=== PATIENT | male | born 1960 | race Caucasian/White ===

== ENCOUNTER 2023-03-14 09:20 | Outpatient (OUT) | payer OTHER, SELFPAY ==
--- NOTE | 2023-03-14 09:40 | PM.CN ---
Consult Note: HPI Data of Consult Patient: known to practice within the last 3 years Consult date: 03/14/23 Requesting Physician: OSCAR YU NP Primary Care Provider: Romario Bronson MD Consult Narrative Narrative: He is here for f/u of back pain . He saw neurosurgeon since last visit, approximately 1 month ago. Consult notes not available for my review. He also saw ortho who is doing hip injection 04/18/23. Loss of bladder control x3 on 03/09/23, but no episodes since. He states he was doing a lot of bending over before the incontinence occurred. Medication regimen is assisting patient with ability to complete ADLs. We discussed getting LS MRI d/t bout of incontinence and he is agreeable. he denies saddle anesthesia. Main pain is lumbar vertebral area. He does have numbness and cold feeling bilat legs that he states is not new. No saddle anesthesia. cc:: CC: OSCAR YU NP Review of Systems ROS Status of ROS 10 or more systems reviewed and unremarkable except as noted in history and below Musculoskeletal Reports: back pain Exam Constitutional Documenting provider has reviewed patient's vital signs: yes Common normals: no apparent distress, average body habitus, oriented x3, healthy appearing, alert and well nourished General appearance: cooperative and well developed Orientation/consciousness: Yes awake, Yes oriented to person, Yes oriented to place, Yes oriented to time and Yes confused HENVA Common normals: normocephalic, nasal mucous membranes and turbinates normal and moist oral mucous membranes Respiratory Common normals: normal respiratory effort, no retractions and no use of accessory muscles Effort & inspection: able to speak in complete sentences and symmetric chest movement Back & Pelvis Lumbar spine/lower back: normal to inspection, lumbar ROM normal, pain with ROM, lumbar spinal tenderness, straight leg raise positive right and straight leg raise positive left Extremity Common normals: normal to inspection, normal capillary refill and no pedal edema Other: muscle strength bilat LE 5/5 with intact sensation. Assessment and Plan Assessment and Plan (1) Lumbar radiculopathy: (2) Lumbar stenosis: (3) Incontinence of urine: Plan Lumbar MRI to r/o cauda equina, refill percocet, try tumeric OTC, narcan rx
== END 2023-03-14 09:21 | disposition home or self-care (01) ==
PROVIDERS: PCP Family Medicine; Visit Provider Nurse Practitioner
DX: M54.16 Radiculopathy, lumbar region (principal); M48.061 Spinal stenosis, lumbar region without neurogenic claudication; R32 Unspecified urinary incontinence
CPT/HCPCS: G0463

== ENCOUNTER 2023-03-28 13:32 | Outpatient (OUT) | payer OTHER, SELFPAY ==
--- NOTE | 2023-03-28 13:39 | MR_ITS ---
[address] [address] Patient Name: AJ MORA MRN: [id number] date: 1960 Sex: M Assigned Patient Location: MRI Current Patient Location: MRI Accession/Order Number: [id number] Exam Date: 03/28/2023 13:45 Report Date: 03/30/2023 08:05 At the request of: OSCAR YU Procedure: MR lumbar spine wo con EXAMINATION: MR lumbar spine wo con HISTORY: Lumbar stenosis, urinary incontinence COMPARISON: No relevant comparison available. TECHNIQUE: A variety of imaging planes and parameters were utilized for visualization of suspected pathology. FINDINGS: For the purposes of numbering, sagittal T2 image # 8 extends from the T11 vertebral body superiorly to the S2-S3 level inferiorly. PARASPINAL AREA: Normal with no visible mass. BONES: Normal alignment with no acute fracture or spondylolisthesis. Very heterogeneous appearance of the vertebral bodies likely related to aging and/or degenerative changes. Moderate diffuse spondylosis and facet osteoarthropathy. Posterior decompression L2-L5 CORD/CAUDA EQUINA: Normal caliber, contour, and signal intensity. DISC LEVELS: 12-L1: Moderate degenerative disc disease is present without visible neural impingement. L1-L2: Moderate disc space narrowing and disc desiccation. Moderate posterior disc/osteophyte complex with broad-based disc herniation the protrusion type extending up to 4.6 mm. No central canal or left foraminal stenosis. Mild to moderate narrowing of the right neural foramen best seen on sagittal image 12 L2-L3: Moderate to severe disc space narrowing and disc desiccation. Moderate posterior disc/osteophyte complex. No central or foraminal stenosis L3-L4: Disc collapse with endplate sclerosis. Moderate diffuse disc/osteophyte complex. Posterior disc herniation of the protrusion type extending up to 5.6 mm sagittal image #8. No central canal stenosis. Moderate to severe right and moderate left foraminal stenosis L4-L5: Moderate disc space narrowing and disc desiccation. Posterior broad-based disc herniation the protrusion type extending posteriorly up to 4.1 mm, sagittal image #7. No central canal stenosis. Moderate to severe right and mild left foraminal stenosis L5-S1: Moderate degenerative disc disease is present without visible neural impingement. IMPRESSION: Extensive degenerative changes resulting in foraminal stenosis at multiple levels as detailed above Electronically authenticated by: LUIS CARLOS ENCARNACION Date: 03/30/2023 08:05
== END 2023-03-28 13:33 | disposition home or self-care (01) ==
LOC: MRI 13:33
PROVIDERS: PCP Family Medicine; Visit Provider Nurse Practitioner
DX: M48.061 Spinal stenosis, lumbar region without neurogenic claudication (principal); R32 Unspecified urinary incontinence
CPT/HCPCS: 72148

== ENCOUNTER 2023-05-21 11:14 | Outpatient (OUT) | payer OTHER, SELFPAY ==
--- NOTE | 2023-05-21 12:52 | P.CN_ITS ---
Consult Note: HPI Data of Consult Patient: known to practice within the last 3 years Requesting Physician: Isabelle Maria NP Primary Care Provider: Romario Bronson MD Consult Narrative Reason for consult: f/u chronic low back pain with bilateral leg weakness/numbness Narrative: Noel Alva is a pleasant 62 year old male that presents to our office for evaluation and management of chronic low back pain with bilateral leg weakness/numbness. Patient historically has had facet blocks in the cervical and lumbar spine, as well as numerous FARHAN in lumbar region. Last FARHAN to lumbar was 09/26. Patient continues to follow with Dr Chappell neurosurgeon for chronic low back pain with bilateral leg weakness/numbness. Patient would like to discuss i njections at todays visit. cc:: CC: Isabelle Maria NP Review of Systems ROS Status of ROS 10 or more systems reviewed and unremarkable except as noted in history and below Musculoskeletal Reports: back pain and muscle weakness Hematologic/Lymphatic Reports: easy bruising (hx anemia, encouraged follow up with PCP) [facility] Medical History (Updated 05/21/23 @ 13:02 by Isabelle Maria NP) Surgical History Meds Home Medications and Allergies Home Medications Medication Instructions Recorded Confirmed Type albuterol sulfate 90 mcg/actuation 1 inh inhalation Q6H 03/14/23 03/14/23 History aerosol inhaler (ProAir HFA) aspirin 81 mg tablet,delayed 81 mg PO DAILY 03/14/23 03/14/23 History release atorvastatin 40 mg tablet 40 mg PO DAILY 03/14/23 03/14/23 History cholecalciferol (vitamin D3) 50 50 mcg PO DAILY 03/14/23 03/14/23 History mcg (2,000 unit) capsule ferrous sulfate 325 mg (65 mg 325 mg PO BID 03/14/23 03/14/23 History iron) tablet (Niels-Time) isosorbide mononitrate 30 mg 30 mg PO DAILY 03/14/23 03/14/23 History tablet,extended release 24 hr lisinopril 40 mg tablet 40 mg PO DAILY 03/14/23 03/14/23 History meloxicam 15 mg tablet 15 mg PO DAILY 03/14/23 03/14/23 History metoprolol tartrate 25 mg tablet 25 mg PO BID 03/14/23 03/14/23 History nitroglycerin 0.4 mg sublingual 0.4 mg sublingual Q5M PRN chest 03/14/23 03/14/23 History tablet (Nitrostat) pain oxycodone-acetaminophen 5 mg-325 1 tab PO TID 03/14/23 03/14/23 History mg tablet (Endocet) pantoprazole 40 mg tablet,delayed 40 mg PO DAILY 03/14/23 03/14/23 History release (Protonix) pregabalin 100 mg capsule (Lyrica) 100 mg PO BID 03/14/23 03/14/23 History sucralfate 1 gram tablet (Carafate) 1 g PO Q6H 03/14/23 03/14/23 History tizanidine 4 mg capsule 4 mg PO .HS PRN muscle spasticity 03/14/23 03/14/23 History oxycodone-acetaminophen 5 mg-325 1 tab PO TID PRN pain #90 tabs 05/12/23 Rx mg tablet (Percocet) pregabalin 50 mg capsule (Lyrica) 50 mg PO BID #60 caps 05/21/23 Rx Allergies Allergy/AdvReac Type Severity Reaction Status Date / Time No Known Drug Allergies Allergy Verified 03/14/23 13:38 Exam Constitutional Common normals: no apparent distress, average body habitus, oriented x3, healthy appearing, alert and well nourished General appearance: cooperative [facility] Common normals: normocephalic Head and scalp: normocephalic Mouth: oral and palatal mucosa normal Eye Common normals: PERRL Pupil: PERRL Neck & C-Spine Common normals: full ROM General: normal visual inspection Cervical spine: pain with cervical ROM Chest Common normals: inspection of chest normal Respiratory Common normals: normal respiratory effort, no retractions and no use of accessory muscles Back & Pelvis Common normals: thoracic and lumbar spine normal to inspection and no thoracic nor lumbar tenderness Lumbar spine/lower back: ROM limited, pain with ROM (positive facet loading bilaterally L>R), straight leg raise positive right and straight leg raise positive left Sacroiliac joints: SI joints normal Extremity Common normals: normal to inspection and full ROM Right lower extremity: lower leg Left lower extremity: lower leg Other: patient has 3/5 strength in RLE 4/5 strength in LLE. Patient reports current weakness bilaterally and numbness. Equal sensation bilaterally, reflexes intact. No change in skin color or temp in BLE Neuro Common normals: oriented x3, CN's II-XII intact bilaterally, moves all extremities, no focal motor deficits, no sensory deficits noted and deep tendon reflexes 2+ bilaterally Sensorium/orientation: alert Speech: speech normal Gait (neuro): antalgic Motor exam: no movement abnormalities noted and strength abnormal Psych Common normals: mental status grossly normal, thought process normal, co operative, affect normal, speech normal and activity/motor behavior normal Speech: normal speech Thought process: normal thought process Assessment and Plan Assessment and Plan (1) Lumbar stenosis: (2) Lumbar radiculopathy: (3) Chronic pain syndrome: Assessment and Plan: refill and continue lyrica 50mg BID The patient was advised that U.S. Food and Drug Administration (FDA) is warning that respiratory depression may occur in patients using gabapentin (Neurontin, Gralise, Horizant) or pregabalin (Lyrica, Lyrica CR) who have respiratory risk factors. These include the use of opioid pain medicines and other drugs that depress the central nervous system, and conditions such as chronic obstructive pulmonary disease (COPD) that reduce lung function. The elderly are also at higher risk.? (4) intermediate (current) use of opiate analgesic: Assessment and Plan: I have checked an [place]AR[place] report on this patient today and there are no aberrancies noted in the prescribing history.?? A drug screen was completed and reviewed within the last year, and if there has not been a drug screen completed we ordered one today to monitor higher risk, state monitored pain medication use. Plan Patient to continue to f/u with Dr Chappell, from conversation with pt he was not a surgical candidate previously this year Proceed with bilateral L4-5 FARHAN based on todays examination, patient cannot describe a consistent radicular pattern and I have reviewed most recent MRI findings which did not include any red flag findings f/u after FARHAN will consider repeating lumbar facet RFAs in the future if patient continues to have axial back pain
== END 2023-05-21 11:15 | disposition home or self-care (01) ==
PROVIDERS: PCP Family Medicine; Visit Provider Nurse Practitioner
DX: M54.16 Radiculopathy, lumbar region (principal); M48.061 Spinal stenosis, lumbar region without neurogenic claudication; G89.4 Chronic pain syndrome
CPT/HCPCS: G0463

== ENCOUNTER 2023-06-16 08:11 | Day surgery (SDC) | payer OTHER, SELFPAY ==
[2023-06-16 08:39] VITALS: BP 145/83; PULSE 67; RESP 16; TEMP 36.8; O2SAT 97
[2023-06-16] MEDS: BUPIVACAINE HCL 0.25% PF 25 MG/10 ML VIAL INJ (09:39)
[2023-06-16] MEDS: IOHEXOL 240 MG/ML - 10 ML VIAL INJ (09:40)
[2023-06-16] MEDS: LIDOCAINE HCL 2% PF 100 MG/5 ML VIAL INJ (09:40)
[2023-06-16] MEDS: TRIAMCINOLONE ACETONIDE 40 MG/ML VIAL INJ (09:40)
--- NOTE | 2023-06-16 09:42 | W.PM.PROCNOT ---
Date of procedure: 06/16/23 Pre-op diagnosis: Lumbar stenosis with neurogenic claudication Post-op diagnosis: same as pre-op Procedure: Procedure: Bilateral L4-5 transforaminal epidural steroid injection Medications: Bupivacaine 0.25% 2cc, kenalog 80mg The patient was seen and examined in the preoperative holding area.? Informed consent was obtained and placed on the chart.? Patient was brought to the medical procedure unit and placed in the prone position where a timeout was completed verifying the correct patient, procedure site, position, and planned special equipment using sterile aseptic technique.? Under direct fluoroscopic visualization a 25-gauge Quincke tipped spinal needle was advanced at level left L4-5 to the designated neural foramen where contrast dye was injected to show adequate spread.? There was no evidence of vascular or adverse uptake.? Epidural spread was appreciated.? The above-mentioned injectate was then placed in a 1.5 mL aliquot preceded by negative aspiration.? The needle was removed. The same procedure, at the same level, was completed on the opposite side. ? Patient was taken to the postprocedural recovery area and monitored for an appropriate length of time before found suitable for discharge in the accompaniment of a responsible adult. Anesthesia: Local Surgeon: Mo Gongora Pathology: none sent Condition: stable Disposition: no change
[2023-06-17 10:48] VITALS: BP 166/95; BP 169/102; PULSE 59; PULSE 72; RESP 18; O2SAT 96; O2SAT 97
== END 2023-06-16 09:45 | disposition home or self-care (01) ==
PROVIDERS: PCP Family Medicine; Visit Provider Anesthesiology
DX: M48.062 Spinal stenosis, lumbar region with neurogenic claudication (principal)
CPT/HCPCS: 64483; Q9966

== ENCOUNTER 2023-06-26 12:46 | Outpatient (OUT) | payer OTHER, SELFPAY ==
--- NOTE | 2023-06-26 13:01 | P.CN_ITS ---
Consult Note: HPI Data of Consult Patient: known to practice within the last 3 years Requesting Physician: Isabelle Maria NP Primary Care Provider: Romario Bronson MD Consult Narrative Reason for consult: f/u Narrative: Noel Alva a pleasant 62 year old male presents for evaluation of chronic low back pain with radiculopathy and bilateral neuropathy. Patient reporting improvement in low back pain since L4-5 TFESI, but continues to have persistent intense neuropathic pain in BLE. Today rating pain 7-8 in bilateral legs and feet pins and needles . Patient continues to follow up with NS, seeing a new doctor August 14 Dr Wallace. cc:: CC: Isabelle Maria NP Review of Systems ROS Status of ROS 10 or more systems reviewed and unremarkable except as noted in history and below Musculoskeletal Reports: back pain and extremity pain [facility] Medical History (Updated 06/26/23 @ 13:15 by Isabelle Maria NP) Surgical History Meds Home Medications and Allergies Home Medications Medication Instructions Recorded Confirmed Type albuterol sulfate 90 mcg/actuation 1 inh inhalation Q6H 03/14/23 06/16/23 History aerosol inhaler (ProAir HFA) aspirin 81 mg tablet,delayed 81 mg PO DAILY 03/14/23 06/16/23 History release atorvastatin 40 mg tablet 40 mg PO DAILY 03/14/23 06/16/23 History cholecalciferol (vitamin D3) 50 50 mcg PO DAILY 03/14/23 06/16/23 History mcg (2,000 unit) capsule ferrous sulfate 325 mg (65 mg 325 mg PO BID 03/14/23 06/16/23 History iron) tablet (Niels-Time) isosorbide mononitrate 30 mg 30 mg PO DAILY 03/14/23 06/16/23 History tablet,extended release 24 hr lisinopril 40 mg tablet 40 mg PO DAILY 03/14/23 06/16/23 History meloxicam 15 mg tablet 15 mg PO DAILY 03/14/23 06/16/23 History metoprolol tartrate 25 mg tablet 25 mg PO BID 03/14/23 06/16/23 History nitroglycerin 0.4 mg sublingual 0.4 mg sublingual Q5M PRN chest 03/14/23 06/16/23 History tablet (Nitrostat) pain oxycodone-acetaminophen 5 mg-325 1 tab PO TID 03/14/23 06/16/23 History mg tablet (Endocet) pantoprazole 40 mg tablet,delayed 40 mg PO DAILY 03/14/23 06/16/23 History release (Protonix) pregabalin 100 mg capsule (Lyrica) 100 mg PO BID 03/14/23 06/16/23 History sucralfate 1 gram tablet (Carafate) 1 g PO Q6H 03/14/23 06/16/23 History tizanidine 4 mg capsule 4 mg PO .HS PRN muscle spasticity 03/14/23 06/16/23 History oxycodone-acetaminophen 5 mg-325 1 tab PO TID PRN pain #90 tabs 05/12/23 06/16/23 Rx mg tablet (Percocet) pregabalin 50 mg capsule (Lyrica) 50 mg PO BID #60 caps 05/21/23 06/16/23 Rx oxycodone-acetaminophen 5 mg-325 1 tab PO TID PRN pain #90 tabs 06/11/23 06/16/23 Rx mg tablet (Percocet) Allergies Allergy/AdvReac Type Severity Reaction Status Date / Time No Known Drug Allergies Allergy Verified 06/16/23 08:36 Exam Constitutional Documenting provider has reviewed patient's vital signs: yes Common normals: no apparent distress, oriented x3, healthy appearing, alert and well nourished General appearance: cooperative HENSD Common normals: normocephalic, hearing grossly normal bilaterally and moist oral mucous membranes Head and scalp: normocephalic Eye Common normals: PERRL Pupil: PERRL Neck & C-Spine Common normals: full ROM General: normal visual inspection Chest Common normals: inspection of chest normal Respiratory Common normals: normal respiratory effort, no retractions and no use of accessory muscles Back & Pelvis Lumbar spine/lower back: ROM limited, pain with ROM and straight leg raise negative bilaterally Other: positive facet loading bilaterally Extremity Common normals: normal to inspection and full ROM Other: bilateral sharp tingling pins and needles sensation per pt negative physical exam Neuro Common normals: oriented x3, CN's II-XII intact bilaterally, moves all extremities, no focal motor deficits, no sensory deficits noted and deep tendon reflexes 2+ bilaterally Sensorium/orientation: alert Motor exam: strength 5/5 throughout and no movement abnormalities noted Psych Common normals: mental status grossly normal, thought process normal, cooperative, affect normal, speech normal and activity/motor behavior normal Speech: normal speech Thought process: normal thought process Results Additional Findings Additional findings: I have checked an OAR[place] report on this patient today and there are no aberrancies noted in the prescribing history.?? A drug screen was completed and reviewed within the last year, and if there has not been a drug screen completed we ordered one today to monitor higher risk, state monitored pain medication use. As part of providing excellent, safe, comprehensive care, the following was completed at our patient's visit: 1. A medication reconciliation and review to ensure accurate knowledge of current/active medications, including asking our patients to inform us about any [id number] medications or herbal remedies/nutritional supplements/alternative remedies. 2. A review to specifically ensure our patients have had annual screening for: elevated body mass index (BMI), tobacco use, screening for depression, and screening for unhealthy alcohol use. When screening is concerning, patients are provided with education and the specific recommendation to discuss the concerning health issue and treatment options with their primary care provider. Assessment and Plan Assessment and Plan (1) Polyneuropathy: (2) long-term (current) use of opiate analgesic: (3) Chronic pain syndrome: (4) Lumbar stenosis: (5) Lumbar radiculopathy: (6) Lumbar spondylosis: Plan continue to f/u with NS continue percocet, meloxicam, and tizanidine, tolerating well without side effects increase lyrica 100mg BID, patient will call at next fill to discuss effectiveness consider increasing to 100mg TID if needed f/u 2 months, after NS appointment 08/14/23
== END 2023-06-26 12:47 | disposition home or self-care (01) ==
LOC: PM 12:46
PROVIDERS: PCP Family Medicine; Visit Provider Nurse Practitioner
DX: M47.26 Other spondylosis with radiculopathy, lumbar region (principal); M48.061 Spinal stenosis, lumbar region without neurogenic claudication; Z79.891 Long term (current) use of opiate analgesic; G62.9 Polyneuropathy, unspecified; G89.4 Chronic pain syndrome
CPT/HCPCS: G0463

== ENCOUNTER 2023-08-21 12:45 | Outpatient (OUT) | payer OTHER, SELFPAY ==
--- NOTE | 2023-08-21 13:31 | PM.CN ---
Consult Note: HPI Data of Consult Patient: known to practice within the last 3 years Requesting Physician: Isabelle Maria NP Primary Care Provider: Romario Bronson MD Consult Narrative Reason for consult: f/u Narrative: Noel Alva a pleasant 62 year old male presents for evaluation of chronic low back pain with radiculopathy and bilateral neuropathy. Patient following with Dr Melo (NS) for right SIJ fusion, Dr Sutton (sports medicine), and Dr Wallace (Neurology). Today patient rating pain 7/10 in right low back hip buttock and bilateral legs. cc:: CC: Isabelle Maria NP Review of Systems ROS Status of ROS 10 or more systems reviewed and unremarkable except as noted in history and below Musculoskeletal Reports: back pain PFSH PFSH Medical History (Updated 06/26/23 @ 13:15 by Isabelle Maria NP) Anemia ?D64.9 - Anemia, unspecified (ICD-10) Aortic atherosclerosis ?I70.0 - Atherosclerosis of aorta (ICD-10) Asthma ?J45.909 - Unspecified asthma, uncomplicated (ICD-10) Back pain ?M54.9 - Dorsalgia, unspecified (ICD-10) Hypertension ?I10 - Essential (primary) hypertension (ICD-10) Neck pain ?M54.2 - Cervicalgia (ICD-10) Numbness and tingling ?R20.0 - Anesthesia of skin (ICD-10) ?R20.2 - Paresthesia of skin (ICD-10) Surgical History H/O heart artery stent ?Z95.5 - Presence of coronary angioplasty implant and graft (ICD-10) H/O laminectomy ?Z98.890 - Other specified postprocedural states (ICD-10) Meds Home Medications and Allergies Home Medications Medication Instructions Recorded Confirmed Type albuterol sulfate 90 mcg/actuation 1 inh inhalation Q6H 03/14/23 06/16/23 History aerosol inhaler (ProAir HFA) aspirin 81 mg tablet,delayed 81 mg PO DAILY 03/14/23 06/16/23 History release atorvastatin 40 mg tablet 40 mg PO DAILY 03/14/23 06/16/23 History cholecalciferol (vitamin D3) 50 50 mcg PO DAILY 03/14/23 06/16/23 History mcg (2,000 unit) capsule ferrous sulfate 325 mg (65 mg 325 mg PO BID 03/14/23 06/16/23 History iron) tablet (Niels-Time) isosorbide mononitrate 30 mg 30 mg PO DAILY 03/14/23 06/16/23 History tablet,extended release 24 hr lisinopril 40 mg tablet 40 mg PO DAILY 03/14/23 06/16/23 History meloxicam 15 mg tablet 15 mg PO DAILY 03/14/23 06/16/23 History metoprolol tartrate 25 mg tablet 25 mg PO BID 03/14/23 06/16/23 History nitroglycerin 0.4 mg sublingual 0.4 mg sublingual Q5M PRN chest 03/14/23 06/16/23 History tablet (Nitrostat) pain oxycodone-acetaminophen 5 mg-325 1 tab PO TID 03/14/23 06/16/23 History mg tablet (Endocet) pantoprazole 40 mg tablet,delayed 40 mg PO DAILY 03/14/23 06/16/23 History release (Protonix) pregabalin 100 mg capsule (Lyrica) 100 mg PO BID 03/14/23 06/16/23 History sucralfate 1 gram tablet (Carafate) 1 g PO Q6H 03/14/23 06/16/23 History tizanidine 4 mg capsule 4 mg PO .HS PRN muscle spasticity 03/14/23 06/16/23 History oxycodone-acetaminophen 5 mg-325 1 tab PO TID PRN pain #90 tabs 05/12/23 06/16/23 Rx mg tablet (Percocet) pregabalin 50 mg capsule (Lyrica) 50 mg PO BID #60 caps 05/21/23 06/16/23 Rx oxycodone-acetaminophen 5 mg-325 1 tab PO TID PRN pain #90 tabs 06/11/23 06/16/23 Rx mg tablet (Percocet) oxycodone-acetaminophen 5 mg-325 1 tab PO TID PRN pain #90 tabs 07/07/23 Rx mg tablet (Percocet) oxycodone-acetaminophen 5 mg-325 1 tab PO TID PRN pain #90 tabs 08/11/23 Rx mg tablet (Percocet) oxycodone-acetaminophen 5 mg-325 1 tab PO TID PRN pain #90 tabs 08/12/23 Rx mg tablet (Percocet) Allergies Allergy/AdvReac Type Severity Reaction Status Date / Time No Known Drug Allergies Allergy Verified 06/16/23 08:36 Exam Constitutional Documenting provider has reviewed patient's vital signs: yes Common normals: no apparent distress, oriented x3, healthy appearing, alert and well nourished General appearance: cooperative HENMT Common normals: normocephalic, hearing grossly normal bilaterally and moist oral mucous membranes Head and scalp: normocephalic Eye Common normals: PERRL Pupil: PERRL Neck & C-Spine Common normals: full ROM General: normal visual inspection Chest Common normals: inspection of chest normal Respiratory Common normals: normal respiratory effort, no retractions and no use of accessory muscles Back & Pelvis Lumbar spine/lower back: ROM limited, pain with ROM and straight leg raise negative bilaterally Other: positive facet loading bilaterally Extremity Common normals: normal to inspection and full ROM Other: bilateral sharp tingling pins and needles sensation per pt negative physical exam Neuro Common normals: oriented x3, CN's II-XII intact bilaterally, moves all extremities, no focal motor deficits, no sensory deficits noted and deep tendon reflexes 2+ bilaterally Sensorium/orientation: alert Motor exam: strength 5/5 throughout and no movement abnormalities noted Psych Common normals: mental status grossly normal, thought process normal, cooperative, affect normal, speech normal and activity/motor behavior normal Speech: normal speech Thought process: normal thought process Assessment and Plan Assessment and Plan (1) Polyneuropathy: (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 I feel these medications are improving the patient's quality of life and allow them to tolerate activities of daily living as well as participate in recreational activity.? The patient does not report intolerable side effects. The patient is NOT opioid naive and non-pharmacologic and non-opioid treatment has failed to significantly relieve the patient's pain and improve functionality. The patient has a diagnosis that is related to a somatic or visceral pain etiology. ? ?? I reviewed with the patient the potential risks and side effects with the use of? opioid medications including but not limited to respiratory depression,? sedation, and even . I verified the patient has access to naloxone should? these effects occur. I advised the patient to avoid the use of any other? sedation substances including alcohol, THC, and benzodiazepines while? taking opioid medications due to the risk of compounding side effects and? detrimental outcomes. I reviewed the FINANCE ATTORNEY, pain treatment agreement, urine? drug screen, and opioid start talking forms. The patient was advised to let? their family know they had Naloxone in case they would need to administer? the medication.? ?? A drug screen was completed within the last year, and no aberrancies were noted regarding their use of controlled substances. The patient understands they are subject to the terms and conditions of the pain contract that they have signed. ? ?? I have checked an [place] report on this patient today and there are no aberrancies noted in the prescribing history.? 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 If he is having surgery and needs post op pain medications he is to call us to discuss this. f/u 3 months for medication management
== END 2023-08-21 12:46 | disposition home or self-care (01) ==
LOC: PM 12:46
PROVIDERS: PCP Family Medicine; Visit Provider Nurse Practitioner
DX: G62.9 Polyneuropathy, unspecified (principal); Z79.891 Long term (current) use of opiate analgesic; G89.4 Chronic pain syndrome; M47.816 Spondylosis without myelopathy or radiculopathy, lumbar region; M48.061 Spinal stenosis, lumbar region without neurogenic claudication; M54.16 Radiculopathy, lumbar region
CPT/HCPCS: G0463

== ENCOUNTER 2023-09-01 12:52 | Outpatient (OUT) | payer OTHER, SELFPAY ==
--- NOTE | 2023-09-01 13:48 | CA_ITS ---
Patient Name: AJ MORA MR#: [id number] : 1960 Exam Date: 09/01/2023 Ordering Doctor: DAVIDSON SHARP CNP ECHOCARDIOGRAM REPORT PROCEDURE: CA ECHO DOPPLER COMPLETE INDICATIONS: Pre op evaluation COMPARISON: None. DESCRIPTION: COMPLETE ECHOCARDIOGRAM Real-time transthoracic echocardiography with 2D, M-mode, spectral and color flow Doppler performed. QUALITY: Technical quality was good. LEFT VENTRICLE: Normal chamber size. Normal left ventricular wall thickness. LV EF: Global left ventricular systolic function is normal. Calculated left ventricular ejection fraction is 66%. DIASTOLIC: Normal diastolic function. ATRIAL SEPTUM: Not well-visualized. LEFT ATRIUM: Normal chamber size. RIGHT ATRIUM: Normal chamber size. RIGHT VENTRICLE: Normal chamber size. Normal right ventricular systolic function. TRICUSPID VALVE: Normal mobility and thickness. Trivial regurgitation. No evidence of pulmonary hypertension. RVSP 28mmHg MITRAL VALVE: Normal mobility and thickness. No evidence of mitral valve stenosis. There is no mitral annular calcification. Trivial mitral regurgitation. AORTIC VALVE: Normal trileaflet appearance. No visible sclerosis. Normal leaflet mobility. No evidence of aortic valve stenosis. Trivial aortic regurgitation. AORTIC ROOT: Normal diameter and appearance. PULMONIC VALVE: Normal thickness and mobility. No stenosis. Trivial regurgitation. PERICARDIUM: No evidence of pericardial effusion. IVC: Collapses with inspirations. Normal size. CONCLUSION: 1. Global left ventricular systolic function is normal; visually estimated ejection fraction is 55 to 60% 2. 3. There is normal in size and systolic function 4. Normal diastolic function 5. No significant valvular abnormalities Adult Echocardiography Procedure Report Left Ventricle LVEDD (3.7 - 5.6 cm): 4.24 cm LVESD (2.2 - 4.0 cm): 2.75 cm LVIVS thickness (0.6 - 1.2 cm): 1.11 cm LVPW thickness (0.5 - 1.0 cm): 1.06 cm e': 0.10 m/s E - e': 4.09 LVOT Max Gradient: 4.69 mm[Hg] LVOT Area (cm2): 1.08 m/s Peak Velocity (LVOT): 1.08 m/s Mean Velocity (LVOT): 0.67 m/s LVOT Diameter 1.94 cm Left Ventricular Ejection Fraction: 65.93 % Left Atrium LA Volume Index (2D A2C): 27.30 ml/m2 Left Atrium Systolic Dimension: 3.12 cm Mitral Valve MV E to A Ratio: 0.75 Mitral Valve A-Wave Peak Velocity: 0.54 m/s Mitral Valve E-Wave Peak Velocity: 0.40 m/s Right Ventricle RV Internal Diastolic Dimension: 3.90 cm Aorta AO Root Diam: 3.26 cm Ascending Ao Diam: 3.00 cm Aortic Valve AoV Area (Peak Reji): 2.17 cm2, 2.17 cm2 AoV Area (VTI): 2.57 cm2, 2.57 cm2 Peak Velocity(Antegrade Flow): 1.47 m/s Peak Gradient(Antegrade Flow): 8.69 mm[Hg] Mean Velocity(Antegrade Flow): 1.01 m/s Mean Gradient(Antegrade Flow): 4.68 mm[Hg] Velocity Time Integral: 27.96 cm Tricuspid Valve Peak Velocity (Regurgitant Flow): 2.18 m/s, 2.50 m/s, 2.42 m/s Pulmonic Valve Mean Gradient: 3.23 mm[Hg] Mean Velocity: 0.85 m/s Peak Velocity: 1.19 m/s, 1.23 m/s Peak Gradient: 5.69 mm[Hg], 6.00 mm[Hg] Right Atrium Right Atrium Systolic Pressure: 44.98 ml, 44.98 ml Dictated by: Jonn Connell M.D. on 09/02/2023 at 16:17 Approved by: Jonn Connell M.D. on 09/02/2023 at 16:20
== END 2023-09-01 12:53 | disposition home or self-care (01) ==
LOC: CARD 12:52
PROVIDERS: PCP Family Medicine; Visit Provider Nurse Practitioner Family
DX: Z01.810 Encounter for preprocedural cardiovascular examination (principal)
CPT/HCPCS: 93306

== ENCOUNTER 2023-09-12 08:10 | Outpatient (OUT) | payer OTHER, SELFPAY ==
--- NOTE | 2023-09-12 | PCN_ITS ---
CARDIAC STRESS TEST Requesting Physician: Procedure Date: 09/12/2023 This was a Lexiscan stress test with myocardial perfusion imaging performed at the [facility] on 09/12/2023. Informed consent was obtained. The patient was attached to electrocardiographic monitoring. Intravenous line was secured. Lexiscan 0.4 mg was administered intravenously and this was followed by administration of Cardiolite. The patient went on to obtain cardiac perfusion imaging. Resting heart rate was 63 BPM and maximum heart rate was 104 BPM. Resting blood pressure was 136/88 and maximum blood pressure was 158/88. Resting ECG showed evidence of sinus rhythm with no arrhythmia and no ST changes. Following infusion of Lexiscan, there was evidence of occasional PVCs and PACs but no ST changes were seen. Final ECG was compatible to baseline. SUMMARY OF THE FINDINGS: 1. Negative Lexiscan stress test for ischemic ECG changes. 2. Myocardial perfusion imaging will be reported separately. MTDD
--- NOTE | 2023-09-12 08:00 | NM_ITS ---
Patient Name: AJ MORA MR#: [id number] : 1960 Exam Date: 09/12/2023 Ordering Doctor: DAVIDSON SHARP CNP RADIOLOGY REPORT PROCEDURE: NM CLAUDIA PERF SPECT REST STR COMPARISON: None. INDICATIONS: Encounter for preprocedural cardiovascular examination TECHNIQUE: Exam Description: Stress/Rest one day protocol gated SPECT Rest Imagin.7 mCi Tc-99m Cardiolite IV on 09/12/2023 Stress Imaging 32.0 mCi Tc-99m Cardiolite IV on 09/12/2023 Exercise Protocol: 0.4 mg Lexiscan given IV Heart Rate (bpm): Rest: 65 Max: 104 PMHR: 65 Blood Pressure: Rest: 136/88 Max: 158/88 Symptoms: Rest and peak stress ECG findings were normal and the exercise portion of the study was normal per attending physician Dr. Marin . For more details please see separate cardiac stress test report. FINDINGS: QUALITY OF STUDY: Good. PERFUSION DEFECT: None. LOCATION: N/A SIZE: N/A. SEVERITY: N/A. TYPE: N/A. WALL MOTION: Normal. LV SIZE: Normal. 84 mL. TID / TCD: None; 0.8 LVEF: Normal. Calculated EF 78%. SUMMARY: Myocardial perfusion imaging study is NORMAL. CONCLUSION: 1. No reversible ischemia, normal myocardial perfusion scan 2. Normal exercise test Dictated by: Juan Darling MD on 09/12/2023 at 13:28 Approved by: Juan Darling MD on 09/12/2023 at 13:30
[2023-09-12] MEDS: REGADENOSON 0.4 MG/5 ML SYRINGE IV (10:27)
== END 2023-09-12 08:11 | disposition home or self-care (01) ==
LOC: NM 08:10
PROVIDERS: PCP Family Medicine; Visit Provider Nurse Practitioner Family
DX: Z01.810 Encounter for preprocedural cardiovascular examination (principal)
CPT/HCPCS: 78452; 93017; A9500; J2785

== ENCOUNTER 2023-10-03 11:25 | Outpatient (OUT) | payer OTHER, SELFPAY ==
--- NOTE | 2023-10-03 11:37 | XR_ITS ---
The [address] [address] Patient Name: AJ MORA MRN: [id number] date: 1960 Sex: M Assigned Patient Location: [facility] Current Patient Location: Accession/Order Number: [id number] Exam Date: 10/03/2023 11:41 Report Date: 10/06/2023 16:43 At the request of: NON-STAFF PHYSICIAN Procedure: XR lumbar spine 2-3V EXAM: XR lumbar spine 2-3V HISTORY: Sacroillitis M46.1 COMPARISON: None. TECHNIQUE: AP and lateral views FINDINGS: There are findings associated with the history of right sacroiliac joint fusion with placement of 3 fixation devices across the joint. Lumbar vertebral bodies are normal in height. There is disc space narrowing at each lumbar level with anterior osteophytosis at L1-2, L2-3, L3-4, and L4-5. There is facet arthropathy at L2-3, L3-4, L4-5, and L5-S1. Aortoiliac calcification is noted. XR/XR lumbar spine 2-3V IMPRESSION: Multilevel lumbar spondylosis. Findings associated with right sacroiliac fusion. Electronically authenticated by: Sherry DALEY Date: 10/06/2023 16:43
== END 2023-10-03 11:26 | disposition home or self-care (01) ==
PROVIDERS: PCP Family Medicine
DX: M46.1 Sacroiliitis, not elsewhere classified (principal); M47.816 Spondylosis without myelopathy or radiculopathy, lumbar region
CPT/HCPCS: 72100

== ENCOUNTER 2023-11-19 12:35 | Outpatient (OUT) | payer OTHER, SELFPAY ==
--- OUTSIDE RECORDS SUMMARY | 2023-11-19 12:40 | XMS_ITS | CCD ---
Author Name Unknown Address [address] [place] [address] Organization [facility] Care Team Providers Care Sail Maker Name Role Phone PHYSICIAN, DEFAULT Unavailable Unavailable PHYSICIAN, DEFAULT Unavailable Unavailable PHYSICIAN, DEFAULT Unavailable Unavailable PHYSICIAN, DEFAULT Unavailable Unavailable AHMAD, SHOWKAT Unavailable Unavailable AHMAD, SHOWKAT Unavailable Unavailable MELVI BATRES Unavailable Unavailable CANTU, MARY Unavailable Unavailable KAKIRILL, AMEER Unavailable Unavailable AiramereRomario davis Primary Care Provider Romario Man Primary Care Provider [phone] Romario Man MD Primary Care Provider ROMARIO MAN Primary Care Physician [phone] MAGDA PROVIDER, ROMARIO Referring Unavailab hemant NILJulian Vaca Attending Unavailable NILL, Julian Davis Attending Unavailable NILLJulian Attending Unavailable NILLJulian Attending Unavailable NADERER PROVIDER, ROMARIO Referring Unavailab Romario Morse MD Primary Care Provider MASSEY ., JULIANE Consulting Unavailable MASSEY ., JULIANE Admitting Unavailable MASSEY ., JULIANE Attending Unavailable NADAGUS, DR ROMARIO Waddell Primary Care Unavailable NADERER, DR ROMARIO Waddell Primary Care Unavailable SIEGAL, SHAHEEN Admitting Unavailable SIEGAL, SHAHEEN Attending Unavailable MASSEY ., JULAINE Admitting Unavailable MASSEY ., JULIANE Attending Unavailable ZIEBER, DR PEDRO PABLO Davis Consulting Unavailable NADERER, DR ROMARIO Waddell Primary Care Unavailable MASSEY ., JULIANE Consulting Unavailable AIRAMERESusan, DR ROMARIO Waddell Admitting Unavailable NADERER, DR ROMARIO Waddell Attending Unavailable NADERER, DR ROMARIO Waddell Consulting Unavailable NADERER, DR ROMARIO Waddell Primary Care Unavailable NILL ., DR JORDAN Attending Unavailable NILL ., DR JORDAN Consulting Unavailable NILL ., DR JORDAN Admitting Unavailable NADERER, DR ROMARIO Waddell Primary Care Unavailable NILL ., DR JORDAN Attending Unavailable NILL ., DR JORDAN Consulting Unavailable NILL ., DR JORDAN Admitting Unavailable NADERER, DR ROMARIO Waddell Primary Care Unavailable JULIANTREVON Consulting Unavailable MORGOS, DELFINO Consulting Unavailable GEMBUS, MARY Consulting Unavailable NADERER, DR ROMARIO Waddell Primary Care Unavailable SIEGAL, SHAHEEN Admitting Unavailable SIEGAL, SHAHEEN Attending Unavailable WEST, DR LUIS CARLOS Feldman Consulting Unavailable SIEGAL, SHAHEEN Consulting Unavailable MASSEY ., JULIANE Consulting Unavailable IBRAHIM ., DR NELSON Gordon Admitting Unavailable IBRAHIM ., DR NELSON Gordon Attending Unavailable NADERER, DR ROMARIO Waddell Primary Care Unavailable IBRAHIM ., DR NELSON Gordon Admitting Unavailable IBRAHIM ., DR NELSON Gordon Attending Unavailable NADERER, DR ROMARIO Waddell Primary Care Unavailable IBRAHIM ., DR NELSON Gordon Consulting Unavailable MASSEY ., JULIANE Consulting Unavailable IBRAHIM ., DR NELSON Gordon Admitting Unavailable IBRAHIM ., DR NELSON Gordon Attending Unavailable NADERER, DR ROMARIO Waddell Primary Care Unavailable IBRAHIM ., DR NELSON Gordon Consulting Unavailable DRIVER, KAREEM Consulting Unavailable IBRAHIM ., DR NELSON Gordon Attending Unavailable NADERER, DR ROMARIO Waddell Primary Care Unavailable IBRAHIM ., DR NELSON Gordon Consulting Unavailable IBRAHIM ., DR NELSON Gordon Admitting Unavailable AGUBOSIM, DELFINO Consulting Unavailable IBRAHIM ., DR NELSON Gordon Admitting Unavailable IBRAHIM ., DR NELSON Gordon Attending Unavailable NADERESusan, DR ROMARIO Waddell Primary Care Unavailable MASSEY ., JULIANE Consulting Unavailable NADERER, DR ROMARIO Waddell Primary Care Unavailable MASSEY ., JULIANE Consulting Unavailable IBRAHIM ., DR NELSON Gordon Attending Unavailable IBRAHIM ., DR NELSON Gordon Admitting Unavailable NADERER, DR ROMARIO Waddell Primary Care Unavailable IBRAHIM, MIGUEL ÁNGEL Admitting Unavailable IBRAHIM, MIGUEL ÁNGEL Attending Unavailable IBRAHIM ., DR NELSON Gordon Consulting Unavailable IBRAHIM ., DR NELSON Gordon Attending Unavailable NADERESusan, DR ROMARIO Waddell Primary Care Unavailable MASSEY ., JULIANE Consulting Unavailable IBRAHIM ., DR NELSON Gordon Admitting Unavailable MASSEY ., JULIANE Consulting Unavailable IBRAHIM ., DR NELSON Gordon Attending Unavailable NADERESusan, DR ROMARIO Waddell Primary Care Unavailable IBRAHIM ., DR NELSON Gordon Admitting Unavailable IBRAHIM ., DR NELSON Gordon Attending Unavailable NADERER, DR ROMARIO Waddell Primary Care Unavailable IBRAHIM ., DR NELSON Gordon Admitting Unavailable IBRAHIM ., DR NELSON Gordon Consulting Unavailable ZIEBER, DR PEDRO PABLO Davis Consulting Unavailable SIEGAL, SHAHEEN Admitting Unavailable SIEGAL, SHAHEEN Attending Unavailable NADERER, DR ROMARIO Waddell Primary Care Unavailable SIEGAL, SHAHEEN Consulting Unavailable NADERER, DR ROMARIO Waddell Primary Care Unavailable IBRAHIM ., DR NELSON Gordon Consulting Unavailable IBRAHIM ., DR NELSON Gordon Admitting Unavailable IBRAHIM ., DR NELSON Gordon Attending Unavailable NADERER, DR ROMARIO Waddell Primary Care Unavailable LILA, DAVIDSON Consulting Unavailable LILA, DAVIDSON Admitting Unavailable LILA, DAVIDSON Attending Unavailable Unavailable Primary Care Provider Unavailnir e HERNANDEZ, JENNIE S Referring Unavailable JW CEE Attending Unavailab hemant Man MD, Romario Primary Care Provider HERNANDEZ, JENNIE S Referring Unavailable HERNANDEZ, JENNIE S Attending Unavailable NADERER, ROMARIO Primary Care Unavailable HERNANDEZ, JENNIE S Attending Unavailable NADERER, ROMARIO Primary Care Unavailable HERNANDEZ, JENNIE S Referring Unavailable HERNANDEZ, JENNIE S Attending Unavailable NADERER, [facility] Primary Care Unavailable HERNANDEZ, JENNIE S Referring Unavailable LILA, DAVIDSON Attending Unavailable HERNANDEZ, JENNIE S Attending Unavailable HERNANDEZ, JENNIE S Referring Unavailable NADERER, ROMARIO Primary Care Unavailable SIEGAL, SHAHEEN Attending Unavailable SIEGAL, SHAHEEN Referring Unavailable NADERER, ROMARIO Primary Care Unavailable SIEGAL, SHAHEEN Attending Unavailable SIEGAL, SHAHEEN Referring Unavailable NADERER, ROMARIO Primary Care Unavailable NADERER, ROMARIO Primary Care Unavailable SIEGAL, SHAHEEN Attending Unavailable SIEGAL, SHAHEEN Referring Unavailable HERNANDEZ, JENNIE S Referring Unavailable HERNANDEZ, JENNIE S Attending [facility] Primary Care Unavailable SELF, SELF Referring Unavailable HERNANDEZ, JENNIE S Attending Unavailable NADERER, ROMARIO Primary Care Unavailable SELF, SELF Referring Unavailable HERNANDEZ, JENNIE S Attending Unavailable NADERER, ROMARIO Primary Care Unavailable HERNANDEZ, JENNIE S Referring Unavailable HERNANDEZ, JENNIE S Attending Unavailable NADERER, ROMARIO Primary Care Unavailable NADERER, ROMARIO Primary Care Unavailable SIEGAL, SHAHEEN Referring Unavailable SIEGAL, SHAHEEN Admitting Unavailable SIEGAL, SHAHEEN Attending Unavailable HERNANDEZ, JENNIE S Attending Unavailable HERNANDEZ, JENNIE S Referring Unavailable NADERER, ROMARIO Primary Care Unavailable Romario Man MD [facility] LEVI Primary Care UnavailFANY Toney Consulting Unavailable IACOB, KENDELL Admitting Unavailable KENDELL CAMACHO Attending Unavailable NADIA FITZPATRICK Attending Unavailable ROMARIO MAN Primary Care Unavailabl e Allergies Allergy Classification Reported Allergen(s) Allergy Type Date of Onset Reaction(s) Facility (1 source) No Known Medication Allergies; Translations: [No Known Medication Allergies] Propensity to adverse reactions (disorder) [facility] Repository Medications Current Medications Medication Drug Class(es) Dates Sig (Normalized) Sig (Original) Acetaminophen (10 sources) Start: 12-30-2022 acetaminophen (TYLENOL) tablet 650 mg Start: 09-12-2019 take 2 tablets by mo [facility] every eight hours as needed for pain acetaminophen (TYLENOL) 325 MG tablet Take 2 tablets by mouth every 8 hours as needed for Pain 30 tablet 0 09/12/2019 Active acetaminophen 325 mg / HYDROcodone bitartrate 5 mg oral tablet (5 sources) Opioid Agonist Start: 09-18-2023 End: 09-23-2023 take 1 tablet by mouth four times daily as needed for pain hydroCODone-acetaminophen 5-325 MG tablet Indications: Sacroiliitis Take 1 tablet by mouth 4 times daily as needed for Moderate Pain for up to 5 days. 20 tablet 0 09/18/2023 09/23/2023 Active Start: 09-18-2023 End: 09-18-2023 take 1-2 tablets by mouth every four hours as needed hydroCODone-acetaminophen (NORCO) 5-325 MG per tablet 1-2 tablet Start: 05-23-2022 take 1 tablet by [facility] twice daily [place] 5/325 Tab 1 tab(s), Oral, BID, Refill(s) 0 Start Date: 05/23/22 Status: Ordered Start: 09-12-2019 End: 09-12-2019 HYDROcodone-acetaminophen (N ORCO) 5-325 MG per tablet 2 tablet Albuterol (12 sources) beta2-Adrenergic Agonist Start: 2023 albut rich (PROVENTIL) (2.5 MG/3ML) 0.083% nebulizer solution 15 mg Start: 05-23-2022 take 2 puff(s) by inhalation every four hours as needed for wheezing albuterol sulfate HFA (PROVENTIL;VENTOLIN;PROAIR) 108 (90 Base) MCG/ACT inhaler Inhale 2 puffs into the lungs every 4 hours as needed for Wheezing or Shortness of Breath 0 05/23/2022 Active Start: 05-23-2022 Albuterol 108 (90 Base) MCG/ACT Aero Soln inhaler Inhale 2 puffs. 0 05/23/2022 Active albuterol HFA 90 mcg/inh MDI (2 sources) Start: 05-23-2022 take 2 puff(s) by inhalation every four hours albuterol HFA 90 mcg/inh MDI 2 puff(s), Inhalation, q4hr Shortness of breath or wheezing, Refill(s) 0 Start Date: 05/23/22 Status: Ordered amLODIPine 10 mg oral tablet (20 sources) Dihydropyridine Calcium Channel Sarah Start: 11-06-2022 End: 02-17-2024 take 1 tablet by mouth once daily amLODIPine (NORVASC) 10 MG tablet Take 1 tablet by mouth daily 0 11/06/2022 Active atorvastatin 20 mg oral tablet (20 sources) HMG-CoA Reductase Inhibitor Start: 12-09-2022 take 1 tablet by mouth once daily atorvastatin (LIPITOR) 20 MG tablet Take 1 tablet by mouth nightly 30 tablet 2 12/31/2022 Active Start: 01-13-2018 End: 12-31-2022 take 1 tablet by mouth at bedtime atorvastatin 40 mg Tab 40 mg = 1 tab(s), Oral, Bedtime, Refills(s) 0 Start Date: 05/23/22 Status: Ordered cholecalciferol 0.05 mg oral tablet (12 sources) Vitamin D Start: 12-15-2022 take 1 tablet by mouth once daily Cholecalciferol (Vitamin D3) 50 MCG (2000 UT) tablet Take 1 tablet by mouth daily. 0 01/21/2023 Active dicyclomine hydrochloride 10 mg oral capsule (5 sources) Anticholinergic Start: 07-18-2020 End: 03-09-2021 take 1 capsule by mouth three times daily as needed for pain dicyclomine (BENTYL) 10 MG capsule Take 1 capsule by mouth 3 times daily as needed (abdominal pain) 40 capsule 3 07/18/2020 03/09/2021 Discontinued ferrous sulfate 325 mg oral tablet (15 sources) Start: 11-27-2022 take 1 tablet by mouth twice daily SV Iron 325 MG tablet Take 1 tablet by mouth 2 times daily. 0 01/30/2023 Active Start: 05-23-2022 take 1 tablet by alissa th twice daily ferrous sulfate 325 mg oral enteric coated tablet 325 mg = 1 tab(s), Oral, BID, Refills(s) 0 Start Date: 05/23/22 Status: Ordered ipratropium 0.5 mg-albuterol 2.5 mg (DUONEB) nebulizer solution 1 Dose (1 source) Start: 2023 ipratropium 0. 5 mg-albuterol 2.5 mg (DUONEB) nebulizer solution 1 Dose 24 hr isosorbide mononitrate 60 mg extended release oral tablet (20 sources) Nitrate Vasodilator Start: 10-12-2022 take 1 tablet by mouth once daily Isosorbide mononitrate 60 MG Tab SR 24 HR tablet XL Take 1 tablet by mouth daily. 0 01/20/2023 Active Start: 01-13-2018 End: 12-30-2022 take 1 tablet by mouth once daily in the morning isosorbide mononitrate 30 mg ER Tab 30 mg = 1 tab(s), Oral, qAM, Refills(s) 0 Start Date: 05/23/22 Status: Ordered levoFLOXacin 750 mg oral tablet (9 sources) Quinolone Antimicrobial Start: 01-01-2023 take 1 tablet by mouth once daily levoFLOXacin 750 MG tablet TAKE 1 TABLET BY MOUTH ONCE DAILY FOR 7 DAYS 0 01/01/2023 Active lisinopril 20 mg oral tablet (15 sources) Angiotensin Converting Enzyme Inhibitor Start: 12-30-2022 lisinopril (PRINIVIL;ZESTRIL) tablet 40 mg Start: 12-04-2022 take 1 tablet by alissa th once daily lisinopril (PRINIVIL;ZESTRIL) 40 MG tablet Take 40 mg by mouth daily 0 12/04/2022 Active Start: 05-23-2022 take 1 tablet by alissa th once daily lisinopril 40 mg Tab 40 mg = 1 tab(s), Oral, Daily, Refills(s) 0 Start Date: 05/23/22 Status: Ordered 24 hr metoprolol succinate 100 mg extended release oral tablet (20 sources) beta-Adrenergic Sarah Start: 10-19-2022 take 1 tablet by mouth once daily Metoprolol succinate 100 MG tablet XL TAKE 1 TABLET BY MOUTH ONCE DAILY DIRECTED 0 01/20/2023 Active Start: 01-13-2018 End: 12-30-2022 take 1 tablet by mouth twice daily Metoprolol tartrate 25 mg Tab 25 mg = 1 tab(s), Oral, BID, Refills(s) 0 Start Date: 05/23/22 Status: Ordered ondansetron (ZOFRAN-ODT) disintegrating tablet 4 mg (1 source) Start: 12-30-2022 ondansetron (ZOFRAN-ODT) disintegrating tablet 4 mg pantoprazole 40 mg delayed release oral tablet (20 sources) Proton Pump Inhibitor Start: 10-23-2022 take 1 tablet by mouth twice daily Pantoprazole [address] tablet DR Take 1 tablet by mouth 2 times daily. 0 01/13/2023 Active Start: 05-31-2022 take 1 tablet by alissa twice daily Protonix 40 mg Tab-DR 40 mg = 1 tab(s), Oral, BID, # 90 tab(s), Refills(s) 3, Pharmacy: [id number], 167.6, cm, 05/31/22 14:31:00 EDT, Height/Length Dosing, 72.8, kg, 05/31/22 14:31:00 EDT, Weight Dosing Start Date: 05/31/22 Status: Ordered Start: 07-18-2020 End: 03-09-2021 take 2 tablets by mouth once daily pantoprazole (PROTONIX) 20 MG tablet Take 2 tablets by mouth daily 30 tablet 0 07/18/2020 03/09/2021 Discontinued pregabalin 50 mg oral capsule (14 sources) Start: 01-20-2023 take 2 capsules by mouth twice daily Pregabalin 50 MG capsule Take 2 capsules by mouth 2 times daily. 0 01/20/2023 Active Start: 01-20-2023 take 1 capsule by mo [facility] twice daily Pregabalin 50 MG capsule Take 1 capsule by mouth 2 times daily. 0 01/20/2023 Active Start: 12-30-2022 pregabalin (LY MARIA LUZ) capsule 50 mg End: 12-30-2022 take 1 capsule by mouth twice daily pregabalin (LYRICA) 75 MG capsule Take 75 mg by mouth 2 times daily. 0 12/30/2022 Discontinued (LIST CLEANUP) sucralfate 1000 mg oral tablet (2 sources) Aluminum Complex Start: 05-23-2022 Carafate 1 gr am Tab 1 gm = 1 tab(s), Oral, QIDACHS, Refills(s) 0 Start Date: 05/23/22 Status: Ordered traMADol hydrochloride 50 mg oral tablet (2 sources) Opioid Agonist Start: 03-09-2021 End: 03-14-2021 take 1 tablet by mouth every four hours as needed for pain traMADol (ULTRAM) 50 MG tablet Indications: Acute gout of right wrist, unspecified cause Take 1 tablet by mouth every 4 hours as needed for Pain for up to 5 days. 30 tablet 0 03/09/2021 03/14/2021 Active Start: 03-09-2021 End: 03-09-2021 traMADol (ULTRAM) tablet 100 mg Vitamin D3 2000 intl units oral Tab (2 sources) Start: 05-23-2022 take 1 tablet by mouth once daily Vitamin D3 2000 intl units oral Tab = 1 tab(s), Oral, Daily, tab(s), Refills(s) 0 Start Date: 05/23/22 Status: Ordered Completed/Discontinued Medications Medication Drug Class(es) Dates Sig (Normalized) Sig (Original) acetaminophen 325 mg / oxyCODONE hydrochloride 5 mg oral tablet (13 sources) Opioid Agonist Start: 02-13-2023 End: 09-18-2023 take 1 tablet by mouth three times daily as needed oxyCODONE-acetamino phen 5-325 MG per tablet TAKE 1 TABLET BY MOUTH THREE TIMES DAILY NEEDED FOR LUMBAR RADICULOPATHY. 0 02/13/2023 09/18/2023 Discontinued (Stop Taking at Discharge) Start: 12-30-2022 take 1 tablet by alissa th every eight hours as needed 1 tablet, Oral, EVERY 8 HOURS PRN, Starting on 12/30/22 at 1245, Until Discontinued, Pain Severe (7-10) Maximum dose of acetaminophen is 4000 mg from all sources in 24 hours. aluminum & magnesium hydroxide-simethicone (MAALOX) 30 mL, lidocaine viscous hcl (XYLOCAINE) 5 mL (GI COCKTAIL) (1 source) Start: 07-18-2020 End: 07-18-2020 aluminum & magnesium hydroxide-simethicone (MAALOX) 30 mL, lidocaine viscous hcl (XYLOCAINE) 5 mL (GI COCKTAIL) aspirin 81 mg chewable tablet (16 sources) Platelet Aggregation Inhibitor, Nonsteroidal Anti-inflammatory Drug Start: 12-30-2022 aspirin chewable tablet 324 mg Start: 06-14-2019 aspirin tablet 325 mg Start: 01-14-2018 take 1 tablet by alissa th once daily aspirin 81 MG chewable tablet Take 1 tablet by mouth daily 30 tablet 3 01/14/2018 Active take 1 tablet by alissa th once daily, then take 1 tablet by mouth once daily aspirin, [id number], tablet Take 1 tablet by mouth daily. Take 1 tablet (total dose= 81mg) by mouth daily. Return bottle(s) & unused medication at your next visit. 0 Active bupivacaine hydrochloride 5 mg/ml injectable solution (6 sources) Amide Local Anesthetic Start: 07-16-2023 End: 07-16-2023 BUPivacaine (MARCAINE) 0.5 % injection 1 mL Start: 06-10-2023 End: 06-10-2023 bupivacaine (MARCAINE) 0.5 % injection 1 mL Start: 04-18-2023 End: 04-18-2023 bupivacaine (MARCAINE) 0.5 % injection 1 mL 1 ml dexamethasone phosphate 4 mg/ml injection (4 sources) Corticosteroid Start: 07-16-2023 End: 07-16-2023 dexAMETHasone (DECADRON) injection 4 mg Start: 06-10-2023 End: 06-10-2023 dexAMETHasone (DECADRON) inj ection 4 mg 0.4 ml enoxaparin sodium 100 mg/ml prefilled syringe (1 source) Low Molecular Weight Heparin Start: 12-30-2022 inject 40 mg by subcutaneous injection once daily 40 mg, SubCUTAneous, DAILY, First dose on Fri12/30/22 at 1400, Until Discontinued Indication of Use: Prophylaxis-DVT/PE guaiFENesin 20 mg/ml oral solution (1 source) Start: 2023 End: 2023 guaiFENesin (ROBITUSSIN) 100 MG/5ML liquid 200 mg Start: 2023 End: 2023 guaiFENesin (ROBITUSSIN) 100 MG/5ML liquid 200 mg HYDROmorphone (DILAUDID) injection 0.2 mg (1 source) Start: 09-18-2023 End: 09-18-2023 HYDROmorphone (DILAUDID) injection 0.2 mg ibuprofen 800 mg oral tablet (13 sources) Nonsteroidal Anti-inflammatory Drug Start: 09-12-2019 End: 03-09-2021 take 800 mg by mouth every eight hours as needed 800 mg, Oral, EVERY 8 HOURS PRN, Starting on Fri12/30/22 at 1245, Until Discontinued, Fever, Pain Moderate (4-6) Do not crush or chew. iopamidol (ISOVUE-370) 76 % injection 75 mL (1 source) Start: 12-30-2022 End: 12-30-2022 iopamidol (ISOVUE-370) 76 % injection 75 mL 1 ml ketorolac tromethamine 30 mg/ml cartridge (1 source) Nonsteroidal Anti-inflammatory Drug, Cyclooxygenase Inhibitor Start: 2023 End: 2023 ketorolac (TORADOL) injection 30 mg 10 ml lidocaine hydrochloride 10 mg/ml injection (6 sources) Antiarrhythmic, Amide Local Anesthetic Start: 07-16-2023 End: 07-16-2023 Lidocaine (XYLOCAINE) 10 mg/mL injection 4 mL Start: 06-10-2023 End: 06-10-2023 Lidocaine (XYLOCAINE) 10 mg/ mL injection 4 mL Start: 04-18-2023 End: 04-18-2023 Lidocaine (XYLOCAINE) 10 mg/ mL injection 4 mL meloxicam 15 mg oral tablet (15 sources) Nonsteroidal Anti-inflammatory Drug Start: 12-07-2022 End: 09-18-2023 take 1 tablet by mouth once daily Meloxicam 15 MG tablet Take 1 tablet by mouth daily. 0 02/17/2023 09/18/2023 Discontinued (Stop Taking at Discharge) Start: 05-23-2022 take 1 tablet by alissa once daily meloxicam 15 mg oral tablet 15 mg = 1 tab(s), Oral, Daily, Refills(s) 0 Start Date: 05/23/22 Status: Ordered methocarbamol 500 mg oral tablet (1 source) Muscle Relaxant Start: 09-18-2023 End: 09-18-2023 take 750-1500 mg by mouth every eight hours as needed Methocarbamol (ROBAXIN) tablet 750-1,500 mg nitroglycerin 0.4 mg sublingual tablet (20 sources) Nitrate Vasodilator Start: 12-30-2022 End: 12-30-2022 0.4 mg, SubLINGual, EVERY 5 MIN PRN, Starting on Fri12/30/22 at 1245, Until Discontinued, Chest pain Place 1 tablet under tongue upon chest pain, wait 5 minutes and may repeat up to 3 doses in 15 minutes. Do not crush or break. Start: 11-26-2022 nitroGLYCERIN 0.4 MG tablet SL DISSOLVE ONE TABLET UNDER THE TONGUE EVERY 5 MINUTES NEEDED FOR CHEST PAIN. DO NOT EXCEED A TOTAL OF 3 DOSES IN 15 MINUTES 0 11/26/2022 Active Start: 01-13-2018 nitroGLYCERIN (NITROSTAT) 0.4 MG SL tablet up to max of 3 total doses. If no relief after 1 dose, call 911. 25 tablet 3 01/13/2018 Active 2 ml ondansetron 2 mg/ml injection (1 source) Serotonin-3 Receptor Antagonist Start: 09-18-2023 End: 09-18-2023 Ondansetron 4mg/2ml (ZOFRAN) injection 4 mg 2 ml orphenadrine citrate 30 mg/ml injection (1 source) Muscle Relaxant Start: 09-12-2019 End: 09-12-2019 orphenadrine (NORFLEX) injection 60 mg Start: 09-12-2019 End: 09-12-2019 orphenadrine (NORFLEX) injec tion 60 mg polyethylene glycol [id number] mg powder for oral solution (1 source) Osmotic Laxative Start: 12-30-2022 17 g, Oral, D AILY PRN, Starting on Fri12/30/22 at 1245, Until Discontinued, Constipation First line therapy for constipation regadenoson (LEXISCAN) injection 0.4 mg (1 source) Start: 08-16-2020 End: 08-16-2020 regadenoson (LEXISCAN) injection 0.4 mg 1000 ml sodium chloride 9 mg/ml injection (10 sources) Start: 09-18-2023 End: 09-18-2023 Sodium chloride 0.9% IV solution Start: 07-16-2023 End: 07-16-2023 Sodium chloride (PF) 0.9 % injection 5 mL Start: 06-10-2023 End: 06-10-2023 Sodium chloride (PF) 0.9 % injection 5 mL Start: 04-18-2023 End: 04-18-2023 Sodium chloride (PF) 0.9 % injection 5 mL Start: 12-30-2022 take 1 dose intraven ously twice daily 5-40 mL, IntraVENous, EVERY 12 HOURS SCHEDULED (2 times per day), First dose on Fri12/30/22 at 2100, Until Discontinued For Line Patency: Peripheral IV = 5 mL; Midline or Central Line = 10 mL/lumen. If following IV push medication, administer flush at same rate as the IV push. Flush volume is determined by type of infusion therapy being given. For non-viscous solutions use: Peripheral IV = 5 mL Midline or Central Line = 10 mL/lumen For viscous solutions (i.e. blood components, parenteral nutrition, contrast media, or after obtaining blood sample) use: Peripheral IV = 10 mL Midline or Central Line = 20 mL/lumen Start: 12-30-2022 take 25 mL intraveno usly every hour as needed 25 mL, IntraVENous, at 100 mL/hr, PRN, If patient receiving piggyback infusions without ordered maintenance IV fluids or with frequent/long duration piggyback infusions, Starting on Fri12/30/22 at 1245 Administer at the same rate as the piggyback being infused. Start: 12-30-2022 take 5-40 mL intrave nously once as needed 5-40 mL, IntraVENous, PRN, Starting on Fri12/30/22 at 1245, Until Discontinued, Line Care, After every IV line use For Line Patency: Peripheral IV = 5 mL; Midline or Central Line = 10 mL/lumen. If following IV push medication, administer flush at same rate as the IV push. Flush volume is determined by type of infusion therapy being given. For non-viscous solutions use: Peripheral IV = 5 mL Midline or Central Line = 10 mL/lumen For viscous solutions (i.e. blood components, parenteral nutrition, contrast media, or after obtaining blood sample) use: Peripheral IV = 10 mL Midline or Central Line = 20 mL/lumen technetium sestamibi (CARDIOLITE) injection 10 millicurie (1 source) Start: 12-31-2022 End: 12-31-2022 technetium sestamibi (CARDIOLITE) injection 10 millicurie technetium sestamibi (CARDIOLITE) injection 30 millicurie (3 sources) Start: 12-31-2022 End: 12-31-2022 technetium sestamibi (CARDIOLITE) injection 30 millicurie Start: 08-17-2020 End: 08-17-2020 technetium sestamibi (CARDIO LITE) injection 30 millicurie Start: 08-16-2020 End: 08-16-2020 technetium sestamibi (CARDIO LITE) injection 30 millicurie tiZANidine 4 mg oral tablet (13 sources) Central alpha-2 Adrenergic Agonist Start: 05-23-2022 Zanaflex Refills(s) 0 Start Date: 05/23/22 Status: Ordered Start: 09-12-2019 take 1 tablet by alissa th every eight hours as needed for pain tiZANidine (ZANAFLEX) 4 MG tablet Take 1 tablet by mouth every 8 hours as needed (Neck pain) 30 tablet 0 09/12/2019 Active tiZANidine HCl ( ZANAFLEX PO) Take by mouth as needed. 0 Active 1 ml triamcinolone acetonide 40 mg/ml injection (6 sources) Corticosteroid Start: 07-16-2023 End: 07-16-2023 triamcinolone (KENALOG-40) injection 2 mL Start: 06-10-2023 End: 06-10-2023 triamcinolone (KENALOG-40) i njection 2 mL Start: 04-18-2023 End: 04-18-2023 triamcinolone (KENALOG-40) i njection 2 mL Problems Active Problems Problem Classification Problem Date Documented Date Episodic/Chronic Asthma (13 sources) Mild intermittent asthma; Translations: [Mild intermittent asthma, uncomplicated] Onset: 01-10-2018 01-10-2018 Chronic Coronary atherosclerosis and other heart disease (20 sources) Unstable angina; Translations: [Preinfarction syndrome] Onset: 01-10-2018 01-13-2018 Chronic Deficiency and other anemia (3 sources) Iron deficiency anemia; Translations: [Iron deficiency anemia, unspecified] Onset: 05-31-2022 Episodic Disorders of lipid metabolism (2 sources) Hyperlipidemia, unspecified; Translations: [Dyslipidemia] Onset: 07-01-2022 01-02-2023 Chronic Diverticulosis and diverticulitis (1 source) Diverticulosis of large intestine without perforation or abscess without bleeding; Translations: [DVRTCLOS LG INT NO PERF/ABSC W/O BL] Onset: 07-01-2022 Chronic Essential hypertension (1 source) Essential hypertension; Translations: [Essential (primary) hypertension] Onset: 01-02-2023 01-02-2023 Chronic Gout and other crystal arthropathies (7 sources) 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; Translations: [Gout, unspecified] Onset: 03-09-2021 Chronic Malaise and fatigue (1 source) Fatigue; Translations: [Chronic fatigue, unspecified] Chronic Mood disorders (2 sources) Depressive disorder 05-23-2022 Chronic Nutritional deficiencies (2 sources) Vitamin D deficiency 05-23-2022 Chronic Osteoarthritis (1 source) Unilateral primary osteoarthritis of first carpometacarpal joint, right hand; Translations: [UNI PRIM OA 1ST CMC JOINT RT HAND] Onset: 08-26-2022 Chronic Other aftercare (2 sources) Encounter for follow-up examination after completed treatment for conditions other than malignant neoplasm; Translations: [Encounter for follow-up examination after completed treatment for conditions other than malignant neoplasm] Onset: 08-27-2023 Episodic Other and unspecified benign neoplasm (1 source) Polyp of colon; Translations: [Polyp of colon] Onset: 07-10-2022 Episodic Other and unspecified benign neoplasm (1 source) Polyp of sigmoid colon 07-10-2022 Episodic Other circulatory disease (1 source) History of angioplasty; Translations: [Peripheral vascular angioplasty status with implants and grafts] Onset: 01-02-2023 01-02-2023 Chronic Other connective tissue disease (1 source) Muscle spasm of cervical muscle of neck; Translations: [Trapezius muscle spasm] Episodic Other nervous system disorders (1 source) Other chronic pain; Translations: [OTHER CHRONIC PAIN] Onset: 05-06-2022 Chronic Other nervous system disorders (2 sources) Polyneuropathy; Translations: [Polyneuropathy, unspecified] 06-10-2023 Chronic Other nervous system disorders (1 source) Disorder of the peripheral nervous system; Translations: [Hereditary and idiopathic neuropathy, unspecified] 08-14-2023 Chronic Other nervous system disorders (2 sources) Numbness of lower limb ; Translations: [Anesthesia of skin] 02-25-2023 Episodic Other nervous system disorders (2 sources) Anesthesia of skin; Translations: [Anesthesia of skin] Onset: 04-15-2023 Episodic Other nervous system disorders (1 source) Hyperreflexia; Translations: [Abnormal reflex] 08-14-2023 Episodic Other non-traumatic joint disorders (1 source) Shoulder pain; Translations: [Chronic pain of both shoulders] Episodic Other nutritional; endocrine; and metabolic disorders (2 sources) Overweight in adulthood with body mass index of 25 or more but less than 30 05-31-2022 Episodic Peripheral and visceral atherosclerosis (1 source) Peripheral vascular disease; Translations: [Other specified peripheral vascular diseases (HCC)] Chronic Spondylosis; intervertebral disc disorders; other back problems (20 sources) Degeneration of lumbar intervertebral disc; Translations: [Sacroiliitis, not elsewhere classified] Onset: 04-10-2022 05-23-2022 Chronic Spondylosis; intervertebral disc disorders; other back problems (20 sources) Chronic neck pain; Translations: [Spinal stenosis, lumbar region with neurogenic claudication] Onset: 02-21-2022 Episodic Unclassified (6 sources) History of cardiac catheterization; Translations: [S/P cardiac cath] Onset: 01-12-2018 01-13-2018 Unclassified (3 sources) VERTEBROGENIC LOW BACK PAIN; Translations: [VERTEBROGENIC LOW BACK PAIN] Onset: 12-26-2022 Unclassified (3 sources) LOW BACK PAIN, UNSPECIFIED; Translations: [LOW BACK PAIN, UNSPECIFIED] Onset: 08-26-2022 Unclassified (1 source) CONTACT W/AND (SUSP) EXPOS COVID-19; Translations: [CONTACT W/AND (SUSP) EXPOS COVID-19] Onset: 06-24-2022 Unclassified (2 sources) New Patient; Translations: [New Patient] Onset: 02-25-2023 Viral infection (5 sources) Viral disease; Translations: [Viral infection, unspecified] Onset: 12-30-2022 Episodic Past or Other Problems Problem Classification Problem Date Documented Da te Episodic/Chronic Abdominal hernia (3 sources) Diaphragmatic hernia; Translations: [Diaphragmatic hernia without obstruction or gangrene] Onset: 07-01-2022 Episodic Abdominal pain (8 sources) Epigastric pain; Translations: [Epigastric pain] Onset: 05-31-2022 Episodic Deficiency and other anemia (1 source) Iron deficiency anemia, unspecified; Translations: [IRON DEFICIENCY ANEMIA UNSPECIFIED] Onset: 07-01-2022 Episodic Gastritis and duodenitis (1 source) Gastritis, unspecified, without bleeding; Translations: [GASTRITIS UNS WITHOUT BLEEDING] Onset: 07-01-2022 Episodic Gastrointestinal hemorrhage (4 sources) Hematemesis; Translations: [Hematemesis] Onset: 05-31-2022 Episodic Malaise and fatigue (5 sources) Weakness; Translations: [Other fatigue] Onset: 04-03-2022 Episodic Nonspecific chest pain (8 sources) Chest pain; Translations: [Chest pain, unspecified] Onset: 12-30-2022 Episodic Other aftercare (1 source) 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; Translations: [RESIDENTIAL CURRENT USE OF ASPIRIN] Onset: 07-01-2022 Episodic Other aftercare (1 source) Other [place] (current) drug therapy; Translations: [OTH RESIDENTIAL CURRENT DRUG THERAPY] Onset: 07-01-2022 Episodic Other circulatory disease (1 source) Hemorrhage, not elsewhere classified; Translations: [HEMORRHAGE NOT ELSEWHERE CLASSIFIED] Onset: 04-10-2022 Episodic Other connective tissue disease (4 sources) Other muscle spasm; Translations: [OTHER MUSCLE SPASM] Onset: 05-30-2022 Episodic Other injuries and conditions due to external causes (1 source) Other injury of unspecified body region, initial encounter; Translations: [OTHER INJURY UNS BODY REGION INIT] Onset: 04-10-2022 Episodic Other screening for suspected conditions (not mental disorders or infectious disease) (1 source) Encounter for screening for malignant neoplasm of prostate; Translations: [ENC SCREEN MALIG NEOPLASM PROSTATE] Onset: 09-14-2022 Episodic Residual codes; unclassified (4 sources) History of cardiac catheterization; Translations: [Other specified postprocedural states] Onset: 01-12-2018 01-13-2018 Episodic Residual codes; unclassified (2 sources) Pain; Translations: [Pain] Onset: 02-25-2023 Episodic Unclassified (1 source) VERTEBROGENIC LOW BACK PAIN; Translations: [VERTEBROGENIC LOW BACK PAIN] Onset: 12-18-2022 Unclassified (1 source) LOW BACK PAIN, UNSPECIFIED; Translations: [LOW BACK PAIN, UNSPECIFIED] Onset: 08-22-2022 Results Test Name Value Interpretation Reference Range Facility COVID-19, Rapidon 2023 SARS-CoV-2 (COVID-19) RdRp gene DAHLIA+probe Ql (Resp) Not detected Not Detected [facility] Comment on above: Rapid NAAT: The specimen is NEGATIVE for SARS-CoV-2, the novel coronavirus associated with COVID-19. The ID NOW COVID-19 assay is designed to detect the virus that causes COVID-19 in patients with signs and symptoms of infection who are suspected of COVID-19. An individual without symptoms of COVID-19 and who is not shedding SARS-CoV-2 virus would expect to have a negative (not detected) result in this assay. Negative results should be treated as presumptive and, if inconsistent with clinical signs and symptoms or necessary for patient management, should be tested with an alternative molecular assay. Negative results do not preclude SARS-CoV-2 infection and should not be used as the sole basis for patient management decisions. Fact sheet for Healthcare Providers: https://www.fda.gov/media/667350/download Fact sheet for Patients: https://www.fda.gov/media/457651/download Methodology: Isothermal Nucleic Acid Amplification Specimen Description .NASOPHARYNGEAL SWAB [facility] Flu A/B Ag Detectionon 10-10 Flu A Ag Detection Negative Normal NEG [facility] Comment on above: Result Comment: for Influenza A Antigen Performed By: #### F LUABA #### [facility] [address] [place] [address] [place] [address] Senior Net Software Engineer: Luis Carlos Del Castillo MD Flu B Ag Detection Negative Normal NEG [facility] Comment on above: Result Comment: for Influenza B Antigen. Performed By: #### F LUABA #### [facility] [address] [place] [address] Senior Net Software Engineer: Luis Carlos Del Castillo MD Rapid influenza A/B antigens on 2023 FLUAV Ag Ql (Unsp spec) Negative NEGATIVE [facility] Comment on above: for Influenza A Anti gen FLUBV Ag Ql (Unsp spec) Negative NEGATIVE [facility] Comment on above: for Influenza B Anti gen. [facility] [id number] 2023 SARS-CoV-2 (COVID-19) RNA DAHLIA+probe Ql (Unsp spec) Not detected Normal [facility] Comment on above: Result Comment: Rapid NAAT: The specimen is NEGATIVE for SARS-CoV-2, the novel coronavirus associated with COVID-19. The ID NOW COVID-19 assay is designed to detect the virus that causes COVID-19 in patients with signs and symptoms of infection who are suspected of COVID-19. An individual without symptoms of COVID-19 and who is not shedding SARS-CoV-2 virus would expect to have a negative (not detected) result in this assay. Negative results should be treated as presumptive and, if inconsistent with clinical signs and symptoms or necessary for patient management, should be tested with an alternative molecular assay. Negative results do not preclude SARS-CoV-2 infection and should not be used as the sole basis for patient management decisions. Fact sheet for Healthcare Providers: https://www.fda.gov/media/284373/download Fact sheet for Patients: https://www.fda.gov/media/182364/download Methodology: Isothermal Nucleic Acid Amplification Performed By: #### C OVRB #### [address] [place] [address] Senior Net Software Engineer: Luis Carlos Del Castillo MD XR CHEST PORTABLEon 10-10-19 24 XR CHEST PORTABLE EXAMINATION: ONE XRAY VIEW OF THE CHEST 2023 5:59 am COMPARISON: 12/30/2022 HISTORY: ORDERING SYSTEM PROVIDED HISTORY: SOB with flu like symptoms, diminished breath sounds throughout TECHNOLOGIST PROVIDED HISTORY: SOB with flu like symptoms, diminished breath sounds throughout FINDINGS: The lungs are without acute focal process. Persistent solid nodule of the left upper lobe. There is no effusion or pneumothorax. The cardiomediastinal silhouette is without acute process. The osseous structures are without acute process. IMPRESSION: 1. No acute process. 2. Persistent solid nodule of the left upper lobe suspicious for neoplasm. Recommend nonemergent noncontrast chest CT. Interpreted by: Nav Hudson MD Signed by: Nav Hudson MD 10/10/23 Final result Normal [facility] Documentationon 09-18-2023 Documentation [id number] Dorothea Alva 1960 M Date Provider Department [facility] Family History Problem Relation Age of Onset Coronary artery disease Mother Coronary artery disease Father Family Status - Relation Status Age at Mother Father Normal [facility] CBCon 09-09-2023 ABSOLUTE BAS 0.1 10*3/uL Normal 0.0-0.2 [facility] ABSOLUTE EOS 0.1 10*3/uL Normal 0.0-0.7 [facility] ABSOLUTE NEUTROPHIL COUNT 7.0 10*3/uL High 1.4-6.5 [facility] Basophils/100 WBC (Bld) 0.9 % Normal 0.0-2.0 [facility] DTYPE AUTO DIFF Normal [facility] Eosinophils/100 WBC (Bld) 1.3 % Normal 0.0-11.0 [facility] Lymphocytes (Bld) [#/Vol] 1.5 10*3/uL Normal 1.2-3.4 [facility] Lymphocytes/100 WBC (Bld) 15.7 % Low 20.0-55.0 [facility] Monocytes (Bld) [#/Vol] 0.6 10*3/uL Normal 0.0-0.7 [facility] Monocytes/100 WBC (Bld) 7.0 % Normal 0.0-10.0 [facility] Neutrophils/100 WBC (Bld) 75.1 % High 37.0-75.0 [facility] Erythrocyte distribution width (RBC) [Ratio] 14.6 % High 11.5-14.5 [facility] Hematocrit (Bld) [Volume fraction] 41.6 % Low 42.0-52.0 [facility] Hemoglobin (Bld) [Mass/Vol] 13.9 g/dL Low 14.0-18.0 [facility] MCH (RBC) [Entitic mass] 33.0 pg Normal 26.0-35.0 [facility] MCHC (RBC) [Mass/Vol] 33.4 g/dL Normal 27.0-37.0 [facility] MCV (RBC) [Entitic vol] 98.7 fL Normal 80.0-100.0 [facility] Platelet mean volume (Bld) [Entitic vol] 7.8 fL Normal 7.4-11.0 [facility] Platelets (Bld) [#/Vol] 195 10*3/uL Normal 130-400 [facility] RBC (Bld) [#/Vol] 4.21 10*6/uL Normal 4.0-6.1 [facility] WBC (Bld) [#/Vol] 9.3 10*3/uL Normal 3.6-11.0 [facility] CMP FASTINGon 09-09-2023 A:G RATIO 1.5 RATIO Normal 1.3-2.2 [facility] ALBUMIN 4.3 G/dl Normal 3.5-5.0 [facility] ALP [Catalytic activity/Vol] 99 U/L Normal 38-126 [facility] ALT [Catalytic activity/Vol] 46 U/L Normal <50 [facility] AST [Catalytic activity/Vol] 57 U/L Normal 17-59 [facility] Bilirubin [Mass/Vol] 0.7 mg/dL Normal 0.2-1.3 [facility] Calcium [Mass/Vol] 9.5 mg/dL Normal 8.4-10.2 [facility] Chloride [Moles/Vol] 105 mmol/L Normal 98-107 [facility] Comment on above: Result Comment: Gilma medellin note: Triglyceride levels of 600mg/dL or higher may positively bias chloride results by approximately 2.1 mmol CO2 [Moles/Vol] 27 mmol/L Normal 22-30 [facility] Creatinine [Mass/Vol] 0.60 mg/dL Low 0.7-1.2 [facility] EST. GFR, 176 ml/min/1.73sq.m Normal [facility] EST. GFR,Non 145 ml/min/1.73sq.m Normal [facility] GFR Information Average GFR for 60-6 9 years old = 85. Normal [facility] Comment on above: Result Comment: Bootmaker Hand isaiah Kidney disease, GFR = <60. Kidney failure, GFR = <15. The GFR estimate is not adjusted for extreme body surface area or acute process, nor has it been validated for women or ethnic groups other than and . Glucose [Mass/Vol] 86 mg/dL Normal 70-100 [facility] Comment on above: Result Comment: NORMAL <100 mg/dL PREDIABETES 101-126 mg/dL DIABETES 126 mg/dL or higher Potassium [Moles/Vol] 4.0 mmol/L Normal 3.5-5.1 [facility] Protein [Mass/Vol] 7.1 g/dL Normal 6.3-8.2 [facility] Sodium [Moles/Vol] 141 mmol/L Normal 137-145 [facility] Urea nitrogen [Mass/Vol] 16 mg/dL Normal 7-20 [facility] LARGE JOINT/BURSA INJECTION AND/OR ASPIRATIONon 08-13-2023 Radiology Study observation (narrative) [facility] Office Visiton 08-13-2023 Follow-up visit [id number] Dorothea Alva jm L 1960 M Provider Department Center 08/13/2023 DAVIDSON HOWELL VALENCIA [facility] Family History Problem Relation Age of Onset Coronary artery disease Mother Coronary artery disease Father Family Status - Relation Status Age at Mother Father Level of Service:69378 [place] OFFICE/OUTPATIENT ESTABLISHED MOD MDM 30-39 MIN Reason for Visit and Comments: Coronary Artery Disease [187] Chest Pain [064101] Pre-op Exam [202311] Hyperlipidemia [182] Hypertension [618344] Normal [facility] Orders Onlyon 08-13-2023 Orders Only [id number] Dorothea Alva jm L 1960 M Provider Department Center 08/13/2023 ADA BALTAZAR VALENCIA Becker Family History Problem Relation Age of Onset Coronary artery disease Mother Coronary artery disease Father Family Status - Relation Status Age at Mother Father [facility] 36on 08-03-2023 36 Patient will need an appointment for further refills - thanks ! [facility] LARGE JOINT/BURSA INJECTION AND/OR ASPIRATIONon 07-16-2023 Eric Luu 023 6:37 PM LARGE JOINT/BURSA INJECTION AND/OR ASPIRATION Date/Time: 07/16/2023 1:40 PM Performed by: Jennie Hernandez MD Authorized by: Jennie Hernandez MD Supporting Documentation Indications: pain and osteoarthritis Procedure Details: Location: sacroiliac - R sacroiliac joint Local Anesthetic: bupivacaine 0.5% and lidocaine 1% Total Local Anesthetic: 4 mLs Guidance: ultrasound Ultrasound probe size: 4 mHz curvilinear Images were saved electronically. Needle size: 22 G Needle Length: 4.0 inch Approach: posterior Medication Verification: I have personally verified and performed the final check of the medication(s) used in this procedure prior to administration. The following items were included during the verification process for medication(s) administered: drug name, strength, volume, expiration, physical integrity and appearance of the medication(s). Medications administered: 1 mL bupivacaine 0.5 %; 2 mL triamcinolone 40 MG/ML; 4 mL lidocaine 10 mg/mL; 5 mL sodium chloride (PF) 0.9 %; 4 mg dexAMETHasone 4 MG/ML Patient tolerance: patient tolerated the procedure well with no immediate complications Comments Medical Decision Making At today's visit I reviewed the history, physical examination, and previous pertinent imaging. We weighed the options of whether or not to proceed with an injection today based off of these findings and discussed alternatives. After this discussion, I felt that the injection was indicated and we elected to proceed. This evaluation and management service was a separate and identifiable service apart from the injection. Pre-Procedure Details The attending physician was present for the entire procedure. Consent: Consent was obtained prior to the procedure after discussion of the risks, benefits and alternatives, and expected outcomes were discussed with the patient. The possibilities of reaction to medication, bleeding, infection, the need for additional procedures, failure to diagnosis a condition, and creating a complication requiring operation were discussed with the patient. The patient concurred with the proposed plan, giving consent. Preparation: Patient was prepped in the usual sterile fashion. The patient was prepped with Chloraprep. [facility] US Unspecified body regionon 07-16-2023 Image Storage This order is to facilitate the storage of the image. [facility] LARGE JOINT/BURSA INJECTION AND/OR ASPIRATIONon 06-17-2023 Radiology Study observation (narrative) [facility] LARGE JOINT/BURSA INJECTION AND/OR ASPIRATIONon 06-10-2023 Jose Henriquez ATC 09/2023 11:49 AM LARGE JOINT/BURSA INJECTION AND/OR ASPIRATION Date/Time: 06/10/2023 10:00 AM Performed by: Jose Henriquez ATC Authorized by: Jennie Hernandez MD Supporting Documentation Indications: pain and osteoarthritis Procedure Details: Location: sacroiliac - R sacroiliac joint Local Anesthetic: bupivacaine 0.5% and lidocaine 1% Total Local Anesthetic: 4 mLs Guidance: ultrasound Ultrasound probe size: 4 mHz curvilinear Images were saved electronically. Needle size: 22 G Needle Length: 4.0 inch Approach: posterior Medication Verification: I have personally verified and performed the final check of the medication(s) used in this procedure prior to administration. The following items were included during the verification process for medication(s) administered: drug name, strength, volume, expiration, physical integrity and appearance of the medication(s). Medications administered: 1 mL bupivacaine 0.5 %; 2 mL triamcinolone 40 MG/ML; 4 mL lidocaine 10 mg/mL; 5 mL sodium chloride (PF) 0.9 %; 4 mg dexAMETHasone 4 MG/ML Patient tolerance: patient tolerated the procedure well with no immediate complications Comments Medical Decision Making At today's visit I reviewed the history, physical examination, and previous pertinent imaging. We weighed the options of whether or not to proceed with an injection today based off of these findings and discussed alternatives. After this discussion, I felt that the injection was indicated and we elected to proceed. This evaluation and management service was a separate and identifiable service apart from the injection. Pre-Procedure Details The attending physician was present for the entire procedure. Consent: Consent was obtained prior to the procedure after discussion of the risks, benefits and alternatives, and expected outcomes were discussed with the patient. The possibilities of reaction to medication, bleeding, infection, the need for additional procedures, failure to diagnosis a condition, and creating a complication requiring operation were discussed with the patient. The patient concurred with the proposed plan, giving consent. Preparation: Patient was prepped in the usual sterile fashion. The patient was prepped with Chloraprep. [facility] US Unspecified body regionon 06-10-2023 Image Storage This order is to facilitate the storage of the image. [facility] LARGE JOINT/BURSA INJECTION AND/OR ASPIRATIONon 05-15-2023 Radiology Study observation (narrative) [facility] LARGE JOINT/BURSA INJECTION AND/OR ASPIRATIONon 04-18-2023 Eric Del Realtito 023 8:48 PM LARGE JOINT/BURSA INJECTION AND/OR ASPIRATION Date/Time: 04/18/2023 12:40 PM Performed by: Jennie Hernandez MD Authorized by: Jennie Hernandez MD Supporting Documentation Indications: pain and osteoarthritis Procedure Details: Location: sacroiliac - L sacroiliac joint Local Anesthetic: bupivacaine 0.5% and lidocaine 1% Total Local Anesthetic: 4 mLs Guidance: ultrasound Ultrasound probe size: 4 mHz curvilinear Images were saved electronically. Needle size: 22 G Needle Length: 4.0 inch Approach: posterior Medication Verification: I have personally verified and performed the final check of the medication(s) used in this procedure prior to administration. The following items were included during the verification process for medication(s) administered: drug name, strength, volume, expiration, physical integrity and appearance of the medication(s). Medications administered: 1 mL bupivacaine 0.5 %; 2 mL triamcinolone 40 MG/ML; 4 mL lidocaine 10 mg/mL; 5 mL sodium chloride (PF) 0.9 % Patient tolerance: patient tolerated the procedure well with no immediate complications Comments Medical Decision Making At today's visit I reviewed the history, physical examination, and previous pertinent imaging. We weighed the options of whether or not to proceed with an injection today based off of these findings and discussed alternatives. After this discussion, I felt that the injection was indicated and we elected to proceed. This evaluation and management service was a separate and identifiable service apart from the injection. Pre-Procedure Details The attending physician was present for the entire procedure. Consent: Consent was obtained prior to the procedure after discussion of the risks, benefits and alternatives, and expected outcomes were discussed with the patient. The possibilities of reaction to medication, bleeding, infection, the need for additional procedures, failure to diagnosis a condition, and creating a complication requiring operation were discussed with the patient. The patient concurred with the proposed plan, giving consent. Preparation: Patient was prepped in the usual sterile fashion. The patient was prepped with Chloraprep. [facility] US Unspecified body regionon 04-18-2023 Image Storage This order is to facilitate the storage of the image. [facility] XR HIPS KOURTNEY 5V W PELVISon XR HIPS KOURTNEY 5V W PELVIS EXAMINATION: XR HIPS KOURTNEY 5V W PELVIS HISTORY: Bilateral hip joint pain COMPARISON: No relevant comparison available. FINDINGS: RIGHT FINDINGS: BONES: No acute fracture or dislocation. Mild right hip osteoarthropathy with marginal osteophyte formation SOFT TISSUES: Negative. No visible soft tissue swelling. OTHER: Moderate degenerative changes of the spine LEFT FINDINGS: BONES: No acute fracture or dislocation. Mild right hip osteoarthropathy with marginal osteophyte formation SOFT TISSUES: Negative. No visible soft tissue swelling. OTHER: Negative. IMPRESSION: RIGHT CONCLUSION: Mild degenerative changes LEFT CONCLUSION: Mild degenerative changes Electronically authenticated by: LUIS CARLOS ENCARNACION Date: 2023-01-08 13:57 Normal [facility] XR LSPINE W_OBLS AND FLEX_EX Ton 01-08-2023 XR LSPINE W_OBLS AND FLEX_EXT EXAMINATION: XR LSPINE W_OBLS AND FLEX_EXT HISTORY: Spinal stenosis of lumbar region COMPARISON: 12/18/2022 FINDINGS: BONES: Levocurvature centered at L3. Normal alignment with moderate degenerative spondylosis and moderate to severe facet osteoarthropathy. Posterior decompression L2-L5 DISC SPACES: Moderate to severe multilevel disc space narrowing with endplate sclerosis and vacuum disks PARASPINOUS: Negative. No paraspinous abnormality is seen. OTHER: Atherosclerosis IMPRESSION: Moderate to severe diffuse degenerative changes Electronically authenticated by: LUIS CARLOS ENCARNACION Date: 2023-01-08 14:00 Normal [facility] Hemoglobin A1Con 01-01-2023 Glucose [Mass/Vol] 114 mg/dL Normal [facility] Comment on above: Result Comment: The ADA and AACC recommend providing the estimated average glucose result to permit better patient understanding of their HBA1c result. Performed By: #### L IPR #### [facility] [employer] [facility] [place] [address] Senior Net Software Engineer: Marshall Paulino MD HbA1c (Bld) [Mass fraction] 5.6 % Normal 4.0-6.0 [facility] Comment on above: Performed By: #### L IPR #### [address] [address] Senior Net Software Engineer: Marshall Paulino MD Basic Metab w/rfx MGon 12-31 Anion gap [Moles/Vol] 9 mmol/L Normal 9-17 [facility] Comment on above: Performed By: #### T CHERI, CDP, BMPX #### [facility] [address] [place], [place] [phone] Senior Net Software Engineer: Luis Carlos Del Castillo MD #### GLYHGB #### [address] [address] Senior Net Software Engineer: Marshall Paulino MD BUN/CRE Ratio 39 High 9-20 [facility] Comment on above: Performed By: #### T CHERI, CDP, BMPX #### [facility] [address] [place], [place] [phone] Senior Net Software Engineer: Luis Carlos Del Castillo MD #### GLYHGB #### [address] [address] Senior Net Software Engineer: Marshall Paulino MD Calcium [Mass/Vol] 9.5 mg/dL Normal 8.6-10.4 [facility] Comment on above: Performed By: #### T DARYNI, CDP, BMPX #### [facility] [address] [place], [place] [phone] Senior Net Software Engineer: Luis Carlos Del Castillo MD #### GLYHGB #### [address] [address] Senior Net Software Engineer: Marshall Paulino MD Chloride [Moles/Vol] 106 mmol/L Normal 98-107 [facility] Comment on above: Performed By: #### T ROPI, CDP, BMPX #### [facility] [address] [place] [address] Senior Net Software Engineer: Luis Carlos Del Castillo MD #### GLYHGB #### [facility] [address] [place], [place] [phone] Senior Net Software Engineer: Marshall Paulino MD CO2 [Moles/Vol] 25 mmol/L Normal 20-31 [facility] Comment on above: Performed By: #### T CHERI CDP, BMPX #### [facility] [address] [place] [address] Senior Net Software Engineer: Luis Carlos Del Castillo MD #### GLYHGB #### [facility] [address] [place], [place] [phone] Senior Net Software Engineer: Marshall Paulino MD Creatinine [Mass/Vol] 0.70 mg/dL Normal 0.70-1.20 [facility] Comment on above: Performed By: #### T GEE ALONZO, BMPX #### [address] [place] [address] Senior Net Software Engineer: Luis Carlos Del Castillo MD #### GLYHGB #### [place] [id number] [place], [place] [phone] Senior Net Software Engineer: Marshall Paulino MD GFR/1.73 sq M.predicted among non-blacks MDRD (S/P/Bld) [Vol rate/Area] mL/min/{1.73_m2} Normal >60 [facility] Comment on above: Result Comment: These results are not intended for use in patients <18 years of age. eGFR results are calculated without a race factor using the 2020 CKD-EPI equation. Careful clinical correlation is recommended, particularly when comparing to results calculated using previous equations. The CKD-EPI equation is less accurate in patients with extremes of muscle mass, extra-renal metabolism of creatine, excessive creatine ingestion, or following therapy that affects renal tubular secretion. Performed By: #### T GEE ALONZO, BMPX #### [facility] [address] [place], [place] [phone] Senior Net Software Engineer: Luis Carlos Del Castillo MD #### GLYHGB #### [address] [place], [place] [phone] Senior Net Software Engineer: Mrashall Paulino MD Glucose [Mass/Vol] 103 mg/dL High 70-99 [facility] Comment on above: Performed By: #### T CHERI CDP, BMPX #### [facility] [address] [place], [place] [phone] Senior Net Software Engineer: Luis Carlos Del Castillo MD #### GLYHGB #### [address] [place], [place] [phone] Senior Net Software Engineer: Marshall Paulino MD Potassium [Moles/Vol] 4.3 mmol/L Normal 3.7-5.3 [facility] Comment on above: Performed By: #### GEE ESPAÑA, BMPX #### [facility] [address] [place] [address] Dr. [place], [place] [phone] Senior Net Software Engineer: Luis Carlos Del Castillo MD #### GLYHGB #### [address] [phone] Senior Net Software Engineer: Marshall Paulino MD Sodium [Moles/Vol] 140 mmol/L Normal 135-144 [facility] Comment on above: Performed By: #### T GEE ALONZO, BMPX #### [facility] [address] [place] [address] Dr. [place], [place] [phone] Senior Net Software Engineer: Luis Carlos Del Castillo MD #### GLYHGB #### [address] [place], [place] [phone] Senior Net Software Engineer: Marshall Paulino MD Urea nitrogen [Mass/Vol] 27 mg/dL High 8-23 [facility] Comment on above: Performed By: #### T GEE ALONZO, BMPX #### [facility] [address] [place] [address] [place] [address] Senior Net Software Engineer: Luis Carlos Del Castillo MD #### GLYHGB #### [facility] [employer] [address] [place] [address] Senior Net Software Engineer: Marshall Paulino MD Basic Metabolic Panel w/ Ref maria antonia to MGon 12-31-2022 Anion gap [Moles/Vol] 9 mmol/L 9 - 17 mmol/L [facility] Calcium [Mass/Vol] 9.5 mg/dL 8.6 - 10. 4 mg/dL [facility] Chloride [Moles/Vol] 106 mmol/L 98 - 10 7 mmol/L [facility] CO2 [Moles/Vol] 25 mmol/L 20 - 31 mmol/L [facility] Creatinine [Mass/Vol] 0.7 mg/dL 0.70 - 1.20 mg/dL [facility] [employer] GFR/1.73 sq M.predicted MDRD (S/P/Bld) [Vol rate/Area] - PINF [facility] Comment on above: These results are not intended for use in patients <18 years of age. eGFR results are calculated without a race factor using the 2020 CKD-EPI equation. Careful clinical correlation is recommended, particularly when comparing to results calculated using previous equations. The CKD-EPI equation is less accurate in patients with extremes of muscle mass, extra-renal metabolism of creatine, excessive creatine ingestion, or following therapy that affects renal tubular secretion. Glucose [Mass/Vol] 103 mg/dL High 70 - 99 mg/dL [facility] Interpretation and review of laboratory results Abnormal [facility] Potassium [Moles/Vol] 4.3 mmol/L 3.7 - 5.3 mmol/L [facility] Sodium [Moles/Vol] 140 mmol/L 135 - 144 mmol/L [facility] Urea nitrogen [Mass/Vol] 27 mg/dL High 8 - 23 mg/dL [facility] Urea nitrogen/Creatinine (Bld) [Mass ratio] 39 High 9 - 20 [facility] CARDIAC STRESS TESTon 2022 CARDIAC STRESS TEST [address] [id number] CARDIAC STRESS TEST PATIENT NAME: NOEL ALVA : 1960 MED REC NO: [id number] ROOM: 0327 ACCOUNT NO: [id number] ADMIT DATE: 12/30/2022 PROVIDER: Fany Mohr MD CARDIOVASCULAR DIAGNOSTIC DEPARTMENT DATE OF STUDY: 12/31/2022 ORDERING PROVIDER: Fany Mohr MD PRIMARY CARE PROVIDER: Romario Man MD INTERPRETING PHYSICIAN: Fany Mohr MD EXERCISE MYOCARDIAL PERFUSION STRESS TEST REPORT Rest/Stress single-isotope SPECT imaging with exercise stress and gated SPECT imaging INDICATION: Assessment of recent chest pain and/or discomfort. CLINICAL HISTORY: The patient is a 62-year-old man with known coronary artery disease. Previous cardiac history includes: Coronary artery disease, stress test, cardiac catheterization, percutaneous transluminal coronary angioplasty. Other previous history includes: Chest pain, caffeine. Symptoms just prior to testing included: None. Relevant medications: Metoprolol (Toprol). Amlodipine (Norvasc). PROCEDURE: The patient performed treadmill exercise using a Matteo protocol, completing 9:09 minutes and completing an estimated workload of 10.10 metabolic equivalents (METS). The test was terminated due to fatigue and shortness of breath. The heart rate was 74 beats per minute at baseline and increased to 144 beats per minute at peak exercise, which was 91% of the maximum predicted heart rate. The rest blood pressure was 110/80 mmHg and increased to 120/86 mmHg, which is a normal response. During the procedure, the patient developed fatigue, shortness of breath and leg fatigue, but denied any chest discomfort. Myocardial perfusion imaging: Imaging was performed at rest 30-45 minutes following the injection of 10 mCi of sestamibi. At peak exercise, the patient was injected with 30 mCi of sestamibi and exercise was continued for 1 minute. Gating post-stress tomographic imaging was performed 30-45 minutes after stress. STRESS ECG RESULTS: The resting electrocardiogram demonstrated normal sinus rhythm without definitive ST-segment abnormalities suggestive of myocardial ischemia. At peak exercise and during recovery, the patient developed: No significant ST segment changes suggestive of myocardial ischemia with occasional premature atrial contractions (PACs) and no premature ventricular contractions (PVCs). NUCLEAR IMAGING RESULTS: The overall quality of the study is fair. No significant attenuation artifact was seen. There is no evidence of abnormal lung uptake. Additionally, the right ventricle appears normal. The left ventricular cavity is noted to be normal in size on the stress images. There is no evidence of transient ischemic dilatation (TID) of the left ventricle. Gated SPECT imaging reveals normal myocardial thickening and wall motion with a calculated left ventricular ejection fraction of 77%. The rest images demonstrated a small to moderate perfusion abnormality of mild intensity in the inferior region which is most likely due to artifact. SPECT images demonstrate homogeneous tracer distribution throughout the myocardium. IMPRESSION: 1. Largely normal myocardial perfusion imaging with soft tissue artifact, but without significant evidence of myocardial ischemia or infarction. 2. Global left ventricular systolic function was normal with an ejection fraction of 77%, without regional wall motion abnormalities. 3. No significant electrocardiographic evidence of myocardial ischemia during EKG monitoring without significant associated arrhythmias. The patient's Cruz Treadmill score is 7, which correlates with a low risk for significant coronary artery disease. Overall, these results are most consistent with a low risk scan. Although the patient's results were not completely normal, unless clinical suspicion for significant ongoing coronary artery ischemia is high, I would not suggest pursuing additional testing by coronary angiography. The sensitivity for detecting ischemia on this test may have been reduced due to the patient being on a beta sarah and a calcium channel sarah. FANY MOHR MD MIRIAN/BILLY_LUCIAN Doc#: Unknown CC: Romario Man Normal [facility] CBC with Auto Differentialon 12-31-2022 Absolute Eos # 0.18 [facility] Absolute Immature Granulocyte [facility] Absolute Lymph # 1.58 [facility] Absolute [place] # 0.72 [facility] Basophils (Bld) [#/Vol] 0.05 10*3/uL [facility] Interpretation and review of laboratory results Abnormal [facility] NRBC Automated 0.0 0.0 per 100 WBC [facility] Platelet distribution width (Bld) [Ratio] 13.9 % 11.8 - 14.4 % [facility] Segmented neutrophils/100 WBC (Bld) 62 % 36 - 65 % [facility] Segs Absolute 4.27 [facility] CBC with Diffon 12-31-2022 Abs. Basophil 0.05 k/uL Normal 0.00-0.20 [facility] Comment on above: Performed By: #### T GEE ALONZO, BMPX #### [facility] [address] [place] [address] Senior Net Software Engineer: Luis Carlos Del Castillo MD #### GLYHGB #### [address] [phone] Senior Net Software Engineer: Marshall Paulino MD Abs.Imm.Granulocyte <0.03 Normal 0.00-0.30 [facility] Comment on above: Performed By: #### T GEE ALONZO, BMPX #### [facility] [address] [place] [address] Senior Net Software Engineer: Luis Carlos Del Castillo MD #### GLYHGB #### [place] [phone] Senior Net Software Engineer: Marshall Paulino MD Abs.Neutrophil (Seg) 4.27 k/uL Normal 1.50-8.10 [facility] Comment on above: Performed By: #### T GEE ALONZO, BMPX #### [facility] [address] [place] [address] Dr. [place] [phone] Senior Net Software Engineer: Luis Carlos Del Castillo MD #### GLYHGB #### [address] [phone] Senior Net Software Engineer: Marshall Paulino MD Eosinophils (Bld) [#/Vol] 0.18 10*3/uL Normal 0.00-0.44 [facility] Comment on above: Performed By: #### T GEE ALONZO, BMPX #### [facility] [address] [place] [address] Senior Net Software Engineer: Luis Carlos Del Castillo MD #### GLYHGB #### [address] [address] Senior Net Software Engineer: Marshall Paulino MD Erythrocyte distribution width (RBC) [Ratio] 13.9 % Normal 11.8-14.4 [facility] Comment on above: Performed By: #### T CHERI, CDP, BMPX #### [facility] [address] [place] [address] Dr. [place] [phone] Senior Net Software Engineer: Luis Carlos Del Castillo MD #### GLYHGB #### [address] [address] Senior Net Software Engineer: Marshall Paulino MD Lymphocytes (Bld) [#/Vol] 1.58 10*3/uL Normal 1.10-3.70 [facility] Comment on above: Performed By: #### T CHERI CDP, BMPX #### [address] [place] [phone] Senior Net Software Engineer: Luis Carlos Del Castillo MD #### GLYHGB #### [address] [address] Senior Net Software Engineer: Marshall Paulino MD Monocytes (Bld) [#/Vol] 0.72 10*3/uL Normal 0.10-1.20 [facility] Comment on above: Performed By: #### T CHERI CDP, BMPX #### [facility] [address] [place] [address] Dr. [place] [phone] Senior Net Software Engineer: Luis Carlos Del Castillo MD #### GLYHGB #### [address] [address] Senior Net Software Engineer: Marshall Paulino MD Neutrophil (Seg) 62 % Normal 36-65 [facility] Comment on above: Performed By: #### T CHERI, CDP, BMPX #### [facility] [address] [place] [address] Dr. [place] [phone] Senior Net Software Engineer: Luis Carlos Del Castillo MD #### GLYHGB #### [address] [phone] Senior Net Software Engineer: Marshall Paulino MD NRBC Automated 0.0 per 100 WBC Normal 0.0 [facility] Comment on above: Performed By: #### GEE ESPAÑA, BMPX #### [address] [place], [place] [phone] Senior Net Software Engineer: Luis Carlos Del Castillo MD #### GLYHGB #### [address] [address] Senior Net Software Engineer: Marshall Paulino MD Basophils/100 WBC (Bld) 1 % Normal 0-2 [facility] Comment on above: Performed By: #### T GEE ALONZO, BMPX #### [address] [place] [phone] Senior Net Software Engineer: Luis Carlos Del Castillo MD #### GLYHGB #### [address] [address] Senior Net Software Engineer: Marshall Paulino MD Eosinophils/100 WBC (Bld) 3 % Normal 1-4 [facility] Comment on above: Performed By: #### T GEE ALONZO, BMPX #### [address] [place] [phone] Senior Net Software Engineer: Luis Carlos Del Castillo MD #### GLYHGB #### [address] [address] Senior Net Software Engineer: Marshall Paulino MD Hematocrit (Bld) [Volume fraction] 40.4 % Low 40.7-50.3 [facility] Comment on above: Performed By: #### T GEE ALONZO, BMPX #### [address] [place] [address] Senior Net Software Engineer: Luis Carlos Del Castillo MD #### GLYHGB #### [address] [address] Senior Net Software Engineer: Marshall Paulino MD Hemoglobin (Bld) [Mass/Vol] 13.5 g/dL Normal 13.0-17.0 [facility] Comment on above: Performed By: #### T GEE ALONZO, BMPX #### [address] [place], [place] [phone] Senior Net Software Engineer: Luis Carlos Del Castillo MD #### GLYHGB #### [address] [phone] Senior Net Software Engineer: Marshall Paulino MD Immature granulocytes/100 WBC (Bld) 0 % Normal 0 [facility] Comment on above: Performed By: #### T GEE ALONZO, BMPX #### [address] [place] [phone] Senior Net Software Engineer: Luis Carlos Del Castillo MD #### GLYHGB #### [address] [address] Senior Net Software Engineer: Marshall Paulino MD Lymphocytes/100 WBC (Bld) 23 % Low 24-43 [facility] Comment on above: Performed By: #### T GEE ALONZO, BMPX #### [address] [place] [phone] Senior Net Software Engineer: Luis Carlos Del Castillo MD #### GLYHGB #### [address] [address] Senior Net Software Engineer: Marshall Paulino MD MCH (RBC) [Entitic mass] 31.2 pg Normal 25.2-33.5 [facility] Comment on above: Performed By: #### T GEE ALONZO, BMPX #### [address] [place] [address] Senior Net Software Engineer: Luis Carlos Del Castillo MD #### GLYHGB #### [address] [phone] Senior Net Software Engineer: Marshall Paulino MD MCHC (RBC) [Mass/Vol] 33.4 g/dL Normal 28.4-34.8 [facility] Comment on above: Performed By: #### T GEE ALONZO, BMPX #### [address] [place] [phone] Senior Net Software Engineer: Luis Carlos Del Castillo MD #### GLYHGB #### [address] [phone] Senior Net Software Engineer: Marshall Paulino MD MCV (RBC) [Entitic vol] 93.3 fL Normal 82.6-102.9 [facility] Comment on above: Performed By: #### GEE ESPAÑA, BMPX #### [address] [place] [phone] Senior Net Software Engineer: Luis Carlos Del Castillo MD #### GLYHGB #### [place] [phone] Senior Net Software Engineer: Marshall Paulino MD Monocytes/100 WBC (Bld) 11 % Normal 3-12 [facility] Comment on above: Performed By: #### T GEE ALONZO, BMPX #### [address] [place] [phone] Senior Net Software Engineer: Luis Carlos Del Castillo MD #### GLYHGB #### [place] [address] Senior Net Software Engineer: Marshall Paulino MD Platelet mean volume (Bld) [Entitic vol] 10.1 fL Normal 8.1-13.5 [facility] Comment on above: Performed By: #### GEE ESPAÑA, BMPX #### [address] [place] [phone] Senior Net Software Engineer: Luis Carlos Del Castillo MD #### GLYHGB #### [address] [place] [address] Senior Net Software Engineer: Marshall Paulino MD Platelets (Bld) [#/Vol] 190 10*3/uL Normal 138-453 [facility] Comment on above: Performed By: #### T CHERI, CDP, BMPX #### [address] [place] [address] Senior Net Software Engineer: Luis Carlos Del Castillo MD #### GLYHGB #### [address] [phone] Senior Net Software Engineer: Marshall Paulino MD RBC (Bld) [#/Vol] 4.33 10*6/uL Normal 4.21-5.77 [facility] Comment on above: Performed By: #### T CHERI CDP, BMPX #### [address] [place] [address] Senior Net Software Engineer: Luis Carlos Del Castillo MD #### GLYHGB #### [address] [address] Senior Net Software Engineer: Marshall Paulino MD WBC (Bld) [#/Vol] 6.8 10*3/uL Normal 3.5-11.3 [facility] Comment on above: Performed By: #### T GEE ALONZO, BMPX #### [address] [place] [address] Senior Net Software Engineer: Luis Carlos Del Castillo MD #### GLYHGB #### [address] [phone] Senior Net Software Engineer: Marshall Paulino MD EKG 12 leadon 12-31-2022 Atrial Rate 51 BPM [facility] Work Phone: P [place] 51 degrees [facility] Work Phone: P-R Interval 144 ms [facility] Work Phone: Q-T Interval 490 ms [employer] Work Phone: QRS Duration 72 ms [employer] [place] [employer] Work Phone: QTc Calculation (Bazett) 451 ms [employer] Work Phone: R [place] 47 degrees [employer] [place] [employer] Work Phone: T [place] 91 degrees [employer] Work Phone: Ventricular Rate 51 BPM [employer] LEE [employer] Work Phone: Sinus bradycardia T wave abnormality, consider lateral ischemia Abnormal ECG When compared with ECG of 30-DEC-2022 06:16, Inverted T waves have replaced nonspecific T wave abnormality in Anterior leads QT has lengthened Confirmed by Fany Mohr MD ([id number]) on 12/31/2022 1:07:24 PM [facility] RADI[facility] Fany Mohr MD - 12/31/2022 Sinus bradycardia T wave abnormality, consider lateral ischemia Abnormal ECG When compared with ECG of 30-DEC-2022 06:16, Inverted T waves have replaced nonspecific T wave abnormality in Anterior leads QT has lengthened Confirmed by Fany Mohr MD ([id number]) on 12/31/2022 1:07:24 PM [facility] [employer] Work Phone: [employer] Work Phone: EKG Rhythm Stripon 3 [facility] Lipid Panelon 12-31-2022 Cholesterol [Mass/Vol] 103 mg/dL NINF - 200 mg/dL [facility] [employer] Comment on above: Cholesterol Guidelines: <200 Desirable 200-240 Borderline >240 Undesirable Cholesterol in HDL [Mass/Vol] 44 mg/dL 40 - PINF mg/dL [facility] [employer] Comment on above: HDL Guidelines: <40 Undesirable 40-59 Borderline >59 Desirable Cholesterol in LDL [Mass/Vol] 46 mg/dL 0 - 130 mg/dL [facility] Comment on above: LDL Guidelines: <100 Desirable 100-129 Near to/above Desirable 130-159 Borderline >159 Undesirable Direct (measured) LDL and calculated LDL are not interchangeable tests. Cholesterol.total/Ch olesterol in HDL [Mass ratio] 2.3 {ratio} NINF - 5 [facility] Triglyceride [Mass/Vol] 67 mg/dL NINF - 150 mg/dL [facility] Comment on above: Triglyceride Guidelines: <150 Desirable 150-199 Borderline 200-499 High >499 Very high Based on AHA Guidelines for fasting triglyceride, July 2012. [facility] Lipid Profileon 12-31-2022 Cholesterol [Mass/Vol] 103 mg/dL Normal <200 [facility] Comment on above: Result Comment: Cholesterol Guidelines: <200 Desirable 200-240 Borderline >240 Undesirable Performed By: #### L IPR #### [employer] [address] [place] [address] [phone] Senior Net Software Engineer: Marshall Paulino MD Cholesterol in HDL [Mass/Vol] 44 mg/dL Normal >40 [facility] Comment on above: Result Comment: HDL Guidelines: <40 Undesirable 40-59 Borderline >59 Desirable Performed By: #### L IPR #### [employer] [address] [place] [address] [phone] Senior Net Software Engineer: Marshall Paulino MD Cholesterol in LDL [Mass/Vol] 46 mg/dL Normal 0-130 [facility] Comment on above: Result Comment: LDL Guidelines: <100 Desirable 100-129 Near to/above Desirable 130-159 Borderline >159 Undesirable Direct (measured) LDL and calculated LDL are not interchangeable tests. Performed By: #### L IPR #### [employer] [address] [place] [address] [phone] Senior Net Software Engineer: Marshall Paulino MD Cholesterol.total/Ch olesterol in HDL [Mass ratio] 2.3 {ratio} Normal <5 [facility] Comment on above: Performed By: #### L IPR #### [employer] [address] [place] [address] [phone] Senior Net Software Engineer: Marshall Paulino MD Triglyceride [Mass/Vol] 67 mg/dL Normal <150 [facility] Comment on above: Result Comment: Triglyceride Guidelines: <150 Desirable 150-199 Borderline 200-499 High >499 Very high Based on AHA Guidelines for fasting triglyceride, July 2012. Performed By: #### L IPR #### [facility] [address] [place] [address] [phone] Senior Net Software Engineer: Marshall Paulino MD Resp Viral Panelon 3 Adenovirus Not detected Normal [facility] Comment on above: Performed By: #### L IPR #### [facility] [employer] [address] [place] [address] [phone] Senior Net Software Engineer: MD Kat Martint.parapertussis Not detected Normal [facility] Comment on above: Performed By: #### L IPR #### [facility] [address] [place] [phone] Senior Net Software Engineer: Marshall Paulino MD Bordetella pertussis Not detected Normal [facility] Comment on above: Performed By: #### L IPR #### [facility] [employer] [address] [place] [address] [phone] Senior Net Software Engineer: Marshall Paulino MD Chlamyd.pneumoniae Not detected Normal [facility] Comment on above: Performed By: #### L IPR #### [facility] [address] [place] [address] [phone] Senior Net Software Engineer: Marshall Paulino MD Coronavirus 229E Not detected Normal [facility] Comment on above: Performed By: #### L IPR #### [facility] [address] [place] [address] [phone] Senior Net Software Engineer: Marshall Paulino MD Coronavirus HKU1 Not detected Normal [facility] Comment on above: Performed By: #### L IPR #### [facility] [address] [place] [address] [phone] Senior Net Software Engineer: Marshall Paulino MD Coronavirus NL63 Not detected Normal [facility] Comment on above: Performed By: #### L IPR #### [address] [address] Senior Net Software Engineer: Marshall Paulino MD Coronavirus OC43 Not detected Normal [facility] Comment on above: Performed By: #### L IPR #### [address] [address] Senior Net Software Engineer: Marshall Paulino MD Human Metapneumo Not detected [facility] Comment on above: Performed By: #### L IPR #### [address] [address] Senior Net Software Engineer: Marshall Paulino MD Influenza A Not detected [facility] Comment on above: Performed By: #### L IPR #### [address] [address] Senior Net Software Engineer: Marshall Paulino MD Influenza B Not detected [facility] Comment on above: Performed By: #### L IPR #### [address] [address] Senior Net Software Engineer: Marshall Paulino MD Mycoplas.pneumoniae Not detected Normal [facility] Comment on above: Result Comment: Perf ormed by multiplexed nucleic acid assay. Performed By: #### L IPR #### [address] [address] Senior Net Software Engineer: Marshall Paulino MD Parainfluenza 1 Not detected Normal [facility] Comment on above: Performed By: #### L IPR #### [address] [address] Senior Net Software Engineer: Marshall Paulino MD Parainfluenza 2 Not detected Normal [facility] Comment on above: Performed By: #### L IPR #### [employer] [address] [place] [address] [phone] Senior Net Software Engineer: Marshall Paulino MD Parainfluenza 3 Not detected Normal [facility] Comment on above: Performed By: #### L IPR #### [facility] [address] [place] [address] [phone] Senior Net Software Engineer: Marshall Paulino MD Parainfluenza 4 Not detected Normal [facility] Comment on above: Performed By: #### L IPR #### [facility] [employer] [address] [place] [address] 49531 Senior Net Software Engineer: Marshall Paulino MD Resp Syncytial Virus Not detected Normal [facility] Comment on above: Performed By: #### L IPR #### [address] [address] Senior Net Software Engineer: Marshall Paulino MD Rhino/Enterovirus Not detected Normal [facility] Comment on above: Performed By: #### L IPR #### [address] [address] Senior Net Software Engineer: Marshall Paulino MD SARS-CoV-2 (COVID-19) RNA DAHLIA+probe Ql (Unsp spec) Not detected Normal [facility] Comment on above: Performed By: #### L IPR #### [facility] [employer] [address] [place] [address] [phone] Senior Net Software Engineer: Marshall Paulino MD Respiratory Panel, Molecular , with COVID-19 (Restricted: peds pts or suitable admitted adults)on 12-31-2022 Adenovirus PCR Not detected Not Detected [facility] B. parapertussis [id number] DNA DAHLIA+non-probe Ql (Nph) Not detected Not Detected [facility] B. pertussis DNA DAHLIA+probe Ql (Unsp spec) Not detected Not Detected [facility] Chlamydia pneumoniae By PCR Not detected Not Detected [facility] Coronavirus 229E PCR Not detected Not Detected [facility] Coronavirus HKU1 PCR Not detected Not Detected [facility] Coronavirus NL63 PCR Not detected Not Detected [facility] Coronavirus OC43 PCR Not detected Not Detected [facility] FLUAV RNA DAHLIA+non-probe Ql (Nph) Not detected Not Detected [facility] FLUBV RNA DAHLIA+non-probe Ql (Nph) Not detected Not Detected [facility] Human Metapneumovirus PCR Not detected Not Detected [facility] Mycoplasma pneumo by PCR Not detected Not Detected [facility] Comment on above: Performed by [employer] nucleic acid assay. Parainfluenza 1 PCR Not detected Not Detected [facility] Parainfluenza 2 PCR Not detected Not Detected [facility] Parainfluenza 3 PCR Not detected Not Detected [facility] Parainfluenza 4 PCR Not detected Not Detected [facility] Resp Syncytial Virus PCR Not detected Not Detected [facility] Rhino/Enterovirus PCR Not detected Not Detected [facility] SARS-CoV-2 (COVID-19) RNA DAHLIA+non-probe Ql (Nph) Not detected Not Detected [facility] Specimen Description .NASOPHARYNGEAL SWAB [facility] Troponinon 12-31-2022 Troponin, High Sens 18 ng/L Normal 0-22 [facility] Comment on above: Result Comment: High Sensitivity Troponin values cannot be compared with other Troponin methodologies. Performed By: #### T GEE ALONZO, BMPX #### [facility] [address] [place] [address] Senior Net Software Engineer: Luis Carlos Del Castillo MD #### GLYHGB #### [facility] [address] [place] [address] Senior Net Software Engineer: Marshall Paulino MD Troponin I.cardiac DL <= 0.01 ng/mL [Mass/Vol] 18 ng/L 0 - 22 ng/L [facility] Comment on above: High Sensitivity Tro ponin values cannot be compared with other Troponin methodologies. [facility] Brain Natri. Peptideon 03-27 -2023 Natriuretic peptide B (Bld) [Mass/Vol] 308 pg/mL High <300 [facility] Comment on above: Result Comment: An age-independent cutoff point of 300 pg/ml has a 98% negative predictive value excluding acute heart failure. Performed By: #### B SCHOOL STANDARDS COACH #### [facility] [address] [place] [address] Senior Net Software Engineer: Luis Carlos Del Castillo MD Brain Natriuretic Peptideon 12-30-2022 Interpretation and review of laboratory results Abnormal [facility] Natriuretic peptide B (Bld) [Mass/Vol] 308 pg/mL High NINF - 300 pg/mL [facility] Comment on above: An age-independent cutoff point of 300 pg/ml has a 98% negative predictive value excluding acute heart failure. [facility] CBC with Auto Differentialon 12-30-2022 Absolute Eos # 0.07 [facility] Absolute Immature Granulocyte 0.04 [facility] Absolute Lymph # 1.83 [facility] Absolute [place] # 0.91 [facility] Basophils (Bld) [#/Vol] 0.06 10*3/uL [facility] Basophils/100 WBC (Bld) 1 % 0 - 2 % [facility] Eosinophils/100 WBC (Bld) 1 % 1 - 4 % [facility] Hematocrit (Bld) [Volume fraction] 39.6 % Low 40.7 - 50.3 % [facility] Hemoglobin (Bld) [Mass/Vol] 13.8 g/dL 13.0 - 17.0 g/dL [facility] Immature granulocytes/100 WBC (Bld) 0 % 0 [facility] Interpretation and review of laboratory results Abnormal [facility] Lymphocytes/100 WBC (Bld) 18 % Low 24 - 43 % [facility] MCH (RBC) [Entitic mass] 31.8 pg 25.2 - 33.5 pg [facility] MCHC (RBC) [Mass/Vol] 34.8 g/dL 28.4 - 34.8 g/dL [facility] MCV (RBC) [Entitic vol] 91.2 fL 82.6 - 102.9 fL [facility] Monocytes/100 WBC (Bld) 9 % 3 - 12 % [facility] NRBC Automated 0.0 0.0 per 100 WBC [facility] Platelet distribution width (Bld) [Ratio] 13.5 % 11.8 - 14.4 % [facility] Platelet mean volume (Bld) [Entitic vol] 9.9 fL 8.1 - 13.5 fL [facility] Platelets (Bld) [#/Vol] 189 10*3/uL [facility] RBC (Bld) [#/Vol] 4.34 10*6/uL 4.21 - 5.77 m/uL [facility] Segmented neutrophils/100 WBC (Bld) 71 % High 36 - 65 % [facility] Segs Absolute 7.15 [facility] WBC (Bld) [#/Vol] 10.1 10*3/uL [facility] CBC with Diffon 12-30-2022 Abs. Basophil 0.06 k/uL Normal 0.00-0.20 [facility] Comment on above: Performed By: #### Ileana ALONZO CP, CDP #### [facility] [address] [place] [address] [place] [phone] Senior Net Software Engineer: Luis Carlos Del Castillo MD Abs.Imm.Granulocyte 0.04 k/uL Normal 0.00-0.30 [facility] Comment on above: Performed By: #### Ileana ALONZO CP, CDP #### [facility] [address] [place] [phone] Senior Net Software Engineer: Luis Carlos Del Castillo MD Abs.Neutrophil (Seg) 7.15 k/uL Normal 1.50-8.10 [facility] Comment on above: Performed By: #### Ileana ALONZO CP, CDP #### [facility] [address] [place] [address] Senior Net Software Engineer: Luis Carlos Del Castillo MD Basophils/100 WBC (Bld) 1 % Normal 0-2 [facility] Comment on above: Performed By: #### T NATHAN ALONZO, CDP #### [facility] [address] [place], [place] [phone] Senior Net Software Engineer: Luis Carlos Del Castillo MD Eosinophils (Bld) [#/Vol] 0.07 10*3/uL Normal 0.00-0.44 [facility] Comment on above: Performed By: #### Ileana ALONZO CP, CDP #### [facility] [address] [place] [address] Senior Net Software Engineer: Luis Carlos Del Castillo MD Eosinophils/100 WBC (Bld) 1 % Normal 1-4 [facility] Comment on above: Performed By: #### Ileana ALONZO CP, CDP #### [address] [place], [place] [phone] Senior Net Software Engineer: Luis Carlos Del Castillo MD Erythrocyte distribution width (RBC) [Ratio] 13.5 % Normal 11.8-14.4 [facility] Comment on above: Performed By: #### Ileana ALONZO CP, CDP #### [address] [place], [place] [phone] Senior Net Software Engineer: Luis Carlos Del Castillo MD Hematocrit (Bld) [Volume fraction] 39.6 % Low 40.7-50.3 [facility] Comment on above: Performed By: #### Ileana ALONZO CP, CDP #### [address] [place], [place] [phone] Senior Net Software Engineer: Luis Carlos Del Castillo MD Hemoglobin (Bld) [Mass/Vol] 13.8 g/dL Normal 13.0-17.0 [facility] Comment on above: Performed By: #### Ileana ALONZO CP, CDP #### [facility] [address] [place], [place] [phone] Senior Net Software Engineer: Luis Carlos Del Castillo MD Immature granulocytes/100 WBC (Bld) 0 % Normal 0 [facility] Comment on above: Performed By: #### Ileana ALONZO CP, CDP #### [facility] [address] [place], [place] [phone] Senior Net Software Engineer: Luis Carlos Del Castillo MD Lymphocytes (Bld) [#/Vol] 1.83 10*3/uL Normal 1.10-3.70 [facility] Comment on above: Performed By: #### Ileana ALONZO CP, CDP #### [facility] [address] [place], [place] [phone] Senior Net Software Engineer: Luis Carlos Del Castillo MD Lymphocytes/100 WBC (Bld) 18 % Low 24-43 [facility] Comment on above: Performed By: #### Ileana ALONZO CP, CDP #### [address] [place], [place] [phone] Senior Net Software Engineer: Luis Carlos Del Castillo MD MCH (RBC) [Entitic mass] 31.8 pg Normal 25.2-33.5 [facility] Comment on above: Performed By: #### Ileana ALONZO CP, CDP #### [address] [place], [place] [phone] Senior Net Software Engineer: Luis Carlos Del Castillo MD MCHC (RBC) [Mass/Vol] 34.8 g/dL Normal 28.4-34.8 [facility] Comment on above: Performed By: #### Ileana ALONZO CP, CDP #### [address] [place], [facility] Senior Net Software Engineer: Luis Carlos Del Castillo MD MCV (RBC) [Entitic vol] 91.2 fL Normal 82.6-102.9 [facility] Comment on above: Performed By: #### Ileana ALONZO CP, CDP #### [address] [place], [place] [phone] Senior Net Software Engineer: Luis Carlos Del Castillo MD Monocytes (Bld) [#/Vol] 0.91 10*3/uL Normal 0.10-1.20 [facility] Comment on above: Performed By: #### Ileana ALONZO CP, CDP #### [facility] [address] [place], [place] [phone] Senior Net Software Engineer: Luis Carlos Del Castillo MD Monocytes/100 WBC (Bld) 9 % Normal 3-12 [facility] Comment on above: Performed By: #### Ileana ALONZO CP, CDP #### [facility] [address] [place], [place] [phone] Senior Net Software Engineer: Luis Carlos Del Castillo MD Neutrophil (Seg) 71 % High 36-65 [facility] Comment on above: Performed By: #### Ileana ALONZO CP, CDP #### [address] [place], [place] [phone] Senior Net Software Engineer: Luis Carlos Del Castillo MD NRBC Automated 0.0 per 100 WBC Normal 0.0 [facility] Comment on above: Performed By: #### Ileana ALONZO CP, CDP #### [address] [place], [place] [phone] Senior Net Software Engineer: uLis Carlos Del Castillo MD Platelet mean volume (Bld) [Entitic vol] 9.9 fL Normal 8.1-13.5 [facility] Comment on above: Performed By: #### Ileana ALONZO CP, CDP #### [address] [place], [place] [phone] Senior Net Software Engineer: Luis Carlos Del Castillo MD Platelets (Bld) [#/Vol] 189 10*3/uL Normal 138-453 [facility] Comment on above: Performed By: #### Ileana ALONZO CP, CDP #### [address] [place], [place] [phone] Senior Net Software Engineer: Luis Carlos Del Castillo MD RBC (Bld) [#/Vol] 4.34 10*6/uL Normal 4.21-5.77 [facility] Comment on above: Performed By: #### Ileana ALONZO CP, CDP #### [address] [place], [place] [phone] Senior Net Software Engineer: Luis Carlos Del Castillo MD WBC (Bld) [#/Vol] 10.1 10*3/uL Normal 3.5-11.3 [facility] Comment on above: Performed By: #### T NAHTAN ALONZO, CDP #### [facility] [address] [place], [place] [phone] Senior Net Software Engineer: Luis Carlos Del Castillo MD COVID-19, Rapidon 12-30-2022 SARS-CoV-2 (COVID-19) RdRp gene DAHLIA+probe Ql (Resp) Not detected Not Detected [facility] Comment on above: Rapid NAAT: The specimen is NEGATIVE for SARS-CoV-2, the novel coronavirus associated with COVID-19. The ID NOW COVID-19 assay is designed to detect the virus that causes COVID-19 in patients with signs and symptoms of infection who are suspected of COVID-19. An individual without symptoms of COVID-19 and who is not shedding SARS-CoV-2 virus would expect to have a negative (not detected) result in this assay. Negative results should be treated as presumptive and, if inconsistent with clinical signs and symptoms or necessary for patient management, should be tested with an alternative molecular assay. Negative results do not preclude SARS-CoV-2 infection and should not be used as the sole basis for patient management decisions. Fact sheet for Healthcare Providers: https://www.fda.gov/media/032043/download Fact sheet for Patients: https://www.fda.gov/media/601571/download Methodology: Isothermal Nucleic Acid Amplification Specimen Description .NASOPHARYNGEAL SWAB [facility] CT CHEST PULMONARY EMBOLISM W CONTRASTon 12-30-2022 CT CHEST PULMONARY EMBOLISM W CONTRAST EXAMINATION: CTA OF THE CHEST 12/30/2022 8:47 am TECHNIQUE: CTA of the chest was performed after the administration of intravenous contrast. Multiplanar reformatted images are provided for review. MIP images are provided for review. Automated exposure control, iterative reconstruction, and/or weight based adjustment of the mA/kV was utilized to reduce the radiation dose to as low as reasonably achievable. COMPARISON: None. HISTORY: ORDERING SYSTEM PROVIDED HISTORY: chest pain TECHNOLOGIST PROVIDED HISTORY: chest pain Decision Support Exception - unselect if not a suspected or confirmed emergency medical condition->Emergency Medical Condition (MA) FINDINGS: Pulmonary Arteries: Pulmonary arteries are adequately opacified for evaluation. No evidence of intraluminal filling defect to suggest pulmonary embolism. Main pulmonary artery is normal in caliber. Mediastinum: There is a right-sided aortic arch. There is wall thickening in the esophagus with large hiatal hernia the Lungs/pleura: There are bilateral patchy pulmonary infiltrates which are predominantly peripheral. There is a calcified granuloma in the anterior aspect of the right lung. No pleural effusion or pneumothorax is seen. Upper Abdomen: Limited images of the upper abdomen are unremarkable. Soft Tissues/Bones: No acute bone or soft tissue abnormality. IMPRESSION: Negative for acute pulmonary embolus Right-sided aortic arch Bilateral patchy pulmonary infiltrates which are predominantly peripheral which may be related atypical infectious etiology. Large hiatal hernia and wall thickening in the distal esophagus. An esophagram or endoscopy may be helpful for further evaluation if clinically indicated. Interpreted by: Dov Love MD Signed by: Dov Love MD 12/30/22 Final result Normal [facility] Negative for acute pulmonary embolus Right-sided aortic arch Bilateral patchy pulmonary infiltrates which are predominantly peripheral which may be related atypical infectious etiology. Large hiatal hernia and wall thickening in the distal esophagus. An esophagram or endoscopy may be helpful for further evaluation if clinically indicated. [facility] RIS CONSOLIDATED EXAMINATION: CTA OF THE CHEST 12/30/2022 8:47 am TECHNIQUE: CTA of the chest was performed after the administration of intravenous contrast. Multiplanar reformatted images are provided for review. MIP images are provided for review. Automated exposure control, iterative reconstruction, and/or weight based adjustment of the mA/kV was utilized to reduce the radiation dose to as low as reasonably achievable. COMPARISON: None. HISTORY: ORDERING SYSTEM PROVIDED HISTORY: chest pain TECHNOLOGIST PROVIDED HISTORY: chest pain Decision Support Exception - unselect if not a suspected or confirmed emergency medical condition->Emergency Medical Condition (MA) FINDINGS: Pulmonary Arteries: Pulmonary arteries are adequately opacified for evaluation. No evidence of intraluminal filling defect to suggest pulmonary embolism. Main pulmonary artery is normal in caliber. Mediastinum: There is a right-sided aortic arch. There is wall thickening in the esophagus with large hiatal hernia the Lungs/pleura: There are bilateral patchy pulmonary infiltrates which are predominantly peripheral. There is a calcified granuloma in the anterior aspect of the right lung. No pleural effusion or pneumothorax is seen. Upper Abdomen: Limited images of the upper abdomen are unremarkable. Soft Tissues/Bones: No acute bone or soft tissue abnormality. [facility] RIS CONSOLIDATED Dov Love MD - 12/30/2022 EXAMINATION: CTA OF THE CHEST 12/30/2022 8:47 am TECHNIQUE: CTA of the chest was performed after the administration of intravenous contrast. Multiplanar reformatted images are provided for review. MIP images are provided for review. Automated exposure control, iterative reconstruction, and/or weight based adjustment of the mA/kV was utilized to reduce the radiation dose to as low as reasonably achievable. COMPARISON: None. HISTORY: ORDERING SYSTEM PROVIDED HISTORY: chest pain TECHNOLOGIST PROVIDED HISTORY: chest pain Decision Support Exception - unselect if not a suspected or confirmed emergency medical condition->Emergency Medical Condition (MA) FINDINGS: Pulmonary Arteries: Pulmonary arteries are adequately opacified for evaluation. No evidence of intraluminal filling defect to suggest pulmonary embolism. Main pulmonary artery is normal in caliber. Mediastinum: There is a right-sided aortic arch. There is wall thickening in the esophagus with large hiatal hernia the Lungs/pleura: There are bilateral patchy pulmonary infiltrates which are predominantly peripheral. There is a calcified granuloma in the anterior aspect of the right lung. No pleural effusion or pneumothorax is seen. Upper Abdomen: Limited images of the upper abdomen are unremarkable. Soft Tissues/Bones: No acute bone or soft tissue abnormality. IMPRESSION: Negative for acute pulmonary embolus Right-sided aortic arch Bilateral patchy pulmonary infiltrates which are predominantly peripheral which may be related atypical infectious etiology. Large hiatal hernia and wall thickening in the distal esophagus. An esophagram or endoscopy may be helpful for further evaluation if clinically indicated. [employer] Phone: Radiology Study observation (narrative) [employer] Phone: CT CHEST PULMONARY EMBOLISM W CONTRASTOrdered By: Dov Love on 12-30-2022 [facility] [facility] [employer] Phone: Comp Metabolic Profon 2022 Albumin [Mass/Vol] 3.9 g/dL Normal 3.5-5.2 [facility] Comment on above: Performed By: #### T NATHAN ALONZO, CDP #### [facility] [address] [place], [place] [id number] Senior Net Software Engineer: Luis Carlos Del Castillo MD Albumin/Glob Ratio 1.3 Normal 1.0-2.5 [facility] Comment on above: Performed By: #### T NATHAN ALONZO, CDP #### [facility] [address] [place], [place] [id number] Senior Net Software Engineer: Luis Carlos Del Castillo MD Alkaline Phos 102 U/L Normal 40-129 [facility] Comment on above: Performed By: #### T NATHAN ALONZO, CDP #### [facility] [address] [place], [place] [id number] Senior Net Software Engineer: Luis Carlos Del Castillo MD ALT [Catalytic activity/Vol] 19 U/L Normal 5-41 [facility] Comment on above: Performed By: #### T NATHAN ALONZO, CDP #### [facility] [address] [place], [place] [id number] Senior Net Software Engineer: Luis Carlos Del Castillo MD Anion gap [Moles/Vol] 10 mmol/L Normal 9-17 [facility] Comment on above: Performed By: #### T NATHAN ALONZO, CDP #### [address] [place] [address] Senior Net Software Engineer: Luis Carlos Del Castillo MD AST [Catalytic activity/Vol] 16 U/L Normal <40 [facility] Comment on above: Performed By: #### T NATHAN ALONZO, CDP #### [facility] [address] [place], [place] [id number] Senior Net Software Engineer: Luis Carlos Del Castillo MD Bilirubin [Mass/Vol] 0.8 mg/dL Normal 0.3-1.2 [facility] Comment on above: Performed By: #### T NATHAN ALONZO, CDP #### [facility] [address] [place], [place] [address] Senior Net Software Engineer: Luis Carlos Del Castillo MD BUN/CRE Ratio 25 High 9-20 [facility] Comment on above: Performed By: #### Ileana ALONZO CP, CDP #### [facility] [address] [place] [address] Senior Net Software Engineer: Luis Carlos Del Castillo MD Calcium [Mass/Vol] 9.5 mg/dL Normal 8.6-10.4 [facility] Comment on above: Performed By: #### Ileana ALONZO CP, CDP #### [facility] [address] [place] [address] Senior Net Software Engineer: Luis Carlos Del Castillo MD Chloride [Moles/Vol] 105 mmol/L Normal 98-107 [facility] Comment on above: Performed By: #### Ileana ALONZO CP, CDP #### [facility] [address] [place] [address] Senior Net Software Engineer: Luis Carlos Del Castillo MD CO2 [Moles/Vol] 24 mmol/L Normal 20-31 [facility] Comment on above: Performed By: #### Ileana ALONZO CP, CDP #### [facility] [address] [place] [address] [place] [address] Senior Net Software Engineer: Luis Carlos Del Castillo MD Creatinine [Mass/Vol] 0.63 mg/dL Low 0.70-1.20 [facility] Comment on above: Performed By: #### Ileana ALONZO CP, CDP #### [facility] [address] [place] [address] Senior Net Software Engineer: Luis Carlos Del Castillo MD GFR/1.73 sq M.predicted among non-blacks MDRD (S/P/Bld) [Vol rate/Area] mL/min/{1.73_m2} Normal >60 [facility] Comment on above: Result Comment: These results are not intended for use in patients <18 years of age. eGFR results are calculated without a race factor using the 2020 CKD-EPI equation. Careful clinical correlation is recommended, particularly when comparing to results calculated using previous equations. The CKD-EPI equation is less accurate in patients with extremes of muscle mass, extra-renal metabolism of creatine, excessive creatine ingestion, or following therapy that affects renal tubular secretion. Performed By: #### Ileana ALONZO CP, CDP #### [facility] [address] [place], [place] [id number] Senior Net Software Engineer: Luis Carlos Del Castillo MD Glucose [Mass/Vol] 113 mg/dL High 70-99 [facility] Comment on above: Performed By: #### Ileana ALONZO CP, CDP #### [facility] [address] [place] [address] [place] [address] Senior Net Software Engineer: Luis Carlos Del Castillo MD Potassium [Moles/Vol] 3.9 mmol/L Normal 3.7-5.3 [facility] Comment on above: Performed By: #### Ileana ALONZO CP, CDP #### [facility] [address] [place] [address] [place] [address] Senior Net Software Engineer: Luis Carlos Del Castillo MD Protein [Mass/Vol] 7.0 g/dL Normal 6.4-8.3 [facility] Comment on above: Performed By: #### Ileana ALONZO CP, CDP #### [address] [place], [place] [id number] Senior Net Software Engineer: Luis Carlos Del Castillo MD Sodium [Moles/Vol] 139 mmol/L Normal 135-144 [facility] Comment on above: Performed By: #### Ileana ALONZO CP, CDP #### [facility] [address] [place] [address] [place] [address] Senior Net Software Engineer: Luis Carlos Del Castillo MD Urea nitrogen [Mass/Vol] 16 mg/dL Normal 8-23 [facility] Comment on above: Performed By: #### Ileana ALONZO CP, CDP #### [facility] [address] [place] [address] [address], [place] [id number] Senior Net Software Engineer: Luis Carlos Del Castillo MD [facility] Metabolic Pane [facility] 12-30-2022 Albumin [Mass/Vol] 3.9 g/dL 3.5 - 5.2 g/dL [facility] Albumin/Globulin [Mass ratio] 1.3 {ratio} 1.0 - 2.5 [facility] ALP [Catalytic activity/Vol] 102 U/L 40 - 129 U/L [facility] ALT [Catalytic activity/Vol] 19 U/L 5 - 41 U/L [facility] Anion gap [Moles/Vol] 10 mmol/L 9 - 17 mmol/L [facility] AST [Catalytic activity/Vol] 16 U/L NINF - 40 U/L [facility] Bilirubin [Mass/Vol] 0.8 mg/dL 0.3 - 1 .2 mg/dL [facility] Calcium [Mass/Vol] 9.5 mg/dL 8.6 - 10. 4 mg/dL [facility] Chloride [Moles/Vol] 105 mmol/L 98 - 10 7 mmol/L [facility] CO2 [Moles/Vol] 24 mmol/L 20 - 31 mmol/L [facility] Creatinine [Mass/Vol] 0.63 mg/dL Low 0.70 - 1.20 mg/dL [facility] GFR/1.73 sq M.predicted MDRD (S/P/Bld) [Vol rate/Area] - [facility] Comment on above: These results are not intended for use in patients <18 years of age. eGFR results are calculated without a race factor using the 2020 CKD-EPI equation. Careful clinical correlation is recommended, particularly when comparing to results calculated using previous equations. The CKD-EPI equation is less accurate in patients with extremes of muscle mass, extra-renal metabolism of creatine, excessive creatine ingestion, or following therapy that affects renal tubular secretion. Glucose [Mass/Vol] 113 mg/dL High 70 - 99 mg/dL [facility] Interpretation and review of laboratory results Abnormal [facility] Potassium [Moles/Vol] 3.9 mmol/L 3.7 - 5.3 mmol/L [facility] Protein [Mass/Vol] 7.0 g/dL 6.4 - 8.3 g/dL [facility] Sodium [Moles/Vol] 139 mmol/L 135 - 144 mmol/L [facility] Urea nitrogen [Mass/Vol] 16 mg/dL 8 - 23 mg/dL [facility] [employer] Urea nitrogen/Creatinine (Bld) [Mass ratio] 25 High 9 - 20 [facility] [employer] [facility] [employer] EKG 12 Leadon 12-30-2022 Atrial Rate 51 BPM [facility] [employer] Work Phone: P [place] 39 degrees [facility] [employer] Work Phone: P-R Interval 146 ms [facility] [employer] Work Phone: Q-T Interval 424 ms [facility] [employer] Work Phone: QRS Duration 72 ms [facility] [employer] Work Phone: QTc Calculation (Bazett) 390 ms [facility] [employer] Work Phone: R [place] 56 degrees [facility] [employer] Work Phone: T [place] 73 degrees [facility] Work Phone: Ventricular Rate 51 BPM [facility] [employer] Work Phone: Poor data qualit y, interpretation may be adversely affected Sinus bradycardia Nonspecific ST and T wave abnormality Abnormal ECG Confirmed by Fany Mohr MD ([id number]) on 12/30/2022 8:21:48 AM [facility] RADIOLOGY Fany Mohr MD - 12/30/2022 Poor data quality, interpretation may be adversely affected Sinus bradycardia Nonspecific ST and T wave abnormality Abnormal ECG Confirmed by Fany Mohr MD ([id number]) on 12/30/2022 8:21:48 AM [facility] Work Phone: [facility] Work Phone: EKG Rhythm Stripon 3 [facility] [employer] Echocardiogram complete 2D w ith doppler with coloron 12-30-2022 Left ventricular Ejection fraction 55 [facility] [employer] Work Phone: LVEF MODALITY ECHO [facility] [employer] Phone: [facility] Transthoracic Echocardiography Report (TTE) Patient Name ABBY Date of Study 12/30/2022 NOEL Vaca Date of 1960 Gender Male Age 62 year(s) Race Room Number 0327 Height: 66 inch, 167.64 cm Corporate ID [id number] Weight: 160 pounds, 72.6 kg # Patient Acct [id number] BSA: 1.82 m^2 BMI: 25.82 kg/m^2 # MR # [id number] [employer] Keke Tineo Interpreting Physician Fany Mohr Fellow Referring Nurse Cece Villalobos, Practitioner SREEDHAR Interpreting Referring Physician Fellow Type of Study TTE procedure:2D Echocardiogram, M-Mode, Doppler, Color Doppler. Procedure Date Date: 12/30/2022 Start: 02:20 PM Study Location: [facility] Indications:Chest pain. History / Tech. Comments: Dx: CP Patient Status: Inpatient Height: 66 inches Weight: 160 pounds BSA: 1.82 m^2 BMI: 25.82 kg/m^2 Allergies - *No Known Allergies. CONCLUSIONS Summary Global left ventricular systolic function appears preserved with an estimated ejection fraction of 55%. The left ventricular cavity size is within normal limits and the left ventricular wall thickness is mildly increased. No definite specific wall motion abnormalities were identified. Bi-atrial enlargement. Diastolic LV function is normal. Signature FINDINGS Left Atrium The left atrium is moderately dilated (34-39) with a left atrial volume index of 36 ml/m2. Left Ventricle Global left ventricular systolic function appears preserved with an estimated ejection fraction of 55%. The left ventricular cavity size is within normal limits and the left ventricular wall thickness is mildly increased. No definite specific wall motion abnormalities were identified. Right Atrium The right atrium appears mildly dilated. Right Ventricle Normal right ventricular size and function. Mitral Valve Normal mitral valve structure with trivial mitral regurgitation. Aortic Valve Normal aortic valve structure and function without stenosis or regurgitation. Tricuspid Valve Normal tricuspid valve structure and function. Pulmonic Valve The pulmonic valve is normal in structure. Pericardial Effusion No significant pericardial effusion is seen. Miscellaneous Diastolic LV function is normal. M-mode / 2D Measurements & Calculations: LVIDd:5.08 cm(3.7 - 5.6 cm) Diastolic Volume:131.17 ml LVIDs:3.52 cm(2.2 - 4.0 cm) Systolic Volume:43.44 ml IVSd:1.06 cm(0.6 - 1.1 cm) Aortic Root:3.29 cm(2.0 - 3.7 cm) LVPWd:1.25 cm(0.6 - 1.1 cm) LA Dimension: 4.09 cm(1.9 - 4.0 cm) Fractional Shortenin.71 % LA volume/Index: 66 ml /36m^2 Calculated LVEF (%): 66.88 % LVOT:2.06 cm RVDd:3.17 cm Mitral: Aortic Valve Area (P1/2-Time): 3.33 cm^2 Peak Velocity: 1.50 m/s Peak E-Wave: 0.72 m/s Mean Velocity: 1.08 m/s Peak A-Wave: 0.60 m/s Peak Gradient: 9.04 mmHg E/A Ratio: 1.21 Mean Gradient: 5 mmHg Peak Gradient: 2.09 mmHg Acceleration Time: 62.16 msec P1/2t: 66.14 msec Area (continuity): 2.93 cm^2 AV VTI: 34.41 cm Diastology / Tissue Doppler Lateral Wall E' velocity:0.12 m/s Lateral Wall E/E':6.28 MH LVEF Fany Mohr MD / Result, Unknown Provider - 12/30/2022 [facility] Transthoracic Echocardiography Report (TTE) Patient Name ALVA Date of Study 12/30/2022 NOEL Vaca Date of 1960 Gender Male Age 62 year(s) Race Room Number 0327 Height: 66 inch, 167.64 cm Corporate ID [id number] Weight: 160 pounds, 72.6 kg # Patient Acct [id number] BSA: 1.82 m^2 BMI: 25.82 kg/m^2 # MR # [id number] [employer] Keke Tineo Interpreting Physician Fany Mohr Fellow Referring Nurse Cece Villalobos, Practitioner [employer] Interpreting Referring Physician Fellow Type of Study TTE procedure:2D Echocardiogram, M-Mode, Doppler, Color Doppler. Procedure Date Date: 12/30/2022 Start: 02:20 PM Study Location: [facility] Indications:Chest pain. History / Tech. Comments: Dx: CP Patient Status: Inpatient Height: 66 inches Weight: 160 pounds BSA: 1.82 m^2 BMI: 25.82 kg/m^2 Allergies - *No Known Allergies. CONCLUSIONS Summary Global left ventricular systolic function appears preserved with an estimated ejection fraction of 55%. The left ventricular cavity size is within normal limits and the left ventricular wall thickness is mildly increased. No definite specific wall motion abnormalities were identified. Bi-atrial enlargement. Diastolic LV function is normal. Signature - - - - FINDINGS Left Atrium The left atrium is moderately dilated (34-39) with a left atrial volume index of 36 ml/m2. Left Ventricle Global left ventricular systolic function appears preserved with an estimated ejection fraction of 55%. The left ventricular cavity size is within normal limits and the left ventricular wall thickness is mildly increased. No definite specific wall motion abnormalities were identified. Right Atrium The right atrium appears mildly dilated. Right Ventricle Normal right ventricular size and function. Mitral Valve Normal mitral valve structure with trivial mitral regurgitation. Aortic Valve Normal aortic valve structure and function without stenosis or regurgitation. Tricuspid Valve Normal tricuspid valve structure and function. Pulmonic Valve The pulmonic valve is normal in structure. Pericardial Effusion No significant pericardial effusion is seen. Miscellaneous Diastolic LV function is normal. M-mode / 2D Measurements & Calculations: LVIDd:5.08 cm(3.7 - 5.6 cm) Diastolic Volume:131.17 ml LVIDs:3.52 cm(2.2 - 4.0 cm) Systolic Volume:43.44 ml IVSd:1.06 cm(0.6 - 1.1 cm) Aortic Root:3.29 cm(2.0 - 3.7 cm) LVPWd:1.25 cm(0.6 - 1.1 cm) LA Dimension: 4.09 cm(1.9 - 4.0 cm) Fractional Shortenin.71 % LA volume/Index: 66 ml /36m^2 Calculated LVEF (%): 66.88 % LVOT:2.06 cm RVDd:3.17 cm Mitral: Aortic Valve Area (P1/2-Time): 3.33 cm^2 Peak Velocity: 1.50 m/s Peak E-Wave: 0.72 m/s Mean Velocity: 1.08 m/s Peak A-Wave: 0.60 m/s Peak Gradient: 9.04 mmHg E/A Ratio: 1.21 Mean Gradient: 5 mmHg Peak Gradient: 2.09 mmHg Acceleration Time: 62.16 msec P1/2t: 66.14 msec Area (continuity): 2.93 cm^2 AV VTI: 34.41 cm Diastology / Tissue Doppler Lateral Wall E' velocity:0.12 m/s Lateral Wall E/E':6.28 [facility] [employer] Work Phone: [facility] [employer] Phone: Resp Viral Panelon 3 Source: .NASOPHARYNGEAL SWAB Normal [facility] Comment on above: Performed By: #### L IPR #### [facility] [employer] [address] [place] [address] Senior Net Software Engineer: Marshall Paulino MD [id number] 12-30-2022 SARS-CoV-2 (COVID-19) RNA DAHLIA+probe Ql (Unsp spec) Not detected Normal [facility] Comment on above: Result Comment: Rapid NAAT: The specimen is NEGATIVE for SARS-CoV-2, the novel coronavirus associated with COVID-19. The ID NOW COVID-19 assay is designed to detect the virus that causes COVID-19 in patients with signs and symptoms of infection who are suspected of COVID-19. An individual without symptoms of COVID-19 and who is not shedding SARS-CoV-2 virus would expect to have a negative (not detected) result in this assay. Negative results should be treated as presumptive and, if inconsistent with clinical signs and symptoms or necessary for patient management, should be tested with an alternative molecular assay. Negative results do not preclude SARS-CoV-2 infection and should not be used as the sole basis for patient management decisions. Fact sheet for Healthcare Providers: https://www.fda.gov/media/673416/download Fact sheet for Patients: https://www.fda.gov/media/192002/download Methodology: Isothermal Nucleic Acid Amplification Performed By: #### L IPR #### [address] [id number] Senior Net Software Engineer: Marshall Paulino MD Troponinon 12-30-2022 Troponin, High Sens 17 ng/L Normal 0-22 [facility] Comment on above: Result Comment: High Sensitivity Troponin values cannot be compared with other Troponin methodologies. Performed By: #### L IPR #### [id number] [place] [address] Senior Net Software Engineer: Marshall Paulino MD Troponin, High Sens 19 ng/L Normal 0-22 [facility] Comment on above: Result Comment: High Sensitivity Troponin values cannot be compared with other Troponin methodologies. Performed By: #### T NATHAN ALONZO, CDP #### [facility] [address] [place] [address] Senior Net Software Engineer: Luis Carlos Del Castillo MD Troponin I.cardiac DL <= 0.01 ng/mL [Mass/Vol] 17 ng/L 0 - 22 ng/L [facility] Comment on above: High Sensitivity Tro ponin values cannot be compared with other Troponin methodologies. [facility] Troponin I.cardiac DL <= 0.01 ng/mL [Mass/Vol] 19 ng/L 0 - 22 ng/L [facility] Comment on above: High Sensitivity Tro ponin values cannot be compared with other Troponin methodologies. [facility] XR CHEST PORTABLEon 12-31-19 XR CHEST PORTABLE EXAMINATION: ONE XRAY VIEW OF THE CHEST 12/30/2022 6:43 am COMPARISON: 03/25/2022 chest radiograph HISTORY: ORDERING SYSTEM PROVIDED HISTORY: chest pain TECHNOLOGIST PROVIDED HISTORY: chest pain FINDINGS: The cardiomediastinal silhouette is within normal limits of size. There is a new left midlung opacities suggestive of pneumonia. Mildly prominent bilateral interstitial markings. No pleural effusion at or pneumothorax. No acute osseous abnormality. IMPRESSION: There is a new left midlung opacity and adjacent mildly prominent interstitial markings, suggestive of pneumonia. Recommend imaging follow-up to resolution to exclude an underlying lesion. Interpreted by: Sherrill Parmar MD Signed by: Sherrill Parmar MD 12/30/22 Final result Normal [facility] There is a new left midlung opacity and adjacent mildly prominent interstitial markings, suggestive of pneumonia. Recommend imaging follow-up to resolution to exclude an underlying lesion. [facility] RIS CONSOLIDATED EXAMINATION: ONE XRAY VIEW OF THE CHEST 12/30/2022 6:43 am COMPARISON: 03/25/2022 chest radiograph HISTORY: ORDERING SYSTEM PROVIDED HISTORY: chest pain TECHNOLOGIST PROVIDED HISTORY: chest pain FINDINGS: The cardiomediastinal silhouette is within normal limits of size. There is a new left midlung opacities suggestive of pneumonia. Mildly prominent bilateral interstitial markings. No pleural effusion at or pneumothorax. No acute osseous abnormality. [facility] RIS CONSOLIDATED Sherrill Parmar MD - 12/30/2022 EXAMINATION: ONE XRAY VIEW OF THE CHEST 12/30/2022 6:43 am COMPARISON: 03/25/2022 chest radiograph HISTORY: ORDERING SYSTEM PROVIDED HISTORY: chest pain TECHNOLOGIST PROVIDED HISTORY: chest pain FINDINGS: The cardiomediastinal silhouette is within normal limits of size. There is a new left midlung opacities suggestive of pneumonia. Mildly prominent bilateral interstitial markings. No pleural effusion at or pneumothorax. No acute osseous abnormality. IMPRESSION: There is a new left midlung opacity and adjacent mildly prominent interstitial markings, suggestive of pneumonia. Recommend imaging follow-up to resolution to exclude an underlying lesion. [employer] Phone: Radiology Study observation (narrative) [employer] Phone: XR CHEST PORTABLEOrdered By: Sherrill Parmar on 12-30-2022 [employer] Phone: XR LSPINE MIN 4 VIEWSon 12-04 XR LSPINE MIN 4 VIEWS EXAMINATION: XR LSPINE MIN 4 VIEWS HISTORY: Low back pain and right leg numbness COMPARISON: XR L-spine 04/12/2020 FINDINGS: BONES: Mild grade 1 retrolisthesis of L3 on 4. No fracture or bone lesion. Marked degenerative facet arthropathy L3-4 through L5-S1. DISC SPACES: Moderate or slightly greater narrowing at all lumbar levels. PARASPINOUS: Negative. No paraspinous abnormality is seen. OTHER: Negative. IMPRESSION: 1. Moderate to marked degenerative disc disease and degenerative facet arthropathy at most lumbar levels; not appreciably changed.. Electronically authenticated by: PEDRO PABLO CHAMBERS Date: 2022-12-18 13:59 Normal [facility] MRI LSPINE WO CONon 11-06-19 23 MRI LSPINE WO CON EXAMINATION: MRI LSP INE WO CON HISTORY: Lumbar radiculopathy ; chronic lumbar pain radiating into legs, weakness COMPARISON: No relevant comparison available. TECHNIQUE: A variety of imaging planes and parameters were utilized for visualization of suspected pathology. FINDINGS: For the purposes of numbering, sagittal T2 image # 8 extends from the T11 vertebral body superiorly to the S2 level inferiorly. PARASPINAL AREA: Normal with no visible mass. BONES: Prominent fatty degenerative endplate changes (Modic type II) at multiple lumbar and lower thoracic levels. Grade 1 retrolisthesis of L3 on 4. CORD/CAUDA EQUINA: Normal caliber, contour, and signal intensity. DISC LEVELS: 12-L1: Moderate degenerative disc disease is present without visible neural impingement. L1-L2: Mild central canal and moderate bilateral foramen narrowing. Mild diffuse disc bulging and mild disc height reduction. No significant facet arthropathy. L2-L3: Mild central canal and mild bilateral foramen narrowing. Mild diffuse disc bulging with moderate disc height reduction. No significant facet arthropathy. L3-L4: Mild central canal and marked bilateral foramen narrowing. 4 mm retrolisthesis of L3 on 4 with moderate posterior disc bulging and marked disc height reduction posteriorly. Mild degenerative facet arthropathy. L4-L5: Mild central canal and moderate-marked foramen narrowing bilaterally. Moderate diffuse disc bulging with marked disc height reduction posteriorly. Moderate degenerative facet arthropathy. L5-S1: No significant central canal or foramen narrowing. Moderate disc height reduction without appreciable disc bulging or herniation. Moderate degenerative facet arthropathy. IMPRESSION: 1. Moderate foramen narrowing L1-2. 2. Moderate to marked foramen narrowing at L3-4 and L4-5 secondary to grade 1 retrolisthesis of L3 and moderate disc bulging and facet arthropathy at both levels. Electronically authenticated by: PEDRO PABLO CHAMBERS Date: 2022-11-06 15:08 Normal [facility] TESTOSTERONE, TOTALon 2021 Testosterone [Mass/Vol] 279 ng/dL Normal [id number] [facility] Comment on above: Result Comment: Adul t male reference interval is based on a population of healthy nonobese males (BMI <30) between 19 and 39 years old. Vinnie et.al. JCEM 2017,102;[id number]. PMID: [id number]. Performed By: #### H GBHCT #### [facility] [address] [place] [address] Dr. Raimundo Estrada CBC AUTO DIFFon 09-11-2022 BASO # 0.1 103/ul Normal 0.0-0.1 [facility] Comment on above: Performed By: #### H GBHCT #### [facility] [address] [place] [address] Dr. Raimundo Estrada Basophils/100 WBC (Bld) 0.6 % Normal 0.2-2.0 [facility] Comment on above: Performed By: #### H GBHCT #### [facility] [address] [place] [address] Dr. Raimundo Estrada EO # 0.2 103/ul Normal 0.0-0.7 [facility] Comment on above: Performed By: #### H GBHCT #### [facility] [address] [place] [address] Dr. Raimundo Estrada Eosinophils/100 WBC (Bld) 2.4 % Normal 0.9-7.0 [facility] Comment on above: Performed By: #### H GBHCT #### [facility] [address] [place] [address] Dr. Raimundo Estrada Erythrocyte distribution width (RBC) [Ratio] 14.1 % Normal 11.0-15.0 [facility] Comment on above: Performed By: #### H GBHCT #### [facility] [address] [place] [address] Dr. Raimundo Estrada Hematocrit (Bld) [Volume fraction] 40.2 % Critically low 42.0-54.0 [facility] Comment on above: Performed By: #### H GBHCT #### [facility] [address] [place] [address] Dr. Raimundo Estrada Hemoglobin (Bld) [Mass/Vol] 13.4 g/dL Critically low 14.0-18.0 [facility] Comment on above: Performed By: #### H GBHCT #### [facility] [address] [place] [address] Dr. Raimundo Estrada IG # 0.03 10e3/ul Normal 0.00-0.03 [facility] Comment on above: Performed By: #### H GBHCT #### [facility] [address] [place] [address] Dr. Raimundo Estrada IG % 0.4 % Normal 0.0-0.5 [facility] Comment on above: Performed By: #### H GBHCT #### [facility] [address] [place] [address] Dr. Raimundo Estrada LYMPH # 1.7 103/ul Normal 1.2-3.8 [facility] Comment on above: Performed By: #### H GBHCT #### [facility] [address] [place] [address] Dr. Raimundo Estrada Lymphocytes/100 WBC (Bld) 20.8 % Normal 20.5-60.0 [facility] Comment on above: Performed By: #### H GBHCT #### [facility] [address] [place] [address] Dr. Riamundo Estrada MANUAL DIFF REQ NO Normal [facility] Comment on above: Performed By: #### H GBHCT #### [facility] [address] [place] [address] Dr. Raimundo Estrada MCH (RBC) [Entitic mass] 31.8 pg Normal 25.9-34.0 [facility] Comment on above: Performed By: #### H GBHCT #### [facility] [address] [place] [address] Dr. Raimundo Estrada MCHC (RBC) [Mass/Vol] 33.3 g/dL Normal 29.9-35.2 [facility] Comment on above: Performed By: #### H GBHCT #### [facility] [address] [place] [address] Dr. Raimundo Estrada MCV (RBC) [Entitic vol] 95.3 fL Critically high 80.0-94.0 [facility] Comment on above: Performed By: #### H GBHCT #### [facility] [address] [place] [address] Dr. Raimundo Estrada MONO # 0.8 103/ul Normal 0.3-0.8 [facility] Comment on above: Performed By: #### H GBHCT #### [facility] [address] [place] [address] Dr. Raimundo Estrada Monocytes/100 WBC (Bld) 9.7 % Normal 1.7-12.0 [facility] Comment on above: Performed By: #### H GBHCT #### [facility] [address] [place] [address] Dr. Raimundo Estrada NEUT # 5.2 103/ul Normal 1.4-6.5 [facility] Comment on above: Performed By: #### H GBHCT #### [facility] [address] [place] [address] Dr. Raimundo Estrada Neutrophils/100 WBC (Bld) 66.1 % Normal 43.0-75.0 [facility] Comment on above: Performed By: #### H GBHCT #### [facility] [address] [address] [address] Raimundo Estrada Platelet mean volume (Bld) [Entitic vol] 10.1 fL Normal 9.5-13.5 [facility] Comment on above: Performed By: #### H GBHCT #### [facility] [address] [address] [address] Raimundo Estrada PLT 189 103/ul Normal 150-450 [facility] Comment on above: Performed By: #### H GBHCT #### [facility] [address] [address] [address] Raimundo Estrada RBC 4.22 106/ul Critically low 4.70-6.10 [facility] Comment on above: Performed By: #### H GBHCT #### [facility] [address] [address] [address] Raimundo Estrada WBC 7.9 103/ul Normal 4.0-11.0 [facility] Comment on above: Performed By: #### H GBHCT #### [facility] [address] [address] [address] Raimundo Estrada FREE T3on 09-11-2022 FREE T3 2.85 pg/mlL Normal 2.18-3.98 [facility] Comment on above: Performed By: #### T SH, FT3, LIVER, BMP, LIPID #### [facility] [address] [address] [address] Raimundo Estrada FREE T4on 09-11-2022 Free T4 [Mass/Vol] 0.85 ng/dL Normal 0.76-1.46 The [facility] Comment on above: Performed By: #### H GBHCT #### [facility] [address] [address] [address] Raimundo Estrada GLYCOHEMOGLOBIN A1Con 2021 ADA RECOMMENDATION SEE BELOW Normal The [facility] Comment on above: Result Comment: ADA RECOMMENDED LIMIT 4.0 - 6.0 ADA THERAPEUTIC TARGET < 7.0 ACTION SUGGESTED > 7.0 Performed By: #### H GBHCT #### [facility] [address] [address] [address] Raimundo Estrada Glucose [Mass/Vol] 111 mg/dL Normal [facility] Comment on above: Performed By: #### H GBHCT #### [facility] [address] [address] [address] Raimundo Estrada HbA1c (Bld) [Mass fraction] 5.5 % Normal 4.5-6.2 [facility] Comment on above: Performed By: #### H GBHCT #### [facility] [address] [address] [address] Raimundo Estrada LIPID PROFILEon 09-11-2022 CHOL-HDL RATIO NORM SEE BELOW Normal [facility] Comment on above: Result Comment: 3.3 - 4.4 LOW RISK 4.4 - 7.1 AVERAGE RISK 7.1 - 11.0 MODERATE RISK >11.0 HIGH RISK Performed By: #### T SH, FT3, LIVER, BMP, LIPID #### [facility] [address] [address] [address] Raimundo Estrada Cholesterol [Mass/Vol] 129 mg/dL Normal <=200 [facility] Comment on above: Performed By: #### T SH, FT3, LIVER, BMP, LIPID #### [facility] [address] [address] [address] Raimundo Estrada Cholesterol in HDL [Mass/Vol] 62 mg/dL Critically high 40-60 [facility] Comment on above: Performed By: #### T SH, FT3, LIVER, BMP, LIPID #### [facility] [address] [address] [address] Raimundo Estrada Cholesterol in LDL [Mass/Vol] 53.4 mg/dL Normal [facility] Comment on above: Performed By: #### T SH, FT3, LIVER, BMP, LIPID #### [facility] [address] [address] [address] Raimundo Estrada Cholesterol.total/Ch olesterol in HDL [Mass ratio] 2.1 {ratio} Normal [facility] Comment on above: Performed By: #### T SH, FT3, LIVER, BMP, LIPID #### [facility] [address] [address] [address] Raimundo Estrada HDL NORMAL > or = 60 mg/dl - LO W CARDIOVASCULAR RISK <40 mg/dl - HIGH CARDIOVASCULAR RISK Normal [facility] Comment on above: Performed By: #### T SH, FT3, LIVER, BMP, LIPID #### [facility] [address] [address] [address] Raimundo Estrada LDL CALC NORMAL SEE BELOW Normal [facility] Comment on above: Result Comment: <100 mg/dl OPTIMAL 100 - 129 mg/dl NEAR OR ABOVE OPTIMAL 130 - 159 mg/dl BORDERLINE HIGH 160 - 189 mg/dl HIGH >190 mg/dl VERY HIGH Performed By: #### T SH, FT3, LIVER, BMP, LIPID #### [facility] [address] [address] [address] Raimundo Estrada Triglyceride [Mass/Vol] 68 mg/dL Normal <=150 [facility] Comment on above: Performed By: #### T SH, FT3, LIVER, BMP, LIPID #### [facility] [address] [address] [address] Raimundo Estrada VLDL CALC 13.6 mg/dL Normal [facility] Comment on above: Performed By: #### T SH, FT3, LIVER, BMP, LIPID #### [facility] [address] [address] [address] Raimundo Estrada LIVER PROFILEon 09-11-2022 Albumin [Mass/Vol] 3.8 g/dL Normal 3.4-5.0 [facility] Comment on above: Performed By: #### T SH, FT3, LIVER, BMP, LIPID #### [facility] [address] [address] [address] Raimundo Estrada Albumin/Globulin [Mass ratio] 1.0 {ratio} Normal [facility] Comment on above: Performed By: #### T SH, FT3, LIVER, BMP, LIPID #### [facility] [address] [address] [address] Raimundo Estrada ALP [Catalytic activity/Vol] 103 U/L Normal 46-116 [facility] Comment on above: Performed By: #### T SH, FT3, LIVER, BMP, LIPID #### [facility] [address] [place] [address] Dr. Raimundo Estrada ALT [Catalytic activity/Vol] 46 U/L Normal 16-63 [facility] Comment on above: Performed By: #### T SH, FT3, LIVER, BMP, LIPID #### [facility] [address] [place] [address] Dr. Raimundo Estrada AST [Catalytic activity/Vol] 35 U/L Normal 15-37 [facility] Comment on above: Performed By: #### T SH, FT3, LIVER, BMP, LIPID #### [facility] [address] [place] [address] Dr. Raimundo Estrada BILI, CONJUGATED 0.2 mg/dL Normal 0.0-0.2 [facility] Comment on above: Performed By: #### T SH, FT3, LIVER, BMP, LIPID #### [facility] [address] [place] [address] Dr. Raimundo Estrada Bilirubin [Mass/Vol] 0.7 mg/dL Normal 0.2-1.0 [facility] Comment on above: Performed By: #### T SH, FT3, LIVER, BMP, LIPID #### [facility] [address] [place] [address] Dr. Raimundo Estrada Globulin (S) [Mass/Vol] 3.8 g/dL Normal [facility] Comment on above: Performed By: #### T SH, FT3, LIVER, BMP, LIPID #### [facility] [address] [place] [address] Dr. Raimundo Estrada Protein [Mass/Vol] 7.6 g/dL Normal 6.4-8.2 [facility] Comment on above: Performed By: #### T SH, FT3, LIVER, BMP, LIPID #### [facility] [address] [place] [address] Dr. Raimundo Estrada PROF CHEM 8 (BAS METB)on Anion gap [Moles/Vol] 13.9 mmol/L Normal [facility] Comment on above: Performed By: #### T SH, FT3, LIVER, BMP, LIPID #### [facility] [address] [address] [address] Raimundo Estrada Calcium [Mass/Vol] 9.3 mg/dL Normal 8.5-10.1 [facility] Comment on above: Performed By: #### T SH, FT3, LIVER, BMP, LIPID #### [facility] [address] [place] [address] Dr. Raimundo Estrada Chloride [Moles/Vol] 104 mmol/L Normal 98-107 [facility] Comment on above: Performed By: #### T SH, FT3, LIVER, BMP, LIPID #### [facility] [address] [address] [address] Raimundo Estrada CO2 [Moles/Vol] 28.6 mmol/L Normal 21.0-32.0 [facility] Comment on above: Performed By: #### T SH, FT3, LIVER, BMP, LIPID #### [facility] [address] [place] [address] Dr. Raimundo Estrada Creatinine [Mass/Vol] 0.77 mg/dL Normal 0.70-1.30 [facility] Comment on above: Performed By: #### T SH, FT3, LIVER, BMP, LIPID #### [facility] [address] [place] [address] Dr. Raimundo Estrada EGFR-AF CITIZEN OF [place] >60 Normal >=60 [facility] Comment on above: Performed By: #### T SH, FT3, LIVER, BMP, LIPID #### [facility] [address] [place] [address] Dr. Raimundo Estrada EGFR-NON AF CITIZEN OF [place] >60 Normal >=60 [facility] Comment on above: Performed By: #### T SH, FT3, LIVER, BMP, LIPID #### [facility] [address] [place] [address] Dr. Raimundo Estrada Glucose [Mass/Vol] 90 mg/dL Normal 74-106 The [facility] Comment on above: Performed By: #### T SH, FT3, LIVER, BMP, LIPID #### [facility] [address] [place] [address] Dr. Raimundo Estrada Potassium [Moles/Vol] 4.5 mmol/L Normal 3.5-5.1 [facility] Comment on above: Performed By: #### T SH, FT3, LIVER, BMP, LIPID #### [facility] [address] [place] [address] Dr. Raimundo Estrada Sodium [Moles/Vol] 142 mmol/L Normal 136-145 [facility] Comment on above: Performed By: #### T SH, FT3, LIVER, BMP, LIPID #### [facility] [address] [place] [address] Dr. Raimundo Estrada Urea nitrogen [Mass/Vol] 22.0 mg/dL Critically high 7.0-18.0 [facility] Comment on above: Performed By: #### T SH, FT3, LIVER, BMP, LIPID #### [facility] [address] [place] [address] Dr. Raimundo Estrada Urea nitrogen/Creatinine [Mass ratio] 28.6 mg/mg Normal [facility] Comment on above: Performed By: #### T SH, FT3, LIVER, BMP, LIPID #### [facility] [address] [place] [address] Dr. Raimundo Estrada TSHon 09-11-2022 TSH 1.375 uIU/mL Normal 0.358-3.74 0 [facility] Comment on above: Performed By: #### T SH, FT3, LIVER, BMP, LIPID #### [facility] [address] [place] [address] Dr. Raimundo Estrada VITAMIN B12on 09-11-2022 Cobalamin (Vitamin B12) [Mass/Vol] 635.0 pg/mL Normal 193.0-986. 0 [facility] Comment on above: Performed By: #### L IPID #### [facility] [address] [place] [address] Dr. Raimundo Estrada General Surgery Office/Clini c Noteon 07-10-2022 General Surgery Office/Clinic Note Chief Complaint follow up EGD and colonoscopy HPI Staff 14 day post operative follow up post colonoscopy and EGD with antral biopsy. History of Present Illness s/p EGD and colonoscopy for iron deficiency anemia and epigastric pain; pain resolved, small hiatal hernia, mild gastritis, bx negative for H pylori; colonoscopy with small sigmoid polyp and sigmoid diverticulosis; polyp removed, but apparently not retrieved. Assessment/Plan 1. Hiatal hernia (K44.9: Diaphragmatic hernia without obstruction or gangrene) continue PPI, call with problems/questions. 2. Polyp of sigmoid colon (K63.5: Polyp of colon) recommend surveillance colonoscopy in 5 years, call sooner if problems/questions. Follow-up No qualifying data available Problem List/Past Medical History Ongoing Asthma BMI 25.0-25.9,adult CAD in [place] artery DDD (degenerative disc disease), lumbar Depression Epigastric pain Gouty arthritis Hematemesis Hiatal hernia Iron deficiency anemia Polyp of sigmoid colon Vitamin D deficiency Historical No qualifying data Procedure/Surgical History Colonoscopy (06/26/2022), EGD - Esophagogastroduodenoscopy (06/26/2022), Cardiac catheterization (2017), Cardiac catheterization (2005), Cataract extraction, Coronary artery stent, History of lumbar spine surgery. Medications albuterol HFA 90 mcg/inh MDI, 2 puff(s), Inhalation, q4hr, PRN aspirin 81 mg Chew Tab, 81 mg= 1 tab(s), Chewed, Daily atorvastatin 40 mg Tab, 40 mg= 1 tab(s), Oral, Bedtime Carafate 1 gram Tab, 1 gm= 1 tab(s), Oral, QIDACHS ferrous sulfate 325 mg oral enteric coated tablet, 325 mg= 1 tab(s), Oral, BID isosorbide mononitrate 30 mg ER Tab, 30 mg= 1 tab(s), Oral, qAM lisinopril 40 mg Tab, 40 mg= 1 tab(s), Oral, Daily meloxicam 15 mg oral tablet, 15 mg= 1 tab(s), Oral, Daily Metoprolol tartrate 25 mg Tab, 25 mg= 1 tab(s), Oral, BID Big Arm 5/325 Tab, 1 tab(s), Oral, BID Protonix 40 mg Tab-DR, 40 mg= 1 tab(s), Oral, BID, 3 refills Vitamin D3 2000 intl units oral Tab, 1 tab(s), Oral, Daily Zanaflex Allergies No Known Allergies No Known Medication Allergies Social History Alcohol Current, Beer, Daily, 05/31/2022 Substance Abuse - Denies Substance Abuse, 05/31/2022 Tobacco Never (less than 100 in lifetime) Tobacco Use:. Never Smokeless Tobacco Use:., 05/31/2022 Family History CAD - Coronary artery disease: Mother and Father. Normal [facility] Comment on above: Result Comment: Elec tronically Signed By: EMILY DRUMMOND, Julian Rothman\Date and Time Signed: 07/10/22 17:09 EDT Reminderson 07-08-2022 Reminders - From: Karon Dumont LPN To: N - Clinical; Sent: 07/08/2022 15:58:22 EDT Show up: 05/26/2027 07:00:00 EDT Subject: colonoscopy recall Due Date/Time: 06/26/2027 07:00:00 EDT Reminder/Recall Patient is due for colonoscopy 06/26/2027 due to sigmoid polyp that was not retrieved. Normal [facility] Pathology Noteon 06-28-2022 Pathology Note [id number]:127 Normal [facility] Outside Colonoscopyon 2021 Outside Colonoscopy [id number]#[id number]:127 Normal [facility] HEMOGLOBIN AND HEMATOCRITon 06-26-2022 Hematocrit (Bld) [Volume fraction] 44.2 % Normal 42.0-54.0 [facility] Comment on above: Performed By: #### H GBHCT #### [facility] [address] [address] [address] Raimundo Estrada Hemoglobin (Bld) [Mass/Vol] 15.0 g/dL Normal 14.0-18.0 [facility] Comment on above: Performed By: #### H GBHCT #### [facility] [address] [address] [address] Raimundo Estrada Lab Reportson 06-24-2022 Lab Reports [id number]:127 Normal [facility] Covid-19 PCR (CVDTBH)on 06-06 SARS-CoV-2 (COVID-19) RNA DAHLIA+probe Ql (Unsp spec) Not detected Normal NOT DETECTED [facility] Comment on above: Result Comment: This test is not yet approved or cleared by the [place] FDA. When there are no FDA-approved or cleared tests available, and other criteria are met, FDA can make tests available under an emergency access mechanism called an Emergency Use Authorization (EUA). The EUA for this test is supported by the Hematologist Oncologist of Health and Human Service's (HHS's) declaration that circumstances exist to justify the emergency use of in vitro diagnostics for the detection and/or diagnosis of the virus that causes COVID-19. This EUA will remain in effect (meaning this test can be used) for the duration of the COVID-19 declaration justifying emergency of IVDs, unless it is terminated or revoked by FDA (after which the test may no longer be used). When diagnostic testing is negative, the possibility of a false negative should be considered in the context of a patient's recent exposures and the presence of clinical signs and symptoms consistent with SARS-CoV-2. Performed By: #### [facility] #### [facility] [address] [place] [address] Dr. Raimundo Estrada Consent for Procedure/Surger yon 06-03-2022 Consent for Procedure/Surgery [id number]:127 Normal [facility] Pre-Certification Formon Pre-Certification Form [id number]#[id number]:127 Normal [facility] Ambulatory Visit Summaryon 0 05-31-2022 Ambulatory Visit Summary ABBYNOEL Nola :1960 Visit Date:05/31/2022 Ambulatory Visit Instructions Your Diagnosis Epigastric pain Hematemesis Your Care Team Attending Physician - EMILY DRUMMOND, Julian Davsi Primary Care Physician - MAGDA DRUMMOND, ROMARIO Referring Physician - ROMARIO MAN MD This Is Your Medications List pantoprazole (Protonix 40 mg Tab-DR) Contact prescribing physician if questions or concerns acetaminophen-hydrocodone (Big Arm 5/325 Tab) albuterol (albuterol HFA 90 mcg/inh MDI) aspirin (aspirin 81 mg Chew Tab) atorvastatin (atorvastatin 40 mg Tab) cholecalciferol (Vitamin D3 2000 intl units oral Tab) ferrous sulfate (ferrous sulfate 325 mg oral enteric coated tablet) isosorbide mononitrate (isosorbide mononitrate 30 mg ER Tab) lisinopril (lisinopril 40 mg Tab) meloxicam (meloxicam 15 mg oral tablet) metoprolol (Metoprolol tartrate 25 mg Tab) sucralfate (Carafate 1 gram Tab) tizanidine (Zanaflex) Procedures Performed Cardiac catheterization (2017), Cardiac catheterization (2005), Cataract extraction, Coronary artery stent, History of lumbar spine surgery. Discharge Vitals Heart Rate (Peripheral) 66 Respiratory Rate 16 Blood Pressure 108/60 Height 167.64 cm Height 167.6 cm Weight 72.8 kg Weight 72.8 kg BMI 25.9 Medications What How Much When Why Instructions New pantoprazole (Protonix 40 mg Tab-DR) 1 Tablets By Mouth 2 times a day Epigastric pain Hematemesis Refills: 3 Pickup at [facility] Unchanged acetaminophen-hydrocodone (Big Arm 5/ 325 Tab) 1 Tablets By Mouth 2 times a day Contact prescribing physician if questions or concerns Unchanged albuterol (albuterol HFA 90 mcg/ inh MDI) 2 Puffs Inhalation Every 4 hours as needed for Shortness of breath or wheezing Contact prescribing physician if questions or concerns Unchanged aspirin (aspirin 81 mg Chew Tab) 1 Tablets Chewed Every day Contact prescribing physician if questions or concerns Unchanged atorvastatin (atorvastatin 40 mg Tab) 1 Tablets By Mouth At bedtime Contact prescribing physician if questions or concerns Unchanged cholecalciferol (Vitamin D3 2000 intl units oral Tab) 1 Tablets By Mouth Every day Contact prescribing physician if questions or concerns Unchanged ferrous sulfate (ferrous sulfate 325 mg oral enteric coated tablet) 1 Tablets By Mouth 2 times a day Contact prescribing physician if questions or concerns Unchanged isosorbide mononitrate (isosorbide mononitrate 30 mg ER Tab) 1 Tablets By Mouth Once a day (in the morning) Contact prescribing physician if questions or concerns Unchanged lisinopril (lisinopril 40 mg Tab) 1 Tablets By Mouth Every day Contact prescribing physician if questions or concerns Unchanged meloxicam (meloxicam 15 mg oral tablet) 1 Tablets By Mouth Every day Contact prescribing physician if questions or concerns Unchanged metoprolol (Metoprolol tartrate 25 mg Tab) 1 Tablets By Mouth 2 times a day Contact prescribing physician if questions or concerns Unchanged sucralfate (Carafate 1 gram Tab) 1 Tablets By Mouth Four times a day (before meals and at bedtime) Contact prescribing physician if questions or concerns Unchanged tizanidine (Zanaflex) Contact prescribing physician if questions or concerns Pharmacy Information [facility]: [address] [place], [place] [id number] [phone] Allergies No Known Allergies No Known Medication Allergies Problems Ongoing - Any problem that you are currently receiving treatment for. Asthma BMI 25.0-25.9,adult CAD in [place] artery DDD (degenerative disc disease), lumbar Depression Epigastric pain Gouty arthritis Hematemesis Iron deficiency anemia Vitamin D deficiency Normal [facility] Lab Reportson 05-30-2022 Lab Reports [id number]:127 Normal [facility] Lab Reportson 05-23-2022 Lab Reports [id number]:127 Normal [facility] Lab Reports [id number]:127 Normal [facility] Physician Referralon 022 Physician Referral [id number]:127 Normal [facility] CBC AUTO DIFFon 04-03-2022 BASO # 0.0 103/ul Normal 0.0-0.1 [facility] Comment on above: Performed By: #### C BC #### [facility] [address] [place], [place] [address] Dr. Raimundo Estrada Basophils/100 WBC (Bld) 0.3 % Normal 0.2-2.0 [facility] Comment on above: Performed By: #### C BC #### [facility] [address] [place] [address] Dr. Raimundo Estrada EO # 0.1 103/ul Normal 0.0-0.7 [facility] Comment on above: Performed By: #### C BC #### [facility] [address] [place] [address] Dr. Raimundo Estrada Eosinophils/100 WBC (Bld) 0.7 % Critically low 0.9-7.0 [facility] Comment on above: Performed By: #### C BC #### [facility] [address] [place] [address] Dr. Raimundo Estrada Erythrocyte distribution width (RBC) [Ratio] 14.4 % Normal 11.0-15.0 [facility] Comment on above: Performed By: #### C BC #### [facility] [address] [place] [address] Dr. Raimundo Estrada Hematocrit (Bld) [Volume fraction] 38.2 % Critically low 42.0-54.0 [facility] Comment on above: Performed By: #### C BC #### [facility] [address] [place] [address] Dr. Raimundo Estrada Hemoglobin (Bld) [Mass/Vol] 12.8 g/dL Critically low 14.0-18.0 [facility] Comment on above: Performed By: #### C BC #### [facility] [address] [place] [address] Dr. Raimundo Estrada IG # 0.04 10e3/ul Critically high 0.00-0.03 [facility] Comment on above: Performed By: #### C BC #### [facility] [address] [place] [address] Dr. Raimundo Estrada IG % 0.3 % Normal 0.0-0.5 [facility] [facility] Comment on above: Performed By: #### C BC #### [facility] [address] [place] [address] Dr. Raimundo Estrada LYMPH # 1.1 103/ul Critically low 1.2-3.8 [facility] Comment on above: Performed By: #### C BC #### [facility] [address] [address] [address] Raimundo Estrada Lymphocytes/100 WBC (Bld) 9.4 % Critically low 20.5-60.0 [facility] Comment on above: Performed By: #### C BC #### [facility] [address] [address] [address] Raimundo Estrada MANUAL DIFF REQ NO Normal [facility] Comment on above: Performed By: #### C BC #### [facility] [address] [place] [address] Dr. Raimundo Estrada MCH (RBC) [Entitic mass] 30.7 pg Normal 25.9-34.0 [facility] Comment on above: Performed By: #### C BC #### [facility] [address] [place] [address] Dr. Raimundo Estrada MCHC (RBC) [Mass/Vol] 33.5 g/dL Normal 29.9-35.2 [facility] Comment on above: Performed By: #### C BC #### [facility] [address] [place] [address] Dr. Raimundo Estrada MCV (RBC) [Entitic vol] 91.6 fL Normal 80.0-94.0 [facility] Comment on above: Performed By: #### C BC #### [facility] [address] [place] [address] Dr. Raimundo Estrada MONO # 0.7 103/ul Normal 0.3-0.8 [facility] Comment on above: Performed By: #### C BC #### [facility] [address] [place] [address] Dr. Raimundo Estrada Monocytes/100 WBC (Bld) 5.8 % Normal 1.7-12.0 [facility] Comment on above: Performed By: #### C BC #### [facility] [address] [place] [address] Dr. Raimundo Estrada NEUT # 9.6 103/ul Critically high 1.4-6.5 [facility] Comment on above: Performed By: #### C BC #### [facility] [address] [address] [address] Raimundo Estrada Neutrophils/100 WBC (Bld) 83.5 % Critically high 43.0-75.0 [facility] Comment on above: Performed By: #### C BC #### [facility] [address] [address] [address] Raimundo Estrada Platelet mean volume (Bld) [Entitic vol] 9.3 fL Critically low 9.5-13.5 [facility] Comment on above: Performed By: #### C BC #### [facility] [address] [address] [address] Raimundo Estrada PLT 165 103/ul Normal 150-450 [facility] Comment on above: Performed By: #### C BC #### [facility] [address] [address] [address] Raimundo Estrada RBC 4.17 106/ul Critically low 4.70-6.10 [facility] Comment on above: Performed By: #### C BC #### [facility] [address] [address] [address] Raimundo Estrada WBC 11.6 103/ul Critically high 4.0-11.0 [facility] Comment on above: Performed By: #### C BC #### [facility] [address] [address] [address] Raimundo Estrada IRONon 04-03-2022 Iron [Mass/Vol] 63.0 ug/dL Critically low 65.0-175.0 [facility] Comment on above: Performed By: #### I HUBERT #### [facility] [address] [place] [address] Dr. Raimundo Estrada PROTIMEon 04-03-2022 INR Coag (PPP) [Relative time] 0.98 {INR} Normal [facility] Comment on above: Performed By: #### H GBHCT #### [facility] [address] [place] [address] Dr. Raimundo Estrada INR GUIDELINES SEE BELOW Normal [facility] Comment on above: Result Comment: KEIRA RED INR: 2.0 - 3.0 CONDITIONS NOT LISTED BELOW 2.5 - 3.5 FOR PROSTHETIC HEART VALVE REPLACEMENT 2.5 - 3.5 RECURRENT THROMBOSIS Performed By: #### H GBHCT #### [facility] [address] [place] [address] Dr. Raimundo Estrada PT Coag (PPP) [Time] 10.6 s Normal 9.0-11.6 [facility] Comment on above: Performed By: #### H GBHCT #### [facility] [address] [place] [address] Dr. Raimundo Estrada PTTon 04-03-2022 aPTT Coag (Bld) [Time] 26.2 s Normal 22.3-36.2 [facility] Comment on above: Performed By: #### H GBHCT #### [facility] [address] [place] [address] Dr. Raimundo Estrada Sedimentation Rateon 022 Sed Rate 10 [facility] LIPID PROFILEon 03-12-2022 CHOL-HDL RATIO NORM SEE BELOW Normal [facility] Comment on above: Result Comment: 3.3 - 4.4 LOW RISK 4.4 - 7.1 AVERAGE RISK 7.1 - 11.0 MODERATE RISK >11.0 HIGH RISK Performed By: #### L IPID #### [facility] [address] [place] [address] Dr. Raimundo Estrada Cholesterol [Mass/Vol] 126 mg/dL Normal <=200 [facility] Comment on above: Performed By: #### L IPID #### [facility] [address] [place] [address] Dr. Raimundo Estrada Cholesterol in HDL [Mass/Vol] 68 mg/dL Critically high 40-60 [facility] Comment on above: Performed By: #### L IPID #### [facility] [address] [place] [address] Dr. Raimundo Estrada Cholesterol in LDL [Mass/Vol] 52.0 mg/dL Normal [facility] Comment on above: Performed By: #### L IPID #### [facility] [address] [place] [address] Dr. Raimundo Estrada Cholesterol.total/Ch olesterol in HDL [Mass ratio] 1.9 {ratio} Normal [facility] Comment on above: Performed By: #### L IPID #### [facility] [address] [address] [address] Raimundo Estrada HDL NORMAL > or = 60 mg/dl - LO W CARDIOVASCULAR RISK <40 mg/dl - HIGH CARDIOVASCULAR RISK Normal [facility] Comment on above: Performed By: #### L IPID #### [facility] [address] [address] [address] Raimundo Estrada LDL CALC NORMAL SEE BELOW Normal [facility] Comment on above: Result Comment: <100 mg/dl OPTIMAL 100 - 129 mg/dl NEAR OR ABOVE OPTIMAL 130 - 159 mg/dl BORDERLINE HIGH 160 - 189 mg/dl HIGH >190 mg/dl VERY HIGH Performed By: #### L IPID #### [facility] [address] [address] [address] Raimundo Estrada Triglyceride [Mass/Vol] 30 mg/dL Normal <=150 [facility] Comment on above: Performed By: #### L IPID #### [facility] [address] [address] [address] Raimundo Estrada VLDL CALC 6.0 mg/dL Normal [facility] Comment on above: Performed By: #### L IPID #### [facility] [address] [place], [place] [address] Dr. Raimundo Estrada CBC Auto DifferentialOrdered By: Julian Dougherty on 03-09-2021 Absolute Eos # <0.03 [employer] [facility] Work Phone: Absolute Immature Granulocyte 0.04 [employer] [facility] Work Phone: Absolute Lymph # 1.49 [employer] [facility] Work Phone: Absolute [place] # 1.27 High [employer] [facility] Work Phone: Basophils (Bld) [#/Vol] 0.03 10*3/uL [employer] Work Phone: Basophils/100 WBC (Bld) 0 % 0 - 2 % [employer] Phone: Differential Type NOT REPORTED [employer] Phone: Eosinophils/100 WBC (Bld) 0 % Low 1 - 4 % [employer] Phone: Hematocrit (Bld) [Volume fraction] 41.8 % 40.7 - 50.3 % [employer] Phone: Hemoglobin.gastroint estinal spec 1 Ql (Stl) 14.3 g/dL 13.0 - 17.0 g/dL [employer] Phone: Immature granulocytes/100 WBC (Bld) 0 % 0 [employer] Phone: Interpretation and review of laboratory results Abnormal [employer] Phone: Lymphocytes/100 WBC (Bld) 14 % Low 24 - 43 % [employer] Phone: MCH (RBC) [Entitic mass] 30.6 pg 25.2 - 33.5 pg [employer] Phone: MCHC (RBC) [Mass/Vol] 34.2 g/dL 28.4 - 34.8 g/dL [employer] Phone: MCV (RBC) [Entitic vol] 89.5 fL 82.6 - 102.9 fL [employer] Phone: Monocytes/100 WBC (Bld) 12 % 3 - 12 % [employer] Phone: NRBC Automated 0.0 0.0 per 100 WBC [employer] Phone: Platelet distribution width (Bld) [Ratio] 13.2 % 11.8 - 14.4 % [employer] Phone: Platelet Estimate NOT REPORTED [employer] Phone: Platelet mean volume (Bld) [Entitic vol] 10.3 fL 8.1 - 13.5 fL [employer] Phone: Platelets (Bld) [#/Vol] 169 10*3/uL [employer] Phone: RBC (Bld) [#/Vol] 4.67 10*6/uL 4.21 - 5.77 m/uL [employer] Phone: RBC (Bld) [#/Vol] NOT REPORTED [employer] Phone: Segmented neutrophils/100 WBC (Bld) 74 % High 36 - 65 % [employer] Work Phone: Segs Absolute 7.59 [email or web address] Work Phone: WBC (Bld) [#/Vol] 10.4 10*3/uL [employer] Phone: WBC (Bld) [#/Vol] NOT REPORTED [employer] Phone: [employer] Phone: Sedimentation RateOrdered By : Julian Dougherty on 03-09-2021 Interpretation and review of laboratory results Abnormal [employer] Phone: Sed Rate 63 mm High 0 - 20 mm [employer] Phone: [employer] Phone: Uric AcidOrdered By: Julian Dougherty on 03-09-2021 Urate [Mass/Vol] 4.3 mg/dL 3.4 - 7.0 mg/dL [employer] Phone: [employer] Phone: XR WRIST RIGHT (MIN 3 VIEWS) Ordered By: Julian Dougherty on 03-09-2021 Arthritic changes an d mild soft tissue swelling without acute osseous abnormality. [employer] Phone: EXAMINATION: 3 XRAY VIEWS OF THE RIGHT WRIST 03/09/2021 10:34 am COMPARISON: None. HISTORY: ORDERING SYSTEM PROVIDED HISTORY: Pain TECHNOLOGIST PROVIDED HISTORY: Pain FINDINGS: Moderate arthritic changes are present on the radial aspect of the wrist involving the navicular multangular and multangular metacarpal joints. Accessory ossicle is noted near the ulnar styloid process. Mild soft tissue swelling is present. No acute fracture, or dislocation is noted. [employer] Phone: Mauri, pn Incoming R adiant Results From [employer] - 03/09/2021 10:56 AM EDT EXAMINATION: 3 XRAY VIEWS OF THE RIGHT WRIST 03/09/2021 10:34 am COMPARISON: None. HISTORY: ORDERING SYSTEM PROVIDED HISTORY: Pain TECHNOLOGIST PROVIDED HISTORY: Pain FINDINGS: Moderate arthritic changes are present on the radial aspect of the wrist involving the navicular multangular and multangular metacarpal joints. Accessory ossicle is noted near the ulnar styloid process. Mild soft tissue swelling is present. No acute fracture, or dislocation is noted. IMPRESSION: Arthritic changes and mild soft tissue swelling without acute osseous abnormality. [employer] Phone: [employer] Phone: DUP CAROTID BILATERALon 1 10-17-2019 [facility] Carotid Procedure Patient Name ALVA Date of Study 08/16/2020 NOEL Vaca Date of 1960 Gender Male Age 59 year(s) Race Room Number Corporate ID # [id number] Patient MR # [id number] [employer] Tobar Interpreting Physician Mike Centeno MD Referring Yoselin Gonzalez Referring Physician Nurse Kymberly BUCKNER Practitioner Procedure Type of Study: Cerebral: Carotid, Carotid Scan Bilateral. Patient Status:Out Patient. Technical Quality:Adequate visualization. Comments:INDICATIONS: Peripheral vascular disease Other specified peripheral vascular diseases, I73.89 Conclusions Summary Hemodynamically normal carotid artery scan. No significant plaque disease. Signature Findings: Right Impression: Left Impression: There is intimal thickening in the CCA, There is intimal thickening in the carotid Bulb, and prox. ICA. CCA and carotid Bulb. Peak systolic velocities are within Peak systolic velocities are normal limits. within normal limits. No spectral broadening is noted. No spectral broadening is noted. Vertebral artery flow is antegrade. Vertebral artery flow is antegrade. Allergies - Allergy:*No Known Allergies(Miscellaneous). Velocities are measured in cm/s ; Diameters are measured in cm Carotid Right Measurements + +--------+---- ----+--------+-------+----- -------+ + !Location !PSV !EDV !Angle !RI !%Stenosis !Tortuosity ! + +--------+---- ----+--------+-------+----- -------+ + !Prox CCA !79.42 !16.82 ! !0.79 ! ! ! + +--------+---- ----+--------+-------+----- -------+ + !Mid CCA !70 !12.18 ! !0.83 ! ! ! + +--------+---- ----+--------+-------+----- -------+ + !Dist CCA !60.93 !14.24 ! !0.77 ! ! ! + +--------+---- ----+--------+-------+----- -------+ + !Bulb !57.34 !17.84 ! !0.69 ! ! ! + +--------+---- ----+--------+-------+----- -------+ + !Prox ICA !39.07 !12.74 ! !0.67 ! ! ! + +--------+---- ----+--------+-------+----- -------+ + !Mid ICA !48.11 !15.54 ! !0.68 ! ! ! + +--------+---- ----+--------+-------+----- -------+ + !Dist ICA !44.8 !20.24 ! !0.55 ! ! ! + +--------+---- ----+--------+-------+----- -------+ + !Prox ECA !66.05 !7.36 ! !0.89 ! ! ! + +--------+---- ----+--------+-------+----- -------+ + !Vertebral !39.32 !10.99 ! !0.72 ! ! ! + +--------+---- ----+--------+-------+----- -------+ + - There is antegrade vertebral flow noted on the right side. - Additional Measurements:ICAPSV/CCAPSV 0.61.ICAEDV/CCAEDV 1.2. Carotid Left Measurements + +--------+---- ----+--------+-------+----- -------+ + !Location !PSV !EDV !Angle !RI !%Stenosis !Tortuosity ! + +--------+---- ----+--------+-------+----- -------+ + !Prox CCA !62.84 !13.76 ! !0.78 ! ! ! + +--------+---- ----+--------+-------+----- -------+ + !Mid CCA !57.48 !13.76 ! !0.76 ! ! ! + +--------+---- ----+--------+-------+----- -------+ + !Dist CCA !57.48 !14.82 ! !0.74 ! ! ! + +--------+---- ----+--------+-------+----- -------+ + !Bulb !41.41 !13.47 ! !0.67 ! ! ! + +--------+---- ----+--------+-------+----- -------+ + !Prox ICA !31.02 !11.68 ! !0.62 ! ! ! + +--------+---- ----+--------+-------+----- -------+ + !Mid ICA !47.61 !20.57 ! !0.57 ! ! ! + +--------+---- ----+--------+-------+----- -------+ + !Dist ICA !45.08 !18.8 ! !0.58 ! ! ! + +--------+---- ----+--------+-------+----- -------+ + !Prox ECA !51.52 !10.88 ! !0.79 ! ! ! + +--------+---- ----+--------+-------+----- -------+ + !Vertebral !31.18 !8.71 ! !0.72 ! ! ! + +--------+---- ----+--------+-------+----- -------+ + - There is antegrade vertebral flow noted on the left side. - Additional Measurements:ICAPSV/CCAPSV 0.76.ICAEDV/CCAEDV 1.49. [facility] [place], [place] Mauri, Sadaf coats Results From [facility]/ - 08/17/2020 9:08 AM [facility] Carotid Procedure Patient Name ALVA Date of Study 08/16/2020 NOEL Vaca Date of 1960 Gender Male Age 59 year(s) Race Room Number Corporate ID # [id number] Patient MR # [id number] [employer] KEVON Tobar Interpreting Physician Mike Centeno MD Referring Yoselin Gonzalez Referring Physician Nurse Kymberly BUCKNER Practitioner Procedure Type of Study: Cerebral: Carotid, Carotid Scan Bilateral. Patient Status:Out Patient. Technical Quality:Adequate visualization. Comments:INDICATIONS: Peripheral vascular disease Other specified peripheral vascular diseases, I73.89 Conclusions Summary Hemodynamically normal carotid artery scan. No significant plaque disease. Signature Findings: Right Impression: Left Impression: There is intimal thickening in the CCA, There is intimal thickening in the carotid Bulb, and prox. ICA. CCA and carotid Bulb. Peak systolic velocities are within Peak systolic velocities are normal limits. within normal limits. No spectral broadening is noted. No spectral broadening is noted. Vertebral artery flow is antegrade. Vertebral artery flow is antegrade. Allergies - Allergy:*No Known Allergies(Miscellaneous). Velocities are measured in cm/s ; Diameters are measured in cm Carotid Right Measurements + +--------+---- ----+--------+-------+----- -------+ + !Location !PSV !EDV !Angle !RI !%Stenosis !Tortuosity ! + +--------+---- ----+--------+-------+----- -------+ + !Prox CCA !79.42 !16.82 ! !0.79 ! ! ! + +--------+---- ----+--------+-------+----- -------+ + !Mid CCA !70 !12.18 ! !0.83 ! ! ! + +--------+---- ----+--------+-------+----- -------+ + !Dist CCA !60.93 !14.24 ! !0.77 ! ! ! + +--------+---- ----+--------+-------+----- -------+ + !Bulb !57.34 !17.84 ! !0.69 ! ! ! + +--------+---- ----+--------+-------+----- -------+ + !Prox ICA !39.07 !12.74 ! !0.67 ! ! ! + +--------+---- ----+--------+-------+----- -------+ + !Mid ICA !48.11 !15.54 ! !0.68 ! ! ! + +--------+---- ----+--------+-------+----- -------+ + !Dist ICA !44.8 !20.24 ! !0.55 ! ! ! + +--------+---- ----+--------+-------+----- -------+ + !Prox ECA !66.05 !7.36 ! !0.89 ! ! ! + +--------+---- ----+--------+-------+----- -------+ + !Vertebral !39.32 !10.99 ! !0.72 ! ! ! + +--------+---- ----+--------+-------+----- -------+ + - There is antegrade vertebral flow noted on the right side. - Additional Measurements:ICAPSV/CCAPSV 0.61.ICAEDV/CCAEDV 1.2. Carotid Left Measurements + +--------+---- ----+--------+-------+----- -------+ + !Location !PSV !EDV !Angle !RI !%Stenosis !Tortuosity ! + +--------+---- ----+--------+-------+----- -------+ + !Prox CCA !62.84 !13.76 ! !0.78 ! ! ! + +--------+---- ----+--------+-------+----- -------+ + !Mid CCA !57.48 !13.76 ! !0.76 ! ! ! + +--------+---- ----+--------+-------+----- -------+ + !Dist CCA !57.48 !14.82 ! !0.74 ! ! ! + +--------+---- ----+--------+-------+----- -------+ + !Bulb !41.41 !13.47 ! !0.67 ! ! ! + +--------+---- ----+--------+-------+----- -------+ + !Prox ICA !31.02 !11.68 ! !0.62 ! ! ! + +--------+---- ----+--------+-------+----- -------+ + !Mid ICA !47.61 !20.57 ! !0.57 ! ! ! + +--------+---- ----+--------+-------+----- -------+ + !Dist ICA !45.08 !18.8 ! !0.58 ! ! ! + +--------+---- ----+--------+-------+----- -------+ + !Prox ECA !51.52 !10.88 ! !0.79 ! ! ! + +--------+---- ----+--------+-------+----- -------+ + !Vertebral !31.18 !8.71 ! !0.72 ! ! ! + +--------+---- ----+--------+-------+----- -------+ + - There is antegrade vertebral flow noted on the left side. - Additional Measurements:ICAPSV/CCAPSV 0.76.ICAEDV/CCAEDV 1.49. [place], [place] CBC auto differentialon 07-06 Basophils (Bld) [#/Vol] 0.04 10*3/uL [place] Basophils/100 WBC (Bld) 0 % 0 - 2 % [place] Differential Type NOT REPORTED [place] Eosinophils (Bld) [#/Vol] 0.04 10*3/uL [place] Eosinophils/100 WBC (Bld) 0 % Low 1 - 4 % [place] Erythrocyte distribution width (RBC) [Ratio] 13.9 % 11.8 - 14.4 % [place] Hematocrit (Bld) [Volume fraction] 42.7 % 40.7 - 50.3 % [place] Hemoglobin (Bld) [Mass/Vol] 14.3 g/dL 13 - 17 g/dL [place] Immature granulocytes (Bld) [#/Vol] 0.03 10*3/uL [place] Immature granulocytes (Bld) [#/Vol] 0 % 0 [place] Interpretation and review of laboratory results Abnormal [place] Lymphocytes (Bld) [#/Vol] 1.95 10*3/uL [place] Lymphocytes/100 WBC (Bld) 20 % Low 24 - 43 % [place] MCH (RBC) [Entitic mass] 31.2 pg 25.2 - 33.5 pg [place] MCHC (RBC) [Mass/Vol] 33.5 g/dL 28.4 - 34.8 g/dL [place] MCV (RBC) [Entitic vol] 93.0 fL 82.6 - 102.9 fL [place] Monocytes (Bld) [#/Vol] 0.96 10*3/uL [place] Monocytes/100 WBC (Bld) 10 % 3 - 12 % [place] Platelet mean volume (Bld) [Entitic vol] 10.2 fL 8.1 - 13.5 fL [place] Platelets (Bld) [#/Vol] NOT REPORTED [place] Platelets (Bld) [#/Vol] 189 10*3/uL [place] RBC (Bld) [#/Vol] 4.59 10*6/uL 4.21 - 5.77 m/uL [place] RBC morphology finding Nom (Bld) NOT REPORTED [place] Segmented neutrophils/100 WBC (Bld) 70 % High 36 - 65 % [place] Segs Absolute 7.00 [place], [place] WBC (Bld) [#/Vol] 10.0 10*3/uL [place] WBC (Bld) [#/Vol] 0.0 10*3/uL 0.0 per 100 WBC [place] WBC Morphology NOT REPORTED [place], [place] CT ABDOMEN PELVIS WO CONTRAS T Additional Contrast? Noneon 07-18-2020 No renal calculi, ur eteral calculi, or findings to suggest a recently passed stone. No CT findings of acute cholecystitis. No definite acute intra-or pelvic process seen. The appendix is questionably seen, though inseparable from the cecum. If any clinical concern for right lower quadrant point tenderness, this would be best assessed with a CT study with IV and oral contrast to better evaluate the region of the cecum and appendix. The terminal ileum appears normal. No inflammatory induration seen within the fat adjacent to the cecum however to suggest a definite acute inflammatory process. [place], [place] EXAMINATION: CT OF T HE ABDOMEN AND PELVIS WITHOUT CONTRAST 07/18/2020 8:41 am TECHNIQUE: CT of the abdomen and pelvis was performed without the administration of intravenous contrast. Multiplanar reformatted images are provided for review. Dose modulation, iterative reconstruction, and/or weight based adjustment of the mA/kV was utilized to reduce the radiation dose to as low as reasonably achievable. COMPARISON: None. HISTORY: ORDERING SYSTEM PROVIDED HISTORY: right flank pain TECHNOLOGIST PROVIDED HISTORY: right flank pain FINDINGS: Lower Chest: Subsegmental atelectasis is identified. Tiny volume of pericardial fluid. No cardiomegaly is identified. Organs: No hypodense mass identified in the liver or spleen. The gallbladder appears unremarkable. No adrenal mass is identified. No pancreatic mass. No peripancreatic inflammatory process is identified. The gallbladder appears unremarkable. No adrenal mass is identified. No pancreatic hypodense mass or peripancreatic inflammatory process is identified. Small probable splenule seen adjacent to the spleen. No renal calculi are identified. No ureteral calculi are seen. No periureteral stranding to suggest a recently passed stone. GI/Bowel: Diverticulosis. No acute diverticulitis is identified. No ileus or obstruction is identified. The appendix is questionably seen though inseparable from the cecum. Pelvis: No pelvic mass is identified. The bladder appears unremarkable. No free fluid is identified in the pelvis. No bulky pelvic lymphadenopathy is identified. Peritoneum/Retroperitoneum: No abdominal aortic aneurysm is identified. Atherosclerotic calcifications are seen. No retroperitoneal or mesenteric lymphadenopathy is identified. Bones/Soft Tissues: No acute subcutaneous soft tissue abnormality is identified. No acute osseous abnormality is identified. Multilevel degenerative changes are seen within the spine. No acute osseous fracture is identified. The greatest degree of degenerative changes seen at the level of L3-L4 with a disc osteophyte complex and moderate canal stenosis. No pars defects. [place], [place] Mauri, Mhpn Incoming R adiant Results From [employer] - 07/18/2020 9:12 AM EDT EXAMINATION: CT OF THE ABDOMEN AND PELVIS WITHOUT CONTRAST 07/18/2020 8:41 am TECHNIQUE: CT of the abdomen and pelvis was performed without the administration of intravenous contrast. Multiplanar reformatted images are provided for review. Dose modulation, iterative reconstruction, and/or weight based adjustment of the mA/kV was utilized to reduce the radiation dose to as low as reasonably achievable. COMPARISON: None. HISTORY: ORDERING SYSTEM PROVIDED HISTORY: right flank pain TECHNOLOGIST PROVIDED HISTORY: right flank pain FINDINGS: Lower Chest: Subsegmental atelectasis is identified. Tiny volume of pericardial fluid. No cardiomegaly is identified. Organs: No hypodense mass identified in the liver or spleen. The gallbladder appears unremarkable. No adrenal mass is identified. No pancreatic mass. No peripancreatic inflammatory process is identified. The gallbladder appears unremarkable. No adrenal mass is identified. No pancreatic hypodense mass or peripancreatic inflammatory process is identified. Small probable splenule seen adjacent to the spleen. No renal calculi are identified. No ureteral calculi are seen. No periureteral stranding to suggest a recently passed stone. GI/Bowel: Diverticulosis. No acute diverticulitis is identified. No ileus or obstruction is identified. The appendix is questionably seen though inseparable from the cecum. Pelvis: No pelvic mass is identified. The bladder appears unremarkable. No free fluid is identified in the pelvis. No bulky pelvic lymphadenopathy is identified. Peritoneum/Retroperitoneum: No abdominal aortic aneurysm is identified. Atherosclerotic calcifications are seen. No retroperitoneal or mesenteric lymphadenopathy is identified. Bones/Soft Tissues: No acute subcutaneous soft tissue abnormality is identified. No acute osseous abnormality is identified. Multilevel degenerative changes are seen within the spine. No acute osseous fracture is identified. The greatest degree of degenerative changes seen at the level of L3-L4 with a disc osteophyte complex and moderate canal stenosis. No pars defects. IMPRESSION: No renal calculi, ureteral calculi, or findings to suggest a recently passed stone. No CT findings of acute cholecystitis. No definite acute intra-or pelvic process seen. The appendix is questionably seen, though inseparable from the cecum. If any clinical concern for right lower quadrant point tenderness, this would be best assessed with a CT study with IV and oral contrast to better evaluate the region of the cecum and appendix. The terminal ileum appears normal. No inflammatory induration seen within the fat adjacent to the cecum however to suggest a definite acute inflammatory process. [facility], [place] Comprehensive Metabolic Pane [facility] 07-18-2020 Albumin [Mass/Vol] 4.3 g/dL 3.5 - 5.2 g/dL [place] Albumin/Globulin [Mass ratio] 1.5 {ratio} [place] ALP [Catalytic activity/Vol] 71 U/L 40 - 129 U/L [place] ALT [Catalytic activity/Vol] 26 U/L 5 - 41 U/L [place] Anion gap [Moles/Vol] 13 mmol/L 9 - 17 mmol/L [place] AST [Catalytic activity/Vol] 26 U/L <40 [place] Bilirubin Ql (U) 1.44 mg/dL High 0.3 - 1.2 mg/dL [place] Bun/Cre Ratio 28 [place] Calcium [Mass/Vol] 9.4 mg/dL 8.6 - 10. 4 mg/dL [place] Chloride [Moles/Vol] 103 mmol/L 98 - 10 7 mmol/L [place] CO2 [Moles/Vol] 23 mmol/L 20 - 31 mmol/L [place] Creatinine [Mass/Vol] 0.79 mg/dL 0.7 - 1.2 mg/dL [place] GFR >60 >60 mL/min [place] GFR Non- >60 >60 mL/min [place] Glucose [Mass/Vol] 93 mg/dL 70 - 99 mg/dL [place] Interpretation and review of laboratory results Abnormal [place] Potassium [Moles/Vol] 3.9 mmol/L 3.7 - 5.3 mmol/L [place] Protein [Mass/Vol] 7.1 g/dL 6.4 - 8.3 g/dL [place] Sodium [Moles/Vol] 139 mmol/L 135 - 144 mmol/L [place] Urea nitrogen [Mass/Vol] 22 mg/dL High 6 - 20 mg/dL [place] EKG 12 Leadon 07-18-2020 Atrial Rate 58 BPM [place] P [place] 45 degrees [place] P-R Interval 138 ms [place] Q-T Interval 478 ms [place] QRS Duration 74 ms [place] QTc Calculation (Bazett) 469 ms [place] R [place] 49 degrees [place] T [place] 129 degrees [place] Ventricular Rate 58 BPM [place] Sinus bradycardia T wave abnormality, consider lateral ischemia Prolonged QT Abnormal ECG When compared with ECG of 14-JUN-2019 10:26, Nonspecific T wave abnormality has replaced inverted T waves in Inferior leads T wave inversion less evident in Anterior leads Confirmed by JW KAY ([id number]) on 07/18/2020 11:37:03 AM [place], [place] Mauri, Mhpn Incoming E kg Results From [facility] [place] - 07/18/2020 11:37 AM EDT Sinus bradycardia T wave abnormality, consider lateral ischemia Prolonged QT Abnormal ECG When compared with ECG of 14-JUN-2019 10:26, Nonspecific T wave abnormality has replaced inverted T waves in Inferior leads T wave inversion less evident in Anterior leads Confirmed by JW KAY ([id number]) on 07/18/2020 11:37:03 AM [place] Lipaseon 07-18-2020 Lipase [Catalytic activity/Vol] 30 U/L 13 - 60 U/L [place] Metabolic Panelon 07-18-2020 GFR/1.73 sq M predicted among non-blacks MDRD (S/P/Bld) [Vol rate/Area] [place] Comment on above: Stage 1: Some kidney damage normal GFR Stage 2: Mild kidney damage GFR 60-89 Stage 3: Moderate kidney damage GFR 30-59 Stage 4: Severe kidney damage GFR 15-29 Stage 5: Severe kidney damage GFR <15 ESRD - chronic treatment by dialysis or transplant Average GFR for 50-5 9 years old: 93 mL/min/1.73sq m Chronic Kidney Disease: <60 mL/min/1.73sq m Kidney failure: <15 mL/min/1.73sq m eGFR calculated using average adult body mass. Additional eGFR calculator available at: http://www.[employer].lmbang/multiple_crcl_2012.htm Microscopic Urinalysison Amorphous, UA NOT REPORTED None [place] Bacteria, UA NOT REPORTED None [place] Casts UA NOT REPORTED /LPF [place] Crystals, UA NOT REPORTED None /HPF [place] Epithelial Cells UA 0 TO 2 [place] Mucus, UA NOT REPORTED None [place] Other Observations UA NOT REPORTED NOT REQ. [place] RBC (U) [#/Vol] None [place] Renal Epithelial, UA NOT REPORTED 0 /HPF [place] Trichomonas, UA NOT REPORTED None [place], [place] WBC, UA 0 TO 2 [place] Yeast, UA NOT REPORTED None [place] - [place] Troponinon 07-18-2020 Troponin I.cardiac [Mass/Vol] NOT REPORTED [place] Troponin T.cardiac [Mass/Vol] NOT REPORTED <0.03 ng/mL [place] Troponin, High Sensitivity 18 ng/L 0 - 22 ng/L [place] Comment on above: High Sensitivity Troponin values cannot be compared with other Troponin methodologies. Patients with high levels of Biotin oral intake (i.e >5mg/day) may have falsely decreased Troponin levels. Samples collected within 8 hours of biotin intake may require additional information for diagnosis. Troponin I.cardiac [Mass/Vol] NOT REPORTED [place] Troponin T.cardiac [Mass/Vol] NOT REPORTED <0.03 ng/mL [place] Troponin, High Sensitivity 21 ng/L 0 - 22 ng/L [place] Comment on above: High Sensitivity Troponin values cannot be compared with other Troponin methodologies. Patients with high levels of Biotin oral intake (i.e >5mg/day) may have falsely decreased Troponin levels. Samples collected within 8 hours of biotin intake may require additional information for diagnosis. Urinalysis Reflex to Culture on 07-18-2020 Bilirubin Urine Negative NEGATIVE [place] Color, UA YELLOW YELLOW [place] Glucose, Ur Negative NEGATIVE [place] Interpretation and review of laboratory results Abnormal [place] Ketones Ql (U) 1+ Abnormal NEGATIVE [place] Leukocyte esterase Test strip Ql (U) Negative NEGATIVE [place] Nitrite, Urine Negative NEGATIVE [place] pH, UA 7.0 [place] Protein (U) [Mass/Vol] Negative NEGATIVE [place] Specific [place], UA 1.020 [place], [place] Turbidity UA CLEAR CLEAR [place] Urinalysis Comments NOT REPORTED [place] Urine Hgb Negative NEGATIVE [place] Urobilinogen, Urine Normal Normal [place] XR CHEST (SINGLE VIEW FRONTA L)on 07-18-2020 Mauri, Mhpn Incoming R adiant Results From [employer] - 07/18/2020 8:54 AM EDT EXAMINATION: ONE XRAY VIEW OF THE CHEST 07/18/2020 8:44 am COMPARISON: June 14, 2019 HISTORY: ORDERING SYSTEM PROVIDED HISTORY: epig pain TECHNOLOGIST PROVIDED HISTORY: epig pain FINDINGS: Is no evidence of focal infiltrate, effusion, pneumothorax. Heart mediastinum appear normal. Visualized bony thorax shows no acute abnormality. IMPRESSION: No acute findings of the chest, stable when compared to previous. [place] EXAMINATION: ONE XRA Y VIEW OF THE CHEST 07/18/2020 8:44 am COMPARISON: June 14, 2019 HISTORY: ORDERING SYSTEM PROVIDED HISTORY: epig pain TECHNOLOGIST PROVIDED HISTORY: epig pain FINDINGS: Is no evidence of focal infiltrate, effusion, pneumothorax. Heart mediastinum appear normal. Visualized bony thorax shows no acute abnormality. [place] No acute findings of the chest, stable when compared to previous. [place] CBC Auto Differentialon 09-0 Basophils (Bld) [#/Vol] 0.05 10*3/uL [place] Basophils/100 WBC (Bld) 1 % 0 - 2 % [place] Differential Type NOT REPORTED [place] Eosinophils (Bld) [#/Vol] 10*3/uL [place] Eosinophils/100 WBC (Bld) 0 % Low 1 - 4 % [place] Erythrocyte distribution width (RBC) [Ratio] 12.9 % 11.8 - 14.4 % [place] Hematocrit (Bld) [Volume fraction] 45.7 % 40.7 - 50.3 % [place] Hemoglobin (Bld) [Mass/Vol] 15.5 g/dL 13 - 17 g/dL [place] Immature granulocytes (Bld) [#/Vol] 10*3/uL [place] Immature granulocytes (Bld) [#/Vol] 0 % 0 [place] Interpretation and review of laboratory results Abnormal [place] Lymphocytes (Bld) [#/Vol] 1.83 10*3/uL [place] Lymphocytes/100 WBC (Bld) 19 % Low 24 - 43 % [place] MCH (RBC) [Entitic mass] 31.1 pg 25.2 - 33.5 pg [place] MCHC (RBC) [Mass/Vol] 33.9 g/dL 28.4 - 34.8 g/dL [place] MCV (RBC) [Entitic vol] 91.6 fL 82.6 - 102.9 fL [place] Monocytes (Bld) [#/Vol] 0.86 10*3/uL [place] Monocytes/100 WBC (Bld) 9 % 3 - 12 % [place] Platelet mean volume (Bld) [Entitic vol] 9.7 fL 8.1 - 13.5 fL [place] Platelets (Bld) [#/Vol] 195 10*3/uL [place] Platelets (Bld) [#/Vol] NOT REPORTED [place] RBC (Bld) [#/Vol] 4.99 10*6/uL 4.21 - 5.77 m/uL [place] RBC morphology finding Nom (Bld) NOT REPORTED [place] Segmented neutrophils/100 WBC (Bld) 71 % High 36 - 65 % [place] Segs Absolute 7.08 [place] WBC (Bld) [#/Vol] 9.9 10*3/uL [place] WBC (Bld) [#/Vol] 0.0 10*3/uL 0.0 per 100 WBC [place] WBC Morphology NOT REPORTED [place] Comprehensive Metabolic Pane l w/ Reflex to MGon 06-14-2019 Albumin [Mass/Vol] 4.4 g/dL 3.5 - 5.2 g/dL [place] Albumin/Globulin [Mass ratio] 1.2 {ratio} [place] ALP [Catalytic activity/Vol] 77 U/L 40 - 129 U/L [place] ALT [Catalytic activity/Vol] 19 U/L 5 - 41 U/L [place] Anion gap [Moles/Vol] 15 mmol/L 9 - 17 mmol/L [place] AST [Catalytic activity/Vol] 22 U/L <40 [place] Bilirubin Ql (U) 0.61 mg/dL 0.3 - 1.2 mg/dL [place] Bun/Cre Ratio 23 High [place] Calcium [Mass/Vol] 10.0 mg/dL 8.6 - 10. 4 mg/dL [place] Chloride [Moles/Vol] 98 mmol/L 98 - 10 7 mmol/L [place] CO2 [Moles/Vol] 24 mmol/L 20 - 31 mmol/L [place] Creatinine [Mass/Vol] 0.82 mg/dL 0.7 - 1.2 mg/dL [place] GFR >60 >60 mL/min [place] GFR Non- >60 >60 mL/min [place] Glucose [Mass/Vol] 98 mg/dL 70 - 99 mg/dL [place] Interpretation and review of laboratory results Abnormal [place] Potassium [Moles/Vol] 4.0 mmol/L 3.7 - 5.3 mmol/L [place] Protein [Mass/Vol] 8.2 g/dL 6.4 - 8.3 g/dL [place] Sodium [Moles/Vol] 137 mmol/L 135 - 144 mmol/L [place] Urea nitrogen [Mass/Vol] 19 mg/dL 6 - 20 mg/dL [place] D-Dimer, Quantitativeon 09 D-Dimer, Quant 0.42 [place] Comment on above: Elevated levels of D dimer can be seen in any state of coagulation activation including DVT, PE, arterial thrombosis, DIC, inflamatory disease, trauma, malignancy, sepsis, infection, hematoma, liver disease, post surgical state, , atherosclerosis, old age. When combined with a low clinical probability, a D dimer value of <0.50 mg/L is considered negative for DVT and PE (negative predictive value of 98%). Lipaseon 06-14-2019 Lipase [Catalytic activity/Vol] 37 U/L 13 - 60 U/L [place] Metabolic Panelon 06-14-2019 GFR/1.73 sq M predicted among non-blacks MDRD (S/P/Bld) [Vol rate/Area] [place] Comment on above: Average GFR for 50-5 9 years old: 93 mL/min/1.73sq m Chronic Kidney Disease: <60 mL/min/1.73sq m Kidney failure: <15 mL/min/1.73sq m eGFR calculated using average adult body mass. Additional eGFR calculator available at: http://www.[employer]ion/multiple_crcl_2012.htm Stage 1: Some kidney damage normal GFR Stage 2: Mild kidney damage GFR 60-89 Stage 3: Moderate kidney damage GFR 30-59 Stage 4: Severe kidney damage GFR 15-29 Stage 5: Severe kidney damage GFR <15 ESRD - chronic treatment by dialysis or transplant Troponinon 06-14-2019 Troponin I.cardiac [Mass/Vol] [place] Comment on above: Reference Range: <0.03 Within reference range. 0.03-0.09 Possible myocardial damage. Repeat at appropriate intervals to rule out chronic elevation. >= 0.10 Indicative of myocardial damage. Patients with high levels of Biotin oral intake (i.e >5mg/day) may have falsely decreased Troponin T levels. Samples collected within 8 hours of biotin intake may require additional information for diagnosis. Troponin T.cardiac [Mass/Vol] ug/L <0.03 ng/mL [place] Comment on above: Troponin T results c annot be compared to Troponin-I results. Troponin, High Sensitivity NOT REPORTED 0 - 22 ng/L [place] Troponin I.cardiac [Mass/Vol] [place] Comment on above: Reference Range: <0.03 Within reference range. 0.03-0.09 Possible myocardial damage. Repeat at appropriate intervals to rule out chronic elevation. >= 0.10 Indicative of myocardial damage. Patients with high levels of Biotin oral intake (i.e >5mg/day) may have falsely decreased Troponin T levels. Samples collected within 8 hours of biotin intake may require additional information for diagnosis. Troponin T.cardiac [Mass/Vol] ug/L <0.03 ng/mL [place] Comment on above: Troponin T results c annot be compared to Troponin-I results. Troponin, High Sensitivity NOT REPORTED 0 - 22 ng/L [place] APTTon 01-13-2018 aPTT 24.4 s Normal 20.5-30.5 [facility] Comment on above: Result Comment: [address] [address] Performed By: #### C BC, PTT, TROPI, GLYHGB ####[address] [address] Basic Metabolic Profon 01-13 (cont.) Normal [facility] Comment on above: Result Comment: Aver age GFR for 50-59 years old: 93 mL/min/1.73sq mChronic Kidney Disease: <60 mL/min/1.73sq mKidney failure: <15 mL/min/1.73sq meGFR calculated using average adult body mass. Additional eGFR calculator available at:http://www.[employer]HL[employer].com/multiple_crcl_2012.htm[address] [address] Performed By: #### C BC, PTT, TROPI, GLYHGB ####[address] [address] Anion gap 9 mmol/L Normal 9-17 [facility] Comment on above: Performed By: #### C BC, PTT, TROPI, GLYHGB ####[facility] [place] [address] Calcium 9.3 mg/dL Normal 8.6-10.4 [facility] Comment on above: Performed By: #### C BC, PTT, TROPI, GLYHGB ####[address] [address] Chloride 102 mmol/L Normal 98-107 [facility] Comment on above: Performed By: #### C BC, PTT, TROPI, GLYHGB ####[address] [address] CO2 24 mmol/L Normal 20-31 [facility] Comment on above: Performed By: #### C BC, PTT, TROPI, GLYHGB ####[address] [address] Creatinine 0.75 mg/dL Normal 0.70-1.20 [facility] Comment on above: Performed By: #### C BC, PTT, TROPI, GLYHGB ####[address] [place] [address] eGFR (non-black) mL/min/{1.73_m2} Normal >60 [facility] Comment on above: Performed By: #### C BC, PTT, TROPI, GLYHGB ####[facility] [address] [place] [address] Glucose mass conc 104 mg/dL High 70-99 [facility] Comment on above: Performed By: #### C BC, PTT, TROPI, GLYHGB ####[address] [place] [address] Potassium molar conc 5.0 mmol/L Normal 3.7-5.3 [place] Comment on above: Result Comment: TEST CONFIRMED Performed By: #### C BC, PTT, TROPI, GLYHGB ####[address] [address] Sodium 135 mmol/L Normal 135-144 [facility] Comment on above: Performed By: #### C BC, PTT, TROPI, GLYHGB ####[address] [address] Urea nitrogen 12 mg/dL Normal 6-20 [facility] Comment on above: Performed By: #### C BC, PTT, TROPI, GLYHGB ####[address] [address] BUN/CRE Ratio NOT REPORTED Normal -20 [facility] Comment on above: Performed By: #### C BC, PTT, TROPI, GLYHGB ####[address] [address] Staging: NOT REPORTED Normal [facility] Comment on above: Performed By: #### C BC, PTT, TROPI, GLYHGB ####[address] [address] (cont.) Normal [facility] Comment on above: Result Comment: Aver age GFR for 50-59 years old: 93 mL/min/1.73sq mChronic Kidney Disease: <60 mL/min/1.73sq mKidney failure: <15 mL/min/1.73sq meGFR calculated using average adult body mass. Additional eGFR calculator available at:http://www.[employer]HLvision [employer].com/multiple_crcl_2012.htm[address] [address] Performed By: #### C BC, PTT, TROPI, GLYHGB ####[address] [address] Anion gap 11 mmol/L Normal 9-17 [facility] Comment on above: Performed By: #### C BC, PTT, TROPI, GLYHGB ####[address] [place] [address] Calcium 8.6 mg/dL Normal 8.6-10.4 [facility] Comment on above: Performed By: #### C BC, PTT, TROPI, GLYHGB ####[address] [address] Chloride 100 mmol/L Normal 98-107 [facility] Comment on above: Performed By: #### C BC, PTT, TROPI, GLYHGB ####[address] [address] CO2 24 mmol/L Normal 20-31 [facility] Comment on above: Performed By: #### C BC, PTT, TROPI, GLYHGB ####[address] [address] Creatinine 0.64 mg/dL Low 0.70-1.20 [facility] Comment on above: Performed By: #### C BC, PTT, TROPI, GLYHGB ####[address] [place] [address] eGFR (non-black) mL/min/{1.73_m2} Normal >60 [facility] Comment on above: Performed By: #### C BC, PTT, TROPI, GLYHGB ####[facility] [address] [place] [address] Glucose mass conc 102 mg/dL High 70-99 [facility] Comment on above: Performed By: #### C BC, PTT, TROPI, GLYHGB ####[address] [place] [address] Potassium molar conc 3.5 mmol/L Low 3.7-5.3 [place] Comment on above: Performed By: #### C BC, PTT, TROPI, GLYHGB ####[facility] [address] [place] [address] Sodium 135 mmol/L Normal 135-144 [facility] Comment on above: Performed By: #### C BC, PTT, TROPI, GLYHGB ####[facility] [address] [place] [address] Urea nitrogen 12 mg/dL Normal -20 [facility] Comment on above: Performed By: #### C BC, PTT, TROPI, GLYHGB ####[address] [address] BUN/CRE Ratio NOT REPORTED Normal - [facility] Comment on above: Performed By: #### C BC, PTT, TROPI, GLYHGB ####[address] [address] Staging: NOT REPORTED Normal [facility] Comment on above: Performed By: #### C BC, PTT, TROPI, GLYHGB ####[address] [address] Discharge Summaryon 01-14-20 18 HIM IP Note OR Revenue Audit Clerk Normal [facility] Magnesiumon 01-13-2018 Magnesium 2.2 mg/dL Normal 1.6-2.6 [facility] Comment on above: Result Comment: [address] [place] [address] Performed By: #### C BC, PTT, TROPI, GLYHGB ####[address] [place] [address] Magnesium 2.1 mg/dL Normal 1.6-2.6 [facility] Comment on above: Result Comment: [address] [place] [address] Performed By: #### C BC, PTT, TROPI, GLYHGB ####[address] [address] Plan of Careon 01-13-2018 HIM IP Note OR Revenue Audit Clerk Normal [facility] Progress Noteon 01-13-2018 HIM IP Note OR Revenue Audit Clerk Normal [facility] HIM IP Note OR Revenue Audit Clerk Normal [facility] HIM IP Note OR Revenue Audit Clerk Normal [facility] APTTon 01-12-2018 aPTT 47.5 s High 20.5-30.5 [facility] Comment on above: Result Comment: [facility] [address] [place] [address] Performed By: #### P TT ####[address] [address] aPTT 48.3 s High 20.5-30.5 [facility] Comment on above: Result Comment: [facility] [address] [place] [address] Performed By: #### P LT, PTT ####[address] [address] aPTT 50.8 s High 20.5-30.5 [facility] Comment on above: Result Comment: [facility] [address] [place] [address] Performed By: #### P TT ####[address] [address] Platelet Counton 01-12-2018 Platelets 154 10*3/uL Normal 138-453 [facility] Comment on above: Result Comment: [facility] [address] [place] [address] Performed By: #### P LT, PTT ####[address] [address] Progress Noteon 01-12-2018 HIM IP Note OR Revenue Audit Clerk Normal [facility] APTTon 01-11-2018 aPTT 38.0 s High 20.5-30.5 [facility] Comment on above: Result Comment: [address] [address] Performed By: #### P TT ####[address] [address] aPTT 35.3 s High 20.5-30.5 [facility] Comment on above: Result Comment: [facility] [address] [place] [address] Performed By: #### P TT ####[address] [address] aPTT 30.5 s Normal 20.5-30.5 [facility] Comment on above: Result Comment: [facility] [address] [place] [address] Performed By: #### P TT ####[address] [address] CBCon 01-11-2018 Erythrocyte distribution width Auto Ratio (RBC) 14.0 % Normal 11.8-14.4 [facility] Comment on above: Performed By: #### C BC, CP, LIPR, MG ####[address] [address] Erythrocytes (RBC) 0.0 per 100 WBC Normal 0.0 M [facility] Comment on above: Result Comment: [facility] [address] [place] [address] Performed By: #### C BC, CP, LIPR, MG ####[address] [address] Erythrocytes (RBC) 4.36 10*6/uL Normal 4.21-5.77 [place] Comment on above: Performed By: #### C BC, CP, LIPR, MG ####[facility] [place] [address] Hematocrit (HCT) 40.6 % Low 40.7-50.3 [facility] Comment on above: Performed By: #### C BC, CP, LIPR, MG ####[address] [address] Hemoglobin mass conc (Bld) 13.3 g/dL Normal 13.0-17.0 [facility] Comment on above: Performed By: #### C BC, CP, LIPR, MG ####[address] [address] MCH 30.5 pg Normal 25.2-33.5 [facility] Comment on above: Performed By: #### C BC, CP, LIPR, MG ####[address] [address] MCHC mass conc (RBC) 32.8 g/dL Normal 28.4-34.8 [place] Comment on above: Performed By: #### C BC, CP, LIPR, MG ####[address] [address] MCV 93.1 fL Normal 82.6-102.9 [facility] Comment on above: Performed By: #### C BC, CP, LIPR, MG ####[address] [place] [address] Platelet mean volume (PMV) 10.1 fL Normal 8.1-13.5 [facility] Comment on above: Performed By: #### C BC, CP, LIPR, MG ####[address] [place] [address] Platelets 153 10*3/uL Normal 138-453 [facility] Comment on above: Performed By: #### C BC, CP, LIPR, MG ####[facility] [address] [place] [address] WBC (Leukocytes) 9.5 10*3/uL Normal 3.5-11.3 [facility] Comment on above: Performed By: #### C BC, CP, LIPR, MG ####[address] [address] Comp Metabolic Profon 2017 (cont.) Normal [facility] Comment on above: Result Comment: Aver age GFR for 50-59 years old: 93 mL/min/1.73sq mChronic Kidney Disease: <60 mL/min/1.73sq mKidney failure: <15 mL/min/1.73sq meGFR calculated using average adult body mass. Additional eGFR calculator available at:http://www.[employer].lmbang/multiple_crcl_2011.htmKaiser Foundation [facility] [address] [place] [address] Performed By: #### C BC, CP, LIPR, MG ####[facility] CincinnatiHangtimeSou[address]ldxc[address] [place] [address] Alanine aminotransferase (ALT) 17 U/L Normal 5-41 [facility] Comment on above: Performed By: #### C BC, CP, LIPR, MG ####[facility] [address] [place] [address] Albumin 3.6 g/dL Normal 3.5-5.2 [facility] Comment on above: Performed By: #### C BC, CP, LIPR, MG ####[facility] [address] [place] [address] Albumin/Globulin Ratio 1.3 {ratio} Normal 1.0-2.5 [facility] Comment on above: Performed By: #### C BC, CP, LIPR, MG ####[facility] CincinnatiHangtimeQnkalpdqwtww[address]322 [place] [address] Alkaline Phos 76 U/L Normal 40-129 [facility] Comment on above: Performed By: #### C BC, CP, LIPR, MG ####[facility] CincinnatiHangtimeRggvngiboqou[address]992 [place] [address] Anion gap 14 mmol/L Normal 9-17 [facility] Comment on above: Performed By: #### C BC, CP, LIPR, MG ####[facility] [address] [place] [address] Aspartate aminotransferase (AST) 15 U/L Normal <40 [facility] Comment on above: Performed By: #### C BC, CP, LIPR, MG ####[facility] [address] [place] [address] Bilirubin Ql (U) 1.13 mg/dL Normal 0.3-1.2 [facility] Comment on above: Performed By: #### C BC, CP, LIPR, MG ####[facility] [address] [place] [address] Calcium 8.4 mg/dL Low 8.6-10.4 [facility] Comment on above: Performed By: #### C BC, CP, LIPR, MG ####[facility] [address] [place] [id number] Chloride 97 mmol/L Low 98-107 [facility] Comment on above: Performed By: #### C BC, CP, LIPR, MG ####[facility] Hesdtdwjtbpa8003 [place] [address] CO2 23 mmol/L Normal 20-31 [facility] Comment on above: Performed By: #### C BC, CP, LIPR, MG ####[facility] Ymiurffgibek9732 [place] [address] Creatinine 0.63 mg/dL Low 0.70-1.20 [facility] Comment on above: Performed By: #### C BC, CP, LIPR, MG ####[facility] Faypntmmwawg4704 [place] [address] eGFR (non-black) mL/min/{1.73_m2} Normal >60 Me [facility] Comment on above: Performed By: #### C BC, CP, LIPR, MG ####[facility] Augbkcmouaej8639 [place] [address] Glucose mass conc 107 mg/dL High 70-99 [facility] Comment on above: Performed By: #### C BC, CP, LIPR, MG ####[facility] Kknczvljvfzj2452 [place] [address] Potassium molar conc 3.6 mmol/L Low 3.7-5.3 [place] Comment on above: Performed By: #### C BC, CP, LIPR, MG ####[facility] Uubsoostwdhb6280 [place] [address] Protein 6.4 g/dL Normal 6.4-8.3 [facility] Comment on above: Performed By: #### C BC, CP, LIPR, MG ####[facility] Pimiraspfqph6763 [place] [address] Sodium 134 mmol/L Low 135-144 [facility] Comment on above: Performed By: #### C BC, CP, LIPR, MG ####[facility] Pxjzwptbgfyd3455 [place] [address] Urea nitrogen 19 mg/dL Normal 6-20 [facility] Comment on above: Performed By: #### C BC, CP, LIPR, MG ####[facility] Mctowzipjixz0350 [place] [address] BUN/CRE Ratio NOT REPORTED Normal 9-20 [facility] Comment on above: Performed By: #### C BC, CP, LIPR, MG ####[facility] Vpbdtuuaiqrx8157 [place] [address] Staging: NOT REPORTED Normal [facility] Comment on above: Performed By: #### C BC, CP, LIPR, MG ####[facility] [place] [address] Hemoglobin A1Con 2018 Glucose mass conc 114 mg/dL Normal [facility] Comment on above: Result Comment: The ADA and AACC recommend providing the estimated average glucose result to permit better patient understanding of their HBA1c result.[address] [address] Performed By: #### C BC, PTT, TROPI, GLYHGB ####[address] [place] [address] Hemoglobin A1c/Hemoglobin.total mass fraction (Bld) 5.6 % Normal 4.0-6.0 [facility] Comment on above: Performed By: #### C BC, PTT, TROPI, GLYHGB ####[address] [place] [address] Lipid Profileon 2018 Cholesterol 123 mg/dL Normal <200 [facility] Comment on above: Result Comment: Chol esterol Guidelines: <200 Desirable 200-240 Borderline >240 Undesirable Performed By: #### C BC, CP, LIPR, MG ####[facility] Gontllorexya8376 [place] [address] Cholesterol to HDL Ratio 2.0 {ratio} Normal <5 [facility] Comment on above: Performed By: #### C BC, CP, LIPR, MG ####[facility] Zwqgnnhgufpe2319 [place] [address] HDL Cholesterol 63 mg/dL Normal >40 [facility] Comment on above: Result Comment: HDL Guidelines: <40 Undesirable 40-59 Borderline >59 Desirable Performed By: #### C BC, CP, LIPR, MG ####[facility] Wsasfgwlouoi2989 [place] [address] LDL Cholesterol 38 mg/dL Normal 0-130 [facility] Comment on above: Result Comment: LDL Guidelines: <100 Desirable 100-129 Near to/above Desirable 130-159 Borderline >159 UndesirableDirect (measured) LDL and calculated LDL are not interchangeable tests. Performed By: #### C BC, CP, LIPR, MG ####[facility] Qijvrrvxbceh2940 [place] [address] Triglyceride 111 mg/dL Normal <150 [facility] Comment on above: Result Comment: Trig lyceride Guidelines: <150 Desirable 150- 199 Borderline 200-499 High >499 Very high Based on AHA Guidelines for fasting triglyceride, July 2012.[address] [address] Performed By: #### C BC, CP, LIPR, MG ####[facility] [address] [place] [address] Cholesterol in VLDL mass conc NOT REPORTED Normal 1-30 [facility] Comment on above: Performed By: #### C BC, CP, LIPR, MG ####[facility] [address] [place] [address] Magnesiumon 01-11-2018 Magnesium 2.1 mg/dL Normal 1.6-2.6 [facility] Comment on above: Result Comment: Apsalar [facility] [place] [address] Performed By: #### C BC, CP, LIPR, MG ####[facility] [address] [place] [address] Plan of Careon 01-11-2018 HIM IP Note OR Revenue Audit Clerk Normal [facility] HIM IP Note OR Revenue Audit Clerk Normal [facility] Progress Noteon 01-11-2018 HIM IP Note OR Revenue Audit Clerk Normal [facility] Troponinon 01-11-2018 Troponin I.cardiac mass conc Normal [facility] Comment on above: Result Comment: Refe rence Range: <0.03 Within reference range. 0.03-0.09 Possible myocardial damage.Repeat at appropriate intervals to rule out chronic elevation. >= 0.10 Indicative of myocardial damage.Patients with high levels of Biotin oral intake (i.e >5mg/day) may have falsely decreased Troponin T levels. Samples collected within 8 hours of biotin intake may require additional information for diagnosis.[employer] [address] [place] [address] Performed By: #### T ROPI ####[address] [address] Troponin T.cardiac mass conc ug/L Normal <0.03 [facility] Comment on above: Result Comment: Trop onin T results cannot be compared to Troponin-I results. Performed By: #### T ROPI ####[address] [address] APTTon 01-10-2018 aPTT 23.8 s Normal 20.5-30.5 [facility] Comment on above: Result Comment: [employer] [address] [place] [address] Performed By: #### C BC, PTT, TROPI, GLYHGB ####[facility] [address] [place] [address] CBCon 01-10-2018 Erythrocyte distribution width Auto Ratio (RBC) 14.2 % Normal 11.8-14.4 [facility] Comment on above: Performed By: #### C BC, PTT, TROPI, GLYHGB ####[facility] [address] [place] [address] Erythrocytes (RBC) 4.47 10*6/uL Normal 4.21-5.77 [place] Comment on above: Performed By: #### C BC, PTT, TROPI, GLYHGB ####[facility] [address] [place] [address] Erythrocytes (RBC) 0.0 per 100 WBC Normal 0.0 M [facility] Comment on above: Result Comment: [facility] [address] [place] [address] Performed By: #### C BC, PTT, TROPI, GLYHGB ####[facility] [place] [address] Hematocrit (HCT) 41.3 % Normal 40.7-50.3 [facility] Comment on above: Performed By: #### C BC, PTT, TROPI, GLYHGB ####[address] [address] Hemoglobin mass conc (Bld) 13.5 g/dL Normal 13.0-17.0 [facility] Comment on above: Performed By: #### C BC, PTT, TROPI, GLYHGB ####[address] [address] MCH 30.2 pg Normal 25.2-33.5 [facility] Comment on above: Performed By: #### C BC, PTT, TROPI, GLYHGB ####[address] [address] MCHC mass conc (RBC) 32.7 g/dL Normal 28.4-34.8 [place] Comment on above: Performed By: #### C BC, PTT, TROPI, GLYHGB ####[address] [address] MCV 92.4 fL Normal 82.6-102.9 [facility] Comment on above: Performed By: #### C BC, PTT, TROPI, GLYHGB ####[address] [address] Platelet mean volume (PMV) 10.1 fL Normal 8.1-13.5 [facility] Comment on above: Performed By: #### C BC, PTT, TROPI, GLYHGB ####[facility] [address]wfzg[address]65 [place] [address] Platelets 160 10*3/uL Normal 138-453 [facility] Comment on above: Performed By: #### C BC, PTT, TROPI, GLYHGB ####[facility] [place] [address] WBC (Leukocytes) 6.8 10*3/uL Normal 3.5-11.3 [facility] Comment on above: Performed By: #### C BC, PTT, TROPI, GLYHGB ####[address] [address] History and Physicalon 01-10 HIM IP Note OR Revenue Audit Clerk Normal [facility] Plan of Careon 01-10-2018 HIM IP Note OR Revenue Audit Clerk Normal [facility] Progress Noteon 01-10-2018 HIM IP Note OR Revenue Audit Clerk Normal [facility] Troponinon 01-10-2018 Troponin I.cardiac mass conc Normal [facility] Comment on above: Result Comment: Refe rence Range: <0.03 Within reference range. 0.03-0.09 Possible myocardial damage.Repeat at appropriate intervals to rule out chronic elevation. >= 0.10 Indicative of myocardial damage.Patients with high levels of Biotin oral intake (i.e >5mg/day) may have falsely decreased Troponin T levels. Samples collected within 8 hours of biotin intake may require additional information for diagnosis.[facility] [address] [place] [address] Performed By: #### C BC, PTT, TROPI, GLYHGB ####[facility] [place] [address] Troponin T.cardiac mass conc ug/L Normal <0.03 [facility] Comment on above: Result Comment: Trop onin T results cannot be compared to Troponin-I results. Performed By: #### C BC, PTT, TROPI, GLYHGB ####[facility] [address]urn[address] [place] [address] Vital Signs Date Time Vital Sign Value Performing Clinician Hilda marie 2023 06:08-0500 SaO2% (BldA) [Mass fraction] 99 % Nadia Fitzpatrick MD Work Phone: [facility] 2023 05:49-0500 Body temperature 100.09 [degF] Nadia Fitzpatrick MD Work Phone: [facility] [employer] [facility] 2023 05:49-0500 Diastolic blood pressure 52 mm[Hg] Nadia Fitzpatrick MD Work Phone: [facility] 2023 05:49-0500 Heart rate 89 /min Nadia Fitzpatrick MD Work Phone: [facility] 2023 05:49-0500 Respiratory rate 18 /min Nadia Fitzpatrick MD Work Phone: [facility] 2023 05:49-0500 Systolic blood pressure 151 mm[Hg] Nadia Fitzpatrick MD Work Phone: [facility] 09-18-2023 13:40-0500 Diastolic blood pressure 68 mm[Hg] Shaheen Chappell MD Work Phone: [facility] 09-18-2023 13:40-0500 Heart rate 68 /min Shaheen Chappell MD Work Phone: [facility] 09-18-2023 13:40-0500 SaO2% (BldA) [Mass fraction] 97 % Shaheen Chappell MD Work Phone: [employer] [facility] 09-18-2023 13:40-0500 Systolic blood pressure 101 mm[Hg] Shaheen Chappell MD Work Phone: [employer] [facility] 09-18-2023 13:10-0500 Respiratory rate 16 /min Shaheen Chappell MD Work Phone: [facility] 09-18-2023 13:00-0500 Body temperature 97 [degF] Shaheen Chappell MD Work Phone: [facility] 09-18-2023 08:35-0500 Body height 167.6 cm Shaheen Chappell MD Work Phone: [facility] 09-18-2023 08:35-0500 Body mass index (BMI) [Ratio] 27.44 kg/m2 Shaheen Chappell MD Work Phone: [facility] 09-18-2023 08:35-0500 Body weight 77.11 kg Shaheen Chappell MD Work Phone: [facility] 08-14-2023 14:38-0500 Body height 167.6 cm Nikhil Mohr MD Work Phone: [facility] 08-14-2023 14:38-0500 Body mass index (BMI) [Ratio] 26.87 kg/m2 Nikhil Mohr MD Work Phone: [facility] 08-14-2023 14:38-0500 Body weight 75.52 kg Nikhil Mohr MD Work Phone: [facility] 08-14-2023 14:38-0500 Diastolic blood pressure 69 mm[Hg] Nikhil Mohr MD Work Phone: [facility] 08-14-2023 14:38-0500 Heart rate 72 /min Nikhil Mohr MD Work Phone: [facility] 08-14-2023 14:38-0500 SaO2% (BldA) [Mass fraction] 98 % Nikhil Mohr MD Work Phone: [facility] 08-14-2023 14:38-0500 Systolic blood pressure 102 mm[Hg] Nikhil Mohr MD Work Phone: [facility] 07-16-2023 13:41-0400 Body height 167.6 cm Jennie Hernandez MD Work Phone: [facility] 07-16-2023 13:41-0400 Body mass index (BMI) [Ratio] 27.11 kg/m2 Jennie Hernandez MD Work Phone: [facility] 07-16-2023 13:41-0400 Body weight 76.2 kg Jennie Hernandez MD Work Phone: 3(725)529-610313 [place] [address] 07-04-2023 09:34-0400 Body height 167.6 cm Jennie Hernandez MD Work Phone: 2(740)401-033213 [place] [address] 07-04-2023 09:34-0400 Body mass index (BMI) [Ratio] 27.12 kg/m2 Jennie Hernandez MD Work Phone: 6(989)980-815613 [place] [address] 07-04-2023 09:34-0400 Body weight 76.2 kg Jennie Hernandez MD Work Phone: 0(119)233-851087 [place] [address] 06-10-2023 10:18-0400 Body height 167.6 cm Jennie Hernandez MD Work Phone: 1(748)546-853787 [place] [address] 06-10-2023 10:18-0400 Body mass index (BMI) [Ratio] 27.12 kg/m2 Jennie Hernandez MD Work Phone: 5(549)027-012787 [place] [address] 06-10-2023 10:18-0400 Body weight 76.2 kg Jennie Hernandez MD Work Phone: 4(422)126-867416 [address] 05-19-2023 09:07-0400 Body height 167.6 cm Jennie Hernandez MD Work Phone: 3(325)993-431987 [place] [address] 05-19-2023 09:07-0400 Body mass index (BMI) [Ratio] 27.12 kg/m2 Jennie Hernandez MD Work Phone: 4(974)984-375113 [place] [address] 05-19-2023 09:07-0400 Body weight 76.2 kg Jennie Hernandez MD Work Phone: 6(401)278-740213 [place] [address] 04-18-2023 12:33-0400 Body height 167.6 cm Jennei Hernandez MD Work Phone: [facility] 04-18-2023 12:33-0400 Body mass index (BMI) [Ratio] 26.63 kg/m2 Jennie Hernandez MD Work Phone: [facility] 04-18-2023 12:33-0400 Body weight 74.84 kg Jennie Hernandez MD Work Phone: [facility] 02-25-2023 08:48-0400 Body height 167.6 cm Jennie Hernandez MD Work Phone: [facility] 02-25-2023 08:48-0400 Body mass index (BMI) [Ratio] 26.63 kg/m2 Jennie Hernandez MD Work Phone: [facility] 02-25-2023 08:48-0400 Body weight 74.84 kg Jennie Hernandez MD Work Phone: [facility] 12-31-2022 13:46-0400 Body temperature 97.3 [degF] Rosa Garg DO Work Phone: [facility] [employer] 12-31-2022 13:46-0400 Diastolic blood pressure 71 mm[Hg] Rosa Garg DO Work Phone: [facility] [employer] 12-31-2022 13:46-0400 Heart rate 72 /min Rosa Garg DO Work Phone: [facility] [employer] 12-31-2022 13:46-0400 Respiratory rate 16 /min Rosa Garg DO Work Phone: [facility] [employer] 12-31-2022 13:46-0400 SaO2% (BldA) [Mass fraction] 92 % Rosa Garg DO Work Phone: [facility] 12-31-2022 13:46-0400 Systolic blood pressure 102 mm[Hg] Rosa Garg DO Work Phone: [facility] [employer] 12-31-2022 02:40-0400 Body mass index (BMI) [Ratio] 25.34 kg/m2 Rosa Garg DO Work Phone: [facility] 12-31-2022 02:40-0400 Body weight 71.2 kg Rosa Garg DO Work Phone: [facility] 12-30-2022 12:46-0400 Body height 167.6 cm Rosa Garg DO Work Phone: [facility] 05-31-2022 14:26-0400 Blood Pressure Location Julian DIAZ [facility] [place] 05-31-2022 14:26-0400 Diastolic blood pressure 60 mm[Hg] Julian HOWELLL [facility] [place] 05-31-2022 14:26-0400 Heart rate 66 /min Julian HOWELLL [facility] [place] 05-31-2022 14:26-0400 Respiratory rate 16 /min Julian HOWELLL [facility] [place] 05-31-2022 14:26-0400 Systolic blood pressure 108 mm[Hg] Julian HOWELLL [facility] [place] 03-09-2021 12:45-0400 Respiratory rate 16 /min Julian Dougherty MD [employer] Work Phone: 03-09-2021 10:28-0400 Body height 167.6 cm Julian Dougherty MD [employer] Phone: 03-09-2021 10:28-0400 Body mass index (BMI) [Ratio] 25.5 kg/m2 Julian Dougherty MD [employer] Work Phone: 03-09-2021 10:28-0400 Body temperature 98.49 [degF] Julian Dougherty MD [employer] Phone: 03-09-2021 10:28-0400 Body weight 71.67 kg Julian Dougherty MD [employer] Phone: 03-09-2021 10:28-0400 Heart rate 79 /min Julian Dougherty MD [employer] Work Phone: 03-09-2021 10:28-0400 SaO2% (BldA) [Mass fraction] 97 % Julian Dougherty MD [facility] Work Phone: 07-18-2020 09:15-0400 Pulse Oximetry 97 % [facility] [place] 07-18-2020 08:30-0400 BP Diastolic 96 mm[Hg] [facility] [place] 07-18-2020 08:30-0400 BP Systolic 135 mm[Hg] Sebastianmaranda [facility] [place] 07-18-2020 08:18-0400 Body Temperature 98.01 [degF] Sebastian [facility] 07-18-2020 08:18-0400 Pulse (Heart Rate) 84 /min [facility] 07-18-2020 08:18-0400 Respiratory Rate 16 /min [facility], [place] 09-12-2019 02:36-0500 BP Diastolic 95 mm[Hg] [facility] [place] 09-12-2019 02:36-0500 BP Systolic 138 mm[Hg] [facility] [place] 09-12-2019 01:27-0500 Body Temperature 97.3 [degF] [facility] 09-12-2019 01:27-0500 Pulse (Heart Rate) 86 /min [facility] 09-12-2019 01:27-0500 Pulse Oximetry 97 % [facility] [place] 09-12-2019 01:27-0500 Respiratory Rate 18 /min [facility], [place] 06-14-2019 12:44-0400 BP Diastolic 89 mm[Hg] [facility] [place] 06-14-2019 12:44-0400 BP Systolic 158 mm[Hg] [facility] , [place] 06-14-2019 12:44-0400 Pulse (Heart Rate) 68 /min [facility], [place] 06-14-2019 12:44-0400 Pulse Oximetry 95 % Pablo Portillo [facility] , [place] 06-14-2019 12:44-0400 Respiratory Rate 12 /min Pablo Dewitt [facility], [place] 06-14-2019 10:15-0400 BMI (Body Mass Index) 24.53 kg/m2 Pablo Portillo [facility], [place] 06-14-2019 10:15-0400 Body Temperature 98.01 [degF] Pablo Dewitt [facility], [place] 06-14-2019 10:15-0400 Body weight 68.95 kg Pablo Portillo [facility] , [place] Encounters Encounter Date Encounter Type Care Provider Facility Start: 2023 End: 2023 Emergency department patient visit [facility] Start: 2023 End: 2023 Emergency department patient visit Nadia Fitzpatrick MD Work Phone: [facility] Comment on above: Viral illness (Prima ry Dx) Start: 09-18-2023 End: 09-18-2023 ambulatory [facility] Start: 09-18-2023 End: 09-18-2023 Subsequent hospital visit by physician Shaheen Chappell MD Work Phone: [facility] Comment on above: Sacroiliitis Start: 09-09-2023 [facility] Start: 09-09-2023 Encounter for other preprocedural examination [facility] Start: 08-27-2023 [facility] Start: 08-14-2023 End: 08-14-2023 Office outpatient new 45 minutes Nikhil Mohr MD Work Phone: [facility] Neurology Comment on above: 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 Start: 08-13-2023 End: 08-13-2023 Encounter for other preprocedural examination [facility] Start: 07-16-[address] [facility] Start: 07-16-2023 End: 07-16-2023 Subsequent hospital visit by physician Jennie Hernandez MD Work Phone: [facility] Procedure Images Comment on above: Arrived Start: 07-16-2023 End: 07-16-2023 Patient encounter procedure Jennie Hernandez MD Work Phone: [facility] Comment on above: 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); Pain of both sacroiliac joints Start: 07-04-2023 ambulatory JENNIE HERNANDEZ [facility] Start: 07-04-2023 End: 07-04-2023 Office outpatient visit 15 minutes Jennie Hernandez MD Work Phone: [facility] Comment on above: 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); Pain of both sacroiliac joints; Polyneuropathy Start: 06-10-2023 [facility] Start: 06-10-2023 End: 06-10-2023 Patient encounter procedure Jennie Hernandez MD Work Phone: [facility] Comment on above: Osteoarthritis of ri ght sacroiliac joint (Primary Dx); Pain of right sacroiliac joint; Polyneuropathy; Lower extremity numbness; Osteoarthritis of left sacroiliac joint; Pain of left sacroiliac joint; Lumbar spondylosis Start: 05-19-2023 ambulatory [facility] Start: 05-19-2023 End: 05-19-2023 Office outpatient visit 15 minutes Jennie Hernandez MD Work Phone: [facility] Comment on above: Osteoarthritis of le ft sacroiliac joint (Primary Dx); Pain of left sacroiliac joint; Lumbar spondylosis Start: 04-18-[address] [facility] Start: 04-18-2023 End: 04-18-2023 Patient encounter procedure Jennie Hernandez MD Work Phone: [facility] Comment on above: Osteoarthritis of le ft sacroiliac joint (Primary Dx) Start: 04-18-2023 End: 04-18-2023 Subsequent hospital visit by physician Jennie Hernandez MD Work Phone: [facility] Comment on above: Arrived Start: 04-15-2023 ambulatory JENNIE HERNANDEZ [facility] Start: 02-25-2023 ambulatory JENNIE HERNANDEZ [facility] Start: 02-25-2023 End: 02-25-2023 Office outpatient new 30 minutes Jennie Hernandez MD Work Phone: [facility] Comment on above: Osteoarthritis of le ft sacroiliac joint (Primary Dx); Lumbar spondylosis; Lower extremity numbness Start: 01-13-[address] ROMARIO MAN [facility] ity:H1 Start: 01-08-2023 End: 01-09-[address] ROMARIO MAN Facility:[facility]1 Start: 12-30-2022 End: 12-31-2022 Evaluation and management of inpatient ROMARIO MAN [facility] Start: 12-30-2022 End: 12-31-2022 Evaluation and management of inpatient Rosa Garg DO Work Phone: [facility]G Comment on above: Chest pain, unspecif ied type (Primary Dx) Start: 12-18-2022 End: 12-19-[address] PEDRO PABLO CHAMBERS Facility:[facility] Start: 11-14-2022 End: 11-15-2022 ambulatory JULIANE MASSEY . Facility:[facility] Start: 11-06-2022 End: 11-07-2022 ambulatory JULIANE MASSEY . Facility:[facility] Start: 10-16-2022 End: 10-17-2022 ambulatory JULIANE MASSEY . Facility:[facility] Start: 09-24-2022 End: 09-24-[address] NELSON IBRAHIM . Facility:[facility] Start: 09-14-2022 Encounter for genera l adult medical examination without abnormal findings DR ROMARIO MAN [facility] Start: 09-11-2022 End: 09-12-[address] ROMARIO MAN Facility:[facility]1 Start: 09-11-2022 End: 09-12-2022 Encounter for general adult medical examination without abnormal findings DR ROMARIO MAN Facility:[facility] Start: 08-22-2022 End: 08-22-[address] NELSON IBRAHIM . Facility:[facility] Start: 07-10-2022 End: 07-11-2022 ambulatory Julian DIAZ Facility:[facility] Start: 07-10-2022 End: 07-10-2022 Patient encounter procedure Julian HOWELLL [facility] [place] Start: 06-26-2022 End: 06-27-2022 ambulatory Julian DIAZ Facility:CD:[id number] Start: 06-24-2022 Encounter for preprocedural laboratory examination DR JULIAN DIAZ . [facility] [facility] Start: 06-22-2022 End: 06-23-[address] JULIAN DIAZ . Facility:[facility] Start: 06-22-2022 End: 06-23-2022 Encounter for preprocedural laboratory examination DR JULIAN DIAZ . Facility:[facility] Start: 05-31-2022 End: 06-01-2022 ambulatory ROMARIO MAN PROVIDER Facility:[facility] Start: 05-31-2022 End: 05-31-2022 Patient encounter procedure Julian DIAZ General Surgery Nill/Said Yessy Start: 05-30-2022 End: 05-31-[address] NELSON IBRAHIM . Facility:[facility] Start: 05-15-2022 ambulatory Julian DIAZ Facility :[facility] Start: 04-30-2022 End: 04-30-[address] NELSON IBRAHIM . Facility:[facility] Start: 04-23-2022 End: 04-23-[address] NELSON IBRAHIM . Facility:[facility] Start: 04-03-2022 End: 04-04-2022 ambulatory JULIANE MASSEY . Facility:[facility] Start: 03-25-2022 End: 03-25-2022 Subsequent hospital visit by physician Romario Man MD Work Phone: [facility] Laboratory Comment on above: Chronic fatigue Start: 03-12-2022 End: 03-13-[address] ROMARIO MAN Facility:[facility] Start: 03-12-2022 End: 03-12-[address] ROMARIO MAN Facility:[facility] Start: 02-21-2022 End: 02-22-[address] NELSON Acevedo Facility:[facility] Start: 02-05-2022 End: 02-05-[address] ROMARIO MAN Facility:[facility] Start: 03-09-2021 End: 03-09-2021 Emergency department patient visit Julian Dougherty MD [facility] ED Comment on above: Acute gout of right wrist, unspecified cause (Primary Dx) Start: 08-17-2020 End: 08-17-2020 Subsequent hospital visit by physician [facility] Cardiology Stress Room [facility] Stress Lab Comment on above: Arrived Start: 08-16-2020 End: 08-18-2020 Subsequent hospital visit by physician [facility] Vascular Imaging Room [facility] Vascular Lab Comment on above: Other specified lisette pheral vascular diseases (HCC) Start: 08-16-2020 End: 08-16-2020 Subsequent hospital visit by physician [facility] Cardiology Stress Room [facility] Stress Lab Comment on above: Arrived Start: 07-18-2020 End: 07-18-2020 Emergency department patient visit Sebastian Christianwayne Work Phone: [facility] ED Comment on above: Abdominal pain, epig astric (Primary Dx) Start: 09-12-2019 End: 09-12-2019 Emergency department patient visit Justice Shaver Work Phone: [facility] ED Comment on above: Trapezius muscle spa sm (Primary Dx) Start: 06-14-2019 End: 06-14-2019 Emergency department patient visit Pablo Portillo Work Phone: [facility] ED Comment on above: Chronic pain of both shoulders (Primary Dx); Neck pain, chronic; Nonspecific chest pain Start: 01-29-2018 End: 01-30-2018 Ambulatory DEFAULT PHYSICIAN Facility:[facility] Start: 01-20-2018 End: 01-21-2018 Ambulatory DEFAULT PHYSICIAN Facility:[facility] Start: 01-10-2018 End: 01-13-2018 Evaluation and management of inpatient SOREN MOHR [facility] Procedures Date Procedure Procedure Detail Performing Clinician Start: 2023 COVID-19, RAPID Nadia Fitzpatrick MD Work Phone: Start: 2023 Iaadiadoo influenza Nadia Fitzpatrick MD Work Phone: Start: 07-16-2023 US Unspecified body region Jennie Hernandez MD Work Phone: Start: 07-16-2023 Arthrocentesis aspir&/inj major jt/bursa w/us Jennie Hernandez MD Work Phone: Start: 06-10-2023 US Unspecified body region Jennie Hernandez MD Work Phone: Start: 06-10-2023 Arthrocentesis aspir&/inj major jt/bursa w/us Jose Henriquez ATC Start: 04-18-2023 Arthrocentesis aspir&/inj major jt/bursa w/us Jennie Hernandez MD Work Phone: Start: 04-18-2023 US Unspecified body region Jennie Hernandez MD Work Phone: Start: 12-31-2022 STRESS TEST, MARLEN Mohr MD Work Phone: Start: 12-31-2022 Rhythm ecg 1-3 leads w/interpretation & report Unknown Provider Result Start: 12-31-2022 Assay of troponin quantitative Cece Villalobos ELECTRON MICROPROBE OPERATOR - [employer] Work Phone: Start: 12-31-2022 BASIC METABOLIC PANEL W/ REFLEX TO MG FOR LOW K Cece Villalobos ELECTRON MICROPROBE OPERATOR - [facility] [facility] Work Phone: Start: 12-31-2022 Lipid panel Cece Villalobos ELECTRON MICROPROBE OPERATOR - [facility] [facility] Work Phone: Start: 12-31-2022 End: 12-31-2022 Ecg routine ecg w/least 12 lds w/i&r Cece Villalobos APRN - [facility] [facility] Work Phone: Start: 12-30-2022 Echo tthrc r-t 2d w/wom-mode compl spec&colr d Cece Villalobos ELECTRON MICROPROBE OPERATOR - [employer] Work Phone: Start: 12-30-2022 RESPIRATORY PANEL, MOLECULAR, WITH COVID-19 Cece Villalobos ELECTRON MICROPROBE OPERATOR - [facility] Work Phone: Start: 12-30-2022 Rhythm ecg 1-3 leads w/interpretation & report Unknown Provider Result Start: 12-30-2022 COVID-19, RAPID Lisa Harris MD Work Phone: Start: 12-30-2022 Ct thorax w/contrast material Lisa Negrete dd, MD Work Phone: Start: 12-30-2022 Assay of troponin quantitative Lisa najera MD Work Phone: Start: 12-30-2022 Radiologic exam chest single view Sergei Garg DO Work Phone: Start: 12-30-2022 Comprehensive metabolic panel Rosa Garg DO Work Phone: Start: 12-30-2022 End: 12-31-2022 Ecg routine ecg w/least 12 lds i&r only Rosa Garg DO Work Phone: Start: 09-11-2022 PSA screening JULIANE MASSEY . Comment on above: Performed By: #### HGBHCT #### [facility] [address] [place] [address] Dr. Raimundo Estrada Start: 06-26-2022 Colonoscopy Julian DIAZ Start: 06-26-2022 Esophagogastroduodenoscopy Julian DIAZ Start: 03-25-2022 Sedimentation rate rbc automated [place] lyubov Cowan MD Work Phone: Start: 03-09-2021 Assay of blood/uric acid Julian Dougherty MD Start: 03-09-2021 Radex wrist complete minimum 3 views Julian Dougherty MD Start: 08-16-2020 Duplex scan extracranial art compl bi study Lisa Wyatt Work Phone: Start: 07-18-2020 Assay of troponin quantitative Sebastian C rismaru Work Phone: Start: 07-18-2020 Radiologic exam chest single view Cipria n Crismaru Work Phone: Start: 07-18-2020 Ct abdomen & pelvis w/o contrast material Sebasitan Crismaru Work Phone: Start: 07-18-2020 Ecg routine ecg w/least 12 lds w/i&r Sebastian Cathiemaru Work Phone: Start: 07-18-2020 EKG REPORT Hpf Scanning Start: 07-18-2020 Assay of lipase Sebastian Crismaru Work Phone: Start: 07-18-2020 Assay of troponin quantitative Sebastian C rismaru Work Phone: Start: 07-18-2020 Blood count complete auto&auto difrntl wbc Sebastian Crismaru Work Phone: Start: 07-18-2020 Comprehensive metabolic panel Sebastian Cr ismaru Work Phone: Start: 07-18-2020 Urinalysis microscopic only Sebastian Cathie ocampou Work Phone: Start: 07-18-2020 Urnls dip stick/tablet rgnt auto w/o microscopy Sebastian Crismaru Work Phone: Start: 06-14-2019 Assay of troponin quantitative Pablo Wee se Work Phone: Start: 06-14-2019 Radiologic exam chest single view Pablo Portillo Work Phone: Start: 06-14-2019 Assay of lipase Pablo Lindsey Work Phone: Start: 06-14-2019 Assay of troponin quantitative Pablo Wee se Work Phone: Start: 06-14-2019 Blood count complete auto&auto difrntl wbc Pablo Lindsey Work Phone: Start: 06-14-2019 Fibrin dgradj products d-dimer quantitative Pablo Portillo Work Phone: Start: 06-14-2019 Ecg routine ecg w/least 12 lds w/i&r Pablo Portillo Work Phone: Start: 01-13-2018 DISCHARGE PATIENT SHOWKAT AHMAD Start: 01-13-2018 INITIATE OXYGEN THERAPY PROTOCOL SHOWKAT AHMAD Start: 01-13-2018 BASIC METABOLIC PANEL SHOWKAT AHMAD Start: 01-13-2018 MAGNESIUM SHOWKAT AHMAD Start: 01-13-2018 INTAKE AND OUTPUT SHOWKAT AHMAD Start: 01-13-2018 BASIC METABOLIC PANEL SHOWKAT AHMAD Start: 01-13-2018 MAGNESIUM SHOWKAT AHMAD Start: 01-12-2018 BEDREST SHOWKAT AHMAD Start: 01-12-2018 DIET CARDIAC SHOWKAT AHMAD Start: 01-12-2018 FULL CODE SHOWKAT AHMAD Start: 01-12-2018 INITIATE OXYGEN THERAPY PROTOCOL SHOWKAT AHMAD Start: 01-12-2018 NURSING COMMUNICATION SHOWKAT AHMAD Start: 01-12-2018 PUNCTURE SITE CARE SHOWKAT AHMAD Start: 01-12-2018 TELEMETRY MONITORING SHOWKAT AHMAD Start: 01-12-2018 VITAL SIGNS SHOWKAT AHMAD Start: 01-12-2018 DIAGNOSTIC CARDIAC FLIGHT TEST SHOP MECHANIC PROCEDURE SHOWKAT AHMAD Start: 01-12-2018 APTT SHOWKAT AHMAD Start: 01-12-2018 INITIATE OXYGEN THERAPY PROTOCOL SHOWKAT AHMAD Start: 01-12-2018 APTT SHOWKAT AHMAD Start: 01-12-2018 PLATELET COUNT SHOWKAT AHMAD Start: 01-12-2018 INTAKE AND OUTPUT SHOWKAT AHMAD Start: 01-12-2018 APTT SHOWKAT AHMAD Start: 01-11-2018 APTT SHOWKAT AHMAD Start: 01-11-2018 IP CONSULT TO CARDIOLOGY SHOWKAT AHMAD Start: 01-11-2018 CBC SHOWKAT AHMAD Start: 01-11-2018 COMPREHENSIVE METABOLIC PANEL SHOWKAT AH MAD Start: 01-11-2018 Lipid panel SHOWKAT AHMAD Start: 01-11-2018 MAGNESIUM SHOWKAT AHMAD Start: 01-11-2018 PREVIOUS SPECIMEN SHOWKAT AHMAD Start: 01-11-2018 APTT SHOWKAT AHMAD Start: 01-11-2018 PREVIOUS SPECIMEN SHOWKAT AHMAD Start: 01-11-2018 INITIATE OXYGEN THERAPY PROTOCOL SHOWKAT AHMAD Start: 01-11-2018 APTT SHOWKAT AHMAD Start: 01-11-2018 DAILY WEIGHTS SHOWKAT AHMAD Start: 01-11-2018 INTAKE AND OUTPUT SHOWKAT AHMAD Start: 01-11-2018 TRANSFER PATIENT SHOWKAT AHMAD Start: 01-11-2018 TROPONIN SHOWKAT AHMAD Start: 01-10-2018 EKG 12-LEAD SHOWKAT AHMAD Start: 01-10-2018 EKG REPORT SHOWKAT AHMAD Start: 01-10-2018 APTT SHOWKAT AHMAD Start: 01-10-2018 CBC SHOWKAT AHMAD Start: 01-10-2018 HEMOGLOBIN A1C SHOWKAT AHMAD Start: 01-10-2018 TROPONIN SHOWKAT AHMAD Start: 01-10-2018 EKG 12-LEAD SHOWKAT AHMAD Start: 01-10-2018 EKG REPORT SHOWKAT AHMAD Start: 01-10-2018 INITIATE OXYGEN THERAPY PROTOCOL SHOWKAT AHMAD Start: 01-10-2018 INTAKE AND OUTPUT SHOWKAT AHMAD Start: 01-10-2018 NOTIFY PHYSICIAN (SPECIFY) SHOWKAT AHMAD Start: 01-10-2018 PLACE INTERMITTENT PNEUMATIC COMPRESSION DEVICE SHOWKAT AHMAD Start: 01-10-2018 PULSE OXIMETRY SPOT CHECK SHOWKAT AHMAD Start: 01-10-2018 TELEMETRY MONITORING SHOWKAT AHMAD Start: 01-10-2018 VITAL SIGNS SHOWKAT AHMAD Start: 01-10-2018 PATIENT STATUS (DIRECT) SHOWKAT AHMAD Start: 10-06-2017 Cardiac catheterization Julian DIAZ Start: 10-06-2005 Cardiac catheterization Julian DIAZ Coronary artery sten t (physical object) Julian DIAZ Extraction of cataract Robi sherif DIAZ History of operative procedure on lumbar spinal structure Julian DIAZ Plan of Treatment Date Care Activity Detail Author Start: 07-01-2031 DTaP/Tdap/Td vaccine (3 - Td or Tdap) DTaP/Tdap/Td vaccine (3 - Td or Tdap) [facility] Start: 12-31-2025 Diabetes screen Diabetes screen [facility] Start: 2025 Pneumococcal 0-64 years Vaccine (3 - PPSV23 if available, else PCV20) Pneumococcal 0-64 years Vaccine (3 - PPSV23 if available, else PCV20) [facility] Start: 2025 Pneumococcal 0-64 years Vaccine (3 - PPSV23 or PCV20) Pneumococcal 0-64 years Vaccine (3 - PPSV23 or PCV20) [facility] Start: 01-01-2024 Lipid panel Lipids [facility] Start: 09-18-2023 End: 09-18-2023 Arthrodesis sacroiliac joint percutaneous ARTHRODESIS SACROILIAC JOINT MINIMALLY INVASIVE W/ TRANSFIXING DEVICE Sacroiliitis 09/18/2023 10:52 AM EST [facility] Start: 09-18-2023 End: 09-18-2023 Fluoroscopy up to 1 hour physician/qhp time FLUOROSCOPY IN OR Sacroiliitis 09/18/2023 10:52 AM EST [facility] Start: 08-14-2023 End: 08-14-2023 Patient encounter procedure 08/14/2023 2:45 PM EST Office Visit [facility] Neurology [address] [place] [address] Nikhil Mohr MD [address] [place] [address] [facility] Start: 08-14-2023 End: 08-14-2024 B12/folate level B12 & FOLATE Lab Routine Hereditary and idiopathic peripheral neuropathy Expected: 08/14/2023, Expires: 08/14/2024 [facility] Comment on above: Expected: 08/14/2023, Expires: Start: 08-14-2023 End: 08-14-2024 Hemoglobin A1c/Hemoglobin.total in Blood HEMOGLOBIN A1C Lab Routine Hereditary and idiopathic peripheral neuropathy Expected: 08/14/2023, Expires: 08/14/2024 [id number] Comment on above: Expected: 08/14/2023, Expires: 4 Start: 08-14-2023 End: 08-14-2024 MILENA AND PE, SERUM MILENA AND PE, SERUM Lab Routine Hereditary and idiopathic peripheral neuropathy Expected: 08/14/2023, Expires: 08/14/2024 [facility] Comment on above: Expected: 08/14/2023, Expires: Start: 08-14-2023 End: 08-14-2024 MR Cervical spine WO contrast MRI SPINE CERVICAL WITHOUT CONTRAST Imaging Routine Hyperreflexia Expected: 08/14/2023, Expires: 08/14/2024 [facility] Comment on above: Expected: 08/14/2023, Expires: Start: 08-14-2023 End: 08-14-2024 MR Thoracic spine WO contrast MRI SPINE THORACIC WITHOUT CONTRAST Imaging Routine Hyperreflexia Expected: 08/14/2023, Expires: 08/14/2024 [facility] Comment on above: Expected: 08/14/2023, Expires: 4 Start: 08-14-2023 End: 08-14-2024 VITAMIN B6 VITAMIN B6 Lab Routine Hereditary and idiopathic peripheral neuropathy Expected: 08/14/2023, Expires: 08/14/2024 [facility] Comment on above: Expected: 08/14/2023, Expires: Start: 07-04-2023 End: 07-04-2023 Patient encounter procedure 07/04/2023 9:00 AM EDT Office Visit [facility] [address] [place] [address] [place] [address] Jennie Hernandez MD [address] [place] [address] [place] [address] [facility] Start: 06-10-2023 End: 06-10-2023 Patient encounter procedure 06/10/2023 10:00 AM EDT Office Visit [facility] [address] [place] [address] [place] [address] Jennie Hernandez MD [address] [place] [address] [place] [address] [facility] Start: 06-06-2023 COVID-19 Vaccine ( season) COVID-19 Vaccine ( season) [facility] Start: 06-06-2023 Influenza vaccination [facility] Start: 05-19-2023 End: 05-19-2023 Patient encounter procedure 05/19/2023 9:00 AM EDT Office Visit [facility] [address] [facility] [place] [address] Jennie Hernandez MD [address] [place], [place] [address], [place] [address] [facility] Start: 05-06-2023 Influenza vaccination Flu vaccine (#1) [facility] Start: 04-18-2023 End: 04-18-2023 Patient encounter procedure 04/18/2023 12:40 PM EDT Office Visit [facility] [address] [place] [address] [place] [address] Jennie Hernandez MD [address] [facility] [place] [address] [facility] Start: 04-15-2023 End: 04-15-2023 Patient encounter procedure 04/15/2023 10:15 AM EDT Office Visit [address] [address] Jw Cee MD [address] [place] [address] [facility] Start: 03-25-2023 Hemoglobin A1c measurement A1C test (Diabetic or Prediabetic) [facility] Start: 02-25-2023 End: 02-26-2024 Electromyography EMG & NERVE CONDUCTION Neurology Routine Lower extremity numbness Expected: 02/25/2023, Expires: 02/26/2024 [facility] Comment on above: Expected: 02/25/2023, Expires: Start: 01-11-2023 Lipid screen Lipid screen [place], [place] Start: 04-11-2022 End: 04-11-2022 Patient encounter procedure 04/11/2022 Office Visit Neurology Con Cowan MD [address] [place] [id number] [facility] Start: 06-06-2021 Influenza vaccination Flu vaccine (Season Ended) [facility] Work Phone: Start: 01-10-2021 Diabetes screen Diabetes screen [facility] Start: 2020 Respiratory Syncytial Virus (RSV) or age 60 yrs+ (1 - 1-dose 60+ series) Respiratory Syncytial Virus (RSV) or age 60 yrs+ (1 - 1-dose 60+ series) [facility] Start: 08-17-2020 End: 08-17-2020 Appointment 08/17/2020 Appointment [facility] Start: 06-06-2020 Influenza vaccination Flu vaccine (#1) [place], [place] Start: 06-06-2019 Influenza vaccination Flu vaccine (#1) [place] Start: 01-11-2019 Lipid panel [facility] Start: 01-11-2019 Lipid screen Lipid screen [place], [place] Start: 08-13-2018 Prostate specific antigen measurement Prostate Specific Antigen (PSA) Screening or Monitoring [facility] Start: 2010 Colon cancer screen colonoscopy Colon cancer screen colonoscopy [place], [place] Start: 2010 Prostate specific antigen measurement PROSTATE CANCER SCREENING DISCUSSION [facility] Start: 2010 Screening for malignant neoplasm of colon Colon cancer screen colonoscopy [place], [place] Start: 2010 Shingles Vaccine (1 of 2) Shingles Vaccine (1 of 2) [place] Start: 2010 Zoster vaccine hzv live for subcutaneous use ZOSTER (SHINGLES) VACCINE (1 of 2) [facility] Start: 2005 Screening for malignant neoplasm of colon [facility] Start: 2000 Lipid panel LIPID SCREENING [facility] Start: 1979 DTaP/Tdap/Td vaccine (1 - Tdap) DTaP/Tdap/Td vaccine (1 - Tdap) [place] Start: 1979 Third diphtheria, tetanus and acellular pertussis (DTaP) vaccination TDAP (ADULT) [facility] Start: 1978 Hepatitis C screening Hepatitis C screen [facility] Start: 1975 HIV screen HIV screen [place], [place] Start: 1975 HIV screening [facility] Start: 1972 COVID-19 Vaccine (1) COVID-19 Vaccine (1) [facility] Phone: Start: 1972 Depression Screen Depression Screen [facility] Start: 1971 DTaP/Tdap/Td vaccine (1 - Tdap) DTaP/Tdap/Td vaccine (1 - Tdap) [place] Start: 1966 Pneumococcal 0-64 years Vaccine (1 of 1 - PPSV23) Pneumococcal 0-64 years Vaccine (1 of 1 - PPSV23) [place] Start: 1966 Pneumococcal 0-64 years Vaccine (1 of 2 - PPSV23) Pneumococcal 0-64 years Vaccine (1 of 2 - PPSV23) [facility] Phone: Start: 04-09-1961 COVID-19 VACCINE (#1) COVID-19 VACCINE (#1) [facility] Start: 1960 Hepatitis C screen Hepatitis C screen [place], [place] Start: 1960 Hepatitis C screening [facility] Start: 1960 Tetanus vaccination TETANUS [facility] End: 01-02-2023 Basic Metabolic Panel w/ Reflex to MG Basic Metabolic Panel w/ Reflex to MG Lab Routine Daily for 3 Days starting 12/31/2022 until 01/02/2023, 1 completed [facility] Work Phone: Comment on above: Daily for 3 Days starting 12/31/2022 unt il 01/02/2023, 1 completed End: 01-02-2023 CBC W Auto Differential panel - Blood CBC with Auto Differential Lab Routine Daily for 3 Days starting 12/31/2022 until 01/02/2023, 1 completed [employer] Phone: Comment on above: Daily for 3 Days starting 12/31/2022 unt il 01/02/2023, 1 completed EKG 12 Lead EKG 12 Lead ECG STAT 06/14/2019 10:26 AM EDT [facility] [place], [place] EKG 12 lead EKG 12 lead ECG Routine As Needed until discontinued starting 12/30/2022 [employer] Phone: Comment on above: As Needed until discontinued starting End: 03-25-2022 Hemoglobin A1c/Hemoglobin.total in Blood [employer] Phone: Comment on above: 1 Occurrences starting 03/25/2022 until 03/25/2022 End: 12-31-2022 Hemoglobin A1c/Hemoglobin.total in Blood Hemoglobin A1C Lab Routine Tomorrow AM for 1 Occurrences starting 12/31/2022 until 12/31/2022 [employer] Phone: Comment on above: Tomorrow AM for 1 Occurrences starting 0 12/31/2022 until 12/31/2022 Hemoglobin A1c/Hemoglobin.total in Blood Hemoglobin A1C Lab Routine 12/31/2022 6:30 AM EDT [employer] Phone: Initiate ED RT Bronc hospasm Protocol Initiate ED RT Bronchospasm Protocol Respiratory Care Routine Daily until discontinued starting 2023 [facility] Comment on above: Daily until discontinued starting 2023 End: 12-30-2022 Intermittent pulse oximetry Pulse Oximetry Spot Check Respiratory Care Routine One Time for 1 Occurrences starting 12/30/2022 until 12/30/2022 [employer] Phone: Comment on above: One Time for 1 Occurrences starting 12/05 until 12/30/2022 End: 03-25-2022 Nuclear Ab [Titer] in Serum by Immunofluorescence [employer] Phone: Comment on above: 1 Occurrences starting 03/25/2022 until 03/25/2022 Oxygen therapy [[facility]] Initiate Oxygen Therapy Protocol Respiratory Care Routine As Needed until discontinued starting 12/30/2022 [employer] Phone: Comment on above: As Needed until discontinued starting End: 2023 Portable XR Chest AP single view [facility] Comment on above: Once for 1 Occurrences starting 10/10/19 until 2023 End: 09-18-2023 RF Unspecified body region Views during surgery [facility] Comment on above: One Time for 1 Occurrences starting 09/05 until 09/18/2023 Stress test, lexiscan Stress kendra t, lexiscan Cardiac Services Routine 12/31/2022 3:03 PM EDT [facility] Work Phone: Vibratory Airway Clearance Vibra tory Airway Clearance Respiratory Care Routine Every 1hr while awake until discontinued starting 12/30/2022 [employer] Phone: Comment on above: Every 1hr while awake until discontinued starting 12/30/2022 End: 03-25-2022 Vitamin B12 & Folate [employer] Phone: Comment on above: 1 Occurrences starting 03/25/2022 until 03/25/2022 XR CHEST PORTABLE XR CHEST HEDY BLE Imaging STAT 06/14/2019 10:43 AM EDT [facility] [place] Payers Date Payer Category Payer Unknown 2023 Unknown [id number] 2022 Unknown [id number] 2022 Unknown [id number] 2021 Unknown [id number] 2019 Private Health Insurance [facility] [id number] 2019-Present [phone] [address] [place] [address] [id number] .[id number] 2019 Private Health Insurance [employer] xxxxxxxxxx 2019-Present [phone] [address] [place] [address] xxxxxxxxxx [id number] .7.3.723829.315 2016 Unknown [id number] 2014 Unknown [id number] 1.2.840.757265.1.13.239.2 .7.3.839766.315 1960 Unknown [id number] 2.16.840.1.849518.3.579.2 .727 1960 Unknown [id number] 2.16.840.1.302419.3.579.2 .727 1960 Unknown [id number] 2.16.840.1.437971.3.579.2 .727 1960 Unknown [id number] 2.16.840.1.781833.3.579.2 .727 1960 Unknown [id number] 2.16.840.1.298599.3.579.2 .593 1960 Unknown [id number] 2.16.840.1.370842.3.579.2 .593 1960 Unknown [id number] 2.16.840.1.176043.3.579.2 .593 1960 Unknown [id number] 2.16.840.1.217184.3.579.2 .593 1960 Unknown [id number] 2.16.840.1.768384.3.579.2 .593 1960 Unknown [id number] 2.16.840.1.394112.3.579.2 .593 1960 Unknown [id number] 2.16.840.1.187641.3.579.2 .593 1960 Unknown [id number] 2.16.840.1.859272.3.579.2 .593 1960 Unknown [id number] 2.16.840.1.411849.3.579.2 .593 1960 Unknown [id number] 2.16.840.1.525920.3.579.2 .593 1960 Unknown [id number] 2.16.840.1.679142.3.579.2 .593 1960 Unknown [id number] 2.16.840.1.411336.3.579.2 .593 1960 Unknown [id number] 2.16.840.1.716498.3.579.2 .593 1960 Unknown [id number] 2.16.840.1.149934.3.579.2 .593 1960 Unknown [id number] 2.16.840.1.670149.3.579.2 .593 1960 Unknown [id number] 2.16.840.1.743710.3.579.2 .593 1960 Unknown [id number] 2.16.840.1.136755.3.579.2 .593 1960 Unknown [id number] 2.16.840.1.275235.3.579.2 .593 1960 Unknown [id number] 2.16.840.1.215424.3.579.2 .593 1960 Unknown [id number] 2.16.840.1.167896.3.579.2 .593 1960 Unknown [id number] 2.16.840.1.857531.3.579.2 .983 1960 Unknown [id number] 2.16.840.1.637136.3.579.2 .983 1960 Unknown [id number] 2.16.840.1.397439.3.579.2 .983 1960 Unknown [id number] 2.16.840.1.266981.3.579.2 .983 1960 Unknown [id number] 2.16.840.1.359743.3.579.2 .983 1960 Unknown [id number] 2.16.840.1.711093.3.579.2 .983 1960 Unknown [id number] 2.16.840.1.731095.3.579.2 .983 1960 Unknown [id number] 2.16.840.1.497396.3.579.2 .983 1960 Unknown [id number] 2.16.840.1.093784.3.579.2 .983 1960 Unknown [id number] 2.16.840.1.558671.3.579.2 .983 1960 Unknown [id number] 2.16.840.1.650125.3.579.2 .983 1960 Unknown [id number] 2.16.840.1.767092.3.579.2 .983 1960 Unknown [id number] 2.16.840.1.038285.3.579.2 .983 1960 Unknown [id number] 2.16.840.1.827553.3.579.2 .983 1960 Unknown [id number] 2.16.840.1.559481.3.579.2 .173 1960 Unknown [id number] 2.16.840.1.794597.3.579.2 .173 1959 Unknown [id number] 1.2.840.234354.1.13.239.2 .7.3.989535.315 1959 Unknown [id number] Social History Date Type Detail Facility Start: 06-14-2019 End: 12-30-2022 Tobacco smoking status NHIS Never smoker [facility] Start: 06-14-2019 End: 12-30-2022 Alcohol intake Yes [place], [place] Start: 06-14-2019 Alcohol Comment not every day [place], [place] Start: 1960 Sex Assigned At Not on file [place] Start: 09-12-2019 End: 12-30-2022 Alcohol intake Current drinker of alcohol (finding) [place] Start: 07-18-2020 End: 12-30-2022 Tobacco use and exposure Never used [place], [place] Start: 03-15-2022 End: 12-30-2022 Exposure to SARS-CoV-2 (event) Not sure [place] Start: 03-09-2021 End: 12-30-2022 Alcohol intake [facility] [employer] Tobacco smoking status Never [facility] Start: 12-30-2022 History SDOH Alcohol Frequency 5 [facility] Work Phone: Start: 12-30-2022 History SDOH Alcohol Std Drinks 2 [facility] Work Phone: Start: 09-09-2023 Alcohol Comment 3-4 BEERS DAILY [facility] How often to you hav e a drink containing alcohol? 4 or more times a week [facility] How many standard dr inks containing alcohol do you have on a typical day? 3 or 4 [facility] How often do you hav e 6 or more drinks on 1 occasion? Daily or almost daily [facility] Medical Equipment Procedure Code Equipment Code Equipment Origin al Text Equipment Identifier Dates Firebird Cherrie Valladaresi on System [id number] Start: 09-18-2023 Goals Date Patient Goal Desired Activity /State Personal health goal Comment on above: Formatting of this n ote might be different from the original. Therapy Problem List: SI fusion pre-op session needed today. Pain/spasm in the right LB areas. Decreased AROM at the low back with pain Difficulty with change of positions and sleeping on the right side. Static standing bothersome for any length of time. Gait/steps usage is effected cody over the right lower extremity Forward flexed hip and low back posture in standing. Limited in house work/leisure/ADL activity. In and out of car reported painful and slowed. So is in out bed. Therapy Goals: Pre-op SI fusion education and training. Short term: Pt will demonstrate independence and understanding with HEP and safety precautions to prepare for surgery. (Met today) Pt will demonstrate competence with gait/step/curb training (as appropriate) and bed mobility to prepare for safety after surgery. 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 Return to normal activity of house work/leisure/ADLs with post op therapy as ordered by surgeon if needed. Functional Status Date Assessment Result Facility 05-31-2022 Functional Status N/A [facility]namurthy Clinical Notes 02-21-2022 to 2023 Discharge InstructionsNursing Notes - Griselda Craig RN - 09/18/2023 2:38 PM ESTNursing Notes - Griselda Craig RN - 09/18/2023 2:38 PM ESTNursing Notes - Venecia Rivera RN - 09/18/2023 2:18 PM EST Note Date & Type Note Facility 2023 Hospital Discharge instructions Nadia Fitzpatrick MD - 2023 6:30 AM EST Drink plenty of water or Gatorade type solution. Avoid drinking alcohol or drinks that have caffeine in it. Take your medication as indicated and prescribed. For pain use acetaminophen (Tylenol) or ibuprofen (Motrin / Advil), unless prescribed medications that have acetaminophen or ibuprofen (or similar medications) in it. You can take over the counter acetaminophen tablets (1 - 2 tablets of the 500-mg strength every 6 hours) or ibuprofen tablets (2 tablets every 4 hours). Take over the counter medications for any nasal congestion / sore throat type symptoms. Mix 1 teaspoon of maalox and 1 teaspoon of liquid benadryl, gargle for 1 minute then swallow. You can also use Cepacol lozenge or Chloraseptic throat spray to help soothe your throat. PLEASE RETURN TO THE EMERGENCY DEPARTMENT IMMEDIATELY for worsening symptoms or if you develop any concerning symptoms such as: high fever not relieved by acetaminophen (Tylenol) and/or ibuprofen (Motrin / Advil), chills, shortness of breath, chest pain, feeling of your heart fluttering or racing, persistent nausea and/or vomiting, vomiting up blood, blood in your stool, loss of consciousness, numbness, weakness or tingling in the arms or legs or change in color of the extremities, changes in mental status, persistent headache, blurry vision loss of bladder / bowel control, unable to follow up with your physician, or other any other care or concern. documented in this encounter [facility] Note #Cardiac risk strati fication -Stress 09/12/23: negative for ischemia -ECHO 09/02/23: preserved LVEF -When I had seen patient in clinic, he had no s/s of heart failure on exam -Patient is low to intermediate non-prohibitive risk for cardiovascular event for an intermediate risk procedure. -Recommend to continue ASA in the lisette-operative period due to his history of coronary stenting. Stress test 09/12/23 -Negative for ischemia -No ischemic EKG changes ECHO 09/02/2023 Global LV systolic function is normal; visually estimated EF 55-60% RV is normal in size and function Normal diastolic function No significant valvular abnormalities [facility] 09-18-2023 Nurse Note Pt provided with discharge instructions. Pt Iv removed and belongings gathered. Pt was wheeled to car by surgery staff and driven home by family. [id number] 09-18-2023 Miscellaneous Notes Pt provided with discharge instructions. Pt Iv removed and belongings gathered. Pt was wheeled to car by surgery staff and driven home by family. OT in with pt at this time Pt ambulating in [place] with PT without difficulty. PT in with pt at this time Discharge instructions provided, pt states understanding, including the sedentary activity as described, denies questions. Dr Chappell in to see pt at this time POST OPERATIVE/PROCEDURE NOTE Noel Alva ([id number]) SURGEON Surgeon(s) and Role: * Shaheen Chappell MD - Primary ANIMAL CHIROPRACTOR Marques ANESTHESIOLOGIST CERTIFIED SURGICAL ASSISTANT: Avinash Adams APRN-CERTIFIED SURGICAL ASSISTANT Student Nurse First Officer: Amanda Murphy SURGICAL STAFF Student Ministries Director: Caryn Tineo RN Registered Nurse Tool Distributor: Angeline Mohan RN Scrub Person: Luiza Calderon PROCEDURE PERFORMED Procedure(s) (LRB): ARTHRODESIS SACROILIAC JOINT MINIMALLY INVASIVE W/ TRANSFIXING DEVICE (Right) FLUOROSCOPY IN OR (Right) PRIMARY CLOSURE Yes ANESTHESIA (type of) General ESTIMATED BLOOD LOSS Minimal DRAINS None BLOOD PRODUCTS None FLUIDS Intake/Output Summary (Last 24 hours) at 09/18/2023 1213 Last data filed at 09/18/2023 1205 Gross per 24 hour Intake 1100 ml Output -- Net 1100 ml PRE OPERATIVE DIAGNOSIS Sacroiliitis [M46.1] POST OPERATIVE DIAGNOSIS Post-Op Diagnosis Codes: * Sacroiliitis [M46.1] FINDINGS No significant abnormalities CONDITION OF PATIENT Stable COMPLICATIONS None GRAFTS AND/OR IMPLANTS See OR Nursing Documentation SPECIMENS No specimen sent * No specimens in log * Shaheen Chappell MD September 18, 2023 12:13 PM documented in this encounter [facility] 09-18-2023 Nurse Note OT in with pt at this time [facility] 09-18-2023 History of Present illness Narrative 09/18/23 1435 Time In/Out Time In 1417 Time Out 1430 Total Visit Time 13 minutes Total Treatment Time (skilled, billable minutes) 13 minutes OT Therapy Completed Yes Initial Evaluation/Screen Completed? yes OT Evaluation and Treatment Time OT Evaluation (Low) Time Entry 13 Subjective Subjective information pt responds improvement in pain from before surgery General Information Patient Safety Communication Prior to Visit Nursing OT Existing Precautions/Restrictions spinal ( stay relatively sedentary for 2 weeks for 2 weeks to avoid bleeding no bending /lifting/twisting with the exception of self care (clarified with Dr Goins that this was allowed), receive brace at first follow up and wear 3 months when OOB except shower) Home Setting Residence House (2 story but stays on first floor) Lives With alone First floor setup bedroom;tub shower Mobility Equipment Available straight cane;2 wheeled walker Previous Level of Function Prior level ADL Overview Independent with all ADLs IADL History IADLs independent (pt reports that dtr lives 5 minutes away and can help during recovery) Primary Language Bangladeshi PRIOR LEVEL AM-PAC Activity Inpatient Short Form Putting on/Taking Off Lower Body Clothing 4 - No Assistance Bathing 4 - No Assistance Toileting 4 - No Assistance Putting on/Taking Off Upper Body Clothing 4 - No Assistance Grooming 4 - No Assistance Eating 4 - No Assistance PRIOR LEVEL AM-PAC Activity Raw Score 24 PRIOR LEVEL AM-PAC Activity Functional Limitation/Modifier 0.00% Prior Functional Impairment in Daily Activity General Pain Documentation (Adult, OB, Peds) Presence of Pain not present: non-verbal indicator of pain/discomfort (nursing addressing) Presence of Pain Score (Auto-calculated) 0 Cognition Overall Cognitive Status WFL Cognition Comments mildly impulsive Vision Screen Visual Impairments Observed? No Speech Speech no gross deficits noted Hearing Hearing no gross deficits noted Sensation Overall Sensation Intact Proprioception Proprioception intact RUE Assessment RUE Assessment WFL LUE Assessment LUE Assessment WFL Supine to Sit Mobility [place] Level: Supine->Sit contact guard assist Bed Features/Set-up: Supine->Sit Flat Skilled Rationale Verbal cues Skilled Intervention/Details: Supine->Sit pt reorted that he knew how to log roll but twisted to get up even with vcs and attempts to physically assist with proper technique Sit to Stand Transfer [place] Level: Sit->Stand contact guard assist Assistive Device: Sit->Stand 2 wheeled walker Skilled Rationale Hand placement;Verbal cues Skilled Intervention/Details: Sit->Stand pt pulling up on the walker with both hands- cues to push off Stand to Sit Transfer [place] Level: Stand->Sit stand-by assist Assistive Device: Stand->Sit 2 wheeled walker Skilled Rationale Verbal cues Skilled Intervention/Details: Stand->Sit pt sat without reaching back for surface, vcs for this Sitting Balance Static Sitting-Level of Assistance Supervision Dynamic Sitting-Level of Assistance Standby Standing Balance Static Standing-Level of Assistance Contact guard Gross Coordination Gross Coordination bilat UE intact Fine Motor Coordination Additional Documentation No ADL Overview ADL Assessment LE Dressing Deficit;Unable to assess ADLs UE Dressing UE Dressing Assistance Independent LE Dressing LE Dressing Assistance Minimal (to CGA) LE Dressing Location edge of bed;standing LE Dressing Deficit Increased time to complete;Don/doff R sock;Don/doff L sock;Thread RLE into pants;Thread RLE into underwear;Don/doff R shoe;Don/doff L shoe LE Dressing Skilled Rationale (Verbal/Tactile/Visual/Demonstrat ion) Setup LE Dressing Intervention/Details assist with R sock Acute AMPAC Acute [facility] Assessments Daily Activity Inpatient Short Form CURRENT AM-PAC Daily Activity Inpatient Short Form Putting on/Taking Off Lower Body Clothing 3 - A Little Assistance Putting on/Taking Off Upper Body Clothing 4 - No Assistance Patient Education/Instruction Patient Instruction/Education this session education on OT, restrictions/precautions as stated above, shower safety (pt reported that if he closes his eyes at baseline, his balance isn't the best- pt has a HH shower sprayer so I suggested he use it for balance/safety), brace use when he gets it Assessment Patient admitted for Elective SI surgery with Dr. Goins Reason for referral OT eval and educate Assessment Ot eval and education completed. Pt demonstrated good understanding of education with no questions, pt did require intermittent vcs for safety. Pt denied questions. No further OT indicated in this setting at this time OT Co-Eval/Treatment Information Co-evaluation/co-treatment performed? No simultaneous skilled care performed Clinical Impression Continue care plan no Therapy Frequency no therapy warranted Evaluation Complexity Occupational Profile and Client History Low - brief history Assessment of Occupational Performance Low (1-3 performance deficits) Clinical Decision/Performance Deficits Low (problem-focused assessments w/limited treatment options) 09/18/23 6013 Surgery Information RN Approved Intervention as tolerated Referring Physician Dr. Chappell Surgery date 09/18/23 Type of Surgery Right SI fixation Home Setting Residence House Lives With alone First floor setup bedroom;tub shower Number of stairs to enter home Ramp Entrance Mobility Equipment Available straight cane;2 wheeled walker;none used Patient Orientation Statement Patient Orientation Statement A&O x 4 Range of Motion RLE WFL LLE WFL Strength RLE WFL LLE WFL Functional Status Bed Mobility / Transfers The patient completed bed mobility & transfers with supervision to MD. He was provided education review with log roll technique for bed mobility with good return demonstration. Ambulation/Description of Gait The patient ambukated 100 feet with supervision & FWW. Balance Sitting normal Standing normal Walking normal Patient Instructions Patient Instruction patient was instructed in and/or given a handout on log rolling technique;other (see comments) (Patient provided intructions/review of post procedure precautions as well for LE exercises. Patient also reminded multiple times to remain fairly sedentary but ok to complete daily activities until follow up per physician.) Spine Surgury Goals Perform bed mobility independently/supervision yes Perform sit to stand transfers with standby assistance/supervision yes Patient will ambulate with assistive device PRN and standby assistance/supervision for 100 feet yes Plan Treatment Today bed mobility;transfer training;gait training;patient instruction Today's Treatment Included The patient was provided post procedure education review regarding precautions, log roll technique, & LE exercises. He also demonstrated safe mobility with FWW assist. Initial Evaluation/Screen Completed? yes Therapist Information License # [place] [id number] General Information Pertinent History of Current Problem The patient is a 62 year old male with sacroiliitis who underwent Right SI fixation. He was referred to physical therapy for post procedure education review & mobility. Jc Farmer, PT documented in this encounter [facility] 09-18-2023 Nurse Note Pt ambulating in [place] with PT without difficulty. [facility] 09-18-2023 Nurse Note PT in with pt at this time [facility] 09-18-2023 Nurse Note Discharge instructions provided, pt states understanding, including the sedentary activity as described, denies questions. [facility] 09-18-2023 Hospital Discharge instructions Venecia Rivera RN - 09/18/2023 1:[address] [facility]ell [facility] Post-Operative Spine Surgery Home Going Instructions ACTIVITES: For two weeks: Lumbosacral Orthosis (LSO) when out of bed for 3 months-this will be given at first post-op visit. Stay relatively sedentary for 2 weeks to avoid bleeding. Weight bearign as tolerated. After first 2 weeks, increase activity gently over [address] when off narcotics. Do not take percocet prescribed by . Proceed with Big Arm as prescribed by Dr. Chappell-when Big Arm is completed, you may resume percocet from Dr. Salas For Twelve Weeks: No heavy lifting, bending or twisting Do not lift anything that weighs more than 10 pounds. Do not push or pull anything Short frequent walks are good for you. Increase your activity gradually. If your pain increases and you get tired, rest. Do your exercises as instructed by the therapist. It is OK to use stairs INCISION CARE: Keep your incision covered until Post Op day # 2. Then remove your dressing and shower. It is okay to get your incision wet. Do not remove or pick glue from your incision, it will come off on its own. Do not soak in tub or pool until 30 days after your surgery. Ice continuously x 48 hours on operative site SELF CARE: If a lumbar brace is ordered, wear it when you are out of bed. When in bed, do not wear brace. If you have an incision on your low back, always wear a T-shirt tucked into your underwear to avoid rubbing of your underwear s elastic band against your incision. Wear lumbar brace over a cotton T shirt. If a cervical collar is ordered, you must wear it at all times, including in bed. You may remove the cervical collar to shower or if you have been cleared to drive. Clean and change cervical collar pads every few days and/or when dirty. OTHER INFORMATION: You can be a passenger in a car anytime. You will have good days, and bad days. This is okay and is part of the healing process. You may experience numbness, tingling, or pain in areas that you did not have before surgery. Again, this is okay and is part of the healing process. Wean your narcotics, anti-inflammatory, and muscle relaxant medications rapidly. You must take an over the counter stool softener while taking narcotic pain medication to prevent constipation. Colace, Senna, Dulcolax, and Milk of Magnesia are some options. No smoking, nicotine products, or anti-inflammatory medications should be taken for 6 months if you have had a cervical, thoracic, or lumbar fusion. Your bone may not fuse or glue together if you don t follow this carefully. Please attend family, community and mu-ism events as soon as possible after your surgery. These functions help speed up your recovery. Please call the office: if you have any questions or concerns during your post op recovery at home ANESTHESIA PROTOCOL NEXT 24 HOURS.. NO DRIVING NO ALCOHOL NO SIGNING ANY LEGAL DOCUMENTS NO OPERATING ANY HEAVY EQUIPMENT YOU MAY DRIVE WHEN NO LONGER TAKING ANY NARCOTICS AND FEEL SAFE TO DO SO WHEN TO NOTIFY YOUR SURGEON: Your temperature is 101 degrees or over and does not respond to Tylenol You notice drainage, increased redness, or warmth at your incision You have increasing pain that is not relieved by rest or medication You have calf pain or unusual swelling in your legs If you have shortness of breath, chest pain, or abnormal coughing, CALL 911 FOLLOW UP APPOINTMENT: Call Dr. Chappell s office: to schedule a follow up appointment for 2 weeks post-op.If you have hardware in you from the surgery, you will need x-rays prior to your appointment. When you make your follow up appointment with our office please let us know to which facility the x-ray prescription should be faxed. documented in this encounter [facility] 09-18-[address] Chappell in to see pt at this time [facility] 09-18-2023 Surgery Postoperative evaluation and management note POST OPERATIVE/PROCEDURE NOTE Noel Alva ([id number]) SURGEON Surgeon(s) and Role: * Shaheen Chappell MD - Primary ANIMAL CHIROPRACTOR Marques ANESTHESIOLOGIST CERTIFIED SURGICAL ASSISTANT: Avinash Adams APRN-CERTIFIED SURGICAL ASSISTANT Student Nurse First Officer: Amanda Murphy SURGICAL STAFF Student Ministries Director: Caryn Tineo RN Registered Nurse Tool Distributor: Angeline Mohan RN Scrub Person: Luiza Calderon PROCEDURE PERFORMED Procedure(s) (LRB): ARTHRODESIS SACROILIAC JOINT MINIMALLY INVASIVE W/ TRANSFIXING DEVICE (Right) FLUOROSCOPY IN OR (Right) PRIMARY CLOSURE Yes ANESTHESIA (type of) General ESTIMATED BLOOD LOSS Minimal DRAINS None BLOOD PRODUCTS None FLUIDS Intake/Output Summary (Last 24 hours) at 09/18/2023 1213 Last data filed at 09/18/2023 1205 Gross per 24 hour Intake 1100 ml Output -- Net 1100 ml PRE OPERATIVE DIAGNOSIS Sacroiliitis [M46.1] POST OPERATIVE DIAGNOSIS Post-Op Diagnosis Codes: * Sacroiliitis [M46.1] FINDINGS No significant abnormalities CONDITION OF PATIENT Stable COMPLICATIONS None GRAFTS AND/OR IMPLANTS See OR Nursing Documentation SPECIMENS No specimen sent * No specimens in log * Shaheen Chappell MD September 18, 2023 12:13 PM [facility] 08-14-2023 History of Present illness Narrative [facility] NOTE Chief Complaint Patient presents with New Patient bilateral lower limb polyneuropathy History of Present Illness: Noel Alva is a pleasant 62 y.o. male who is referred for neuropathy. His feet and legs feel numb, tingling and cold. He has started feeling the same way in his hands recently. He has had symptoms for a little more than 6 months. His balance is poor. No falls. He does have right posterior hip pain and is planning on having a right SI joint fusion with Dr. Chappell. He responded temporarily to right SI joint injections wiht Dr. Hernandez. He is not diabetic. He drinks 3-4 beers per day, sometimes more on the weekends. He does not smoke. He is managed by [facility] in [place]. He is receiving Percocet and Lyrica. Lyrica dose was recently increased to 100 mg bid which has helped. He has a history of a lumbar laminectomy in 1994. EMG 04/15/23 1. 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 No evidence on either side for lumbosacral radiculopathy or lumbosacral plexus disorder MRI lumbar spine 2007 1. Degenerative and postsurgical changes involving the lumbar spine as described above. 2. Multilevel degenerative disc bulges and end plates osteophytes that along with the disc space narrowing result in varying degrees of neural foraminal narrowing, as described above. There is no significant canal narrowing at any level of the lumbar spine. Past Medical History: Diagnosis Date Anemia Essential hypertension, benign No past surgical history on file. History reviewed. No pertinent family history. Social History Tobacco Use Smoking status: Never Smokeless tobacco: Never Substance Use Topics Alcohol use: Yes Current Outpatient Medications Medication Sig Albuterol 108 (90 Base) MCG/ACT Aero Soln inhaler Inhale 2 puffs. amLODIPine 10 MG tablet Take 1 tablet by mouth daily every morning. amLODIPine 10 MG tablet Take 1 tablet by mouth daily. Atorvastatin 20 MG tablet Take 1 tablet by mouth daily every morning. Cholecalciferol (Vitamin D3) 50 MCG (2000 UT) tablet Take 1 tablet by mouth daily. Isosorbide mononitrate 60 MG Tab SR 24 HR tablet XL Take 1 tablet by mouth daily. lisinopril 40 MG tablet Take 1 tablet by mouth daily. Meloxicam 15 MG tablet Take 1 tablet by mouth daily. Metoprolol succinate 100 MG tablet XL TAKE 1 TABLET BY MOUTH ONCE DAILY DIRECTED nitroGLYCERIN 0.4 MG tablet SL DISSOLVE ONE TABLET UNDER THE TONGUE EVERY 5 MINUTES NEEDED FOR CHEST PAIN. DO NOT EXCEED A TOTAL OF 3 DOSES IN 15 MINUTES oxyCODONE-acetaminophen 5-325 MG per tablet TAKE 1 TABLET BY MOUTH THREE TIMES DAILY NEEDED FOR LUMBAR RADICULOPATHY. Pantoprazole [address] tablet DR Take 1 tablet by mouth 2 times daily. Pregabalin 50 MG capsule Take 2 capsules by mouth 2 times daily. SV Iron 325 MG tablet Take 1 tablet by mouth 2 times daily. levoFLOXacin 750 MG tablet TAKE 1 TABLET BY MOUTH ONCE DAILY FOR 7 DAYS (Patient not taking: Reported on 04/18/2023) No Known Allergies Physical Exam: BP 102/69 (BP Location: Left arm, BP Position: Sitting) Pulse 72 Ht 1.676 m (5' 6 ) Wt 75.5 kg (166 lb 8 oz) SpO2 98% BMI 26.87 kg/m Smoking Status Never General: Pleasant and cooperative. In no acute distress. Skin: Clean, dry, intact. No rash. HEENT: Normocephalic atraumatic. No scleral icterus. Mucus membranes moist Extremities: No lower extremity edema. Neurological Examination Mental status: Awake and alert; oriented. Normal attention. Recall intact. Logic normal. No neglect or apraxia. Language fluency and comprehension are normal; object naming intact; repetition intact. Content of speech is normal. There is no dysarthria. Cranial nerves: CN II: Visual merritt intact to confrontation. PERRL. Normal conjunctivae and lids. There is no papilledema on fundoscopy. sports medicine coordinator III, IV and : Extraocular movements full in all directions. Normal smooth pursuit. Saccades are normal. No saccadic dysmetria. There is no nystagmus. CN V: Facial sensation is intact to light touch. CN VII: Facial strength normal with symmetric movement. CN VIII: Hearing is grossly intact. CN IX and X: Soft palate elevates symmetrically in the midline CN XI: Shoulder shrug and sternocleidomastoid strength (R/L) 5/5 CN XII: Tongue is midline with normal movement. Motor: Normal bulk and tone. Strength testing is 5/5 in the upper and lower extremities. There is no pronator drift. Reflexes: Upper extremities 1+, patella: 3+, 2+, achilles absent. Telles is negative. Plantar responses (Babinski) are flexor. Coordination: Finger to nose dysmetria on left, normal on right and in legs. No overshoot on finger jutsin. Sensation: Intact to light touch. Gait: Normal posture and base. Normal stride length and sepideh. Normal arm swing. Normal turning. Cannot perform tandem. Romberg is strongly positive. Assessment and Plan: Noel Alva is a pleasant 62 y.o. male who is referred for neuropathy, confirmed with EMG. He is not a known diabetic. He does drink daily. He has hyperreflexia at the knees with absent ankle jerks. This pattern can be seen in myeloneuropathy. MRI c/t spine would be helpful to evaluate for potential myelopathy. Will order screening labs. Advised cutting back on alcohol consumption. Neuropathic pain is being managed by his pain doctors in [place]. Noel was seen today for new patient. Diagnoses and all orders for this visit: Hereditary and idiopathic peripheral neuropathy - HEMOGLOBIN A1C; Future - B12 & FOLATE; Future - VITAMIN B6; Future - MILENA AND PE, SERUM; Future Hyperreflexia - MRI SPINE CERVICAL WITHOUT CONTRAST; Future - MRI SPINE THORACIC WITHOUT CONTRAST; Future Nikhil Mohr MD 08/14/2023 documented in this encounter [facility] 08-13-2023 Note Patient here for 1 y ear follow up CAD and hypertension. He also needs cleared for surgery. Did have some chest pain w/ SOB last week. States he has been stressed a lot at work lately and has been working a lot. Denies lightheadedness and palpitations. Per patient, he will be scheduled to have 3 screws placed in his right hip with Dr. Chappell in [place]. Had labs in December 2022. Review of Systems Cardiovascular: Positive for chest pain, claudication and dyspnea on exertion. Musculoskeletal: Positive for arthritis, back pain, joint pain and myalgias. Neurological: Positive for numbness. All other systems reviewed and are negative. [facility] 08-13-2023 Note Cardiovascular Medic [facility] SUBJECTIVE Chief Complaint Patient presents with Coronary Artery Disease Chest Pain Pre-op Exam Hyperlipidemia Hypertension Noel Alva is a 62 y.o. male here for follow-up. HPI Patient here for 1 year follow up CAD and hypertension. He also needs cleared for surgery. Did have some chest pain w/ SOB last week. States he has been stressed a lot at work lately and has been working a lot. Denies lightheadedness and palpitations. Per patient, he will be scheduled to have 3 screws placed in his right hip with Dr. Chappell in [place]. Had labs in December 2022. history of CAD s/p stenting of the LAD in 2004, echocardiogram in 2010 was within normal limits. He underwent cath at [facility] 01/12/2018 due to chest pain that showed minimal disease and patent LAD stent. He has hypertension on treatment. 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 Accompanied sx's of shortness of breath and nausea. Pain was left sided, did not radiate. He took 2 SL nitroglycerin pills. Pain resolved and then he continued working. He has been getting up more often in the middle of the night to urinate. He has been having worsened PETER. He's noticed gradual weight gain. He gets dizziness with position changes. Denies orthopnea, PND, LE edema, palpitations. Patient Active Problem List Diagnosis Acute gout of right wrist Atypical chest pain ASHD (arteriosclerotic heart disease) Dyslipidemia Intermittent claudication ([facility]/HCC) Mild intermittent asthma without complication Paresthesia of upper limb Peripheral vascular disease ([facility]/HCC) Primary hypertension S/P angioplasty with stent S/P cardiac cath Unstable angina ([facility]/HCC) Viral syndrome Past Medical History: Diagnosis Date Coronary artery disease Hypertension PVD (peripheral vascular disease) ([facility]) Family History Problem Relation Name Age of Onset Coronary artery disease Mother Coronary artery disease Father Social History Tobacco Use Smoking status: Never Smokeless tobacco: Never Substance Use Topics Alcohol use: Yes Comment: moderate No Known Allergies ROS Cardiovascular: Positive for chest pain, claudication and dyspnea on exertion. Musculoskeletal: Positive for arthritis, back pain, joint pain and myalgias. Neurological: Positive for numbness. All other systems reviewed and are negative. OBJECTIVE Visit Vitals BP 109/76 (BP Location: Left arm, Patient Position: Sitting) Pulse 69 Ht 1.676 m (5' 6 ) Wt 73.5 kg (162 lb) SpO2 95% BMI 26.15 kg/m??? Smoking Status Never BSA 1.85 m??? Medications: Current Outpatient Medications: amLODIPine (Norvasc) 10 mg tablet, Take 1 tablet (10 mg) by mouth in the morning., Disp: 90 tablet, Rfl: 3 aspirin 81 mg chewable tablet, Chew 1 tablet every day by oral route., Disp: , Rfl: cholecalciferol (Vitamin D-3) 50 MCG (1999 UT) tablet, Take 1 tablet by mouth in the morning., Disp: , Rfl: lisinopril 40 mg tablet, Take 1 tablet (40 mg) by mouth in the morning., Disp: 90 tablet, Rfl: 3 metoprolol succinate XL (Toprol-XL) 100 mg 24 hr tablet, TAKE 1 TABLET BY MOUTH ONCE DAILY DIRECTED, Disp: 90 tablet, Rfl: 0 nitroglycerin (Nitrostat) 0.4 mg SL tablet, DISSOLVE ONE TABLET UNDER THE TONGUE EVERY 5 MINUTES NEEDED FOR CHEST PAIN. DO NOT EXCEED A TOTAL OF 3 DOSES IN 15 MINUTES, Disp: 90 tablet, Rfl: 3 oxyCODONE-acetaminophen (Percocet) 5-325 mg tablet, TAKE 1 TABLET BY MOUTH THREE TIMES DAILY NEEDED FOR LUMBAR RADICULOPATHY., Disp: , Rfl: pregabalin (Lyrica) 100 mg capsule, Take 100 mg by mouth in the morning and at bedtime., Disp: , Rfl: atorvastatin (Lipitor) 20 mg tablet, Take 1 tablet (20 mg) by mouth in the morning., Disp: 90 tablet, Rfl: 3 isosorbide mononitrate ER (Imdur) 60 mg 24 hr tablet, Take 1 tablet (60 mg) by mouth in the morning. Do not crush or chew., Disp: 90 tablet, Rfl: 3 Physical Exam Constitutional: Appearance: Normal appearance. He is normal weight. HENT: Head: Normocephalic and atraumatic. Right Ear: External ear normal. Left Ear: External ear normal. Eyes: Extraocular Movements: Extraocular movements intact. Pupils: Pupils are equal, round, and reactive to light. Neck: Vascular: No carotid bruit. Cardiovascular: Rate and Rhythm: Normal rate and regular rhythm. Pulses: Normal pulses. Heart sounds: Normal heart sounds. Pulmonary: Effort: Pulmonary effort is normal. Breath sounds: Normal breath sounds. Abdominal: General: Bowel sounds are normal. Palpations: Abdomen is soft. Musculoskeletal: General: Normal range of motion. Cervical back: Neck supple. Right lower leg: No edema. Left lower leg: No edema. Skin: General: Skin is warm and dry. Neurological: General: No focal deficit present. Mental Status: He is alert and oriented to person, place, and time. Psychiatric: Mood and Affect (more content not included)... [facility] 07-16-2023 History of Present illness Narrative Associated Order(s): LARGE JOINT/BURSA INJECTION AND/OR ASPIRATION Post-Procedure Diagnose(s): Osteoarthritis of both sacroiliac joints; Pain of both sacroiliac joints 62 year old male comes in today for lowe back, right sacroiliac joint pain, follow up, US Guided injection. Patient states he is having pain. Patient states his pain is4/10 today. At his last visit on 07/04/23 follow up visit to US Guided injection on 06/10/23. Patient states he has been doing about the same. He has good days and he has bad days. LARGE JOINT/BURSA INJECTION AND/OR ASPIRATION Date/Time: 07/16/2023 1:40 PM Performed by: Jennie Hernandez MD Authorized by: Jennie Hernandez MD Supporting Documentation Indications: pain and osteoarthritis Procedure Details: Location: sacroiliac - R sacroiliac joint Local Anesthetic: bupivacaine 0.5% and lidocaine 1% Total Local Anesthetic: 4 mLs Guidance: ultrasound Ultrasound probe size: 4 mHz curvilinear Images were saved electronically. Needle size: 22 G Needle Length: 4.0 inch Approach: posterior Medication Verification: I have personally verified and performed the final check of the medication(s) used in this procedure prior to administration. The following items were included during the verification process for medication(s) administered: drug name, strength, volume, expiration, physical integrity and appearance of the medication(s). Medications administered: 1 mL bupivacaine 0.5 %; 2 mL triamcinolone 40 MG/ML; 4 mL lidocaine 10 mg/mL; 5 mL sodium chloride (PF) 0.9 %; 4 mg dexAMETHasone 4 MG/ML Patient tolerance: patient tolerated the procedure well with no immediate complications Comments Medical Decision Making At today's visit I reviewed the history, physical examination, and previous pertinent imaging. We weighed the options of whether or not to proceed with an injection today based off of these findings and discussed alternatives. After this discussion, I felt that the injection was indicated and we elected to proceed. This evaluation and management service was a separate and identifiable service apart from the injection. Pre-Procedure Details The attending physician was present for the entire procedure. Consent: Consent was obtained prior to the procedure after discussion of the risks, benefits and alternatives, and expected outcomes were discussed with the patient. The possibilities of reaction to medication, bleeding, infection, the need for additional procedures, failure to diagnosis a condition, and creating a complication requiring operation were discussed with the patient. The patient concurred with the proposed plan, giving consent. Preparation: Patient was prepped in the usual sterile fashion. The patient was prepped with Chloraprep. Patient counseled on expected outcome and continued treatment and healing process. Patient tolerated the procedure well and was discharged in good condition with post-procedure instructions and anticipatory guidance regarding possible adverse reactions after the procedure including but not limited to infection, injection site flare reaction, allergic reaction. If corticosteroids were used then specifically the patient may develop hyperglycemia, facial flushing, heart palpitations amongst many other side effects associated with corticosteroids. Patient reports 100% relief while anaesthetized on the right side. The patient has a year history of pain involving right sacroiliac joint. The diagnosis of pain emanating from the sacroiliac joint has been arrived at with diligent investigation. In the course our recent treatment as well as prior treatment, alternative pain generators and diagnoses have been excluded. This has been accomplished clinically and diagnostically by incorporating information from history, physical exam, imaging and diagnostic guided injection. The patient meets both ISASS and GARO guidelines for minimally invasive SI joint fusion: We have found: Over 6 months of intensive conservative treatment has failed including physical therapy, medications, SI belt, therapeutic injections. Inadequate [place] [facility] relief from therapeutic injection. 100% relief while anesthetized during guided injection to the right sacroiliac joint on 06/10/2023. 100% relief while anesthetized during guided injection to the right sacroiliac joint on 07/16/2023. The patient has an absence of generalized pain or disorders. Positive Conor's sign. Positive tenderness to the sacral sulcus on the right side. Positive physical exam for 3 or more provocative maneuvers including thigh thrust, Gaenslen, SHIRLEY. Diagnostic imaging reveals degenerative changes involving the sacroiliac joint and no evidence for inflammatory arthropathy is noted. All other diagnoses that could account for the patient's pain have been ruled out. Unfortunately, we have not accomplished long-term pain relief with conservative measures for 6 months or more. We have exhausted conservative measures including activity modification, physical therapy and injection treatments. The patient is expected to continue with pain and disability. The best next step is fusion of the sacroiliac joint, in my opinion. We will now refer to Dr. Chappell for surgical opinion and recommendations. 62 year old male comes in today for lowe back, right sacroiliac joint pain, follow up, US Guided injection. Patient states he is having pain. Patient states his pain is4/10 today. At his last visit on 07/04/23 follow up visit to US Guided injection on 06/10/23. Patient states he has been doing about the same. He has good days and he has bad days. LARGE JOINT/BURSA INJECTION AND/OR ASPIRATION Date/Time: 07/16/2023 1:40 PM Performed by: Jennie Hernandez MD Authorized by: Jennie Hernandez MD Supporting Documentation Indications: pain and osteoarthritis Procedure Details: Location: sacroiliac - R sacroiliac joint Local Anesthetic: bupivacaine 0.5% and lidocaine 1% Total Local Anesthetic: 4 mLs Guidance: ultrasound Ultrasound probe size: 4 mHz curvilinear Images were saved electronically. Needle size: 22 G Needle Length: 4.0 inch Approach: posterior Medication Verification: I have personally verified and performed the final check of the medication(s) used in this procedure prior to administration. The following items were included during the verification process for medication(s) administered: drug name, strength, volume, expiration, physical integrity and appearance of the medication(s). Medications administered: 1 mL bupivacaine 0.5 %; 2 mL triamcinolone 40 MG/ML; 4 mL lidocaine 10 mg/mL; 5 mL sodium chloride (PF) 0.9 %; 4 mg dexAMETHasone 4 MG/ML Patient tolerance: patient tolerated the procedure well with no immediate complications Comments Medical Decision Making At today's visit I reviewed the history, physical examination, and previous pertinent imaging. We weighed the options of whether or not to proceed with an injection today based off of these findings and discussed alternatives. After this discussion, I felt that the injection was indicated and we elected to proceed. This evaluation and management service was a separate and identifiable service apart from the injection. Pre-Procedure Details The attending physician was present for the entire procedure. Consent: Consent was obtained prior to the procedure after discussion of the risks, benefits and alternatives, and expected outcomes were discussed with the patient. The possibilities of reaction to medication, bleeding, infection, the need for additional procedures, failure to diagnosis a condition, and creating a complication requiring operation were discussed with the patient. The patient concurred with the proposed plan, giving consent. Preparation: Patient was prepped in the usual sterile fashion. The patient was prepped with Chloraprep. Patient counseled on expected outcome and continued treatment and healing process. Patient tolerated the procedure well and was discharged in good condition with post-procedure instructions and anticipatory guidance regarding possible adverse reactions after the procedure including but not limited to infection, injection site flare reaction, allergic reaction. If corticosteroids were used then specifically the patient may develop hyperglycemia, facial flushing, heart palpitations amongst many other side effects associated with corticosteroids. Patient reports 100% relief while anaesthetized on the right side. The patient has a year history of pain involving right sacroiliac joint. The diagnosis of pain emanating from the sacroiliac joint has been arrived at with diligent investigation. In the course our recent treatment as well as prior treatment, alternative pain generators and diagnoses have been excluded. This has been accomplished clinically and diagnostically by incorporating information from history, physical exam, imaging and diagnostic guided injection. The patient meets both ISASS and GARO guidelines for minimally invasive SI joint fusion: We have found: Over 6 months of intensive conservative treatment has failed including physical therapy, medications, SI belt, therapeutic injections. Inadequate [place] [facility] relief from therapeutic injection. 100% relief while anesthetized during guided injection to the right sacroiliac joint on 06/10/2023. 100% relief while anesthetized during guided injection to the right sacroiliac joint on 07/16/2023. The patient has an absence of generalized pain or disorders. Positive Conor's sign. Positive tenderness to the sacral sulcus on the right side. Positive physical exam for 3 or more provocative maneuvers including thigh thrust, Gaenslen, SHIRLEY. Diagnostic imaging reveals degenerative changes involving the sacroiliac joint and no evidence for inflammatory arthropathy is noted. All other diagnoses that could account for the patient's pain have been ruled out. Unfortunately, we have not accomplished long-term pain relief with conservative measures for 6 months or more. We have exhausted conservative measures including activity modification, physical therapy and injection treatments. The patient is expected to continue with pain and disability. The best next step is fusion of the sacroiliac joint, in my opinion. We will now refer to Dr. Chappell for surgical opinion and recommendations. I have reviewed, edited and added to the above note and agree with those findings. Additions if any: Jennie Hernandez MD, [facility] Manager [employer] - [facility] documented in this encounter [facility] 07-16-2023 Instructions Eric Luu - 07/16/2023 1:40 PM EDT Patient counseled on expected outcome and continued treatment and healing process. Patient tolerated the procedure well and was discharged in good condition with post-procedure instructions and anticipatory guidance regarding possible adverse reactions after the procedure including but not limited to infection, injection site flare reaction, allergic reaction. If corticosteroids were used then specifically the patient may develop hyperglycemia, facial flushing, heart palpitations amongst many other side effects associated with corticosteroids. documented in this encounter [facility] 07-04-2023 History of Present illness Narrative Referred by: Dr. Misti MD Chief Complaint Patient presents with Lower Back - Pain, Follow-up The patient is in today for his R SI joint. He states his pain is stabbing in the SI joint and burning, numbness and tingling in his R leg. At his last visit on 06/10/23 he received a US guided R SI joint injection and referred to for neuropathy. He states the injection helped for about 2 days.He states he has an appointment scheduled in August with .He states his pain is a constant 8/10. Lower Back Location: R SI joint Quality: stabbing, burning, numbness and tingling Duration: a long time NSAIDs? meloxicam Analgesics? Percocet, Lyrica Other pain modalities? Topical creams Physical therapy? Done recently at [facility] Xrays? Lumbar spine 12/2022 done at [place], bilateral hips and pelvis 01/08/23 MRI? 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 06/10/23 US guided R SI joint injection and referred to for neuropathy. Response to treatment since last visit? He states the injection helped for about 2 days. He is scheduled for August. Current Outpatient Medications: Albuterol 108 (90 Base) MCG/ACT Aero Soln inhaler, Inhale 2 puffs., Disp: , Rfl: amLODIPine 10 MG tablet, Take 1 tablet by mouth daily every morning., Disp: , Rfl: amLODIPine 10 MG tablet, Take 1 tablet by mouth daily., Disp: 30 tablet, Rfl: 15 Atorvastatin 20 MG tablet, Take 1 tablet by mouth daily every morning., Disp: , Rfl: Cholecalciferol (Vitamin D3) 50 MCG (2000 UT) tablet, Take 1 tablet by mouth daily., Disp: , Rfl: Isosorbide mononitrate 60 MG Tab SR 24 HR tablet XL, Take 1 tablet by mouth daily., Disp: , Rfl: levoFLOXacin 750 MG tablet, TAKE 1 TABLET BY MOUTH ONCE DAILY FOR 7 DAYS (Patient not taking: Reported on 04/18/2023), Disp: , Rfl: lisinopril 40 MG tablet, Take 1 tablet by mouth daily., Disp: , Rfl: Meloxicam 15 MG tablet, Take 1 tablet by mouth daily., Disp: , Rfl: Metoprolol succinate 100 MG tablet XL, TAKE 1 TABLET BY MOUTH ONCE DAILY DIRECTED, Disp: , Rfl: nitroGLYCERIN 0.4 MG tablet SL, DISSOLVE ONE TABLET UNDER THE TONGUE EVERY 5 MINUTES NEEDED FOR CHEST PAIN. DO NOT EXCEED A TOTAL OF 3 DOSES IN 15 MINUTES, Disp: , Rfl: oxyCODONE-acetaminophen 5-325 MG per tablet, TAKE 1 TABLET BY MOUTH THREE TIMES DAILY NEEDED FOR LUMBAR RADICULOPATHY., Disp: , Rfl: Pantoprazole [address] tablet DR, Take 1 tablet by mouth 2 times daily., Disp: , Rfl: Pregabalin 50 MG capsule, Take 1 capsule by mouth 2 times daily., Disp: , Rfl: SV Iron 325 MG tablet, Take 1 tablet by mouth 2 times daily., Disp: , Rfl: History reviewed. No pertinent family history. Social History Tobacco Use Smoking status: Never Smokeless tobacco: Never Substance Use Topics Alcohol use: Yes No past surgical history on file. Vitals: 07/04/23 0934 Weight: 76.2 kg (168 lb) Height: 1.676 m (5' 6 ) Constitutional No fevers, chills or sweats, unintentional weight gain or weight loss, night pain, or night sweats except as per HPI. Cardiovascular No recent chest pain or palpitations. No claudication. No new or worsening lower extremity edema except as per HPI. Respiratory No new or worsening shortness of breath, dyspnea on exertion, orthopnea or paroxysmal nocturnal dyspnea except as per HPI. Gastrointestinal No recent heartburn or stomach upset, no history of ulcers except as per HPI. Musculoskeletal No joint pain, stiffness, or weakness except as per HPI. Endocrine No polyphagia, polydypsia, or polyuria. Hematologic No known or recent anemia, no excessive bleeding. Rheumatologic No history or currently active autoimmune or rheumatologic disease except as per HPI. Integumentary No new or relevant rashes or lesions except as per HPI. Neurologic No numbness, tingling, or weakness into her distal extremities except as per HPI. Constitutional Normal No acute distress. Well nourished. Well developed. Head/Face Normal Facial features - Normal. Eyebrows - Normal. Skull - Normal. Hair and scalp - Normal. Eyes Normal General - Right: Normal, Left: Normal. Lids/external - Right: Normal, Left: Normal. Conjunctiva - Right: Normal, Left: Normal. Ears Normal Inspection - Right: Normal, Left: Normal. Pinna - Right: Normal, Left: Normal. Nasopharynx Normal External nose - Normal. Nares - Right: Normal. Nasal Mucosa - Normal. Lips/teeth/gums - Normal. Buccal mucosa - Normal. Neck Exam Normal Inspection - Normal. Range of motion - Normal. Neck Exam Comments Supple. Respiratory Normal Inspection - Normal. Cough - Absent. Effort - Normal. Cardiovascular Normal Heart rate - Regular rate. Vascular Normal Pulses - Radial: Normal, Brachial: Normal, Dorsalis pedis: Normal, Posterior tibial: Normal. Capillary refill - Less than 2 seconds. Skin * Rash - Description: none. Extremity Normal No Edema. No Calf tenderness. Diabetic Foot Screen Normal Pulses - Dorsalis pedis: Normal, Posterior tibial: Normal. Neurological Normal Level of consciousness - Normal. Orientation - Normal. Memory - Normal. Psychiatric Normal No agitation. Appropriate mood and affect. Appropriate affect. Normal insight. Normal judgment. Interval exam: Lumbar spine Inspection: No erythema, ecchymosis, swelling or deformity. No open wounds. NVID MRI lumbar spine reviewed from 11/09/2007 Notes reviewed from Dr Hernandez 06/10/23 History obtained from patient. ASSESSMENT and PLAN: 1. Osteoarthritis of both sacroiliac joints The evidence based treatment of ostearthritis was discussed today and handouts were given. Stepwise approach to treatment includes the following: Supplements - ASU 300mg for large joints, glucosamine/chondroitin for small joints, omega-3-FA's for heart health and some evidence for improvement in joint pain Medications - acetaminophen can be taken daily, not to exceed 3000mg in day; NSAIDs can be more effective at pain relief, however come with potentially consequences if taken daily including but not limited to gastric toxicity, GI bleeds, renal damage and chronic kidney disease, increased risk of heart attack. Bracing - depends on the case Exercise and physical therapy - recommended to maintain strength and range of motion of the affected joint; some insurances require PT prior to authorization for some injecitons and/or surgery. Injections - Corticosteroids are good to calm down inflammation, the gel medications (hyaluronic acid) are longer lasting and healthy, and PRP (platelet rich plasma) is a newer option that is healthy for the joint but considered experimental by insurances and so they will not cover it. Surgery - arthroscopic surgery no longer recommended as treatment for OA, although some specific cases may still benefit. The gold standard and definitive treatment for OA is joint replacement (knees, hips, shoulders, etc.) vs. joint fusion (sacroiliac joint, small joints, some intermediate sized joints). 2. Pain of both sacroiliac joints This is a functional problem involving the joint of the tailbone (sacrum) and the pelvis (ilium). The corrective action is to alleviate inflammation and to facilitate functional recovery of the joint and surrounding musculature. Often, this can be accomplished through a combination of home exercises and physical therapy. At times manipulative treatment can be helpful as well. In some resistant cases, an injection to the sacroiliac joint is employed. If the problem is bad enough, some cases require surgical fusion of joint to stabilize it and eliminate pain. 3. Polyneuropathy Noel sacroiliac joint pain is worse on the right side, we will proceed with scheduling a US Guided injection. Referrals: None Medications prescribed today: None Follow up plan: US Guided right SI joint injection with [employer] Severity of problem(s): Moderate Risk of morbidity or complication from the condition and/or additional testing or treatment: Low Referred by: Dr. Misti MD Chief Complaint Patient presents with Lower Back - Pain, Follow-up The patient is in today for his R SI joint. He states his pain is stabbing in the SI joint and burning, numbness and tingling in his R leg. At his last visit on 06/10/23 he received a US guided R SI joint injection and referred to for neuropathy. He states the injection helped for about 2 days.He states he has an appointment scheduled in August with .He states his pain is a constant 8/10. Lower Back Location: R SI joint Quality: stabbing, burning, numbness and tingling Duration: a long time NSAIDs? meloxicam Analgesics? Percocet, Lyrica Other pain modalities? Topical creams Physical therapy? Done recently at [facility] Xrays? Lumbar spine 12/2022 done at [place], bilateral hips and pelvis 01/08/23 MRI? 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 06/10/23 US guided R SI joint injection and referred to for neuropathy. Response to treatment since last visit? He states the injection helped for about 2 days. He is scheduled for August. Current Outpatient Medications: Albuterol 108 (90 Base) MCG/ACT Aero Soln inhaler, Inhale 2 puffs., Disp: , Rfl: amLODIPine 10 MG tablet, Take 1 tablet by mouth daily every morning., Disp: , Rfl: amLODIPine 10 MG tablet, Take 1 tablet by mouth daily., Disp: 30 tablet, Rfl: 15 Atorvastatin 20 MG tablet, Take 1 tablet by mouth daily every morning., Disp: , Rfl: Cholecalciferol (Vitamin D3) 50 MCG (2000 UT) tablet, Take 1 tablet by mouth daily., Disp: , Rfl: Isosorbide mononitrate 60 MG Tab SR 24 HR tablet XL, Take 1 tablet by mouth daily., Disp: , Rfl: levoFLOXacin 750 MG tablet, TAKE 1 TABLET BY MOUTH ONCE DAILY FOR 7 DAYS (Patient not taking: Reported on 04/18/2023), Disp: , Rfl: lisinopril 40 MG tablet, Take 1 tablet by mouth daily., Disp: , Rfl: Meloxicam 15 MG tablet, Take 1 tablet by mouth daily., Disp: , Rfl: Metoprolol succinate 100 MG tablet XL, TAKE 1 TABLET BY MOUTH ONCE DAILY DIRECTED, Disp: , Rfl: nitroGLYCERIN 0.4 MG tablet SL, DISSOLVE ONE TABLET UNDER THE TONGUE EVERY 5 MINUTES NEEDED FOR CHEST PAIN. DO NOT EXCEED A TOTAL OF 3 DOSES IN 15 MINUTES, Disp: , Rfl: oxyCODONE-acetaminophen 5-325 MG per tablet, TAKE 1 TABLET BY MOUTH THREE TIMES DAILY NEEDED FOR LUMBAR RADICULOPATHY., Disp: , Rfl: Pantoprazole [address] tablet DR, Take 1 tablet by mouth 2 times daily., Disp: , Rfl: Pregabalin 50 MG capsule, Take 1 capsule by mouth 2 times daily., Disp: , Rfl: SV Iron 325 MG tablet, Take 1 tablet by mouth 2 times daily., Disp: , Rfl: History reviewed. No pertinent family history. Social History Tobacco Use Smoking status: Never Smokeless tobacco: Never Substance Use Topics Alcohol use: Yes No past surgical history on file. Vitals: 07/04/23 0934 Weight: 76.2 kg (168 lb) Height: 1.676 m (5' 6 ) Constitutional No fevers, chills or sweats, unintentional weight gain or weight loss, night pain, or night sweats except as per HPI. Cardiovascular No recent chest pain or palpitations. No claudication. No new or worsening lower extremity edema except as per HPI. Respiratory No new or worsening shortness of breath, dyspnea on exertion, orthopnea or paroxysmal nocturnal dyspnea except as per HPI. Gastrointestinal No recent heartburn or stomach upset, no history of ulcers except as per HPI. Musculoskeletal No joint pain, stiffness, or weakness except as per HPI. Endocrine No polyphagia, polydypsia, or polyuria. Hematologic No known or recent anemia, no excessive bleeding. Rheumatologic No history or currently active autoimmune or rheumatologic disease except as per HPI. Integumentary No new or relevant rashes or lesions except as per HPI. Neurologic No numbness, tingling, or weakness into her distal extremities except as per HPI. Constitutional Normal No acute distress. Well nourished. Well developed. Head/Face Normal Facial features - Normal. Eyebrows - Normal. Skull - Normal. Hair and scalp - Normal. Eyes Normal General - Right: Normal, Left: Normal. Lids/external - Right: Normal, Left: Normal. Conjunctiva - Right: Normal, Left: Normal. Ears Normal Inspection - Right: Normal, Left: Normal. Pinna - Right: Normal, Left: Normal. Nasopharynx Normal External nose - Normal. Nares - Right: Normal. Nasal Mucosa - Normal. Lips/teeth/gums - Normal. Buccal mucosa - Normal. Neck Exam Normal Inspection - Normal. Range of motion - Normal. Neck Exam Comments Supple. Respiratory Normal Inspection - Normal. Cough - Absent. Effort - Normal. Cardiovascular Normal Heart rate - Regular rate. Vascular Normal Pulses - Radial: Normal, Brachial: Normal, Dorsalis pedis: Normal, Posterior tibial: Normal. Capillary refill - Less than 2 seconds. Skin * Rash - Description: none. Extremity Normal No Edema. No Calf tenderness. Diabetic Foot Screen Normal Pulses - Dorsalis pedis: Normal, Posterior tibial: Normal. Neurological Normal Level of consciousness - Normal. Orientation - Normal. Memory - Normal. Psychiatric Normal No agitation. Appropriate mood and affect. Appropriate affect. Normal insight. Normal judgment. Interval exam: Lumbar spine Inspection: No erythema, ecchymosis, swelling or deformity. No open wounds. NVID MRI lumbar spine reviewed from 11/09/[address] Hernandez 06/10/23 History obtained from patient. ASSESSMENT and PLAN: 1. Osteoarthritis of both sacroiliac joints The evidence based treatment of ostearthritis was discussed today and handouts were given. Stepwise approach to treatment includes the following: Supplements - ASU 300mg for large joints, glucosamine/chondroitin for small joints, omega-3-FA's for heart health and some evidence for improvement in joint pain Medications - acetaminophen can be taken daily, not to exceed 3000mg in day; NSAIDs can be more effective at pain relief, however come with potentially consequences if taken daily including but not limited to gastric toxicity, GI bleeds, renal damage and chronic kidney disease, increased risk of heart attack. Bracing - depends on the case Exercise and physical therapy - recommended to maintain strength and range of motion of the affected joint; some insurances require PT prior to authorization for some injecitons and/or surgery. Injections - Corticosteroids are good to calm down inflammation, the gel medications (hyaluronic acid) are longer lasting and healthy, and PRP (platelet rich plasma) is a newer option that is healthy for the joint but considered experimental by insurances and so they will not cover it. Surgery - arthroscopic surgery no longer recommended as treatment for OA, although some specific cases may still benefit. The gold standard and definitive treatment for OA is joint replacement (knees, hips, shoulders, etc.) vs. joint fusion (sacroiliac joint, small joints, some intermediate sized joints). 2. Pain of both sacroiliac joints This is a functional problem involving the joint of the tailbone (sacrum) and the pelvis (ilium). The corrective action is to alleviate inflammation and to facilitate functional recovery of the joint and surrounding musculature. Often, this can be accomplished through a combination of home exercises and physical therapy. At times manipulative treatment can be helpful as well. In some resistant cases, an injection to the sacroiliac joint is employed. If the problem is bad enough, some cases require surgical fusion of joint to stabilize it and eliminate pain. 3. Polyneuropathy Noel sacroiliac joint pain is worse on the right side, we will proceed with scheduling a US Guided injection. Referrals: None Medications prescribed today: None Follow up plan: US Guided right SI joint injection with [employer] Severity of problem(s): Moderate Risk of morbidity or complication from the condition and/or additional testing or treatment: Low I have reviewed, edited and added to the above note and agree with those findings. Additions if any: Jennie Hernandez MD, [facility] Manager [employer] - [facility] documented in this encounter [facility] 06-10-2023 History of Present illness Narrative Associated Order(s): LARGE JOINT/BURSA INJECTION AND/OR ASPIRATION Post-Procedure Diagnose(s): Osteoarthritis of right sacroiliac joint; Pain of right sacroiliac joint Patient arrives with pain around L5 and states he has numbness and tingling through the front of his thighs to the dorsal aspect of his feet and toes. Patient has no pain when palpating the left sacroiliac joint today. Last US guided injection on 04/18/23 gave him some low mid back pain relief for a few days but did not help with the numbness/tingling and did not in terms of longevity help with the pain. Notes reviewed from, 05/19/23, 04/18/[address] Cee 04/15/23 Noel's left sacroiliac joint pain was non- existent today however he was very tender to the right sacroiliac joint. We held off on the referral to Dr. Chappell and moved forward with a right sacroiliac joint US guided injection today. I would like him to return in 4-6 weeks for a follow up on his response. In the meantime, I would like him to consult with Dr. Mohr to see if he can help treat the polyneuropathy found from Dr. Cee's EMG from 04/15/23. LARGE JOINT/BURSA INJECTION AND/OR ASPIRATION Date/Time: 06/10/2023 10:00 AM Performed by: Jose Henriquez ATC Authorized by: Jennie Hernandez MD Supporting Documentation Indications: pain and osteoarthritis Procedure Details: Location: sacroiliac - R sacroiliac joint Local Anesthetic: bupivacaine 0.5% and lidocaine 1% Total Local Anesthetic: 4 mLs Guidance: ultrasound Ultrasound probe size: 4 mHz curvilinear Images were saved electronically. Needle size: 22 G Needle Length: 4.0 inch Approach: posterior Medication Verification: I have personally verified and performed the final check of the medication(s) used in this procedure prior to administration. The following items were included during the verification process for medication(s) administered: drug name, strength, volume, expiration, physical integrity and appearance of the medication(s). Medications administered: 1 mL bupivacaine 0.5 %; 2 mL triamcinolone 40 MG/ML; 4 mL lidocaine 10 mg/mL; 5 mL sodium chloride (PF) 0.9 %; 4 mg dexAMETHasone 4 MG/ML Patient tolerance: patient tolerated the procedure well with no immediate complications Comments Medical Decision Making At today's visit I reviewed the history, physical examination, and previous pertinent imaging. We weighed the options of whether or not to proceed with an injection today based off of these findings and discussed alternatives. After this discussion, I felt that the injection was indicated and we elected to proceed. This evaluation and management service was a separate and identifiable service apart from the injection. Pre-Procedure Details The attending physician was present for the entire procedure. Consent: Consent was obtained prior to the procedure after discussion of the risks, benefits and alternatives, and expected outcomes were discussed with the patient. The possibilities of reaction to medication, bleeding, infection, the need for additional procedures, failure to diagnosis a condition, and creating a complication requiring operation were discussed with the patient. The patient concurred with the proposed plan, giving consent. Preparation: Patient was prepped in the usual sterile fashion. The patient was prepped with Chloraprep. Patient counseled on expected outcome and continued treatment and healing process. Patient tolerated the procedure well and was discharged in good condition with post-procedure instructions and anticipatory guidance regarding possible adverse reactions after the procedure including but not limited to infection, injection site flare reaction, allergic reaction. If corticosteroids were used then specifically the patient may develop hyperglycemia, facial flushing, heart palpitations amongst many other side effects associated with corticosteroids. Patient reports 100% pain relief while anesthestized. Patient arrives with pain around L5 and states he has numbness and tingling through the front of his thighs to the dorsal aspect of his feet and toes. Patient has no pain when palpating the left sacroiliac joint today. Last US guided injection on 04/18/23 gave him some low mid back pain relief for a few days but did not help with the numbness/tingling and did not in terms of longevity help with the pain. Notes reviewed from, 05/19/23, 04/18/[address] Cee 04/15/23 Noel's left sacroiliac joint pain was non- existent today however he was very tender to the right sacroiliac joint. We held off on the referral to Dr. Chappell and moved forward with a right sacroiliac joint US guided injection today. I would like him to return in 4-6 weeks for a follow up on his response. In the meantime, I would like him to consult with Dr. Mohr to see if he can help treat the polyneuropathy found from Dr. Cee's EMG from 04/15/23. LARGE JOINT/BURSA INJECTION AND/OR ASPIRATION Date/Time: 06/10/2023 10:00 AM Performed by: Jose Henriquez ATC Authorized by: Jennie Hernandez MD Supporting Documentation Indications: pain and osteoarthritis Procedure Details: Location: sacroiliac - R sacroiliac joint Local Anesthetic: bupivacaine 0.5% and lidocaine 1% Total Local Anesthetic: 4 mLs Guidance: ultrasound Ultrasound probe size: 4 mHz curvilinear Images were saved electronically. Needle size: 22 G Needle Length: 4.0 inch Approach: posterior Medication Verification: I have personally verified and performed the final check of the medication(s) used in this procedure prior to administration. The following items were included during the verification process for medication(s) administered: drug name, strength, volume, expiration, physical integrity and appearance of the medication(s). Medications administered: 1 mL bupivacaine 0.5 %; 2 mL triamcinolone 40 MG/ML; 4 mL lidocaine 10 mg/mL; 5 mL sodium chloride (PF) 0.9 %; 4 mg dexAMETHasone 4 MG/ML Patient tolerance: patient tolerated the procedure well with no immediate complications Comments Medical Decision Making At today's visit I reviewed the history, physical examination, and previous pertinent imaging. We weighed the options of whether or not to proceed with an injection today based off of these findings and discussed alternatives. After this discussion, I felt that the injection was indicated and we elected to proceed. This evaluation and management service was a separate and identifiable service apart from the injection. Pre-Procedure Details The attending physician was present for the entire procedure. Consent: Consent was obtained prior to the procedure after discussion of the risks, benefits and alternatives, and expected outcomes were discussed with the patient. The possibilities of reaction to medication, bleeding, infection, the need for additional procedures, failure to diagnosis a condition, and creating a complication requiring operation were discussed with the patient. The patient concurred with the proposed plan, giving consent. Preparation: Patient was prepped in the usual sterile fashion. The patient was prepped with Chloraprep. Patient counseled on expected outcome and continued treatment and healing process. Patient tolerated the procedure well and was discharged in good condition with post-procedure instructions and anticipatory guidance regarding possible adverse reactions after the procedure including but not limited to infection, injection site flare reaction, allergic reaction. If corticosteroids were used then specifically the patient may develop hyperglycemia, facial flushing, heart palpitations amongst many other side effects associated with corticosteroids. Patient reports 100% pain relief while anesthestized. I have reviewed, edited and added to the above note and agree with those findings. Additions if any: Jennie Hernandez MD, [facility] Orthopedics and Sports Medicine Manager Business [employer] - [facility] documented in this encounter [facility] 05-19-2023 History of Present illness Narrative Referred by: Dr. Chappell Chief Complaint Patient presents with Lower Back - Pain, Follow-up HPI US guided left SI joint injection done 04/18/23 Patient states on day of injection some of the pain went away, but not all Patient also states SI joint injection did not change numbness and tingling in lower extremities Patient states he top of thighs, my calves and feet and numb and tingling Location: lower back, bilateral lower extremities Quality: stabbing, burning numbness and tingling Duration: a long time NSAIDs? meloxicam Analgesics? Percocet, Lyrica Other pain modalities? Topical creams Physical therapy? Done recently at [facility] Xrays? Lumbar spine 12/2022 done at [place], bilateral hips and pelvis 01/08/23 MRI? 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 US guided left SI joint injection done 04/18/23 Response to treatment since last visit? Patient reports some pain relief while anesthetized Current Outpatient Medications: Albuterol 108 (90 Base) MCG/ACT Aero Soln inhaler, Inhale 2 puffs., Disp: , Rfl: amLODIPine 10 MG tablet, Take 1 tablet by mouth daily every morning., Disp: , Rfl: amLODIPine 10 MG tablet, Take 1 tablet by mouth daily., Disp: 30 tablet, Rfl: 15 Atorvastatin 20 MG tablet, Take 1 tablet by mouth daily every morning., Disp: , Rfl: Cholecalciferol (Vitamin D3) 50 MCG (2000 UT) tablet, Take 1 tablet by mouth daily., Disp: , Rfl: Isosorbide mononitrate 60 MG Tab SR 24 HR tablet XL, Take 1 tablet by mouth daily., Disp: , Rfl: lisinopril 40 MG tablet, Take 1 tablet by mouth daily., Disp: , Rfl: Meloxicam 15 MG tablet, Take 1 tablet by mouth daily., Disp: , Rfl: Metoprolol succinate 100 MG tablet XL, TAKE 1 TABLET BY MOUTH ONCE DAILY DIRECTED, Disp: , Rfl: nitroGLYCERIN 0.4 MG tablet SL, DISSOLVE ONE TABLET UNDER THE TONGUE EVERY 5 MINUTES NEEDED FOR CHEST PAIN. DO NOT EXCEED A TOTAL OF 3 DOSES IN 15 MINUTES, Disp: , Rfl: oxyCODONE-acetaminophen 5-325 MG per tablet, TAKE 1 TABLET BY MOUTH THREE TIMES DAILY NEEDED FOR LUMBAR RADICULOPATHY., Disp: , Rfl: Pantoprazole [address] tablet DR, Take 1 tablet by mouth 2 times daily., Disp: , Rfl: Pregabalin 50 MG capsule, Take 1 capsule by mouth 2 times daily., Disp: , Rfl: SV Iron 325 MG tablet, Take 1 tablet by mouth 2 times daily., Disp: , Rfl: levoFLOXacin 750 MG tablet, TAKE 1 TABLET BY MOUTH ONCE DAILY FOR 7 DAYS (Patient not taking: Reported on 04/18/2023), Disp: , Rfl: No family history on file. Social History Tobacco Use Smoking status: Never Smokeless tobacco: Never Substance Use Topics Alcohol use: Yes No past surgical history on file. Vitals: 05/19/23 0907 Weight: 76.2 kg (168 lb) Height: 1.676 m (5' 6 ) Constitutional No fevers, chills or sweats, unintentional weight gain or weight loss, night pain, or night sweats except as per HPI. Cardiovascular No recent chest pain or palpitations. No claudication. No new or worsening lower extremity edema except as per HPI. Respiratory No new or worsening shortness of breath, dyspnea on exertion, orthopnea or paroxysmal nocturnal dyspnea except as per HPI. Gastrointestinal No recent heartburn or stomach upset, no history of ulcers except as per HPI. Musculoskeletal No joint pain, stiffness, or weakness except as per HPI. Endocrine No polyphagia, polydypsia, or polyuria. Hematologic No known or recent anemia, no excessive bleeding. Rheumatologic No history or currently active autoimmune or rheumatologic disease except as per HPI. Integumentary No new or relevant rashes or lesions except as per HPI. Neurologic No numbness, tingling, or weakness into her distal extremities except as per HPI. Constitutional Normal No acute distress. Well nourished. Well developed. Head/Face Normal Facial features - Normal. Eyebrows - Normal. Skull - Normal. Hair and scalp - Normal. Eyes Normal General - Right: Normal, Left: Normal. Lids/external - Right: Normal, Left: Normal. Conjunctiva - Right: Normal, Left: Normal. Ears Normal Inspection - Right: Normal, Left: Normal. Pinna - Right: Normal, Left: Normal. Nasopharynx Normal External nose - Normal. Nares - Right: Normal. Nasal Mucosa - Normal. Lips/teeth/gums - Normal. Buccal mucosa - Normal. Neck Exam Normal Inspection - Normal. Range of motion - Normal. Neck Exam Comments Supple. Respiratory Normal Inspection - Normal. Cough - Absent. Effort - Normal. Cardiovascular Normal Heart rate - Regular rate. Vascular Normal Pulses - Radial: Normal, Brachial: Normal, Dorsalis pedis: Normal, Posterior tibial: Normal. Capillary refill - Less than 2 seconds. Skin * Rash - Description: none. Extremity Normal No Edema. No Calf tenderness. Diabetic Foot Screen Normal Pulses - Dorsalis pedis: Normal, Posterior tibial: Normal. Neurological Normal Level of consciousness - Normal. Orientation - Normal. Memory - Normal. Psychiatric Normal No agitation. Appropriate mood and affect. Appropriate affect. Normal insight. Normal judgment. Interval exam: Lumbar spine Inspection: No erythema, ecchymosis, swelling or deformity. No open wounds. NVID Tender to left SI joint. Positive CONOR on left Positive SHIRLEY on left Positive THIGH THRUST on left Positive DISTRACTION on left Bilateral hip xray reviewed from 01/08/23 Notes reviewed from Dr Hernandez 04/18/23 History obtained from patient. ASSESSMENT and PLAN: 1. Osteoarthritis of left sacroiliac joint 2. Pain of left sacroiliac joint We feel confident that Noel's main pain generator currently is left SI joint. He has failed all manner of conservative measures and had all imaging required. The only thing needed prior to proceeding with surgery is diagnostic #2 guided injection for GARO criteria. We will schedule him for that injection. 3. Lumbar spondylosis Not the current main pain generator. Referrals: none Medications prescribed today: none Follow up plan: SPORTS US guided Left SI joint injection (diagnostic) Severity of problem(s): Moderate Risk of morbidity or complication from the condition and/or additional testing or treatment: Low Referred by: Dr. Chappell Chief Complaint Patient presents with Lower Back - Pain, Follow-up HPI US guided left SI joint injection done 04/18/23 Patient states on day of injection some of the pain went away, but not all Patient also states SI joint injection did not change numbness and tingling in lower extremities Patient states he top of thighs, my calves and feet and numb and tingling Location: lower back, bilateral lower extremities Quality: stabbing, burning numbness and tingling Duration: a long time NSAIDs? meloxicam Analgesics? Percocet, Lyrica Other pain modalities? Topical creams Physical therapy? Done recently at [facility] Xrays? Lumbar spine 12/2022 done at [place], bilateral hips and pelvis 01/08/23 MRI? 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 US guided left SI joint injection done 04/18/23 Response to treatment since last visit? Patient reports some pain relief while anesthetized Current Outpatient Medications: Albuterol 108 (90 Base) MCG/ACT Aero Soln inhaler, Inhale 2 puffs., Disp: , Rfl: amLODIPine 10 MG tablet, Take 1 tablet by mouth daily every morning., Disp: , Rfl: amLODIPine 10 MG tablet, Take 1 tablet by mouth daily., Disp: 30 tablet, Rfl: 15 Atorvastatin 20 MG tablet, Take 1 tablet by mouth daily every morning., Disp: , Rfl: Cholecalciferol (Vitamin D3) 50 MCG (2000 UT) tablet, Take 1 tablet by mouth daily., Disp: , Rfl: Isosorbide mononitrate 60 MG Tab SR 24 HR tablet XL, Take 1 tablet by mouth daily., Disp: , Rfl: lisinopril 40 MG tablet, Take 1 tablet by mouth daily., Disp: , Rfl: Meloxicam 15 MG tablet, Take 1 tablet by mouth daily., Disp: , Rfl: Metoprolol succinate 100 MG tablet XL, TAKE 1 TABLET BY MOUTH ONCE DAILY DIRECTED, Disp: , Rfl: nitroGLYCERIN 0.4 MG tablet SL, DISSOLVE ONE TABLET UNDER THE TONGUE EVERY 5 MINUTES NEEDED FOR CHEST PAIN. DO NOT EXCEED A TOTAL OF 3 DOSES IN 15 MINUTES, Disp: , Rfl: oxyCODONE-acetaminophen 5-325 MG per tablet, TAKE 1 TABLET BY MOUTH THREE TIMES DAILY NEEDED FOR LUMBAR RADICULOPATHY., Disp: , Rfl: Pantoprazole [address] tablet DR, Take 1 tablet by mouth 2 times daily., Disp: , Rfl: Pregabalin 50 MG capsule, Take 1 capsule by mouth 2 times daily., Disp: , Rfl: SV Iron 325 MG tablet, Take 1 tablet by mouth 2 times daily., Disp: , Rfl: levoFLOXacin 750 MG tablet, TAKE 1 TABLET BY MOUTH ONCE DAILY FOR 7 DAYS (Patient not taking: Reported on 04/18/2023), Disp: , Rfl: No family history on file. Social History Tobacco Use Smoking status: Never Smokeless tobacco: Never Substance Use Topics Alcohol use: Yes No past surgical history on file. Vitals: 05/19/23 0907 Weight: 76.2 kg (168 lb) Height: 1.676 m (5' 6 ) Constitutional No fevers, chills or sweats, unintentional weight gain or weight loss, night pain, or night sweats except as per HPI. Cardiovascular No recent chest pain or palpitations. No claudication. No new or worsening lower extremity edema except as per HPI. Respiratory No new or worsening shortness of breath, dyspnea on exertion, orthopnea or paroxysmal nocturnal dyspnea except as per HPI. Gastrointestinal No recent heartburn or stomach upset, no history of ulcers except as per HPI. Musculoskeletal No joint pain, stiffness, or weakness except as per HPI. Endocrine No polyphagia, polydypsia, or polyuria. Hematologic No known or recent anemia, no excessive bleeding. Rheumatologic No history or currently active autoimmune or rheumatologic disease except as per HPI. Integumentary No new or relevant rashes or lesions except as per HPI. Neurologic No numbness, tingling, or weakness into her distal extremities except as per HPI. Constitutional Normal No acute distress. Well nourished. Well developed. Head/Face Normal Facial features - Normal. Eyebrows - Normal. Skull - Normal. Hair and scalp - Normal. Eyes Normal General - Right: Normal, Left: Normal. Lids/external - Right: Normal, Left: Normal. Conjunctiva - Right: Normal, Left: Normal. Ears Normal Inspection - Right: Normal, Left: Normal. Pinna - Right: Normal, Left: Normal. Nasopharynx Normal External nose - Normal. Nares - Right: Normal. Nasal Mucosa - Normal. Lips/teeth/gums - Normal. Buccal mucosa - Normal. Neck Exam Normal Inspection - Normal. Range of motion - Normal. Neck Exam Comments Supple. Respiratory Normal Inspection - Normal. Cough - Absent. Effort - Normal. Cardiovascular Normal Heart rate - Regular rate. Vascular Normal Pulses - Radial: Normal, Brachial: Normal, Dorsalis pedis: Normal, Posterior tibial: Normal. Capillary refill - Less than 2 seconds. Skin * Rash - Description: none. Extremity Normal No Edema. No Calf tenderness. Diabetic Foot Screen Normal Pulses - Dorsalis pedis: Normal, Posterior tibial: Normal. Neurological Normal Level of consciousness - Normal. Orientation - Normal. Memory - Normal. Psychiatric Normal No agitation. Appropriate mood and affect. Appropriate affect. Normal insight. Normal judgment. Interval exam: Lumbar spine Inspection: No erythema, ecchymosis, swelling or deformity. No open wounds. NVID Tender to left SI joint. Positive CONOR on left Positive SHIRLEY on left Positive THIGH THRUST on left Positive DISTRACTION on left Bilateral hip xray reviewed from 01/08/[address] Hernandez 04/18/23 History obtained from patient. ASSESSMENT and PLAN: 1. Osteoarthritis of left sacroiliac joint 2. Pain of left sacroiliac joint We feel confident that Noel's main pain generator currently is left SI joint. He has failed all manner of conservative measures and had all imaging required. The only thing needed prior to proceeding with surgery is diagnostic #2 guided injection for GARO criteria. We will schedule him for that injection. 3. Lumbar spondylosis Not the current main pain generator. Referrals: none Medications prescribed today: none Follow up plan: SPORTS US guided Left SI joint injection (diagnostic) Severity of problem(s): Moderate Risk of morbidity or complication from the condition and/or additional testing or treatment: Low I have reviewed, edited and added to the above note and agree with those findings. Additions if any: Jennie Hernandez MD, [facility] Manager [employer] - [facility] documented in this encounter [facility] 04-18-2023 History of Present illness Narrative Patient in office reporting bilateral lower back pain with tingling and numbness in lower extremities. Patient reports constant pain that worsens with ambulation and when standing. Patient wishes to proceed with US guided left SI joint injection Associated Order(s): LARGE JOINT/BURSA INJECTION AND/OR ASPIRATION Post-Procedure Diagnose(s): Osteoarthritis of left sacroiliac joint LARGE JOINT/BURSA INJECTION AND/OR ASPIRATION Date/Time: 04/18/2023 12:40 PM Performed by: Jennie Hernandez MD Authorized by: Jennie Hernandez MD Supporting Documentation Indications: pain and osteoarthritis Procedure Details: Location: sacroiliac - L sacroiliac joint Local Anesthetic: bupivacaine 0.5% and lidocaine 1% Total Local Anesthetic: 4 mLs Guidance: ultrasound Ultrasound probe size: 4 mHz curvilinear Images were saved electronically. Needle size: 22 G Needle Length: 4.0 inch Approach: posterior Medication Verification: I have personally verified and performed the final check of the medication(s) used in this procedure prior to administration. The following items were included during the verification process for medication(s) administered: drug name, strength, volume, expiration, physical integrity and appearance of the medication(s). Medications administered: 1 mL bupivacaine 0.5 %; 2 mL triamcinolone 40 MG/ML; 4 mL lidocaine 10 mg/mL; 5 mL sodium chloride (PF) 0.9 % Patient tolerance: patient tolerated the procedure well with no immediate complications Comments Medical Decision Making At today's visit I reviewed the history, physical examination, and previous pertinent imaging. We weighed the options of whether or not to proceed with an injection today based off of these findings and discussed alternatives. After this discussion, I felt that the injection was indicated and we elected to proceed. This evaluation and management service was a separate and identifiable service apart from the injection. Pre-Procedure Details The attending physician was present for the entire procedure. Consent: Consent was obtained prior to the procedure after discussion of the risks, benefits and alternatives, and expected outcomes were discussed with the patient. The possibilities of reaction to medication, bleeding, infection, the need for additional procedures, failure to diagnosis a condition, and creating a complication requiring operation were discussed with the patient. The patient concurred with the proposed plan, giving consent. Preparation: Patient was prepped in the usual sterile fashion. The patient was prepped with Chloraprep. Patient counseled on expected outcome and continued treatment and healing process. Patient tolerated the procedure well and was discharged in good condition with post-procedure instructions and anticipatory guidance regarding possible adverse reactions after the procedure including but not limited to infection, injection site flare reaction, allergic reaction. If corticosteroids were used then specifically the patient may develop hyperglycemia, facial flushing, heart palpitations amongst many other side effects associated with corticosteroids. Patient reports 100% relief while anaesthetized. Patient in office reporting bilateral lower back pain with tingling and numbness in lower extremities. Patient reports constant pain that worsens with ambulation and when standing. Patient wishes to proceed with US guided left SI joint injection LARGE JOINT/BURSA INJECTION AND/OR ASPIRATION Date/Time: 04/18/2023 12:40 PM Performed by: Jennie Hernandez MD Authorized by: Jennie Hernandez MD Supporting Documentation Indications: pain and osteoarthritis Procedure Details: Location: sacroiliac - L sacroiliac joint Local Anesthetic: bupivacaine 0.5% and lidocaine 1% Total Local Anesthetic: 4 mLs Guidance: ultrasound Ultrasound probe size: 4 mHz curvilinear Images were saved electronically. Needle size: 22 G Needle Length: 4.0 inch Approach: posterior Medication Verification: I have personally verified and performed the final check of the medication(s) used in this procedure prior to administration. The following items were included during the verification process for medication(s) administered: drug name, strength, volume, expiration, physical integrity and appearance of the medication(s). Medications administered: 1 mL bupivacaine 0.5 %; 2 mL triamcinolone 40 MG/ML; 4 mL lidocaine 10 mg/mL; 5 mL sodium chloride (PF) 0.9 % Patient tolerance: patient tolerated the procedure well with no immediate complications Comments Medical Decision Making At today's visit I reviewed the history, physical examination, and previous pertinent imaging. We weighed the options of whether or not to proceed with an injection today based off of these findings and discussed alternatives. After this discussion, I felt that the injection was indicated and we elected to proceed. This evaluation and management service was a separate and identifiable service apart from the injection. Pre-Procedure Details The attending physician was present for the entire procedure. Consent: Consent was obtained prior to the procedure after discussion of the risks, benefits and alternatives, and expected outcomes were discussed with the patient. The possibilities of reaction to medication, bleeding, infection, the need for additional procedures, failure to diagnosis a condition, and creating a complication requiring operation were discussed with the patient. The patient concurred with the proposed plan, giving consent. Preparation: Patient was prepped in the usual sterile fashion. The patient was prepped with Chloraprep. Patient counseled on expected outcome and continued treatment and healing process. Patient tolerated the procedure well and was discharged in good condition with post-procedure instructions and anticipatory guidance regarding possible adverse reactions after the procedure including but not limited to infection, injection site flare reaction, allergic reaction. If corticosteroids were used then specifically the patient may develop hyperglycemia, facial flushing, heart palpitations amongst many other side effects associated with corticosteroids. Patient reports 100% relief while anaesthetized. I have reviewed, edited and added to the above note and agree with those findings. Additions if any: Jennie Hernandez MD, [facility] Manager Business [employer] - [facility] documented in this encounter [facility] 04-18-2023 Instructions Eric Luu - 04/18/2023 12:40 PM EDT Patient counseled on expected outcome and continued treatment and healing process. Patient tolerated the procedure well and was discharged in good condition with post-procedure instructions and anticipatory guidance regarding possible adverse reactions after the procedure including but not limited to infection, injection site flare reaction, allergic reaction. If corticosteroids were used then specifically the patient may develop hyperglycemia, facial flushing, heart palpitations amongst many other side effects associated with corticosteroids. documented in this encounter [facility] 02-25-2023 History of Present illness Narrative Referred by: Dr Shaheen Chappell Chief Complaint Patient presents with Lower Back - Pain, New Patient HPI 62 year old male comes in today for new patient visit for lower back pain. Patient states that his pain started a long time ago. Patient states that he a back surgery back in 1994 and his pain is in the same spot. Patient states his pain is numb, cold, tingles, hurts, and can't hardly walk. Patient states on of the doctor mentioned he may have scar tissue. Patient states that he has had injections in the past and they helped for a bit and he has also has his nerves burnt. Noel has attended therapy in the past. Location: Lower back Quality: Numb, cold, tingling, hurts, cant hardly walk Duration: long time NSAIDs? No Analgesics? Oxycodone Other pain modalities? Heat, ice, Biofreeze Physical therapy? previously Chiropractic? No, and it wont help Injections? Yes, help for bit Xrays? Yes, brought disc MRI? yes CT? unsure Bowel or bladder dysfunction? Starting to he believes Numbness or tingling? Both legs for 3 to 4 months now Weakness? 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: amLODIPine 10 MG tablet, Take 1 tablet by mouth daily every morning., Disp: , Rfl: Atorvastatin 20 MG tablet, Take 1 tablet by mouth daily every morning., Disp: , Rfl: Cholecalciferol (Vitamin D3) 50 MCG (2000 UT) tablet, Take 1 tablet by mouth daily., Disp: , Rfl: Isosorbide mononitrate 60 MG Tab SR 24 HR tablet XL, Take 1 tablet by mouth daily., Disp: , Rfl: levoFLOXacin 750 MG tablet, TAKE 1 TABLET BY MOUTH ONCE DAILY FOR 7 DAYS, Disp: , Rfl: lisinopril 40 MG tablet, Take 1 tablet by mouth daily., Disp: , Rfl: Meloxicam 15 MG tablet, Take 1 tablet by mouth daily., Disp: , Rfl: Metoprolol succinate 100 MG tablet XL, TAKE 1 TABLET BY MOUTH ONCE DAILY DIRECTED, Disp: , Rfl: nitroGLYCERIN 0.4 MG tablet SL, DISSOLVE ONE TABLET UNDER THE TONGUE EVERY 5 MINUTES NEEDED FOR CHEST PAIN. DO NOT EXCEED A TOTAL OF 3 DOSES IN 15 MINUTES, Disp: , Rfl: oxyCODONE-acetaminophen 5-325 MG per tablet, TAKE 1 TABLET BY MOUTH THREE TIMES DAILY NEEDED FOR LUMBAR RADICULOPATHY., Disp: , Rfl: Pantoprazole [address] tablet DR, Take 1 tablet by mouth 2 times daily., Disp: , Rfl: Pregabalin 50 MG capsule, Take 1 capsule by mouth 2 times daily., Disp: , Rfl: SV Iron 325 MG tablet, Take 1 tablet by mouth 2 times daily., Disp: , Rfl: No family history on file. Social History Tobacco Use Smoking status: Never Smokeless tobacco: Never Substance Use Topics Alcohol use: Yes No past surgical history on file. Vitals: 02/25/23 0848 Weight: 74.8 kg (165 lb) Height: 1.676 m (5' 6 ) Constitutional No fevers, chills or sweats, unintentional weight gain or weight loss, night pain, or night sweats except as per HPI. Cardiovascular No recent chest pain or palpitations. No claudication. No new or worsening lower extremity edema except as per HPI. Respiratory No new or worsening shortness of breath, dyspnea on exertion, orthopnea or paroxysmal nocturnal dyspnea except as per HPI. Gastrointestinal No recent heartburn or stomach upset, no history of ulcers except as per HPI. Musculoskeletal No joint pain, stiffness, or weakness except as per HPI. Endocrine No polyphagia, polydypsia, or polyuria. Hematologic No known or recent anemia, no excessive bleeding. Rheumatologic No history or currently active autoimmune or rheumatologic disease except as per HPI. Integumentary No new or relevant rashes or lesions except as per HPI. Neurologic No numbness, tingling, or weakness into her distal extremities except as per HPI. Constitutional Normal No acute distress. Well nourished. Well developed. Head/Face Normal Facial features - Normal. Eyebrows - Normal. Skull - Normal. Hair and scalp - Normal. Eyes Normal General - Right: Normal, Left: Normal. Lids/external - Right: Normal, Left: Normal. Conjunctiva - Right: Normal, Left: Normal. Ears Normal Inspection - Right: Normal, Left: Normal. Pinna - Right: Normal, Left: Normal. Nasopharynx Normal External nose - Normal. Nares - Right: Normal. Nasal Mucosa - Normal. Lips/teeth/gums - Normal. Buccal mucosa - Normal. Neck Exam Normal Inspection - Normal. Range of motion - Normal. Neck Exam Comments Supple. Respiratory Normal Inspection - Normal. Cough - Absent. Effort - Normal. Cardiovascular Normal Heart rate - Regular rate. Vascular Normal Pulses - Radial: Normal, Brachial: Normal, Dorsalis pedis: Normal, Posterior tibial: Normal. Capillary refill - Less than 2 seconds. Skin * Rash - Description: none. Extremity Normal No Edema. No Calf tenderness. Diabetic Foot Screen Normal Pulses - Dorsalis pedis: Normal, Posterior tibial: Normal. Neurological Normal Level of consciousness - Normal. Orientation - Normal. Memory - Normal. Psychiatric Normal No agitation. Appropriate mood and affect. Appropriate affect. Normal insight. Normal judgment. Lumbar spine Inspection: No erythema, ecchymosis, swelling or deformity. No open wounds. Normal lumbar lordosis. No evidence of marked scoliosis. Palpation: Non-tender to the spinous processes, paraspinals. Tender to Left SI joint. ROM: moderate limitation in flexion, extension, lateral bending and rotation. Strength: 5/5 and symmetric bilateral hip flexion, knee flexion/extension, ankle dorsiflexion/plantar flexion and EHL Sensation: Intact and symmetric to soft touch for the bilateral L3-S1 dermatomes. Reflexes: Intact and symmetric bilateral patellar and Achilles. Special Maneuvers: Negative straight leg raise and crossover sign. Positive CONOR Positive SHIRLEY Positive THIGH THRUST Positive GAENSLAEN Vascular: Intact and symmetric dorsalis pedis and posterior tibial pulses. Notes reviewed from Dr Shaheen Chappell 01/08/2023 History obtained from patient. ASSESSMENT and PLAN 1. Osteoarthritis of left sacroiliac joint 2. Lumbar spondylosis 3. Lower extremity numbness After exam and discussion, I feel that Noel would benefit from returning to the office for a Sports US guided left sacroiliac joint injection with CHICKEN HANGER. Noel may call the office with any questions or concerns. Referrals:None Medications prescribed today: None Follow up plan: Sports US guided left sacroiliac joint injection with CHICKEN HANGER Complexity of problem(s): Mild Risk of morbidity from additional testing or treatment: Low We discussed the natural history of this problem and usual treatments. We discussed possible treatment options including conservative, aggressive, invasive and non-invasive. These options were explained in detail. The patient and/or guardian agreed with the above assessment and plan. Differential diagnoses of back pain were considered including but not limited to degenerative change, internal derangement, fracture and any other severely limiting injury. Referred by: Dr Shaheen Chappell Chief Complaint Patient presents with Lower Back - Pain, New Patient HPI 62 year old male comes in today for new patient visit for lower back pain. Patient states that his pain started a long time ago. Patient states that he a back surgery back in 1994 and his pain is in the same spot. Patient states his pain is numb, cold, tingles, hurts, and can't hardly walk. Patient states on of the doctor mentioned he may have scar tissue. Patient states that he has had injections in the past and they helped for a bit and he has also has his nerves burnt. Noel has attended therapy in the past. Location: Lower back Quality: Numb, cold, tingling, hurts, cant hardly walk Duration: long time NSAIDs? No Analgesics? Oxycodone Other pain modalities? Heat, ice, Biofreeze Physical therapy? previously Chiropractic? No, and it wont help Injections? Yes, help for bit Xrays? Yes, brought disc MRI? yes CT? unsure Bowel or bladder dysfunction? Starting to he believes Numbness or tingling? Both legs for 3 to 4 months now Weakness? 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: amLODIPine 10 MG tablet, Take 1 tablet by mouth daily every morning., Disp: , Rfl: Atorvastatin 20 MG tablet, Take 1 tablet by mouth daily every morning., Disp: , Rfl: Cholecalciferol (Vitamin D3) 50 MCG (1999) tablet, Take 1 tablet by mouth daily., Disp: , Rfl: Isosorbide mononitrate 60 MG Tab SR 24 HR tablet XL, Take 1 tablet by mouth daily., Disp: , Rfl: levoFLOXacin 750 MG tablet, TAKE 1 TABLET BY MOUTH ONCE DAILY FOR 7 DAYS, Disp: , Rfl: lisinopril 40 MG tablet, Take 1 tablet by mouth daily., Disp: , Rfl: Meloxicam 15 MG tablet, Take 1 tablet by mouth daily., Disp: , Rfl: Metoprolol succinate 100 MG tablet XL, TAKE 1 TABLET BY MOUTH ONCE DAILY DIRECTED, Disp: , Rfl: nitroGLYCERIN 0.4 MG tablet SL, DISSOLVE ONE TABLET UNDER THE TONGUE EVERY 5 MINUTES NEEDED FOR CHEST PAIN. DO NOT EXCEED A TOTAL OF 3 DOSES IN 15 MINUTES, Disp: , Rfl: oxyCODONE-acetaminophen 5-325 MG per tablet, TAKE 1 TABLET BY MOUTH THREE TIMES DAILY NEEDED FOR LUMBAR RADICULOPATHY., Disp: , Rfl: Pantoprazole [address] tablet DR, Take 1 tablet by mouth 2 times daily., Disp: , Rfl: Pregabalin 50 MG capsule, Take 1 capsule by mouth 2 times daily., Disp: , Rfl: SV Iron 325 MG tablet, Take 1 tablet by mouth 2 times daily., Disp: , Rfl: No family history on file. Social History Tobacco Use Smoking status: Never Smokeless tobacco: Never Substance Use Topics Alcohol use: Yes No past surgical history on file. Vitals: 02/25/23 0848 Weight: 74.8 kg (165 lb) Height: 1.676 m (5' 6 ) Constitutional No fevers, chills or sweats, unintentional weight gain or weight loss, night pain, or night sweats except as per HPI. Cardiovascular No recent chest pain or palpitations. No claudication. No new or worsening lower extremity edema except as per HPI. Respiratory No new or worsening shortness of breath, dyspnea on exertion, orthopnea or paroxysmal nocturnal dyspnea except as per HPI. Gastrointestinal No recent heartburn or stomach upset, no history of ulcers except as per HPI. Musculoskeletal No joint pain, stiffness, or weakness except as per HPI. Endocrine No polyphagia, polydypsia, or polyuria. Hematologic No known or recent anemia, no excessive bleeding. Rheumatologic No history or currently active autoimmune or rheumatologic disease except as per HPI. Integumentary No new or relevant rashes or lesions except as per HPI. Neurologic No numbness, tingling, or weakness into her distal extremities except as per HPI. Constitutional Normal No acute distress. Well nourished. Well developed. Head/Face Normal Facial features - Normal. Eyebrows - Normal. Skull - Normal. Hair and scalp - Normal. Eyes Normal General - Right: Normal, Left: Normal. Lids/external - Right: Normal, Left: Normal. Conjunctiva - Right: Normal, Left: Normal. Ears Normal Inspection - Right: Normal, Left: Normal. Pinna - Right: Normal, Left: Normal. Nasopharynx Normal External nose - Normal. Nares - Right: Normal. Nasal Mucosa - Normal. Lips/teeth/gums - Normal. Buccal mucosa - Normal. Neck Exam Normal Inspection - Normal. Range of motion - Normal. Neck Exam Comments Supple. Respiratory Normal Inspection - Normal. Cough - Absent. Effort - Normal. Cardiovascular Normal Heart rate - Regular rate. Vascular Normal Pulses - Radial: Normal, Brachial: Normal, Dorsalis pedis: Normal, Posterior tibial: Normal. Capillary refill - Less than 2 seconds. Skin * Rash - Description: none. Extremity Normal No Edema. No Calf tenderness. Diabetic Foot Screen Normal Pulses - Dorsalis pedis: Normal, Posterior tibial: Normal. Neurological Normal Level of consciousness - Normal. Orientation - Normal. Memory - Normal. Psychiatric Normal No agitation. Appropriate mood and affect. Appropriate affect. Normal insight. Normal judgment. Lumbar spine Inspection: No erythema, ecchymosis, swelling or deformity. No open wounds. Normal lumbar lordosis. No evidence of marked scoliosis. Palpation: Non-tender to the spinous processes, paraspinals. Tender to Left SI joint. ROM: moderate limitation in flexion, extension, lateral bending and rotation. Strength: 5/5 and symmetric bilateral hip flexion, knee flexion/extension, ankle dorsiflexion/plantar flexion and EHL Sensation: Intact and symmetric to soft touch for the bilateral L3-S1 dermatomes. Reflexes: Intact and symmetric bilateral patellar and Achilles. Special Maneuvers: Negative straight leg raise and crossover sign. Positive CONOR Positive SHIRLEY Positive THIGH THRUST Positive GAENSLAEN Vascular: Intact and symmetric dorsalis pedis and posterior tibial pulses. Notes reviewed from Dr Shaheen Chappell 01/08/2023 History obtained from patient. ASSESSMENT and PLAN 1. Osteoarthritis of left sacroiliac joint 2. Lumbar spondylosis 3. Lower extremity numbness After exam and discussion, I feel that Noel would benefit from returning to the office for a Sports US guided left sacroiliac joint injection with CHICKEN HANGER. Noel may call the office with any questions or concerns. Referrals:None Medications prescribed today: None Follow up plan: Sports US guided left sacroiliac joint injection with CHICKEN HANGER Complexity of problem(s): Mild Risk of morbidity from additional testing or treatment: Low We discussed the natural history of this problem and usual treatments. We discussed possible treatment options including conservative, aggressive, invasive and non-invasive. These options were explained in detail. The patient and/or guardian agreed with the above assessment and plan. Differential diagnoses of back pain were considered including but not limited to degenerative change, internal derangement, fracture and any other severely limiting injury. I have reviewed, edited and added to the above note and agree with those findings. Additions if any: Jennie Hernandez MD, [facility] Manager Business Banking - [facility] documented in this encounter [facility] 12-31-2022 History of Present illness Narrative Grill Cook reviewed discharge instructions with patient. No new medications ordered. Patient aware of follow up appointment. Patient instructed on cardiac diet. Patient denies questions. Copy of discharge instructions given to patient. Met with Patient this p.m. to discuss discharge planning. Patient is a 62 year old single, white male, admitted with a diagnosis of Atypical Chest Pain. Patient is alert and oriented, polite and cooperative with this assessment. States that he wishes to return home following this hospitalization. Patient resides in [place] alone. He uses no DME and has no outside resources or services currently in place. 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 He is independent with all activities of daily living. Patient drives himself and provides for his own transportation needs. PCP is Romario Man. Patient has medical insurance and reports that he has no difficulty with regards to affording his prescription medications at this point. Discharge plan is home when stable. Patient is a 'Full Code' status and he voices no interest in pursuing medical directives at present. Patient identifies no unmet or anticipated discharge planning needs or concerns. He designates his daughter, Priscilla, as his decision maker if needed. CARGO WORKER to monitor and assist with any further needs as they present. BRIDGETTE Lai 12/31/2022 Afternoon assessment completed at this time. Pt sitting up in bed. Respirations even and unlabored while on room air. Pt denies need to void at this time. Pt denies needs at this time. Call light in reach. Care ongoing. Instructed on objectives and procedure of lexiscan/cardiolite stress test. Pt taken by wheelchair for stress test. Patient leaving for testing at this time Progress Note SUBJECTIVE: Patient seen for f/u of Atypical chest pain. He resting in bed no further complaints. Awaiting Stress Test today ROS: Constitutional: negative for fevers, and negative for chills. Respiratory: negative for shortness of breath, negative for cough, and negative for wheezing Cardiovascular: negative for chest pain, and negative for palpitations Gastrointestinal: negative for abdominal pain, negative for nausea,negative for vomiting, negative for diarrhea, and negative for constipation All other systems were reviewed with the patient and are negative unless otherwise stated in HPI OBJECTIVE: Vitals: Vitals: 12/31/22 0846 BP: 112/84 Pulse: Resp: Temp: SpO2: Weight: 156 lb 15.5 oz (71.2 kg) Height: 5' 6 (167.6 cm) Weight Wt Readings from Last 3 Encounters: 12/31/22 156 lb 15.5 oz (71.2 kg) 03/25/22 158 lb 3.2 oz (71.8 kg) 03/09/21 158 lb (71.7 kg) Body mass index is 25.34 kg/m . 24HR INTAKE/OUTPUT: Intake/Output Summary (Last 24 hours) at 12/31/2022 0921 Last data filed at 12/31/2022 0235 Gross per 24 hour Intake 300 ml Output 500 ml Net -200 ml Exam: GEN: Awake, alert and oriented x3. EYES: EOMI, pupils equal NECK: Supple. No lymphadenopathy. No carotid bruit CVS: regular rate and rhythm, no audible murmur PULM: CTA, no wheezes, rales or rhonchi, no acute respiratory distress ABD: Bowels sounds normal. Abdomen is soft. No distention. no tenderness to palpation. EXT: no edema bilaterally . No calf tenderness. NEURO: Moves all extremities. Motor and sensory are grossly intact SKIN: No rashes. No skin lesions. Diagnostic Data: Complete Blood Count: Recent Labs 12/30/22 0620 12/31/22 0630 WBC 10.1 6.8 RBC 4.34 4.33 HGB 13.8 13.5 HCT 39.6* 40.4* MCV 91.2 93.3 MCH 31.8 31.2 MCHC 34.8 33.4 RDW 13.5 13.9 PLT 189 190 MPV 9.9 10.1 Last 3 Blood Glucose: Recent Labs 12/30/22 0620 12/31/22 0630 GLUCOSE 113* 103* Comprehensive Metabolic Profile: Recent Labs 12/30/22 0620 12/31/22 0630 NA 139 140 K 3.9 4.3 CL 105 106 CO2 24 25 BUN 16 27* CREATININE 0.63* 0.70 GLUCOSE 113* 103* CALCIUM 9.5 9.5 PROT 7.0 -- LABALBU 3.9 -- BILITOT 0.8 -- ALKPHOS 102 -- AST 16 -- ALT 19 -- Urinalysis: Lab Results Component Value Date/Time NITRU NEGATIVE 07/18/2020 08:25 AM COLORU YELLOW 07/18/2020 08:25 AM PHUR 7.0 07/18/2020 08:25 AM WBCUA 0 TO 2 07/18/2020 08:25 AM RBCUA None 07/18/2020 08:25 AM MUCUS NOT REPORTED 07/18/2020 08:25 AM TRICHOMONAS NOT REPORTED 07/18/2020 08:25 AM YEAST NOT REPORTED 07/18/2020 08:25 AM BACTERIA NOT REPORTED 07/18/2020 08:25 AM SPECGRAV 1.020 07/18/2020 08:25 AM LEUKOCYTESUR NEGATIVE 07/18/2020 08:25 AM UROBILINOGEN Normal 07/18/2020 08:25 AM BILIRUBINUR NEGATIVE 07/18/2020 08:25 AM GLUCOSEU NEGATIVE 07/18/2020 08:25 AM KETUA 1+ 07/18/2020 08:25 AM AMORPHOUS NOT REPORTED 07/18/2020 08:25 AM HgBA1c: Lab Results Component Value Date/Time LABA1C 6.0 03/25/2022 11:19 AM Lactic Acid: No results found for: LACTA Troponin: No results for input(s): TROPONINI in the last 72 hours. CRP: No results for input(s): CRP in the last 72 hours. Radiology/Imaging: CT CHEST PULMONARY EMBOLISM W CONTRAST Final Result Negative for acute pulmonary embolus Right-sided aortic arch Bilateral patchy pulmonary infiltrates which are predominantly peripheral which may be related atypical infectious etiology. Large hiatal hernia and wall thickening in the distal esophagus. An esophagram or endoscopy may be helpful for further evaluation if clinically indicated. XR CHEST PORTABLE Final Result There is a new left midlung opacity and adjacent mildly prominent interstitial markings, suggestive of pneumonia. Recommend imaging follow-up to resolution to exclude an underlying lesion. ASSESSMENT / PLAN: MEDICAL DECISION MAKING: Primary Problem(s): Atypical chest pain Differential diagnoses: Unstable angina, viral illness, pulmonary emboli Condition is an undiagnosed new problem with uncertain prognosis Condition is stable Treatment plan: Consultation: Cardiology Imaging: Echo-normal Tress test today Medications: Continue aspirin, Lipitor, Imdur, Toprol XL Medication Monitoring / High Risk Medications: none Viral syndrome Condition is stable Treatment plan: Continue current treatment Imaging: no further imaging studies ordered today Medications: None Viral panel-negative Nutrition status: Well developed, well nourished with no malnutrition Section Leader Screen Printing consult initiated Hospital Prophylaxis: DVT: Lovenox Stress Ulcer: H2 Sarah Disposition: Shared decision making: All test results, treatment options and disposition options were discussed with the patient today Social determinants of health that may impact management: none Code status: Full Code Disposition: Discharge plan is home [facility] Advanced Care Planning documentation: [x] I have confirmed that the patient's Advance Care Plan is present, Code Status is documented, or surrogate decision maker is listed in the patient's medical record [If yes , STOP HERE] [] The patient's Advance Care Plan is NOT present because: [] I confirmed today that the patient does not wish or was not able to name a surrogate decision maker or provide and advance care plan. [] Hospice care is currently being provided or has been provided within the calendar year. [] I did NOT confirm today the presence of an Advance Care Plan or surrogate decision maker documented within the patient's medical record. [DOES NOT SATISFY [facility] PERFORMANCE] Cece Villalobos, AUTUMN - LAST CHALKER , ELECTRON MICROPROBE OPERATOR, SCHOOL STANDARDS COACH-C [facility] 12/31/2022, 9:21 AM Associated attestation - Kendell Camacho MD - 12/31/2022 5:52 PM EDT Images from the original note were not included. [address] , [place], [place], [address] Attestation Patient: Noel Alva Date of Admission: 12/30/2022 6:09 AM Hospital Day # 1 Date of Evaluation: 12/31/2022 I personally evaluated and examined the patient [id number] in conjunction with the PA/SCHOOL STANDARDS COACH and agree with the management and dispostition of the patient. Please see the PA/SCHOOL STANDARDS COACH's note for full details. My argueta findings are: SUBJECTIVE: Patient seen for follow up of Atypical chest pain. Patient seen and examined at the bed side , no new acute events overnight and, no new complains. He states that he is feeling better with no more episodes of chest pain. Notes from nursing staff and Consults had been reviewed, and the overnight progress had been checked with the nursing staff as well. OBJECTIVE: Vitals: Temp: 97.3 F (36.3 C) BP: 102/71 Resp: 16 Heart Rate: 72 SpO2: 92 % Weight Wt Readings from Last 3 Encounters: 12/31/22 156 lb 15.5 oz (71.2 kg) 03/25/22 158 lb 3.2 oz (71.8 kg) 03/09/21 158 lb (71.7 kg) Body mass index is 25.34 kg/m . 24HR INTAKE/OUTPUT: Intake/Output Summary (Last 24 hours) at 12/31/2022 1752 Last data filed at 12/31/2022 1505 Gross per 24 hour Intake 780 ml Output 700 ml Net 80 ml Exam: GEN: Awake, alert and oriented x3. EYES: EOMI, pupils equal NECK: Supple. No lymphadenopathy. No carotid bruit CVS: regular rate and rhythm, no audible murmur PULM: CTA, no wheezes, rales or rhonchi, no acute respiratory distress ABD: Bowels sounds normal. Abdomen is soft. No distention. no tenderness to palpation. EXT: no edema bilaterally . No calf tenderness. NEURO: Moves all extremities. Motor and sensory are grossly intact SKIN: No rashes. No skin lesions. DATA: Complete Blood Count: Recent Labs 12/30/22 0620 12/31/22 0630 WBC 10.1 6.8 RBC 4.34 4.33 HGB 13.8 13.5 HCT 39.6* 40.4* MCV 91.2 93.3 RDW 13.5 13.9 PLT 189 190 Recent Labs 12/30/22 0620 12/31/22 0630 SEGS 71* 62 NEUTROABS 7.15 4.27 LYMPHOPCT 18* 23* LYMPHSABS 1.83 1.58 MONOPCT 9 11 EOSRELPCT 1 3 BASOPCT 1 1 IMMGRAN 0 0 CMP: Lab Results Component Value Date GLUCOSE 103 (H) 12/31/2022 BUN 27 (H) 12/31/2022 CREATININE 0.70 12/31/2022 NA 140 12/31/2022 K 4.3 12/31/2022 CALCIUM 9.5 12/31/2022 CL 106 12/31/2022 CO2 25 12/31/2022 PROT 7.0 12/30/2022 LABALBU 3.9 12/30/2022 BILITOT 0.8 12/30/2022 ALKPHOS 102 12/30/2022 ALT 19 12/30/2022 AST 16 12/30/2022 UA: Lab Results Component Value Date COLORU YELLOW 07/18/2020 SPECGRAV 1.020 07/18/2020 WBCUA 0 TO 2 07/18/2020 RBCUA None 07/18/2020 EPITHUA 0 TO 2 07/18/2020 LEUKOCYTESUR NEGATIVE 07/18/2020 GLUCOSEU NEGATIVE 07/18/2020 KETUA 1+ (A) 07/18/2020 PROTEINU NEGATIVE 07/18/2020 HGBUR NEGATIVE 07/18/2020 CASTUA NOT REPORTED 07/18/2020 CRYSTUA NOT REPORTED 07/18/2020 BACTERIA NOT REPORTED 07/18/2020 YEAST NOT REPORTED 07/18/2020 Lactic Acid: No results found for: LACTA High Sensitivity Troponin: Recent Labs 12/30/22 0620 12/30/22 0810 12/31/22 0630 TROPHS 19 17 18 Radiology/Imaging: CT CHEST PULMONARY EMBOLISM W CONTRAST Final Result Negative for acute pulmonary embolus Right-sided aortic arch Bilateral patchy pulmonary infiltrates which are predominantly peripheral which may be related atypical infectious etiology. Large hiatal hernia and wall thickening in the distal esophagus. An esophagram or endoscopy may be helpful for further evaluation if clinically indicated. XR CHEST PORTABLE Final Result There is a new left midlung opacity and adjacent mildly prominent interstitial markings, suggestive of pneumonia. Recommend imaging follow-up to resolution to exclude an underlying lesion. ASSESSMENT: Principal Problem: Atypical chest pain Active Problems: Viral syndrome Resolved Problems: * No resolved hospital problems. * PLAN: I agree with the plan as outlined in the SCHOOL STANDARDS COACH/PA's note Disposition: Discharge plan is pending Please note that this chart was generated using voice recognition [email or web address] dictation software. Although every effort was made to ensure the accuracy of this automated medical grade shoemaker, some errors in medical grade shoemaker may have occurred. Kendell Camacho MD 12/31/2022 5:52 PM Grill Cook to bedside to complete morning assessment. Upon entry to room, pt sitting up in bed, respirations even and unlabored while on room air. Vitals obtained and assessment completed, see flow sheet for details. Dr Camacho at bedside, reviewed pts blood pressure medications with him, okay to hold Norvasc and Metoprolol this morning. Pt denies needs from administrative underwriter at this time. Call light in reach. Care ongoing. Noted administrative underwriter had not urinated yet this shift. When speaking with patient after waking him up, he stated that he normally does not urinate often. Pt encouraged to attempt to use urinal in bathroom, pt agreeable. Pt urinated 500 ml without difficulty then returned to bed. Pt denies any other needs at this time and has call light within reach. Telemetry patches changed. VS rechecked and pt reassessed at this time. Pt remains A&Ox4. Patient has noted chronic back pain, prn Percocet administered. Pt also made NPO at this time for stress test and is aware of NPO status. Pt denies any other needs at this time and has call light within reach. Will continue to monitor. Pt in bed at this time. VS and assessment as charted. Pt is A&Ox4. No complaints of pain or other issues at this time. Call light and bedside table are within reach, will monitor. Grill Cook offered meds to bed but patient declined. Echocardiogram/Doppler done at bedside. Instructed on policies and procedure. Spoke to cristian Zhao CNP for administrative underwriter to correct home medications. Okay to add: protonix, iron, Mobic, Lisinopril, and Amlodipine. Cardiology consult called to office. When reviewing home medications it was noted that there were some differences in doses of medications. Called [facility] and clarified medications. Will update list and speak to Cece ELI about getting medications corrected. Pt arrived to unit from ER to room 327 for atypical chest pain. Pt moved to bed independently from stretcher. Pt is on room air, respirations even and unlabored. Vitals obtained. Admission assessment completed. Admission navigator completed. Pt oriented to room. Reviewed orders. Pt denies further needs at this time. Call light in reach. Care ongoing. documented in this encounter [employer] Phone: 12-31-2022 Hospital Discharge instructions Ana Gutierres RN - 12/31/2022 5:51 PM EDT As tolerated Ana Gutierres RN - 12/31/2022 5:45 PM EDT Good nutrition is important when healing from an illness, injury, or surgery. Follow any nutrition recommendations given to you during your hospital stay. If you were given an oral nutrition supplement while in the hospital, continue to take this supplement at home. You can take it with meals, in-between meals, and/or before bedtime. These supplements can be purchased at most local grocery stores, pharmacies, and [employer]-stores. If you have any questions about your diet or nutrition, call the hospital and ask for the dietitian. Cardiac: low sodium, low cholesterol, low fat documented in this encounter [employer] Phone: 12-31-2022 Hospital course Narrative Discharge Summary Noel Alva : 1960 Admit date: 12/30/2022 Discharge date: 12/31/2022 Admitting Physician: Kendell Camacho MD Discharge Diagnoses: Principal Problem: Atypical chest pain Active Problems: Viral syndrome Resolved Problems: * No resolved hospital problems. * Hospital Course: Noel Alva is a 62 y.o. male admitted with chest pain. He presented to the ER with complaints of Chest pain. He stated it began on 12/29 in the morning upon awaking. He stated that the took 1 NTG which helped. He described it as sharp in the left chest. No radiation. [place] burning sensation when the chest pain subsided. Coughing makes the pain worse. Stated he did not feel good most of the day and then had a 2nd bout of chest pain. Denied fever but admitted to sweats real bad . Cough is non-productive. No smoking history except marijuana as a younger man. Stated that he drinks 2-3 beers nightly. Denied n/v/d. Denied symptoms. Denied dizziness or syncope. During patient's admission cardiology was consulted stress test was completed. Stress test was negative. No medication changes at this time. Plan will be to discharge home he will follow-up with his pharmacist assistant in [place]. Consultants: Dr. Mohr, cardiology Procedures: Stress Test Complications: none Discharge Condition: fair Exam: GEN: Awake, alert and oriented x3. EYES: EOMI, pupils equal NECK: Supple. No lymphadenopathy. No carotid bruit CVS: regular rate and rhythm, no audible murmur PULM: CTA, no wheezes, rales or rhonchi, no acute respiratory distress ABD: Bowels sounds normal. Abdomen is soft. No distention. no tenderness to palpation. EXT: no edema bilaterally . No calf tenderness. NEURO: Moves all extremities. Motor and sensory are grossly intact SKIN: No rashes. No skin lesions. Significant Diagnostic Studies: Lab Results Component Value Date WBC 6.8 12/31/2022 HGB 13.5 12/31/2022 PLT 190 12/31/2022 Lab Results Component Value Date BUN 27 (H) 12/31/2022 CREATININE 0.70 12/31/2022 NA 140 12/31/2022 K 4.3 12/31/2022 CALCIUM 9.5 12/31/2022 CL 106 12/31/2022 CO2 25 12/31/2022 LABGLOM >60 12/31/2022 Lab Results Component Value Date WBCUA 0 TO 2 07/18/2020 RBCUA None 07/18/2020 EPITHUA 0 TO 2 07/18/2020 LEUKOCYTESUR NEGATIVE 07/18/2020 SPECGRAV 1.020 07/18/2020 GLUCOSEU NEGATIVE 07/18/2020 KETUA 1+ (A) 07/18/2020 PROTEINU NEGATIVE 07/18/2020 HGBUR NEGATIVE 07/18/2020 CASTUA NOT REPORTED 07/18/2020 CRYSTUA NOT REPORTED 07/18/2020 BACTERIA NOT REPORTED 07/18/2020 YEAST NOT REPORTED 07/18/2020 XR CHEST PORTABLE Result Date: 12/30/2022 EXAMINATION: ONE XRAY VIEW OF THE CHEST 12/30/2022 6:43 am COMPARISON: 03/25/2022 chest radiograph HISTORY: ORDERING SYSTEM PROVIDED HISTORY: chest pain TECHNOLOGIST PROVIDED HISTORY: chest pain FINDINGS: The cardiomediastinal silhouette is within normal limits of size. There is a new left midlung opacities suggestive of pneumonia. Mildly prominent bilateral interstitial markings. No pleural effusion at or pneumothorax. No acute osseous abnormality. There is a new left midlung opacity and adjacent mildly prominent interstitial markings, suggestive of pneumonia. Recommend imaging follow-up to resolution to exclude an underlying lesion. CT CHEST PULMONARY EMBOLISM W CONTRAST Result Date: 12/30/2022 EXAMINATION: CTA OF THE CHEST 12/30/2022 8:47 am TECHNIQUE: CTA of the chest was performed after the administration of intravenous contrast. Multiplanar reformatted images are provided for review. MIP images are provided for review. Automated exposure control, iterative reconstruction, and/or weight based adjustment of the mA/kV was utilized to reduce the radiation dose to as low as reasonably achievable. COMPARISON: None. HISTORY: ORDERING SYSTEM PROVIDED HISTORY: chest pain TECHNOLOGIST PROVIDED HISTORY: chest pain Decision Support Exception - unselect if not a suspected or confirmed emergency medical condition->Emergency Medical Condition (MA) FINDINGS: Pulmonary Arteries: Pulmonary arteries are adequately opacified for evaluation. No evidence of intraluminal filling defect to suggest pulmonary embolism. Main pulmonary artery is normal in caliber. Mediastinum: There is a right-sided aortic arch. There is wall thickening in the esophagus with large hiatal hernia the Lungs/pleura: There are bilateral patchy pulmonary infiltrates which are predominantly peripheral. There is a calcified granuloma in the anterior aspect of the right lung. No pleural effusion or pneumothorax is seen. Upper Abdomen: Limited images of the upper abdomen are unremarkable. Soft Tissues/Bones: No acute bone or soft tissue abnormality. Negative for acute pulmonary embolus Right-sided aortic arch Bilateral patchy pulmonary infiltrates which are predominantly peripheral which may be related atypical infectious etiology. Large hiatal hernia and wall thickening in the distal esophagus. An esophagram or endoscopy may be helpful for further evaluation if clinically indicated. Assessment and Plan: Patient Active Problem List Diagnosis Date Noted S/P cardiac cath-Patent LAD stent 01/12/18 -Dr. mccarthy 01/12/2018 Atypical chest pain 12/30/2022 Viral syndrome 12/30/2022 Acute gout of right wrist 03/09/2021 Unstable angina (HCC) 01/10/2018 Mild intermittent asthma without complication 01/10/2018 Coronary artery disease due to lipid rich plaque 01/10/2018 Discharge Medications: Medication List CHANGE how you take these medications atorvastatin 20 MG tablet Commonly known as: LIPITOR Take 1 tablet by mouth nightly What changed: medication strength how much to take isosorbide mononitrate 60 MG extended release tablet Commonly known as: IMDUR What changed: Another medication with the same name was removed. Continue taking this medication, and follow the directions you see here. pantoprazole 40 MG tablet Commonly known as: PROTONIX What changed: Another medication with the same name was removed. Continue taking this medication, and follow the directions you see here. CONTINUE taking these medications acetaminophen 325 MG tablet Commonly known as: Tylenol Take 2 tablets by mouth every 8 hours as needed for Pain albuterol sulfate HFA 108 (90 Base) MCG/ACT inhaler Commonly known as: PROVENTIL;VENTOLIN;PROAIR amLODIPine 10 MG tablet Commonly known as: NORVASC aspirin 81 MG chewable tablet Take 1 tablet by mouth daily FeroSul 325 (65 Fe) MG tablet Generic drug: ferrous sulfate ibuprofen 800 MG tablet Commonly known as: IBU Take 1 tablet by mouth every 8 hours as needed for Pain lisinopril 40 MG tablet Commonly known as: PRINIVIL;ZESTRIL meloxicam 15 MG tablet Commonly known as: MOBIC metoprolol succinate 100 MG extended release tablet Commonly known as: TOPROL XL nitroGLYCERIN 0.4 MG SL tablet Commonly known as: NITROSTAT up to max of 3 total doses. If no relief after 1 dose, call 911. oxyCODONE-acetaminophen 5-325 MG per tablet Commonly known as: PERCOCET pregabalin 50 MG capsule Commonly known as: LYRICA tiZANidine 4 MG tablet Commonly known as: ZANAFLEX Take 1 tablet by mouth every 8 hours as needed (Neck pain) Vitamin D3 50 MCG (1999 UT) Tabs STOP taking these medications dicyclomine 10 MG capsule Commonly known as: Bentyl Where to Get Your Medications These medications were sent to [address], [facility] [address] - P [phone] - F [phone] [address], [facility] [id number] atorvastatin 20 MG tablet Patient Instructions: Activity: activity as tolerated Diet: cardiac diet Wound Care: none needed Other: None Disposition: Discharge to Home Follow up: Patient will be followed by Romario Man MD in 1-2 weeks CORE MEASURES on Discharge (if applicable) BRITNTY/ARB in CHF: NA Statin in MD: NA ASA in MD: NA Statin in CVA: NA Antiplatelet in CVA: NA Total time spent on discharge services: 40 minutes Including the following activities: Evaluation and Management of patient Discussion with patient and/or surrogate about current care plan Coordination with Case Management and/or Pain Medicine Physician Coordination of care with Consultants (if applicable) Coordination of care with Receiving Facility Physician (if applicable) Completion of DME forms (if applicable) Preparation of Discharge Summary Preparation of Medication Reconciliation Preparation of Discharge Prescriptions Signed: Cece Villalobos APRN - [place], AUTUMN, SCHOOL STANDARDS COACH-C 12/31/2022, 5:06 PM Associated attestation - Kendell Camacho MD - 12/31/2022 5:53 PM EDT Images from the original note were not included. [address], [address] Attestation Patient: Noel Alva Date of Admission: 12/30/2022 6:09 AM Hospital Day # 1 Date of Evaluation: 12/31/2022 I personally evaluated and examined the patient [id number] in conjunction with the PA/SCHOOL STANDARDS COACH and agree with the management and dispostition of the patient. Please see the PA/SCHOOL STANDARDS COACH's note for full details. My argueta findings are: Admission date: 12/30/2022 Discharge date: 12/31/2022 Principle Diagnosis: Atypical chest pain Exam: GEN: Awake, alert and oriented x3. EYES: EOMI, pupils equal NECK: Supple. No lymphadenopathy. No carotid bruit CVS: regular rate and rhythm, no audible murmur PULM: CTA, no wheezes, rales or rhonchi, no acute respiratory distress ABD: Bowels sounds normal. Abdomen is soft. No distention. no tenderness to palpation. EXT: no edema bilaterally . No calf tenderness. NEURO: Moves all extremities. Motor and sensory are grossly intact SKIN: No rashes. No skin lesions. Disposition: Discharge to Home Follow Up: Follow up with Romario Man MD in 1-2 weeks Total time spent on discharge services: 40 minutes Including the following activities: Evaluation and Management of patient Discussion with patient and/or surrogate about current care plan Coordination with Case Management and/or Pain Medicine Physician Coordination of care with Consultants (if applicable) Coordination of care with Receiving Facility Physician (if applicable) Completion of DME forms (if applicable) Preparation of Discharge Summary Preparation of Medication Reconciliation Preparation of Discharge Prescriptions If there are any worsening or concerning signs or symptoms, patient will report to the ED and/or contact [phone] for immediate evaluation. Teach back method was used. All patient questions answered. Pt voiced understanding. Please note that this chart was generated using voice recognition [email or web address] dictation software. Although every effort was made to ensure the accuracy of this automated medical grade shoemaker, some errors in medical grade shoemaker may have occurred. Kendell Camacho MD 12/31/2022 5:53 PM documented in this encounter [employer] Work Phone: 11-14-2022 Note CONSULTATION CONSULTATION DATE: 11/14/2022 HISTORY OF PRESENT ILLNESS: This is a 62-year-old gentleman, who was brought back to the clinic today to review MRI for a new plan of care. He was last seen on 10/18/2022 which, at that time, he was continuing to have increasing lower back pain, achiness and radiculopathy. He has noticed increased weakness to bilateral lower legs. He denies any trips or falls or foot drop. 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 He did have to take two days off of work last week, which his very unlike him. He had trouble getting out of bed due to increased pain. He is prescribed Big Arm 5/325 t.i.d., but due to pain, patient did overuse them and was forthcoming with that. Other medications include Lyrica 50 mg b.i.d., Mobic 50 mg daily, tizanidine 4 mg at h.s. and omeprazole. Patient did have a recent EGD done to rule out gastric ulcers and the results found no acute findings. Patient does report any physical activity or movement increases his pain. Radicular pain does extend along multiple dermatomes to the feet bilaterally. He does walk unassisted. In reviewing the MRI shows advanced changes to degenerative discs, bilateral neural foraminal narrowing at multiple levels, as well as spinal canal stenosis. Patient's REVIEW OF SYSTEMS / PAST MEDICAL HISTORY / ALLERGIES and IMAGES have been reviewed and noted on the chart. PHYSICAL EXAM: FOCUSED EXAM - BACK: Range of motion is guarded in lateral rotation and flexion/extension. Point tenderness along the lower lumbar facets of L2, L3 and L4, L5 to S1 bilaterally. Conor's point mildly tender on the right. Negative FABERs and compression test.. Bilateral paravertebral muscles are taut but non-spasmodic. NEUROLOGICALLY: Diffuse polyneuropathy along L3, L4, L5 and S1 distribution to the feet. Bilateral lower extremity reflexes are blunted. MUSCULOSKELETAL: Patient does walk unassisted with a stable, antalgic gait. Vasomotor weakness noted to bilateral anterior tibialis. Extensors are intact. Diffuse muscle atrophy noted bilaterally. DIAGNOSIS: Lumbar spinal canal stenosis, lumbar degenerative disc disease, lumbar radiculopathy, lumbar spondylosis. PLAN: Patient brought his Big Arm in today for a pill count. We will change his medication to Percocet 5/325 t.i.d. and increase his Lyrica to 100 mg b.i.d. I did recommend a Neurosurgery referral, which the patient does agree to. We will send a referral to Dr. Shaheen Chappell at [facility] in [place]. We will continue to manage his medications at this time, and we will see him in the clinic in three months. Patient agrees with this plan. [facility] 10-16-2022 Note CONSULTATION CONSULTATION DATE: 10/16/2022 HISTORY OF PRESENT ILLNESS: This is a 62-year-old gentleman who returns to the clinic for a two month follow up for increasing lower back pain and post lumbar epidural steroid injection. This was completed on 09/24/2022 and gave him 100% relief for eight hours only. He is having increased pain today. He rates it between 5 and 6/10. He reports that all physical activity, with the exception of sitting, increases his lower back pain. He feels his balance is worse and feels he has difficulty walking. He has the sensation of coolness, numbness and tingling to bilateral lower extremities. His skin is warm and dry to touch. The patient has had Doppler studies in the past to check perfusion and there have been no acute findings. Patient does walk unassisted and does not use a cane. His current medications include Big Arm 5/325 b.i.d. and Aleve p.r.n. He has been prescribed tizanidine at h.s. but he has not been taking it. The patient does wake up typically between 3:00 and 3:30 in the morning to go to work and goes to bed around 7:00 p.m. He is apprehensive with the tizanidine, feeling that he would not be able to wake up on time. Patient's REVIEW OF SYSTEMS / PAST MEDICAL HISTORY / ALLERGIES and IMAGES have been reviewed and noted in the chart. PHYSICAL EXAM: VITAL SIGN: Blood pressure is 128/77. Heart rate is 80. Temperature is 98.6. He is 5'6 , weighs 74.8 kg. GENERAL IMPRESSION: Pleasant, appropriate, notably uncomfortable sitting in the chair. FOCUSED EXAM - BACK: Range of motion is guarded in lateral rotation and flexion/extension. Paravertebral muscles are taut but no triggers identified. No spinal axial pain is reproduced upon deep compression along the lumbar facets. Conor's point mildly tender bilaterally. Negative FABERs and compression test. MUSCULOSKELETAL: Slight muscle atrophy noted diffusely bilateral hamstrings and anterior tibialis. NEUROLOGICALLY: Stocking distribution hypoesthesia noted between L3-L5 distribution, as well as S1. Patient has blunted bilateral patellar reflexes. He is cognitively intact. DIAGNOSIS: Lumbar radiculopathy, lumbar spinal canal stenosis with neurogenic claudication, lumbar degenerative disc disease and lumbar spondylosis. PLAN: Due to his increased pain and lack of recent imaging, we will obtain a lumbar MRI without contrast. For the next three days, we will increase his Big Arm 5/325 to t.i.d. We will start also Lyrica 50 mg b.i.d. He was instructed to take it at approximately 0400 and 1600 due to his altered sleep and work pattern. If this medication is denied per insurance, we will then revert to gabapentin 300 mg b.i.d. Patient will be brought to the office following his MRI to go over with the patient and for re-evaluation of the efficacy of his medication. Patient does agree with this plan. [facility] 08-22-2022 Note CONSULTATION CONSULTATION DATE: 08/22/2022 HISTORY OF PRESENT ILLNESS: This is a 61-year-old male returning to the clinic for a three month follow up for his chronic lower back pain. Historically, the patient has received lumbar epidural steroid injections with good response. He rates his pain 4/10 at rest today, but increases to 7/10 with sitting, standing, walking and any physical activity. Patient feels bilateral radiating pain and hypoesthesia has progressed. 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 He denies any recent falls or injury, but after getting off the tow motor, he does feel bilateral leg weakness. Medications include Mobic 15 mg daily, Big Arm 5/325 b.i.d. and tizanidine 4 mg q.h.s. Patient's REVIEW OF SYSTEMS / PAST MEDICAL HISTORY / ALLERGIES and IMAGES have been reviewed and they are noted on the chart. PHYSICAL EXAM: VITAL SIGNS: Blood pressure 123/76, heart rate is 74. Temperature is 97.8. GENERAL IMPRESSION: Pleasant, appropriate, no acute distress. FOCUSED EXAM - BACK: Range of motion is functional in lateral rotation and flexion/extension. No spinal axial pain upon facet compression. Paravertebral muscles are taut bilaterally. Conor's point mildly tender, right greater than left. MUSCULOSKELETAL: Motor is intact, 4/5 bilaterally. Left hamstring weakness and right anterior tibialis weakness noted. Patient has a stable gait, does not use assistive device. Right thumb CMC joint edematous and tender with decreased range of motion. NEUROLOGICALLY: Diffuse polyneuropathy to bilateral lower extremities. Blunted reflexes bilaterally. DIAGNOSIS: Lumbar radiculitis, chronic lower back pain and right CMC joint osteoarthritis. PLAN: We will proceed with a lumbar epidural steroid injection to address his radicular pain. He is to continue with heat and a menthol rub. We will maintain his Big Arm 5/325 b.i.d. and he was instructed to use Voltaren to hi right CMC joint. Patient agrees with the plan of care and will be followed up in the office thereafter. [facility] 06-26-2022 Note OPERATIVE NOTE OPERATION DATE: 06/26/2022 PREOPERATIVE DIAGNOSIS: Iron deficiency anemia, hematemesis, epigastric abdominal pain. POSTOPERATIVE DIAGNOSIS: Antral gastritis, sliding type hiatal hernia, sigmoid diverticulosis as well as small sigmoid polyp. PROCEDURE: EGD with antral biopsy and colonoscopy to cecum with cold forceps polypectomy x1 for sigmoid polyp. SURGEON: Julian Diaz M.D. ANESTHESIA: Monitored anesthesia care. ESTIMATED BLOOD LOSS: Less than 1 mL. INDICATIONS AND CONSENT: Patient is a 61-year-old male with history of epigastric abdominal pain, intermittent episodes of hematemesis, as well as iron deficiency anemia. Indications, risks, benefits, alternatives of proceeding with EGD and colonoscopy were explained extensively to the patient, including the risks of bleeding, aspiration, esophageal/gastric/colonic perforation or anesthetic complications. All of his questions were answered. Informed consent was obtained. PROCEDURE: Patient brought to the operating room, placed in the left lateral decubitus position. Monitored anesthesia care was provided. Bite block was placed in the patient's mouth. Scope was inserted into the oropharynx. Under direct visualization, it was advanced into the esophagus, past the cricopharyngeus, down to the stomach. The stomach was insufflated with air. The pylorus was traversed down to the descending portion of the duodenum. There was no evidence of blood, mass or ulceration. There was no scarring within the pyloric channel. There was no evidence of old or new blood. Within the antrum, there was noted to be a linear antral gastritis without ulceration or bleeding. Biopsy was obtained with cold biopsy forceps with good hemostasis. Scope was retroflexed. There was approximately a 5 cm sliding type hiatal hernia. No other gastric mucosal abnormalities. The GE junction was noted at approximately 35 cm. There were no distal esophagitis or Ascencio's changes. The remainder of the esophagus was unremarkable. The scope was then withdrawn. Patient was then positioned for colonoscopy. Rectal exam was performed which showed no masses or blood. The scope was inserted into the anal canal. Under direct visualization was advanced. It was advanced to the cecum where cecal markings were clearly identified. There was noted to be a good prep. Upon withdrawal of the scope, mucosal surfaces were carefully examined. There were no mass lesions or inflammatory changes. There was moderate sigmoid diverticulosis without inflammatory changes or scarring. At approximately 30 cm, there was noted to be a 3 mm sessile, erythematous polyp that was removed with cold snare with good hemostasis. The scope was retroflexed in the anal canal. There were noted to be prominent rectal veins. No significant hemorrhoidal disease. Scope was then withdrawn. Patient tolerated procedure well, was sent to recovery room in good condition. CC: Romario Man M.D. [facility] 06-01-2022 Note Chief Complaint consultation for iron deficiency anemia HPI Staff 61 year old male presents on consultation from Dr. Man for iron deficiency anemia. Labs completed 09/19/21- HGB 11.9, HCT 36.6. Labs 04/03/22- HGB 12.8, HCT 38.2, Iron 63. Ferrous Sulfate 325mg BID started 05/13. No previous EGD or colonoscopy. Denies abdominal or rectal pain. No rectal bleeding or change in bowel habits. No nausea or vomiting. No unexplained weight loss. Reports extreme fatigue which has improved with iron supplement. Mild SOB. History of Present Illness 61 yo male with h/o CAD, s/p angioplasty/stent; asthma, hyperlipidemia, lumbar DDD, arthritis, referred for iron deficiency anemia; first noted in September; on iron; had increased fatigue; reports intermittent episodes of epigastric pain, occasional hematemesis, no melena or hematochezia, no rectal bleeding, no change in bms; no nausea; no previous abdominal operations or endoscopies; on baby asa and meloxicam daily; no SBE prophylaxis; no fmhx of GI malignancy or IBD; no tobacco use. Review of Systems PHQ Score Initial Depression Screen Score: 0 ROS - Provider Constitutional: no fever, no sweats, no weight loss. Eyes: no glasses, no blurred vision, no visual loss. ENMT: no dentures, no hoarseness, no swallowing difficulties, no hearing loss, no ear infection(s), no nose bleeds. Cardiovascular: normal blood pressure, no chest pain, regular heartbeat, no heart murmur. Respiratory: no shortness of breath, no cough, no asthma, no wheezing. Gastrointestinal: no nausea, no vomiting, no diarrhea, no constipation, no blood in stool, no change in bowel habits, no abdominal pain, no hepatitis. Genitourinary: no kidney stones, no urine infection, no dysuria. Musculoskeletal: no pain, no weakness. Skin: no changing moles, no rash, no skin lumps. Neurologic: no seizures, no epilepsy, no headache. Psychiatric: no emotional or psychiatric problem. Heme/Lymph: no bleeding problems, no anemia, no blood clots, no transfusions. Allergy/Immunologic: no swollen lymph nodes/glands, no IV drug abuse. Other: Additional ROS info: Except as noted in the above Review of Systems and in the History of Present Illness, all other systems have been reviewed and are negative or noncontributory. Physical Exam Vitals & Measurements HR: 66(Peripheral) RR: 16 BP: 108/60 HT: 167.64 cm HT: 167.6 cm WT: 72.8 kg WT: 72.8 kg BMI: 25.9 HEENT: normal conjunctiva, sclera clear, no scleral icterus, EOM intact, PERRLA, oral mucosa moist without lesions. Neck: trachea midline, no mass, symmetric, no thyromegaly or nodules, no adenopathy Respiratory: lungs CTA, respirations non labored. Cardiovascular: regular rate and rhythm, no murmur, no pedal edema or varicosities. Gastrointestinal: soft, non distended, moderate tenderness, epigastrium, no peritoneal signs; no masses, no palpable hernias, diastasis recti no, no hepatosplenomegaly; normal bs Lymphatic: no cervical adenopathy, Musculoskeletal: normal gait, digits and nails without infection, nodes, cyanosis, clubbing. Skin: no rashes, no lesions, no ulcers, no subcutaneous nodules, induration. Psychiatric/Neuro: oriented to time, place, person, judgement normal, affect appropriate for age, insight intact, no focal deficits. Tests: labs reviewed, review of old records completed, Discussed surgical options, risks, and possible complications with patient. Assessment/Plan 1. Iron deficiency anemia (D50.9: Iron deficiency anemia, unspecified) plan EGD and colonoscopy under anesthesia, informed consent obtained. discontinue Meloxicam; patient on Carafate, will add PPI bid for possible ulcer. 2. Epigastric pain (R10.13: Epigastric pain) see # 1 Ordered: pantoprazole, 40 mg = 1 tab(s), Oral, BID, # 90 tab(s), Refills(s) 3, Pharmacy: [id number], 167.6, cm, 05/31/22 14:31:00 EDT, Height/Length Dosing, 72.8, kg, 05/31/22 14:31:00 EDT, Weight Dosing 3. Hematemesis (K92.0: Hematemesis) see # 1 Ordered: pantoprazole, 40 mg = 1 tab(s), Oral, BID, # 90 tab(s), Refills(s) 3, Pharmacy: [id number], 167.6, cm, 05/31/22 14:31:00 EDT, Height/Length Dosing, 72.8, kg, 05/31/22 14:31:00 EDT, Weight Dosing Follow-up No qualifying data available Problem List/Past Medical History Ongoing Asthma BMI 25.0-25.9,adult CAD in [place] artery DDD (degenerative disc disease), lumbar Depression Epigastric pain Gouty arthritis Hematemesis Iron deficiency anemia Vitamin D deficiency Historical No qualifying data Procedure/Surgical History Cardiac catheterization (2017), Cardiac catheterization (2005), Cataract extraction, Coronary artery stent, History of lumbar spine surgery. Medications albuterol HFA 90 mcg/inh MDI, 2 puff(s), Inhalation, q4hr, PRN aspirin 81 mg Chew Tab, 81 mg= 1 tab(s), Chewed, Daily atorvastatin 40 mg Tab, 40 mg= 1 tab(s), Oral, Bedtime Carafate 1 gram Tab, 1 gm= 1 tab(s), Oral, QIDACHS ferrous sulfate 325 mg or (more content not included)... [facility] Comment on above: Result Comment: Elec tronically Signed By: EMILY DRUMMOND, Julian Joe.[email or web address]\Date and Time Signed: 06/01/22 10:42 EDT 05-30-2022 Note CONSULTATION PROCEDURE DATE: 05/30/2022 PREOPERATIVE DIAGNOSIS: Bilateral cervical trapezius spasms. POSTOPERATIVE DIAGNOSIS: Bilateral cervical trapezius spasms. PROCEDURE: Bilateral cervical trapezius trigger point injections x2. Subsequent to obtaining informed consent, the patient was placed in an upright sitting neutral head position. Alcohol prep was used to sterilize both sites. A 25 gauge needle with 0.125% Marcaine and 40 mg of Kenalog was divided into two doses. The needle was placed to rest inside each trigger zone. Negative heme. Medication was injected in a fan-like pattern. Patient tolerated the procedure well with no overt complications. [facility] 05-30-2022 Note CONSULTATION CONSULTATION DATE: 05/30/2022 HISTORY OF PRESENT ILLNESS: This is a 61-year-old gentleman returning to the clinic status post bilateral cervical RFAs of C4, C5 and C6, C7. This was completed on 04/30/2022 which he has reported minimal relief at this time. The patient is complaining of bilateral neck tightness and feels he is limited in his range of motion because of this tightness. With activity his pain is 4/10. He occasionally uses heat which decreases his pain. Activities that aggravate his pain are stairs, bending, physical activity, sleeping, changes in the weather. Medications include Mobic 15 mg daily and Big Arm 5/325 b.i.d. He does take tizanidine 4 mg q.h.s. He denies any new vasomotor changes or radicular pain pattern to his upper extremities. Patient's REVIEW OF SYSTEMS / PAST MEDICAL HISTORY / ALLERGIES and IMAGES have been reviewed and they are noted on the chart. PHYSICAL EXAM: VITAL SIGNS: Blood pressure 127/73, heart rate is 77. Temperature is 98.2. He is 5'6 and weighs 72.8 kg. GENERAL APPEARANCE: Pleasant, appropriate, no acute distress. FOCUSED EXAM - NECK: Range of motion is functional in lateral rotation and flexion/extension. Bilateral cervical trapezius muscles are taut with trigger points identified to bilateral sides. Compression reproduces patient's pain symptomatology with positive jump response. MUSCULOSKELETAL: Motor is intact to bilateral upper extremities, 5/5. No vasomotor weakness noted. Muscle conditioning is good. NEUROLOGICAL: Radicular sensory is intact. Negative polyneuropathy. +2 bilateral brachioradialis and triceps reflexes. IMPRESSION: Bilateral cervical trapezius spasms, cervical degenerative disc and cervical spondylosis. PLAN: Patient will receive bilateral cervical trapezius trigger point injections in the clinic today. Education was given on using a menthol heat rub in addition to heat twice daily, as well as taking magnesium glycinate with his multivitamin. Nutrition was discussed as well. Patient will be seen in three months' time unless otherwise indicated. Patient agrees with this plan. [facility] 04-03-2022 Note CONSULTATION CONSULTATION DATE: 04/03/2022 HISTORY OF PRESENT ILLNESS: This is a 61-year-old male returning to the clinic status post bilateral MBB of C4, C5 and C6, C7 that afforded him 90% relief for 24 hours. The following day patient feels that the pain came back to baseline as achy, throbbing which is a 4/10. The patient did have a trip to the emergency department for what he describes as overt weakness, tremors and dizziness. Patient states he has been adequately hydrated and his workup at the ER in [place] warranted no findings. Today, he reports consistent weakness and has notable large ecchymotic spots to his bilateral forearms. The patient is not on any prescribed blood thinners at this time. He does take 81 mg baby aspirin a day. Patient states just barely rubbing or bumping or touching anything with his arms and he resulted in these large ecchymotic spots. These spots were not present at his prior procedure. His current medications, in addition to the aspirin, are tizanidine 4 mg q.h.s., Mobic 15 mg daily and Big Arm 5/325 b.i.d. p.r.n. Activities such as standing, walking, twisting, turning, stairs and bending aggravate his pain. He does not use ice or heat at home. Patient's REVIEW OF SYSTEMS / PAST MEDICAL HISTORY / ALLERGIES and IMAGES have been reviewed and they are noted on the chart. PHYSICAL EXAM: GENERAL APPEARANCE: Patient has a flush appearance and appears uncomfortable sitting in the chair. He is pleasant and appropriate. FOCUSED EXAM - NECK: Range of motion is guarded and limited in lateral rotation and flexion/extension. Reproduction of patient's pain symptomatology and spinal axial pain noted to direct compression along the posterior elements of the cervical facets of C4, C5 and C6, C7 bilaterally. Pain radiates to bilateral shoulders. MUSCULOSKELETAL: Bilateral upper extremities decent muscle tone. Motor is intact, 4/5. Patient has episodic small essential tremors noted with arm extension. NEUROLOGICAL: Brachioradialis bilaterally is +1. IMPRESSION: Cervical degenerative disc, cervical spondylosis, cervical neuritis and bilateral arm ecchymosis. PLAN: Prior to proceeding to the rhizotomy procedures, the patient will have coagulation tests and iron tests drawn. Did recommend adding Vitamin B12 and C to his daily regimen. Upon reviewing labs, and if they are within normal range, we will proceed with RFA starting on the right side at C4, C5 and C6, C7 and subsequently move to the left. Patient agrees with the plan of care and will be followed up in the office post procedure. Patient will be called upon review of his lab values today. Patient is leaving the clinic and heading straight to the lab. [facility] Signed and Approved by: JULIANE MASSEY . 04/04/2022 13:38:00 [facility] 02-21-2022 Note CONSULTATION CONSULTATION DATE: 02/21/2022 This is a pleasant 51-year-old gentleman who returns to the clinic status post #1 bilateral MBB to C4, C5 and C5, C7 completed on 02/05/2022 that afforded him 90% relief for one day. During that time the patient said he was able to do all activities including work without any neck pain. The patient does have chronic lower back pain which still affects him to this day. Overall, he rates his pain 3 out of 10 today, described as achy to his neck specifically. He does have paresthesia to his bilateral legs. In regards to his neck, activities such as twisting, turning, flexion, extension, evening hours and housework aggravate his pain. Sitting and sleeping decreases his pain. He currently does not use any heat rub or heat source to his neck. Medications include Mobic 15 mg q. day, Big Arm 5/325 b.i.d. and tizanidine 4 mg q.h.s., p.r.n. He currently does not take any vitamins that were recommended at his last visit REVIEW OF SYSTEMS, PAST MEDICAL HISTORY, ALLERGIES AND IMAGES: Have been reviewed and noted in the chart. PHYSICAL EXAM: VITAL SIGNS: Blood pressure 119/79, heart rate is 56, temperature is 97.7. Height is 5'6 , weighs 73.2 kg. GENERAL APPEARANCE: Pleasant, appropriate and in no acute distress sitting in the chair. FOCUSED EXAM: NECK: Range of motion is guarded in lateral rotation and flexion/extension. Reproduction of the patient's pain symptomatology is spinoaxial pain to direct compression along the posterior elements of the cervical facets at C4, C5 and C6-C7. No radiation below the shoulders. Muscles are non-spasmodic to trapezius bilaterally. NEUROLOGICAL: Negative polyneuropathy to his upper extremities. Bilateral lower extremities with patchy hypesthesia noted along the L5-S1 dermatomes. BACK: Range of motion is within functional limits but somewhat guarded in lateral rotation. Spinal axial reproduced to compression of the posterior elements of the lumbar facets of L4, L5 bilaterally. DIAGNOSIS: Cervicalgia, cervical spondylosis, cervical degenerative disk and cervical neuritis. PLAN: We will refill his Big Arm today 5/325 b.i.d., p.r.n. We will move forward with the #2 bilateral MBB to C4, C5 and C6, C7. I discussed the importance of vitamins, specifically starting a multivitamin and magnesium glycinate 400 mg daily. I also encouraged the patient to do self-massage to his neck as well as a menthol heat rub with heat source daily. The patient does state understanding and would like to move forward. He will be followed up in the office post procedure. [facility] Signed and Approved by: JULIANE MASSEY . 02/25/2022 15:08:00 [facility] Evaluation + Plan note No data available for this section General Surgery [facility] Evaluation note Diagnosis Acute gout of right wrist, unspecified cause- Primary documented in this encounter [employer] Phone: evaluation note* Diagnosis Chronic fatigue Other malaise and fatigue documented in this encounter [employer] Phone: evaluation note* Diagnosis Atypical chest pain- Primary Other chest pain Chest pain, unspecified type Viral syndrome Unspecified viral infection, in conditions classified elsewhere and of unspecified site documented in this encounter [employer] Phone: evalitnyal note* Diagnosis Osteoarthritis of left sacroiliac joint- Primary Lumbar spondylosis Lumbosacral spondylosis without myelopathy Lower extremity numbness Disturbance of skin sensation documented in this encounter [facility]* Diagnosis Osteoarthritis of left sacroiliac joint documented in this encounter [facility]* Diagnosis Osteoarthritis of left sacroiliac joint- Primary Osteoarthritis of left sacroiliac joint documented in this encounter [facility]* Diagnosis Osteoarthritis of left sacroiliac joint- Primary Pain of left sacroiliac joint Disorders of sacrum Lumbar spondylosis Lumbosacral spondylosis without myelopathy documented in this encounter [facility]* Diagnosis Osteoarthritis of right sacroiliac joint- Primary Pain of right sacroiliac joint Disorders of sacrum Polyneuropathy Unspecified hereditary and idiopathic peripheral neuropathy Lower extremity numbness Disturbance of skin sensation Osteoarthritis of left sacroiliac joint Pain of left sacroiliac joint Disorders of sacrum Lumbar spondylosis Lumbosacral spondylosis without myelopathy documented in this encounter [facility]* Diagnosis Osteoarthritis of both sacroiliac joints- Primary Pain of both sacroiliac joints Disorders of sacrum Polyneuropathy Unspecified hereditary and idiopathic peripheral neuropathy documented in this encounter [facility] SystemEvaluation note* Diagnosis Osteoarthritis of both sacroiliac joints Pain of both sacroiliac joints Disorders of sacrum documented in this encounter [facility]* Diagnosis Osteoarthritis of both sacroiliac joints- Primary Pain of both sacroiliac joints Disorders of sacrum Osteoarthritis of both sacroiliac joints Pain of both sacroiliac joints Disorders of sacrum [facility] Diagnosis Hereditary and idiopathic peripheral neuropathy- Primary Unspecified hereditary and idiopathic peripheral neuropathy Hyperreflexia Abnormal reflex [facility] Diagnosis Sacroiliitis- Primary Sacroiliitis, not elsewhere classified [facility] Diagnosis Viral illness- Primary Unspecified viral infection, in conditions classified elsewhere and of unspecified site [facility]* Attachments The following attachments cannot be sent through Care Everywhere. * Gout ([place]angladeshi) [facility] Discharge instructions No data available for this section General Surgery [place] [facility] note No data available for this section General Surgery [facility] Reason for referral (narrative)* Consultation (Routine) - Auth Not Needed Specialty Diagnoses / Procedures Referred By Contac t Referred To Contact Neurology Diagnoses Polyneuropathy Jennie Hernandez MD [address] [place] [id number] Nikhil Mohr MD [address] [place] [address] Referral ID Status Reason Start Date Expiration Date V isits Requested Visits Authorized [id number] Auth Not Needed 06/10/2023 07/04/2024 1 1 * Radiology (Routine) - New Request Specialty Diagnoses / Procedures Referred By Contac t Referred To Contact Diagnoses Osteoarthritis of left sacroiliac joint Pain of left sacroiliac joint Procedures US IMAGING FOR Jennie Cui MD [address] [place] [address] Referral ID Status Reason Start Date Expiration Date V isits Requested Visits Authorized [id number] New Request 06/10/2023 07/04/2024 1 1 [facility] for referral (narrative)* Consultation (Routine) - Schedule Outgoing - Transfer of Care Specialty Diagnoses / Procedures Referred By Contac t Referred To Contact Neurologic Surgery Diagnoses Osteoarthritis of both sacroiliac joints Pain of both sacroiliac joints Jennie Hernandez MD [address] [place] [address], [place] [address] Referral ID Status Reason Start Date Expiration Date V isits Requested Visits Authorized [id number] Schedule Outgoing - Transfer of Care 07/16/2023 08/09/2024 1 1 * Radiology (Routine) - New Request Specialty Diagnoses / Procedures Referred By Contac t Referred To Contact Diagnoses Osteoarthritis of both sacroiliac joints Pain of both sacroiliac joints Procedures US IMAGING FOR Jennie Cui MD [address] [place] [address] Referral ID Status Reason Start Date Expiration Date V isits Requested Visits Authorized [id number] New Request 07/16/2023 08/09/2024 1 1 [facility] for referral (narrative)* (Routine) Specialty Diagnoses / Procedures Referred By Contac t Referred To Contact [facility] [place] [facility] [address] [place] [address] Referral ID Status Reason Start Date Expiration Date Visits Re quested Visits Authorized [facility] Summary Purpose Family History No Family History Records FoundNo Family History Records FoundNo Family History Records FoundNo Family History Records FoundNo Family History Records FoundNo Family History Records FoundNo Family History Records FoundNo Family History Records FoundNo Family History Records Found Advance Directives No Advanced Directives Records FoundDocuments on File Type Date Recorded 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 Expl anation Advance Directives and Living Will Power of Time Lock Expert Latest Code Status on File Code Status Date Activated Date Inactivated Comments Full Code 01/12/2018 8:34 PM 01/13/2018 3:53 PM Full Code 01/10/2018 3:36 PM 01/12/2018 8:34 PM Documents on File Type Date Recorded 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 Expl 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 ACP-Advance Directive ACP-Power of Time Lock Expert Documents on File Type Date Recorded 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 Expl anation ACP-Advance Directive ACP-Power of Time Lock Expert Latest Code Status on File Code Status Date Activated Date Inactivated Comments Full Code 01/12/2018 8:34 PM 01/13/2018 3:53 PM Full Code 01/10/2018 3:36 PM 01/12/2018 8:34 PM Latest Code Status on File Code Status Date Activated Date Inactivated Comments Full Code 12/30/2022 12:46 PM Full Code 01/12/2018 8:34 PM 01/13/2018 3:53 PM Healthcare Agents on File Name Relationship Healthcare Agent Relationshi p Communication Priscilla Alva Child Primary Decision Maker Latest Code Status on File Code Status Date Activated Date Inactivated Comments Full Code 12/30/2022 12:46 PM 12/31/2022 8:14 PM Code Status History Code Status Date Activated Date Inactivated Comments Full Code 01/12/2018 8:34 PM 01/13/2018 3:53 PM Full Code 01/10/2018 3:36 PM 01/12/2018 8:34 PM Healthcare Agents on File Name Relationship Healthcare Agent Christalhi p Communication Priscilla Alva Child Primary Decision Maker Discharge Instructions * Attachments The following attachments cannot be sent through Care Everywhere. * Chest Pain (Bangladeshi) * Back Pain (Bangladeshi) * Shoulder Pain (Bangladeshi) documented in this encounter* Instructions* Justice Shaver MD - 09/12/2019 Please take all medications as prescribed. Please follow up with your primary care physician by calling today, or as soon as possible, for thefirst available appointment. If you do not have a primary care physician, please contact a physician or clinic listed below today to establish care. Please return to the emergency department IMMEDIATELY if you develop uncontrolled fevers, uncontrolled vomiting, change in symptoms, worsening of symptoms, or ANY other concerns. * Attachments The following attachments cannot be sent through Care Everywhere. * Neck Spasm (Bangladeshi) documented in this encounter* Attachments The following attachments cannot be sent through Care Everywhere. * Abdominal Pain (Bangladeshi) * Acid-Reducing Medicines: General Info (Bangladeshi) documented in this encounter Assessments Diagnosis Chronic pain of both shoulders- Primary Pain in joint, shoulder region Neck pain, chronic Cervicalgia Nonspecific chest pain Diagnosis Trapezius muscle spasm- Primary Spasm of muscle Diagnosis Abdominal pain, epigastric Diagnosis Other specified peripheral vascular diseases (HCC) Reason for Referral Status Reason Specialty Diagnoses / Procedures Referred By Contact Referred To Contact Open Vascular Lab Diagnoses Other specified peripheral vascular diseases (HCC) Procedures VL DUP CAROTID BILATERAL Lisa Wyatt, ELECTRON MICROPROBE OPERATOR - LAST CHALKER [address] [place] [address] Specialty Diagnoses / Procedures Referred By Contac t Referred To Contact Diagnoses Lower extremity numbness Procedures EMG & NERVE CONDUCTION Jennie Hernandez MD [address] [place] [address] Jw Cee MD [address] [place] [id number] Referral ID Status Reason Start Date Expiration Date V isits Requested Visits Authorized [id number] Pending Review 02/25/2023 03/21/2024 1 1 Specialty Diagnoses / Procedures Referred By Contac t Referred To Contact Diagnoses Osteoarthritis of left sacroiliac joint Procedures US IMAGING FOR ORTHO Jennie Hernandez MD [address] [place] [address] [place] [address] Referral ID Status Reason Start Date Expiration Date V isits Requested Visits Authorized [id number] New Request 04/18/2023 05/12/2024 1 1 Specialty Diagnoses / Procedures Referred By Contac t Referred To Contact Diagnoses Osteoarthritis of both sacroiliac joints Pain of both sacroiliac joints Procedures US IMAGING FOR ORTHO Jennie Hernandez MD [address] [place] [address] Referral ID Status Reason Start Date Expiration Date V isits Requested Visits Authorized [id number] New Request 07/16/2023 08/09/2024 1 1 Specialty Diagnoses / Procedures Referred By Contac t Referred To Contact Diagnoses Hyperreflexia Procedures MRI SPINE THORACIC WITHOUT CONTRAST [place] MRI, DORSAL SPINE Nikhil Mohr MD [address] [place] [id number] Referral ID Status Reason Start Date Expiration Date V isits Requested Visits Authorized [id number] New Request 08/14/2023 09/07/2024 1 1 Specialty Diagnoses / Procedures Referred By Contac t Referred To Contact Diagnoses Hyperreflexia Procedures MRI SPINE CERVICAL WITHOUT CONTRAST [place] MRI, CERV SPINE Nikhil Mohr MD [address] [place] [address] Referral ID Status Reason Start Date Expiration Date V isits Requested Visits Authorized [id number] New Request 08/14/2023 09/07/2024 1 1 Additional Source Comments (unrecognized sect ion and content) No Status Records FoundNo Status Records FoundNo Status Records FoundNo Status Records FoundNo Status Records FoundNo Status Records FoundNo Status Records FoundNo Status Records FoundNo Status Records Found INFORMATION SOURCE (unrecogn ized section and content) DATE CREATED AUTHOR 03/26/2018 [facility] DATE CREATED AUTHOR AUTHOR'S ORGANIZ ATION 03/26/[address] [facility] DATE CREATED AUTHOR AUTHOR'S ORGANIZ ATION 07/11/2022 [facility] DATE CREATED AUTHOR AUTHOR'S ORGANIZ ATION 01/18/2023 [facility] DATE CREATED AUTHOR AUTHOR'S ORGANIZ ATION 04/15/2023 [facility] DATE CREATED AUTHOR AUTHOR'S ORGANIZ ATION 07/18/2023 [facility] DATE CREATED AUTHOR AUTHOR'S ORGANIZ ATION 09/22/2023 [facility] DATE CREATED AUTHOR AUTHOR'S ORGANIZ ATION 09/22/2023 [facility] DATE CREATED AUTHOR AUTHOR'S ORGANIZ ATION 10/11/2023 [facility] Reason for Visit (unrecogniz ed section and content) Reason Comments Shoulder Pain ongoing for past wee k worse today Neck Pain worse today Chest Pain ongoing for one week worse today Reason Comments Neck Pain burning/shooting kalen n, BL posterior neck. REcent nerve procedure with pain management. Out of Big Arm for 2 days. Reason Comments Flank Pain pt staes bilateral f alnk pain, onset Friday Status Reason Specialty Diagnoses / Procedures Referred By Contact Referred To Contact Authorized Stress Lab Diagnoses Atherosclerotic heart disease of [place] coronary artery without angina pectoris Procedures HC NM LEXISCAN STRESS W NUC HC NM SEST. REST STRESS MULT [id number] NM STRESS Lisa Wyatt, ELECTRON MICROPROBE OPERATOR - LAST CHALKER [address] [place] [address] [facility] Stress Lab [address] [place] [address] Status Reason Specialty Diagnoses / Procedures Referre d By Contact Referred To Contact Closed Vascular Lab Diagnoses Other specified peripheral vascular diseases Procedures EXTRACRANIAL BILAT STUDY 63529 US CAROTIDS Lisa Wyatt, ELECTRON MICROPROBE OPERATOR - LAST CHALKER [address] [place] [address] [facility] Vascular Lab [address] [place], [place] [id number] Status Reason Specialty Diagnoses / Procedures Referred By Contact Referred To Contact Closed Stress Lab Diagnoses Atherosclerotic heart disease of [place] coronary artery without angina pectoris Procedures HC NM LEXISCAN STRESS W NUC HC NM SEST. REST STRESS MULT 71132 NM STRESS Lisa Wyatt, ELECTRON MICROPROBE OPERATOR - LAST CHALKER [address] [place] [address] [facility] Stress Lab [address] [place], [place] [id number] Reason Comments Wrist Pain Right, onset last PM . No known injury. Pt reports he has had bilateral wrist pain for some time, but this is worse. History of Arthritis Reason Comments Chest Pain Left sided, intermit tent since yesterday, improved after SL nitro, worse with cough, deep breathing and exertion Specialty Diagnoses / Procedures Referred By Contac t Referred To Contact Diagnoses Atypical chest pain Chest pain, unspecified type Kendell Camacho MD [address] [facility] [address] [place] [address] [facility] [address] [place] [address] Referral ID Status Reason Start Date Expiration Date Visits Re quested Visits Authorized [id number] 1 1 Reason Comments Pain New Patient Specialty Diagnoses / Procedures Referred By Contac t Referred To Contact Diagnoses Osteoarthritis of left sacroiliac joint Procedures US IMAGING FOR ORTHO Jennie Hernandez MD [address] [place] [address] [place] [address] Referral ID Status Reason Start Date Expiration Date V isits Requested Visits Authorized [id number] New Request 04/18/2023 05/12/2024 1 1 Reason Comments Pain Joint Injection Reason Comments Pain Follow-up Reason Comments Pain Specialty Diagnoses / Procedures Referred By Contac t Referred To Contact Diagnoses Osteoarthritis of both sacroiliac joints Pain of both sacroiliac joints Procedures US IMAGING FOR ORTHO Jennie Hernandez MD [address] [facility] [place] [address] Referral ID Status Reason Start Date Expiration Date V isits Requested Visits Authorized [id number] New Request 07/16/2023 08/09/2024 1 1 Reason Comments Pain Right Sacroiliac laurent nt Follow-up Right Sacroiliac laurent nt Joint Injection Right Sacroiliac laurent nt Reason Comments New Patient bilateral lower limb polyneuropathy Specialty Diagnoses / Procedures Referred By Contac t Referred To Contact Neurology Diagnoses Polyneuropathy Jennie Hernandez MD [address] [facility] [place] [address] Nikhil Mohr MD [address] [place] [address] Referral ID Status Reason Start Date Expiration Date Visits Re quested Visits Authorized [id number] Closed 06/10/2023 07/04/2024 1 1 Specialty Diagnoses / Procedures Referred By Anni antonio Referred To Contact Diagnoses Sacroiliitis Sacroiliitis [M46.1] Procedures WV ARTHRODESIS SACROILIAC JOINT PERCUTANEOUS CHG FLUOROSCOPY UP TO 1 HOUR PHYSICIAN/QHP TIME [place] IMPLANT/INSERT DEVICE, NOC PROSTHETIC IMPLANT NOS ARTHRODESIS SACROILIAC JOINT MINIMALLY INVASIVE W/ TRANSFIXING DEVICE FLUOROSCOPY IN OR Shaheen Chappell MD [address] [place] [address] Referral ID Status Reason Start Date Expiration Date Visits Re quested Visits Authorized [id number] 09/11/2023 1 1 Reason Comments Influenza Symptoms started yes terday with cough, no n/v. Ordered Prescriptions (unrec ognized section and content) Prescription Sig Dispensed Refills Start Date End Da te traMADol (ULTRAM) 50 MG tabletIndications:Acute gout of right wrist, unspecified cause Take 1 tablet by mouth every 4 hours as needed for Pain for up to 5 days. 30 tablet 0 03/09/2021 03/14/2021 ibuprofen (IBU) 800 MG tablet Take 1 tablet by mouth every 8 hours as needed for Pain 30 tablet 0 03/09/2021 Prescription Sig Dispensed Refills Start Date End Da te atorvastatin (LIPITOR) 20 MG tablet Take 1 tablet by mouth nightly 30 tablet 2 12/31/2022 Scheduled Active and Recently Administ ered Medications (unrecognized section and content) Medication Order 03/07/2021 03/08/2021 03/09/2021 ibuprofen (ADVIL;MOTRIN) tablet 800 mg (COMPLETED) 800 mg, Oral, ONCE, On Fri03/09/21 at 1115, For 1 dose, Do not crush or chew. 1134 (Given - Provid er: Clara Clement RN) traMADol (ULTRAM) tablet 100 mg (COMPLETED) 100 mg, Oral, ONCE, On Fri03/09/21 at 1115, For 1 dose 1134 (Given - Provid er: Clara Clement RN) Scheduled Medication Order 12/29/2022 12/30/2022 12/31/2022 amLODIPine (NORVASC) tablet 10 mg 10 mg, Oral, DAILY, First dose on Fri12/30/22 at 1415, Until Discontinued 144 (Given - Provider: Corrie Ibarra RN) 0713 (Held - Provider: Corrie Ibarra RN - Reason: Contraindicated - Comment: per Dr Camacho) aspirin chewable tablet 324 mg (COMPLETED) 324 mg, Oral, ONCE, 1 dose, On Fri12/30/22 at 0700 0656 (Given - Provider: Lisa Bueno, LEONIDAS) aspirin chewable tablet 81 mg 81 mg, Oral, DAILY, First dose on Fri12/31/22 at 0900, Until Discontinued 0845 (Given - Provid er: Corrie Ibarra RN) atorvastatin (LIPITOR) tablet 20 mg 20 mg, Oral, NIGHTLY, First dose (after last modification) on Fri12/30/22 at 2100, Until Discontinued 2100 (Given - Provider: Monalisa Hudson RN) 2100 (Due) enoxaparin (LOVENOX) injection 40 mg 40 mg, SubCUTAneous, DAILY, First dose on Fri12/30/22 at 1400, Until Discontinued, Indication of Use: Prophylaxis-DVT/PE 144 (Given - Provider: Corrie Ibarra RN) 0846 (Given - Provider: Corrie Ibarra RN) ferrous sulfate (IRON 325) tablet 325 mg 325 mg, Oral, 2 TIMES DAILY WITH MEALS, First dose on Fri12/30/22 at 1700, Until Discontinued 175 (Given - Provider: Corrie Ibarra RN) 0845 (Given - Provider: Corrie Ibarra RN)174 (Given - Provider: Corrie Iabrra RN) isosorbide mononitrate (IMDUR) extended release tablet 60 mg 60 mg, Oral, DAILY, First dose (after last modification) on Fri12/30/22 at 1400, Until Discontinued, Do not crush or chew. 1447 (Given - Provider: Corrie Ibarra RN) 0846 (Given - Provider: Corrie Ibarra RN) lisinopril (PRINIVIL;ZESTRIL) tablet 40 mg 40 mg, Oral, DAILY, First dose on Fri12/30/22 at 1415, Until Discontinued 1447 (Given - Provider: Corrie Ibarra RN) 0846 (Given - Provider: Corrie Ibarra RN) meloxicam (MOBIC) tablet 15 mg 15 mg, Oral, DAILY, First dose on Fri12/30/22 at 1415, Until Discontinued 1446 (Given - Provider: Corrie Ibarra RN) 0846 (Given - Provider: Corrie Ibarra RN) metoprolol succinate (TOPROL XL) extended release tablet 100 mg 100 mg, Oral, DAILY, First dose on Fri12/30/22 at 1415, Until Discontinued, Do not crush or chew. 1447 (Not Given - Provider: Corrie Ibarra RN - Reason: Contraindicated) 0713 (Held - Provider: Corrie Ibarra RN - Reason: Contraindicated - Comment: Per Dr Camacho) pantoprazole (PROTONIX) tablet 40 mg 40 mg, Oral, 2 times daily, First dose on Fri12/30/22 at 1415, Until Discontinued, Do not crush or break. 1447 (Given - Provider: Corrie Ibarra RN)2101 (Given - Provider: Monalisa Hudson RN) 0847 (Given - Provider: Corrie Ibarra RN)2100 (Due) pregabalin (LYRICA) capsule 50 mg 50 mg, Oral, 2 TIMES DAILY, First dose (after last modification) on Fri12/30/22 at 1400, Until Discontinued 1447 (Given - Provider: Corrie Ibarra RN)2102 (Given - Provider: Monalisa Hudson RN) 0846 (Given - Provider: Corrie Ibarra RN)2100 (Due) sodium chloride flush 0.9 % injection 5-40 mL 5-40 mL, IntraVENous, EVERY 12 HOURS SCHEDULED (2 times per day), First dose on Fri12/30/22 at 2100, Until Discontinued, For Line Patency: Peripheral IV = 5 mL; Midline or Central Line = 10 mL/lumen. If following IV push medication, administer flush at same rate as the IV push. Flush volume is determined by type of infusion therapy being given. For non-viscous solutions use: Peripheral IV = 5 mL Midline or Central Line = 10 mL/lumen For viscous solutions (i.e. blood components, parenteral nutrition, contrast media, or after obtaining blood sample) use: Peripheral IV = 10 mL Midline or Central Line = 20 mL/lumen 2102 (Given - Provider: Monalisa Hudson RN) 0846 (Given - Provider: Corrie Ibarra RN)2100 (Due) PRN Medication Order 12/29/2022 12/30/2022 12/31/2022 0.9 % sodium chloride infusion 25 mL, IntraVENous, at 100 mL/hr, PRN, If patient receiving piggyback infusions without ordered maintenance IV fluids or with frequent/long duration piggyback infusions, Starting on Fri12/30/22 at 1245, Administer at the same rate as the piggyback being infused. acetaminophen (TYLENOL) suppository 650 mg(Linked Group 1) 650 mg, Rectal, EVERY 6 HOURS PRN, Starting on Fri12/30/22 at 1245, Until Discontinued, Pain Mild (1-3), Fever, For temp greater than 100.4 F (38 C), Administer if oral route cannot be used. acetaminophen (TYLENOL) tablet 650 mg(Linked Group 1) 650 mg, Oral, EVERY 6 HOURS PRN, Starting on Fri12/30/22 at 1245, Until Discontinued, Pain Mild (1-3), Fever, For temp greater than 100.4 F (38 C), Maximum dose of acetaminophen is 4000 mg from all sources in 24 hours. ibuprofen (ADVIL;MOTRIN) tablet 800 mg 800 mg, Oral, EVERY 8 HOURS PRN, Starting on Fri12/30/22 at 1245, Until Discontinued, Fever, Pain Moderate (4-6), Do not crush or chew. iopamidol (ISOVUE-370) 76 % injection 75 mL (COMPLETED) 75 mL, IntraVENous, IMG ONCE PRN, 1 dose, Starting on Fri12/30/22 at 0846, Until Fri12/30/22 at 0847, Other 0847 (Given - Provider: Mary David) nitroGLYCERIN (NITROSTAT) SL tablet 0.4 mg (CANCELED) 0.4 mg, SubLINGual, EVERY 5 MIN PRN, Starting on Fri12/30/22 at 0644, Until Fri12/30/22 at 1253, Chest pain, Place 1 tablet under tongue upon chest pain, wait 5 minutes and may repeat up to 3 doses in 15 minutes. Do not crush or break. 0657 (Given - Provider: Lisa Bueno, LEONIDAS) nitroGLYCERIN (NITROSTAT) SL tablet 0.4 mg 0.4 mg, SubLINGual, EVERY 5 MIN PRN, Starting on Fri12/30/22 at 1245, Until Discontinued, Chest pain, Place 1 tablet under tongue upon chest pain, wait 5 minutes and may repeat up to 3 doses in 15 minutes. Do not crush or break. ondansetron (ZOFRAN) injection 4 mg(Linked Group 2) 4 mg, IntraVENous, EVERY 6 HOURS PRN, Starting on Fri12/30/22 at 1245, Until Discontinued, Nausea, Vomiting, Administer if oral route cannot be used. ondansetron (ZOFRAN-ODT) disintegrating tablet 4 mg(Linked Group 2) 4 mg, Oral, EVERY 8 HOURS PRN, Starting on Fri12/30/22 at 1245, Until Discontinued, Nausea, Vomiting oxyCODONE-acetaminophen (PERCOCET) 5-325 MG per tablet 1 tablet 1 tablet, Oral, EVERY 8 HOURS PRN, Starting on Fri12/30/22 at 1245, Until Discontinued, Pain Severe (7-10), Maximum dose of acetaminophen is 4000 mg from all sources in 24 hours. 1191 (Given - Provider: Monalisa Hudson RN) 0809 (Given - Provider: Corrie Ibarra RN - Comment: per pt request) polyethylene glycol (GLYCOLAX) packet 17 g 17 g, Oral, DAILY PRN, Starting on Fri12/30/22 at 1245, Until Discontinued, Constipation, First line therapy for constipation sodium chloride flush 0.9 % injection 5-40 mL 5-40 mL, IntraVENous, PRN, Starting on Fri12/30/22 at 1245, Until Discontinued, Line Care, After every IV line use, For Line Patency: Peripheral IV = 5 mL; Midline or Central Line = 10 mL/lumen. If following IV push medication, administer flush at same rate as the IV push. Flush volume is determined by type of infusion therapy being given. For non-viscous solutions use: Peripheral IV = 5 mL Midline or Central Line = 10 mL/lumen For viscous solutions (i.e. blood components, parenteral nutrition, contrast media, or after obtaining blood sample) use: Peripheral IV = 10 mL Midline or Central Line = 20 mL/lumen technetium sestamibi (CARDIOLITE) injection 10 millicurie (COMPLETED) 10 millicurie, IntraVENous, IMG ONCE PRN, 1 dose, Starting on Fri12/31/22 at 1140, Until Fri12/31/22 at 1141, Other 1141 (Given - Provid er: Jc Warren) technetium sestamibi (CARDIOLITE) injection 30 millicurie (COMPLETED) 30 millicurie, IntraVENous, IMG ONCE PRN, 1 dose, Starting on Fri12/31/22 at 1140, Until Fri12/31/22 at 1141, Other 1141 (Given - Provid er: Jc Warren) tiZANidine (ZANAFLEX) tablet 4 mg 4 mg, Oral, EVERY 8 HOURS PRN, Starting on Fri12/30/22 at 1245, Until Discontinued, Neck pain Linked Groups Order Group 1: acetaminophen (TYLENOL) tablet 650 mgJump to med 650 mg, Oral, EVERY 6 HOURS PRN, Starting on Fri12/30/22 at 1245, Until Discontinued, Pain Mild (1-3), Fever, For temp greater than 100.4 F (38 C)
Maximum dose of acetaminophen is 4000 mg from all sources in 24 hours.
Or acetaminophen (TYLENOL) suppository 650 mgJump to med 650 mg, Rectal, EVERY 6 HOURS PRN, Starting on Fri12/30/22 at 1245, Until Discontinued, Pain Mild (1-3), Fever, For temp greater than 100.4 F (38 C)
Administer if oral route cannot be used.
Group 2: ondansetron (ZOFRAN-ODT) disintegrating tablet 4 mgJump to med 4 mg, Oral, EVERY 8 HOURS PRN, Starting on Fri12/30/22 at 1245, Until Discontinued, Nausea, Vomiting Or ondansetron (ZOFRAN) injection 4 mgJump to med 4 mg, IntraVENous, EVERY 6 HOURS PRN, Starting on Fri12/30/22 at 1245, Until Discontinued, Nausea, Vomiting
Administer if oral route cannot be used.
Continuous Medication Order 09/16/2023 09/17/2023 09/18/2023 Sodium chloride 0.9% IV solution Intravenous, at 125 mL/hr, CONTINUOUS, Starting on Debbie 09/18/23 at 0830, Until Debbie 09/18/23 at 1640 0920 ($$New Bag$$ - Provider: Johanna Urena LPN)1204 (Paused - Provider: Amanda Murphy - Comment: Switch to gravity)1205 ($$New Bag$$ - Provider: Amanda Murphy)1420 (Stopped - Provider: Griselda Craig RN) PRN Medication Order 09/16/2023 09/17/2023 09/18/2023 BUPivacaine-EPINEPHrine (MARCAINE;SENSORCAINE-MPF) 0.5% -[id number] injection (CANCELED) NEEDED, Starting on Debbie 09/18/23 at 1144, Until Debbie 09/18/23 at 1228, Intra-op/Intra-Proc 1144 (Given - Provid er: Shaheen Chappell MD) ceFAZolin (ANCEF) 2 g in dextrose 100 mL premix IVPB (COMPLETED) 2 g, Intravenous, Administer over 30 Minutes, BARREL RIBS SOLDERER TO PROCEDURE, 1 dose, Starting on Debbie 09/18/23 at 0827, Until Discontinued, Other, Pre-operative antibiotic, Pre-op/Pre-Proc 1105 (Given - Provid er: Amanda Murphy) hydroCODone-acetaminophen (NORCO) 5-325 MG per tablet 1-2 tablet 1-2 tablet, Oral, EVERY 4 HOURS NEEDED, Starting on Debbie 09/18/23 at 1239, Until Debbie 09/18/23 at 1640, Other, See Admin Instructions, 1 tablet for pain scale 4 or 5 out of 10 2 tablets for pain scale 6 to 10 out 10, Post-op/Post-Proc 1332 (Given - Provid er: Venecia Rivera RN) HYDROmorphone (DILAUDID) injection 0.2 mg(Linked Group 1) 0.2 mg, Intravenous, EVERY 15 MINUTES NEEDED, 3 doses, Starting on Debbie 09/18/23 at 1239, Until Debbie 09/18/23 at 1640, Moderate Pain, Pain 4-7, Recovery HYDROmorphone (DILAUDID) injection 0.5 mg(Linked Group 1) 0.5 mg, Intravenous, EVERY 15 MINUTES NEEDED, 3 doses, Starting on Debbie 09/18/23 at 1239, Until Debbie 09/18/23 at 1640, Severe Pain, Pain 8-10, Recovery Methocarbamol (ROBAXIN) tablet 750-1,500 mg 750-1,500 mg, Oral, EVERY 8 HOURS NEEDED, Starting on Debbie 09/18/23 at 1318, Until Debbie 09/18/23 at 1640, Other, muscle spasm, Post-op/Post-Proc 1334 (Given - Provid er: Venecia Rivera RN) mineral oil light 100 % topical oil (CANCELED) NEEDED, Starting on Debbie 09/18/23 at 1145, Until Debbie 09/18/23 at 1228, Intra-op/Intra-Proc 1145 (Given - Provid er: Shaheen Chappell MD) Ondansetron 4mg/2ml (ZOFRAN) injection 4 mg 4 mg, Intravenous, ONCE NEEDED, 1 dose, Starting on Debbie 09/18/23 at 1239, Until Debbie 09/18/23 at 1640, Nausea / Vomiting, Recovery Oxidized Cellulose (SURGICEL) topical pad (CANCELED) NEEDED, Starting on Debbie 09/18/23 at 1144, Until Debbie 09/18/23 at 1228, Intra-op/Intra-Proc 1144 (Given - Provid er: Shaheen Chappell MD) Vancomycin (VANCOCIN) injection (COMPLETED) CONTINUOUS NEEDED, Starting on Debbie 09/18/23 at 1145, Until Discontinued, Intra-op/Intra-Proc 1145 ($$New Bag$$ - Provider: Shaheen Chappell MD) Linked Groups Order Group 1: HYDROmorphone (DILAUDID) injection 0.2 mgJump to med 0.2 mg, Intravenous, EVERY 15 MINUTES NEEDED, 3 doses, Starting on Debbie 09/18/23 at 1239, Until Debbie 09/18/23 at 1640, Moderate Pain, Pain 4-7, Recovery Or HYDROmorphone (DILAUDID) injection 0.5 mgJump to med 0.5 mg, Intravenous, EVERY 15 MINUTES NEEDED, 3 doses, Starting on Debbie 09/18/23 at 1239, Until Debbie 09/18/23 at 1640, Severe Pain, Pain 8-10, Recovery Scheduled Medication Order 10/08/2023 10/09/2023 2023 guaiFENesin (ROBITUSSIN) 100 MG/5ML liquid 200 mg (COMPLETED) 200 mg, Oral, ONCE, 1 dose, On Fri10/10/23 at 0600 0558 (Given - Provid er: Elidia Grigsby RN) ketorolac (TORADOL) injection 30 mg (COMPLETED) 30 mg, IntraMUSCular, ONCE, 1 dose, On Fri10/10/23 at 0600, Do not administer for more than 5 days. 0600 (Given - Provid er: Elidia Grigsby RN) PRN Medication Order 10/08/2023 10/09/2023 2023 albuterol (PROVENTIL) (2.5 MG/3ML) 0.083% nebulizer solution 15 mg(Linked Group 1) 15 mg, Nebulization, EVERY 1 HOUR PRN, 2 doses, Starting on Fri10/10/23 at 0549, Until Discontinued, Wheezing, Severe Shortness of Breath, Initiate RT Bronchodilator Protocol: Yes - ED protocol albuterol (PROVENTIL) (2.5 MG/3ML) 0.083% nebulizer solution 2.5 mg(Linked Group 2) 2.5 mg, Nebulization, EVERY 20 MIN PRN, 3 doses, Starting on Fri10/10/23 at 0549, Until Discontinued, Wheezing, Mild to Moderate Shortness of Breath, Initiate RT Bronchodilator Protocol: Yes - ED protocol 0608 (See Alternativ e - Provider: Giulia Stein RCP)0617 (See Alternative - Provider: Giulia Stein RCP) ipratropium (ATROVENT) 0.02 % nebulizer solution 0.5 mg(Linked Group 1) 0.5 mg, Nebulization, EVERY 1 HOUR PRN, 2 doses, Starting on Fri10/10/23 at 0549, Until Discontinued, Wheezing, Severe Shortness of Breath, Initiate RT Bronchodilator Protocol: Yes - ED protocol ipratropium 0.5 mg-albuterol 2.5 mg (DUONEB) nebulizer solution 1 Dose(Linked Group 2) 1 Dose, Inhalation, EVERY 20 MIN PRN, 3 doses, Starting on Fri10/10/23 at 0549, Until Discontinued, Shortness of Breath, Mild to Moderate Shortness of Breath, Initiate RT Bronchodilator Protocol: Yes - ED protocol 0608 (Given - Provid er: Giulia Stein RCP)0617 (Given - Provider: Giulia Stein RCP) Linked Groups Order Group 1: albuterol (PROVENTIL) (2.5 MG/3ML) 0.083% nebulizer solution 15 mgJump to med 15 mg, Nebulization, EVERY 1 HOUR PRN, 2 doses, Starting on Fri10/10/23 at 0549, Until Discontinued, Wheezing, Severe Shortness of Breath
Initiate RT Bronchodilator Protocol: Yes - ED protocol And ipratropium (ATROVENT) 0.02 % nebulizer solution 0.5 mgJump to med 0.5 mg, Nebulization, EVERY 1 HOUR PRN, 2 doses, Starting on Fri10/10/23 at 0549, Until Discontinued, Wheezing, Severe Shortness of Breath
Initiate RT Bronchodilator Protocol: Yes - ED protocol Group 2: ipratropium 0.5 mg-albuterol 2.5 mg (DUONEB) nebulizer solution 1 DoseJump to med 1 Dose, Inhalation, EVERY 20 MIN PRN, 3 doses, Starting on Fri10/10/23 at 0549, Until Discontinued, Shortness of Breath, Mild to Moderate Shortness of Breath
Initiate RT Bronchodilator Protocol: Yes - ED protocol Or albuterol (PROVENTIL) (2.5 MG/3ML) 0.083% nebulizer solution 2.5 mgJump to med 2.5 mg, Nebulization, EVERY 20 MIN PRN, 3 doses, Starting on Fri10/10/23 at 0549, Until Discontinued, Wheezing, Mild to Moderate Shortness of Breath
Initiate RT Bronchodilator Protocol: Yes - ED protocol Care Teams (unrecognized sec tion and content) Sail Maker Relationship Specialty Start Date End Date Romario Man MD [address] [place] [address] PCP - General Family Medicine 06/14/19 Sail Maker Relationship Specialty Start Date End Date Romario Man MD [address] [place] [address] PCP - General Family Medicine 06/14/19 Sail Maker Relationship Specialty Start Date End Date Romario Man MD [address] [phone] PCP - General Family Medicine 04/18/23 Sail Maker Relationship Specialty Start Date End Date Romario Man MD [address] [place] [phone] PCP - General Family Medicine 04/18/23 Sail Maker Relationship Specialty Start Date End Date Romario Man MD [address] [place] [phone] PCP - General Family Medicine 04/18/23 Sail Maker Relationship Specialty Start Date End Date Romario Man MD [address] [place] [phone] PCP - General Family Medicine 04/18/23 Sail Maker Relationship Specialty Start Date End Date Romario Man MD [address] [place] [phone] PCP - General Family Medicine 04/18/23 Sail Maker Relationship Specialty Start Date End Date Romario Man MD [address] [place] [phone] PCP - General Family Medicine 04/18/23 Sail Maker Relationship Specialty Start Date End Date Romario Man MD [address] [place] [phone] PCP - General Family Medicine 04/18/23 Sail Maker Relationship Specialty Start Date End Date Romario Man MD [address] [place] [phone] PCP - General Family Medicine 04/18/23 Sail Maker Relationship Specialty Start Date End Date Romario Man MD [address] [place] [address] PCP - General Family Medicine 06/14/19 FOR RECORDS PERTAINING TO PATIENTS WHO ARE OR HAVE BEEN ENROLLED IN A CHEMICAL DEPENDENCY/SUBSTANCEABUSE PROGRAM, SOME INFORMATION MAY BE OMITTED. This clinical summary was aggregated from multiple sources. Caution should be exercised in using it in the provision of clinical care. This summary normalizes information from multiple sources, and as a consequence, information in this document may materially change the coding, format and clinical context of patient data. In addition, data may be omitted in some cases. CLINICAL DECISIONS SHOULD BE BASED ON THE PRIMARY CLINICAL RECORDS. [facility] [employer] [facility]. provides no warranty or guarantee of the accuracy or completeness of information in this document.
--- NOTE | 2023-11-19 12:59 | PM.CN ---
Consult Note: HPI Data of Consult Patient: known to practice within the last 3 years Requesting Physician: Isabelle Maria NP Primary Care Provider: Romario Bronson MD Consult Narrative Reason for consult: f/u Narrative: Noel Alva a pleasant 62 year old male presents for evaluation of chronic low back pain, recently underwent right SIJ fusion with Dr Chappell with >70% ongoing relief and functional improvement. Patient has been off of work since prior to surgery and is returning to work next week. Today patient rating pain 3/10, increasing to 8/10 with activity and depending on the weather due to OA, generalized and in low back hip buttock and bilateral legs/feet. Patient continues to report neuropathic pain radiating into bilateral feet. Patient reports functional improvement and moderate pain from medication regimen however he has been out of his percocet as insurance has not allowed him to fill recently. Patient has noticed increase in OA pain and decrease in functional ability since stopping, JOSE EDUARDO 40% today. cc:: CC: Isabelle Maria NP Review of Systems ROS Status of ROS 10 or more systems reviewed and unremarkable except as noted in history and below Musculoskeletal Reports: back pain and joint pain PFSH PFSH Medical History Aortic atherosclerosis ?I70.0 - Atherosclerosis of aorta (ICD-10) Hypertension ?I10 - Essential (primary) hypertension (ICD-10) Numbness and tingling ?R20.0 - Anesthesia of skin (ICD-10) ?R20.2 - Paresthesia of skin (ICD-10) Back pain ?M54.9 - Dorsalgia, unspecified (ICD-10) Neck pain ?M54.2 - Cervicalgia (ICD-10) Anemia ?D64.9 - Anemia, unspecified (ICD-10) Asthma ?J45.909 - Unspecified asthma, uncomplicated (ICD-10) Surgical History H/O heart artery stent ?Z95.5 - Presence of coronary angioplasty implant and graft (ICD-10) H/O laminectomy ?Z98.890 - Other specified postprocedural states (ICD-10) Meds Home Medications and Allergies Home Medications Medication Instructions Recorded Confirmed Type albuterol sulfate 90 mcg/actuation 1 inh inhalation Q6H 03/14/23 06/16/23 History aerosol inhaler (ProAir HFA) aspirin 81 mg tablet,delayed 81 mg PO DAILY 03/14/23 06/16/23 History release atorvastatin 40 mg tablet 40 mg PO DAILY 03/14/23 06/16/23 History cholecalciferol (vitamin D3) 50 50 mcg PO DAILY 03/14/23 06/16/23 History mcg (2,000 unit) capsule ferrous sulfate 325 mg (65 mg 325 mg PO BID 03/14/23 06/16/23 History iron) tablet (Niels-Time) isosorbide mononitrate 30 mg 30 mg PO DAILY 03/14/23 06/16/23 History tablet,extended release 24 hr lisinopril 40 mg tablet 40 mg PO DAILY 03/14/23 06/16/23 History meloxicam 15 mg tablet 15 mg PO DAILY 03/14/23 06/16/23 History metoprolol tartrate 25 mg tablet 25 mg PO BID 03/14/23 06/16/23 History nitroglycerin 0.4 mg sublingual 0.4 mg sublingual Q5M PRN chest 03/14/23 06/16/23 History tablet (Nitrostat) pain oxycodone-acetaminophen 5 mg-325 1 tab PO TID 03/14/23 06/16/23 History mg tablet (Endocet) pantoprazole 40 mg tablet,delayed 40 mg PO DAILY 03/14/23 06/16/23 History release (Protonix) pregabalin 100 mg capsule (Lyrica) 100 mg PO BID 03/14/23 06/16/23 History sucralfate 1 gram tablet (Carafate) 1 g PO Q6H 03/14/23 06/16/23 History tizanidine 4 mg capsule 4 mg PO .HS PRN muscle spasticity 03/14/23 06/16/23 History oxycodone-acetaminophen 5 mg-325 1 tab PO TID PRN pain #90 tabs 05/12/23 06/16/23 Rx mg tablet (Percocet) pregabalin 50 mg capsule (Lyrica) 50 mg PO BID #60 caps 05/21/23 06/16/23 Rx oxycodone-acetaminophen 5 mg-325 1 tab PO TID PRN pain #90 tabs 06/11/23 06/16/23 Rx mg tablet (Percocet) oxycodone-acetaminophen 5 mg-325 1 tab PO TID PRN pain #90 tabs 07/07/23 Rx mg tablet (Percocet) oxycodone-acetaminophen 5 mg-325 1 tab PO TID PRN pain #90 tabs 08/11/23 Rx mg tablet (Percocet) oxycodone-acetaminophen 5 mg-325 1 tab PO TID PRN pain #90 tabs 08/12/23 Rx mg tablet (Percocet) oxycodone-acetaminophen 5 mg-325 1 tab PO TID PRN pain #90 tabs 09/04/23 Rx mg tablet (Percocet) oxycodone-acetaminophen 5 mg-325 1 tab PO TID PRN pain #90 tabs 10/07/23 Rx mg tablet (Percocet) oxycodone-acetaminophen 5 mg-325 1 tab PO TID PRN pain #90 tabs 10/08/23 Rx mg tablet (Percocet) oxycodone-acetaminophen 5 mg-325 1 tab PO TID PRN pain #90 tabs 11/10/23 Rx mg tablet (Percocet) Allergies Allergy/AdvReac Type Severity Reaction Status Date / Time No Known Drug Allergies Allergy Verified 06/16/23 08:36 Exam Constitutional Documenting provider has reviewed patient's vital signs: yes Common normals: no apparent distress, oriented x3, healthy appearing, alert and well nourished General appearance: cooperative [facility] Common normals: normocephalic, hearing grossly normal bilaterally and moist oral mucous membranes Head and scalp: normocephalic Eye Common normals: PERRL Pupil: PERRL Neck & C-Spine Common normals: full ROM General: normal visual inspection Chest Common normals: inspection of chest normal Respiratory Common normals: normal respiratory effort, no retractions and no use of accessory muscles Back & Pelvis Lumbar spine/lower back: ROM limited, pain with ROM and straight leg raise negative bilaterally Other: positive facet loading bilaterally Extremity Common normals: normal to inspection and full ROM Other: bilateral sharp tingling pins and needles sensation per pt negative physical exam Neuro Common normals: oriented x3, CN's II-XII intact bilaterally, moves all extremities, no focal motor deficits, no sensory deficits noted, deep tendon reflexes 2+ bilaterally and gait normal Sensorium/orientation: alert Motor exam: strength 5/5 throughout and no movement abnormalities noted Psych Common normals: mental status grossly normal, thought process normal, cooperative, affect normal, speech normal and activity/motor behavior normal Speech: normal speech Thought process: normal thought process Results Additional Findings Additional findings: I have checked an [place] report on this patient today and there are no aberrancies noted in the prescribing history.?? A drug screen was completed and reviewed within the last year, and if there has not been a drug screen completed we ordered one today to monitor higher risk, state monitored pain medication use. As part of providing excellent, safe, comprehensive care, the following was completed at our patient's visit: 1. A medication reconciliation and review to ensure accurate knowledge of current/active medications, including asking our patients to inform us about any [id number] medications or herbal remedies/nutritional supplements/alternative remedies. 2. A review to specifically ensure our patients have had annual screening for: elevated body mass index (BMI), tobacco use, screening for depression, and screening for unhealthy alcohol use. When screening is concerning, patients are provided with education and the specific recommendation to discuss the concerning health issue and treatment options with their primary care provider. Assessment and Plan Assessment and Plan (1) Lumbar spondylosis: (2) Sacroiliac joint dysfunction: (3) Lumbar stenosis with neurogenic claudication: (4) penitentiary (current) use of opiate analgesic: Assessment and Plan: functional goals: complete housework, care for self with ADLs, improve quality/quantity of sleep, ambulate and do yard work. finds moderate relief of pain with current pain medication regimen I have refilled the patient's opioid prescriptions at the above noted dose and schedule.? I feel these medications are improving the patient's quality of life and allow them to tolerate activities of daily living as well as participate in recreational activity.? The patient does not report intolerable side effects. The patient is NOT opioid naive and non-pharmacologic and non-opioid treatment has failed to significantly relieve the patient's pain and improve functionality. The patient has a diagnosis that is related to a somatic or visceral pain etiology. ? ?? I reviewed with the patient the potential risks and side effects with the use of? opioid medications including but not limited to respiratory depression,? sedation, and even . I verified the patient has access to naloxone should? these effects occur. I advised the patient to avoid the use of any other? sedation substances including alcohol, THC, and benzodiazepines while? taking opioid medications due to the risk of compounding side effects and? detrimental outcomes. I reviewed the CHILD CAREGIVER, pain treatment agreement, urine? drug screen, and opioid start talking forms. The patient was advised to let? their family know they had Naloxone in case they would need to administer? the medication.? ?? A drug screen was completed within the last year, and no aberrancies were noted regarding their use of controlled substances. The patient understands they are subject to the terms and conditions of the pain contract that they have signed. ? ?? I have checked an [place]AR[place] report on this patient today and there are no aberrancies noted in the prescribing history.? (5) Osteoarthritis: Assessment and Plan: OA numerous sites (6) Chronic pain syndrome: (7) Myofascial pain: Plan continue bracing and f/u with Dr Chappell for right SIJ fusion, reporting >70% ongoing improvement follow up with PCP in regards to dizziness refill and continue oxycodone-acetaminophen 5-325mg TID PRN moderate to severe pain, tolerated well in the past with functional improvement has not been able to fill recently due to insurance continue mobic 15mg daily, continue lyrica 100mg BID, continue tizanidine 4mg HS PRN f/u 3 months, sooner if needed
== END 2023-11-19 12:36 | disposition home or self-care (01) ==
LOC: PM 12:35
PROVIDERS: PCP Family Medicine; Visit Provider Nurse Practitioner
DX: M47.816 Spondylosis without myelopathy or radiculopathy, lumbar region (principal); M53.3 Sacrococcygeal disorders, not elsewhere classified; M48.062 Spinal stenosis, lumbar region with neurogenic claudication; Z79.891 Long term (current) use of opiate analgesic
CPT/HCPCS: G0463

== ENCOUNTER 2023-12-04 11:42 | Outpatient (OUT) | payer OTHER, SELFPAY ==
--- OUTSIDE RECORDS SUMMARY | 2023-12-04 12:04 | XMS_ITS | CCD ---
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 Name Role Phone PHYSICIAN, DEFAULT Unavailable Unavailable PHYSICIAN, DEFAULT Unavailable Unavailable PHYSICIAN, DEFAULT Unavailable Unavailable PHYSICIAN, DEFAULT Unavailable Unavailable AHMAD, SHOWKAT Unavailable Unavailable AHMAD, SHOWKAT Unavailable Unavailable MEDARDO MELVI Unavailable Unavailable CANTU, MARY Unavailable Unavailable STEVE AMEER Unavailable Unavailable Romario Man Primary Care Provider Romario Man Primary Care Provider [phone] Romario Man MD Primary Care Provider ROMARIO MAN Primary Care Physician [phone] MAGDA PROVIDER, ROMARIO Referring Unavailab hemant NILLJulian Attending Unavailable NILL, Julian Davis Attending Unavailable NILL, Julian Davis Attending Unavailable NILLJulian Attending Unavailable NADERER PROVIDER, ROMARIO Referring Unavailab Romario Morse MD Primary Care Provider MASSEY ., JULIANE Consulting Unavailable MASSEY ., JULIANE Admitting Unavailable MASSEY ., JULIANE Attending Unavailable NADAGUS, DR ROMARIO Waddell Primary Care Unavailable NADERER, DR ROMARIO Waddell Primary Care Unavailable SIEGAL, SHAHEEN Admitting Unavailable SIEGAL, SHAHEEN Attending Unavailable MASSEY ., JULIANE Admitting Unavailable MASSEY ., JULIANE Attending Unavailable ZIEBNAPOLEON, DR PEDRO PABLO Davis Consulting Unavailable NADERER, DR ROMARIO Waddell Primary Care Unavailable MASSEY ., JULIANE Consulting Unavailable MAGDA, DR ROMARIO Waddell Admitting Unavailable NADERESusan, DR ROMARIO Waddell Attending Unavailable NADERER, DR ROMARIO Waddell Consulting Unavailable NADERESusan, DR ROMARIO Waddell Primary Care Unavailable NILL ., DR JORDAN Attending Unavailable NILL ., DR JORDAN Consulting Unavailable NILL ., DR JORDAN Admitting Unavailable NADERER, DR ROMRAIO Waddell Primary Care Unavailable NILL ., DR JORDAN Attending Unavailable NILL ., DR JORDAN Consulting Unavailable NILL ., DR JORDAN Admitting Unavailable NADERER, DR ROMARIO Waddell Primary Care Unavailable JULIAN, TREVON Consulting Unavailable MORGOS, DELFINO Consulting Unavailable GEMBUS, [...] DAVIDSON Attending Unavailable Unavailable Primary Care Provider Unavailabl e HERNANDEZ, JENNIE S Referring Unavailable JW CEE Attending Unavailab Romario Morse MD Primary Care Provider [phone] HERNANDEZ, JENNIE S Referring Unavailable HERNANDEZ, JENNIE [...] Unavailable HERNANDEZ, JENNIE S Attending [facility]available [facility] Primary Care Unavailable SELF, [...] Unavailable Romario Man MD Primary Care Provider ROMARIO MAN [place] Primary Care UnavailFANY Toney Consulting Unavailable KENDELL CAMACHO Admitting Unavailable KENDELL CAMACHO Attending Unavailable NADIA FITZPATRICK Attending Unavailable ROMARIO MAN Primary Care UnavailROMARIO Gardner Attending Unavailable Allergies Allergy Classification Reported Allergen(s) Allergy Type Date of Onset Reaction(s) Facility (1 source) No Known Medication Allergies; Translations: [No Known Medication Allergies] Propensity to adverse reactions (disorder) [facility] Repository Medications Current Medications Medication Drug Class(es) Dates Sig (Normalized) Sig (Original) Acetaminophen (10 sources) Start: 12-30-2022 acetaminophen (TYLENOL) tablet 650 mg Start: 09-12-2019 take 2 tablets by mo [facility] every eight hours as needed for pain [...] tablet Start: 05-23-2022 take 1 tablet by [facility] twice daily Loman 5/325 Tab 1 tab(s), Oral, BID, Refill(s) [...] once daily Cholecalciferol (Vitamin D3) 50 MCG (1999 [place]) tablet Take 1 tablet by mouth [...] oral tablet (20 sources) beta-Adrenergic Sarah Start: 01-14-2023 take 1 tablet by mouth once daily [...] BID, # 90 tab(s), Refills(s) 3, Pharmacy: [facility], 167.6, cm, 05/31/22 14:31:00 [...] Start: 01-20-2023 take 1 capsule by mo [facility] twice daily Pregabalin 50 MG capsule Take [...] Start: 12-30-2022 take 1 tablet by alissa every eight hours as needed 1 tablet, [...] 1 tablet by mouth once daily aspirin, M-, tablet Take 1 tablet by mouth daily. 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 Fact sheet for Healthcare Providers: https://www.fda.gov/media/677555/download Fact sheet for Patients: https://www.fda.gov/media/834048/download Methodology: Isothermal Nucleic Acid Amplification Specimen Description .NASOPHARYNGEAL SWAB [facility] Flu A/B Ag Detectionon 10-10 Flu A Ag Detection Negative Normal NEG [facility] Comment on above: Result Comment: for Influenza A Antigen Performed By: #### F NATALYA #### [facility] [address] [place] [address] [place] [address] [employer]: Luis Carlos Del Castillo MD Flu B Ag Detection Negative Normal NEG [facility] Comment on above: Result Comment: for Influenza B Antigen. Performed By: #### F LUABA #### [facility] [address] [place] [address] [employer]: Luis Carlos Del Castillo MD Rapid influenza A/B antigens on 2023 FLUAV Ag Ql (Unsp spec) Negative NEGATIVE [facility] Comment on above: for Influenza A Anti gen FLUBV Ag Ql (Unsp spec) Negative NEGATIVE [facility] Comment on above: for Influenza B Anti gen. [facility] [id number] 2023 SARS-CoV-2 (COVID-19) RNA DAHLIA+probe Ql (Unsp spec) Not detected Normal [facility] Comment on above: Result Comment: Rapid NAAT: [...] management decisions. Fact sheet for Healthcare Providers: https://www.fda.gov/media/716666/download Fact sheet for Patients: https://www.fda.gov/media/635257/download Methodology: Isothermal Nucleic Acid Amplification Performed By: #### C OVRB #### [facility] [address] [place] [address] [address] [id number] [employer]: Luis Carlos Del Castillo MD XR CHEST [...] Nav Hudson MD 10/10/23 Final result Normal [facility] Documentationon 09-18-2023 Documentation [id number] Dorothea Alva 1960 M Date Provider Department [facility] Family History Problem Relation Age of Onset Coronary artery disease Mother Coronary artery disease Father Family Status - Relation Status Age at Mother Father Normal [facility] CBCon 09-09-2023 ABSOLUTE BAS 0.1 10*3/uL Normal 0.0-0.2 [facility] ABSOLUTE EOS 0.1 10*3/uL Normal 0.0-0.7 [facility] ABSOLUTE NEUTROPHIL COUNT 7.0 10*3/uL High 1.4-6.5 [facility] Basophils/100 WBC (Bld) 0.9 % Normal 0.0-2.0 [facility] DTYPE AUTO DIFF Normal [facility] Eosinophils/100 WBC (Bld) 1.3 % Normal 0.0-11.0 [facility] Lymphocytes (Bld) [#/Vol] 1.5 10*3/uL Normal 1.2-3.4 [facility] Lymphocytes/100 WBC (Bld) 15.7 % Low 20.0-55.0 [facility] Monocytes (Bld) [#/Vol] 0.6 10*3/uL Normal 0.0-0.7 [facility] Monocytes/100 WBC (Bld) 7.0 % Normal 0.0-10.0 [facility] Neutrophils/100 WBC (Bld) 75.1 % High 37.0-75.0 [facility] Erythrocyte distribution width (RBC) [Ratio] 14.6 % High 11.5-14.5 [facility] Hematocrit (Bld) [Volume fraction] 41.6 % Low 42.0-52.0 [facility] Hemoglobin (Bld) [Mass/Vol] 13.9 g/dL Low 14.0-18.0 [facility] MCH (RBC) [Entitic mass] 33.0 pg Normal 26.0-35.0 [facility] MCHC (RBC) [Mass/Vol] 33.4 g/dL Normal 27.0-37.0 [facility] MCV (RBC) [Entitic vol] 98.7 fL Normal 80.0-100.0 [facility] Platelet mean volume (Bld) [Entitic vol] 7.8 fL Normal 7.4-11.0 [facility] Platelets (Bld) [#/Vol] 195 10*3/uL Normal 130-400 [facility] RBC (Bld) [#/Vol] 4.21 10*6/uL Normal 4.0-6.1 [facility] WBC (Bld) [#/Vol] 9.3 10*3/uL Normal 3.6-11.0 [facility] CMP FASTINGon 09-09-2023 A:G RATIO 1.5 RATIO Normal 1.3-2.2 [facility] ALBUMIN 4.3 G/dl Normal 3.5-5.0 [facility] ALP [Catalytic activity/Vol] 99 U/L Normal 38-126 [facility] ALT [Catalytic activity/Vol] 46 U/L Normal <50 [facility] AST [Catalytic activity/Vol] 57 U/L Normal 17-59 [facility] Bilirubin [Mass/Vol] 0.7 mg/dL Normal 0.2-1.3 [facility] Calcium [Mass/Vol] 9.5 mg/dL Normal 8.4-10.2 [facility] Chloride [Moles/Vol] 105 mmol/L Normal 98-107 [facility] Comment on above: Result Comment: Gilma medellin note: Triglyceride levels of 600mg/dL or higher may positively bias chloride results by approximately 2.1 mmol CO2 [Moles/Vol] 27 mmol/L Normal 22-30 [facility] Creatinine [Mass/Vol] 0.60 mg/dL Low 0.7-1.2 [facility] EST. GFR, 176 ml/min/1.73sq.m Normal [facility] EST. GFR,Non 145 ml/min/1.73sq.m Normal [facility] GFR Information Average GFR for 60-6 9 years old = 85. Normal [facility] Comment on above: Result Comment: [employer] isaiah Kidney disease, GFR = <60. Kidney failure, GFR = <15. The GFR estimate is not adjusted for extreme body surface area or acute process, nor has it been validated for women or ethnic groups other than and . Glucose [Mass/Vol] 86 mg/dL Normal 70-100 [facility] Comment on above: Result Comment: NORMAL <100 mg/dL PREDIABETES 101-126 mg/dL DIABETES 126 mg/dL or higher Potassium [Moles/Vol] 4.0 mmol/L Normal 3.5-5.1 [facility] Protein [Mass/Vol] 7.1 g/dL Normal 6.3-8.2 [facility] Sodium [Moles/Vol] 141 mmol/L Normal 137-145 [facility] Urea nitrogen [Mass/Vol] 16 mg/dL Normal 7-20 [facility] LARGE JOINT/BURSA INJECTION AND/OR ASPIRATIONon 08-13-2023 Radiology Study observation (narrative) [facility] Office Visiton 08-13-2023 Follow-up visit [id number] Dorothea Alva L 1960 Provider Department Center 08/13/2023 DAVIDSON HOWELL VALENCIA Becker Family History Problem Relation Age of Onset Coronary artery disease Mother Coronary artery disease Father Family Status - Relation Status Age at Mother Father Level of Service:69517 [place] OFFICE/OUTPATIENT ESTABLISHED MOD MDM 30-39 MIN Reason for Visit and Comments: Coronary Artery Disease [187] Chest Pain [475167] Pre-op Exam [048050] Hyperlipidemia [182] Hypertension [655066] Normal [facility] Orders Onlyon 08-13-2023 Orders Only [id number] Dorothea Alva jm L 1960 Provider Department Center 08/13/2023 ADA BALTAZAR Family History Problem Relation Age of Onset Coronary artery disease Mother Coronary artery disease Father Family Status - Relation Status Age at Mother Father [facility] 36on 08-03-2023 36 Patient will need an appointment for further refills - thanks ! Normal [facility] LARGE JOINT/BURSA INJECTION AND/OR ASPIRATIONon 07-16-2023 [...] fashion. The patient was prepped with Chloraprep. [facility] [place] Unspecified body regionon 07-16-2023 Image Storage This order is to facilitate the storage of the image. [facility] LARGE JOINT/BURSA INJECTION AND/OR ASPIRATIONon 06-17-2023 Radiology Study observation (narrative) [facility] LARGE JOINT/BURSA INJECTION AND/OR ASPIRATIONon 06-10-2023 Jose Henriquez ATC 06/17/2023 11:49 AM LARGE JOINT/BURSA INJECTION AND/OR ASPIRATION [...] fashion. The patient was prepped with Chloraprep. [facility] [place] Unspecified body regionon 06-10-2023 Image Storage This order is to facilitate the storage of the image. [facility] LARGE JOINT/BURSA INJECTION AND/OR ASPIRATIONon 05-15-2023 Radiology Study observation (narrative) [facility] LARGE JOINT/BURSA INJECTION AND/OR ASPIRATIONon 04-18-2023 [...] fashion. The patient was prepped with Chloraprep. [facility] [place] Unspecified body regionon 04-18-2023 Image Storage This order is to facilitate the storage of the image. [facility] XR HIPS KOURTNEY 5V W PELVISon XR [...] LUIS CARLOS ENCARNACION Date: 2023-01-08 13:57 Normal [facility] XR LSPINE W_OBLS AND FLEX_EX Ton 01-08-2023 [...] LUIS CARLOS ENCARNACION Date: 2023-01-08 14:00 Normal [facility] Hemoglobin A1Con 01-01-2023 Glucose [Mass/Vol] 114 mg/dL Normal [facility] Comment on above: Result Comment: The ADA and AACC recommend providing the estimated average glucose result to permit better patient understanding of their HBA1c result. Performed By: #### L IPR #### [address] [address] [employer]: Marshall Paulino MD HbA1c (Bld) [Mass fraction] 5.6 % Normal 4.0-6.0 [facility] Comment on above: Performed By: #### L IPR #### [address] [address] [employer]: Marshall Paulino MD Basic Metab w/rfx MGon 12-31 Anion gap [Moles/Vol] 9 mmol/L Normal 9-17 [facility] Comment on above: Performed By: #### T CHERI CDP, BMPX #### [facility] [address] [place] [address] [employer]: Luis Carlos Del Castillo MD #### GLYHGB #### [address] [address] [employer]: Marshall Paulino MD BUN/CRE Ratio 39 High 9-[address] [facility] Comment on above: Performed By: #### T CHERI CDP, BMPX #### [facility] [address] [place] [address] [employer]: Luis Carlos Del Castillo MD #### GLYHGB #### [address] [address] [employer]: Marshall Paulino MD Calcium [Mass/Vol] 9.5 mg/dL Normal 8.6-10.4 [facility] Comment on above: Performed By: #### T CHERI CDP, BMPX #### [facility] [address] [place] [address] [employer]: Luis Carlos Del Castillo MD #### GLYHGB #### [address] [address] [employer]: Marshall Paulino MD Chloride [Moles/Vol] 106 mmol/L Normal 98-107 [facility] Comment on above: Performed By: #### T ROPI, CDP, BMPX #### [facility] [address] [place] [address] [employer]: Luis Carlos Del Castillo MD #### GLYHGB #### [facility] [address] [place], [place] [id number] [employer]: Marshall Paulino MD CO2 [Moles/Vol] 25 mmol/L Normal 20-31 [facility] Comment on above: Performed By: #### T ROPI, CDP, BMPX #### [facility] [address] [place] [address] [employer]: Luis Carlos Del Castillo MD #### GLYHGB #### [address] [place], [place] [address]47[address] [employer]: Marshall Paulino MD Creatinine [Mass/Vol] 0.70 mg/dL Normal 0.70-1.20 [facility] Comment on above: Performed By: #### T CHERI, CDP, BMPX #### [facility] [address] [place] [address] [employer]: Luis Carlos Del Castillo MD #### GLYHGB #### [address] [place], [place] [id number] [employer]: Marshall Paulino MD GFR/1.73 sq M.predicted among non-blacks MDRD (S/P/Bld) [Vol rate/Area] mL/min/{1.73_m2} Normal >60 [facility] Comment on above: Result Comment: These results [...] renal tubular secretion. Performed By: #### T ROPI, CDP, BMPX #### [facility] [address] [place], [place] [id number] [employer]: Luis Carlos Del Castillo MD #### GLYHGB #### [address] [place], [place] [address] [employer]: Marshall Paulino MD Glucose [Mass/Vol] 103 mg/dL High 70-99 [facility] Comment on above: Performed By: #### T CHERI, CDP, BMPX #### [facility] [address] [place], [place] [id number] [employer]: Luis Carlos Del Castillo MD #### GLYHGB #### [address] [address] [employer]: Marshall Paulino MD Potassium [Moles/Vol] 4.3 mmol/L Normal 3.7-5.3 [facility] Comment on above: Performed By: #### T CHERI CDP, BMPX #### [facility] [address] [place], [place] [id number] [employer]: Luis Carlos Del Castillo MD #### GLYHGB #### [address] [address] [employer]: Marshall Paulino MD Sodium [Moles/Vol] 140 mmol/L Normal 135-144 [facility] Comment on above: Performed By: #### T CHERI CDP, BMPX #### [facility] [address] [place], [place] [address] [employer]: Luis Carlos Del Castillo MD #### GLYHGB #### [address] [place] [address] [employer]: Marshall Paulino MD Urea nitrogen [Mass/Vol] 27 mg/dL High 8-23 [facility] Comment on above: Performed By: #### T CHERI, CDP, BMPX #### [address] [place] [address] [employer]: Luis Carlos Del Castillo MD #### GLYHGB #### [facility] [address] [place] [address] [employer]: Marshall Paulino MD Basic Metabolic Panel w/ Ref maria antonia to MGon 12-31-2022 Anion gap [Moles/Vol] 9 mmol/L 9 - 17 mmol/L [facility] Calcium [Mass/Vol] 9.5 mg/dL 8.6 - 10. 4 mg/dL [facility] Chloride [Moles/Vol] 106 mmol/L 98 - 10 7 mmol/L [facility] CO2 [Moles/Vol] 25 mmol/L 20 - 31 mmol/L [facility] Creatinine [Mass/Vol] 0.7 mg/dL 0.70 - 1.20 mg/dL [facility] GFR/1.73 sq M.predicted MDRD (S/P/Bld) [Vol rate/Area] - PINF [facility] Comment on above: These results are not [...] 103 mg/dL High 70 - 99 mg/dL [facility] Interpretation and review of laboratory results Abnormal [facility] Potassium [Moles/Vol] 4.3 mmol/L 3.7 - 5.3 mmol/L [facility] Sodium [Moles/Vol] 140 mmol/L 135 - 144 mmol/L [facility] Urea nitrogen [Mass/Vol] 27 mg/dL High 8 - 23 mg/dL [facility] Urea nitrogen/Creatinine (Bld) [Mass ratio] 39 High 9 - 20 [facility] CARDIAC STRESS TESTon 2022 CARDIAC STRESS TEST [address] [place] [address] CARDIAC STRESS TEST PATIENT NAME: NOEL ALVA : 1960 MED REC NO: [id number] ROOM: [id number] ACCOUNT NO: [id number] ADMIT DATE: 12/30/2022 PROVIDER: Fany Mohr MD [...] MIRIAN/BILLY_LUCIAN Doc#: Unknown CC: Romario Man Normal [facility] CBC with Auto Differentialon 12-31-2022 Absolute Eos # 0.18 [place] [facility] Absolute Immature Granulocyte [facility] Absolute Lymph # 1.58 [facility] Absolute [place] # 0.72 [facility] RS [facility] Basophils (Bld) [#/Vol] 0.05 10*3/uL [facility] Interpretation and review of laboratory results Abnormal [facility] NRBC Automated 0.0 0.0 per 100 WBC [facility] Platelet distribution width (Bld) [Ratio] 13.9 % 11.8 - 14.4 % [facility] Segmented neutrophils/100 WBC (Bld) 62 % 36 - 65 % [facility] Segs Absolute 4.27 [facility] CBC with Diffon 12-31-2022 Abs. Basophil 0.05 k/uL Normal 0.00-0.[address] [facility] Comment on above: Performed By: #### T ROPI, CDP, BMPX #### [facility] [address] [place] [address] [place] [address] [employer]: Luis Carlos Del Castillo MD #### GLYHGB #### [address] [place], [place] [id number] [employer]: Marshall Paulino MD Abs.Imm.Granulocyte <0.03 Normal 0.00-0.30 [facility] Comment on above: Performed By: #### T CHERI, CDP, BMPX #### [facility] [address] [place] [address] [place] [id number] [employer]: Luis Carlos Del Castillo MD #### GLYHGB #### [place] [phone] [employer]: Marshall Paulino MD Abs.Neutrophil (Seg) 4.27 k/uL Normal 1.50-8.10 [facility] Comment on above: Performed By: #### T CHERI, CDP, BMPX #### [facility] [address] [place] [address] [place] [phone] [employer]: Luis Carlos Del Castillo MD #### GLYHGB #### [address] [id number] [employer]: Marshall Paulino MD Eosinophils (Bld) [#/Vol] 0.18 10*3/uL Normal 0.00-0.44 [facility] Comment on above: Performed By: #### T ROPI, CDP, BMPX #### [facility] [address] [place] [address] [place] [address] [employer]: Luis Carlos Del Castillo MD #### GLYHGB #### [address] [place] [address] [employer]: Marshall Paulino MD Erythrocyte distribution width (RBC) [Ratio] 13.9 % Normal 11.8-14.4 [facility] Comment on above: Performed By: #### T ROPI, CDP, BMPX #### [address] [place] [phone] [employer]: Luis Carlos Del Castillo MD #### GLYHGB #### [address] [address] [employer]: Marshall Paulino MD Lymphocytes (Bld) [#/Vol] 1.58 10*3/uL Normal 1.10-3.70 [facility] Comment on above: Performed By: #### T ROPI, CDP, BMPX #### [address] [place] [address] [employer]: Luis Carlos Del Castillo MD #### GLYHGB #### [address] [address] [employer]: Marshall Paulino MD Monocytes (Bld) [#/Vol] 0.72 10*3/uL Normal 0.10-1.20 [facility] Comment on above: Performed By: #### T ROPI, CDP, BMPX #### [address] [place] [phone] [employer]: Luis Carlos Del Castillo MD #### GLYHGB #### [address] [address] [employer]: Marshall Paulino MD Neutrophil (Seg) 62 % Normal 36-65 [facility] Comment on above: Performed By: #### T ROPI, CDP, BMPX #### [address] [place] [phone] [employer]: Luis Carlos Del Castillo MD #### GLYHGB #### [address] [id number] [employer]: Marshall Paulino MD NRBC Automated 0.0 per 100 WBC Normal 0.0 [facility] Comment on above: Performed By: #### T CHERI, CDP, BMPX #### [address] [place] [address] [employer]: Luis Carlos Del Castillo MD #### GLYHGB #### [address] [id number] [employer]: Marshall Paulino MD Basophils/100 WBC (Bld) 1 % Normal 0-2 [facility] Comment on above: Performed By: #### T CHERI CDP, BMPX #### [address] [place] [address] [employer]: Luis Carlos Del Castillo MD #### GLYHGB #### [address] [id number] [employer]: Marshall Paulino MD Eosinophils/100 WBC (Bld) 3 % Normal 1-4 [facility] Comment on above: Performed By: #### T CHERI, CDP, BMPX #### [address] [place] [address] [employer]: Luis Carlos Del Castillo MD #### GLYHGB #### [address] [address] [employer]: Marshall Paulino MD Hematocrit (Bld) [Volume fraction] 40.4 % Low 40.7-50.3 [facility] Comment on above: Performed By: #### T CHERI, CDP, BMPX #### [address] [place] [address] [employer]: Luis Carlos Del Castillo MD #### GLYHGB #### [address] [id number] [employer]: Marshall Paulino MD Hemoglobin (Bld) [Mass/Vol] 13.5 g/dL Normal 13.0-17.0 [facility] Comment on above: Performed By: #### T CHERI CDP, BMPX #### [address] [place] [address] [employer]: Luis Carlos Del Castillo MD #### GLYHGB #### [address] [id number] [employer]: Marshall Paulino MD Immature granulocytes/100 WBC (Bld) 0 % Normal 0 [facility] Comment on above: Performed By: #### T CHERI CDP, BMPX #### [address] [place] [id number] [employer]: Luis Carlos Del Castillo MD #### GLYHGB #### [address] [id number] [employer]: Marshall Paulino MD Lymphocytes/100 WBC (Bld) 23 % Low 24-43 [facility] Comment on above: Performed By: #### T GEE ALONZO, BMPX #### [address] [place] [address] [employer]: Luis Carlos Del Castillo MD #### GLYHGB #### [address] [address] [employer]: Marshall Paulino MD MCH (RBC) [Entitic mass] 31.2 pg Normal 25.2-33.5 [facility] Comment on above: Performed By: #### T CHERI CDP, BMPX #### [address] [place] [address] [employer]: Luis Carlos Del Castillo MD #### GLYHGB #### [address] [id number] [employer]: Marshall Paulino MD MCHC (RBC) [Mass/Vol] 33.4 g/dL Normal 28.4-34.8 [facility] Comment on above: Performed By: #### T CHERI CDP, BMPX #### [address] [place] [address] [employer]: Luis Carlos Del Castillo MD #### GLYHGB #### [address] [id number] [employer]: Marshall Paulino MD MCV (RBC) [Entitic vol] 93.3 fL Normal 82.6-102.9 [facility] Comment on above: Performed By: #### T CHERI CDP, BMPX #### [address] [place] [id number] [employer]: Luis Carlos Del Castillo MD #### GLYHGB #### [place] [id number] [employer]: Marshall Paulino MD Monocytes/100 WBC (Bld) 11 % Normal 3-12 [facility] Comment on above: Performed By: #### T GEE ALONZO, BMPX #### [address] [place] [id number] [employer]: Luis Carlos Del Castillo MD #### GLYHGB #### [address] [id number] [employer]: Marshall Paulino MD Platelet mean volume (Bld) [Entitic vol] 10.1 fL Normal 8.1-13.5 [facility] Comment on above: Performed By: #### T CHERI CDP, BMPX #### [address] [place] [address] [employer]: Luis Carlos Del Castillo MD #### GLYHGB #### [place] [address] [place] [address] [employer]: Marshall Paulino MD Platelets (Bld) [#/Vol] 190 10*3/uL Normal 138-453 [facility] Comment on above: Performed By: #### T GEE ALONZO, BMPX #### [address] [place] [id number] [employer]: Luis Carlos Del Castillo MD #### GLYHGB #### [address] [id number] [employer]: Marshall Paulino MD RBC (Bld) [#/Vol] 4.33 10*6/uL Normal 4.21-5.77 [facility] Comment on above: Performed By: #### T GEE ALONZO, BMPX #### [address] [place] [id number] [employer]: Luis Carlos Del Castillo MD #### GLYHGB #### [address] [address] [employer]: Marshall Paulino MD WBC (Bld) [#/Vol] 6.8 10*3/uL Normal 3.5-11.[address] [facility] Comment on above: Performed By: #### T GEE ALONZO, BMPX #### [address] [place] [id number] [employer]: Luis Carlos Del Castillo MD #### GLYHGB #### [address] [id number] [employer]: Marshall Paulino MD EKG 12 leadon 12-31-2022 Atrial Rate 51 BPM [facility] Work Phone: P [place] 51 degrees [facility] Work Phone: P-R Interval 144 ms [facility] Work Phone: Q-T Interval 490 ms [facility] [employer] Work Phone: QRS Duration 72 ms [facility] [employer] Work Phone: QTc Calculation (Bazett) 451 ms [facility] Work Phone: R [place] 47 degrees [facility] Work Phone: T [place] 91 degrees [facility] Work Phone: Ventricular Rate 51 BPM [facility] [employer] Work Phone: Sinus bradycardia T wave abnormality, consider lateral ischemia Abnormal ECG When compared with ECG of 30-DEC-2022 06:16, Inverted T waves have replaced nonspecific T wave abnormality in Anterior leads QT has lengthened Confirmed by Fany Mohr MD ([id number]) on 12/31/2022 1:07:24 PM [facility] Fany Mohr MD - 12/31/2022 Sinus bradycardia T wave abnormality, consider lateral ischemia Abnormal ECG When compared with ECG of 30-DEC-2022 06:16, Inverted T waves have replaced nonspecific T wave abnormality in Anterior leads QT has lengthened Confirmed by Fany Mohr MD ([id number]) on 12/31/2022 1:07:24 PM [facility] Work Phone: [facility] Work Phone: EKG Rhythm Stripon 3 [facility] Lipid Panelon 12-31-2022 Cholesterol [Mass/Vol] 103 mg/dL NINF - 200 mg/dL [facility] [employer] Comment on above: Cholesterol Guidelines: <200 Desirable 200-240 Borderline >240 Undesirable Cholesterol in HDL [Mass/Vol] 44 mg/dL 40 - PINF mg/dL [facility] [employer] Comment on above: HDL Guidelines: <40 Undesirable 40-59 Borderline >59 Desirable Cholesterol in LDL [Mass/Vol] 46 mg/dL 0 - 130 mg/dL [facility] Comment on above: LDL Guidelines: <100 Desirable 100-129 Near to/above Desirable 130-159 Borderline >159 Undesirable Direct (measured) LDL and calculated LDL are not interchangeable tests. Cholesterol.total/Ch olesterol in HDL [Mass ratio] 2.3 {ratio} NINF - 5 [facility] Triglyceride [Mass/Vol] 67 mg/dL NINF - 150 mg/dL [facility] Comment on above: Triglyceride Guidelines: <150 Desirable 150-199 Borderline 200-499 High >499 Very high Based on AHA Guidelines for fasting triglyceride, July 2012. [facility] Lipid Profileon 12-31-2022 Cholesterol [Mass/Vol] 103 mg/dL Normal <200 [facility] Comment on above: Result Comment: Cholesterol Guidelines: <200 Desirable 200-240 Borderline >240 Undesirable Performed By: #### L IPR #### [employer] [address] [place] [address] [phone] [employer]: Marshall Paulino MD Cholesterol in HDL [Mass/Vol] 44 mg/dL Normal >40 [facility] Comment on above: Result Comment: HDL Guidelines: <40 Undesirable 40-59 Borderline >59 Desirable Performed By: #### L IPR #### [employer] [address] [place] [address] [phone] [employer]: Marshall Paulino MD Cholesterol in LDL [Mass/Vol] 46 mg/dL Normal 0-130 [facility] Comment on above: Result Comment: LDL Guidelines: <100 Desirable 100-129 Near to/above Desirable 130-159 Borderline >159 Undesirable Direct (measured) LDL and calculated LDL are not interchangeable tests. Performed By: #### L IPR #### [employer] [address] [place] [address] [phone] [employer]: Marshall Paulino MD Cholesterol.total/Ch olesterol in HDL [Mass ratio] 2.3 {ratio} Normal <5 [facility] Comment on above: Performed By: #### L IPR #### [employer] [address] [place] [phone] [employer]: Marshall Paulino MD Triglyceride [Mass/Vol] 67 mg/dL Normal <150 [facility] Comment on above: Result Comment: Triglyceride Guidelines: <150 Desirable 150-199 Borderline 200-499 High >499 Very high Based on AHA Guidelines for fasting triglyceride, July 2012. Performed By: #### L IPR #### [facility] [employer] [address] [place] [address] [employer]: Marshall Paulino MD Resp Viral Panelon 3 Adenovirus Not detected Normal [facility] Comment on above: Performed By: #### L IPR #### [facility] [employer] [address] [place] [address] [employer]: MD Elizabeth Martindet.parapertussis Not detected Normal [facility] Comment on above: Performed By: #### L IPR #### [facility] [address] [place] [address] [employer]: Marshall Paulino MD Bordetella pertussis Not detected Normal [facility] Comment on above: Performed By: #### L IPR #### [facility] [address] [place] [address] [employer]: Marshall Paulino MD Chlamyd.pneumoniae Not detected Normal [facility] Comment on above: Performed By: #### L IPR #### [facility] [employer] [address] [place] [address] [employer]: Marshall Paulino MD Coronavirus 229E Not detected Normal [facility] Comment on above: Performed By: #### L IPR #### [facility] [employer] [address] [place] [address] [employer]: Marshall Paulino MD Coronavirus HKU1 Not detected Normal [facility] Comment on above: Performed By: #### L IPR #### [facility] [employer] [address] [place] [address] [employer]: Marshall Paulino MD Coronavirus NL63 Not detected Normal [facility] Comment on above: Performed By: #### L IPR #### [place] [address] [place] [address] [employer]: Marshall Paulino MD Coronavirus OC43 Not detected Normal [facility] Comment on above: Performed By: #### L IPR #### [address] [address] [employer]: Marshall Paulino MD Human Metapneumo Not detected [facility] Comment on above: Performed By: #### L IPR #### [address] [address] [employer]: Marshall Paulino MD Influenza A Not detected [facility] Comment on above: Performed By: #### L IPR #### [facility] [employer] [address] [place] [address] [employer]: Marshall Paulino MD Influenza B Not detected [facility] Comment on above: Performed By: #### L IPR #### [address] [address] [employer]: Marshall Paulino MD Mycoplas.pneumoniae Not detected Normal [facility] Comment on above: Result Comment: Perf ormed by multiplexed nucleic acid assay. Performed By: #### L IPR #### [address] [address] [employer]: Marshall Paulino MD Parainfluenza 1 Not detected Normal [facility] Comment on above: Performed By: #### L IPR #### [address] [address] [employer]: Marshall Paulino MD Parainfluenza 2 Not detected Normal [facility] Comment on above: Performed By: #### L IPR #### [address] [address] [employer]: Marshall Paulino MD Parainfluenza 3 Not detected Normal [facility] Comment on above: Performed By: #### L IPR #### [address] [address] [employer]: Marshall Paulino MD Parainfluenza 4 Not detected Normal [facility] Comment on above: Performed By: #### L IPR #### [address] [address] [employer]: Marshall Paulino MD Resp Syncytial Virus Not detected Normal [facility] Comment on above: Performed By: #### L IPR #### [address] [address] [employer]: Marshall Paulino MD Rhino/Enterovirus Not detected Normal [facility] Comment on above: Performed By: #### L IPR #### [address] [address] [employer]: Marshall Paulino MD SARS-CoV-2 (COVID-19) RNA DAHLIA+probe Ql (Unsp spec) Not detected Normal [facility] Comment on above: Performed By: #### L IPR #### [address] [address] [employer]: Marshall Paulino MD Respiratory Panel, Molecular , with COVID-19 (Restricted: peds pts or suitable admitted adults)on 12-31-2022 Adenovirus PCR Not detected Not Detected [facility] B. parapertussis [id number] DNA DAHLIA+non-probe Ql (Nph) Not detected Not Detected [facility] B. pertussis DNA DAHLIA+probe Ql (Unsp spec) Not detected Not Detected [facility] Chlamydia pneumoniae By PCR Not detected Not Detected [facility] Coronavirus 229E PCR Not detected Not Detected [facility] Coronavirus HKU1 PCR Not detected Not Detected [facility] Coronavirus NL63 PCR Not detected Not Detected [facility] Coronavirus OC43 PCR Not detected Not Detected [facility] FLUAV RNA DAHLIA+non-probe Ql (Nph) Not detected Not Detected [facility] FLUBV RNA DAHLIA+non-probe Ql (Nph) Not detected Not Detected [facility] Human Metapneumovirus PCR Not detected Not Detected [facility] Mycoplasma pneumo by PCR Not detected Not Detected [facility] Comment on above: Performed by [employer] nucleic acid assay. Parainfluenza 1 PCR Not detected Not Detected [facility] Parainfluenza 2 PCR Not detected Not Detected [facility] Parainfluenza 3 PCR Not detected Not Detected [facility] Parainfluenza 4 PCR Not detected Not Detected [facility] Resp Syncytial Virus PCR Not detected Not Detected [facility] Rhino/Enterovirus PCR Not detected Not Detected [facility] SARS-CoV-2 (COVID-19) RNA DAHLIA+non-probe Ql (Nph) Not detected Not Detected [facility] Specimen Description .NASOPHARYNGEAL SWAB [facility] Troponinon 12-31-2022 Troponin, High Sens 18 ng/L Normal 0-22 [facility] Comment on above: Result Comment: High Sensitivity Troponin values cannot be compared with other Troponin methodologies. Performed By: #### T GEE ALONZO, BMPX #### [facility] [address] [place] [address] [employer]: Luis Carlos Del Castillo MD #### GLYHGB #### [facility] [address] [place] [address] [employer]: Marshall Paulino MD Troponin I.cardiac DL <= 0.01 ng/mL [Mass/Vol] 18 ng/L 0 - 22 ng/L [facility] Comment on above: High Sensitivity Tro ponin values cannot be compared with other Troponin methodologies. [facility] Brain Natri. Peptideon 12-30 Natriuretic peptide B (Bld) [Mass/Vol] 308 pg/mL High <300 [facility] Comment on above: Result Comment: An age-independent cutoff point of 300 pg/ml has a 98% negative predictive value excluding acute heart failure. Performed By: #### B SCRAPER MEAT #### [facility] [address] [place] [address] [employer]: Luis Carlos Del Castillo MD Brain Natriuretic Peptideon 12-30-2022 Interpretation and review of laboratory results Abnormal [facility] Natriuretic peptide B (Bld) [Mass/Vol] 308 pg/mL High NINF - 300 pg/mL [facility] Comment on above: An age-independent cutoff point of 300 pg/ml has a 98% negative predictive value excluding acute heart failure. [facility] CBC with Auto Differentialon 12-30-2022 Absolute Eos # 0.07 [place] [facility] Absolute Immature Granulocyte 0.04 [facility] Absolute Lymph # 1.83 [facility] Absolute [place] # 0.91 [facility] RS [facility] Basophils (Bld) [#/Vol] 0.06 10*3/uL [facility] Basophils/100 WBC (Bld) 1 % 0 - 2 % [facility] Eosinophils/100 WBC (Bld) 1 % 1 - 4 % [facility] Hematocrit (Bld) [Volume fraction] 39.6 % Low 40.7 - 50.3 % [facility] Hemoglobin (Bld) [Mass/Vol] 13.8 g/dL 13.0 - 17.0 g/dL [facility] Immature granulocytes/100 WBC (Bld) 0 % 0 [facility] Interpretation and review of laboratory results Abnormal [facility] Lymphocytes/100 WBC (Bld) 18 % Low 24 - 43 % [facility] MCH (RBC) [Entitic mass] 31.8 pg 25.2 - 33.5 pg [facility] MCHC (RBC) [Mass/Vol] 34.8 g/dL 28.4 - 34.8 g/dL [facility] MCV (RBC) [Entitic vol] 91.2 fL 82.6 - 102.9 fL [facility] Monocytes/100 WBC (Bld) 9 % 3 - 12 % [facility] NRBC Automated 0.0 0.0 per 100 WBC [facility] Platelet distribution width (Bld) [Ratio] 13.5 % 11.8 - 14.4 % [facility] Platelet mean volume (Bld) [Entitic vol] 9.9 fL 8.1 - 13.5 fL [facility] Platelets (Bld) [#/Vol] 189 10*3/uL [facility] RBC (Bld) [#/Vol] 4.34 10*6/uL 4.21 - 5.77 m/uL [facility] Segmented neutrophils/100 WBC (Bld) 71 % High 36 - 65 % [facility] Segs Absolute 7.15 [facility] WBC (Bld) [#/Vol] 10.1 10*3/uL [facility] CBC with Diffon 12-30-2022 Abs. Basophil 0.06 k/uL Normal 0.00-0.[address] [facility] Comment on above: Performed By: #### T NATHAN ALONZO CDP #### [address] [place] [id number] [employer]: Luis Carlos Del Castillo MD Abs.Imm.Granulocyte 0.04 k/uL Normal 0.00-0.30 [facility] Comment on above: Performed By: #### Ileana ALONZO CP, CDP #### [facility] [address] [place] [address] Dr. [place], [place] 8110183 [employer]: uLis Carlos Del Castillo MD Abs.Neutrophil (Seg) 7.15 k/uL Normal 1.50-8.10 [facility] Comment on above: Performed By: #### Ileana ALONZO CP, CDP #### [address] [place], [facility] [employer]: Luis Carlos Del Castillo MD Basophils/100 WBC (Bld) 1 % Normal 0-2 [facility] Comment on above: Performed By: #### Ileana ALONZO CP, CDP #### [facility] [address] [place] [address] Dr. [place], [place] [id number] [employer]: Luis Carlos Del Castillo MD Eosinophils (Bld) [#/Vol] 0.07 10*3/uL Normal 0.00-0.44 [facility] Comment on above: Performed By: #### Ileana ALONZO CP, CDP #### [facility] [address] [place] [address] Dr. [place], [place] [id number] [employer]: Luis Carlos Del Castillo MD Eosinophils/100 WBC (Bld) 1 % Normal 1-4 [facility] Comment on above: Performed By: #### Ileana ALONZO CP, CDP #### [address] [place], [place] [id number] [employer]: Luis Carlos Del Castillo MD Erythrocyte distribution width (RBC) [Ratio] 13.5 % Normal 11.8-14.4 [facility] Comment on above: Performed By: #### Ileana ALONZO CP, CDP #### [address] [place], [place] [id number] [employer]: Luis Carlos Del Castillo MD Hematocrit (Bld) [Volume fraction] 39.6 % Low 40.7-50.3 [facility] Comment on above: Performed By: #### Ileana ALONZO CP, CDP #### [address] [place], [place] [id number] [employer]: Luis Carlos Del Castillo MD Hemoglobin (Bld) [Mass/Vol] 13.8 g/dL Normal 13.0-17.0 [facility] Comment on above: Performed By: #### Ileana ALONZO CP, CDP #### [address] [place] [address] [employer]: Luis Carlos Del Castillo MD Immature granulocytes/100 WBC (Bld) 0 % Normal 0 [facility] Comment on above: Performed By: #### Ileana ALONZO CP, CDP #### [facility] [address] [place] [address] [employer]: Luis Carlos Del Castillo MD Lymphocytes (Bld) [#/Vol] 1.83 10*3/uL Normal 1.10-3.70 [facility] Comment on above: Performed By: #### Ileana ALONZO CP, CDP #### [facility] [address] [place] [address] [employer]: Luis Carlos Del Castillo MD Lymphocytes/100 WBC (Bld) 18 % Low 24-43 [facility] Comment on above: Performed By: #### Ileana ALONZO CP, CDP #### [facility] [address] [place], [place] [phone] [employer]: Luis Carlos Del Castillo MD MCH (RBC) [Entitic mass] 31.8 pg Normal 25.2-33.5 [facility] Comment on above: Performed By: #### Ileana ALONZO CP, CDP #### [facility] [address] [place], [place] [phone] [employer]: Luis Carlos Del Castillo MD MCHC (RBC) [Mass/Vol] 34.8 g/dL Normal 28.4-34.8 [facility] Comment on above: Performed By: #### Ileana ALONZO CP, CDP #### [facility] [address] [place] [address] [employer]: Luis Carlos Del Castillo MD MCV (RBC) [Entitic vol] 91.2 fL Normal 82.6-102.9 [facility] Comment on above: Performed By: #### Ileana ALOZNO CP, CDP #### [facility] [address] [place], [place] [id number] [employer]: Luis Carlos Del Castillo MD Monocytes (Bld) [#/Vol] 0.91 10*3/uL Normal 0.10-1.20 [facility] Comment on above: Performed By: #### Ileana ALONZO CP, CDP #### [facility] [address] [place], [place] [id number] [employer]: Luis Carlos Del Castillo MD Monocytes/100 WBC (Bld) 9 % Normal 3-12 [facility] Comment on above: Performed By: #### Ileana ALONZO CP, CDP #### [facility] [address] [place], [facility] [employer]: Luis Carlos Del Castillo MD Neutrophil (Seg) 71 % High 36-65 [facility] Comment on above: Performed By: #### Ileana ALONZO CP, CDP #### [facility] [address] [place] [address] Dr. [place], [facility] [employer]: Luis Carlos Del Castillo MD NRBC Automated 0.0 per 100 WBC Normal 0.0 [facility] Comment on above: Performed By: #### Ileana ALONZO CP, CDP #### [address] [place], [place] [id number] [employer]: Luis Carlos Del Castillo MD Platelet mean volume (Bld) [Entitic vol] 9.9 fL Normal 8.1-13.5 [facility] System Comment on above: Performed By: #### Ileana ALONZO CP, CDP #### [address] [place], [place] [address] [employer]: Luis Carlos Del Castillo MD Platelets (Bld) [#/Vol] 189 10*3/uL Normal 138-453 [facility] Comment on above: Performed By: #### Ileana ALONZO CP, CDP #### [address] [place], [place] [id number] [employer]: Luis Carlos Del Castillo MD RBC (Bld) [#/Vol] 4.34 10*6/uL Normal 4.21-5.77 [facility] Comment on above: Performed By: #### Ileana ALONZO CP, CDP #### [facility] [address] [place] [address] [employer]: Luis Carlos Del Castillo MD WBC (Bld) [#/Vol] 10.1 10*3/uL Normal 3.5-11.3 [facility] Comment on above: Performed By: #### T NATHAN ALONZO CDP #### [facility] [address] [place] [address] [employer]: Luis Carlos Del Castillo MD COVID-19, Rapidon 12-30-2022 SARS-CoV-2 (COVID-19) RdRp gene DAHLIA+probe Ql (Resp) Not detected Not Detected [facility] Comment on above: Rapid NAAT: The specimen [...] management decisions. Fact sheet for Healthcare Providers: https://www.fda.gov/media/922981/download Fact sheet for Patients: https://www.fda.gov/media/919108/download Methodology: Isothermal Nucleic Acid Amplification Specimen Description .NASOPHARYNGEAL SWAB [facility] CT CHEST PULMONARY EMBOLISM W CONTRASTon 12-30-2022 [...] Dov Love MD 12/30/22 Final result Normal [facility] Negative for acute pulmonary embolus Right-sided aortic arch Bilateral patchy pulmonary infiltrates which are predominantly peripheral which may be related atypical infectious etiology. Large hiatal hernia and wall thickening in the distal esophagus. An esophagram or endoscopy may be helpful for further evaluation if clinically indicated. [facility] RIS CONSOLIDATED EXAMINATION: CTA OF THE CHEST [...] helpful for further evaluation if clinically indicated. [employer] Phone: Radiology Study observation (narrative) [employer] Phone: CT CHEST PULMONARY EMBOLISM W CONTRASTOrdered By: Dov Love on 12-30-2022 [facility] [employer] Phone: Comp Metabolic Profon 2022 Albumin [Mass/Vol] 3.9 g/dL Normal 3.5-5.2 [facility] Comment on above: Performed By: #### T NATHAN ALONZO, CDP #### [facility] [address] [place], [place] [address] [employer]: Luis Carlos Del Castillo MD Albumin/Glob Ratio 1.3 Normal 1.0-2.5 [facility] Comment on above: Performed By: #### T NATHAN ALONZO, CDP #### [facility] [address] [place], [place] [address] [employer]: Luis Carlos Del Castillo MD Alkaline Phos 102 U/L Normal 40-[address] [facility] Comment on above: Performed By: #### T NATHAN ALONZO, CDP #### [facility] [address] [place], [place] [id number] [employer]: Luis Carlos Del Castillo MD ALT [Catalytic activity/Vol] 19 U/L Normal 5-41 [facility] Comment on above: Performed By: #### Ileana ALONZO CP, CDP #### [facility] [address] [place], [place] [id number] [employer]: Luis Carlos Del Castillo MD Anion gap [Moles/Vol] 10 mmol/L Normal 9-17 [facility] Comment on above: Performed By: #### Ileana ALONZO CP, CDP #### [facility] [address] [place], [place] [address] [employer]: Luis Carlos Del Castillo MD AST [Catalytic activity/Vol] 16 U/L Normal <40 [facility] Comment on above: Performed By: #### Ileana ALONZO CP, CDP #### [facility] [address] [place] [address] Dr. [place], [place] [id number] [employer]: Luis Carlos Del Castillo MD Bilirubin [Mass/Vol] 0.8 mg/dL Normal 0.3-1.2 [facility] Comment on above: Performed By: #### Ileana ALONZO CP, CDP #### [facility] [address] [place] [address] [place] [address] [employer]: Luis Carlos Del Castillo MD BUN/CRE Ratio 25 High 9-[address] [facility] Comment on above: Performed By: #### Ileana ALONZO CP, CDP #### [facility] [address] [place], [place] [address] [employer]: Luis Carlos Del Castillo MD Calcium [Mass/Vol] 9.5 mg/dL Normal 8.6-10.4 [facility] Comment on above: Performed By: #### Ileana ALONZO CP, CDP #### [facility] [address] [place] [address] [employer]: Luis Carlos Del Castillo MD Chloride [Moles/Vol] 105 mmol/L Normal 98-107 [facility] Comment on above: Performed By: #### Ileana ALONZO CP, CDP #### [facility] [address] [place] [address] [employer]: Luis Carlos Del Castillo MD CO2 [Moles/Vol] 24 mmol/L Normal 20-31 [facility] Comment on above: Performed By: #### Ileana ALONZO CP, CDP #### [facility] [address] [place], [place] [address] [employer]: Luis Carlos Del Castillo MD Creatinine [Mass/Vol] 0.63 mg/dL Low 0.70-1.20 [facility] Comment on above: Performed By: #### Ileana ALONZO CP, CDP #### [facility] [address] [place] [address] [employer]: Luis Carlos Del Castillo MD GFR/1.73 sq M.predicted among non-blacks MDRD (S/P/Bld) [Vol rate/Area] mL/min/{1.73_m2} Normal >60 [facility] Comment on above: Result Comment: These results [...] Ileana ALONZO CP, CDP #### [facility] [address] [place] [address] [employer]: Luis Carlos Del Castillo MD Glucose [Mass/Vol] 113 mg/dL High 70-99 [facility] Comment on above: Performed By: #### Ileana ALONZO CP, CDP #### [facility] [address] [place] [address] [employer]: Luis Carlos Del Castillo MD Potassium [Moles/Vol] 3.9 mmol/L Normal 3.7-5.3 [facility] Comment on above: Performed By: #### Ileana ALONZO CP, CDP #### [facility] [address] [place] [address] [employer]: Luis Carlos Del Castillo MD Protein [Mass/Vol] 7.0 g/dL Normal 6.4-8.3 [facility] Comment on above: Performed By: #### Ileana ALONZO CP, CDP #### [facility] [address] [place] [address] [place] [address] [employer]: Luis Carlos Del Castillo MD Sodium [Moles/Vol] 139 mmol/L Normal 135-144 [facility] Comment on above: Performed By: #### Ileana ALONZO CP, CDP #### [facility] [address] [place] [address] [employer]: Luis Carlos Del Castillo MD Urea nitrogen [Mass/Vol] 16 mg/dL Normal 8-23 [facility] Comment on above: Performed By: #### Ileana ALONZO CP, CDP #### [facility] [address] [place], [place] [address] [employer]: Luis Carlos Del Castillo MD [facility] 12-30-2022 Albumin [Mass/Vol] 3.9 g/dL 3.5 - 5.2 g/dL [facility] Albumin/Globulin [Mass ratio] 1.3 {ratio} 1.0 - 2.5 [facility] ALP [Catalytic activity/Vol] 102 U/L 40 - 129 U/L [facility] ALT [Catalytic activity/Vol] 19 U/L 5 - 41 U/L [facility] Anion gap [Moles/Vol] 10 mmol/L 9 - 17 mmol/L [facility] AST [Catalytic activity/Vol] 16 U/L NINF - 40 U/L [facility] Bilirubin [Mass/Vol] 0.8 mg/dL 0.3 - 1 .2 mg/dL [facility] Calcium [Mass/Vol] 9.5 mg/dL 8.6 - 10. 4 mg/dL [facility] Chloride [Moles/Vol] 105 mmol/L 98 - 10 7 mmol/L [facility] CO2 [Moles/Vol] 24 mmol/L 20 - 31 mmol/L [facility] Creatinine [Mass/Vol] 0.63 mg/dL Low 0.70 - 1.20 mg/dL [facility] GFR/1.73 sq M.predicted MDRD (S/P/Bld) [Vol rate/Area] - PINF [facility] Comment on above: These results are not [...] 113 mg/dL High 70 - 99 mg/dL [facility] Interpretation and review of laboratory results Abnormal [facility] Potassium [Moles/Vol] 3.9 mmol/L 3.7 - 5.3 mmol/L [facility] Protein [Mass/Vol] 7.0 g/dL 6.4 - 8.3 g/dL [facility] Sodium [Moles/Vol] 139 mmol/L 135 - 144 mmol/L [employer] [facility] Urea nitrogen [Mass/Vol] 16 mg/dL 8 - 23 mg/dL [facility] Urea nitrogen/Creatinine (Bld) [Mass ratio] 25 High 9 - 20 [facility] [employer] EKG 12 [place] 12-30-2022 Atrial Rate 51 BPM [facility] [employer] Work Phone: P [place] 39 degrees [facility] Work Phone: P-R Interval 146 ms [facility] [employer] Work Phone: Q-T Interval 424 ms [employer] Work Phone: QRS Duration 72 ms [facility] [employer] Work Phone: QTc Calculation (Bazett) 390 ms [facility] [employer] Work Phone: R [place] 56 degrees [employer] Work Phone: T [place] 73 degrees [employer] Work Phone: Ventricular Rate 51 BPM [facility] [employer] Work Phone: Poor data qualit y, interpretation may be adversely affected Sinus bradycardia Nonspecific ST and T wave abnormality Abnormal ECG Confirmed by Fany Mohr MD ([id number]) on 12/30/2022 8:21:48 AM [facility] RADIOLOGY Fany Mohr MD - 12/30/2022 Poor data quality, interpretation may be adversely affected Sinus bradycardia Nonspecific ST and T wave abnormality Abnormal ECG Confirmed by Fany Mohr MD ([id number]) on 12/30/2022 8:21:48 AM [employer] Work Phone: [facility] Work Phone: EKG Rhythm Stripon 3 [facility] Echocardiogram complete 2D w ith doppler with coloron 12-30-2022 Left ventricular Ejection fraction [address] [facility] Work Phone: LVEF MODALITY ECHO ROSLYN [facility] MED[facility] CENTERSegundoHogar Phone: [facility] Transthoracic Echocardiography Report (TTE) Patient Name ABBY Date of Study 12/30/2022 NOEL Vaca Date of 1960 Gender Male Age 62 year(s) Race Room Number 0327 Height: 66 inch, 167.64 cm Corporate ID [id number] Weight: 160 pounds, 72.6 kg # Patient Acct [id number] BSA: 1.82 m^2 BMI: 25.82 kg/m^2 # MR # [id number] [employer] Tineo Interpreting Physician Fany Mohr Fellow Referring Nurse Cece Villalobos, Practitioner STUDIO OPERATION ENGINEER Interpreting Referring Physician Fellow Type of Study TTE procedure:2D Echocardiogram, M-Mode, Doppler, Color Doppler. Procedure Date Date: 12/30/2022 Start: 02:20 PM Study Location: [facility] Indications:Chest pain. History / Tech. Comments: Dx: [...] MD / Result, Unknown Provider - 12/30/2022 [facility] Transthoracic Echocardiography Report (TTE) Patient Name ALVA Date of Study 12/30/2022 NOEL Vaca Date of 1960 Gender Male Age 62 year(s) Race Room Number 0327 Height: 66 inch, 167.64 cm Corporate ID [id number] Weight: 160 pounds, 72.6 kg # Patient Acct [id number] BSA: 1.82 m^2 BMI: 25.82 kg/m^2 # MR # [id number] [employer] Tine[employer] Interpreting Physician Fany Mohr Fellow Referring Nurse Cece Villalobos, Practitioner STUDIO OPERATION ENGINEER Interpreting Referring Physician Fellow Type of Study TTE procedure:2D Echocardiogram, M-Mode, Doppler, Color Doppler. Procedure Date Date: 12/30/2022 Start: 02:20 PM Study Location: [facility] Indications:Chest pain. History / Tech. Comments: Dx: [...] Wall E' velocity:0.12 m/s Lateral Wall E/E':6.28 [facility] [employer] Work Phone: [facility] [employer] Phone: Resp Viral Panelon 3 Source: .NASOPHARYNGEAL SWAB Normal [facility] Comment on above: Performed By: #### L IPR #### [facility] [employer] [address] [place] [address] [employer]: Marshall Paulino MD [id number] 12-30-2022 SARS-CoV-2 (COVID-19) RNA DAHLIA+probe Ql (Unsp spec) Not detected Normal [facility] Comment on above: Result Comment: Rapid NAAT: [...] management decisions. Fact sheet for Healthcare Providers: https://www.fda.gov/media/635684/download Fact sheet for Patients: https://www.fda.gov/media/680325/download Methodology: Isothermal Nucleic Acid Amplification Performed By: #### L IPR #### [address] [address] [employer]: Marshall Paulino MD Troponinon 12-30-2022 Troponin, High Sens 17 ng/L Normal 0-22 [facility] Comment on above: Result Comment: High Sensitivity Troponin values cannot be compared with other Troponin methodologies. Performed By: #### L IPR #### [place] [address] [place] [address] [employer]: Marshall Paulino MD Troponin, High Sens 19 ng/L Normal 0-22 [facility] Comment on above: Result Comment: High Sensitivity Troponin values cannot be compared with other Troponin methodologies. Performed By: #### T CHERI CP, CDP #### [facility] [address] [place] [address] [employer]: Luis Carlos Del Castillo MD Troponin I.cardiac DL <= 0.01 ng/mL [Mass/Vol] 17 ng/L 0 - 22 ng/L [facility] Comment on above: High Sensitivity Tro ponin values cannot be compared with other Troponin methodologies. [facility] Troponin I.cardiac DL <= 0.01 ng/mL [Mass/Vol] 19 ng/L 0 - 22 ng/L [facility] Comment on above: High Sensitivity Tro ponin values cannot be compared with other Troponin methodologies. [facility] XR CHEST PORTABLEon 12-31-19 XR CHEST PORTABLE [...] Sherrill Parmar MD 12/30/22 Final result Normal [facility] There is a new left midlung opacity and adjacent mildly prominent interstitial markings, suggestive of pneumonia. Recommend imaging follow-up to resolution to exclude an underlying lesion. PN RIS CONSOLIDATED EXAMINATION: ONE XRAY VIEW OF THE CHEST 12/30/2022 6:43 am COMPARISON: 03/25/2022 chest radiograph HISTORY: ORDERING SYSTEM PROVIDED HISTORY: chest pain TECHNOLOGIST PROVIDED HISTORY: chest pain FINDINGS: The cardiomediastinal silhouette is within normal limits of size. There is a new left midlung opacities suggestive of pneumonia. Mildly prominent bilateral interstitial markings. No pleural effusion at or pneumothorax. No acute osseous abnormality. PN RIS CONSOLIDATED Sherrill Parmar MD - 12/30/2022 [...] to resolution to exclude an underlying lesion. [employer] Phone: Radiology Study observation (narrative) [employer] Phone: XR CHEST PORTABLEOrdered By: Sherrill Parmar on 12-30-2022 [employer] Phone: XR LSPINE MIN 4 VIEWSon 12-04 [...] PEDRO PABLO CHAMBERS Date: 2022-12-18 13:59 Normal [facility] MRI LSPINE WO CONon 11-06-19 23 MRI [...] PABLO CHAMBERS Date: 2022-11-06 15:08 Normal [facility] TESTOSTERONE, TOTALon 2021 Testosterone [Mass/Vol] 279 ng/dL Normal 264-916 [facility] Comment on above: Result Comment: Adul t male reference interval is based on a population of healthy nonobese males (BMI <30) between 19 and 39 years old. Vinnie et.al. JCEM 2017,102;0754-0016. PMID: [id number]. Performed By: #### H GBHCT #### [facility] [address] [place] [address] Dr. Raimundo Estrada CBC AUTO DIFFon 09-11-2022 BASO # 0.1 103/ul Normal 0.0-0.1 [facility] Comment on above: Performed By: #### H GBHCT #### [facility] [address] [place] [address] Dr. Raimundo Estrada Basophils/100 WBC (Bld) 0.6 % Normal 0.2-2.0 [facility] Comment on above: Performed By: #### H GBHCT #### [facility] [address] [place] [address] Dr. Raimundo Estrada EO # 0.2 103/ul Normal 0.0-0.7 [facility] Comment on above: Performed By: #### H GBHCT #### [facility] [address] [place] [address] Dr. Raimundo Estrada Eosinophils/100 WBC (Bld) 2.4 % Normal 0.9-7.0 [facility] Comment on above: Performed By: #### H GBHCT #### [facility] [address] [place] [address] Dr. Raimundo Estrada Erythrocyte distribution width (RBC) [Ratio] 14.1 % Normal 11.0-15.0 [facility] Comment on above: Performed By: #### H GBHCT #### [facility] [address] [place] [address] Dr. Raimundo Estrada Hematocrit (Bld) [Volume fraction] 40.2 % Critically low 42.0-54.0 [facility] Comment on above: Performed By: #### H GBHCT #### [facility] [address] [place] [address] Dr. Raimundo Estrada Hemoglobin (Bld) [Mass/Vol] 13.4 g/dL Critically low 14.0-18.0 [facility] Comment on above: Performed By: #### H GBHCT #### [facility] [address] [place] [address] Dr. Raimundo Estrada IG # 0.03 10e3/ul Normal 0.00-0.03 [facility] Comment on above: Performed By: #### H GBHCT #### [facility] [address] [place] [address] Dr. Raimundo Estrada IG % 0.4 % Normal 0.0-0.5 [facility] Comment on above: Performed By: #### H GBHCT #### [facility] [address] [place] [address] Dr. Raimundo Estrada LYMPH # 1.7 103/ul Normal 1.2-3.8 [facility] Comment on above: Performed By: #### H GBHCT #### [facility] [address] [place] [address] Dr. Raimundo Estrada Lymphocytes/100 WBC (Bld) 20.8 % Normal 20.5-60.0 [facility] Comment on above: Performed By: #### H GBHCT #### [facility] [address] [place] [address] [address] Raimundo Estrada MANUAL DIFF REQ NO Normal [facility] Comment on above: Performed By: #### H GBHCT #### [facility] [address] [place] [address] Dr. Raimundo Estrada MCH (RBC) [Entitic mass] 31.8 pg Normal 25.9-34.0 [facility] Comment on above: Performed By: #### H GBHCT #### [facility] [address] [place] [address] Dr. Raimundo Estrada MCHC (RBC) [Mass/Vol] 33.3 g/dL Normal 29.9-35.2 [facility] Comment on above: Performed By: #### H GBHCT #### [facility] [address] [place] [address] Dr. Raimundo Estrada MCV (RBC) [Entitic vol] 95.3 fL Critically high 80.0-94.0 [facility] Comment on above: Performed By: #### H GBHCT #### [facility] [address] [place] [address] Dr. Raimundo Estrada MONO # 0.8 103/ul Normal 0.3-0.8 [facility] Comment on above: Performed By: #### H GBHCT #### [facility] [address] [place] [address] Dr. Raimundo Estrada Monocytes/100 WBC (Bld) 9.7 % Normal 1.7-12.0 [facility] Comment on above: Performed By: #### H GBHCT #### [facility] [address] [place] [address] Dr. Raimundo Estrada NEUT # 5.2 103/ul Normal 1.4-6.5 [facility] Comment on above: Performed By: #### H GBHCT #### [facility] [address] [place] [address] Dr. Raimundo Estrada Neutrophils/100 WBC (Bld) 66.1 % Normal 43.0-75.0 [facility] Comment on above: Performed By: #### H GBHCT #### [facility] [address] [place] [address] [address] Raimundo Estrada Platelet mean volume (Bld) [Entitic vol] 10.1 fL Normal 9.5-13.5 [facility] Comment on above: Performed By: #### H GBHCT #### [facility] [address] [place] [address] [address] Raimundo Estrada PLT 189 103/ul Normal 150-450 [facility] Comment on above: Performed By: #### H GBHCT #### [facility] [address] [address] [address] Raimundo Estrada RBC 4.22 106/ul Critically low 4.70-6.10 [facility] Comment on above: Performed By: #### H GBHCT #### [facility] [address] [address] [address] Raimundo Estrada WBC 7.9 103/ul Normal 4.0-11.0 [facility] Comment on above: Performed By: #### H GBHCT #### [facility] [address] [place] [address] [address] Raimundo Estrada FREE T3on 09-11-2022 FREE T3 2.85 pg/mlL Normal 2.18-3.98 [facility] Comment on above: Performed By: #### T SH, FT3, LIVER, BMP, LIPID #### [facility] [address] [address] [address] Raimundo Estrada FREE T4on 09-11-2022 Free T4 [Mass/Vol] 0.85 ng/dL Normal 0.76-1.46 [facility] Comment on above: Performed By: #### H GBHCT #### [facility] [address] [place] [address] [address] Raimundo Estrada GLYCOHEMOGLOBIN A1Con 2021 ADA RECOMMENDATION SEE BELOW Normal [facility] Comment on above: Result Comment: ADA RECOMMENDED LIMIT 4.0 - 6.0 ADA THERAPEUTIC TARGET < 7.0 ACTION SUGGESTED > 7.0 Performed By: #### H GBHCT #### [facility] [address] [address] [address] Raimundo Estrada Glucose [Mass/Vol] 111 mg/dL Normal [facility] Comment on above: Performed By: #### H GBHCT #### [facility] [address] [address] [address] Raimundo Estrada HbA1c (Bld) [Mass fraction] 5.5 % Normal 4.5-6.2 [facility] Comment on above: Performed By: #### H GBHCT #### [facility] [address] [address] [address] Raimundo Estrada LIPID PROFILEon 09-11-2022 CHOL-HDL RATIO NORM SEE BELOW Normal [facility] Comment on above: Result Comment: 3.3 - 4.4 LOW RISK 4.4 - 7.1 AVERAGE RISK 7.1 - 11.0 MODERATE RISK >11.0 HIGH RISK Performed By: #### T SH, FT3, LIVER, BMP, LIPID #### [facility] [address] [address] [address] Raimundo Estrada Cholesterol [Mass/Vol] 129 mg/dL Normal <=200 [facility] Comment on above: Performed By: #### T SH, FT3, LIVER, BMP, LIPID #### [facility] [address] [address] [address] Raimundo Estrada Cholesterol in HDL [Mass/Vol] 62 mg/dL Critically high 40-60 [facility] Comment on above: Performed By: #### T SH, FT3, LIVER, BMP, LIPID #### [facility] [address] [address] [address] Raimundo Estrada Cholesterol in LDL [Mass/Vol] 53.4 mg/dL Normal [facility] Comment on above: Performed By: #### T SH, FT3, LIVER, BMP, LIPID #### [facility] [address] [address] [address] Raimundo Estrada Cholesterol.total/Ch olesterol in HDL [Mass ratio] 2.1 {ratio} Normal [facility] Comment on above: Performed By: #### T SH, FT3, LIVER, BMP, LIPID #### [facility] [address] [address] [address] Raimundo Estrada HDL NORMAL > or = 60 mg/dl - LO W CARDIOVASCULAR RISK <40 mg/dl - HIGH CARDIOVASCULAR RISK Normal [facility] Comment on above: Performed By: #### T SH, FT3, LIVER, BMP, LIPID #### [facility] [address] [address] [address] Raimundo Estrada LDL CALC NORMAL SEE BELOW Normal [facility] Comment on above: Result Comment: <100 mg/dl OPTIMAL 100 - 129 mg/dl NEAR OR ABOVE OPTIMAL 130 - 159 mg/dl BORDERLINE HIGH 160 - 189 mg/dl HIGH >190 mg/dl VERY HIGH Performed By: #### T SH, FT3, LIVER, BMP, LIPID #### [facility] [address] [address] [address] Raimundo Estrada Triglyceride [Mass/Vol] 68 mg/dL Normal <=150 [facility] Comment on above: Performed By: #### T SH, FT3, LIVER, BMP, LIPID #### [facility] [address] [address] [address] Raimundo Estrada VLDL CALC 13.6 mg/dL Normal [facility] Comment on above: Performed By: #### T SH, FT3, LIVER, BMP, LIPID #### [facility] [address] [address] [address] Raimundo Estrada LIVER PROFILEon 09-11-2022 Albumin [Mass/Vol] 3.8 g/dL Normal 3.4-5.0 [facility] Comment on above: Performed By: #### T SH, FT3, LIVER, BMP, LIPID #### [facility] [address] [address] [address] Raimundo Estrada Albumin/Globulin [Mass ratio] 1.0 {ratio} Normal [facility] Comment on above: Performed By: #### T SH, FT3, LIVER, BMP, LIPID #### [facility] [address] [address] [address] Raimundo Estrada ALP [Catalytic activity/Vol] 103 U/L Normal 46-116 [facility] Comment on above: Performed By: #### T SH, FT3, LIVER, BMP, LIPID #### [facility] [address] [place] [address] Dr. Raimundo Estrada ALT [Catalytic activity/Vol] 46 U/L Normal 16-63 [facility] Comment on above: Performed By: #### T SH, FT3, LIVER, BMP, LIPID #### [facility] [address] [place] [address] Dr. Raimundo Estrada AST [Catalytic activity/Vol] 35 U/L Normal 15-37 [facility] Comment on above: Performed By: #### T SH, FT3, LIVER, BMP, LIPID #### [facility] [address] [place] [address] Dr. Raimundo Estrada BILI, CONJUGATED 0.2 mg/dL Normal 0.0-0.2 [facility] Comment on above: Performed By: #### T SH, FT3, LIVER, BMP, LIPID #### [facility] [address] [place] [address] Dr. Raimundo Estrada Bilirubin [Mass/Vol] 0.7 mg/dL Normal 0.2-1.0 [facility] Comment on above: Performed By: #### T SH, FT3, LIVER, BMP, LIPID #### [facility] [address] [place] [address] Dr. Raimundo Estrada Globulin (S) [Mass/Vol] 3.8 g/dL Normal [facility] Comment on above: Performed By: #### T SH, FT3, LIVER, BMP, LIPID #### [facility] [address] [place] [address] Dr. Raimundo Estrada Protein [Mass/Vol] 7.6 g/dL Normal 6.4-8.2 [facility] Comment on above: Performed By: #### T SH, FT3, LIVER, BMP, LIPID #### [facility] [address] [place] [address] Dr. Raimundo Estrada PROF CHEM 8 (BAS METB)on Anion gap [Moles/Vol] 13.9 mmol/L Normal [facility] Comment on above: Performed By: #### T SH, FT3, LIVER, BMP, LIPID #### [facility] [address] [address] [address] Raimundo Estrada Calcium [Mass/Vol] 9.3 mg/dL Normal 8.5-10.1 [facility] Comment on above: Performed By: #### T SH, FT3, LIVER, BMP, LIPID #### [facility] [address] [address] [address] Raimundo Estrada Chloride [Moles/Vol] 104 mmol/L Normal 98-107 [facility] Comment on above: Performed By: #### T SH, FT3, LIVER, BMP, LIPID #### [facility] [address] [place] [address] Dr. Raimundo Estrada CO2 [Moles/Vol] 28.6 mmol/L Normal 21.0-32.0 [facility] Comment on above: Performed By: #### T SH, FT3, LIVER, BMP, LIPID #### [facility] [address] [place] [address] Dr. Raimundo Estrada Creatinine [Mass/Vol] 0.77 mg/dL Normal 0.70-1.30 [facility] Comment on above: Performed By: #### T SH, FT3, LIVER, BMP, LIPID #### [facility] [address] [place] [address] Dr. Raimundo Estrada EGFR-AF GREENLANDIC >60 Normal >=60 [facility] Comment on above: Performed By: #### T SH, FT3, LIVER, BMP, LIPID #### [facility] [address] [place] [address] Dr. Raimundo Estrada EGFR-NON AF [place]IC >60 Normal >=60 [facility] Comment on above: Performed By: #### T SH, FT3, LIVER, BMP, LIPID #### [facility] [address] [place] [address] Dr. Raimundo Estrada Glucose [Mass/Vol] 90 mg/dL Normal 74-106 [facility] Comment on above: Performed By: #### T SH, FT3, LIVER, BMP, LIPID #### [facility] [address] [place] [address] Dr. Raimundo Estrada Potassium [Moles/Vol] 4.5 mmol/L Normal 3.5-5.1 [facility] Comment on above: Performed By: #### T SH, FT3, LIVER, BMP, LIPID #### [facility] [address] [place] [address] Dr. Raimundo Estrada Sodium [Moles/Vol] 142 mmol/L Normal 136-145 [facility] Comment on above: Performed By: #### T SH, FT3, LIVER, BMP, LIPID #### [facility] [address] [place] [address] Dr. Raimundo Estrada Urea nitrogen [Mass/Vol] 22.0 mg/dL Critically high 7.0-18.0 [facility] Comment on above: Performed By: #### T SH, FT3, LIVER, BMP, LIPID #### [facility] [address] [place] [address] Dr. Raimundo Estrada Urea nitrogen/Creatinine [Mass ratio] 28.6 mg/mg Normal [facility] Comment on above: Performed By: #### T SH, FT3, LIVER, BMP, LIPID #### [facility] [address] [place] [address] Dr. Raimundo Estrada TSHon 09-11-2022 TSH 1.375 uIU/mL Normal 0.358-3.74 0 [facility] Comment on above: Performed By: #### T SH, FT3, LIVER, BMP, LIPID #### [facility] [address] [place] [address] Dr. Raimundo Estrada VITAMIN B12on 09-11-2022 Cobalamin (Vitamin B12) [Mass/Vol] 635.0 pg/mL Normal 193.0-986. 0 [facility] Comment on above: Performed By: #### L IPID #### [facility] [address] [place] [address] Dr. Raimundo Estrada General Surgery Office/Clini c [...] History Ongoing Asthma BMI 25.0-25.9,adult CAD in [place] artery DDD (degenerative disc disease), lumbar Depression [...] Tab, 25 mg= 1 tab(s), Oral, BID Loman 5/325 Tab, 1 tab(s), Oral, BID Protonix [...] Coronary artery disease: Mother and Father. Normal [facility] Comment on above: Result Comment: Elec tronically Signed By: EMILY DRUMMOND, Julian Rothman\Date and Time Signed: 07/10/22 17:09 EDT Reminderson 07-08-2022 Reminders - From: Karon uDmont LPN To: [facility] - Clinical; Sent: 07/08/2022 15:58:22 EDT Show up: 05/26/2027 07:00:00 EDT Subject: colonoscopy recall Due Date/Time: 06/26/2027 07:00:00 EDT Reminder/Recall Patient is due for colonoscopy 06/26/2027 due to sigmoid polyp that was not retrieved. Normal [facility] Pathology Noteon 06-28-2022 Pathology Note [id number]#[id number]:127 Normal [facility] Outside Colonoscopyon 2021 Outside Colonoscopy [id number]#[id number]:127 Normal [facility] HEMOGLOBIN AND HEMATOCRITon 06-26-2022 Hematocrit (Bld) [Volume fraction] 44.2 % Normal 42.0-54.0 [facility] Comment on above: Performed By: #### H GBHCT #### [facility] [address] [address] [address] Raimundo Estrada Hemoglobin (Bld) [Mass/Vol] 15.0 g/dL Normal 14.0-18.0 [facility] Comment on above: Performed By: #### H GBHCT #### [facility] [address] [address] [address] Raimundo Estrada Lab Reportson 06-24-2022 Lab Reports [id number]#[id number]:127 Normal [facility] Covid-19 PCR (CVDTBH)on 06-06 SARS-CoV-2 (COVID-19) RNA DAHLIA+probe Ql (Unsp spec) Not detected Normal NOT DETECTED [facility] Comment on above: Result Comment: This test is not yet approved or cleared by the [place] FDA. When there are no FDA-approved or cleared tests available, and other criteria are met, FDA can make tests available under an emergency access mechanism called an Emergency Use Authorization (EUA). The EUA for this test is supported by the Regent of Health and Human Service's (HHS's) declaration [...] consistent with SARS-CoV-2. Performed By: #### H GBT #### [facility] [address] [place] [address] Dr. Raimundo Estrada Consent for Procedure/Surger yon 06-03-2022 Consent for Procedure/Surgery [id number]#[id number]:127 Normal [facility] Pre-Certification Formon Pre-Certification Form [id number]#[id number]:127 Normal [facility] Ambulatory Visit Summaryon 0 05-31-2022 Ambulatory Visit Summary NOEL ALVA :1960 Visit Date:05/31/2022 Ambulatory Visit Instructions Your Diagnosis Epigastric pain Hematemesis Your Care Team Attending Physician - EMILY DRUMMOND, Julian Davis Primary Care Physician - MAGDA DRUMMOND, ROMARIO Referring Physician - ROMARIO MAN MD This Is Your Medications List pantoprazole (Protonix 40 mg Tab-DR) Contact prescribing physician if questions or concerns acetaminophen-hydrocodone (Loman 5/325 Tab) albuterol (albuterol HFA 90 mcg/inh [...] Epigastric pain Hematemesis Refills: 3 Pickup at [facility] Unchanged acetaminophen-hydrocodone (Loman 5/ 325 Tab) 1 Tablets By Mouth [...] physician if questions or concerns Pharmacy Information [facility]: [address] [place], [place] [id number] [phone] Allergies No Known Allergies No Known Medication Allergies Problems Ongoing - Any problem that you are currently receiving treatment for. Asthma BMI 25.0-25.9,adult CAD in [place] artery DDD (degenerative disc disease), lumbar Depression Epigastric pain Gouty arthritis Hematemesis Iron deficiency anemia Vitamin D deficiency Normal [facility] Lab Reportson 05-30-2022 Lab Reports [id number]#[id number]:127 Normal [facility] Lab Reportson 05-23-2022 Lab Reports [id number]#1.00CD:127 Normal [facility] Lab Reports [id number]#1.00CD:127 Normal [facility] Physician Referralon 022 Physician Referral [id number]#[id number]:127 Normal [facility] CBC AUTO DIFFon 04-03-2022 BASO # 0.0 103/ul Normal 0.0-0.1 [facility] Comment on above: Performed By: #### C BC #### [facility] [address] [place], [place] [address] Dr. Raimundo Estrada Basophils/100 WBC (Bld) 0.3 % Normal 0.2-2.0 [facility] Comment on above: Performed By: #### C BC #### [facility] [address] [address] [address] Raimundo Estrada EO # 0.1 103/ul Normal 0.0-0.7 [facility] Comment on above: Performed By: #### C BC #### [facility] [address] [place] [address] Dr. Raimundo Estrada Eosinophils/100 WBC (Bld) 0.7 % Critically low 0.9-7.0 [facility] Comment on above: Performed By: #### C BC #### [facility] [address] [place] [address] Dr. Raimundo Estrada Erythrocyte distribution width (RBC) [Ratio] 14.4 % Normal 11.0-15.0 [facility] Comment on above: Performed By: #### C BC #### [facility] [address] [place] [address] Dr. Raimundo Estrada Hematocrit (Bld) [Volume fraction] 38.2 % Critically low 42.0-54.0 [facility] Comment on above: Performed By: #### C BC #### [facility] [address] [place] [address] Dr. Raimundo Estrada Hemoglobin (Bld) [Mass/Vol] 12.8 g/dL Critically low 14.0-18.0 [facility] Comment on above: Performed By: #### C BC #### [facility] [address] [place] [address] Dr. Raimundo Estrada IG # 0.04 10e3/ul Critically high 0.00-0.03 [facility] Comment on above: Performed By: #### C BC #### [facility] [address] [place] [address] Dr. Raimundo Estrada IG % 0.3 % Normal 0.0-0.5 [facility] Comment on above: Performed By: #### C BC #### [facility] [address] [place] [address] Dr. Raimundo Estrada LYMPH # 1.1 103/ul Critically low 1.2-3.8 [facility] Comment on above: Performed By: #### C BC #### [facility] [address] [place] [address] Dr. Raimundo Estrada Lymphocytes/100 WBC (Bld) 9.4 % Critically low 20.5-60.0 [facility] Comment on above: Performed By: #### C BC #### [facility] [address] [place] [address] Dr. Raimundo Estrada MANUAL DIFF REQ NO Normal [facility] Comment on above: Performed By: #### C BC #### [facility] [address] [place] [address] Dr. Raimundo Estrada MCH (RBC) [Entitic mass] 30.7 pg Normal 25.9-34.0 [facility] Comment on above: Performed By: #### C BC #### [facility] [address] [place] [address] Dr. Raimundo Estrada MCHC (RBC) [Mass/Vol] 33.5 g/dL Normal 29.9-35.2 [facility] Comment on above: Performed By: #### C BC #### [facility] [address] [place] [address] Dr. Raimundo Estrada MCV (RBC) [Entitic vol] 91.6 fL Normal 80.0-94.0 [facility] Comment on above: Performed By: #### C BC #### [facility] [address] [place] [address] Dr. Raimundo Estrada MONO # 0.7 103/ul Normal 0.3-0.8 [facility] Comment on above: Performed By: #### C BC #### [facility] [address] [place] [address] Dr. Raimundo Estrada Monocytes/100 WBC (Bld) 5.8 % Normal 1.7-12.0 [facility] Comment on above: Performed By: #### C BC #### [facility] [address] [place] [address] Dr. Raimundo Estrada NEUT # 9.6 103/ul Critically high 1.4-6.5 [facility] Comment on above: Performed By: #### C BC #### [facility] [address] [address] [address] Raimundo Estrada Neutrophils/100 WBC (Bld) 83.5 % Critically high 43.0-75.0 [facility] Comment on above: Performed By: #### C BC #### [facility] [address] [address] [address] Raimundo Estrada Platelet mean volume (Bld) [Entitic vol] 9.3 fL Critically low 9.5-13.5 [facility] Comment on above: Performed By: #### C BC #### [facility] [address] [address] [address] Raimundo Estrada PLT 165 103/ul Normal 150-450 [facility] Comment on above: Performed By: #### C BC #### [facility] [address] [address] [address] Raimundo Estrada RBC 4.17 106/ul Critically low 4.70-6.10 [facility] Comment on above: Performed By: #### C BC #### [facility] [address] [address] [address] Raimundo Estrada WBC 11.6 103/ul Critically high 4.0-11.0 [facility] Comment on above: Performed By: #### C BC #### [facility] [address] [address] [address] Raimundo Estrada IRONon 04-03-2022 Iron [Mass/Vol] 63.0 ug/dL Critically low 65.0-175.0 [facility] Comment on above: Performed By: #### I HUBERT #### [facility] [address] [address] [address] Raimundo Estrada PROTIMEon 04-03-2022 INR Coag (PPP) [Relative time] 0.98 {INR} Normal [facility] Comment on above: Performed By: #### H GBHCT #### [facility] [address] [address] [address] Raimundo Estrada INR GUIDELINES SEE BELOW Normal [facility] Comment on above: Result Comment: KEIRA RED INR: 2.0 - 3.0 CONDITIONS NOT LISTED BELOW 2.5 - 3.5 FOR PROSTHETIC HEART VALVE REPLACEMENT 2.5 - 3.5 RECURRENT THROMBOSIS Performed By: #### H GBHCT #### [facility] [address] [place] [address] Dr. Raimundo Estrada PT Coag (PPP) [Time] 10.6 s Normal 9.0-11.6 [facility] Comment on above: Performed By: #### H GBHCT #### [facility] [address] [place] [address] Dr. Raimundo Estrada PTTon 04-03-2022 aPTT Coag (Bld) [Time] 26.2 s Normal 22.3-36.2 [facility] Comment on above: Performed By: #### H GBHCT #### [facility] [address] [place] [address] Dr. Raimundo Estrada Sedimentation Rateon 022 Sed Rate 10 [facility] LIPID PROFILEon 03-12-2022 CHOL-HDL RATIO NORM SEE BELOW Normal [facility] Comment on above: Result Comment: 3.3 - 4.4 LOW RISK 4.4 - 7.1 AVERAGE RISK 7.1 - 11.0 MODERATE RISK >11.0 HIGH RISK Performed By: #### L IPID #### [facility] [address] [place] [address] Dr. Raimundo Estrada Cholesterol [Mass/Vol] 126 mg/dL Normal <=200 [facility] Comment on above: Performed By: #### L IPID #### [facility] [address] [place] [address] Dr. Raimundo Estrada Cholesterol in HDL [Mass/Vol] 68 mg/dL Critically high 40-60 [facility] Comment on above: Performed By: #### L IPID #### [facility] [address] [place] [address] Dr. Raimundo Estrada Cholesterol in LDL [Mass/Vol] 52.0 mg/dL Normal [facility] Comment on above: Performed By: #### L IPID #### [facility] [address] [place] [address] Dr. Raimundo Estrada Cholesterol.total/Ch olesterol in HDL [Mass ratio] 1.9 {ratio} Normal [facility] Comment on above: Performed By: #### L IPID #### [facility] [address] [address] [address] Raimundo Estrada HDL NORMAL > or = 60 mg/dl - LO W CARDIOVASCULAR RISK <40 mg/dl - HIGH CARDIOVASCULAR RISK Normal [facility] Comment on above: Performed By: #### L IPID #### [facility] [address] [address] [address] Raimundo Estrada LDL CALC NORMAL SEE BELOW Normal [facility] Comment on above: Result Comment: <100 mg/dl OPTIMAL 100 - 129 mg/dl NEAR OR ABOVE OPTIMAL 130 - 159 mg/dl BORDERLINE HIGH 160 - 189 mg/dl HIGH >190 mg/dl VERY HIGH Performed By: #### L IPID #### [facility] [address] [address] [address] Raimundo Estrada Triglyceride [Mass/Vol] 30 mg/dL Normal <=150 [facility] Comment on above: Performed By: #### L IPID #### [facility] [address] [address] [address] Raimundo Estrada VLDL CALC 6.0 mg/dL Normal [facility] Comment on above: Performed By: #### L IPID #### [facility] [address] [address] [address] Raimundo Estrada CBC Auto DifferentialOrdered By: Julian Dougherty on 03-09-2021 Absolute Eos # <0.03 [facility] Work Phone: Absolute Immature Granulocyte 0.04 [employer] [facility] Work Phone: Absolute Lymph # 1.49 [facility] [place] Work Phone: Absolute [place] # 1.27 High [facility] Work Phone: Basophils (Bld) [#/Vol] 0.03 10*3/uL [facility] Work Phone: Basophils/100 WBC (Bld) 0 % 0 - 2 % [employer] Phone: Differential Type NOT REPORTED [employer] Phone: Eosinophils/100 WBC (Bld) 0 % Low 1 - 4 % [employer] Phone: Hematocrit (Bld) [Volume fraction] 41.8 % 40.7 - 50.3 % [employer] Phone: Hemoglobin.gastroint estinal spec 1 Ql (Stl) 14.3 g/dL 13.0 - 17.0 g/dL [employer] Phone: Immature granulocytes/100 WBC (Bld) 0 % 0 [employer] Phone: Interpretation and review of laboratory results Abnormal [employer] Phone: Lymphocytes/100 WBC (Bld) 14 % Low 24 - 43 % [employer] Phone: MCH (RBC) [Entitic mass] 30.6 pg 25.2 - 33.5 pg [employer] Phone: MCHC (RBC) [Mass/Vol] 34.2 g/dL 28.4 - 34.8 g/dL [employer] Phone: MCV (RBC) [Entitic vol] 89.5 fL 82.6 - 102.9 fL [employer] Phone: Monocytes/100 WBC (Bld) 12 % 3 - 12 % [employer] Phone: NRBC Automated 0.0 0.0 per 100 WBC [employer] Phone: Platelet distribution width (Bld) [Ratio] 13.2 % 11.8 - 14.4 % [employer] Phone: Platelet Estimate NOT REPORTED [employer] Phone: Platelet mean volume (Bld) [Entitic vol] 10.3 fL 8.1 - 13.5 fL [employer] Phone: Platelets (Bld) [#/Vol] 169 10*3/uL [employer] Phone: RBC (Bld) [#/Vol] 4.67 10*6/uL 4.21 - 5.77 m/uL [employer] Phone: RBC (Bld) [#/Vol] NOT REPORTED [employer] Phone: Segmented neutrophils/100 WBC (Bld) 74 % High 36 - 65 % [employer] Work Phone: Segs Absolute 7[employer]59 [employer] Work Phone: WBC (Bld) [#/Vol] 10.4 10*3/uL [employer] Phone: WBC (Bld) [#/Vol] NOT REPORTED [employer] Phone: [employer] Work Phone: Sedimentation RateOrdered By : Julian Dougherty on 03-09-2021 Interpretation and review of laboratory results Abnormal [employer] Phone: Sed Rate 63 mm High 0 - 20 mm [employer] Phone: [employer] Phone: Uric AcidOrdered By: Julian Dougherty on 03-09-2021 Urate [Mass/Vol] 4.3 mg/dL 3.4 - 7.0 mg/dL [employer] Phone: [employer] Phone: XR WRIST RIGHT (MIN 3 VIEWS) Ordered By: Julian Dougherty on 03-09-2021 Arthritic changes an d mild soft tissue swelling without acute osseous abnormality. [employer] Phone: EXAMINATION: 3 XRAY VIEWS OF THE [...] No acute fracture, or dislocation is noted. [employer] Phone: Mauri, Mhpn Incoming R adiant Results From [employer] - 03/09/2021 10:56 AM EDT EXAMINATION: 3 [...] soft tissue swelling without acute osseous abnormality. [employer] Phone: [employer] Phone: DUP CAROTID BILATERALon 1 10-17-2019 [facility] Vascular Carotid Procedure Patient Name ALVA Date of Study 08/16/2020 NOEL Vaca Date of 1960 Gender Male Age 59 year(s) Race Room Number Corporate ID # [id number] Patient MR # [id number] [employer] KEVON Tobar Interpreting Physician Mike Centeno MD [...] left side. - Additional Measurements:ICAPSV/CCAPSV 0.76.ICAEDV/CCAEDV 1.49. [facility] [place], [place] Mauri, Sadaf Knutson C ardio Results From [facility]Ge - 08/17/2020 9:08 AM [facility] Vascular Carotid Procedure Patient Name ALVA Date of Study 08/16/2020 NOEL Vaca Date of 1960 Gender Male Age 59 year(s) Race Room Number Corporate ID # [id number] Patient MR # [id number] [employer] KEVON Tobar Interpreting Physician Mike Centeno MD [...] left side. - Additional Measurements:ICAPSV/CCAPSV 0.76.ICAEDV/CCAEDV 1.49. [place], [place] CBC auto differentialon 07-06 Basophils (Bld) [#/Vol] 0.04 10*3/uL [place] Basophils/100 WBC (Bld) 0 % 0 - 2 % [place] Differential Type NOT REPORTED [place] Eosinophils (Bld) [#/Vol] 0.04 10*3/uL [place] Eosinophils/100 WBC (Bld) 0 % Low 1 - 4 % [place] Erythrocyte distribution width (RBC) [Ratio] 13.9 % 11.8 - 14.4 % [place] Hematocrit (Bld) [Volume fraction] 42.7 % 40.7 - 50.3 % [place] Hemoglobin (Bld) [Mass/Vol] 14.3 g/dL 13 - 17 g/dL [place] Immature granulocytes (Bld) [#/Vol] 0.03 10*3/uL [place] Immature granulocytes (Bld) [#/Vol] 0 % 0 [place] Interpretation and review of laboratory results Abnormal [place] Lymphocytes (Bld) [#/Vol] 1.95 10*3/uL [place] Lymphocytes/100 WBC (Bld) 20 % Low 24 - 43 % [place] MCH (RBC) [Entitic mass] 31.2 pg 25.2 - 33.5 pg [place] MCHC (RBC) [Mass/Vol] 33.5 g/dL 28.4 - 34.8 g/dL [place] MCV (RBC) [Entitic vol] 93.0 fL 82.6 - 102.9 fL [place] Monocytes (Bld) [#/Vol] 0.96 10*3/uL [place] Monocytes/100 WBC (Bld) 10 % 3 - 12 % [place] Platelet mean volume (Bld) [Entitic vol] 10.2 fL 8.1 - 13.5 fL [place] Platelets (Bld) [#/Vol] NOT REPORTED [place] Platelets (Bld) [#/Vol] 189 10*3/uL [place] RBC (Bld) [#/Vol] 4.59 10*6/uL 4.21 - 5.77 m/uL [place] RBC morphology finding Nom (Bld) NOT REPORTED [place] Segmented neutrophils/100 WBC (Bld) 70 % High 36 - 65 % [place] Segs Absolute 7.00 [place] WBC (Bld) [#/Vol] 10.0 10*3/uL [place] WBC (Bld) [#/Vol] 0.0 10*3/uL 0.0 per 100 WBC [place] WBC Morphology NOT REPORTED [place] ABDOMEN PELVIS WO CONTRAS T [...] to suggest a definite acute inflammatory process. [facility] EXAMINATION: CT OF T HE ABDOMEN AND [...] and moderate canal stenosis. No pars defects. [facility] Mauri, Mhpn Incoming R adiant Results From [employer] - 07/18/2020 9:12 AM EDT EXAMINATION: CT [...] to suggest a definite acute inflammatory process. [place] Comprehensive Metabolic Pane [facility] 07-18-2020 Albumin [Mass/Vol] 4.3 g/dL 3.5 - 5.2 g/dL [place] Albumin/Globulin [Mass ratio] 1.5 {ratio} [place] ALP [Catalytic activity/Vol] 71 U/L 40 - 129 U/L [place] ALT [Catalytic activity/Vol] 26 U/L 5 - 41 U/L [place] Anion gap [Moles/Vol] 13 mmol/L 9 - 17 mmol/L [place] AST [Catalytic activity/Vol] 26 U/L <40 [place] Bilirubin Ql (U) 1.44 mg/dL High 0.3 - 1.2 mg/dL [place] Bun/Cre Ratio 28 High [place] Calcium [Mass/Vol] 9.4 mg/dL 8.6 - 10. 4 mg/dL [place] Chloride [Moles/Vol] 103 mmol/L 98 - 10 7 mmol/L [place] CO2 [Moles/Vol] 23 mmol/L 20 - 31 mmol/L [place] Creatinine [Mass/Vol] 0.79 mg/dL 0.7 - 1.2 mg/dL [place] GFR >60 >60 mL/min [place] GFR Non- >60 >60 mL/min [place] Glucose [Mass/Vol] 93 mg/dL 70 - 99 mg/dL [place] Interpretation and review of laboratory results Abnormal [place] Potassium [Moles/Vol] 3.9 mmol/L 3.7 - 5.3 mmol/L [place] Protein [Mass/Vol] 7.1 g/dL 6.4 - 8.3 g/dL [place] Sodium [Moles/Vol] 139 mmol/L 135 - 144 mmol/L [place] Urea nitrogen [Mass/Vol] 22 mg/dL High 6 - 20 mg/dL [place] EKG 12 Leadon 07-18-2020 Atrial Rate 58 BPM [place], [place] P [place] 45 degrees [place] P-R Interval 138 ms [place] Q-T Interval 478 ms [place] QRS Duration 74 ms [place] QTc Calculation (Bazett) 469 ms [place] R [place] 49 degrees [place], [place] T [place] 129 degrees [place] Ventricular Rate 58 BPM [place] Sinus bradycardia T wave abnormality, consider lateral ischemia Prolonged QT Abnormal ECG When compared with ECG of 14-JUN-2019 10:26, Nonspecific T wave abnormality has replaced inverted T waves in Inferior leads T wave inversion less evident in Anterior leads Confirmed by JW KAY ([id number]) on 07/18/2020 11:37:03 AM [place] Mauri, Mhpn Incoming E kg Results From [facility] [place] - 07/18/2020 11:37 AM EDT Sinus bradycardia T wave abnormality, consider lateral ischemia Prolonged QT Abnormal ECG When compared with ECG of 14-JUN-2019 10:26, Nonspecific T wave abnormality has replaced inverted T waves in Inferior leads T wave inversion less evident in Anterior leads Confirmed by JW KAY ([id number]) on 07/18/2020 11:37:03 AM [place] Lipaseon 07-18-2020 Lipase [Catalytic activity/Vol] 30 U/L 13 - 60 U/L [place] Metabolic Panelon 07-18-2020 GFR/1.73 sq M predicted among non-blacks MDRD (S/P/Bld) [Vol rate/Area] [place] Comment on above: Stage 1: Some [...] body mass. Additional eGFR calculator available at: http://www.[employer].EarlyShares/multiple_crcl_2012.htm Microscopic Urinalysison Amorphous, UA NOT REPORTED None [place], [place] Bacteria, UA NOT REPORTED None [place] Casts UA NOT REPORTED /LPF [place] Crystals, UA NOT REPORTED None /HPF [place] Epithelial Cells UA 0 TO 2 [place] Mucus, UA NOT REPORTED None [place] Other Observations UA NOT REPORTED NOT REQ. [place] RBC (U) [#/Vol] None [place] Renal Epithelial, UA NOT REPORTED 0 /HPF [place] Trichomonas, UA NOT REPORTED None [facility] [place] WBC, UA 0 TO 2 [place] Yeast, UA NOT REPORTED None [place], [place] - [place] Troponinon 07-18-2020 Troponin I.cardiac [Mass/Vol] NOT REPORTED [place] Troponin T.cardiac [Mass/Vol] NOT REPORTED <0.03 ng/mL [place] Troponin, High Sensitivity 18 ng/L 0 - 22 ng/L [place] Comment on above: High Sensitivity Troponin values cannot be compared with other Troponin methodologies. Patients with high levels of Biotin oral intake (i.e >5mg/day) may have falsely decreased Troponin levels. Samples collected within 8 hours of biotin intake may require additional information for diagnosis. Troponin I.cardiac [Mass/Vol] NOT REPORTED [place] Troponin T.cardiac [Mass/Vol] NOT REPORTED <0.03 ng/mL [place] Troponin, High Sensitivity 21 ng/L 0 - 22 ng/L [place] Comment on above: High Sensitivity Troponin values cannot be compared with other Troponin methodologies. Patients with high levels of Biotin oral intake (i.e >5mg/day) may have falsely decreased Troponin levels. Samples collected within 8 hours of biotin intake may require additional information for diagnosis. Urinalysis Reflex to Culture on 07-18-2020 Bilirubin Urine Negative NEGATIVE [place] Color, UA YELLOW YELLOW [place], [place] Glucose, Ur Negative NEGATIVE [place] Interpretation and review of laboratory results Abnormal [place] Ketones Ql (U) 1+ Abnormal NEGATIVE [place] Leukocyte esterase Test strip Ql (U) Negative NEGATIVE [place] Nitrite, Urine Negative NEGATIVE [place] pH, UA 7.0 [place] Protein (U) [Mass/Vol] Negative NEGATIVE [place] Specific [place], UA 1.020 [place], [place] Turbidity UA CLEAR CLEAR [place] Urinalysis Comments NOT REPORTED [place] Urine Hgb Negative NEGATIVE [place] Urobilinogen, Urine Normal Normal [place] XR CHEST (SINGLE VIEW FRONTA L)on 07-18-2020 Mauri, Mhpn Incoming R adiant Results From [employer] - 07/18/2020 8:54 AM EDT EXAMINATION: ONE XRAY VIEW OF THE CHEST 07/18/2020 8:44 am COMPARISON: June 14, 2019 HISTORY: ORDERING SYSTEM PROVIDED HISTORY: epig pain TECHNOLOGIST PROVIDED HISTORY: epig pain FINDINGS: Is no evidence of focal infiltrate, effusion, pneumothorax. Heart mediastinum appear normal. Visualized bony thorax shows no acute abnormality. IMPRESSION: No acute findings of the chest, stable when compared to previous. [place] EXAMINATION: ONE XRA Y VIEW OF THE CHEST 07/18/2020 8:44 am COMPARISON: June 14, 2019 HISTORY: ORDERING SYSTEM PROVIDED HISTORY: epig pain TECHNOLOGIST PROVIDED HISTORY: epig pain FINDINGS: Is no evidence of focal infiltrate, effusion, pneumothorax. Heart mediastinum appear normal. Visualized bony thorax shows no acute abnormality. [place] No acute findings of the chest, stable when compared to previous. [place] CBC Auto Differentialon 09-0 Basophils (Bld) [#/Vol] 0.05 10*3/uL [place] Basophils/100 WBC (Bld) 1 % 0 - 2 % [place] Differential Type NOT REPORTED [place] Eosinophils (Bld) [#/Vol] 10*3/uL [place] Eosinophils/100 WBC (Bld) 0 % Low 1 - 4 % [place] Erythrocyte distribution width (RBC) [Ratio] 12.9 % 11.8 - 14.4 % [place] Hematocrit (Bld) [Volume fraction] 45.7 % 40.7 - 50.3 % [place] Hemoglobin (Bld) [Mass/Vol] 15.5 g/dL 13 - 17 g/dL [place] Immature granulocytes (Bld) [#/Vol] 10*3/uL [place] Immature granulocytes (Bld) [#/Vol] 0 % 0 [place] Interpretation and review of laboratory results Abnormal [place] Lymphocytes (Bld) [#/Vol] 1.83 10*3/uL [place] Lymphocytes/100 WBC (Bld) 19 % Low 24 - 43 % [place] MCH (RBC) [Entitic mass] 31.1 pg 25.2 - 33.5 pg [place] MCHC (RBC) [Mass/Vol] 33.9 g/dL 28.4 - 34.8 g/dL [place] MCV (RBC) [Entitic vol] 91.6 fL 82.6 - 102.9 fL [place] Monocytes (Bld) [#/Vol] 0.86 10*3/uL [place] Monocytes/100 WBC (Bld) 9 % 3 - 12 % [place] Platelet mean volume (Bld) [Entitic vol] 9.7 fL 8.1 - 13.5 fL [place] Platelets (Bld) [#/Vol] 195 10*3/uL [place] Platelets (Bld) [#/Vol] NOT REPORTED [place] RBC (Bld) [#/Vol] 4.99 10*6/uL 4.21 - 5.77 m/uL [place] RBC morphology finding Nom (Bld) NOT REPORTED [place] Segmented neutrophils/100 WBC (Bld) 71 % High 36 - 65 % [place] Segs Absolute 7.08 [place] WBC (Bld) [#/Vol] 9.9 10*3/uL [place] WBC (Bld) [#/Vol] 0.0 10*3/uL 0.0 per 100 WBC [place] WBC Morphology NOT REPORTED [place] Comprehensive Metabolic Pane l w/ Reflex to MGon 06-14-2019 Albumin [Mass/Vol] 4.4 g/dL 3.5 - 5.2 g/dL [place] Albumin/Globulin [Mass ratio] 1.2 {ratio} [place] ALP [Catalytic activity/Vol] 77 U/L 40 - 129 U/L [place] ALT [Catalytic activity/Vol] 19 U/L 5 - 41 U/L [place] Anion gap [Moles/Vol] 15 mmol/L 9 - 17 mmol/L [place] AST [Catalytic activity/Vol] 22 U/L <40 [place] Bilirubin Ql (U) 0.61 mg/dL 0.3 - 1.2 mg/dL [place] Bun/Cre Ratio 23 High [place] Calcium [Mass/Vol] 10.0 mg/dL 8.6 - 10. 4 mg/dL [place] Chloride [Moles/Vol] 98 mmol/L 98 - 10 7 mmol/L [place] CO2 [Moles/Vol] 24 mmol/L 20 - 31 mmol/L [place] Creatinine [Mass/Vol] 0.82 mg/dL 0.7 - 1.2 mg/dL [place] GFR >60 >60 mL/min [place] GFR Non- >60 >60 mL/min [place] Glucose [Mass/Vol] 98 mg/dL 70 - 99 mg/dL [place] Interpretation and review of laboratory results Abnormal [place] Potassium [Moles/Vol] 4.0 mmol/L 3.7 - 5.3 mmol/L [place] Protein [Mass/Vol] 8.2 g/dL 6.4 - 8.3 g/dL [place] Sodium [Moles/Vol] 137 mmol/L 135 - 144 mmol/L [place] Urea nitrogen [Mass/Vol] 19 mg/dL 6 - 20 mg/dL [place] D-Dimer, Quantitativeon D-Dimer, Quant 0.42 [place], [place] Comment on above: Elevated levels of [...] activity/Vol] 37 U/L 13 - 60 U/L [place] Metabolic Panelon 06-14-2019 GFR/1.73 sq M predicted among non-blacks MDRD (S/P/Bld) [Vol rate/Area] [place] Comment on above: Average GFR for 50-5 9 years old: 93 mL/min/1.73sq m Chronic Kidney Disease: <60 mL/min/1.73sq m Kidney failure: <15 mL/min/1.73sq m eGFR calculated using average adult body mass. Additional eGFR calculator available at: http://www.ACS Global/multiple_crcl_2012.htm Stage 1: Some kidney damage normal GFR Stage 2: Mild kidney damage GFR 60-89 Stage 3: Moderate kidney damage GFR 30-59 Stage 4: Severe kidney damage GFR 15-29 Stage 5: Severe kidney damage GFR <15 ESRD - chronic treatment by dialysis or transplant Troponinon 06-14-2019 Troponin I.cardiac [Mass/Vol] [place], [place] Comment on above: Reference Range: <0.03 [...] diagnosis. Troponin T.cardiac [Mass/Vol] ug/L <0.03 ng/mL [place] Comment on above: Troponin T results c annot be compared to Troponin-I results. Troponin, High Sensitivity NOT REPORTED 0 - 22 ng/L [place] Troponin I.cardiac [Mass/Vol] [place] Comment on above: Reference Range: <0.03 [...] diagnosis. Troponin T.cardiac [Mass/Vol] ug/L <0.03 ng/mL [place] Comment on above: Troponin T results c annot be compared to Troponin-I results. Troponin, High Sensitivity NOT REPORTED 0 - 22 ng/L [place] APTTon 01-13-2018 aPTT 24.4 s Normal 20.5-30.5 [facility] Comment on above: Result Comment: [facility] [employer] [address] [place] [address] [phone] Performed By: #### C BC, PTT, TROPI, GLYHGB ####[facility] [address] [place] [address] Basic Metabolic Profon 01-13 (cont.) Normal [facility] Comment on above: Result Comment: Aver age GFR for 50-59 years old: 93 mL/min/1.73sq mChronic Kidney Disease: <60 mL/min/1.73sq mKidney failure: <15 mL/min/1.73sq meGFR calculated using average adult body mass. Additional eGFR calculator available at:http://www.[employer].EarlyShares/multiple_crcl_2012.htm[address] [address] Performed By: #### C BC, PTT, TROPI, GLYHGB ####[address] [address] Anion gap 9 mmol/L Normal 9-17 [facility] Comment on above: Performed By: #### C BC, PTT, TROPI, GLYHGB ####[facility] [place] [address] Calcium 9.3 mg/dL Normal 8.6-10.4 [facility] Comment on above: Performed By: #### C BC, PTT, TROPI, GLYHGB ####[address] [place] [address] Chloride 102 mmol/L Normal 98-107 [facility] Comment on above: Performed By: #### C BC, PTT, TROPI, GLYHGB ####[address] [address] CO2 24 mmol/L Normal 20-31 [facility] Comment on above: Performed By: #### C BC, PTT, TROPI, GLYHGB ####[address] [address] Creatinine 0.75 mg/dL Normal 0.70-1.20 [facility] Comment on above: Performed By: #### C BC, PTT, TROPI, GLYHGB ####[address] [place] [address] eGFR (non-black) mL/min/{1.73_m2} Normal >60 [facility] Comment on above: Performed By: #### C BC, PTT, TROPI, GLYHGB ####[facility] [place] [address] Glucose mass conc 104 mg/dL High 70-99 [facility] Comment on above: Performed By: #### C BC, PTT, TROPI, GLYHGB ####[address] [place] [address] Potassium molar conc 5.0 mmol/L Normal 3.7-5.3 [facility] Comment on above: Result Comment: TEST CONFIRMED Performed By: #### C BC, PTT, TROPI, GLYHGB ####[address] [address] Sodium 135 mmol/L Normal 135-144 [facility] Comment on above: Performed By: #### C BC, PTT, TROPI, GLYHGB ####[address] [address] Urea nitrogen 12 mg/dL Normal 6-20 [facility] Comment on above: Performed By: #### C BC, PTT, TROPI, GLYHGB ####[address] [address] BUN/CRE Ratio NOT REPORTED Normal -20 [facility] Comment on above: Performed By: #### C BC, PTT, TROPI, GLYHGB ####[address] [address] Staging: NOT REPORTED Normal [facility] Comment on above: Performed By: #### C BC, PTT, TROPI, GLYHGB ####[address] [address] (cont.) Normal [facility] Comment on above: Result Comment: Aver age GFR for 50-59 years old: 93 mL/min/1.73sq mChronic Kidney Disease: <60 mL/min/1.73sq mKidney failure: <15 mL/min/1.73sq meGFR calculated using average adult body mass. Additional eGFR calculator available at:http://www.[employer].com/multiple_crcl_2012.htm[address] [address] Performed By: #### C BC, PTT, TROPI, GLYHGB ####[address] [address] Anion gap 11 mmol/L Normal 9-17 [facility] Comment on above: Performed By: #### C BC, PTT, TROPI, GLYHGB ####[facility] [address] [place] [address] Calcium 8.6 mg/dL Normal 8.6-10.4 [facility] Comment on above: Performed By: #### C BC, PTT, TROPI, GLYHGB ####[facility] [address] [place] [address] Chloride 100 mmol/L Normal 98-107 [facility] Comment on above: Performed By: #### C BC, PTT, TROPI, GLYHGB ####[facility] [address] [place] [address] CO2 24 mmol/L Normal 20-31 [facility] Comment on above: Performed By: #### C BC, PTT, TROPI, GLYHGB ####[facility] [place] [address] Creatinine 0.64 mg/dL Low 0.70-1.20 [facility] Comment on above: Performed By: #### C BC, PTT, TROPI, GLYHGB ####[facility] [address] [place] [address] eGFR (non-black) mL/min/{1.73_m2} Normal >60 [facility] Comment on above: Performed By: #### C BC, PTT, TROPI, GLYHGB ####[facility] [address] [place] [address] Glucose mass conc 102 mg/dL High 70-99 [facility] Comment on above: Performed By: #### C BC, PTT, TROPI, GLYHGB ####[facility] [place] [address] Potassium molar conc 3.5 mmol/L Low 3.7-5.3 [facility] Comment on above: Performed By: #### C BC, PTT, TROPI, GLYHGB ####[address] [place] [address] Sodium 135 mmol/L Normal 135-144 [facility] Comment on above: Performed By: #### C BC, PTT, TROPI, GLYHGB ####[facility] [address] [place] [address] Urea nitrogen 12 mg/dL Normal -20 [facility] Comment on above: Performed By: #### C BC, PTT, TROPI, GLYHGB ####[address] [address] BUN/CRE Ratio NOT REPORTED Normal - [facility] Comment on above: Performed By: #### C BC, PTT, TROPI, GLYHGB ####[address] [address] Staging: NOT REPORTED Normal [facility] Comment on above: Performed By: #### C BC, PTT, TROPI, GLYHGB ####[address] [address] Discharge Summaryon 01-14-20 18 HIM IP Note OR Tracer Lathe Set Up Operator Normal [facility] Magnesiumon 01-13-2018 Magnesium 2.2 mg/dL Normal 1.6-2.6 [facility] Comment on above: Result Comment: [employer] [facility] [place] [address] Performed By: #### C BC, PTT, TROPI, GLYHGB ####[address] [address] Magnesium 2.1 mg/dL Normal 1.6-2.6 [facility] Comment on above: Result Comment: [employer] [facility] [place] [address] Performed By: #### C BC, PTT, TROPI, GLYHGB ####[address] [address] Plan of Careon 01-13-2018 HIM IP Note OR Tracer Lathe Set Up Operator Normal [facility] Progress Noteon 01-13-2018 HIM IP Note OR Tracer Lathe Set Up Operator Normal [facility] HIM IP Note OR Tracer Lathe Set Up Operator Normal [facility] HIM IP Note OR Tracer Lathe Set Up Operator Normal [facility] APTTon 01-12-2018 aPTT 47.5 s High 20.5-30.5 [facility] Comment on above: Result Comment: [facility] [address] [place] [address] Performed By: #### P TT ####[address] [address] aPTT 48.3 s High 20.5-30.5 [facility] Comment on above: Result Comment: [facility] [address] [place] [address] Performed By: #### P LT, PTT ####[address] [address] aPTT 50.8 s High 20.5-30.5 [facility] Comment on above: Result Comment: [facility] [address] [place] [address] Performed By: #### P TT ####[address] [address] Platelet Counton 01-12-2018 Platelets 154 10*3/uL Normal 138-453 [facility] Comment on above: Result Comment: [facility] [address] [place] [address] Performed By: #### P LT, PTT ####[address] [address] Progress Noteon 01-12-2018 HIM IP Note OR Tracer Lathe Set Up Operator Normal [facility] APTTon 01-11-2018 aPTT 38.0 s High 20.5-30.5 [facility] Comment on above: Result Comment: [facility] [address] [place] [address] Performed By: #### P TT ####[address] [address] aPTT 35.3 s High 20.5-30.5 [facility] Comment on above: Result Comment: [facility] [address] [place] [address] Performed By: #### P TT ####[address] [address] aPTT 30.5 s Normal 20.5-30.5 [facility] Comment on above: Result Comment: [facility] [address] [place] [address] Performed By: #### P TT ####[address] [address] CBCon 01-11-2018 Erythrocyte distribution width Auto Ratio (RBC) 14.0 % Normal 11.8-14.4 [facility] Comment on above: Performed By: #### C BC, CP, LIPR, MG ####[address] [address] Erythrocytes (RBC) 0.0 per 100 WBC Normal 0.0 M [facility] Comment on above: Result Comment: [facility] [address] [place] [address] Performed By: #### C BC, CP, LIPR, MG ####[address] [address] Erythrocytes (RBC) 4.36 10*6/uL Normal 4.21-5.77 [facility] Comment on above: Performed By: #### C BC, CP, LIPR, MG ####[facility] [address] [place] [address] Hematocrit (HCT) 40.6 % Low 40.7-50.3 [facility] Comment on above: Performed By: #### C BC, CP, LIPR, MG ####[address] [address] Hemoglobin mass conc (Bld) 13.3 g/dL Normal 13.0-17.0 [facility] Comment on above: Performed By: #### C BC, CP, LIPR, MG ####[address] [address] MCH 30.5 pg Normal 25.2-33.5 [facility] Comment on above: Performed By: #### C BC, CP, LIPR, MG ####[address] [address] MCHC mass conc (RBC) 32.8 g/dL Normal 28.4-34.8 [facility] Comment on above: Performed By: #### C BC, CP, LIPR, MG ####[address] [address] MCV 93.1 fL Normal 82.6-102.9 [facility] Comment on above: Performed By: #### C BC, CP, LIPR, MG ####[facility] [address] [place] [address] Platelet mean volume (PMV) 10.1 fL Normal 8.1-13.5 [facility] Comment on above: Performed By: #### C BC, CP, LIPR, MG ####[facility] [place] [address] Platelets 153 10*3/uL Normal 138-453 [facility] Comment on above: Performed By: #### C BC, CP, LIPR, MG ####[address] [address] WBC (Leukocytes) 9.5 10*3/uL Normal 3.5-11.3 [facility] Comment on above: Performed By: #### C BC, CP, LIPR, MG ####[address] [address] Comp Metabolic Profon 2017 (cont.) Normal [facility] Comment on above: Result Comment: Aver age GFR for 50-59 years old: 93 mL/min/1.73sq mChronic Kidney Disease: <60 mL/min/1.73sq mKidney failure: <15 mL/min/1.73sq meGFR calculated using average adult body mass. Additional eGFR calculator available at:http://www.ACS Global/multiple_crcl_2012.htm[address] [address] Performed By: #### C BC, CP, LIPR, MG ####[address] [address] Alanine aminotransferase (ALT) 17 U/L Normal 5-41 [facility] Comment on above: Performed By: #### C BC, CP, LIPR, MG ####[address] [address] Albumin 3.6 g/dL Normal 3.5-5.2 [facility] Comment on above: Performed By: #### C BC, CP, LIPR, MG ####[address] [address] Albumin/Globulin Ratio 1.3 {ratio} Normal 1.0-2.5 [facility] Comment on above: Performed By: #### C BC, CP, LIPR, MG ####[address] [place] [address] Alkaline Phos 76 U/L Normal 40-129 [facility] Comment on above: Performed By: #### C BC, CP, LIPR, MG ####[facility] [address] [place] [address] Anion gap 14 mmol/L Normal 9-17 [facility] [facility] Comment on above: Performed By: #### C BC, CP, LIPR, MG ####[facility] [address]cvp[address] [place] [address] Aspartate aminotransferase (AST) 15 U/L Normal <40 [facility] Comment on above: Performed By: #### C BC, CP, LIPR, MG ####[facility] Es[address]ip[address]ovzy27[address] [place] [address] Bilirubin Ql (U) 1.13 mg/dL Normal 0.3-1.2 [facility] Comment on above: Performed By: #### C BC, CP, LIPR, MG ####[facility] Ad[address]eio[address] [place] [address] Calcium 8.4 mg/dL Low 8.6-10.4 [facility] Comment on above: Performed By: #### C BC, CP, LIPR, MG ####[facility] [address]spyby[address] [place] [address] Chloride 97 mmol/L Low 98-107 [facility] Comment on above: Performed By: #### C BC, CP, LIPR, MG ####[facility] [address]if[address]qtlti[address] [place] [address] CO2 23 mmol/L Normal 20-31 [facility] Comment on above: Performed By: #### C BC, CP, LIPR, MG ####[facility] Ekkcrfneetab32[address] [place] [address] Creatinine 0.63 mg/dL Low 0.70-1.20 [facility] Comment on above: Performed By: #### C BC, CP, LIPR, MG ####[facility] Iqulwrxkkkxm6615 [place] [address] eGFR (non-black) mL/min/{1.73_m2} Normal >60 [facility] Comment on above: Performed By: #### C BC, CP, LIPR, MG ####[facility] Utzwthqxtxex5[address] [place] [address] Glucose mass conc 107 mg/dL High 70-99 [facility] Comment on above: Performed By: #### C BC, CP, LIPR, MG ####[facility] [place] [address] Potassium molar conc 3.6 mmol/L Low 3.7-5.3 [facility] Comment on above: Performed By: #### C BC, CP, LIPR, MG ####[facility] Fqpqwkokygco1735 [place] [address] Protein 6.4 g/dL Normal 6.4-8.3 [facility] Comment on above: Performed By: #### C BC, CP, LIPR, MG ####[facility] [place] [address] Sodium 134 mmol/L Low 135-144 [facility] Comment on above: Performed By: #### C BC, CP, LIPR, MG ####[facility] Gjvfcisigeic2[address] [place] [address] Urea nitrogen 19 mg/dL Normal 6-20 [facility] Comment on above: Performed By: #### C BC, CP, LIPR, MG ####[facility] Wy[address]abrgqldg0184 [place] [address] BUN/CRE Ratio NOT REPORTED Normal 9-20 [facility] Comment on above: Performed By: #### C BC, CP, LIPR, MG ####[address] [address] Staging: NOT REPORTED Normal [facility] Comment on above: Performed By: #### C BC, CP, LIPR, MG ####[address] [address] Hemoglobin A1Con 01-11-2018 Glucose mass conc 114 mg/dL Normal [facility] Comment on above: Result Comment: The ADA and AACC recommend providing the estimated average glucose result to permit better patient understanding of their HBA1c result.[address] [address] Performed By: #### C BC, PTT, TROPI, GLYHGB ####[address] [address] Hemoglobin A1c/Hemoglobin.total mass fraction (Bld) 5.6 % Normal 4.0-6.0 [facility] Comment on above: Performed By: #### C BC, PTT, TROPI, GLYHGB ####[address] [address] Lipid Profileon 01-11-2018 Cholesterol 123 mg/dL Normal <200 [facility] Comment on above: Result Comment: Chol esterol Guidelines: <200 Desirable 200-240 Borderline >240 Undesirable Performed By: #### C BC, CP, LIPR, MG ####[address] [address] Cholesterol to HDL Ratio 2.0 {ratio} Normal <5 [facility] Comment on above: Performed By: #### C BC, CP, LIPR, MG ####[address] [address] HDL Cholesterol 63 mg/dL Normal >40 [facility] Comment on above: Result Comment: HDL Guidelines: <40 Undesirable 40-59 Borderline >59 Desirable Performed By: #### C BC, CP, LIPR, MG ####[facility] [address] [place] [address] LDL Cholesterol 38 mg/dL Normal 0-130 [facility] Comment on above: Result Comment: LDL Guidelines: <100 Desirable 100-129 Near to/above Desirable 130-159 Borderline >159 UndesirableDirect (measured) LDL and calculated LDL are not interchangeable tests. Performed By: #### C BC, CP, LIPR, MG ####[address] [address] Triglyceride 111 mg/dL Normal <150 [facility] Comment on above: Result Comment: Trig lyceride Guidelines: <150 Desirable 150- 199 Borderline 200-499 High >499 Very high Based on AHA Guidelines for fasting triglyceride, July 2012.[employer] [address] [place] [address] Performed By: #### C BC, CP, LIPR, MG ####[address] [address] Cholesterol in VLDL mass conc NOT REPORTED Normal 1-30 [facility] Comment on above: Performed By: #### C BC, CP, LIPR, MG ####[address] [address] Magnesiumon 01-11-2018 Magnesium 2.1 mg/dL Normal 1.6-2.6 [facility] Comment on above: Result Comment: [employer] [address] [place] [address] Performed By: #### C BC, CP, LIPR, MG ####[address] [address] Plan of Careon 01-11-2018 HIM IP Note OR Tracer Lathe Set Up Operator Normal [facility] HIM IP Note OR Tracer Lathe Set Up Operator Normal [facility] Progress Noteon 01-11-2018 HIM IP Note OR Tracer Lathe Set Up Operator Normal [facility] Troponinon 01-11-2018 Troponin I.cardiac mass conc Normal [facility] Comment on above: Result Comment: Refe rence Range: <0.03 Within reference range. 0.03-0.09 Possible myocardial damage.Repeat at appropriate intervals to rule out chronic elevation. >= 0.10 Indicative of myocardial damage.Patients with high levels of Biotin oral intake (i.e >5mg/day) may have falsely decreased Troponin T levels. Samples collected within 8 hours of biotin intake may require additional information for diagnosis.[employer] [address] [place] [address] Performed By: #### T DARYNI ####[address] [address] Troponin T.cardiac mass conc ug/L Normal <0.03 [facility] Comment on above: Result Comment: Trop onin T results cannot be compared to Troponin-I results. Performed By: #### T DARYNI ####[address] [address] APTTon 01-10-2018 aPTT 23.8 s Normal 20.5-30.5 [facility] Comment on above: Result Comment: [employer] [address] [place] [address] Performed By: #### C BC, PTT, TROPI, GLYHGB ####[facility] [address] [place] [address] CBCon 01-10-2018 Erythrocyte distribution width Auto Ratio (RBC) 14.2 % Normal 11.8-14.4 [facility] Comment on above: Performed By: #### C BC, PTT, TROPI, GLYHGB ####[facility] [address] [place] [address] Erythrocytes (RBC) 4.47 10*6/uL Normal 4.21-5.77 [facility] Comment on above: Performed By: #### C BC, PTT, TROPI, GLYHGB ####[facility] [address] [place] [address] Erythrocytes (RBC) 0.0 per 100 WBC Normal 0.0 [facility] Comment on above: Result Comment: [facility] [address] [place] [address] Performed By: #### C BC, PTT, TROPI, GLYHGB ####[address] [address] Hematocrit (HCT) 41.3 % Normal 40.7-50.3 [facility] Comment on above: Performed By: #### C BC, PTT, TROPI, GLYHGB ####[address] [address] Hemoglobin mass conc (Bld) 13.5 g/dL Normal 13.0-17.0 [facility] Comment on above: Performed By: #### C BC, PTT, TROPI, GLYHGB ####[address] [address] MCH 30.2 pg Normal 25.2-33.5 [facility] Comment on above: Performed By: #### C BC, PTT, TROPI, GLYHGB ####[address] [address] MCHC mass conc (RBC) 32.7 g/dL Normal 28.4-34.8 [facility] Comment on above: Performed By: #### C BC, PTT, TROPI, GLYHGB ####[address] [address] MCV 92.4 fL Normal 82.6-102.9 [facility] Comment on above: Performed By: #### C BC, PTT, TROPI, GLYHGB ####[address] [address] Platelet mean volume (PMV) 10.1 fL Normal 8.1-13.5 [facility] Comment on above: Performed By: #### C BC, PTT, TROPI, GLYHGB ####[facility] [address] [place] [address] Platelets 160 10*3/uL Normal 138-453 [facility] Comment on above: Performed By: #### C BC, PTT, TROPI, GLYHGB ####[facility] [place] [address] WBC (Leukocytes) 6.8 10*3/uL Normal 3.5-11.3 [facility] Comment on above: Performed By: #### C BC, PTT, TROPI, GLYHGB ####[facility] [place] [address] History and Physicalon 01-10 HIM IP Note OR Tracer Lathe Set Up Operator Normal [facility] Plan of Careon 01-10-2018 HIM IP Note OR Tracer Lathe Set Up Operator Normal [facility] Progress Noteon 01-10-2018 HIM IP Note OR Tracer Lathe Set Up Operator Normal [facility] Troponinon 01-10-2018 Troponin I.cardiac mass conc Normal [facility] Comment on above: Result Comment: Refe rence Range: <0.03 Within reference range. 0.03-0.09 Possible myocardial damage.Repeat at appropriate intervals to rule out chronic elevation. >= 0.10 Indicative of myocardial damage.Patients with high levels of Biotin oral intake (i.e >5mg/day) may have falsely decreased Troponin T levels. Samples collected within 8 hours of biotin intake may require additional information for diagnosis.[facility] [employer] [address] [place] [address] Performed By: #### C BC, PTT, TROPI, GLYHGB ####[facility] [place] [address] Troponin T.cardiac mass conc ug/L Normal <0.03 [facility] Comment on above: Result Comment: Trop onin T results cannot be compared to Troponin-I results. Performed By: #### C BC, PTT, TROPI, GLYHGB ####[facility] [address] [place], [place] [address] Vital Signs Date Time Vital Sign Value Performing Clinician Hilda marie 2023 06:08-0500 SaO2% (BldA) [Mass fraction] 99 % Nadia Fitzpatrick MD Work Phone: [facility] 2023 05:49-0500 Body temperature 100.09 [degF] Nadia Fitzpatrick MD Work Phone: [facility] 2023 05:49-0500 Diastolic blood pressure 52 mm[Hg] Nadia Fitzpatrick MD Work Phone: [facility] 2023 05:49-0500 Heart rate 89 /min Nadia Fitzpatrick MD Work Phone: [facility] 2023 05:49-0500 Respiratory rate 18 /min Nadia Fitzpatrick MD Work Phone: [facility] 2023 05:49-0500 Systolic blood pressure 151 mm[Hg] Nadia Fitzpatrick MD Work Phone: [facility] 09-18-2023 13:40-0500 Diastolic blood pressure 68 mm[Hg] Shaheen Chappell MD Work Phone: [facility] 09-18-2023 13:40-0500 Heart rate 68 /min Shaheen Chappell MD Work Phone: [facility] [employer] [facility] 09-18-2023 13:40-0500 SaO2% (BldA) [Mass fraction] 97 % Shaheen Chappell MD Work Phone: [facility] 09-18-2023 13:40-0500 Systolic blood pressure 101 mm[Hg] Shaheen Chappell MD Work Phone: [facility] 09-18-2023 13:10-0500 Respiratory rate 16 /min Shaheen Chappell MD Work Phone: [facility] 09-18-2023 13:00-0500 Body temperature 97 [degF] Shaheen Chappell MD Work Phone: [facility] 09-18-2023 08:35-0500 Body height 167.6 cm Shaheen Chappell MD Work Phone: [facility] 09-18-2023 08:35-0500 Body mass index (BMI) [Ratio] 27.44 kg/m2 Shaheen Chappell MD Work Phone: [facility] 09-18-2023 08:35-0500 Body weight 77.11 kg Shaheen Chappell MD Work Phone: [facility] 08-14-2023 14:38-0500 Body height 167.6 cm Nikhil Mohr MD Work Phone: [facility] 08-14-2023 14:38-0500 Body mass index (BMI) [Ratio] 26.87 kg/m2 Nikhil Mohr MD Work Phone: [facility] 08-14-2023 14:38-0500 Body weight 75.52 kg Nikhil Mohr MD Work Phone: [facility] 08-14-2023 14:38-0500 Diastolic blood pressure 69 mm[Hg] Nikhil Mohr MD Work Phone: [facility] 08-14-2023 14:38-0500 Heart rate 72 /min Nikhil Mohr MD Work Phone: [facility] 08-14-2023 14:38-0500 SaO2% (BldA) [Mass fraction] 98 % Nikhil Mohr MD Work Phone: [facility] 08-14-2023 14:38-0500 Systolic blood pressure 102 mm[Hg] Nikhil Mohr MD Work Phone: [facility] 07-16-2023 13:41-0400 Body height 167.6 cm Jennie Hernandez MD Work Phone: [facility] 07-16-2023 13:41-0400 Body mass index (BMI) [Ratio] 27.11 kg/m2 Jennie Hernandez MD Work Phone: 6(727)461-094816 [place] [address] 07-16-2023 13:41-0400 Body weight 76.2 kg Jennie Hernandez MD Work Phone: 1(844)488-356228 [place] [address] 07-04-2023 09:34-0400 Body height 167.6 cm Jennie Hernandez MD Work Phone: 1(601)000-138128 [place] [address] 07-04-2023 09:34-0400 Body mass index (BMI) [Ratio] 27.12 kg/m2 Jennie Hernandez MD Work Phone: 6(066)332-869916 [place] [address] 07-04-2023 09:34-0400 Body weight 76.2 kg Jennie Hernandez MD Work Phone: 4(985)755-570728 [place] [address] 06-10-2023 10:18-0400 Body height 167.6 cm Jennie Hernandez MD Work Phone: 3(049)737-326828 [place] [address] 06-10-2023 10:18-0400 Body mass index (BMI) [Ratio] 27.12 kg/m2 Jennie Hernandez MD Work Phone: 3(139)816-421928 [place] [address] 06-10-2023 10:18-0400 Body weight 76.2 kg Jennie Hernandez MD Work Phone: 5(302)957-341728 [place] [address] 05-19-2023 09:07-0400 Body height 167.6 cm Jennie Hernandez MD Work Phone: 2(855)328-533428 [place] [address] 05-19-2023 09:07-0400 Body mass index (BMI) [Ratio] 27.12 kg/m2 Jennie Hernandez MD Work Phone: 6(167)721-026028 [place] [address] 05-19-2023 09:07-0400 Body weight 76.2 kg Jennie Hernandez MD Work Phone: 9(140)116-413316 [place] [address] 04-18-2023 12:33-0400 Body height 167.6 cm Jennie Hernandez MD Work Phone: 6(525)795-440816 [place] [address] 04-18-2023 12:33-0400 Body mass index (BMI) [Ratio] 26.63 kg/m2 Jennie Hernandez MD Work Phone: [facility] [employer] [facility] 04-18-2023 12:33-0400 Body weight 74.84 kg Jennie Hernandez MD Work Phone: [facility] 02-25-2023 08:48-0400 Body height 167.6 cm Jennie Hernandez MD Work Phone: [facility] 02-25-2023 08:48-0400 Body mass index (BMI) [Ratio] 26.63 kg/m2 Jennie Hernandez MD Work Phone: [facility] 02-25-2023 08:48-0400 Body weight 74.84 kg Jennie Hernandez MD Work Phone: [facility] 12-31-2022 13:46-0400 Body temperature 97.3 [degF] Rosa Garg DO Work Phone: [facility] [employer] 12-31-2022 13:46-0400 Diastolic blood pressure 71 mm[Hg] Rosa Garg DO Work Phone: [employer] 12-31-2022 13:46-0400 Heart rate 72 /min Rosa Garg DO Work Phone: [facility] [employer] 12-31-2022 13:46-0400 Respiratory rate 16 /min Rosa Garg DO Work Phone: [facility] [employer] 12-31-2022 13:46-0400 SaO2% (BldA) [Mass fraction] 92 % Rosa Garg DO Work Phone: [employer] 12-31-2022 13:46-0400 Systolic blood pressure 102 mm[Hg] Rosa Garg DO Work Phone: [facility] [employer] 12-31-2022 02:40-0400 Body mass index (BMI) [Ratio] 25.34 kg/m2 Rosa Garg DO Work Phone: [facility] [employer] 12-31-2022 02:40-0400 Body weight 71.2 kg Rosa Garg DO Work Phone: [facility] 12-30-2022 12:46-0400 Body height 167.6 cm Rosa Garg DO Work Phone: [facility] 05-31-2022 14:26-0400 Blood Pressure Location Julian HOWELLL [facility] 05-31-2022 14:26-0400 Diastolic blood pressure 60 mm[Hg] Julian HOWELLL [facility] 05-31-2022 14:26-0400 Heart rate 66 /min Julian HOWELLL [facility] 05-31-2022 14:26-0400 Respiratory rate 16 /min Julian HOWELLL [facility] 05-31-2022 14:26-0400 Systolic blood pressure 108 mm[Hg] Julian HOWELLL [facility] [place] 03-09-2021 12:45-0400 Respiratory rate 16 /min Julian Dougherty MD [employer] Work Phone: 03-09-2021 10:28-0400 Body height 167.6 cm Julian Dougherty MD [employer] Phone: 03-09-2021 10:28-0400 Body mass index (BMI) [Ratio] 25.5 kg/m2 Julian Dougherty MD [employer] Work Phone: 03-09-2021 10:28-0400 Body temperature 98.49 [degF] Julian Dougherty MD [employer] Phone: 03-09-2021 10:28-0400 Body weight 71.67 kg Julian Dougherty MD [employer] Phone: 03-09-2021 10:28-0400 Heart rate 79 /min Julian Dougherty MD [employer] Work Phone: 03-09-2021 10:28-0400 SaO2% (BldA) [Mass fraction] 97 % Julian Dougherty MD [facility] [employer] Work Phone: 07-18-2020 09:15-0400 Pulse Oximetry 97 % Sebastian [facility] 07-18-2020 08:30-0400 BP Diastolic 96 mm[Hg] Sebastian [facility] 07-18-2020 08:30-0400 BP Systolic 135 mm[Hg] Sebastian [facility] 07-18-2020 08:18-0400 Body Temperature 98.01 [degF] [facility] 07-18-2020 08:18-0400 Pulse (Heart Rate) 84 /min [facility] 07-18-2020 08:18-0400 Respiratory Rate 16 /min [facility] 09-12-2019 02:36-0500 BP Diastolic 95 mm[Hg] [facility] [place] 09-12-2019 02:36-0500 BP Systolic 138 mm[Hg] [facility] [place] 09-12-2019 01:27-0500 Body Temperature 97.3 [degF] [facility] 09-12-2019 01:27-0500 Pulse (Heart Rate) 86 /min [facility] 09-12-2019 01:27-0500 Pulse Oximetry 97 % [facility] [place] 09-12-2019 01:27-0500 Respiratory Rate 18 /min [facility] 06-14-2019 12:44-0400 BP Diastolic 89 mm[Hg] [facility] [place] 06-14-2019 12:44-0400 BP Systolic 158 mm[Hg] [facility] , [place] 06-14-2019 12:44-0400 Pulse (Heart Rate) 68 /min Pablo Dewitt [facility], [place] 06-14-2019 12:44-0400 Pulse Oximetry 95 % Pablo Dewitt [facility] , [place] 06-14-2019 12:44-0400 Respiratory Rate 12 /min Pablo Dewitt [facility], [place] 06-14-2019 10:15-0400 BMI (Body Mass Index) 24.53 kg/m2 [facility], [place] 06-14-2019 10:15-0400 Body Temperature 98.01 [degF] Pablo Dewitt [facility], [place] 06-14-2019 10:15-0400 Body weight 68.95 kg Pablo Portillo [facility] , [place] Encounters Encounter Date Encounter Type Care Provider Facility Start: 11-24-2023 End: 11-24-2023 ambulatory ROMARIO MAN Not Available Start: 2023 End: 2023 Emergency department patient visit [facility] Start: 2023 End: 2023 Emergency department patient visit Nadia Fitzpatrick MD Work Phone: [facility] ED Comment on above: Viral illness (Prima ry Dx) Start: 09-18-2023 End: 09-18-2023 [facility] Start: 09-18-2023 End: 09-18-2023 Subsequent hospital visit by physician Shaheen Chappell MD Work Phone: [facility] Comment on above: Sacroiliitis Start: 09-09-2023 [facility] Start: 09-09-2023 Encounter for other preprocedural examination [facility] Start: 08-27-2023 [facility] Start: 08-14-2023 End: 08-14-2023 Office outpatient new 45 minutes Nikhil Mohr MD Work Phone: [facility] Comment on above: 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); Hyperreflexia Start: 08-13-2023 End: 08-13-2023 ambulatory [facility] Start: 08-13-2023 End: 08-13-2023 Encounter for other preprocedural examination [facility] Start: 07-16-2023 ambulatory JENNIE HERNANDEZ [facility] Start: 07-16-2023 End: 07-16-2023 Subsequent hospital visit by physician Jennie Hernandez MD Work Phone: [facility] Procedure Images Comment on above: Arrived Start: 07-16-2023 End: 07-16-2023 Patient encounter procedure Jennie Hernandez MD Work Phone: [facility] Comment on above: 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); Pain of both sacroiliac joints Start: 07-04-2023 ambulatory JENNIE Gordon MARY [facility] Start: 07-04-2023 End: 07-04-2023 Office outpatient visit 15 minutes Jennie Hernandez MD Work Phone: [facility] Comment on above: 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); Pain of both sacroiliac joints; Polyneuropathy Start: 06-10-2023 ambulatory JENNIE Heidi HERNANDEZ [facility] Start: 06-10-2023 End: 06-10-2023 Patient encounter procedure Jennie Hernandez MD Work Phone: [facility] Comment on above: Osteoarthritis of ri ght sacroiliac joint (Primary Dx); Pain of right sacroiliac joint; Polyneuropathy; Lower extremity numbness; Osteoarthritis of left sacroiliac joint; Pain of left sacroiliac joint; Lumbar spondylosis Start: 05-19-2023 ambulatory [facility] Start: 05-19-2023 End: 05-19-2023 Office outpatient visit 15 minutes Jennie Hernandez MD Work Phone: [facility] Comment on above: Osteoarthritis of le ft sacroiliac joint (Primary Dx); Pain of left sacroiliac joint; Lumbar spondylosis Start: 04-18-2023 ambulatory JENNIE Heidi MARY [facility] Start: 04-18-2023 End: 04-18-2023 Patient encounter procedure Jennie Hernandez MD Work Phone: [facility] Comment on above: Osteoarthritis of le ft sacroiliac joint (Primary Dx) Start: 04-18-2023 End: 04-18-2023 Subsequent hospital visit by physician Jennie Hernandez MD Work Phone: [facility] Procedure Images Comment on above: Arrived Start: 04-15-2023 ambulatory JENNIE Heidi MARY [facility] Start: 02-25-2023 ambulatory JENNIE Gordon MARY [facility] Start: 02-25-2023 End: 02-25-2023 Office outpatient new 30 minutes Jennie Hernandez MD Work Phone: [facility] Comment on above: Osteoarthritis of le ft sacroiliac joint (Primary Dx); Lumbar spondylosis; Lower extremity numbness Start: 01-13-[address] ROMARIO MAN [facility] ity:[facility] Start: 01-08-2023 End: 01-09-[address] ROMARIO MAN Facility:[facility] Start: 12-30-2022 End: 12-31-2022 Evaluation and management of inpatient ROMARIO MAN [facility] Start: 12-30-2022 End: 12-31-2022 Evaluation and management of inpatient Rosa Garg DO Work Phone: [facility] Comment on above: Chest pain, [...] examination without abnormal findings DR ROMARIO MAN [facility] Start: 09-11-2022 End: 09-12-[address] ROMARIO MAN Facility:[facility] Start: 09-11-2022 End: 09-12-2022 Encounter for general adult medical examination without abnormal findings DR ROMARIO MAN Facility:[facility] Start: 08-22-2022 End: 08-22-[address] NELSON IBRAHIM . Facility:[facility] Start: 07-10-2022 End: 07-11-2022 ambulatory Julian DIAZ Facility:[facility] Start: 07-10-2022 End: 07-10-2022 Patient encounter procedure Julian DIAZ [facility] Start: 06-26-2022 End: 06-27-2022 ambulatory Julian DIAZ Facility:[id number] Start: 06-24-2022 Encounter for preprocedural laboratory examination DR JULIAN DIAZ . [facility] Start: 06-22-2022 End: 06-23-[address] JULIAN DIAZ . Facility:[facility] Start: 06-22-2022 End: 06-23-2022 Encounter for preprocedural laboratory examination DR JULIAN DIAZ . Facility: Start: 05-31-2022 End: 06-01-2022 ambulatory ROMARIO MAN PROVIDER Facility:[facility] Start: 05-31-2022 End: 05-31-2022 Patient encounter procedure Julian DIAZ General Surgery [facility] [place] Start: 05-30-2022 End: 05-31-[address] NELSON IBRAHIM . Facility:[facility] Start: 05-15-2022 ambulatory Julian DIAZ Facility :[facility] Start: 04-30-2022 End: 04-30-[address] NELSON IBRAHIM . Facility:[facility] Start: 04-23-2022 End: 04-23-[address] NELSON IBRAHIM . Facility:[facility] Start: 04-03-2022 End: 04-04-2022 ambulatory JULIANE MASSEY . Facility:[facility] Start: 03-25-2022 End: 03-25-2022 Subsequent hospital visit by physician Romario Man MD Work Phone: [facility] Laboratory Comment on above: Chronic fatigue Start: 03-12-2022 End: 03-13-[address] ROMARIO MAN Facility:[facility]1 Start: 03-12-2022 End: 03-12-[address] ROMARIO MAN Facility:[facility] Start: 02-21-2022 End: 02-22-[address] NELSON IBRAHIM . Facility:[facility] Start: 02-05-2022 End: 02-05-[address] ROMARIO MAN Facility:[facility] Start: 03-09-2021 End: 03-09-2021 Emergency department patient visit Julian Dougherty MD [facility] ED Comment on above: Acute gout of right wrist, unspecified cause (Primary Dx) Start: 08-17-2020 End: 08-17-2020 Subsequent hospital visit by physician [facility] Cardiology Stress Room [facility] Stress Lab Comment on above: Arrived Start: 08-16-2020 End: 08-18-2020 Subsequent hospital visit by physician [facility] Vascular Imaging Room [facility] Vascular Lab Comment on above: Other specified lisette pheral vascular diseases (HCC) Start: 08-16-2020 End: 08-16-2020 Subsequent hospital visit by physician [facility] Cardiology Stress Room [facility] Stress Lab Comment on above: Arrived Start: 07-18-2020 End: 07-18-2020 Emergency department patient visit Sebastian Carmichael Work Phone: [facility] ED Comment on above: Abdominal pain, epig astric (Primary Dx) Start: 09-12-2019 End: 09-12-2019 Emergency department patient visit Justice Shaver Work Phone: [facility] ED Comment on above: Trapezius muscle spa sm (Primary Dx) Start: 06-14-2019 End: 06-14-2019 Emergency department patient visit Pablonapoleon Portillo Work Phone: [facility] ED Comment on above: Chronic pain of both shoulders (Primary Dx); Neck pain, chronic; Nonspecific chest pain Start: 01-29-2018 End: 01-30-2018 Ambulatory DEFAULT PHYSICIAN Facility:[facility] Start: 01-20-2018 End: 01-21-2018 Ambulatory DEFAULT PHYSICIAN Facility:[facility] Start: 01-10-2018 End: 01-13-2018 Evaluation and management of inpatient SOREN Dewitt [facility] Procedures Date Procedure Procedure Detail Performing Clinician [...] 12-31-2022 Assay of troponin quantitative Cece Villalobos SUPERINTENDENT [employer]OWER - STUDIO OPERATION ENGINEER Work Phone: Start: 12-31-2022 BASIC METABOLIC PANEL W/ REFLEX TO MG FOR LOW K Cece Villalobos [employer]PERINTENDENT [employer] - STUDIO OPERATION ENGINEER Work Phone: Start: 12-31-2022 Lipid panel Cece Villalobos SUPERINTENDENT [employer]LECTRIC POWER - STUDIO OPERATION ENGINEER Work Phone: Start: 12-31-2022 End: 12-31-2022 Ecg routine ecg w/least 12 lds w/i&r Cece Villalobos [facility] Work Phone: Start: 12-30-2022 Echo tthrc r-t 2d w/wom-mode compl spec&colr d [facility] Work Phone: Start: 12-30-2022 RESPIRATORY PANEL, MOLECULAR, WITH COVID-19 [facility] Work Phone: Start: 12-30-2022 Rhythm ecg 1-3 [...] on above: Performed By: #### HGBHCT #### [facility] Laboratory [address] [place] [address] Dr. Raimundo Estrada Start: 06-26-2022 Colonoscopy Julian DIAZ Start: 06-26-2022 Esophagogastroduodenoscopy Julian DIAZ Start: 03-25-2022 Sedimentation rate rbc automated Carlosmpg napoleon Cowan MD Work Phone: Start: 03-09-2021 Assay [...] Ct abdomen & pelvis w/o contrast material Sebastian Crismaru Work Phone: Start: 07-18-2020 Ecg routine ecg w/least 12 lds w/i&r Sebastian Crismaru Work Phone: Start: 07-18-2020 EKG REPORT Hpf Scanning Start: 07-18-2020 Assay of lipase Sebastian Crismaru Work Phone: Start: 07-18-2020 Assay of troponin quantitative Sebastian C rismaru Work Phone: Start: 07-18-2020 Blood count complete auto&auto difrntl wbc Sebastian Crismaru Work Phone: Start: 07-18-2020 Comprehensive metabolic panel Sebastian Cr ismaru Work Phone: Start: 07-18-2020 Urinalysis microscopic only Sebastian Cathie farzana Work Phone: Start: 07-18-2020 Urnls dip stick/tablet rgnt auto w/o microscopy Sebastian Crismaru Work Phone: Start: 06-14-2019 Assay of troponin quantitative Pablo Rafael se Work Phone: Start: 06-14-2019 Radiologic exam chest single view Pablo Portillo Work Phone: Start: 06-14-2019 Assay of lipase Pablo Portillo Work Phone: Start: 06-14-2019 Assay of troponin quantitative Pablo Agustine se Work Phone: Start: 06-14-2019 Blood count complete auto&auto difrntl wbc Pablo Portillo Work Phone: Start: 06-14-2019 Fibrin dgradj products [...] SIGNS SHOWKAT AHMAD Start: 01-12-2018 DIAGNOSTIC CARDIAC OUTPATIENT CASE MANAGER PROCEDURE SHOWKAT AHMAD Start: 01-12-2018 APTT SHOWKAT [...] object) Julian DIAZ Extraction of cataract Robi gorman EMILY History of operative procedure on lumbar spinal structure Julian DIAZ Plan of Treatment Date Care Activity Detail Author Start: 07-01-2031 DTaP/Tdap/Td vaccine (3 - Td or Tdap) DTaP/Tdap/Td vaccine (3 - Td or Tdap) [facility] Start: 12-31-2025 Diabetes screen Diabetes screen [facility] Start: 2025 Pneumococcal 0-64 years Vaccine (3 - PPSV23 if available, else PCV20) Pneumococcal 0-64 years Vaccine (3 - PPSV23 if available, else PCV20) [facility] Start: 2025 Pneumococcal 0-64 years Vaccine (3 - PPSV23 or PCV20) Pneumococcal 0-64 years Vaccine (3 - PPSV23 or PCV20) [facility] Start: 01-01-2024 Lipid panel Lipids [facility] Start: 09-18-2023 End: 09-18-2023 Arthrodesis sacroiliac joint percutaneous ARTHRODESIS SACROILIAC JOINT MINIMALLY INVASIVE W/ TRANSFIXING DEVICE Sacroiliitis 09/18/2023 10:52 AM EST [facility] Start: 09-18-2023 End: 09-18-2023 Fluoroscopy up to 1 hour physician/qhp time FLUOROSCOPY IN OR Sacroiliitis 09/18/2023 10:52 AM EST [facility] Start: 08-14-2023 End: 08-14-2023 Patient encounter procedure 08/14/2023 2:45 PM EST Office Visit [facility] [address] [place] [address] Nikhil Mohr MD [address] [place] [address] [facility] Start: 08-14-2023 End: 08-14-2024 B12/folate level B12 & FOLATE Lab Routine Hereditary and idiopathic peripheral neuropathy Expected: 08/14/2023, Expires: 08/14/2024 [facility] Comment on above: Expected: 08/14/2023, Expires: Start: 08-14-2023 End: 08-14-2024 Hemoglobin A1c/Hemoglobin.total in Blood HEMOGLOBIN A1C Lab Routine Hereditary and idiopathic peripheral neuropathy Expected: 08/14/2023, Expires: 08/14/2024 [facility] Comment on above: Expected: 08/14/2023, Expires: 4 Start: 08-14-2023 End: 08-14-2024 MILENA AND PE, SERUM MILENA AND PE, SERUM Lab Routine Hereditary and idiopathic peripheral neuropathy Expected: 08/14/2023, Expires: 08/14/2024 [facility] Comment on above: Expected: 08/14/2023, Expires: 4 Start: 08-14-2023 End: 08-14-2024 MR Cervical spine WO contrast MRI SPINE CERVICAL WITHOUT CONTRAST Imaging Routine Hyperreflexia Expected: 08/14/2023, Expires: 08/14/2024 [facility] Comment on above: Expected: 08/14/2023, Expires: Start: 08-14-2023 End: 08-14-2024 MR Thoracic spine WO contrast MRI SPINE THORACIC WITHOUT CONTRAST Imaging Routine Hyperreflexia Expected: 08/14/2023, Expires: 08/14/2024 [facility] Comment on above: Expected: 08/14/2023, Expires: Start: 08-14-2023 End: 08-14-2024 VITAMIN B6 VITAMIN B6 Lab Routine Hereditary and idiopathic peripheral neuropathy Expected: 08/14/2023, Expires: 08/14/2024 [facility] Comment on above: Expected: 08/14/2023, Expires: Start: 07-04-2023 End: 07-04-2023 Patient encounter procedure 07/04/2023 9:00 AM EDT Office Visit [facility] [address] [place] [address] Jennie Hernandez MD [address] [place] [address] [facility] Start: 06-10-2023 End: 06-10-2023 Patient encounter procedure 06/10/2023 10:00 AM EDT Office Visit [facility] [address] [place] [address] [place] [address] Jennie Hernandez MD [address] [place] [address] [facility] Start: 06-06-2023 COVID-19 Vaccine ( season) COVID-19 Vaccine () [facility] Start: 06-06-2023 Influenza vaccination [facility] Start: 05-19-2023 End: 05-19-2023 Patient encounter procedure 05/19/2023 9:00 AM EDT Office Visit [facility] [address] [place] [address] Jennie Hernandez MD [address] [place] [address] [facility] Start: 05-06-2023 Influenza vaccination Flu vaccine (#1) [facility] Start: 04-18-2023 End: 04-18-2023 Patient encounter procedure 04/18/2023 12:40 PM EDT Office Visit [facility] [address] [place] [address] Jennie Hernandez MD [address] [place] [address] [facility] Start: 04-15-2023 End: 04-15-2023 Patient encounter procedure 04/15/2023 10:15 AM EDT Office Visit [place] [id number] [place] [address] Jw Cee MD [address] [place] [address] [facility] Start: 03-25-2023 Hemoglobin A1c measurement A1C test (Diabetic or Prediabetic) [facility] Start: 02-25-2023 End: 02-26-2024 Electromyography EMG & NERVE CONDUCTION Neurology Routine Lower extremity numbness Expected: 02/25/2023, Expires: 02/26/2024 [facility] Comment on above: Expected: 02/25/2023, Expires: Start: 01-11-2023 Lipid screen Lipid screen [place], [place] Start: 04-11-2022 End: 04-11-2022 Patient encounter procedure 04/11/2022 Office Visit Neurology Con Cowan MD [address] [place] [address] [place] [address] [facility] Start: 06-06-2021 Influenza vaccination Flu vaccine (Season Ended) [facility] Work Phone: Start: 01-10-2021 Diabetes screen Diabetes screen [facility] Start: 2020 Respiratory Syncytial Virus (RSV) or age 60 yrs+ (1 - 1-dose 60+ series) Respiratory Syncytial Virus (RSV) or age 60 yrs+ (1 - 1-dose 60+ series) [facility] Start: 08-17-2020 End: 08-17-2020 Appointment 08/17/2020 Appointment Stress Lab [facility] Stress Lab Start: 06-06-2020 Influenza vaccination Flu vaccine (#1) [place] Start: 06-06-2019 Influenza vaccination Flu vaccine (#1) [place] Start: 01-11-2019 Lipid panel [facility] Start: 01-11-2019 Lipid screen Lipid screen [place] Start: 08-13-2018 Prostate specific antigen measurement Prostate Specific Antigen (PSA) Screening or Monitoring [facility] Start: 2010 Colon cancer screen colonoscopy Colon cancer screen colonoscopy [place] Start: 2010 Prostate specific antigen measurement PROSTATE CANCER SCREENING DISCUSSION [facility] Start: 2010 Screening for malignant neoplasm of colon Colon cancer screen colonoscopy [place] Start: 2010 Shingles Vaccine (1 of 2) Shingles Vaccine (1 of 2) [place] Start: 2010 Zoster vaccine hzv live for subcutaneous use ZOSTER (SHINGLES) VACCINE (1 of 2) [facility] Start: 2005 Screening for malignant neoplasm of colon [facility] Start: 2000 Lipid panel LIPID SCREENING [facility] Start: 1979 DTaP/Tdap/Td vaccine (1 - Tdap) DTaP/Tdap/Td vaccine (1 - Tdap) [place] Start: 1979 Third diphtheria, tetanus and acellular pertussis (DTaP) vaccination TDAP (ADULT) [facility] Start: 1978 Hepatitis C screening Hepatitis C screen [facility] Start: 1975 HIV screen HIV screen [place] Start: 1975 HIV screening [facility] Start: 1972 COVID-19 Vaccine (1) COVID-19 Vaccine (1) [facility] Phone: Start: 1972 Depression Screen Depression Screen [facility] Start: 1971 DTaP/Tdap/Td vaccine (1 - Tdap) DTaP/Tdap/Td vaccine (1 - Tdap) [place] Start: 1966 Pneumococcal 0-64 years Vaccine (1 of 1 - PPSV23) Pneumococcal 0-64 years Vaccine (1 of 1 - PPSV23) [place] Start: 1966 Pneumococcal 0-64 years Vaccine (1 of 2 - PPSV23) Pneumococcal 0-64 years Vaccine (1 of 2 - PPSV23) [facility] Phone: Start: 04-09-1961 COVID-19 VACCINE (#1) COVID-19 VACCINE (#1) [facility] Start: 1960 Hepatitis C screen Hepatitis C screen [place], [place] Start: 1960 Hepatitis C screening [facility] Start: 1960 Tetanus vaccination TETANUS [facility] End: 01-02-2023 Basic Metabolic Panel w/ Reflex to MG Basic Metabolic Panel w/ Reflex to MG Lab Routine Daily for 3 Days starting 12/31/2022 until 01/02/2023, 1 completed [employer] Work Phone: Comment on above: Daily for 3 Days starting 12/31/2022 unt il 01/02/2023, 1 completed End: 01-02-2023 CBC W Auto Differential panel - Blood CBC with Auto Differential Lab Routine Daily for 3 Days starting 12/31/2022 until 01/02/2023, 1 completed [employer] Work Phone: Comment on above: Daily for 3 Days starting 12/31/2022 unt il 01/02/2023, 1 completed EKG 12 Lead EKG 12 Lead ECG STAT 06/14/2019 10:26 AM EDT [employer] [place] EKG 12 lead EKG 12 lead ECG Routine As Needed until discontinued starting 12/30/2022 [employer] Phone: Comment on above: As Needed until discontinued starting End: 03-25-2022 Hemoglobin A1c/Hemoglobin.total in Blood [employer] Work Phone: Comment on above: 1 Occurrences starting 03/25/2022 until 03/25/2022 End: 12-31-2022 Hemoglobin A1c/Hemoglobin.total in Blood Hemoglobin A1C Lab Routine Tomorrow AM for 1 Occurrences starting 12/31/2022 until 12/31/2022 [employer] Phone: Comment on above: Tomorrow AM for 1 Occurrences starting 0 12/31/2022 until 12/31/2022 Hemoglobin A1c/Hemoglobin.total in Blood Hemoglobin A1C Lab Routine 12/31/2022 6:30 AM EDT [employer] Work Phone: Initiate ED RT Bronc hospasm Protocol Initiate ED RT Bronchospasm Protocol Respiratory Care Routine Daily until discontinued starting 2023 [employer] Comment on above: Daily until discontinued starting 2023 End: 12-30-2022 Intermittent pulse oximetry Pulse Oximetry Spot Check Respiratory Care Routine One Time for 1 Occurrences starting 12/30/2022 until 12/30/2022 [employer] Phone: Comment on above: One Time for 1 Occurrences starting 12/05 until 12/30/2022 End: 03-25-2022 Nuclear Ab [Titer] in Serum by Immunofluorescence [employer] Phone: Comment on above: 1 Occurrences starting 03/25/2022 until 03/25/2022 Oxygen therapy [[facility] Data Set] Initiate Oxygen Therapy Protocol Respiratory Care Routine As Needed until discontinued starting 12/30/2022 [employer] Phone: Comment on above: As Needed until discontinued starting End: 2023 Portable XR Chest AP single view [employer] Comment on above: Once for 1 Occurrences starting 10/10/19 until 2023 End: 09-18-2023 RF Unspecified body region Views during surgery TIP Imaging [facility] Comment on above: One Time for 1 Occurrences starting 09/05 until 09/18/2023 Stress test, lexiscan Stress kendra t, lexiscan Cardiac Services Routine 12/31/2022 3:03 PM EDT [employer] Phone: Vibratory Airway Clearance Vibra tory Airway Clearance Respiratory Care Routine Every 1hr while awake until discontinued starting 12/30/2022 [employer] Phone: Comment on above: Every 1hr while awake until discontinued starting 12/30/2022 End: 03-25-2022 Vitamin B12 & Folate [employer] Phone: Comment on above: 1 Occurrences starting 03/25/2022 until 03/25/2022 XR CHEST PORTABLE XR CHEST HEDY BLE Imaging STAT 06/14/2019 10:43 AM EDT [employer]- CARLOS TURNER Payers Date Payer Category Payer Unknown 2023 Unknown [id number] 2022 Unknown [id number] 2021 Unknown [id number] 2021 Unknown [id number] 2019 Private Health Insurance [facility] [id number] 2019-Present [phone] [address] [place] [address] [id number] .[id number] 2019 Private Health Insurance [employer] xxxxxxxxxx 2019-Present [phone] [address] [place] [address] xxxxxxxxxx [id number] .7.3.426932.315 2016 Unknown [id number] 2014 Unknown [id number] 1.2.840.895667.1.13.239.2 .7.3.015761.315 1960 Unknown [id number] 2.16.840.1.507139.3.579.2 .727 1960 Unknown [id number] 2.16.840.1.211150.3.579.2 .727 1960 Unknown [id number] 2.16.840.1.370478.3.579.2 .727 1960 Unknown [id number] 2.16.840.1.045144.3.579.2 .727 1960 Unknown [id number] 2.16.840.1.088861.3.579.2 .593 1960 Unknown [id number] 2.16.840.1.082571.3.579.2 .593 1960 Unknown [id number] 2.16.840.1.350053.3.579.2 .593 1960 Unknown [id number] 2.16.840.1.443295.3.579.2 .593 1960 Unknown [id number] 2.16.840.1.400080.3.579.2 .593 1960 Unknown [id number] 2.16.840.1.716311.3.579.2 .593 1960 Unknown [id number] 2.16.840.1.498431.3.579.2 .593 1960 Unknown [id number] 2.16.840.1.817855.3.579.2 .593 1960 Unknown [id number] 2.16.840.1.494124.3.579.2 .593 1960 Unknown [id number] 2.16.840.1.068417.3.579.2 .593 1960 Unknown [id number] 2.16.840.1.508846.3.579.2 .593 1960 Unknown [id number] 2.16.840.1.598067.3.579.2 .593 1960 Unknown [id number] 2.16.840.1.403552.3.579.2 .593 1960 Unknown [id number] 2.16.840.1.939973.3.579.2 .593 1960 Unknown [id number] 2.16.840.1.418384.3.579.2 .593 1960 Unknown [id number] 2.16.840.1.508040.3.579.2 .593 1960 Unknown [id number] 2.16.840.1.255880.3.579.2 .593 1960 Unknown [id number] 2.16.840.1.456144.3.579.2 .593 1960 Unknown [id number] 2.16.840.1.853817.3.579.2 .593 1960 Unknown [id number] 2.16.840.1.968044.3.579.2 .593 1960 Unknown [id number] 2.16.840.1.005768.3.579.2 .983 1960 Unknown [id number] 2.16.840.1.787280.3.579.2 .983 1960 Unknown [id number] 2.16.840.1.816917.3.579.2 .983 1960 Unknown [id number] 2.16.840.1.890134.3.579.2 .983 1960 Unknown [id number] 2.16.840.1.127710.3.579.2 .983 1960 Unknown [id number] 2.16.840.1.499788.3.579.2 .983 1960 Unknown [id number] 2.16.840.1.609567.3.579.2 .983 1960 Unknown [id number] 2.16.840.1.904055.3.579.2 .983 1960 Unknown [id number] 2.16.840.1.033001.3.579.2 .983 1960 Unknown [id number] 2.16.840.1.158617.3.579.2 .983 1960 Unknown [id number] 2.16.840.1.645922.3.579.2 .983 1960 Unknown [id number] 2.16.840.1.365155.3.579.2 .983 1960 Unknown [id number] 2.16.840.1.910858.3.579.2 .983 1960 Unknown [id number] 2.16.840.1.477249.3.579.2 .983 1960 Unknown [id number] 2.16.840.1.428664.3.579.2 .173 1960 Unknown [id number] 2.16.840.1.897916.3.579.2 .173 1960 Unknown [id number] 2.16.840.1.398497.3.579.2 .1259 1959 Unknown [id number] 1.2.840.544130.1.13.239.2 .7.3.864875.315 1959 Unknown [id number] Social History Date Type Detail Facility Start: 06-14-2019 End: 12-30-2022 Tobacco smoking status NHIS [facility] [employer] Start: 06-14-2019 End: 12-30-2022 Alcohol intake Yes [place] Start: 06-14-2019 Alcohol Comment not every day [place] Start: 1960 Sex Assigned At Not on file [place] Start: 09-12-2019 End: 12-30-2022 Alcohol intake Current drinker of alcohol (finding) [place] Start: 07-18-2020 End: 12-30-2022 Tobacco use and exposure Never used [place] Start: 03-15-2022 End: 12-30-2022 Exposure to SARS-CoV-2 (event) Not sure [place] Start: 03-09-2021 End: 12-30-2022 [facility] Tobacco smoking status Never [facility] [place] Start: 12-30-2022 History SDOH Alcohol Frequency 5 [facility] [employer] Work Phone: Start: 12-30-2022 History SDOH Alcohol Std Drinks 2 [facility] [employer] Work Phone: Start: 09-09-2023 Alcohol Comment 3-4 BEERS DAILY [facility] How often to you hav e a drink containing alcohol? 4 or more times a week [facility] [employer] How many standard dr inks containing alcohol do you have on a typical day? 3 or 4 [employer] [facility] How often do you hav e 6 or more drinks on 1 occasion? Daily or almost daily [facility] [employer] Medical Equipment Procedure Code Equipment Code Equipment Origin al Text Equipment Identifier Dates Alok Carlson on System [id number] Start: 09-18-2023 Goals Date [...] prepare for safety after surgery. (Met today) Halfway Goals: Independent core exercises for half-way use to prevent reoccurrence. Return to normal [...] care or concern. documented in this encounter [facility] 09-18-2023 Note #Cardiac risk strati [...] Normal diastolic function No significant valvular abnormalities [facility] 09-18-2023 Nurse Note Pt provided with discharge instructions. Pt Iv removed and belongings gathered. Pt was wheeled to car by surgery staff and driven home by family. [facility] 09-18-2023 Miscellaneous Notes Pt provided with discharge [...] this time POST OPERATIVE/PROCEDURE NOTE Noel Alva ([id number]) SURGEON Surgeon(s) and Role: * Shaheen Chappell MD - Primary COLORIST DYER Marques ANESTHESIOLOGIST THERAPEUTIC RECREATION LEADER: Avinash Adams APRN-THERAPEUTIC RECREATION LEADER Student Nurse Photo Journalist: Amanda [place] SURGICAL STAFF Capacity Manager: Caryn Tineo RN Registered Nurse Stand Grinder: Angeline Mohan RN Scrub Person: Luiza Calderon [...] 12:13 PM documented in this encounter [facility] 09-18-2023 Nurse Note OT in with pt at this time [facility] 09-18-2023 History of Present illness Narrative [...] and can help during recovery) Primary Language Scottish PRIOR LEVEL AM-PAC Activity Inpatient Short Form Putting on/Taking Off Lower Body Clothing 4 - No Assistance Bathing 4 - No Assistance Toileting 4 - No Assistance Putting on/Taking Off Upper Body Clothing 4 - No Assistance Grooming 4 - No Assistance Eating 4 - No Assistance PRIOR LEVEL AM-PAC Activity Raw Score 24 PRIOR LEVEL AM-[facility] Activity Functional Limitation/Modifier 0.00% Prior Functional Impairment [...] LUE Assessment WFL Supine to Sit Mobility [place] Level: Supine->Sit contact guard assist Bed Features/Set-up: Supine->Sit Flat Skilled Rationale Verbal cues Skilled Intervention/Details: Supine->Sit pt reorted that he knew how to log roll but twisted to get up even with vcs and attempts to physically assist with proper technique Sit to Stand Transfer [place] Level: Sit->Stand contact guard assist Assistive Device: Sit->Stand 2 wheeled walker Skilled Rationale Hand placement;Verbal cues Skilled Intervention/Details: Sit->Stand pt pulling up on the walker with both hands- cues to push off Stand to Sit Transfer [place] Level: Stand->Sit stand-by assist Assistive Device: Stand->Sit [...] assist with R sock Acute [facility] Acute [facility] Assessments Daily Activity Inpatient Short Form CURRENT [facility] Daily Activity Inpatient Short Form Putting on/Taking [...] Low (problem-focused assessments w/limited treatment options) 09/18/23 1353 Surgery Information RN Approved Intervention as tolerated [...] bed mobility & transfers with supervision to [place]. He was provided education review with log [...] Completed? yes Therapist Information License # [id number] General Information Pertinent History of Current Problem The patient is a 62 year old male with sacroiliitis who underwent Right SI fixation. He was referred to physical therapy for post procedure education review & mobility. Jc Farmer, PT documented in this encounter [facility] 09-18-2023 Nurse Note Pt ambulating in [place] with PT without difficulty. [facility] 09-18-2023 Nurse Note PT in with pt at this time [facility] 09-18-2023 Nurse Note Discharge instructions provided, pt states understanding, including the sedentary activity as described, denies questions. [facility] 09-18-2023 Hospital Discharge instructions Venecia Rivera RN - 09/18/2023 1:[address] Chappell [facility] Post-Operative Spine Surgery Home Going Instructions [...] take percocet prescribed by . Proceed with Loman as prescribed by Dr. Chappell-when Loman is completed, you may resume percocet from [...] this carefully. Please attend family, community and confucianism events as soon as possible after your [...] be faxed. documented in this encounter [facility] 09-18-[address] Chappell in to see pt at this time [facility] 09-18-2023 Surgery Postoperative evaluation and management note POST OPERATIVE/PROCEDURE NOTE Noel Alva ([id number]) SURGEON Surgeon(s) and Role: * Shaheen Chappell MD - Primary COLORIST DYER Marques ANESTHESIOLOGIST THERAPEUTIC RECREATION LEADER: Avinash Adams APRN-THERAPEUTIC RECREATION LEADER Student Nurse Photo Journalist: Amanda Murphy SURGICAL STAFF Capacity Manager: Caryn Tineo RN Registered Nurse Stand Grinder: Angeline Mohan RN Scrub Person: Luiza Calderon [...] Chappell MD September 18, 2023 12:13 PM [facility] 08-14-2023 History of Present illness Narrative [facility] NEUROLOGY CLINIC NOTE Chief Complaint Patient [...] does not smoke. He is managed by [facility] in [place]. He is receiving Percocet and Lyrica. Lyrica [...] lids. There is no papilledema on fundoscopy. 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 No overshoot on finger justin. Sensation: Intact to light touch. Gait: Normal [...] being managed by his pain doctors in [place]. Noel was seen today for new patient. Diagnoses and all orders for this visit: Hereditary and idiopathic peripheral neuropathy - HEMOGLOBIN A1C; Future - B12 & FOLATE; Future - VITAMIN B6; Future - MILENA AND PE, SERUM; Future Hyperreflexia - MRI SPINE CERVICAL WITHOUT CONTRAST; Future - MRI SPINE THORACIC WITHOUT CONTRAST; Future Nikhil Mohr MD 08/14/2023 documented in this encounter [facility] 08-13-2023 Note Patient here for 1 [...] his right hip with Dr. Chappell in [place]. Had labs in December 2022. Review of Systems Cardiovascular: Positive for chest pain, claudication and dyspnea on exertion. Musculoskeletal: Positive for arthritis, back pain, joint pain and myalgias. Neurological: Positive for numbness. All other systems reviewed and are negative. [facility] 08-13-2023 Note Cardiovascular Medic [facility] SUBJECTIVE Chief Complaint Patient presents with [...] his right hip with Dr. Chappell in [place]. Had labs in December 2022. history of CAD s/p stenting of the LAD in 2004, echocardiogram in 2010 was within normal limits. He underwent cath at [facility] 01/12/2018 due to chest pain that showed [...] ASHD (arteriosclerotic heart disease) Dyslipidemia Intermittent claudication (CMS/HCC) Mild intermittent asthma without complication Paresthesia of upper limb Peripheral vascular disease (CMS/HCC) Primary hypertension S/P angioplasty with stent S/P cardiac cath Unstable angina (CMS/HCC) Viral syndrome Past Medical History: Diagnosis Date Coronary artery disease Hypertension PVD (peripheral vascular disease) (CMS/HCC) Family History Problem Relation Name Age of [...] Mood and Affect (more content not included)... [facility] 07-16-2023 History of Present illness Narrative [...] therapy, medications, SI belt, therapeutic injections. Inadequate half-way relief from therapeutic injection. 100% relief while [...] therapy, medications, SI belt, therapeutic injections. Inadequate intermediate manager relief from therapeutic injection. 100% relief while [...] findings. Additions if any: Jennie Hernandez MD, [facility] Chemical Test Engineer - [facility] documented in this encounter [facility] 07-16-2023 Instructions Eric Luu - 07/16/2023 [...] with corticosteroids. documented in this encounter [facility] 07-04-2023 History of Present illness Narrative [...] Topical creams Physical therapy? Done recently at [facility] Xrays? Lumbar spine 12/2022 done at [place], bilateral hips and pelvis 01/08/23 MRI? 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 [...] US Guided right SI joint injection with ART COORDINATOR Severity of problem(s): Moderate Risk of morbidity [...] Topical creams Physical therapy? Done recently at [facility] Xrays? Lumbar spine 12/2022 done at [place], bilateral hips and pelvis 01/08/23 MRI? 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 [...] US Guided right SI joint injection with ART COORDINATOR Severity of problem(s): Moderate Risk of morbidity or complication from the condition and/or additional testing or treatment: Low I have reviewed, edited and added to the above note and agree with those findings. Additions if any: Jennie Hernandez MD, [facility] Chemical Test Engineer - [facility] documented in this encounter [facility] 06-10-2023 History of Present illness Narrative [...] findings. Additions if any: Jennie Hernandez MD, [facility] Chemical Test Engineer - [facility] documented in this encounter [facility] [employer] [facility] 05-19-2023 History of Present illness Narrative Referred [...] Topical creams Physical therapy? Done recently at [facility] Xrays? Lumbar spine 12/2022 done at [place], bilateral hips and pelvis 01/08/23 MRI? 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 [...] Topical creams Physical therapy? Done recently at [facility] Xrays? Lumbar spine 12/2022 done at [place], bilateral hips and pelvis 01/08/23 MRI? 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 [...] findings. Additions if any: Jennie Hernandez MD, [facility] Chemical Test Engineer - [facility] documented in this encounter [facility] 04-18-2023 History of Present illness Narrative [...] findings. Additions if any: Jennie Hernandez MD, [facility] Chemical Test Engineer - [facility] documented in this encounter [facility] 04-18-2023 Instructions Eric Luu - 04/18/2023 [...] with corticosteroids. 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 Noel may call the office with any questions or concerns. 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 Noel may call the office with any questions or concerns. Referrals:None Medications prescribed today: None Follow up plan: Sports US guided left sacroiliac joint injection with ART COORDINATOR Complexity of problem(s): Mild Risk of morbidity [...] findings. Additions if any: Jennie Hernandez MD, [facility] Chemical Test Engineer - [facility] documented in this encounter [facility] 12-31-2022 History of Present illness Narrative Stage Hand reviewed discharge instructions with patient. No new [...] home following this hospitalization. Patient resides in [place] alone. He uses no DME and has no outside resources or services currently in place. 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 He is independent with all activities of [...] Priscilla, as his decision maker if needed. COMPLIANCE REVIEWER to monitor and assist with any further [...] 113* 103* Comprehensive Metabolic Profile: Recent Labs 12/30/2220 12/31/22 0630 NA 139 140 K 3.9 [...] Well developed, well nourished with no malnutrition Utilization Manager consult initiated Hospital Prophylaxis: DVT: Lovenox Stress Ulcer: H2 Sarah Disposition: Shared decision making: All test results, treatment options and disposition options were discussed with the patient today Social determinants of health that may impact management: none Code status: Full Code Disposition: Discharge plan is home MIPS Advanced Care Planning documentation: [x] I have [...] the patient's medical record. [DOES NOT SATISFY MIPS PERFORMANCE] Cece Villalobos APRN - AUTUMN ELI NP-C Hospitalist Medicine 12/31/2022, 9:21 AM Associated attestation - Kendell Camacho MD - 12/31/2022 5:52 PM EDT Images from the original note were not included. [address] , [place], [place], [address] Attestation Patient: Noel Alva Date of Admission: 12/30/2022 6:09 AM Hospital Day # 1 Date of Evaluation: 12/31/2022 I personally evaluated and examined the patient [id number] in conjunction with the PA/SCRAPER MEAT and agree with the management and dispostition of the patient. Please see the PA/SCRAPER MEAT's note for full details. My argueta findings [...] Blood Count: Recent Labs 12/30/22 0620 12/31/22 06 WBC 10.1 6.8 RBC 4.34 4.33 HGB [...] with the plan as outlined in the SCRAPER MEAT/PA's note Disposition: Discharge plan is pending Please note that this chart was generated using voice recognition [employer] dictation software. Although every effort was made to ensure the accuracy of this automated clinical transplant coordinator, some errors in clinical transplant coordinator may have occurred. Kendell Camacho MD 12/31/2022 5:52 PM Stage Hand to bedside to complete morning assessment. Upon entry to room, pt sitting up in bed, respirations even and unlabored while on room air. Vitals obtained and assessment completed, see flow sheet for details. Dr Camacho at bedside, reviewed pts blood pressure medications with him, okay to hold Norvasc and Metoprolol this morning. Pt denies needs from magnetic tape typewriter operator at this time. Call light in reach. Care ongoing. Noted magnetic tape typewriter operator had not urinated yet this shift. When [...] bedside table are within reach, will monitor. Stage Hand offered meds to bed but patient declined. Echocardiogram/Doppler done at bedside. Instructed on policies and procedure. Spoke to Cece ELI, cristian for magnetic tape typewriter operator to correct home medications. Okay to add: protonix, iron, Mobic, Lisinopril, and Amlodipine. Cardiology consult called to office. When reviewing home medications it was noted that there were some differences in doses of medications. Called [facility] and clarified medications. Will update [...] reach. Care ongoing. documented in this encounter [facility] [employer] Phone: 12-31-2022 Hospital Discharge instructions Ana Gutierres [...] at most local grocery stores, pharmacies, and chain super-stores. If you have any questions about your diet or nutrition, call the hospital and ask for the dietitian. Cardiac: low sodium, low cholesterol, low fat documented in this encounter [facility] [employer] Phone: 12-31-2022 Hospital course Narrative Discharge Summary [...] sharp in the left chest. No radiation. Hardin burning sensation when the chest pain subsided. [...] discharge home he will follow-up with his professor of economics in [place]. Consultants: Dr. Mohr, cardiology Procedures: Stress Test [...] Your Medications These medications were sent to [facility] [place], [place] - [address] [facility] [facility] [address] [address] - P [phone] - F [phone] [address] [facility] [facility] [address], [facility] [id number] atorvastatin 20 MG tablet Patient Instructions: Activity: activity as tolerated Diet: cardiac diet Wound Care: none needed Other: None Disposition: Discharge to Home Follow up: Patient will be followed by Romario Man MD in 1-2 weeks CORE MEASURES on Discharge (if applicable) BRITTNY/ARB in CHF: NA Statin in [place]: NA ASA in [place]: NA Statin in CVA: NA Antiplatelet in CVA: NA Total time spent on discharge services: 40 minutes Including the following activities: Evaluation and Management of patient Discussion with patient and/or surrogate about current care plan Coordination with Case Management and/or Intelligence Applications Coordination of care with Consultants (if applicable) Coordination of care with Receiving Facility Physician (if applicable) Completion of DME forms (if applicable) Preparation of Discharge Summary Preparation of Medication Reconciliation Preparation of Discharge Prescriptions Signed: Cece Villalobos APRN - SREEDHAR, AUTUMN, SCRAPER MEAT-C 12/31/2022, 5:06 PM Associated attestation - Kendell Camacho MD - 12/31/2022 5:53 PM EDT Images from the original note were not included. [address] [place], [place], [address] Attestation Patient: Noel Alva Date of Admission: 12/30/2022 6:09 AM Hospital Day # 1 Date of Evaluation: 12/31/2022 I personally evaluated and examined the patient [id number] in conjunction with the PA/SCRAPER MEAT and agree with the management and dispostition of the patient. Please see the PA/SCRAPER MEAT's note for full details. My argueta findings [...] care plan Coordination with Case Management and/or Intelligence Applications Coordination of care with Consultants (if applicable) [...] this chart was generated using voice recognition [employer] dictation software. Although every effort was made to ensure the accuracy of this automated clinical transplant coordinator, some errors in clinical transplant coordinator may have occurred. Kendell Camacho MD 12/31/2022 5:53 PM documented in this encounter [facility] [employer] Work Phone: 11-14-2022 Note CONSULTATION CONSULTATION DATE: [...] falls or foot drop. 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 He did have to take two days off of work last week, which his very unlike him. He had trouble getting out of bed due to increased pain. He is prescribed Loman 5/325 t.i.d., but due to pain, patient [...] radiculopathy, lumbar spondylosis. PLAN: Patient brought his Loman in today for a pill count. We will change his medication to Percocet 5/325 t.i.d. and increase his Lyrica to 100 mg b.i.d. I did recommend a Neurosurgery referral, which the patient does agree to. We will send a referral to Dr. Shaheen Chappell at [facility] in [place]. We will continue to manage his medications at this time, and we will see him in the clinic in three months. Patient agrees with this plan. [facility] 10-16-2022 Note CONSULTATION CONSULTATION DATE: 10/16/2022 HISTORY [...] use a cane. His current medications include Loman 5/325 b.i.d. and Aleve p.r.n. He has [...] next three days, we will increase his Loman 5/325 to t.i.d. We will start also [...] Patient does agree with this plan. [facility] 08-22-2022 Note CONSULTATION CONSULTATION DATE: 08/22/2022 HISTORY [...] weakness. Medications include Mobic 15 mg daily, Loman 5/325 b.i.d. and tizanidine 4 mg q.h.s. [...] a menthol rub. We will maintain his Loman 5/325 b.i.d. and he was instructed to use Voltaren to hi right CMC joint. Patient agrees with the plan of care and will be followed up in the office thereafter. [facility] 06-26-2022 Note OPERATIVE NOTE OPERATION DATE: 06/26/2022 [...] good condition. CC: Romario Man M.D. [facility] 06-01-2022 Note Chief Complaint consultation for iron [...] BID, # 90 tab(s), Refills(s) 3, Pharmacy: [id number], 167.6, cm, 05/31/22 14:31:00 EDT, Height/Length Dosing, 72.8, kg, 05/31/22 14:31:00 EDT, Weight Dosing 3. Hematemesis (K92.0: Hematemesis) see # 1 Ordered: pantoprazole, 40 mg = 1 tab(s), Oral, BID, # 90 tab(s), Refills(s) 3, Pharmacy: [id number], 167.6, cm, 05/31/22 14:31:00 EDT, Height/Length Dosing, 72.8, kg, 05/31/22 14:31:00 EDT, Weight Dosing Follow-up No qualifying data available Problem List/Past Medical History Ongoing Asthma BMI 25.0-25.9,adult CAD in [place] artery DDD (degenerative disc disease), lumbar Depression [...] 325 mg or (more content not included)... [facility] Comment on above: Result Comment: Elec tronically Signed By: EMILY DRUMMOND, Julian Rothman\Date and Time Signed: 06/01/22 10:42 EDT 05-30-2022 [...] procedure well with no overt complications. [facility] 05-30-2022 Note CONSULTATION CONSULTATION DATE: 05/30/2022 HISTORY [...] Medications include Mobic 15 mg daily and Loman 5/325 b.i.d. He does take tizanidine 4 [...] indicated. Patient agrees with this plan. [facility] 04-03-2022 Note CONSULTATION CONSULTATION DATE: 04/03/2022 HISTORY [...] and his workup at the ER in [place] warranted no findings. Today, he reports consistent [...] mg q.h.s., Mobic 15 mg daily and Loman 5/325 b.i.d. p.r.n. Activities such as standing, [...] clinic and heading straight to the lab. [facility] Signed and Approved by: JULIANE MSASEY . 04/04/2022 13:38:00 [facility] 02-21-2022 Note CONSULTATION CONSULTATION DATE: 02/21/2022 This [...] Medications include Mobic 15 mg q. day, Loman 5/325 b.i.d. and tizanidine 4 mg q.h.s., [...] cervical neuritis. PLAN: We will refill his Loman today 5/325 b.i.d., p.r.n. We will move [...] followed up in the office post procedure. [facility] Signed and Approved by: JULIANE MASSEY . 02/25/2022 15:08:00 [facility] Evaluation + Plan note No data available for this section General Surgery [place] Evaluation note Diagnosis Acute gout of right wrist, unspecified cause- Primary documented in this encounter [employer] Phone: evalripxea note* Diagnosis Chronic fatigue Other malaise and fatigue documented in this encounter [employer] Phone: evaluation note* Diagnosis Atypical chest pain- Primary Other chest pain Chest pain, unspecified type Viral syndrome Unspecified viral infection, in conditions classified elsewhere and of unspecified site documented in this encounter [employer] Phone: evaluation note* Diagnosis Osteoarthritis of left sacroiliac joint- Primary Lumbar spondylosis Lumbosacral spondylosis without myelopathy Lower extremity numbness Disturbance of skin sensation documented in this encounter [employer] [facility]* Diagnosis Osteoarthritis of left sacroiliac joint documented in this encounter [facility]* Diagnosis Osteoarthritis of left sacroiliac joint- Primary Osteoarthritis of left sacroiliac joint documented in this encounter [employer] [facility]* Diagnosis Osteoarthritis of left sacroiliac joint- Primary Pain of left sacroiliac joint Disorders of sacrum Lumbar spondylosis Lumbosacral spondylosis without myelopathy [facility] Osteoarthritis of right sacroiliac joint- Primary Pain of right sacroiliac joint Disorders of sacrum Polyneuropathy Unspecified hereditary and idiopathic peripheral neuropathy Lower extremity numbness Disturbance of skin sensation Osteoarthritis of left sacroiliac joint Pain of left sacroiliac joint Disorders of sacrum Lumbar spondylosis Lumbosacral spondylosis without myelopathy documented in this encounter [facility]* Diagnosis Osteoarthritis of both sacroiliac joints- Primary Pain of both sacroiliac joints Disorders of sacrum Polyneuropathy Unspecified hereditary and idiopathic peripheral neuropathy [facility] Diagnosis Osteoarthritis of both sacroiliac joints Pain of both sacroiliac joints Disorders of sacrum [facility] Diagnosis Osteoarthritis of both sacroiliac joints- Primary Pain of both sacroiliac joints Disorders of sacrum Osteoarthritis of both sacroiliac joints Pain of both sacroiliac joints Disorders of sacrum documented in this encounter [facility]* Diagnosis Hereditary and idiopathic peripheral neuropathy- Primary Unspecified hereditary and idiopathic peripheral neuropathy Hyperreflexia Abnormal reflex [facility] Diagnosis Sacroiliitis- Primary Sacroiliitis, not elsewhere classified [facility] Diagnosis Viral illness- Primary Unspecified viral infection, in conditions classified elsewhere and of unspecified site [facility]* Attachments The following attachments cannot be sent through Care Everywhere. * Gout (Scottish) [facility] Discharge instructions No data available for this section General Surgery [facility] Progress note No data available for this section General Surgery [place] Reason for referral (narrative)* Consultation (Routine) - Auth Not Needed Specialty Diagnoses / Procedures Referred By Anni antonio Referred To Contact Neurology Diagnoses Polyneuropathy Jennie Hernandez MD [address] [place] [id number] Nikhil Mohr MD [address] [place] [address] Referral ID Status Reason Start Date Expiration Date V isits Requested Visits Authorized [id number] Auth Not Needed 06/10/2023 07/04/2024 1 1 * Radiology (Routine) - New Request Specialty Diagnoses / Procedures Referred By Contac t Referred To Contact Diagnoses Osteoarthritis of left sacroiliac joint Pain of left sacroiliac joint Procedures US IMAGING FOR Jennie Cui MD [address] [place] [address] Referral ID Status Reason Start Date Expiration Date V isits Requested Visits Authorized [id number] New Request 06/10/2023 07/04/2024 1 1 [facility] for referral (narrative)* Consultation (Routine) - Schedule Outgoing - Transfer of Care Specialty Diagnoses / Procedures Referred By Contac t Referred To Contact Neurologic Surgery Diagnoses Osteoarthritis of both sacroiliac joints Pain of both sacroiliac joints Jennie Hernandez MD [address] [place] [address] Referral ID Status Reason Start Date Expiration Date V isits Requested Visits Authorized [id number] Schedule Outgoing - Transfer of Care 07/16/2023 08/09/2024 1 1 * Radiology (Routine) - New Request Specialty Diagnoses / Procedures Referred By Contac t Referred To Contact Diagnoses Osteoarthritis of both sacroiliac joints Pain of both sacroiliac joints Procedures US IMAGING FOR Jennie Cui MD [address] [place] [address] Referral ID Status Reason Start Date Expiration Date V isits Requested Visits Authorized [id number] New Request 07/16/2023 08/09/2024 1 [facility]) Specialty Diagnoses / Procedures Referred By Anni antonio Referred To Contact [place] [address] Referral ID Status Reason Start Date Expiration Date Visits Re quested Visits Authorized [facility] Summary Purpose Family History No Family History Records FoundNo Family History Records FoundNo Family History Records FoundNo Family History Records FoundNo Family History Records FoundNo Family History Records FoundNo Family History Records FoundNo Family History Records FoundNo Family History Records FoundNo Family History Records Found Advance Directives No Advanced Directives Records FoundDocuments on File Type Date Recorded Patient Cvir Tech Expl anation Advance Directives and Living Will Power of Screw Machine Set Up Operator Tool Latest Code Status on File Code Status Date Activated Date Inactivated Comments Full Code 01/12/2018 8:34 PM 01/13/2018 3:53 PM Full Code 01/10/2018 3:36 PM 01/12/2018 8:34 PM Documents on File Type Date Recorded Patient Cvir Tech Expl anation ACP-Advance Directive ACP-Power of Screw Machine Set Up Operator Tool Documents on File Type Date Recorded Patient Cvir Tech Expl anation ACP-Advance Directive ACP-Power of Screw Machine Set Up Operator Tool Latest Code Status on File Code Status Date Activated Date Inactivated Comments Full Code 01/12/2018 8:34 PM 01/13/2018 3:53 PM Full Code 01/10/2018 3:36 PM 01/12/2018 8:34 PM Latest Code Status on File Code Status Date Activated Date Inactivated Comments Full Code 12/30/2022 12:46 PM Full Code 01/12/2018 8:34 PM 01/13/2018 3:53 PM Healthcare Agents on File Name Relationship Healthcare [facility] Priscilla Alva Child Primary Decision Maker Latest Code Status on File Code Status Date Activated Date Inactivated Comments Full Code 12/30/2022 12:46 PM 12/31/2022 8:14 PM Code Status History Code Status Date Activated Date Inactivated Comments Full Code 01/12/2018 8:34 PM 01/13/2018 3:53 PM Full Code 01/10/2018 3:36 PM 01/12/2018 8:34 PM Healthcare Agents on File Name Relationship Healthcare Agent Bushra mina Communication Priscilla Alva Child Primary Decision Maker Discharge Instructions * Attachments The following attachments cannot be sent through Care Everywhere. * Chest Pain (Scottish) * Back Pain (Scottish) * Shoulder Pain (Scottish) documented in this encounter* Instructions* Justice Shaver [...] sent through Care Everywhere. * Neck Spasm (Scottish) documented in this encounter* Attachments The following attachments cannot be sent through Care Everywhere. * Abdominal Pain (Scottish) * Acid-Reducing Medicines: General Info (Scottish) documented in this encounter Assessments Diagnosis Chronic [...] Procedures VL DUP CAROTID BILATERAL Lisa Wyatt, SUPERINTENDENT ELECTRIC POWER - STUDIO OPERATION ENGINEER [address] [place] [address] Specialty Diagnoses / Procedures Referred By Contandrae t Referred To Contact Diagnoses Lower extremity numbness Procedures EMG & NERVE CONDUCTION Jennie Hernandez MD [address] [place] [address] wJ Cee MD [address] [place] [address] Referral ID Status Reason Start Date Expiration Date V isits Requested Visits Authorized [id number] Pending Review 02/25/2023 03/21/2024 1 1 Specialty Diagnoses / Procedures Referred By Contac t Referred To Contact Diagnoses Osteoarthritis of left sacroiliac joint Procedures US IMAGING FOR ORTHO Jennie Hernandez MD [address] [place] [address] Referral ID Status Reason Start Date Expiration Date V isits Requested Visits Authorized [id number] New Request 04/18/2023 05/12/2024 1 1 Specialty Diagnoses / Procedures Referred By Contac t Referred To Contact Diagnoses Osteoarthritis of both sacroiliac joints Pain of both sacroiliac joints Procedures US IMAGING FOR ORTHO Jennie Hernandez MD [address] [place] [address] Referral ID Status Reason Start Date Expiration Date V isits Requested Visits Authorized [id number] New Request 07/16/2023 08/09/2024 1 1 Specialty Diagnoses / Procedures Referred By Contac t Referred To Contact Diagnoses Hyperreflexia Procedures MRI SPINE THORACIC WITHOUT CONTRAST [place] MRI, DORSAL SPINE Nikhil Mohr MD [address] [place] [address] Referral ID Status Reason Start Date Expiration Date V isits Requested Visits Authorized [id number] New Request 08/14/2023 09/07/2024 1 1 Specialty Diagnoses / Procedures Referred By Contac t Referred To Contact Diagnoses Hyperreflexia Procedures MRI SPINE CERVICAL WITHOUT CONTRAST [place] MRI, CERV SPINE Nikhil Mohr MD [address] [place] [address] Referral ID Status Reason Start Date Expiration Date V isits Requested Visits Authorized [id number] New Request 08/14/2023 09/07/2024 1 1 Additional Source Comments (unrecognized sect ion and content) No Status Records FoundNo Status Records FoundNo Status Records FoundNo Status Records FoundNo Status Records FoundNo Status Records FoundNo Status Records FoundNo Status Records FoundNo Status Records FoundNo Status Records Found INFORMATION SOURCE (unrecogn ized section and content) DATE CREATED AUTHOR 03/26/2018 [facility] DATE CREATED AUTHOR AUTHOR'S ORGANIZ ATION 03/26/2018 [facility] DATE CREATED AUTHOR AUTHOR'S ORGANIZ ATION 07/11/2022 Tristan Martin [facility] DATE CREATED AUTHOR AUTHOR'S ORGANIZ ATION 01/18/2023 [facility] DATE CREATED AUTHOR AUTHOR'S ORGANIZ ATION 04/15/2023 [facility] DATE CREATED AUTHOR AUTHOR'S ORGANIZ ATION 07/18/2023 [facility] DATE CREATED AUTHOR AUTHOR'S ORGANIZ ATION 09/22/2023 [facility] DATE CREATED AUTHOR AUTHOR'S ORGANIZ ATION 09/22/2023 [facility] DATE CREATED AUTHOR AUTHOR'S ORGANIZ ATION 10/11/2023 [facility] DATE CREATED AUTHOR AUTHOR'S ORGANIZ ATION 11/25/2023 [facility] EPIC Reason for Visit (unrecogniz ed section and content) Reason Comments Shoulder Pain ongoing for past wee k worse today Neck Pain worse today Chest Pain ongoing for one week worse today Reason Comments Neck Pain burning/shooting kalen n, BL posterior neck. REcent nerve procedure with pain management. Out of [place] for 2 days. Reason Comments Flank Pain pt staes bilateral f alnk pain, onset Friday Status Reason Specialty Diagnoses / Procedures Referred By Contact Referred To Contact Authorized Stress Lab Diagnoses Atherosclerotic heart disease of [place] coronary artery without angina pectoris Procedures HC NM LEXISCAN STRESS W NUC HC NM SEST. REST STRESS MULT 64931 NM STRESS Lisa Wyatt, SUPERINTENDENT ELECTRIC POWER - STUDIO OPERATION ENGINEER [address] [place] [address] [facility] Stress Lab [address] [place] [phone] Status Reason Specialty Diagnoses / Procedures Referre d By Contact Referred To Contact Closed Vascular Lab Diagnoses Other specified peripheral vascular diseases Procedures HC EXTRACRANIAL BILAT STUDY 47670 US CAROTIDS Lisa Wyatt, SUPERINTENDENT ELECTRIC POWER - STUDIO OPERATION ENGINEER [address] [place] [address] [facility] Vascular Lab [address] [place] [phone] Status Reason Specialty Diagnoses / Procedures Referred By Contact Referred To Contact Closed Stress Lab Diagnoses Atherosclerotic heart disease of [place] coronary artery without angina pectoris Procedures HC NM LEXISCAN STRESS W NUC HC NM SEST. REST STRESS MULT 32362 NM STRESS Lisa Wyatt, SUPERINTENDENT ELECTRIC POWER - STUDIO OPERATION ENGINEER [address] [place] [address] [facility] Stress Lab [address] [place] [address] Reason Comments Wrist Pain Right, onset last [...] pain, unspecified type Kendell Camacho MD [address] [facility] [place] [address] [facility] [address] [place] [address] Referral ID Status Reason Start Date Expiration Date Visits Re quested Visits Authorized [id number] 1 1 Reason Comments Pain New Patient Specialty Diagnoses / Procedures Referred By Contac t Referred To Contact Diagnoses Osteoarthritis of left sacroiliac joint Procedures US IMAGING FOR Jennie Cui MD [address] [place] [address] Referral ID Status Reason Start Date Expiration Date V isits Requested Visits Authorized [id number] New Request 04/18/2023 05/12/2024 1 1 Reason Comments Pain Joint Injection Reason Comments Pain Follow-up Reason Comments Pain Specialty Diagnoses / Procedures Referred By Contac t Referred To Contact Diagnoses Osteoarthritis of both sacroiliac joints Pain of both sacroiliac joints Procedures US IMAGING FOR Jennie Cui MD [address] [place] [address] Referral ID Status Reason Start Date Expiration Date V isits Requested Visits Authorized [id number] New Request 07/16/2023 08/09/2024 1 1 Reason Comments Pain Right Sacroiliac laurent nt Follow-up Right Sacroiliac laurent nt Joint Injection Right Sacroiliac laurent nt Reason Comments New Patient bilateral lower limb polyneuropathy Specialty Diagnoses / Procedures Referred By Anni antonio Referred To Contact Neurology Diagnoses Polyneuropathy Jennie Hernandez MD [address] [facility] [place] [address] [place] [address] Nikhil Mohr MD [address] [place] [address] Referral ID Status Reason Start Date Expiration Date Visits Re quested Visits Authorized [id number] Closed 06/10/2023 07/04/2024 1 1 Specialty Diagnoses / Procedures Referred By Anni antonio Referred To Contact Diagnoses Sacroiliitis Sacroiliitis [M46.1] Procedures IL ARTHRODESIS SACROILIAC JOINT PERCUTANEOUS CHG FLUOROSCOPY UP TO 1 HOUR PHYSICIAN/QHP TIME IL IMPLANT/INSERT DEVICE, NOC PROSTHETIC IMPLANT NOS ARTHRODESIS SACROILIAC JOINT MINIMALLY INVASIVE W/ TRANSFIXING DEVICE FLUOROSCOPY IN OR Shaheen Chappell MD [address] [place] [address] Referral ID Status Reason Start Date Expiration Date Visits Re quested Visits Authorized [id number] 09/11/2023 1 1 Reason Comments Influenza Symptoms [...] 1447 (Given - Provider: Corrie Ibarra RN) 0713 (Held - Provider: Corrie Ibarra RN - Reason: Contraindicated - Comment: per Dr Camacho) aspirin chewable tablet 324 mg (COMPLETED) 324 mg, Oral, ONCE, 1 dose, On Fri12/30/22 at 0700 0656 (Given - Provider: Lisa Bueno RN) aspirin chewable tablet 81 mg 81 mg, Oral, DAILY, First dose on Fri12/31/22 at 0900, Until Discontinued 0845 (Given - Provid er: Corrie Ibarra RN) atorvastatin (LIPITOR) tablet 20 mg 20 mg, Oral, NIGHTLY, First dose (after last modification) on Fri12/30/22 at 2100, Until Discontinued 210 (Given - Provider: Monalisa Hudson RN) 2100 (Due) enoxaparin (LOVENOX) injection 40 mg 40 mg, SubCUTAneous, DAILY, First dose on Fri12/30/22 at 1400, Until Discontinued, Indication of Use: Prophylaxis-DVT/PE 1447 (Given - Provider: Corrie Ibarra RN) 0846 (Given - Provider: Corrie Ibarra RN) ferrous sulfate (IRON 325) tablet 325 mg 325 mg, Oral, 2 TIMES DAILY WITH MEALS, First dose on Fri12/30/22 at 1700, Until Discontinued 1758 (Given - Provider: Corrie Ibarra RN) 0845 (Given - Provider: Corrie Ibarra RN)1742 (Given - Provider: Corrie Ibarra RN) isosorbide mononitrate (IMDUR) extended release tablet 60 mg 60 mg, Oral, DAILY, First dose (after last modification) on Fri12/30/22 at 1400, Until Discontinued, Do not crush or chew. 1447 (Given - Provider: Corrie Ibarra RN) 08 (Given - Provider: Corrie Ibarra RN) lisinopril [...] break. 1447 (Given - Provider: Corrie Ibarra RN)210 (Given - Provider: Monalisa Hudson RN) 0847 (Given - Provider: Corrie Ibarra RN)2100 (Due) pregabalin (LYRICA) capsule 50 mg 50 mg, Oral, 2 TIMES DAILY, First dose (after last modification) on Fri12/30/22 at 1400, Until Discontinued 1447 (Given - Provider: Corrie Ibarra RN)210 (Given - Provider: Monalisa Hudson RN) 0846 [...] or break. 0657 (Given - Provider: Lisa Bueno RN) nitroGLYCERIN (NITROSTAT) SL tablet 0.4 mg 0.4 [...] mg from all sources in 24 hours. 2354 (Given - Provider: Monalisa Hudson RN) 0846 (Given - Provider: Corrie Ibarra RN - [...] Order 09/16/2023 09/17/2023 09/18/2023 BUPivacaine-EPINEPHrine (MARCAINE;SENSORCAINE-MPF) 0.5% -[id number] injection (CANCELED) NEEDED, Starting on Debbie 09/18/23 at 1144, Until Debbie 09/18/23 at 1228, Intra-op/Intra-Proc 1144 (Given - Provid er: Shaheen Chappell MD) ceFAZolin (ANCEF) 2 g in dextrose 100 mL premix IVPB (COMPLETED) 2 g, Intravenous, Administer over 30 Minutes, CARGO TANK MECHANIC TO PROCEDURE, 1 dose, Starting on Debbie [...] Care Teams (unrecognized sec tion and content) [place] Relationship Specialty Start Date End Date Romario Man MD [address] [place] [address] PCP - General Family Medicine 06/14/19 Timber Bucker Relationship Specialty Start Date End Date Romario Man MD [address] [place] [address] PCP - General Family Medicine 06/14/19 Timber [place]ucker Relationship Specialty Start Date End Date Romario Man MD [address] [place] [address] PCP - General Family Medicine 04/18/23 Timber Bucker Relationship Specialty Start Date End Date Romario Man MD [address] [place] [address] PCP - General Family Medicine 04/18/23 [place]ucker Relationship Specialty Start Date End Date Romario Man MD [address] [place] [address] PCP - General Family Medicine 04/18/23 Tim[place]ucker Relationship Specialty Start Date End Date Romario Man MD [address] [place] [address] PCP - General Family Medicine 04/18/23 Timber Bucker Relationship Specialty Start Date End Date Romario Man MD [address] [place] [address] PCP - General Family Medicine 04/18/23 Timber Bucker Relationship Specialty Start Date End Date Romario Man MD [address] [place] [address] PCP - General Family Medicine 04/18/23 Tim[place]ucker Relationship Specialty Start Date End Date Romario Man MD [address] [place] [address] PCP - General Family Medicine 04/18/23 [place]ucker Relationship Specialty Start Date End Date Romario Man MD [address] [place] [address] PCP - General Family Medicine 04/18/23 [place]ucker Relationship Specialty Start Date End Date Romario Man MD [address] [place] [address] PCP - General Family Medicine 06/14/19 FOR [...] BE BASED ON THE PRIMARY CLINICAL RECORDS. [employer] provides no warranty or guarantee of the accuracy or completeness of information in this document.
[2023-12-04 12:29] LABS: Alanine Aminotransferase 28 U/L (16-63); Albumin Globulin Ratio 0.8; Albumin Level 3.2 g/dL (3.4-5.0); Alkaline Phosphatase 99 U/L (46-116); Anion Gap 11.2; Aspartate Amino Transferase 18 U/L (15-37); BUN Creatinine Ratio 13.6; Bilirubin Direct 0.1 mg/dL (0.0-0.2); Bilirubin Total 0.3 mg/dL (0.2-1.0); Calcium 8.9 mg/dL (8.5-10.1); Carbon Dioxide 29.4 mmol/L (21.0-32.0); Chloride 98 mmol/L (98-107); Chol HDL Ratio 2.5; Cholesterol 147 mg/dL (<=200); Estimated GFR (African America >60 (>=60); Estimated GFR (Non-African Ame >60 (>=60); Globulin 4.2 g/dL; Glucose 84 mg/dL (74-106); HDL Cholesterol 58 mg/dL (40-60); LDL Cholesterol Calculated 75.4 mg/dL; Potassium 4.6 mmol/L (3.5-5.1); Sodium 134 mmol/L (136-145); Total Protein 7.4 g/dL (6.4-8.2); Triglycerides 68 mg/dL (<=150); VLDL CHOLESTEROL 13.6 mg/dL
[2023-12-04 12:35] LABS: Basophils Absolute Auto 0.1 10^3/uL (0.0-0.1); Basophils Percent Auto 0.8 % (0.2-2.0); Eosinophils Absolute Auto 0.2 10^3/uL (0.0-0.7); Eosinophils Percent Auto 2.1 % (0.9-7.0); Hematocrit 38.5 % (42.0-54.0); Hemoglobin 12.5 g/dL (14.0-18.0); Immature Granulocytes Abs Auto 0.04 10^3/uL (0.00-0.03); Immature Granulocytes Pct Auto 0.4 % (0.0-0.5); Lymphocytes Absolute Auto 2.1 10^3/uL (1.2-3.8); Lymphocytes Percent Auto 22.4 % (20.5-60.0); Mean Corpuscular HGB Conc 32.5 g/dL (29.9-35.2); Mean Corpuscular Volume 92.5 fL (80.0-94.0); Mean Platelet Volume 9.5 fL (9.5-13.5); Monocytes Absolute Auto 0.7 10^3/uL (0.3-0.8); Monocytes Percent Auto 7.7 % (1.7-12.0); Neutrophils Absolute Auto 6.3 10^3/uL (1.4-6.5); Neutrophils Percent Auto 66.6 % (43.0-75.0); Platelet Count 295 10^3/uL (150-450); Red Blood Count 4.16 10^6/uL (4.70-6.10); Red Cell Distribution Width 13.6 % (11.0-15.0); White Blood Count 9.5 10^3/uL (4.0-11.0)
[2023-12-04 13:54] LABS: Prostate Specific Antigen Dx 1.22 ng/mL (<=4.00)
== END 2023-12-04 11:43 | disposition home or self-care (01) ==
LOC: LAB 11:43
PROVIDERS: PCP Family Medicine; Visit Provider Family Medicine
DX: Z79.899 Other long term (current) drug therapy (principal); I10 Essential (primary) hypertension; I25.10 Atherosclerotic heart disease of native coronary artery without angina pectoris; Z12.5 Encounter for screening for malignant neoplasm of prostate; E55.9 Vitamin D deficiency, unspecified
CPT/HCPCS: 36415; 80048; 80061; 80076; 82306; 84153; 85025

== ENCOUNTER 2023-12-29 14:09 | Outpatient (OUT) | payer OTHER, SELFPAY ==
--- NOTE | 2023-12-29 14:16 | XR_ITS ---
[facility] [place] [id number] Patient Name: AJ MORA MRN: [id number] date: 1960 Sex: M Assigned Patient Location: [facility] Current Patient Location: Accession/Order Number: [id number] Exam Date: 12/29/2023 14:25 Report Date: 12/30/2023 07:25 At the request of: NON-STAFF PHYSICIAN Procedure: XR lumbar spine 6V w bending EXAMINATION: XR lumbar spine 6V w bending HISTORY: Lumbar Spinal Stenosis M48.062 COMPARISON: No relevant comparison available. FINDINGS: BONES: Posterior decompression L3-L5. Neutral projection demonstrates 4 mm retrolisthesis of L3 in relation to L4. Severe diffuse degenerative spondylosis and facet osteoarthropathy. DISC SPACES: Multilevel disc space narrowing with endplate sclerosis and vacuum disks PARASPINOUS: Negative. No paraspinous abnormality is seen. OTHER: No transient spondylolisthesis with flexion or extension. Fusion of the right sacroiliac joint. XR/XR lumbar spine 6V w bending IMPRESSION: 4 mm retrolisthesis of L3 on L4 with no dynamic instability Severe diffuse degenerative changes Electronically authenticated by: LUIS CARLOS ENCARNACION Date: 12/30/2023 07:25
== END 2023-12-29 14:10 | disposition home or self-care (01) ==
LOC: RAD 14:11
PROVIDERS: PCP Family Medicine
DX: M48.062 Spinal stenosis, lumbar region with neurogenic claudication (principal); M51.36 Other intervertebral disc degeneration, lumbar region
CPT/HCPCS: 72114

== ENCOUNTER 2024-02-09 12:59 | Outpatient (OUT) | payer OTHER, SELFPAY ==
--- NOTE | 2024-02-09 13:08 | XR_ITS ---
[facility] [place] [id number] Patient Name: AJ MORA MRN: [id number] date: 1960 Sex: M Assigned Patient Location: [facility] Current Patient Location: [facility] Accession/Order Number: [id number] Exam Date: 02/09/2024 13:15 Report Date: 02/09/2024 13:45 At the request of: ELVA WARNER Procedure: XR hand LT min 3V PROCEDURE: XR wrist LT min 3V, XR hand LT min 3V COMPARISON: None. HISTORY: Left Wrist Pain, Left Hand Pain FINDINGS: BONES:No acute fracture or dislocation. Moderate to severe degenerative changes of the medial carpus most significant along the scaphoid trapezoid and scaphoid trapezial articulations. Marginal osteophyte formation. SOFT TISSUES:Negative. No visible soft tissue swelling. EFFUSION:None visible. OTHER: Negative. XR/XR hand LT min 3V IMPRESSION: Degenerative osteoarthritis most significant along the medial carpus Electronically authenticated by: LUIS CARLOS ENCARNACION Date: 02/09/2024 13:45
--- NOTE | 2024-02-09 13:08 | XR_ITS ---
[facility] [place] [id number] Patient Name: AJ MORA MRN: [id number] date: 1960 Sex: M Assigned Patient Location: [facility] Current Patient Location: [facility] Accession/Order Number: [id number] Exam Date: 02/09/2024 13:15 Report Date: 02/09/2024 13:45 At the request of: ELVA WARNER Procedure: XR wrist LT min 3V PROCEDURE: XR wrist LT min 3V, XR hand LT min 3V COMPARISON: None. HISTORY: Left Wrist Pain, Left Hand Pain FINDINGS: BONES:No acute fracture or dislocation. Moderate to severe degenerative changes of the medial carpus most significant along the scaphoid trapezoid and scaphoid trapezial articulations. Marginal osteophyte formation. SOFT TISSUES:Negative. No visible soft tissue swelling. EFFUSION:None visible. OTHER: Negative. XR/XR wrist LT min 3V IMPRESSION: Degenerative osteoarthritis most significant along the medial carpus Electronically authenticated by: LUIS CARLOS ENCARNACION Date: 02/09/2024 13:45
== END 2024-02-09 13:00 | disposition home or self-care (01) ==
LOC: RAD 13:01
PROVIDERS: PCP Family Medicine; Visit Provider Nurse Practitioner Family
DX: M25.532 Pain in left wrist (principal); M79.642 Pain in left hand; M19.032 Primary osteoarthritis, left wrist; M19.042 Primary osteoarthritis, left hand
CPT/HCPCS: 73110; 73130

== ENCOUNTER 2024-02-18 12:56 | Outpatient (OUT) | payer OTHER, SELFPAY ==
--- NOTE | 2024-02-18 14:19 | PM.CN ---
Consult Note: HPI Data of Consult Patient: known to practice within the last 3 years Requesting Physician: Isabelle Maria NP Primary Care Provider: Romario Bronson MD Consult Narrative Reason for consult: f/u Narrative: Noel Alva a pleasant 62 year old male presents for evaluation of chronic bilateral shoulders, hand, knee, and low back pain. Today patient rating pain 4/10, increasing to 8/10 with activity and depending on the weather due to OA, generalized and in bilateral shoulders and low back hip buttock pain. Patient has noticed increase in OA pain and decrease in functional ability since stopping, JOSE EDUARDO 42% today. Patient has returned to work and has noticed increase in pain and decline in functional ability. Patient would like to discuss additional treatment options for his chronic bilateral shoulder pain. Reports he previously saw [facility] and failed injections, was not offered surgical intervention. patient engaged in HEP greater than 6 weeks without benefit. cc:: CC: Isabelle Maria NP Review of Systems ROS Status of ROS 10 or more systems reviewed and unremarkable except as noted in history and below Musculoskeletal Reports: back pain and joint pain PFSH PFSH Medical History Bilateral shoulder pain ?M25.511 - Pain in right shoulder (ICD-10) ?M25.512 - Pain in left shoulder (ICD-10) Aortic atherosclerosis ?I70.0 - Atherosclerosis of aorta (ICD-10) Hypertension ?I10 - Essential (primary) hypertension (ICD-10) Numbness and tingling ?R20.0 - Anesthesia of skin (ICD-10) ?R20.2 - Paresthesia of skin (ICD-10) Back pain ?M54.9 - Dorsalgia, unspecified (ICD-10) Neck pain ?M54.2 - Cervicalgia (ICD-10) Anemia ?D64.9 - Anemia, unspecified (ICD-10) Asthma ?J45.909 - Unspecified asthma, uncomplicated (ICD-10) Surgical History H/O heart artery stent ?Z95.5 - Presence of coronary angioplasty implant and graft (ICD-10) H/O laminectomy ?Z98.890 - Other specified postprocedural states (ICD-10) Meds Home Medications and Allergies Home Medications ?Medication ?Instructions ?Recorded ?Confirmed ?Type albuterol sulfate 90 mcg/actuation 1 inh inhalation Q6H 03/14/23 06/16/23 History aerosol inhaler (ProAir HFA) aspirin 81 mg tablet,delayed 81 mg PO DAILY 03/14/23 06/16/23 History release atorvastatin 40 mg tablet 40 mg PO DAILY 03/14/23 06/16/23 History cholecalciferol (vitamin D3) 50 50 mcg PO DAILY 03/14/23 06/16/23 History mcg (2,000 unit) capsule ferrous sulfate 325 mg (65 mg 325 mg PO BID 03/14/23 06/16/23 History iron) tablet (Niels-Time) isosorbide mononitrate 30 mg 30 mg PO DAILY 03/14/23 06/16/23 History tablet,extended release 24 hr lisinopril 40 mg tablet 40 mg PO DAILY 03/14/23 06/16/23 History meloxicam 15 mg tablet 15 mg PO DAILY 03/14/23 06/16/23 History metoprolol tartrate 25 mg tablet 25 mg PO BID 03/14/23 06/16/23 History nitroglycerin 0.4 mg sublingual 0.4 mg sublingual Q5M PRN chest 03/14/23 06/16/23 History tablet (Nitrostat) pain oxycodone-acetaminophen 5 mg-325 1 tab PO TID 03/14/23 06/16/23 History mg tablet (Endocet) pantoprazole 40 mg tablet,delayed 40 mg PO DAILY 03/14/23 06/16/23 History release (Protonix) pregabalin 100 mg capsule (Lyrica) 100 mg PO BID 03/14/23 06/16/23 History sucralfate 1 gram tablet (Carafate) 1 g PO Q6H 03/14/23 06/16/23 History tizanidine 4 mg capsule 4 mg PO .HS PRN muscle spasticity 03/14/23 06/16/23 History oxycodone-acetaminophen 5 mg-325 1 tab PO TID PRN pain #90 tabs 05/12/23 06/16/23 Rx mg tablet (Percocet) pregabalin 50 mg capsule (Lyrica) 50 mg PO BID #60 caps 05/21/23 06/16/23 Rx oxycodone-acetaminophen 5 mg-325 1 tab PO TID PRN pain #90 tabs 06/11/23 06/16/23 Rx mg tablet (Percocet) oxycodone-acetaminophen 5 mg-325 1 tab PO TID PRN pain #90 tabs 07/07/23 Rx mg tablet (Percocet) oxycodone-acetaminophen 5 mg-325 1 tab PO TID PRN pain #90 tabs 08/11/23 Rx mg tablet (Percocet) oxycodone-acetaminophen 5 mg-325 1 tab PO TID PRN pain #90 tabs 08/12/23 Rx mg tablet (Percocet) oxycodone-acetaminophen 5 mg-325 1 tab PO TID PRN pain #90 tabs 09/04/23 Rx mg tablet (Percocet) oxycodone-acetaminophen 5 mg-325 1 tab PO TID PRN pain #90 tabs 10/07/23 Rx mg tablet (Percocet) oxycodone-acetaminophen 5 mg-325 1 tab PO TID PRN pain #90 tabs 10/08/23 Rx mg tablet (Percocet) oxycodone-acetaminophen 5 mg-325 1 tab PO TID PRN pain #90 tabs 11/10/23 Rx mg tablet (Percocet) oxycodone-acetaminophen 5 mg-325 1 tab PO TID PRN pain #90 tabs 12/10/23 Rx mg tablet (Percocet) oxycodone-acetaminophen 5 mg-325 1 tab PO TID PRN pain #90 tabs 01/13/24 Rx mg tablet (Percocet) pregabalin 100 mg capsule (Lyrica) 100 mg PO BID #60 caps 01/13/24 Rx oxycodone-acetaminophen 5 mg-325 1 tab PO TID PRN pain #90 tabs 02/18/24 Rx mg tablet (Percocet) Allergies Allergy/AdvReac Type Severity Reaction Status Date / Time No Known Drug Allergies Allergy Verified 06/16/23 08:36 Exam Constitutional Documenting provider has reviewed patient's vital signs: yes Common normals: no apparent distress, oriented x3, healthy appearing, alert and well nourished General appearance: cooperative HENDC Common normals: normocephalic, hearing grossly normal bilaterally and moist oral mucous membranes Head and scalp: normocephalic Eye Common normals: PERRL Pupil: PERRL Neck & C-Spine Common normals: full ROM General: normal visual inspection Chest Common normals: inspection of chest normal Respiratory Common normals: normal respiratory effort, no retractions and no use of accessory muscles Back & Pelvis Lumbar spine/lower back: ROM limited, pain with ROM and straight leg raise negative bilaterally Sacroiliac joints: SI joints normal Other: positive facet loading bilaterally Extremity Common normals: normal to inspection and full ROM Right upper extremity: shoulder joint Left upper extremity: shoulder joint Other: bilateral shoulder ROM limited, increased pain with ROM, positive empty can test, positive posterior-lift off, positive cross body adduction. increased pain with palpation of bilateral suprascapular/axillary nerves, reports sharp shooting pain with overhead motions. strength 5/5 in BUE, sensation intact Neuro Common normals: oriented x3, CN's II-XII intact bilaterally, moves all extremities, no focal motor deficits, no sensory deficits noted, deep tendon reflexes 2+ bilaterally and gait normal Sensorium/orientation: alert Motor exam: strength 5/5 throughout and no movement abnormalities noted Psych Common normals: mental status grossly normal, thought process normal, cooperative, affect normal, speech normal and activity/motor behavior normal Speech: normal speech Thought process: normal thought process Assessment and Plan Assessment and Plan (1) Bilateral shoulder pain: (2) Osteoarthritis of shoulders, bilateral: (3) Lumbar spondylosis: (4) Sacroiliac joint dysfunction: (5) Lumbar stenosis with neurogenic claudication: (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 finds moderate relief of pain with current pain medication regimen I have refilled the patient's opioid prescriptions at the above noted dose and schedule.? I feel these medications are improving the patient's quality of life and allow them to tolerate activities of daily living as well as participate in recreational activity.? The patient does not report intolerable side effects. The patient is NOT opioid naive and non-pharmacologic and non-opioid treatment has failed to significantly relieve the patient's pain and improve functionality. The patient has a diagnosis that is related to a somatic or visceral pain etiology. ? ?? I reviewed with the patient the potential risks and side effects with the use of? opioid medications including but not limited to respiratory depression,? sedation, and even . I verified the patient has access to naloxone should? these effects occur. I advised the patient to avoid the use of any other? sedation substances including alcohol, THC, and benzodiazepines while? taking opioid medications due to the risk of compounding side effects and? detrimental outcomes. I reviewed the [employer], pain treatment agreement, urine? drug screen, and opioid start talking forms. The patient was advised to let? their family know they had Naloxone in case they would need to administer? the medication.? ?? A drug screen was completed within the last year, and no aberrancies were noted regarding their use of controlled substances. The patient understands they are subject to the terms and conditions of the pain contract that they have signed. ? ?? I have checked an [facility] report on this patient today and there are no aberrancies noted in the prescribing history.? (7) Osteoarthritis: Assessment and Plan: OA numerous sites (8) Chronic pain syndrome: (9) Myofascial pain: Plan patient would like bilateral suprascapular/axillary nerve block for chronic bilateral shoulder pain unresponsive to PT/HEP greater than 6 weeks, steroid injections, and conservative medications. reports he was a patient at [facility] orthopedics and they did not offer surgical intervention. Patient would not like to go back. update bilateral shoulder xrays, based on physical exam bilateral suprascapular and axillary nerve block under fluoroscopy working towards RFA. risks vs benefits discussed stop mobic 15mg daily for 1 month, no longer noticing improvement. declining alternative NSAID, reports side effects from diclofenac in the past. can restart mobic 15mg daily as needed in 1 month continue oxycodone-acetaminophen 5-325mg TID PRN moderate to severe pain, tolerated well with functional improvement continue lyrica 100mg BID, continue tizanidine 4mg HS PRN f/u 1 week after each injection
== END 2024-02-18 12:57 | disposition home or self-care (01) ==
PROVIDERS: PCP Family Medicine; Visit Provider Nurse Practitioner
DX: M25.511 Pain in right shoulder (principal); M25.512 Pain in left shoulder; M19.012 Primary osteoarthritis, left shoulder; M19.011 Primary osteoarthritis, right shoulder; M47.816 Spondylosis without myelopathy or radiculopathy, lumbar region; M53.3 Sacrococcygeal disorders, not elsewhere classified; M48.062 Spinal stenosis, lumbar region with neurogenic claudication; Z79.891 Long term (current) use of opiate analgesic; G89.4 Chronic pain syndrome; M79.18 Myalgia, other site
CPT/HCPCS: G0463

== ENCOUNTER 2024-02-19 16:11 | Outpatient (OUT) | payer OTHER, SELFPAY ==
--- NOTE | 2024-02-19 | XR_ITS ---
[address] [address] Patient Name: AJ MORA MRN: [id number] date: 1960 Sex: M Assigned Patient Location: [facility] Current Patient Location: Accession/Order Number: [id number] Exam Date: 02/19/2024 16:25 Report Date: 02/20/2024 07:12 At the request of: JAGJIT ANGUIANO Procedure: XR shoulder KOURTNEY min 2V EXAMINATION: XR shoulder KOURTNEY min 2V HISTORY: bilateral shoulder pain, osteoarthritis COMPARISON: No relevant comparison available. FINDINGS: RIGHT FINDINGS: BONES: No acute fracture or dislocation. Moderate to severe right glenohumeral joint osteoarthropathy with joint space narrowing and marginal osteophyte formation. SOFT TISSUES: Negative. No visible soft tissue swelling. OTHER: Negative. LEFT FINDINGS: BONES: No acute fracture or dislocation. Moderate to severe right glenohumeral joint osteoarthropathy with joint space narrowing and marginal osteophyte formation. SOFT TISSUES: Negative. No visible soft tissue swelling. OTHER: Negative. XR/XR shoulder KOURTNEY min 2V IMPRESSION: RIGHT CONCLUSION: Severe glenohumeral joint osteoarthritis LEFT CONCLUSION: Severe glenohumeral joint osteoarthritis Electronically authenticated by: LUIS CARLOS ENCARNACION Date: 02/20/2024 07:12
--- OUTSIDE RECORDS SUMMARY | 2024-02-19 16:22 | XMS_ITS | CCD ---
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 Name Role Phone PHYSICIAN, DEFAULT Unavailable Unavailable PHYSICIAN, DEFAULT Unavailable Unavailable PHYSICIAN, DEFAULT Unavailable Unavailable PHYSICIAN, DEFAULT Unavailable Unavailable AHMAD, SHOWKAT Unavailable Unavailable AHMAD, SHOWKAT Unavailable Unavailable MELVI BATRES Unavailable Unavailable CANTUMARY Unavailable Unavailable STEVE AMEER Unavailable Unavailable Magda, Romario Bloom Primary Care Provider [phone] Magda, Romario Bloom Primary Care Provider Romario Man MD Primary Care Provider MAGDA, ROMARIO Primary Care Physician MAGDA PROVIDER, ROMARIO Referring Unavailab Julian Kelly Attending Unavailable NILL, Julian Davis Attending Unavailable NILL, Julian Davis Attending Unavailable NILL, Julian Davis Attending Unavailable NADERER PROVIDER, ROMARIO Referring Unavailab hemant Man MD, Romario Bloom Primary Care Provider MASSEY ., JULIANE Consulting Unavailable MASSEY ., JULIANE Admitting Unavailable MASSEY ., JULIANE Attending Unavailable NADAGUS, DR ROMARIO Waddell Primary Care Unavailable NADERER, DR ROMARIO Waddell Primary Care Unavailable SIEGAL, SHAHEEN Admitting Unavailable SIEGAL, SHAHEEN Attending Unavailable MASSEY ., JULIANE Admitting Unavailable MASSEY ., JULIANE Attending Unavailable ZINISSA, DR PEDRO PABLO Davis Consulting Unavailable NADERESusan, DR ROMARIO Waddell Primary Care Unavailable MASSEY ., JULIANE Consulting Unavailable NADERESusan, DR ROMARIO Waddell Admitting Unavailable NADERER, DR [...] DR ROMARIO Waddell Primary Care Unavailable JULIANTREVON Islas Consulting Unavailable MORGOS, DELFINO Consulting Unavailable GEMBUS, MARY Consulting Unavailable NADERER, DR ROMARIO Waddell Primary Care Unavailable SIEGAL, SHAHEEN Admitting Unavailable SIEGAL, SHAHEEN Attending Unavailable WEST, DR LUIS CARLOS Feldman Consulting Unavailable SIEGAL, SHAHEEN Consulting Unavailable MASSEY ., JULIANE Consulting Unavailable IBRAHIM ., DR NELSON Neal Admitting Unavailable IBRAHIM ., DR NELSON Neal Attending Unavailable NADERER, DR ROMARIO Waddell Primary Care Unavailable IBRAHIM ., DR NELSON Neal Admitting Unavailable IBRAHIM ., DR NELSON Neal Attending Unavailable NADERER, DR ROMARIO Waddell Primary Care Unavailable IBRAHIM ., DR NELSON Neal Consulting Unavailable MASSEY ., JULIANE Consulting Unavailable IBRAHIM ., DR NELSON Neal Admitting Unavailable IBRAHIM ., DR NELSON Neal Attending Unavailable NADERESusan, DR ROMARIO Waddell Primary Care Unavailable IBRAHIM ., DR NELSON Neal Consulting Unavailable DRIVERCARLOSLE Consulting Unavailable IBRAHIM ., DR NELSON Neal Attending Unavailable NADERER, DR ROMARIO Waddell Primary Care Unavailable IBRAHIM ., DR NELSON Neal Consulting Unavailable IBRAHIM ., DR NELSON Neal Admitting Unavailable AGUBOSIM, DELFINO Consulting Unavailable IBRAHIM ., DR NELSON Neal Admitting Unavailable IBRAHIM ., DR NELSON Neal Attending Unavailable NADERER, DR ROMARIO Waddell Primary Care Unavailable MASSEY ., JULIANE Consulting Unavailable NADERER, DR ROMARIO Waddell Primary Care Unavailable MASSEY ., JULIANE Consulting Unavailable IBRAHIM ., DR NELSON Neal Attending Unavailable IBRAHIM ., DR NELSON Neal Admitting Unavailable NADERER, DR ROMARIO Waddell Primary Care Unavailable IBRAHIM, MIGUEL ÁNGEL Admitting Unavailable IBRAHIM, MIGUEL ÁNGEL Attending Unavailable IBRAHIM ., DR NELSON Neal Consulting Unavailable IBRAHIM ., DR NELSON Neal Attending Unavailable NADERER, DR ROMARIO Waddell Primary Care Unavailable MASSEY ., JULIANE Consulting Unavailable IBRAHIM ., DR NELSON Neal Admitting Unavailable MASSEY ., JULIANE Consulting Unavailable IBRAHIM ., DR NELSON Neal Attending Unavailable NADERER, DR ROMARIO Waddell Primary Care Unavailable IBRAHIM ., DR NELSON Neal Admitting Unavailable IBRAHIM ., DR NELSON Neal Attending Unavailable NADERER, DR ROMARIO Waddell Primary Care Unavailable IBRAHIM ., DR NELSON Neal Admitting Unavailable IBRAHIM ., DR NELSON Neal Consulting Unavailable ZIEBER, DR PEDRO PABLO Davis Consulting Unavailable SIEGAL, SHAHEEN Admitting Unavailable SHAHEEN CHAPPELL Attending Unavailable NADERER, DR ROMARIO Waddell Primary Care Unavailable SIEGAL, SHAHEEN Consulting Unavailable NADERER, DR ROMARIO Waddell Primary Care Unavailable IBRAHIM ., DR NELSON Neal Consulting Unavailable IBRAHIM ., DR NELSON Neal Admitting Unavailable IBRAHIM ., DR NELSON Neal Attending Unavailable NADERER, DR ROMARIO Waddell Primary Care Unavailable LILA, DAVIDSON Consulting Unavailable LILA, DAVIDSON Admitting Unavailable LILA, DAVIDSON Attending Unavailable Unavailable Primary Care Provider Unavailabl e HERNANDEZ, JENNIE S Referring Unavailable JW CEE Attending Unavailab Romario Morse MD Primary Care Provider [phone] HERNANDEZ, JENNIE S Referring Unavailable HERNANDEZ, JENNIE S Attending Unavailable NADERESusan, ROMARIO Primary Care Unavailable HERNANDEZ, JENNIE S Attending Unavailable NADERER, ROMARIO Primary Care Unavailable HERNANDEZ, JENNIE S Referring Unavailable HERNANDEZ, JENNIE S Attending Unavailable NADERER, ROMARIO Primary Care Unavailable HERNANDEZ, JENNIE S Referring Unavailable HERNANDEZ, JENNIE S Attending Unavailable HERNANDEZ, JENNIE S Referring Unavailable NADERER, ROMARIO Primary Care Unavailable SIEGAL, SHAHEEN Attending Unavailable SIEGAL, SHAHEEN Referring Unavailable NADERER, ROMARIO Primary Care Unavailable SIEGAL, SHAHEEN Attending Unavailable SIEGAL, SHAHEEN Referring Unavailable NADERESusan, ROMARIO Primary Care Unavailable NADERER, ROMARIO Primary Care Unavailable SIEGAL, SHAHEEN Attending Unavailable SIEGAL, SHAHEEN Referring Unavailable HERNANDEZ, JENNIE S Referring Unavailable HERNANDEZ, JENNIE S Attending Unavailable [facility] Primary Care Unavailable SELF, [...] Attending Unavailable HERNANDEZ, JENNIE S Referring Unavailable NADEREROMARIO Davis Primary Care Unavailable Romario Man MD Primary Care Provider ROMARIO MAN Primary Care Unavailabl e FANY MOHR Consulting Unavailable KENDELL CAMACHO Admitting Unavailable JANICE, KENDELL Attending Unavailable NADIA FITZPATRICK Attending Unavailable ROMARIO MAN Primary Care Unavailabl e NADERER, ROMARIO Attending Unavailable DAVIDSON SHARP Attending Unavailable ELIEL OROPEZA Attending Unavailable Allergies Allergy Classification Reported Allergen(s) Allergy Type Date of Onset Reaction(s) Facility (1 source) No Known Medication Allergies; Translations: [No Known Medication Allergies] Propensity to adverse reactions (disorder) [facility] Repository Medications Current Medications Medication Drug Class(es) Dates Sig (Normalized) Sig (Original) Acetaminophen (10 sources) Start: 12-30-2022 acetaminophen (TYLENOL) tablet 650 mg Start: 09-12-2019 take 2 tablets by mo [facility] every eight hours as needed for [...] tablet Start: 05-23-2022 take 1 tablet by [facility] twice daily [place] 5/325 Tab 1 tab(s), Oral, BID, Refill(s) [...] BID, # 90 tab(s), Refills(s) 3, Pharmacy: [id number], 167.6, cm, 05/31/22 14:31:00 [...] Start: 01-20-2023 take 1 capsule by mo [facility] twice daily Pregabalin 50 MG capsule [...] 1 tablet by mouth once daily aspirin, [id number], tablet Take 1 tablet by mouth daily. [...] 1 tablet by alissa th once daily meloxicam 15 mg oral tablet [...] injec tion 60 mg polyethylene glycol 3350 [id number] mg powder for oral solution (1 source) [...] Translations: [Preinfarction syndrome] Onset: 01-10-2018 01-13-2018 Chronic Coronary atherosclerosis and other heart disease (2 sources) Presence of coronary angioplasty implant and graft; Translations: [Presence of coronary angioplasty implant and graft] Onset: 02-11-2024 Episodic Deficiency and other anemia (3 sources) Iron deficiency anemia; Translations: [Iron deficiency anemia, unspecified] Onset: 05-31-2022 Episodic Disorders of lipid metabolism (4 sources) Hyperlipidemia, unspecified; Translations: [Dyslipidemia] Onset: 07-01-2022 01-02-2023 Chronic Diverticulosis and diverticulitis (1 source) Diverticulosis of large intestine without perforation or abscess without bleeding; Translations: [DVRTCLOS LG INT NO PERF/ABSC W/O BL] Onset: 07-01-2022 Chronic Essential hypertension (3 sources) Essential hypertension; Translations: [Essential (primary) hypertension] Onset: [...] [Other specified peripheral vascular diseases (HCC)] Chronic Residual codes; unclassified (2 sources) Localized edema; Translations: [Localized edema] Onset: 02-11-2024 Episodic Spondylosis; intervertebral disc disorders; other back problems [...] Onset: 12-30-2022 Episodic Other aftercare (1 source) pheresis nurse (current) use of aspirin; Translations: [SHOE LAY OUT PLANNER CURRENT USE OF ASPIRIN] Onset: 07-01-2022 Episodic Other aftercare (1 source) Other assisted (current) drug therapy; Translations: [OTH SHOE LAY OUT PLANNER CURRENT DRUG THERAPY] Onset: 07-01-2022 Episodic Other [...] Test Name Value Interpretation Reference Range Facility Office Visiton 02-11-2024 Follow-up visit [id number] Tami Alva [place] 1960 M Date Provider Department Center 02/11/2024 ELIEL ECKERT [facility] Family History Problem Relation Age of Onset Coronary artery disease Mother Coronary artery disease Father Family Status - Relation Status Age at Mother Father Level of Service:47527 [place] OFFICE/OUTPATIENT ESTABLISHED MOD MDM 30 MIN Normal [facility] COVID-19, Rapidon 2023 SARS-CoV-2 (COVID-19) RdRp gene DAHLIA+probe Ql (Resp) Not detected Not Detected [facility] Comment on above: Rapid NAAT: The specimen [...] management decisions. Fact sheet for Healthcare Providers: https://www.fda.gov/media/908487/download Fact sheet for Patients: https://www.fda.gov/media/312400/download Methodology: Isothermal Nucleic Acid Amplification Specimen Description .NASOPHARYNGEAL SWAB [facility] Flu A/B Ag Detectionon 10-10 Flu A Ag Detection Negative Normal NEG [facility] Comment on above: Result Comment: for Influenza A Antigen Performed By: #### F LUABA #### [facility] [address] [place], [place] [id number] Slot Floor Supervisor: Luis Carlos Del Castillo MD Flu B Ag Detection Negative Normal NEG [facility] Comment on above: Result Comment: for Influenza B Antigen. Performed By: #### F LUABA #### [facility] [address] [place] [address] Slot Floor Supervisor: Luis Carlos Del Castillo MD Rapid influenza A/B antigens on 2023 FLUAV Ag Ql (Unsp spec) Negative NEGATIVE [facility] Comment on above: for Influenza A Anti gen FLUBV Ag Ql (Unsp spec) Negative NEGATIVE [facility] Comment on above: for Influenza B Anti gen. [facility] [id number] 2023 SARS-CoV-2 (COVID-19) RNA DAHLIA+probe Ql (Unsp spec) Not detected Normal NOTDET [facility] Comment on above: Result Comment: Rapid [...] management decisions. Fact sheet for Healthcare Providers: https://www.fda.gov/media/342582/download Fact sheet for Patients: https://www.fda.gov/media/704404/download Methodology: Isothermal Nucleic Acid Amplification Performed By: #### C OVRB #### [facility] [address] [place] [address] Slot Floor Supervisor: Luis Carlos Del Castillo MD XR CHEST PORTABLEon 10-10-19 XR CHEST PORTABLE EXAMINATION: ONE XRAY VIEW [...] Nav Hudson MD 10/10/23 Final result Normal [facility] Documentationon 09-18-2023 Documentation [id number] Tami Alva 1960 M Date Provider Department Center 09/18/[address] [place] [address] [facility] Problem Relation Age of Onset Coronary artery disease Mother Coronary artery disease Father Family Status - Relation Status Age at Mother Father Normal [facility] CBCon 09-09-2023 ABSOLUTE BAS 0.1 10*3/uL Normal 0.0-0.2 [facility] ABSOLUTE EOS 0.1 10*3/uL Normal 0.0-0.7 [facility] ABSOLUTE NEUTROPHIL COUNT 7.0 10*3/uL High 1.4-6.5 [facility] Basophils/100 WBC (Bld) 0.9 % Normal 0.0-2.0 [facility] DTYPE AUTO DIFF Normal [facility] Eosinophils/100 WBC (Bld) 1.3 % Normal 0.0-11.0 [facility] Lymphocytes (Bld) [#/Vol] 1.5 10*3/uL Normal 1.2-3.4 [facility] Lymphocytes/100 WBC (Bld) 15.7 % Low 20.0-55.0 [facility] Monocytes (Bld) [#/Vol] 0.6 10*3/uL Normal 0.0-0.7 [facility] Monocytes/100 WBC (Bld) 7.0 % Normal 0.0-10.0 [facility] Neutrophils/100 WBC (Bld) 75.1 % High 37.0-75.0 [facility] Erythrocyte distribution width (RBC) [Ratio] 14.6 % High 11.5-14.5 [facility] Hematocrit (Bld) [Volume fraction] 41.6 % Low 42.0-52.0 [facility] Hemoglobin (Bld) [Mass/Vol] 13.9 g/dL Low 14.0-18.0 [facility] MCH (RBC) [Entitic mass] 33.0 pg Normal 26.0-35.0 [facility] MCHC (RBC) [Mass/Vol] 33.4 g/dL Normal 27.0-37.0 [facility] MCV (RBC) [Entitic vol] 98.7 fL Normal 80.0-100.0 [facility] Platelet mean volume (Bld) [Entitic vol] 7.8 fL Normal 7.4-11.0 [facility] Platelets (Bld) [#/Vol] 195 10*3/uL Normal 130-400 [facility] RBC (Bld) [#/Vol] 4.21 10*6/uL Normal 4.0-6.1 [facility] WBC (Bld) [#/Vol] 9.3 10*3/uL Normal 3.6-11.0 [facility] CMP FASTINGon 09-09-2023 A:G RATIO 1.5 RATIO Normal 1.3-2.2 [facility] ALBUMIN 4.3 G/dl Normal 3.5-5.0 [facility] ALP [Catalytic activity/Vol] 99 U/L Normal 38-126 [facility] ALT [Catalytic activity/Vol] 46 U/L Normal <50 [facility] AST [Catalytic activity/Vol] 57 U/L Normal 17-59 [facility] Bilirubin [Mass/Vol] 0.7 mg/dL Normal 0.2-1.3 [facility] Calcium [Mass/Vol] 9.5 mg/dL Normal 8.4-10.2 [facility] Chloride [Moles/Vol] 105 mmol/L Normal 98-107 [facility] Comment on above: Result Comment: Gilma medellin note: Triglyceride levels of 600mg/dL or higher may positively bias chloride results by approximately 2.1 mmol CO2 [Moles/Vol] 27 mmol/L Normal 22-30 [facility] Creatinine [Mass/Vol] 0.60 mg/dL Low 0.7-1.2 [facility] EST. GFR, 176 ml/min/1.73sq.m Normal [facility] EST. GFR,Non 145 ml/min/1.73sq.m Normal [facility] GFR Information Average GFR for 60-6 9 years old = 85. Normal [facility] Comment on above: Result Comment: Job Boss isaiah Kidney disease, GFR = <60. Kidney failure, GFR = <15. The GFR estimate is not adjusted for extreme body surface area or acute process, nor has it been validated for women or ethnic groups other than and . Glucose [Mass/Vol] 86 mg/dL Normal 70-100 [facility] Comment on above: Result Comment: NORMAL <100 mg/dL PREDIABETES 101-126 mg/dL DIABETES 126 mg/dL or higher Potassium [Moles/Vol] 4.0 mmol/L Normal 3.5-5.1 [facility] Protein [Mass/Vol] 7.1 g/dL Normal 6.3-8.2 [facility] Sodium [Moles/Vol] 141 mmol/L Normal 137-145 [facility] Urea nitrogen [Mass/Vol] 16 mg/dL Normal 7-20 [facility] LARGE JOINT/BURSA INJECTION AND/OR ASPIRATIONon 08-13-2023 Radiology Study observation (narrative) [facility] Office Visiton 08-13-2023 Follow-up visit [id number] Tami Alva 1960 [facility] Provider Department Center 08/13/2023 DAVIDSON HOWELL [facility] Family History Problem Relation Age of Onset Coronary artery disease Mother Coronary artery disease Father Family Status - Relation Status Age at Mother Father Level of Service:33546 [place] OFFICE/OUTPATIENT ESTABLISHED MOD MDM 30-39 MIN Reason for Visit and Comments: Coronary Artery Disease [187] Chest Pain [748569] Pre-op Exam [486109] Hyperlipidemia [182] Hypertension [045762] Normal [facility] Orders Onlyon 08-13-2023 Orders Only [id number] Tami Alva 1960 M Date Provider Department Center 08/13/2023 ADA BALTAZAR [facility] Family History Problem Relation Age of Onset Coronary artery disease Mother Coronary artery disease Father Family Status - Relation Status Age at Mother Father Normal [facility] 36on 08-03-2023 36 Patient will need an appointment for further refills - thanks ! [facility] LARGE JOINT/BURSA INJECTION AND/OR ASPIRATIONon 07-16-2023 Eric [...] fashion. The patient was prepped with Chloraprep. [facility] [place] Unspecified body regionon 07-16-2023 Image Storage This order is to facilitate the storage of the image. [facility] LARGE JOINT/BURSA INJECTION AND/OR ASPIRATIONon 06-17-2023 Radiology Study observation (narrative) [facility] LARGE JOINT/BURSA INJECTION AND/OR ASPIRATIONon 06-10-2023 [...] fashion. The patient was prepped with Chloraprep. [facility] [place] Unspecified body regionon 06-10-2023 Image Storage This order is to facilitate the storage of the image. [facility] LARGE JOINT/BURSA INJECTION AND/OR ASPIRATIONon 05-15-2023 Radiology Study observation (narrative) [facility] LARGE JOINT/BURSA INJECTION AND/OR ASPIRATIONon 04-18-2023 Ericvenkat Luu 023 8:48 PM LARGE JOINT/BURSA INJECTION AND/OR [...] fashion. The patient was prepped with Chloraprep. [facility] [place] Unspecified body regionon 04-18-2023 Image Storage This order is to facilitate the storage of the image. [facility] XR HIPS KOURTNEY 5V W PELVISon XR [...] degenerative changes Electronically authenticated by: LUIS CARLOS ECNARNACION Date: 2023-01-08 13:57 Normal [facility] XR LSPINE W_OBLS AND FLEX_EX [...] LUIS CARLOS ENCARNACION Date: 2023-01-08 14:00 Normal [facility] Hemoglobin A1Con 01-01-2023 Glucose [Mass/Vol] 114 mg/dL Normal [facility] Comment on above: Result Comment: The ADA and AACC recommend providing the estimated average glucose result to permit better patient understanding of their HBA1c result. Performed By: #### L IPR #### [address] [address] Slot Floor Supervisor: Marshall Paulino MD HbA1c (Bld) [Mass fraction] 5.6 % Normal 4.0-6.0 [facility] Comment on above: Performed By: #### L IPR #### [address] [address] Slot Floor Supervisor: Marshall Paulino MD Basic Metab w/rfx MGon 12-311 Anion gap [Moles/Vol] 9 mmol/L Normal -17 [facility] Comment on above: Performed By: #### T GEE ALONZO, BMPX #### [facility] [address] [place] [address] Slot Floor Supervisor: Luis Carlos Del Castillo MD #### GLYHGB #### [address] [address] Slot Floor Supervisor: Marshall Paulino MD BUN/CRE Ratio 39 High 9-20 [facility] Comment on above: Performed By: #### T GEE ALONZO, BMPX #### [facility] [address] [place] [address] Slot Floor Supervisor: Luis Carlos Del Castillo MD #### GLYHGB #### [address] [id number] Slot Floor Supervisor: Marshall Paulino MD Calcium [Mass/Vol] 9.5 mg/dL Normal 8.6-10.4 [facility] Comment on above: Performed By: #### Ileana ALONZO CDP, BMPX #### [facility] [address] [place] [address] Slot Floor Supervisor: Luis Carlos Del Castillo MD #### GLYHGB #### [address] [id number] Slot Floor Supervisor: Marshall Paulino MD Chloride [Moles/Vol] 106 mmol/L Normal 98-107 [facility] Comment on above: Performed By: #### T GEE ALONZO, BMPX #### [facility] [address] [place] [address] [place] [address] Slot Floor Supervisor: Luis Carlos Del Castillo MD #### GLYHGB #### [address] [id number] Slot Floor Supervisor: Marshall Paulino MD CO2 [Moles/Vol] 25 mmol/L Normal 20-31 [facility] Comment on above: Performed By: #### GEE ESPAÑA, BMPX #### [facility] [address] [place] [address] [place] [address] Slot Floor Supervisor: Luis Carlos Del Castillo MD #### GLYHGB #### [address] [id number] Slot Floor Supervisor: Marshall Paulino MD Creatinine [Mass/Vol] 0.70 mg/dL Normal 0.70-1.20 [facility] Comment on above: Performed By: #### T GEE ALONZO, BMPX #### [facility] [address] [place] [address] [place] [address] Slot Floor Supervisor: Luis Carlos Del Castillo MD #### GLYHGB #### [address] [id number] Slot Floor Supervisor: Marshall Paulino MD GFR/1.73 sq M.predicted among non-blacks MDRD (S/P/Bld) [Vol rate/Area] mL/min/{1.73_m2} Normal >60 [facility] Comment on above: Result Comment: These results [...] renal tubular secretion. Performed By: #### T CHERI CDP, BMPX #### [facility] [address] [place] [address] Slot Floor Supervisor: Luis Carlos Del Castillo MD #### GLYHGB #### [address] [id number] Slot Floor Supervisor: Marshall Paulino MD Glucose [Mass/Vol] 103 mg/dL High 70-99 [facility] Comment on above: Performed By: #### T GEE ALONZO, BMPX #### [facility] [address] [place] [address] Slot Floor Supervisor: Luis Carlos Del Castillo MD #### GLYHGB #### [address] [place], [place] [id number] Slot Floor Supervisor: Marshall Paulino MD Potassium [Moles/Vol] 4.3 mmol/L Normal 3.7-5.3 [facility] Comment on above: Performed By: #### T CHERI CDP, BMPX #### [facility] [address] [place] [address] Slot Floor Supervisor: Luis Carlos Del Castillo MD #### GLYHGB #### [address] [id number] Slot Floor Supervisor: Marshall Paulino MD Sodium [Moles/Vol] 140 mmol/L Normal 135-144 [facility] Comment on above: Performed By: #### T DARYNI, CDP, BMPX #### [facility] [address] [place] [address] Slot Floor Supervisor: Luis Carlos Del Castillo MD #### GLYHGB #### [facility] [address] [place] [address] Slot Floor Supervisor: Marshall Paulino MD Urea nitrogen [Mass/Vol] 27 mg/dL High 8- [facility] Comment on above: Performed By: #### T DARYNI, CDP, BMPX #### [facility] [address] [place] [address] Slot Floor Supervisor: Luis Carlos Del Castillo MD #### GLYHGB #### [facility] [address] [place] [address] Slot Floor Supervisor: Marshall Paulino MD Basic Metabolic Panel w/ Ref maria antonia to MGon 12-31-2022 Anion gap [Moles/Vol] 9 mmol/L 9 - 17 mmol/L [facility] Calcium [Mass/Vol] 9.5 mg/dL 8.6 - 10. 4 mg/dL [facility] Chloride [Moles/Vol] 106 mmol/L 98 - 10 7 mmol/L [facility] CO2 [Moles/Vol] 25 mmol/L 20 - 31 mmol/L [facility] Creatinine [Mass/Vol] 0.7 mg/dL 0.70 - 1.20 mg/dL [facility] GFR/1.73 sq M.predicted MDRD (S/P/Bld) [Vol rate/Area] - PINF [facility] Comment on above: These results are not [...] 103 mg/dL High 70 - 99 mg/dL [facility] Interpretation and review of laboratory results Abnormal [facility] Potassium [Moles/Vol] 4.3 mmol/L 3.7 - 5.3 mmol/L [facility] Sodium [Moles/Vol] 140 mmol/L 135 - 144 mmol/L [facility] Urea nitrogen [Mass/Vol] 27 mg/dL High 8 - 23 mg/dL [facility] Urea nitrogen/Creatinine (Bld) [Mass ratio] 39 High 9 - 20 [facility] CARDIAC STRESS TESTon 2022 CARDIAC STRESS TEST [address] [id number] CARDIAC STRESS TEST PATIENT NAME: NOEL ALVA : 1960 MED REC NO: [id number] ROOM: [facility] ACCOUNT NO: [id number] ADMIT DATE: 12/30/2022 PROVIDER: Fany Mohr MD [...] MIRIAN/BILLY_LUCIAN Doc#: Unknown CC: Romario Man Normal [facility] CBC with Auto Differentialon 12-31-2022 Absolute Eos # 0.18 TAMMS S [facility] Absolute Immature Granulocyte [facility] Absolute Lymph # 1.58 [facility] Absolute [place] # 0.72 [facility] Basophils (Bld) [#/Vol] 0.05 10*3/uL [facility] Interpretation and review of laboratory results Abnormal [facility] NRBC Automated 0.0 0.0 per 100 WBC [facility] Platelet distribution width (Bld) [Ratio] 13.9 % 11.8 - 14.4 % [facility] Segmented neutrophils/100 WBC (Bld) 62 % 36 - 65 % [facility] Segs Absolute 4.27 [facility] CBC with Diffon 12-31-2022 Abs. Basophil 0.05 k/uL Normal 0.00-0.20 [facility] Comment on above: Performed By: #### T GEE ALONZO, BMPX #### [address] [place] [id number] Slot Floor Supervisor: Luis Carlos Del Castillo MD #### GLYHGB #### [place] [phone] Slot Floor Supervisor: Marshall Paulino MD Abs.Imm.Granulocyte <0.03 Normal 0.00-0.30 [facility] Comment on above: Performed By: #### T CHERI CDP, BMPX #### [address] [place] [phone] Slot Floor Supervisor: Luis Carlos Del Castillo MD #### GLYHGB #### [place] [phone] Slot Floor Supervisor: Marshall Paulino MD Abs.Neutrophil (Seg) 4.27 k/uL Normal 1.50-8.10 [facility] Comment on above: Performed By: #### T ROPLiane, CDP, BMPX #### [address] [place] [phone] Slot Floor Supervisor: Luis Carlos Del Castillo MD #### GLYHGB #### [place] [id number] [place] [phone] Slot Floor Supervisor: Marshall Paulino MD Eosinophils (Bld) [#/Vol] 0.18 10*3/uL Normal 0.00-0.44 [facility] Comment on above: Performed By: #### T GEE ALONZO, BMPX #### [address] [place] [address] Slot Floor Supervisor: Luis Carlos Del Castillo MD #### GLYHGB #### [place] [address] Slot Floor Supervisor: Marshall Paulino MD Erythrocyte distribution width (RBC) [Ratio] 13.9 % Normal 11.8-14.4 [facility] Comment on above: Performed By: #### GEE ESPAÑA, BMPX #### [address] [place] [address] Slot Floor Supervisor: Luis Carlos Del Castillo MD #### GLYHGB #### [place] [address] Slot Floor Supervisor: Marshall Paulino MD Lymphocytes (Bld) [#/Vol] 1.58 10*3/uL Normal 1.10-3.70 [facility] Comment on above: Performed By: #### T CHERI CDP, BMPX #### [address] [place] [phone] ( Slot Floor Supervisor: Luis Carlos Del Castillo MD #### GLYHGB #### [place] [address] Slot Floor Supervisor: Marshall Paulino MD Monocytes (Bld) [#/Vol] 0.72 10*3/uL Normal 0.10-1.20 [facility] Comment on above: Performed By: #### T CHERI CDP, BMPX #### [facility] [place] [address] Slot Floor Supervisor: Luis Carlos Del Castillo MD #### GLYHGB #### [address] [phone] Slot Floor Supervisor: Marshall Paulino MD Neutrophil (Seg) 62 % Normal 36-65 [facility] Comment on above: Performed By: #### T ROPI, CDP, BMPX #### [address] [place] [phone] Slot Floor Supervisor: Luis Carlos Del Castillo MD #### GLYHGB #### [address] [phone] Slot Floor Supervisor: Marshall Paulino MD NRBC Automated 0.0 per 100 WBC Normal 0.0 [facility] Comment on above: Performed By: #### T CHERI, CDP, BMPX #### [address] [place] [phone] Slot Floor Supervisor: Luis Carlos Del Castillo MD #### GLYHGB #### [address] [phone] Slot Floor Supervisor: Marshall Paulino MD Basophils/100 WBC (Bld) 1 % Normal 0-2 [facility] Comment on above: Performed By: #### T CHERI, CDP, BMPX #### [address] [place] [phone] Slot Floor Supervisor: Luis Carlos Del Castillo MD #### GLYHGB #### [address] [phone] Slot Floor Supervisor: Marshall Paulino MD Eosinophils/100 WBC (Bld) 3 % Normal 1-4 [facility] Comment on above: Performed By: #### T ROPLiane, CDP, BMPX #### [address] [place] [address] Slot Floor Supervisor: Luis Carlos Del Castillo MD #### GLYHGB #### [address] [phone] Slot Floor Supervisor: Marshall Paulino MD Hematocrit (Bld) [Volume fraction] 40.4 % Low 40.7-50.3 [facility] Comment on above: Performed By: #### T CHERI CDP, BMPX #### [address] [place] [phone] Slot Floor Supervisor: Luis Carlos Del Castillo MD #### GLYHGB #### [address] [phone] Slot Floor Supervisor: Marshall Paulino MD Hemoglobin (Bld) [Mass/Vol] 13.5 g/dL Normal 13.0-17.0 [facility] Comment on above: Performed By: #### T GEE ALONZO, BMPX #### [address] [place] [phone] Slot Floor Supervisor: Luis Carlos Del Castillo MD #### GLYHGB #### [place] [address] Slot Floor Supervisor: Marshall Paulino MD Immature granulocytes/100 WBC (Bld) 0 % Normal 0 [facility] Comment on above: Performed By: #### T GEE ALONZO, BMPX #### [address] [place] [phone] Slot Floor Supervisor: Luis Carlos Del Castillo MD #### GLYHGB #### [address] [phone] Slot Floor Supervisor: Marshall Paulino MD Lymphocytes/100 WBC (Bld) 23 % Low 24-43 [facility] Comment on above: Performed By: #### T CHERI CDP, BMPX #### [address] [place] [address] Slot Floor Supervisor: Luis Carlos Del Castillo MD #### GLYHGB #### [place] 045862 [place], [place] [phone] Slot Floor Supervisor: Marshall Paulino MD MCH (RBC) [Entitic mass] 31.2 pg Normal 25.2-33.5 [facility] Comment on above: Performed By: #### T GEE ALONZO, BMPX #### [address] [place] [phone] Slot Floor Supervisor: Luis Carlos Del Castillo MD #### GLYHGB #### [place] [phone] Slot Floor Supervisor: Marshall Paulino MD MCHC (RBC) [Mass/Vol] 33.4 g/dL Normal 28.4-34.8 [facility] Comment on above: Performed By: #### GEE ESPAÑA, BMPX #### [address] [place] [phone] Slot Floor Supervisor: Luis Carlos Del Castillo MD #### GLYHGB #### [place] [address] Slot Floor Supervisor: Marshall Paulino MD MCV (RBC) [Entitic vol] 93.3 fL Normal 82.6-102.9 [facility] Comment on above: Performed By: #### T GEE ALONZO, BMPX #### [address] [place] [phone] Slot Floor Supervisor: Luis Carlos Del Castillo MD #### GLYHGB #### [place] [phone] Slot Floor Supervisor: Marshall Paluino MD Monocytes/100 WBC (Bld) 11 % Normal 3-12 [facility] Comment on above: Performed By: #### T GEE ALONZO, BMPX #### [address] [place] [phone] Slot Floor Supervisor: Luis Carlos Del Castillo MD #### GLYHGB #### [place] [phone] Slot Floor Supervisor: Marshall Paulino MD Platelet mean volume (Bld) [Entitic vol] 10.1 fL Normal 8.1-13.5 [facility] Comment on above: Performed By: #### T GEE ALONZO, BMPX #### [address] [place] [phone] Slot Floor Supervisor: Luis Carlos Del Castillo MD #### GLYHGB #### [place] [address] Slot Floor Supervisor: Marshall Paulino MD Platelets (Bld) [#/Vol] 190 10*3/uL Normal 138-453 [facility] Comment on above: Performed By: #### GEE ESPAÑA, BMPX #### [address] [place] [phone] Slot Floor Supervisor: Luis Carlos Del Castillo MD #### GLYHGB #### [place] [address] Slot Floor Supervisor: Marshall Paulino MD RBC (Bld) [#/Vol] 4.33 10*6/uL Normal 4.21-5.77 [facility] Comment on above: Performed By: #### GEE ESPAÑA, BMPX #### [address] [place] [address] Slot Floor Supervisor: Luis Carlos Del Castillo MD #### GLYHGB #### [place] [address] Slot Floor Supervisor: Marshall Paulino MD WBC (Bld) [#/Vol] 6.8 10*3/uL Normal 3.5-11.3 [facility] Comment on above: Performed By: #### GEE ESPAÑA, BMPX #### [facility] [address] [place] [address] Slot Floor Supervisor: Luis Carlos Del Castillo MD #### GLYHGB #### [employer] [address] [place], [place] [phone] Slot Floor Supervisor: Marshall Paulino MD EKG 12 leadon 12-31-2022 Atrial Rate 51 BPM [employer] [employer] Work Phone: P [place] 51 degrees [employer] Work Phone: P-R Interval 144 ms [employer] Work Phone: Q-T Interval 490 ms [employer] Work Phone: QRS Duration 72 ms [employer] Work Phone: QTc Calculation (Bazett) 451 ms [employer] Work Phone: R [place] 47 degrees [employer] Work Phone: T [place] 91 degrees [employer] Work Phone: Ventricular Rate 51 BPM [facility] [employer] Work Phone: Sinus bradycardia T wave abnormality, consider lateral ischemia Abnormal ECG When compared with ECG of 30-DEC-2022 06:16, Inverted T waves have replaced nonspecific T wave abnormality in Anterior leads QT has lengthened Confirmed by Fany Mohr MD ([id number]) on 12/31/2022 1:07:24 PM [facility] Fany Mohr MD - 12/31/2022 Sinus bradycardia T wave abnormality, consider lateral ischemia Abnormal ECG When compared with ECG of 30-DEC-2022 06:16, Inverted T waves have replaced nonspecific T wave abnormality in Anterior leads QT has lengthened Confirmed by Fany Mohr MD ([id number]) on 12/31/2022 1:07:24 PM [employer] Work Phone: [employer] Work Phone: EKG Rhythm Stripon 3 [facility] LAB [facility] Lipid Panelon 12-31-2022 Cholesterol [Mass/Vol] 103 mg/dL NINF - 200 mg/dL [facility] Comment on above: Cholesterol Guidelines: <200 Desirable 200-240 Borderline >240 Undesirable Cholesterol in HDL [Mass/Vol] 44 mg/dL 40 - PINF mg/dL [facility] Comment on above: HDL Guidelines: <40 Undesirable 40-59 Borderline >59 Desirable Cholesterol in LDL [Mass/Vol] 46 mg/dL 0 - 130 mg/dL [facility] Comment on above: LDL Guidelines: <100 Desirable 100-129 Near to/above Desirable 130-159 Borderline >159 Undesirable Direct (measured) LDL and calculated LDL are not interchangeable tests. Cholesterol.total/Ch olesterol in HDL [Mass ratio] 2.3 {ratio} NINF - 5 [facility] Triglyceride [Mass/Vol] 67 mg/dL NINF - 150 mg/dL [facility] Comment on above: Triglyceride Guidelines: <150 Desirable 150-199 Borderline 200-499 High >499 Very high Based on AHA Guidelines for fasting triglyceride, July 2012. [facility] Lipid Profileon 12-31-2022 Cholesterol [Mass/Vol] 103 mg/dL Normal <200 [facility] Comment on above: Result Comment: Cholesterol Guidelines: <200 Desirable 200-240 Borderline >240 Undesirable Performed By: #### L IPR #### [facility] [address] [place], [place] [phone] Slot Floor Supervisor: Marshall Paulino MD Cholesterol in HDL [Mass/Vol] 44 mg/dL Normal >40 [facility] Comment on above: Result Comment: HDL Guidelines: <40 Undesirable 40-59 Borderline >59 Desirable Performed By: #### L IPR #### [facility] [address] [place], [place] [id number] Slot Floor Supervisor: Marshall Paulino MD Cholesterol in LDL [Mass/Vol] 46 mg/dL Normal 0-130 [facility] Comment on above: Result Comment: LDL Guidelines: <100 Desirable 100-129 Near to/above Desirable 130-159 Borderline >159 Undesirable Direct (measured) LDL and calculated LDL are not interchangeable tests. Performed By: #### L IPR #### [facility] [place] [address] Slot Floor Supervisor: Marshall Paulino MD Cholesterol.total/Ch olesterol in HDL [Mass ratio] 2.3 {ratio} Normal <5 [facility] Comment on above: Performed By: #### L IPR #### [facility] [employer] [address] [place] [address] Slot Floor Supervisor: Marshall Paulino MD Triglyceride [Mass/Vol] 67 mg/dL Normal <150 [facility] Comment on above: Result Comment: Triglyceride Guidelines: <150 Desirable 150-199 Borderline 200-499 High >499 Very high Based on AHA Guidelines for fasting triglyceride, July 2012. Performed By: #### L IPR #### [facility] [employer] [address] [place] [address] Slot Floor Supervisor: Marshall Paulino MD Resp Viral Panelon 3 Adenovirus Not detected Normal [facility] Comment on above: Performed By: #### L IPR #### [facility] [address] [place] [address] Slot Floor Supervisor: MD Elizabeth Martindet.parapertussis Not detected Normal [facility] Comment on above: Performed By: #### L IPR #### [employer] [facility] [place] [address] Slot Floor Supervisor: Marshall Paulino MD Bordetella pertussis Not detected Normal [facility] Comment on above: Performed By: #### L IPR #### [employer] [address] [place] [address] Slot Floor Supervisor: Marshall Paulino MD Chlamyd.pneumoniae Not detected Normal [facility] Comment on above: Performed By: #### L IPR #### [facility] [employer] [facility] [place] [address] Slot Floor Supervisor: Marshall Paulino MD Coronavirus 229E Not detected [facility] Comment on above: Performed By: #### L IPR #### [facility] [employer] [address] [place] [address] Slot Floor Supervisor: Marshall Paulino MD Coronavirus HKU1 Not detected [facility] Comment on above: Performed By: #### L IPR #### [facility] [employer] [address] [place] [address] Slot Floor Supervisor: Marshall Paulino MD Coronavirus NL63 Not detected [facility] Comment on above: Performed By: #### L IPR #### [address] [address] Slot Floor Supervisor: Marshall Paulino MD Coronavirus OC43 Not detected [facility] Comment on above: Performed By: #### L IPR #### [address] [address] Slot Floor Supervisor: Marshall Paulino MD Human Metapneumo Not detected [facility] Comment on above: Performed By: #### L IPR #### [address] [address] Slot Floor Supervisor: Marshall Paulino MD Influenza A Not detected [facility] Comment on above: Performed By: #### L IPR #### [facility] [employer] [address] [place] [address] Slot Floor Supervisor: Marshall Paulino MD Influenza B Not detected [facility] Comment on above: Performed By: #### L IPR #### [facility] [employer] [address] [place] [address] Slot Floor Supervisor: Marshall Paulino MD Mycoplas.pneumoniae Not detected [facility] Comment on above: Result Comment: Perf ormed by multiplexed nucleic acid assay. Performed By: #### L IPR #### [address] [address] Slot Floor Supervisor: Marshall Paulino MD Parainfluenza 1 Not detected [facility] Comment on above: Performed By: #### L IPR #### [address] [address] Slot Floor Supervisor: Marshall Paulino MD Parainfluenza 2 Not detected [facility] Comment on above: Performed By: #### L IPR #### [address] [address] Slot Floor Supervisor: Marshall Paulino MD Parainfluenza 3 Not detected [facility] Comment on above: Performed By: #### L IPR #### [address] [address] Slot Floor Supervisor: Marshall Paulino MD Parainfluenza 4 Not detected [facility] Comment on above: Performed By: #### L IPR #### [address] [address] Slot Floor Supervisor: Marshall Paulino MD Resp Syncytial Virus Not detected Normal [facility] Comment on above: Performed By: #### L IPR #### [address] [address] Slot Floor Supervisor: Marshall Paulino MD Rhino/Enterovirus Not detected [facility] Comment on above: Performed By: #### L IPR #### [address] [address] Slot Floor Supervisor: Marshall Paulino MD SARS-CoV-2 (COVID-19) RNA DAHLIA+probe Ql (Unsp spec) Not detected Normal [facility] Comment on above: Performed By: #### L IPR #### [facility] [employer] [address] [place] [address] Slot Floor Supervisor: Marshall Paulino MD Respiratory Panel, Molecular , with COVID-19 (Restricted: peds pts or suitable admitted adults)on 12-31-2022 Adenovirus PCR Not detected Not Detected [facility] B. parapertussis [id number] DNA DAHLIA+non-probe Ql (Nph) Not detected Not Detected [facility] B. pertussis DNA DAHLIA+probe Ql (Unsp spec) Not detected Not Detected [facility] Chlamydia pneumoniae By PCR Not detected Not Detected [facility] Coronavirus 229E PCR Not detected Not Detected [facility] Coronavirus HKU1 PCR Not detected Not Detected [facility] Coronavirus NL63 PCR Not detected Not Detected [facility] Coronavirus OC43 PCR Not detected Not Detected [facility] FLUAV RNA DAHLIA+non-probe Ql (Nph) Not detected Not Detected [facility] FLUBV RNA DAHLIA+non-probe Ql (Nph) Not detected Not Detected [facility] Human Metapneumovirus PCR Not detected Not Detected [facility] Mycoplasma pneumo by PCR Not detected Not Detected [facility] Comment on above: Performed by multipl exed nucleic acid assay. Parainfluenza 1 PCR Not detected Not Detected [facility] Parainfluenza 2 PCR Not detected Not Detected [facility] Parainfluenza 3 PCR Not detected Not Detected [facility] Parainfluenza 4 PCR Not detected Not Detected [facility] Resp Syncytial Virus PCR Not detected Not Detected [facility] Rhino/Enterovirus PCR Not detected Not Detected [facility] SARS-CoV-2 (COVID-19) RNA DAHLIA+non-probe Ql (Nph) Not detected Not Detected [facility] Specimen Description .NASOPHARYNGEAL SWAB [facility] Troponinon 12-31-2022 Troponin, High Sens 18 ng/L Normal 0-22 [facility] Comment on above: Result Comment: High Sensitivity Troponin values cannot be compared with other Troponin methodologies. Performed By: #### T DARYNI, CDP, BMPX #### [facility] [address] [place] [address] Slot Floor Supervisor: Luis Carlos Del Castillo MD #### GLYHGB #### [facility] [address] [place] [address] Slot Floor Supervisor: Marshall Paulino MD Troponin I.cardiac DL <= 0.01 ng/mL [Mass/Vol] 18 ng/L 0 - 22 ng/L [facility] Comment on above: High Sensitivity Tro ponin values cannot be compared with other Troponin methodologies. [facility] Brain Natri. Peptideon 12-30 Natriuretic peptide B (Bld) [Mass/Vol] 308 pg/mL High <300 [facility] Comment on above: Result Comment: An age-independent cutoff point of 300 pg/ml has a 98% negative predictive value excluding acute heart failure. Performed By: #### B [employer] #### [facility] [address] [place] [address] [place] [address] Slot Floor Supervisor: Luis Carlos Del Castillo MD Brain Natriuretic Peptideon 12-30-2022 Interpretation and review of laboratory results Abnormal [facility] Natriuretic peptide B (Bld) [Mass/Vol] 308 pg/mL High NINF - 300 pg/mL [facility] Comment on above: An age-independent cutoff point of 300 pg/ml has a 98% negative predictive value excluding acute heart failure. [facility] CBC with Auto Differentialon 12-30-2022 Absolute Eos # 0.07 TAMMS S [facility] Absolute Immature Granulocyte 0.04 [facility] Absolute Lymph # 1.83 [facility] Absolute [place] # 0.91 [facility] RS [facility] Basophils (Bld) [#/Vol] 0.06 10*3/uL [facility] Basophils/100 WBC (Bld) 1 % 0 - 2 % [facility] Eosinophils/100 WBC (Bld) 1 % 1 - 4 % [facility] Hematocrit (Bld) [Volume fraction] 39.6 % Low 40.7 - 50.3 % [facility] Hemoglobin (Bld) [Mass/Vol] 13.8 g/dL 13.0 - 17.0 g/dL [facility] Immature granulocytes/100 WBC (Bld) 0 % 0 [facility] Interpretation and review of laboratory results Abnormal [facility] Lymphocytes/100 WBC (Bld) 18 % Low 24 - 43 % [facility] MCH (RBC) [Entitic mass] 31.8 pg 25.2 - 33.5 pg [facility] MCHC (RBC) [Mass/Vol] 34.8 g/dL 28.4 - 34.8 g/dL [facility] MCV (RBC) [Entitic vol] 91.2 fL 82.6 - 102.9 fL [facility] Monocytes/100 WBC (Bld) 9 % 3 - 12 % [facility] NRBC Automated 0.0 0.0 per 100 WBC [facility] Platelet distribution width (Bld) [Ratio] 13.5 % 11.8 - 14.4 % [facility] Platelet mean volume (Bld) [Entitic vol] 9.9 fL 8.1 - 13.5 fL [facility] Platelets (Bld) [#/Vol] 189 10*3/uL [facility] RBC (Bld) [#/Vol] 4.34 10*6/uL 4.21 - 5.77 m/uL [facility] Segmented neutrophils/100 WBC (Bld) 71 % High 36 - 65 % [facility] Segs Absolute 7.15 [facility] WBC (Bld) [#/Vol] 10.1 10*3/uL [facility] CBC with Diffon 12-30-2022 Abs. Basophil 0.06 k/uL Normal 0.00-0.20 [facility] Comment on above: Performed By: #### T NATHAN ALONZO, CDP #### [facility] [address] [place] [address] Slot Floor Supervisor: Luis Carlos Del Castillo MD Abs.Imm.Granulocyte 0.04 k/uL Normal 0.00-0.30 [facility] Comment on above: Performed By: #### Ileana ALONZO CP, CDP #### [address] [place], [place] [address] Slot Floor Supervisor: Luis Carlos Del Castillo MD Abs.Neutrophil (Seg) 7.15 k/uL Normal 1.50-8.10 [facility] Comment on above: Performed By: #### Ileana ALONZO CP, CDP #### [address] [place], [place] [address] Slot Floor Supervisor: Luis Carlos Del Castillo MD Basophils/100 WBC (Bld) 1 % Normal 0-2 [facility] Comment on above: Performed By: #### Ileana ALONZO CP, CDP #### [address] [place] [address] Slot Floor Supervisor: Luis Carlos Del Castillo MD Eosinophils (Bld) [#/Vol] 0.07 10*3/uL Normal 0.00-0.44 [facility] Comment on above: Performed By: #### Ileana ALONZO CP, CDP #### [address] [place], [place] [address] Slot Floor Supervisor: Luis Carlos Del Castillo MD Eosinophils/100 WBC (Bld) 1 % Normal 1-4 [facility] Comment on above: Performed By: #### Ileana ALONZO CP, CDP #### [address] [place], [place] [address] Slot Floor Supervisor: Luis Carlos Del Castillo MD Erythrocyte distribution width (RBC) [Ratio] 13.5 % Normal 11.8-14.4 [facility] Comment on above: Performed By: #### Ileana ALONZO CP, CDP #### [address] [place], [facility] Slot Floor Supervisor: Luis Carlos Del Castillo MD Hematocrit (Bld) [Volume fraction] 39.6 % Low 40.7-50.3 [facility] Comment on above: Performed By: #### Ileana ALONZO CP, CDP #### [facility] [address] [place], [facility] Slot Floor Supervisor: Luis Carlos Del Castillo MD Hemoglobin (Bld) [Mass/Vol] 13.8 g/dL Normal 13.0-17.0 [facility] Comment on above: Performed By: #### Ileana ALONZO CP, CDP #### [address] [place], [place] [address] Slot Floor Supervisor: Luis Carlos Del Castillo MD Immature granulocytes/100 WBC (Bld) 0 % Normal 0 [facility] Comment on above: Performed By: #### Ileana ALONZO CP, CDP #### [address] [place], [place] [address] Slot Floor Supervisor: Luis Carlos Del Castillo MD Lymphocytes (Bld) [#/Vol] 1.83 10*3/uL Normal 1.10-3.70 [facility] Comment on above: Performed By: #### Ileana ALONZO CP, CDP #### [address] [place], [place] [address] Slot Floor Supervisor: Luis Carlos Del Castillo MD Lymphocytes/100 WBC (Bld) 18 % Low 24-43 [facility] Comment on above: Performed By: #### Ileana ALONZO CP, CDP #### [address] [place], [facility] Slot Floor Supervisor: Luis Carlos Del Castillo MD MCH (RBC) [Entitic mass] 31.8 pg Normal 25.2-33.5 [facility] Comment on above: Performed By: #### Ileana ALONZO CP, CDP #### [address] [place], [facility] Slot Floor Supervisor: Luis Carlos Del Castillo MD MCHC (RBC) [Mass/Vol] 34.8 g/dL Normal 28.4-34.8 [facility] Comment on above: Performed By: #### Ileana ALONZO CP, CDP #### [facility] [address] [place], [place] [id number] Slot Floor Supervisor: Luis Carlos Del Castillo MD MCV (RBC) [Entitic vol] 91.2 fL Normal 82.6-102.9 [facility] Comment on above: Performed By: #### Ileana ALONZO CP, CDP #### [facility] [address] [place], [place] 7100583 Slot Floor Supervisor: Luis Carlos Del Castillo MD Monocytes (Bld) [#/Vol] 0.91 10*3/uL Normal 0.10-1.20 [facility] Comment on above: Performed By: #### Ileana ALONZO CP, CDP #### [address] [place], [place] [id number] Slot Floor Supervisor: Luis Carlos Del Castillo MD Monocytes/100 WBC (Bld) 9 % Normal 3-12 [facility] Comment on above: Performed By: #### Ileana ALONZO CP, CDP #### [address] [place], [facility] Slot Floor Supervisor: Luis Carlos Del Castillo MD Neutrophil (Seg) 71 % High 36-65 [facility] Comment on above: Performed By: #### Ileana ALONZO CP, CDP #### [address] [place], [place] [id number] Slot Floor Supervisor: Luis Carlos Del Castillo MD NRBC Automated 0.0 per 100 WBC Normal 0.0 [facility] Comment on above: Performed By: #### Ileana ALONZO CP, CDP #### [facility] [address] [place], [place] [id number] Slot Floor Supervisor: Luis Carlos Del Castillo MD Platelet mean volume (Bld) [Entitic vol] 9.9 fL Normal 8.1-13.5 [facility] Comment on above: Performed By: #### Ileana ALONZO CP, CDP #### [address] [place] [id number] Slot Floor Supervisor: Luis Carlos Del Castillo MD Platelets (Bld) [#/Vol] 189 10*3/uL Normal 138-453 [facility] Comment on above: Performed By: #### T NATHAN ALONZO, CDP #### [facility] [address] [place] [id number] Slot Floor Supervisor: Luis Carlos Del Castillo MD RBC (Bld) [#/Vol] 4.34 10*6/uL Normal 4.21-5.77 [facility] Comment on above: Performed By: #### Ileana ALONZO CP, CDP #### [facility] [address] [place], [place] [id number] Slot Floor Supervisor: Luis Carlos Del Castillo MD WBC (Bld) [#/Vol] 10.1 10*3/uL Normal 3.5-11.3 [facility] Comment on above: Performed By: #### Ileana ALONZO CP, CDP #### [facility] [address] [place], [place] [id number] Slot Floor Supervisor: Luis Carlos Del Castillo MD COVID-19, Rapidon 12-30-2022 SARS-CoV-2 (COVID-19) RdRp gene DAHLIA+probe Ql (Resp) Not detected Not Detected [facility] Comment on above: Rapid NAAT: The specimen [...] management decisions. Fact sheet for Healthcare Providers: https://www.fda.gov/media/808907/download Fact sheet for Patients: https://www.fda.gov/media/041350/download Methodology: Isothermal Nucleic Acid Amplification Specimen Description .NASOPHARYNGEAL SWAB [facility] CHEST PULMONARY EMBOLISM W [...] Dov Love MD 12/30/22 Final result Normal [facility] Negative for acute pulmonary embolus Right-sided aortic arch Bilateral patchy pulmonary infiltrates which are predominantly peripheral which may be related atypical infectious etiology. Large hiatal hernia and wall thickening in the distal esophagus. An esophagram or endoscopy may be helpful for further evaluation if clinically indicated. [facility] RIS CONSOLIDATED EXAMINATION: CTA OF THE CHEST [...] No acute bone or soft tissue abnormality. [facility] RIS CONSOLIDATED Dov Love MD - 12/30/2022 [...] helpful for further evaluation if clinically indicated. [facility] Work Phone: Radiology Study observation (narrative) [facility] [employer] Phone: CT CHEST PULMONARY EMBOLISM W CONTRASTOrdered By: Dov Love on 12-30-2022 [facility] Work Phone: Comp Metabolic Profon 2022 Albumin [Mass/Vol] 3.9 g/dL Normal 3.5-5.2 [facility] Comment on above: Performed By: #### Ileana ALONZO CP, CDP #### [facility] [address] [place], [place] [id number] Slot Floor Supervisor: Luis Carlos Del Castillo MD Albumin/Glob Ratio 1.3 Normal 1.0-2.5 [facility] Comment on above: Performed By: #### Ileana ALONZO CP, CDP #### [facility] [address] [place] [address] Slot Floor Supervisor: Luis Carlos Del Castillo MD Alkaline Phos 102 U/L Normal 40-129 [facility] Comment on above: Performed By: #### Ilaena ALONZO CP, CDP #### [facility] [address] [place] [address] Slot Floor Supervisor: Luis Carlos Del Castillo MD ALT [Catalytic activity/Vol] 19 U/L Normal 5-41 [facility] Comment on above: Performed By: #### Ileana ALONZO CP, CDP #### [facility] [address] [place] [address] Slot Floor Supervisor: Luis Carlos Del Castillo MD Anion gap [Moles/Vol] 10 mmol/L Normal 9-17 [facility] Comment on above: Performed By: #### Ileana ALONZO CP, CDP #### [facility] [address] [place] [address] Slot Floor Supervisor: Luis Carlos Del Castillo MD AST [Catalytic activity/Vol] 16 U/L Normal <40 [facility] Comment on above: Performed By: #### T NATHAN ALONZO, CDP #### [facility] [address] [place], [place] 8232083 Slot Floor Supervisor: Luis Carlos Del Castillo MD Bilirubin [Mass/Vol] 0.8 mg/dL Normal 0.3-1.2 [facility] Comment on above: Performed By: #### Ileana ALONZO CP, CDP #### [facility] [address] [place], [place] [id number] Slot Floor Supervisor: Luis Carlos Del Castillo MD BUN/CRE Ratio 25 High 9-20 [facility] Comment on above: Performed By: #### Ileana ALONZO CP, CDP #### [facility] [address] [place], [place] 8185383 Slot Floor Supervisor: Luis Carlos Del Castillo MD Calcium [Mass/Vol] 9.5 mg/dL Normal 8.6-10.4 [facility] Comment on above: Performed By: #### T NATHAN ALONZO, CDP #### [facility] [address] [place], [place] 3956683 Slot Floor Supervisor: Luis Carlos Del Castillo MD Chloride [Moles/Vol] 105 mmol/L Normal 98-107 [facility] Comment on above: Performed By: #### Ileana ALONZO CP, CDP #### [facility] [address] [place] [address] Slot Floor Supervisor: Luis Carlos Del Castillo MD CO2 [Moles/Vol] 24 mmol/L Normal 20-31 [facility] Comment on above: Performed By: #### Ileana ALONZO CP, CDP #### [facility] [address] [place] [address] Slot Floor Supervisor: Luis Carlos Del Castillo MD Creatinine [Mass/Vol] 0.63 mg/dL Low 0.70-1.20 [facility] Comment on above: Performed By: #### T NATHAN ALONZO, CDP #### [facility] [address] [place] [address] Slot Floor Supervisor: Luis Carlos Del Castillo MD GFR/1.73 sq M.predicted among non-blacks MDRD (S/P/Bld) [Vol rate/Area] mL/min/{1.73_m2} Normal >60 [facility] Comment on above: Result Comment: These results [...] renal tubular secretion. Performed By: #### T NATHAN ALONZO, CDP #### [facility] [address] [place] [address] Dr. [place], [place] [id number] Slot Floor Supervisor: Luis Carlos Del Castillo MD Glucose [Mass/Vol] 113 mg/dL High 70-99 [facility] Comment on above: Performed By: #### Ileana ALONZO CP CDP #### [facility] [address] [place] [address] Dr. [place], [place] [id number] Slot Floor Supervisor: Luis Carlos Del Castillo MD Potassium [Moles/Vol] 3.9 mmol/L Normal 3.7-5.3 [facility] Comment on above: Performed By: #### Ileana ALONZO CP, CDP #### [facility] [address] [place] [address] Slot Floor Supervisor: Luis Carlos Del Castillo MD Protein [Mass/Vol] 7.0 g/dL Normal 6.4-8.3 [facility] Comment on above: Performed By: #### Ileana ALONZO CP, CDP #### [facility] [address] [place] [address] Slot Floor Supervisor: Luis Carlos Del Castillo MD Sodium [Moles/Vol] 139 mmol/L Normal 135-144 [facility] Comment on above: Performed By: #### T NATHAN ALONZO, CDP #### [facility] [address] [place] [address] Slot Floor Supervisor: Luis Carlos Del Castillo MD Urea nitrogen [Mass/Vol] 16 mg/dL Normal 8-23 [facility] Comment on above: Performed By: #### T NATHAN ALONZO, CDP #### [facility] [address] [place] [address] Slot Floor Supervisor: Luis Carlos Del Castillo MD Comprehensive Metabolic Pane [facility] 12-30-2022 Albumin [Mass/Vol] 3.9 g/dL 3.5 - 5.2 g/dL [facility] Albumin/Globulin [Mass ratio] 1.3 {ratio} 1.0 - 2.5 [facility] ALP [Catalytic activity/Vol] 102 U/L 40 - 129 U/L [facility] ALT [Catalytic activity/Vol] 19 U/L 5 - 41 U/L [facility] Anion gap [Moles/Vol] 10 mmol/L 9 - 17 mmol/L [facility] AST [Catalytic activity/Vol] 16 U/L NINF - 40 U/L [facility] Bilirubin [Mass/Vol] 0.8 mg/dL 0.3 - 1 .2 mg/dL [facility] Calcium [Mass/Vol] 9.5 mg/dL 8.6 - 10. 4 mg/dL [facility] Chloride [Moles/Vol] 105 mmol/L 98 - 10 7 mmol/L [facility] CO2 [Moles/Vol] 24 mmol/L 20 - 31 mmol/L [facility] Creatinine [Mass/Vol] 0.63 mg/dL Low 0.70 - 1.20 mg/dL [facility] GFR/1.73 sq M.predicted MDRD (S/P/Bld) [Vol rate/Area] - PINF [facility] Comment on above: These results are not [...] 113 mg/dL High 70 - 99 mg/dL [facility] Interpretation and review of laboratory results Abnormal [facility] Potassium [Moles/Vol] 3.9 mmol/L 3.7 - 5.3 mmol/L [facility] Protein [Mass/Vol] 7.0 g/dL 6.4 - 8.3 g/dL [facility] Sodium [Moles/Vol] 139 mmol/L 135 - 144 mmol/L [facility] Urea nitrogen [Mass/Vol] 16 mg/dL 8 - 23 mg/dL [facility] Urea nitrogen/Creatinine (Bld) [Mass ratio] 25 High 9 - 20 [facility] 12 [place] 12-30-2022 Atrial Rate 51 BPM [facility] Work Phone: P [place] 39 degrees [facility] Work Phone: P-R Interval 146 ms [facility] Work Phone: Q-T Interval 424 ms [facility] Work Phone: QRS Duration 72 ms [facility] Work Phone: QTc Calculation (Bazett) 390 ms [facility] Work Phone: R [place] 56 degrees [facility] Work Phone: T [place] 73 degrees [facility] Work Phone: Ventricular Rate 51 BPM [employer] Work Phone: Poor data qualit y, interpretation may be adversely affected Sinus bradycardia Nonspecific ST and T wave abnormality Abnormal ECG Confirmed by Onur DRUMMOND, Fany ([id number]) on 12/30/2022 8:21:48 AM [facility] Fany Mohr MD - 12/30/2022 Poor data quality, interpretation may be adversely affected Sinus bradycardia Nonspecific ST and T wave abnormality Abnormal ECG Confirmed by Fany Mohr MD ([id number]) on 12/30/2022 8:21:48 AM [facility] Work Phone: [facility] [employer] Work Phone: EKG Rhythm Stripon 3 [facility] Echocardiogram complete 2D w ith doppler with coloron 12-30-2022 Left ventricular Ejection fraction 55 [facility] [employer] Work Phone: LVEF MODALITY ECHO [facility] Work Phone: [facility] Transthoracic Echocardiography Report (TTE) Patient Name ALVA Date of Study 12/30/2022 NOEL Vaca Date of 1960 Gender Male Age 62 year(s) Race Room Number 0327 Height: 66 inch, 167.64 cm Corporate ID [id number] Weight: 160 pounds, 72.6 kg # Patient Acct [id number] BSA: 1.82 m^2 BMI: 25.82 kg/m^2 # MR # [id number] Inspector Insulation Noman Keke Interpreting Physician Fany Mohr Fellow Referring Nurse Cece Villalobos, Practitioner [employer] Interpreting Referring Physician Fellow Type of Study TTE procedure:2D Echocardiogram, M-Mode, Doppler, Color Doppler. Procedure Date Date: 12/30/2022 Start: 02:20 PM Study Location: [facility] Indications:Chest pain. History / Tech. Comments: Dx: [...] MD / Result, Unknown Provider - 12/30/2022 [facility] Transthoracic Echocardiography Report (TTE) Patient Name ALVA Date of Study 12/30/2022 NOEL Vaca Date of 1960 Gender Male Age 62 year(s) Race Room Number 0327 Height: 66 inch, 167.64 cm Corporate ID [id number] Weight: 160 pounds, 72.6 kg # Patient Acct [id number] BSA: 1.82 m^2 BMI: 25.82 kg/m^2 # MR # [id number] Inspector Insulation Keke Tineo Interpreting Physician Fany Mohr Fellow Referring Nurse Cece Villalobos, Practitioner [employer] Interpreting Referring Physician Fellow Type of Study TTE procedure:2D Echocardiogram, M-Mode, Doppler, Color Doppler. Procedure Date Date: 12/30/2022 Start: 02:20 PM Study Location: [facility] Indications:Chest pain. History / Tech. Comments: Dx: [...] Wall E' velocity:0.12 m/s Lateral Wall E/E':6.28 [facility] Work Phone: [facility] Work Phone: Resp Viral Panelon 3 Source: .NASOPHARYNGEAL SWAB Normal [facility] Comment on above: Performed By: #### L IPR #### [facility] [address] [place] [address] [id number] Slot Floor Supervisor: Marshall Paulino MD [id number] 12-30-2022 SARS-CoV-2 (COVID-19) RNA DAHLIA+probe Ql (Unsp spec) Not detected Normal NOTDET [facility] Comment on above: Result Comment: Rapid [...] management decisions. Fact sheet for Healthcare Providers: https://www.fda.gov/media/947654/download Fact sheet for Patients: https://www.fda.gov/media/359950/download Methodology: Isothermal Nucleic Acid Amplification Performed By: #### L IPR #### [facility] [address] [place], [place] 5392408 Slot Floor Supervisor: Marshall Paulino MD Troponinon 12-30-2022 Troponin, High Sens 17 ng/L Normal 0-22 [facility] Comment on above: Result Comment: High Sensitivity Troponin values cannot be compared with other Troponin methodologies. Performed By: #### L IPR #### [facility] [place], [place] 4737608 Slot Floor Supervisor: Marshall Paulino MD Troponin, High Sens 19 ng/L Normal 0-22 [facility] Comment on above: Result Comment: High Sensitivity Troponin values cannot be compared with other Troponin methodologies. Performed By: #### T NATHAN ALONZO, CDP #### [facility] [address] [place] [address] Slot Floor Supervisor: Luis Carlos Del Castillo MD Troponin I.cardiac DL <= 0.01 ng/mL [Mass/Vol] 17 ng/L 0 - 22 ng/L [facility] Comment on above: High Sensitivity Tro ponin values cannot be compared with other Troponin methodologies. [facility] Troponin I.cardiac DL <= 0.01 ng/mL [Mass/Vol] 19 ng/L 0 - 22 ng/L [facility] Comment on above: High Sensitivity Tro ponin values cannot be compared with other Troponin methodologies. [facility] XR CHEST PORTABLEon 12-31-19 XR CHEST PORTABLE [...] Sherrill Parmar MD 12/30/22 Final result Normal [facility] There is a new left midlung opacity [...] to resolution to exclude an underlying lesion. [facility] Phone: Radiology Study observation (narrative) [facility] Phone: XR CHEST PORTABLEOrdered By: Sherrill Parmar on 12-30-2022 [facility] Phone: XR LSPINE MIN 4 VIEWSon 12-04 [...] PEDRO PABLO CHAMBERS Date: 2022-12-18 13:59 Normal [facility] MRI LSPINE WO CONon 11-06-19 [...] PABLO CHAMBERS Date: 2022-11-06 15:08 Normal [facility] TESTOSTERONE, TOTALon 2021 Testosterone [Mass/Vol] 279 ng/dL Normal 264-916 [facility] Comment on above: Result Comment: Adul t male reference interval is based on a population of healthy nonobese males (BMI <30) between 19 and 39 years old. Vinnie, et.al. JCEM 2017,102;[id number]. PMID: [id number]. Performed By: #### H GBHCT #### [facility] [address] [place] [address] Dr. Raimundo Estrada CBC AUTO DIFFon 09-11-2022 BASO # 0.1 103/ul Normal 0.0-0.1 [facility] Comment on above: Performed By: #### H GBHCT #### [facility] [address] [place] [address] [address] Raimundo Estrada Basophils/100 WBC (Bld) 0.6 % Normal 0.2-2.0 [facility] Comment on above: Performed By: #### H GBHCT #### [facility] [address] [place] [address] Dr. Raimundo Estrada EO # 0.2 103/ul Normal 0.0-0.7 [facility] Comment on above: Performed By: #### H GBHCT #### [facility] [address] [place] [address] Dr. Raimundo Estrada Eosinophils/100 WBC (Bld) 2.4 % Normal 0.9-7.0 [facility] Comment on above: Performed By: #### H GBHCT #### [facility] [address] [place] [address] Dr. Raimundo Estrada Erythrocyte distribution width (RBC) [Ratio] 14.1 % Normal 11.0-15.0 [facility] Comment on above: Performed By: #### H GBHCT #### [facility] [address] [place] [address] Dr. Raimundo Estrada Hematocrit (Bld) [Volume fraction] 40.2 % Critically low 42.0-54.0 [facility] Comment on above: Performed By: #### H GBHCT #### [facility] [address] [place] [address] Dr. Raimundo Estrada Hemoglobin (Bld) [Mass/Vol] 13.4 g/dL Critically low 14.0-18.0 [facility] Comment on above: Performed By: #### H GBHCT #### [facility] [address] [place] [address] Dr. Raimundo Estrada IG # 0.03 10e3/ul Normal 0.00-0.03 [facility] Comment on above: Performed By: #### H GBHCT #### [facility] [address] [place] [address] Dr. Raimundo Estrada IG % 0.4 % Normal 0.0-0.5 [facility] Comment on above: Performed By: #### H GBHCT #### [facility] [address] [place] [address] [address] Raimundo Estrada LYMPH # 1.7 103/ul Normal 1.2-3.8 [facility] Comment on above: Performed By: #### H GBHCT #### [facility] [address] [place] [address] [address] Raimundo Estrada Lymphocytes/100 WBC (Bld) 20.8 % Normal 20.5-60.0 [facility] Comment on above: Performed By: #### H GBHCT #### [facility] [address] [address] [address] Raimundo Estrada MANUAL DIFF REQ NO Normal [facility] Comment on above: Performed By: #### H GBHCT #### [facility] [address] [address] [address] Raimundo Estrada MCH (RBC) [Entitic mass] 31.8 pg Normal 25.9-34.0 [facility] Comment on above: Performed By: #### H GBHCT #### [facility] [address] [address] [address] Raimundo Estrada MCHC (RBC) [Mass/Vol] 33.3 g/dL Normal 29.9-35.2 [facility] Comment on above: Performed By: #### H GBHCT #### [facility] [address] [address] [address] Raimundo Estrada MCV (RBC) [Entitic vol] 95.3 fL Critically high 80.0-94.0 [facility] Comment on above: Performed By: #### H GBHCT #### [facility] [address] [address] [address] Raimundo Estrada MONO # 0.8 103/ul Normal 0.3-0.8 [facility] Comment on above: Performed By: #### H GBHCT #### [facility] [address] [address] [address] Raimundo Estrada Monocytes/100 WBC (Bld) 9.7 % Normal 1.7-12.0 [facility] Comment on above: Performed By: #### H GBHCT #### [facility] [address] [address] [address] Raimundo Estrada NEUT # 5.2 103/ul Normal 1.4-6.5 [facility] Comment on above: Performed By: #### H GBHCT #### [facility] [address] [address] [address] Raimundo Estrada Neutrophils/100 WBC (Bld) 66.1 % Normal 43.0-75.0 [facility] Comment on above: Performed By: #### H GBHCT #### [facility] [address] [place] [address] Dr. Raimundo Estrada Platelet mean volume (Bld) [Entitic vol] 10.1 fL Normal 9.5-13.5 [facility] Comment on above: Performed By: #### H GBHCT #### [facility] [address] [place] [address] Dr. Raimundo Estrada PLT 189 103/ul Normal 150-450 [facility] Comment on above: Performed By: #### H GBHCT #### [facility] [address] [place] [address] Dr. Raimundo Estrada RBC 4.22 106/ul Critically low 4.70-6.10 [facility] Comment on above: Performed By: #### H GBHCT #### [facility] [address] [place] [address] Dr. Raimundo Estrada WBC 7.9 103/ul Normal 4.0-11.0 [facility] Comment on above: Performed By: #### H GBHCT #### [facility] [address] [place] [address] Dr. Raimundo Estrada FREE T3on 09-11-2022 FREE T3 2.85 pg/mlL Normal 2.18-3.98 [facility] Comment on above: Performed By: #### T SH, FT3, LIVER, BMP, LIPID #### [facility] [address] [place] [address] Dr. Raimundo Estrada FREE T4on 09-11-2022 Free T4 [Mass/Vol] 0.85 ng/dL Normal 0.76-1.46 [facility] Comment on above: Performed By: #### H GBHCT #### [facility] [address] [address] [address] Raimundo Estrada GLYCOHEMOGLOBIN A1Con 2021 ADA RECOMMENDATION SEE BELOW Normal [facility] Comment on above: Result Comment: ADA RECOMMENDED LIMIT 4.0 - 6.0 ADA THERAPEUTIC TARGET < 7.0 ACTION SUGGESTED > 7.0 Performed By: #### H GBHCT #### [facility] [address] [address] [address] Raimundo Estrada Glucose [Mass/Vol] 111 mg/dL Normal [facility] Comment on above: Performed By: #### H GBHCT #### [facility] [address] [address] [address] Raimundo Estrada HbA1c (Bld) [Mass fraction] 5.5 % Normal 4.5-6.2 [facility] Comment on above: Performed By: #### H GBHCT #### [facility] [address] [address] [address] Raimundo Estrada LIPID PROFILEon 09-11-2022 CHOL-HDL RATIO NORM SEE BELOW Normal [facility] Comment on above: Result Comment: 3.3 - 4.4 LOW RISK 4.4 - 7.1 AVERAGE RISK 7.1 - 11.0 MODERATE RISK >11.0 HIGH RISK Performed By: #### T SH, FT3, LIVER, BMP, LIPID #### [facility] [address] [address] [address] Raimundo Estrada Cholesterol [Mass/Vol] 129 mg/dL Normal <=200 [facility] Comment on above: Performed By: #### T SH, FT3, LIVER, BMP, LIPID #### [facility] [address] [address] [address] Raimundo Estrada Cholesterol in HDL [Mass/Vol] 62 mg/dL Critically high 40-60 [facility] Comment on above: Performed By: #### T SH, FT3, LIVER, BMP, LIPID #### [facility] [address] [address] [address] Raimundo Estrada Cholesterol in LDL [Mass/Vol] 53.4 mg/dL Normal [facility] Comment on above: Performed By: #### T SH, FT3, LIVER, BMP, LIPID #### [facility] [address] [address] [address] Raimundo Estrada Cholesterol.total/Ch olesterol in HDL [Mass ratio] 2.1 {ratio} Normal [facility] Comment on above: Performed By: #### T SH, FT3, LIVER, BMP, LIPID #### [facility] [address] [address] [address] Raimundo Estrada HDL NORMAL > or = 60 mg/dl - LO W CARDIOVASCULAR RISK <40 mg/dl - HIGH CARDIOVASCULAR RISK Normal [facility] Comment on above: Performed By: #### T SH, FT3, LIVER, BMP, LIPID #### [facility] [address] [address] [address] Raimundo Estrada LDL CALC NORMAL SEE BELOW Normal [facility] Comment on above: Result Comment: <100 mg/dl OPTIMAL 100 - 129 mg/dl NEAR OR ABOVE OPTIMAL 130 - 159 mg/dl BORDERLINE HIGH 160 - 189 mg/dl HIGH >190 mg/dl VERY HIGH Performed By: #### T SH, FT3, LIVER, BMP, LIPID #### [facility] [address] [address] [address] Raimundo Estrada Triglyceride [Mass/Vol] 68 mg/dL Normal <=150 [facility] Comment on above: Performed By: #### T SH, FT3, LIVER, BMP, LIPID #### [facility] [address] [address] [address] Raimundo Estrada VLDL CALC 13.6 mg/dL Normal [facility] Comment on above: Performed By: #### T SH, FT3, LIVER, BMP, LIPID #### [facility] [address] [address] [address] Raimundo Estrada LIVER PROFILEon 09-11-2022 Albumin [Mass/Vol] 3.8 g/dL Normal 3.4-5.0 [facility] Comment on above: Performed By: #### T SH, FT3, LIVER, BMP, LIPID #### [facility] [address] [place] [address] Dr. Raimundo Estrada Albumin/Globulin [Mass ratio] 1.0 {ratio} Normal [facility] Comment on above: Performed By: #### T SH, FT3, LIVER, BMP, LIPID #### [facility] [address] [place] [address] Dr. Raimundo Estrada ALP [Catalytic activity/Vol] 103 U/L Normal 46-116 [facility] Comment on above: Performed By: #### T SH, FT3, LIVER, BMP, LIPID #### [facility] [address] [place] [address] Dr. Raimundo Estrada ALT [Catalytic activity/Vol] 46 U/L Normal 16-63 [facility] Comment on above: Performed By: #### T SH, FT3, LIVER, BMP, LIPID #### [facility] [address] [place] [address] Dr. Raimundo Estrada AST [Catalytic activity/Vol] 35 U/L Normal 15-37 [facility] Comment on above: Performed By: #### T SH, FT3, LIVER, BMP, LIPID #### [facility] [address] [place] [address] Dr. Raimundo Estrada BILI, CONJUGATED 0.2 mg/dL Normal 0.0-0.2 [facility] Comment on above: Performed By: #### T SH, FT3, LIVER, BMP, LIPID #### [facility] [address] [place] [address] Dr. Raimundo Estrada Bilirubin [Mass/Vol] 0.7 mg/dL Normal 0.2-1.0 [facility] Comment on above: Performed By: #### T SH, FT3, LIVER, BMP, LIPID #### [facility] [address] [place] [address] Dr. Raimundo Estrada Globulin (S) [Mass/Vol] 3.8 g/dL Normal [facility] Comment on above: Performed By: #### T SH, FT3, LIVER, BMP, LIPID #### [facility] [address] [place] [address] Dr. Raimundo Estrada Protein [Mass/Vol] 7.6 g/dL Normal 6.4-8.2 [facility] Comment on above: Performed By: #### T SH, FT3, LIVER, BMP, LIPID #### [facility] [address] [place] [address] Dr. Raimundo Estrada PROF CHEM 8 (BAS METB)on Anion gap [Moles/Vol] 13.9 mmol/L Normal [facility] Comment on above: Performed By: #### T SH, FT3, LIVER, BMP, LIPID #### [facility] [address] [place] [address] Dr. Raimundo Estrada Calcium [Mass/Vol] 9.3 mg/dL Normal 8.5-10.1 [facility] Comment on above: Performed By: #### T SH, FT3, LIVER, BMP, LIPID #### [facility] [address] [place] [address] Dr. Raimundo Estrada Chloride [Moles/Vol] 104 mmol/L Normal 98-107 [facility] Comment on above: Performed By: #### T SH, FT3, LIVER, BMP, LIPID #### [facility] [address] [place] [address] Dr. Raimundo Estrada CO2 [Moles/Vol] 28.6 mmol/L Normal 21.0-32.0 [facility] Comment on above: Performed By: #### T SH, FT3, LIVER, BMP, LIPID #### [facility] [address] [place] [address] Dr. Raimundo Estrada Creatinine [Mass/Vol] 0.77 mg/dL Normal 0.70-1.30 [facility] Comment on above: Performed By: #### T SH, FT3, LIVER, BMP, LIPID #### [facility] [address] [place] [address] Dr. Raimundo Estrada EGFR-AF CYMRO >60 Normal >=60 [facility] Comment on above: Performed By: #### T SH, FT3, LIVER, BMP, LIPID #### [facility] [address] [address] [address] Raimundo Estrada EGFR-NON AF CYMRO >60 Normal >=60 [facility] Comment on above: Performed By: #### T SH, FT3, LIVER, BMP, LIPID #### [facility] [address] [address] [address] Raimundo Estrada Glucose [Mass/Vol] 90 mg/dL Normal 74-106 [facility] Comment on above: Performed By: #### T SH, FT3, LIVER, BMP, LIPID #### [facility] [address] [address] [address] Raimundo Estrada Potassium [Moles/Vol] 4.5 mmol/L Normal 3.5-5.1 [facility] Comment on above: Performed By: #### T SH, FT3, LIVER, BMP, LIPID #### [facility] [address] [address] [address] Raimundo Estrada Sodium [Moles/Vol] 142 mmol/L Normal 136-145 [facility] Comment on above: Performed By: #### T SH, FT3, LIVER, BMP, LIPID #### [facility] [address] [address] [address] Raimundo Estrada Urea nitrogen [Mass/Vol] 22.0 mg/dL Critically high 7.0-18.0 [facility] Comment on above: Performed By: #### T SH, FT3, LIVER, BMP, LIPID #### [facility] [address] [address] [address] Raimundo Estrada Urea nitrogen/Creatinine [Mass ratio] 28.6 mg/mg Normal [facility] Comment on above: Performed By: #### T SH, FT3, LIVER, BMP, LIPID #### [facility] [address] [place] [address] Dr. Raimundo Estrada TSHon 09-11-2022 TSH 1.375 uIU/mL Normal 0.358-3.74 0 [facility] Comment on above: Performed By: #### T SH, FT3, LIVER, BMP, LIPID #### [facility] [address], [place] [address] Dr. Raimundo Estrada VITAMIN B12on 09-11-2022 Cobalamin (Vitamin B12) [Mass/Vol] 635.0 pg/mL Normal 193.0-986. 0 [facility] Comment on above: Performed By: #### L IPID #### [facility] [address], [place] [address] Dr. Raimundo Estrada General Surgery Office/Clini c [...] History Ongoing Asthma BMI 25.0-25.9,adult CAD in [place] artery DDD (degenerative disc disease), lumbar Depression [...] Tab, 25 mg= 1 tab(s), Oral, BID Catawba 5/325 Tab, 1 tab(s), Oral, BID Protonix [...] Coronary artery disease: Mother and Father. Normal [facility] Comment on above: Result Comment: Elec [...] sigmoid polyp that was not retrieved. Normal [facility] Pathology Noteon 06-28-2022 Pathology Note [id number]#[id number]:127 Normal [facility] Outside Colonoscopyon 2021 Outside Colonoscopy [id number]#1.00CD:127 Normal [facility] HEMOGLOBIN AND HEMATOCRITon 06-26-2022 Hematocrit (Bld) [Volume fraction] 44.2 % Normal 42.0-54.0 [facility] Comment on above: Performed By: #### H GBHCT #### [facility] [id number] Raimundo Estrada Hemoglobin (Bld) [Mass/Vol] 15.0 g/dL Normal 14.0-18.0 [facility] Comment on above: Performed By: #### H GBHCT #### [facility] [id number] Raimundo Estrada Lab Reportson 06-24-2022 Lab Reports [id number]#[id number]:127 Normal [facility] Covid-19 PCR (CVDTB)on 06-06 SARS-CoV-2 (COVID-19) RNA DAHLIA+probe Ql (Unsp spec) Not detected Normal NOT DETECTED [facility] Comment on above: Result Comment: This test is not yet approved or cleared by the [place] FDA. When there are no FDA-approved or cleared tests available, and other criteria are met, FDA can make tests available under an emergency access mechanism called an Emergency Use Authorization (EUA). The EUA for this test is supported by the [employer] of Health and Human Service's (HHS's) declaration [...] consistent with SARS-CoV-2. Performed By: #### H GBHCT #### [facility] [address] [place] [address] [address] Raimundo Estrada Consent for Procedure/Surger yon 06-03-2022 Consent for Procedure/Surgery [id number]#1.00CD:127 [facility] Pre-Certification Formon Pre-Certification Form [id number]#[id number]:127 [facility] Ambulatory Visit Summaryon 0 05-31-2022 Ambulatory Visit Summary NOEL ALVA :1960 Visit Date:05/31/2022 Ambulatory Visit Instructions Your Diagnosis Epigastric pain Hematemesis Your Care Team Attending Physician - EMILY DRUMMOND, Julian Davis Primary Care Physician - MAGDA DRUMMOND, ROMARIO Referring Physician - MAGDA DRUMMOND, ROMARIO This Is Your Medications List pantoprazole (Protonix 40 mg Tab-DR) Contact prescribing physician if questions or concerns acetaminophen-hydrocodone ([place]ba 5/325 Tab) albuterol (albuterol HFA 90 mcg/inh [...] Epigastric pain Hematemesis Refills: 3 Pickup at [facility] 7589 Unchanged acetaminophen-hydrocodone ([place] 5/ 325 Tab) 1 Tablets By Mouth [...] physician if questions or concerns Pharmacy Information [facility]: [address] [facility] [address] [place] [address] [phone] Allergies No Known Allergies No Known Medication Allergies Problems Ongoing - Any problem that you are currently receiving treatment for. Asthma BMI 25.0-25.9,adult CAD in [place] artery DDD (degenerative disc disease), lumbar Depression Epigastric pain Gouty arthritis Hematemesis Iron deficiency anemia Vitamin D deficiency Normal [facility] Lab Reportson 05-30-2022 Lab Reports [id number]#1.00CD:127 Normal [facility] Lab Reportson 05-23-2022 Lab Reports [id number]#1.00CD:127 Normal [facility] Lab Reports [id number]#1.00CD:127 Normal [facility] Physician Referralon 022 Physician Referral [id number]#1.00CD:127 Normal [facility] CBC AUTO DIFFon 04-03-2022 BASO # 0.0 103/ul Normal 0.0-0.1 [facility] Comment on above: Performed By: #### C BC #### [facility] [address] [place] [address] Dr. Raimundo Estrada Basophils/100 WBC (Bld) 0.3 % Normal 0.2-2.0 [facility] Comment on above: Performed By: #### C BC #### [facility] [address] [place] [address] Dr. Raimundo Estrada EO # 0.1 103/ul Normal 0.0-0.7 [facility] Comment on above: Performed By: #### C BC #### [facility] [address] [place] [address] Dr. Raimundo Estrada Eosinophils/100 WBC (Bld) 0.7 % Critically low 0.9-7.0 [facility] Comment on above: Performed By: #### C BC #### [facility] [address] [place] [address] Dr. Raimundo Estrada Erythrocyte distribution width (RBC) [Ratio] 14.4 % Normal 11.0-15.0 [facility] Comment on above: Performed By: #### C BC #### [facility] [address] [place] [address] Dr. Raimundo Estrada Hematocrit (Bld) [Volume fraction] 38.2 % Critically low 42.0-54.0 [facility] Comment on above: Performed By: #### C BC #### [facility] [address] [place] [address] Dr. Raimundo Estrada Hemoglobin (Bld) [Mass/Vol] 12.8 g/dL Critically low 14.0-18.0 [facility] Comment on above: Performed By: #### C BC #### [facility] [address] [place] [address] Dr. Raimundo Estrada IG # 0.04 10e3/ul Critically high 0.00-0.03 [facility] Comment on above: Performed By: #### C BC #### [facility] [address] [place] [address] Dr. Raimundo Estrada IG % 0.3 % Normal 0.0-0.5 [facility] Comment on above: Performed By: #### C BC #### [facility] [address] [place] [address] Dr. Raimundo Estrada LYMPH # 1.1 103/ul Critically low 1.2-3.8 [facility] Comment on above: Performed By: #### C BC #### [facility] [address] [place] [address] Dr. Raimundo Estrada Lymphocytes/100 WBC (Bld) 9.4 % Critically low 20.5-60.0 [facility] Comment on above: Performed By: #### C BC #### [facility] [address] [place] [address] Dr. Raimundo Estrada MANUAL DIFF REQ NO Normal [facility] Comment on above: Performed By: #### C BC #### [facility] [address] [place] [address] Dr. Raimundo Estrada MCH (RBC) [Entitic mass] 30.7 pg Normal 25.9-34.0 [facility] Comment on above: Performed By: #### C BC #### [facility] [address] [place] [address] Dr. Raimundo Estrada MCHC (RBC) [Mass/Vol] 33.5 g/dL Normal 29.9-35.2 [facility] Comment on above: Performed By: #### C BC #### [facility] [address] [place] [address] Dr. Raimundo Estrada MCV (RBC) [Entitic vol] 91.6 fL Normal 80.0-94.0 [facility] Comment on above: Performed By: #### C BC #### [facility] [address] [place] [address] Dr. Raimundo Estrada MONO # 0.7 103/ul Normal 0.3-0.8 [facility] Comment on above: Performed By: #### C BC #### [facility] [address] [address] [address] Raimundo Estrada Monocytes/100 WBC (Bld) 5.8 % Normal 1.7-12.0 [facility] Comment on above: Performed By: #### C BC #### [facility] [address] [address] [address] Raimundo Estrada NEUT # 9.6 103/ul Critically high 1.4-6.5 [facility] Comment on above: Performed By: #### C BC #### [facility] [address] [place] [address] Dr. Raimundo Estrada Neutrophils/100 WBC (Bld) 83.5 % Critically high 43.0-75.0 [facility] Comment on above: Performed By: #### C BC #### [facility] [address] [place] [address] Dr. Raimundo Estrada Platelet mean volume (Bld) [Entitic vol] 9.3 fL Critically low 9.5-13.5 [facility] Comment on above: Performed By: #### C BC #### [facility] [address] [place] [address] Dr. Raimundo Estrada PLT 165 103/ul Normal 150-450 [facility] Comment on above: Performed By: #### C BC #### [facility] [address] [address] [address] Raimundo Estrada RBC 4.17 106/ul Critically low 4.70-6.10 [facility] Comment on above: Performed By: #### C BC #### [facility] [id number] Raimundo Estrada WBC 11.6 103/ul Critically high 4.0-11.0 [facility] Comment on above: Performed By: #### C BC #### [facility] [address] [place] [address] Dr. Raimundo Estrada IRONon 04-03-2022 Iron [Mass/Vol] 63.0 ug/dL Critically low 65.0-175.0 [facility] Comment on above: Performed By: #### I HUBERT #### [facility] [address] [place] [address] Dr. Raimundo Estrada PROTIMEon 04-03-2022 INR Coag (PPP) [Relative time] 0.98 {INR} Normal [facility] Comment on above: Performed By: #### H GBHCT #### [facility] [address] [place] [address] Dr. Raimundo Estrada INR GUIDELINES SEE BELOW Normal [facility] Comment on above: Result Comment: KEIRA RED INR: 2.0 - 3.0 CONDITIONS NOT LISTED BELOW 2.5 - 3.5 FOR PROSTHETIC HEART VALVE REPLACEMENT 2.5 - 3.5 RECURRENT THROMBOSIS Performed By: #### H GBHCT #### [facility] [address] [place] [address] Dr. Raimundo Estrada PT Coag (PPP) [Time] 10.6 s Normal 9.0-11.6 [facility] Comment on above: Performed By: #### H GBHCT #### [facility] [address] [place] [address] Dr. Raimundo Estrada PTTon 04-03-2022 aPTT Coag (Bld) [Time] 26.2 s Normal 22.3-36.2 [facility] Comment on above: Performed By: #### H GBHCT #### [facility] [address] [place] [address] Dr. Raimundo Estrada Sedimentation Rateon 022 Sed Rate 10 [facility] LIPID PROFILEon 03-12-2022 CHOL-HDL RATIO NORM SEE BELOW Normal [facility] Comment on above: Result Comment: 3.3 - 4.4 LOW RISK 4.4 - 7.1 AVERAGE RISK 7.1 - 11.0 MODERATE RISK >11.0 HIGH RISK Performed By: #### L IPID #### [facility] [address] [place] [address] Dr. Raimundo Estrada Cholesterol [Mass/Vol] 126 mg/dL Normal <=200 [facility] Comment on above: Performed By: #### L IPID #### [facility] [address] [address] [address] Raimundo Estrada Cholesterol in HDL [Mass/Vol] 68 mg/dL Critically high 40-60 [facility] Comment on above: Performed By: #### L IPID #### [facility] [address] [address] [address] Raimundo Estrada Cholesterol in LDL [Mass/Vol] 52.0 mg/dL Normal [facility] Comment on above: Performed By: #### L IPID #### [facility] [address] [address] [address] Raimundo Estrada Cholesterol.total/Ch olesterol in HDL [Mass ratio] 1.9 {ratio} Normal [facility] Comment on above: Performed By: #### L IPID #### [facility] [address] [place] [address] Dr. Raimundo Estrada HDL NORMAL > or = 60 mg/dl - LO W CARDIOVASCULAR RISK <40 mg/dl - HIGH CARDIOVASCULAR RISK Normal [facility] Comment on above: Performed By: #### L IPID #### [facility] [address] [address] [address] Raimundo Estrada LDL CALC NORMAL SEE BELOW Normal [facility] Comment on above: Result Comment: <100 mg/dl OPTIMAL 100 - 129 mg/dl NEAR OR ABOVE OPTIMAL 130 - 159 mg/dl BORDERLINE HIGH 160 - 189 mg/dl HIGH >190 mg/dl VERY HIGH Performed By: #### L IPID #### [facility] [address] [address] [address] Raimundo Estrada Triglyceride [Mass/Vol] 30 mg/dL Normal <=150 [facility] Comment on above: Performed By: #### L IPID #### [facility] [address] [address] [address] Raimundo Estrada VLDL CALC 6.0 mg/dL Normal [facility] Comment on above: Performed By: #### L IPID #### [facility] [address] [address] [address] Raimundo Estrada CBC Auto DifferentialOrdered By: Julian Dougherty on 03-09-2021 Absolute Eos # <0.03 [employer] [facility] Work Phone: Absolute Immature Granulocyte 0.04 [employer] Work Phone: Absolute Lymph # 1.49 [employer] Work Phone: Absolute [place] # 1.27 High [employer] Work Phone: Basophils (Bld) [#/Vol] 0.03 10*3/uL [employer] Work Phone: Basophils/100 WBC (Bld) 0 % 0 - 2 % [employer] Phone: Differential Type NOT REPORTED [employer] Phone: Eosinophils/100 WBC (Bld) 0 % Low 1 - 4 % [employer] Phone: Hematocrit (Bld) [Volume fraction] 41.8 % 40.7 - 50.3 % [employer] Phone: Hemoglobin.gastroint estinal spec 1 Ql (Stl) 14.3 g/dL 13.0 - 17.0 g/dL [employer] Phone: Immature granulocytes/100 WBC (Bld) 0 % 0 [employer] Phone: Interpretation and review of laboratory results Abnormal [employer] Phone: Lymphocytes/100 WBC (Bld) 14 % Low 24 - 43 % [employer] Phone: MCH (RBC) [Entitic mass] 30.6 pg 25.2 - 33.5 pg [employer] Phone: MCHC (RBC) [Mass/Vol] 34.2 g/dL 28.4 - 34.8 g/dL [employer] Phone: MCV (RBC) [Entitic vol] 89.5 fL 82.6 - 102.9 fL [employer] Work Phone: Monocytes/100 WBC (Bld) 12 % 3 - 12 % [employer] Work Phone: NRBC Automated 0.0 0.0 per 100 WBC [employer] Phone: Platelet distribution width (Bld) [Ratio] 13.2 % 11.8 - 14.4 % [employer] Phone: Platelet Estimate NOT REPORTED [employer] Phone: Platelet mean volume (Bld) [Entitic vol] 10.3 fL 8.1 - 13.5 fL [employer] Phone: Platelets (Bld) [#/Vol] 169 10*3/uL [employer] Phone: RBC (Bld) [#/Vol] 4.67 10*6/uL 4.21 - 5.77 m/uL [employer] Phone: RBC (Bld) [#/Vol] NOT REPORTED [employer] Phone: Segmented neutrophils/100 WBC (Bld) 74 % High 36 - 65 % [employer] Phone: Segs Absolute 7.59 [employer] Work Phone: WBC (Bld) [#/Vol] 10.4 10*3/uL [employer] Phone: WBC (Bld) [#/Vol] NOT REPORTED [employer] Phone: [employer] Work Phone: Sedimentation RateOrdered By : Julian Dougherty on 03-09-2021 Interpretation and review of laboratory results Abnormal [employer] Phone: Sed Rate 63 mm High 0 - 20 mm [employer] Phone: [employer] Work Phone: Uric AcidOrdered By: Julian Dougherty on 06-04-2021 Urate [Mass/Vol] 4.3 mg/dL 3.4 - 7.0 mg/dL [employer] Phone: [employer] Phone: XR WRIST RIGHT (MIN 3 VIEWS) Ordered By: Julian Dougherty on 03-09-2021 Arthritic changes an d mild soft tissue swelling without acute osseous abnormality. [employer] Phone: EXAMINATION: 3 XRAY VIEWS OF THE [...] No acute fracture, or dislocation is noted. [employer] Phone: Mauri, Mhpn Incoming R adiant Results From SWEEPiO - 03/09/2021 10:56 AM EDT EXAMINATION: 3 [...] soft tissue swelling without acute osseous abnormality. [employer] Phone: [employer] Phone: VL DUP CAROTID BILATERALon 1 10-17-2019 [facility] l Vascular Carotid Procedure Patient Name ALVA Date of Study 08/16/2020 NOEL Nola Date of 1960 Gender Male Age 59 year(s) Race Room Number Corporate ID # [id number] Patient MR # [id number] Inspector Insulation KEVON Tobar Interpreting Physician Mike Centeno MD Referring Yoselin Lisa Referring Physician Nurse Kymberly BUCKNER Practitioner Procedure [...] left side. - Additional Measurements:ICAPSV/CCAPSV 0.76.ICAEDV/CCAEDV 1.49. [facility] [place], [place] Mauri, Mhpn Incoming C ardio Results From Cpacs/Ge - 08/17/2020 9:[address] [facility] Vascular Carotid Procedure Patient Name ALVA Date of Study 08/16/2020 NOEL Vaca Date of 1960 Gender Male Age 59 year(s) Race Room Number Corporate ID # [id number] Patient MR # [id number] Inspector Insulation KEVON Tobar Interpreting Physician Mike Centeno MD [...] left side. - Additional Measurements:ICAPSV/CCAPSV 0.76.ICAEDV/CCAEDV 1.49. [employer] ([employer] CBC auto differentialon 07-06 Basophils (Bld) [#/Vol] 0.04 10*3/uL [employer] ([employer] Basophils/100 WBC (Bld) 0 % 0 - 2 % [place] Differential Type NOT REPORTED [facility] [place] Eosinophils (Bld) [#/Vol] 0.04 10*3/uL [place], [employer] ([employer] Eosinophils/100 WBC (Bld) 0 % Low 1 - 4 % [place] Erythrocyte distribution width (RBC) [Ratio] 13.9 % 11.8 - 14.4 % [place] Hematocrit (Bld) [Volume fraction] 42.7 % 40.7 - 50.3 % [place] Hemoglobin (Bld) [Mass/Vol] 14.3 g/dL 13 - 17 g/dL [place] Immature granulocytes (Bld) [#/Vol] 0.03 10*3/uL [place] Immature granulocytes (Bld) [#/Vol] 0 % 0 [place] Interpretation and review of laboratory results Abnormal [place] Lymphocytes (Bld) [#/Vol] 1.95 10*3/uL [place] Lymphocytes/100 WBC (Bld) 20 % Low 24 - 43 % [place] MCH (RBC) [Entitic mass] 31.2 pg 25.2 - 33.5 pg [place] MCHC (RBC) [Mass/Vol] 33.5 g/dL 28.4 - 34.8 g/dL [place] MCV (RBC) [Entitic vol] 93.0 fL 82.6 - 102.9 fL [place] Monocytes (Bld) [#/Vol] 0.96 10*3/uL [place] Monocytes/100 WBC (Bld) 10 % 3 - 12 % [place] Platelet mean volume (Bld) [Entitic vol] 10.2 fL 8.1 - 13.5 fL [place] Platelets (Bld) [#/Vol] NOT REPORTED [place] Platelets (Bld) [#/Vol] 189 10*3/uL [place] RBC (Bld) [#/Vol] 4.59 10*6/uL 4.21 - 5.77 m/uL [place] RBC morphology finding Nom (Bld) NOT REPORTED [place] Segmented neutrophils/100 WBC (Bld) 70 % High 36 - 65 % [place] Segs Absolute 7.00 [place] WBC (Bld) [#/Vol] 10.0 10*3/uL [place] WBC (Bld) [#/Vol] 0.0 10*3/uL 0.0 per 100 WBC [place] WBC Morphology NOT REPORTED [place] CT ABDOMEN PELVIS WO CONTRAS T [...] to suggest a definite acute inflammatory process. [place] EXAMINATION: CT OF [place] MOORE ABDOMEN AND PELVIS WITHOUT CONTRAST 07/18/2020 8:41 [...] and moderate canal stenosis. No pars defects. [facility] [place] Mauri, Mhpn Incoming R adiant Results From Ebook Gl[employer]/Pacs - 07/18/2020 9:12 AM EDT EXAMINATION: CT [...] to suggest a definite acute inflammatory process. [place] Comprehensive Metabolic Pane pat 07-18-2020 Albumin [Mass/Vol] 4.3 g/dL 3.5 - 5.2 g/dL [place] Albumin/Globulin [Mass ratio] 1.5 {ratio} [place] ALP [Catalytic activity/Vol] 71 U/L 40 - 129 U/L [place] ALT [Catalytic activity/Vol] 26 U/L 5 - 41 U/L [place] Anion gap [Moles/Vol] 13 mmol/L 9 - 17 mmol/L [place] AST [Catalytic activity/Vol] 26 U/L <40 [place] Bilirubin Ql (U) 1.44 mg/dL High 0.3 - 1.2 mg/dL [place] Bun/Cre Ratio 28 High [place] Calcium [Mass/Vol] 9.4 mg/dL 8.6 - 10. 4 mg/dL [place] Chloride [Moles/Vol] 103 mmol/L 98 - 10 7 mmol/L [place] CO2 [Moles/Vol] 23 mmol/L 20 - 31 mmol/L [place] Creatinine [Mass/Vol] 0.79 mg/dL 0.7 - 1.2 mg/dL [place] GFR >60 >60 mL/min [place] GFR Non- >60 >60 mL/min [place] Glucose [Mass/Vol] 93 mg/dL 70 - 99 mg/dL [place] Interpretation and review of laboratory results Abnormal [place] Potassium [Moles/Vol] 3.9 mmol/L 3.7 - 5.3 mmol/L [place] Protein [Mass/Vol] 7.1 g/dL 6.4 - 8.3 g/dL [place] Sodium [Moles/Vol] 139 mmol/L 135 - 144 mmol/L [place] Urea nitrogen [Mass/Vol] 22 mg/dL High 6 - 20 mg/dL [place] EKG 12 Leadon 07-18-2020 Atrial Rate 58 BPM [place] P [place] 45 degrees [place] P-R Interval 138 ms [place] Q-T Interval 478 ms [place] QRS Duration 74 ms [place] QTc Calculation (Bazett) 469 ms [place] R [place] 49 degrees [place] T [place] 129 degrees [place] Ventricular Rate 58 BPM [place] Sinus bradycardia T wave abnormality, consider lateral ischemia Prolonged QT Abnormal ECG When compared with ECG of 14-JUN-2019 10:26, Nonspecific T wave abnormality has replaced inverted T waves in Inferior leads T wave inversion less evident in Anterior leads Confirmed by JW KAY ([id number]) on 07/18/2020 11:37:03 AM [place] Mauri, Mhpn Incoming E kg Results From [employer] [place] - 07/18/2020 11:37 AM EDT Sinus bradycardia T wave abnormality, consider lateral ischemia Prolonged QT Abnormal ECG When compared with ECG of 14-JUN-2019 10:26, Nonspecific T wave abnormality has replaced inverted T waves in Inferior leads T wave inversion less evident in Anterior leads Confirmed by JW KAY ([id number]) on 07/18/2020 11:37:03 AM [place] Lipaseon 07-18-2020 Lipase [Catalytic activity/Vol] 30 U/L 13 - 60 U/L [place] Metabolic Panelon 07-18-2020 GFR/1.73 sq M predicted among non-blacks MDRD (S/P/Bld) [Vol rate/Area] [place] Comment on above: Stage 1: Some [...] body mass. Additional eGFR calculator available at: http://www.[employer]Made/multiple_crcl_2012.htm Microscopic Urinalysison Amorphous, UA NOT REPORTED None [place], [place] Bacteria, UA NOT REPORTED None [place] Casts UA NOT REPORTED /LPF [place] Crystals, UA NOT REPORTED None /HPF [place] Epithelial Cells UA 0 TO 2 [place] Mucus, UA NOT REPORTED None [place] Other Observations UA NOT REPORTED NOT REQ. [place] RBC (U) [#/Vol] None [place], [place] Renal Epithelial, UA NOT REPORTED 0 /HPF [place] Trichomonas, UA NOT REPORTED None [facility] [place] WBC, UA 0 TO 2 [place] Yeast, UA NOT REPORTED None [place] - [place] Troponinon 07-18-2020 Troponin I.cardiac [Mass/Vol] NOT REPORTED [place] Troponin T.cardiac [Mass/Vol] NOT REPORTED <0.03 ng/mL [place] Troponin, High Sensitivity 18 ng/L 0 - 22 ng/L [place] Comment on above: High Sensitivity Troponin values cannot be compared with other Troponin methodologies. Patients with high levels of Biotin oral intake (i.e >5mg/day) may have falsely decreased Troponin levels. Samples collected within 8 hours of biotin intake may require additional information for diagnosis. Troponin I.cardiac [Mass/Vol] NOT REPORTED [place] Troponin T.cardiac [Mass/Vol] NOT REPORTED <0.03 ng/mL [place] Troponin, High Sensitivity 21 ng/L 0 - 22 ng/L [place] Comment on above: High Sensitivity Troponin values cannot be compared with other Troponin methodologies. Patients with high levels of Biotin oral intake (i.e >5mg/day) may have falsely decreased Troponin levels. Samples collected within 8 hours of biotin intake may require additional information for diagnosis. Urinalysis Reflex to Culture on 07-18-2020 Bilirubin Urine Negative NEGATIVE [place], [place] Color, UA YELLOW YELLOW [place] Glucose, Ur Negative NEGATIVE [place] Interpretation and review of laboratory results Abnormal [place] Ketones Ql (U) 1+ Abnormal NEGATIVE [place] Leukocyte esterase Test strip Ql (U) Negative NEGATIVE [place] Nitrite, Urine Negative NEGATIVE [place] pH, UA 7.0 [place] Protein (U) [Mass/Vol] Negative NEGATIVE [place] Specific [place], UA 1.020 [place], [place] Turbidity UA CLEAR CLEAR [place] Urinalysis Comments NOT REPORTED [place] Urine Hgb Negative NEGATIVE [place] Urobilinogen, Urine Normal Normal [place] XR CHEST (SINGLE VIEW FRONTA L)on 07-18-2020 Mauri, Mhpn Incoming R adiant Results From [employer]/Pacs - 07/18/2020 8:54 AM EDT EXAMINATION: ONE XRAY VIEW OF THE CHEST 07/18/2020 8:44 am COMPARISON: June 14, 2019 HISTORY: ORDERING SYSTEM PROVIDED HISTORY: epig pain TECHNOLOGIST PROVIDED HISTORY: epig pain FINDINGS: Is no evidence of focal infiltrate, effusion, pneumothorax. Heart mediastinum appear normal. Visualized bony thorax shows no acute abnormality. IMPRESSION: No acute findings of the chest, stable when compared to previous. [place] EXAMINATION: ONE XRA Y VIEW OF THE CHEST 07/18/2020 8:44 am COMPARISON: June 14, 2019 HISTORY: ORDERING SYSTEM PROVIDED HISTORY: epig pain TECHNOLOGIST PROVIDED HISTORY: epig pain FINDINGS: Is no evidence of focal infiltrate, effusion, pneumothorax. Heart mediastinum appear normal. Visualized bony thorax shows no acute abnormality. [place] No acute findings of the chest, stable when compared to previous. [place] CBC Auto Differentialon 09-0 Basophils (Bld) [#/Vol] 0.05 10*3/uL [place] Basophils/100 WBC (Bld) 1 % 0 - 2 % [place] Differential Type NOT REPORTED [place] Eosinophils (Bld) [#/Vol] 10*3/uL [place] Eosinophils/100 WBC (Bld) 0 % Low 1 - 4 % [place] Erythrocyte distribution width (RBC) [Ratio] 12.9 % 11.8 - 14.4 % [place] Hematocrit (Bld) [Volume fraction] 45.7 % 40.7 - 50.3 % [place] Hemoglobin (Bld) [Mass/Vol] 15.5 g/dL 13 - 17 g/dL [place] Immature granulocytes (Bld) [#/Vol] 10*3/uL [place] Immature granulocytes (Bld) [#/Vol] 0 % 0 [place] Interpretation and review of laboratory results Abnormal [place] Lymphocytes (Bld) [#/Vol] 1.83 10*3/uL [place] Lymphocytes/100 WBC (Bld) 19 % Low 24 - 43 % [place] MCH (RBC) [Entitic mass] 31.1 pg 25.2 - 33.5 pg [place] MCHC (RBC) [Mass/Vol] 33.9 g/dL 28.4 - 34.8 g/dL [place] MCV (RBC) [Entitic vol] 91.6 fL 82.6 - 102.9 fL [place] Monocytes (Bld) [#/Vol] 0.86 10*3/uL [place] Monocytes/100 WBC (Bld) 9 % 3 - 12 % [place] Platelet mean volume (Bld) [Entitic vol] 9.7 fL 8.1 - 13.5 fL [place] Platelets (Bld) [#/Vol] 195 10*3/uL [place] Platelets (Bld) [#/Vol] NOT REPORTED [place] RBC (Bld) [#/Vol] 4.99 10*6/uL 4.21 - 5.77 m/uL [place] RBC morphology finding Nom (Bld) NOT REPORTED [place] Segmented neutrophils/100 WBC (Bld) 71 % High 36 - 65 % [place] Segs Absolute 7.08 [place] WBC (Bld) [#/Vol] 9.9 10*3/uL [place] WBC (Bld) [#/Vol] 0.0 10*3/uL 0.0 per 100 WBC [place] WBC Morphology NOT REPORTED [place] Comprehensive Metabolic Pane l w/ Reflex to MGon 06-14-2019 Albumin [Mass/Vol] 4.4 g/dL 3.5 - 5.2 g/dL [place] Albumin/Globulin [Mass ratio] 1.2 {ratio} [place] ALP [Catalytic activity/Vol] 77 U/L 40 - 129 U/L [place] ALT [Catalytic activity/Vol] 19 U/L 5 - 41 U/L [place] Anion gap [Moles/Vol] 15 mmol/L 9 - 17 mmol/L [place] AST [Catalytic activity/Vol] 22 U/L <40 [place] Bilirubin Ql (U) 0.61 mg/dL 0.3 - 1.2 mg/dL [place] Bun/Cre Ratio 23 High [place] Calcium [Mass/Vol] 10.0 mg/dL 8.6 - 10. 4 mg/dL [place] Chloride [Moles/Vol] 98 mmol/L 98 - 10 7 mmol/L [place] CO2 [Moles/Vol] 24 mmol/L 20 - 31 mmol/L [place] Creatinine [Mass/Vol] 0.82 mg/dL 0.7 - 1.2 mg/dL [place] GFR >60 >60 mL/min [place] GFR Non- >60 >60 mL/min [place] Glucose [Mass/Vol] 98 mg/dL 70 - 99 mg/dL [place] Interpretation and review of laboratory results Abnormal [place] Potassium [Moles/Vol] 4.0 mmol/L 3.7 - 5.3 mmol/L [place] Protein [Mass/Vol] 8.2 g/dL 6.4 - 8.3 g/dL [place] Sodium [Moles/Vol] 137 mmol/L 135 - 144 mmol/L [place] Urea nitrogen [Mass/Vol] 19 mg/dL 6 - 20 mg/dL [place] D-Dimer, Quantitativeon D-Dimer, Quant 0.42 [place] Comment on above: Elevated levels of [...] activity/Vol] 37 U/L 13 - 60 U/L [place] Metabolic Panelon 06-14-2019 GFR/1.73 sq M predicted among non-blacks MDRD (S/P/Bld) [Vol rate/Area] [place] Comment on above: Average GFR for 50-5 9 years old: 93 mL/min/1.73sq m Chronic Kidney Disease: <60 mL/min/1.73sq m Kidney failure: <15 mL/min/1.73sq m eGFR calculated using average adult body mass. Additional eGFR calculator available at: http://www.CloudMade/multiple_crcl_2012.htm Stage 1: Some kidney damage normal GFR Stage 2: Mild kidney damage GFR 60-89 Stage 3: Moderate kidney damage GFR 30-59 Stage 4: Severe kidney damage GFR 15-29 Stage 5: Severe kidney damage GFR <15 ESRD - chronic treatment by dialysis or transplant Troponinon 06-14-2019 Troponin I.cardiac [Mass/Vol] [place] Comment on above: Reference Range: <0.03 [...] diagnosis. Troponin T.cardiac [Mass/Vol] ug/L <0.03 ng/mL [place] Comment on above: Troponin T results c annot be compared to Troponin-I results. Troponin, High Sensitivity NOT REPORTED 0 - 22 ng/L [place] Troponin I.cardiac [Mass/Vol] [place] Comment on above: Reference Range: <0.03 [...] diagnosis. Troponin T.cardiac [Mass/Vol] ug/L <0.03 ng/mL [place] Comment on above: Troponin T results c annot be compared to Troponin-I results. Troponin, High Sensitivity NOT REPORTED 0 - 22 ng/L [place] APTTon 01-13-2018 aPTT 24.4 s Normal 20.5-30.5 [facility] Comment on above: Result Comment: [facility] [employer] [address] [place], [place] [id number] [phone] Performed By: #### C BC, PTT, TROPI, GLYHGB ####[facility] [address] [place] [address] Basic Metabolic Profon 01-13 (cont.) Normal [facility] Comment on above: Result Comment: Aver age GFR for 50-59 years old: 93 mL/min/1.73sq mChronic Kidney Disease: <60 mL/min/1.73sq mKidney failure: <15 mL/min/1.73sq meGFR calculated using average adult body mass. Additional eGFR calculator available at:http://www.CloudMade/multiple_crcl_2012.htmSharp [facility] [address] [place] [address] Performed By: #### C BC, PTT, TROPI, GLYHGB ####[facility] [address] [place] [address] Anion gap 9 mmol/L Normal 9-17 [facility] Comment on above: Performed By: #### C BC, PTT, TROPI, GLYHGB ####[facility] [address] [place] [address] Calcium 9.3 mg/dL Normal 8.6-10.4 [facility] Comment on above: Performed By: #### C BC, PTT, TROPI, GLYHGB ####[facility] [address] [place] [address] Chloride 102 mmol/L Normal 98-107 [facility] Comment on above: Performed By: #### C BC, PTT, TROPI, GLYHGB ####[facility] [address] [place] [address] CO2 24 mmol/L Normal 20-31 [facility] Comment on above: Performed By: #### C BC, PTT, TROPI, GLYHGB ####[facility] [address] [place] [address] Creatinine 0.75 mg/dL Normal 0.70-1.20 [facility] Comment on above: Performed By: #### C BC, PTT, TROPI, GLYHGB ####[facility] [address] [place] [address] eGFR (non-black) mL/min/{1.73_m2} Normal >60 [facility] Comment on above: Performed By: #### C BC, PTT, TROPI, GLYHGB ####[facility] [address] [place] [address] Glucose mass conc 104 mg/dL High 70-99 [facility] Comment on above: Performed By: #### C BC, PTT, TROPI, GLYHGB ####[address] [address] Potassium molar conc 5.0 mmol/L Normal 3.7-5.3 [facility] Comment on above: Result Comment: TEST CONFIRMED Performed By: #### C BC, PTT, TROPI, GLYHGB ####[address] [address] Sodium 135 mmol/L Normal 135-144 [facility] Comment on above: Performed By: #### C BC, PTT, TROPI, GLYHGB ####[facility] [address] [place] [address] Urea nitrogen 12 mg/dL Normal 6-20 [facility] Comment on above: Performed By: #### C BC, PTT, TROPI, GLYHGB ####[address] [address] BUN/CRE Ratio NOT REPORTED Normal -20 [facility] Comment on above: Performed By: #### C BC, PTT, TROPI, GLYHGB ####[facility] [address] [place] [address] Staging: NOT REPORTED Normal [facility] Comment on above: Performed By: #### C BC, PTT, TROPI, GLYHGB ####[facility] [address] [place] [address] (cont.) Normal [facility] Comment on above: Result Comment: Aver age GFR for 50-59 years old: 93 mL/min/1.73sq mChronic Kidney Disease: <60 mL/min/1.73sq mKidney failure: <15 mL/min/1.73sq meGFR calculated using average adult body mass. Additional eGFR calculator available at:http://www.CloudMade/multiple_crcl_2012.htmSharp [facility] [address] [place] [address] Performed By: #### C BC, PTT, TROPI, GLYHGB ####[facility] [address] [place] [address] Anion gap 11 mmol/L Normal 9-17 [facility] Comment on above: Performed By: #### C BC, PTT, TROPI, GLYHGB ####[facility] [address] [place] [address] Calcium 8.6 mg/dL Normal 8.6-10.4 [facility] Comment on above: Performed By: #### C BC, PTT, TROPI, GLYHGB ####[facility] [address] [place] [address] Chloride 100 mmol/L Normal 98-107 [facility] Comment on above: Performed By: #### C BC, PTT, TROPI, GLYHGB ####[facility]Wxmysixfbtwj3348[address] [place] [address] CO2 24 mmol/L Normal 20-31 [facility] Comment on above: Performed By: #### C BC, PTT, TROPI, GLYHGB ####[facility] Institute[facility].coPcxqalrapyak7629 [place] [address] Creatinine 0.64 mg/dL Low 0.70-1.20 [facility] Comment on above: Performed By: #### C BC, PTT, TROPI, GLYHGB ####[facility] [address] [place] [address] eGFR (non-black) mL/min/{1.73_m2} Normal >60 [facility] Comment on above: Performed By: #### C BC, PTT, TROPI, GLYHGB ####[facility] [place] [address] Glucose mass conc 102 mg/dL High 70-99 [facility] Comment on above: Performed By: #### C BC, PTT, TROPI, GLYHGB ####[facility] [address] [place] [address] Potassium molar conc 3.5 mmol/L Low 3.7-5.3 [facility] Comment on above: Performed By: #### C BC, PTT, TROPI, GLYHGB ####[place] [address] [place] [address] Sodium 135 mmol/L Normal 135-144 [facility] Comment on above: Performed By: #### C BC, PTT, TROPI, GLYHGB ####[facility] [address] [place] [address] Urea nitrogen 12 mg/dL Normal -20 [facility] Comment on above: Performed By: #### C BC, PTT, TROPI, GLYHGB ####[place] [address] [place] [address] BUN/CRE Ratio NOT REPORTED Normal - [facility] Comment on above: Performed By: #### C BC, PTT, TROPI, GLYHGB ####[facility] [address] [place] [address] Staging: NOT REPORTED Normal [facility] Comment on above: Performed By: #### C BC, PTT, TROPI, GLYHGB ####[place] [address] [place] [address] Discharge Summaryon 01-14-20 18 HIM IP Note OR Cryptographic Vulnerability Analyst Normal [facility] Magnesiumon 01-13-2018 Magnesium 2.2 mg/dL Normal 1.6-2.6 [facility] Comment on above: Result Comment: [facility] [place] [address] Performed By: #### C BC, PTT, TROPI, GLYHGB ####[facility] [address] [place] [address] Magnesium 2.1 mg/dL Normal 1.6-2.6 [facility] Comment on above: Result Comment: [facility] [address] [place] [address] Performed By: #### C BC, PTT, TROPI, GLYHGB ####[facility] [address] [place] [address] Plan of Careon 01-13-2018 HIM IP Note OR Cryptographic Vulnerability Analyst Normal [facility] Progress Noteon 01-13-2018 HIM IP Note OR Cryptographic Vulnerability Analyst Normal [facility] HIM IP Note OR Cryptographic Vulnerability Analyst Normal [facility] HIM IP Note OR Cryptographic Vulnerability Analyst Normal [facility] APTTon 01-12-2018 aPTT 47.5 s High 20.5-30.5 [facility] Comment on above: Result Comment: [facility] [address] [place] [address] Performed By: #### P TT ####[facility] [address] [place] [address] aPTT 48.3 s High 20.5-30.5 [facility] Comment on above: Result Comment: [facility] [address] [place] [address] Performed By: #### P LT, PTT ####[address] [address] aPTT 50.8 s High 20.5-30.5 [facility] Comment on above: Result Comment: [facility] [address] [place] [address] Performed By: #### P TT ####[address] [address] Platelet Counton 01-12-2018 Platelets 154 10*3/uL Normal 138-453 [facility] Comment on above: Result Comment: [facility] [address] [place] [address] Performed By: #### P LT, PTT ####[address] [address] Progress Noteon 01-12-2018 HIM IP Note OR Cryptographic Vulnerability Analyst Normal [facility] APTTon 01-11-2018 aPTT 38.0 s High 20.5-30.5 [facility] Comment on above: Result Comment: [facility] [address] [place] [address] Performed By: #### P TT ####[address] [address] aPTT 35.3 s High 20.5-30.5 [facility] Comment on above: Result Comment: [facility] [address] [place] [address] Performed By: #### P TT ####[address] [address] aPTT 30.5 s Normal 20.5-30.5 [facility] Comment on above: Result Comment: [facility] [address] [place] [address] Performed By: #### P TT ####[address] [address] CBCon 01-11-2018 Erythrocyte distribution width Auto Ratio (RBC) 14.0 % Normal 11.8-14.4 [facility] Comment on above: Performed By: #### C BC, CP, LIPR, MG ####[address] [address] Erythrocytes (RBC) 0.0 per 100 WBC Normal 0.0 [facility] Comment on above: Result Comment: [id number] [place] [address] Performed By: #### C BC, CP, LIPR, MG ####[address] [address] Erythrocytes (RBC) 4.36 10*6/uL Normal 4.21-5.77 [facility] Comment on above: Performed By: #### C BC, CP, LIPR, MG ####[address] [address] Hematocrit (HCT) 40.6 % Low 40.7-50.3 [facility] Comment on above: Performed By: #### C BC, CP, LIPR, MG ####[address] [address] Hemoglobin mass conc (Bld) 13.3 g/dL Normal 13.0-17.0 [facility] Comment on above: Performed By: #### C BC, CP, LIPR, MG ####[address] [address] MCH 30.5 pg Normal 25.2-33.5 [facility] Comment on above: Performed By: #### C BC, CP, LIPR, MG ####[address] [address] MCHC mass conc (RBC) 32.8 g/dL Normal 28.4-34.8 [facility] Comment on above: Performed By: #### C BC, CP, LIPR, MG ####[address] [address] MCV 93.1 fL Normal 82.6-102.9 [facility] Comment on above: Performed By: #### C BC, CP, LIPR, MG ####[address] [place] [address] Platelet mean volume (PMV) 10.1 fL Normal 8.1-13.5 [facility] Comment on above: Performed By: #### C BC, CP, LIPR, MG ####[address] [address] Platelets 153 10*3/uL Normal 138-453 [facility] Comment on above: Performed By: #### C BC, CP, LIPR, MG ####[address] [address] WBC (Leukocytes) 9.5 10*3/uL Normal 3.5-11.3 [facility] Comment on above: Performed By: #### C BC, CP, LIPR, MG ####[address] [address] Comp Metabolic Profon 2017 (cont.) Normal [facility] Comment on above: Result Comment: Aver age GFR for 50-59 years old: 93 mL/min/1.73sq mChronic Kidney Disease: <60 mL/min/1.73sq mKidney failure: <15 mL/min/1.73sq meGFR calculated using average adult body mass. Additional eGFR calculator available at:[email or web address]_[email or web address] [address] [address] [place] [address] Performed By: #### C BC, CP, LIPR, MG ####[facility] [place] [address] Alanine aminotransferase (ALT) 17 U/L Normal 5-41 [facility] Comment on above: Performed By: #### C BC, CP, LIPR, MG ####[address] [place] [address] Albumin 3.6 g/dL Normal 3.5-5.2 [facility] Comment on above: Performed By: #### C BC, CP, LIPR, MG ####[address] [place] [address] Albumin/Globulin Ratio 1.3 {ratio} Normal 1.0-2.5 [facility] Comment on above: Performed By: #### C BC, CP, LIPR, MG ####[address] [address] Alkaline Phos 76 U/L Normal 40-129 [facility] Comment on above: Performed By: #### C BC, CP, LIPR, MG ####[address] [address] Anion gap 14 mmol/L Normal 9-17 [facility] Comment on above: Performed By: #### C BC, CP, LIPR, MG ####[facility] [address] [place] [address] Aspartate aminotransferase (AST) 15 U/L Normal <40 [facility] Comment on above: Performed By: #### C BC, CP, LIPR, MG ####[address] [address] Bilirubin Ql (U) 1.13 mg/dL Normal 0.3-1.2 [facility] Comment on above: Performed By: #### C BC, CP, LIPR, MG ####[address] [address] Calcium 8.4 mg/dL Low 8.6-10.4 [facility] Comment on above: Performed By: #### C BC, CP, LIPR, MG ####[address] [address] Chloride 97 mmol/L Low 98-107 [facility] Comment on above: Performed By: #### C BC, CP, LIPR, MG ####[facility] [address] [place] [address] CO2 23 mmol/L Normal 20-31 [facility] Comment on above: Performed By: #### C BC, CP, LIPR, MG ####[facility] [address] [place] [address] Creatinine 0.63 mg/dL Low 0.70-1.20 [facility] Comment on above: Performed By: #### C BC, CP, LIPR, MG ####[facility] [address] [place] [address] eGFR (non-black) mL/min/{1.73_m2} Normal >60 [facility] Comment on above: Performed By: #### C BC, CP, LIPR, MG ####[facility] [address] [place] [address] Glucose mass conc 107 mg/dL High 70-99 [facility] Comment on above: Performed By: #### C BC, CP, LIPR, MG ####[facility] [address] [place] [address] Potassium molar conc 3.6 mmol/L Low 3.7-5.3 [facility] Comment on above: Performed By: #### C BC, CP, LIPR, MG ####[facility] [address] [place] [address] Protein 6.4 g/dL Normal 6.4-8.3 [facility] Comment on above: Performed By: #### C BC, CP, LIPR, MG ####[facility] [address] [place] [address] Sodium 134 mmol/L Low 135-144 [facility] Comment on above: Performed By: #### C BC, CP, LIPR, MG ####[address] [address] Urea nitrogen 19 mg/dL Normal -20 [facility] Comment on above: Performed By: #### C BC, CP, LIPR, MG ####[address] [address] BUN/CRE Ratio NOT REPORTED Normal - [facility] Comment on above: Performed By: #### C BC, CP, LIPR, MG ####[address] [address] Staging: NOT REPORTED Normal [facility] Comment on above: Performed By: #### C BC, CP, LIPR, MG ####[address] [address] Hemoglobin A1Con 01-11-2018 Glucose mass conc 114 mg/dL Normal [facility] Comment on above: Result Comment: The ADA and AACC recommend providing the estimated average glucose result to permit better patient understanding of their HBA1c result.[address] [address] Performed By: #### C BC, PTT, TROPI, GLYHGB ####[address] [address] Hemoglobin A1c/Hemoglobin.total mass fraction (Bld) 5.6 % Normal 4.0-6.0 [facility] Comment on above: Performed By: #### C BC, PTT, TROPI, GLYHGB ####[address] [address] Lipid Profileon 01-11-2018 Cholesterol 123 mg/dL Normal <200 [facility] Comment on above: Result Comment: Chol esterol Guidelines: <200 Desirable 200-240 Borderline >240 Undesirable Performed By: #### C BC, CP, LIPR, MG ####[address] [place] [address] Cholesterol to HDL Ratio 2.0 {ratio} Normal <5 [facility] Comment on above: Performed By: #### C BC, CP, LIPR, MG ####[facility] Institute[facility]ica.coLthihianeosu[address] [place] [address] HDL Cholesterol 63 mg/dL Normal >40 [facility] Comment on above: Result Comment: HDL Guidelines: <40 Undesirable 40-59 Borderline >59 Desirable Performed By: #### C BC, CP, LIPR, MG ####[facility] InstituteBonica.coDyyqihmvxxbf6251 [place] [address] LDL Cholesterol 38 mg/dL Normal 0-130 [facility] Comment on above: Result Comment: LDL Guidelines: <100 Desirable 100-129 Near to/above Desirable 130-159 Borderline >159 UndesirableDirect (measured) LDL and calculated LDL are not interchangeable tests. Performed By: #### C BC, CP, LIPR, MG ####[facility] [address] [place] [address] Triglyceride 111 mg/dL Normal <150 [facility] Comment on above: Result Comment: Trig lyceride Guidelines: <150 Desirable 150- 199 Borderline 200-499 High >499 Very high Based on AHA Guidelines for fasting triglyceride, July 2012.[address] [place] [address] Performed By: #### C BC, CP, LIPR, MG ####[facility] InstituteBonica.coAuktlikierbo[address] [place] [address] Cholesterol in VLDL mass conc NOT REPORTED Normal 1-30 [facility] Comment on above: Performed By: #### C BC, CP, LIPR, MG ####[facility] InstituteBonica.coYcluyfmgykqx[address] [place] [address] Magnesiumon 01-11-2018 Magnesium 2.1 mg/dL Normal 1.6-2.6 [facility] Comment on above: Result Comment: [facility] [place] [address] Performed By: #### C BC, CP, LIPR, MG ####[facility] [address] [place] [address] Plan of Careon 01-11-2018 HIM IP Note OR Cryptographic Vulnerability Analyst Normal [facility] HIM IP Note OR Cryptographic Vulnerability Analyst Normal [facility] Progress Noteon 01-11-2018 HIM IP Note OR Cryptographic Vulnerability Analyst Normal [facility] Troponinon 01-11-2018 Troponin I.cardiac mass conc Normal [facility] Comment on above: Result Comment: Refe rence Range: <0.03 Within reference range. 0.03-0.09 Possible myocardial damage.Repeat at appropriate intervals to rule out chronic elevation. >= 0.10 Indicative of myocardial damage.Patients with high levels of Biotin oral intake (i.e >5mg/day) may have falsely decreased Troponin T levels. Samples collected within 8 hours of biotin intake may require additional information for diagnosis.MedWhat [address] [place] [address] Performed By: #### T ROPI ####[facility] [address] [place] [address] Troponin T.cardiac mass conc ug/L Normal <0.03 [facility] Comment on above: Result Comment: Trop onin T results cannot be compared to Troponin-I results. Performed By: #### T ROPI ####[facility] [address] [place] [address] APTTon 01-10-2018 aPTT 23.8 s Normal 20.5-30.5 [facility] Comment on above: Result Comment: [facility] [place] [address] Performed By: #### C BC, PTT, TROPI, GLYHGB ####[facility] [address] [place] [address] CBCon 01-10-2018 Erythrocyte distribution width Auto Ratio (RBC) 14.2 % Normal 11.8-14.4 [facility] Comment on above: Performed By: #### C BC, PTT, TROPI, GLYHGB ####[address] [address] Erythrocytes (RBC) 4.47 10*6/uL Normal 4.21-5.77 [facility] Comment on above: Performed By: #### C BC, PTT, TROPI, GLYHGB ####[address] [address] Erythrocytes (RBC) 0.0 per 100 WBC Normal 0.0 [facility] Comment on above: Result Comment: [address] [address] Performed By: #### C BC, PTT, TROPI, GLYHGB ####[address] [address] Hematocrit (HCT) 41.3 % Normal 40.7-50.3 [facility] Comment on above: Performed By: #### C BC, PTT, TROPI, GLYHGB ####[address] [address] Hemoglobin mass conc (Bld) 13.5 g/dL Normal 13.0-17.0 [facility] Comment on above: Performed By: #### C BC, PTT, TROPI, GLYHGB ####[address] [address] MCH 30.2 pg Normal 25.2-33.5 [facility] Comment on above: Performed By: #### C BC, PTT, TROPI, GLYHGB ####[address] [address] MCHC mass conc (RBC) 32.7 g/dL Normal 28.4-34.8 [facility] Comment on above: Performed By: #### C BC, PTT, TROPI, GLYHGB ####[facility] [place] [address] MCV 92.4 fL Normal 82.6-102.9 [facility] Comment on above: Performed By: #### C BC, PTT, TROPI, GLYHGB ####[address] [place] [address] Platelet mean volume (PMV) 10.1 fL Normal 8.1-13.5 [facility] Comment on above: Performed By: #### C BC, PTT, TROPI, GLYHGB ####[address] [place] [address] Platelets 160 10*3/uL Normal 138-453 [facility] Comment on above: Performed By: #### C BC, PTT, TROPI, GLYHGB ####[address] [place] [address] WBC (Leukocytes) 6.8 10*3/uL Normal 3.5-11.3 [facility] Comment on above: Performed By: #### C BC, PTT, TROPI, GLYHGB ####[address] [place] [address] History and Physicalon 01-10 HIM IP Note OR Cryptographic Vulnerability Analyst Normal [facility] Plan of Careon 01-10-2018 HIM IP Note OR Cryptographic Vulnerability Analyst Normal [facility] Progress Noteon 01-10-2018 HIM IP Note OR Cryptographic Vulnerability Analyst Normal [facility] Troponinon 01-10-2018 Troponin I.cardiac mass conc Normal [facility] Comment on above: Result Comment: Refe rence Range: <0.03 Within reference range. 0.03-0.09 Possible myocardial damage.Repeat at appropriate intervals to rule out chronic elevation. >= 0.10 Indicative of myocardial damage.Patients with high levels of Biotin oral intake (i.e >5mg/day) may have falsely decreased Troponin T levels. Samples collected within 8 hours of biotin intake may require additional information for diagnosis.[facility] [address] [place], [place] [id number] ([phone] Performed By: #### C BC, PTT, TROPI, GLYHGB ####[facility] [address] [place], [place] [id number] Troponin T.cardiac mass conc ug/L Normal <0.03 [facility] Comment on above: Result Comment: Trop onin T results cannot be compared to Troponin-I results. Performed By: #### C BC, PTT, TROPI, GLYHGB ####[facility] [place], [place] [id number] Vital Signs Date Time Vital Sign Value Performing Clinician Faci lity 2023 06:08-0500 SaO2% (BldA) [Mass fraction] 99 % Nadia Fitzpatrick MD Work Phone: [facility] 2023 05:49-0500 Body temperature 100.09 [degF] Nadia Fitzpatrick MD Work Phone: [facility] 2023 05:49-0500 Diastolic blood pressure 52 mm[Hg] Nadia Fitzpatrick MD Work Phone: [facility] 2023 05:49-0500 Heart rate 89 /min Nadia Fitzpatrick MD Work Phone: [facility] 2023 05:49-0500 Respiratory rate 18 /min Nadia Fitzpatrick MD Work Phone: [facility] [employer] 2023 05:49-0500 Systolic blood pressure 151 mm[Hg] Nadia Fitzpatrick MD Work Phone: [facility] 09-18-2023 13:40-0500 Diastolic blood pressure 68 mm[Hg] Shaheen Chappell MD Work Phone: [employer] [facility] 09-18-2023 13:40-0500 Heart rate 68 /min Shaheen Chappell MD Work Phone: [facility] 09-18-2023 13:40-0500 SaO2% (BldA) [Mass fraction] 97 % Shaheen Chappell MD Work Phone: [facility] 09-18-2023 13:40-0500 Systolic blood pressure 101 mm[Hg] Shaheen Chappell MD Work Phone: [facility] 09-18-2023 13:10-0500 Respiratory rate 16 /min Shaheen Chappell MD Work Phone: [facility] 09-18-2023 13:00-0500 Body temperature 97 [degF] Shaheen Chappell MD Work Phone: [facility] 09-18-2023 08:35-0500 Body height 167.6 cm Shaheen Chappell MD Work Phone: [facility] 09-18-2023 08:35-0500 Body mass index (BMI) [Ratio] 27.44 kg/m2 Shaheen Chappell MD Work Phone: [facility] 09-18-2023 08:35-0500 Body weight 77.11 kg Shaheen Chappell MD Work Phone: [facility] 08-14-2023 14:38-0500 Body height 167.6 cm Nikhil Mohr MD Work Phone: [facility] 08-14-2023 14:38-0500 Body mass index (BMI) [Ratio] 26.87 kg/m2 Nikhil Mohr MD Work Phone: [facility] 08-14-2023 14:38-0500 Body weight 75.52 kg Nikhil Mohr MD Work Phone: [facility] 08-14-2023 14:38-0500 Diastolic blood pressure 69 mm[Hg] Nikhil Mohr MD Work Phone: [facility] 08-14-2023 14:38-0500 Heart rate 72 /min Nikhil Mohr MD Work Phone: [facility] 08-14-2023 14:38-0500 SaO2% (BldA) [Mass fraction] 98 % Nikhil Mohr MD Work Phone: [facility] 08-14-2023 14:38-0500 Systolic blood pressure 102 mm[Hg] Nikhil Mohr MD Work Phone: [facility] 07-16-2023 13:41-0400 Body height 167.6 cm Jennie Hernandez MD Work Phone: [facility] 07-16-2023 13:41-0400 Body mass index (BMI) [Ratio] 27.11 kg/m2 Jennie Hernandez MD Work Phone: [facility] 07-16-2023 13:41-0400 Body weight 76.2 kg Jennie Hernandez MD Work Phone: [facility] 07-04-2023 09:34-0400 Body height 167.6 cm Jennie Hernandez MD Work Phone: [facility] 07-04-2023 09:34-0400 Body mass index (BMI) [Ratio] 27.12 kg/m2 Jennie Hernandez MD Work Phone: [facility] 07-04-2023 09:34-0400 Body weight 76.2 kg Jennie Hernandez MD Work Phone: [facility] 06-10-2023 10:18-0400 Body height 167.6 cm Jennie Hernandez MD Work Phone: [facility] 06-10-2023 10:18-0400 Body mass index (BMI) [Ratio] 27.12 kg/m2 Jennie Hernandez MD Work Phone: [facility] 06-10-2023 10:18-0400 Body weight 76.2 kg Jennie Hernandez MD Work Phone: [facility] 05-19-2023 09:07-0400 Body height 167.6 cm Jennie Hernandez MD Work Phone: [facility] 05-19-2023 09:07-0400 Body mass index (BMI) [Ratio] 27.12 kg/m2 Jennie Hernandez MD Work Phone: [facility] 05-19-2023 09:07-0400 Body weight 76.2 kg Jennie Hernandez MD Work Phone: [facility] 04-18-2023 12:33-0400 Body height 167.6 cm Jennie Hernandez MD Work Phone: [facility] 04-18-2023 12:33-0400 Body mass index (BMI) [Ratio] 26.63 kg/m2 Jennie Hernandez MD Work Phone: [facility] 04-18-2023 12:33-0400 Body weight 74.84 kg Jennie Hernandez MD Work Phone: [facility] 02-25-2023 08:48-0400 Body height 167.6 cm Jennie Hernandez MD Work Phone: [facility] 02-25-2023 08:48-0400 Body mass index (BMI) [Ratio] 26.63 kg/m2 Jennie Hernandez MD Work Phone: [facility] 02-25-2023 08:48-0400 Body weight 74.84 kg Jennie Hernandez MD Work Phone: [facility] 12-31-2022 13:46-0400 Body temperature 97.3 [degF] Rosa Garg DO [facility] Phone[facility] 12-31-2022 13:46-0400 Diastolic blood pressure 71 mm[Hg] Rosa Garg DO Work Phone: [facility] 12-31-2022 13:46-0400 Heart rate 72 /min Rosa Garg DO Work Phone: [facility] 12-31-2022 13:46-0400 Respiratory rate 16 /min Rosa Garg DO Work Phone: [facility] [employer] 12-31-2022 13:46-0400 SaO2% (BldA) [Mass fraction] 92 % Rosa Garg DO Work Phone: [facility] [employer] 12-31-2022 13:46-0400 Systolic blood pressure 102 mm[Hg] Rosa Garg DO Work Phone: [facility] [employer] 12-31-2022 02:40-0400 Body mass index (BMI) [Ratio] 25.34 kg/m2 Rosa Garg DO Work Phone: [facility] [employer] 12-31-2022 02:40-0400 Body weight 71.2 kg Rsoa Garg DO Work Phone: [facility] [employer] 12-30-2022 12:46-0400 Body height 167.6 cm Rosa Garg DO Work Phone: [facility] [employer] 05-31-2022 14:26-0400 Blood Pressure Location [facility] [place] 05-31-2022 14:26-0400 Diastolic blood pressure 60 mm[Hg] Julian [facility] [place] 05-31-2022 14:26-0400 Heart rate 66 /min Julian DIA[facility] [place] 05-31-2022 14:26-0400 Respiratory rate 16 /min Julian DIA[facility] [place] 05-31-2022 14:26-0400 Systolic blood pressure 108 mm[Hg] Julian DIAZ [facility] [place] 03-09-2021 12:45-0400 Respiratory rate 16 /min Julian Dougherty MD [employer] Work Phone: 03-09-2021 10:28-0400 Body height 167.6 cm Julian Dougherty MD [employer] Work Phone: 03-09-2021 10:28-0400 Body mass index (BMI) [Ratio] 25.5 kg/m2 Julian Dougherty MD [employer] Phone: 03-09-2021 10:28-0400 Body temperature 98.49 [degF] Julian Dougherty MD [employer] Phone: 03-09-2021 10:28-0400 Body weight 71.67 kg Julian Dougherty MD [employer] Phone: 03-09-2021 10:28-0400 Heart rate 79 /min Julian Dougherty MD [employer] Phone: 03-09-2021 10:28-0400 SaO2% (BldA) [Mass fraction] 97 % Julian Dougherty MD [employer] Phone: 07-18-2020 09:15-0400 Pulse Oximetry 97 % [facility] [place] 07-18-2020 08:30-0400 BP Diastolic 96 mm[Hg] [facility], [place] 07-18-2020 08:30-0400 BP Systolic 135 mm[Hg] Sebastian [facility] 07-18-2020 08:18-0400 Body Temperature 98.01 [degF] Sebastian [facility], [place] 07-18-2020 08:18-0400 Pulse (Heart Rate) 84 /min [facility], [place] 07-18-2020 08:18-0400 Respiratory Rate 16 /min [facility], [place] 09-12-2019 02:36-0500 BP Diastolic 95 mm[Hg] [facility] [place] 09-12-2019 02:36-0500 BP Systolic 138 mm[Hg] [facility] [place] 09-12-2019 01:27-0500 Body Temperature 97.3 [degF] [facility] [place] 09-12-2019 01:27-0500 Pulse (Heart Rate) 86 /min Justice Shaver [place], [place] 09-12-2019 01:27-0500 Pulse Oximetry 97 % Justice Shaver [place], [place] 09-12-2019 01:27-0500 Respiratory Rate 18 /min [place] 06-14-2019 12:44-0400 BP Diastolic 89 mm[Hg] [place] 06-14-2019 12:44-0400 BP Systolic 158 mm[Hg] [place] 06-14-2019 12:44-0400 Pulse (Heart Rate) 68 /min [place] 06-14-2019 12:44-0400 Pulse Oximetry 95 % [place] 06-14-2019 12:44-0400 Respiratory Rate 12 /min [place] 06-14-2019 10:15-0400 BMI (Body Mass Index) 24.53 kg/m2 [place] 06-14-2019 10:15-0400 Body Temperature 98.01 [degF] [place] 06-14-2019 10:15-0400 Body weight 68.95 kg [place] Encounters Encounter Date Encounter Type Care Provider Facility Start: 02-11-2024 End: 02-11-2024 ambulatory [facility] Start: 11-24-2023 End: 11-24-2023 ambulatory ROMARIO MAN Not Available Start: 2023 End: 2023 Emergency department patient visit NADIA FITZPATRICK [facility] Start: 2023 End: 2023 Emergency department patient visit Nadia Fitzpatrick MD Work Phone: [facility] ED Comment on above: Viral illness (Prima ry Dx) Start: 09-18-2023 End: 09-18-2023 ambulatory ROMARIO MAN [facility] Start: 09-18-2023 End: 09-18-2023 Subsequent hospital visit by physician Shaheen Chappell MD Work Phone: [facility] Comment on above: Sacroiliitis Start: 09-09-2023 ambulatory ROMARIO MAN [facility] Start: 09-09-2023 Encounter for other preprocedural examination [facility] Start: 08-27-2023 ambulatory [facility] Start: 08-14-2023 End: 08-14-2023 Office outpatient new 45 minutes Nikhil Mohr MD Work Phone: [facility] Comment on above: 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); Hyperreflexia Start: 08-13-2023 End: 08-13-2023 ambulatory [facility] Start: 08-13-2023 End: 08-13-2023 Encounter for other preprocedural examination [facility] Start: 07-16-2023 ambulatory JENNIE HERNANDEZ [facility] Start: 07-16-2023 End: 07-16-2023 Subsequent hospital visit by physician Jennie Hernandez MD Work Phone: [facility] Procedure Images Comment on above: Arrived Start: 07-16-2023 End: 07-16-2023 Patient encounter procedure Jennie Hernandez MD Work Phone: [facility] Comment on above: 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); Pain of both sacroiliac joints Start: 07-04-2023 ambulatory JENNIE HERNANDEZ [facility] Start: 07-04-2023 End: 07-04-2023 Office outpatient visit 15 minutes Jennie Hernandez MD Work Phone: [facility] Comment on above: 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); Pain of both sacroiliac joints; Polyneuropathy Start: 06-10-2023 ambulatory JENNIE HERNANDEZ [facility] Start: 06-10-2023 End: 06-10-2023 Patient encounter procedure Jennie Hernandez MD Work Phone: [facility] Comment on above: Osteoarthritis of ri ght sacroiliac joint (Primary Dx); Pain of right sacroiliac joint; Polyneuropathy; Lower extremity numbness; Osteoarthritis of left sacroiliac joint; Pain of left sacroiliac joint; Lumbar spondylosis Start: 05-19-2023 ambulatory [facility] Start: 05-19-2023 End: 05-19-2023 Office outpatient visit 15 minutes Jennie Hernandez MD Work Phone: [facility] Comment on above: Osteoarthritis of le ft sacroiliac joint (Primary Dx); Pain of left sacroiliac joint; Lumbar spondylosis Start: 04-18-2023 ambulatory JENNIE HERNANDEZ [facility] Start: 04-18-2023 End: 04-18-2023 Patient encounter procedure Jennie Hernandez MD Work Phone: [facility] Comment on above: Osteoarthritis of le ft sacroiliac joint (Primary Dx) Start: 04-18-2023 End: 04-18-2023 Subsequent hospital visit by physician Jennie Hernandez MD Work Phone: [facility] Procedure Images Comment on above: Arrived Start: 04-15-2023 ambulatory JENNIE HERNANDEZ [facility] Start: 02-25-2023 ambulatory JENNIE Heidi MARY [facility] Start: 02-25-2023 End: 02-25-2023 Office outpatient new 30 minutes Jennie Hernandez MD Work Phone: [facility] Comment on above: Osteoarthritis of le ft sacroiliac joint (Primary Dx); Lumbar spondylosis; Lower extremity numbness Start: 01-13-[address] [facility] Start: 01-08-2023 End: 01-09-[address] ROMARIO MAN Facility:H1 Start: 12-30-2022 End: 12-31-2022 Evaluation and management of inpatient ROMARIO MAN [facility] Start: 12-30-2022 End: 12-31-2022 Evaluation and management of inpatient Rosa Garg DO Work Phone: [facility] SURG Comment on above: Chest pain, [...] examination without abnormal findings DR ROMARIO MAN [facility] Start: 09-11-2022 End: 09-12-[address] ROMARIO MAN Facility:H1 Start: 09-11-2022 End: 09-12-2022 Encounter for general adult medical examination without abnormal findings DR ROMARIO MAN Facility:H1 Start: 08-22-2022 End: 08-22-[address] NELSON IBRAHIM . Facility:H1 Start: 07-10-2022 End: 07-11-2022 ambulatory Julian DIAZ Facility:[facility] Start: 07-10-2022 End: 07-10-2022 Patient encounter procedure Julian DIAZ General Surgery Emily/Said [place] Start: 06-26-2022 End: 06-27-2022 ambulatory Julian DIAZ Facility:CD:[id number] Start: 06-24-2022 Encounter for preprocedural laboratory examination DR JULIAN DIAZ . [facility] Start: 06-22-2022 End: 06-23-[address] JULIAN DIAZ . Facility:H1 Start: 06-22-2022 End: 06-23-2022 Encounter for preprocedural laboratory examination DR JULIAN DIAZ . Facility:H1 Start: 05-31-2022 End: 06-01-2022 ambulatory ROMARIO MAN PROVIDER Facility: [facility] Start: 05-31-2022 End: 05-31-2022 Patient encounter procedure Julian Davis EMILY General Surgery Nill/Abdiaziz Krishnamurthy Start: 05-30-2022 End: 05-31-[address] NELSON IBRAHIM . Facility:H1 Start: 05-15-2022 ambulatory Julian DIAZ Facility : [facility] Start: 04-30-2022 End: 04-30-[address] NELSON IBRAHIM . Facility:H1 Start: 04-23-2022 End: 04-23-[address] NELSON IBRAHIM . Facility:H1 Start: 04-03-2022 End: 04-04-2022 ambulatory JULIANE MASSEY . Facility:H1 Start: 03-25-2022 End: 03-25-2022 Subsequent hospital visit by physician Romario Man MD Work Phone: [facility] Laboratory Comment on above: Chronic fatigue Start: 03-12-2022 End: 03-13-[address] ROMARIO MAN Facility:H1 Start: 03-12-2022 End: 03-12-[address] ROMARIO MAN Facility:H1 Start: 02-21-2022 End: 02-22-[address] NELSON IBRAHIM . Facility:H1 Start: 02-05-2022 End: 02-05-[address] ROMARIO MAN Facility:H1 Start: 03-09-2021 End: 03-09-2021 Emergency department patient visit Julian Dougherty MD [facility] ED Comment on above: Acute gout of right wrist, unspecified cause (Primary Dx) Start: 08-17-2020 End: 08-17-2020 Subsequent hospital visit by physician [facility] Cardiology Stress Room [facility] Stress Lab Comment on above: Arrived Start: 08-16-2020 End: 08-18-2020 Subsequent hospital visit by physician [facility] Vascular Imaging Room [facility] Vascular Lab Comment on above: Other specified lisette pheral vascular diseases (HCC) Start: 08-16-2020 End: 08-16-2020 Subsequent hospital visit by physician [facility] Cardiology Stress Room [facility] Stress Lab Comment on above: Arrived Start: 07-18-2020 End: 07-18-2020 Emergency department patient visit Sebastian Carmichael Work Phone: [facility] ED Comment on above: Abdominal pain, epig astric (Primary Dx) Start: 09-12-2019 End: 09-12-2019 Emergency department patient visit Justice Shaver Work Phone: [facility] ED Comment on above: Trapezius muscle spa sm (Primary Dx) Start: 06-14-2019 End: 06-14-2019 Emergency department patient visit Pablo Portillo Work Phone: [facility] ED Comment on above: Chronic pain of both shoulders (Primary Dx); Neck pain, chronic; Nonspecific chest pain Start: 01-29-2018 End: 01-30-2018 Ambulatory DEFAULT PHYSICIAN Facility:[facility] Start: 01-20-2018 End: 01-21-2018 Ambulatory DEFAULT PHYSICIAN Facility:[facility] Start: 01-10-2018 End: 01-13-2018 Evaluation and management of inpatient SOREN MOHR [facility] Procedures Date Procedure Procedure Detail Performing Clinician [...] Start: 12-31-2022 [facility] Phone: Start: 12-31-2022 BASIC METABOLIC PANEL W/ REFLEX TO MG FOR LOW K [facility] Work [facility]: Start: 12-31-2022 Lipid panel Cece Waddell [facility] Work Phone: Start: 12-31-2022 End: 12-31-2022 Ecg routine ecg w/least 12 lds w/i&r Cece Waddell [facility] Work Phone: Start: 12-30-2022 Echo tthrc r-t 2d w/wom-mode compl spec&colr d [facility] Work Phone: Start: 12-30-2022 RESPIRATORY PANEL, MOLECULAR, WITH COVID-19 [facility] Work Phone: Start: 12-30-2022 Rhythm ecg 1-3 [...] ecg w/least 12 lds i&r only Rosa R Garg DO Work Phone: Start: 09-11-2022 PSA screening JULIANE MASSEY . Comment on above: Performed By: #### HGBHCT #### [facility] [address] [address] [address] Raimundo Estrada Start: 06-26-2022 Colonoscopy Julian EMILY Start: 06-26-2022 Esophagogastroduodenoscopy Julian DIAZ Start: 03-25-2022 Sedimentation rate rbc automated [place] Chapo DRUMMOND Work Phone: Start: 03-09-2021 Assay of blood/uric [...] Phone: Start: 07-18-2020 Urinalysis microscopic only Sebastian yanes Work Phone: Start: 07-18-2020 Urnls dip stick/tablet rgnt auto w/o microscopy Sebastianmaranda Carmichael Work Phone: Start: 06-14-2019 Assay of troponin quantitative Pablo Hall se Work Phone: Start: 06-14-2019 Radiologic exam chest single view Pablo Portillo Work Phone: Start: 06-14-2019 Assay of lipase Pablo Portillo Work Phone: Start: 06-14-2019 Assay of troponin quantitative Pablo Hall se Work Phone: Start: 06-14-2019 Blood count [...] SIGNS SHOWKAT AHMAD Start: 01-12-2018 DIAGNOSTIC CARDIAC SPOTTER PROCEDURE SHOWKAT AHMAD Start: 01-12-2018 APTT SHOWKAT [...] AHMAD Start: 01-10-2018 PULSE OXIMETRY SPOT CHECK SOREN SPRAGUED Start: 01-10-2018 TELEMETRY [facility] Start: 01-10-2018 VITAL SIGNS [facility] Start: 01-10-2018 PATIENT STATUS (DIRECT) [facility] Start: 10-06-2017 Cardiac catheterization Julian HOWELLNola Start: 10-06-2005 Cardiac catheterization Julian HOWELLNola Coronary artery sten t (physical object) Julian HOWELLNola Extraction of cataract Robi DIAZ History of operative procedure on lumbar spinal structure Julian HOWELLNola Plan of Treatment Date Care Activity Detail Author Start: 07-01-2031 DTaP/Tdap/Td vaccine (3 - Td or Tdap) DTaP/Tdap/Td vaccine (3 - Td or Tdap) [facility] Start: 12-31-2025 Diabetes screen Diabetes screen [facility] Start: 2025 Pneumococcal 0-64 years Vaccine (3 - PPSV23 if available, else PCV20) Pneumococcal 0-64 years Vaccine (3 - PPSV23 if available, else PCV20) [facility] Start: 2025 Pneumococcal 0-64 years Vaccine (3 - PPSV23 or PCV20) Pneumococcal 0-64 years Vaccine (3 - PPSV23 or PCV20) [facility] Start: 01-01-2024 Lipid panel Lipids [facility] Start: 09-18-2023 End: 09-18-2023 Arthrodesis sacroiliac joint percutaneous ARTHRODESIS SACROILIAC JOINT MINIMALLY INVASIVE W/ TRANSFIXING DEVICE Sacroiliitis 09/18/2023 10:52 AM EST [facility] Start: 09-18-2023 End: 09-18-2023 Fluoroscopy up to 1 hour physician/qhp time FLUOROSCOPY IN OR Sacroiliitis 09/18/2023 10:52 AM EST [facility] Start: 08-14-2023 End: 08-14-2023 Patient encounter procedure 08/14/2023 2:45 PM EST Office Visit [facility]rology [address] [place] [address] Nikhil Mohr MD [address] [place] [address] [facility] Start: 08-14-2023 End: 08-14-2024 B12/folate level B12 & FOLATE Lab Routine Hereditary and idiopathic peripheral neuropathy Expected: 08/14/2023, Expires: 08/14/2024 [facility] Comment on above: Expected: 08/14/2023, Expires: Start: 08-14-2023 End: 08-14-2024 Hemoglobin A1c/Hemoglobin.total in Blood HEMOGLOBIN A1C Lab Routine Hereditary and idiopathic peripheral neuropathy Expected: 08/14/2023, Expires: 08/14/2024 [facility] Comment on above: Expected: 08/14/2023, Expires: Start: 08-14-2023 End: 08-14-2024 MILENA AND PE, SERUM MILENA AND PE, SERUM Lab Routine Hereditary and idiopathic peripheral neuropathy Expected: 08/14/2023, Expires: 08/14/2024 [facility] Comment on above: Expected: 08/14/2023, Expires: Start: 08-14-2023 End: 08-14-2024 MR Cervical spine WO contrast MRI SPINE CERVICAL WITHOUT CONTRAST Imaging Routine Hyperreflexia Expected: 08/14/2023, Expires: 08/14/2024 [facility] Comment on above: Expected: 08/14/2023, Expires: 4 Start: 08-14-2023 End: 08-14-2024 MR Thoracic spine WO contrast MRI SPINE THORACIC WITHOUT CONTRAST Imaging Routine Hyperreflexia Expected: 08/14/2023, Expires: 08/14/2024 [facility] Comment on above: Expected: 08/14/2023, Expires: Start: 08-14-2023 End: 08-14-2024 VITAMIN B6 VITAMIN B6 Lab Routine Hereditary and idiopathic peripheral neuropathy Expected: 08/14/2023, Expires: 08/14/2024 [facility] Comment on above: Expected: 08/14/2023, Expires: Start: 07-04-2023 End: 07-04-2023 Patient encounter procedure 07/04/2023 9:00 AM EDT Office Visit [facility] [address] [place] [address] Jennie Hernandez MD [address] [place] [address] [facility] Start: 06-10-2023 End: 06-10-2023 Patient encounter procedure 06/10/2023 10:00 AM EDT Office Visit [facility] [address] [place] [address] Jennie Hernandez MD [address] [place] [address] [place] [address] [facility] Start: 06-06-2023 COVID-19 Vaccine ( season) COVID-19 Vaccine ( season) [facility] Start: 06-06-2023 Influenza vaccination [facility] Start: 05-19-2023 End: 05-19-2023 Patient encounter procedure 05/19/2023 9:00 AM EDT [facility] [address] [place] [address] Jennie Hernandez MD [address] [place] [address] [place] [address] [facility] Start: 05-06-2023 Influenza vaccination Flu vaccine (#1) [facility] Start: 04-18-2023 End: 04-18-2023 Patient encounter procedure 04/18/2023 12:40 PM EDT Office Visit [facility] [address] [place] [place] [address] Jennie Hernandez MD [address] [place] [address] [facility] [place] [place] [address] [facility] Start: 04-15-2023 End: 04-15-2023 Patient encounter procedure 04/15/2023 10:15 AM EDT Office Visit [facility] [place] [address] [place] [address] Jw Cee MD [address] [place] [address] [facility] Start: 03-25-2023 Hemoglobin A1c measurement A1C test (Diabetic or Prediabetic) [facility] Start: 02-25-2023 End: 02-26-2024 Electromyography EMG & NERVE CONDUCTION Neurology Routine Lower extremity numbness Expected: 02/25/2023, Expires: 02/26/2024 [facility] Comment on above: Expected: 02/25/2023, Expires: 4 Start: 01-11-2023 Lipid screen Lipid screen [place] Start: 04-11-2022 End: 04-11-2022 Patient encounter procedure 04/11/2022 Office Visit Neurology Con Cowan MD [address] [place] [address] [place] [address] [facility] Start: 06-06-2021 Influenza vaccination Flu vaccine (Season Ended) [facility] [employer] [facility] Work Phone: Start: 01-10-2021 Diabetes screen Diabetes screen [facility] Start: 2020 Respiratory Syncytial Virus (RSV) or age 60 yrs+ (1 - 1-dose 60+ series) Respiratory Syncytial Virus (RSV) or age 60 yrs+ (1 - 1-dose 60+ series) [facility] Start: 08-17-2020 End: 08-17-2020 Appointment 08/17/2020 Appointment Stress Lab [facility] Stress [facility] Start: 06-06-2020 Influenza vaccination Flu vaccine (#1) [place] Start: 06-06-2019 Influenza vaccination Flu vaccine (#1) [place] Start: 01-11-2019 Lipid panel [facility] Start: 01-11-2019 Lipid screen Lipid screen [place] Start: 08-13-2018 Prostate specific antigen measurement Prostate Specific Antigen (PSA) Screening or Monitoring [facility] Start: 2010 Colon cancer screen colonoscopy Colon cancer screen colonoscopy [place] Start: 2010 Prostate specific antigen measurement PROSTATE CANCER SCREENING DISCUSSION [facility] Start: 2010 Screening for malignant neoplasm of colon Colon cancer screen colonoscopy [place] Start: 2010 Shingles Vaccine (1 of 2) Shingles Vaccine (1 of 2) [place] Start: 2010 Zoster vaccine hzv live for subcutaneous use ZOSTER (SHINGLES) VACCINE (1 of 2) [facility] Start: 2005 Screening for malignant neoplasm of colon [facility] Start: 2000 Lipid panel LIPID SCREENING [facility] Start: 1979 DTaP/Tdap/Td vaccine (1 - Tdap) DTaP/Tdap/Td vaccine (1 - Tdap) [place] Start: 1979 Third diphtheria, tetanus and acellular pertussis (DTaP) vaccination TDAP (ADULT) [facility] Start: 1978 Hepatitis C screening Hepatitis C screen [facility] Start: 1975 HIV screen HIV screen [place] Start: 1975 HIV screening [facility] Start: 1972 COVID-19 Vaccine (1) COVID-19 Vaccine (1) [facility] Work Phone: Start: 1972 Depression Screen Depression Screen [facility] Start: 1971 DTaP/Tdap/Td vaccine (1 - Tdap) DTaP/Tdap/Td vaccine (1 - Tdap) [place] Start: 1966 Pneumococcal 0-64 years Vaccine (1 of 1 - PPSV23) Pneumococcal 0-64 years Vaccine (1 of 1 - PPSV23) [place] Start: 1966 Pneumococcal 0-64 years Vaccine (1 of 2 - PPSV23) Pneumococcal 0-64 years Vaccine (1 of 2 - PPSV23) [facility] [employer] Phone: Start: 04-09-1961 COVID-19 VACCINE (#1) COVID-19 VACCINE (#1) [employer] Start: 1960 Hepatitis C screen Hepatitis C screen [place] Start: 1960 Hepatitis C screening [facility] Start: 1960 Tetanus vaccination TETANUS [facility] End: 01-02-2023 Basic Metabolic Panel w/ Reflex to MG Basic Metabolic Panel w/ Reflex to MG Lab Routine Daily for 3 Days starting 12/31/2022 until 01/02/2023, 1 completed [facility] Phone: Comment on above: Daily for 3 Days starting 12/31/2022 unt il 01/02/2023, 1 completed End: 01-02-2023 CBC W Auto Differential panel - Blood CBC with Auto Differential Lab Routine Daily for 3 Days starting 12/31/2022 until 01/02/2023, 1 completed [facility] Phone: Comment on above: Daily for 3 Days starting 12/31/2022 unt il 01/02/2023, 1 completed EKG 12 Lead EKG 12 Lead ECG STAT 06/14/2019 10:26 AM EDT [place] EKG 12 lead EKG 12 lead ECG Routine As Needed until discontinued starting 12/30/2022 [facility] Phone: Comment on above: As Needed until discontinued starting End: 03-25-2022 Hemoglobin A1c/Hemoglobin.total in Blood [facility] Phone: Comment on above: 1 Occurrences starting 03/25/2022 until 03/25/2022 End: 12-31-2022 Hemoglobin A1c/Hemoglobin.total in Blood Hemoglobin A1C Lab Routine Tomorrow AM for 1 Occurrences starting 12/31/2022 until 12/31/2022 [facility] Phone: Comment on above: Tomorrow AM for 1 Occurrences starting 0 12/31/2022 until 12/31/2022 Hemoglobin A1c/Hemoglobin.total in Blood Hemoglobin A1C Lab Routine 12/31/2022 6:30 AM EDT [facility] Phone: Initiate ED RT Bronc hospasm Protocol Initiate ED RT Bronchospasm Protocol Respiratory Care Routine Daily until discontinued starting 2023 [facility] Comment on above: Daily until discontinued starting 2023 End: 12-30-2022 Intermittent pulse oximetry Pulse Oximetry Spot Check Respiratory Care Routine One Time for 1 Occurrences starting 12/30/2022 until 12/30/2022 [facility] Phone: Comment on above: One Time for 1 Occurrences starting 12/05 until 12/30/2022 End: 03-25-2022 Nuclear Ab [Titer] in Serum by Immunofluorescence [facility] Phone: Comment on above: 1 Occurrences starting 03/25/2022 until 03/25/2022 Oxygen therapy [[facility] Data Set] Initiate Oxygen Therapy Protocol Respiratory Care Routine As Needed until discontinued starting 12/30/2022 [facility] Phone: Comment on above: As Needed until discontinued starting End: 2023 Portable XR Chest AP single view [facility] Comment on above: Once for 1 Occurrences starting 10/10/19 until 2023 End: 09-18-2023 RF Unspecified body region Views during [facility] Comment on above: One Time for 1 Occurrences starting 09/05 until 09/18/2023 Stress test, lexiscan Stress kendra t, lexiscan Cardiac Services Routine 12/31/2022 3:03 PM EDT [facility] Phone: Vibratory Airway Clearance Vibra tory Airway Clearance Respiratory Care Routine Every 1hr while awake until discontinued starting 12/30/2022 [facility] Phone: Comment on above: Every 1hr while awake until discontinued starting 12/30/2022 End: 03-25-2022 Vitamin B12 & Folate [facility] Phone: Comment on above: 1 Occurrences starting 03/25/2022 until 03/25/2022 XR CHEST PORTABLE XR CHEST HEDY BLE Imaging STAT 06/14/2019 10:43 AM EDT [employer]- [place], [place] Payers Date Payer Category Payer Unknown 2023 Unknown [id number] 2022 Unknown [id number] 2021 Unknown [id number] 2021 Unknown [id number] 2019 Private Health Insurance [facility] [id number] 2019-Present [phone] [address] [place] [address] [id number] .[id number] 2019 Private Health Insurance [employer] xxxxxxxxxx 2019-Present [phone] [address] [place] [address] xxxxxxxxxx [id number] .7.3.982086.315 2016 Unknown [id number] 2014 Unknown [id number] 1.2.840.173475.1.13.239.2 .7.3.700119.315 1960 Unknown [id number] 2.16.840.1.042665.3.579.2 .727 1960 Unknown [id number] 2.16.840.1.432053.3.579.2 .727 1960 Unknown [id number] 2.16.840.1.280977.3.579.2 .727 1960 Unknown [id number] 2.16.840.1.521107.3.579.2 .727 1960 Unknown [id number] 2.16.840.1.266702.3.579.2 .593 1960 Unknown [id number] 2.16.840.1.016569.3.579.2 .593 1960 Unknown [id number] 2.16.840.1.217210.3.579.2 .593 1960 Unknown [id number] 2.16.840.1.003875.3.579.2 .593 1960 Unknown [id number] 2.16.840.1.785355.3.579.2 .593 1960 Unknown [id number] 2.16.840.1.682186.3.579.2 .593 1960 Unknown [id number] 2.16.840.1.730462.3.579.2 .593 1960 Unknown [id number] 2.16.840.1.541769.3.579.2 .593 1960 Unknown [id number] 2.16.840.1.276814.3.579.2 .593 1960 Unknown [id number] 2.16.840.1.912714.3.579.2 .593 1960 Unknown [id number] 2.16.840.1.506694.3.579.2 .593 1960 Unknown [id number] 2.16.840.1.483210.3.579.2 .593 1960 Unknown [id number] 2.16.840.1.904868.3.579.2 .593 1960 Unknown [id number] 2.16.840.1.608124.3.579.2 .593 1960 Unknown [id number] 2.16.840.1.281455.3.579.2 .593 1960 Unknown [id number] 2.16.840.1.380441.3.579.2 .593 1960 Unknown [id number] 2.16.840.1.449375.3.579.2 .593 1960 Unknown [id number] 2.16.840.1.916626.3.579.2 .593 1960 Unknown [id number] 2.16.840.1.838026.3.579.2 .593 1960 Unknown [id number] 2.16.840.1.108902.3.579.2 .593 1960 Unknown [id number] 2.16.840.1.308599.3.579.2 .983 1960 Unknown [id number] 2.16.840.1.491375.3.579.2 .983 1960 Unknown [id number] 2.16.840.1.638657.3.579.2 .983 1960 Unknown [id number] 2.16.840.1.888871.3.579.2 .983 1960 Unknown [id number] 2.16.840.1.334967.3.579.2 .983 1960 Unknown [id number] 2.16.840.1.642907.3.579.2 .983 1960 Unknown [id number] 2.16.840.1.603837.3.579.2 .983 1960 Unknown [id number] 2.16.840.1.706267.3.579.2 .983 1960 Unknown [id number] 2.16.840.1.251255.3.579.2 .983 1960 Unknown [id number] 2.16.840.1.222172.3.579.2 .983 1960 Unknown [id number] 2.16.840.1.506404.3.579.2 .983 1960 Unknown [id number] 2.16.840.1.370456.3.579.2 .983 1960 Unknown [id number] 2.16.840.1.717178.3.579.2 .983 1960 Unknown [id number] 2.16.840.1.543988.3.579.2 .983 1960 Unknown [id number] 2.16.840.1.930053.3.579.2 .173 1960 Unknown [id number] 2.16.840.1.681245.3.579.2 .173 1960 Unknown [id number] 2.16.840.1.250145.3.579.2 .1259 1959 Unknown [id number] 1.2.840.552976.1.13.239.2 .7.3.194590.315 1959 Unknown [id number] Social History Date Type Detail Facility Start: 06-14-2019 End: 12-30-2022 Tobacco smoking status NHIS Never smoker [facility] Start: 06-14-2019 End: 12-30-2022 Alcohol intake Yes [place] Start: 06-14-2019 Alcohol Comment not every day [place] Start: 1960 Sex Assigned At Not on file [place] Start: 09-12-2019 End: 12-30-2022 Alcohol intake Current drinker of alcohol (finding) [place] Start: 07-18-2020 End: 12-30-2022 Tobacco use and exposure Never used [place] Start: 03-15-2022 End: 12-30-2022 Exposure to SARS-CoV-2 (event) Not sure [employer] [place], [place] Start: 03-09-2021 End: 12-30-2022 Alcohol intake [facility] Tobacco smoking status Never Gener al Surgery Yessy Start: 12-30-2022 History SDOH Alcohol Frequency 5 [facility] Work Phone: Start: 12-30-2022 History SDOH Alcohol Std Drinks 2 [facility] Work Phone: Start: 09-09-2023 Alcohol Comment 3-4 BEERS DAILY [facility] How often to you hav e a drink containing alcohol? 4 or more times a week [facility] How many standard dr inks containing alcohol do you have on a typical day? 3 or 4 [facility] How often do you hav e 6 or more drinks on 1 occasion? Daily or almost daily [facility] Equipment Procedure Code Equipment Code Equipment Origin al Text Equipment Identifier Dates [employer] on System [id number] Start: 09-18-2023 Goals Date [...] prepare for safety after surgery. 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 Return to normal activity of house work/leisure/ADLs with post op therapy as ordered by surgeon if needed. Functional Status Date Assessment Result Facility 05-31-2022 Functional Status N/A [facility] stephanieangela Krishnamurthy Clinical Notes 02-21-2022 to 02-11-2024 Discharge InstructionsNursing Notes - Griselda Craig RN - 09/18/2023 2:38 PM ESTNursing Notes - Griselda Craig RN - 09/18/2023 2:38 PM ESTNursing Notes - Venecia Rivera RN - 09/18/2023 2:18 PM EST Note Date & Type Note Facility 02-11-2024 Note [place] [facility]iology - [place] [facility] Subjective Noel Alva is a 63 y.o. year old male patient being seen for 6 mo follow up CAD, hypertension, and hyperlipidemia. Had stress test and echo after last visit for pre-op clearance. Patient had routine labs w/ lipid panel in Nov 2023. Denies chest pain, SOB, and palpitations. C/o LE edema and lightheadedness upon standing. Had back surgery a few months ago and thinks he had some LE edema around that time also. Patient Active Problem List Diagnosis Acute gout of right wrist Atypical chest pain ASHD (arteriosclerotic heart disease) Dyslipidemia Intermittent claudication (CMS/HCC) Mild intermittent asthma without complication Paresthesia of upper limb Peripheral vascular disease (CMS/HCC) Primary hypertension S/P angioplasty with stent S/P cardiac cath Unstable angina (CMS/HCC) Viral syndrome Acute bronchitis due to other specified organisms Arthritis, gouty Chronic superficial gastritis without bleeding DDD (degenerative disc disease), lumbar Encounter for long-term current use of medication Iron deficiency anemia, unspecified Localized primary osteoarthritis of shoulder regions, bilateral Osteoarthritis of sacroiliac joint (CMS/HCC) Palpitations Vitamin D deficiency Family History Problem Relation Name Age of Onset Coronary artery disease Mother Coronary artery disease Father Social History Tobacco Use Smoking status: Never Smokeless tobacco: Never Substance Use Topics Alcohol use: Yes Comment: moderate HPI Noel is seen in follow-up. He is a 63 yo man with history of CAD s/p stenting of the LAD in 2004, echocardiogram in 2010 was within normal limits. He underwent cath at [facility] 01/12/2018 due to chest pain that showed minimal disease and patent LAD stent. He has hypertension on treatment. In the past he was having significant leg pain, limiting ambulation. He was investigated by ABIs, u/s that did not reveal significantly obstructive disease. In the past I added amlodipine for blood pressure control. He responded well. Previously I had stopped his atorvastatin due to leg pain and this did not help. He is currently taking atorvastatin 20 mg daily. Today he reports that he has been doing well. No chest pain no shortness of breath. He has been having bilateral lower extremity swelling for quite some time now. He also has symptoms of lightheadedness and dizziness upon standing. His blood pressure has been on the lower side. Review of Systems Cardiovascular: Positive for claudication, leg swelling and near-syncope. Musculoskeletal: Positive for arthritis, back pain, joint pain and myalgias. Genitourinary: Positive for frequency. Neurological: Positive for dizziness and light-headedness. All other systems reviewed and are negative. Objective Visit Vitals BP 102/64 (BP Location: Right arm, Patient Position: Standing) Pulse 59 Ht 1.676 m (5' 6 ) Wt 76.7 kg (169 lb) SpO2 93% BMI 27.28 kg/m??? Smoking Status Never BSA 1.89 m??? Physical Exam Constitutional: Appearance: He is well-developed. He is not ill-appearing. HENT: Head: Normocephalic and atraumatic. Nose: Nose normal. Eyes: General: No scleral icterus. Pupils: Pupils are equal, round, and reactive to light. Neck: Thyroid: No thyromegaly. Vascular: No JVD. Cardiovascular: Rate and Rhythm: Normal rate and regular rhythm. Pulses: Radial pulses are 2+ on the right side and 2+ on the left side. Heart sounds: Normal heart sounds. No murmur heard. No friction rub. No gallop. Pulmonary: Effort: Pulmonary effort is normal. No respiratory distress. Breath sounds: Normal breath sounds. No wheezing or rales. Chest: Chest wall: No tenderness. Abdominal: General: Bowel sounds are normal. There is no distension. Palpations: Abdomen is soft. Tenderness: There is no abdominal tenderness. Musculoskeletal: General: No swelling. Cervical back: Neck supple. Right lower le+ Pitting Edema present. Left lower le+ Pitting Edema present. Skin: General: Skin is warm and dry. Neurological: General: No focal deficit present. Mental Status: He is alert and oriented to person, place, and time. Psychiatric: Mood and Affect: Mood normal. Behavior: Behavior is cooperative. Judgment: Judgment normal. Allergies No Known Allergies Medications Current Outpatient Medications: aspirin 81 mg chewable tablet, Chew 1 tablet every day by oral route., Disp: , Rfl: atorvastatin (Lipitor) 20 mg tablet, Take 1 tablet (20 mg) by mouth in the morning., Disp: 90 tablet, Rfl: 3 cholecalciferol (Vitamin D-3) 50 MCG (1999 UT) tablet, Take 1 tablet by mouth in the morning., Disp: , Rfl: ferrous sulfate 325 (65 Fe) MG tablet, Use 1 tablet in the mouth or throat 1 (one) time each day., Disp: , Rfl: isosorbide mononitrate ER (Imdur) 60 mg 24 hr tablet, Take 1 tablet (60 mg) by mouth in the morning. D (more content not included)... [facility] 2023 Hospital Discharge instructions Nadia Fitzpatrick MD [...] or concern. documented in this encounter [facility] 09-18-2023 Note #Cardiac risk strati fication -Stress [...] Normal diastolic function No significant valvular abnormalities [facility] 09-18-2023 Nurse Note Pt provided with discharge instructions. Pt Iv removed and belongings gathered. Pt was wheeled to car by surgery staff and driven home by family. [facility] 09-18-2023 Miscellaneous Notes Pt provided with [...] this time POST OPERATIVE/PROCEDURE NOTE Noel Alva ([id number]) SURGEON Surgeon(s) and Role: * Shaheen Chappell MD - Primary BRAILLE OPERATOR Marques ANESTHESIOLOGIST AIRCRAFT TOOL MAKER: Avinash Adams APRN-AIRCRAFT TOOL MAKER Student Nurse Fare Enforcement Officer: Amanda Murphy SURGICAL STAFF Forger Helper: Caryn Tineo RN Registered Nurse Tray Checker: Angeline Mohan RN Scrub Person: Luiza Calderon [...] 2023 12:13 PM documented in this encounter [facility] 09-18-2023 Nurse Note OT in with pt at this time [facility] 09-18-2023 History of Present illness Narrative [...] and can help during recovery) Primary Language [place] PRIOR LEVEL AM-PAC Activity Inpatient Short Form [...] LUE Assessment WFL Supine to Sit Mobility Lima Level: Supine->Sit contact guard assist Bed Features/Set-up: Supine->Sit Flat Skilled Rationale Verbal cues Skilled Intervention/Details: Supine->Sit pt reorted that he knew how to log roll but twisted to get up even with vcs and attempts to physically assist with proper technique Sit to Stand Transfer Lima Level: Sit->Stand contact guard assist Assistive Device: Sit->Stand 2 wheeled walker Skilled Rationale Hand placement;Verbal cues Skilled Intervention/Details: Sit->Stand pt pulling up on the walker with both hands- cues to push off Stand to Sit Transfer Lima Level: Stand->Sit stand-by assist Assistive Device: Stand->Sit [...] Dressing Intervention/Details assist with R sock Acute [facility] Acute [facility] Assessments Daily Activity Inpatient Short Form [facility] Daily Activity Inpatient Short Form Putting [...] Low (problem-focused assessments w/limited treatment options) 09/18/23 8543 Surgery Information RN Approved Intervention as tolerated [...] bed mobility & transfers with supervision to SC. He was provided education review with log [...] Completed? yes Therapist Information License # [id number] General Information Pertinent History of Current Problem The patient is a 62 year old male with sacroiliitis who underwent Right SI fixation. He was referred to physical therapy for post procedure education review & mobility. Jc Farmer, PT documented in this encounter [facility] 09-18-2023 Nurse Note Pt ambulating in [place] with PT without difficulty. [facility] 09-18-2023 Nurse Note PT in with pt at this time [facility] [employer] [facility] 09-18-2023 Nurse Note Discharge instructions provided, pt states understanding, including the sedentary activity as described, denies questions. [facility] 09-18-2023 Hospital Discharge instructions Venecia Rivera RN [...] take percocet prescribed by . Proceed with Catawba as prescribed by Dr. Chappell-when Catawba is completed, you may resume percocet from [...] this carefully. Please attend family, community and mandaen events as soon as possible after your [...] should be faxed. documented in this encounter [facility] 09-18-[address] Chappell in to see pt at this time [facility] 09-18-2023 Surgery Postoperative evaluation and management note POST OPERATIVE/PROCEDURE NOTE Noel lAva ([id number]) SURGEON Surgeon(s) and Role: * Shaheen Chappell MD - Primary BRAILLE OPERATOR Marques ANESTHESIOLOGIST AIRCRAFT TOOL MAKER: Avinash Adams APRN-AIRCRAFT TOOL MAKER Student Nurse Fare Enforcement Officer: Amanda Murphy SURGICAL STAFF Forger Helper: Caryn Tineo RN Registered Nurse Tray Checker: Angeline Mohan RN Scrub Person: Luiza Calderon [...] Chappell MD September 18, 2023 12:13 PM [facility] 08-14-2023 History of Present illness Narrative [facility] NOTE Chief Complaint Patient [...] does not smoke. He is managed by [facility] in [place]. He is receiving Percocet and Lyrica. Lyrica [...] every morning. Cholecalciferol (Vitamin D3) 50 MCG (1999 UT) [...] lids. There is no papilledema on fundoscopy. 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 Noel was seen today for new patient. Diagnoses and all orders for this visit: Hereditary and idiopathic peripheral neuropathy - HEMOGLOBIN A1C; Future - B12 & FOLATE; Future - VITAMIN B6; Future - MILENA AND PE, SERUM; Future Hyperreflexia - MRI SPINE CERVICAL WITHOUT CONTRAST; Future - MRI SPINE THORACIC WITHOUT CONTRAST; Future Nikhil Mohr MD 08/14/2023 documented in this encounter [facility] 08-13-2023 Note Cardiovascular Medic ine [facility] SUBJECTIVE Chief Complaint Patient presents with Coronary [...] his right hip with Dr. Chappell in [place]. Had labs in December 2022. history of CAD s/p stenting of the LAD in 2004, echocardiogram in 2010 was within normal limits. He underwent cath at [facility] 01/12/2018 due to chest pain that showed [...] ASHD (arteriosclerotic heart disease) Dyslipidemia Intermittent claudication ([facility]/HCC) Mild intermittent asthma without complication Paresthesia of upper limb Peripheral vascular disease ([facility]/HCC) Primary hypertension S/P angioplasty with stent [...] Mood and Affect (more content not included)... [facility] 08-13-2023 Note Patient here for 1 y [...] his right hip with Dr. Chappell in [place]. Had labs in December 2022. Review of Systems Cardiovascular: Positive for chest pain, claudication and dyspnea on exertion. Musculoskeletal: Positive for arthritis, back pain, joint pain and myalgias. Neurological: Positive for numbness. All other systems reviewed and are negative. [facility] 07-16-2023 History of Present illness Narrative Associated [...] therapy, medications, SI belt, therapeutic injections. Inadequate assisted relief from therapeutic injection. 100% relief while [...] therapy, medications, SI belt, therapeutic injections. Inadequate assisted relief from therapeutic injection. 100% relief while [...] findings. Additions if any: Jennie Hernandez MD, [facility] Orthopedics and Sports Medicine Lead Nuclear Medicine Technologist - [facility] documented in this encounter [facility] 07-16-2023 Instructions Eric Luu - 07/16/2023 [...] associated with corticosteroids. documented in this encounter [facility] 07-04-2023 History of Present illness Narrative [...] Topical creams Physical therapy? Done recently at [facility] Xrays? Lumbar spine 12/2022 done at [place], bilateral hips and pelvis 01/08/23 MRI? 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 Done recently at [facility] Xrays? Lumbar spine 12/2022 done at [place], bilateral hips and pelvis 01/08/23 MRI? 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 Additions if any: Jennie Hernandez MD, [facility] Orthopedics and Sports Medicine Lead Nuclear Medicine Technologist - [facility] documented in this encounter [facility] 06-10-2023 History of Present illness Narrative [...] findings. Additions if any: Jennie Hernandez MD, [facility] Lead Nuclear Medicine Technologist - [facility] documented in this encounter [facility] 05-19-2023 History of Present illness Narrative [...] Topical creams Physical therapy? Done recently at [facility] Xrays? Lumbar spine 12/2022 done at [place], bilateral hips and pelvis 01/08/23 MRI? 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 Done recently at [facility] Xrays? Lumbar spine 12/2022 done at [place], bilateral hips and pelvis 01/08/23 MRI? 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 Additions if any: Jennie Hernandez MD, [facility] Orthopedics and Sports Medicine Lead Nuclear Medicine Technologist - [facility] documented in this encounter [facility] 04-18-2023 History of Present illness Narrative [...] findings. Additions if any: Jennie Hernandez MD, [facility] Orthopedics and Sports Medicine Lead Nuclear Medicine Technologist - [facility] documented in this encounter [facility] 04-18-2023 Instructions Eric Luu - 04/18/2023 [...] associated with corticosteroids. 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 Noel may call the office with any questions or concerns. 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 Noel may call the office with any questions or concerns. Referrals:None Medications prescribed today: None Follow up plan: Sports US guided left sacroiliac joint injection with CLASSROOM COORDINATOR Complexity of problem(s): Mild Risk of [...] findings. Additions if any: Jennie Hernandez MD, [facility] Lead Nuclear Medicine Technologist - [facility] Health documented in this encounter [facility] 12-31-2022 History of Present illness Narrative Gold Plater reviewed discharge instructions with patient. No new [...] home following this hospitalization. Patient resides in [place] alone. He uses no DME and has no outside resources or services currently in place. 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 He is independent with all activities of [...] Priscilla, as his decision maker if needed. FAMILY PSYCHOLOGIST to monitor and assist with any further [...] Diagnostic Data: Complete Blood Count: Recent Labs 12/30/2261912/31/22 0630 WBC 10.1 6.8 RBC 4.34 4.33 HGB 13.8 13.5 HCT 39.6* 40.4* MCV 91.2 93.3 MCH 31.8 31.2 MCHC 34.8 33.4 RDW 13.5 13.9 PLT 189 190 MPV 9.9 10.1 Last 3 Blood Glucose: Recent Labs 12/30/22 0620 12/31/22 0630 GLUCOSE 113* 103* Comprehensive Metabolic Profile: Recent Labs 12/30/2261912/31/22 0630 NA 139 140 K 3.9 4.3 [...] Well developed, well nourished with no malnutrition Associate Professor Of Media Arts consult initiated Hospital Prophylaxis: DVT: Lovenox Stress Ulcer: H2 Sarah Disposition: Shared decision making: All test results, treatment options and disposition options were discussed with the patient today Social determinants of health that may impact management: none Code status: Full Code Disposition: Discharge plan is home [facility] Advanced Care Planning documentation: [x] I have [...] the patient's medical record. [DOES NOT SATISFY [facility] PERFORMANCE] Cece Villalobos APRN - SREEDHAR , AUTUMN, MEAT BONER AND SLICER-C Hospitalist Medicine 12/31/2022, 9:21 AM Associated attestation - Kendell Camacho MD - 12/31/2022 5:52 PM EDT Images from the original note were not included. [address], [place], [place], [address] Attestation Patient: Noel Alva Date of Admission: 12/30/2022 6:09 AM Hospital Day # 1 Date of Evaluation: 12/31/2022 I personally evaluated and examined the patient [id number] in conjunction with the PA/MEAT BONER AND SLICER and agree with the management and dispostition of the patient. Please see the PA/MEAT BONER AND SLICER's note for full details. My argueta findings [...] with the plan as outlined in the MEAT BONER AND SLICER/PA's note Disposition: Discharge plan is pending Please note that this chart was generated using voice recognition Dragon dictation software. Although every effort was made to ensure the accuracy of this automated operating room aide, some errors in operating room aide may have occurred. Kendell Camacho MD 12/31/2022 5:52 PM Gold Plater to bedside to complete morning assessment. Upon entry to room, pt sitting up in bed, respirations even and unlabored while on room air. Vitals obtained and assessment completed, see flow sheet for details. Dr Camacho at bedside, reviewed pts blood pressure medications with him, okay to hold Norvasc and Metoprolol this morning. Pt denies needs from writer technical publications at this time. Call light in reach. Care ongoing. Noted writer technical publications had not urinated yet this shift. When [...] bedside table are within reach, will monitor. Gold Plater offered meds to bed but patient declined. Echocardiogram/Doppler done at bedside. Instructed on policies and procedure. Spoke to Cece ELI, cristian for writer technical publications to correct home medications. Okay to add: protonix, iron, Mobic, Lisinopril, and Amlodipine. Cardiology consult called to office. When reviewing home medications it was noted that there were some differences in doses of medications. Called [facility] and clarified medications. Will update [...] reach. Care ongoing. documented in this [facility] Hospital Discharge instructions Ana Gutierres [...] cholesterol, low fat documented in this encounter [facility] Phone: 12-31-2022 Hospital course Narrative Discharge Summary [...] sharp in the left chest. No radiation. Sutton burning sensation when the chest pain subsided. [...] discharge home he will follow-up with his technology administrator in [place]. Consultants: Dr. Mohr, cardiology Procedures: Stress Test [...] (Neck pain) Vitamin D3 50 MCG (1999 [place]) Tabs STOP taking these medications dicyclomine 10 MG capsule Commonly known as: Bentyl Where to Get Your Medications These medications were sent to [facility] [address] [place] [address] [facility] [address] - P [phone] F [phone] [address] [address] [facility] [id number] atorvastatin 20 MG tablet Patient Instructions: Activity: activity as tolerated Diet: cardiac diet Wound Care: none needed Other: None Disposition: Discharge to Home Follow up: Patient will be followed by Romario Man MD in 1-2 weeks CORE MEASURES on Discharge (if applicable) BRITTNY/ARB in CHF: NA Statin in SC: NA ASA in SC: NA Statin in CVA: NA Antiplatelet in CVA: NA Total time spent on discharge services: 40 minutes Including the following activities: Evaluation and Management of patient Discussion with patient and/or surrogate about current care plan Coordination with Case Management and/or Reproduction Machine Loader Coordination of care with Consultants (if applicable) Coordination of care with Receiving Facility Physician (if applicable) Completion of DME forms (if applicable) Preparation of Discharge Summary Preparation of Medication Reconciliation Preparation of Discharge Prescriptions Signed: Cece Villalobos APRN - SREEDHAR, AUTUMN, MEAT BONER AND SLICER-C 12/31/2022, 5:06 PM Associated attestation - Kendell Camacho MD - 12/31/2022 5:53 PM EDT Images from the original note were not included. [address], [place], [place], [address] Attestation Patient: Noel Alva Date of Admission: 12/30/2022 6:09 AM Hospital Day # 1 Date of Evaluation: 12/31/2022 I personally evaluated and examined the patient [id number] in conjunction with the PA/MEAT BONER AND SLICER and agree with the management and dispostition of the patient. Please see the PA/MEAT BONER AND SLICER's note for full details. My argueta findings [...] care plan Coordination with Case Management and/or Reproduction Machine Loader Coordination of care with Consultants (if applicable) [...] this chart was generated using voice recognition [employer] dictation software. Although every effort was made to ensure the accuracy of this automated operating room aide, some errors in operating room aide may have occurred. Kendell Camacho MD 12/31/2022 5:53 PM documented in this encounter [employer] [employer] Work Phone: 11-14-2022 Note CONSULTATION CONSULTATION DATE: [...] or foot drop. 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 He did have to take two days off of work last week, which his very unlike him. He had trouble getting out of bed due to increased pain. He is prescribed Catawba 5/325 t.i.d., but due to pain, patient [...] radiculopathy, lumbar spondylosis. PLAN: Patient brought his Catawba in today for a pill count. We will change his medication to Percocet 5/325 t.i.d. and increase his Lyrica to 100 mg b.i.d. I did recommend a Neurosurgery referral, which the patient does agree to. We will send a referral to Dr. Shaheen Chappell at [facility] in [place]. We will continue to manage his medications at this time, and we will see him in the clinic in three months. Patient agrees with this plan. [facility] 10-16-2022 Note CONSULTATION CONSULTATION DATE: [...] use a cane. His current medications include Catawba 5/325 b.i.d. and Aleve p.r.n. He has [...] next three days, we will increase his Catawba 5/325 to t.i.d. We will start also [...] Patient does agree with this plan. [facility] 08-22-2022 Note CONSULTATION CONSULTATION DATE: [...] weakness. Medications include Mobic 15 mg daily, Catawba 5/325 b.i.d. and tizanidine 4 mg q.h.s. [...] a menthol rub. We will maintain his Catawba 5/325 b.i.d. and he was instructed to use Voltaren to hi right CMC joint. Patient agrees with the plan of care and will be followed up in the office thereafter. [facility] 06-26-2022 Note OPERATIVE NOTE OPERATION [...] in good condition. CC: Romario Man M.D. [facility] 06-01-2022 Note Chief Complaint consultation for iron [...] BID, # 90 tab(s), Refills(s) 3, [facility], 167.6, cm, 05/31/22 14:31:00 EDT, Height/Length Dosing, 72.8, kg, 05/31/22 14:31:00 EDT, Weight Dosing 3. Hematemesis (K92.0: Hematemesis) see # 1 Ordered: pantoprazole, 40 mg = 1 tab(s), Oral, BID, # 90 tab(s), Refills(s) 3, [facility], 167.6, cm, 05/31/22 14:31:00 EDT, Height/Length Dosing, 72.8, kg, 05/31/22 14:31:00 EDT, Weight Dosing Follow-up No qualifying data available Problem List/Past Medical History Ongoing Asthma BMI 25.0-25.9,adult CAD in [place] artery DDD (degenerative disc disease), lumbar Depression Epigastric pain Gouty arthritis Hematemesis Iron deficiency anemia Vitamin D deficiency Historical No qualifying data Procedure/Surgical History Cardiac catheterization (2018), Cardiac catheterization (2006), Cataract extraction, Coronary artery stent, History of lumbar spine surgery. Medications albuterol HFA 90 mcg/inh MDI, 2 puff(s), Inhalation, q4hr, PRN aspirin 81 mg Chew Tab, 81 mg= 1 tab(s), Chewed, Daily atorvastatin 40 mg Tab, 40 mg= 1 tab(s), Oral, Bedtime Carafate 1 gram Tab, 1 gm= 1 tab(s), Oral, QIDACHS ferrous sulfate 325 mg or (more content not included)... [facility] Comment on above: Result Comment: Elec [...] procedure well with no overt complications. [facility] 05-30-2022 Note CONSULTATION CONSULTATION DATE: [...] Medications include Mobic 15 mg daily and Catawba 5/325 b.i.d. He does take tizanidine 4 [...] indicated. Patient agrees with this plan. [facility] 04-03-2022 Note CONSULTATION CONSULTATION DATE: [...] and his workup at the ER in [place] warranted no findings. Today, he reports consistent [...] mg q.h.s., Mobic 15 mg daily and Catawba 5/325 b.i.d. p.r.n. Activities such as standing, [...] clinic and heading straight to the lab. PSYCHIATRIC Signed and Approved by: JULIANE MASSEY . 04/04/2022 13:38:00 [facility] 02-21-2022 Note CONSULTATION CONSULTATION DATE: [...] Medications include Mobic 15 mg q. day, Catawba 5/325 b.i.d. and tizanidine 4 mg q.h.s., [...] cervical neuritis. PLAN: We will refill his Catawba today 5/325 b.i.d., p.r.n. We will move [...] followed up in the office post procedure. PSYCHIATRIC Signed and Approved by: JULIANE MASSEY . 02/25/2022 15:08:00 [facility] Evaluation + Plan note No data available for this section General Surgery [place] Evaluation note Diagnosis Acute gout of right wrist, unspecified cause- Primary documented in this encounter [employer] Phone: evaluation note* Diagnosis Chronic fatigue Other malaise and fatigue documented in this encounter [facility]N [facility]QUIER[facility] [employer] Phone: evaluation note* Diagnosis Atypical chest pain- Primary Other chest pain Chest pain, unspecified type Viral syndrome Unspecified viral infection, in conditions classified elsewhere and of unspecified site documented in this encounter [facility] [employer] Phone: evaluation note* Diagnosis Osteoarthritis of left sacroiliac joint- Primary Lumbar spondylosis Lumbosacral spondylosis without myelopathy Lower extremity numbness Disturbance of skin sensation documented in this encounter [facility]* Diagnosis Osteoarthritis of left sacroiliac joint documented in this encounter [facility]* Diagnosis Osteoarthritis of left sacroiliac joint- Primary Osteoarthritis of left sacroiliac joint documented in this encounter [facility]* Diagnosis Osteoarthritis of left sacroiliac joint- Primary Pain of left sacroiliac joint Disorders of sacrum Lumbar spondylosis Lumbosacral spondylosis without myelopathy documented in this encounter [facility]* Diagnosis Osteoarthritis of right sacroiliac joint- Primary Pain of right sacroiliac joint Disorders of sacrum Polyneuropathy Unspecified hereditary and idiopathic peripheral neuropathy Lower extremity numbness Disturbance of skin sensation Osteoarthritis of left sacroiliac joint Pain of left sacroiliac joint Disorders of sacrum Lumbar spondylosis Lumbosacral spondylosis without myelopathy documented in this encounter [facility]* Diagnosis Osteoarthritis of both sacroiliac joints- Primary Pain of both sacroiliac joints Disorders of sacrum Polyneuropathy Unspecified hereditary and idiopathic peripheral neuropathy documented in this encounter [facility]* Diagnosis Osteoarthritis of both sacroiliac joints Pain of both sacroiliac joints Disorders of sacrum documented in this encounter [facility]* Diagnosis Osteoarthritis of both sacroiliac joints- Primary Pain of both sacroiliac joints Disorders of sacrum Osteoarthritis of both sacroiliac joints Pain of both sacroiliac joints Disorders of sacrum documented in this encounter [facility]* Diagnosis Hereditary and idiopathic peripheral neuropathy- Primary Unspecified hereditary and idiopathic peripheral neuropathy Hyperreflexia Abnormal reflex documented [facility] this [facility] Diagnosis Sacroiliitis- Primary Sacroiliitis, not elsewhere classified documented in this encounter [facility]* Diagnosis Viral illness- Primary Unspecified viral infection, in conditions classified elsewhere and of unspecified site documented in this encounter [facility]* Attachments The following attachments cannot be sent through Care Everywhere. * Gout ([place]) [facility] [employer] Work Phone: Hospital Discharge instructions No data available for this section General Surgery [place] Progress note No data available for this section General Surgery [facility] Reason for referral (narrative)* Consultation (Routine) - Auth Not Needed Specialty Diagnoses / Procedures Referred By Anni antonio Referred To Contact Neurology Diagnoses Polyneuropathy Jennie Hernandez MD [address] [place] [phone] Nikhil Mohr MD [address] [place] [address] Referral ID Status Reason Start Date Expiration Date V isits Requested Visits Authorized [id number] Auth Not Needed 06/10/2023 07/04/2024 1 1 * Radiology (Routine) - New Request Specialty Diagnoses / Procedures Referred By [facility] Referred To Contact Diagnoses Osteoarthritis of left sacroiliac joint Pain of left sacroiliac joint Procedures US IMAGING FOR ORTHO Jennie Hernandez MD [address] [place] [address] Referral ID Status Reason Start Date Expiration Date V isits Requested Visits Authorized [id number] New Request 06/10/2023 07/04/2024 1 1 [facility] Consultation (Routine) - Schedule Outgoing - Transfer of Care Specialty Diagnoses / Procedures Referred By Contac t Referred To Contact Neurologic Surgery Diagnoses Osteoarthritis of both sacroiliac joints Pain of both sacroiliac joints Jennie Hernandez MD [address] [place] [address] [place] [address] Referral ID Status Reason Start Date Expiration Date V isits Requested Visits Authorized [id number] Schedule Outgoing - Transfer of Care 07/16/2023 08/09/2024 1 1 * Radiology (Routine) - New Request Specialty Diagnoses / Procedures Referred By Contac t Referred To Contact Diagnoses Osteoarthritis of both sacroiliac joints Pain of both sacroiliac joints Procedures US IMAGING FOR ORTHO Jennie Hernandez MD [address] [place] [address] Referral ID Status Reason Start Date Expiration Date V isits Requested Visits Authorized [id number] New Request 07/16/2023 08/09/2024 1 1 [facility] (Routine) Specialty Diagnoses / Procedures Referred By Anni t Referred To Contact [facility] [address] [place] [address] Referral ID Status Reason Start Date Expiration Date Visits Re quested Visits Authorized [facility] Summary Purpose Family History No Family History Records FoundNo Family History Records FoundNo Family History Records FoundNo Family History Records FoundNo Family History Records FoundNo Family History Records FoundNo Family History Records FoundNo Family History Records FoundNo Family History Records FoundNo Family History Records Found Advance Directives No Advanced Directives Records FoundDocuments on File Type Date Recorded Patient Fitting Supervisor Expl anation Advance Directives and Living Will Power of Time Study Engineer Latest Code Status on File Code Status Date Activated Date Inactivated Comments Full Code 01/12/2018 8:34 PM 01/13/2018 3:53 PM Full Code 01/10/2018 3:36 PM 01/12/2018 8:34 PM Documents on File Type Date Recorded Patient Fitting Supervisor Expl anation ACP-Advance Directive ACP-Power of Time Study Engineer Documents on File Type Date Recorded Patient Fitting Supervisor Expl anation ACP-Advance Directive ACP-Power of Time Study Engineer Latest Code Status on File Code Status [...] sent through Care Everywhere. * Chest Pain ([place]ican) * Back Pain ([place]) * Shoulder Pain ([place]) documented in this encounter* Instructions* Justice Shaver [...] sent through Care Everywhere. * Neck Spasm ([place]) documented in this encounter* Attachments The following attachments cannot be sent through Care Everywhere. * Abdominal Pain ([place]) * Acid-Reducing Medicines: General Info ([place]ican) documented in this encounter Assessments Diagnosis Chronic [...] diseases (HCC) Procedures VL DUP CAROTID BILATERAL YoselinLisa neal, CERTIFIED HOME HEALTH AIDE - CAMPGROUND HAND [address] [place] [address] Specialty Diagnoses / Procedures Referred By Contac t Referred To Contact Diagnoses Lower extremity numbness Procedures EMG & NERVE CONDUCTION Jennie Hernandez MD [address] [place] [phone] Jw Cee MD [address] [place] [phone] Referral ID Status Reason Start Date Expiration Date V isits Requested Visits Authorized [id number] Pending Review 02/25/2023 03/21/2024 1 1 Specialty Diagnoses / Procedures Referred By Contac t Referred To Contact Diagnoses Osteoarthritis of left sacroiliac joint Procedures US IMAGING FOR ORTHO Jennie Hernandez MD [address] [place] [address] Referral ID Status Reason Start Date Expiration Date V isits Requested Visits Authorized [id number] New Request 04/18/2023 05/12/2024 1 1 Specialty Diagnoses / Procedures Referred By Contac t Referred To Contact Diagnoses Osteoarthritis of both sacroiliac joints Pain of both sacroiliac joints Procedures US IMAGING FOR ORTHO Jennie Hernandez MD [address] [place] [address] Referral ID Status Reason Start Date Expiration Date V isits Requested Visits Authorized [id number] New Request 07/16/2023 08/09/2024 1 1 Specialty Diagnoses / Procedures Referred By Contac t Referred To Contact Diagnoses Hyperreflexia Procedures MRI SPINE THORACIC WITHOUT CONTRAST [place] MRI, DORSAL SPINE Nikhil Mohr MD [address] [place] [address] Referral ID Status Reason Start Date Expiration Date V isits Requested Visits Authorized [id number] New Request 08/14/2023 09/07/2024 1 1 Specialty Diagnoses / Procedures Referred By Anni antonio Referred To Contact Diagnoses Hyperreflexia Procedures MRI SPINE CERVICAL WITHOUT CONTRAST [place] MRI, CERV SPINE Nikhil Mohr MD [address] [place] [address] Referral ID Status Reason Start Date Expiration Date V isits Requested Visits Authorized [id number] New Request 08/14/2023 09/07/2024 1 1 Additional Source Comments (unrecognized sect ion and content) No Status Records FoundNo Status Records FoundNo Status Records FoundNo Status Records FoundNo Status Records FoundNo Status Records FoundNo Status Records FoundNo Status Records FoundNo Status Records FoundNo Status Records Found INFORMATION SOURCE (unrecogn ized section and content) DATE CREATED AUTHOR 03/26/2018 [facility] DATE CREATED AUTHOR AUTHOR'S ORGANIZ ATION 03/26/2018 [facility] DATE CREATED AUTHOR AUTHOR'S ORGANIZ ATION 07/11/2022 [facility] DATE CREATED AUTHOR AUTHOR'S ORGANIZ ATION 01/18/2023 [facility] DATE CREATED AUTHOR AUTHOR'S ORGANIZ ATION 04/15/2023 [facility] DATE CREATED AUTHOR AUTHOR'S ORGANIZ ATION 07/18/2023 [facility] DATE CREATED AUTHOR AUTHOR'S ORGANIZ ATION 09/22/2023 [facility] DATE CREATED AUTHOR AUTHOR'S ORGANIZ ATION [facility] DATE CREATED AUTHOR AUTHOR'S ORGANIZ ATION [facility]/25/2023 [facility] DATE CREATED AUTHOR AUTHOR'S ORGANIZ ATION 02/13/2024 [facility] Reason for Visit (unrecogniz ed section and content) Reason Comments Shoulder Pain ongoing for past wee k worse today Neck Pain worse today Chest Pain ongoing for one week worse today Reason Comments Neck Pain burning/shooting kalen n, BL posterior neck. REcent nerve procedure with pain management. Out of Catawba for 2 days. Reason Comments Flank Pain pt staes bilateral f alnk pain, onset Friday Status Reason Specialty Diagnoses / Procedures Referred By Contact Referred To Contact Authorized Stress Lab Diagnoses Atherosclerotic heart disease of [place] coronary artery without angina pectoris Procedures HC NM LEXISCAN STRESS W NUC HC NM SEST. REST STRESS MULT [id number] NM STRESS Lisa Wyatt, CERTIFIED HOME HEALTH AIDE - CAMPGROUND HAND [address] [place] [address] [facility] Stress Lab [address] [place] [address] Status Reason Specialty Diagnoses / Procedures Referre d By Contact Referred To Contact Closed Vascular Lab Diagnoses Other specified peripheral vascular diseases Procedures EXTRACRANIAL BILAT STUDY 54925 CAROTIDS Lisa Wyatt, CERTIFIED HOME HEALTH AIDE - [employer]AMPGROUND HAND [address] [place] [address] [facility] Vascular Lab [address] [place] [address] Status Reason Specialty Diagnoses / Procedures Referred By Contact Referred To Contact Closed Stress Lab Diagnoses Atherosclerotic heart disease of [place] coronary artery without angina pectoris Procedures HC NM LEXISCAN STRESS W NUC HC NM SEST. REST STRESS MULT 79128 NM STRESS Lisa Wyatt, CERTIFIED HOME HEALTH AIDE - CAMPGROUND HAND [address] [place] [address] [facility] Stress Lab [address] [place], [place] [id number] Reason Comments Wrist Pain Right, onset last [...] pain, unspecified type Kendell Camacho MD [address] [place] [address] [facility] [address] [place] [address] Referral ID Status Reason Start Date Expiration Date Visits Re quested Visits Authorized [id number] 1 1 Reason Comments Pain New Patient Specialty Diagnoses / Procedures Referred By Contac t Referred To Contact Diagnoses Osteoarthritis of left sacroiliac joint Procedures US IMAGING FOR ORTHO Jennie Hernandez MD [address] [place] [address] Referral ID Status Reason Start Date Expiration Date V isits Requested Visits Authorized [id number] New Request 04/18/2023 05/12/2024 1 1 Reason Comments Pain Joint Injection Reason Comments Pain Follow-up Reason Comments Pain Specialty Diagnoses / Procedures Referred By Contac t Referred To Contact Diagnoses Osteoarthritis of both sacroiliac joints Pain of both sacroiliac joints Procedures US IMAGING FOR ORTHO Jennie Hernandez MD [address] [place] [address] Referral ID Status Reason Start Date Expiration Date V isits Requested Visits Authorized [id number] New Request 07/16/2023 08/09/2024 1 1 Reason Comments Pain Right Sacroiliac laurent nt Follow-up Right Sacroiliac laurent nt Joint Injection Right Sacroiliac laurent nt Reason Comments New Patient bilateral lower limb polyneuropathy Specialty Diagnoses / Procedures Referred By Contac t Referred To Contact Neurology Diagnoses Polyneuropathy Jennie Hernandez MD [address] [place] [address] Nikhil Mohr MD [address] [place] [address] Referral ID Status Reason Start Date Expiration Date Visits Re quested Visits Authorized [id number] Closed 06/10/2023 07/04/2024 1 1 Specialty Diagnoses / Procedures Referred By Contac t Referred To Contact Diagnoses Sacroiliitis Sacroiliitis [M46.1] Procedures AZ ARTHRODESIS SACROILIAC JOINT PERCUTANEOUS CHG FLUOROSCOPY UP TO 1 HOUR PHYSICIAN/QHP TIME [place] IMPLANT/INSERT DEVICE, NOC PROSTHETIC IMPLANT NOS ARTHRODESIS SACROILIAC JOINT MINIMALLY INVASIVE W/ TRANSFIXING DEVICE FLUOROSCOPY IN OR Shaheen Chappell MD [address] [place] [address] Referral ID Status Reason Start Date Expiration Date Visits Re quested Visits Authorized [id number] 09/11/2023 1 1 Reason Comments Influenza Symptoms [...] RN) 0847 (Given - Provider: Corrie Ibarra RN)2099 (Due) pregabalin (LYRICA) capsule 50 mg 50 mg, Oral, 2 TIMES DAILY, First dose (after last modification) on Fri12/30/22 at 1400, Until Discontinued 144 (Given - Provider: Corrie Ibarra RN)2101 (Given - Provider: Monalisa Hudson RN) 0846 (Given - Provider: Corrie Ibarra RN)2099 (Due) sodium chloride flush 0.9 % injection [...] Midline or Central Line = 20 mL/lumen 2101 (Given - Provider: Monalisa Hudson RN) 0846 (Given - Provider: Corrie Ibarra RN)2099 (Due) PRN Medication Order 12/29/2022 12/30/2022 12/31/2022 [...] Order 09/16/2023 09/17/2023 09/18/2023 BUPivacaine-EPINEPHrine (MARCAINE;SENSORCAINE-MPF) 0.5% -1:161101 injection (CANCELED) NEEDED, Starting on Debbie 09/18/23 at 1144, Until Debbie 09/18/23 at 1228, Intra-op/Intra-Proc 1144 (Given - Provid er: Shaheen Chappell MD) ceFAZolin (ANCEF) 2 g in dextrose 100 mL premix IVPB (COMPLETED) 2 g, Intravenous, Administer over 30 Minutes, FIRESETTER TO PROCEDURE, 1 dose, Starting on Debbie [...] Care Teams (unrecognized sec tion and content) Cable Tool Operator Relationship Specialty Start Date End Date Romario Man MD [address] [place] [address] PCP - General Family Medicine 06/14/19 Cable Tool Operator Relationship Specialty Start Date End Date Romario Man MD [address] [place] [address] PCP - General Family Medicine 06/14/19 Cable Tool Operator Relationship Specialty Start Date End Date Romario Man MD [address] [place] [phone] PCP - General Family Medicine 04/18/23 Cable Tool Operator Relationship Specialty Start Date End Date Romario Man MD [address] [place] [phone] PCP - General Family Medicine 04/18/23 Cable Tool Operator Relationship Specialty Start Date End Date Naderer, Romario, MD [address] [place] [phone] [facility] 04/18/23 Cable Tool Operator Relationship Specialty Start Date End Date Romario Man MD [address] [place] [address] [facility] 04/18/23 Cable Tool Operator Relationship Specialty Start Date End Date Romario Man MD [address] [place] [phone] [facility] 04/18/23 Cable Tool Operator Relationship Specialty Start Date End Date Romario Man MD [address] [place] [phone] PCP [facility] 04/18/23 Cable Tool Operator Relationship Specialty Start Date End Date Romario Man MD [address] [place] [phone] PCP [facility] 04/18/23 Cable Tool Operator Relationship Specialty Start Date End Date Romario Man MD [address] [place] [phone] PCP [facility] 04/18/23 Cable Tool Operator Relationship Specialty Start Date End Date Romario Man MD [address] [place] [address] PCP - General Family [facility] 06/14/19 FOR RECORDS PERTAINING TO PATIENTS WHO [...] BE BASED ON THE PRIMARY CLINICAL RECORDS. [facility] [employer] [facility]. provides no warranty or guarantee of the accuracy or completeness of information in this document.
== END 2024-02-19 16:12 | disposition home or self-care (01) ==
LOC: RAD 16:12
PROVIDERS: PCP Family Medicine; Visit Provider Nurse Practitioner
DX: M25.511 Pain in right shoulder (principal); M25.512 Pain in left shoulder; M19.012 Primary osteoarthritis, left shoulder; M19.011 Primary osteoarthritis, right shoulder
CPT/HCPCS: 73030

== ENCOUNTER 2024-03-15 06:52 | Day surgery (SDC) | payer OTHER, SELFPAY ==
--- OUTSIDE RECORDS SUMMARY | 2024-03-15 06:55 | XMS_ITS ---
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 Name Role Phone PHYSICIAN, DEFAULT Unavailable Unavailable PHYSICIAN, DEFAULT Unavailable Unavailable PHYSICIAN, DEFAULT Unavailable Unavailable PHYSICIAN, DEFAULT Unavailable Unavailable AHMAD, SHOWKAT Unavailable Unavailable AHMAD, SHOWKAT Unavailable Unavailable REINMELVI CARREON Unavailable Unavailable CANTU, MARY Unavailable Unavailable KAKIRILL AMEER Unavailable Unavailable Magda, Romario Bloom Primary Care Provider Magda, Romario Bloom Primary Care Provider Romario Mna MD Primary Care Provider MAGDA, ROMARIO Primary Care Physician MAGDA PROVIDER, ROMARIO Referring Unavailab Julian Kelly Attending Unavailable NILL, Julian Davis Attending Unavailable NILL, Julian Davis Attending Unavailable NILL, Julian Davis Attending Unavailable NADERER PROVIDER, ROMARIO Referring Unavailab hemant Man MD, Romario Bloom Primary Care Provider MASSEY ., JULIANE Consulting Unavailable MASSEY ., JULIANE Admitting Unavailable MASSEY ., JULIANE Attending Unavailable NADERESusan, DR ROMARIO Waddell Primary Care Unavailable NADERER, DR ROMARIO Waddell Primary Care Unavailable SIEGAL, SHAHEEN Admitting Unavailable SIEGAL, SHAHEEN Attending Unavailable MASSEY ., JULIANE Admitting Unavailable MASSEY ., JULIANE Attending Unavailable ZITAIER, DR PEDRO PABLO Davsi Consulting Unavailable NADERER, DR ROMARIO Waddell Primary Care Unavailable MASSEY ., JULIANE Consulting Unavailable NADERER, DR ROMARIO Waddell Admitting Unavailable NADERER, DR [...] IBRAHIM ., DR NELSON Neal Consulting Unavailable DRIVER, KAREEM Consulting Unavailable IBRAHIM ., DR NELSON Neal [...] Davis Consulting Unavailable SIEGAL, SHAHEEN Admitting Unavailable SIEGALSHAHEEN Attending Unavailable NADERER, DR ROMARIO Waddell Primary [...] Unavailab Romario Morse MD Primary Care Provider HERNANDEZ, JENNIE S Referring [...] Referring Unavailable HERNANDEZ, JENNIE S Attending Unavailable [facility] Primary Care Unavailable SELF, [...] Primary Care Provider ROMARIO MAN Primary Care UnavailFANY Toney Consulting Unavailable MARYOBKENDELL Admitting Unavailable JANICE, KENDELL Attending Unavailable NADIA FITZPATRICK Attending Unavailable ROMARIO MANONY Primary Care Unavailabl e NADERER, ROMARIO Attending Unavailable DAVIDSON SHARP Attending Unavailable ELIEL OROPEZA Attending Unavailable Allergies Allergy Classification Reported Allergen(s) Allergy Type Date of Onset Reaction(s) Facility (1 source) No Known Medication Allergies; Translations: [No Known Medication Allergies] Propensity to adverse reactions (disorder) [facility] Repository Encounters Encounter Date Encounter Type Care Provider Facility Start: 02-11-2024 End: 02-11-2024 ambulatory ELIEL OROPEZA [facility] Start: 11-24-2023 End: 11-24-2023 ambulatory ROMARIO MAN Not Available Start: 2023 End: 2023 Emergency department patient visit [facility] Start: 2023 End: 2023 Emergency department patient visit Nadia Fitzpatrick MD Work Phone: [facility] Comment on above: Viral illness (Prima ry Dx) Start: 09-18-2023 End: 09-18-2023 [facility] Start: 09-18-2023 End: 09-18-2023 Subsequent hospital visit by physician Shaheen Chappell MD Work Phone: [facility] Comment on above: Sacroiliitis Start: 09-09-2023 [facility] Start: 09-09-2023 Encounter for other preprocedural examination [facility] Start: 08-27-[address] [facility] Start: 08-14-2023 End: 08-14-2023 Office outpatient new 45 minutes Nikhil Mohr MD Work Phone: [facility] Comment on above: 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); Hyperreflexia Start: 08-13-2023 End: 08-13-2023 ambulatory DAVIDSON [facility] Start: 08-13-2023 End: 08-13-2023 Encounter for other preprocedural examination DAVIDSON [facility] Start: 07-16-2023 ambulatory JENNIE Neal MARY [facility] Start: 07-16-2023 End: 07-16-2023 Subsequent hospital visit by physician Jennie Hernandez MD Work Phone: [facility] Procedure Images Comment on above: Arrived Start: 07-16-2023 End: 07-16-2023 Patient encounter procedure Jennie Hernandez MD Work Phone: [facility] Comment on above: 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); Pain of both sacroiliac joints Start: 07-04-2023 ambulatory JENNIE Neal MARY [facility] Start: 07-04-2023 End: 07-04-2023 Office outpatient visit 15 minutes Jennie Hernandez MD Work Phone: [facility] Comment on above: 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); Pain of both sacroiliac joints; Polyneuropathy Start: 06-10-2023 ambulatory JENNIE HERNANDEZ [facility] Start: 06-10-2023 End: 06-10-2023 Patient encounter procedure Jennie Hernandez MD Work Phone: [facility] Comment on above: Osteoarthritis of ri ght sacroiliac joint (Primary Dx); Pain of right sacroiliac joint; Polyneuropathy; Lower extremity numbness; Osteoarthritis of left sacroiliac joint; Pain of left sacroiliac joint; Lumbar spondylosis Start: 05-19-2023 ambulatory [facility] Start: 05-19-2023 End: 05-19-2023 Office outpatient visit 15 minutes Jennie Hernandez MD Work Phone: [facility] Comment on above: Osteoarthritis of le ft sacroiliac joint (Primary Dx); Pain of left sacroiliac joint; Lumbar spondylosis Start: 04-18-2023 ambulatory JENNIE HERNANDEZ [facility] Start: 04-18-2023 End: 04-18-2023 Patient encounter procedure Jennie Hernandez MD Work Phone: [facility] Comment on above: Osteoarthritis of le ft sacroiliac joint (Primary Dx) Start: 04-18-2023 End: 04-18-2023 Subsequent hospital visit by physician Jennie Hernandez MD Work Phone: [facility] Procedure Images Comment on above: Arrived Start: 04-15-[address] M[address] [facility] Start: 02-25-2023 ambulatory JENNIE HERNANDEZ [facility] Start: 02-25-2023 End: 02-25-2023 Office outpatient new 30 minutes Jennie Hernandez MD Work Phone: [facility] Comment on above: Osteoarthritis of le ft sacroiliac joint (Primary Dx); Lumbar spondylosis; Lower extremity numbness Start: 01-13-[address] ROMARIO MAN [facility] ity:[facility]1 Start: 01-08-2023 End: 01-09-[address] ROMARIO MAN Facility:[facility]1 Start: 12-30-2022 End: 12-31-2022 Evaluation and management of inpatient ROMARIO MAN [facility] Start: 12-30-2022 End: 12-31-2022 Evaluation and management of inpatient Rosa Garg DO Work Phone: [facility] Comment on above: [...] examination without abnormal findings DR ROMARIO MAN [facility] Start: 09-11-2022 End: 09-12-[address] ROMARIO MAN Facility:[facility]1 Start: 09-11-2022 End: 09-12-2022 Encounter for general adult medical examination without abnormal findings DR ROMARIO MAN Facility:[facility] Start: 08-22-2022 End: 08-22-[address] NELSON IBRAHIM . Facility:[facility] Start: 07-10-2022 End: 07-11-2022 ambulatory Julian DIAZ Facility:[facility] Start: 07-10-2022 End: 07-10-2022 Patient encounter procedure Julian Davis EMILY General Surgery Nill/Said [place] Start: 06-26-2022 End: 06-27-2022 ambulatory Julian DIZA Facility::[id number] Start: 06-24-2022 Encounter for preprocedural laboratory examination DR JULIAN DIAZ . [facility] Start: 06-22-2022 End: 06-23-[address] JULIAN DIAZ . Facility:[facility] Start: 06-22-2022 End: 06-23-2022 Encounter for preprocedural laboratory examination DR JULIAN DIAZ . Facility:[facility] Start: 05-31-2022 End: 06-01-2022 ambulatory ROMARIO MAN PROVIDER Facility:[facility] Start: 05-31-2022 End: 05-31-2022 Patient encounter procedure Julian DIAZ General Surgery Nill/Said Yessy Start: 05-30-2022 End: 05-31-[address] NELSON IBRAHIM . Facility:[facility] Start: 05-15-2022 ambulatory Julian DIAZ Facility :[facility] Start: 04-30-2022 End: 04-30-[address] NELSON IBRAHIM . Facility:[facility] Start: 04-23-2022 End: 04-23-[address] NELSON IBRAHIM . Facility:[facility] Start: 04-03-2022 End: 04-04-2022 ambulatory JLUIANE Acevedo Facility:[facility] Start: 03-25-2022 End: 03-25-2022 Subsequent hospital visit by physician Romario Man MD Work Phone: [facility] Laboratory Comment on above: Chronic fatigue Start: 03-12-2022 End: 03-13-[address] ROMARIO MAN Facility:[facility]1 Start: 03-12-2022 End: 03-12-[address] ROMARIO MAN Facility:[facility] Start: 02-21-2022 End: 02-22-[address] NELSON Acevedo Facility:[facility] Start: 02-05-2022 End: 02-05-[address] ROMARIO MAN Facility:[facility]1 Start: 03-09-2021 End: 03-09-2021 Emergency department patient visit Julian Dougherty MD [facility] Comment on above: Acute gout of right wrist, unspecified cause (Primary Dx) Start: 08-17-2020 End: 08-17-2020 Subsequent hospital visit by physician [facility] Cardiology Stress Room [facility] Stress Lab Comment on above: Arrived Start: 08-16-2020 End: 08-18-2020 Subsequent hospital visit by physician [facility] Vascular Imaging Room [facility] Vascular Lab Comment on above: Other specified lisette pheral vascular diseases (HCC) Start: 08-16-2020 End: 08-16-2020 Subsequent hospital visit by physician [facility] Stress Room [facility] Stress Lab Comment on above: Arrived Start: 07-18-2020 End: 07-18-2020 Emergency department patient visit Sebastian Carmichael Work Phone: [facility] Comment on above: Abdominal pain, epig astric (Primary Dx) Start: 09-12-2019 End: 09-12-2019 Emergency department patient visit Justice Shaver Work Phone: [facility] Comment on above: Trapezius muscle spa sm (Primary Dx) Start: 06-14-2019 End: 06-14-2019 Emergency department patient visit Pablolyubov Portillo Work Phone: [facility] Comment on above: Chronic pain of both shoulders (Primary Dx); Neck pain, chronic; Nonspecific chest pain Start: 01-29-2018 End: 01-30-2018 Ambulatory DEFAULT PHYSICIAN Facility:[facility] Start: 01-20-2018 End: 01-21-2018 Ambulatory DEFAULT PHYSICIAN Facility:[facility] Start: 01-10-2018 End: 01-13-2018 Evaluation and management of inpatient SOREN Dewitt [facility] Medical Equipment Procedure Code Equipment Code Equipment Origin al Text Equipment Identifier Dates Alok Valladaresi on System [id number] Start: 09-18-2023 Goals [...] prepare for safety after surgery. (Met today) Telephoner Goals: Independent core exercises for group home use to prevent reoccurrence. Return to normal activity of house work/leisure/ADLs with post op therapy as ordered by surgeon if needed. Medications Current Medications Medication Drug Class(es) Dates Sig (Normalized) Sig (Original) Acetaminophen (10 sources) Start: 12-30-2022 acetaminophen (TYLENOL) tablet 650 mg Start: 09-12-2019 take 2 tablets by mo [facility] every eight hours as needed for [...] tablet Start: 05-23-2022 take 1 tablet by alissa th twice daily Trout 5/325 Tab 1 tab(s), Oral, BID, Refill(s) [...] Start: 05-23-2022 take 1 tablet by alissa twice daily ferrous sulfate 325 mg oral [...] Start: 05-31-2022 take 1 tablet by alissa th twice daily Protonix 40 mg Tab-DR 40 mg = 1 tab(s), Oral, BID, # 90 tab(s), Refills(s) 3, Pharmacy: [id number], 167.6, cm, 05/31/22 14:31:00 EDT, [...] Start: 01-20-2023 take 1 capsule by mo [facility] twice daily Pregabalin 50 MG capsule [...] Fri12/30/22 at 1245, Until Discontinued, Pain Severe (7-10) [...] 1 tablet by mouth once daily aspirin, [id number], tablet Take 1 tablet by mouth daily. [...] injec tion 60 mg polyethylene glycol 3350 [id number] mg powder for oral solution (1 source) [...] needed 5-40 mL, IntraVENous, PRN, Starting on 12/30/22 at 1245, Until Discontinued, Line Care, After [...] 04-18-2023 triamcinolone (KENALOG-40) i njection 2 mL Payers Date Payer Category Payer Unknown 2023 Unknown [id number] 2022 Unknown [id number] 2021 Unknown [id number] 2021 Unknown [id number] 2019 Private Health Insurance [facility] [id number] 2019-Present [phone] [address] [place] [address] [id number] .[id number] 2019 Private Health Insurance GONZÁLEZ Bairon OLIVIA xxxxxxxxxx 2019-Present [phone] [address] [place] [address] xxxxxxxxxx [id number] .7.3.976937.315 2016 Unknown [id number] 2014 Unknown [phone] 1.2.840.442528.1.13.239.2 .7.3.269459.315 1960 Unknown [id number] 2.16.840.1.309491.3.579.2 .727 1960 Unknown [id number] 2.16.840.1.338265.3.579.2 .727 1960 Unknown [id number] 2.16.840.1.288462.3.579.2 .727 1960 Unknown [id number] 2.16.840.1.585428.3.579.2 .727 1960 Unknown [id number] 2.16.840.1.837360.3.579.2 .593 1960 Unknown [id number] 2.16.840.1.132252.3.579.2 .593 1960 Unknown [id number] 2.16.840.1.480173.3.579.2 .593 1960 Unknown [id number] 2.16.840.1.100808.3.579.2 .593 1960 Unknown [id number] 2.16.840.1.251324.3.579.2 .593 1960 Unknown [id number] 2.16.840.1.516427.3.579.2 .593 1960 Unknown [id number] 2.16.840.1.808240.3.579.2 .593 1960 Unknown [id number] 2.16.840.1.324492.3.579.2 .593 1960 Unknown [id number] 2.16.840.1.132261.3.579.2 .593 1960 Unknown [id number] 2.16.840.1.598424.3.579.2 .593 1960 Unknown [id number] 2.16.840.1.868898.3.579.2 .593 1960 Unknown [id number] 2.16.840.1.293515.3.579.2 .593 1960 Unknown [id number] 2.16.840.1.940240.3.579.2 .593 1960 Unknown [id number] 2.16.840.1.546352.3.579.2 .593 1960 Unknown [id number] 2.16.840.1.186734.3.579.2 .593 1960 Unknown [id number] 2.16.840.1.575744.3.579.2 .593 1960 Unknown [id number] 2.16.840.1.081317.3.579.2 .593 1960 Unknown [id number] 2.16.840.1.548761.3.579.2 .593 1960 Unknown [id number] 2.16.840.1.507171.3.579.2 .593 1960 Unknown [id number] 2.16.840.1.235158.3.579.2 .593 1960 Unknown [id number] 2.16.840.1.249276.3.579.2 .983 1960 Unknown [id number] 2.16.840.1.304150.3.579.2 .983 1960 Unknown [id number] 2.16.840.1.238096.3.579.2 .983 1960 Unknown [id number] 2.16.840.1.488442.3.579.2 .983 1960 Unknown [id number] 2.16.840.1.360229.3.579.2 .983 1960 Unknown [id number] 2.16.840.1.444432.3.579.2 .983 1960 Unknown [id number] 2.16.840.1.118282.3.579.2 .983 1960 Unknown [id number] 2.16.840.1.489873.3.579.2 .983 1960 Unknown [id number] 2.16.840.1.006779.3.579.2 .983 1960 Unknown [id number] 2.16.840.1.452977.3.579.2 .983 1960 Unknown [id number] 2.16.840.1.503799.3.579.2 .983 1960 Unknown [id number] 2.16.840.1.308062.3.579.2 .983 1960 Unknown [id number] 2.16.840.1.698411.3.579.2 .983 1960 Unknown [id number] 2.16.840.1.606782.3.579.2 .983 1960 Unknown [id number] 2.16.840.1.133209.3.579.2 .173 1960 Unknown [id number] 2.16.840.1.719970.3.579.2 .173 1960 Unknown [id number] 2.16.840.1.049775.3.579.2 .1259 1959 Unknown [id number] 1.2.840.466346.1.13.239.2 .7.3.518292.315 1959 Unknown [id number] Plan of Treatment Date Care Activity Detail Author Start: 07-01-2031 DTaP/Tdap/Td vaccine (3 - Td or Tdap) DTaP/Tdap/Td vaccine (3 - Td or Tdap) [facility] Start: 12-31-2025 Diabetes screen Diabetes screen [facility] Start: 2025 Pneumococcal 0-64 years Vaccine (3 - PPSV23 if available, else PCV20) Pneumococcal 0-64 years Vaccine (3 - PPSV23 if available, else PCV20) [facility] Start: 2025 Pneumococcal 0-64 years Vaccine (3 - PPSV23 or PCV20) Pneumococcal 0-64 years Vaccine (3 - PPSV23 or PCV20) [facility] Start: 01-01-2024 Lipid panel Lipids [facility] Start: 09-18-2023 End: 09-18-2023 Arthrodesis sacroiliac joint percutaneous ARTHRODESIS SACROILIAC JOINT MINIMALLY INVASIVE W/ TRANSFIXING DEVICE Sacroiliitis 09/18/2023 10:52 AM EST [facility] Start: 09-18-2023 End: 09-18-2023 Fluoroscopy up to 1 hour physician/qhp time FLUOROSCOPY IN OR Sacroiliitis 09/18/2023 10:52 AM EST [facility] Start: 08-14-2023 End: 08-14-2023 Patient encounter procedure 08/14/2023 2:45 PM EST Office Visit [facility] [address] [place] [address] Nikhil Mohr MD [address] [place] [address] [facility] Start: 08-14-2023 End: 08-14-2024 B12/folate level B12 & FOLATE Lab Routine Hereditary and idiopathic peripheral neuropathy Expected: 08/14/2023, Expires: 08/14/2024 [facility] Comment on above: Expected: 08/14/2023, Expires: Start: 08-14-2023 End: 08-14-2024 Hemoglobin A1c/Hemoglobin.total in Blood HEMOGLOBIN A1C Lab Routine Hereditary and idiopathic peripheral neuropathy Expected: 08/14/2023, Expires: 08/14/2024 [facility] Comment on above: Expected: 08/14/2023, Expires: 4 Start: 08-14-2023 End: 08-14-2024 MILENA AND PE, SERUM MILENA AND PE, SERUM Lab Routine Hereditary and idiopathic peripheral neuropathy Expected: 08/14/2023, Expires: 08/14/2024 [facility] Comment on above: Expected: 08/14/2023, Expires: 4 Start: 08-14-2023 End: 08-14-2024 MR Cervical spine WO contrast MRI SPINE CERVICAL WITHOUT CONTRAST Imaging Routine Hyperreflexia Expected: 08/14/2023, Expires: 08/14/2024 [facility] Comment on above: Expected: 08/14/2023, Expires: 4 Start: 08-14-2023 End: 08-14-2024 MR Thoracic spine WO contrast MRI SPINE THORACIC WITHOUT CONTRAST Imaging Routine Hyperreflexia Expected: 08/14/2023, Expires: 08/14/2024 [facility] Comment on above: Expected: 08/14/2023, Expires: Start: 08-14-2023 End: 08-14-2024 VITAMIN B6 VITAMIN B6 Lab Routine Hereditary and idiopathic peripheral neuropathy Expected: 08/14/2023, Expires: 08/14/2024 [facility] Comment on above: Expected: 08/14/2023, Expires: Start: 07-04-2023 End: 07-04-2023 Patient encounter procedure 07/04/2023 9:00 AM EDT Office Visit [facility] [address] [place] [address] Jennie Hernandez MD [address] [place] [address] [facility] Start: 06-10-2023 End: 06-10-2023 Patient encounter procedure 06/10/2023 10:00 AM EDT Office Visit [facility] [address] [place] [address] Jennie Hernandez MD [address] [place] [address] [facility] Start: 06-06-2023 COVID-19 Vaccine ( season) COVID-19 Vaccine ( season) [facility] Start: 06-06-2023 Influenza vaccination [facility] Start: 05-19-2023 End: 05-19-2023 Patient encounter procedure 05/19/2023 9:00 AM EDT Office Visit [facility] [address] [place] [address] Jennie Hernandez MD [address] [place] [address] [facility] Start: 05-06-2023 Influenza vaccination Flu vaccine (#1) [facility] Start: 04-18-2023 End: 04-18-2023 Patient encounter procedure 04/18/2023 12:40 PM EDT Office Visit [facility] [address] [place] [address] Jennie Hernandez MD [address] [place] [address] [facility] Start: 04-15-2023 End: 04-15-2023 Patient encounter procedure 04/15/2023 10:15 AM EDT Office Visit [facility] [address] [place] [address] Jw Cee MD [facility] [place] [address] [facility] Start: 03-25-2023 Hemoglobin A1c measurement A1C test (Diabetic or Prediabetic) [facility] Start: 02-25-2023 End: 02-26-2024 Electromyography EMG & NERVE CONDUCTION Neurology Routine Lower extremity numbness Expected: 02/25/2023, Expires: 02/26/2024 [facility] Comment on above: Expected: 02/25/2023, Expires: Start: 01-11-2023 Lipid screen Lipid screen [facility] [place] Start: 04-11-2022 End: 04-11-2022 Patient encounter procedure 04/11/2022 Office Visit Neurology Con Cowan MD [address] [place] [address] [place] [address] [facility] Start: 06-06-2021 Influenza vaccination Flu vaccine (Season Ended) [facility] Work Phone: Start: 01-10-2021 Diabetes screen Diabetes screen [facility] Start: 2020 Respiratory Syncytial Virus (RSV) or age 60 yrs+ (1 - 1-dose 60+ series) Respiratory Syncytial Virus (RSV) or age 60 yrs+ (1 - 1-dose 60+ series) [facility] Start: 08-17-2020 End: 08-17-2020 Appointment 08/17/2020 Appointment Stress Lab [facility] Start: 06-06-2020 Influenza vaccination Flu vaccine (#1) [place], [place] Start: 06-06-2019 Influenza vaccination Flu vaccine (#1) [place] Start: 01-11-2019 Lipid panel [facility] Start: 01-11-2019 Lipid screen Lipid screen [place] Start: 08-13-2018 Prostate specific antigen measurement Prostate Specific Antigen (PSA) Screening or Monitoring [facility] Start: 2010 Colon cancer screen colonoscopy Colon cancer screen colonoscopy [place], [place] Start: 2010 Prostate specific antigen measurement PROSTATE CANCER SCREENING DISCUSSION [facility] Start: 2010 Screening for malignant neoplasm of colon Colon cancer screen colonoscopy [place], [place] Start: 2010 Shingles Vaccine (1 of 2) Shingles Vaccine (1 of 2) [place] Start: 2010 Zoster vaccine hzv live for subcutaneous use ZOSTER (SHINGLES) VACCINE (1 of 2) [facility] Start: 2005 Screening for malignant neoplasm of colon [facility] Start: 2000 Lipid panel LIPID SCREENING [facility] Start: 1979 DTaP/Tdap/Td vaccine (1 - Tdap) DTaP/Tdap/Td vaccine (1 - Tdap) [place] Start: 1979 Third diphtheria, tetanus and acellular pertussis (DTaP) vaccination TDAP (ADULT) [facility] Start: 1978 Hepatitis C screening Hepatitis C screen [facility] Start: 1975 HIV screen HIV screen [place], [place] Start: 1975 HIV screening [facility] Start: 1972 COVID-19 Vaccine (1) COVID-19 Vaccine (1) [facility] Start: 1972 Depression Screen Depression Screen [facility] [employer] [facility] [employer] Start: 1971 DTaP/Tdap/Td vaccine (1 - Tdap) DTaP/Tdap/Td vaccine (1 - Tdap) [place], [place] Start: 1966 Pneumococcal 0-64 years Vaccine (1 of 1 - PPSV23) Pneumococcal 0-64 years Vaccine (1 of 1 - PPSV23) [place] Start: 1966 Pneumococcal 0-64 years Vaccine (1 of 2 - PPSV23) Pneumococcal 0-64 years Vaccine (1 of 2 - PPSV23) [facility] adjust Phone: Start: 04-09-1961 COVID-19 VACCINE (#1) COVID-19 VACCINE (#1) [employer] [facility] Start: 1960 Hepatitis C screen Hepatitis C screen [place], [place] Start: 1960 Hepatitis C screening [employer] Start: 1960 Tetanus vaccination TETANUS [facility] End: 01-02-2023 Basic Metabolic Panel w/ Reflex to MG Basic Metabolic Panel w/ Reflex to MG Lab Routine Daily for 3 Days starting 12/31/2022 until 01/02/2023, 1 completed [employer] Phone: Comment on above: Daily for 3 Days starting 12/31/2022 unt il 01/02/2023, 1 completed End: 01-02-2023 CBC W Auto Differential panel - Blood CBC with Auto Differential Lab Routine Daily for 3 Days starting 12/31/2022 until 01/02/2023, 1 completed [employer] Phone: Comment on above: Daily for 3 Days starting 12/31/2022 unt il 01/02/2023, 1 completed EKG 12 Lead EKG 12 Lead ECG STAT 06/14/2019 10:26 AM EDT [facility] [employer] [place] EKG 12 lead EKG 12 lead ECG Routine As Needed until discontinued starting 12/30/2022 [employer] Phone: Comment on above: As Needed until discontinued starting End: 03-25-2022 Hemoglobin A1c/Hemoglobin.total in Blood [employer] Phone: Comment on above: 1 Occurrences starting 03/25/2022 until 03/25/2022 End: 12-31-2022 Hemoglobin A1c/Hemoglobin.total in Blood Hemoglobin A1C Lab Routine Tomorrow AM for 1 Occurrences starting 12/31/2022 until 12/31/2022 [employer] Phone: Comment on above: Tomorrow AM for 1 Occurrences starting 0 12/31/2022 until 12/31/2022 Hemoglobin A1c/Hemoglobin.total in Blood Hemoglobin A1C Lab Routine 12/31/2022 6:30 AM EDT [employer] Phone: Initiate ED RT Bronc hospasm Protocol Initiate ED RT Bronchospasm Protocol Respiratory Care Routine Daily until discontinued starting 2023 [employer] Comment on above: Daily until discontinued starting 2023 End: 12-30-2022 Intermittent pulse oximetry Pulse Oximetry Spot Check Respiratory Care Routine One Time for 1 Occurrences starting 12/30/2022 until 12/30/2022 [employer] Phone: Comment on above: One Time for 1 Occurrences starting 12/05 until 12/30/2022 End: 03-25-2022 Nuclear Ab [Titer] in Serum by Immunofluorescence [employer] Phone: Comment on above: 1 Occurrences starting 03/25/2022 until 03/25/2022 Oxygen therapy [[facility] Data Set] Initiate Oxygen Therapy Protocol Respiratory Care Routine As Needed until discontinued starting 12/30/2022 [employer] Phone: Comment on above: As Needed until discontinued starting End: 2023 Portable XR Chest AP single view [employer] Comment on above: Once for 1 Occurrences starting 10/10/19 until 2023 End: 09-18-2023 RF Unspecified body region Views during surgery [facility] Comment on above: One Time for 1 Occurrences starting 09/05 until 09/18/2023 Stress test, lexiscan Stress kendra t, lexiscan Cardiac Services Routine 12/31/2022 3:03 PM EDT [employer] Phone: Vibratory Airway Clearance Vibra tory Airway Clearance Respiratory Care Routine Every 1hr while awake until discontinued starting 12/30/2022 [employer] Phone: Comment on above: Every 1hr while awake until discontinued starting 12/30/2022 End: 03-25-2022 Vitamin B12 & Folate [employer] Phone: Comment on above: 1 Occurrences starting 03/25/2022 until 03/25/2022 XR CHEST PORTABLE XR CHEST HEDY BLE Imaging STAT 06/14/2019 10:43 AM EDT [employer]HCAR[facility] Problems Active Problems Problem Classification Problem Date [...] Onset: 12-30-2022 Episodic Other aftercare (1 source) shelter (current) use of aspirin; Translations: [[facility] CURRENT USE OF ASPIRIN] Onset: 07-01-2022 Episodic Other aftercare (1 source) Other group home (current) drug therapy; Translations: [OTH [facility] CURRENT DRUG THERAPY] Onset: 07-01-2022 Episodic Other [...] Translations: [LOW BACK PAIN, UNSPECIFIED] Onset: 08-22-2022 Procedures Date Procedure Procedure Detail Performing Clinician Start: 2023 DOMINIQUEID-Sara, DARVIN Fitzpatrick MD Work Phone: Start: 2023 Iaadiadoo [...] MD Work Phone: Start: 12-31-2022 STRESS TEST, MRALEN Mohr MD Work Phone: Start: 12-31-2022 Rhythm ecg 1-3 leads w/interpretation & report Unknown Provider Result Start: 12-31-2022 Assay of troponin quantitative Cece Villalobos [facility] Work Phone: Start: 12-31-2022 BASIC METABOLIC PANEL W/ REFLEX TO MG FOR LOW K Cece Villalobos [facility] Work Phone: Start: 12-31-2022 Lipid panel Cece Villalobos [facility] Work Phone: Start: 12-31-2022 End: 12-31-2022 Ecg routine ecg w/least 12 lds w/i&r Cece Villalobos [facility] Work Phone: Start: 12-30-2022 Echo tthrc r-t 2d w/wom-mode compl spec&colr d Cece Villalobos [facility] Work Phone: Start: 12-30-2022 RESPIRATORY PANEL, MOLECULAR, WITH COVID-19 Cece Villalobos [employer] Work Phone: Start: 12-30-2022 Rhythm ecg 1-3 [...] on above: Performed By: #### HGBHCT #### [facility] [address] [place] [address] Dr. Raimundo Estrada Start: 06-26-2022 Colonoscopy Julian DIAZ Start: 06-26-2022 Esophagogastroduodenoscopy Julian DIAZ Start: 03-25-2022 Sedimentation rate rbc automated [place] Chapo DRUMMOND Work Phone: Start: 03-09-2021 Assay of blood/uric acid Julian Dougherty MD Start: 03-09-2021 Radex wrist complete minimum 3 views Julian Dougherty MD Start: 08-16-2020 Duplex scan extracranial art compl bi study Lisa Sherrie Wyatt Work Phone: Start: 07-18-2020 Assay of troponin quantitative Sebastian C rismaru Work Phone: Start: 07-18-2020 Radiologic exam chest single view Cipria n Crismaru Work Phone: Start: 07-18-2020 Ct abdomen & pelvis w/o contrast material Sebastian Carmichael Work Phone: Start: 07-18-2020 Ecg routine ecg w/least 12 lds w/i&r Sebastian Carmichael Work Phone: Start: 07-18-2020 EKG REPORT Hpf Scanning Start: 07-18-2020 Assay of lipase Sebastian Carmichael Work Phone: Start: 07-18-2020 Assay of troponin quantitative Sebastian C tushar Work Phone: Start: 07-18-2020 Blood count complete auto&auto difrntl wbc Sebastian Carmichael Work Phone: Start: 07-18-2020 Comprehensive metabolic panel Sebastian Cr isfarzana Work Phone: Start: 07-18-2020 Urinalysis microscopic only Sebastian yanes Work Phone: Start: 07-18-2020 Urnls dip stick/tablet rgnt auto w/o microscopy Sebastian Carmichael Work Phone: Start: 06-14-2019 Assay of [...] SIGNS SHOWKAT AHMAD Start: 01-12-2018 DIAGNOSTIC CARDIAC PRIMARY CARE PROVIDER PROCEDURE SHOWKAT AHMAD Start: 01-12-2018 APTT SHOWKAT [...] SHOWKAT AHMAD Start: 10-06-2017 Cardiac catheterization Julian HOWLELNola Start: 10-06-2005 Cardiac catheterization Julian HOWELLNola Coronary artery sten t (physical object) Julian HOWELLNola Extraction of cataract Robi DIAZ History of operative procedure on lumbar spinal structure Julian [employer] Results Test Name Value Interpretation Reference Range Facility Office Visiton 02-11-2024 Follow-up visit [id number] AlvaDorothea Vaca 1960 M Date Provider Department Center 02/11/2024 ELIEL ECKERT Family History Problem Relation Age of Onset Coronary artery disease Mother Coronary artery disease Father Family Status - Relation Status Age at Mother Father Level of Service:91900 HI OFFICE/OUTPATIENT ESTABLISHED MOD MDM 30 MIN Normal [facility] COVID-19, Rapidon 2023 SARS-CoV-2 (COVID-19) RdRp gene DAHLIA+probe Ql (Resp) Not detected Not Detected [facility] Comment on above: Rapid NAAT: The specimen [...] management decisions. Fact sheet for Healthcare Providers: https://www.fda.gov/media/481216/download Fact sheet for Patients: https://www.fda.gov/media/284928/download Methodology: Isothermal Nucleic Acid Amplification Specimen Description .NASOPHARYNGEAL SWAB [facility] Flu A/B Ag Detectionon 10-10 Flu A Ag Detection Negative Normal NEG [facility] Comment on above: Result Comment: for Influenza A Antigen Performed By: #### F NATALYA #### [address] [place] [address] [employer] T[employer] Clerk: Luis Carlos Del Castillo MD Flu B Ag Detection Negative Normal NEG [facility] Comment on above: Result Comment: for Influenza B Antigen. Performed By: #### F MEGHAABA #### [facility] [address] [place] [address] [place] [address] Saw[employer] Tally Clerk: Luis Carlos Del Castillo MD No Panel Informationon 10-10 [facility] Rapid influenza A/B antigens on 2023 FLUAV Ag Ql (Unsp spec) Negative NEGATIVE [facility] Comment on above: for Influenza A Anti gen FLUBV Ag Ql (Unsp spec) Negative NEGATIVE [facility] Comment on above: for Influenza B Anti gen. [id number] 2023 SARS-CoV-2 (COVID-19) RNA DAHLIA+probe Ql (Unsp spec) Not detected Normal NOTDET [facility] Comment on above: Result Comment: Rapid NAAT: [...] management decisions. Fact sheet for Healthcare Providers: https://www.fda.gov/media/149270/download Fact sheet for Patients: https://www.fda.gov/media/433057/download Methodology: Isothermal Nucleic Acid Amplification Performed By: #### C OVRB #### [facility] [address] [place] [address] Sawmill Tally Clerk: Luis Carlos Del Castillo MD XR CHEST [...] Nav Hudson MD 10/10/23 Final result Normal [facility] Documentationon 09-18-2023 Documentation [id number] Dorothea Alva 1960 Date Provider Department Center 09/18/2023 [facility]VIDSON SHARP [facility] Family History Problem Relation Age of Onset Coronary artery disease Mother Coronary artery disease Father Family Status - Relation Status Age at Mother Father Normal [facility] CBCon 09-09-2023 ABSOLUTE BAS 0.1 10*3/uL Normal 0.0-0.2 [facility] ABSOLUTE EOS 0.1 10*3/uL Normal 0.0-0.7 [facility] ABSOLUTE NEUTROPHIL COUNT 7.0 10*3/uL High 1.4-6.5 [facility] Basophils/100 WBC (Bld) 0.9 % Normal 0.0-2.0 [facility] DTYPE AUTO DIFF Normal [facility] Eosinophils/100 WBC (Bld) 1.3 % Normal 0.0-11.0 [facility] Erythrocyte distribution width (RBC) [Ratio] 14.6 % High 11.5-14.5 [facility] Hematocrit (Bld) [Volume fraction] 41.6 % Low 42.0-52.0 [facility] Hemoglobin (Bld) [Mass/Vol] 13.9 g/dL Low 14.0-18.0 [facility] Lymphocytes (Bld) [#/Vol] 1.5 10*3/uL Normal 1.2-3.4 [facility] Lymphocytes/100 WBC (Bld) 15.7 % Low 20.0-55.0 [facility] MCH (RBC) [Entitic mass] 33.0 pg Normal 26.0-35.0 [facility] MCHC (RBC) [Mass/Vol] 33.4 g/dL Normal 27.0-37.0 [facility] MCV (RBC) [Entitic vol] 98.7 fL Normal 80.0-100.0 [facility] Monocytes (Bld) [#/Vol] 0.6 10*3/uL Normal 0.0-0.7 [facility] Monocytes/100 WBC (Bld) 7.0 % Normal 0.0-10.0 [facility] Neutrophils/100 WBC (Bld) 75.1 % High 37.0-75.0 [facility] Platelet mean volume (Bld) [Entitic vol] 7.8 fL Normal 7.4-11.0 [facility] Platelets (Bld) [#/Vol] 195 10*3/uL Normal 130-400 [facility] RBC (Bld) [#/Vol] 4.21 10*6/uL Normal 4.0-6.1 [facility] WBC (Bld) [#/Vol] 9.3 10*3/uL Normal 3.6-11.0 [facility] CMP FASTINGon 09-09-2023 A:G RATIO 1.5 RATIO Normal 1.3-2.2 [facility] ALBUMIN 4.3 G/dl Normal 3.5-5.0 [facility] ALP [Catalytic activity/Vol] 99 U/L Normal 38-126 [facility] ALT [Catalytic activity/Vol] 46 U/L Normal <50 [facility] AST [Catalytic activity/Vol] 57 U/L Normal 17-59 [facility] Bilirubin [Mass/Vol] 0.7 mg/dL Normal 0.2-1.3 [facility] Calcium [Mass/Vol] 9.5 mg/dL Normal 8.4-10.2 [facility] Chloride [Moles/Vol] 105 mmol/L Normal 98-107 [facility] Comment on above: Result Comment: Gilma medellin note: Triglyceride levels of 600mg/dL or higher may positively bias chloride results by approximately 2.1 mmol CO2 [Moles/Vol] 27 mmol/L Normal 22-30 [facility] Creatinine [Mass/Vol] 0.60 mg/dL Low 0.7-1.2 [facility] EST. GFR, 176 ml/min/1.73sq.m Normal [facility] EST. GFR,Non 145 ml/min/1.73sq.m Normal [facility] GFR Information Average GFR for 60-6 9 years old = 85. Normal [facility] Comment on above: Result Comment: Lactation Consultant isaiah Kidney disease, GFR = <60. Kidney failure, GFR = <15. The GFR estimate is not adjusted for extreme body surface area or acute process, nor has it been validated for women or ethnic groups other than and . Glucose [Mass/Vol] 86 mg/dL Normal 70-100 [facility] Comment on above: Result Comment: NORMAL <100 mg/dL PREDIABETES 101-126 mg/dL DIABETES 126 mg/dL or higher Potassium [Moles/Vol] 4.0 mmol/L Normal 3.5-5.1 [facility] Protein [Mass/Vol] 7.1 g/dL Normal 6.3-8.2 [facility] Sodium [Moles/Vol] 141 mmol/L Normal 137-145 [facility] Urea nitrogen [Mass/Vol] 16 mg/dL Normal 7-20 [facility] LARGE JOINT/BURSA INJECTION AND/OR ASPIRATIONon 08-13-2023 Radiology Study observation (narrative) [facility] Office Visiton 08-13-2023 Follow-up visit [id number] Dorothea Alva 1960 [place] Provider Department Center 08/13/2023 DAVIDSON HOWELL VALENCIA Becker Family History Problem Relation Age of Onset Coronary artery disease Mother Coronary artery disease Father Family Status - Relation Status Age at Mother Father Level of Service:90027 HI OFFICE/OUTPATIENT ESTABLISHED MOD MDM 30-39 MIN Reason for Visit and Comments: Coronary Artery Disease [187] Chest Pain [955549] Pre-op Exam [201517] Hyperlipidemia [182] Hypertension [280899] Normal [facility] Orders Onlyon 08-13-2023 Orders Only [id number] Dorothea Alva 1960 Provider Department Center 08/13/2023 ADA BALTAZAR VALENCIA Becker Family History Problem Relation Age of Onset Coronary artery disease Mother Coronary artery disease Father Family Status - Relation Status Age at Mother Father Normal [facility] 36on 08-03-2023 36 Patient will need an appointment for further refills - thanks ! Normal [facility] LARGE JOINT/BURSA INJECTION AND/OR ASPIRATIONon 07-16-2023 Eric [...] fashion. The patient was prepped with Chloraprep. [facility] US Unspecified body regionon 07-16-2023 Image Storage This order is to facilitate the storage of the image. [facility] LARGE JOINT/BURSA INJECTION AND/OR ASPIRATIONon 06-17-2023 Radiology Study observation (narrative) [facility] LARGE JOINT/BURSA INJECTION AND/OR ASPIRATIONon 06-10-2023 Jose [...] fashion. The patient was prepped with Chloraprep. [facility] US Unspecified body regionon 06-10-2023 Image Storage This order is to facilitate the storage of the image. [facility] LARGE JOINT/BURSA INJECTION AND/OR ASPIRATIONon 05-15-2023 Radiology Study observation (narrative) [facility] LARGE JOINT/BURSA INJECTION AND/OR ASPIRATIONon 04-18-2023 Eric Luu 023 8:48 PM LARGE JOINT/BURSA INJECTION [...] fashion. The patient was prepped with Chloraprep. [facility] US Unspecified body regionon 04-18-2023 Image Storage This order is to facilitate the storage of the image. [employer] [facility] XR HIPS KOURTNEY 5V W PELVISon [...] LUIS CARLOS ENCARNACION Date: 2023-01-08 13:57 Normal [facility] XR LSPINE W_OBLS AND FLEX_EX [...] LUIS CARLOS ENCARNACION Date: 2023-01-08 14:00 Normal [facility] Hemoglobin A1Con 01-01-2023 Glucose [Mass/Vol] 114 mg/dL Normal [facility] Comment on above: Result Comment: The ADA and AACC recommend providing the estimated average glucose result to permit better patient understanding of their HBA1c result. Performed By: #### L IPR #### [facility] [address] [place], [place] [id number] Sawmill Tally Clerk: Marshall Paulino MD HbA1c (Bld) [Mass fraction] 5.6 % Normal 4.0-6.0 [facility] Comment on above: Performed By: #### L IPR #### [facility] [address] [place], [place] [id number] Sawmill Tally Clerk: Marshall Paulino MD Basic Metab w/rfx MGon 12-31 Anion gap [Moles/Vol] 9 mmol/L Normal 9-17 [facility] Comment on above: Performed By: #### T ROPI, CDP, BMPX #### [facility] [address] [place], [place] [id number] [employer] T[employer] Clerk: Luis Carlos Del Castillo MD #### GLYHGB #### [address] [id number] Sawmill Tally Clerk: Marshall Paulino MD BUN/CRE Ratio 39 High 9-20 [facility] Comment on above: Performed By: #### T CHERI, CDP, BMPX #### [facility] [address] [place] [address] [employer]mill Tally Clerk: Luis Carlos Del Castillo MD #### GLYHGB #### [address] [id number] [employer]mill Tally Clerk: Marshall Paulino MD Calcium [Mass/Vol] 9.5 mg/dL Normal 8.6-10.4 [facility] Comment on above: Performed By: #### T CHERI CDP, BMPX #### [facility] [address] [place], [place] [id number] [employer] Tally Clerk: Luis Carlos Del Castillo MD #### GLYHGB #### [address] [id number] Sawmill Tally Clerk: Marshall Paulino MD Chloride [Moles/Vol] 106 mmol/L Normal 98-107 [facility] Comment on above: Performed By: #### T ROPI, CDP, BMPX #### [facility] [address] [place] [address] Sawmill Tally Clerk: Luis Carlos Del Castillo MD #### GLYHGB #### [address] [address] Sawmill Tally Clerk: Marshall Paulino MD CO2 [Moles/Vol] 25 mmol/L Normal 20-31 [facility] Comment on above: Performed By: #### T CHERI CDP, BMPX #### [facility] [address] [place] [address] Sawmill Tally Clerk: Luis Carlos Del Castillo MD #### GLYHGB #### [address] [place], [place] [id number] Sawmill Tally Clerk: Marshall Paulino MD Creatinine [Mass/Vol] 0.70 mg/dL Normal 0.70-1.20 [facility] Comment on above: Performed By: #### T GEE ALONZO, BMPX #### [facility] [address] [place] [address] Sawmill Tally Clerk: Luis Carlos Del Castillo MD #### GLYHGB #### [address] [place], [place] [phone] Sawmill Tally Clerk: Marshall Paulino MD GFR/1.73 sq M.predicted among non-blacks MDRD (S/P/Bld) [Vol rate/Area] mL/min/{1.73_m2} Normal >60 [facility] Comment on above: Result Comment: These results [...] By: #### T CHERI CDP, BMPX #### [facility] [address] [place] [address] Sawmill Tally Clerk: Luis Carlos Del Castillo MD #### GLYHGB #### [address] [place], [place] [id number] Sawmill Tally Clerk: Marshall Paulino MD Glucose [Mass/Vol] 103 mg/dL High 70-99 [facility] Comment on above: Performed By: #### T ROPI, CDP, BMPX #### [facility] [address] [place] [phone] Sawmill Tally Clerk: Luis Carlos Del Castillo MD #### GLYHGB #### [address] [place], [place] [phone] Sawmill Tally Clerk: Marshall Paulino MD Potassium [Moles/Vol] 4.3 mmol/L Normal 3.7-5.3 [facility] Comment on above: Performed By: #### T ROPI, CDP, BMPX #### [facility] [address] [place] [address] Sawmill Tally Clerk: Luis Carlos Del Castillo MD #### GLYHGB #### [address] [place], [place] [phone] Sawmill Tally Clerk: Marshall Paulino MD Sodium [Moles/Vol] 140 mmol/L Normal 135-144 [facility] Comment on above: Performed By: #### T ROPI, CDP, BMPX #### [facility] [address] [place] [id number] Sawmill Tally Clerk: Luis Carlos Del Castillo MD #### GLYHGB #### [address] [place], [place] [phone] Sawmill Tally Clerk: Marshall Paulino MD Urea nitrogen [Mass/Vol] 27 mg/dL High 8-23 [facility] Comment on above: Performed By: #### T ROPI, CDP, BMPX #### [facility] [address] [place], [place] [id number] Sawmill Tally Clerk: Luis Carlos Del Castillo MD #### GLYHGB #### [address] [address] [place], [place] [id number] Sawmill Tally Clerk: Marshall Paulino MD Basic Metabolic Panel w/ Ref maria antonia to MGon 12-31-2022 Anion gap [Moles/Vol] 9 mmol/L 9 - 17 mmol/L [facility] Calcium [Mass/Vol] 9.5 mg/dL 8.6 - 10. 4 mg/dL [facility] Chloride [Moles/Vol] 106 mmol/L 98 - 10 7 mmol/L [facility] CO2 [Moles/Vol] 25 mmol/L 20 - 31 mmol/L [facility] Creatinine [Mass/Vol] 0.7 mg/dL 0.70 - 1.20 mg/dL [facility] GFR/1.73 sq M.predicted MDRD (S/P/Bld) [Vol rate/Area] - PINF [facility] Comment on above: These results are not [...] 103 mg/dL High 70 - 99 mg/dL [facility] Potassium [Moles/Vol] 4.3 mmol/L 3.7 - 5.3 mmol/L [facility] Sodium [Moles/Vol] 140 mmol/L 135 - 144 mmol/L [facility] Urea nitrogen [Mass/Vol] 27 mg/dL High 8 - 23 mg/dL [facility] Urea nitrogen/Creatinine (Bld) [Mass ratio] 39 High 9 - 20 [facility] CARDIAC STRESS TESTon 2022 CARDIAC STRESS TEST [address] [address] CARDIAC STRESS TEST PATIENT NAME: NOEL ALVA : 1960 MED REC NO: [id number] ROOM: [id number] ACCOUNT NO: [id number] ADMIT DATE: 12/30/2022 PROVIDER: Fany Mohr MD [...] MIRIAN/BILLY_LUCIAN Doc#: Unknown CC: Romario Man Normal [facility] CBC with Auto Differentialon 12-31-2022 Absolute Eos # 0.18 [facility] Absolute Immature Granulocyte [facility] Absolute Lymph # 1.58 [facility] Absolute [place] # 0.72 [facility] Basophils (Bld) [#/Vol] 0.05 10*3/uL [facility] NRBC Automated 0.0 0.0 per 100 WBC [facility] Platelet distribution width (Bld) [Ratio] 13.9 % 11.8 - 14.4 % [facility] Segmented neutrophils/100 WBC (Bld) 62 % 36 - 65 % [facility] Segs Absolute 4.27 [facility] CBC with Diffon 12-31-2022 Abs. Basophil 0.05 k/uL Normal 0.00-0.20 [facility] Comment on above: Performed By: #### T GEE ALONZO, BMPX #### [facility] [address] [place] [address] Sawmill Tally Clerk: Luis Carlos Del Castillo MD #### GLYHGB #### [facility] [address] [place] [address] Sawmill Tally Clerk: Marshall Paulino MD Abs.Imm.Granulocyte <0.03 Normal 0.00-0.30 [facility] Comment on above: Performed By: #### GEE ESPAÑA, BMPX #### [facility] [address] [place] [address] Dr. [place] [phone] Sawmill Tally Clerk: Luis Carlos Del Castillo MD #### GLYHGB #### [place] [id number] Sawmill Tally Clerk: Marshall Paulino MD Abs.Neutrophil (Seg) 4.27 k/uL Normal 1.50-8.10 [facility] Comment on above: Performed By: #### GEE ESPAÑA, BMPX #### [facility] [address] [place] [address] Dr. [place] [phone] Sawmill Tally Clerk: Luis Carlos Del Castillo MD #### GLYHGB #### [place] [id number] Sawmill Tally Clerk: Marshall Paulino MD Basophils/100 WBC (Bld) 1 % Normal 0-2 [facility] Comment on above: Performed By: #### GEE ESPAÑA, BMPX #### [address] [place] [phone] Sawmill Tally Clerk: Luis Carlos Del Castillo MD #### GLYHGB #### [place] [address] Sawmill Tally Clerk: Marshall Paulino MD Eosinophils (Bld) [#/Vol] 0.18 10*3/uL Normal 0.00-0.44 [facility] Comment on above: Performed By: #### GEE ESPAÑA, BMPX #### [address] [place] [address] Sawmill Tally Clerk: Luis Carlos Del Castillo MD #### GLYHGB #### [place] [id number] Sawmill Tally Clerk: Marshall Paulino MD Eosinophils/100 WBC (Bld) 3 % Normal 1-4 [facility] Comment on above: Performed By: #### GEE ESPAÑA, BMPX #### [address] [place], [place] [phone] Sawmill Tally Clerk: Luis Carlos Del Castillo MD #### GLYHGB #### [address] [phone] Sawmill Tally Clerk: Marshall Paulino MD Erythrocyte distribution width (RBC) [Ratio] 13.9 % Normal 11.8-14.4 [facility] Comment on above: Performed By: #### GEE ESPAÑA, BMPX #### [address] [place] [phone] Sawmill Tally Clerk: Luis Carlos Del Castillo MD #### GLYHGB #### [place] [id number] Sawmill Tally Clerk: Marshall Paulino MD Hematocrit (Bld) [Volume fraction] 40.4 % Low 40.7-50.3 [facility] Comment on above: Performed By: #### GEE ESPAÑA, BMPX #### [address] [place] [address] Sawmill Tally Clerk: Luis Carlos Del Castillo MD #### GLYHGB #### [address] [id number] Sawmill Tally Clerk: Marshall Paulino MD Hemoglobin (Bld) [Mass/Vol] 13.5 g/dL Normal 13.0-17.0 [facility] Comment on above: Performed By: #### GEE ESPAÑA, BMPX #### [address] [place] [address] Sawmill Tally Clerk: Luis Carlos Del Castillo MD #### GLYHGB #### [address] [id number] Sawmill Tally Clerk: Marshall Paulino MD Immature granulocytes/100 WBC (Bld) 0 % Normal 0 [facility] Comment on above: Performed By: #### GEE ESPAÑA, BMPX #### [address] [place] [id number] Sawmill Tally Clerk: Luis Carlos Del Castillo MD #### GLYHGB #### [place] [address] Sawmill Tally Clerk: Marshall Paulino MD Lymphocytes (Bld) [#/Vol] 1.58 10*3/uL Normal 1.10-3.70 [facility] Comment on above: Performed By: #### GEE ESPAÑA, BMPX #### [address] [place] [phone] Sawmill Tally Clerk: Luis Carlos Del Castillo MD #### GLYHGB #### [place] [address] Sawmill Tally Clerk: Marshall Paulino MD Lymphocytes/100 WBC (Bld) 23 % Low 24-43 [facility] Comment on above: Performed By: #### GEE ESPAÑA, BMPX #### [address] [place] [id number] Sawmill Tally Clerk: Luis Carlos Del Castillo MD #### GLYHGB #### [place] [address] Sawmill Tally Clerk: Marshall Paulino MD MCH (RBC) [Entitic mass] 31.2 pg Normal 25.2-33.5 [facility] Comment on above: Performed By: #### GEE ESPAÑA, BMPX #### [address] [place] [id number] Sawmill Tally Clerk: Luis Carlos Del Castillo MD #### GLYHGB #### [place] [address] Sawmill Tally Clerk: Marshall Paulino MD MCHC (RBC) [Mass/Vol] 33.4 g/dL Normal 28.4-34.8 [facility] Comment on above: Performed By: #### T GEE ALONZO, BMPX #### [address] [place] [id number] Sawmill Tally Clerk: Luis Carlos Del Castillo MD #### GLYHGB #### [address] [phone] Sawmill Tally Clerk: Marshall Paulino MD MCV (RBC) [Entitic vol] 93.3 fL Normal 82.6-102.9 [facility] Comment on above: Performed By: #### GEE ESPAÑA, BMPX #### [address] [place] [phone] Sawmill Tally Clerk: Luis Carlos Del Castillo MD #### GLYHGB #### [place] [address] Sawmill Tally Clerk: Marshall Paulino MD Monocytes (Bld) [#/Vol] 0.72 10*3/uL Normal 0.10-1.20 [facility] Comment on above: Performed By: #### T GEE ALONZO, BMPX #### [address] [place] [phone] Sawmill Tally Clerk: Luis Carlos Del Castillo MD #### GLYHGB #### [address] [id number] Sawmill Tally Clerk: Marshall Paulino MD Monocytes/100 WBC (Bld) 11 % Normal 3-12 [facility] Comment on above: Performed By: #### T GEE ALONZO, BMPX #### [address] [place] [phone] Sawmill Tally Clerk: Luis Carlos Del Castillo MD #### GLYHGB #### [address] [id number] Sawmill Tally Clerk: Marshall Paulino MD Neutrophil (Seg) 62 % Normal 36-65 [facility] Comment on above: Performed By: #### T GEE ALONZO, BMPX #### [facility] [address] [place] [address] Dr. [place], [place] [phone] Sawmill Tally Clerk: Luis Carlos Del Castillo MD #### GLYHGB #### [address] [phone] Sawmill Tally Clerk: Marshall Paulino MD NRBC Automated 0.0 per 100 WBC Normal 0.0 [facility] Comment on above: Performed By: #### T GEE ALONZO, BMPX #### [address] [place] [phone] Sawmill Tally Clerk: Luis Carlos Del Castillo MD #### GLYHGB #### [address] [address] Sawmill Tally Clerk: Marshall Paulino MD Platelet mean volume (Bld) [Entitic vol] 10.1 fL Normal 8.1-13.5 [facility] Comment on above: Performed By: #### T GEE ALONZO, BMPX #### [address] [place] [phone] Sawmill Tally Clerk: Luis Carlos Del Castillo MD #### GLYHGB #### [address] [address] Sawmill Tally Clerk: Marshall Paulino MD Platelets (Bld) [#/Vol] 190 10*3/uL Normal 138-453 [facility] Comment on above: Performed By: #### T GEE ALONZO, BMPX #### [address] [place] [address] Sawmill Tally Clerk: Luis Carlos Del Castillo MD #### GLYHGB #### [address] [phone] Sawmill Tally Clerk: Marshall Paulino MD RBC (Bld) [#/Vol] 4.33 10*6/uL Normal 4.21-5.77 [facility] Comment on above: Performed By: #### T GEE ALONZO, BMPX #### [facility] [address] [place] [address] [place] [address] Sawmill Tally Clerk: Luis Carlos Del Castillo MD #### GLYHGB #### [facility] [address] [place], [place] [phone] Sawmill Tally Clerk: Marshall Paulino MD WBC (Bld) [#/Vol] 6.8 10*3/uL Normal 3.5-11.3 [facility] Comment on above: Performed By: #### T GEE ALONZO, BMPX #### [facility] [address] [place] [address] [place] [address] Sawmill Tally Clerk: Luis Carlos Del Castillo MD #### GLYHGB #### [place] [id number] [place], [place] [phone] Sawmill Tally Clerk: Marshall Paulino MD EKG 12 leadon 12-31-2022 Atrial Rate 51 BPM [employer] Work Phone: P [place] 51 degrees [facility] [employer] Work Phone: P-R Interval 144 ms [facility] Work Phone: Q-T Interval 490 ms [employer] Work Phone: QRS Duration 72 ms [employer] Work Phone: QTc Calculation (Bazett) 451 ms [employer] Work Phone: R [place] 47 degrees [facility] [employer] Phone: T [place] 91 degrees [employer] Work Phone: Ventricular Rate 51 BPM [facility] Work Phone: Sinus bradycardia T wave abnormality, consider lateral ischemia Abnormal ECG When compared with ECG of 30-DEC-2022 06:16, Inverted T waves have replaced nonspecific T wave abnormality in Anterior leads QT has lengthened Confirmed by Fany Mohr MD ([id number]) on 12/31/2022 1:07:24 PM [facility] Fany Mohr MD - 12/31/2022 Sinus bradycardia T wave abnormality, consider lateral ischemia Abnormal ECG When compared with ECG of 30-DEC-2022 06:16, Inverted T waves have replaced nonspecific T wave abnormality in Anterior leads QT has lengthened Confirmed by Fany Mohr MD ([id number]) on 12/31/2022 1:07:24 PM [facility] Work Phone: [facility] Work Phone: EKG Rhythm Stripon 3 [facility] Lipid Panelon 12-31-2022 Cholesterol [Mass/Vol] 103 mg/dL NINF - 200 mg/dL [facility] Comment on above: Cholesterol Guidelines: <200 Desirable 200-240 Borderline >240 Undesirable Cholesterol in HDL [Mass/Vol] 44 mg/dL 40 - PINF mg/dL [facility] Comment on above: HDL Guidelines: <40 Undesirable 40-59 Borderline >59 Desirable Cholesterol in LDL [Mass/Vol] 46 mg/dL 0 - 130 mg/dL [facility] Comment on above: LDL Guidelines: <100 Desirable 100-129 Near to/above Desirable 130-159 Borderline >159 Undesirable Direct (measured) LDL and calculated LDL are not interchangeable tests. Cholesterol.total/Ch olesterol in HDL [Mass ratio] 2.3 {ratio} NINF - 5 [facility] Triglyceride [Mass/Vol] 67 mg/dL NINF - 150 mg/dL [facility] Comment on above: Triglyceride Guidelines: <150 Desirable 150-199 Borderline 200-499 High >499 Very high Based on AHA Guidelines for fasting triglyceride, July 2012. [facility] Lipid Profileon 12-31-2022 Cholesterol [Mass/Vol] 103 mg/dL Normal <200 [facility] Comment on above: Result Comment: Cholesterol Guidelines: <200 Desirable 200-240 Borderline >240 Undesirable Performed By: #### L IPR #### [employer] [address] [place] [address] Sawmill Tally Clerk: Marshall Paulino MD Cholesterol in HDL [Mass/Vol] 44 mg/dL Normal >40 [facility] Comment on above: Result Comment: HDL Guidelines: <40 Undesirable 40-59 Borderline >59 Desirable Performed By: #### L IPR #### [employer] [address] [place] [address] Sawmill Tally Clerk: Marshall Paulino MD Cholesterol in LDL [Mass/Vol] 46 mg/dL Normal 0-130 [facility] Comment on above: Result Comment: LDL Guidelines: <100 Desirable 100-129 Near to/above Desirable 130-159 Borderline >159 Undesirable Direct (measured) LDL and calculated LDL are not interchangeable tests. Performed By: #### L IPR #### [employer] [address] [place] [address] Sawmill Tally Clerk: Marshall Paulino MD Cholesterol.total/Ch olesterol in HDL [Mass ratio] 2.3 {ratio} Normal <5 [facility] Comment on above: Performed By: #### L IPR #### [employer] [address] [place] [address] Sawmill Tally Clerk: Marshall Paulino MD Triglyceride [Mass/Vol] 67 mg/dL Normal <150 [facility] Comment on above: Result Comment: Triglyceride Guidelines: <150 Desirable 150-199 Borderline 200-499 High >499 Very high Based on AHA Guidelines for fasting triglyceride, July 2012. Performed By: #### L IPR #### [employer] [address] [place] [address] Sawmill Tally Clerk: Marshall Paulino MD No Panel Informationon 12-31 Interpretation and review of laboratory results Abnormal [facility] Resp Viral Panelon 3 Adenovirus Not detected Normal [facility] Comment on above: Performed By: #### L IPR #### [facility] [address] [place] [address] Sawmill Tally Clerk: MD Marissa Martin.parapertussis Not detected Normal [facility] Comment on above: Performed By: #### L IPR #### [facility] [address] [place] [address] Sawmill Tally Clerk: Marshall Paulino MD Bordetella pertussis Not detected Normal [facility] Comment on above: Performed By: #### L IPR #### [facility] [address] [place] [address] Sawmill Tally Clerk: Marshall Paulino MD Chlamyd.pneumoniae Not detected Normal [facility] Comment on above: Performed By: #### L IPR #### [facility] [address] [place] [address] Sawmill Tally Clerk: Marshall Paulino MD Coronavirus 229E Not detected Normal [facility] Comment on above: Performed By: #### L IPR #### [facility] [address] [place] [address] Sawmill Tally Clerk: Marshall Paulino MD Coronavirus HKU1 Not detected Normal [facility] Comment on above: Performed By: #### L IPR #### [facility] [address] [place] [address] Sawmill Tally Clerk: Marshall Paulino MD Coronavirus NL63 Not detected Normal [facility] Comment on above: Performed By: #### L IPR #### [facility] [address] [place] [address] Sawmill Tally Clerk: Marshall Paulino MD Coronavirus OC43 Not detected Normal [facility] Comment on above: Performed By: #### L IPR #### [facility] [address] [place] [address] Sawmill Tally Clerk: Marshall Paulino MD Human Metapneumo Not detected Normal [facility] Comment on above: Performed By: #### L IPR #### [facility] [address] [place] [address] Sawmill Tally Clerk: Marshall Paulino MD Influenza A Not detected Normal [facility] Comment on above: Performed By: #### L IPR #### [facility] [address] [place] [address] Sawmill Tally Clerk: Marshall Paulino MD Influenza B Not detected [facility] Comment on above: Performed By: #### L IPR #### [facility] [address] [place] [address] Sawmill Tally Clerk: Marshall Paulino MD Mycoplas.pneumoniae Not detected Normal [facility] Comment on above: Result Comment: Perf ormed by multiplexed nucleic acid assay. Performed By: #### L IPR #### [facility] [address] [place] [address] Sawmill Tally Clerk: Marshall Paulino MD Parainfluenza 1 Not detected [facility] Comment on above: Performed By: #### L IPR #### [facility] [address] [place] [address] Sawmill Tally Clerk: Marshall Paulino MD Parainfluenza 2 Not detected Normal [facility] Comment on above: Performed By: #### L IPR #### [facility] [address] [place] [address] Sawmill Tally Clerk: Marshall Paulino MD Parainfluenza 3 Not detected [facility] Comment on above: Performed By: #### L IPR #### [facility] [address] [place] [address] Sawmill Tally Clerk: Marshall Paulino MD Parainfluenza 4 Not detected Normal [facility] Comment on above: Performed By: #### L IPR #### [facility] [place] [address] Sawmill Tally Clerk: Marshall Paulino MD Resp Syncytial Virus Not detected Normal [facility] Comment on above: Performed By: #### L IPR #### [facility] [place] [address] Sawmill Tally Clerk: Marshall Paulino MD Rhino/Enterovirus Not detected Normal [facility] Comment on above: Performed By: #### L IPR #### [facility] [address] [place] [address] Sawmill Tally Clerk: Marshall Paulino MD SARS-CoV-2 (COVID-19) RNA DAHLIA+probe Ql (Unsp spec) Not detected Normal [facility] Comment on above: Performed By: #### L IPR #### [facility] [address] [place] [address] Sawmill Tally Clerk: Marshall Paulino MD Respiratory Panel, Molecular , with COVID-19 (Restricted: peds pts or suitable admitted adults)on 12-31-2022 Adenovirus PCR Not detected Not Detected [facility] B. parapertussis [id number] DNA DAHLIA+non-probe Ql (Nph) Not detected Not Detected [facility] B. pertussis DNA DAHLIA+probe Ql (Unsp spec) Not detected Not Detected [facility] Chlamydia pneumoniae By PCR Not detected Not Detected [facility] Coronavirus 229E PCR Not detected Not Detected [facility] Coronavirus HKU1 PCR Not detected Not Detected [facility] Coronavirus NL63 PCR Not detected Not Detected [facility] Coronavirus OC43 PCR Not detected Not Detected [facility] FLUAV RNA DAHLIA+non-probe Ql (Nph) Not detected Not Detected [facility] FLUBV RNA DAHLIA+non-probe Ql (Nph) Not detected Not Detected [facility] Human Metapneumovirus PCR Not detected Not Detected [facility] Mycoplasma pneumo by PCR Not detected Not Detected [facility] Comment on above: Performed by Risk Ident nucleic acid assay. Parainfluenza 1 PCR Not detected Not Detected [facility] Parainfluenza 2 PCR Not detected Not Detected [facility] Parainfluenza 3 PCR Not detected Not Detected [facility] Parainfluenza 4 PCR Not detected Not Detected [facility] Resp Syncytial Virus PCR Not detected Not Detected [facility] Rhino/Enterovirus PCR Not detected Not Detected [facility] SARS-CoV-2 (COVID-19) RNA DAHLIA+non-probe Ql (Nph) Not detected Not Detected [facility] Specimen Description .NASOPHARYNGEAL SWAB [facility] Troponinon 12-31-2022 Troponin I.cardiac DL <= 0.01 ng/mL [Mass/Vol] 18 ng/L 0 - 22 ng/L [facility] Comment on above: High Sensitivity Tro ponin values cannot be compared with other Troponin methodologies. Troponin, High Sens 18 ng/L Normal 0-22 [facility] Comment on above: Result Comment: High Sensitivity Troponin values cannot be compared with other Troponin methodologies. Performed By: #### T CHERI, GEE, BMPX #### [facility] [address] [place] [address] Sawmill Tally Clerk: Luis Carlos Del Castillo MD #### GLYHGB #### [place] [id number] Sawmill Tally Clerk: Marshall Paulino MD Brain Natri. Peptideon 12-30 Natriuretic peptide B (Bld) [Mass/Vol] 308 pg/mL High <300 [facility] Comment on above: Result Comment: An age-independent cutoff point of 300 pg/ml has a 98% negative predictive value excluding acute heart failure. Performed By: #### B GUEST SERVICE MANAGER #### [facility] [address] [place] [address] Sawmill Tally Clerk: Luis Carlos Del Castillo MD Brain Natriuretic Peptideon 12-30-2022 Natriuretic peptide B (Bld) [Mass/Vol] 308 pg/mL High NINF - 300 pg/mL [facility] Comment on above: An age-independent cutoff point of 300 pg/ml has a 98% negative predictive value excluding acute heart failure. CBC with Auto Differentialon 12-30-2022 Absolute Eos # 0.07 [facility] Absolute Immature Granulocyte 0.04 [facility] Absolute Lymph # 1.83 [facility] Absolute [place]ette # 0.91 [facility] Basophils (Bld) [#/Vol] 0.06 10*3/uL [facility] Basophils/100 WBC (Bld) 1 % 0 - 2 % [facility] Eosinophils/100 WBC (Bld) 1 % 1 - 4 % [facility] Hematocrit (Bld) [Volume fraction] 39.6 % Low 40.7 - 50.3 % [facility] Hemoglobin (Bld) [Mass/Vol] 13.8 g/dL 13.0 - 17.0 g/dL [facility] Immature granulocytes/100 WBC (Bld) 0 % 0 [facility] Interpretation and review of laboratory results Abnormal [facility] Lymphocytes/100 WBC (Bld) 18 % Low 24 - 43 % [facility] MCH (RBC) [Entitic mass] 31.8 pg 25.2 - 33.5 pg [facility] MCHC (RBC) [Mass/Vol] 34.8 g/dL 28.4 - 34.8 g/dL [facility] MCV (RBC) [Entitic vol] 91.2 fL 82.6 - 102.9 fL [facility] Monocytes/100 WBC (Bld) 9 % 3 - 12 % [facility] NRBC Automated 0.0 0.0 per 100 WBC [facility] Platelet distribution width (Bld) [Ratio] 13.5 % 11.8 - 14.4 % [facility] Platelet mean volume (Bld) [Entitic vol] 9.9 fL 8.1 - 13.5 fL [facility] Platelets (Bld) [#/Vol] 189 10*3/uL [facility] RBC (Bld) [#/Vol] 4.34 10*6/uL 4.21 - 5.77 m/uL [facility] Segmented neutrophils/100 WBC (Bld) 71 % High 36 - 65 % [facility] Segs Absolute 7.15 [facility] WBC (Bld) [#/Vol] 10.1 10*3/uL [facility] CBC with Diffon 12-30-2022 Abs. Basophil 0.06 k/uL Normal 0.00-0.20 [facility] Comment on above: Performed By: #### Ileana ALONZO CP, CDP #### [facility] [address] [place], [place] [phone] Sawmill Tally Clerk: Luis Carlos Del Castillo MD Abs.Imm.Granulocyte 0.04 k/uL Normal 0.00-0.30 [facility] Comment on above: Performed By: #### Ileana ALONZO CP, CDP #### [facility] [address] [place] [address] Dr. [place], [facility] Sawmill Tally Clerk: Luis Carlos Del Castillo MD Abs.Neutrophil (Seg) 7.15 k/uL Normal 1.50-8.10 [facility] Comment on above: Performed By: #### Ileana ALONZO CP, CDP #### [address] [place], [place] [phone] Sawmill Tally Clerk: Luis Carlos Del Castillo MD Basophils/100 WBC (Bld) 1 % Normal 0-2 [facility] Comment on above: Performed By: #### Ileana ALONZO CP, CDP #### [facility] [address] [place] [address] Sawmill Tally Clerk: Luis Carlos Del Castillo MD Eosinophils (Bld) [#/Vol] 0.07 10*3/uL Normal 0.00-0.44 [facility] Comment on above: Performed By: #### Ileana ALONZO CP, CDP #### [facility] [address] [place], [place] [phone] Sawmill Tally Clerk: Luis Carlos Del Castillo MD Eosinophils/100 WBC (Bld) 1 % Normal 1-4 [facility] Comment on above: Performed By: #### Ileana ALONZO CP, CDP #### [address] [place], [place] [phone] Sawmill Tally Clerk: Luis Carlos Del Castillo MD Erythrocyte distribution width (RBC) [Ratio] 13.5 % Normal 11.8-14.4 [facility] Comment on above: Performed By: #### Ileana ALONZO CP, CDP #### [address] [place], [facility]83 Sawmill Tally Clerk: Luis Carlos Del Castillo MD Hematocrit (Bld) [Volume fraction] 39.6 % Low 40.7-50.3 [facility] Comment on above: Performed By: #### Ileana ALONZO CP, CDP #### [address] [place], [place] [address] Sawmill Tally Clerk: Luis Carlos Del Castillo MD Hemoglobin (Bld) [Mass/Vol] 13.8 g/dL Normal 13.0-17.0 [facility] Comment on above: Performed By: #### Ileana ALONZO CP, CDP #### [address] [place], [place] [address] Sawmill Tally Clerk: Luis Carlos Del Castillo MD Immature granulocytes/100 WBC (Bld) 0 % Normal 0 [facility] Comment on above: Performed By: #### Ileana ALONZO CP, CDP #### [address] [place], [facility]83 Sawmill Tally Clerk: Luis Carlos Del Castillo MD Lymphocytes (Bld) [#/Vol] 1.83 10*3/uL Normal 1.10-3.70 [facility] Comment on above: Performed By: #### Ileana ALONZO CP, CDP #### [address] [place], [place] [phone] Sawmill Tally Clerk: Luis Carlos Del Castillo MD Lymphocytes/100 WBC (Bld) 18 % Low 24-43 [facility] Comment on above: Performed By: #### Ileana ALONZO CP, CDP #### [facility] [address] [place], [facility]83 Sawmill Tally Clerk: Luis Carlos Del Castillo MD MCH (RBC) [Entitic mass] 31.8 pg Normal 25.2-33.5 [facility] Comment on above: Performed By: #### Ileana ALONZO CP, CDP #### [facility] [address] [place] [address] Dr. [place], [facility]83 Sawmill Tally Clerk: Luis Carlos Del Castillo MD MCHC (RBC) [Mass/Vol] 34.8 g/dL Normal 28.4-34.8 [facility] Comment on above: Performed By: #### Ileana ALONZO CP, CDP #### [address] [place], [facility]83 Sawmill Tally Clerk: Luis Carlos Del Castillo MD MCV (RBC) [Entitic vol] 91.2 fL Normal 82.6-102.9 [facility] Comment on above: Performed By: #### Ileana ALONZO CP, CDP #### [address] [place], [facility]83 Sawmill Tally Clerk: Luis Carlos Del Castillo MD Monocytes (Bld) [#/Vol] 0.91 10*3/uL Normal 0.10-1.20 [facility] Comment on above: Performed By: #### Ileana ALONZO CP, CDP #### [address] [place], [place] [phone] Sawmill Tally Clerk: Luis Carlos Del Castillo MD Monocytes/100 WBC (Bld) 9 % Normal 3-12 [facility] Comment on above: Performed By: #### Ileana ALONZO CP, CDP #### [address] [place], [place] 1888383 Sawmill Tally Clerk: Luis Carlos Del Castillo MD Neutrophil (Seg) 71 % High 36-65 [facility] Comment on above: Performed By: #### Ileana ALONZO CP, CDP #### [facility] [address] [place] [address] Sawmill Tally Clerk: Luis Carlos Del Castillo MD NRBC Automated 0.0 per 100 WBC Normal 0.0 [facility] Comment on above: Performed By: #### Ileana ALONZO CP, CDP #### [facility] [address] [place], [place] [address] Sawmill Tally Clerk: Luis Carlos Del Castillo MD Platelet mean volume (Bld) [Entitic vol] 9.9 fL Normal 8.1-13.5 [facility] [facility] Comment on above: Performed By: #### Ileana ALONZO CP, CDP #### [address] [place], [facility] Sawmill Tally Clerk: Luis Carlos Del Castillo MD Platelets (Bld) [#/Vol] 189 10*3/uL Normal 138-453 [facility] Comment on above: Performed By: #### Ileana ALONZO CP, CDP #### [address] [place] [address] Sawmill Tally Clerk: Luis Carlos Del Castillo MD RBC (Bld) [#/Vol] 4.34 10*6/uL Normal 4.21-5.77 [facility] Comment on above: Performed By: #### Ileana ALONZO CP, CDP #### [address] [place], [facility]83 Sawmill Tally Clerk: Luis Carlos Del Castillo MD WBC (Bld) [#/Vol] 10.1 10*3/uL Normal 3.5-11.3 [facility] Comment on above: Performed By: #### Ileana ALONZO CP, CDP #### [facility] [address] [place], [place] [id number] Sawmill Tally Clerk: Luis Carlos Del Castillo MD COVID-19, Paulino 12-30-2022 SARS-CoV-2 (COVID-19) RdRp gene DAHLIA+probe Ql (Resp) Not detected Not Detected [facility] Comment on above: Rapid NAAT: The specimen [...] management decisions. Fact sheet for Healthcare Providers: https://www.fda.gov/media/131020/download Fact sheet for Patients: https://www.fda.gov/media/522045/download Methodology: Isothermal Nucleic Acid Amplification Specimen Description .NASOPHARYNGEAL SWAB [facility] CT CHEST PULMONARY EMBOLISM W CONTRASTon [...] Dov Love MD 12/30/22 Final result Normal [facility] Radiology Study observation (narrative) ROSLYN IZQUIERDO [facility] [employer] Work Phone: Negative for acute pulmonary embolus Right-sided aortic arch Bilateral patchy pulmonary infiltrates which are predominantly peripheral which may be related atypical infectious etiology. Large hiatal hernia and wall thickening in the distal esophagus. An esophagram or endoscopy may be helpful for further evaluation if clinically indicated. [facility] EXAMINATION: CTA OF THE CHEST 12/30/2022 [...] No acute bone or soft tissue abnormality. [facility] Dov Love MD - 12/30/2022 EXAMINATION: [...] helpful for further evaluation if clinically indicated. [facility] Work Phone: CT CHEST PULMONARY EMBOLISM W CONTRASTOrdered By: Dov Love on 12-30-2022 [facility] Work Phone: Comp Metabolic Profon 2022 Albumin [Mass/Vol] 3.9 g/dL Normal 3.5-5.2 [facility] Comment on above: Performed By: #### T NATHAN ALONZO CDP #### [facility] [address] [place] [address] Sawmill Tally Clerk: Luis Carlos Del Castillo MD Albumin/Glob Ratio 1.3 Normal 1.0-2.5 [facility] Comment on above: Performed By: #### T NATHAN ALONZO CDP #### [facility] [address] [place] [address] Sawmill Tally Clerk: Luis Carlos Del Castillo MD Alkaline Phos 102 U/L Normal 40-129 [facility] Comment on above: Performed By: #### T NATHAN ALONZO, CDP #### [facility] [address] [place], [place] [address] Sawmill Tally Clerk: Luis Carlos Del Castillo MD ALT [Catalytic activity/Vol] 19 U/L Normal 5-41 [facility] Comment on above: Performed By: #### T NATHAN ALONZO, CDP #### [facility] [address] [place], [place] [id number] Sawmill Tally Clerk: Luis Carlos Del Castillo MD Anion gap [Moles/Vol] 10 mmol/L Normal 9-17 [facility] Comment on above: Performed By: #### Ileana ALONZO CP, CDP #### [facility] [address] [place], [place] [address] Sawmill Tally Clerk: Luis Carlos Del Castillo MD AST [Catalytic activity/Vol] 16 U/L Normal <40 [facility] Comment on above: Performed By: #### Ileana ALONZO CP, CDP #### [facility] [address] [place], [place] [id number] Sawmill Tally Clerk: Luis Carlos Del Castillo MD Bilirubin [Mass/Vol] 0.8 mg/dL Normal 0.3-1.2 [facility] Comment on above: Performed By: #### Ileana ALONZO CP, CDP #### [facility] [address] [place] [address] Dr. [place], [place] [id number] Sawmill Tally Clerk: Luis Carlos Del Castillo MD BUN/CRE Ratio 25 High 9-20 [facility] Comment on above: Performed By: #### T NATHAN ALONZO, CDP #### [facility] [address] [place], [place] [id number] Sawmill Tally Clerk: Luis Carlos Del Castillo MD Calcium [Mass/Vol] 9.5 mg/dL Normal 8.6-10.4 [facility] Comment on above: Performed By: #### T NATHAN ALONZO, CDP #### [facility] [address] [place], [place] [id number] Sawmill Tally Clerk: Luis Carlos Del Castillo MD Chloride [Moles/Vol] 105 mmol/L Normal 98-107 [facility] Comment on above: Performed By: #### Ileana ALONZO CP, CDP #### [facility] [address] [place], [place] [address] Sawmill Tally Clerk: Luis Carlos Del Castillo MD CO2 [Moles/Vol] 24 mmol/L Normal 20-31 [facility] Comment on above: Performed By: #### Ileana ALONZO CP, CDP #### [facility] [address] [place] [address] Sawmill Tally Clerk: Luis Carlos Del Castillo MD Creatinine [Mass/Vol] 0.63 mg/dL Low 0.70-1.20 [facility] Comment on above: Performed By: #### Ileana ALONZO CP, CDP #### [address] [place], [facility]83 Sawmill Tally Clerk: Luis Carlos Del Castillo MD GFR/1.73 sq M.predicted among non-blacks MDRD (S/P/Bld) [Vol rate/Area] mL/min/{1.73_m2} Normal >60 [facility] Comment on above: Result Comment: These results [...] By: #### T NATHAN ALONZO, CDP #### [facility] [address] [place] [address] Sawmill Tally Clerk: Luis Carlos Del Castillo MD Glucose [Mass/Vol] 113 mg/dL High 70-99 [facility] Comment on above: Performed By: #### Ileana ALONZO CP, CDP #### [facility] [address] [place] [address] Sawmill Tally Clerk: Luis Carlos Del Castillo MD Potassium [Moles/Vol] 3.9 mmol/L Normal 3.7-5.3 [facility] Comment on above: Performed By: #### Ileana ALONZO CP, CDP #### [facility] [address] [place] [address] Sawmill Tally Clerk: Luis Carlos Del Castillo MD Protein [Mass/Vol] 7.0 g/dL Normal 6.4-8.3 [facility] Comment on above: Performed By: #### Ileana ALNOZO CP, CDP #### [address] [place] [address] Sawmill Tally Clerk: Luis Carlos Del Castillo MD Sodium [Moles/Vol] 139 mmol/L Normal 135-144 [facility] Comment on above: Performed By: #### Ileana ALONZO CP, CDP #### [facility] [address] [place] [address] [place] [address] Sawmill Tally Clerk: Luis Carlos Del Castillo MD Urea nitrogen [Mass/Vol] 16 mg/dL Normal 8-23 [facility] Comment on above: Performed By: #### Ileana ALONZO CP, CDP #### [address] [place] [address] Sawmill Tally Clerk: Luis Carlos Del Castillo MD Comprehensive Metabolic [facility] 12-30-2022 Albumin [Mass/Vol] 3.9 g/dL 3.5 - 5.2 g/dL [facility] Albumin/Globulin [Mass ratio] 1.3 {ratio} 1.0 - 2.5 [facility] ALP [Catalytic activity/Vol] 102 U/L 40 - 129 U/L [facility] ALT [Catalytic activity/Vol] 19 U/L 5 - 41 U/L [facility] Anion gap [Moles/Vol] 10 mmol/L 9 - 17 mmol/L [facility] AST [Catalytic activity/Vol] 16 U/L NINF - 40 U/L [facility] [employer] Bilirubin [Mass/Vol] 0.8 mg/dL 0.3 - 1 .2 mg/dL [facility] [employer] Calcium [Mass/Vol] 9.5 mg/dL 8.6 - 10. 4 mg/dL [facility] [employer] Chloride [Moles/Vol] 105 mmol/L 98 - 10 7 mmol/L [facility] [employer] CO2 [Moles/Vol] 24 mmol/L 20 - 31 mmol/L [facility] [employer] Creatinine [Mass/Vol] 0.63 mg/dL Low 0.70 - 1.20 mg/dL [facility] [employer] GFR/1.73 sq M.predicted MDRD (S/P/Bld) [Vol rate/Area] - PINF [facility] [employer] [employer] Comment on above: These results are not [...] 113 mg/dL High 70 - 99 mg/dL [facility] [employer] Potassium [Moles/Vol] 3.9 mmol/L 3.7 - 5.3 mmol/L [facility] Protein [Mass/Vol] 7.0 g/dL 6.4 - 8.3 g/dL [facility] Sodium [Moles/Vol] 139 mmol/L 135 - 144 mmol/L [facility] [employer] Urea nitrogen [Mass/Vol] 16 mg/dL 8 - 23 mg/dL [facility] [employer] Urea nitrogen/Creatinine (Bld) [Mass ratio] 25 High 9 - 20 [facility] EKG 12 Leadon 12-30-2022 Atrial Rate 51 BPM [employer] Work Phone: P [place] 39 degrees [employer] [facility] Work Phone: P-R Interval 146 ms [employer] [facility] Work Phone: Q-T Interval 424 ms [employer] Work Phone: QRS Duration 72 ms ROSLYN [employer] Work Phone: QTc Calculation (Bazett) 390 ms ROSLYN [employer] Work Phone: R [place] 56 degrees ROSLYN [employer] Work Phone: T [place] 73 degrees ROSLYN [employer] Work Phone: Ventricular Rate 51 BPM ROSLYN L[employer] Work Phone: Poor data qualit y, interpretation may be adversely affected Sinus bradycardia Nonspecific ST and T wave abnormality Abnormal ECG Confirmed by Fany Mohr MD ([id number]) on 12/30/2022 8:21:48 AM [facility] RADIOLOGY Fany Mohr MD - 12/30/2022 Poor data quality, interpretation may be adversely affected Sinus bradycardia Nonspecific ST and T wave abnormality Abnormal ECG Confirmed by Fany Mohr MD ([id number]) on 12/30/2022 8:21:48 AM [facility] [employer] Work Phone: [employer] Work Phone: EKG Rhythm Stripon 3 [facility] Echocardiogram complete 2D w ith doppler with coloron 12-30-2022 Left ventricular Ejection fraction 55 ROSLYN [employer] Work Phone: LVEF MODALITY ECHO [employer] Work Phone: [facility] Transthoracic Echocardiography Report (TTE) Patient Name ALVA Date of Study 12/30/2022 NOEL Vaca Date of 1960 Gender Male Age 62 year(s) Race Room Number 0327 Height: 66 inch, 167.64 cm Corporate ID [id number] Weight: 160 pounds, 72.6 kg # Patient Acct [id number] BSA: 1.82 m^2 BMI: 25.82 kg/m^2 # MR # [id number] Form Setter Helper Keke Tineo Interpreting Physician Fany Mohr Fellow Referring Nurse Cece Villalobos, Practitioner SREEDHAR Interpreting Referring Physician Fellow Type of Study TTE procedure:2D Echocardiogram, M-Mode, Doppler, Color Doppler. Procedure Date Date: 12/30/2022 Start: 02:20 PM Study Location: [facility] Indications:Chest pain. History / Tech. Comments: Dx: [...] MD / Result, Unknown Provider - 12/30/2022 [facility] Transthoracic Echocardiography Report (TTE) Patient Name ABBY Date of Study 12/30/2022 NOEL Vaca Date of 1960 Gender Male Age 62 year(s) Race Room Number 0327 Height: 66 inch, 167.64 cm Corporate ID [id number] Weight: 160 pounds, 72.6 kg # Patient Acct [id number] BSA: 1.82 m^2 BMI: 25.82 kg/m^2 # MR # [id number] Form Setter Helper Keke Tineo Interpreting Physician Fany Mohr Fellow Referring Nurse Cece Villalobos, Practitioner FISH CUTTER Interpreting Referring Physician Fellow Type of Study TTE procedure:2D Echocardiogram, M-Mode, Doppler, Color Doppler. Procedure Date Date: 12/30/2022 Start: 02:20 PM Study Location: [facility] Indications:Chest pain. History / Tech. Comments: Dx: [...] Wall E' velocity:0.12 m/s Lateral Wall E/E':6.28 [facility] Work Phone: [facility] Work Phone: No Panel Informationon 12-30 Interpretation and review of laboratory results Abnormal [facility] Resp Viral Panelon 3 Source: .NASOPHARYNGEAL SWAB Normal [facility] Comment on above: Performed By: #### L IPR #### [facility] [employer] [address] [place] [address] Sawmill Tally Clerk: Marshall Paulino MD [id number] 12-30-2022 SARS-CoV-2 (COVID-19) RNA DAHLIA+probe Ql (Unsp spec) Not detected Normal [facility] Comment on above: Result Comment: [...] management decisions. Fact sheet for Healthcare Providers: https://www.fda.gov/media/523432/download Fact sheet for Patients: https://www.fda.gov/media/753214/download Methodology: Isothermal Nucleic Acid Amplification Performed By: #### L IPR #### [employer] [facility] [place], [place] [id number] Sawmill Tally Clerk: Marshall Paulino MD Troponinon 12-30-2022 Troponin I.cardiac DL <= 0.01 ng/mL [Mass/Vol] 19 ng/L 0 - 22 ng/L [facility] Comment on above: High Sensitivity Tro ponin values cannot be compared with other Troponin methodologies. Troponin I.cardiac DL <= 0.01 ng/mL [Mass/Vol] 17 ng/L 0 - 22 ng/L [facility] Comment on above: High Sensitivity Tro ponin values cannot be compared with other Troponin methodologies. Troponin, High Sens 19 ng/L Normal 0-22 [facility] Comment on above: Result Comment: High Sensitivity Troponin values cannot be compared with other Troponin methodologies. Performed By: #### T NATHAN ALONZO, CDP #### [facility] [address] [place] [address] Sawmill Tally Clerk: Luis Carlos Del Castillo MD Troponin, High Sens 17 ng/L Normal 0-22 [facility] Comment on above: Result Comment: High Sensitivity Troponin values cannot be compared with other Troponin methodologies. Performed By: #### L IPR #### [facility] [place], [place] [id number] Sawmill Tally Clerk: Marsahll Paulino MD XR CHEST PORTABLEon 12-31-19 Radiology Study observation (narrative) [facility] Work Phone: XR CHEST PORTABLE EXAMINATION: ONE XRAY VIEW [...] Sherrill Parmar MD 12/30/22 Final result Normal [facility] There is a new left midlung opacity and adjacent mildly prominent interstitial markings, suggestive of pneumonia. Recommend imaging follow-up to resolution to exclude an underlying lesion. [facility] EXAMINATION: ONE XRAY VIEW OF THE CHEST 12/30/2022 6:43 am COMPARISON: 03/25/2022 chest radiograph HISTORY: ORDERING SYSTEM PROVIDED HISTORY: chest pain TECHNOLOGIST PROVIDED HISTORY: chest pain FINDINGS: The cardiomediastinal silhouette is within normal limits of size. There is a new left midlung opacities suggestive of pneumonia. Mildly prominent bilateral interstitial markings. No pleural effusion at or pneumothorax. No acute osseous abnormality. [facility] Sherrill Parmar MD - 12/30/2022 EXAMINATION: [...] to resolution to exclude an underlying lesion. [employer] Phone: XR CHEST PORTABLEOrdered By: Sherrill Parmar on 12-30-2022 [facility] [employer] Phone: XR LSPINE MIN 4 VIEWSon 12-04 [...] PEDRO PABLO CHAMBERS Date: 2022-12-18 13:59 Normal [facility] MRI LSPINE WO CONon 11-06-19 [...] PABLO CHAMBERS Date: 2022-11-06 15:08 Normal [facility] TESTOSTERONE, TOTALon 2021 Testosterone [Mass/Vol] 279 ng/dL Normal 264-916 [facility] Comment on above: Result Comment: Adul t male reference interval is based on a population of healthy nonobese males (BMI <30) between 19 and 39 years old. Vinnie et.al. JCEM 2017,102;2315-7067. PMID: [id number]. Performed By: #### H GBHCT #### [facility] [address] [place] [address] Dr. Raimundo Estrada CBC AUTO DIFFon 09-11-2022 BASO # 0.1 103/ul Normal 0.0-0.1 [facility] Comment on above: Performed By: #### H GBHCT #### [facility] [address] [place] [address] Dr. Raimundo Estrada Basophils/100 WBC (Bld) 0.6 % Normal 0.2-2.0 [facility] Comment on above: Performed By: #### H GBHCT #### [facility] [address] [place] [address] Dr. Raimundo Estrada EO # 0.2 103/ul Normal 0.0-0.7 [facility] Comment on above: Performed By: #### H GBHCT #### [facility] [address] [place] [address] Dr. Raimundo Estrada Eosinophils/100 WBC (Bld) 2.4 % Normal 0.9-7.0 [facility] Comment on above: Performed By: #### H GBHCT #### [facility] [address] [place] [address] Dr. Raimundo Estrada Erythrocyte distribution width (RBC) [Ratio] 14.1 % Normal 11.0-15.0 [facility] Comment on above: Performed By: #### H GBHCT #### [facility] [address] [place] [address] Dr. Raimundo Estrada Hematocrit (Bld) [Volume fraction] 40.2 % Critically low 42.0-54.0 [facility] Comment on above: Performed By: #### H GBHCT #### [facility] [address] [place] [address] Dr. Raimundo Estrada Hemoglobin (Bld) [Mass/Vol] 13.4 g/dL Critically low 14.0-18.0 [facility] Comment on above: Performed By: #### H GBHCT #### [facility] [address] [address] [address] Raimundo Estrada IG # 0.03 10e3/ul Normal 0.00-0.03 [facility] Comment on above: Performed By: #### H GBHCT #### [facility] [address] [place] [address] Dr. Raimundo Estrada IG % 0.4 % Normal 0.0-0.5 [facility] Comment on above: Performed By: #### H GBHCT #### [facility] [address] [place] [address] Dr. Raimundo Estrada LYMPH # 1.7 103/ul Normal 1.2-3.8 [facility] Comment on above: Performed By: #### H GBHCT #### [facility] [address] [place] [address] Dr. Raimundo Estrada Lymphocytes/100 WBC (Bld) 20.8 % Normal 20.5-60.0 [facility] Comment on above: Performed By: #### H GBHCT #### [facility] [address] [place] [address] Dr. Raimundo Estrada MANUAL DIFF REQ NO Normal [facility] Comment on above: Performed By: #### H GBHCT #### [facility] [address] [place] [address] Dr. Raimundo Estrada MCH (RBC) [Entitic mass] 31.8 pg Normal 25.9-34.0 [facility] Comment on above: Performed By: #### H GBHCT #### [facility] [address] [place] [address] Dr. Raimundo Estrada MCHC (RBC) [Mass/Vol] 33.3 g/dL Normal 29.9-35.2 [facility] Comment on above: Performed By: #### H GBHCT #### [facility] [address] [place] [address] Dr. Raimundo Estrada MCV (RBC) [Entitic vol] 95.3 fL Critically high 80.0-94.0 [facility] Comment on above: Performed By: #### H GBHCT #### [facility] [address] [place] [address] Dr. Raimundo Estrada MONO # 0.8 103/ul Normal 0.3-0.8 [facility] Comment on above: Performed By: #### H GBHCT #### [facility] [address] [place] [address] Dr. Raimundo sEtrada Monocytes/100 WBC (Bld) 9.7 % Normal 1.7-12.0 [facility] Comment on above: Performed By: #### H GBHCT #### [facility] [address] [place] [address] Dr. Raimundo Estrada NEUT # 5.2 103/ul Normal 1.4-6.5 [facility] Comment on above: Performed By: #### H GBHCT #### [facility] [address] [place] [address] Dr. Raimundo Estrada Neutrophils/100 WBC (Bld) 66.1 % Normal 43.0-75.0 [facility] Comment on above: Performed By: #### H GBHCT #### [facility] [address] [place] [address] Dr. Raimundo Estrada Platelet mean volume (Bld) [Entitic vol] 10.1 fL Normal 9.5-13.5 [facility] Comment on above: Performed By: #### H GBHCT #### [facility] [address] [place] [address] Dr. Raimundo Estrada PLT 189 103/ul Normal 150-450 [facility] Comment on above: Performed By: #### H GBHCT #### [facility] [address] [place] [address] Dr. Raimundo Estrada RBC 4.22 106/ul Critically low 4.70-6.10 [facility] Comment on above: Performed By: #### H GBHCT #### [facility] [address] [address] [address] Raimundo Estrada WBC 7.9 103/ul Normal 4.0-11.0 [facility] Comment on above: Performed By: #### H GBHCT #### [facility] [address] [address] [address] Raimundo Estrada FREE T3on 09-11-2022 FREE T3 2.85 pg/mlL Normal 2.18-3.98 [facility] Comment on above: Performed By: #### T SH, FT3, LIVER, BMP, LIPID #### [facility] [address] [address] [address] Raimundo Estrada FREE T4on 09-11-2022 Free T4 [Mass/Vol] 0.85 ng/dL Normal 0.76-1.46 [facility] Comment on above: Performed By: #### H GBHCT #### [facility] [address] [address] [address] Raimundo Estrada GLYCOHEMOGLOBIN A1Con 2021 ADA RECOMMENDATION SEE BELOW Normal [facility] Comment on above: Result Comment: ADA RECOMMENDED LIMIT 4.0 - 6.0 ADA THERAPEUTIC TARGET < 7.0 ACTION SUGGESTED > 7.0 Performed By: #### H GBHCT #### [facility] [address] [address] [address] Raimundo Estrada Glucose [Mass/Vol] 111 mg/dL Normal [facility] Comment on above: Performed By: #### H GBHCT #### [facility] [address] [address] [address] Raimundo Estrada HbA1c (Bld) [Mass fraction] 5.5 % Normal 4.5-6.2 [facility] Comment on above: Performed By: #### H GBHCT #### [facility] [address] [address] [address] Raimundo Estrada LIPID PROFILEon 09-11-2022 CHOL-HDL RATIO NORM SEE BELOW Normal [facility] Comment on above: Result Comment: 3.3 - 4.4 LOW RISK 4.4 - 7.1 AVERAGE RISK 7.1 - 11.0 MODERATE RISK >11.0 HIGH RISK Performed By: #### T SH, FT3, LIVER, BMP, LIPID #### [facility] [address] [address] [address] Raimundo Estrada Cholesterol [Mass/Vol] 129 mg/dL Normal <=200 [facility] Comment on above: Performed By: #### T SH, FT3, LIVER, BMP, LIPID #### [facility] [address] [address] [address] Raimundo Estrada Cholesterol in HDL [Mass/Vol] 62 mg/dL Critically high 40-60 [facility] Comment on above: Performed By: #### T SH, FT3, LIVER, BMP, LIPID #### [facility] [address] [address] [address] Raimundo Estrada Cholesterol in LDL [Mass/Vol] 53.4 mg/dL Normal [facility] Comment on above: Performed By: #### T SH, FT3, LIVER, BMP, LIPID #### [facility] [address] [place] [address] Dr. Raimundo Estrada Cholesterol.total/Ch olesterol in HDL [Mass ratio] 2.1 {ratio} Normal [facility] Comment on above: Performed By: #### T SH, FT3, LIVER, BMP, LIPID #### [facility] [address] [address] [address] Raimundo Estrada HDL NORMAL > or = 60 mg/dl - LO W CARDIOVASCULAR RISK <40 mg/dl - HIGH CARDIOVASCULAR RISK Normal [facility] Comment on above: Performed By: #### T SH, FT3, LIVER, BMP, LIPID #### [facility] [address] [place] [address] Dr. Raimundo Estrada LDL CALC NORMAL SEE BELOW Normal [facility] Comment on above: Result Comment: <100 mg/dl OPTIMAL 100 - 129 mg/dl NEAR OR ABOVE OPTIMAL 130 - 159 mg/dl BORDERLINE HIGH 160 - 189 mg/dl HIGH >190 mg/dl VERY HIGH Performed By: #### T SH, FT3, LIVER, BMP, LIPID #### [facility] [address] [address] [address] Raimundo Estrada Triglyceride [Mass/Vol] 68 mg/dL Normal <=150 [facility] Comment on above: Performed By: #### T SH, FT3, LIVER, BMP, LIPID #### [facility] [address] [address] [address] Raimundo Estrada VLDL CALC 13.6 mg/dL Normal [facility] Comment on above: Performed By: #### T SH, FT3, LIVER, BMP, LIPID #### [facility] [address] [place] [address] Dr. Raimundo Estrada LIVER PROFILEon 09-11-2022 Albumin [Mass/Vol] 3.8 g/dL Normal 3.4-5.0 [facility] Comment on above: Performed By: #### T SH, FT3, LIVER, BMP, LIPID #### [facility] [address] [place] [address] Dr. Raimundo Estrada Albumin/Globulin [Mass ratio] 1.0 {ratio} Normal [facility] Comment on above: Performed By: #### T SH, FT3, LIVER, BMP, LIPID #### [facility] [address] [place] [address] Dr. Raimundo Estrada ALP [Catalytic activity/Vol] 103 U/L Normal 46-116 [facility] Comment on above: Performed By: #### T SH, FT3, LIVER, BMP, LIPID #### [facility] [address] [place] [address] Dr. Raimundo Estrada ALT [Catalytic activity/Vol] 46 U/L Normal 16-63 [facility] Comment on above: Performed By: #### T SH, FT3, LIVER, BMP, LIPID #### [facility] [address] [place] [address] Dr. Raimundo Estrada AST [Catalytic activity/Vol] 35 U/L Normal 15-37 [facility] Comment on above: Performed By: #### T SH, FT3, LIVER, BMP, LIPID #### [facility] [address] [place] [address] Dr. Raimundo Estrada BILI, CONJUGATED 0.2 mg/dL Normal 0.0-0.2 [facility] Comment on above: Performed By: #### T SH, FT3, LIVER, BMP, LIPID #### [facility] [address] [place] [address] Dr. Raimundo Estrada Bilirubin [Mass/Vol] 0.7 mg/dL Normal 0.2-1.0 [facility] Comment on above: Performed By: #### T SH, FT3, LIVER, BMP, LIPID #### [facility] [address] [address] [address] Raimundo Estrada Globulin (S) [Mass/Vol] 3.8 g/dL Normal [facility] Comment on above: Performed By: #### T SH, FT3, LIVER, BMP, LIPID #### [facility] [address] [place] [address] Dr. Raimundo Estrada Protein [Mass/Vol] 7.6 g/dL Normal 6.4-8.2 [facility] Comment on above: Performed By: #### T SH, FT3, LIVER, BMP, LIPID #### [facility] [address] [place] [address] Dr. Raimundo Estrada PROF CHEM 8 (BAS METB)on Anion gap [Moles/Vol] 13.9 mmol/L Normal [facility] Comment on above: Performed By: #### T SH, FT3, LIVER, BMP, LIPID #### [facility] [address] [place] [address] Dr. Raimundo Estrada Calcium [Mass/Vol] 9.3 mg/dL Normal 8.5-10.1 [facility] Comment on above: Performed By: #### T SH, FT3, LIVER, BMP, LIPID #### [facility] [address] [place] [address] Dr. Raimundo Estrada Chloride [Moles/Vol] 104 mmol/L Normal 98-107 [facility] Comment on above: Performed By: #### T SH, FT3, LIVER, BMP, LIPID #### [facility] [address] [place] [address] Dr. Raimundo Estrada CO2 [Moles/Vol] 28.6 mmol/L Normal 21.0-32.0 [facility] Comment on above: Performed By: #### T SH, FT3, LIVER, BMP, LIPID #### [facility] [address] [place] [address] Dr. Raimundo Estrada Creatinine [Mass/Vol] 0.77 mg/dL Normal 0.70-1.30 [facility] Comment on above: Performed By: #### T SH, FT3, LIVER, BMP, LIPID #### [facility] [address] [place] [address] Dr. Raimundo Estrada EGFR-AF EGYPTIAN >60 Normal >=60 [facility] Comment on above: Performed By: #### T SH, FT3, LIVER, BMP, LIPID #### [facility] [address] [place] [address] Dr. Raimundo Estrada EGFR-NON AF EGYPTIAN >60 Normal >=60 [facility] Comment on above: Performed By: #### T SH, FT3, LIVER, BMP, LIPID #### [facility] [address] [place] [address] Dr. Raimundo Estrada Glucose [Mass/Vol] 90 mg/dL Normal 74-106 [facility] Comment on above: Performed By: #### T SH, FT3, LIVER, BMP, LIPID #### [facility] [address] [place] [address] Dr. Raimundo Estrada Potassium [Moles/Vol] 4.5 mmol/L Normal 3.5-5.1 [facility] Comment on above: Performed By: #### T SH, FT3, LIVER, BMP, LIPID #### [facility] [address] [place] [address] Dr. Raimundo Estrada Sodium [Moles/Vol] 142 mmol/L Normal 136-145 [facility] Comment on above: Performed By: #### T SH, FT3, LIVER, BMP, LIPID #### [facility] [address] [place] [address] Dr. Raimundo Estrada Urea nitrogen [Mass/Vol] 22.0 mg/dL Critically high 7.0-18.0 [facility] Comment on above: Performed By: #### T SH, FT3, LIVER, BMP, LIPID #### [facility] [address] [address] [address] Raimundo Estrada Urea nitrogen/Creatinine [Mass ratio] 28.6 mg/mg Normal [facility] Comment on above: Performed By: #### T SH, FT3, LIVER, BMP, LIPID #### [facility] [address] [address] [address] Raimundo Estrada TSHon 09-11-2022 TSH 1.375 uIU/mL Normal 0.358-3.74 0 [facility] Comment on above: Performed By: #### T SH, FT3, LIVER, BMP, LIPID #### [facility] [address] [address] [address] Raimundo Estrada VITAMIN B12on 09-11-2022 Cobalamin (Vitamin B12) [Mass/Vol] 635.0 pg/mL Normal 193.0-986. 0 [facility] Comment on above: Performed By: #### L IPID #### [facility] [address] [address] [address] Raimundo Estrada General Surgery Office/Clini c [...] History Ongoing Asthma BMI 25.0-25.9,adult CAD in [place] artery DDD (degenerative disc disease), lumbar Depression [...] Tab, 25 mg= 1 tab(s), Oral, BID Trout 5/325 Tab, 1 tab(s), Oral, BID Protonix [...] Coronary artery disease: Mother and Father. Normal [facility] Comment on above: Result Comment: Elec [...] sigmoid polyp that was not retrieved. Normal [facility] Pathology Noteon 06-28-2022 Pathology Note [id number]#[id number]:127 Normal [facility] Outside Colonoscopyon 2021 Outside Colonoscopy [id number]#[id number]:127 Normal [facility] HEMOGLOBIN AND HEMATOCRITon 06-26-2022 Hematocrit (Bld) [Volume fraction] 44.2 % Normal 42.0-54.0 [facility] Comment on above: Performed By: #### H GBHCT #### [facility] [address] [place] [address] Dr. Raimundo Estrada Hemoglobin (Bld) [Mass/Vol] 15.0 g/dL Normal 14.0-18.0 [facility] Comment on above: Performed By: #### H GBHCT #### [facility] [address] [place] [address] Dr. Raimundo Estrada Lab Reportson 06-24-2022 Lab Reports [id number]#[id number]:127 Normal [facility] Covid-19 PCR (CVDTBH)on 06-06 SARS-CoV-2 (COVID-19) RNA DAHLIA+probe Ql (Unsp spec) Not detected Normal NOT DETECTED [facility] Comment on above: Result Comment: This test is not yet approved or cleared by the [place] FDA. When there are no FDA-approved or cleared tests available, and other criteria are met, FDA can make tests available under an emergency access mechanism called an Emergency Use Authorization (EUA). The EUA for this test is supported by the [employer] Worker of Health and Human Service's (HHS's) declaration [...] SARS-CoV-2. Performed By: #### H GBT #### [facility] [address] [place] [address] Dr. Raimundo Estrada Consent for Procedure/Surger yon 06-03-2022 Consent for Procedure/Surgery [id number]#[id number]:127 Normal [facility] Pre-Certification Formon Pre-Certification Form [id number]#[id number]:127 Normal [facility] Ambulatory Visit Summaryon 0 05-31-2022 Ambulatory Visit Summary NOEL ALVA :1960 Visit Date:05/31/2022 Ambulatory Visit Instructions Your Diagnosis Epigastric pain Hematemesis Your Care Team Attending Physician - EMILY DRUMMOND, Julian Davis Primary Care Physician - ROMARIO MAN MD Referring Physician - ROMARIO MAN MD This Is Your Medications List pantoprazole (Protonix 40 mg Tab-) Contact prescribing physician if questions or concerns acetaminophen-hydrocodone (Trout 5/325 Tab) albuterol (albuterol HFA 90 mcg/inh [...] Tab) tizanidine (Zanaflex) Procedures Performed Cardiac catheterization (2018), Cardiac catheterization (2006), Cataract [...] Epigastric pain Hematemesis Refills: 3 Pickup at [facility] Unchanged acetaminophen-hydrocodone (Trout 5/ 325 Tab) 1 Tablets By Mouth [...] physician if questions or concerns Pharmacy Information [facility]: [address] [facility] [place] [id number] [phone] Allergies No Known Allergies No Known Medication Allergies Problems Ongoing - Any problem that you are currently receiving treatment for. Asthma BMI 25.0-25.9,adult CAD in [place] artery DDD (degenerative disc disease), lumbar Depression Epigastric pain Gouty arthritis Hematemesis Iron deficiency anemia Vitamin D deficiency Normal [facility] Lab Reportson 05-30-2022 Lab Reports [id number]#[id number]:127 Normal [facility] Lab Reportson 05-23-2022 Lab Reports [id number]#[id number]:127 Normal [facility] Lab Reports [id number]#1.00CD:127 Normal [facility] Physician Referralon 022 Physician Referral [id number]#[id number]:127 Normal [facility] CBC AUTO DIFFon 04-03-2022 BASO # 0.0 103/ul Normal 0.0-0.1 [facility] Comment on above: Performed By: #### C BC #### [facility] [address] [address] [address] Raimundo Estrada Basophils/100 WBC (Bld) 0.3 % Normal 0.2-2.0 [facility] Comment on above: Performed By: #### C BC #### [facility] [address] [address] [address] Raimundo Estrada EO # 0.1 103/ul Normal 0.0-0.7 [facility] Comment on above: Performed By: #### C BC #### [facility] [address] [address] [address] Raimundo Estrada Eosinophils/100 WBC (Bld) 0.7 % Critically low 0.9-7.0 [facility] Comment on above: Performed By: #### C BC #### [facility] [address] [address] [address] Raimundo Estrada Erythrocyte distribution width (RBC) [Ratio] 14.4 % Normal 11.0-15.0 [facility] Comment on above: Performed By: #### C BC #### [facility] [address] [place] [address] Dr. Raimundo Estrada Hematocrit (Bld) [Volume fraction] 38.2 % Critically low 42.0-54.0 [facility] Comment on above: Performed By: #### C BC #### [facility] [address] [place] [address] Dr. Raimundo Estrada Hemoglobin (Bld) [Mass/Vol] 12.8 g/dL Critically low 14.0-18.0 [facility] Comment on above: Performed By: #### C BC #### [facility] [address] [place] [address] Dr. Raimundo Estrada IG # 0.04 10e3/ul Critically high 0.00-0.03 [facility] Comment on above: Performed By: #### C BC #### [facility] [address] [place] [address] Dr. Raimundo Estrada IG % 0.3 % Normal 0.0-0.5 [facility] Comment on above: Performed By: #### C BC #### [facility] [address] [place] [address] Dr. Raimundo Estrada LYMPH # 1.1 103/ul Critically low 1.2-3.8 [facility] Comment on above: Performed By: #### C BC #### [facility] [address] [place] [address] Dr. Raimundo Estrada Lymphocytes/100 WBC (Bld) 9.4 % Critically low 20.5-60.0 [facility] Comment on above: Performed By: #### C BC #### [facility] [address] [place] [address] Dr. Raimundo Estrada MANUAL DIFF REQ NO Normal [facility] Comment on above: Performed By: #### C BC #### [facility] [address] [place] [address] Dr. Raimundo Estrada MCH (RBC) [Entitic mass] 30.7 pg Normal 25.9-34.0 [facility] Comment on above: Performed By: #### C BC #### [facility] [address] [address] [address] Raimundo Estrada MCHC (RBC) [Mass/Vol] 33.5 g/dL Normal 29.9-35.2 [facility] Comment on above: Performed By: #### C BC #### [facility] [address] [address] [address] Raimundo Estrada MCV (RBC) [Entitic vol] 91.6 fL Normal 80.0-94.0 [facility] Comment on above: Performed By: #### C BC #### [facility] [address] [place] [address] Dr. Raimundo Estrada MONO # 0.7 103/ul Normal 0.3-0.8 [facility] Comment on above: Performed By: #### C BC #### [facility] [address] [address] [address] Raimundo Estrada Monocytes/100 WBC (Bld) 5.8 % Normal 1.7-12.0 [facility] Comment on above: Performed By: #### C BC #### [facility] [address] [place] [address] Dr. Raimundo Estrada NEUT # 9.6 103/ul Critically high 1.4-6.5 [facility] Comment on above: Performed By: #### C BC #### [facility] [address] [address] [address] Raimundo Estrada Neutrophils/100 WBC (Bld) 83.5 % Critically high 43.0-75.0 [facility] Comment on above: Performed By: #### C BC #### [facility] [address] [address] [address] Raimundo Estrada Platelet mean volume (Bld) [Entitic vol] 9.3 fL Critically low 9.5-13.5 [facility] Comment on above: Performed By: #### C BC #### [facility] [address] [place] [address] Dr. Raimundo Estrada PLT 165 103/ul Normal 150-450 [facility] Comment on above: Performed By: #### C BC #### [facility] [address] [address] [address] Raimundo Estrada RBC 4.17 106/ul Critically low 4.70-6.10 [facility] Comment on above: Performed By: #### C BC #### [facility] [address] [address] [address] Raimundo Estrada WBC 11.6 103/ul Critically high 4.0-11.0 [facility] Comment on above: Performed By: #### C BC #### [facility] [address] [address] [address] Raimundo Estrada IRONon 04-03-2022 Iron [Mass/Vol] 63.0 ug/dL Critically low 65.0-175.0 [facility] Comment on above: Performed By: #### I HUBERT #### [facility] [address] [address] [address] Raimundo Estrada PROTIMEon 04-03-2022 INR Coag (PPP) [Relative time] 0.98 {INR} Normal [facility] Comment on above: Performed By: #### H GBHCT #### [facility] [address] [address] [address] Raimundo Estrada INR GUIDELINES SEE BELOW Normal [facility] Comment on above: Result Comment: KEIRA RED INR: 2.0 - 3.0 CONDITIONS NOT LISTED BELOW 2.5 - 3.5 FOR PROSTHETIC HEART VALVE REPLACEMENT 2.5 - 3.5 RECURRENT THROMBOSIS Performed By: #### H GBHCT #### [facility] [address] [address] [address] Raimundo Estrada PT Coag (PPP) [Time] 10.6 s Normal 9.0-11.6 [facility] Comment on above: Performed By: #### H GBHCT #### [facility] [address] [address] [address] Raimundo Estrada PTTon 04-03-2022 aPTT Coag (Bld) [Time] 26.2 s Normal 22.3-36.2 [facility] Comment on above: Performed By: #### H GBHCT #### [facility] [address] [address] [address] Raimundo Estrada Sedimentation Rateon 022 Sed Rate 10 [facility] LIPID PROFILEon 03-12-2022 CHOL-HDL RATIO NORM SEE BELOW Normal [facility] Comment on above: Result Comment: 3.3 - 4.4 LOW RISK 4.4 - 7.1 AVERAGE RISK 7.1 - 11.0 MODERATE RISK >11.0 HIGH RISK Performed By: #### L IPID #### [facility] [address] [address] [address] Raimundo Estrada Cholesterol [Mass/Vol] 126 mg/dL Normal <=200 [facility] Comment on above: Performed By: #### L IPID #### [facility] [address] [address] [address] Raimundo Estrada Cholesterol in HDL [Mass/Vol] 68 mg/dL Critically high 40-60 [facility] Comment on above: Performed By: #### L IPID #### [facility] [address] [address] [address] Raimundo Estrada Cholesterol in LDL [Mass/Vol] 52.0 mg/dL Normal [facility] Comment on above: Performed By: #### L IPID #### [facility] [address] [address] [address] Raimundo Estrada Cholesterol.total/Ch olesterol in HDL [Mass ratio] 1.9 {ratio} Normal [facility] Comment on above: Performed By: #### L IPID #### [facility] [address] [address] [address] Raimundo Estrada HDL NORMAL > or = 60 mg/dl - LO W CARDIOVASCULAR RISK <40 mg/dl - HIGH CARDIOVASCULAR RISK Normal [facility] Comment on above: Performed By: #### L IPID #### [facility] [address] [address] [address] Raimundo Estrada LDL CALC NORMAL SEE BELOW Normal [facility] Comment on above: Result Comment: <100 mg/dl OPTIMAL 100 - 129 mg/dl NEAR OR ABOVE OPTIMAL 130 - 159 mg/dl BORDERLINE HIGH 160 - 189 mg/dl HIGH >190 mg/dl VERY HIGH Performed By: #### L IPID #### [facility] [address] [place], [place] [address] Dr. Raimundo Estrada Triglyceride [Mass/Vol] 30 mg/dL Normal <=150 [facility] Comment on above: Performed By: #### L IPID #### [facility] [address] [place], [place] [address] Dr. Raiumndo Estrada VLDL CALC 6.0 mg/dL Normal [facility] Comment on above: Performed By: #### L IPID #### [facility] [id number] Raimundo Estrada CBC Auto DifferentialOrdered By: Julian Dougherty on 03-09-2021 Absolute Eos # <0.[address] [facility] Work Phone: Absolute Immature Granulocyte 0.04 [employer] Work Phone: Absolute Lymph # 1.49 [facility] Work Phone: Absolute [place] # 1.27 [facility] Work Phone: Basophils (Bld) [#/Vol] 0.03 10*3/uL [employer] Work Phone: Basophils/100 WBC (Bld) 0 % 0 - 2 % [employer] Work Phone: Differential Type NOT REPORTED [employer] Phone: Eosinophils/100 WBC (Bld) 0 % Low 1 - 4 % [employer] Phone: Hematocrit (Bld) [Volume fraction] 41.8 % 40.7 - 50.3 % [employer] Phone: Hemoglobin.gastroint estinal spec 1 Ql (Stl) 14.3 g/dL 13.0 - 17.0 g/dL [employer] Work Phone: Immature granulocytes/100 WBC (Bld) 0 % 0 [employer] Phone: Lymphocytes/100 WBC (Bld) 14 % Low 24 - 43 % [employer] Phone: MCH (RBC) [Entitic mass] 30.6 pg 25.2 - 33.5 pg [employer] Phone: MCHC (RBC) [Mass/Vol] 34.2 g/dL 28.4 - 34.8 g/dL [employer] Phone: MCV (RBC) [Entitic vol] 89.5 fL 82.6 - 102.9 fL [employer] Phone: Monocytes/100 WBC (Bld) 12 % 3 - 12 % [employer] Phone: NRBC Automated 0.0 0.0 per 100 WBC [employer] Phone: Platelet distribution width (Bld) [Ratio] 13.2 % 11.8 - 14.4 % [employer] Phone: Platelet Estimate NOT REPORTED [employer] Phone: Platelet mean volume (Bld) [Entitic vol] 10.3 fL 8.1 - 13.5 fL [employer] Phone: Platelets (Bld) [#/Vol] 169 10*3/uL [employer] Phone: RBC (Bld) [#/Vol] 4.67 10*6/uL 4.21 - 5.77 m/uL [employer] Phone: RBC (Bld) [#/Vol] NOT REPORTED [employer] Phone: Segmented neutrophils/100 WBC (Bld) 74 % High 36 - 65 % [employer] Work Phone: Segs Absolute 7.59 [employer] Work Phone: WBC (Bld) [#/Vol] 10.4 10*3/uL [employer] Phone: WBC (Bld) [#/Vol] NOT REPORTED [employer] Phone: No Panel InformationOrdered By: Julian Dougherty on 03-09-2021 Interpretation and review of laboratory results Abnormal [employer] Phone: [employer] Phone: Sedimentation RateOrdered By : Julian Dougherty on 03-09-2021 Sed Rate 63 mm High 0 - 20 mm [employer] Phone: Uric AcidOrdered By: Julian Dougherty on 03-09-2021 Urate [Mass/Vol] 4.3 mg/dL 3.4 - 7.0 mg/dL [employer] Phone: XR WRIST RIGHT (MIN 3 VIEWS) Ordered By: Julian Dougherty on 03-09-2021 Arthritic changes an d mild soft tissue swelling without acute osseous abnormality. [employer] Phone: EXAMINATION: 3 XRAY VIEWS OF THE [...] No acute fracture, or dislocation is noted. [employer] Phone: Mauri, [employer] Incoming R adiant Results From [facility] - 03/09/2021 10:56 AM EDT EXAMINATION: 3 [...] soft tissue swelling without acute osseous abnormality. 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 - Additional Measurements:ICAPSV/CCAPSV 0.76.ICAEDV/CCAEDV 1.49. 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 - Additional Measurements:ICAPSV/CCAPSV 0.76.ICAEDV/CCAEDV 1.49. [place], [place] CBC auto differentialon 10- 3-2020 Basophils (Bld) [#/Vol] 0.04 10*3/uL [place] Basophils/100 WBC (Bld) 0 % 0 - 2 % [place] Differential Type NOT REPORTED [place] Eosinophils (Bld) [#/Vol] 0.04 10*3/uL [place] Eosinophils/100 WBC (Bld) 0 % Low 1 - 4 % [place] Erythrocyte distribution width (RBC) [Ratio] 13.9 % 11.8 - 14.4 % [place] Hematocrit (Bld) [Volume fraction] 42.7 % 40.7 - 50.3 % [place] Hemoglobin (Bld) [Mass/Vol] 14.3 g/dL 13 - 17 g/dL [place] Immature granulocytes (Bld) [#/Vol] 0.03 10*3/uL [place] Immature granulocytes (Bld) [#/Vol] 0 % 0 [place] Lymphocytes (Bld) [#/Vol] 1.95 10*3/uL [place] Lymphocytes/100 WBC (Bld) 20 % Low 24 - 43 % [place] MCH (RBC) [Entitic mass] 31.2 pg 25.2 - 33.5 pg [place] MCHC (RBC) [Mass/Vol] 33.5 g/dL 28.4 - 34.8 g/dL [place] MCV (RBC) [Entitic vol] 93.0 fL 82.6 - 102.9 fL [place] Monocytes (Bld) [#/Vol] 0.96 10*3/uL [place] Monocytes/100 WBC (Bld) 10 % 3 - 12 % [place] Platelet mean volume (Bld) [Entitic vol] 10.2 fL 8.1 - 13.5 fL [place] Platelets (Bld) [#/Vol] NOT REPORTED [place] Platelets (Bld) [#/Vol] 189 10*3/uL [place] RBC (Bld) [#/Vol] 4.59 10*6/uL 4.21 - 5.77 m/uL [place] RBC morphology finding Nom (Bld) NOT REPORTED [place] Segmented neutrophils/100 WBC (Bld) 70 % High 36 - 65 % [place] Segs Absolute 7.00 [place] WBC (Bld) [#/Vol] 10.0 10*3/uL [place] WBC (Bld) [#/Vol] 0.0 10*3/uL 0.0 per 100 WBC [place] WBC Morphology NOT REPORTED [place], [place] CT ABDOMEN PELVIS WO CONTRAS T [...] to suggest a definite acute inflammatory process. [place], [place] EXAMINATION: [facility] SERVICES ABDOMEN AND PELVIS WITHOUT CONTRAST 07/18/2020 8:41 [...] and moderate canal stenosis. No pars defects. [facility]- [place], [place] Mauri, Mhpn Incoming R adiant Results From [facility] - 07/18/2020 9:12 AM EDT EXAMINATION: CT [...] to suggest a definite acute inflammatory process. [place] Comprehensive Metabolic Pane pat 07-18-2020 Albumin [Mass/Vol] 4.3 g/dL 3.5 - 5.2 g/dL [place] Albumin/Globulin [Mass ratio] 1.5 {ratio} [place] ALP [Catalytic activity/Vol] 71 U/L 40 - 129 U/L [place] ALT [Catalytic activity/Vol] 26 U/L 5 - 41 U/L [place] Anion gap [Moles/Vol] 13 mmol/L 9 - 17 mmol/L [place] AST [Catalytic activity/Vol] 26 U/L <40 [place] Bilirubin Ql (U) 1.44 mg/dL High 0.3 - 1.2 mg/dL [place] Bun/Cre Ratio 28 [place] Calcium [Mass/Vol] 9.4 mg/dL 8.6 - 10. 4 mg/dL [place] Chloride [Moles/Vol] 103 mmol/L 98 - 10 7 mmol/L [place] CO2 [Moles/Vol] 23 mmol/L 20 - 31 mmol/L [place] Creatinine [Mass/Vol] 0.79 mg/dL 0.7 - 1.2 mg/dL [place] GFR >60 >60 mL/min [place] GFR Non- >60 >60 mL/min [place] Glucose [Mass/Vol] 93 mg/dL 70 - 99 mg/dL [place] Potassium [Moles/Vol] 3.9 mmol/L 3.7 - 5.3 mmol/L [place] Protein [Mass/Vol] 7.1 g/dL 6.4 - 8.3 g/dL [place] Sodium [Moles/Vol] 139 mmol/L 135 - 144 mmol/L [place] Urea nitrogen [Mass/Vol] 22 mg/dL High 6 - 20 mg/dL [place] EKG 12 Leadon 07-18-2020 Atrial Rate 58 BPM [place] P [place] 45 degrees [place] P-R Interval 138 ms [place], [place] Q-T Interval 478 ms [place] QRS Duration 74 ms [place] QTc Calculation (Bazett) 469 ms [place] R [place] 49 degrees [place], [place] T [place] 129 degrees [place] Ventricular Rate 58 BPM [place], [place] Sinus bradycardia T wave abnormality, consider lateral ischemia Prolonged QT Abnormal ECG When compared with ECG of 14-JUN-2019 10:26, Nonspecific T wave abnormality has replaced inverted T waves in Inferior leads T wave inversion less evident in Anterior leads Confirmed by JW KAY ([id number]) on 07/18/2020 11:37:03 AM [place] Mauri, Mhpn Incoming E kg Results From [facility] - 07/18/2020 11:37 AM EDT Sinus bradycardia T wave abnormality, consider lateral ischemia Prolonged QT Abnormal ECG When compared with ECG of 14-JUN-2019 10:26, Nonspecific T wave abnormality has replaced inverted T waves in Inferior leads T wave inversion less evident in Anterior leads Confirmed by JW KAY ([id number]) on 07/18/2020 11:37:03 AM [place] Lipaseon 07-18-2020 Lipase [Catalytic activity/Vol] 30 U/L 13 - 60 U/L [place] Metabolic Panelon 07-18-2020 GFR/1.73 sq M predicted among non-blacks MDRD (S/P/Bld) [Vol rate/Area] [place], [place] Comment on above: Stage 1: Some [...] body mass. Additional eGFR calculator available at: http://www.OpenSearchServer/multiple_crcl_2012.htm Microscopic Urinalysison Amorphous, UA NOT REPORTED None [place], [place] Bacteria, UA NOT REPORTED None [place] Casts UA NOT REPORTED /LPF [place] Crystals, UA NOT REPORTED None /HPF [place] Epithelial Cells UA 0 TO 2 [place] Mucus, UA NOT REPORTED None [place] Other Observations UA NOT REPORTED NOT REQ. [place] RBC (U) [#/Vol] None [place], [place] Renal Epithelial, UA NOT REPORTED 0 /HPF [place] Trichomonas, UA NOT REPORTED None [place] WBC, UA 0 TO 2 [place] Yeast, UA NOT REPORTED None [place], [place] - [place] Otheron 07-18-2020 Interpretation and review of laboratory results Abnormal [place] Troponinon 07-18-2020 Troponin I.cardiac [Mass/Vol] NOT REPORTED [place] Troponin I.cardiac [Mass/Vol] NOT REPORTED [place] Troponin T.cardiac [Mass/Vol] NOT REPORTED <0.03 ng/mL [place] Troponin T.cardiac [Mass/Vol] NOT REPORTED <0.03 ng/mL [place] Troponin, High Sensitivity 21 ng/L 0 - 22 ng/L [place] Comment on above: High Sensitivity Troponin values cannot be compared with other Troponin methodologies. Patients with high levels of Biotin oral intake (i.e >5mg/day) may have falsely decreased Troponin levels. Samples collected within 8 hours of biotin intake may require additional information for diagnosis. Troponin, High Sensitivity 18 ng/L 0 - 22 ng/L [place] Comment on above: High Sensitivity Troponin values cannot be compared with other Troponin methodologies. Patients with high levels of Biotin oral intake (i.e >5mg/day) may have falsely decreased Troponin levels. Samples collected within 8 hours of biotin intake may require additional information for diagnosis. Urinalysis Reflex to Culture on 07-18-2020 Bilirubin Urine Negative NEGATIVE [place] Color, UA YELLOW YELLOW [place] Glucose, Ur Negative NEGATIVE [place] Interpretation and review of laboratory results Abnormal [place] Ketones Ql (U) 1+ Abnormal NEGATIVE [place] Leukocyte esterase Test strip Ql (U) Negative NEGATIVE [place] Nitrite, Urine Negative NEGATIVE [place] pH, UA 7.0 [place] Protein (U) [Mass/Vol] Negative NEGATIVE [place] Specific [place], UA 1.020 [place], [place] Turbidity UA CLEAR CLEAR [place] Urinalysis Comments NOT REPORTED [place], [place] Urine Hgb Negative NEGATIVE [place] Urobilinogen, Urine Normal Normal [place] XR CHEST (SINGLE VIEW FRONTA L)on 07-18-2020 Mauri, Mhpn Incoming R adiant Results From [facility] - 07/18/2020 8:54 AM EDT EXAMINATION: ONE XRAY VIEW OF THE CHEST 07/18/2020 8:44 am COMPARISON: June 14, 2019 HISTORY: ORDERING SYSTEM PROVIDED HISTORY: epig pain TECHNOLOGIST PROVIDED HISTORY: epig pain FINDINGS: Is no evidence of focal infiltrate, effusion, pneumothorax. Heart mediastinum appear normal. Visualized bony thorax shows no acute abnormality. IMPRESSION: No acute findings of the chest, stable when compared to previous. [place] EXAMINATION: ONE XRA Y VIEW OF THE CHEST 07/18/2020 8:44 am COMPARISON: June 14, 2019 HISTORY: ORDERING SYSTEM PROVIDED HISTORY: epig pain TECHNOLOGIST PROVIDED HISTORY: epig pain FINDINGS: Is no evidence of focal infiltrate, effusion, pneumothorax. Heart mediastinum appear normal. Visualized bony thorax shows no acute abnormality. [place] No acute findings of the chest, stable when compared to previous. [place] CBC Auto Differentialon 09-0 Basophils (Bld) [#/Vol] 0.05 10*3/uL [place] Basophils/100 WBC (Bld) 1 % 0 - 2 % [place] Differential Type NOT REPORTED [place] Eosinophils (Bld) [#/Vol] 10*3/uL [place] Eosinophils/100 WBC (Bld) 0 % Low 1 - 4 % [place] Erythrocyte distribution width (RBC) [Ratio] 12.9 % 11.8 - 14.4 % [place] Hematocrit (Bld) [Volume fraction] 45.7 % 40.7 - 50.3 % [place] Hemoglobin (Bld) [Mass/Vol] 15.5 g/dL 13 - 17 g/dL [place] Immature granulocytes (Bld) [#/Vol] 10*3/uL [place] Immature granulocytes (Bld) [#/Vol] 0 % 0 [place] Lymphocytes (Bld) [#/Vol] 1.83 10*3/uL [place] Lymphocytes/100 WBC (Bld) 19 % Low 24 - 43 % [place] MCH (RBC) [Entitic mass] 31.1 pg 25.2 - 33.5 pg [place] MCHC (RBC) [Mass/Vol] 33.9 g/dL 28.4 - 34.8 g/dL [place] MCV (RBC) [Entitic vol] 91.6 fL 82.6 - 102.9 fL [place] Monocytes (Bld) [#/Vol] 0.86 10*3/uL [place] Monocytes/100 WBC (Bld) 9 % 3 - 12 % [place] Platelet mean volume (Bld) [Entitic vol] 9.7 fL 8.1 - 13.5 fL [place] Platelets (Bld) [#/Vol] 195 10*3/uL [place] Platelets (Bld) [#/Vol] NOT REPORTED [place] RBC (Bld) [#/Vol] 4.99 10*6/uL 4.21 - 5.77 m/uL [place] RBC morphology finding Nom (Bld) NOT REPORTED [place] Segmented neutrophils/100 WBC (Bld) 71 % High 36 - 65 % [place] Segs Absolute 7.08 [place] WBC (Bld) [#/Vol] 9.9 10*3/uL [place] WBC (Bld) [#/Vol] 0.0 10*3/uL 0.0 per 100 WBC [place] WBC Morphology NOT REPORTED [place] Comprehensive Metabolic Pane l w/ Reflex to MGon 06-14-2019 Albumin [Mass/Vol] 4.4 g/dL 3.5 - 5.2 g/dL [place] Albumin/Globulin [Mass ratio] 1.2 {ratio} [place] ALP [Catalytic activity/Vol] 77 U/L 40 - 129 U/L [place] ALT [Catalytic activity/Vol] 19 U/L 5 - 41 U/L [place] Anion gap [Moles/Vol] 15 mmol/L 9 - 17 mmol/L [place] AST [Catalytic activity/Vol] 22 U/L <40 [place] Bilirubin Ql (U) 0.61 mg/dL 0.3 - 1.2 mg/dL [place] Bun/Cre Ratio 23 [place] Calcium [Mass/Vol] 10.0 mg/dL 8.6 - 10. 4 mg/dL [place] Chloride [Moles/Vol] 98 mmol/L 98 - 10 7 mmol/L [place] CO2 [Moles/Vol] 24 mmol/L 20 - 31 mmol/L [place] Creatinine [Mass/Vol] 0.82 mg/dL 0.7 - 1.2 mg/dL [place] GFR >60 >60 mL/min [place] GFR Non- >60 >60 mL/min [place] Glucose [Mass/Vol] 98 mg/dL 70 - 99 mg/dL [place] Potassium [Moles/Vol] 4.0 mmol/L 3.7 - 5.3 mmol/L [place] Protein [Mass/Vol] 8.2 g/dL 6.4 - 8.3 g/dL [place] Sodium [Moles/Vol] 137 mmol/L 135 - 144 mmol/L [place] Urea nitrogen [Mass/Vol] 19 mg/dL 6 - 20 mg/dL [place] D-Dimer, Quantitativeon D-Dimer, Quant 0.42 [place], [place] Comment on above: Elevated levels of [...] activity/Vol] 37 U/L 13 - 60 U/L [place] Metabolic Panelon 06-14-2019 GFR/1.73 sq M predicted among non-blacks MDRD (S/P/Bld) [Vol rate/Area] [place] Comment on above: Average GFR for 50-5 9 years old: 93 mL/min/1.73sq m Chronic Kidney Disease: <60 mL/min/1.73sq m Kidney failure: <15 mL/min/1.73sq m eGFR calculated using average adult body mass. Additional eGFR calculator available at: http://www.OpenSearchServer/multiple_crcl_2012.htm Stage 1: Some kidney damage normal GFR Stage 2: Mild kidney damage GFR 60-89 Stage 3: Moderate kidney damage GFR 30-59 Stage 4: Severe kidney damage GFR 15-29 Stage 5: Severe kidney damage GFR <15 ESRD - chronic treatment by dialysis or transplant Otheron 06-14-2019 Interpretation and review of laboratory results Abnormal [place] Troponinon 06-14-2019 Troponin I.cardiac [Mass/Vol] [place] Comment on above: Reference Range: <0.03 Within reference range. 0.03-0.09 Possible myocardial damage. Repeat at appropriate intervals to rule out chronic elevation. >= 0.10 Indicative of myocardial damage. Patients with high levels of Biotin oral intake (i.e >5mg/day) may have falsely decreased Troponin T levels. Samples collected within 8 hours of biotin intake may require additional information for diagnosis. Troponin I.cardiac [Mass/Vol] [place] Comment on above: Reference Range: <0.03 [...] diagnosis. Troponin T.cardiac [Mass/Vol] ug/L <0.03 ng/mL [place] Comment on above: Troponin T results c annot be compared to Troponin-I results. Troponin T.cardiac [Mass/Vol] ug/L <0.03 ng/mL [place] Comment on above: Troponin T results c annot be compared to Troponin-I results. Troponin, High Sensitivity NOT REPORTED 0 - 22 ng/L [place] Troponin, High Sensitivity NOT REPORTED 0 - 22 ng/L [facility] APTTon 01-13-2018 aPTT 24.4 s Normal 20.5-30.5 [facility] Comment on above: Result Comment: [address] [address] Performed By: #### C BC, PTT, TROPI, GLYHGB ####[address] [address] Basic Metabolic Profon 01-13 (cont.) Normal [facility] Comment on above: Result Comment: Aver age GFR for 50-59 years old: 93 mL/min/1.73sq mChronic Kidney Disease: <60 mL/min/1.73sq mKidney failure: <15 mL/min/1.73sq meGFR calculated using average adult body mass. Additional eGFR calculator available at:http://www.OpenSearchServer/multiple_crcl_2011.htm[address] [address] Performed By: #### C BC, PTT, TROPI, GLYHGB ####[address] [address] (cont.) Normal [facility] Comment on above: Result Comment: Aver age GFR for 50-59 years old: 93 mL/min/1.73sq mChronic Kidney Disease: <60 mL/min/1.73sq mKidney failure: <15 mL/min/1.73sq meGFR calculated using average adult body mass. Additional eGFR calculator available at:http://www.OpenSearchServer/multiple_crcl_2012.htm[address] [address] Performed By: #### C BC, PTT, TROPI, GLYHGB ####[address] [address] Anion gap 11 mmol/L Normal 9-17 [facility] Comment on above: Performed By: #### C BC, PTT, TROPI, GLYHGB ####[facility] [address] [place] [address] Anion gap 9 mmol/L Normal 9-17 [facility] Comment on above: Performed By: #### C BC, PTT, TROPI, GLYHGB ####[facility] [address] [place] [address] BUN/CRE Ratio NOT REPORTED Normal -20 [facility] Comment on above: Performed By: #### C BC, PTT, TROPI, GLYHGB ####[facility] [address] [place] [address] BUN/CRE Ratio NOT REPORTED Normal -20 [facility] Comment on above: Performed By: #### C BC, PTT, TROPI, GLYHGB ####[facility] [address] [place] [address] Calcium 8.6 mg/dL Normal 8.6-10.4 [facility] Comment on above: Performed By: #### C BC, PTT, TROPI, GLYHGB ####[facility] [address] [place] [address] Calcium 9.3 mg/dL Normal 8.6-10.4 [facility] Comment on above: Performed By: #### C BC, PTT, TROPI, GLYHGB ####[facility] [address] [place] [address] Chloride 100 mmol/L Normal 98-107 [facility] Comment on above: Performed By: #### C BC, PTT, TROPI, GLYHGB ####[facility] [address] [place] [address] Chloride 102 mmol/L Normal 98-107 [facility] Comment on above: Performed By: #### C BC, PTT, TROPI, GLYHGB ####[facility] [address] [place] [address] CO2 24 mmol/L Normal 20-31 [facility] Comment on above: Performed By: #### C BC, PTT, TROPI, GLYHGB ####[facility] [address]osiwl3368 [place] [address] CO2 24 mmol/L Normal 20-31 [facility] Comment on above: Performed By: #### C BC, PTT, TROPI, GLYHGB ####[facility] [address] [place] [address] Creatinine 0.64 mg/dL Low 0.70-1.20 [facility] Comment on above: Performed By: #### C BC, PTT, TROPI, GLYHGB ####[facility] [place] [address] Creatinine 0.75 mg/dL Normal 0.70-1.20 [facility] Comment on above: Performed By: #### C BC, PTT, TROPI, GLYHGB ####[facility] [place] [address] eGFR (non-black) mL/min/{1.73_m2} Normal >60 [facility] Comment on above: Performed By: #### C BC, PTT, TROPI, GLYHGB ####[facility] [address] [place] [address] eGFR (non-black) mL/min/{1.73_m2} Normal >60 [facility] Comment on above: Performed By: #### C BC, PTT, TROPI, GLYHGB ####[facility] [address]so[address]frf2888 [place] [address] Glucose mass conc 102 mg/dL High 70-99 [facility] Comment on above: Performed By: #### C BC, PTT, TROPI, GLYHGB ####[facility] L[address]wlossnk9052 [place] [address] Glucose mass conc 104 mg/dL High 70-99 [facility] Comment on above: Performed By: #### C BC, PTT, TROPI, GLYHGB ####[facility] Ulql[address]namloqh2550 [place] [address] Potassium molar conc 3.5 mmol/L Low 3.7-5.3 [facility] Comment on above: Performed By: #### C BC, PTT, TROPI, GLYHGB ####[facility] Xtffqlrdsaqa0228 [place] [address] Potassium molar conc 5.0 mmol/L Normal 3.7-5.3 [facility] Comment on above: Result Comment: TEST CONFIRMED Performed By: #### C BC, PTT, TROPI, GLYHGB ####[address] [address] Sodium 135 mmol/L Normal 135-144 [facility] Comment on above: Performed By: #### C BC, PTT, TROPI, GLYHGB ####[facility] [address]wxlddf7030 [place] [address] Sodium 135 mmol/L Normal 135-144 [facility] Comment on above: Performed By: #### C BC, PTT, TROPI, GLYHGB ####[facility] [address] [place] [address] Staging: NOT REPORTED Normal [facility] Comment on above: Performed By: #### C BC, PTT, TROPI, GLYHGB ####[facility] Kmf[address]qcbkp1818 [place] [address] Staging: NOT REPORTED Normal [facility] Comment on above: Performed By: #### C BC, PTT, TROPI, GLYHGB ####[facility] [address] [place] [address] Urea nitrogen 12 mg/dL Normal 6-20 [facility] Comment on above: Performed By: #### C BC, PTT, TROPI, GLYHGB ####[facility] [address] [place] [address] Urea nitrogen 12 mg/dL Normal 6-20 [facility] Comment on above: Performed By: #### C BC, PTT, TROPI, GLYHGB ####[facility] [address] [place] [address] Discharge Summaryon 01-14-20 18 HIM IP Note OR Manager Trading Normal [facility] Magnesiumon 01-13-2018 Magnesium 2.1 mg/dL Normal 1.6-2.6 [facility] Comment on above: Result Comment: [facility] [place] [address] Performed By: #### C BC, PTT, TROPI, GLYHGB ####[address] [address] Magnesium 2.2 mg/dL Normal 1.6-2.6 [facility] Comment on above: Result Comment: [facility] [address] [place] [address] Performed By: #### C BC, PTT, TROPI, GLYHGB ####[facility] [place] [address] Plan of Careon 01-13-2018 HIM IP Note OR Manager Trading Normal [facility] Progress Noteon 01-13-2018 HIM IP Note OR Manager Trading Normal [facility] HIM IP Note OR Manager Trading Normal [facility] HIM IP Note OR Manager Trading Normal [facility] APTTon 01-12-2018 aPTT 50.8 s High 20.5-30.5 [facility] Comment on above: Result Comment: [facility] [address] [place] [address] Performed By: #### P TT ####[facility] [address] [place] [address] aPTT 48.3 s High 20.5-30.5 [facility] Comment on above: Result Comment: [facility] [address] [place] [address] Performed By: #### P LT, PTT ####[facility] [address] [address] aPTT 47.5 s High 20.5-30.5 [facility] Comment on above: Result Comment: [facility] [address] [place] [address] Performed By: #### P TT ####[address] [address] Platelet Counton 01-12-2018 Platelets 154 10*3/uL Normal 138-453 [facility] Comment on above: Result Comment: [facility] [address] [place] [address] Performed By: #### P LT, PTT ####[address] [address] Progress Noteon 01-12-2018 HIM IP Note OR Manager Trading Normal [facility] APTTon 01-11-2018 aPTT 30.5 s Normal 20.5-30.5 [facility] Comment on above: Result Comment: [facility] [address] [place] [address] Performed By: #### P TT ####[address] [address] aPTT 35.3 s High 20.5-30.5 [facility] Comment on above: Result Comment: [facility] [address] [place] [address] Performed By: #### P TT ####[address] [address] aPTT 38.0 s High 20.5-30.5 [facility] Comment on above: Result Comment: [facility] [address] [place] [address] Performed By: #### P TT ####[address] [address] CBCon 01-11-2018 Erythrocyte distribution width Auto Ratio (RBC) 14.0 % Normal 11.8-14.4 [facility] Comment on above: Performed By: #### C BC, CP, LIPR, MG ####[address] [address] Erythrocytes (RBC) 0.0 per 100 WBC Normal 0.0 M [facility] Comment on above: Result Comment: [facility] [address] [place] [address] Performed By: #### C BC, CP, LIPR, MG ####[address] [address] Erythrocytes (RBC) 4.36 10*6/uL Normal 4.21-5.77 [facility] Comment on above: Performed By: #### C BC, CP, LIPR, MG ####[address] [address] Hematocrit (HCT) 40.6 % Low 40.7-50.3 [facility] Comment on above: Performed By: #### C BC, CP, LIPR, MG ####[address] [address] Hemoglobin mass conc (Bld) 13.3 g/dL Normal 13.0-17.0 [facility] Comment on above: Performed By: #### C BC, CP, LIPR, MG ####[address] [address] MCH 30.5 pg Normal 25.2-33.5 [facility] Comment on above: Performed By: #### C BC, CP, LIPR, MG ####[place] [address] [place] [address] MCHC mass conc (RBC) 32.8 g/dL Normal 28.4-34.8 [facility] Comment on above: Performed By: #### C BC, CP, LIPR, MG ####[facility] [address] [place] [address] MCV 93.1 fL Normal 82.6-102.9 [facility] Comment on above: Performed By: #### C BC, CP, LIPR, MG ####[facility] [address]cf[address]bhdsq5357 [place] [address] Platelet mean volume (PMV) 10.1 fL Normal 8.1-13.5 [facility] Comment on above: Performed By: #### C BC, CP, LIPR, MG ####[facility] [address] [place] [address] Platelets 153 10*3/uL Normal 138-453 [facility] Comment on above: Performed By: #### C BC, CP, LIPR, MG ####[facility] [address] [place] [address] WBC (Leukocytes) 9.5 10*3/uL Normal 3.5-11.3 [facility] Comment on above: Performed By: #### C BC, CP, LIPR, MG ####[address] [address] Comp Metabolic Profon 2017 (cont.) Normal [facility] Comment on above: Result Comment: Aver age GFR for 50-59 years old: 93 mL/min/1.73sq mChronic Kidney Disease: <60 mL/min/1.73sq mKidney failure: <15 mL/min/1.73sq meGFR calculated using average adult body mass. Additional eGFR calculator available at:http://www.[employer].com/multiple_crcl_2012.htm[facility] [address] [place] [address] Performed By: #### C BC, CP, LIPR, MG ####[facility] [place] [address] Alanine aminotransferase (ALT) 17 U/L Normal 5-41 [facility] Comment on above: Performed By: #### C BC, CP, LIPR, MG ####[address] [address] Albumin 3.6 g/dL Normal 3.5-5.2 [facility] Comment on above: Performed By: #### C BC, CP, LIPR, MG ####[address] [address] Albumin/Globulin Ratio 1.3 {ratio} Normal 1.0-2.5 [facility] Comment on above: Performed By: #### C BC, CP, LIPR, MG ####[address] [address] Alkaline Phos 76 U/L Normal 40-129 [facility] Comment on above: Performed By: #### C BC, CP, LIPR, MG ####[address] [address] Anion gap 14 mmol/L Normal 9-17 [facility] Comment on above: Performed By: #### C BC, CP, LIPR, MG ####[address] [address] Aspartate aminotransferase (AST) 15 U/L Normal <40 [facility] Comment on above: Performed By: #### C BC, CP, LIPR, MG ####[facility] [place] [address] Bilirubin Ql (U) 1.13 mg/dL Normal 0.3-1.2 [facility] Comment on above: Performed By: #### C BC, CP, LIPR, MG ####[address] [address] BUN/CRE Ratio NOT REPORTED Normal 9-20 [facility] Comment on above: Performed By: #### C BC, CP, LIPR, MG ####[address] [address] Calcium 8.4 mg/dL Low 8.6-10.4 [facility] Comment on above: Performed By: #### C BC, CP, LIPR, MG ####[address] [address] Chloride 97 mmol/L Low 98-107 [facility] Comment on above: Performed By: #### C BC, CP, LIPR, MG ####[address] [address] CO2 23 mmol/L Normal 20-31 [facility] Comment on above: Performed By: #### C BC, CP, LIPR, MG ####[address] [address] Creatinine 0.63 mg/dL Low 0.70-1.20 [facility] Comment on above: Performed By: #### C BC, CP, LIPR, MG ####[address] [address] eGFR (non-black) mL/min/{1.73_m2} Normal >60 [facility] Comment on above: Performed By: #### C BC, CP, LIPR, MG ####[address] [address] Glucose mass conc 107 mg/dL High 70-99 [facility] Comment on above: Performed By: #### C BC, CP, LIPR, MG ####[facility] HospitalOcscYmslbjgbvndk0799 [place] [address] Potassium molar conc 3.6 mmol/L Low 3.7-5.3 [facility] Comment on above: Performed By: #### C BC, CP, LIPR, MG ####[facility] HospitalAltitude [facility] Mcecoamhsqsu[address] [place] [address] Protein 6.4 g/dL Normal 6.4-8.3 [facility] Comment on above: Performed By: #### C BC, CP, LIPR, MG ####[facility] HospitalOcscPheakxkfsmgv8055 [place] [address] Sodium 134 mmol/L Low 135-144 [facility] Comment on above: Performed By: #### C BC, CP, LIPR, MG ####[facility] HospitalOcscCgrndblqlgrk[address] [place] [address] Staging: NOT REPORTED Normal [facility] Comment on above: Performed By: #### C BC, CP, LIPR, MG ####[facility]cscWkbwzyingz[facility] [place] [address] Urea nitrogen 19 mg/dL Normal 6-20 [facility] Comment on above: Performed By: #### C BC, CP, LIPR, MG ####[facility] HospitalOcscCbcwyjmzqrcv7020 [place] [address] Hemoglobin A1Con 01-11-2018 Glucose mass conc 114 mg/dL Normal [facility] Comment on above: Result Comment: The ADA and AACC recommend providing the estimated average glucose result to permit better patient understanding of their HBA1c result.[address] [address] Performed By: #### C BC, PTT, TROPI, GLYHGB ####[facility] [place] [address] Hemoglobin A1c/Hemoglobin.total mass fraction (Bld) 5.6 % Normal 4.0-6.0 [facility] Comment on above: Performed By: #### C BC, PTT, TROPI, GLYHGB ####[address] [place] [address] Lipid Profileon 01-11-2018 Cholesterol 123 mg/dL Normal <200 [facility] Comment on above: Result Comment: Chol esterol Guidelines: <200 Desirable 200-240 Borderline >240 Undesirable Performed By: #### C BC, CP, LIPR, MG ####[address] [place] [address] Cholesterol in VLDL mass conc NOT REPORTED Normal 1-30 [facility] Comment on above: Performed By: #### C BC, CP, LIPR, MG ####[address] [address] Cholesterol to HDL Ratio 2.0 {ratio} Normal <5 [facility] Comment on above: Performed By: #### C BC, CP, LIPR, MG ####[address] [place] [address] HDL Cholesterol 63 mg/dL Normal >40 [facility] Comment on above: Result Comment: HDL Guidelines: <40 Undesirable 40-59 Borderline >59 Desirable Performed By: #### C BC, CP, LIPR, MG ####[address] [place] [address] LDL Cholesterol 38 mg/dL Normal 0-130 [facility] Comment on above: Result Comment: LDL Guidelines: <100 Desirable 100-129 Near to/above Desirable 130-159 Borderline >159 UndesirableDirect (measured) LDL and calculated LDL are not interchangeable tests. Performed By: #### C BC, CP, LIPR, MG ####[address] [address] Triglyceride 111 mg/dL Normal <150 [facility] Comment on above: Result Comment: Trig lyceride Guidelines: <150 Desirable 150- 199 Borderline 200-499 High >499 Very high Based on AHA Guidelines for fasting triglyceride, July 2012.[facility] [address] [place] [address] Performed By: #### C BC, CP, LIPR, MG ####[facility] [address] [place] [address] Magnesiumon 01-11-2018 Magnesium 2.1 mg/dL Normal 1.6-2.6 [facility] Comment on above: Result Comment: [facility] [address] [place] [address] Performed By: #### C BC, CP, LIPR, MG ####[facility] [address] [place] [address] Plan of Careon 01-11-2018 HIM IP Note OR Manager Trading Normal [facility] HIM IP Note OR Manager Trading Normal [facility] Troponinon 01-11-2018 Troponin I.cardiac mass conc Normal [facility] Comment on above: Result Comment: Refe rence Range: <0.03 Within reference range. 0.03-0.09 Possible myocardial damage.Repeat at appropriate intervals to rule out chronic elevation. >= 0.10 Indicative of myocardial damage.Patients with high levels of Biotin oral intake (i.e >5mg/day) may have falsely decreased Troponin T levels. Samples collected within 8 hours of biotin intake may require additional information for diagnosis.[facility] [place] [address] Performed By: #### T ROPI ####[facility] [place] [address] Troponin T.cardiac mass conc ug/L Normal <0.03 [facility] Comment on above: Result Comment: Trop onin T results cannot be compared to Troponin-I results. Performed By: #### T ROPI ####[address] [address] APTTon 01-10-2018 aPTT 23.8 s Normal 20.5-30.5 [facility] Comment on above: Result Comment: [address] [address] Performed By: #### C BC, PTT, TROPI, GLYHGB ####[address] [address] CBCon 01-10-2018 Erythrocyte distribution width Auto Ratio (RBC) 14.2 % Normal 11.8-14.4 [facility] Comment on above: Performed By: #### C BC, PTT, TROPI, GLYHGB ####[address] [address] Erythrocytes (RBC) 4.47 10*6/uL Normal 4.21-5.77 [facility] Comment on above: Performed By: #### C BC, PTT, TROPI, GLYHGB ####[address] [address] Erythrocytes (RBC) 0.0 per 100 WBC Normal 0.0 [facility] Comment on above: Result Comment: [address] [address] Performed By: #### C BC, PTT, TROPI, GLYHGB ####[address] [address] Hematocrit (HCT) 41.3 % Normal 40.7-50.3 [facility] Comment on above: Performed By: #### C BC, PTT, TROPI, GLYHGB ####[address] [address] Hemoglobin mass conc (Bld) 13.5 g/dL Normal 13.0-17.0 [facility] Comment on above: Performed By: #### C BC, PTT, TROPI, GLYHGB ####[facility] [address] [place] [address] MCH 30.2 pg Normal 25.2-33.5 [facility] Comment on above: Performed By: #### C BC, PTT, TROPI, GLYHGB ####[address] [place] [address] MCHC mass conc (RBC) 32.7 g/dL Normal 28.4-34.8 [facility] Comment on above: Performed By: #### C BC, PTT, TROPI, GLYHGB ####[address] [address] MCV 92.4 fL Normal 82.6-102.9 [facility] Comment on above: Performed By: #### C BC, PTT, TROPI, GLYHGB ####[address] [address] Platelet mean volume (PMV) 10.1 fL Normal 8.1-13.5 [facility] Comment on above: Performed By: #### C BC, PTT, TROPI, GLYHGB ####[address] [place] [address] Platelets 160 10*3/uL Normal 138-453 [facility] Comment on above: Performed By: #### C BC, PTT, TROPI, GLYHGB ####[address] [place] [address] WBC (Leukocytes) 6.8 10*3/uL Normal 3.5-11.3 [facility] Comment on above: Performed By: #### C BC, PTT, TROPI, GLYHGB ####[address] [place] [address] History and Physicalon 01-10 HIM IP Note OR Manager Trading Normal [facility] Plan of Careon 01-10-2018 HIM IP Note OR Manager Trading Normal [facility] Troponinon 01-10-2018 Troponin I.cardiac mass conc Normal [facility] Comment on above: Result Comment: Refe rence Range: <0.03 Within reference range. 0.03-0.09 Possible myocardial damage.Repeat at appropriate intervals to rule out chronic elevation. >= 0.10 Indicative of myocardial damage.Patients with high levels of Biotin oral intake (i.e >5mg/day) may have falsely decreased Troponin T levels. Samples collected within 8 hours of biotin intake may require additional information for diagnosis.[facility] [address] [place], [place] [id number] [phone] Performed By: #### C BC, PTT, TROPI, GLYHGB ####[facility] HospitalOcscYjveqxcpzrde0533 [place] [address] Troponin T.cardiac mass conc ug/L Normal <0.03 [facility] Comment on above: Result Comment: Trop onin T results cannot be compared to Troponin-I results. Performed By: #### C BC, PTT, TROPI, GLYHGB ####[facility] ??? [address] [place] [address] Social History Date Type Detail Facility Start: 09-09-2023 Alcohol Comment 3-4 [facility] DAILY [facility] Start: 12-30-2022 History SDOH Alcohol Frequency 5 [facility] Work Phone: Start: 12-30-2022 History SDOH Alcohol Std Drinks 2 [facility] Work Phone: Start: 03-15-2022 End: 12-30-2022 Exposure to SARS-[facility]-2 (event) [facility] Start: 03-09-2021 End: 12-30-2022 Alcohol intake [facility] Start: 07-18-2020 End: 12-30-2022 Tobacco use and exposure Never used [facility] [place] Start: 09-12-2019 End: 12-30-2022 Alcohol intake Current drinker of alcohol (finding) [place], [place] Start: 06-14-2019 End: 12-30-2022 Tobacco smoking status NHIS Never smoker [facility] Start: 06-14-2019 End: 12-30-2022 Alcohol intake Yes [place], [place] Start: 06-14-2019 Alcohol Comment not every day [place], [place] Start: 1960 Sex Assigned At Not on file [place], [place] Tobacco smoking status Never [facility] [place] How often to you hav e a drink containing alcohol? 4 or more times a week [facility] How many standard dr inks containing alcohol do you have on a typical day? 3 or 4 [employer] How often do you hav e 6 or more drinks on 1 occasion? Daily or almost daily [employer] Vital Signs Date Time Vital Sign Value Performing Clinician Faci lity 2023 06:08-0500 SaO2% (BldA) [Mass fraction] 99 % Nadia Fitzpatrick MD Work Phone: [employer] 2023 05:49-0500 Body temperature 100.09 [degF] Nadia Fitzpatrick MD Work Phone: [facility] 2023 05:49-0500 Diastolic blood pressure 52 mm[Hg] Nadia Fitzpatrick MD Work Phone: [employer] 2023 05:49-0500 Heart rate 89 /min Nadia Fitzpatrick MD Work Phone: [employer] 2023 05:49-0500 Respiratory rate 18 /min Nadia Fitzpatrick MD Work Phone: [employer] 2023 05:49-0500 Systolic blood pressure 151 mm[Hg] Nadia Fitzpatrick MD Work Phone: [facility] 09-18-2023 13:40-0500 Diastolic blood pressure 68 mm[Hg] Shaheen Chappell MD Work Phone: [facility] 09-18-2023 13:40-0500 Heart rate 68 /min Shaheen Chappell MD Work Phone: [facility] 09-18-2023 13:40-0500 SaO2% (BldA) [Mass fraction] 97 % Shaheen Chappell MD Work Phone: [facility] 09-18-2023 13:40-0500 Systolic blood pressure 101 mm[Hg] Shaheen Chappell MD Work Phone: [facility] 09-18-2023 13:10-0500 Respiratory rate 16 /min Shaheen Chappell MD Work Phone: [facility] 09-18-2023 13:00-0500 Body temperature 97 [degF] Shaheen Chappell MD Work Phone: [facility] 09-18-2023 08:35-0500 Body height 167.6 cm Shaheen Chappell MD Work Phone: [facility] 09-18-2023 08:35-0500 Body mass index (BMI) [Ratio] 27.44 kg/m2 Shaheen Chappell MD Work Phone: [facility] 09-18-2023 08:35-0500 Body weight 77.11 kg Shaheen Chappell MD Work Phone: [facility] 08-14-2023 14:38-0500 Body height 167.6 cm Nikhil Mohr MD Work Phone: [facility] 08-14-2023 14:38-0500 Body mass index (BMI) [Ratio] 26.87 kg/m2 Nikhil Mohr MD Work Phone: [facility] 08-14-2023 14:38-0500 Body weight 75.52 kg Nikhil Mohr MD Work Phone: [facility] 08-14-2023 14:38-0500 Diastolic blood pressure 69 mm[Hg] Nikhil Mohr MD Work Phone: [facility] 08-14-2023 14:38-0500 Heart rate 72 /min Nikhil Mohr MD Work Phone: [facility] 08-14-2023 14:38-0500 SaO2% (BldA) [Mass fraction] 98 % Nikhil Mohr MD Work Phone: [facility] 08-14-2023 14:38-0500 Systolic blood pressure 102 mm[Hg] Nikhil Mohr MD Work Phone: [facility] 07-16-2023 13:41-0400 Body height 167.6 cm Jennie Hernandez MD Work Phone: [facility] 07-16-2023 13:41-0400 Body mass index (BMI) [Ratio] 27.11 kg/m2 Jennie Hernandez MD Work Phone: [facility] 07-16-2023 13:41-0400 Body weight 76.2 kg Jennie Hernandez MD Work Phone: [facility] 07-04-2023 09:34-0400 Body height 167.6 cm Jennie Hernandez MD Work Phone: [facility] 07-04-2023 09:34-0400 Body mass index (BMI) [Ratio] 27.12 kg/m2 Jennie Hernandez MD Work Phone: [facility] 07-04-2023 09:34-0400 Body weight 76.2 kg Jennie Hernandez MD Work Phone: [facility] 06-10-2023 10:18-0400 Body height 167.6 cm Jennie Hernandez MD Work Phone: [facility] 06-10-2023 10:18-0400 Body mass index (BMI) [Ratio] 27.12 kg/m2 Jennie Hernandez MD Work Phone: [facility] 06-10-2023 10:18-0400 Body weight 76.2 kg Jennie Hernandez MD Work Phone: [facility] 05-19-2023 09:07-0400 Body height 167.6 cm Jennie Hernandez MD Work Phone: [facility] [employer] [facility] 05-19-2023 09:07-0400 Body mass index (BMI) [Ratio] 27.12 kg/m2 Jennie Hernandez MD Work Phone: [facility] 05-19-2023 09:07-0400 Body weight 76.2 kg Jennie Hernandez MD Work Phone: [facility] 04-18-2023 12:33-0400 Body height 167.6 cm Jennie Hernandez MD Work Phone: [facility] 04-18-2023 12:33-0400 Body mass index (BMI) [Ratio] 26.63 kg/m2 Jennie Hernandez MD Work Phone: [facility] 04-18-2023 12:33-0400 Body weight 74.84 kg Jennie Hernandez MD Work Phone: [facility] 02-25-2023 08:48-0400 Body height 167.6 cm Jennie Hernandez MD Work Phone: [facility] 02-25-2023 08:48-0400 Body mass index (BMI) [Ratio] 26.63 kg/m2 Jennie Hernandez MD Work Phone: [facility] 02-25-2023 08:48-0400 Body weight 74.84 kg Jennie Hernandez MD Work Phone: [facility] 12-31-2022 13:46-0400 Body temperature 97.3 [degF] Rosa Garg DO [facility] 12-31-2022 13:46-0400 Diastolic blood pressure 71 mm[Hg] Rosa Garg DO Work Phone: [facility] 12-31-2022 13:46-0400 Heart rate 72 /min Rosa Garg DO Work Phone[facility] [employer] 12-31-2022 13:46-0400 Respiratory rate 16 /min Rosa Garg DO Work Phone: [facility] 12-31-2022 13:46-0400 SaO2% (BldA) [Mass fraction] 92 % Rosa Garg DO Work Phone: [facility] 12-31-2022 13:46-0400 Systolic blood pressure 102 mm[Hg] Rosa Garg DO Work Phone: [facility] 12-31-2022 02:40-0400 Body mass index (BMI) [Ratio] 25.34 kg/m2 Rosa Garg DO Work Phone: [facility] 12-31-2022 02:40-0400 Body weight 71.2 kg Rosa Garg DO Work Phone: [facility] [employer] 12-30-2022 12:46-0400 Body height 167.6 cm Rosa Garg DO Work Phone: [facility] 05-31-2022 14:26-0400 Blood Pressure Location Julian EMILY [facility] [place] 05-31-2022 14:26-0400 Diastolic blood pressure 60 mm[Hg] Julian DIAZ [facility] [place] 05-31-2022 14:26-0400 Heart rate 66 /min Julian DIAZ [facility] [place] 05-31-2022 14:26-0400 Respiratory rate 16 /min Julian DIAZ [facility] [place] 05-31-2022 14:26-0400 Systolic blood pressure 108 mm[Hg] Julian DIAZ [facility] [place] 03-09-2021 12:45-0400 Respiratory rate 16 /min Julian Dougherty MD [employer] Work Phone: 03-09-2021 10:28-0400 Body height 167.6 cm Julian Dougherty MD [employer] Work Phone: 03-09-2021 10:28-0400 Body mass index (BMI) [Ratio] 25.5 kg/m2 Julian Dougherty MD [employer] Phone: 03-09-2021 10:28-0400 Body temperature 98.49 [degF] Julian Dougherty MD [employer] Phone: 03-09-2021 10:28-0400 Body weight 71.67 kg Julian Dougherty MD [employer] Phone: 03-09-2021 10:28-0400 Heart rate 79 /min Julian Dougherty MD [employer] Phone: 03-09-2021 10:28-0400 SaO2% (BldA) [Mass fraction] 97 % Julian Dougherty MD [employer] Phone: 07-18-2020 09:15-0400 Pulse Oximetry 97 % [employer] [facility] [place] 07-18-2020 08:30-0400 BP Diastolic 96 mm[Hg] [facility] 07-18-2020 08:30-0400 BP Systolic 135 mm[Hg] [facility] 07-18-2020 08:18-0400 Body Temperature 98.01 [degF] [facility] [place], [place] 07-18-2020 08:18-0400 Pulse (Heart Rate) 84 /min [facility], [place] 07-18-2020 08:18-0400 Respiratory Rate 16 /min [facility] [place], [place] 09-12-2019 02:36-0500 BP Diastolic 95 mm[Hg] [facility] , [place] 09-12-2019 02:36-0500 BP Systolic 138 mm[Hg] [facility] , [place] 09-12-2019 01:27-0500 Body Temperature 97.3 [degF] [facility] [place] 09-12-2019 01:27-0500 Pulse (Heart Rate) 86 /min [facility], [place] 09-12-2019 01:27-0500 Pulse Oximetry 97 % [employer] RevelesSivakumar [facility] , [place] 09-12-2019 01:27-0500 Respiratory Rate 18 /min [employer] al[employer] RevelesSiv[facility], [place] 06-14-2019 12:44-0400 BP Diastolic 89 mm[Hg] [facility] [place] 06-14-2019 12:44-0400 BP Systolic 158 mm[Hg] [facility] , [place] 06-14-2019 12:44-0400 Pulse (Heart Rate) 68 /min [facility], [place] 06-14-2019 12:44-0400 Pulse Oximetry 95 % Pablo [facility] , [place] 06-14-2019 12:44-0400 Respiratory Rate 12 /min [facility], [place] 06-14-2019 10:15-0400 BMI (Body Mass Index) 24.53 kg/m2 [facility], [place] 06-14-2019 10:15-0400 Body Temperature 98.01 [degF] Pablo [facility], [place] 06-14-2019 10:15-0400 Body weight 68.95 kg [place], [place] Functional Status Date Assessment Result Facility 05-31-2022 Functional Status N/A General [facility] Clinical Notes 02-21-2022 to 02-11-2024 Discharge InstructionsNursing Notes - Griselda Craig RN - 09/18/2023 2:38 PM ESTNursing Notes - Griselda Craig RN - 09/18/2023 2:38 PM ESTNursing Notes - Venecia Rivera RN - 09/18/2023 2:18 PM EST Note Date & Type Note Facility 02-11-2024 Note [place] [facility] Subjective Noel Alva is a 63 y.o. [...] within normal limits. He underwent cath at [facility] 01/12/2018 due to chest pain [...] the morning. D (more content not included)... [facility] 2023 Hospital Discharge instructions Nadia Fitzpatrick MD [...] care or concern. documented in this encounter [facility] 09-18-2023 Note #Cardiac risk strati fication -Stress [...] Normal diastolic function No significant valvular abnormalities [facility] 09-18-2023 Nurse Note Pt provided with discharge instructions. Pt Iv removed and belongings gathered. Pt was wheeled to car by surgery staff and driven home by family. [employer] 09-18-2023 Miscellaneous Notes Pt provided with discharge [...] this time POST OPERATIVE/PROCEDURE NOTE Noel Alva ([id number]) SURGEON Surgeon(s) and Role: * Shaheen Chappell MD - Primary DEBONE SUPERVISOR Marques ANESTHESIOLOGIST CORRECTIONAL SUPERVISOR: Avinash Adams APRN-CORRECTIONAL SUPERVISOR Student Nurse Cost Specialist: Amanda Murphy SURGICAL STAFF Oncologist: Caryn Tineo RN Registered Nurse Cotton Washer: Angeline Mohan RN Scrub Person: Luiza Calderon [...] 2023 12:13 PM documented in this encounter [facility] 09-18-2023 Nurse Note OT in with pt at this time [facility] 09-18-2023 History of Present illness Narrative 09/18/23 [...] and can help during recovery) Primary Language Botswanan PRIOR LEVEL AM-PAC Activity Inpatient Short Form [...] LUE Assessment WFL Supine to Sit Mobility [place] Level: Supine->Sit contact guard assist Bed Features/Set-up: Supine->Sit Flat Skilled Rationale Verbal cues Skilled Intervention/Details: Supine->Sit pt reorted that he knew how to log roll but twisted to get up even with vcs and attempts to physically assist with proper technique Sit to Stand Transfer [place] Level: Sit->Stand contact guard assist Assistive Device: Sit->Stand 2 wheeled walker Skilled Rationale Hand placement;Verbal cues Skilled Intervention/Details: Sit->Stand pt pulling up on the walker with both hands- cues to push off Stand to Sit Transfer [place] Level: Stand->Sit stand-by assist Assistive Device: Stand->Sit [...] assist with R sock Acute AMPAC Acute [facility] Assessments Daily Activity Inpatient Short Form [...] bed mobility & transfers with supervision to VT. He was provided education review with log [...] Completed? yes Therapist Information License # [place] [id number] General Information Pertinent History of Current Problem The patient is a 62 year old male with sacroiliitis who underwent Right SI fixation. He was referred to physical therapy for post procedure education review & mobility. Jc Farmer, PT documented in this encounter [facility] 09-18-2023 Nurse Note Pt ambulating in [place] with PT without difficulty. [facility] 09-18-2023 Nurse Note PT in with pt at this time [facility] 09-18-2023 Nurse Note Discharge instructions provided, pt states understanding, including the sedentary activity as described, denies questions. [facility] 09-18-2023 Hospital Discharge instructions Venecia Rivera RN - 09/18/2023 1:[address] Chappell [facility] Clin[facility] Post-Operative Spine Surgery Home Going Instructions [...] take percocet prescribed by . Proceed with Trout as prescribed by Dr. Chappell-when Trout is completed, you may resume percocet from [...] this carefully. Please attend family, community and confucianist events as soon as possible after your [...] should be faxed. documented in this encounter [facility] 09-18-[address] Chappell in to see pt at this time [facility] 09-18-2023 Surgery Postoperative evaluation and management note POST OPERATIVE/PROCEDURE NOTE Noel Alva ([id number]) SURGEON Surgeon(s) and Role: * Shaheen Chappell MD - Primary DEBONE SUPERVISOR Marques ANESTHESIOLOGIST CORRECTIONAL SUPERVISOR: Avinash Adams APRN-CORRECTIONAL SUPERVISOR Student Nurse Cost Specialist: Amanda Murphy SURGICAL STAFF Oncologist: Caryn Tineo RN Registered Nurse Cotton Washer: Angeline Mohan RN Scrub Person: Luiza Calderon [...] Chappell MD September 18, 2023 12:13 PM [facility] 08-14-2023 History of Present illness Narrative [facility] NOTE Chief Complaint Patient [...] does not smoke. [facility] [place] He is receiving Percocet and Lyrica. Lyrica [...] lids. There is no papilledema on fundoscopy. 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 Noel was seen today for new patient. Diagnoses and all orders for this visit: Hereditary and idiopathic peripheral neuropathy - HEMOGLOBIN A1C; Future - B12 & FOLATE; Future - VITAMIN B6; Future - MILENA AND PE, SERUM; Future Hyperreflexia - MRI SPINE CERVICAL WITHOUT CONTRAST; Future - MRI SPINE THORACIC WITHOUT CONTRAST; Future Nikhil Mohr MD 08/14/2023 documented in this encounter [facility] 08-13-2023 Note Cardiovascular Medic [facility] SUBJECTIVE Chief Complaint Patient presents with [...] his right hip with Dr. Chappell in [place]. Had labs in December 2022. history of CAD s/p stenting of the LAD in 2004, echocardiogram in 2010 was within normal limits. He underwent cath at [facility] 01/12/2018 due to chest pain [...] , Rfl: cholecalciferol (Vitamin D-3) 50 MCG (2000 UT) tablet, Take 1 [...] Mood and Affect (more content not included)... [facility] 08-13-2023 Note Patient here for 1 y [...] his right hip with Dr. Chappell in [place]. Had labs in December 2022. Review of Systems Cardiovascular: Positive for chest pain, claudication and dyspnea on exertion. Musculoskeletal: Positive for arthritis, back pain, joint pain and myalgias. Neurological: Positive for numbness. All other systems reviewed and are negative. [facility] 07-16-2023 History of Present illness Narrative Associated [...] therapy, medications, SI belt, therapeutic injections. 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 100% relief while [...] therapy, medications, SI belt, therapeutic injections. 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 100% relief while [...] Additions if any: Jennie Hernandez MD, CAM [facility] Weatherization And Housing Inspector - [facility] documented in this encounter [facility] [employer] [facility] 07-16-2023 Instructions Eric Luu - 07/16/2023 [...] associated with corticosteroids. documented in this encounter [facility] 07-04-2023 History of Present illness Narrative Referred [...] Topical creams Physical therapy? Done recently at [facility] Xrays? Lumbar spine 12/2022 done at [place], bilateral hips and pelvis 01/08/23 MRI? 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 Done recently at [facility] Xrays? Lumbar spine 12/2022 done at [place], bilateral hips and pelvis 01/08/23 MRI? 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 Additions if any: Jennie Hernandez MD, [facility] Weatherization And Housing Inspector - [facility] documented in this encounter [facility] 06-10-2023 History of Present illness Narrative Associated [...] findings. Additions if any: Jennie Hernandez MD, [facility] Weatherization And Housing Inspector - [facility] History of Present illness Narrative [...] Topical creams Physical therapy? Done recently at [facility] Xrays? Lumbar spine 12/2022 done at [place], bilateral hips and pelvis 01/08/23 MRI? 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 Done recently at [facility] Xrays? Lumbar spine 12/2022 done at [place], bilateral hips and pelvis 01/08/23 MRI? 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 Additions if any: Jennie Hernandez MD, [facility] Weatherization And Housing Inspector - [facility] 04-18-2023 History of Present illness Narrative [...] findings. Additions if any: Jennie Hernandez MD, [facility] Medicine Weatherization And Housing Inspector - [facility] documented in this encounter [facility] 04-18-2023 Instructions Eric Luu - 04/18/2023 12:40 [...] associated with corticosteroids. 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 Noel may call the office with any questions or concerns. 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 Noel may call the office with any questions or concerns. Referrals:None Medications prescribed today: None Follow up plan: Sports US guided left sacroiliac joint injection with CRIME SCENE EXAMINER Complexity of problem(s): Mild Risk of morbidity [...] findings. Additions if any: Jennie Hernandez MD, [facility] Weatherization And Housing Inspector - [facility] documented in this encounter [facility] 12-31-2022 History of Present illness Narrative Packaging Technician reviewed discharge instructions with patient. No new [...] home following this hospitalization. Patient resides in [place] alone. He uses no DME and has no outside resources or services currently in place. 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 He is independent with all activities of [...] Priscilla, as his decision maker if needed. DIRECTOR [employer] to monitor and assist with any further [...] Well developed, well nourished with no malnutrition Hotel Baggage Handler consult initiated Hospital Prophylaxis: DVT: Lovenox Stress Ulcer: H2 Sarah Disposition: Shared decision making: All test results, treatment options and disposition options were discussed with the patient today Social determinants of health that may impact management: none Code status: Full Code Disposition: Discharge plan is home [facility] Advanced Care Planning documentation: [x] [...] SATISFY MIPS PERFORMANCE] Cece Villalobos APRN - FISH CUTTER , AUTUMN, GUEST SERVICE MANAGER-C Hospitalist Medicine 12/31/2022, 9:21 AM Associated attestation - Kendell Alvarado MD - 12/31/2022 5:52 PM EDT Images from the original note were not included. [address], [address] Attestation Patient: Noel Alva Date of Admission: 12/30/2022 6:09 AM Hospital Day # 1 Date of Evaluation: 12/31/2022 I personally evaluated and examined the patient [id number] in conjunction with the PA/GUEST SERVICE MANAGER and agree with the management and dispostition of the patient. Please see the PA/GUEST SERVICE MANAGER's note for full details. My argueta findings [...] with the plan as outlined in the GUEST SERVICE MANAGER/PA's note Disposition: Discharge plan is pending Please note that this chart was generated using voice recognition [employer] dictation software. Although every effort was made to ensure the accuracy of this automated molded candles wicker, some errors in molded candles wicker may have occurred. Kendell Alvarado MD 12/31/2022 5:52 PM Packaging Technician to bedside to complete morning assessment. Upon entry to room, pt sitting up in bed, respirations even and unlabored while on room air. Vitals obtained and assessment completed, see flow sheet for details. Dr Alvarado at bedside, reviewed pts blood pressure medications with him, okay to hold Norvasc and Metoprolol this morning. Pt denies needs from leader writer at this time. Call light in reach. Care ongoing. Noted leader writer had not urinated yet this shift. When [...] bedside table are within reach, will monitor. Packaging Technician offered meds to bed but patient declined. Echocardiogram/Doppler done at bedside. Instructed on policies and procedure. Spoke to cristian Zhao CNP for leader writer to correct home medications. Okay to add: protonix, iron, Mobic, Lisinopril, and Amlodipine. Cardiology consult called to office. When reviewing home medications it was noted that there were some differences in doses of medications. Called [facility] and clarified medications. Will update list [...] Care ongoing. documented in this encounter [facility] Phone: 12-31-2022 Hospital Discharge instructions Ana Gutierres [...] cholesterol, low fat documented in this encounter [facility] [employer] Work Phone: 12-31-2022 Hospital course Narrative Discharge Summary Noel Alva : 1960 Admit date: 12/30/2022 Discharge date: 12/31/2022 Admitting Physician: Kendell Alvarado MD Discharge Diagnoses: Principal Problem: Atypical chest [...] sharp in the left chest. No radiation. [place] burning sensation when the chest pain subsided. [...] discharge home he will follow-up with his imaging clerk in [place]. Consultants: Dr. Mohr, cardiology Procedures: Stress Test [...] (Neck pain) Vitamin D3 50 MCG (1999 [place]) Tabs STOP taking these medications dicyclomine 10 MG capsule Commonly known as: Bentyl Where to Get Your Medications These medications were sent to [id number] [place] - [address] [facility] [address] - P [phone] - F [phone] [address], [place] [address] atorvastatin 20 MG tablet Patient Instructions: Activity: activity as tolerated Diet: cardiac diet Wound Care: none needed Other: None Disposition: Discharge to Home Follow up: Patient will be followed by Romario Man MD in 1-2 weeks CORE MEASURES on Discharge (if applicable) BRITTNY/ARB in CHF: NA Statin in VT: NA ASA in VT: NA Statin in CVA: NA Antiplatelet in CVA: NA Total time spent on discharge services: 40 minutes Including the following activities: Evaluation and Management of patient Discussion with patient and/or surrogate about current care plan Coordination with Case Management and/or Saddle Cutter Coordination of care with Consultants (if applicable) Coordination of care with Receiving Facility Physician (if applicable) Completion of DME forms (if applicable) Preparation of Discharge Summary Preparation of Medication Reconciliation Preparation of Discharge Prescriptions Signed: Cece Villalobos APRN - SREEDHAR, CATERPILLAR DRIVER, GUEST SERVICE MANAGER-C 12/31/2022, 5:06 PM Associated attestation - Kendell Alvarado MD - 12/31/2022 5:53 PM EDT Images from the original note were not included. [address] , [place], [place], [address] Attestation Patient: Noel Alva Date of Admission: 12/30/2022 6:09 AM Hospital Day # 1 Date of Evaluation: 12/31/2022 I personally evaluated and examined the patient [id number] in conjunction with the PA/GUEST SERVICE MANAGER and agree with the management and dispostition of the patient. Please see the PA/GUEST SERVICE MANAGER's note for full details. My argueta findings [...] care plan Coordination with Case Management and/or Saddle Cutter Coordination of care with Consultants (if applicable) [...] this chart was generated using voice recognition [employer] dictation software. Although every effort was made to ensure the accuracy of this automated molded candles wicker, some errors in molded candles wicker may have occurred. Kendell Alvarado MD 12/31/2022 5:53 PM documented in this encounter [facility] Work Phone: 11-14-2022 Note CONSULTATION CONSULTATION DATE: [...] falls or foot drop. 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 He did have to take two days off of work last week, which his very unlike him. He had trouble getting out of bed due to increased pain. He is prescribed Trout 5/325 t.i.d., but due to pain, patient [...] radiculopathy, lumbar spondylosis. PLAN: Patient brought his Trout in today for a pill count. We will change his medication to Percocet 5/325 t.i.d. and increase his Lyrica to 100 mg b.i.d. I did recommend a Neurosurgery referral, which the patient does agree to. We will send a referral to Dr. Shaheen Chappell at [facility] in [place]. We will continue to manage his medications at this time, and we will see him in the clinic in three months. Patient agrees with this plan. [facility] 10-16-2022 Note CONSULTATION CONSULTATION DATE: 10/16/2022 HISTORY [...] use a cane. His current medications include Trout 5/325 b.i.d. and Aleve p.r.n. He has [...] next three days, we will increase his Trout 5/325 to t.i.d. We will start also [...] Patient does agree with this plan. [facility] 08-22-2022 Note CONSULTATION CONSULTATION DATE: 08/22/2022 HISTORY [...] weakness. Medications include Mobic 15 mg daily, Trout 5/325 b.i.d. and tizanidine 4 mg q.h.s. [...] a menthol rub. We will maintain his Trout 5/325 b.i.d. and he was instructed to use Voltaren to hi right CMC joint. Patient agrees with the plan of care and will be followed up in the office thereafter. [facility] 06-26-2022 Note OPERATIVE NOTE OPERATION DATE: 06/26/2022 [...] in good condition. CC: Romario Man M.D. [facility] 06-01-2022 Note Chief Complaint consultation for [...] BID, # 90 tab(s), Refills(s) 3, Pharmacy: [id number], 167.6, cm, 05/31/22 14:31:00 EDT, Height/Length Dosing, 72.8, kg, 05/31/22 14:31:00 EDT, Weight Dosing 3. Hematemesis (K92.0: Hematemesis) see # 1 Ordered: pantoprazole, 40 mg = 1 tab(s), Oral, BID, # 90 tab(s), Refills(s) 3, Pharmacy: [id number], 167.6, cm, 05/31/22 14:31:00 EDT, Height/Length Dosing, 72.8, kg, 05/31/22 14:31:00 EDT, Weight Dosing Follow-up No qualifying data available Problem List/Past Medical History Ongoing Asthma BMI 25.0-25.9,adult CAD in [place] artery DDD (degenerative disc disease), lumbar Depression [...] 325 mg or (more content not included)... [facility] Comment on above: Result Comment: [...] procedure well with no overt complications. [facility] 05-30-2022 Note CONSULTATION CONSULTATION DATE: 05/30/2022 HISTORY [...] Medications include Mobic 15 mg daily and Trout 5/325 b.i.d. He does take tizanidine 4 [...] indicated. Patient agrees with this plan. [facility] 04-03-2022 Note CONSULTATION CONSULTATION DATE: 04/03/2022 HISTORY [...] and his workup at the ER in [place] warranted no findings. Today, he reports consistent [...] mg q.h.s., Mobic 15 mg daily and Trout 5/325 b.i.d. p.r.n. Activities such as standing, [...] clinic and heading straight to the lab. [facility] Signed and Approved by: JULIANE MASSEY . 04/04/2022 13:38:00 [facility] 02-21-2022 Note CONSULTATION CONSULTATION DATE: [...] Medications include Mobic 15 mg q. day, Trout 5/325 b.i.d. and tizanidine 4 mg q.h.s., [...] cervical neuritis. PLAN: We will refill his Trout today 5/325 b.i.d., p.r.n. We will move [...] followed up in the office post procedure. [facility] Signed and Approved by: JULIANE MASSEY . 02/25/2022 15:08:00 [facility] Evaluation + Plan note No data available for this section General Surgery [place] [facility] Evaluation note Diagnosis Acute gout of right wrist, unspecified cause- Primary documented in this encounter [employer] Phone: evaluation note* Diagnosis Chronic fatigue Other malaise and fatigue documented in this encounter [employer] Phone: evaluation note* Diagnosis Atypical chest pain- Primary Other chest pain Chest pain, unspecified type Viral syndrome Unspecified viral infection, in conditions classified elsewhere and of unspecified site documented in this encounter [employer] Phone: evaluation note* Diagnosis Osteoarthritis of left sacroiliac joint- Primary Lumbar spondylosis Lumbosacral spondylosis without myelopathy Lower extremity numbness Disturbance of skin sensation [facility] Diagnosis Osteoarthritis of left sacroiliac joint documented in this encounter [facility]* Diagnosis Osteoarthritis of left sacroiliac joint- Primary Osteoarthritis of left sacroiliac joint documented in this encounter [facility]* Diagnosis Osteoarthritis of left sacroiliac joint- Primary Pain of left sacroiliac joint Disorders of sacrum Lumbar spondylosis Lumbosacral spondylosis without myelopathy documented in this encounter [facility]* Diagnosis Osteoarthritis of right sacroiliac joint- Primary Pain of right sacroiliac joint Disorders of sacrum Polyneuropathy Unspecified hereditary and idiopathic peripheral neuropathy Lower extremity numbness Disturbance of skin sensation Osteoarthritis of left sacroiliac joint Pain of left sacroiliac joint Disorders of sacrum Lumbar spondylosis Lumbosacral spondylosis without myelopathy documented in this encounter [facility]* Diagnosis Osteoarthritis of both sacroiliac joints- Primary Pain of both sacroiliac joints Disorders of sacrum Polyneuropathy Unspecified hereditary and idiopathic peripheral neuropathy documented in this encounter [facility]* Diagnosis Osteoarthritis of both sacroiliac joints Pain of both sacroiliac joints Disorders of sacrum documented in this encounter [facility]* Diagnosis Osteoarthritis of both sacroiliac joints- Primary Pain of both sacroiliac joints Disorders of sacrum Osteoarthritis of both sacroiliac joints Pain of both sacroiliac joints Disorders of sacrum documented in this encounter [facility]* Diagnosis Hereditary and idiopathic peripheral neuropathy- Primary Unspecified hereditary and idiopathic peripheral neuropathy Hyperreflexia Abnormal reflex documented in this encounter [facility]* Diagnosis Sacroiliitis- Primary Sacroiliitis, not elsewhere classified documented in this encounter [facility]* Diagnosis Viral illness- Primary Unspecified viral infection, in conditions classified elsewhere and of unspecified site documented in this encounter [facility] Dis[facility]* Attachments The following attachments cannot be sent through Care Everywhere. * Gout (Botswanan) [facility] Hospital Discharge instructions No data available for this section General Surgery [place] Progress note No data available for this section General Surgery [place] Reason for referral (narrative)* Consultation (Routine) - Auth Not Needed Specialty Diagnoses / Procedures Referred By Contac t Referred To Contact Neurology Diagnoses Polyneuropathy Jennie Hernandez MD [address] [place] [id number] Nikhil Mohr MD [address] [place] [address], [place] [address] Referral ID Status Reason Start Date Expiration Date V isits Requested Visits Authorized [id number] Auth Not Needed 06/10/2023 07/04/2024 1 1 * Radiology (Routine) - New Request Specialty Diagnoses / Procedures Referred By Contac t Referred To Contact Diagnoses Osteoarthritis of left sacroiliac joint Pain of left sacroiliac joint Procedures US IMAGING FOR ORTHO Jennie Hernandez MD [address] [place] [address] Referral ID Status Reason Start Date Expiration Date V isits Requested Visits Authorized [id number] New Request 06/10/2023 07/04/2024 1 1 [facility] for referral (narrative)* Consultation (Routine) - Schedule Outgoing - Transfer of Care Specialty Diagnoses / Procedures Referred By Contac t Referred To Contact Neurologic Surgery Diagnoses Osteoarthritis of both sacroiliac joints Pain of both sacroiliac joints Jennie Hernandez MD [address] [place] [address] Referral ID Status Reason Start Date Expiration Date V isits Requested Visits Authorized [id number] Schedule Outgoing - Transfer of Care 07/16/2023 08/09/2024 1 1 * Radiology (Routine) - New Request Specialty Diagnoses / Procedures Referred By Anni antonio Referred To Contact Diagnoses Osteoarthritis of both sacroiliac joints Pain of both sacroiliac joints Procedures US IMAGING FOR ORTHO Jennie Hernandez MD [address] [facility] [place] [address] [place] [address] Referral ID Status Reason Start Date Expiration Date V isits Requested Visits Authorized [id number] New Request 07/16/2023 08/09/2024 1 1 [facility] ([facility]) Specialty Diagnoses / Procedures Referred By Anni antonio Referred To Contact [facility] [place] [facility] [address] [place] [address] Referral ID Status Reason Start Date Expiration Date Visits Re quested Visits Authorized [facility] Summary Purpose Family History No Family History Records FoundNo Family History Records FoundNo Family History Records FoundNo Family History Records FoundNo Family History Records FoundNo Family History Records FoundNo Family History Records FoundNo Family History Records FoundNo Family History Records FoundNo Family History Records Found Advance Directives No Advanced Directives Records FoundDocuments on File Type Date Recorded Patient Receiving Teller Expl anation Advance Directives and Living Will Power of Pot Press Operator Latest Code Status on File Code Status Date Activated Date Inactivated Comments Full Code 01/12/2018 8:34 PM 01/13/2018 3:53 PM Full Code 01/10/2018 3:36 PM 01/12/2018 8:34 PM Documents on File Type Date Recorded Patient Receiving Teller Expl anation ACP-Advance Directive ACP-Power of Pot Press Operator Documents on File Type Date Recorded Patient Receiving Teller Expl anation ACP-Advance Directive ACP-Power of Pot Press Operator Latest Code Status on File Code Status [...] sent through Care Everywhere. * Chest Pain (Botswanan) * Back Pain (Botswanan) * Shoulder Pain (Botswanan) documented in this encounter* Instructions* Justice Shaver [...] sent through Care Everywhere. * Neck Spasm (Botswanan) documented in this encounter* Attachments The following attachments cannot be sent through Care Everywhere. * Abdominal Pain (Botswanan) * Acid-Reducing Medicines: General Info (Botswanan) documented in this encounter Assessments Diagnosis Chronic [...] Procedures VL DUP CAROTID BILATERAL Lisa Wyatt, CATERPILLAR DRIVER - FISH CUTTER [address] [place] [address] Specialty Diagnoses / Procedures Referred By Contac t Referred To Contact Diagnoses Lower extremity numbness Procedures EMG & NERVE CONDUCTION Jennie Hernandez MD [address] [place] [address] Jw Cee MD [address] [place] [address] Referral ID Status Reason Start Date Expiration Date V isits Requested Visits Authorized [id number] Pending Review 02/25/2023 03/21/2024 1 1 Specialty Diagnoses / Procedures Referred By Contac t Referred To Contact Diagnoses Osteoarthritis of left sacroiliac joint Procedures US IMAGING FOR ORTHO Jennie Hernandez MD [address] [place] [address] Referral ID Status Reason Start Date Expiration Date V isits Requested Visits Authorized [id number] New Request 04/18/2023 05/12/2024 1 1 Specialty Diagnoses / Procedures Referred By Contac t Referred To Contact Diagnoses Osteoarthritis of both sacroiliac joints Pain of both sacroiliac joints Procedures US IMAGING FOR ORTHO Jennie Hernandez MD [address] [place] [address] Referral ID Status Reason Start Date Expiration Date V isits Requested Visits Authorized [id number] New Request 07/16/2023 08/09/2024 1 1 Specialty Diagnoses / Procedures Referred By Contac t Referred To Contact Diagnoses Hyperreflexia Procedures MRI SPINE THORACIC WITHOUT CONTRAST HI MRI, DORSAL SPINE Nikhil Mohr MD [address] [place] [address] Referral ID Status Reason Start Date Expiration Date V isits Requested Visits Authorized [id number] New Request 08/14/2023 09/07/2024 1 1 Specialty Diagnoses / Procedures Referred By Contac t Referred To Contact Diagnoses Hyperreflexia Procedures MRI SPINE CERVICAL WITHOUT CONTRAST HI MRI, CERV SPINE Nikhil Mohr MD [address] [place] [address] Referral ID Status Reason Start Date Expiration Date V isits Requested Visits Authorized [id number] New Request 08/14/2023 09/07/2024 1 1 Additional Source Comments (unrecognized sect ion and content) No Status Records FoundNo Status Records FoundNo Status Records FoundNo Status Records FoundNo Status Records FoundNo Status Records FoundNo Status Records FoundNo Status Records FoundNo Status Records FoundNo Status Records Found INFORMATION SOURCE (unrecogn ized section and content) DATE CREATED AUTHOR 03/26/2018 [facility] DATE CREATED AUTHOR AUTHOR'S ORGANIZ ATION 03/26/2018 [facility] DATE CREATED AUTHOR AUTHOR'S ORGANIZ ATION 07/11/2022 [facility] DATE CREATED AUTHOR AUTHOR'S ORGANIZ ATION 01/18/2023 [facility] [place] [facility] DATE CREATED AUTHOR AUTHOR'S ORGANIZ ATION 04/15/2023 [facility] DATE CREATED AUTHOR AUTHOR'S ORGANIZ ATION 07/18/2023 [facility] DATE CREATED AUTHOR AUTHOR'S ORGANIZ ATION 09/22/2023 [facility] DATE CREATED AUTHOR AUTHOR'S ORGANIZ ATION 10/11/2023 [facility] DATE CREATED AUTHOR AUTHOR'S ORGANIZ ATION 11/25/2023 [facility] EPIC DATE CREATED AUTHOR AUTHOR'S ORGANIZ ATION 02/13/2024 [facility] Reason for Visit (unrecogniz ed section and content) Reason Comments Shoulder Pain ongoing for past wee k worse today Neck Pain worse today Chest Pain ongoing for one week worse today Reason Comments Neck Pain burning/shooting kalen n, BL posterior neck. REcent nerve procedure with pain management. Out of Trout for 2 days. Reason Comments Flank Pain pt staes bilateral f alnk pain, onset Friday Status Reason Specialty Diagnoses / Procedures Referred By Contact Referred To Contact Authorized Stress Lab Diagnoses Atherosclerotic heart disease of [place] coronary artery without angina pectoris Procedures HC NM LEXISCAN STRESS W NUC HC NM SEST. REST STRESS MULT 05278 NM STRESS Lisa Wyatt, CATERPILLAR DRIVER - FISH CUTTER [address] [place] [address] [facility] [address] [place] [address] Status Reason Specialty Diagnoses / Procedures Referre d By Contact Referred To Contact Closed Vascular Lab Diagnoses Other specified peripheral vascular diseases Procedures HC EXTRACRANIAL BILAT STUDY 04169 US CAROTIDS Yoselin Lisa M, CATERPILLAR DRIVER - FISH CUTTER [address] [place] [address] [facility] [address] [place] [address] Status Reason Specialty Diagnoses / Procedures Referred By Contact Referred To Contact Closed Stress Lab Diagnoses Atherosclerotic heart disease of [place] coronary artery without angina pectoris Procedures HC NM LEXISCAN STRESS W NUC HC NM SEST. 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 No known injury. Pt reports he has had bilateral wrist pain for some time, but this is worse. History of Arthritis Reason Comments Chest Pain Left sided, intermit tent since yesterday, improved after SL nitro, worse with cough, deep breathing and exertion Specialty Diagnoses / Procedures Referred By Anni antonio Referred To Contact Diagnoses Atypical chest pain Chest pain, unspecified type Kendell Alvarado MD [address] [facility] [address] [place] [address] [facility] [address] [place] [address] Referral ID Status Reason Start Date Expiration Date Visits Re quested Visits Authorized [id number] 1 1 Reason Comments Pain New Patient Specialty Diagnoses / Procedures Referred By Anni antonio Referred To Contact Diagnoses Osteoarthritis of left sacroiliac joint Procedures US IMAGING FOR ORTHO Jennie Hernandez MD [address] [facility] [address] Referral ID Status Reason Start Date Expiration Date V isits Requested Visits Authorized [id number] New Request 04/18/2023 05/12/2024 1 1 Reason Comments Pain Joint Injection Reason Comments Pain Follow-up Reason Comments Pain Specialty Diagnoses / Procedures Referred By Contac t Referred To Contact Diagnoses Osteoarthritis of both sacroiliac joints Pain of both sacroiliac joints Procedures US IMAGING FOR ORTHO Jennie Hernandez MD [address] [place] [address] Referral ID Status Reason Start Date Expiration Date V isits Requested Visits Authorized [id number] New Request 07/16/2023 08/09/2024 1 1 Reason Comments Pain Right Sacroiliac laurent nt Follow-up Right Sacroiliac laurent nt Joint Injection Right Sacroiliac laurent nt Reason Comments New Patient bilateral lower limb polyneuropathy Specialty Diagnoses / Procedures Referred By Contac t Referred To Contact Neurology Diagnoses Polyneuropathy Jennie Hernandez MD [address] [place] [phone] Nikhil Mohr MD [address] [place] [address] Referral ID Status Reason Start Date Expiration Date Visits Re quested Visits Authorized [id number] Closed 06/10/2023 07/04/2024 1 1 Specialty Diagnoses / Procedures Referred By Contac t Referred To Contact Diagnoses Sacroiliitis Sacroiliitis [M46.1] Procedures HI ARTHRODESIS SACROILIAC JOINT PERCUTANEOUS CHG FLUOROSCOPY UP TO 1 HOUR PHYSICIAN/QHP TIME HI IMPLANT/INSERT DEVICE, NOC PROSTHETIC IMPLANT NOS ARTHRODESIS SACROILIAC JOINT MINIMALLY INVASIVE W/ TRANSFIXING DEVICE FLUOROSCOPY IN OR Shaheen Chappell MD [address] [facility] [address] Referral ID Status Reason Start Date Expiration Date Visits Re quested Visits Authorized [id number] 09/11/2023 1 1 Reason Comments Influenza Symptoms [...] - Reason: Contraindicated - Comment: per Dr Alvarado) aspirin chewable tablet 324 mg (COMPLETED) 324 [...] - Reason: Contraindicated - Comment: Per Dr Alvarado) pantoprazole (PROTONIX) tablet 40 mg 40 mg, [...] Discontinued 1447 (Given - Provider: Corrie Ibarra RN)2101 [...] mg from all sources in 24 hours. 9284 (Given - Provider: Monalisa Hudson RN) 0858 (Given - Provider: Corrie Ibarra RN - [...] Intravenous, at 125 mL/hr, CONTINUOUS, Starting on Debibe 09/18/23 at 0830, Until Debbie 09/18/23 at 1640 0920 ($$New Bag$$ - Provider: Johanna Urena LPN)1204 (Paused - Provider: Amanda Murphy - Comment: Switch to gravity)1205 ($$New Bag$$ - Provider: Amanda Murphy)1420 (Stopped - Provider: Griselda Craig RN) PRN Medication Order 09/16/2023 09/17/2023 09/18/2023 BUPivacaine-EPINEPHrine (MARCAINE;SENSORCAINE-MPF) 0.5% -[id number] injection (CANCELED) NEEDED, Starting on Debbie 09/18/23 at 1144, Until Debbie 09/18/23 at 1228, Intra-op/Intra-Proc 1144 (Given - Provid er: Shaheen Chappell MD) ceFAZolin (ANCEF) 2 g in dextrose 100 mL premix IVPB (COMPLETED) 2 g, Intravenous, Administer over 30 Minutes, IT BUSINESS ANALYST TO PROCEDURE, 1 dose, Starting on Debbie [...] RT Bronchodilator Protocol: Yes - ED protocol 06 (See Alternativ e - Provider: Giulia Stein RCP)06 (See Alternative - Provider: Giulia Stein RCP) [...] RT Bronchodilator Protocol: Yes - ED protocol 607 (Given - Provid er: Giulia Stein RCP)616 (Given - Provider: Giulia Stein RCP) Linked [...] Care Teams (unrecognized sec tion and content) 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 Relationship Specialty Start Date End Date Romario Man MD [address] [place] [address] PCP - General Family Medicine 06/14/19 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 Relationship Specialty Start Date End Date Romario Man MD [address] [place] [address] PCP - General Family Medicine 06/14/19 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 Relationship Specialty Start Date End Date Romario Man MD [address] [place] [address] PCP - General Family Medicine 04/18/23 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 Relationship Specialty Start Date End Date Romario Man MD [address] [place] [phone] PCP - General Family Medicine 04/18/23 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 Relationship Specialty Start Date End Date Romario Man MD [address] [place] [phone] PCP - General Family Medicine 04/18/23 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 Relationship Specialty Start Date End Date Romario Man MD [address] [place] [address] PCP - General Family Medicine 04/18/23 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 Relationship Specialty Start Date End Date Romario Man MD [address] [place] [phone] PCP - General Family Medicine 04/18/23 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 Relationship Specialty Start Date End Date Romario Man MD [address] [place] [phone] PCP - [facility] Family Medicine 04/18/23 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 [employer] provides no warranty or guarantee of the accuracy or completeness of information in this document.
[2024-03-15 07:03] VITALS: BP 121/69; PULSE 76; TEMP 36.7; O2SAT 96
[2024-03-15 07:44] VITALS: BP 98/67; PULSE 58; O2SAT 94
[2024-03-15] MEDS: TRIAMCINOLONE ACETONIDE 40 MG/ML VIAL INJ (07:45)
[2024-03-15] MEDS: BUPIVACAINE HCL 0.25% PF 25 MG/10 ML VIAL INJ (07:46)
[2024-03-15] MEDS: LIDOCAINE HCL 2% PF 100 MG/5 ML VIAL INJ (07:46)
[2024-03-15 07:48] VITALS: BP 106/72; PULSE 54; O2SAT 93
--- NOTE | 2024-03-15 07:49 | W.PM.PROCNOT ---
Date of procedure: 03/15/24 Pre-op diagnosis: Bilateral shoulder osteoarthritis Post-op diagnosis: same as pre-op Procedure: Procedure: Bilateral suprascapular and axillary nerve block Medications: Bupivacaine 0.25% 1cc, kenalog 40mg x2 The patient was seen and examined in the preoperative holding area. Informed consent was obtained and placed on the chart.? The patient was brought to the medical procedure unit and placed in the prone position. A timeout was completed verifying correct patient, procedure site, positioning, plan, and special equipment.? Using aseptic technique, under direct fluoroscopic visualization, a 25-gauge 3-1/2 inch spinal needle was advanced to the superior portion of the left posterior osseous rim of the glenoid fossa, lateral and superior to the spinal glenoid notch.? 0.5 cc of the above solution was injected.? The needle was then redirected 3 mm inferiorly and another 0.5 cc of the above medication was injected.? This needle was then removed.? Using aseptic technique, under direct fluoroscopic visualization, another 25-gauge 3-1/2 inch spinal needle was advanced toward the most inferior and lateral border of the greater tubercle.? 0.5 cc of the above medication was administered.? The needle was then redirected 3 mm inferiorly.? 0.5 cc was administered in this region.? This needle was removed.? The same procedure, with the same steps, was then repeated on the opposite side.? ? The patient was taken to the postprocedural recovery area and monitored for an appropriate length of time before being found suitable for discharge in the accompaniment of a responsible adult.
== END 2024-03-15 07:52 | disposition home or self-care (01) ==
LOC: SURGOUT 06:52
PROVIDERS: PCP Family Medicine; Visit Provider Anesthesiology
DX: M19.012 Primary osteoarthritis, left shoulder (principal); M19.011 Primary osteoarthritis, right shoulder
CPT/HCPCS: 64417; 64418

== ENCOUNTER 2024-03-25 13:34 | Outpatient (OUT) | payer OTHER, SELFPAY ==
--- NOTE | 2024-03-25 13:46 | P.CN_ITS ---
Consult Note: HPI Data of Consult Patient: known to practice within the last 3 years Requesting Physician: Isabelle Maria NP Primary Care Provider: Romario Bronson MD Consult Narrative Reason for consult: f/u Narrative: Noel Alva a pleasant 63 year old male presents for evaluation of chronic bilateral shoulders, hand, knee, and low back pain. Today patient rating pain 3/10, increasing to 8/10 with activity and depending on the weather due to OA, generalized and in bilateral shoulders and low back hip buttock pain. JOSE EDUARDO 42% today. Patient has returned to work and has noticed increase in pain and decline in functional ability. Patient would like to discuss additional treatment options for his chronic bilateral shoulder pain. Reports he previously saw [facility] and failed injections, was not offered surgical intervention. patient engaged in HEP greater than 6 weeks without benefit. Recently underwent bilateral suprascapular and axillary nerve block with >90% improvement in pain and functional ability immediately following and 10 hours after the procedure. cc:: CC: Isabelle Maria NP Review of Systems ROS Status of ROS 10 or more systems reviewed and unremark able except as noted in history and below Musculoskeletal Reports: back pain and joint pain PFSH PFS Medical History Bilateral shoulder pain ?M25.511 - Pain in right shoulder (ICD-10) ?M25.512 - Pain in left shoulder (ICD-10) Aortic atherosclerosis ?I70.0 - Atherosclerosis of aorta (ICD-10) Hypertension ?I10 - Essential (primary) hypertension (ICD-10) Numbness and tingling ?R20.0 - Anesthesia of skin (ICD-10) ?R20.2 - Paresthesia of skin (ICD-10) Back pain ?M54.9 - Dorsalgia, unspecified (ICD-10) Neck pain ?M54.2 - Cervicalgia (ICD-10) Anemia ?D64.9 - Anemia, unspecified (ICD-10) Asthma ?J45.909 - Unspecified asthma, uncomplicated (ICD-10) Surgical History H/O heart artery stent ?Z95.5 - Presence of coronary angioplasty implant and graft (ICD-10) H/O laminectomy ?Z98.890 - Other specified postprocedural states (ICD-10) Meds Home Medications and Allergies Home Medications ?Medication ?Instructions ?Recorded ?Confirmed ?Type albuterol sulfate 90 mcg/actuation 1 inh inhalation Q6H 03/14/23 03/15/24 History aerosol inhaler (ProAir HFA) aspirin 81 mg tablet,delayed 81 mg PO DAILY 03/14/23 03/15/24 History release atorvastatin 40 mg tablet 40 mg PO DAILY 03/14/23 03/15/24 History cholecalciferol (vitamin D3) 50 50 mcg PO DAILY 03/14/23 03/15/24 History mcg (2,000 unit) capsule ferrous sulfate 325 mg (65 mg 325 mg PO BID 03/14/23 03/15/24 History iron) tablet (Niels-Time) isosorbide mononitrate 30 mg 30 mg PO DAILY 03/14/23 03/15/24 History tablet,extended release 24 hr lisinopril 40 mg tablet 40 mg PO DAILY 03/14/23 03/15/24 History meloxicam 15 mg tablet 15 mg PO DAILY 03/14/23 03/15/24 History metoprolol tartrate 25 mg tablet 25 mg PO BID 03/14/23 03/15/24 History nitroglycerin 0.4 mg sublingual 0.4 mg sublingual Q5M PRN chest 03/14/23 03/15/24 History tablet (Nitrostat) pain pantoprazole 40 mg tablet,delayed 40 mg PO DAILY 03/14/23 03/15/24 History release (Protonix) pregabalin 100 mg capsule (Lyrica) 100 mg PO BID 03/14/23 03/15/24 History tizanidine 4 mg capsule 4 mg PO .HS PRN muscle spasticity 03/14/23 03/15/24 History oxycodone-acetaminophen 5 mg-325 1 tab PO TID PRN pain #90 tabs 11/10/23 03/15/24 Rx mg tablet (Percocet) oxycodone-acetaminophen 5 mg-325 1 tab PO TID PRN pain #90 tabs 03/17/24 Rx mg tablet (Percocet) Allergies Allergy/AdvReac Type Severity Reaction Status Date / Time No Known Drug Allergies Allergy Verified 03/15/24 07:07 Exam Constitutional Documenting provider has reviewed patient's vital signs: yes Common normals: no apparent distress, oriented x3, healthy appearing, alert and well nourished General appearance: cooperative HENMT Common normals: normocephalic, hearing grossly normal bilaterally and moist oral mucous membranes Head and scalp: normocephalic Eye Common normals: PERRL Pupil: PERRL Neck & C-Spine Common normals: full ROM General: normal visual inspection Chest Common normals: inspection of chest normal Respiratory Common normals: normal respiratory effort, no retractions and no use of accessory muscles Back & Pelvis Lumbar spine/lower back: ROM limited, pain with ROM and straight leg raise negative bilaterally Sacroiliac joints: SI joints normal Other: positive facet loading bilaterally Extremity Common normals: normal to inspection and full ROM Right upper extremity: shoulder joint Left upper extremity: shoulder joint Other: bilateral shoulder ROM limited, increased pain with ROM, positive empty can test, positive posterior-lift off, positive cross body adduction. increased pain with palpation of bilateral suprascapular/axillary nerves, reports sharp shooting pain with overhead motions. strength 5/5 in BUE, sensation intact Neuro Common normals: oriented x3, CN's II-XII intact bilaterally, moves all extremities, no focal motor deficits, no sensory deficits noted and deep tendon reflexes 2+ bilaterally Sensorium/orientation: alert Motor exam: strength 5/5 throughout and no movement abnormalities noted Psych Common normals: mental status grossly normal, thought process normal, cooperative, affect normal, speech normal and activity/motor behavior normal Speech: normal speech Thought process: normal thought process Results Additional Findings Additional findings: If on a controlled substance or opioids, I have checked an [place]AR[place] report on this patient and there are no aberrancies noted in the prescribing history.??If on a controlled substance or opioid a drug screen was completed and reviewed within the last year, and if there has not been a drug screen completed we ordered one today to monitor higher risk, state monitored pain medication use. As part of providing excellent, safe, comprehensive care, the following was completed at our patient's visit: 1. A medication reconciliation and review to ensure accurate knowledge of current/active medications, including asking our patients to inform us about any [id number] medications or herbal remedies/nutritional supplements/alternative remedies. 2. A review to specifically ensure our patients have had annual screening for screening for depression, screening for tobacco use, and screening for unhealthy alcohol use. For concerning screenings had a discussion with the patient, provided patient education, and recommended follow-up with primary care provider when appropriate. If patient noted with a risk of falling, they received education on strength, gait, and balance training to prevent future risk of falling. 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 finds moderate relief of pain with current pain medication regimen I have refilled the patient's opioid prescriptions at the above noted dose and schedule.? I feel these medications are improving the patient's quality of life and allow them to tolerate activities of daily living as well as participate in recreational activity.? The patient does not report intolerable side effects. The patient is NOT opioid naive and non-pharmacologic and non-opioid treatment has failed to significantly relieve the patient's pain and improve functionality. The patient has a diagnosis that is related to a somatic or v isceral pain etiology. ? ?? I reviewed with the patient the potential risks and side effects with the use of? opioid medications including but not limited to respiratory depression,? sedation, and even . I verified the patient has access to naloxone should? these effects occur. I advised the patient to avoid the use of any other? sedation substances including alcohol, THC, and benzodiazepines while? taking opioid medications due to the risk of compounding side effects and? detrimental outcomes. I reviewed the AIR DISPATCHER, pain treatment agreement, urine? drug screen, and opioid start talking forms. The patient was advised to let? their family know they had Naloxone in case they would need to administer? the medication.? ?? A drug screen was completed within the last year, and no aberrancies were noted regarding their use of controlled substances. The patient understands they are subject to the terms and conditions of the pain contract that they have signed. ? ?? I have checked an OARRS report on this patient today and there are no aberrancies noted in the prescribing history.? (7) Osteoarthritis: Assessment and Plan: OA numerous sites (8) Chronic pain syndrome: (9) Myofascial pain: Plan right then left suprascapular and axillary nerve thermal RFA continue mobic 15mg daily as needed mild to moderate pain continue oxycodone-acetaminophen 5-325mg TID PRN moderate to severe pain, tolerated well with functional improvement continue lyrica 100mg BID, continue tizanidine 4mg HS PRN f/u 1 month after RFAs complete
== END 2024-03-25 13:35 | disposition home or self-care (01) ==
LOC: PM 13:34
PROVIDERS: PCP Family Medicine; Visit Provider Nurse Practitioner
DX: M25.511 Pain in right shoulder (principal); M25.512 Pain in left shoulder; M19.012 Primary osteoarthritis, left shoulder; M19.011 Primary osteoarthritis, right shoulder; M47.816 Spondylosis without myelopathy or radiculopathy, lumbar region; M53.3 Sacrococcygeal disorders, not elsewhere classified; M48.062 Spinal stenosis, lumbar region with neurogenic claudication; Z79.891 Long term (current) use of opiate analgesic; G89.4 Chronic pain syndrome; M79.18 Myalgia, other site
CPT/HCPCS: G0463

== ENCOUNTER 2024-05-13 03:57 | Emergency (ER) | payer OTHER, SELFPAY ==
[2024-05-13] VITALS (20 sets, daily range): BP systolic 147–181; BP diastolic 82–113; PULSE 49–74; TEMP 36.8; O2SAT 98; BMI 28.2
--- NOTE | 2024-05-13 04:38 | CT_ITS ---
The [address] [address] Patient Name: AJ MORA MRN: [id number] date: 1960 Sex: M Assigned Patient Location: ER Current Patient Location: .[facility] Accession/Order Number: [id number] Exam Date: 05/13/2024 04:45 Report Date: 05/13/2024 05:23 At the request of: RANDALL ULLOA Procedure: CT head/brain wo con CT OF THE BRAIN WITHOUT CONTRAST: 05/13/2024 4:45 AM EDT HISTORY: 63-year-old male. Weakness. TECHNIQUE: Contiguous axially collimated images were obtained through the intracranial compartment, from the vertex through the foramen magnum. Coronal and Sagittal reformatted images were prepared on a separate workstation and reviewed on the PACS for anatomic correlation. No contrast was administered. This CT exam was performed using one or more of the following dose reduction techniques: Automated exposure control, adjustment of the mA and/or kV according to patient size, or use of iterative reconstruction technique. Thin section coronal and sagittal images were reconstructed from the axial data set. All images were reviewed and interpreted. COMPARISON: None. FINDINGS: There is no intracranial hemorrhage or abnormal extra-axial fluid collection. To the extent of evaluated with noncontrast technique, there is no mass lesion appreciated. There is no mass-effect or shift of midline structures. The ventricles and CSF spaces are age appropriate. There is no evidence of hydrocephalus. There is no effacement of the basal cisterns. Mild age-appropriate there is symmetric bilateral cerebral cortical atrophy, within normal limits for age. Calderón white matter differentiation is well preserved throughout, without evidence of acute ischemia. There is no significant leukomalacia. The basal ganglia and thalami are unremarkable. The posterior fossa, brain stem, and fourth ventricle are normal. There is no tonsillar ectopy. The calvarium is intact, without destructive lesion or depressed fracture. The mastoid air cells are well-aerated. The paranasal sinuses are normally aerated. CT/CT head/brain wo con IMPRESSION: No acute or significant intracranial pathology. Electronically authenticated by: LUIS ALFREDO FLORES Date: 05/13/2024 05:23
--- NOTE | 2024-05-13 04:38 | ECG_ITS ---
The [facility] Test Date: 2024-05-13 Pat Name: AJ MORA Department: Room: - Gender: Male Emergency Room Clinician: : 1960 Requested By: ALICIA MAN Order Number: [id number] Reading MD: COSMO DEJESUS Measurements Intervals [place] Rate: 55 P: 61 VA: 138 QRS: 77 QRSD: 80 T: 98 QT: 420 QTc: 409 Interpretive Statements 1100 Sinus rhythm 4068 Nonspecific [place] abnormality 9130 borderline ECG Compared to ECG 08/14/2021 11:14:28 No significant changes Electronically Signed On 05-13-2024 21:14:39 EDT by COSMO DEJESUS
--- NOTE | 2024-05-13 04:40 | ED.NEUROSD1 ---
HPI - Neuro Symptoms/Deficit General Chief Complaint: Neuro Symptoms/Deficit Stated Complaint: arm and leg tingling Time Seen by Provider: 05/13/24 04:15 Source: patient Mode of arrival: walk-in Limitations: no limitations History of Present Illness HPI Narrative: This 63-year-old male with a history of cardiac disease with 2 coronary stents, chronic pain syndrome, lumbar stenosis, lumbar radiculopathy and polyneuropathy presents for evaluation of numbness and tingling in both feet and a sensation that his feet are cold as well as discomfort in his hands. The patient states he has been seen by neurology and is supposed to have an MRI but was waiting for his hip to recover after having hip surgery. He states that this morning he woke up and felt nauseated and felt like he was going to vomit but did not vomit and then felt funny so he came to the emergency department. He has no headache, slurred speech, blurred vision or confusion. He takes lisinopril for his blood pressure. He denies any chest pain or abdominal pain. He has no back pain at this time. He is ambulatory with a steady gait. He states his neuropathic syndrome has been going on for quite some time and he has also been having nausea after eating for a while by this he means several months. He states his appetite has been decreased because of his nausea with p.o. intake. Related Data Home Medications ?Medication ?Instructions ?Recorded ?Confirmed albuterol sulfate 90 mcg/actuation 1 inh inhalation Q6H 03/14/23 03/15/24 aerosol inhaler (ProAir HFA) aspirin 81 mg tablet,delayed 81 mg PO DAILY 03/14/23 03/15/24 release atorvastatin 40 mg tablet 40 mg PO DAILY 03/14/23 03/15/24 cholecalciferol (vitamin D3) 50 50 mcg PO DAILY 03/14/23 03/15/24 mcg (2,000 unit) capsule ferrous sulfate 325 mg (65 mg 325 mg PO BID 03/14/23 03/15/24 iron) tablet (Niels-Time) isosorbide mononitrate 30 mg 30 mg PO DAILY 03/14/23 03/15/24 tablet,extended release 24 hr lisinopril 40 mg tablet 40 mg PO DAILY 03/14/23 03/15/24 meloxicam 15 mg tablet 15 mg PO DAILY 03/14/23 03/15/24 metoprolol tartrate 25 mg tablet 25 mg PO BID 03/14/23 03/15/24 nitroglycerin 0.4 mg sublingual 0.4 mg sublingual Q5M PRN chest 03/14/23 03/15/24 tablet (Nitrostat) pain pantoprazole 40 mg tablet,delayed 40 mg PO DAILY 03/14/23 03/15/24 release (Protonix) pregabalin 100 mg capsule (Lyrica) 100 mg PO BID 03/14/23 03/15/24 tizanidine 4 mg capsule 4 mg PO .HS PRN muscle spasticity 03/14/23 03/15/24 Previous Rx's ?Medication ?Instructions ?Recorded oxycodone-acetaminophen 5 mg-325 1 tab PO TID PRN pain #90 tabs 11/10/23 mg tablet (Percocet) oxycodone-acetaminophen 5 mg-325 1 tab PO TID PRN pain #90 tabs 03/17/24 mg tablet (Percocet) oxycodone-acetaminophen 5 mg-325 1 tab PO TID PRN pain #90 tabs 04/16/24 mg tablet (Percocet) Allergies Allergy/AdvReac Type Severity Reaction Status Date / Time No Known Drug Allergies Allergy Verified 05/13/24 04:04 Review of Systems ROS Status of ROS 10 or more systems reviewed and unremarkable except as noted in history and below [facility] Medical History Bilateral shoulder pain ?M25.511 - Pain in right shoulder (ICD-10) ?M25.512 - Pain in left shoulder (ICD-10) Aortic atherosclerosis ?I70.0 - Atherosclerosis of aorta (ICD-10) Hypertension ?I10 - Essential (primary) hypertension (ICD-10) Numbness and tingling ?R20.0 - Anesthesia of skin (ICD-10) ?R20.2 - Paresthesia of skin (ICD-10) Back pain ?M54.9 - Dorsalgia, unspecified (ICD-10) Neck pain ?M54.2 - Cervicalgia (ICD-10) Anemia ?D64.9 - Anemia, unspecified (ICD-10) Asthma ?J45.909 - Unspecified asthma, uncomplicated (ICD-10) Surgical History H/O heart artery stent ?Z95.5 - Presence of coronary angioplasty implant and graft (ICD-10) H/O laminectomy ?Z98.890 - Other specified postprocedural states (ICD-10) Exam Narrative Exam Narrative: Vital signs and Nursing Notes reviewed: Patient is afebrile, he is bradycardic with a pulse of 56, blood pressure is elevated at 169/104, he is not hypoxic with pulse ox of 98% on room air General: Awake, alert, oriented, no acute distress, lying comfortably on the stretcher, easily moves about the stretcher to take off his pants and shoes and socks HEENT: Normocephalic atraumatic, mucous membranes are moist and pink, eyes are clear, normal conjunctiva, vision is grossly intact, posterior pharynx is normal in appearance. Is partially edentulous Neck: Supple, no JVD Chest: Lungs are clear to auscultation with good air entry, there is no wheezing rhonchi or rales appreciated no accessory muscle use, patient is speaking in complete sentences-no chest wall tenderness to palpation CVS: Regular rate and rhythm S1-S2, no murmurs rubs or gallops, pulses are brisk and equal bilaterally ABD: Soft, nondistended, nontender, no rebound guarding or rigidity, bowel sounds are normal, no pulsatile masses appreciated Extremities: Moving all extremities, no lower extremity tenderness or swelling noted, negative Homans' sign, pulses are brisk and equal bilaterally, feet are warm and sensate Skin: Normal in appearance without rash,pallor, petechiae or purpura Neuro: No focal deficits; speech is clear, there is no facial droop, 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 Patient is able to raise both legs off the stretcher and hold them against gravity without difficulty. NIH stroke scale is 0 Constitutional Vital Signs, click to edit/add: Last Vital Signs Temp 98.2 F 05/13/24 04:04 Pulse 53 L 05/13/24 05:40 Resp 18 05/13/24 05:40 BP 160/96 H 05/13/24 05:30 Pulse Ox 98 05/13/24 04:04 O2 Del Method Room Air 05/13/24 04:04 Course Vital Signs Vital signs: Vital Signs Temperature 98.2 F 05/13/24 04:04 Pulse Rate 56 L 05/13/24 04:04 Respiratory Rate 18 05/13/24 04:04 Blood Pressure 169/104 H 05/13/24 04:04 Pulse Oximetry 98 05/13/24 04:04 Oxygen Delivery Method Room Air 05/13/24 04:04 Temperature 98.2 F 05/13/24 04:04 Pulse Rate 53 L 05/13/24 05:40 Respiratory Rate 18 05/13/24 05:40 Blood Pressure 160/96 H 05/13/24 05:30 Pulse Oximetry 98 05/13/24 04:04 Oxygen Delivery Method Room Air 05/13/24 04:04 MDM - Neuro Symptoms/Deficit MDM Narrative Medical decision making narrative: This 63-year-old male with cardiac disease, polyneuropathy, myofascial pain, osteoarthritis etc. presents for evaluation of numbness and tingling in his feet and hands. He states he feels like his feet are cold. They are not. His feet are warm and sensate. He has normal pulses. The patient states for a while now he has been having episodes of nausea and has not been feeling right. He denies any chest pain or abdominal pain. He has not had any episodes of dizziness or syncope. Due to his history of cardiac disease a cardiac workup and CT scan was ordered. His neuroexam is completely normal. I do not appreciate any sensory loss or other abnormality of his lower extremities. He has a normal EKG. He was noted to have high blood pressure upon arrival. An IV was placed and he was given gentle IV hydration and Zofran. His blood pressure naturally came down into the 140s over 80s. He has a normal troponin. He has a normal lactic acid. He has a normal lipase. Normal electrolytes. CT scan of the brain was normal. CXR was ordered and shows some platelike atelectasis in the right lower lobe but otherwise no acute pneumonia or other concerning findings. The patient does not smoke. His lungs are clear. Pulse ox is normal. He has not had a fever and I do not think this is consistent with pneumonia. He will be discharged home with a prescription for Zofran with recommendation for close follow-up with his family physician. Medical Records Attestation: I reviewed the patient's medical records. Medical records narrative: The [address] [address] [address] Scan Report Signed Patient: AJ MORA MR#: [id number] : 1960 Acct:[id number] Age/Sex: 63 / M ADM Date: 05/13/24 Loc: ER Attending Dr: Ordering Physician: Lisa Blandon Date of Service: 05/13/24 Procedure(s): CT head/brain wo con Accession Number(s): [id number] cc: Romario Bronson M.D.~ The [address] [address] Patient Name: AJ MORA MRN: [id number] date: 1960 Sex: M Assigned Patient Location: ER Current Patient Location: ED.MAIN Accession/Order Number: [id number] Exam Date: 05/13/2024 04:45 Report Date: 05/13/2024 05:23 At the request of: LISA BLANDON Procedure: CT head/brain wo con CT OF THE BRAIN WITHOUT CONTRAST: 05/13/2024 4:45 AM EDT HISTORY: 63-year-old male. Weakness. TECHNIQUE: Contiguous axially collimated images were obtained through the intracranial compartment, from the vertex through the foramen magnum. Coronal and Sagittal reformatted images were prepared on a separate workstation and reviewed on the PACS for anatomic correlation. No contrast was administered. This CT exam was performed using one or more of the following dose reduction techniques: Automated exposure control, adjustment of the mA and/or kV according to patient size, or use of iterative reconstruction technique. Thin section coronal and sagittal images were reconstructed from the axial data set. All images were reviewed and interpreted. COMPARISON: None. FINDINGS: There is no intracranial hemorrhage or abnormal extra-axial fluid collection. To the extent of evaluated with noncontrast technique, there is no mass lesion appreciated. There is no mass-effect or shift of midline structures. The ventricles and CSF spaces are age appropriate. There is no evidence of hydrocephalus. There is no effacement of the basal cisterns. Mild age-appropriate there is symmetric bilateral cerebral cortical atrophy, within normal limits for age. Calderón white matter differentiation is well preserved throughout, without evidence of acute ischemia. There is no significant leukomalacia. The basal ganglia and thalami are unremarkable. The posterior fossa, brain stem, and fourth ventricle are normal. There is no tonsillar ectopy. The calvarium is intact, without destructive lesion or depressed fracture. The mastoid air cells are well-aerated. The paranasal sinuses are normally aerated. CT/CT head/brain wo con IMPRESSION: No acute or significant intracranial pathology. Electronically authenticated by: LUIS ALFREDO FLORES Date: 05/13/2024 05:23 Lab Data Attestation: I reviewed the patient's lab results. Labs: Lab Results 05/13/24 Range/Units 05:01 WBC 7.2 (4.0-11.0) 10^3/uL RBC 4.85 (4.70-6.10) 10^6/uL Hgb 15.3 (14.0-18.0) g/dL Hct 44.5 (42.0-54.0) % MCV 91.8 (80.0-94.0) fL MCH 31.5 (25.9-34.0) pg MCHC 34.4 (29.9-35.2) g/dL RDW 13.7 (11.0-15.0) % Plt Count 209 (150-450) 10^3/uL MPV 9.6 (9.5-13.5) fL Neut % (Auto) 69.3 (43.0-75.0) % Lymph % (Auto) 18.6 L (20.5-60.0) % [place] % (Auto) 8.8 (1.7-12.0) % Eos % (Auto) 2.2 (0.9-7.0) % Baso % (Auto) 0.8 (0.2-2.0) % Neut # (Auto) 5.0 (1.4-6.5) 10^3/uL Lymph # (Auto) 1.3 (1.2-3.8) 10^3/uL [place] # (Auto) 0.6 (0.3-0.8) 10^3/uL Eos # (Auto) 0.2 (0.0-0.7) 10^3/uL Baso # (Auto) 0.1 (0.0-0.1) 10^3/uL Abs Immat Gran (auto) 0.02 (0.00-0.03) 10^3/uL Imm/Tot Granulo (auto) 0.3 (0.0-0.5) % Sodium 139 (136-145) mmol/L Potassium 3.9 (3.5-5.1) mmol/L Chloride 105 (98-107) mmol/L Carbon Dioxide 27.4 (21.0-32.0) mmol/L Anion Gap 10.5 BUN 21.0 H (7.0-18.0) mg/dL Creatinine 0.81 (0.70-1.30) mg/dL Est GFR ( Amer) >60 (>=60) Est GFR (Non-Af Amer) >60 (>=60) BUN/Creatinine Ratio 25.9 Glucose 105 (74-106) mg/dL Lactate 0.9 (0.4-2.0) mmol/L Calcium 9.3 (8.5-10.1) mg/dL Total Bilirubin 0.6 (0.2-1.0) mg/dL AST 16 (15-37) U/L ALT 27 (16-63) U/L Alkaline Phosphatase 104 (46-116) U/L Troponin I High Sens 11.8 (4.0-76.1) pg/mL Total Protein 7.3 (6.4-8.2) g/dL Albumin 3.4 (3.4-5.0) g/dL Globulin 3.9 g/dL Albumin/Globulin Ratio 0.9 Lipase 55.0 (16.0-77.0) U/L ECG Data Attestation: I personally reviewed and interpreted this ECG as follows: (Sinus rhythm at 55 bpm, normal axis, normal intervals, no acute ST segment elevation or T wave inversion) Discharge Plan Discharge Chief Complaint: Neuro Symptoms/Deficit Clinical Impression: Polyneuropathy, Nausea, Elevated blood pressure reading Prescriptions / Home Meds: No Action oxycodone-acetaminophen [Percocet] 5-325 mg tablet 1 tab PO TID PRN (Reason: pain) Qty: 90 0RF Rx Instructions: must last 30 days oxycodone-acetaminophen [Percocet] 5-325 mg tablet 1 tab PO TID PRN (Reason: pain) Qty: 90 0RF aspirin 81 mg tablet,delayed release (DR/EC) 81 mg PO DAILY cholecalciferol (vitamin D3) 50 mcg (2,000 unit) capsule 50 mcg PO DAILY ferrous sulfate [Niels-Time] 325 mg (65 mg iron) tablet 325 mg PO BID isosorbide mononitrate 30 mg tablet extended release 24 hr 30 mg PO DAILY pregabalin [Lyrica] 100 mg capsule 100 mg PO BID meloxicam 15 mg tablet 15 mg PO DAILY nitroglycerin [Nitrostat] 0.4 mg tablet, sublingual 0.4 mg sublingual Q5M PRN (Reason: chest pain) Rx Instructions: do not exceed 3 doses per episode albuterol sulfate [ProAir HFA] 90 mcg/actuation HFA aerosol inhaler 1 inh inhalation Q6H pantoprazole [Protonix] 40 mg tablet,delayed release (DR/EC) 40 mg PO DAILY atorvastatin 40 mg tablet 40 mg PO DAILY lisinopril 40 mg tablet 40 mg PO DAILY metoprolol tartrate 25 mg tablet 25 mg PO BID tizanidine 4 mg capsule 4 mg PO .HS PRN (Reason: muscle spasticity) oxycodone-acetaminophen [Percocet] 5-325 mg tablet 1 tab PO TID PRN (Reason: pain) Qty: 90 0RF Print Language: Wolof Referrals: Romario Bronson MD [Primary Care Provider] - 1 week
--- NOTE | 2024-05-13 04:42 | PC.NURSE ---
PT C/O NUMBNESS TO BLE AND BILAT HANDS X MONTHS. PT ALSO C/O ONGOING NAUSEA BUT HAS NOT VOMITED
--- OUTSIDE RECORDS SUMMARY | 2024-05-13 04:58 | XMS_ITS | CCD ---
Author Organization [facility] CliniSyne Care Team Providers Care Chemotherapist Name Role Phone PHYSICIAN, DEFAULT Unavailable Unavailable PHYSICIAN, DEFAULT Unavailable Unavailable PHYSICIAN, DEFAULT Unavailable Unavailable PHYSICIAN, DEFAULT Unavailable Unavailable AHMAD, SHOWKAT Unavailable Unavailable AHMAD, SHOWKAT Unavailable Unavailable MELVI BATRES Unavailable Unavailable MARY CANTU Unavailable Unavailable JAXON WILSON Unavailable Unavailable Romario Man Primary Care Provider Magda, Romario Bloom Primary Care Provider [phone] Romario Man MD Primary Care Provider MAGDA, ROMARIO Primary Care Physician [phone] MAGDA PROVIDER, ROMARIO Referring Unavailab Julian Kelly Attending Unavailable NILL, Julian Davis Attending Unavailable NILL, Julian Davis Attending Unavailable NILL, Julian Davis Attending Unavailable NADERER PROVIDER, ROMARIO Referring Unavailab Romario Morse MD Primary Care Provider MASSEY ., JULIANE Consulting Unavailable MASSEY ., JULIANE Admitting Unavailable MASSEY ., JULIANE Attending Unavailable NADERER, DR ROMARIO Waddell Primary Care Unavailable NADERER, DR ROMARIO Waddell Primary Care Unavailable SIEGAL, SHAHEEN Admitting Unavailable SIEGAL, SHAHEEN Attending Unavailable MASSEY ., JULIANE Admitting Unavailable MASSEY ., JULIANE Attending Unavailable REYES, DR PEDRO PABLO Davis Consulting Unavailable NADERER, [...] NELSON Gordon Admitting Unavailable IBRAHIM ., DR NELOSN Gordon Attending Unavailable NADERER, DR ROMARIO Waddell [...] Gordon Admitting Unavailable IBRAHIM ., DR NELSON Gordno Attending Unavailable NADERER, DR ROMARIO Waddell Primary Care Unavailable MASSEY ., JULIANE Consulting Unavailable NADERESusan, DR ROMARIO Waddell Primary Care Unavailable MASSEY ., JULIANE Consulting Unavailable IBRAHIM ., DR NELSON Gordon Attending Unavailable IBRAHIM ., DR NELSON Gordon Admitting Unavailable NADERESusan, DR ROMARIO Waddell Primary Care Unavailable IBRAHIM, [...] DAVIDSON Consulting Unavailable LILA, DAVIDSON Admitting Unavailable LILACASSIA NORMANA Attending Unavailable Unavailable Primary Care Provider Unavailabl e HERNANDEZ, JENNIE S Referring Unavailable JW CEE Attending Unavailab Romario Morse MD Primary Care Provider [phone] HERNANDEZ, JENNIE S Referring Unavailable HERNANDEZ, JENNIE [...] S Attending Unavailable [facility] Primary Care Unavailable SELF, [...] Referring Unavailable NADERER, ROMARIO Primary Care Unavailable Jeimyr Romario DRUMMOND Primary Care Provider MARCELINASOUTHEASTERN [facility] HE[facility] SERVICESROMARIO Davis LEVI Primary Care UnavailFANY Toney Consulting Unavailable KENDELL CAMACHO Admitting Unavailable JANICE, KENDELL Attending Unavailable NADIA FITZPATRICK Attending ROMARIO Carranza Primary Care UnavailROMARIO Gardner Attending Unavailable DAVIDSON SHARP Attending Unavailable ELIEL OROPEZA Attending Unavailable Rolan DRUMMOND, Mo Pike Attending Unavailable Rolan DRUMMOND, Mo Pike Attending Unavailable Allergies Allergy Classification Reported Allergen(s) Allergy Type Date of Onset Reaction(s) Facility (1 source) No Known Medication Allergies; Translations: [No Known Medication Allergies] Propensity to adverse reactions (disorder) [facility] Repository Medications Current Medications Medication Drug Class(es) Dates Sig (Normalized) Sig (Original) Acetaminophen (10 sources) Start: 12-30-2022 acetaminophen (TYLENOL) tablet 650 mg Start: 09-12-2019 take 2 tablets by mo [facility] every eight hours as needed for pain [...] 05-23-2022 take [address] [facility] twice daily Esopus 5/325 Tab 1 tab(s), Oral, BID, Refill(s) [...] Start: 01-20-2023 take 1 capsule by mo [facility] twice daily Pregabalin 50 MG capsule Take [...] 1 tablet by mouth once daily aspirin, [id number], tablet Take 1 tablet by mouth daily. 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 CURRENT DRUG THERAPY] Onset: 07-01-2022 Episodic Other [...] Range Facility Office Visiton 02-11-2024 Follow-up visit [id number] Dorothea Alva Nola 1960 M Date Provider Department Center 02/11/2024 ELIEL ECKERT VALENCIA Krishnamurthy [facility] Family History Problem Relation Age of Onset Coronary artery disease Mother Coronary artery disease Father Family Status - Relation Status Age at Mother Father Level of Service:71670 [place] OFFICE/OUTPATIENT ESTABLISHED MOD MDM 30 MIN Normal [facility] COVID-19, Rapidon 2023 SARS-CoV-2 (COVID-19) RdRp gene DAHLIA+probe Ql (Resp) Not detected Not Detected [facility] Comment on above: Rapid NAAT: The specimen [...] management decisions. Fact sheet for Healthcare Providers: https://www.fda.gov/media/242658/download Fact sheet for Patients: https://www.fda.gov/media/416593/download Methodology: Isothermal Nucleic Acid Amplification Specimen Description .NASOPHARYNGEAL SWAB [facility] Flu A/B Ag Detectionon 10-10 Flu A Ag Detection Negative Normal NEG [facility] Comment on above: Result Comment: for Influenza A Antigen Performed By: #### F LUABA #### [facility] [address] [place] [address] Embedded Software Test Engineer: Luis Carlos Del Castillo MD Flu B Ag Detection Negative Normal NEG [facility] Comment on above: Result Comment: for Influenza B Antigen. Performed By: #### F LUABA #### [facility] [address] [place] [address] Embedded Software Test Engineer: Luis Carlos Del Castillo MD Rapid influenza A/B antigens on 2023 FLUAV Ag Ql (Unsp spec) Negative NEGATIVE [facility] Comment on above: for Influenza A Anti gen FLUBV Ag Ql (Unsp spec) Negative NEGATIVE [facility] Comment on above: for Influenza B Anti gen. [facility] [id number] 2023 SARS-CoV-2 (COVID-19) RNA DAHLIA+probe Ql (Unsp spec) Not detected Normal NOTDET [facility] Comment on above: Result Comment: Rapid NAAT: [...] management decisions. Fact sheet for Healthcare Providers: https://www.fda.gov/media/881997/download Fact sheet for Patients: https://www.fda.gov/media/465671/download Methodology: Isothermal Nucleic Acid Amplification Performed By: #### C OVRB #### [facility] [address] [place] [address] Embedded Software Test Engineer: Luis Carlos Del Castillo MD XR [...] Nav Hudson MD 10/10/23 Final result Normal [facility] Documentationon 09-18-2023 Documentation [id number] ArtieDorothea Vaca 1960 M Date Provider Department [facility] Family History Problem Relation Age of Onset Coronary artery disease Mother Coronary artery disease Father Family Status - Relation Status Age at Mother Father Normal [facility] CBCon 09-09-2023 ABSOLUTE BAS 0.1 10*3/uL Normal 0.0-0.2 [facility] ABSOLUTE EOS 0.1 10*3/uL Normal 0.0-0.7 [facility] ABSOLUTE NEUTROPHIL COUNT 7.0 10*3/uL High 1.4-6.5 [facility] Basophils/100 WBC (Bld) 0.9 % Normal 0.0-2.0 [facility] DTYPE AUTO DIFF Normal [facility] Eosinophils/100 WBC (Bld) 1.3 % Normal 0.0-11.0 [facility] Lymphocytes (Bld) [#/Vol] 1.5 10*3/uL Normal 1.2-3.4 [facility] Lymphocytes/100 WBC (Bld) 15.7 % Low 20.0-55.0 [facility] Monocytes (Bld) [#/Vol] 0.6 10*3/uL Normal 0.0-0.7 [facility] Monocytes/100 WBC (Bld) 7.0 % Normal 0.0-10.0 [facility] Neutrophils/100 WBC (Bld) 75.1 % High 37.0-75.0 [facility] Erythrocyte distribution width (RBC) [Ratio] 14.6 % High 11.5-14.5 [facility] Hematocrit (Bld) [Volume fraction] 41.6 % Low 42.0-52.0 [facility] Hemoglobin (Bld) [Mass/Vol] 13.9 g/dL Low 14.0-18.0 [facility] MCH (RBC) [Entitic mass] 33.0 pg Normal 26.0-35.0 [facility] MCHC (RBC) [Mass/Vol] 33.4 g/dL Normal 27.0-37.0 [facility] MCV (RBC) [Entitic vol] 98.7 fL Normal 80.0-100.0 [facility] Platelet mean volume (Bld) [Entitic vol] 7.8 fL Normal 7.4-11.0 [facility] Platelets (Bld) [#/Vol] 195 10*3/uL Normal 130-400 [facility] RBC (Bld) [#/Vol] 4.21 10*6/uL Normal 4.0-6.1 [facility] WBC (Bld) [#/Vol] 9.3 10*3/uL Normal 3.6-11.0 [facility] CMP FASTINGon 09-09-2023 A:G RATIO 1.5 RATIO Normal 1.3-2.2 [facility] ALBUMIN 4.3 G/dl Normal 3.5-5.0 [facility] ALP [Catalytic activity/Vol] 99 U/L Normal 38-126 [facility] ALT [Catalytic activity/Vol] 46 U/L Normal <50 [facility] AST [Catalytic activity/Vol] 57 U/L Normal 17-59 [facility] Bilirubin [Mass/Vol] 0.7 mg/dL Normal 0.2-1.3 [facility] Calcium [Mass/Vol] 9.5 mg/dL Normal 8.4-10.2 [facility] Chloride [Moles/Vol] 105 mmol/L Normal 98-107 [facility] Comment on above: Result Comment: Gilma medellin note: Triglyceride levels of 600mg/dL or higher may positively bias chloride results by approximately 2.1 mmol CO2 [Moles/Vol] 27 mmol/L Normal 22-30 [facility] Creatinine [Mass/Vol] 0.60 mg/dL Low 0.7-1.2 [facility] EST. GFR, 176 ml/min/1.73sq.m Normal [facility] EST. GFR,Non 145 ml/min/1.73sq.m Normal [facility] GFR Information Average GFR for 60-6 9 years old = 85. 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 Kidney failure, GFR = <15. The GFR estimate is not adjusted for extreme body surface area or acute process, nor has it been validated for women or ethnic groups other than and . Glucose [Mass/Vol] 86 mg/dL Normal 70-100 [facility] Comment on above: Result Comment: NORMAL <100 mg/dL PREDIABETES 101-126 mg/dL DIABETES 126 mg/dL or higher Potassium [Moles/Vol] 4.0 mmol/L Normal 3.5-5.1 [facility] Protein [Mass/Vol] 7.1 g/dL Normal 6.3-8.2 [facility] Sodium [Moles/Vol] 141 mmol/L Normal 137-145 [facility] Urea nitrogen [Mass/Vol] 16 mg/dL Normal 7-20 [facility] LARGE JOINT/BURSA INJECTION AND/OR ASPIRATIONon 08-13-2023 Radiology Study observation (narrative) [facility] Office Visiton 08-13-2023 Follow-up visit [id number] Dorothea Alva 1960 M Provider Department Center 08/13/2023 DAVIDSON HOWELL VALENCIA [facility] Family History Problem Relation Age of Onset Coronary artery disease Mother Coronary artery disease Father Family Status - Relation Status Age at Mother Father Level of Service:68129 [place] OFFICE/OUTPATIENT ESTABLISHED MOD [facility] 30-39 MIN Reason for Visit and Comments: Coronary Artery Disease [187] Chest Pain [559283] Pre-op Exam [897470] Hyperlipidemia [182] Hypertension [678645] [facility] Orders Onlyon 08-13-2023 Orders Only [id number] Dorothea Alva 1960 M Provider Department [place] 08/13/2023 ADA BALTAZAR VALENCIA Becker Family History Problem Relation Age of Onset Coronary artery disease Mother Coronary artery disease Father Family Status - Relation Status Age at Mother Father [facility] 36on 08-03-2023 36 Patient will need an appointment for further refills - thanks ! [facility] LARGE JOINT/BURSA INJECTION AND/OR ASPIRATIONon 07-16-2023 Eric [...] fashion. The patient was prepped with Chloraprep. [facility] [place] Unspecified body regionon 07-16-2023 Image Storage This order is to facilitate the storage of the image. [facility] LARGE JOINT/BURSA INJECTION AND/OR ASPIRATIONon 06-17-2023 Radiology Study observation (narrative) [facility] LARGE JOINT/BURSA INJECTION AND/OR ASPIRATIONon 06-10-2023 [...] fashion. The patient was prepped with Chloraprep. [facility] [place] Unspecified body regionon 06-10-2023 Image Storage This order is to facilitate the storage of the image. [facility] LARGE JOINT/BURSA INJECTION AND/OR ASPIRATIONon 05-15-2023 Radiology Study observation (narrative) [facility] LARGE JOINT/BURSA INJECTION AND/OR ASPIRATIONon 04-18-2023 [...] fashion. The patient was prepped with Chloraprep. [employer] [place] Unspecified body regionon 04-18-2023 Image Storage This order is to facilitate the storage of the image. [employer] XR HIPS KOURTNEY 5V W PELVISon XR [...] LUIS CARLOS ENCARNACION Date: 2023-01-08 13:57 Normal [facility] XR LSPINE W_OBLS AND FLEX_EX [...] LUIS CARLOS ENCARNACION Date: 2023-01-08 14:00 Normal [facility] Hemoglobin A1Con 01-01-2023 Glucose [Mass/Vol] 114 mg/dL Normal [facility] Comment on above: Result Comment: The ADA and AACC recommend providing the estimated average glucose result to permit better patient understanding of their HBA1c result. Performed By: #### L IPR #### [address] [id number] Embedded Software Test Engineer: Marshall Paulino MD HbA1c (Bld) [Mass fraction] 5.6 % Normal 4.0-6.0 [facility] Comment on above: Performed By: #### L IPR #### [address] [address] Embedded Software Test Engineer: Marshall Paulino MD Basic Metab w/rfx MGon 12-31 Anion gap [Moles/Vol] 9 mmol/L Normal - [facility] Comment on above: Performed By: #### T DARYNI CDP, BMPX #### [facility] [address] [place] [address] Embedded Software Test Engineer: Luis Carlos Del Castillo MD #### GLYHGB #### [address] [id number] Embedded Software Test Engineer: Marshall Paulino MD BUN/CRE Ratio 39 High 9- [facility] Comment on above: Performed By: #### T DARYNI, CDP, BMPX #### [facility] [address] [place] [address] Embedded Software Test Engineer: Luis Carlos Del Castillo MD #### GLYHGB #### [id number] [place], [place] [phone] Embedded Software Test Engineer: Marshall Paulion MD Calcium [Mass/Vol] 9.5 mg/dL Normal 8.6-10.4 [facility] Comment on above: Performed By: #### T ROPI, CDP, BMPX #### [facility] [address] [place], [place] [phone] Embedded Software Test Engineer: Luis Carlos Del Castillo MD #### GLYHGB #### [address] [place], [place] 2484[address] Embedded Software Test Engineer: Marshall Paulino MD Chloride [Moles/Vol] 106 mmol/L Normal 98-107 [facility] Comment on above: Performed By: #### T ROPI, CDP, BMPX #### [facility] [address] [place] [id number] Embedded Software Test Engineer: Luis Carlos Del Castillo MD #### GLYHGB #### [address] [place], [place] [id number] Embedded Software Test Engineer: Marshall Paulino MD CO2 [Moles/Vol] 25 mmol/L Normal 20-31 [facility] Comment on above: Performed By: #### T ROPI, CDP, BMPX #### [facility] [address] [place], [place] 9967083 Embedded Software Test Engineer: Luis Carlos Del Castillo MD #### GLYHGB #### [address] [place] [address] Embedded Software Test Engineer: Marshall Paulino MD Creatinine [Mass/Vol] 0.70 mg/dL Normal 0.70-1.20 [facility] Comment on above: Performed By: #### T ROPI, CDP, BMPX #### [facility] [address] [place], [place] [phone] Embedded Software Test Engineer: Luis Carlos Del Castillo MD #### GLYHGB #### [address] [place] [address] Embedded Software Test Engineer: Marshall Paulino MD GFR/1.73 sq M.predicted among non-blacks MDRD (S/P/Bld) [Vol rate/Area] mL/min/{1.73_m2} Normal >60 [facility] Comment on above: Result Comment: These results [...] By: #### T GEE ALONZO, BMPX #### [facility] [address] [place] [address] [place] [address] Embedded Software Test Engineer: Luis Carlos Del Castillo MD #### GLYHGB #### [address] [address] Embedded Software Test Engineer: Marshall Paulino MD Glucose [Mass/Vol] 103 mg/dL High 70-99 [facility] Comment on above: Performed By: #### T GEE ALONZO, BMPX #### [facility] [address] [place] [address] Dr. [place], [place] [phone] Embedded Software Test Engineer: Luis Carlos Del Castillo MD #### GLYHGB #### [address] [address] Embedded Software Test Engineer: Marshall Paluino MD Potassium [Moles/Vol] 4.3 mmol/L Normal 3.7-5.3 [facility] Comment on above: Performed By: #### T GEE ALONZO, BMPX #### [facility] [address] [place] [address] Dr. [place], [place] 0151683 Embedded Software Test Engineer: Luis Carlos Del Castillo MD #### GLYHGB #### [address] [phone] Embedded Software Test Engineer: Marshall Paulino MD Sodium [Moles/Vol] 140 mmol/L Normal 135-144 [facility] Comment on above: Performed By: #### GEE ESPAÑA, BMPX #### [facility] [address] [place] [address] Embedded Software Test Engineer: Luis Carlos Del Castillo MD #### GLYHGB #### [facility] [address] [place], [place] 0[address] Embedded Software Test Engineer: Marshall Paulino MD Urea nitrogen [Mass/Vol] 27 mg/dL High 8-23 [facility] Comment on above: Performed By: #### GEE ESPAÑA, BMPX #### [facility] [address] [place] [address] Embedded Software Test Engineer: Luis Carlos Del Castillo MD #### GLYHGB #### [facility] [address] [place], [place] [phone] Embedded Software Test Engineer: Marshall Paulino MD Basic Metabolic Panel w/ Ref maria antonia to MGon 12-31-2022 Anion gap [Moles/Vol] 9 mmol/L 9 - 17 mmol/L [facility] Calcium [Mass/Vol] 9.5 mg/dL 8.6 - 10. 4 mg/dL [facility] Chloride [Moles/Vol] 106 mmol/L 98 - 10 7 mmol/L [facility] CO2 [Moles/Vol] 25 mmol/L 20 - 31 mmol/L [facility] Creatinine [Mass/Vol] 0.7 mg/dL 0.70 - 1.20 mg/dL [facility] GFR/1.73 sq M.predicted MDRD (S/P/Bld) [Vol rate/Area] - PINF [facility] Comment on above: These results are not [...] 103 mg/dL High 70 - 99 mg/dL [facility] Interpretation and review of laboratory results Abnormal [facility] Potassium [Moles/Vol] 4.3 mmol/L 3.7 - 5.3 mmol/L [facility] Sodium [Moles/Vol] 140 mmol/L 135 - 144 mmol/L [facility] Urea nitrogen [Mass/Vol] 27 mg/dL High 8 - 23 mg/dL [facility] Urea nitrogen/Creatinine (Bld) [Mass ratio] 39 High 9 - 20 [facility] CARDIAC STRESS TESTon 2022 CARDIAC STRESS TEST [address] [address] CARDIAC STRESS TEST PATIENT NAME: NOEL ALVA : 1960 MED REC NO: [id number] ROOM: [facility] ACCOUNT NO: [id number] ADMIT DATE: 12/30/2022 PROVIDER: Fany Mohr MD [...] a calcium channel sarah. FANY MOHR MD MIRIAN/BILLY_EDIT Doc#: Unknown CC: Romario Man Normal [facility] CBC with Auto Differentialon 12-31-2022 Absolute Eos # 0.18 [facility] Absolute Immature Granulocyte [facility] Absolute Lymph # 1.[facility] Absolute Tyler # 0.72 [facility] Basophils (Bld) [#/Vol] 0.05 10*3/uL [facility] Interpretation and review of laboratory results Abnormal [facility] NRBC Automated 0.0 0.0 per 100 WBC [facility] Platelet distribution width (Bld) [Ratio] 13.9 % 11.8 - 14.4 % [facility] Segmented neutrophils/100 WBC (Bld) 62 % 36 - 65 % [facility] Segs Absolute 4.27 [facility] CBC with Diffon 12-31-2022 Abs. Basophil 0.05 k/uL Normal 0.00-0.20 [facility] Comment on above: Performed By: #### T GEE ALONZO, BMPX #### [facility] [address] [place] [address] Embedded Software Test Engineer: Luis Carlos Del Castillo MD #### GLYHGB #### [place] [address] Embedded Software Test Engineer: Marshall Paulino MD Abs.Imm.Granulocyte <0.03 Normal 0.00-0.30 [facility] Comment on above: Performed By: #### T GEE ALONZO, BMPX #### [facility] [address] [place] [address] Embedded Software Test Engineer: Luis Carlos Del Castillo MD #### GLYHGB #### [place] [address] Embedded Software Test Engineer: Marshall Paulino MD Abs.Neutrophil (Seg) 4.27 k/uL Normal 1.50-8.10 [facility] Comment on above: Performed By: #### T ROPI, CDP, BMPX #### [address] [place], [place] [phone] Embedded Software Test Engineer: Luis Carlos Del Castillo MD #### GLYHGB #### [address] [id number] Embedded Software Test Engineer: Marshall Paulino MD Eosinophils (Bld) [#/Vol] 0.18 10*3/uL Normal 0.00-0.44 [facility] Comment on above: Performed By: #### T CHREI, CDP, BMPX #### [address] [place] [phone] Embedded Software Test Engineer: Luis Carlos Del Castillo MD #### GLYHGB #### [address] [id number] Embedded Software Test Engineer: Marshall Paulino MD Erythrocyte distribution width (RBC) [Ratio] 13.9 % Normal 11.8-14.4 [facility] Comment on above: Performed By: #### T CHERI CDP, BMPX #### [address] [place] 2012983 Embedded Software Test Engineer: Luis Carlos Del Castillo MD #### GLYHGB #### [address] [id number] Embedded Software Test Engineer: Marshall Paulino MD Lymphocytes (Bld) [#/Vol] 1.58 10*3/uL Normal 1.10-3.70 [facility] Comment on above: Performed By: #### T CHERI, CDP, BMPX #### [address] [place] [address] Embedded Software Test Engineer: Luis Carlos Del Castillo MD #### GLYHGB #### [address] [address] [place], [place] [phone] Embedded Software Test Engineer: Marshall Paulino MD Monocytes (Bld) [#/Vol] 0.72 10*3/uL Normal 0.10-1.20 [facility] Comment on above: Performed By: #### T ROPI, CDP, BMPX #### [facility] [address] [place], [place] [phone] Embedded Software Test Engineer: Luis Carlos Del Castillo MD #### GLYHGB #### [address] [id number] Embedded Software Test Engineer: Marshall Paulino MD Neutrophil (Seg) 62 % Normal 36-65 [facility] Comment on above: Performed By: #### T ROPI, CDP, BMPX #### [facility] [address] [place] [address] [address] [place], [place] [phone] Embedded Software Test Engineer: Luis Carlos Del Castillo MD #### GLYHGB #### [address] [id number] Embedded Software Test Engineer: Marshall Paulino MD NRBC Automated 0.0 per 100 WBC Normal 0.0 [facility] [place] Comment on above: Performed By: #### T ROPI, CDP, BMPX #### [facility] [address] [place] [address] Dr. [place], [place] [id number] Embedded Software Test Engineer: Luis Carlos Del Castillo MD #### GLYHGB #### [address] [address] Embedded Software Test Engineer: Marshall Paulino MD Basophils/100 WBC (Bld) 1 % Normal 0-2 [facility] Comment on above: Performed By: #### T ROPI, CDP, BMPX #### [facility] [address] [place] [address] Dr. [place], [place] [id number] Embedded Software Test Engineer: Luis Carlos Del Castillo MD #### GLYHGB #### [address] [address] Embedded Software Test Engineer: Marshall Paulino MD Eosinophils/100 WBC (Bld) 3 % Normal 1-4 [facility] Comment on above: Performed By: #### T ROPI, CDP, BMPX #### [address] [place] [id number] Embedded Software Test Engineer: Luis Carlos Del Castillo MD #### GLYHGB #### [address] [id number] Embedded Software Test Engineer: Marshall Paulino MD Hematocrit (Bld) [Volume fraction] 40.4 % Low 40.7-50.3 [facility] Comment on above: Performed By: #### T ROPI, CDP, BMPX #### [address] [place] [id number] Embedded Software Test Engineer: Luis Carlos Del Castillo MD #### GLYHGB #### [place] [id number] Embedded Software Test Engineer: Marshall Paulino MD Hemoglobin (Bld) [Mass/Vol] 13.5 g/dL Normal 13.0-17.0 [facility] Comment on above: Performed By: #### T ROPI, CDP, BMPX #### [address] [place] [id number] Embedded Software Test Engineer: Luis Carlos Del Castillo MD #### GLYHGB #### [place] [id number] Embedded Software Test Engineer: Marshall Paulino MD Immature granulocytes/100 WBC (Bld) 0 % Normal 0 [facility] Comment on above: Performed By: #### T ROPI, CDP, BMPX #### [address] [place] [phone] Embedded Software Test Engineer: Luis Carlos Del Castillo MD #### GLYHGB #### [place] [id number] Embedded Software Test Engineer: Marshall Paulino MD Lymphocytes/100 WBC (Bld) 23 % Low 24-43 [facility] Comment on above: Performed By: #### T ROPI, CDP, BMPX #### [address] [place] [address] Embedded Software Test Engineer: Luis Carlos Del Castillo MD #### GLYHGB #### [address] [id number] Embedded Software Test Engineer: Marshall Paulino MD MCH (RBC) [Entitic mass] 31.2 pg Normal 25.2-33.5 [facility] Comment on above: Performed By: #### T CHERI, CDP, BMPX #### [address] [place] [address] Embedded Software Test Engineer: Luis Carlos Del Castillo MD #### GLYHGB #### [place] [id number] [place] [phone] Embedded Software Test Engineer: Marshall Paulino MD MCHC (RBC) [Mass/Vol] 33.4 g/dL Normal 28.4-34.8 [facility] Comment on above: Performed By: #### T CHERI CDP, BMPX #### [address] [place] [address] Embedded Software Test Engineer: Luis Carlos Del Castillo MD #### GLYHGB #### [place] [id number] Embedded Software Test Engineer: Marshall Paulino MD MCV (RBC) [Entitic vol] 93.3 fL Normal 82.6-102.9 [facility] Comment on above: Performed By: #### T CHERI, CDP, BMPX #### [address] [place] [address] Embedded Software Test Engineer: Luis Carlos Del Castillo MD #### GLYHGB #### [address] [id number] Embedded Software Test Engineer: Marshall Paulino MD Monocytes/100 WBC (Bld) 11 % Normal 3-12 [facility] Comment on above: Performed By: #### T ROPI, CDP, BMPX #### [address] [place], [place] [phone] Embedded Software Test Engineer: Luis Carlos Del Castillo MD #### GLYHGB #### [address] [id number] Embedded Software Test Engineer: Marshall Paulino MD Platelet mean volume (Bld) [Entitic vol] 10.1 fL Normal 8.1-13.5 [facility] Comment on above: Performed By: #### T ROPI, CDP, BMPX #### [address] [place] [phone] Embedded Software Test Engineer: Luis Carlos Del Castillo MD #### GLYHGB #### [address] [address] Embedded Software Test Engineer: Marshall Paulino MD Platelets (Bld) [#/Vol] 190 10*3/uL Normal 138-453 [facility] Comment on above: Performed By: #### T CHERI, CDP, BMPX #### [address] [place] [phone] Embedded Software Test Engineer: Luis Carlos Del Castillo MD #### GLYHGB #### [address] [id number] Embedded Software Test Engineer: Marshall Paulino MD RBC (Bld) [#/Vol] 4.33 10*6/uL Normal 4.21-5.77 [facility] Comment on above: Performed By: #### T ROPLiane, CDP, BMPX #### [address] [place] [address] Embedded Software Test Engineer: Luis Carlos Del Castillo MD #### GLYHGB #### [address] [phone] Embedded Software Test Engineer: Marshall Paulino MD WBC (Bld) [#/Vol] 6.8 10*3/uL Normal 3.5-11.3 [facility] [employer] Comment on above: Performed By: #### T CHERI, CDP, BMPX #### [facility] [address] [place] [address] Embedded Software Test Engineer: Luis Carlos Del Castillo MD #### GLYHGB #### [address] [place] [address] Embedded Software Test Engineer: Marshall Paulino MD EKG 12 leadon 12-31-2022 Atrial Rate 51 BPM [employer] Work Phone: P [place] 51 degrees [employer] Work Phone: P-R Interval 144 ms [facility] [employer] Work Phone: Q-T Interval 490 ms [employer] Work Phone: QRS Duration 72 ms [employer] Work Phone: QTc Calculation (Bazett) 451 ms [employer] Work Phone: R [place] 47 degrees [employer] Work Phone: T [place] 91 degrees [employer] Work Phone: Ventricular Rate 51 BPM [facility] [employer] Work Phone: Sinus bradycardia T wave abnormality, consider lateral ischemia Abnormal ECG When compared with ECG of 30-DEC-2022 06:16, Inverted T waves have replaced nonspecific T wave abnormality in Anterior leads QT has lengthened Confirmed by Fany Mohr MD ([id number]) on 12/31/2022 1:07:24 PM [facility] Fany Mohr MD - 12/31/2022 Sinus bradycardia T wave abnormality, consider lateral ischemia Abnormal ECG When compared with ECG of 30-DEC-2022 06:16, Inverted T waves have replaced nonspecific T wave abnormality in Anterior leads QT has lengthened Confirmed by Fany Mohr MD ([id number]) on 12/31/2022 1:07:24 PM [facility] Work Phone: [facility] Work Phone: EKG Rhythm Stripon [address] [facility] Lipid Panelon 12-31-2022 Cholesterol [Mass/Vol] 103 mg/dL NINF - 200 mg/dL [facility] Comment on above: Cholesterol Guidelines: <200 Desirable 200-240 Borderline >240 Undesirable Cholesterol in HDL [Mass/Vol] 44 mg/dL 40 - PINF mg/dL [facility] Comment on above: HDL Guidelines: <40 Undesirable 40-59 Borderline >59 Desirable Cholesterol in LDL [Mass/Vol] 46 mg/dL 0 - 130 mg/dL [facility] Comment on above: LDL Guidelines: <100 Desirable 100-129 Near to/above Desirable 130-159 Borderline >159 Undesirable Direct (measured) LDL and calculated LDL are not interchangeable tests. Cholesterol.total/Ch olesterol in HDL [Mass ratio] 2.3 {ratio} NINF - 5 [facility] Triglyceride [Mass/Vol] 67 mg/dL NINF - 150 mg/dL [facility] Comment on above: Triglyceride Guidelines: <150 Desirable 150-199 Borderline 200-499 High >499 Very high Based on AHA Guidelines for fasting triglyceride, July 2012. [facility] Lipid Profileon 12-31-2022 Cholesterol [Mass/Vol] 103 mg/dL Normal <200 [facility] [place] Comment on above: Result Comment: Cholesterol Guidelines: <200 Desirable 200-240 Borderline >240 Undesirable Performed By: #### L IPR #### [address] [place] [address] Embedded Software Test Engineer: Marshall Paulino MD Cholesterol in HDL [Mass/Vol] 44 mg/dL Normal >40 [facility] [place] Comment on above: Result Comment: HDL Guidelines: <40 Undesirable 40-59 Borderline >59 Desirable Performed By: #### L IPR #### [address] [place] [address] Embedded Software Test Engineer: Marshall Paulino MD Cholesterol in LDL [Mass/Vol] 46 mg/dL Normal 0-130 [facility] [place] Comment on above: Result Comment: LDL Guidelines: <100 Desirable 100-129 Near to/above Desirable 130-159 Borderline >159 Undesirable Direct (measured) LDL and calculated LDL are not interchangeable tests. Performed By: #### L IPR #### [address] [address] Embedded Software Test Engineer: Marshall Paulino MD Cholesterol.total/Ch olesterol in HDL [Mass ratio] 2.3 {ratio} Normal <5 [facility] [place] Comment on above: Performed By: #### L IPR #### [address] [address] Embedded Software Test Engineer: Marshall Paulino MD Triglyceride [Mass/Vol] 67 mg/dL Normal <150 [facility] [place] Comment on above: Result Comment: Triglyceride Guidelines: <150 Desirable 150-199 Borderline 200-499 High >499 Very high Based on AHA Guidelines for fasting triglyceride, July 2012. Performed By: #### L IPR #### [address] [address] Embedded Software Test Engineer: Marshall Paulino MD Resp Viral Panelon 3 Adenovirus Not detected Normal [facility] Comment on above: Performed By: #### L IPR #### [facility] [address] [place] [address] Embedded Software Test Engineer: MD Marissa Martin.parapertussis Not detected Normal [facility] Comment on above: Performed By: #### L IPR #### [facility] [address] [place] [address] Embedded Software Test Engineer: MD Elizabeth Martindetella pertussis Not detected Normal [facility] Comment on above: Performed By: #### L IPR #### [facility] [address] [place] [address] Embedded Software Test Engineer: Marshall Paulino MD Chlamyd.pneumoniae Not detected Normal [facility] Comment on above: Performed By: #### L IPR #### [facility] [address] [place] [address] Embedded Software Test Engineer: Marshall Paulino MD Coronavirus 229E Not detected Normal [facility] Comment on above: Performed By: #### L IPR #### [facility] [address] [place] [address] Embedded Software Test Engineer: Marshall Paulino MD Coronavirus HKU1 Not detected Normal [facility] Comment on above: Performed By: #### L IPR #### [address] [address] Embedded Software Test Engineer: Marshall Paulino MD Coronavirus NL63 Not detected Normal [facility] Comment on above: Performed By: #### L IPR #### [address] [address] Embedded Software Test Engineer: Marshall Paulino MD Coronavirus OC43 Not detected Normal [facility] Comment on above: Performed By: #### L IPR #### [address] [address] Embedded Software Test Engineer: Marshall Paulino MD Human Metapneumo Not detected Normal [facility] Comment on above: Performed By: #### L IPR #### [facility] [address] [place] [address] Embedded Software Test Engineer: Marshall Paulino MD Influenza A Not detected Normal [facility] Comment on above: Performed By: #### L IPR #### [facility] [address] [place] [address] Embedded Software Test Engineer: Marshall Paulino MD Influenza B Not detected Normal [facility] Comment on above: Performed By: #### L IPR #### [facility] [address] [place] [address] Embedded Software Test Engineer: Marshall Paulino MD Mycoplas.pneumoniae Not detected Normal [facility] Comment on above: Result Comment: Perf ormed by multiplexed nucleic acid assay. Performed By: #### L IPR #### [address] [address] Embedded Software Test Engineer: Marshall Paulino MD Parainfluenza 1 Not detected Normal [facility] Comment on above: Performed By: #### L IPR #### [facility] [address] [place] [address] Embedded Software Test Engineer: Marshall Paulino MD Parainfluenza 2 Not detected Normal [facility] Comment on above: Performed By: #### L IPR #### [facility] [address] [place] [address] Embedded Software Test Engineer: Marshall Paulino MD Parainfluenza 3 Not detected Normal [facility] Comment on above: Performed By: #### L IPR #### [facility] [address] [place] [address] Embedded Software Test Engineer: Marshall Paulino MD Parainfluenza 4 Not detected Normal [facility] Comment on above: Performed By: #### L IPR #### [facility] [address] [place] [address] Embedded Software Test Engineer: Marshall Paulino MD Resp Syncytial Virus Not detected Normal [facility] Comment on above: Performed By: #### L IPR #### [facility] [address] [place] [address] Embedded Software Test Engineer: Marshall Paulino MD Rhino/Enterovirus Not detected Normal [facility] Comment on above: Performed By: #### L IPR #### [facility] [address] [place] [address] Embedded Software Test Engineer: Marshall Paulino MD SARS-CoV-2 (COVID-19) RNA DAHLIA+probe Ql (Unsp spec) Not detected Normal NOTDET [facility] [place] Comment on above: Performed By: #### L IPR #### [facility] [address] [place] [address] Embedded Software Test Engineer: Marshall Paulino MD Respiratory Panel, Molecular , with COVID-19 (Restricted: peds pts or suitable admitted adults)on 12-31-2022 Adenovirus PCR Not detected Not Detected [facility] B. parapertussis [id number] DNA DAHLIA+non-probe Ql (Nph) Not detected Not Detected [facility] B. pertussis DNA DAHLIA+probe Ql (Unsp spec) Not detected Not Detected [facility] Chlamydia pneumoniae By PCR Not detected Not Detected [facility] Coronavirus 229E PCR Not detected Not Detected [facility] Coronavirus HKU1 PCR Not detected Not Detected [facility] Coronavirus NL63 PCR Not detected Not Detected [facility] Coronavirus OC43 PCR Not detected Not Detected [facility] FLUAV RNA DAHLIA+non-probe Ql (Nph) Not detected Not Detected [facility] FLUBV RNA DAHLIA+non-probe Ql (Nph) Not detected Not Detected [facility] Human Metapneumovirus PCR Not detected Not Detected [facility] Mycoplasma pneumo by PCR Not detected Not Detected [facility] Comment on above: Performed by multipl exed nucleic acid assay. Parainfluenza 1 PCR Not detected Not Detected [facility] Parainfluenza 2 PCR Not detected Not Detected [facility] Parainfluenza 3 PCR Not detected Not Detected [facility] Parainfluenza 4 PCR Not detected Not Detected [facility] Resp Syncytial Virus PCR Not detected Not Detected [facility] Rhino/Enterovirus PCR Not detected Not Detected [facility] SARS-CoV-2 (COVID-19) RNA DAHLIA+non-probe Ql (Nph) Not detected Not Detected [facility] Specimen Description .NASOPHARYNGEAL SWAB [facility] Troponinon 12-31-2022 Troponin, High Sens 18 ng/L Normal 0-22 [facility] [place] Comment on above: Result Comment: High Sensitivity Troponin values cannot be compared with other Troponin methodologies. Performed By: #### T DARYNI, CDP, BMPX #### [facility] [address] [place] [address] Embedded Software Test Engineer: Luis Carlos Del Castillo MD #### GLYHGB #### [place] [phone] [place] [address] Embedded Software Test Engineer: Marshall Paulino MD Troponin I.cardiac DL <= 0.01 ng/mL [Mass/Vol] 18 ng/L 0 - 22 ng/L [facility] Comment on above: High Sensitivity Tro ponin values cannot be compared with other Troponin methodologies. [facility] Brain Natri. Peptideon 12-30 Natriuretic peptide B (Bld) [Mass/Vol] 308 pg/mL High <300 [facility] Comment on above: Result Comment: An age-independent cutoff point of 300 pg/ml has a 98% negative predictive value excluding acute heart failure. Performed By: #### B SKI LIFT OPERATOR #### [facility] [address] [place] [address] Embedded Software Test Engineer: Luis Carlos Del Castillo MD Brain Natriuretic Peptideon 12-30-2022 Interpretation and review of laboratory results Abnormal [facility] Natriuretic peptide B (Bld) [Mass/Vol] 308 pg/mL High NINF - 300 pg/mL [facility] Comment on above: An age-independent cutoff point of 300 pg/ml has a 98% negative predictive value excluding acute heart failure. [facility] CBC with Auto Differentialon 12-30-2022 [facility] # [facility].07 [facility] Absolute Immature Granulocyte 0.04 [facility] Absolute Lymph # 1.83 [facility] Absolute Tyler # 0.91 [facility] Basophils (Bld) [#/Vol] 0.06 10*3/uL [facility] Basophils/100 WBC (Bld) 1 % 0 - 2 % [facility] Eosinophils/100 WBC (Bld) 1 % 1 - 4 % [facility] Hematocrit (Bld) [Volume fraction] 39.6 % Low 40.7 - 50.3 % [facility] Hemoglobin (Bld) [Mass/Vol] 13.8 g/dL 13.0 - 17.0 g/dL [facility] Immature granulocytes/100 WBC (Bld) 0 % 0 [facility] Interpretation and review of laboratory results Abnormal [facility] Lymphocytes/100 WBC (Bld) 18 % Low 24 - 43 % [facility] MCH (RBC) [Entitic mass] 31.8 pg 25.2 - 33.5 pg [facility] MCHC (RBC) [Mass/Vol] 34.8 g/dL 28.4 - 34.8 g/dL [facility] MCV (RBC) [Entitic vol] 91.2 fL 82.6 - 102.9 fL [facility] Monocytes/100 WBC (Bld) 9 % 3 - 12 % [facility] NRBC Automated 0.0 0.0 per 100 WBC [facility] Platelet distribution width (Bld) [Ratio] 13.5 % 11.8 - 14.4 % [facility] Platelet mean volume (Bld) [Entitic vol] 9.9 fL 8.1 - 13.5 fL [facility] Platelets (Bld) [#/Vol] 189 10*3/uL [facility] RBC (Bld) [#/Vol] 4.34 10*6/uL 4.21 - 5.77 m/uL [facility] Segmented neutrophils/100 WBC (Bld) 71 % High 36 - 65 % [facility] Segs Absolute 7.15 [facility] WBC (Bld) [#/Vol] 10.1 10*3/uL [facility] CBC with Diffon 12-30-2022 Abs. Basophil 0.06 k/uL Normal 0.00-0.20 [facility] Comment on above: Performed By: #### T NATHAN ALONZO, CDP #### [facility] [address] [place] [address] Embedded Software Test Engineer: Luis Carlos Del Castillo MD Abs.Imm.Granulocyte 0.04 k/uL Normal 0.00-0.30 [facility] Comment on above: Performed By: #### Ileana ALONZO CP, CDP #### [address] [place], [place] [phone] [employer] Software Test Engineer: Luis Carlos Del Castillo MD Abs.Neutrophil (Seg) 7.15 k/uL Normal 1.50-8.10 [facility] Comment on above: Performed By: #### Ileana ALONZO CP, CDP #### [address] [place], [place] [phone] [employer] Software Test Engineer: Luis Carlos Del Castillo MD Basophils/100 WBC (Bld) 1 % Normal 0-2 [facility] Comment on above: Performed By: #### Ileana ALONZO CP, CDP #### [address] [place], [place] [address] Embedded Software Test Engineer: Luis Carlos Del Castillo MD Eosinophils (Bld) [#/Vol] 0.07 10*3/uL Normal 0.00-0.44 [facility] Comment on above: Performed By: #### Ileana ALONZO CP, CDP #### [address] [place], [place] [phone] [employer] Software Test Engineer: Luis Carlos Del Castillo MD Eosinophils/100 WBC (Bld) 1 % Normal 1-4 [facility] Comment on above: Performed By: #### Ileana ALONZO CP, CDP #### [address] [place], [facility] [employer] Software Test Engineer: Luis Carlos Del Castillo MD Erythrocyte distribution width (RBC) [Ratio] 13.5 % Normal 11.8-14.4 [facility] Comment on above: Performed By: #### Ileana ALONZO CP, CDP #### [address] [place], [place] [phone] [employer]edded Software Test Engineer: Luis Carlos Del Castillo MD Hematocrit (Bld) [Volume fraction] 39.6 % Low 40.7-50.3 [facility] Comment on above: Performed By: #### Ileana ALONZO CP, CDP #### [facility] [address] [place], [place] [phone] Embedded Software Test Engineer: Luis Carlos Del Castillo MD Hemoglobin (Bld) [Mass/Vol] 13.8 g/dL Normal 13.0-17.0 [facility] Comment on above: Performed By: #### Ileana ALONZO CP, CDP #### [facility] [address] [place], [place] [phone] Embedded Software Test Engineer: Luis Carlos Del Castillo MD Immature granulocytes/100 WBC (Bld) 0 % Normal 0 [facility] Comment on above: Performed By: #### Ileana ALONZO CP, CDP #### [address] [place], [facility]83 Embedded Software Test Engineer: Luis Carlos Del Castillo MD Lymphocytes (Bld) [#/Vol] 1.83 10*3/uL Normal 1.10-3.70 [facility] Comment on above: Performed By: #### Ileana ALONZO CP, CDP #### [address] [place], [facility]83 Emb[employer]ded Software Test Engineer: Luis Carlos Del Castillo MD Lymphocytes/100 WBC (Bld) 18 % Low 24-43 [facility] Comment on above: Performed By: #### Ileana ALONZO CP, CDP #### [facility] [address] [place] [address] Dr. [place], [facility]83 [employer] Software Test Engineer: Luis Carlos Del Castillo MD MCH (RBC) [Entitic mass] 31.8 pg Normal 25.2-33.5 [facility] Comment on above: Performed By: #### Ileana ALONZO CP, CDP #### [address] [place], [place] [phone] [employer]edded Software Test Engineer: Luis Carlos Del Castillo MD MCHC (RBC) [Mass/Vol] 34.8 g/dL Normal 28.4-34.8 [facility] Comment on above: Performed By: #### Ileana ALONZO CP, CDP #### [facility] [address] [place], [place] [phone] Embedded Software Test Engineer: Luis Carlos Del Castillo MD MCV (RBC) [Entitic vol] 91.2 fL Normal 82.6-102.9 [facility] Comment on above: Performed By: #### Ileana ALONZO CP, CDP #### [address] [place], [place] [phone] [employer] Software Test Engineer: Luis Carlos Del Castillo MD Monocytes (Bld) [#/Vol] 0.91 10*3/uL Normal 0.10-1.20 [facility] Comment on above: Performed By: #### Ileana ALONZO CP, CDP #### [address] [place], [facility]83 [employer] Test Engineer: Luis Carlos Del Castillo MD Monocytes/100 WBC (Bld) 9 % Normal 3-12 [facility] [facility] [place] Comment on above: Performed By: #### Ileana ALONZO CP, CDP #### [address] [place] [address] [employer] Software Test Engineer: Luis Carlos Del Castillo MD Neutrophil (Seg) 71 % High 36-65 [facility] Comment on above: Performed By: #### Ileana ALONZO CP, CDP #### [address] [place], [place] [id number] [employer] Test Engineer: Luis Carlos Del Castillo MD NRBC Automated 0.0 per 100 WBC Normal 0.0 [facility] [place] Comment on above: Performed By: #### Ileana ALONZO CP, CDP #### [address] [place] [address] [employer] Software Test Engineer: Luis Carlos Del Castillo MD Platelet mean volume (Bld) [Entitic vol] 9.9 fL Normal 8.1-13.5 [facility] [place] Comment on above: Performed By: #### T NATHAN ALONZO, CDP #### [facility] [address] [place], [place] [id number] [employer] Software Test Engineer: Luis Carlos Del Castillo MD Platelets (Bld) [#/Vol] 189 10*3/uL Normal 138-453 [facility] [place] Comment on above: Performed By: #### Ileana ALONZO CP, CDP #### [facility] [address] [place], [place] [id number] [employer] Test Engineer: Luis Carlos Del Castillo MD RBC (Bld) [#/Vol] 4.34 10*6/uL Normal 4.21-5.77 [facility] [place] Comment on above: Performed By: #### Ileana ALONZO CP, CDP #### [facility] [address] [place] [address] [place] [address] [employer] Software Test Engineer: Luis Carlos Del Castillo MD WBC (Bld) [#/Vol] 10.1 10*3/uL Normal 3.5-11.3 [facility] [place] Comment on above: Performed By: #### Ileana ALONZO CP, CDP #### [facility] [address] [place] [address] [place] [place], [place] [id number] [employer] Test Engineer: Luis Carlos Del Castillo MD COVID-19, Rapidon 12-30-2022 SARS-CoV-2 (COVID-19) RdRp gene DAHLIA+probe Ql (Resp) Not detected Not Detected [facility] Comment on above: Rapid NAAT: The specimen [...] management decisions. Fact sheet for Healthcare Providers: https://www.fda.gov/media/352651/download Fact sheet for Patients: https://www.fda.gov/media/604520/download Methodology: Isothermal Nucleic Acid Amplification Specimen Description .NASOPHARYNGEAL SWAB [facility] CT CHEST PULMONARY EMBOLISM W CONTRASTon [...] Dov Love MD 12/30/22 Final result Normal [facility] [place] Negative for acute pulmonary embolus Right-sided aortic [...] helpful for further evaluation if clinically indicated. [facility] [employer] Work Phone: Radiology Study observation (narrative) [facility] [employer] Phone: CT CHEST PULMONARY EMBOLISM W CONTRASTOrdered By: Dov Love on 12-30-2022 [facility] [employer] Phone: Comp Metabolic Profon 2022 Albumin [Mass/Vol] 3.9 g/dL Normal 3.5-5.2 [facility] [place] Comment on above: Performed By: #### Ileana ALONZO CP, CDP #### [facility] [address] [place] [address] Embedded Software Test Engineer: Luis Carlos Del Castillo MD Albumin/Glob Ratio 1.3 Normal 1.0-2.5 [facility] [place] Comment on above: Performed By: #### Ileana ALONZO CP, CDP #### [facility] [address] [place] [address] Embedded Software Test Engineer: Luis Carlos Del Castillo MD Alkaline Phos 102 U/L Normal 40-129 [facility] Comment on above: Performed By: #### Ileana ALONZO CP, CDP #### [facility] [address] [place], [place] [id number] [employer] Software Test Engineer: Luis Carlos Del Castillo MD ALT [Catalytic activity/Vol] 19 U/L Normal 5-41 [facility] [place] Comment on above: Performed By: #### Ileana ALONZO CP, CDP #### [facility] [address] [place] [address] Embedded Software Test Engineer: Luis Carlos Del Castillo MD Anion gap [Moles/Vol] 10 mmol/L Normal 9-17 [facility] [place] Comment on above: Performed By: #### T NATHAN ALONZO, CDP #### [facility] [address] [place], [place] [id number] [employer] Software Test Engineer: Luis Carlos Del Castillo MD AST [Catalytic activity/Vol] 16 U/L Normal <40 [facility] [place] Comment on above: Performed By: #### T CHERI CP, CDP #### [facility] [address] [place], [place] [id number] [employer] Software Test Engineer: Luis Carlos Del Castillo MD Bilirubin [Mass/Vol] 0.8 mg/dL Normal 0.3-1.2 [facility] Comment on above: Performed By: #### T NATHAN ALONZO, CDP #### [address] [place], [place] [id number] [employer] Software Test Engineer: Luis Carlos Del Castillo MD BUN/CRE Ratio 25 High 9-20 [facility] Comment on above: Performed By: #### T NATHAN ALONZO, CDP #### [address] [place], [place] [id number] [employer] Software Test Engineer: Luis Carlos Del Castillo MD Calcium [Mass/Vol] 9.5 mg/dL Normal 8.6-10.4 [facility] [place] Comment on above: Performed By: #### T NATHAN ALONZO, CDP #### [address] [place], [place] [id number] [employer] Test Engineer: Luis Carlos Del Castillo MD Chloride [Moles/Vol] 105 mmol/L Normal 98-107 [facility] Comment on above: Performed By: #### T NATHAN ALONZO, CDP #### [facility] [address] [place], [place] [id number] [employer] Test Engineer: Luis Carlos Del Castillo MD CO2 [Moles/Vol] 24 mmol/L Normal 20-31 [facility] Comment on above: Performed By: #### T CHERI CP, CDP #### [facility] [address] [place] [address] Emb[employer] Software Test Engineer: Luis Carlos Del Castillo MD Creatinine [Mass/Vol] 0.63 mg/dL Low 0.70-1.20 [facility] [place] Comment on above: Performed By: #### Ileana ALONZO CP, CDP #### [facility] [address] [place] [address] [employer] Software Test Engineer: Luis Carlos Del Castillo MD GFR/1.73 sq M.predicted among non-blacks MDRD (S/P/Bld) [Vol rate/Area] mL/min/{1.73_m2} Normal >60 [facility] [place] Comment on above: Result Comment: These results [...] By: #### Ileana ALONZO CP, CDP #### [facility] [address] [place] [address] [place] [address] Emb[employer]ded Software Test Engineer: Luis Carlos Del Castillo MD Glucose [Mass/Vol] 113 mg/dL High 70-99 [facility] [place] Comment on above: Performed By: #### Ileana ALONZO CP, CDP #### [address] [place] [address] Emb[employer]ded Software Test Engineer: Luis Carlos Del Castillo MD Potassium [Moles/Vol] 3.9 mmol/L Normal 3.7-5.3 [facility] [place] Comment on above: Performed By: #### Ileana ALONZO CP, CDP #### [address] [place] [address] Embedded Software Test Engineer: Luis Carlos Del Castillo MD Protein [Mass/Vol] 7.0 g/dL Normal 6.4-8.3 [facility] [place] Comment on above: Performed By: #### Ileana ALONZO CP, CDP #### [facility] [address] [place] [address] Emb[employer]ded Software Test Engineer: Luis Carlos Del Castillo MD Sodium [Moles/Vol] 139 mmol/L Normal 135-144 [facility] [place] Comment on above: Performed By: #### T NATHAN ALONZO, CDP #### [facility] [address] [place] [address] Emb[employer]ded Software Test Engineer: Luis Carlos Del Castillo MD Urea nitrogen [Mass/Vol] 16 mg/dL Normal 8-23 [facility] [place] Comment on above: Performed By: #### T NATHAN ALONZO, CDP #### [facility] [address] [place] [address] Embedded Software Test Engineer: Luis Carlos Del Castillo MD Comprehensive Metabolic Pane [facility] 12-30-2022 Albumin [Mass/Vol] 3.9 g/dL 3.5 - 5.2 g/dL [facility] Albumin/Globulin [Mass ratio] 1.3 {ratio} 1.0 - 2.5 [facility] ALP [Catalytic activity/Vol] 102 U/L 40 - 129 U/L [facility] ALT [Catalytic activity/Vol] 19 U/L 5 - 41 U/L [facility] Anion gap [Moles/Vol] 10 mmol/L 9 - 17 mmol/L [facility] AST [Catalytic activity/Vol] 16 U/L NINF - 40 U/L [facility] Bilirubin [Mass/Vol] 0.8 mg/dL 0.3 - 1 .2 mg/dL [facility] Calcium [Mass/Vol] 9.5 mg/dL 8.6 - 10. 4 mg/dL [facility] Chloride [Moles/Vol] 105 mmol/L 98 - 10 7 mmol/L [facility] CO2 [Moles/Vol] 24 mmol/L 20 - 31 mmol/L [facility] Creatinine [Mass/Vol] 0.63 mg/dL Low 0.70 - 1.20 mg/dL [facility] GFR/1.73 sq M.predicted MDRD (S/P/Bld) [Vol rate/Area] - PINF [employer] Comment on above: These results are not [...] 113 mg/dL High 70 - 99 mg/dL [employer] Interpretation and review of laboratory results Abnormal [employer] Potassium [Moles/Vol] 3.9 mmol/L 3.7 - 5.3 mmol/L [employer] Protein [Mass/Vol] 7.0 g/dL 6.4 - 8.3 g/dL [employer] Sodium [Moles/Vol] 139 mmol/L 135 - 144 mmol/L [employer] Urea nitrogen [Mass/Vol] 16 mg/dL 8 - 23 mg/dL [employer] [facility] Urea nitrogen/Creatinine (Bld) [Mass ratio] 25 High 9 - 20 [employer] [facility] 12 Leadon 12-30-2022 Atrial Rate 51 BPM [employer] Work Phone: P [place] 39 degrees [employer] Work Phone: P-R Interval 146 ms [employer] Work Phone: Q-T Interval 424 ms [employer] Work Phone: QRS Duration 72 ms [employer] Work Phone: QTc Calculation (Bazett) 390 ms [employer] Work Phone: R [place] 56 degrees [employer] Work Phone: T [place] 73 degrees [employer] Work Phone: Ventricular Rate 51 BPM [facility] [employer] Work Phone: Poor data qualit y, interpretation may be adversely affected Sinus bradycardia Nonspecific ST and T wave abnormality Abnormal ECG Confirmed by Fany Mohr MD ([id number]) on 12/30/2022 8:21:48 AM [facility] Fany Mohr MD - 12/30/2022 Poor data quality, interpretation may be adversely affected Sinus bradycardia Nonspecific ST and T wave abnormality Abnormal ECG Confirmed by Fany Mohr MD ([id number]) on 12/30/2022 8:21:48 AM [facility] [employer] Work Phone: [facility] [employer] Phone: EKG Rhythm Stripon 3 [facility] Echocardiogram complete 2D w ith doppler with coloron 12-30-2022 Left ventricular Ejection fraction 55 [facility] [employer] Phone: LVEF MODALITY ECHO [facility] [employer] Phone: [facility] Transthoracic Echocardiography Report (TTE) Patient Name ALVA Date of Study 12/30/2022 NOEL Vaca Date of 1960 Gender Male Age 62 year(s) Race Room Number 0327 Height: 66 inch, 167.64 cm Corporate ID [id number] Weight: 160 pounds, 72.6 kg # Patient Acct [id number] BSA: 1.82 m^2 BMI: 25.82 kg/m^2 # MR # [id number] [employer] Tineo Interpreting Physician Fany Mohr Fellow Referring Nurse Cece Villalobos, Practitioner SREEDHAR Interpreting Referring Physician Fellow Type of Study TTE procedure:2D Echocardiogram, M-Mode, Doppler, Color Doppler. Procedure Date Date: 12/30/2022 Start: 02:20 PM Study Location: [facility] [place] Indications:Chest pain. History / Tech. Comments: Dx: [...] MD / Result, Unknown Provider - 12/30/2022 [facility] Transthoracic Echocardiography Report (TTE) Patient Name ALVA Date of Study 12/30/2022 NOEL Vaca Date of 1960 Gender Male Age 62 year(s) Race Room Number 0327 Height: 66 inch, 167.64 cm Corporate ID [id number] Weight: 160 pounds, 72.6 kg # Patient Acct [id number] BSA: 1.82 m^2 BMI: 25.82 kg/m^2 # MR # [id number] [employer]o Interpreting Physician Fany Mohr Fellow Referring Nurse Cece Villalobos, Practitioner SREEDHAR Interpreting Referring Physician Fellow Type of Study TTE procedure:2D Echocardiogram, M-Mode, Doppler, Color Doppler. Procedure Date Date: 12/30/2022 Start: 02:20 PM Study Location: [facility] [place] Indications:Chest pain. History / Tech. Comments: Dx: [...] Wall E' velocity:0.12 m/s Lateral Wall E/E':6.28 [facility] [employer] Work Phone: [facility] [employer] Work Phone: Resp Viral Panelon 3 Source: .NASOPHARYNGEAL SWAB Normal [facility] Comment on above: Performed By: #### L IPR #### [facility] [address] [place] [id number] [employer] Software Test Engineer: Marshall Paulino MD [id number] 12-30-2022 SARS-CoV-2 (COVID-19) RNA DAHLIA+probe Ql (Unsp spec) Not detected [facility] Comment on above: Result Comment: Rapid [...] management decisions. Fact sheet for Healthcare Providers: https://www.fda.gov/media/361480/download Fact sheet for Patients: https://www.fda.gov/media/506500/download Methodology: Isothermal Nucleic Acid Amplification Performed By: #### L IPR #### [facility] [place] [address] Embedded Software Test Engineer: Marshall Paulino MD Troponinon 12-30-2022 Troponin, High Sens 17 ng/L Normal 0-22 [facility] [place] Comment on above: Result Comment: High Sensitivity Troponin values cannot be compared with other Troponin methodologies. Performed By: #### L IPR #### [facility] [address] [place] [address] Embed[employer] Software Test Engineer: Marshall Paulino MD Troponin, High Sens 19 ng/L Normal 0-22 [facility] [place] Comment on above: Result Comment: High Sensitivity Troponin values cannot be compared with other Troponin methodologies. Performed By: #### T NATHAN ALONZO, CDP #### [facility] [address] [place] [address] [employer] Software Test Engineer: Luis Carlos Del Castillo MD Troponin I.cardiac DL <= 0.01 ng/mL [Mass/Vol] 17 ng/L 0 - 22 ng/L [facility] Comment on above: High Sensitivity Tro ponin values cannot be compared with other Troponin methodologies. [facility] Troponin I.cardiac DL <= 0.01 ng/mL [Mass/Vol] 19 ng/L 0 - 22 ng/L [facility] Comment on above: High Sensitivity Tro ponin values cannot be compared with other Troponin methodologies. [facility] XR CHEST PORTABLEon 12-31-19 XR CHEST PORTABLE [...] Sherrill Parmar MD 12/30/22 Final result Normal [facility] [place] There is a new left midlung opacity [...] pneumothorax. No acute osseous abnormality. MHPN RIS Sherrill Yepez MD - 12/30/2022 EXAMINATION: ONE XRAY VIEW [...] to resolution to exclude an underlying lesion. [employer] Phone: Radiology Study observation (narrative) [employer] Phone: XR CHEST PORTABLEOrdered By: Sherrill Parmar on 12-30-2022 [employer] Phone: XR LSPINE MIN 4 VIEWSon 12-04 [...] PEDRO PABLO CHAMBERS Date: 2022-12-18 13:59 Normal [facility] MRI LSPINE WO CONon 11-06-19 [...] PABLO CHAMBERS Date: 2022-11-06 15:08 Normal [facility] TESTOSTERONE, TOTALon 2021 Testosterone [Mass/Vol] 279 ng/dL Normal 264-916 [facility] Comment on above: Result Comment: Adul t male reference interval is based on a population of healthy nonobese males (BMI <30) between 19 and 39 years old. axel [place].al. JCEM 2017,102;0654-3393. PMID: [id number]. Performed By: #### H GBHCT #### [facility] [address] [place] [address] Dr. Raimundo Estrada CBC AUTO DIFFon 09-11-2022 BASO # 0.1 103/ul Normal 0.0-0.1 [facility] Comment on above: Performed By: #### H GBHCT #### [facility] [address] [address] [address] Raimundo Estrada Basophils/100 WBC (Bld) 0.6 % Normal 0.2-2.0 [facility] Comment on above: Performed By: #### H GBHCT #### [facility] [address] [address] [address] Raimundo Estrada EO # 0.2 103/ul Normal 0.0-0.7 [facility] Comment on above: Performed By: #### H GBHCT #### [facility] [address] [place] [address] Dr. Raimundo Estrada Eosinophils/100 WBC (Bld) 2.4 % Normal 0.9-7.0 [facility] Comment on above: Performed By: #### H GBHCT #### [facility] [address] [place] [address] Dr. Raimundo Estrada Erythrocyte distribution width (RBC) [Ratio] 14.1 % Normal 11.0-15.0 [facility] Comment on above: Performed By: #### H GBHCT #### [facility] [address] [place] [address] Dr. Raimundo Estrada Hematocrit (Bld) [Volume fraction] 40.2 % Critically low 42.0-54.0 [facility] Comment on above: Performed By: #### H GBHCT #### [facility] [address] [place] [address] Dr. Raimundo Estrada Hemoglobin (Bld) [Mass/Vol] 13.4 g/dL Critically low 14.0-18.0 [facility] Comment on above: Performed By: #### H GBHCT #### [facility] [address] [place] [address] Dr. Raimundo Estrada IG # 0.03 10e3/ul Normal 0.00-0.03 [facility] Comment on above: Performed By: #### H GBHCT #### [facility] [address] [address] [address] Raimundo Estrada IG % 0.4 % Normal 0.0-0.5 [facility] Comment on above: Performed By: #### H GBHCT #### [facility] [address] [address] [address] Raimundo Estrada LYMPH # 1.7 103/ul Normal 1.2-3.8 [facility] Comment on above: Performed By: #### H GBHCT #### [facility] [address] [address] [address] Raimundo Estrada Lymphocytes/100 WBC (Bld) 20.8 % Normal 20.5-60.0 [facility] Comment on above: Performed By: #### H GBHCT #### [facility] [address] [address] [address] Raimundo Estrada MANUAL DIFF REQ NO Normal [facility] Comment on above: Performed By: #### H GBHCT #### [facility] [address] [address] [address] Raimundo Estrada MCH (RBC) [Entitic mass] 31.8 pg Normal 25.9-34.0 [facility] Comment on above: Performed By: #### H GBHCT #### [facility] [address] [address] [address] Raimundo Estrada MCHC (RBC) [Mass/Vol] 33.3 g/dL Normal 29.9-35.2 [facility] Comment on above: Performed By: #### H GBHCT #### [facility] [address] [address] [address] Raimundo Estrada MCV (RBC) [Entitic vol] 95.3 fL Critically high 80.0-94.0 [facility] Comment on above: Performed By: #### H GBHCT #### [facility] [address] [address] [address] Raimundo Estrada MONO # 0.8 103/ul Normal 0.3-0.8 [facility] Comment on above: Performed By: #### H GBHCT #### [facility] [address] [address] [address] Raimundo Estrada Monocytes/100 WBC (Bld) 9.7 % Normal 1.7-12.0 [facility] Comment on above: Performed By: #### H GBHCT #### [facility] [address] [address] [address] Raimundo Estrada NEUT # 5.2 103/ul Normal 1.4-6.5 [facility] Comment on above: Performed By: #### H GBHCT #### [facility] [address] [address] [address] Raimundo Estrada Neutrophils/100 WBC (Bld) 66.1 % Normal 43.0-75.0 [facility] Comment on above: Performed By: #### H GBHCT #### [facility] [address] [place] [address] Dr. Raimundo Estrada Platelet mean volume (Bld) [Entitic vol] 10.1 fL Normal 9.5-13.5 [facility] Comment on above: Performed By: #### H GBHCT #### [facility] [address] [address] [address] Raimundo Estrada PLT 189 103/ul Normal 150-450 [facility] Comment on above: Performed By: #### H GBHCT #### [facility] [address] [place] [address] Dr. Raimundo Estrada RBC 4.22 106/ul Critically low 4.70-6.10 [facility] Comment on above: Performed By: #### H GBHCT #### [facility] [address] [place] [address] Dr. Raimundo Estrada WBC 7.9 103/ul Normal 4.0-11.0 [facility] Comment on above: Performed By: #### H GBHCT #### [facility] [address] [place] [address] Dr. Raimundo Estrada FREE T3on 09-11-2022 FREE T3 2.85 pg/mlL Normal 2.18-3.98 [facility] Comment on above: Performed By: #### T SH, FT3, LIVER, BMP, LIPID #### [facility] [address] [address] [address] Raimundo Estrada FREE T4on 09-11-2022 Free T4 [Mass/Vol] 0.85 ng/dL Normal 0.76-1.46 [facility] Comment on above: Performed By: #### H GBHCT #### [facility] [address] [address] [address] Raimundo Estrada GLYCOHEMOGLOBIN A1Con 2021 ADA RECOMMENDATION SEE BELOW Normal [facility] Comment on above: Result Comment: ADA RECOMMENDED LIMIT 4.0 - 6.0 ADA THERAPEUTIC TARGET < 7.0 ACTION SUGGESTED > 7.0 Performed By: #### H GBHCT #### [facility] [address] [place] [address] Dr. Raimundo Estrada Glucose [Mass/Vol] 111 mg/dL Normal [facility] Comment on above: Performed By: #### H GBHCT #### [facility] [address] [address] [address] Raimundo Estrada HbA1c (Bld) [Mass fraction] 5.5 % Normal 4.5-6.2 [facility] Comment on above: Performed By: #### H GBHCT #### [facility] [address] [place] [address] Dr. Raimundo Estrada LIPID PROFILEon 09-11-2022 CHOL-HDL RATIO NORM SEE BELOW Normal [facility] Comment on above: Result Comment: 3.3 - 4.4 LOW RISK 4.4 - 7.1 AVERAGE RISK 7.1 - 11.0 MODERATE RISK >11.0 HIGH RISK Performed By: #### T SH, FT3, LIVER, BMP, LIPID #### [facility] [address] [address] [address] Raimundo Estrada Cholesterol [Mass/Vol] 129 mg/dL Normal <=200 [facility] Comment on above: Performed By: #### T SH, FT3, LIVER, BMP, LIPID #### [facility] [address] [address] [address] Raimundo Estrada Cholesterol in HDL [Mass/Vol] 62 mg/dL Critically high 40-60 [facility] Comment on above: Performed By: #### T SH, FT3, LIVER, BMP, LIPID #### [facility] [address] [address] [address] Raimundo Estrada Cholesterol in LDL [Mass/Vol] 53.4 mg/dL Normal [facility] Comment on above: Performed By: #### T SH, FT3, LIVER, BMP, LIPID #### [facility] [address] [address] [address] Raimundo Estrada Cholesterol.total/Ch olesterol in HDL [Mass ratio] 2.1 {ratio} Normal [facility] Comment on above: Performed By: #### T SH, FT3, LIVER, BMP, LIPID #### [facility] [address] [address] [address] Raimundo Estrada HDL NORMAL > or = 60 mg/dl - LO W CARDIOVASCULAR RISK <40 mg/dl - HIGH CARDIOVASCULAR RISK Normal [facility] Comment on above: Performed By: #### T SH, FT3, LIVER, BMP, LIPID #### [facility] [address] [address] [address] Raimundo Estrada LDL CALC NORMAL SEE BELOW Normal [facility] Comment on above: Result Comment: <100 mg/dl OPTIMAL 100 - 129 mg/dl NEAR OR ABOVE OPTIMAL 130 - 159 mg/dl BORDERLINE HIGH 160 - 189 mg/dl HIGH >190 mg/dl VERY HIGH Performed By: #### T SH, FT3, LIVER, BMP, LIPID #### [facility] [address] [address] [address] Raimundo Estrada Triglyceride [Mass/Vol] 68 mg/dL Normal <=150 [facility] Comment on above: Performed By: #### T SH, FT3, LIVER, BMP, LIPID #### [facility] [address] [address] [address] Raimundo Estrada VLDL CALC 13.6 mg/dL Normal [facility] Comment on above: Performed By: #### T SH, FT3, LIVER, BMP, LIPID #### [facility] [address] [address] [address] Raimundo Estrada LIVER PROFILEon 09-11-2022 Albumin [Mass/Vol] 3.8 g/dL Normal 3.4-5.0 [facility] Comment on above: Performed By: #### T SH, FT3, LIVER, BMP, LIPID #### [facility] [address] [address] [address] Raimundo Estrada Albumin/Globulin [Mass ratio] 1.0 {ratio} Normal [facility] Comment on above: Performed By: #### T SH, FT3, LIVER, BMP, LIPID #### [facility] [address] [place] [address] Dr. Raimundo Estrada ALP [Catalytic activity/Vol] 103 U/L Normal 46-116 [facility] Comment on above: Performed By: #### T SH, FT3, LIVER, BMP, LIPID #### [facility] [address] [place] [address] Dr. Raimundo Estrada ALT [Catalytic activity/Vol] 46 U/L Normal 16-63 [facility] Comment on above: Performed By: #### T SH, FT3, LIVER, BMP, LIPID #### [facility] [address] [place] [address] Dr. Raimundo Estrada AST [Catalytic activity/Vol] 35 U/L Normal 15-37 [facility] Comment on above: Performed By: #### T SH, FT3, LIVER, BMP, LIPID #### [facility] [address] [place] [address] Dr. Raimundo Estrada BILI, CONJUGATED 0.2 mg/dL Normal 0.0-0.2 [facility] Comment on above: Performed By: #### T SH, FT3, LIVER, BMP, LIPID #### [facility] [address] [place] [address] Dr. Raimundo Estrada Bilirubin [Mass/Vol] 0.7 mg/dL Normal 0.2-1.0 [facility] Comment on above: Performed By: #### T SH, FT3, LIVER, BMP, LIPID #### [facility] [address] [place] [address] Dr. Raimundo Estrada Globulin (S) [Mass/Vol] 3.8 g/dL Normal [facility] Comment on above: Performed By: #### T SH, FT3, LIVER, BMP, LIPID #### [facility] [address] [place] [address] Dr. Raimundo Estrada Protein [Mass/Vol] 7.6 g/dL Normal 6.4-8.2 [facility] [place] Comment on above: Performed By: #### T SH, FT3, LIVER, BMP, LIPID #### [facility] [address] [place] [address] Dr. Raimundo Estrada PROF CHEM 8 (BAS METB)on Anion gap [Moles/Vol] 13.9 mmol/L Normal [facility] Comment on above: Performed By: #### T SH, FT3, LIVER, BMP, LIPID #### [facility] [address] [place] [address] Dr. Raimundo Estrada Calcium [Mass/Vol] 9.3 mg/dL Normal 8.5-10.1 [facility] [place] Comment on above: Performed By: #### T SH, FT3, LIVER, BMP, LIPID #### [facility] [address] [place] [address] Dr. Raimundo Estrada Chloride [Moles/Vol] 104 mmol/L Normal 98-107 [facility] Comment on above: Performed By: #### T SH, FT3, LIVER, BMP, LIPID #### [facility] [address] [place] [address] Dr. Raimundo Estrada CO2 [Moles/Vol] 28.6 mmol/L Normal 21.0-32.0 [facility] Comment on above: Performed By: #### T SH, FT3, LIVER, BMP, LIPID #### [facility] [address] [place] [address] Dr. Raimundo Estrada Creatinine [Mass/Vol] 0.77 mg/dL Normal 0.70-1.30 [facility] Comment on above: Performed By: #### T SH, FT3, LIVER, BMP, LIPID #### [facility] [address] [place] [address] Dr. Raimundo Estrada EGFR-AF PARAGUAYAN >60 Normal >=60 [facility] Comment on above: Performed By: #### T SH, FT3, LIVER, BMP, LIPID #### [facility] [address] [address] [address] Raimundo Estrada EGFR-NON AF PARAGUAYAN >60 Normal >=60 [facility] Comment on above: Performed By: #### T SH, FT3, LIVER, BMP, LIPID #### [facility] [address] [address] [address] Raimundo Estrada Glucose [Mass/Vol] 90 mg/dL Normal 74-106 [facility] Comment on above: Performed By: #### T SH, FT3, LIVER, BMP, LIPID #### [facility] [address] [place] [address] Dr. Raimundo Estrada Potassium [Moles/Vol] 4.5 mmol/L Normal 3.5-5.1 [facility] Comment on above: Performed By: #### T SH, FT3, LIVER, BMP, LIPID #### [facility] [address] [address] [address] Raimundo Estrada Sodium [Moles/Vol] 142 mmol/L Normal 136-145 [facility] [place] Comment on above: Performed By: #### T SH, FT3, LIVER, BMP, LIPID #### [facility] [address] [place] [address] Dr. Raimundo Estrada Urea nitrogen [Mass/Vol] 22.0 mg/dL Critically high 7.0-18.0 [facility] Comment on above: Performed By: #### T SH, FT3, LIVER, BMP, LIPID #### [facility] [address] [address] [address] Raimundo Estrada Urea nitrogen/Creatinine [Mass ratio] 28.6 mg/mg Normal [facility] Comment on above: Performed By: #### T SH, FT3, LIVER, BMP, LIPID #### [facility] [address] [place] [address] Dr. Raimundo Estrada TSHon 09-11-2022 TSH 1.375 uIU/mL Normal 0.358-3.74 0 [facility] Comment on above: Performed By: #### T SH, FT3, LIVER, BMP, LIPID #### [facility] [address] [place], [place] [address] Dr. Raimundo Estrada VITAMIN B12on 09-11-2022 Cobalamin (Vitamin B12) [Mass/Vol] 635.0 pg/mL Normal 193.0-986. 0 [facility] Comment on above: Performed By: #### L IPID #### [facility] [address] [place], [place] [address] Dr. 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 Normal [facility] Comment on above: Result [...] sigmoid polyp that was not retrieved. Normal [facility] Pathology Noteon 06-28-2022 Pathology Note [id number]#[id number]:127 Normal [facility] Outside Colonoscopyon 2021 Outside Colonoscopy [id number]#[id number]:127 Normal [facility] HEMOGLOBIN AND HEMATOCRITon 06-26-2022 Hematocrit (Bld) [Volume fraction] 44.2 % Normal 42.0-54.0 [facility] Comment on above: Performed By: #### H GBHCT #### [facility] [address] [place] [address] Dr. Raimundo Estrada Hemoglobin (Bld) [Mass/Vol] 15.0 g/dL Normal 14.0-18.0 [facility] Comment on above: Performed By: #### H GBHCT #### [facility] [address] [place] [address] Dr. Raimundo Estrada Lab Reportson 06-24-2022 Lab Reports [id number]#[id number]:127 Normal [facility] Covid-19 PCR (CVDTB)on 06-06 SARS-CoV-2 (COVID-19) RNA DAHLIA+probe Ql (Unsp spec) Not detected Normal NOT DETECTED [facility] Comment on above: Result Comment: This test is not yet approved or cleared by the [place] FDA. When there are no FDA-approved or cleared tests available, and other criteria are met, FDA can make tests available under an emergency access mechanism called an Emergency Use Authorization (EUA). The EUA for this test is supported by the [place] of Health and Human Service's (HHS's) declaration [...] SARS-CoV-2. Performed By: #### H GBHCT #### [facility] [address] [place] [address] Dr. Raimundo Estrada Consent for Procedure/Surger yon 06-03-2022 Consent for Procedure/Surgery [id number]#[id number]:127 [facility] Pre-Certification Formon Pre-Certification Form [id number]#1.00CD:127 [facility] Ambulatory Visit Summaryon 0 05-31-2022 Ambulatory Visit Summary NOEL ALVA :1960 Visit Date:05/31/2022 Ambulatory Visit Instructions Your Diagnosis Epigastric pain Hematemesis Your Care Team Attending Physician - EMILY DRUMMOND, Julian Davis Primary Care Physician - MAGDA DRUMMOND, ROMARIO Referring Physician - MAGDA DRUMMOND, ROMARIO This Is Your Medications List pantoprazole (Protonix 40 mg Tab-DR) Contact prescribing physician if questions or concerns acetaminophen-hydrocodone (Esopus 5/325 Tab) albuterol (albuterol HFA 90 mcg/inh [...] Epigastric pain Hematemesis Refills: 3 Pickup at [facility] 1622 Unchanged acetaminophen-hydrocodone (Esopus 5/ 325 Tab) 1 Tablets By Mouth [...] Pharmacy 1622: [address] [place], [place] [id number] [phone] Allergies No Known Allergies No Known Medication Allergies Problems Ongoing - Any problem that you are currently receiving treatment for. 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#1.00CD:127 Normal [facility] Physician Referralon 022 Physician Referral [id number]#[id number]:127 Normal [facility] CBC AUTO DIFFon 04-03-2022 BASO # 0.0 103/ul Normal 0.0-0.1 [facility] Comment on above: Performed By: #### C BC #### [facility] [address] [address] [address] Raimundo Estrada Basophils/100 WBC (Bld) 0.3 % Normal 0.2-2.0 [facility] Comment on above: Performed By: #### C BC #### [facility] [address] [place] [address] Dr. Raimundo Estrada EO # 0.1 103/ul Normal 0.0-0.7 [facility] Comment on above: Performed By: #### C BC #### [facility] [address] [place] [address] Dr. Raimundo Estrada Eosinophils/100 WBC (Bld) 0.7 % Critically low 0.9-7.0 [facility] Comment on above: Performed By: #### C BC #### [facility] [address] [place] [address] Dr. Raimundo Estrada Erythrocyte distribution width (RBC) [Ratio] 14.4 % Normal 11.0-15.0 [facility] Comment on above: Performed By: #### C BC #### [facility] [address] [place] [address] Dr. Raimundo Esrtada Hematocrit (Bld) [Volume fraction] 38.2 % Critically low 42.0-54.0 [facility] Comment on above: Performed By: #### C BC #### [facility] [address] [place] [address] Dr. Raimundo Estrada Hemoglobin (Bld) [Mass/Vol] 12.8 g/dL Critically low 14.0-18.0 [facility] Comment on above: Performed By: #### C BC #### [facility] [address] [address] [address] Raimundo Estrada IG # 0.04 10e3/ul Critically high 0.00-0.03 [facility] Comment on above: Performed By: #### C BC #### [facility] [address] [place] [address] Dr. Raiumndo Estrada IG % 0.3 % Normal 0.0-0.5 [facility] Comment on above: Performed By: #### C BC #### [facility] [address] [place] [address] Dr. Raimundo Estrada LYMPH # 1.1 103/ul Critically low 1.2-3.8 [facility] Comment on above: Performed By: #### C BC #### [facility] [address] [place] [address] Dr. Raimundo Estrada Lymphocytes/100 WBC (Bld) 9.4 % Critically low 20.5-60.0 [facility] Comment on above: Performed By: #### C BC #### [facility] [address] [place] [address] Dr. Raimundo Estrada MANUAL DIFF REQ NO Normal [facility] Comment on above: Performed By: #### C BC #### [facility] [address] [place] [address] Dr. Raimundo Estrada MCH (RBC) [Entitic mass] 30.7 pg Normal 25.9-34.0 [facility] Comment on above: Performed By: #### C BC #### [facility] [address] [place] [address] Dr. Raimundo Estrada MCHC (RBC) [Mass/Vol] 33.5 g/dL Normal 29.9-35.2 [facility] Comment on above: Performed By: #### C BC #### [facility] [address] [place] [address] Dr. Raimundo Estrada MCV (RBC) [Entitic vol] 91.6 fL Normal 80.0-94.0 [facility] Comment on above: Performed By: #### C BC #### [facility] [address] [address] [address] Raimundo Estrada MONO # 0.7 103/ul Normal 0.3-0.8 [facility] Comment on above: Performed By: #### C BC #### [facility] [address] [address] [address] Raimundo Estrada Monocytes/100 WBC (Bld) 5.8 % Normal 1.7-12.0 [facility] Comment on above: Performed By: #### C BC #### [facility] [address] [address] [address] Raimundo Estrada NEUT # 9.6 103/ul Critically high 1.4-6.5 [facility] Comment on above: Performed By: #### C BC #### [facility] [address] [place] [address] Dr. Raimundo Estrada Neutrophils/100 WBC (Bld) 83.5 % Critically high 43.0-75.0 [facility] Comment on above: Performed By: #### C BC #### [facility] [address] [place] [address] Dr. Raimundo Estrada Platelet mean volume (Bld) [Entitic vol] 9.3 fL Critically low 9.5-13.5 [facility] Comment on above: Performed By: #### C BC #### [facility] [address] [place] [address] Dr. Raimundo Estrada PLT 165 103/ul Normal 150-450 [facility] Comment on above: Performed By: #### C BC #### [facility] [address] [place] [address] Dr. Raimundo Estrada RBC 4.17 106/ul Critically low 4.70-6.10 [facility] Comment on above: Performed By: #### C BC #### [facility] [address] [place] [address] Dr. Raimundo Estrada WBC 11.6 103/ul Critically high 4.0-11.0 [facility] Comment on above: Performed By: #### C BC #### [facility] [address] [place] [address] Dr. Raimundo Estrada IRONon 04-03-2022 Iron [Mass/Vol] 63.0 ug/dL Critically low 65.0-175.0 [facility] [place] [facility] Comment on above: Performed By: #### I HUBERT #### [facility] [address] [place] [address] Dr. Raimundo Estrada PROTIMEon 04-03-2022 INR Coag (PPP) [Relative time] 0.98 {INR} Normal [facility] Comment on above: Performed By: #### H GBHCT #### [facility] [address] [place] [address] Dr. Raimundo Estrada INR GUIDELINES SEE BELOW Normal [facility] Comment on above: Result Comment: KEIRA RED INR: 2.0 - 3.0 CONDITIONS NOT LISTED BELOW 2.5 - 3.5 FOR PROSTHETIC HEART VALVE REPLACEMENT 2.5 - 3.5 RECURRENT THROMBOSIS Performed By: #### H GBHCT #### [facility] [address] [place] [address] Dr. Raimundo Estrada PT Coag (PPP) [Time] 10.6 s Normal 9.0-11.6 [facility] Comment on above: Performed By: #### H GBHCT #### [facility] [address] [place] [address] Dr. Raimundo Estrada PTTon 04-03-2022 aPTT Coag (Bld) [Time] 26.2 s Normal 22.3-36.2 [facility] Comment on above: Performed By: #### H GBHCT #### [facility] [address] [place] [address] Dr. Raimundo Estrada Sedimentation Rateon 022 Sed Rate 10 [facility] LIPID PROFILEon 03-12-2022 CHOL-HDL RATIO NORM SEE BELOW Normal [facility] Comment on above: Result Comment: 3.3 - 4.4 LOW RISK 4.4 - 7.1 AVERAGE RISK 7.1 - 11.0 MODERATE RISK >11.0 HIGH RISK Performed By: #### L IPID #### [facility] [address] [address] [address] Raimundo Estrada Cholesterol [Mass/Vol] 126 mg/dL Normal <=200 [facility] Comment on above: Performed By: #### L IPID #### [facility] [address] [address] [address] Raimundo Estrada Cholesterol in HDL [Mass/Vol] 68 mg/dL Critically high 40-60 [facility] Comment on above: Performed By: #### L IPID #### [facility] [address] [address] [address] Raimundo Estrada Cholesterol in LDL [Mass/Vol] 52.0 mg/dL Normal [facility] Comment on above: Performed By: #### L IPID #### [facility] [address] [address] [address] Raimundo Estrada Cholesterol.total/Ch olesterol in HDL [Mass ratio] 1.9 {ratio} Normal [facility] Comment on above: Performed By: #### L IPID #### [facility] [address] [place] [address] Dr. Raimundo Estrada HDL NORMAL > or = 60 mg/dl - LO W CARDIOVASCULAR RISK <40 mg/dl - HIGH CARDIOVASCULAR RISK Normal [facility] Comment on above: Performed By: #### L IPID #### [facility] [address] [place] [address] Dr. Raimundo Estrada LDL CALC NORMAL SEE BELOW Normal [facility] Comment on above: Result Comment: <100 mg/dl OPTIMAL 100 - 129 mg/dl NEAR OR ABOVE OPTIMAL 130 - 159 mg/dl BORDERLINE HIGH 160 - 189 mg/dl HIGH >190 mg/dl VERY HIGH Performed By: #### L IPID #### [facility] [address] [address] [address] Raimundo Estrada Triglyceride [Mass/Vol] 30 mg/dL Normal <=150 [facility] Comment on above: Performed By: #### L IPID #### [facility] [address] [address] [address] Raimundo Estrada VLDL CALC 6.0 mg/dL Normal [facility] Comment on above: Performed By: #### L IPID #### [facility] [address] [address] [address] Raimundo Estrada CBC Auto DifferentialOrdered By: Julian Dougherty on 03-09-2021 Absolute Eos # <0.03 [employer] [facility] Work Phone: Absolute Immature Granulocyte 0.04 [employer] Work Phone: Absolute Lymph # 1.49 [employer] [facility] Work Phone: Absolute Tyler # 1.27 High [employer] He[facility] Work Phone: Basophils (Bld) [#/Vol] 0.03 10*3/uL [employer] Work Phone: Basophils/100 WBC (Bld) 0 % 0 - 2 % [employer] Phone: Differential Type NOT REPORTED [employer] Phone: Eosinophils/100 WBC (Bld) 0 % Low 1 - 4 % [employer] Work Phone: Hematocrit (Bld) [Volume fraction] 41.8 % 40.7 - 50.3 % [employer] Phone: Hemoglobin.gastroint estinal spec 1 Ql (Stl) 14.3 g/dL 13.0 - 17.0 g/dL [employer] Phone: Immature granulocytes/100 WBC (Bld) 0 % 0 [employer] Work Phone: Interpretation and review of laboratory results Abnormal [employer] Phone: Lymphocytes/100 WBC (Bld) 14 % Low 24 - 43 % [employer] Phone: MCH (RBC) [Entitic mass] 30.6 pg 25.2 - 33.5 pg [employer] Phone: MCHC (RBC) [Mass/Vol] 34.2 g/dL 28.4 - 34.8 g/dL [employer] Phone: MCV (RBC) [Entitic vol] 89.5 fL 82.6 - 102.9 fL [employer] Phone: Monocytes/100 WBC (Bld) 12 % 3 - 12 % [employer] Phone: NRBC Automated 0.0 0.0 per 100 WBC [employer] Phone: Platelet distribution width (Bld) [Ratio] 13.2 % 11.8 - 14.4 % [employer] Phone: Platelet Estimate NOT REPORTED [employer] Phone: Platelet mean volume (Bld) [Entitic vol] 10.3 fL 8.1 - 13.5 fL [employer] Phone: Platelets (Bld) [#/Vol] 169 10*3/uL [employer] Phone: RBC (Bld) [#/Vol] 4.67 10*6/uL 4.21 - 5.77 m/uL [employer] Phone: RBC (Bld) [#/Vol] NOT REPORTED [employer] Phone: Segmented neutrophils/100 WBC (Bld) 74 % High 36 - 65 % [employer] Phone: Segs Absolute 7.59 [employer] Work Phone: WBC (Bld) [#/Vol] 10.4 10*3/uL [employer] Phone: WBC (Bld) [#/Vol] NOT REPORTED [employer] Phone: [employer] Phone: Sedimentation RateOrdered By : Julian Dougherty on 03-09-2021 Interpretation and review of laboratory results Abnormal [employer] Phone: Sed Rate 63 mm High 0 - 20 mm [employer] Phone: [employer] Phone: Uric AcidOrdered By: Julian Dougherty on 03-09-2021 Urate [Mass/Vol] 4.3 mg/dL 3.4 - 7.0 mg/dL [employer] Phone: [employer] Phone: XR WRIST RIGHT (MIN 3 VIEWS) Ordered By: Julian Dougherty on 03-09-2021 Arthritic changes an d mild soft tissue swelling without acute osseous abnormality. [employer] Phone: EXAMINATION: 3 XRAY VIEWS OF THE [...] No acute fracture, or dislocation is noted. [employer] Phone: Mauri, Mhpn Incoming R adiant Results From [employer] - 03/09/2021 10:56 AM EDT EXAMINATION: 3 [...] soft tissue swelling without acute osseous abnormality. [employer] Phone: [employer] Phone: VL DUP CAROTID BILATERALon 1 10-17-2019 [employer] [facility] Car[facility] Procedure Patient Name ALVA Date of Study 08/16/2020 NOEL Vaca Date of 1960 Gender Male Age 59 year(s) Race Room Number Corporate ID # [id number] Patient MR # [id number] [employer] KEVON Tobar Interpreting Physician Mike Centeno [...] left side. - Additional Measurements:ICAPSV/CCAPSV 0.76.ICAEDV/CCAEDV 1.49. [facility] [place], [place] Mauri, Mhpn Incoming C ardio Results From [employer] - 08/17/2020 9:08 AM [facility] Vascular Carotid Procedure Patient Name ALVA Date of Study 08/16/2020 NOEL Vaca Date of 1960 Gender Male Age 59 year(s) Race Room Number Corporate ID # [id number] Patient MR # [id number] [employer] KEVON Tobar Interpreting Physician Mike Centeno [...] left side. - Additional Measurements:ICAPSV/CCAPSV 0.76.ICAEDV/CCAEDV 1.49. [employer] [place], [employer] CBC auto differentialon 07-06 Basophils (Bld) [#/Vol] 0.04 10*3/uL [facility] [place] Basophils/100 WBC (Bld) 0 % 0 - 2 % [facility] [place], [place] Differential Type NOT REPORTED [facility], [place] Eosinophils (Bld) [#/Vol] 0.04 10*3/uL [place] Eosinophils/100 WBC (Bld) 0 % Low 1 - 4 % [place] Erythrocyte distribution width (RBC) [Ratio] 13.9 % 11.8 - 14.4 % [place] Hematocrit (Bld) [Volume fraction] 42.7 % 40.7 - 50.3 % [place] Hemoglobin (Bld) [Mass/Vol] 14.3 g/dL 13 - 17 g/dL [place] Immature granulocytes (Bld) [#/Vol] 0.03 10*3/uL [place] Immature granulocytes (Bld) [#/Vol] 0 % 0 [place] Interpretation and review of laboratory results Abnormal [place] Lymphocytes (Bld) [#/Vol] 1.95 10*3/uL [place] Lymphocytes/100 WBC (Bld) 20 % Low 24 - 43 % [place] MCH (RBC) [Entitic mass] 31.2 pg 25.2 - 33.5 pg [place] MCHC (RBC) [Mass/Vol] 33.5 g/dL 28.4 - 34.8 g/dL [place] MCV (RBC) [Entitic vol] 93.0 fL 82.6 - 102.9 fL [place] Monocytes (Bld) [#/Vol] 0.96 10*3/uL [place] Monocytes/100 WBC (Bld) 10 % 3 - 12 % [place] Platelet mean volume (Bld) [Entitic vol] 10.2 fL 8.1 - 13.5 fL [place] Platelets (Bld) [#/Vol] NOT REPORTED [place] Platelets (Bld) [#/Vol] 189 10*3/uL [place] RBC (Bld) [#/Vol] 4.59 10*6/uL 4.21 - 5.77 m/uL [place] RBC morphology finding Nom (Bld) NOT REPORTED [place] Segmented neutrophils/100 WBC (Bld) 70 % High 36 - 65 % [place] Segs Absolute 7.00 [facility] [facility] [place] WBC (Bld) [#/Vol] 10.0 10*3/uL [place] WBC (Bld) [#/Vol] 0.0 10*3/uL 0.0 per 100 WBC [place] WBC Morphology NOT REPORTED [facility] [place] ABDOMEN PELVIS WO CONTRAS T [...] to suggest a definite acute inflammatory process. [place], [place] EXAMINATION: CT OF Ileana MOORE ABDOMEN [...] and moderate canal stenosis. No pars defects. [facility]- [place], [place] Mauri, Mhpn Incoming R adiant Results From [employer] - 07/18/2020 9:12 AM EDT EXAMINATION: CT [...] to suggest a definite acute inflammatory process. [place], [place] Comprehensive Metabolic Pane pat 07-18-2020 Albumin [Mass/Vol] 4.3 g/dL 3.5 - 5.2 g/dL [place] Albumin/Globulin [Mass ratio] 1.5 {ratio} [place] ALP [Catalytic activity/Vol] 71 U/L 40 - 129 U/L [place] ALT [Catalytic activity/Vol] 26 U/L 5 - 41 U/L [place] Anion gap [Moles/Vol] 13 mmol/L 9 - 17 mmol/L [place] AST [Catalytic activity/Vol] 26 U/L <40 [place] Bilirubin Ql (U) 1.44 mg/dL High 0.3 - 1.2 mg/dL [place] Bun/Cre Ratio 28 High [place], [place] Calcium [Mass/Vol] 9.4 mg/dL 8.6 - 10. 4 mg/dL [place] Chloride [Moles/Vol] 103 mmol/L 98 - 10 7 mmol/L [place] CO2 [Moles/Vol] 23 mmol/L 20 - 31 mmol/L [place] Creatinine [Mass/Vol] 0.79 mg/dL 0.7 - 1.2 mg/dL [place] GFR >60 >60 mL/min [place] GFR Non- >60 >60 mL/min [place] Glucose [Mass/Vol] 93 mg/dL 70 - 99 mg/dL [place] Interpretation and review of laboratory results Abnormal [place] Potassium [Moles/Vol] 3.9 mmol/L 3.7 - 5.3 mmol/L [place] Protein [Mass/Vol] 7.1 g/dL 6.4 - 8.3 g/dL [place] Sodium [Moles/Vol] 139 mmol/L 135 - 144 mmol/L [place] Urea nitrogen [Mass/Vol] 22 mg/dL High 6 - 20 mg/dL [place] EKG 12 Leadon 07-18-2020 Atrial Rate 58 BPM [place] P [place] 45 degrees [place] P-R Interval 138 ms [place] Q-T Interval 478 ms [place] QRS Duration 74 ms [place] QTc Calculation (Bazett) 469 ms [place] R [place] 49 degrees [facility], [place] T [place] 129 degrees [place], [place] Ventricular Rate 58 BPM [place], [place] Sinus bradycardia T wave abnormality, consider lateral ischemia Prolonged QT Abnormal ECG When compared with ECG of 14-JUN-2019 10:26, Nonspecific T wave abnormality has replaced inverted T waves in Inferior leads T wave inversion less evident in Anterior leads Confirmed by JW KAY ([id number]) on 07/18/2020 11:37:03 AM [place], [place] Mauri, Mhpn Incoming E kg Results From [employer] - 07/18/2020 11:37 AM EDT Sinus bradycardia T wave abnormality, consider lateral ischemia Prolonged QT Abnormal ECG When compared with ECG of 14-JUN-2019 10:26, Nonspecific T wave abnormality has replaced inverted T waves in Inferior leads T wave inversion less evident in Anterior leads Confirmed by JW KAY ([id number]) on 07/18/2020 11:37:03 AM [place] Lipaseon 07-18-2020 Lipase [Catalytic activity/Vol] 30 U/L 13 - 60 U/L [place] Metabolic Panelon 07-18-2020 GFR/1.73 sq M predicted among non-blacks MDRD (S/P/Bld) [Vol rate/Area] [place], [place] Comment on above: Stage 1: Some [...] body mass. Additional eGFR calculator available at: http://www.Munch On Me/Meine Spielzeugkiste_crcl_2012.htm Microscopic Urinalysison Amorphous, UA NOT REPORTED None [place], [place] Bacteria, UA NOT REPORTED None [place], [place] Casts UA NOT REPORTED /LPF [place] Crystals, UA NOT REPORTED None /HPF [place] Epithelial Cells UA 0 TO 2 [place] Mucus, UA NOT REPORTED None [place] Other Observations UA NOT REPORTED NOT REQ. [place] RBC (U) [#/Vol] None [place], [place] Renal Epithelial, UA NOT REPORTED 0 /HPF [place] Trichomonas, UA NOT REPORTED None [facility] [place] WBC, UA 0 TO 2 [place] Yeast, UA NOT REPORTED None [place], [place] - [place] Troponinon 07-18-2020 Troponin I.cardiac [Mass/Vol] NOT REPORTED [place] Troponin T.cardiac [Mass/Vol] NOT REPORTED <0.03 ng/mL [place] Troponin, High Sensitivity 18 ng/L 0 - 22 ng/L [place] Comment on above: High Sensitivity Troponin values cannot be compared with other Troponin methodologies. Patients with high levels of Biotin oral intake (i.e >5mg/day) may have falsely decreased Troponin levels. Samples collected within 8 hours of biotin intake may require additional information for diagnosis. Troponin I.cardiac [Mass/Vol] NOT REPORTED [place] Troponin T.cardiac [Mass/Vol] NOT REPORTED <0.03 ng/mL [place] Troponin, High Sensitivity 21 ng/L 0 - 22 ng/L [place] Comment on above: High Sensitivity Troponin values cannot be compared with other Troponin methodologies. Patients with high levels of Biotin oral intake (i.e >5mg/day) may have falsely decreased Troponin levels. Samples collected within 8 hours of biotin intake may require additional information for diagnosis. Urinalysis Reflex to Culture on 07-18-2020 Bilirubin Urine Negative NEGATIVE [place], [place] Color, UA YELLOW YELLOW [place], [place] Glucose, Ur Negative NEGATIVE [place] Interpretation and review of laboratory results Abnormal [place] Ketones Ql (U) 1+ Abnormal NEGATIVE [place], [place] Leukocyte esterase Test strip Ql (U) Negative NEGATIVE [place] Nitrite, Urine Negative NEGATIVE [place] pH, UA 7.0 [place] Protein (U) [Mass/Vol] Negative NEGATIVE [place] Specific [place], UA 1.020 [place], [place] Turbidity UA CLEAR CLEAR [place] Urinalysis Comments NOT REPORTED [place] Urine Hgb Negative NEGATIVE [place] Urobilinogen, Urine Normal Normal [place] XR CHEST (SINGLE VIEW FRONTA L)on 07-18-2020 Mauri, Mhpn Incoming R adiant Results From [employer] - 07/18/2020 8:54 AM EDT EXAMINATION: ONE XRAY VIEW OF THE CHEST 07/18/2020 8:44 am COMPARISON: June 14, 2019 HISTORY: ORDERING SYSTEM PROVIDED HISTORY: epig pain TECHNOLOGIST PROVIDED HISTORY: epig pain FINDINGS: Is no evidence of focal infiltrate, effusion, pneumothorax. Heart mediastinum appear normal. Visualized bony thorax shows no acute abnormality. IMPRESSION: No acute findings of the chest, stable when compared to previous. [place] EXAMINATION: ONE XRA Y VIEW OF THE CHEST 07/18/2020 8:44 am COMPARISON: June 14, 2019 HISTORY: ORDERING SYSTEM PROVIDED HISTORY: epig pain TECHNOLOGIST PROVIDED HISTORY: epig pain FINDINGS: Is no evidence of focal infiltrate, effusion, pneumothorax. Heart mediastinum appear normal. Visualized bony thorax shows no acute abnormality. [place] No acute findings of the chest, stable when compared to previous. [place] CBC Auto Differentialon 09-0 Basophils (Bld) [#/Vol] 0.05 10*3/uL [place] Basophils/100 WBC (Bld) 1 % 0 - 2 % [place] Differential Type NOT REPORTED [place] Eosinophils (Bld) [#/Vol] 10*3/uL [place] Eosinophils/100 WBC (Bld) 0 % Low 1 - 4 % [place] Erythrocyte distribution width (RBC) [Ratio] 12.9 % 11.8 - 14.4 % [place] Hematocrit (Bld) [Volume fraction] 45.7 % 40.7 - 50.3 % [place] Hemoglobin (Bld) [Mass/Vol] 15.5 g/dL 13 - 17 g/dL [place] Immature granulocytes (Bld) [#/Vol] 10*3/uL [place] Immature granulocytes (Bld) [#/Vol] 0 % 0 [place] Interpretation and review of laboratory results Abnormal [place] Lymphocytes (Bld) [#/Vol] 1.83 10*3/uL [place] Lymphocytes/100 WBC (Bld) 19 % Low 24 - 43 % [place] MCH (RBC) [Entitic mass] 31.1 pg 25.2 - 33.5 pg [place] MCHC (RBC) [Mass/Vol] 33.9 g/dL 28.4 - 34.8 g/dL [place] MCV (RBC) [Entitic vol] 91.6 fL 82.6 - 102.9 fL [place] Monocytes (Bld) [#/Vol] 0.86 10*3/uL [place] Monocytes/100 WBC (Bld) 9 % 3 - 12 % [place] Platelet mean volume (Bld) [Entitic vol] 9.7 fL 8.1 - 13.5 fL [place] Platelets (Bld) [#/Vol] 195 10*3/uL [place] Platelets (Bld) [#/Vol] NOT REPORTED [place] RBC (Bld) [#/Vol] 4.99 10*6/uL 4.21 - 5.77 m/uL [place] RBC morphology finding Nom (Bld) NOT REPORTED [place] Segmented neutrophils/100 WBC (Bld) 71 % High 36 - 65 % [place] Segs Absolute 7.08 [place], [place] WBC (Bld) [#/Vol] 9.9 10*3/uL [place] WBC (Bld) [#/Vol] 0.0 10*3/uL 0.0 per 100 WBC [place] WBC Morphology NOT REPORTED [place] Comprehensive Metabolic Pane l w/ Reflex to MGon 06-14-2019 Albumin [Mass/Vol] 4.4 g/dL 3.5 - 5.2 g/dL [place] Albumin/Globulin [Mass ratio] 1.2 {ratio} [place] ALP [Catalytic activity/Vol] 77 U/L 40 - 129 U/L [place] ALT [Catalytic activity/Vol] 19 U/L 5 - 41 U/L [place] Anion gap [Moles/Vol] 15 mmol/L 9 - 17 mmol/L [place] AST [Catalytic activity/Vol] 22 U/L <40 [place] Bilirubin Ql (U) 0.61 mg/dL 0.3 - 1.2 mg/dL [place] Bun/Cre Ratio 23 High [place] Calcium [Mass/Vol] 10.0 mg/dL 8.6 - 10. 4 mg/dL [place] Chloride [Moles/Vol] 98 mmol/L 98 - 10 7 mmol/L [place] CO2 [Moles/Vol] 24 mmol/L 20 - 31 mmol/L [place] Creatinine [Mass/Vol] 0.82 mg/dL 0.7 - 1.2 mg/dL [place] GFR >60 >60 mL/min [place] GFR Non- >60 >60 mL/min [place] Glucose [Mass/Vol] 98 mg/dL 70 - 99 mg/dL [place] Interpretation and review of laboratory results Abnormal [place] Potassium [Moles/Vol] 4.0 mmol/L 3.7 - 5.3 mmol/L [place] Protein [Mass/Vol] 8.2 g/dL 6.4 - 8.3 g/dL [place], [place] Sodium [Moles/Vol] 137 mmol/L 135 - 144 mmol/L [place] Urea nitrogen [Mass/Vol] 19 mg/dL 6 - 20 mg/dL [place] D-Dimer, Quantitativeon D-Dimer, Quant 0.42 [place], [place] Comment on above: Elevated levels of [...] activity/Vol] 37 U/L 13 - 60 U/L [place] Metabolic Panelon 06-14-2019 GFR/1.73 sq M predicted among non-blacks MDRD (S/P/Bld) [Vol rate/Area] [place], [place] Comment on above: Average GFR for 50-5 9 years old: 93 mL/min/1.73sq m Chronic Kidney Disease: <60 mL/min/1.73sq m Kidney failure: <15 mL/min/1.73sq m eGFR calculated using average adult body mass. Additional eGFR calculator available at: http://www.Munch On Me/multiple_crcl_2012.htm Stage 1: Some kidney damage normal GFR Stage 2: Mild kidney damage GFR 60-89 Stage 3: Moderate kidney damage GFR 30-59 Stage 4: Severe kidney damage GFR 15-29 Stage 5: Severe kidney damage GFR <15 ESRD - chronic treatment by dialysis or transplant Troponinon 06-14-2019 Troponin I.cardiac [Mass/Vol] [place], [place] Comment on above: Reference Range: <0.03 [...] diagnosis. Troponin T.cardiac [Mass/Vol] ug/L <0.03 ng/mL [place] Comment on above: Troponin T results c annot be compared to Troponin-I results. Troponin, High Sensitivity NOT REPORTED 0 - 22 ng/L [place] Troponin I.cardiac [Mass/Vol] [place], [place] Comment on above: Reference Range: <0.03 [...] diagnosis. Troponin T.cardiac [Mass/Vol] ug/L <0.03 ng/mL [place] Comment on above: Troponin T results c annot be compared to Troponin-I results. Troponin, High Sensitivity NOT REPORTED 0 - 22 ng/L [place] APTTon 01-13-2018 aPTT 24.4 s Normal 20.5-30.5 [facility] Comment on above: Result Comment: [facility] [place], [place] [id number] ([phone] Performed By: #### C BC, PTT, TROPI, GLYHGB ####[address] [place] [address] Basic Metabolic Profon 01-13 (cont.) Normal [facility] Comment on above: Result Comment: Aver age GFR for 50-59 years old: 93 mL/min/1.73sq mChronic Kidney Disease: <60 mL/min/1.73sq mKidney failure: <15 mL/min/1.73sq meGFR calculated using average adult body mass. Additional eGFR calculator available at:http://www.[employer]Avidia/multiple_crcl_2012.htm[facility] [address] [place] [address] Performed By: #### C BC, PTT, TROPI, GLYHGB ####[address] [address] Anion gap 9 mmol/L Normal 9-17 [facility] Comment on above: Performed By: #### C BC, PTT, TROPI, GLYHGB ####[address] [address] Calcium 9.3 mg/dL Normal 8.6-10.4 [facility] Comment on above: Performed By: #### C BC, PTT, TROPI, GLYHGB ####[address] [address] Chloride 102 mmol/L Normal 98-107 [facility] Comment on above: Performed By: #### C BC, PTT, TROPI, GLYHGB ####[address] [address] CO2 24 mmol/L Normal 20-31 [facility] Comment on above: Performed By: #### C BC, PTT, TROPI, GLYHGB ####[address] [address] Creatinine 0.75 mg/dL Normal 0.70-1.20 [facility] Comment on above: Performed By: #### C BC, PTT, TROPI, GLYHGB ####[facility] [place] [address] eGFR (non-black) mL/min/{1.73_m2} Normal >60 [facility] Comment on above: Performed By: #### C BC, PTT, TROPI, GLYHGB ####[address] [address] Glucose mass conc 104 mg/dL High 70-99 [facility] Comment on above: Performed By: #### C BC, PTT, TROPI, GLYHGB ####[address] [address] Potassium molar conc 5.0 mmol/L Normal 3.7-5.3 [facility] Comment on above: Result Comment: TEST CONFIRMED Performed By: #### C BC, PTT, TROPI, GLYHGB ####[address] [address] Sodium 135 mmol/L Normal 135-144 [facility] Comment on above: Performed By: #### C BC, PTT, TROPI, GLYHGB ####[address] [address] Urea nitrogen 12 mg/dL Normal 6-20 [facility] Comment on above: Performed By: #### C BC, PTT, TROPI, GLYHGB ####[address] [address] BUN/CRE Ratio NOT REPORTED Normal 9-20 [facility] Comment on above: Performed By: #### C BC, PTT, TROPI, GLYHGB ####[address] [address] Staging: NOT REPORTED Normal [facility] Comment on above: Performed By: #### C BC, PTT, TROPI, GLYHGB ####[facility] [address] [place] [address], [place] [address] (cont.) Normal [facility] Comment on above: Result Comment: Aver age GFR for 50-59 years old: 93 mL/min/1.73sq mChronic Kidney Disease: <60 mL/min/1.73sq mKidney failure: <15 mL/min/1.73sq meGFR calculated using average adult body mass. Additional eGFR calculator available at:http://www.[employer]Avidia/multiple_crcl_2012.htm[facility] [address] [place] [address] Performed By: #### C BC, PTT, TROPI, GLYHGB ####[address] [address] Anion gap 11 mmol/L Normal 9-17 [facility] Comment on above: Performed By: #### C BC, PTT, TROPI, GLYHGB ####[address] [address] Calcium 8.6 mg/dL Normal 8.6-10.4 [facility] Comment on above: Performed By: #### C BC, PTT, TROPI, GLYHGB ####[address] [address] Chloride 100 mmol/L Normal 98-107 [facility] Comment on above: Performed By: #### C BC, PTT, TROPI, GLYHGB ####[place] [address] [place] [address] CO2 24 mmol/L Normal 20-31 [facility] Comment on above: Performed By: #### C BC, PTT, TROPI, GLYHGB ####[address] [address] Creatinine 0.64 mg/dL Low 0.70-1.20 [facility] Comment on above: Performed By: #### C BC, PTT, TROPI, GLYHGB ####[facility] [place] [address] eGFR (non-black) mL/min/{1.73_m2} Normal >60 Me [facility] Comment on above: Performed By: #### C BC, PTT, TROPI, GLYHGB ####[address] [address] Glucose mass conc 102 mg/dL High 70-99 [facility] Comment on above: Performed By: #### C BC, PTT, TROPI, GLYHGB ####[address] [address] Potassium molar conc 3.5 mmol/L Low 3.7-5.3 [facility] Comment on above: Performed By: #### C BC, PTT, TROPI, GLYHGB ####[address] [address] Sodium 135 mmol/L Normal 135-144 [facility] Comment on above: Performed By: #### C BC, PTT, TROPI, GLYHGB ####[address] [address] Urea nitrogen 12 mg/dL Normal 6-20 [facility] Comment on above: Performed By: #### C BC, PTT, TROPI, GLYHGB ####[address] [address] BUN/CRE Ratio NOT REPORTED Normal 9-20 [facility] Comment on above: Performed By: #### C BC, PTT, TROPI, GLYHGB ####[address] [address] Staging: NOT REPORTED Normal [facility] Comment on above: Performed By: #### C BC, PTT, TROPI, GLYHGB ####[address] [address] Discharge Summaryon 01-14-20 18 HIM IP Note OR Global Engineering Manager Normal [facility] Magnesiumon 01-13-2018 Magnesium 2.2 mg/dL Normal 1.6-2.6 [facility] Comment on above: Result Comment: [facility] [address] [place] [address] Performed By: #### C BC, PTT, TROPI, GLYHGB ####[facility] [address] [place] [address] Magnesium 2.1 mg/dL Normal 1.6-2.6 [facility] Comment on above: Result Comment: [facility] [address] [place] [address] Performed By: #### C BC, PTT, TROPI, GLYHGB ####[address] [address] Plan of Careon 01-13-2018 HIM IP Note OR Global Engineering Manager Normal [facility] Progress Noteon 01-13-2018 HIM IP Note OR Global Engineering Manager Normal [facility] HIM IP Note OR Global Engineering Manager Normal [facility] HIM IP Note OR Global Engineering Manager Normal [facility] APTTon 01-12-2018 aPTT 47.5 s High 20.5-30.5 [facility] Comment on above: Result Comment: [facility] [address] [place] [address] Performed By: #### P TT ####[address] [address] aPTT 48.3 s High 20.5-30.5 [facility] Comment on above: Result Comment: [facility] [address] [place] [address] Performed By: #### P LT, PTT ####[address] [address] aPTT 50.8 s High 20.5-30.5 [facility] Comment on above: Result Comment: [facility] [address] [place] [address] Performed By: #### P TT ####[facility] [address] [address] Platelet Counton 01-12-2018 Platelets 154 10*3/uL Normal 138-453 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 APTTon 01-11-2018 aPTT 38.0 s High 20.5-30.5 [facility] Comment on above: Result Comment: [facility] [address] [place] [address] Performed By: #### P TT ####[address] [address] aPTT 35.3 s High 20.5-30.5 [facility] Comment on above: Result Comment: [facility] [address] [place] [address] Performed By: #### P TT ####[address] [address] aPTT 30.5 s Normal 20.5-30.5 [facility] Comment on above: Result Comment: [facility] [address] [place] [address] Performed By: #### P TT ####[address] [address] CBCon 01-11-2018 Erythrocyte distribution width Auto Ratio (RBC) 14.0 % Normal 11.8-14.4 [facility] Comment on above: Performed By: #### C BC, CP, LIPR, MG ####[address] [address] Erythrocytes (RBC) 0.0 per 100 WBC Normal 0.0 M [facility] Comment on above: Result Comment: [address] [address] Performed By: #### C BC, CP, LIPR, MG ####[address] [address] Erythrocytes (RBC) 4.36 10*6/uL Normal 4.21-5.77 [facility] Comment on above: Performed By: #### C BC, CP, LIPR, MG ####[address] [address] Hematocrit (HCT) 40.6 % Low 40.7-50.3 [facility] Comment on above: Performed By: #### C BC, CP, LIPR, MG ####[address] [address] Hemoglobin mass conc (Bld) 13.3 g/dL Normal 13.0-17.0 [facility] Comment on above: Performed By: #### C BC, CP, LIPR, MG ####[address] [address] MCH 30.5 pg Normal 25.2-33.5 [facility] Comment on above: Performed By: #### C BC, CP, LIPR, MG ####[address] [address] MCHC mass conc (RBC) 32.8 g/dL Normal 28.4-34.8 [facility] Comment on above: Performed By: #### C BC, CP, LIPR, MG ####[address] [place] [address] MCV 93.1 fL Normal 82.6-102.9 [facility] Comment on above: Performed By: #### C BC, CP, LIPR, MG ####[facility] [place] [address] Platelet mean volume (PMV) 10.1 fL Normal 8.1-13.5 [facility] Comment on above: Performed By: #### C BC, CP, LIPR, MG ####[place] [place] [address] Platelets 153 10*3/uL Normal 138-453 [facility] Comment on above: Performed By: #### C BC, CP, LIPR, MG ####[address] [address] WBC (Leukocytes) 9.5 10*3/uL Normal 3.5-11.3 [facility] Comment on above: Performed By: #### C BC, CP, LIPR, MG ####[address] [place] [address] Comp Metabolic Profon 2017 (cont.) Normal [facility] Comment on above: Result Comment: Aver age GFR for 50-59 years old: 93 mL/min/1.73sq mChronic Kidney Disease: <60 mL/min/1.73sq mKidney failure: <15 mL/min/1.73sq meGFR calculated using average adult body mass. Additional eGFR calculator available at:http://www.[employer]com/multiple_crcl_2012.htm[facility] [address] [place] [address] Performed By: #### C BC, CP, LIPR, MG ####[facility] [place] [address] Alanine aminotransferase (ALT) 17 U/L Normal 5-41 [facility] Comment on above: Performed By: #### C BC, CP, LIPR, MG ####[facility] [address] [place] [address] Albumin 3.6 g/dL Normal 3.5-5.2 [facility] Comment on above: Performed By: #### C BC, CP, LIPR, MG ####[address] [address] Albumin/Globulin Ratio 1.3 {ratio} Normal 1.0-2.5 [facility] Comment on above: Performed By: #### C BC, CP, LIPR, MG ####[facility] [address] [place] [address] Alkaline Phos 76 U/L Normal 40-129 [facility] Comment on above: Performed By: #### C BC, CP, LIPR, MG ####[facility] [address] [place] [address] Anion gap 14 mmol/L Normal 9-17 [facility] Comment on above: Performed By: #### C BC, CP, LIPR, MG ####[facility] [address] [place] [address] Aspartate aminotransferase (AST) 15 U/L Normal <40 [facility] Comment on above: Performed By: #### C BC, CP, LIPR, MG ####[facility] [address] [place] [address] Bilirubin Ql (U) 1.13 mg/dL Normal 0.3-1.2 [facility] Comment on above: Performed By: #### C BC, CP, LIPR, MG ####[facility] [address] [place] [address] Calcium 8.4 mg/dL Low 8.6-10.4 [facility] Comment on above: Performed By: #### C BC, CP, LIPR, MG ####[facility] [address] [place] [address] Chloride 97 mmol/L Low 98-107 [facility] Comment on above: Performed By: #### C BC, CP, LIPR, MG ####[facility] [place] [address] CO2 23 mmol/L Normal 20-31 [facility] Comment on above: Performed By: #### C BC, CP, LIPR, MG ####[facility] [address] [place] [address] Creatinine 0.63 mg/dL Low 0.70-1.20 [facility] Comment on above: Performed By: #### C BC, CP, LIPR, MG ####[address] [address] eGFR (non-black) mL/min/{1.73_m2} Normal >60 [facility] Comment on above: Performed By: #### C BC, CP, LIPR, MG ####[facility] [address] [place] [address] Glucose mass conc 107 mg/dL High 70-99 [facility] Comment on above: Performed By: #### C BC, CP, LIPR, MG ####[facility] [address] [place] [address] Potassium molar conc 3.6 mmol/L Low 3.7-5.3 [facility] Comment on above: Performed By: #### C BC, CP, LIPR, MG ####[facility] [address] [place] [address] Protein 6.4 g/dL Normal 6.4-8.3 [facility] Comment on above: Performed By: #### C BC, CP, LIPR, MG ####[facility] [address] [place] [address] Sodium 134 mmol/L Low 135-144 [facility] Comment on above: Performed By: #### C BC, CP, LIPR, MG ####[facility] [address] [place] [address] Urea nitrogen 19 mg/dL Normal [facility] [facility] Comment on above: Performed By: #### C BC, CP, LIPR, MG ####[facility] [address] [place] [address] BUN/CRE Ratio NOT REPORTED Normal - [facility] Comment on above: Performed By: #### C BC, CP, LIPR, MG ####[facility] [address] [place] [address] Staging: NOT REPORTED Normal [facility] Comment on above: Performed By: #### C BC, CP, LIPR, MG ####[facility] [address] [place] [address] Hemoglobin A1Con 01-11-2018 Glucose mass conc 114 mg/dL Normal [facility] Comment on above: Result Comment: The ADA and AACC recommend providing the estimated average glucose result to permit better patient understanding of their HBA1c result.[address] [address] Performed By: #### C BC, PTT, TROPI, GLYHGB ####[facility] [address] [place] [address] Hemoglobin A1c/Hemoglobin.total mass fraction (Bld) 5.6 % Normal 4.0-6.0 [facility] Comment on above: Performed By: #### C BC, PTT, TROPI, GLYHGB ####[facility] [address] [place] [address] Lipid Profileon 01-11-2018 Cholesterol 123 mg/dL Normal <200 [facility] Comment on above: Result Comment: Chol esterol Guidelines: <200 Desirable 200-240 Borderline >240 Undesirable Performed By: #### C BC, CP, LIPR, MG ####[facility] [address] [place] [address] Cholesterol to HDL Ratio 2.0 {ratio} Normal <5 [facility] Comment on above: Performed By: #### C BC, CP, LIPR, MG ####[facility] [address] [place] [address] HDL Cholesterol 63 mg/dL Normal >40 [facility] Comment on above: Result Comment: HDL Guidelines: <40 Undesirable 40-59 Borderline >59 Desirable Performed By: #### C BC, CP, LIPR, MG ####[address] [address] LDL Cholesterol 38 mg/dL Normal 0-130 [facility] Comment on above: Result Comment: LDL Guidelines: <100 Desirable 100-129 Near to/above Desirable 130-159 Borderline >159 UndesirableDirect (measured) LDL and calculated LDL are not interchangeable tests. Performed By: #### C BC, CP, LIPR, MG ####[facility] [address] [place] [address] Triglyceride 111 mg/dL Normal <150 [facility] Comment on above: Result Comment: Trig lyceride Guidelines: <150 Desirable 150- 199 Borderline 200-499 High >499 Very high Based on AHA Guidelines for fasting triglyceride, July 2012.[facility] [address] [place] [address] Performed By: #### C BC, CP, LIPR, MG ####[facility] [address] [place] [address] Cholesterol in VLDL mass conc NOT REPORTED Normal 1-30 [facility] Comment on above: Performed By: #### C BC, CP, LIPR, MG ####[address] [place] [address] Magnesiumon 01-11-2018 Magnesium 2.1 mg/dL Normal 1.6-2.6 [facility] Comment on above: Result Comment: [facility] [employer] [address] [place] [address] Performed By: #### C BC, CP, LIPR, MG ####[facility] [address] [place] [address] Plan of Careon 01-11-2018 HIM IP Note OR Global Engineering Manager Normal [facility] HIM IP Note OR Global Engineering Manager Normal [facility] Progress Noteon 01-11-2018 HIM IP Note OR Global Engineering Manager Normal [facility] Troponinon 01-11-2018 Troponin [...] biotin intake may require additional information for diagnosis.HALKAR [address] [place] [address] Performed By: #### T ROPI ####[address] [address] Troponin T.cardiac mass conc ug/L Normal <0.03 [facility] Comment on above: Result Comment: Trop onin T results cannot be compared to Troponin-I results. Performed By: #### T ROPI ####[address] [address] APTTon 01-10-2018 aPTT 23.8 s Normal 20.5-30.5 [facility] Comment on above: Result Comment: [facility] [employer] [address] [place] [address] Performed By: #### C BC, PTT, TROPI, GLYHGB ####[address] [address] CBCon 01-10-2018 Erythrocyte distribution width Auto Ratio (RBC) 14.2 % Normal 11.8-14.4 [facility] Comment on above: Performed By: #### C BC, PTT, TROPI, GLYHGB ####[address] [address] Erythrocytes (RBC) 4.47 10*6/uL Normal 4.21-5.77 [facility] Comment on above: Performed By: #### C BC, PTT, TROPI, GLYHGB ####[address] [address] Erythrocytes (RBC) 0.0 per 100 WBC Normal 0.0 M [facility] Comment on above: Result Comment: [place] [place] [address] Performed By: #### C BC, PTT, TROPI, GLYHGB ####[facility] [place] [address] Hematocrit (HCT) 41.3 % Normal 40.7-50.3 [facility] Comment on above: Performed By: #### C BC, PTT, TROPI, GLYHGB ####[address] [address] Hemoglobin mass conc (Bld) 13.5 g/dL Normal 13.0-17.0 [facility] Comment on above: Performed By: #### C BC, PTT, TROPI, GLYHGB ####[address] [address] MCH 30.2 pg Normal 25.2-33.5 [facility] Comment on above: Performed By: #### C BC, PTT, TROPI, GLYHGB ####[address] [address] MCHC mass conc (RBC) 32.7 g/dL Normal 28.4-34.8 [facility] Comment on above: Performed By: #### C BC, PTT, TROPI, GLYHGB ####[facility] [address] [place] [address] MCV 92.4 fL Normal 82.6-102.9 [facility] Comment on above: Performed By: #### C BC, PTT, TROPI, GLYHGB ####[facility] [address] [place] [address] Platelet mean volume (PMV) 10.1 fL Normal 8.1-13.5 [facility] Comment on above: Performed By: #### C BC, PTT, TROPI, GLYHGB ####[facility] [place] [address] Platelets 160 10*3/uL Normal 138-453 [facility] Comment on above: Performed By: #### C BC, PTT, TROPI, GLYHGB ####[facility] [place] [address] WBC (Leukocytes) 6.8 10*3/uL Normal 3.5-11.3 [facility] Comment on above: Performed By: #### C BC, PTT, TROPI, GLYHGB ####[facility] [address] [place] [address] History and Physicalon 01-10 HIM IP Note OR Global Engineering Manager Normal [facility] Plan of Careon 01-10-2018 HIM IP Note OR Global Engineering Manager Normal [facility] Progress Noteon 01-10-2018 HIM IP Note OR Global Engineering Manager Normal [facility] Troponinon 01-10-2018 Troponin [...] biotin intake may require additional information for diagnosis.HALKAR [address] [place] [address] [phone] Performed By: #### C BC, PTT, TROPI, GLYHGB ####[address] [place] [address] Troponin T.cardiac mass conc ug/L Normal <0.03 [facility] Comment on above: Result Comment: Trop onin T results cannot be compared to Troponin-I results. Performed By: #### C BC, PTT, TROPI, GLYHGB ####[address] [place], [place] [id number] Vital Signs Date Time Vital Sign Value Performing Clinician Faci lity 2023 06:08-0500 SaO2% (BldA) [Mass fraction] 99 % Nadia Fitzpatrick MD Work Phone: [facility] [facility] [employer] 2023 05:49-0500 Body temperature 100.09 [degF] Nadia Fitzpatrick MD Work Phone: [facility] [facility] [employer] 2023 05:49-0500 Diastolic blood pressure 52 mm[Hg] Nadia Fitzpatrick MD Work Phone: [facility] [employer] 2023 05:49-0500 Heart rate 89 /min Nadia Fitzpatrick MD Work Phone: [facility] [employer] 2023 05:49-0500 Respiratory rate 18 /min Nadia Fitzpatrick MD Work Phone: [facility] [facility] [employer] 2023 05:49-0500 Systolic blood pressure 151 mm[Hg] Nadia Fitzpatrick MD Work Phone: [facility] [employer] 09-18-2023 13:40-0500 Diastolic blood pressure 68 mm[Hg] Shaheen Chappell MD Work Phone: [facility] 09-18-2023 13:40-0500 Heart rate 68 /min Shaheen Chappell MD Work Phone: [facility] 09-18-2023 13:40-0500 SaO2% (BldA) [Mass fraction] 97 % Shaheen Chappell MD Work Phone: [facility] 09-18-2023 13:40-0500 Systolic blood pressure 101 mm[Hg] Shaheen Chappell MD Work Phone: [facility] 09-18-2023 13:10-0500 Respiratory rate 16 /min Shaheen Chappell MD Work Phone: [facility] 09-18-2023 13:00-0500 Body temperature 97 [degF] Shaheen Chappell MD Work Phone: [facility] 09-18-2023 08:35-0500 Body height 167.6 cm Shaheen Chappell MD Work Phone: [facility] 09-18-2023 08:35-0500 Body mass index (BMI) [Ratio] 27.44 kg/m2 Shaheen Chappell MD Work Phone: [facility] 09-18-2023 08:35-0500 Body weight 77.11 kg Shaheen Chappell MD Work Phone: [facility] 08-14-2023 14:38-0500 Body height 167.6 cm Nikhil oMhr MD Work Phone: [facility] 08-14-2023 14:38-0500 Body mass index (BMI) [Ratio] 26.87 kg/m2 Nikhil Mhor MD Work Phone: [facility] 08-14-2023 14:38-0500 Body weight 75.52 kg Nikhil Mohr MD Work Phone: [facility] 08-14-2023 14:38-0500 Diastolic blood pressure 69 mm[Hg] Nikhil Mohr MD Work Phone: [facility] 08-14-2023 14:38-0500 Heart rate 72 /min Nikhil Mohr MD Work Phone: [facility] 08-14-2023 14:38-0500 SaO2% (BldA) [Mass fraction] 98 % Nikhil Mohr MD Work Phone: [facility] 08-14-2023 14:38-0500 Systolic blood pressure 102 mm[Hg] Nikhil Mohr MD Work Phone: [facility] 07-16-2023 13:41-0400 Body height 167.6 cm Jennie Hernandez MD Work Phone: [facility] 07-16-2023 13:41-0400 Body mass index (BMI) [Ratio] 27.11 kg/m2 Jennie Hernandez MD Work Phone: [facility] 07-16-2023 13:41-0400 Body weight 76.2 kg Jennie Hernandez MD Work Phone: [facility] 07-04-2023 09:34-0400 Body height 167.6 cm Jennie Hernandez MD Work Phone: [facility] 07-04-2023 09:34-0400 Body mass index (BMI) [Ratio] 27.12 kg/m2 Jennie Hernandez MD Work Phone: [facility] 07-04-2023 09:34-0400 Body weight 76.2 kg Jennie Hernandez MD Work Phone: [facility] 06-10-2023 10:18-0400 Body height 167.6 cm Jennie Hernandez MD Work Phone: [facility] 06-10-2023 10:18-0400 Body mass index (BMI) [Ratio] 27.12 kg/m2 Jennie Hernandez MD Work Phone: [facility] 06-10-2023 10:18-0400 Body weight 76.2 kg Jennie Hernandez MD Work Phone: [facility] 05-19-2023 09:07-0400 Body height 167.6 cm Jennie Hernandez MD Work Phone: [facility] 05-19-2023 09:07-0400 Body mass index (BMI) [Ratio] 27.12 kg/m2 Jennie Hernandez MD Work Phone: [facility] 05-19-2023 09:07-0400 Body weight 76.2 kg Jennie Hernandez MD Work Phone: [facility] 04-18-2023 12:33-0400 Body height 167.6 cm Jennie Hernandez MD Work Phone: [facility] 04-18-2023 12:33-0400 Body mass index (BMI) [Ratio] 26.63 kg/m2 Jennie Hernandez MD Work Phone: [facility] 04-18-2023 12:33-0400 Body weight 74.84 kg Jennie Hernandez MD Work Phone: [facility] 02-25-2023 08:48-0400 Body height 167.6 cm Jennie Hernandez MD Work Phone: [facility] 02-25-2023 08:48-0400 Body mass index (BMI) [Ratio] 26.63 kg/m2 Jennie Hernandez MD Work Phone: [facility] 02-25-2023 08:48-0400 Body weight 74.84 kg Jennie Hernandez MD Work Phone: [facility] 12-31-2022 13:46-0400 Body temperature 97.3 [degF] Rosa Garg DO Work Phone: [facility] 12-31-2022 13:46-0400 Diastolic blood pressure 71 mm[Hg] Rosa Garg DO Work Phone: [facility] 12-31-2022 13:46-0400 Heart rate 72 /min Rosa Garg DO Work Phone: [facility] 12-31-2022 13:46-0400 Respiratory rate 16 /min Rosa [facility] DO [facility] 12-31-2022 13:46-0400 SaO2% (BldA) [Mass fraction] 92 % Rosa Garg DO Work Phone: [facility] [employer] 12-31-2022 13:46-0400 Systolic blood pressure 102 mm[Hg] Rosa Garg DO Work Phone: [facility] [employer] 12-31-2022 02:40-0400 Body mass index (BMI) [Ratio] 25.34 kg/m2 Rosa [facility]arg DO [facility] 12-31-2022 02:40-0400 Body weight 71.2 kg Rosa [facility]arg DO [facility] 12-30-2022 12:46-0400 Body height 167.6 cm Rosa Garg DO [facility] 05-31-2022 14:26-0400 Blood Pressure Location Julian DIAZ [facility] 05-31-2022 14:26-0400 Diastolic blood pressure 60 mm[Hg] Julian DIAZ [facility] 05-31-2022 14:26-0400 Heart rate 66 /min Julian DIAZ [facility] 05-31-2022 14:26-0400 Respiratory rate 16 /min Julian DIAZ [facility] 05-31-2022 14:26-0400 Systolic blood pressure 108 mm[Hg] Julian DIAZ [facility] 03-09-2021 12:45-0400 Respiratory rate 16 /min [facility] Work Phone: 03-09-2021 10:28-0400 Body height 167.6 cm Julian Dougherty MD [employer] Phone: 03-09-2021 10:28-0400 Body mass index (BMI) [Ratio] 25.5 kg/m2 Julian Dougherty MD [employer] Phone: 03-09-2021 10:28-0400 Body temperature 98.49 [degF] Julian Dougherty MD [employer] Phone: 03-09-2021 10:28-0400 Body weight 71.67 kg Julian Dougherty MD [employer] Phone: 03-09-2021 10:28-0400 Heart rate 79 /min Julian Dougherty MD [employer] Phone: 03-09-2021 10:28-0400 SaO2% (BldA) [Mass fraction] 97 % Julian Dougherty MD [employer] Phone: 07-18-2020 09:15-0400 Pulse Oximetry 97 % [facility] [place] 07-18-2020 08:30-0400 BP Diastolic 96 mm[Hg] [facility] 07-18-2020 08:30-0400 BP Systolic 135 mm[Hg] [facility] 07-18-2020 08:18-0400 Body Temperature 98.01 [degF] [facility], [place] 07-18-2020 08:18-0400 Pulse (Heart Rate) 84 /min [facility], [place] 07-18-2020 08:18-0400 Respiratory Rate 16 /min [facility], [place] 09-12-2019 02:36-0500 BP Diastolic 95 mm[Hg] [facility] , [place] 09-12-2019 02:36-0500 BP Systolic 138 mm[Hg] [facility] , [place] 09-12-2019 01:27-0500 Body Temperature 97.3 [degF] [facility] [place] 09-12-2019 01:27-0500 Pulse (Heart Rate) 86 /min [facility] [place] 09-12-2019 01:27-0500 Pulse Oximetry 97 % Justice Dewitt [place], [place] 09-12-2019 01:27-0500 Respiratory Rate 18 /min [facility] [place] 06-14-2019 12:44-0400 BP Diastolic 89 mm[Hg] [facility] [place] 06-14-2019 12:44-0400 BP Systolic 158 mm[Hg] Pablo Portillo [facility] , [place] 06-14-2019 12:44-0400 Pulse (Heart Rate) 68 /min [place] 06-14-2019 12:44-0400 Pulse Oximetry 95 % Pablo Portillo [facility] , [place] 06-14-2019 12:44-0400 Respiratory Rate 12 /min Pablo Portillo [facility], [place] 06-14-2019 10:15-0400 BMI (Body Mass Index) 24.53 kg/m2 Pablo Portillo [place], [place] 06-14-2019 10:15-0400 Body Temperature 98.01 [degF] Pablo Portillo [facility], [place] 06-14-2019 10:15-0400 Body weight 68.95 kg Pablo Portillo [place], [place] Encounters Encounter Date Encounter Type Care Provider Facility Start: 03-15-2024 End: 03-15-2024 ambulatory Mo Gongora MD Facility:[facility] Start: 02-11-2024 End: 02-11-2024 ambulatory [facility] Start: 11-24-2023 End: 11-24-2023 ambulatory ROMARIO MAN Not Available Start: 2023 End: 2023 Emergency department patient visit NADIA FITZPATRICK [facility] Start: 2023 End: 2023 Emergency department patient visit Nadia Fitzpatrick MD Work Phone: [facility] ED Comment on above: Viral illness (Prima ry Dx) Start: 09-18-2023 End: 09-18-2023 ambulatory [facility] Start: 09-18-2023 End: 09-18-2023 Subsequent hospital visit by physician Shaheen Chappell MD Work Phone: [facility] Comment on above: Sacroiliitis Start: 09-09-2023 ambulatory [facility] Start: 09-09-2023 Encounter for other preprocedural examination [facility] Start: 08-27-2023 [facility] Start: 08-14-2023 End: 08-14-2023 Office outpatient new 45 minutes Nikhil Mohr MD Work Phone: [facility] Neurology Comment on above: 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); Hyperreflexia Start: 08-13-2023 End: 08-13-2023 ambulatory [facility] Start: 08-13-2023 End: 08-13-2023 Encounter for other preprocedural examination [facility] Start: 07-16-2023 ambulatory JENNIE HERNANDEZ [facility] Start: 07-16-2023 End: 07-16-2023 Subsequent hospital visit by physician Jennie Hernandez MD Work Phone: [facility] Procedure Images Comment on above: Arrived Start: 07-16-2023 End: 07-16-2023 Patient encounter procedure Jennie Hernandez MD Work Phone: [facility] Comment on above: 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); Pain of both sacroiliac joints Start: 07-04-2023 community hospital JENNIE HERNANDEZ [facility] Start: 07-04-2023 End: 07-04-2023 Office outpatient visit 15 minutes Jennie Hernandez MD Work Phone: [facility] Comment on above: 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); Pain of both sacroiliac joints; Polyneuropathy Start: 06-16-2023 End: 06-16-2023 ambulatory Mo Gongora MD Facility:[facility] Start: 06-10-2023 ambulatory JENNIE HERNANDEZ [facility] Start: 06-10-2023 End: 06-10-2023 Patient encounter procedure Jennie Hernandez MD Work Phone: [facility] Comment on above: Osteoarthritis of ri ght sacroiliac joint (Primary Dx); Pain of right sacroiliac joint; Polyneuropathy; Lower extremity numbness; Osteoarthritis of left sacroiliac joint; Pain of left sacroiliac joint; Lumbar spondylosis Start: 05-19-2023 ambulatory SELF SELF [facility] Start: 05-19-2023 End: 05-19-2023 Office outpatient visit 15 minutes Jennie Hernandez MD Work Phone: [facility] Comment on above: Osteoarthritis of le ft sacroiliac joint (Primary Dx); Pain of left sacroiliac joint; Lumbar spondylosis Start: 04-18-2023 ambulatory JENNIE HERNANDEZ [facility] Start: 04-18-2023 End: 04-18-2023 Patient encounter procedure Jennie Hernandez MD Work Phone: [facility] Comment on above: Osteoarthritis of le ft sacroiliac joint (Primary Dx) Start: 04-18-2023 End: 04-18-2023 Subsequent hospital visit by physician Jennie Hernandez MD Work Phone: [facility] Procedure Images Comment on above: Arrived Start: 04-15-2023 ambulatory JENNIE HERNANDEZ [facility] Start: 02-25-2023 ambulatory JENNIE HERNANDEZ [facility] Start: 02-25-2023 End: 02-25-2023 Office outpatient new 30 minutes Jennie Hernandez MD Work Phone: [facility] Comment on above: Osteoarthritis of le ft sacroiliac joint (Primary Dx); Lumbar spondylosis; Lower extremity numbness Start: 01-13-[address] ROMARIO MAN [facility] ity:H1 Start: 01-08-2023 End: 01-09-[address] ROMARIO MAN Facility:[facility] Start: 12-30-2022 End: 12-31-2022 Evaluation and management of inpatient ROMARIO MAN [facility] Start: 12-30-2022 End: 12-31-2022 Evaluation and management of inpatient Rosa Garg Work Phone: [facility] Comment on above: Chest [...] examination without abnormal findings DR ROMARIO MAN [facility] Start: 09-11-2022 End: 09-12-[address] ROMARIO MAN Facility:[facility] Start: 09-11-2022 End: 09-12-2022 Encounter for general adult medical examination without abnormal findings DR ROMARIO MAN Facility:[facility] Start: 08-22-2022 End: 08-22-[address] NELSON IBRAHIM . Facility: Start: 07-10-2022 End: 07-11-2022 [facility]ulatory [facility] Start: 07-10-2022 End: 07-10-2022 Patient encounter procedure Julian DIAZ [facility] Start: 06-26-2022 End: 06-27-2022 ambulatory Julian DIAZ Facility::[id number] Start: 06-24-2022 Encounter for preprocedural laboratory examination DR JULIAN DIAZ . [facility] Start: 06-22-2022 End: 06-23-[address] JULIAN DIAZ . Facility:[facility] Start: 06-22-2022 End: 06-23-2022 Encounter for preprocedural laboratory examination DR JULIAN DIAZ . Facility:[facility] Start: 05-31-2022 End: 06-01-2022 ambulatory ROMARIO MAN PROVIDER Facility:[facility] Start: 05-31-2022 End: 05-31-2022 Patient encounter procedure Julian DIAZ General Surgery [facility] Start: 05-30-2022 End: 05-31-[address] NELSON IBRAHIM . Facility:[facility] Start: 05-15-2022 ambulatory Julian DIAZ Facility :[facility] Start: 04-30-2022 End: 04-30-[address] NELSON IBRAHIM . Facility:[facility] Start: 04-23-2022 End: 04-23-[address] NELSON IBRAHIM . Facility:[facility] Start: 04-03-2022 End: 04-04-2022 ambulatory JULIANE MASSEY . Facility:[facility] Start: 03-25-2022 End: 03-25-2022 Subsequent hospital visit by physician Romario Man MD Work Phone: [facility] Laboratory Comment on above: Chronic fatigue Start: 03-12-2022 End: 03-13-[address] ROMARIO MAN Facility:[facility] Start: 03-12-2022 End: 03-12-[address] ROMARIO MAN Facility:[facility] Start: 02-21-2022 End: 02-22-[address] NELSON IBRAHIM . Facility:[facility] Start: 02-05-2022 End: 02-05-[address] ROMARIO MAN Facility:[facility] Start: 03-09-2021 End: 03-09-2021 Emergency department patient visit Julian Dougherty MD [facility] ED Comment on above: Acute gout of right wrist, unspecified cause (Primary Dx) Start: 08-17-2020 End: 08-17-2020 Subsequent hospital visit by physician [facility] Cardiology Stress Room [facility] Stress Lab Comment on above: Arrived Start: 08-16-2020 End: 08-18-2020 Subsequent hospital visit by physician [facility] Vascular Imaging Room [facility] Vascular Lab Comment on above: Other specified lisette pheral vascular diseases (HCC) Start: 08-16-2020 End: 08-16-2020 Subsequent hospital visit by physician [facility] Stress Lab Comment on above: Arrived Start: 07-18-2020 End: 07-18-2020 Emergency department patient visit Sebastian Carmichael Work Phone: [facility] ED Comment on above: Abdominal pain, epig astric (Primary Dx) Start: 09-12-2019 End: 09-12-2019 Emergency department patient visit Justice Shaver Work Phone: [facility] Comment on above: Trapezius muscle spa sm (Primary Dx) Start: 06-14-2019 End: 06-14-2019 Emergency department patient visit Pablo Portillo Work Phone: [facility] Comment on above: Chronic pain of both shoulders (Primary Dx); Neck pain, chronic; Nonspecific chest pain Start: 01-29-2018 End: 01-30-2018 Ambulatory DEFAULT PHYSICIAN Facility:[facility] Start: 01-20-2018 End: 01-21-2018 Ambulatory DEFAULT PHYSICIAN Facility:[facility] Start: 01-10-2018 End: 01-13-2018 Evaluation and management of inpatient [facility] Procedures Date Procedure Procedure Detail Performing [...] Start: 12-31-2022 Assay of troponin [facility]: Start: 12-31-2022 BASIC METABOLIC PANEL W/ REFLEX TO MG FOR LOW [facility]: Start: 12-31-2022 Lipid [facility] Work Phone: Start: 12-31-2022 End: 12-31-2022 Ecg routine ecg w/least 12 lds w/i&r [facility] Work Phone: Start: 12-30-2022 Echo tthrc r-t 2d w/wom-mode compl spec&colr d [facility] Work Phone: Start: 12-30-2022 RESPIRATORY PANEL, MOLECULAR, WITH COVID-19 [facility] Work Phone: Start: 12-30-2022 Rhythm ecg 1-3 leads w/interpretation & report Unknown Provider Result Start: 12-30-2022 COVID-19, RAPID Lisa Harris MD Work Phone: Start: 12-30-2022 Ct thorax w/contrast material Lisa Negrete dd, MD Work Phone: Start: 12-30-2022 Assay of troponin quantitative Lisa najera MD Work Phone: Start: 12-30-2022 Radiologic exam chest single view Sergei dominic Susan Garg DO Work Phone: Start: 12-30-2022 Comprehensive metabolic panel Rosa Garg DO Work Phone: Start: 12-30-2022 End: 12-31-2022 Ecg routine ecg w/least 12 lds i&r only Rosa Garg DO Work Phone: Start: 09-11-2022 PSA screening JULIANE MASSEY . Comment on above: Performed By: #### HGBHCT #### [facility] [address] [place] [address] Dr. Raimundo Estrada Start: 06-26-2022 Colonoscopy Julian [...] Start: 07-18-2020 Assay of troponin quantitative Sebastian finley Work Phone: Start: 07-18-2020 Blood count complete auto&auto difrntl wbc Sebastian Carmichael Work Phone: Start: 07-18-2020 Comprehensive metabolic panel Sebastian gaffney Work Phone: Start: 07-18-2020 Urinalysis microscopic only [...] SIGNS SHOWKAT AHMAD Start: 01-12-2018 DIAGNOSTIC CARDIAC CLERK OF SUPERIOR COURT PROCEDURE SHOWKAT AHMAD Start: 01-12-2018 APTT SHOWKAT [...] TROPONIN SHOWKAT AHMAD Start: 01-10-2018 EKG 12-LEAD SOREN AHMAD Start: 01-10-2018 [facility] Start: 01-10-2018 INITIATE OXYGEN THERAPY PROTOCOL [facility] Start: 01-10-2018 INTAKE AND OUTPUT SHOWLIOR SPRAGUED Start: 01-10-2018 NOTIFY PHYSICIAN (SPECIFY) SOREN SPRAGUED Start: 01-10-2018 PLACE INTERMITTENT PNEUMATIC COMPRESSION DEVICE [facility] Start: 01-10-2018 PULSE OXIMETRY SPOT CHECK [facility] Start: 01-10-2018 TELEMETRY MONITORING SHOWLIOR SPRAGUED Start: 01-10-2018 VITAL SIGNS [facility] Start: 01-10-2018 PATIENT STATUS (DIRECT) SOREN [facility] Start: 10-06-2017 Cardiac catheterization Julian DIAZ Start: 10-06-2005 Cardiac catheterization Julian DIAZ Coronary artery sten t (physical object) Julian DIAZ Extraction of cataract Robi sherif DIAZ History of operative procedure on lumbar spinal structure Julian DIAZ Plan of Treatment Date Care Activity Detail Author Start: 07-01-2031 DTaP/Tdap/Td vaccine (3 - Td or Tdap) DTaP/Tdap/Td vaccine (3 - Td or Tdap) [employer] [facility] Start: 12-31-2025 Diabetes screen [facility] Start: 2025 Pneumococcal 0-64 years Vaccine (3 - PPSV23 if available, else PCV20) Pneumococcal 0-64 years Vaccine (3 - PPSV23 if available, else PCV20) [facility] Start: 2025 Pneumococcal 0-64 years Vaccine (3 - PPSV23 or PCV20) Pneumococcal 0-64 years Vaccine (3 - PPSV23 or PCV20) [facility] Start: 01-01-2024 Lipid panel Lipids [facility] [employer] Start: 09-18-2023 End: 09-18-2023 Arthrodesis sacroiliac joint percutaneous ARTHRODESIS SACROILIAC JOINT MINIMALLY INVASIVE W/ TRANSFIXING DEVICE Sacroiliitis 09/18/2023 10:52 AM EST [facility] Start: 09-18-2023 End: 09-18-2023 Fluoroscopy up to 1 hour physician/qhp time FLUOROSCOPY IN OR Sacroiliitis 09/18/2023 10:52 AM EST [facility] Start: 08-14-2023 End: 08-14-2023 Patient encounter procedure 08/14/2023 2:45 PM EST Office Visit [facility] [address] [place] [address] Nikhil Mohr MD [address] [place] [address] [facility] Start: 08-14-2023 End: 08-14-2024 B12/folate level B12 & FOLATE Lab Routine Hereditary and idiopathic peripheral neuropathy Expected: 08/14/2023, Expires: 08/14/2024 [facility] Comment on above: Expected: 08/14/2023, Expires: Start: 08-14-2023 End: 08-14-2024 Hemoglobin A1c/Hemoglobin.total in Blood HEMOGLOBIN A1C Lab Routine Hereditary and idiopathic peripheral neuropathy Expected: 08/14/2023, Expires: 08/14/2024 [facility] Comment on above: Expected: 08/14/2023, Expires: Start: 08-14-2023 End: 08-14-2024 MILENA AND PE, SERUM MILENA AND PE, SERUM Lab Routine Hereditary and idiopathic peripheral neuropathy Expected: 08/14/2023, Expires: 08/14/2024 [facility] Comment on above: Expected: 08/14/2023, Expires: Start: 08-14-2023 End: 08-14-2024 MR Cervical spine WO contrast MRI SPINE CERVICAL WITHOUT CONTRAST Imaging Routine Hyperreflexia Expected: 08/14/2023, Expires: 08/14/2024 [facility] Comment on above: Expected: 08/14/2023, Expires: Start: 08-14-2023 End: 08-14-2024 MR Thoracic spine WO contrast MRI SPINE THORACIC WITHOUT CONTRAST Imaging Routine Hyperreflexia Expected: 08/14/2023, Expires: 08/14/2024 [facility] Comment on above: Expected: 08/14/2023, Expires: Start: 08-14-2023 End: 08-14-2024 VITAMIN B6 VITAMIN B6 Lab Routine Hereditary and idiopathic peripheral neuropathy Expected: 08/14/2023, Expires: 08/14/2024 [facility] Comment on above: Expected: 08/14/2023, Expires: 4 Start: 07-04-2023 End: 07-04-2023 Patient encounter procedure 07/04/2023 9:00 AM EDT Office Visit [facility] [address] [place] [address] Jennie Hernandez MD [address] [place] [address] [facility] Start: 06-10-2023 End: 06-10-2023 Patient encounter procedure 06/10/2023 10:00 AM EDT Office Visit [facility] [address] [place] [address] Jennie Hernandez MD [address] [place] [address] [facility] Start: 06-06-2023 COVID-19 Vaccine ( season) COVID-19 Vaccine ( season) [facility] Start: 06-06-2023 Influenza vaccination [facility] Start: 05-19-2023 End: 05-19-2023 Patient encounter procedure 05/19/2023 9:00 AM EDT Office Visit [facility] [address] [place] [address] Jennie Hernandez MD [address] [place] [address] [facility] Start: 05-06-2023 Influenza vaccination Flu vaccine (#1) [facility] Start: 04-18-2023 End: 04-18-2023 Patient encounter procedure 04/18/2023 12:40 PM EDT Office Visit [facility] [address] [place] [address] Jennie Hernandez MD [address] [place] [address] [facility] Start: 04-15-2023 End: 04-15-2023 Patient encounter procedure 04/15/2023 10:15 AM EDT Office Visit [facility] [address] [place] [address] Jw Cee MD [address] [place] [address] [facility] Start: 03-25-2023 Hemoglobin A1c measurement A1C test (Diabetic or Prediabetic) [facility] Start: 02-25-2023 End: 02-26-2024 Electromyography EMG & NERVE CONDUCTION Neurology Routine Lower extremity numbness Expected: 02/25/2023, Expires: 02/26/2024 [facility] Comment on above: Expected: 02/25/2023, Expires: Start: 01-11-2023 Lipid screen Lipid screen [facility] [place] Start: 04-11-2022 End: 04-11-2022 Patient encounter procedure 04/11/2022 Office Visit Neurology Con Cowan MD [address] [place] [address] [facility] Part of [facility] Start: 06-06-2021 Influenza vaccination Flu vaccine (Season Ended) [facility] Work Phone: Start: 01-10-2021 Diabetes screen Diabetes screen [facility] Start: 2020 Respiratory Syncytial Virus (RSV) or age 60 yrs+ (1 - 1-dose 60+ series) Respiratory Syncytial Virus (RSV) or age 60 yrs+ (1 - 1-dose 60+ series) [facility] Start: 08-17-2020 End: 08-17-2020 Appointment 08/17/[address] [facility] Start: 06-06-2020 Influenza vaccination Flu vaccine (#1) [place], [place] Start: 06-06-2019 Influenza vaccination Flu vaccine (#1) [place] Start: 01-11-2019 Lipid panel [facility] Start: 01-11-2019 Lipid screen Lipid screen [place] Start: 08-13-2018 Prostate specific antigen measurement Prostate Specific Antigen (PSA) Screening or Monitoring [facility] Start: 2010 Colon cancer screen colonoscopy Colon cancer screen colonoscopy [place], [place] Start: 2010 Prostate specific antigen measurement PROSTATE CANCER SCREENING DISCUSSION [facility] Start: 2010 Screening for malignant neoplasm of colon Colon cancer screen colonoscopy [place] Start: 2010 Shingles Vaccine (1 of 2) Shingles Vaccine (1 of 2) [place] Start: 2010 Zoster vaccine hzv live for subcutaneous use ZOSTER (SHINGLES) VACCINE (1 of 2) [facility] Start: 2005 Screening for malignant neoplasm of colon [facility] Start: 2000 Lipid panel LIPID SCREENING [facility] Start: 1979 DTaP/Tdap/Td vaccine (1 - Tdap) DTaP/Tdap/Td vaccine (1 - Tdap) [place] Start: 1979 Third diphtheria, tetanus and acellular pertussis (DTaP) vaccination TDAP (ADULT) [facility] Start: 1978 Hepatitis C screening Hepatitis C screen [facility] Start: 1975 HIV screen HIV screen [place], [place] Start: 1975 HIV screening [facility] Start: 1972 COVID-19 Vaccine (1) COVID-19 Vaccine (1) [facility] Phone: Start: 1972 Depression Screen Depression Screen [facility] [employer] Start: 1971 DTaP/Tdap/Td vaccine (1 - Tdap) DTaP/Tdap/Td vaccine (1 - Tdap) [place] Start: 1966 Pneumococcal 0-64 years Vaccine (1 of 1 - PPSV23) Pneumococcal 0-64 years Vaccine (1 of 1 - PPSV23) [place] Start: 1966 Pneumococcal 0-64 years Vaccine (1 of 2 - PPSV23) Pneumococcal 0-64 years Vaccine (1 of 2 - PPSV23) [facility] [employer] Phone: Start: 04-09-1961 COVID-19 VACCINE (#1) COVID-19 VACCINE (#1) [facility] Start: 1960 Hepatitis C screen Hepatitis C screen [place], [place] Start: 1960 Hepatitis C screening [facility] Start: 1960 Tetanus vaccination TETANUS [facility] End: 01-02-2023 Basic Metabolic Panel w/ Reflex to MG Basic Metabolic Panel w/ Reflex to MG Lab Routine Daily for 3 Days starting 12/31/2022 until 01/02/2023, 1 completed [employer] Phone: Comment on above: Daily for 3 Days starting 12/31/2022 unt il 01/02/2023, 1 completed End: 01-02-2023 CBC W Auto Differential panel - Blood CBC with Auto Differential Lab Routine Daily for 3 Days starting 12/31/2022 until 01/02/2023, 1 completed [employer] Phone: Comment on above: Daily for 3 Days starting 12/31/2022 unt il 01/02/2023, 1 completed EKG 12 Lead EKG 12 Lead ECG STAT 06/14/2019 10:26 AM EDT [place] EKG 12 lead EKG 12 lead ECG Routine As Needed until discontinued starting 12/30/2022 [facility] [employer] [place] [facility] [employer] Phone: Comment on above: As Needed until discontinued starting End: 03-25-2022 Hemoglobin A1c/Hemoglobin.total in Blood [employer] Phone: Comment on above: 1 Occurrences starting 03/25/2022 until 03/25/2022 End: 12-31-2022 Hemoglobin A1c/Hemoglobin.total in Blood Hemoglobin A1C Lab Routine Tomorrow AM for 1 Occurrences starting 12/31/2022 until 12/31/2022 [employer] Phone: Comment on above: Tomorrow AM for 1 Occurrences starting 0 12/31/2022 until 12/31/2022 Hemoglobin A1c/Hemoglobin.total in Blood Hemoglobin A1C Lab Routine 12/31/2022 6:30 AM EDT [employer] Phone: Initiate ED RT Bronc hospasm Protocol Initiate ED RT Bronchospasm Protocol Respiratory Care Routine Daily until discontinued starting 2023 [employer] Comment on above: Daily until discontinued starting 2023 End: 12-30-2022 Intermittent pulse oximetry Pulse Oximetry Spot Check Respiratory Care Routine One Time for 1 Occurrences starting 12/30/2022 until 12/30/2022 [employer] Phone: Comment on above: One Time for 1 Occurrences starting 12/05 until 12/30/2022 End: 03-25-2022 Nuclear Ab [Titer] in Serum by Immunofluorescence [employer] Phone: Comment on above: 1 Occurrences starting 03/25/2022 until 03/25/2022 Oxygen therapy [[facility] Data Set] Initiate Oxygen Therapy Protocol Respiratory Care Routine As Needed until discontinued starting 12/30/2022 [employer] Phone: Comment on above: As Needed until discontinued starting End: 2023 Portable XR Chest AP single view [employer] Comment on above: Once for 1 Occurrences starting 10/10/19 until 2023 End: 09-18-2023 RF Unspecified body region Views during surgery [facility] Comment on above: One Time for 1 Occurrences starting 09/05 until 09/18/2023 Stress test, lexiscan Stress kendra t, lexiscan Cardiac Services Routine 12/31/2022 3:03 PM EDT [employer] Phone: Vibratory Airway Clearance Vibra tory Airway Clearance Respiratory Care Routine Every 1hr while awake until discontinued starting 12/30/2022 [employer] Phone: Comment on above: Every 1hr while awake until discontinued starting 12/30/2022 End: 03-25-2022 Vitamin B12 & Folate [employer] Phone: Comment on above: 1 Occurrences starting 03/25/2022 until 03/25/2022 XR CHEST PORTABLE XR CHEST HEDY BLE Imaging STAT 06/14/2019 10:43 AM EDT [employer] [place], [place] Payers Date Payer Category Payer Unknown [id number] 2022 Unknown 2022 Unknown [id number] 2021 Unknown [id number] 2021 Unknown [id number] 2019 Private Health Insurance [facility] [id number] 2019-Present [phone] [address] [place] [address] [id number] .[id number] 2019 Private Health Insurance [employer] xxxxxxxxxx 2019-Present [phone] [address] [place] [address] xxxxxxxxxx 1.2.840.026538.1.13.239.2 .7.3.834921.315 2016 Unknown [id number] 2014 Unknown [phone] 1.2.840.349834.1.13.239.2 .7.3.875910.315 1960 Unknown [id number] 2.16.840.1.302902.3.579.2 .727 1960 Unknown [id number] 2.16.840.1.768648.3.579.2 .727 1960 Unknown [id number] 2.16.840.1.796376.3.579.2 .727 1960 Unknown [id number] 2.16.840.1.602463.3.579.2 .727 1960 Unknown [id number] 2.16.840.1.424589.3.579.2 .593 1960 Unknown [id number] 2.16.840.1.019652.3.579.2 .593 1960 Unknown [id number] 2.16.840.1.993497.3.579.2 .593 1960 Unknown [id number] 2.16.840.1.260710.3.579.2 .593 1960 Unknown [id number] 2.16.840.1.082051.3.579.2 .593 1960 Unknown [id number] 2.16.840.1.296996.3.579.2 .593 1960 Unknown [id number] 2.16.840.1.416641.3.579.2 .593 1960 Unknown [id number] 2.16.840.1.426941.3.579.2 .593 1960 Unknown [id number] 2.16.840.1.471703.3.579.2 .593 1960 Unknown [id number] 2.16.840.1.610092.3.579.2 .593 1960 Unknown [id number] 2.16.840.1.262126.3.579.2 .593 1960 Unknown [id number] 2.16.840.1.383300.3.579.2 .593 1960 Unknown [id number] 2.16.840.1.435000.3.579.2 .593 1960 Unknown [id number] 2.16.840.1.852821.3.579.2 .593 1960 Unknown [id number] 2.16.840.1.285579.3.579.2 .593 1960 Unknown [id number] 2.16.840.1.322077.3.579.2 .593 1960 Unknown [id number] 2.16.840.1.938257.3.579.2 .593 1960 Unknown [id number] 2.16.840.1.721574.3.579.2 .593 1960 Unknown [id number] 2.16.840.1.499232.3.579.2 .593 1960 Unknown [id number] 2.16.840.1.169845.3.579.2 .593 1960 Unknown [id number] 2.16.840.1.712719.3.579.2 .983 1960 Unknown [id number] 2.16.840.1.629848.3.579.2 .983 1960 Unknown [id number] 2.16.840.1.741767.3.579.2 .983 1960 Unknown [id number] 2.16.840.1.375552.3.579.2 .983 1960 Unknown [id number] 2.16.840.1.552978.3.579.2 .983 1960 Unknown [id number] 2.16.840.1.479233.3.579.2 .983 1960 Unknown [id number] 2.16.840.1.178951.3.579.2 .983 1960 Unknown [id number] 2.16.840.1.280373.3.579.2 .983 1960 Unknown [id number] 2.16.840.1.489034.3.579.2 .983 1960 Unknown [id number] 2.16.840.1.220133.3.579.2 .983 1960 Unknown [id number] 2.16.840.1.378856.3.579.2 .983 1960 Unknown [id number] 2.16.840.1.927935.3.579.2 .983 1960 Unknown [id number] 2.16.840.1.067801.3.579.2 .983 1960 Unknown [id number] 2.16.840.1.400827.3.579.2 .983 1960 Unknown [id number] 2.16.840.1.675938.3.579.2 .173 1960 Unknown [id number] 2.16.840.1.893160.3.579.2 .173 1960 Unknown [id number] 2.16.840.1.815037.3.579.2 .1259 1960 Unknown [id number] 2.16.840.1.793535.3.579.2 .196 1960 Unknown [id number] 2.16.840.1.886189.3.579.2 .196 1959 Unknown [id number] 1.2.840.324212.1.13.239.2 .7.3.337508.315 1959 Unknown [id number] Social History Date Type Detail Facility Start: 06-14-2019 End: 12-30-2022 Tobacco smoking status [facility] Start: 06-14-2019 End: 12-30-2022 Alcohol intake Yes [facility] Start: 06-14-2019 Alcohol Comment not every day [facility] CAR[facility] Start: 1960 Sex Assigned At [facility] file [facility] [place] Start: 09-12-2019 End: 12-30-2022 Alcohol intake Current drinker of alcohol (finding) [place] Start: 07-18-2020 End: 12-30-2022 Tobacco use and exposure [facility] Start: 03-15-2022 End: 12-30-2022 Exposure to SARS-CoV-2 (event) Not sure [place] Start: 03-09-2021 End: 12-30-2022 Alcohol intake [employer] Tobacco smoking status Never [facility] Start: 12-30-2022 History SDOH Alcohol Frequency 5 [employer] Work Phone: Start: 12-30-2022 History SDOH Alcohol Std Drinks 2 [employer] Work Phone: Start: 09-09-2023 Alcohol Comment 3-4 BEERS DAILY [facility] How often to you hav e a drink containing alcohol? 4 or more times a week [employer] How many standard dr inks containing alcohol do you have on a typical day? 3 or 4 [employer] How often do you hav e 6 or more drinks on 1 occasion? Daily or almost daily [employer] Medical Equipment Procedure Code Equipment Code Equipment Origin al Text Equipment Identifier Dates [employer] System [id number] Start: 09-18-2023 Goals Date [...] prepare for safety after surgery. 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 Return to normal activity of house work/leisure/ADLs with post op therapy as ordered by surgeon if needed. Functional Status Date Assessment Result Facility 05-31-2022 Functional Status N/A [facility] Clinical Notes 02-21-2022 to 02-11-2024 Discharge InstructionsNursing Notes - Griselda Craig RN - 09/18/2023 2:38 PM ESTNursing Notes - Griselda Craig RN - 09/18/2023 2:38 PM ESTNursing Notes - Venecia Rivera RN - 09/18/2023 2:18 PM EST Note Date & Type Note Facility 02-11-2024 Note PR Cardiology - [facility] Subjective Noel Alva is a 63 [...] within normal limits. He underwent cath at [facility] 01/12/2018 due to chest pain [...] Rfl: 3 cholecalciferol (Vitamin D-3) 50 MCG (2000 UT) [...] the morning. D (more content not included)... [facility] 2023 Hospital Discharge instructions Nadia Fitzpatrick MD [...] or concern. documented in this encounter [facility] 09-18-2023 Note #Cardiac risk strati fication -Stress [...] diastolic function No significant valvular abnormalities [facility] 09-18-2023 Nurse Note Pt provided with discharge instructions. Pt Iv removed and belongings gathered. Pt was wheeled to car by surgery staff and driven home by family. 2nd Watch 09-18-2023 Miscellaneous Notes Pt provided with discharge [...] this time POST OPERATIVE/PROCEDURE NOTE Noel Alva ([id number]) SURGEON Surgeon(s) and Role: * Shaheen Chappell MD - Primary TRAM OPERATOR Marques ANESTHESIOLOGIST CAKE MAKER: Avinash Adams APRN-CAKE MAKER Student Nurse Peace Officer: Amanda Murphy SURGICAL STAFF Technical Solution Architect: Caryn Tineo RN Registered Nurse Car Spotter: Angeline Mohan RN Scrub Person: Luiza Calderon [...] 2023 12:13 PM documented in this encounter [facility] 09-18-2023 Nurse Note OT in with pt at this time [facility] 09-18-2023 History of Present illness Narrative [...] and can help during recovery) Primary Language Eritrean PRIOR LEVEL AM-PAC Activity Inpatient Short Form [...] LUE Assessment WFL Supine to Sit Mobility [place] Level: Supine->Sit contact guard assist Bed Features/Set-up: Supine->Sit Flat Skilled Rationale Verbal cues Skilled Intervention/Details: Supine->Sit pt reorted that he knew how to log roll but twisted to get up even with vcs and attempts to physically assist with proper technique Sit to Stand Transfer [place] Level: Sit->Stand contact guard assist Assistive Device: Sit->Stand 2 wheeled walker Skilled Rationale Hand placement;Verbal cues Skilled Intervention/Details: Sit->Stand pt pulling up on the walker with both hands- cues to push off Stand to Sit Transfer [place] Level: Stand->Sit stand-by assist Assistive Device: Stand->Sit [...] assist with R sock Acute AMPAC Acute [facility] Assessments Daily Activity Inpatient Short Form [...] Low (problem-focused assessments w/limited treatment options) 09/18/23 [id number] Surgery Information RN Approved Intervention as tolerated [...] bed mobility & transfers with supervision to CT. He was provided education review with log [...] Completed? yes Therapist Information License # [id number] General Information Pertinent History of Current Problem The patient is a 62 year old male with sacroiliitis who underwent Right SI fixation. He was referred to physical therapy for post procedure education review & mobility. Jc Farmer, PT documented in this encounter [facility] 09-18-2023 Nurse Note Pt ambulating in walters with PT without difficulty. [facility] 09-18-2023 Nurse Note PT in with pt at this time [facility] 09-18-2023 Nurse Note Discharge instructions provided, pt states understanding, including the sedentary activity as described, denies questions. [facility] 09-18-2023 Hospital Discharge instructions Venecia Rivera [...] take percocet prescribed by . Proceed with Esopus as prescribed by Dr. Chappell-when Esopus is completed, you may resume percocet from [...] this carefully. Please attend family, community and orthodoxy events as soon as possible after your [...] should be faxed. documented in this encounter [facility] 09-18-[address] Chappell in to see pt at this time [facility] 09-18-2023 Surgery Postoperative evaluation and management note POST OPERATIVE/PROCEDURE NOTE Noel Alva ([id number]) SURGEON Surgeon(s) and Role: * Shaheen Chappell MD - Primary TRAM OPERATOR Marques ANESTHESIOLOGIST CAKE MAKER: Avinash Adams APRN-CAKE MAKER Student Nurse Peace Officer: Amanda Murphy SURGICAL STAFF Technical Solution Architect: Caryn Tineo RN Registered Nurse Car Spotter: Angeline Mohan RN Scrub Person: Luiza Calderon [...] Chappell MD September 18, 2023 12:13 PM [facility] 08-14-2023 History of Present illness Narrative [facility] [...] not smoke. He is managed by [facility] in [place]. He is receiving Percocet and Lyrica. Lyrica [...] lids. There is no papilledema on fundoscopy. 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 Noel was seen today for new patient. Diagnoses and all orders for this visit: Hereditary and idiopathic peripheral neuropathy - HEMOGLOBIN A1C; Future - B12 & FOLATE; Future - VITAMIN B6; Future - MILENA AND PE, SERUM; Future Hyperreflexia - MRI SPINE CERVICAL WITHOUT CONTRAST; Future - MRI SPINE THORACIC WITHOUT CONTRAST; Future Nikhil Mohr MD 08/14/2023 documented in this encounter [facility] 08-13-2023 Note Cardiovascular Medic ine [facility] SUBJECTIVE Chief Complaint Patient presents with Coronary [...] his right hip with Dr. Chappell in [place]. Had labs in December 2022. history of CAD s/p stenting of the LAD in 2004, echocardiogram in 2010 was within normal limits. He underwent cath at [facility] 01/12/2018 due to chest pain [...] ASHD (arteriosclerotic heart disease) Dyslipidemia Intermittent claudication ([facility]) Mild intermittent asthma without complication Paresthesia of upper limb Peripheral vascular disease ([facility]) Primary hypertension S/P angioplasty with stent S/P cardiac cath Unstable angina ([facility]) Viral syndrome Past Medical History: Diagnosis Date Coronary artery disease Hypertension PVD (peripheral vascular disease) ([facility]) Family History Problem Relation Name [...] , Rfl: cholecalciferol (Vitamin D-3) 50 MCG (1999) tablet, Take 1 tablet by mouth in [...] and Affect (more content not included)... [facility] 08-13-2023 Note Patient here for 1 y [...] his right hip with Dr. Chappell in [place]. Had labs in December 2022. Review of Systems Cardiovascular: Positive for chest pain, claudication and dyspnea on exertion. Musculoskeletal: Positive for arthritis, back pain, joint pain and myalgias. Neurological: Positive for numbness. All other systems reviewed and are negative. [facility] 07-16-2023 History of Present illness Narrative Associated [...] therapy, medications, SI belt, therapeutic injections. Inadequate bed bug exterminator relief from therapeutic injection. 100% relief while [...] therapy, medications, SI belt, therapeutic injections. Inadequate bed bug exterminator relief from therapeutic injection. 100% relief while [...] findings. Additions if any: Jennie Hernandez MD, [facility] Orthopedics and Sports Medicine Stone [employer]ber - [facility] documented in this encounter [facility] 07-16-2023 Instructions Eric Luu - 07/16/2023 [...] associated with corticosteroids. documented in this encounter [facility] 07-04-2023 History of Present illness Narrative [...] Topical creams Physical therapy? Done recently at [facility] Xrays? Lumbar spine 12/2022 done at [place], bilateral hips and pelvis 01/08/23 MRI? 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 Done recently at [facility] Xrays? Lumbar spine 12/2022 done at [place], bilateral hips and pelvis 01/08/23 MRI? 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 Additions if any: Jennie Hernandez MD, [facility] [employer] - [facility] documented in this encounter [facility] 06-10-2023 History of Present illness Narrative [...] findings. Additions if any: Jennie Hernandez MD, [facility] Orthopedics and Sports Medicine Stone [employer] - [facility] documented in this encounter [facility] 05-19-2023 History of Present illness Narrative [...] Topical creams Physical therapy? Done recently at [place] [facility] Xrays? Lumbar spine 12/2022 done at [place], bilateral hips and pelvis 01/08/23 MRI? 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 Done recently at [facility] Xrays? Lumbar spine 12/2022 done at [place], bilateral hips and pelvis 01/08/23 MRI? 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 Additions if any: Jennie Hernandez MD, [facility] Orthopedics and Sports Medicine Stone [employer] - [facility] documented in this encounter [facility] 04-18-2023 History of Present illness Narrative [...] findings. Additions if any: Jennie Hernandez MD, [facility] Orthopedics and Sports Medicine [employer] - [facility] documented in this encounter [facility] 04-18-2023 Instructions Eric Luu - 04/18/2023 [...] associated with corticosteroids. 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 Noel may call the office with any questions or concerns. 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 Noel may call the office with any questions or concerns. Referrals:None Medications prescribed today: None Follow up plan: Sports US guided left sacroiliac joint injection with TITLE MANAGER Complexity of problem(s): Mild Risk of morbidity [...] findings. Additions if any: Jennie Hernandez MD, [facility] Stone [employer] - [facility] documented in this encounter [facility] 12-31-2022 History of Present illness Narrative Sports Book Server reviewed discharge instructions with patient. No new [...] home following this hospitalization. Patient resides in [place] alone. He uses no DME and has no outside resources or services currently in place. 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 He is independent with all activities of [...] Priscilla, as his decision maker if needed. PLANT PROTECTION SUPERINTENDENT to monitor and assist with any further [...] Well developed, well nourished with no malnutrition Radiology Physician consult initiated Hospital Prophylaxis: DVT: Lovenox Stress Ulcer: H2 Sarah Disposition: Shared decision making: All test results, treatment options and disposition options were discussed with the patient today Social determinants of health that may impact management: none Code status: Full Code Disposition: Discharge plan is home [facility] Advanced Care Planning documentation: [x] [...] the patient's medical record. [DOES NOT SATISFY [facility] PERFORMANCE] Cece Villalobos, AUTUMN - WHEEL POLISHER , THERAPEUTIC SALES SPECIALIST, SKI LIFT OPERATOR-C Hospitalist Medicine 12/31/2022, 9:21 AM Associated attestation - Kendell Camacho MD - 12/31/2022 5:52 PM EDT Images from the original note were not included. [address] , [place], [place], [address] Attestation Patient: Noel Alva Date of Admission: 12/30/2022 6:09 AM Hospital Day # 1 Date of Evaluation: 12/31/2022 I personally evaluated and examined the patient [id number] in conjunction with the PA/SKI LIFT OPERATOR and agree with the management and dispostition of the patient. Please see the PA/SKI LIFT OPERATOR's note for full details. My argueta findings [...] with the plan as outlined in the SKI LIFT OPERATOR/PA's note Disposition: Discharge plan is pending Please note that this chart was generated using voice recognition [employer] dictation software. Although every effort was made to ensure the accuracy of this automated underwater welder, some errors in underwater welder may have occurred. Kendell Camacho MD 12/31/2022 5:52 PM Sports Book Server to bedside to complete morning assessment. Upon entry to room, pt sitting up in bed, respirations even and unlabored while on room air. Vitals obtained and assessment completed, see flow sheet for details. Dr Camacho at bedside, reviewed pts blood pressure medications with him, okay to hold Norvasc and Metoprolol this morning. Pt denies needs from senior copywriter at this time. Call light in reach. Care ongoing. Noted senior copywriter had not urinated yet this shift. When [...] bedside table are within reach, will monitor. Sports Book Server offered meds to bed but patient declined. Echocardiogram/Doppler done at bedside. Instructed on policies and procedure. Spoke to cristian Zhao CNP for senior copywriter to correct home medications. Okay to add: [...] reach. Care ongoing. documented in this encounter [employer] Phone: 12-31-2022 Hospital Discharge instructions Ana Gutierres [...] at most local grocery stores, pharmacies, and [employer]. If you have any questions about your diet or nutrition, call the hospital and ask for the dietitian. Cardiac: low sodium, low cholesterol, low fat documented in this encounter [employer] Phone: 12-31-2022 Hospital course Narrative Discharge Summary [...] sharp in the left chest. No radiation. [place] burning sensation when the chest pain subsided. [...] discharge home he will follow-up with his precision agriculture specialist in [place]. Consultants: Dr. Mohr, cardiology Procedures: Stress Test [...] S/P cardiac cath-Patent LAD stent 01/12/18 -Dr. wilson 01/12/2018 Atypical chest pain 12/30/2022 Viral syndrome [...] Your Medications These medications were sent to [facility] [address] [place] [address], [place] - [address] - P [phone] - f [phone] [address] [address], [facility] [id number] atorvastatin 20 MG tablet Patient Instructions: Activity: activity as tolerated Diet: cardiac diet Wound Care: none needed Other: None Disposition: Discharge to Home Follow up: Patient will be followed by Romario Man MD in 1-2 weeks CORE MEASURES on Discharge (if applicable) BRITTNY/ARB in CHF: NA Statin in CT: NA ASA in CT: NA Statin in CVA: NA Antiplatelet in CVA: NA Total time spent on discharge services: 40 minutes Including the following activities: Evaluation and Management of patient Discussion with patient and/or surrogate about current care plan Coordination with Case Management and/or Polish Compounder Coordination of care with Consultants (if applicable) Coordination of care with Receiving Facility Physician (if applicable) Completion of DME forms (if applicable) Preparation of Discharge Summary Preparation of Medication Reconciliation Preparation of Discharge Prescriptions Signed: Cece Villalobos APRN - SREEDHAR, AUTUMN, SKI LIFT OPERATOR-C 12/31/2022, 5:06 PM Associated attestation - Kendell Camacho MD - 12/31/2022 5:53 PM EDT Images from the original note were not included. [address], [address] Attestation Patient: Noel Alva Date of Admission: 12/30/2022 6:09 AM Hospital Day # 1 Date of Evaluation: 12/31/2022 I personally evaluated and examined the patient [id number] in conjunction with the PA/SKI LIFT OPERATOR and agree with the management and dispostition of the patient. Please see the PA/SKI LIFT OPERATOR's note for full details. My argueta findings [...] care plan Coordination with Case Management and/or Polish Compounder Coordination of care with Consultants (if applicable) [...] this chart was generated using voice recognition Gro[employer]acon dictation software. Although every effort was made to ensure the accuracy of this automated underwater welder, some errors in underwater welder may have occurred. Kendell Camacho MD 12/31/2022 5:53 PM documented in this encounter [facility] [employer] Work Phone: 11-14-2022 Note CONSULTATION CONSULTATION DATE: [...] falls or foot drop. 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 He did have to take two days off of work last week, which his very unlike him. He had trouble getting out of bed due to increased pain. He is prescribed Esopus 5/325 t.i.d., but due to pain, patient [...] radiculopathy, lumbar spondylosis. PLAN: Patient brought his Esopus in today for a pill count. We will change his medication to Percocet 5/325 t.i.d. and increase his Lyrica to 100 mg b.i.d. I did recommend a Neurosurgery referral, which the patient does agree to. We will send a referral to Dr. Shaheen Chappell at [facility] in [place]. We will continue to manage his medications at this time, and we will see him in the clinic in three months. Patient agrees with this plan. [facility] 10-16-2022 Note CONSULTATION CONSULTATION DATE: 10/16/2022 [...] use a cane. His current medications include Esopus 5/325 b.i.d. and Aleve p.r.n. He has [...] next three days, we will increase his Esopus 5/325 to t.i.d. We will start also [...] Patient does agree with this plan. [facility] 08-22-2022 Note CONSULTATION CONSULTATION DATE: 08/22/2022 [...] weakness. Medications include Mobic 15 mg daily, Esopus 5/325 b.i.d. and tizanidine 4 mg q.h.s. [...] a menthol rub. We will maintain his Esopus 5/325 b.i.d. and he was instructed to use Voltaren to hi right CMC joint. Patient agrees with the plan of care and will be followed up in the office thereafter. [facility] 06-26-2022 Note OPERATIVE NOTE OPERATION DATE: [...] good condition. CC: Romario Man M.D. 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 [facility] Comment on above: Result [...] procedure well with no overt complications. [facility] 05-30-2022 Note CONSULTATION CONSULTATION DATE: 05/30/2022 [...] Medications include Mobic 15 mg daily and Esopus 5/325 b.i.d. He does take tizanidine 4 [...] indicated. Patient agrees with this plan. [facility] 04-03-2022 Note CONSULTATION CONSULTATION DATE: 04/03/2022 [...] and his workup at the ER in [place] warranted no findings. Today, he reports consistent [...] mg q.h.s., Mobic 15 mg daily and Esopus 5/325 b.i.d. p.r.n. Activities such as standing, [...] clinic and heading straight to the lab. [facility] Signed and Approved by: JULIANE MASSEY . 04/04/2022 13:38:00 [facility] 02-21-2022 Note CONSULTATION CONSULTATION DATE: 02/21/2022 [...] Medications include Mobic 15 mg q. day, Esopus 5/325 b.i.d. and tizanidine 4 mg q.h.s., [...] cervical neuritis. PLAN: We will refill his Esopus today 5/325 b.i.d., p.r.n. We will move [...] followed up in the office post procedure. [facility] Signed and Approved by: JULIANE MASSEY . 02/25/2022 15:08:00 [facility] Evaluation + Plan note No data available for this section General Surgery [place] Evaluation note Diagnosis Acute gout of right wrist, unspecified cause- Primary documented in this encounter [employer] Phone: evaluation note* Diagnosis Chronic fatigue Other malaise and fatigue documented in this encounter [employer] Phone: evaluation note* Diagnosis Atypical chest pain- Primary Other chest pain Chest pain, unspecified type Viral syndrome Unspecified viral infection, in conditions classified elsewhere and of unspecified site documented in this encounter [employer] Phone: evalnaqisp note* Diagnosis Osteoarthritis of left sacroiliac joint- Primary Lumbar spondylosis Lumbosacral spondylosis without myelopathy Lower extremity numbness Disturbance of skin sensation documented in this encounter [employer] [facility] [facility]* Diagnosis Osteoarthritis of left sacroiliac joint documented in this encounter [employer] [facility]* Diagnosis Osteoarthritis of left sacroiliac joint- Primary Osteoarthritis of left sacroiliac joint documented in this encounter [employer] [facility]* Diagnosis Osteoarthritis of left sacroiliac joint- Primary Pain of left sacroiliac joint Disorders of sacrum Lumbar spondylosis Lumbosacral spondylosis without myelopathy documented in this encounter [employer] [facility]* Diagnosis Osteoarthritis of right sacroiliac joint- Primary Pain of right sacroiliac joint Disorders of sacrum Polyneuropathy Unspecified hereditary and idiopathic peripheral neuropathy Lower extremity numbness Disturbance of skin sensation Osteoarthritis of left sacroiliac joint Pain of left sacroiliac joint Disorders of sacrum Lumbar spondylosis Lumbosacral spondylosis without myelopathy documented [facility] encounter [facility]* Diagnosis Osteoarthritis of both sacroiliac joints- Primary Pain of both sacroiliac joints Disorders of sacrum Polyneuropathy Unspecified hereditary and idiopathic peripheral neuropathy documented in this encounter [facility]* Diagnosis Osteoarthritis of both sacroiliac joints Pain of both sacroiliac joints Disorders of sacrum [facility] Diagnosis Osteoarthritis of both sacroiliac joints- Primary Pain of both sacroiliac joints Disorders of sacrum Osteoarthritis of both sacroiliac joints Pain of both sacroiliac joints Disorders of sacrum documented in this encounter [facility]* Diagnosis Hereditary and idiopathic peripheral neuropathy- Primary Unspecified hereditary and idiopathic peripheral neuropathy Hyperreflexia Abnormal reflex [facility]* Diagnosis Sacroiliitis- Primary Sacroiliitis, not elsewhere classified [facility]* Diagnosis Viral illness- Primary Unspecified viral infection, in conditions classified elsewhere and of unspecified site documented [facility] encounter [facility] Discharge instructions* Attachments The following attachments cannot be sent through Care Everywhere. * Gout (Eritrean) [facility]: Hospital Discharge instructions No data available for this section General Surgery [place] Progress note No data available for this section General Surgery [facility] Reason for referral (narrative)* Consultation (Routine) - Auth Not Needed Specialty Diagnoses / Procedures Referred By Anni t Referred To Contact Neurology Diagnoses Polyneuropathy Jennie Hernandez MD [address] [place] [id number] Nikhil Mohr MD [address] [place] [address] Referral ID Status Reason Start Date Expiration Date V isits Requested Visits Authorized [id number] Auth Not Needed 06/10/2023 07/04/2024 1 1 * Radiology (Routine) - New Request Specialty Diagnoses / Procedures Referred By Contac t Referred To Contact Diagnoses Osteoarthritis of left sacroiliac joint Pain of left sacroiliac joint Procedures US IMAGING FOR ORTHO Jennie Hernandez MD [address] [place] [address] [place] [address] Referral ID Status Reason Start Date Expiration Date V isits Requested Visits Authorized [id number] New Request 06/10/2023 07/04/2024 1 1 [facility] for referral (narrative)* Consultation (Routine) - Schedule Outgoing - Transfer of Care Specialty Diagnoses / Procedures Referred By Contac t Referred To Contact Neurologic Surgery Diagnoses Osteoarthritis of both sacroiliac joints Pain of both sacroiliac joints Jennie Hernandez MD [address] [place] [id number] Referral ID Status Reason Start Date Expiration Date V isits Requested Visits Authorized [id number] Schedule Outgoing - Transfer of Care 07/16/2023 08/09/2024 1 1 * Radiology (Routine) - New Request Specialty Diagnoses / Procedures Referred By Contac t Referred To Contact Diagnoses Osteoarthritis of both sacroiliac joints Pain of both sacroiliac joints Procedures US IMAGING FOR ORTHO Jennie Hernandez MD [address] [place] [address], [place] [address] Referral ID Status Reason Start Date Expiration Date V isits Requested Visits Authorized [id number] New Request 07/16/2023 08/09/2024 1 1 [facility] for referral (narrative)* (Routine) Specialty Diagnoses / Procedures Referred By Contac t Referred To Contact [facility] [place] [facility] [address] [place] [address] Referral ID Status Reason Start Date Expiration Date Visits Re quested Visits Authorized [facility] Summary Purpose Family History [...] FoundDocuments on File Type Date Recorded Patient Banquet Steward Expl anation Advance Directives and Living Will Power of Arboriculture Instructor Latest Code Status on File Code Status Date Activated Date Inactivated Comments Full Code 01/12/2018 8:34 PM 01/13/2018 3:53 PM Full Code 01/10/2018 3:36 PM 01/12/2018 8:34 PM Documents on File Type Date Recorded Patient Banquet Steward Expl anation ACP-Advance Directive ACP-Power of Arboriculture Instructor Documents on File Type Date Recorded Patient Banquet Steward Expl anation ACP-Advance Directive ACP-Power of Arboriculture Instructor Latest Code Status on File Code Status [...] sent through Care Everywhere. * Chest Pain (Eritrean) * Back Pain (Eritrean) * Shoulder Pain (Eritrean) documented in this encounter* Instructions* Justice Shaver [...] sent through Care Everywhere. * Neck Spasm (Eritrean) documented in this encounter* Attachments The following attachments cannot be sent through Care Everywhere. * Abdominal Pain (Eritrean) * Acid-Reducing Medicines: General Info (Eritrean) documented in this encounter Assessments Diagnosis Chronic [...] Procedures VL DUP CAROTID BILATERAL Lisa Wyatt, THERAPEUTIC SALES SPECIALIST - WHEEL POLISHER [address] [place] [address] Specialty Diagnoses / Procedures Referred By Contac t Referred To Contact Diagnoses Lower extremity numbness Procedures EMG & NERVE CONDUCTION Jennie Hernandez MD [address] [facility] [place] [address] [place] [address] Jw Cee MD [address] [place] [id number] Referral ID Status Reason Start Date Expiration Date V isits Requested Visits Authorized [id number] Pending Review 02/25/2023 03/21/2024 1 1 Specialty Diagnoses / Procedures Referred By Contac t Referred To Contact Diagnoses Osteoarthritis of left sacroiliac joint Procedures US IMAGING FOR ORTHO Jennie Hernandez MD [address] [facility] [place] [address] [place] [address] Referral ID Status Reason Start Date Expiration Date V isits Requested Visits Authorized [id number] New Request 04/18/2023 05/12/2024 1 1 Specialty Diagnoses / Procedures Referred By Contac t Referred To Contact Diagnoses Osteoarthritis of both sacroiliac joints Pain of both sacroiliac joints Procedures US IMAGING FOR ORTHO Jennie Hernandez MD [address] [place] [address] Referral ID Status Reason Start Date Expiration Date V isits Requested Visits Authorized [id number] New Request 07/16/2023 08/09/2024 1 1 Specialty Diagnoses / Procedures Referred By Contac t Referred To Contact Diagnoses Hyperreflexia Procedures MRI SPINE THORACIC WITHOUT CONTRAST MI MRI, DORSAL SPINE Nikhil Mohr MD [address] [place] [address] Referral ID Status Reason Start Date Expiration Date V isits Requested Visits Authorized [id number] New Request 08/14/2023 09/07/2024 1 1 Specialty Diagnoses / Procedures Referred By Contac t Referred To Contact Diagnoses Hyperreflexia Procedures MRI SPINE CERVICAL WITHOUT CONTRAST MI MRI, CERV SPINE Nikhil Mohr MD [address] [place] [address] Referral ID Status Reason Start Date Expiration Date V isits Requested Visits Authorized [id number] New Request 08/14/2023 09/07/2024 1 1 Additional Source Comments (unrecognized sect ion and content) No Status Records FoundNo Status Records FoundNo Status Records FoundNo Status Records FoundNo Status Records FoundNo Status Records FoundNo Status Records FoundNo Status Records FoundNo Status Records FoundNo Status Records FoundNo Status Records Found INFORMATION SOURCE (unrecogn ized section and content) DATE CREATED AUTHOR 03/26/2018 [facility] DATE CREATED AUTHOR AUTHOR'S ORGANIZ ATION 03/26/2018 [facility] DATE CREATED AUTHOR AUTHOR'S ORGANIZ ATION 07/11/2022 [facility] DATE CREATED AUTHOR AUTHOR'S ORGANIZ ATION 01/18/2023 [facility] DATE CREATED AUTHOR AUTHOR'S ORGANIZ ATION 04/15/2023 [facility] DATE CREATED AUTHOR AUTHOR'S ORGANIZ ATION 07/18/2023 [facility] DATE CREATED AUTHOR AUTHOR'S ORGANIZ ATION 09/22/2023 [facility] DATE CREATED AUTHOR AUTHOR'S ORGANIZ ATION 10/11/2023 [facility] DATE CREATED AUTHOR AUTHOR'S ORGANIZ ATION 11/25/2023 [facility] DATE CREATED AUTHOR AUTHOR'S ORGANIZ ATION 02/13/2024 [facility] DATE CREATED AUTHOR AUTHOR'S ORGANIZ ATION 03/25/2024 [facility] Reason for Visit (unrecogniz ed section and content) Reason Comments Shoulder Pain ongoing for past wee k worse today Neck Pain worse today Chest Pain ongoing for one week worse today Reason Comments Neck Pain burning/shooting kalen n, BL posterior neck. REcent nerve procedure with pain management. Out of [facility] for 2 days. Reason Comments Flank Pain pt staes bilateral f alnk pain, onset Friday Status Reason Specialty Diagnoses / Procedures Referred By Contact Referred To Contact Authorized Stress Lab Diagnoses Atherosclerotic heart disease of [place] coronary artery without angina pectoris Procedures HC NM LEXISCAN STRESS W NUC HC NM SEST. REST STRESS MULT [id number] NM STRESS Lisa Wyatt, THERAPEUTIC SALES SPECIALIST - WHEEL POLISHER [address] [place] [address] [facility] [address] [place], [place] [id number] Status Reason Specialty Diagnoses / Procedures Referre d By Contact Referred To Contact Closed Vascular Lab Diagnoses Other specified peripheral vascular diseases Procedures EXTRACRANIAL BILAT STUDY [id number] US CAROTIDS Lisa Wyatt, THERAPEUTIC SALES SPECIALIST - WHEEL POLISHER [address] [place] [address] [facility] [address] [place] [phone] Status Reason Specialty Diagnoses / Procedures Referred By Contact Referred To Contact Closed Stress Lab Diagnoses Atherosclerotic heart disease of [place] coronary artery without angina pectoris Procedures HC NM LEXISCAN STRESS W NUC HC NM SEST. REST STRESS MULT 46833 NM STRESS Lisa Wyatt, THERAPEUTIC SALES SPECIALIST - WHEEL POLISHER [address] [place] [address] [facility] [address] [facility] [address] [place] [address] Reason Comments Wrist Pain Right, onset last [...] pain, unspecified type Kendell Camacho MD [address] [place] [address] [facility] [address] [place] [address] Referral ID Status Reason Start Date Expiration Date Visits Re quested Visits Authorized [id number] 1 1 Reason Comments Pain New Patient Specialty Diagnoses / Procedures Referred By Contac t Referred To Contact Diagnoses Osteoarthritis of left sacroiliac joint Procedures US IMAGING FOR ORTHO Jennie Hernandez MD [address] [facility] [place] [address] Referral ID Status Reason Start Date Expiration Date V isits Requested Visits Authorized [id number] New Request 04/18/2023 05/12/2024 1 1 Reason Comments Pain Joint Injection Reason Comments Pain Follow-up Reason Comments Pain Specialty Diagnoses / Procedures Referred By Contac t Referred To Contact Diagnoses Osteoarthritis of both sacroiliac joints Pain of both sacroiliac joints Procedures US IMAGING FOR ORTHO Jennie Hernandez MD [address] [facility] [place] [address] Referral ID Status Reason Start Date Expiration Date V isits Requested Visits Authorized [id number] New Request 07/16/2023 08/09/2024 1 1 Reason Comments Pain Right Sacroiliac laurent nt Follow-up Right Sacroiliac laurent nt Joint Injection Right Sacroiliac laurent nt Reason Comments New Patient bilateral lower limb polyneuropathy Specialty Diagnoses / Procedures Referred By Contac t Referred To Contact Neurology Diagnoses Polyneuropathy Jennie Hernandez MD [address] [facility] [place] [address] [place] [address] Nikhil Mohr MD [address] [place] [address] Referral ID Status Reason Start Date Expiration Date Visits Re quested Visits Authorized [id number] Closed 06/10/2023 07/04/2024 1 1 Specialty Diagnoses / Procedures Referred By Anni t Referred To Contact Diagnoses Sacroiliitis Sacroiliitis [M46.1] Procedures MI ARTHRODESIS SACROILIAC JOINT PERCUTANEOUS CHG FLUOROSCOPY UP TO 1 HOUR PHYSICIAN/QHP TIME MI IMPLANT/INSERT DEVICE, NOC PROSTHETIC IMPLANT NOS ARTHRODESIS SACROILIAC JOINT MINIMALLY INVASIVE W/ TRANSFIXING DEVICE FLUOROSCOPY IN OR Shaheen Chappell MD [address] [address] Referral ID Status Reason Start Date Expiration Date Visits Re quested Visits Authorized [id number] 09/11/2023 1 1 Reason Comments Influenza Symptoms [...] chew. 1134 (Given - Provid er: Clara Clement, RN) traMADol (ULTRAM) tablet 100 mg (COMPLETED) [...] mg from all sources in 24 hours. 4809 (Given - Provider: Monalisa Hudson RN) 0831 (Given - Provider: Corrie Ibarra RN - [...] 1141, Other 1141 (Given - Provid er: cJ Warren) tiZANidine (ZANAFLEX) tablet 4 mg 4 [...] IntraVENous, EVERY 6 HOURS PRN, Starting on 12/30/22 at 1245, Until Discontinued, Nausea, Vomiting
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 TO PROCEDURE, 1 dose, Starting on Debbie [...] Care Teams (unrecognized sec tion and content) Chemotherapist Relationship Specialty Start Date End Date Romario Man MD [address] [place] [address] PCP - General Family Medicine 06/14/19 Chemotherapist Relationship Specialty Start Date End Date Romario Man MD [address] [place] [address] PCP - General Family Medicine 06/14/19 Chemotherapist Relationship Specialty Start Date End Date Romario Man MD [address] [place] [phone] PCP - General Family Medicine 04/18/23 Chemotherapist Relationship Specialty Start Date End Date Romario Man MD [address] [place] [phone] PCP - General Family Medicine 04/18/23 Chemotherapist Relationship Specialty Start Date End Date Romario Man MD [address] [place] [address] PCP - General Family Medicine 04/18/23 Chemotherapist Relationship Specialty Start Date End Date Romario Man MD [address] [place] [address] PCP - General Family Medicine 04/18/23 Chemotherapist Relationship Specialty Start Date End Date Romario Man MD [address] [place] [address] PCP - General Family Medicine 04/18/23 Chemotherapist Relationship Specialty Start Date End Date Romario Man MD [address] [place] [address] PCP - General Family Medicine 04/18/23 Chemotherapist Relationship Specialty Start Date End Date Romario Man MD [address] [place] [phone] PCP - General Family Medicine 04/18/23 Chemotherapist Relationship Specialty Start Date End Date Romario Man MD [address] [place] [address] PCP - General Family Medicine 04/18/23 Chemotherapist Relationship Specialty Start Date End Date Romario Man MD [address] [place] [address] PCP - General Family Medicine 06/14/19 FOR [...] BE BASED ON THE PRIMARY CLINICAL RECORDS. [facility]. provides no warranty or guarantee of the accuracy or completeness of information in this document.
[2024-05-13 05:11] LABS: Basophils Absolute Auto 0.1 10^3/uL (0.0-0.1); Basophils Percent Auto 0.8 % (0.2-2.0); Eosinophils Absolute Auto 0.2 10^3/uL (0.0-0.7); Eosinophils Percent Auto 2.2 % (0.9-7.0); Hematocrit 44.5 % (42.0-54.0); Hemoglobin 15.3 g/dL (14.0-18.0); Immature Granulocytes Abs Auto 0.02 10^3/uL (0.00-0.03); Immature Granulocytes Pct Auto 0.3 % (0.0-0.5); Lymphocytes Absolute Auto 1.3 10^3/uL (1.2-3.8); Lymphocytes Percent Auto 18.6 % (20.5-60.0); Mean Corpuscular HGB Conc 34.4 g/dL (29.9-35.2); Mean Corpuscular Hemoglobin 31.5 pg (25.9-34.0); Mean Corpuscular Volume 91.8 fL (80.0-94.0); Mean Platelet Volume 9.6 fL (9.5-13.5); Monocytes Absolute Auto 0.6 10^3/uL (0.3-0.8); Monocytes Percent Auto 8.8 % (1.7-12.0); Neutrophils Percent Auto 69.3 % (43.0-75.0); Platelet Count 209 10^3/uL (150-450); Red Blood Count 4.85 10^6/uL (4.70-6.10); Red Cell Distribution Width 13.7 % (11.0-15.0); White Blood Count 7.2 10^3/uL (4.0-11.0)
[2024-05-13] MEDS: ONDANSETRON PF 4 MG/2 ML VIAL IV (05:23)
[2024-05-13] MEDS: 0.9 % SODIUM CHLORIDE 1,000 ML 100 ML IV (05:23)
[2024-05-13 05:30] LABS: Alanine Aminotransferase 27 U/L (16-63); Albumin Globulin Ratio 0.9; Albumin Level 3.4 g/dL (3.4-5.0); Alkaline Phosphatase 104 U/L (46-116); Anion Gap 10.5; Aspartate Amino Transferase 16 U/L (15-37); BUN Creatinine Ratio 25.9; Bilirubin Total 0.6 mg/dL (0.2-1.0); Calcium 9.3 mg/dL (8.5-10.1); Carbon Dioxide 27.4 mmol/L (21.0-32.0); Chloride 105 mmol/L (98-107); Estimated GFR (African America >60 (>=60); Estimated GFR (Non-African Ame >60 (>=60); Globulin 3.9 g/dL; Glucose 105 mg/dL (74-106); Lactate/Lactic Acid 0.9 mmol/L (0.4-2.0); Potassium 3.9 mmol/L (3.5-5.1); Sodium 139 mmol/L (136-145); Total Protein 7.3 g/dL (6.4-8.2); Troponin I High Sensitivity 11.8 pg/mL (4.0-76.1)
--- NOTE | 2024-05-13 06:03 | XR_ITS ---
The [address] [address] Patient Name: AJ MORA MRN: [id number] date: 1960 Sex: M Assigned Patient Location: ER Current Patient Location: ED.MAIN Accession/Order Number: [id number] Exam Date: 05/13/2024 06:30 Report Date: 05/13/2024 06:51 At the request of: RANDALL MARKER Procedure: XR chest 1V EXAMINATION: XR chest 1V HISTORY: SOB COMPARISON: XR chest 08/14/2021 FINDINGS: LUNGS: Mild stranding within right lung base. VASCULATURE: No increased pulmonary vasculature. PLEURA: No pneumothorax, effusion, or pleural thickening. CARDIAC: No cardiomegaly or cardiac silhouette abnormality. MEDIASTINUM: No visible mass or adenopathy. BONES: No fracture or visible bone lesion. OTHER: Negative. XR/XR chest 1V IMPRESSION: 1. Mild right basilar infiltrates versus discoid atelectasis; new since prior study. Electronically authenticated by: PEDRO PABLO CHAMBERS Date: 05/13/2024 06:51
== END 2024-05-13 07:01 | disposition home or self-care (01) ==
PROVIDERS: Emergency Provider Emergency Medicine; PCP Family Medicine
DX: G62.9 Polyneuropathy, unspecified (principal); R11.0 Nausea; I10 Essential (primary) hypertension; Z95.5 Presence of coronary angioplasty implant and graft; G89.4 Chronic pain syndrome; M48.061 Spinal stenosis, lumbar region without neurogenic claudication; M54.16 Radiculopathy, lumbar region; Z79.899 Other long term (current) drug therapy; I51.9 Heart disease, unspecified; M19.90 Unspecified osteoarthritis, unspecified site; M79.18 Myalgia, other site
CPT/HCPCS: 36415; 70450; 71045; 80053; 81001; 83605; 83690; 84484; 85025; 93005; 96374; 99285; J2405

== ENCOUNTER 2024-05-24 06:55 | Observation (INO) | payer OTHER, SELFPAY ==
[2024-05-24] VITALS (27 sets, daily range): BP systolic 132–197; BP diastolic 84–118; PULSE 59–108; TEMP 36.8–37.3; O2SAT 94–97; BMI 27.4; BMI 25.7
--- NOTE | 2024-05-24 07:05 | XR_ITS ---
The [address] [address] Patient Name: AJ MORA MRN: [id number] date: 1960 Sex: M Assigned Patient Location: ER Current Patient Location: ER Accession/Order Number: [id number] Exam Date: 05/24/2024 07:17 Report Date: 05/24/2024 07:31 At the request of: CAROLE CRAVEN Procedure: XR chest 1V EXAMINATION: XR chest 1V HISTORY: cp COMPARISON: 05/13/2024 TECHNIQUE: AP portable FINDINGS: LUNGS: No significant pulmonary parenchymal abnormalities. VASCULATURE: No increased pulmonary vasculature. PLEURA: No pneumothorax, effusion, or pleural thickening. CARDIAC: No cardiomegaly or cardiac silhouette abnormality. MEDIASTINUM: Soft tissue prominence right paratracheal stripe, stable BONES: No fracture or visible bone lesion. OTHER: Negative. XR/XR chest 1V IMPRESSION: No acute cardiopulmonary process Electronically authenticated by: LUIS CARLOS ENCARNACION Date: 05/24/2024 07:31
--- NOTE | 2024-05-24 07:05 | ECG_ITS ---
The [facility] Test Date: 2024-05-24 Pat Name: AJ MORA Department: Room: - Gender: Male Composite Technician: : 1960 Requested By: ALICIA MAN Order Number: [id number] Reading MD: COSMO DEJESUS Measurements Intervals [place] Rate: 65 P: 48 TX: 138 QRS: 66 QRSD: 74 T: 90 QT: 400 QTc: 412 Interpretive Statements 1100 Sinus rhythm 4068 Nonspecific Twave abnormality 9130 borderline ECG Compared to ECG 05/13/2024 04:12:11 No significant changes Electronically Signed On 05-24-2024 23:05:54 EDT by COSMO DEJESUS
--- OUTSIDE RECORDS SUMMARY | 2024-05-24 07:12 | XMS_ITS | CCD ---
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 Role Phone PHYSICIAN, DEFAULT Unavailable Unavailable PHYSICIAN, DEFAULT Unavailable Unavailable PHYSICIAN, DEFAULT Unavailable Unavailable PHYSICIAN, DEFAULT Unavailable Unavailable AHMAD, SHOWKAT Unavailable Unavailable AHMAD, SHOWKAT Unavailable Unavailable MELVI BATRES Unavailable Unavailable MARY CANTU Unavailable Unavailable JAXON WILSON Unavailable Unavailable Romario Man Primary Care Provider Magda, Romario Bloom Primary Care Provider [phone] Romario Man MD Primary Care Provider MAGDA, [...] Referring Unavailable HERNANDEZ, JENNIE S Attending Unavailable [facility], OTHER Primary Care [...] NADERER, ROMARIO Primary Care Unavailable Jeimyr Romario DRMUMOND Primary Care Provider [facility] Davis LEVI Primary Care UnavailFANY [...] Medication Allergies] Propensity to adverse reactions (disorder) [facility] Repository Medications Current Medications Medication Drug Class(es) Dates Sig (Normalized) Sig (Original) Acetaminophen (10 sources) Start: 12-30-2022 acetaminophen (TYLENOL) tablet 650 mg Start: 09-12-2019 take 2 tablets by mo [facility] every eight hours as needed for [...] tablet Start: 05-23-2022 take 1 tablet by [facility] twice daily Ovid 5/325 Tab 1 tab(s), Oral, BID, Refill(s) [...] BID, # 90 tab(s), Refills(s) 3, Pharmacy: [id number], 167.6, cm, 05/31/22 14:31:00 EDT, [...] Start: 01-20-2023 take 1 capsule by mo [facility] twice daily Pregabalin 50 MG capsule [...] 1 tablet by mouth once daily aspirin, [id number], tablet Take 1 tablet by mouth daily. 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; Translations: [PATIENT FINANCIAL REP CURRENT USE OF ASPIRIN] Onset: 07-01-2022 Episodic Other aftercare (1 source) Other fdc (current) drug therapy; Translations: [OTH PATIENT FINANCIAL REP CURRENT DRUG THERAPY] Onset: 07-01-2022 Episodic Other [...] Range Facility Office Visiton 02-11-2024 Follow-up visit [id number] Dorothea Alva Nola 1960 M Date Provider Department Center 02/11/2024 ELIEL ECKERT VALENCIA Krishnamurthy [facility] Family History Problem Relation Age of Onset Coronary artery disease Mother Coronary artery disease Father Family Status - Relation Status Age at Mother Father Level of Service:85954 [place] OFFICE/OUTPATIENT ESTABLISHED MOD MDM 30 MIN Normal [facility] COVID-19, Rapidon 2023 SARS-CoV-2 (COVID-19) RdRp gene DAHLIA+probe Ql (Resp) Not detected Not Detected [facility] Comment on above: Rapid NAAT: The [...] management decisions. Fact sheet for Healthcare Providers: https://www.fda.gov/media/930329/download Fact sheet for Patients: https://www.fda.gov/media/613751/download Methodology: Isothermal Nucleic Acid Amplification Specimen Description .NASOPHARYNGEAL SWAB [facility] Flu A/B Ag Detectionon 10-10 Flu A Ag Detection Negative Normal NEG [facility] Comment on above: Result Comment: for Influenza A Antigen Performed By: #### F LUABA #### [facility] [address] [place] [address] Telegraph Messenger: Luis Carlos Del Castillo MD Flu B Ag Detection Negative Normal NEG [facility] Comment on above: Result Comment: for Influenza B Antigen. Performed By: #### F LUABA #### [facility] [address] [place] [address] Telegraph Messenger: Luis Carlos Del Castillo MD Rapid influenza A/B antigens on 2023 FLUAV Ag Ql (Unsp spec) Negative NEGATIVE [facility] Comment on above: for Influenza A Anti gen FLUBV Ag Ql (Unsp spec) Negative NEGATIVE [facility] Comment on above: for Influenza B Anti gen. [facility] [id number] 2023 SARS-CoV-2 (COVID-19) RNA DAHLIA+probe Ql (Unsp spec) Not detected Normal NOTDET [facility] Comment on above: Result Comment: [...] management decisions. Fact sheet for Healthcare Providers: https://www.fda.gov/media/065202/download Fact sheet for Patients: https://www.fda.gov/media/063355/download Methodology: Isothermal Nucleic Acid Amplification Performed By: #### C OVRB #### [facility] [address] [place] [address] Telegraph Messenger: Luis Carlos Del Castillo MD XR CHEST [...] Nav Hudson MD 10/10/23 Final result Normal [facility] Documentationon 09-18-2023 Documentation [id number] ArtieDorothea Vaca 1960 M Date Provider Department [facility] Family History Problem Relation Age of Onset Coronary artery disease Mother Coronary artery disease Father Family Status - Relation Status Age at Mother Father Normal [facility] CBCon 09-09-2023 ABSOLUTE BAS 0.1 10*3/uL Normal 0.0-0.2 [facility] ABSOLUTE EOS 0.1 10*3/uL Normal 0.0-0.7 [facility] ABSOLUTE NEUTROPHIL COUNT 7.0 10*3/uL High 1.4-6.5 [facility] Basophils/100 WBC (Bld) 0.9 % Normal 0.0-2.0 [facility] DTYPE AUTO DIFF Normal [facility] Eosinophils/100 WBC (Bld) 1.3 % Normal 0.0-11.0 [facility] Lymphocytes (Bld) [#/Vol] 1.5 10*3/uL Normal 1.2-3.4 [facility] Lymphocytes/100 WBC (Bld) 15.7 % Low 20.0-55.0 [facility] Monocytes (Bld) [#/Vol] 0.6 10*3/uL Normal 0.0-0.7 [facility] Monocytes/100 WBC (Bld) 7.0 % Normal 0.0-10.0 [facility] Neutrophils/100 WBC (Bld) 75.1 % High 37.0-75.0 [facility] Erythrocyte distribution width (RBC) [Ratio] 14.6 % High 11.5-14.5 [facility] Hematocrit (Bld) [Volume fraction] 41.6 % Low 42.0-52.0 [facility] Hemoglobin (Bld) [Mass/Vol] 13.9 g/dL Low 14.0-18.0 [facility] MCH (RBC) [Entitic mass] 33.0 pg Normal 26.0-35.0 [facility] MCHC (RBC) [Mass/Vol] 33.4 g/dL Normal 27.0-37.0 [facility] MCV (RBC) [Entitic vol] 98.7 fL Normal 80.0-100.0 [facility] Platelet mean volume (Bld) [Entitic vol] 7.8 fL Normal 7.4-11.0 [facility] Platelets (Bld) [#/Vol] 195 10*3/uL Normal 130-400 [facility] RBC (Bld) [#/Vol] 4.21 10*6/uL Normal 4.0-6.1 [facility] WBC (Bld) [#/Vol] 9.3 10*3/uL Normal 3.6-11.0 [facility] CMP FASTINGon 09-09-2023 A:G RATIO 1.5 RATIO Normal 1.3-2.2 [facility] ALBUMIN 4.3 G/dl Normal 3.5-5.0 [facility] ALP [Catalytic activity/Vol] 99 U/L Normal 38-126 [facility] ALT [Catalytic activity/Vol] 46 U/L Normal <50 [facility] AST [Catalytic activity/Vol] 57 U/L Normal 17-59 [facility] Bilirubin [Mass/Vol] 0.7 mg/dL Normal 0.2-1.3 [facility] Calcium [Mass/Vol] 9.5 mg/dL Normal 8.4-10.2 [facility] Chloride [Moles/Vol] 105 mmol/L Normal 98-107 [facility] Comment on above: Result Comment: Gilma medellin note: Triglyceride levels of 600mg/dL or higher may positively bias chloride results by approximately 2.1 mmol CO2 [Moles/Vol] 27 mmol/L Normal 22-30 [facility] Creatinine [Mass/Vol] 0.60 mg/dL Low 0.7-1.2 [facility] EST. GFR, 176 ml/min/1.73sq.m Normal [facility] EST. GFR,Non 145 ml/min/1.73sq.m Normal [facility] GFR Information Average GFR for 60-6 9 years old = 85. Normal [facility] Comment on above: Result Comment: [employer] Supervisor isaiah Kidney disease, GFR = <60. Kidney failure, GFR = <15. The GFR estimate is not adjusted for extreme body surface area or acute process, nor has it been validated for women or ethnic groups other than and . Glucose [Mass/Vol] 86 mg/dL Normal 70-100 [facility] Comment on above: Result Comment: NORMAL <100 mg/dL PREDIABETES 101-126 mg/dL DIABETES 126 mg/dL or higher Potassium [Moles/Vol] 4.0 mmol/L Normal 3.5-5.1 [facility] Protein [Mass/Vol] 7.1 g/dL Normal 6.3-8.2 [facility] Sodium [Moles/Vol] 141 mmol/L Normal 137-145 [facility] Urea nitrogen [Mass/Vol] 16 mg/dL Normal 7-20 [facility] LARGE JOINT/BURSA INJECTION AND/OR ASPIRATIONon 08-13-2023 Radiology Study observation (narrative) [facility] Office Visiton 08-13-2023 Follow-up visit [id number] Dorothea Alva 1960 M Provider Department Center 08/13/2023 DAVIDSON HOWELL VALENCIA Becker Family History Problem Relation Age of Onset Coronary artery disease Mother Coronary artery disease Father Family Status - Relation Status Age at Mother Father Level of Service:10146 [place] OFFICE/OUTPATIENT ESTABLISHED MOD [facility] 30-39 MIN Reason for Visit and Comments: Coronary Artery Disease [187] Chest Pain [832973] Pre-op Exam [011775] Hyperlipidemia [182] Hypertension [155819] [facility] Orders Onlyon 08-13-2023 Orders Only [id number] Dorothea Alva 1960 M Provider Department [place] 08/13/2023 ADA BALTAZAR VALENCIA Becker Family History Problem Relation Age of Onset Coronary artery disease Mother Coronary artery disease Father Family Status - Relation Status Age at Mother Father [facility] 36on 08-03-2023 36 Patient will need an appointment for further refills - thanks ! [facility] LARGE JOINT/BURSA INJECTION AND/OR ASPIRATIONon 07-16-2023 [...] fashion. The patient was prepped with Chloraprep. [facility] [place] Unspecified body regionon 07-16-2023 Image Storage This order is to facilitate the storage of the image. [facility] LARGE JOINT/BURSA INJECTION AND/OR ASPIRATIONon 06-17-2023 Radiology Study observation (narrative) [facility] LARGE JOINT/BURSA INJECTION AND/OR ASPIRATIONon 06-10-2023 [...] fashion. The patient was prepped with Chloraprep. [facility] [place] Unspecified body regionon 06-10-2023 Image Storage This order is to facilitate the storage of the image. [facility] LARGE JOINT/BURSA INJECTION AND/OR ASPIRATIONon 05-15-2023 Radiology Study observation (narrative) [facility] LARGE JOINT/BURSA INJECTION AND/OR ASPIRATIONon 04-18-2023 [...] fashion. The patient was prepped with Chloraprep. [facility] [place] Unspecified body regionon 04-18-2023 Image Storage This order is to facilitate the storage of the image. [facility] XR HIPS KOURTNEY 5V W PELVISon XR [...] LUIS CARLOS ENCARNACION Date: 2023-01-08 13:57 Normal [facility] XR LSPINE W_OBLS AND FLEX_EX [...] LUIS CARLOS ENCARNACION Date: 2023-01-08 14:00 Normal [facility] Hemoglobin A1Con 01-01-2023 Glucose [Mass/Vol] 114 mg/dL Normal [facility] Comment on above: Result Comment: The ADA and AACC recommend providing the estimated average glucose result to permit better patient understanding of their HBA1c result. Performed By: #### L IPR #### [address] [phone] Telegraph Messenger: Marshall Paulino MD HbA1c (Bld) [Mass fraction] 5.6 % Normal 4.0-6.0 [facility] Comment on above: Performed By: #### L IPR #### [address] [address] Telegraph Messenger: Marshall Paulino MD Basic Metab w/rfx MGon 12-31 Anion gap [Moles/Vol] 9 mmol/L Normal - [facility] Comment on above: Performed By: #### T DARYNI CDP, BMPX #### [facility] [address] [place] [address] Telegraph Messenger: Luis Carlos Del Castillo MD #### GLYHGB #### [address] [phone] Telegraph Messenger: Marshall Paulino MD BUN/CRE Ratio 39 High 9- [facility] Comment on above: Performed By: #### T DARYNI, CDP, BMPX #### [facility] [address] [place] [address] Telegraph Messenger: Luis Carlos Del Castillo MD #### GLYHGB #### [address] [place], [place] [phone] Telegraph Messenger: Marshall Paulino MD Calcium [Mass/Vol] 9.5 mg/dL Normal 8.6-10.4 [facility] Comment on above: Performed By: #### T ROPI, CDP, BMPX #### [facility] [address] [facility], [place] [phone] Telegraph Messenger: Luis Carlos Del Castillo MD #### GLYHGB #### [address] [place], [place] [phone] Telegraph Messenger: Marshall Paulino MD Chloride [Moles/Vol] 106 mmol/L Normal 98-107 [facility] Comment on above: Performed By: #### T ROPI, CDP, BMPX #### [facility] [address] [place] [phone] Telegraph Messenger: Luis Carlos Del Castillo MD #### GLYHGB #### [address] [place], [place] [phone] Telegraph Messenger: Marshall Paulino MD CO2 [Moles/Vol] 25 mmol/L Normal 20-31 [facility] Comment on above: Performed By: #### T ROPI, CDP, BMPX #### [facility] [address] [facility] [phone] Telegraph Messenger: Luis Carlos Del Castillo MD #### GLYHGB #### [address] [place] [address] Telegraph Messenger: Marshall Paulino MD Creatinine [Mass/Vol] 0.70 mg/dL Normal 0.70-1.20 [facility] Comment on above: Performed By: #### T ROPI, CDP, BMPX #### [facility] [address] [facility], [place] [phone] Telegraph Messenger: Luis Carlos Del Castillo MD #### GLYHGB #### [address] [place] [address] Telegraph Messenger: Marshall Paulino MD GFR/1.73 sq M.predicted among non-blacks MDRD (S/P/Bld) [Vol rate/Area] mL/min/{1.73_m2} Normal >60 [facility] Comment on above: Result Comment: [...] By: #### T GEE ALONZO, BMPX #### [facility] [address] [place] [address] [facility] [place] [address] Telegraph Messenger: Luis Carlos Del Castillo MD #### GLYHGB #### [address] [phone] Telegraph Messenger: Marshall Paulino MD Glucose [Mass/Vol] 103 mg/dL High 70-99 [facility] Comment on above: Performed By: #### T GEE ALONZO, BMPX #### [facility] [address] [place] [address] Dr[facility], [place] [phone] Telegraph Messenger: Luis Carlos Del Castillo MD #### GLYHGB #### [address] [address] Telegraph Messenger: Marshall Paulino MD Potassium [Moles/Vol] 4.3 mmol/L Normal 3.7-5.3 [facility] Comment on above: Performed By: #### T GEE ALONZO, BMPX #### [facility] [address] [place] [address] Dr[facility], [place] [phone] Telegraph Messenger: Luis Carlos Del Castillo MD #### GLYHGB #### [address] [phone] Telegraph Messenger: Marshall Paulino MD Sodium [Moles/Vol] 140 mmol/L Normal 135-144 [facility] Comment on above: Performed By: #### GEE ESPAÑA, BMPX #### [facility] [address] [place] [address] Telegraph Messenger: Luis Carlos Del Castillo MD #### GLYHGB #### [facility] [place] [address] [place], [place] [phone] Telegraph Messenger: Marshall Paulino MD Urea nitrogen [Mass/Vol] 27 mg/dL High 8-23 [facility] Comment on above: Performed By: #### GEE ESPAÑA, BMPX #### [facility] [address] [place] [address] Telegraph Messenger: Luis Carlos Del Castillo MD #### GLYHGB #### [facility] [address] [place], [place] [phone] Telegraph Messenger: Marshall Paulino MD Basic Metabolic Panel w/ Ref maria antonia to MGon 12-31-2022 Anion gap [Moles/Vol] 9 mmol/L 9 - 17 mmol/L [facility] Calcium [Mass/Vol] 9.5 mg/dL 8.6 - 10. 4 mg/dL [facility] Chloride [Moles/Vol] 106 mmol/L 98 - 10 7 mmol/L [facility] CO2 [Moles/Vol] 25 mmol/L 20 - 31 mmol/L [facility] Creatinine [Mass/Vol] 0.7 mg/dL 0.70 - 1.20 mg/dL [facility] GFR/1.73 sq M.predicted MDRD (S/P/Bld) [Vol rate/Area] - PINF [facility] Comment on above: These results are [...] 103 mg/dL High 70 - 99 mg/dL [facility] Interpretation and review of laboratory results Abnormal [facility] Potassium [Moles/Vol] 4.3 mmol/L 3.7 - 5.3 mmol/L [facility] Sodium [Moles/Vol] 140 mmol/L 135 - 144 mmol/L [facility] Urea nitrogen [Mass/Vol] 27 mg/dL High 8 - 23 mg/dL [facility] Urea nitrogen/Creatinine (Bld) [Mass ratio] 39 High 9 - 20 [facility] CARDIAC STRESS TESTon 2022 CARDIAC STRESS TEST [address] [id number] CARDIAC STRESS TEST PATIENT NAME: NOEL ALVA : 1960 MED REC NO: [id number] ROOM: [facility] ACCOUNT NO: [id number] ADMIT DATE: 12/30/2022 PROVIDER: Fany Mohr MD [...] MIRIAN/BILLY_EDIT Doc#: Unknown CC: Romario Man Normal [facility] CBC with Auto Differentialon 12-31-2022 Absolute Eos # 0.18 [place] [facility] Absolute Immature Granulocyte [facility] Absolute Lymph # 1.58 [facility] Absolute [place] # 0.72 [facility] Basophils (Bld) [#/Vol] 0.05 10*3/uL [facility] Interpretation and review of laboratory results Abnormal [facility] NRBC Automated 0.0 0.0 per 100 WBC [facility] Platelet distribution width (Bld) [Ratio] 13.9 % 11.8 - 14.4 % [facility] Segmented neutrophils/100 WBC (Bld) 62 % 36 - 65 % [facility] Segs Absolute 4.27 [facility] CBC with Diffon 12-31-2022 Abs. Basophil 0.05 k/uL Normal 0.00-0.20 [facility] Comment on above: Performed By: #### T GEE ALONZO, BMPX #### [facility] [address] [place] [address] Telegraph Messenger: Luis Carlos Del Castillo MD #### GLYHGB #### [place] [address] Telegraph Messenger: Marshall Paulino MD Abs.Imm.Granulocyte <0.03 Normal 0.00-0.30 [facility] Comment on above: Performed By: #### T GEE ALONZO, BMPX #### [facility] [address] [place] [address] Telegraph Messenger: Luis Carlos Del Castillo MD #### GLYHGB #### [place] [address] Telegraph Messenger: Marshall Paulino MD Abs.Neutrophil (Seg) 4.27 k/uL Normal 1.50-8.10 [facility] Comment on above: Performed By: #### T ROPI, CDP, BMPX #### [address] [facility], [place] [phone] Telegraph Messenger: Luis Carlos Del Castillo MD #### GLYHGB #### [address] [phone] Telegraph Messenger: Marshall Paulino MD Eosinophils (Bld) [#/Vol] 0.18 10*3/uL Normal 0.00-0.44 [facility] Comment on above: Performed By: #### T CHERI, CDP, BMPX #### [address] [place] [phone] Telegraph Messenger: Luis Carlos Del Castillo MD #### GLYHGB #### [address] [phone] Telegraph Messenger: Marshall Paulino MD Erythrocyte distribution width (RBC) [Ratio] 13.9 % Normal 11.8-14.4 [facility] Comment on above: Performed By: #### T CHERI CDP, BMPX #### [address] [place] [phone] Telegraph Messenger: Luis Carlos Del Castillo MD #### GLYHGB #### [address] [phone] Telegraph Messenger: Marshall Paulino MD Lymphocytes (Bld) [#/Vol] 1.58 10*3/uL Normal 1.10-3.70 [facility] Comment on above: Performed By: #### T CHERI, CDP, BMPX #### [address] [place] [address] Telegraph Messenger: Luis Carlos Del Castillo MD #### GLYHGB #### [address] [place], [place] [phone] Telegraph Messenger: Marshall Paulino MD Monocytes (Bld) [#/Vol] 0.72 10*3/uL Normal 0.10-1.20 [facility] Comment on above: Performed By: #### T ROPI, CDP, BMPX #### [facility] [address] [facility], [place] [phone] Telegraph Messenger: Luis Carlos Del Castillo MD #### GLYHGB #### [address] [phone] Telegraph Messenger: Marshall Paulino MD Neutrophil (Seg) 62 % Normal 36-65 [facility] Comment on above: Performed By: #### T ROPI, CDP, BMPX #### [facility] [address] [place] [address] [facility], [place] [phone] Telegraph Messenger: Luis Carlos Del Castillo MD #### GLYHGB #### [address] [phone] Telegraph Messenger: Marshall Paulino MD NRBC Automated 0.0 per 100 WBC Normal 0.0 [facility] Comment on above: Performed By: #### T ROPI, CDP, BMPX #### [facility] [address] [place] [address] [facility], [place] [phone] Telegraph Messenger: Luis Carlos Del Castillo MD #### GLYHGB #### [address] [phone] Telegraph Messenger: Marshall Paulino MD Basophils/100 WBC (Bld) 1 % Normal 0-2 [facility] Comment on above: Performed By: #### T ROPI, CDP, BMPX #### [facility] [address] [place] [address] [facility], [place] [phone] Telegraph Messenger: Luis Carlos Del Castillo MD #### GLYHGB #### [address] [address] Telegraph Messenger: Marshall Paulino MD Eosinophils/100 WBC (Bld) 3 % Normal 1-4 [facility] Comment on above: Performed By: #### T ROPI, CDP, BMPX #### [address] [place] [phone] Telegraph Messenger: Luis Carlos Del Castillo MD #### GLYHGB #### [address] [phone] Telegraph Messenger: Marshall Paulino MD Hematocrit (Bld) [Volume fraction] 40.4 % Low 40.7-50.3 [facility] Comment on above: Performed By: #### T ROPI, CDP, BMPX #### [address] [place] [phone] Telegraph Messenger: Luis Carlos Del Castillo MD #### GLYHGB #### [place] [phone] Telegraph Messenger: Marshall Paulino MD Hemoglobin (Bld) [Mass/Vol] 13.5 g/dL Normal 13.0-17.0 [facility] Comment on above: Performed By: #### T ROPI, CDP, BMPX #### [address] [place] [phone] Telegraph Messenger: Luis Carlos Del Castillo MD #### GLYHGB #### [place] [phone] Telegraph Messenger: Marshall Paulino MD Immature granulocytes/100 WBC (Bld) 0 % Normal 0 [facility] Comment on above: Performed By: #### T ROPI, CDP, BMPX #### [address] [place] [phone] Telegraph Messenger: Luis Carlos Del Castillo MD #### GLYHGB #### [place] [phone] Telegraph Messenger: Marshall Paulino MD Lymphocytes/100 WBC (Bld) 23 % Low 24-43 [facility] Comment on above: Performed By: #### T ROPI, CDP, BMPX #### [address] [place] [address] Telegraph Messenger: Luis Carlos Del Castillo MD #### GLYHGB #### [address] [phone] Telegraph Messenger: Marshall Paulino MD MCH (RBC) [Entitic mass] 31.2 pg Normal 25.2-33.5 [facility] Comment on above: Performed By: #### T CHERI, CDP, BMPX #### [address] [place] [address] Telegraph Messenger: Luis Carlos Del Castillo MD #### GLYHGB #### [address] [place] [phone] Telegraph Messenger: Marshall Paulino MD MCHC (RBC) [Mass/Vol] 33.4 g/dL Normal 28.4-34.8 [facility] Comment on above: Performed By: #### T CHERI CDP, BMPX #### [address] [place] [address] Telegraph Messenger: Luis Carlos Del Castillo MD #### GLYHGB #### [place] [phone] [employer] Messenger: Marshall Paulino MD MCV (RBC) [Entitic vol] 93.3 fL Normal 82.6-102.9 [facility] Comment on above: Performed By: #### T CHERI, CDP, BMPX #### [address] [place] [address] Telegraph Messenger: Luis Carlos Del Castillo MD #### GLYHGB #### [address] [phone] Telegraph Messenger: Marshall Paulino MD Monocytes/100 WBC (Bld) 11 % Normal 3-12 [facility] Comment on above: Performed By: #### T ROPI, CDP, BMPX #### [address] [facility], [place] [phone] [employer] Messenger: Luis Carlos Del Castillo MD #### GLYHGB #### [address] [phone] Telegraph Messenger: Marshall Paulino MD Platelet mean volume (Bld) [Entitic vol] 10.1 fL Normal 8.1-13.5 [facility] Comment on above: Performed By: #### T ROPI, CDP, BMPX #### [address] [place] [phone] Telegraph Messenger: Luis Carlos Del Castillo MD #### GLYHGB #### [address] [phone] Telegraph Messenger: Marshall Paulino MD Platelets (Bld) [#/Vol] 190 10*3/uL Normal 138-453 [facility] Comment on above: Performed By: #### T CHERI, CDP, BMPX #### [address] [place] [phone] [employer] Messenger: Luis Carlos Del Castillo MD #### GLYHGB #### [address] [phone] Telegraph Messenger: Marshall Paulino MD RBC (Bld) [#/Vol] 4.33 10*6/uL Normal 4.21-5.77 [facility] Comment on above: Performed By: #### T ROPLiane, CDP, BMPX #### [address] [place] [address] [employer] Messenger: Luis Carlos Del Castillo MD #### GLYHGB #### [address] [phone] Telegraph Messenger: Marshall Paulino MD WBC (Bld) [#/Vol] 6.8 10*3/uL Normal 3.5-11.3 [facility] Comment on above: Performed By: #### T CHERI, CDP, BMPX #### [facility] [address] [place] [address] Telegraph Messenger: Luis Carlos Del Castillo MD #### GLYHGB #### [address] [place] [address] Telegraph Messenger: Marshall Paulino MD EKG 12 leadon 12-31-2022 Atrial Rate 51 BPM [employer] Work Phone: P [place] 51 degrees [employer] Work Phone: P-R Interval 144 ms [facility] [employer] Work Phone: Q-T Interval 490 ms [employer] Work Phone: QRS Duration 72 ms [employer] Work Phone: QTc Calculation (Bazett) 451 ms [employer] Work Phone: R [place] 47 degrees [employer] Work Phone: T [place] 91 degrees [employer] Work Phone: Ventricular Rate 51 BPM [facility] [employer] Work Phone: Sinus bradycardia T wave abnormality, consider lateral ischemia Abnormal ECG When compared with ECG of 30-DEC-2022 06:16, Inverted T waves have replaced nonspecific T wave abnormality in Anterior leads QT has lengthened Confirmed by Fany Mohr MD ([id number]) on 12/31/2022 1:07:24 PM [facility] Fany Mohr MD - 12/31/2022 Sinus bradycardia T wave abnormality, consider lateral ischemia Abnormal ECG When compared with ECG of 30-DEC-2022 06:16, Inverted T waves have replaced nonspecific T wave abnormality in Anterior leads QT has lengthened Confirmed by Fany Mohr MD ([id number]) on 12/31/2022 1:07:24 PM [facility] Work Phone: [facility] Work Phone: EKG Rhythm Stripon 3 [facility] Lipid Panelon 12-31-2022 Cholesterol [Mass/Vol] 103 mg/dL NINF - 200 mg/dL [facility] Comment on above: Cholesterol Guidelines: <200 Desirable 200-240 Borderline >240 Undesirable Cholesterol in HDL [Mass/Vol] 44 mg/dL 40 - PINF mg/dL [facility] Comment on above: HDL Guidelines: <40 Undesirable 40-59 Borderline >59 Desirable Cholesterol in LDL [Mass/Vol] 46 mg/dL 0 - 130 mg/dL [facility] Comment on above: LDL Guidelines: <100 Desirable 100-129 Near to/above Desirable 130-159 Borderline >159 Undesirable Direct (measured) LDL and calculated LDL are not interchangeable tests. Cholesterol.total/Ch olesterol in HDL [Mass ratio] 2.3 {ratio} NINF - 5 [facility] Triglyceride [Mass/Vol] 67 mg/dL NINF - 150 mg/dL [facility] Comment on above: Triglyceride Guidelines: <150 Desirable 150-199 Borderline 200-499 High >499 Very high Based on AHA Guidelines for fasting triglyceride, July 2012. [facility] Lipid Profileon 12-31-2022 Cholesterol [Mass/Vol] 103 mg/dL Normal <200 [facility] Comment on above: Result Comment: Cholesterol Guidelines: <200 Desirable 200-240 Borderline >240 Undesirable Performed By: #### L IPR #### [address] [place] [address] Telegraph Messenger: Marshall Paulino MD Cholesterol in HDL [Mass/Vol] 44 mg/dL Normal >40 [facility] Comment on above: Result Comment: HDL Guidelines: <40 Undesirable 40-59 Borderline >59 Desirable Performed By: #### L IPR #### [address] [place] [address] Telegraph Messenger: Marshall Paulino MD Cholesterol in LDL [Mass/Vol] 46 mg/dL Normal 0-130 [facility] Comment on above: Result Comment: LDL Guidelines: <100 Desirable 100-129 Near to/above Desirable 130-159 Borderline >159 Undesirable Direct (measured) LDL and calculated LDL are not interchangeable tests. Performed By: #### L IPR #### [address] [phone] Telegraph Messenger: Marshall Paulino MD Cholesterol.total/Ch olesterol in HDL [Mass ratio] 2.3 {ratio} Normal <5 [facility] Comment on above: Performed By: #### L IPR #### [address] [phone] Telegraph Messenger: Marshall Paulino MD Triglyceride [Mass/Vol] 67 mg/dL Normal <150 [facility] Comment on above: Result Comment: Triglyceride Guidelines: <150 Desirable 150-199 Borderline 200-499 High >499 Very high Based on AHA Guidelines for fasting triglyceride, July 2012. Performed By: #### L IPR #### [address] [phone] Telegraph Messenger: Marshall Paulino MD Resp Viral Panelon 3 Adenovirus Not detected Normal [facility] Comment on above: Performed By: #### L IPR #### [facility] [address] [place] [phone] Telegraph Messenger: MD Marissa Martin.parapertussis Not detected [facility] Comment on above: Performed By: #### L IPR #### [facility] [address] [place] [phone] Telegraph Messenger: MD Elizabeth Martindetella pertussis Not detected Normal [facility] Comment on above: Performed By: #### L IPR #### [facility] [address] [place] [address] Telegraph Messenger: Marshall Paulino MD Chlamyd.pneumoniae Not detected Normal [facility] Comment on above: Performed By: #### L IPR #### [facility] [address] [place] [phone] [employer] Messenger: Marshall Paulino MD Coronavirus 229E Not detected Normal [facility] Comment on above: Performed By: #### L IPR #### [facility] [address] [place] [phone] [employer] Messenger: Marshall Paulino MD Coronavirus HKU1 Not detected Normal [facility] Comment on above: Performed By: #### L IPR #### [address] [phone] Telegraph Messenger: Marshall Paulino MD Coronavirus NL63 Not detected Normal [facility] Comment on above: Performed By: #### L IPR #### [address] [phone] Telegraph Messenger: Marshall Paulino MD Coronavirus OC43 Not detected Normal [facility] Comment on above: Performed By: #### L IPR #### [address] [phone] Telegraph Messenger: Marshall Paulino MD Human Metapneumo Not detected Normal [facility] Comment on above: Performed By: #### L IPR #### [facility] [address] [place] [address] Telegraph Messenger: Marshall Paulino MD Influenza A Not detected Normal [facility] Comment on above: Performed By: #### L IPR #### [facility] [address] [place] [phone] [employer] Messenger: Marshall Paulino MD Influenza B Not detected Normal [facility] Comment on above: Performed By: #### L IPR #### [facility] [address] [place] [phone] Telegraph Messenger: Marshall Paulino MD Mycoplas.pneumoniae Not detected Normal [facility] Comment on above: Result Comment: Perf ormed by multiplexed nucleic acid assay. Performed By: #### L IPR #### [address] [phone] Telegraph Messenger: Marshall Paulino MD Parainfluenza 1 Not detected Normal [facility] Comment on above: Performed By: #### L IPR #### [facility] [address] [place] [phone] Telegraph Messenger: Marshall Paulino MD Parainfluenza 2 Not detected Normal [facility] Comment on above: Performed By: #### L IPR #### [facility] [address] [place] [address] Telegraph Messenger: Marshall Paulino MD Parainfluenza 3 Not detected Normal [facility] Comment on above: Performed By: #### L IPR #### [facility] [address] [place] [address] Telegraph Messenger: Marshall Paulino MD Parainfluenza 4 Not detected Normal [facility] Comment on above: Performed By: #### L IPR #### [facility] [address] [place] [phone] Telegraph Messenger: Marshall Paulino MD Resp Syncytial Virus Not detected Normal [facility] Comment on above: Performed By: #### L IPR #### [facility] [address] [place] [phone] Telegraph Messenger: Marshall Paulino MD Rhino/Enterovirus Not detected Normal [facility] Comment on above: Performed By: #### L IPR #### [facility] [address] [place] [phone] Telegraph Messenger: Marshall Paulino MD SARS-CoV-2 (COVID-19) RNA DAHLIA+probe Ql (Unsp spec) Not detected Normal NOTDET [facility] Comment on above: Performed By: #### L IPR #### [facility] [address] [place] [address] Telegraph Messenger: Marshall Paulino MD Respiratory Panel, Molecular , with COVID-19 (Restricted: peds pts or suitable admitted adults)on 12-31-2022 Adenovirus PCR Not detected Not Detected [facility] B. parapertussis [id number] DNA DAHLIA+non-probe Ql (Nph) Not detected Not Detected [facility] B. pertussis DNA DAHLIA+probe Ql (Unsp spec) Not detected Not Detected [facility] Chlamydia pneumoniae By PCR Not detected Not Detected [facility] Coronavirus 229E PCR Not detected Not Detected [facility] Coronavirus HKU1 PCR Not detected Not Detected [facility] Coronavirus NL63 PCR Not detected Not Detected [facility] Coronavirus OC43 PCR Not detected Not Detected [facility] FLUAV RNA DAHLIA+non-probe Ql (Nph) Not detected Not Detected [facility] FLUBV RNA DAHLIA+non-probe Ql (Nph) Not detected Not Detected [facility] Human Metapneumovirus PCR Not detected Not Detected [facility] Mycoplasma pneumo by PCR Not detected Not Detected [facility] Comment on above: Performed by multipl exed nucleic acid assay. Parainfluenza 1 PCR Not detected Not Detected [facility] Parainfluenza 2 PCR Not detected Not Detected [facility] Parainfluenza 3 PCR Not detected Not Detected [facility] Parainfluenza 4 PCR Not detected Not Detected [facility] Resp Syncytial Virus PCR Not detected Not Detected [facility] Rhino/Enterovirus PCR Not detected Not Detected [facility] SARS-CoV-2 (COVID-19) RNA DAHLIA+non-probe Ql (Nph) Not detected Not Detected [facility] Specimen Description .NASOPHARYNGEAL SWAB [facility] Troponinon 12-31-2022 Troponin, High Sens 18 ng/L Normal 0-22 [facility] Comment on above: Result Comment: High Sensitivity Troponin values cannot be compared with other Troponin methodologies. Performed By: #### T DARYNI, CDP, BMPX #### [facility] [address] [place] [address] [employer] Messenger: Luis Carlos Del Castillo MD #### GLYHGB #### [place] [id number] [place] [address] [employer] Messenger: Marshall Paulino MD Troponin I.cardiac DL <= 0.01 ng/mL [Mass/Vol] 18 ng/L 0 - 22 ng/L [facility] Comment on above: High Sensitivity Tro ponin values cannot be compared with other Troponin methodologies. [facility] Brain Natri. Peptideon 12-30 Natriuretic peptide B (Bld) [Mass/Vol] 308 pg/mL High <300 [facility] Comment on above: Result Comment: An age-independent cutoff point of 300 pg/ml has a 98% negative predictive value excluding acute heart failure. Performed By: #### B INSTRUMENT MAN #### [facility] [address] [place] [address] [employer] Messenger: Luis Carlos Del Castillo MD Brain Natriuretic Peptideon 12-30-2022 Interpretation and review of laboratory results Abnormal [facility] Natriuretic peptide B (Bld) [Mass/Vol] 308 pg/mL High NINF - 300 pg/mL [facility] Comment on above: An age-independent cutoff point of 300 pg/ml has a 98% negative predictive value excluding acute heart failure. [facility] CBC with Auto Differentialon 12-30-2022 Absolute Eos # 0.07 [facility] Absolute Immature Granulocyte 0.04 [facility] Absolute Lymph # 1.83 [facility] Absolute [place] # 0.91 [facility] RS [facility] Basophils (Bld) [#/Vol] 0.06 10*3/uL [facility] Basophils/100 WBC (Bld) 1 % 0 - 2 % [facility] Eosinophils/100 WBC (Bld) 1 % 1 - 4 % [facility] Hematocrit (Bld) [Volume fraction] 39.6 % Low 40.7 - 50.3 % [facility] Hemoglobin (Bld) [Mass/Vol] 13.8 g/dL 13.0 - 17.0 g/dL [facility] Immature granulocytes/100 WBC (Bld) 0 % 0 [facility] Interpretation and review of laboratory results Abnormal [facility] Lymphocytes/100 WBC (Bld) 18 % Low 24 - 43 % [facility] MCH (RBC) [Entitic mass] 31.8 pg 25.2 - 33.5 pg [facility] MCHC (RBC) [Mass/Vol] 34.8 g/dL 28.4 - 34.8 g/dL [facility] MCV (RBC) [Entitic vol] 91.2 fL 82.6 - 102.9 fL [facility] Monocytes/100 WBC (Bld) 9 % 3 - 12 % [facility] NRBC Automated 0.0 0.0 per 100 WBC [facility] Platelet distribution width (Bld) [Ratio] 13.5 % 11.8 - 14.4 % [facility] Platelet mean volume (Bld) [Entitic vol] 9.9 fL 8.1 - 13.5 fL [facility] Platelets (Bld) [#/Vol] 189 10*3/uL [facility] RBC (Bld) [#/Vol] 4.34 10*6/uL 4.21 - 5.77 m/uL [facility] Segmented neutrophils/100 WBC (Bld) 71 % High 36 - 65 % [facility] Segs Absolute 7.15 [facility] WBC (Bld) [#/Vol] 10.1 10*3/uL [facility] CBC with Diffon 12-30-2022 Abs. Basophil 0.06 k/uL Normal 0.00-0.20 [facility] Comment on above: Performed By: #### T NATHAN ALONZO, CDP #### [facility] [address] [place] [address] [employer] Messenger: Luis Carlos Del Castillo MD Abs.Imm.Granulocyte 0.04 k/uL Normal 0.00-0.30 [facility] Comment on above: Performed By: #### Ileana ALONZO CP, CDP #### [address] [place], [place] [phone] [employer] Messenger: Luis Carlos Del Castillo MD Abs.Neutrophil (Seg) 7.15 k/uL Normal 1.50-8.10 [facility] Comment on above: Performed By: #### Ileana ALONZO CP, CDP #### [address] [place], [place] [phone] [employer] Messenger: Luis Carlos Del Castillo MD Basophils/100 WBC (Bld) 1 % Normal 0-2 [facility] Comment on above: Performed By: #### Ileana ALONZO CP, CDP #### [address] [place], [place] [address] Telegraph Messenger: Luis Carlos Del Castillo MD Eosinophils (Bld) [#/Vol] 0.07 10*3/uL Normal 0.00-0.44 [facility] Comment on above: Performed By: #### Ileana ALONZO CP, CDP #### [address] [place], [place] [phone] [employer] Messenger: Luis Carlos Del Castillo MD Eosinophils/100 WBC (Bld) 1 % Normal 1-4 [facility] Comment on above: Performed By: #### Ileana ALONZO CP, CDP #### [address] [place], [facility]83 Telegraph Messenger: Luis Carlos Del Castillo MD Erythrocyte distribution width (RBC) [Ratio] 13.5 % Normal 11.8-14.4 [facility] Comment on above: Performed By: #### Ileana ALONZO CP, CDP #### [address] [place], [place] [phone] [employer] Messenger: Luis Carlos Del Castillo MD Hematocrit (Bld) [Volume fraction] 39.6 % Low 40.7-50.3 [facility] Comment on above: Performed By: #### Ileana ALONZO CP, CDP #### [facility] [address] [place], [place] [phone] [employer] Messenger: Luis Carlos Del Castillo MD Hemoglobin (Bld) [Mass/Vol] 13.8 g/dL Normal 13.0-17.0 [facility] Comment on above: Performed By: #### Ileana ALONZO CP, CDP #### [facility] [address] [place], [place] [phone] [employer] Messenger: Luis Carlos Del Castillo MD Immature granulocytes/100 WBC (Bld) 0 % Normal 0 [facility] Comment on above: Performed By: #### Ileana ALONZO CP, CDP #### [address] [place], [facility]83 [employer] Messenger: Luis Carlos Del Castillo MD Lymphocytes (Bld) [#/Vol] 1.83 10*3/uL Normal 1.10-3.70 [facility] Comment on above: Performed By: #### Ileana ALONZO CP, CDP #### [address] [place], [facility]83 [employer] Messenger: Luis Carlos Del Castillo MD Lymphocytes/100 WBC (Bld) 18 % Low 24-43 [facility] Comment on above: Performed By: #### Ileana ALONZO CP, CDP #### [facility] [address] [place] [address] Dr. [place], [facility]83 [employer] Messenger: Luis Carlos Del Castillo MD MCH (RBC) [Entitic mass] 31.8 pg Normal 25.2-33.5 [facility] Comment on above: Performed By: #### Ileana ALONZO CP, CDP #### [address] [place], [place] [phone] [employer] Messenger: Luis Carlos Del Castillo MD MCHC (RBC) [Mass/Vol] 34.8 g/dL Normal 28.4-34.8 [facility] Comment on above: Performed By: #### Ileana ALONZO CP, CDP #### [facility] [address] [place], [place] [phone] [employer] Messenger: Luis Carlos Del Castillo MD MCV (RBC) [Entitic vol] 91.2 fL Normal 82.6-102.9 [facility] Comment on above: Performed By: #### Ileana ALONZO CP, CDP #### [address] [place], [place] [phone] [employer] Messenger: Luis Carlos Del Castillo MD Monocytes (Bld) [#/Vol] 0.91 10*3/uL Normal 0.10-1.20 [facility] Comment on above: Performed By: #### Ileana ALONZO CP, CDP #### [address] [place], [facility]83 [employer] Messenger: Luis Carlos Del Castillo MD Monocytes/100 WBC (Bld) 9 % Normal 3-12 [facility] Comment on above: Performed By: #### Ileana ALONZO CP, CDP #### [address] [place] [address] [employer] Messenger: Luis Carlos Del Castillo MD Neutrophil (Seg) 71 % High 36-65 [facility] Comment on above: Performed By: #### Ileana ALONZO CP, CDP #### [address] [place], [place] [phone] [employer] Messenger: Luis Carlos Del Castillo MD NRBC Automated 0.0 per 100 WBC Normal 0.0 [facility] Comment on above: Performed By: #### Ileana ALONZO CP, CDP #### [address] [place] [address] [employer] Messenger: Luis Carlos Del Castillo MD Platelet mean volume (Bld) [Entitic vol] 9.9 fL Normal 8.1-13.5 [facility] Comment on above: Performed By: #### T NATHAN ALONZO, CDP #### [facility] [address] [place], [place] [phone] [employer] Messenger: Luis Carlos Del Castillo MD Platelets (Bld) [#/Vol] 189 10*3/uL Normal 138-453 [facility] Comment on above: Performed By: #### Ileana ALONZO CP, CDP #### [facility] [address] [place], [place] [phone] [employer]: Luis Carlos Del Castillo MD RBC (Bld) [#/Vol] 4.34 10*6/uL Normal 4.21-5.77 [facility] Comment on above: Performed By: #### Ileana ALONZO CP, CDP #### [facility] [address] [place] [address] [place] [address] [employer] Messenger: Luis Carlos Del Castillo MD WBC (Bld) [#/Vol] 10.1 10*3/uL Normal 3.5-11.3 [facility] Comment on above: Performed By: #### Ileana ALONZO CP, CDP #### [facility] [address] [place] [address] Dr. [place], [place] [phone] [employer]: Luis Carlos Del Castillo MD COVID-19, Rapidon 12-30-2022 SARS-CoV-2 (COVID-19) RdRp gene DAHLIA+probe Ql (Resp) Not detected Not Detected [facility] Comment on above: Rapid NAAT: The [...] management decisions. Fact sheet for Healthcare Providers: https://www.fda.gov/media/142735/download Fact sheet for Patients: https://www.fda.gov/media/510172/download Methodology: Isothermal Nucleic Acid Amplification Specimen Description .NASOPHARYNGEAL SWAB [facility] CT CHEST PULMONARY EMBOLISM W CONTRASTon 12-30-2022 [...] Dov Love MD 12/30/22 Final result Normal [facility] Negative for acute pulmonary embolus [...] helpful for further evaluation if clinically indicated. [facility] [employer] Work Phone: Radiology Study observation (narrative) [facility] [email or web address] Phone: CT CHEST PULMONARY EMBOLISM W CONTRASTOrdered By: Dov Love on 12-30-2022 [facility] [email or web address] Phone: Comp Metabolic Profon 2022 Albumin [Mass/Vol] 3.9 g/dL Normal 3.5-5.2 [facility] Comment on above: Performed By: #### Ileana ALONZO CP, CDP #### [facility] [address] [place] [address] [employer] Messenger: Luis Carlos Del Castillo MD Albumin/Glob Ratio 1.3 Normal 1.0-2.5 [facility] Comment on above: Performed By: #### Ileana ALONZO CP, CDP #### [facility] [address] [place] [address] [employer] Messenger: Luis Carlos Del Castillo MD Alkaline Phos 102 U/L Normal 40-129 [facility] Comment on above: Performed By: #### Ileana ALONZO CP, CDP #### [facility] [address] [place], [place] [phone] [employer] Messenger: Luis Carlos Del Castillo MD ALT [Catalytic activity/Vol] 19 U/L Normal 5-41 [facility] Comment on above: Performed By: #### Ileana ALONZO CP, CDP #### [facility] [address] [place] [address] [employer] Messenger: Luis Carlos Del Castillo MD Anion gap [Moles/Vol] 10 mmol/L Normal 9-17 [facility] Comment on above: Performed By: #### T NATHAN ALONZO, CDP #### [facility] [address] [place], [place] [phone] [employer] Messenger: Luis Carlos Del Castillo MD AST [Catalytic activity/Vol] 16 U/L Normal <40 [facility] Comment on above: Performed By: #### T CHERI CP, CDP #### [facility] [address] [place], [place] [id number] Telegraph Messenger: Luis Carlos Del Castillo MD Bilirubin [Mass/Vol] 0.8 mg/dL Normal 0.3-1.2 [facility] Comment on above: Performed By: #### T NATHAN ALONZO, CDP #### [address] [place], [place] [phone] Telegraph Messenger: Luis Carlos Del Castillo MD BUN/CRE Ratio 25 High 9-20 [facility] Comment on above: Performed By: #### T NATHAN ALONZO, CDP #### [address] [place], [place] [phone] Telegraph Messenger: Luis Carlos Del Castillo MD Calcium [Mass/Vol] 9.5 mg/dL Normal 8.6-10.4 [facility] Comment on above: Performed By: #### T NATHAN ALONZO, CDP #### [address] [place], [place] [phone] Telegraph Messenger: Luis Carlos Del Castillo MD Chloride [Moles/Vol] 105 mmol/L Normal 98-107 [facility] Comment on above: Performed By: #### T NATHAN ALONZO, CDP #### [facility] [address] [place], [place] [phone] Telegraph Messenger: Luis Carlos Del Castillo MD CO2 [Moles/Vol] 24 mmol/L Normal 20-31 [facility] Comment on above: Performed By: #### T CHERI CP, CDP #### [facility] [address] [place] [address] Telegraph Messenger: Luis Carlos Del Castillo MD Creatinine [Mass/Vol] 0.63 mg/dL Low 0.70-1.20 [facility] Comment on above: Performed By: #### Ileana ALONZO CP, CDP #### [facility] [address] [place] [address] Telegraph Messenger: Luis Carlos Del Castillo MD GFR/1.73 sq M.predicted among non-blacks MDRD (S/P/Bld) [Vol rate/Area] mL/min/{1.73_m2} Normal >60 [facility] Comment on above: Result Comment: [...] By: #### Ileana ALONZO CP, CDP #### [facility] [address] [place] [address] [place] [address] Telegraph Messenger: Luis Carlos Del Castillo MD Glucose [Mass/Vol] 113 mg/dL High 70-99 [facility] Comment on above: Performed By: #### Ileana ALONZO CP, CDP #### [address] [place] [address] Telegraph Messenger: Luis Carlos Del Castillo MD Potassium [Moles/Vol] 3.9 mmol/L Normal 3.7-5.3 [facility] Comment on above: Performed By: #### Ileana ALONZO CP, CDP #### [address] [place] [address] Telegraph Messenger: Luis Carlos Del Castillo MD Protein [Mass/Vol] 7.0 g/dL Normal 6.4-8.3 [facility] Comment on above: Performed By: #### Ileana ALONZO CP, CDP #### [facility] [address] [place] [address] Telegraph Messenger: Luis Carlos Del Castillo MD Sodium [Moles/Vol] 139 mmol/L Normal 135-144 [facility] Comment on above: Performed By: #### T NATHAN ALONZO, CDP #### [facility] [address] [place] [address] Telegraph Messenger: Luis Carlos Del Castillo MD Urea nitrogen [Mass/Vol] 16 mg/dL Normal 8-23 [facility] Comment on above: Performed By: #### T NATHAN ALONZO, CDP #### [facility] [address] [place] [address] Telegraph Messenger: Luis Carlos Del Castillo MD Comprehensive Metabolic Pane [facility] 12-30-2022 Albumin [Mass/Vol] 3.9 g/dL 3.5 - 5.2 g/dL [facility] Albumin/Globulin [Mass ratio] 1.3 {ratio} 1.0 - 2.5 [facility] ALP [Catalytic activity/Vol] 102 U/L 40 - 129 U/L [facility] ALT [Catalytic activity/Vol] 19 U/L 5 - 41 U/L [facility] Anion gap [Moles/Vol] 10 mmol/L 9 - 17 mmol/L [facility] AST [Catalytic activity/Vol] 16 U/L NINF - 40 U/L [facility] Bilirubin [Mass/Vol] 0.8 mg/dL 0.3 - 1 .2 mg/dL [facility] Calcium [Mass/Vol] 9.5 mg/dL 8.6 - 10. 4 mg/dL [facility] Chloride [Moles/Vol] 105 mmol/L 98 - 10 7 mmol/L [facility] CO2 [Moles/Vol] 24 mmol/L 20 - 31 mmol/L [facility] Creatinine [Mass/Vol] 0.63 mg/dL Low 0.70 - 1.20 mg/dL [facility] GFR/1.73 sq M.predicted MDRD (S/P/Bld) [Vol rate/Area] - PINF [employer] Comment on above: These results are not [...] 113 mg/dL High 70 - 99 mg/dL [employer] Interpretation and review of laboratory results Abnormal [employer] Potassium [Moles/Vol] 3.9 mmol/L 3.7 - 5.3 mmol/L [employer] Protein [Mass/Vol] 7.0 g/dL 6.4 - 8.3 g/dL [employer] Sodium [Moles/Vol] 139 mmol/L 135 - 144 mmol/L [employer] Urea nitrogen [Mass/Vol] 16 mg/dL 8 - 23 mg/dL [employer] (formerly known as [employer]) Urea nitrogen/Creatinine (Bld) [Mass ratio] 25 High 9 - 20 [employer] [facility] (formerly known as [employer]) EKG 12 Leadon 12-30-2022 Atrial Rate 51 BPM [employer] Work Phone: P [place] 39 degrees [employer] Work Phone: P-R Interval 146 ms [employer] Work Phone: Q-T Interval 424 ms [employer] Work Phone: QRS Duration 72 ms [employer] Work Phone: QTc Calculation (Bazett) 390 ms [employer] Work Phone: R [place] 56 degrees [employer] Work Phone: T [place] 73 degrees [employer] Work Phone: Ventricular Rate 51 BPM [facility] [employer] Work Phone: Poor data qualit y, interpretation may be adversely affected Sinus bradycardia Nonspecific ST and T wave abnormality Abnormal ECG Confirmed by Fany Mohr MD ([id number]) on 12/30/2022 8:21:48 AM [facility] aFny Mohr MD - 12/30/2022 Poor data quality, interpretation may be adversely affected Sinus bradycardia Nonspecific ST and T wave abnormality Abnormal ECG Confirmed by Fany Mohr MD ([id number]) on 12/30/2022 8:21:48 AM [facility] [employer] Work Phone: [facility] [employer] Phone: EKG Rhythm Stripon 3 [facility] Echocardiogram complete 2D w ith doppler with coloron 12-30-2022 Left ventricular Ejection fraction 55 [facility] [email or web address] Phone: LVEF MODALITY ECHO [facility] [email or web address] Phone: [facility] Transthoracic Echocardiography Report (TTE) Patient Name ALVA Date of Study 12/30/2022 NOEL Vaca Date of 1960 Gender Male Age 62 year(s) Race Room Number 0327 Height: 66 inch, 167.64 cm Corporate ID [id number] Weight: 160 pounds, 72.6 kg # Patient Acct [id number] BSA: 1.82 m^2 BMI: 25.82 kg/m^2 # MR # [id number] Childcare Teacher Keke Tineo Interpreting Physician Fany Mohr Fellow Referring Nurse Cece Villalobos, Practitioner SREEDHAR Interpreting Referring Physician Fellow Type of Study TTE procedure:2D Echocardiogram, M-Mode, Doppler, Color Doppler. Procedure Date Date: 12/30/2022 Start: 02:20 PM Study Location: [facility] Indications:Chest pain. History / Tech. [...] MD / Result, Unknown Provider - 12/30/2022 [facility] Transthoracic Echocardiography Report (TTE) Patient Name ALVA Date of Study 12/30/2022 NOEL Vaca Date of 1960 Gender Male Age 62 year(s) Race Room Number 0327 Height: 66 inch, 167.64 cm Corporate ID [id number] Weight: 160 pounds, 72.6 kg # Patient Acct [id number] BSA: 1.82 m^2 BMI: 25.82 kg/m^2 # MR # [id number] Childcare Teacher Keke Tineo Interpreting Physician Fany Mohr Fellow Referring Nurse Cece Villalobos, Practitioner SREEDHAR Interpreting Referring Physician Fellow Type of Study TTE procedure:2D Echocardiogram, M-Mode, Doppler, Color Doppler. Procedure Date Date: 12/30/2022 Start: 02:20 PM Study Location: [facility] Indications:Chest pain. History / Tech. [...] E' velocity:0.12 m/s Lateral Wall E/E':6.28 [facility] [employer] Work Phone: [facility] [employer] Work Phone: Resp Viral Panelon 3 Source: .NASOPHARYNGEAL SWAB Normal [facility] Comment on above: Performed By: #### L IPR #### [facility] [address] [place] [address] Telegraph Messenger: Marshall Paulino MD [id number] 12-30-2022 SARS-CoV-2 (COVID-19) RNA DAHLIA+probe Ql (Unsp spec) Not detected [facility] Comment on above: Result Comment: Rapid [...] management decisions. Fact sheet for Healthcare Providers: https://www.fda.gov/media/014553/download Fact sheet for Patients: https://www.fda.gov/media/898287/download Methodology: Isothermal Nucleic Acid Amplification Performed By: #### L IPR #### [facility] [place] [address] Telegraph Messenger: Marshall Paulino MD Troponinon 12-30-2022 Troponin, High Sens 17 ng/L Normal 0-22 [facility] Comment on above: Result Comment: High Sensitivity Troponin values cannot be compared with other Troponin methodologies. Performed By: #### L IPR #### [facility] [address] [place] [address] Telegraph Messenger: Marshall Paulino MD Troponin, High Sens 19 ng/L Normal 0-22 [facility] Comment on above: Result Comment: High Sensitivity Troponin values cannot be compared with other Troponin methodologies. Performed By: #### T NATHAN ALONZO, CDP #### [facility] [address] [place] [address] Telegraph Messenger: Luis Carlos Del Castillo MD Troponin I.cardiac DL <= 0.01 ng/mL [Mass/Vol] 17 ng/L 0 - 22 ng/L [facility] Comment on above: High Sensitivity Tro ponin values cannot be compared with other Troponin methodologies. [facility] Troponin I.cardiac DL <= 0.01 ng/mL [Mass/Vol] 19 ng/L 0 - 22 ng/L [facility] Comment on above: High Sensitivity Tro ponin values cannot be compared with other Troponin methodologies. [facility] XR CHEST PORTABLEon 12-31-19 XR CHEST [...] Sherrill Parmar MD 12/30/22 Final result Normal [facility] There is a new left [...] to resolution to exclude an underlying lesion. [employer] Phone: Radiology Study observation (narrative) [employer] Phone: XR CHEST PORTABLEOrdered By: Sherrill Parmar on 12-30-2022 [employer] Phone: XR LSPINE MIN 4 VIEWSon 12-04 [...] PEDRO PABLO CHAMBERS Date: 2022-12-18 13:59 Normal [facility] MRI LSPINE WO CONon 11-06-19 [...] PABLO CHAMBERS Date: 2022-11-06 15:08 Normal [facility] TESTOSTERONE, TOTALon 2021 Testosterone [Mass/Vol] 279 ng/dL Normal 264-916 [facility] Comment on above: Result Comment: Adul t male reference interval is based on a population of healthy nonobese males (BMI <30) between 19 and 39 years old. axel [place].al. JCEM 2017,102;1484-6858. PMID: [id number]. Performed By: #### H GBHCT #### [facility] [address] [place] [address] Dr. Raimundo Estrada CBC AUTO DIFFon 09-11-2022 BASO # 0.1 103/ul Normal 0.0-0.1 [facility] Comment on above: Performed By: #### H GBHCT #### [facility] [address] [address] [address] Raimundo Estrada Basophils/100 WBC (Bld) 0.6 % Normal 0.2-2.0 [facility] Comment on above: Performed By: #### H GBHCT #### [facility] [address] [address] [address] Raimundo Estrada EO # 0.2 103/ul Normal 0.0-0.7 [facility] Comment on above: Performed By: #### H GBHCT #### [facility] [address] [place] [address] Dr. Riamundo Estrada Eosinophils/100 WBC (Bld) 2.4 % Normal 0.9-7.0 [facility] Comment on above: Performed By: #### H GBHCT #### [facility] [address] [place] [address] Dr. Raimundo Estrada Erythrocyte distribution width (RBC) [Ratio] 14.1 % Normal 11.0-15.0 [facility] Comment on above: Performed By: #### H GBHCT #### [facility] [address] [place] [address] Dr. Raimundo Estrada Hematocrit (Bld) [Volume fraction] 40.2 % Critically low 42.0-54.0 [facility] Comment on above: Performed By: #### H GBHCT #### [facility] [address] [place] [address] Dr. Raimundo Estrada Hemoglobin (Bld) [Mass/Vol] 13.4 g/dL Critically low 14.0-18.0 [facility] Comment on above: Performed By: #### H GBHCT #### [facility] [address] [place] [address] Dr. Raimundo Estrada IG # 0.03 10e3/ul Normal 0.00-0.03 [facility] Comment on above: Performed By: #### H GBHCT #### [facility] [address] [address] [address] Raimundo Estrada IG % 0.4 % Normal 0.0-0.5 [facility] Comment on above: Performed By: #### H GBHCT #### [facility] [address] [address] [address] Raimundo Estrada LYMPH # 1.7 103/ul Normal 1.2-3.8 [facility] Comment on above: Performed By: #### H GBHCT #### [facility] [address] [address] [address] Raimundo Estrada Lymphocytes/100 WBC (Bld) 20.8 % Normal 20.5-60.0 [facility] Comment on above: Performed By: #### H GBHCT #### [facility] [address] [address] [address] Raimundo Estrada MANUAL DIFF REQ NO Normal [facility] Comment on above: Performed By: #### H GBHCT #### [facility] [address] [address] [address] Raimundo Estrada MCH (RBC) [Entitic mass] 31.8 pg Normal 25.9-34.0 [facility] Comment on above: Performed By: #### H GBHCT #### [facility] [address] [address] [address] Raimundo Estrada MCHC (RBC) [Mass/Vol] 33.3 g/dL Normal 29.9-35.2 [facility] Comment on above: Performed By: #### H GBHCT #### [facility] [address] [address] [address] Raimundo Estrada MCV (RBC) [Entitic vol] 95.3 fL Critically high 80.0-94.0 [facility] Comment on above: Performed By: #### H GBHCT #### [facility] [address] [address] [address] Raimundo Estrada MONO # 0.8 103/ul Normal 0.3-0.8 [facility] Comment on above: Performed By: #### H GBHCT #### [facility] [address] [address] [address] Raimundo Estrada Monocytes/100 WBC (Bld) 9.7 % Normal 1.7-12.0 [facility] Comment on above: Performed By: #### H GBHCT #### [facility] [address] [address] [address] Raimundo Estrada NEUT # 5.2 103/ul Normal 1.4-6.5 [facility] Comment on above: Performed By: #### H GBHCT #### [facility] [address] [address] [address] Raimundo Estrada Neutrophils/100 WBC (Bld) 66.1 % Normal 43.0-75.0 [facility] Comment on above: Performed By: #### H GBHCT #### [facility] [address] [place] [address] Dr. Raimundo Estrada Platelet mean volume (Bld) [Entitic vol] 10.1 fL Normal 9.5-13.5 [facility] Comment on above: Performed By: #### H GBHCT #### [facility] [address] [address] [address] Raimundo Estrada PLT 189 103/ul Normal 150-450 [facility] Comment on above: Performed By: #### H GBHCT #### [facility] [address] [place] [address] Dr. Raimundo Estrada RBC 4.22 106/ul Critically low 4.70-6.10 [facility] Comment on above: Performed By: #### H GBHCT #### [facility] [address] [place] [address] Dr. Raimundo Estrada WBC 7.9 103/ul Normal 4.0-11.0 [facility] Comment on above: Performed By: #### H GBHCT #### [facility] [address] [place] [address] Dr. Raimundo Estrada FREE T3on 09-11-2022 FREE T3 2.85 pg/mlL Normal 2.18-3.98 [facility] Comment on above: Performed By: #### T SH, FT3, LIVER, BMP, LIPID #### [facility] [address] [address] [address] Raimundo Estrada FREE T4on 09-11-2022 Free T4 [Mass/Vol] 0.85 ng/dL Normal 0.76-1.46 [facility] Comment on above: Performed By: #### H GBHCT #### [facility] [address] [address] [address] Raimundo Estrada GLYCOHEMOGLOBIN A1Con 2021 ADA RECOMMENDATION SEE BELOW Normal [facility] Comment on above: Result Comment: ADA RECOMMENDED LIMIT 4.0 - 6.0 ADA THERAPEUTIC TARGET < 7.0 ACTION SUGGESTED > 7.0 Performed By: #### H GBHCT #### [facility] [address] [place] [address] Dr. Raimundo Estrada Glucose [Mass/Vol] 111 mg/dL Normal [facility] Comment on above: Performed By: #### H GBHCT #### [facility] [address] [address] [address] Raimundo Estrada HbA1c (Bld) [Mass fraction] 5.5 % Normal 4.5-6.2 [facility] Comment on above: Performed By: #### H GBHCT #### [facility] [address] [place] [address] Dr. Raimundo Estrada LIPID PROFILEon 09-11-2022 CHOL-HDL RATIO NORM SEE BELOW Normal [facility] Comment on above: Result Comment: 3.3 - 4.4 LOW RISK 4.4 - 7.1 AVERAGE RISK 7.1 - 11.0 MODERATE RISK >11.0 HIGH RISK Performed By: #### T SH, FT3, LIVER, BMP, LIPID #### [facility] [address] [address] [address] Raimundo Estrada Cholesterol [Mass/Vol] 129 mg/dL Normal <=200 [facility] Comment on above: Performed By: #### T SH, FT3, LIVER, BMP, LIPID #### [facility] [address] [address] [address] Raimundo Estrada Cholesterol in HDL [Mass/Vol] 62 mg/dL Critically high 40-60 [facility] Comment on above: Performed By: #### T SH, FT3, LIVER, BMP, LIPID #### [facility] [address] [address] [address] Raimundo Estrada Cholesterol in LDL [Mass/Vol] 53.4 mg/dL Normal [facility] Comment on above: Performed By: #### T SH, FT3, LIVER, BMP, LIPID #### [facility] [address] [address] [address] Raimundo Estrada Cholesterol.total/Ch olesterol in HDL [Mass ratio] 2.1 {ratio} Normal [facility] Comment on above: Performed By: #### T SH, FT3, LIVER, BMP, LIPID #### [facility] [address] [address] [address] Raimundo Estrada HDL NORMAL > or = 60 mg/dl - LO W CARDIOVASCULAR RISK <40 mg/dl - HIGH CARDIOVASCULAR RISK Normal [facility] Comment on above: Performed By: #### T SH, FT3, LIVER, BMP, LIPID #### [facility] [address] [address] [address] Raimundo Estrada LDL CALC NORMAL SEE BELOW Normal [facility] Comment on above: Result Comment: <100 mg/dl OPTIMAL 100 - 129 mg/dl NEAR OR ABOVE OPTIMAL 130 - 159 mg/dl BORDERLINE HIGH 160 - 189 mg/dl HIGH >190 mg/dl VERY HIGH Performed By: #### T SH, FT3, LIVER, BMP, LIPID #### [facility] [address] [address] [address] Raimundo Estrada Triglyceride [Mass/Vol] 68 mg/dL Normal <=150 [facility] Comment on above: Performed By: #### T SH, FT3, LIVER, BMP, LIPID #### [facility] [address] [address] [address] Raimundo Estrada VLDL CALC 13.6 mg/dL Normal [facility] Comment on above: Performed By: #### T SH, FT3, LIVER, BMP, LIPID #### [facility] [address] [address] [address] Raimundo Estrada LIVER PROFILEon 09-11-2022 Albumin [Mass/Vol] 3.8 g/dL Normal 3.4-5.0 [facility] Comment on above: Performed By: #### T SH, FT3, LIVER, BMP, LIPID #### [facility] [address] [address] [address] Raimundo Estrada Albumin/Globulin [Mass ratio] 1.0 {ratio} Normal [facility] Comment on above: Performed By: #### T SH, FT3, LIVER, BMP, LIPID #### [facility] [address] [place] [address] Dr. Raimundo Estrada ALP [Catalytic activity/Vol] 103 U/L Normal 46-116 [facility] Comment on above: Performed By: #### T SH, FT3, LIVER, BMP, LIPID #### [facility] [address] [place] [address] Dr. Raimundo Estrada ALT [Catalytic activity/Vol] 46 U/L Normal 16-63 [facility] Comment on above: Performed By: #### T SH, FT3, LIVER, BMP, LIPID #### [facility] [address] [place] [address] Dr. Raimundo Estrada AST [Catalytic activity/Vol] 35 U/L Normal 15-37 [facility] Comment on above: Performed By: #### T SH, FT3, LIVER, BMP, LIPID #### [facility] [address] [place] [address] Dr. Raimundo Estrada BILI, CONJUGATED 0.2 mg/dL Normal 0.0-0.2 [facility] Comment on above: Performed By: #### T SH, FT3, LIVER, BMP, LIPID #### [facility] [address] [place] [address] Dr. Raimundo Estrada Bilirubin [Mass/Vol] 0.7 mg/dL Normal 0.2-1.0 [facility] Comment on above: Performed By: #### T SH, FT3, LIVER, BMP, LIPID #### [facility] [address] [place] [address] Dr. Raimundo Estrada Globulin (S) [Mass/Vol] 3.8 g/dL Normal [facility] Comment on above: Performed By: #### T SH, FT3, LIVER, BMP, LIPID #### [facility] [address] [place] [address] Dr. Raimundo Estrada Protein [Mass/Vol] 7.6 g/dL Normal 6.4-8.2 [facility] Comment on above: Performed By: #### T SH, FT3, LIVER, BMP, LIPID #### [facility] [address] [place] [address] Dr. Raimundo Estrada PROF CHEM 8 (BAS METB)on Anion gap [Moles/Vol] 13.9 mmol/L Normal [facility] Comment on above: Performed By: #### T SH, FT3, LIVER, BMP, LIPID #### [facility] [address] [place] [address] Dr. Raimundo Estrada Calcium [Mass/Vol] 9.3 mg/dL Normal 8.5-10.1 [facility] Comment on above: Performed By: #### T SH, FT3, LIVER, BMP, LIPID #### [facility] [address] [place] [address] Dr. Raimundo Estrada Chloride [Moles/Vol] 104 mmol/L Normal 98-107 [facility] Comment on above: Performed By: #### T SH, FT3, LIVER, BMP, LIPID #### [facility] [address] [place] [address] Dr. Raimundo Estrada CO2 [Moles/Vol] 28.6 mmol/L Normal 21.0-32.0 [facility] Comment on above: Performed By: #### T SH, FT3, LIVER, BMP, LIPID #### [facility] [address] [place] [address] Dr. Raimundo Estrada Creatinine [Mass/Vol] 0.77 mg/dL Normal 0.70-1.30 [facility] Comment on above: Performed By: #### T SH, FT3, LIVER, BMP, LIPID #### [facility] [address] [place] [address] Dr. Raimundo Estrada EGFR-AF [place] >60 Normal >=60 [facility] Comment on above: Performed By: #### T SH, FT3, LIVER, BMP, LIPID #### [facility] [address] [address] [address] Raimundo Estrada EGFR-NON AF [place] >60 Normal >=60 [facility] Comment on above: Performed By: #### T SH, FT3, LIVER, BMP, LIPID #### [facility] [address] [address] [address] Raimundo Estrada Glucose [Mass/Vol] 90 mg/dL Normal 74-106 [facility] Comment on above: Performed By: #### T SH, FT3, LIVER, BMP, LIPID #### [facility] [address] [place] [address] Dr. Raimundo Estrada Potassium [Moles/Vol] 4.5 mmol/L Normal 3.5-5.1 [facility] Comment on above: Performed By: #### T SH, FT3, LIVER, BMP, LIPID #### [facility] [address] [address] [address] Raimundo Estrada Sodium [Moles/Vol] 142 mmol/L Normal 136-145 [facility] Comment on above: Performed By: #### T SH, FT3, LIVER, BMP, LIPID #### [facility] [address] [place] [address] Dr. Raimundo Estrada Urea nitrogen [Mass/Vol] 22.0 mg/dL Critically high 7.0-18.0 [facility] Comment on above: Performed By: #### T SH, FT3, LIVER, BMP, LIPID #### [facility] [address] [address] [address] Raimundo Estrada Urea nitrogen/Creatinine [Mass ratio] 28.6 mg/mg Normal [facility] Comment on above: Performed By: #### T SH, FT3, LIVER, BMP, LIPID #### [facility] [address] [place] [address] Dr. Raimundo Estrada TSHon 09-11-2022 TSH 1.375 uIU/mL Normal 0.358-3.74 0 [facility] Comment on above: Performed By: #### T SH, FT3, LIVER, BMP, LIPID #### [facility] [address] [place], [place] [address] Dr. Raimundo Estrada VITAMIN B12on 09-11-2022 Cobalamin (Vitamin B12) [Mass/Vol] 635.0 pg/mL Normal 193.0-986. 0 [facility] Comment on above: Performed By: #### L IPID #### [facility] [address], [place] [address] Dr. Raimundo Estrada General Surgery Office/Clini c [...] History Ongoing Asthma BMI 25.0-25.9,adult CAD in [place] artery DDD (degenerative disc disease), lumbar Depression [...] Tab, 25 mg= 1 tab(s), Oral, BID Ovid 5/325 Tab, 1 tab(s), Oral, BID Protonix [...] Coronary artery disease: Mother and Father. Normal [facility] Comment on above: Result Comment: Elec [...] sigmoid polyp that was not retrieved. Normal [facility] Pathology Noteon 06-28-2022 Pathology Note [id number]#[id number]:127 Normal [facility] Outside Colonoscopyon 2021 Outside Colonoscopy [id number]#[id number]:127 Normal [facility] HEMOGLOBIN AND HEMATOCRITon 06-26-2022 Hematocrit (Bld) [Volume fraction] 44.2 % Normal 42.0-54.0 [facility] Comment on above: Performed By: #### H GBHCT #### [facility] [address] [place] [address] Dr. Raimundo Estrada Hemoglobin (Bld) [Mass/Vol] 15.0 g/dL Normal 14.0-18.0 [facility] Comment on above: Performed By: #### H GBHCT #### [facility] [address] [place] [address] Dr. Raimundo Estrada Lab Reportson 06-24-2022 Lab Reports [id number]:127 Normal [facility] Covid-19 PCR (CVDTB)on 06-06 SARS-CoV-2 (COVID-19) RNA DAHLIA+probe Ql (Unsp spec) Not detected Normal NOT DETECTED [facility] Comment on above: Result Comment: This test is not yet approved or cleared by the [place] FDA. When there are no FDA-approved or cleared tests available, and other criteria are met, FDA can make tests available under an emergency access mechanism called an Emergency Use Authorization (EUA). The EUA for this test is supported by the Perfect Binder Feeder Offbearer of Health and Human Service's (HHS's) declaration [...] SARS-CoV-2. Performed By: #### H GBHCT #### [facility] [address] [place] [address] Dr. Raimundo Estrada Consent for Procedure/Surger yon 06-03-2022 Consent for Procedure/Surgery [id number]#[id number]:127 [facility] Pre-Certification Formon Pre-Certification Form [id number]#[id number]:127 [facility] Ambulatory Visit Summaryon 0 05-31-2022 Ambulatory Visit Summary NOEL ALVA :1960 Visit Date:05/31/2022 Ambulatory Visit Instructions Your Diagnosis Epigastric pain Hematemesis Your Care Team Attending Physician - EMILY DRUMMOND, Julian Davis Primary Care Physician - MADGA DRUMMOND, ROMARIO Referring Physician - MAGDA DRUMMOND, ROMARIO This Is Your Medications List pantoprazole (Protonix 40 mg Tab-DR) Contact prescribing physician if questions or concerns acetaminophen-hydrocodone (Ovid 5/325 Tab) albuterol (albuterol HFA 90 mcg/inh [...] Epigastric pain Hematemesis Refills: 3 Pickup at [facility] 1622 Unchanged acetaminophen-hydrocodone (Ovid 5/ 325 Tab) 1 Tablets By Mouth [...] physician if questions or concerns Pharmacy Information [facility]: [address] [place], [place] [id number] [phone] Allergies No Known Allergies No Known Medication Allergies Problems Ongoing - Any problem that you are currently receiving treatment for. Asthma BMI 25.0-25.9,adult CAD in [place] artery DDD (degenerative disc disease), lumbar Depression Epigastric pain Gouty arthritis Hematemesis Iron deficiency anemia Vitamin D deficiency Normal [facility] Lab Reportson 05-30-2022 Lab Reports [id number]#[id number]:127 Normal [facility] Lab Reportson 05-23-2022 Lab Reports [id number]#1.00CD:127 Normal [facility] Lab Reports [id number]:127 Normal [facility] Physician Referralon 022 Physician Referral [id number]#[id number]:127 Normal [facility] CBC AUTO DIFFon 04-03-2022 BASO # 0.0 103/ul Normal 0.0-0.1 [facility] Comment on above: Performed By: #### C BC #### [facility] [address] [place] [address] [address] Raimundo Estrada Basophils/100 WBC (Bld) 0.3 % Normal 0.2-2.0 [facility] Comment on above: Performed By: #### C BC #### [facility] [address] [place] [address] Dr. Raimundo Estrada EO # 0.1 103/ul Normal 0.0-0.7 [facility] Comment on above: Performed By: #### C BC #### [facility] [address] [place] [address] Dr. Raimundo Estrada Eosinophils/100 WBC (Bld) 0.7 % Critically low 0.9-7.0 [facility] Comment on above: Performed By: #### C BC #### [facility] [address] [place] [address] Dr. Raimundo Estrada Erythrocyte distribution width (RBC) [Ratio] 14.4 % Normal 11.0-15.0 [facility] Comment on above: Performed By: #### C BC #### [facility] [address] [place] [address] Dr. Raimundo Estrada Hematocrit (Bld) [Volume fraction] 38.2 % Critically low 42.0-54.0 [facility] Comment on above: Performed By: #### C BC #### [facility] [address] [place] [address] Dr. Raimundo Estrada Hemoglobin (Bld) [Mass/Vol] 12.8 g/dL Critically low 14.0-18.0 [facility] Comment on above: Performed By: #### C BC #### [facility] [address] [address] [address] Raimundo Estrada IG # 0.04 10e3/ul Critically high 0.00-0.03 [facility] Comment on above: Performed By: #### C BC #### [facility] [address] [place] [address] Dr. Raimundo Estrada IG % 0.3 % Normal 0.0-0.5 [facility] Comment on above: Performed By: #### C BC #### [facility] [address] [place] [address] Dr. Raimundo Estrada LYMPH # 1.1 103/ul Critically low 1.2-3.8 [facility] Comment on above: Performed By: #### C BC #### [facility] [address] [place] [address] Dr. Raimundo Estrada Lymphocytes/100 WBC (Bld) 9.4 % Critically low 20.5-60.0 [facility] Comment on above: Performed By: #### C BC #### [facility] [address] [place] [address] Dr. Raimundo Estrada MANUAL DIFF REQ NO Normal [facility] Comment on above: Performed By: #### C BC #### [facility] [address] [place] [address] Dr. Raimundo Estrada MCH (RBC) [Entitic mass] 30.7 pg Normal 25.9-34.0 [facility] Comment on above: Performed By: #### C BC #### [facility] [address] [place] [address] Dr. Raimundo Estrada MCHC (RBC) [Mass/Vol] 33.5 g/dL Normal 29.9-35.2 [facility] Comment on above: Performed By: #### C BC #### [facility] [address] [place] [address] Dr. Raimundo Estrada MCV (RBC) [Entitic vol] 91.6 fL Normal 80.0-94.0 [facility] Comment on above: Performed By: #### C BC #### [facility] [address] [address] [address] Raimundo Estrada MONO # 0.7 103/ul Normal 0.3-0.8 [facility] Comment on above: Performed By: #### C BC #### [facility] [address] [place] [address] [address] Raimundo Estrada Monocytes/100 WBC (Bld) 5.8 % Normal 1.7-12.0 [facility] Comment on above: Performed By: #### C BC #### [facility] [address] [address] [address] Raimundo Estrada NEUT # 9.6 103/ul Critically high 1.4-6.5 [facility] Comment on above: Performed By: #### C BC #### [facility] [address] [place] [address] Dr. Raimundo Estrada Neutrophils/100 WBC (Bld) 83.5 % Critically high 43.0-75.0 [facility] Comment on above: Performed By: #### C BC #### [facility] [address] [place] [address] Dr. Raimundo Estrada Platelet mean volume (Bld) [Entitic vol] 9.3 fL Critically low 9.5-13.5 [facility] Comment on above: Performed By: #### C BC #### [facility] [address] [place] [address] Dr. Raimundo Estrada PLT 165 103/ul Normal 150-450 [facility] Comment on above: Performed By: #### C BC #### [facility] [address] [place] [address] Dr. Raimundo Estrada RBC 4.17 106/ul Critically low 4.70-6.10 [facility] Comment on above: Performed By: #### C BC #### [facility] [address] [place] [address] Dr. Raimundo Estrada WBC 11.6 103/ul Critically high 4.0-11.0 [facility] Comment on above: Performed By: #### C BC #### [facility] [address] [place] [address] Dr. Raimundo Estrada IRONon 04-03-2022 Iron [Mass/Vol] 63.0 ug/dL Critically low 65.0-175.0 [facility] Comment on above: Performed By: #### I HBUERT #### [facility] [address] [place] [address] Dr. Raimundo Estrada PROTIMEon 04-03-2022 INR Coag (PPP) [Relative time] 0.98 {INR} Normal [facility] Comment on above: Performed By: #### H GBHCT #### [facility] [address] [place] [address] Dr. Raimundo Estrada INR GUIDELINES SEE BELOW Normal [facility] Comment on above: Result Comment: KEIRA RED INR: 2.0 - 3.0 CONDITIONS NOT LISTED BELOW 2.5 - 3.5 FOR PROSTHETIC HEART VALVE REPLACEMENT 2.5 - 3.5 RECURRENT THROMBOSIS Performed By: #### H GBHCT #### [facility] [address] [place] [address] Dr. Raimundo Estrada PT Coag (PPP) [Time] 10.6 s Normal 9.0-11.6 [facility] Comment on above: Performed By: #### H GBHCT #### [facility] [address] [place] [address] Dr. Raimundo Estrada PTTon 04-03-2022 aPTT Coag (Bld) [Time] 26.2 s Normal 22.3-36.2 [facility] Comment on above: Performed By: #### H GBHCT #### [facility] [address] [place] [address] Dr. Raimundo Estrada Sedimentation Rateon 022 Sed Rate 10 [facility] LIPID PROFILEon 03-12-2022 CHOL-HDL RATIO NORM SEE BELOW Normal [facility] Comment on above: Result Comment: 3.3 - 4.4 LOW RISK 4.4 - 7.1 AVERAGE RISK 7.1 - 11.0 MODERATE RISK >11.0 HIGH RISK Performed By: #### L IPID #### [facility] [address] [address] [address] Raimundo Estrada Cholesterol [Mass/Vol] 126 mg/dL Normal <=200 [facility] Comment on above: Performed By: #### L IPID #### [facility] [address] [address] [address] Raimundo Estrada Cholesterol in HDL [Mass/Vol] 68 mg/dL Critically high 40-60 [facility] Comment on above: Performed By: #### L IPID #### [facility] [address] [address] [address] Raimundo Estrada Cholesterol in LDL [Mass/Vol] 52.0 mg/dL Normal [facility] Comment on above: Performed By: #### L IPID #### [facility] [address] [address] [address] Raimundo Estrada Cholesterol.total/Ch olesterol in HDL [Mass ratio] 1.9 {ratio} Normal [facility] Comment on above: Performed By: #### L IPID #### [facility] [address] [place] [address] Dr. Raimundo Estrada HDL NORMAL > or = 60 mg/dl - LO W CARDIOVASCULAR RISK <40 mg/dl - HIGH CARDIOVASCULAR RISK Normal [facility] Comment on above: Performed By: #### L IPID #### [facility] [address] [place] [address] Dr. Raimundo Estrada LDL CALC NORMAL SEE BELOW Normal [facility] Comment on above: Result Comment: <100 mg/dl OPTIMAL 100 - 129 mg/dl NEAR OR ABOVE OPTIMAL 130 - 159 mg/dl BORDERLINE HIGH 160 - 189 mg/dl HIGH >190 mg/dl VERY HIGH Performed By: #### L IPID #### [facility] [address] [address] [address] Raimundo Estrada Triglyceride [Mass/Vol] 30 mg/dL Normal <=150 [facility] Comment on above: Performed By: #### L IPID #### [facility] [address] [address] [address] Raimudno Estrada VLDL CALC 6.0 mg/dL Normal [facility] Comment on above: Performed By: #### L IPID #### [facility] [address] [address] [address] Raimundo Estrada CBC Auto DifferentialOrdered By: Julian Dougherty on 03-09-2021 Absolute Eos # <0.03 [employer] [facility] Work Phone: Absolute Immature Granulocyte 0.04 [employer] Work Phone: Absolute Lymph # 1.49 [employer] [facility] Work Phone: Absolute [place] # 1.27 High [employer] [facility] Work Phone: Basophils (Bld) [#/Vol] 0.03 10*3/uL [employer] Work Phone: Basophils/100 WBC (Bld) 0 % 0 - 2 % [employer] Phone: Differential Type NOT REPORTED [employer] Phone: Eosinophils/100 WBC (Bld) 0 % Low 1 - 4 % [employer] Work Phone: Hematocrit (Bld) [Volume fraction] 41.8 % 40.7 - 50.3 % [facility] Phone: Hemoglobin.gastroint estinal spec 1 Ql (Stl) 14.3 g/dL 13.0 - 17.0 g/dL [facility] Phone: Immature granulocytes/100 WBC (Bld) 0 % 0 [employer] Work Phone: Interpretation and review of laboratory results Abnormal [facility] [employer] Phone: Lymphocytes/100 WBC (Bld) 14 % Low 24 - 43 % [facility] Phone: MCH (RBC) [Entitic mass] 30.6 pg 25.2 - 33.5 pg [facility] Phone: MCHC (RBC) [Mass/Vol] 34.2 g/dL 28.4 - 34.8 g/dL [facility] Phone: MCV (RBC) [Entitic vol] 89.5 fL 82.6 - 102.9 fL [facility] Phone: Monocytes/100 WBC (Bld) 12 % 3 - 12 % [facility] Phone: NRBC Automated 0.0 0.0 per 100 WBC [facility] Phone: Platelet distribution width (Bld) [Ratio] 13.2 % 11.8 - 14.4 % [facility] Phone: Platelet Estimate NOT REPORTED [facility] [employer] Phone: Platelet mean volume (Bld) [Entitic vol] 10.3 fL 8.1 - 13.5 fL [facility] Phone: Platelets (Bld) [#/Vol] 169 10*3/uL [facility] Phone: RBC (Bld) [#/Vol] 4.67 10*6/uL 4.21 - 5.77 m/uL [facility] Phone: RBC (Bld) [#/Vol] NOT REPORTED [facility] Phone: Segmented neutrophils/100 WBC (Bld) 74 % High 36 - 65 % [facility] Phone: Segs Absolute 7.59 [employer] Work Phone: WBC (Bld) [#/Vol] 10.4 10*3/uL [facility] Phone: WBC (Bld) [#/Vol] NOT REPORTED [facility] Phone: [facility] Phone: Sedimentation RateOrdered By : Julian Dougherty on 03-09-2021 Interpretation and review of laboratory results Abnormal [facility] Phone: Sed Rate 63 mm High 0 - 20 mm [facility] Phone: [facility] Phone: Uric AcidOrdered By: Julian Dougherty on 03-09-2021 Urate [Mass/Vol] 4.3 mg/dL 3.4 - 7.0 mg/dL [facility] Phone: [facility] Phone: XR WRIST RIGHT (MIN 3 VIEWS) Ordered By: Julian Dougherty on 03-09-2021 Arthritic changes an d mild soft tissue swelling without acute osseous abnormality. [facility] Phone: EXAMINATION: 3 XRAY VIEWS OF THE [...] No acute fracture, or dislocation is noted. [facility] Phone: Mauri, Mhpn Incoming R adiant Results From [email or web address] - 03/09/2021 10:56 AM EDT EXAMINATION: 3 [...] soft tissue swelling without acute osseous abnormality. [facility] Phone: [facility] Phone: VL DUP CAROTID BILATERALon 1 10-17-2019 [employer] [facility] l Vascular Carotid Procedure Patient Name ALVA Date of Study 08/16/2020 NOEL Vaca Date of 1960 Gender Male Age 59 year(s) Race Room Number Corporate ID # [id number] Patient MR # [id number] Childcare Teacher KEVON Tobar Interpreting Physician Mike Centeno MD [...] left side. - Additional Measurements:ICAPSV/CCAPSV 0.76.ICAEDV/CCAEDV 1.49. [facility] [place] [place], [place] Mauri, Mhpn Incoming C ardio Results From [employer] - 08/17/2020 9:08 AM [facility] Vascular Carotid Procedure Patient Name ALVA Date of Study 08/16/2020 NOEL Vaca Date of 1960 Gender Male Age 59 year(s) Race Room Number Corporate ID # [id number] Patient MR # [id number] Childcare Teacher KEVON Tobar Interpreting Physician Mike Centeno MD [...] left side. - Additional Measurements:ICAPSV/CCAPSV 0.76.ICAEDV/CCAEDV 1.49. [employer] [place], [employer] CBC auto differentialon 07-06 Basophils (Bld) [#/Vol] 0.04 10*3/uL [facility] [place] [place] Basophils/100 WBC (Bld) 0 % 0 - 2 % [facility] [employer] [place], [place] Differential Type NOT REPORTED [facility], [place] Eosinophils (Bld) [#/Vol] 0.04 10*3/uL [place] Eosinophils/100 WBC (Bld) 0 % Low 1 - 4 % [place] Erythrocyte distribution width (RBC) [Ratio] 13.9 % 11.8 - 14.4 % [place] Hematocrit (Bld) [Volume fraction] 42.7 % 40.7 - 50.3 % [place] Hemoglobin (Bld) [Mass/Vol] 14.3 g/dL 13 - 17 g/dL [place] Immature granulocytes (Bld) [#/Vol] 0.03 10*3/uL [place] Immature granulocytes (Bld) [#/Vol] 0 % 0 [place] Interpretation and review of laboratory results Abnormal [place] Lymphocytes (Bld) [#/Vol] 1.95 10*3/uL [place] Lymphocytes/100 WBC (Bld) 20 % Low 24 - 43 % [place] MCH (RBC) [Entitic mass] 31.2 pg 25.2 - 33.5 pg [place] MCHC (RBC) [Mass/Vol] 33.5 g/dL 28.4 - 34.8 g/dL [place] MCV (RBC) [Entitic vol] 93.0 fL 82.6 - 102.9 fL [place] Monocytes (Bld) [#/Vol] 0.96 10*3/uL [place] Monocytes/100 WBC (Bld) 10 % 3 - 12 % [place] Platelet mean volume (Bld) [Entitic vol] 10.2 fL 8.1 - 13.5 fL [place] Platelets (Bld) [#/Vol] NOT REPORTED [place] Platelets (Bld) [#/Vol] 189 10*3/uL [place] RBC (Bld) [#/Vol] 4.59 10*6/uL 4.21 - 5.77 m/uL [place] RBC morphology finding Nom (Bld) NOT REPORTED [place] Segmented neutrophils/100 WBC (Bld) 70 % High 36 - 65 % [place] Segs Absolute 7.00 [facility] [place] WBC (Bld) [#/Vol] 10.0 10*3/uL [place] WBC (Bld) [#/Vol] 0.0 10*3/uL 0.0 per 100 WBC [place] WBC Morphology NOT REPORTED [facility] [place] CT ABDOMEN PELVIS WO CONTRAS T [...] to suggest a definite acute inflammatory process. [place], [place] EXAMINATION: CT OF Ileana MOORE ABDOMEN [...] and moderate canal stenosis. No pars defects. [facility] [place] [place] Mauri, Mhpn Incoming R adiant Results From [employer] - 07/18/2020 9:12 AM EDT EXAMINATION: CT [...] to suggest a definite acute inflammatory process. [place] Comprehensive Metabolic Pane pat 07-18-2020 Albumin [Mass/Vol] 4.3 g/dL 3.5 - 5.2 g/dL [place] Albumin/Globulin [Mass ratio] 1.5 {ratio} [place] ALP [Catalytic activity/Vol] 71 U/L 40 - 129 U/L [place] ALT [Catalytic activity/Vol] 26 U/L 5 - 41 U/L [place] Anion gap [Moles/Vol] 13 mmol/L 9 - 17 mmol/L [place] AST [Catalytic activity/Vol] 26 U/L <40 [place] Bilirubin Ql (U) 1.44 mg/dL High 0.3 - 1.2 mg/dL [place] Bun/Cre Ratio 28 High [place], [place] Calcium [Mass/Vol] 9.4 mg/dL 8.6 - 10. 4 mg/dL [place] Chloride [Moles/Vol] 103 mmol/L 98 - 10 7 mmol/L [place] CO2 [Moles/Vol] 23 mmol/L 20 - 31 mmol/L [place] Creatinine [Mass/Vol] 0.79 mg/dL 0.7 - 1.2 mg/dL [place] GFR >60 >60 mL/min [place], [place] GFR Non- >60 >60 mL/min [place] Glucose [Mass/Vol] 93 mg/dL 70 - 99 mg/dL [place] Interpretation and review of laboratory results Abnormal [place] Potassium [Moles/Vol] 3.9 mmol/L 3.7 - 5.3 mmol/L [place] Protein [Mass/Vol] 7.1 g/dL 6.4 - 8.3 g/dL [place] Sodium [Moles/Vol] 139 mmol/L 135 - 144 mmol/L [place] Urea nitrogen [Mass/Vol] 22 mg/dL High 6 - 20 mg/dL [place] EKG 12 Leadon 07-18-2020 Atrial Rate 58 BPM [place] P [place] 45 degrees [place] P-R Interval 138 ms [place], [place] Q-T Interval 478 ms [place] QRS Duration 74 ms [place] QTc Calculation (Bazett) 469 ms [place] R [place] 49 degrees [facility] T [place] 129 degrees [place], [place] Ventricular Rate 58 BPM [place], [place] Sinus bradycardia T wave abnormality, consider lateral ischemia Prolonged QT Abnormal ECG When compared with ECG of 14-JUN-2019 10:26, Nonspecific T wave abnormality has replaced inverted T waves in Inferior leads T wave inversion less evident in Anterior leads Confirmed by JW KAY ([id number]) on 07/18/2020 11:37:03 AM [place] Mauri, Mhpn Incoming E kg Results From [employer] [place] - 07/18/2020 11:37 AM EDT Sinus bradycardia T wave abnormality, consider lateral ischemia Prolonged QT Abnormal ECG When compared with ECG of 14-JUN-2019 10:26, Nonspecific T wave abnormality has replaced inverted T waves in Inferior leads T wave inversion less evident in Anterior leads Confirmed by JW KAY ([id number]) on 07/18/2020 11:37:03 AM [place] Lipaseon 07-18-2020 Lipase [Catalytic activity/Vol] 30 U/L 13 - 60 U/L [place] Metabolic Panelon 07-18-2020 GFR/1.73 sq M predicted among non-blacks MDRD (S/P/Bld) [Vol rate/Area] [place], [place] Comment on above: Stage 1: Some [...] body mass. Additional eGFR calculator available at: http://www.EBOOKAPLACE/Secure Mentem_crcl_2012.htm Microscopic Urinalysison Amorphous, UA NOT REPORTED None [place], [place] Bacteria, UA NOT REPORTED None [place], [place] Casts UA NOT REPORTED /LPF [place] Crystals, UA NOT REPORTED None /HPF [place] Epithelial Cells UA 0 TO 2 [place] Mucus, UA NOT REPORTED None [place], [place] Other Observations UA NOT REPORTED NOT REQ. [place] RBC (U) [#/Vol] None [place] Renal Epithelial, UA NOT REPORTED 0 /HPF [place], [place] Trichomonas, UA NOT REPORTED None [facility] [place] WBC, UA 0 TO 2 [place] Yeast, UA NOT REPORTED None [place], [place] - [place] Troponinon 07-18-2020 Troponin I.cardiac [Mass/Vol] NOT REPORTED [place] Troponin T.cardiac [Mass/Vol] NOT REPORTED <0.03 ng/mL [place] Troponin, High Sensitivity 18 ng/L 0 - 22 ng/L [place] Comment on above: High Sensitivity Troponin values cannot be compared with other Troponin methodologies. Patients with high levels of Biotin oral intake (i.e >5mg/day) may have falsely decreased Troponin levels. Samples collected within 8 hours of biotin intake may require additional information for diagnosis. Troponin I.cardiac [Mass/Vol] NOT REPORTED [place] Troponin T.cardiac [Mass/Vol] NOT REPORTED <0.03 ng/mL [place] Troponin, High Sensitivity 21 ng/L 0 - 22 ng/L [place] Comment on above: High Sensitivity Troponin values cannot be compared with other Troponin methodologies. Patients with high levels of Biotin oral intake (i.e >5mg/day) may have falsely decreased Troponin levels. Samples collected within 8 hours of biotin intake may require additional information for diagnosis. Urinalysis Reflex to Culture on 07-18-2020 Bilirubin Urine Negative NEGATIVE [place], [place] Color, UA YELLOW YELLOW [place] Glucose, Ur Negative NEGATIVE [place] Interpretation and review of laboratory results Abnormal [place] Ketones Ql (U) 1+ Abnormal NEGATIVE [place] Leukocyte esterase Test strip Ql (U) Negative NEGATIVE [place] Nitrite, Urine Negative NEGATIVE [place] pH, UA 7.0 [place] Protein (U) [Mass/Vol] Negative NEGATIVE [place] Specific [place], UA 1.020 [place], [place] Turbidity UA CLEAR CLEAR [place], [place] Urinalysis Comments NOT REPORTED [place] Urine Hgb Negative NEGATIVE [place] Urobilinogen, Urine Normal Normal [place] XR CHEST (SINGLE VIEW FRONTA L)on 07-18-2020 Mauri, Mhpn Incoming R adiant Results From [employer] - 07/18/2020 8:54 AM EDT EXAMINATION: ONE XRAY VIEW OF THE CHEST 07/18/2020 8:44 am COMPARISON: June 14, 2019 HISTORY: ORDERING SYSTEM PROVIDED HISTORY: epig pain TECHNOLOGIST PROVIDED HISTORY: epig pain FINDINGS: Is no evidence of focal infiltrate, effusion, pneumothorax. Heart mediastinum appear normal. Visualized bony thorax shows no acute abnormality. IMPRESSION: No acute findings of the chest, stable when compared to previous. [place] EXAMINATION: ONE XRA Y VIEW OF THE CHEST 07/18/2020 8:44 am COMPARISON: June 14, 2019 HISTORY: ORDERING SYSTEM PROVIDED HISTORY: epig pain TECHNOLOGIST PROVIDED HISTORY: epig pain FINDINGS: Is no evidence of focal infiltrate, effusion, pneumothorax. Heart mediastinum appear normal. Visualized bony thorax shows no acute abnormality. [place], [place] No acute findings of the chest, stable when compared to previous. [place] CBC Auto Differentialon 09-0 Basophils (Bld) [#/Vol] 0.05 10*3/uL [place] Basophils/100 WBC (Bld) 1 % 0 - 2 % [place] Differential Type NOT REPORTED [place] Eosinophils (Bld) [#/Vol] 10*3/uL [place] Eosinophils/100 WBC (Bld) 0 % Low 1 - 4 % [place] Erythrocyte distribution width (RBC) [Ratio] 12.9 % 11.8 - 14.4 % [place] Hematocrit (Bld) [Volume fraction] 45.7 % 40.7 - 50.3 % [place] Hemoglobin (Bld) [Mass/Vol] 15.5 g/dL 13 - 17 g/dL [place] Immature granulocytes (Bld) [#/Vol] 10*3/uL [place] Immature granulocytes (Bld) [#/Vol] 0 % 0 [place] Interpretation and review of laboratory results Abnormal [place] Lymphocytes (Bld) [#/Vol] 1.83 10*3/uL [place] Lymphocytes/100 WBC (Bld) 19 % Low 24 - 43 % [place] MCH (RBC) [Entitic mass] 31.1 pg 25.2 - 33.5 pg [place] MCHC (RBC) [Mass/Vol] 33.9 g/dL 28.4 - 34.8 g/dL [place] MCV (RBC) [Entitic vol] 91.6 fL 82.6 - 102.9 fL [place] Monocytes (Bld) [#/Vol] 0.86 10*3/uL [place] Monocytes/100 WBC (Bld) 9 % 3 - 12 % [place] Platelet mean volume (Bld) [Entitic vol] 9.7 fL 8.1 - 13.5 fL [place] Platelets (Bld) [#/Vol] 195 10*3/uL [place] Platelets (Bld) [#/Vol] NOT REPORTED [place] RBC (Bld) [#/Vol] 4.99 10*6/uL 4.21 - 5.77 m/uL [place] RBC morphology finding Nom (Bld) NOT REPORTED [place] Segmented neutrophils/100 WBC (Bld) 71 % High 36 - 65 % [place] Segs Absolute 7.08 [place] WBC (Bld) [#/Vol] 9.9 10*3/uL [place] WBC (Bld) [#/Vol] 0.0 10*3/uL 0.0 per 100 WBC [place] WBC Morphology NOT REPORTED [place] Comprehensive Metabolic Pane l w/ Reflex to MGon 06-14-2019 Albumin [Mass/Vol] 4.4 g/dL 3.5 - 5.2 g/dL [place] Albumin/Globulin [Mass ratio] 1.2 {ratio} [place] ALP [Catalytic activity/Vol] 77 U/L 40 - 129 U/L [place] ALT [Catalytic activity/Vol] 19 U/L 5 - 41 U/L [place] Anion gap [Moles/Vol] 15 mmol/L 9 - 17 mmol/L [place] AST [Catalytic activity/Vol] 22 U/L <40 [place] Bilirubin Ql (U) 0.61 mg/dL 0.3 - 1.2 mg/dL [place] Bun/Cre Ratio 23 High [place] Calcium [Mass/Vol] 10.0 mg/dL 8.6 - 10. 4 mg/dL [place] Chloride [Moles/Vol] 98 mmol/L 98 - 10 7 mmol/L [place] CO2 [Moles/Vol] 24 mmol/L 20 - 31 mmol/L [place] Creatinine [Mass/Vol] 0.82 mg/dL 0.7 - 1.2 mg/dL [place] GFR >60 >60 mL/min [place] GFR Non- >60 >60 mL/min [place] Glucose [Mass/Vol] 98 mg/dL 70 - 99 mg/dL [place] Interpretation and review of laboratory results Abnormal [place] Potassium [Moles/Vol] 4.0 mmol/L 3.7 - 5.3 mmol/L [place] Protein [Mass/Vol] 8.2 g/dL 6.4 - 8.3 g/dL [place] Sodium [Moles/Vol] 137 mmol/L 135 - 144 mmol/L [place] Urea nitrogen [Mass/Vol] 19 mg/dL 6 - 20 mg/dL [place] D-Dimer, Quantitativeon D-Dimer, Quant 0.42 [place] Comment on above: Elevated levels of [...] activity/Vol] 37 U/L 13 - 60 U/L [place] Metabolic Panelon 06-14-2019 GFR/1.73 sq M predicted among non-blacks MDRD (S/P/Bld) [Vol rate/Area] [place] Comment on above: Average GFR for 50-5 9 years old: 93 mL/min/1.73sq m Chronic Kidney Disease: <60 mL/min/1.73sq m Kidney failure: <15 mL/min/1.73sq m eGFR calculated using average adult body mass. Additional eGFR calculator available at: http://www.EBOOKAPLACE/multiple_crcl_2012.htm Stage 1: Some kidney damage normal GFR Stage 2: Mild kidney damage GFR 60-89 Stage 3: Moderate kidney damage GFR 30-59 Stage 4: Severe kidney damage GFR 15-29 Stage 5: Severe kidney damage GFR <15 ESRD - chronic treatment by dialysis or transplant Troponinon 06-14-2019 Troponin I.cardiac [Mass/Vol] [place] Comment on above: Reference Range: <0.03 [...] diagnosis. Troponin T.cardiac [Mass/Vol] ug/L <0.03 ng/mL [place] Comment on above: Troponin T results c annot be compared to Troponin-I results. Troponin, High Sensitivity NOT REPORTED 0 - 22 ng/L [place] Troponin I.cardiac [Mass/Vol] [place] Comment on above: Reference Range: <0.03 [...] diagnosis. Troponin T.cardiac [Mass/Vol] ug/L <0.03 ng/mL [place] Comment on above: Troponin T results c annot be compared to Troponin-I results. Troponin, High Sensitivity NOT REPORTED 0 - 22 ng/L [place] APTTon 01-13-2018 aPTT 24.4 s Normal 20.5-30.5 [facility] Comment on above: Result Comment: [employer] [facility] [place], [place] [id number] [phone] Performed By: #### C BC, PTT, TROPI, GLYHGB ####[address] [place] [address] Basic Metabolic Profon 01-13 (cont.) Normal [facility] Comment on above: Result Comment: Aver age GFR for 50-59 years old: 93 mL/min/1.73sq mChronic Kidney Disease: <60 mL/min/1.73sq mKidney failure: <15 mL/min/1.73sq meGFR calculated using average adult body mass. Additional eGFR calculator available at:http://www.MyPublisher.As It Is/multiple_crcl_2012.htmSan [facility] [address] [place] [address] Performed By: #### C BC, PTT, TROPI, GLYHGB ####[address] [address] Anion gap 9 mmol/L Normal 9-17 [facility] Comment on above: Performed By: #### C BC, PTT, TROPI, GLYHGB ####[address] [address] Calcium 9.3 mg/dL Normal 8.6-10.4 [facility] Comment on above: Performed By: #### C BC, PTT, TROPI, GLYHGB ####[address] [address] Chloride 102 mmol/L Normal 98-107 [facility] Comment on above: Performed By: #### C BC, PTT, TROPI, GLYHGB ####[address] [address] CO2 24 mmol/L Normal 20-31 [facility] Comment on above: Performed By: #### C BC, PTT, TROPI, GLYHGB ####[address] [address] Creatinine 0.75 mg/dL Normal 0.70-1.20 [facility] Comment on above: Performed By: #### C BC, PTT, TROPI, GLYHGB ####[facility] [place] [address] eGFR (non-black) mL/min/{1.73_m2} Normal >60 [facility] Comment on above: Performed By: #### C BC, PTT, TROPI, GLYHGB ####[address] [address] Glucose mass conc 104 mg/dL High 70-99 [facility] Comment on above: Performed By: #### C BC, PTT, TROPI, GLYHGB ####[address] [address] Potassium molar conc 5.0 mmol/L Normal 3.7-5.3 [facility] Comment on above: Result Comment: TEST CONFIRMED Performed By: #### C BC, PTT, TROPI, GLYHGB ####[address] [address] Sodium 135 mmol/L Normal 135-144 [facility] Comment on above: Performed By: #### C BC, PTT, TROPI, GLYHGB ####[address] [address] Urea nitrogen 12 mg/dL Normal 6-20 [facility] Comment on above: Performed By: #### C BC, PTT, TROPI, GLYHGB ####[address] [address] BUN/CRE Ratio NOT REPORTED Normal 9-20 [facility] Comment on above: Performed By: #### C BC, PTT, TROPI, GLYHGB ####[address] [address] Staging: NOT REPORTED Normal [facility] Comment on above: Performed By: #### C BC, PTT, TROPI, GLYHGB ####[facility] [address] [place] [address], [place] [address] (cont.) Normal [facility] Comment on above: Result Comment: Aver age GFR for 50-59 years old: 93 mL/min/1.73sq mChronic Kidney Disease: <60 mL/min/1.73sq mKidney failure: <15 mL/min/1.73sq meGFR calculated using average adult body mass. Additional eGFR calculator available at:http://www.MyPublisher.As It Is/multiple_crcl_2012.htmSan [facility]aquin [facility] [address] [place] [address] Performed By: #### C BC, PTT, TROPI, GLYHGB ####[address] [address] Anion gap 11 mmol/L Normal 9-17 [facility] Comment on above: Performed By: #### C BC, PTT, TROPI, GLYHGB ####[address] [address] Calcium 8.6 mg/dL Normal 8.6-10.4 [facility] Comment on above: Performed By: #### C BC, PTT, TROPI, GLYHGB ####[address] [address] Chloride 100 mmol/L Normal 98-107 [facility] Comment on above: Performed By: #### C BC, PTT, TROPI, GLYHGB ####[address] [place] [address] CO2 24 mmol/L Normal 20-31 [facility] Comment on above: Performed By: #### C BC, PTT, TROPI, GLYHGB ####[address] [address] Creatinine 0.64 mg/dL Low 0.70-1.20 [facility] Comment on above: Performed By: #### C BC, PTT, TROPI, GLYHGB ####[facility] [place] [address] eGFR (non-black) mL/min/{1.73_m2} Normal >60 [facility] Comment on above: Performed By: #### C BC, PTT, TROPI, GLYHGB ####[address] [address] Glucose mass conc 102 mg/dL High 70-99 [facility] Comment on above: Performed By: #### C BC, PTT, TROPI, GLYHGB ####[address] [address] Potassium molar conc 3.5 mmol/L Low 3.7-5.3 [facility] Comment on above: Performed By: #### C BC, PTT, TROPI, GLYHGB ####[address] [address] Sodium 135 mmol/L Normal 135-144 [facility] Comment on above: Performed By: #### C BC, PTT, TROPI, GLYHGB ####[address] [address] Urea nitrogen 12 mg/dL Normal 6-20 [facility] Comment on above: Performed By: #### C BC, PTT, TROPI, GLYHGB ####[address] [address] BUN/CRE Ratio NOT REPORTED Normal 9-20 [facility] Comment on above: Performed By: #### C BC, PTT, TROPI, GLYHGB ####[address] [address] Staging: NOT REPORTED Normal [facility] Comment on above: Performed By: #### C BC, PTT, TROPI, GLYHGB ####[address] [address] Discharge Summaryon 01-14-20 18 HIM IP Note OR [employer] Hand Normal [facility] Magnesiumon 01-13-2018 Magnesium 2.2 mg/dL Normal 1.6-2.6 [facility] Comment on above: Result Comment: [facility] [address] [place] [address] Performed By: #### C BC, PTT, TROPI, GLYHGB ####[facility] [address] [place] [address] Magnesium 2.1 mg/dL Normal 1.6-2.6 [facility] Comment on above: Result Comment: [facility] [address] [place] [address] Performed By: #### C BC, PTT, TROPI, GLYHGB ####[address] [address] Plan of Careon 01-13-2018 HIM IP Note OR [employer] Hand Normal [facility] Progress Noteon 01-13-2018 HIM IP Note OR [employer] Hand Normal [facility] HIM IP Note OR [employer] Hand Normal [facility] HIM IP Note OR [employer] Hand Normal [facility] APTTon 01-12-2018 aPTT 47.5 s High 20.5-30.5 [facility] Comment on above: Result Comment: [facility] [address] [place] [address] Performed By: #### P TT ####[address] [address] aPTT 48.3 s High 20.5-30.5 [facility] Comment on above: Result Comment: [facility] [address] [place] [address] Performed By: #### P LT, PTT ####[address] [address] aPTT 50.8 s High 20.5-30.5 [facility] Comment on above: Result Comment: [facility] [address] [place] [address] Performed By: #### P TT ####[facility] [address] [address] Platelet Counton 01-12-2018 Platelets 154 10*3/uL Normal 138-453 [facility] Comment on above: Result Comment: [facility] [address] [place] [address] Performed By: #### P LT, PTT ####[address] [address] Progress Noteon 01-12-2018 HIM IP Note OR [employer] Hand Normal [facility] APTTon 01-11-2018 aPTT 38.0 s High 20.5-30.5 [facility] Comment on above: Result Comment: [facility] [address] [place] [address] Performed By: #### P TT ####[address] [address] aPTT 35.3 s High 20.5-30.5 [facility] Comment on above: Result Comment: [facility] [address] [place] [address] Performed By: #### P TT ####[address] [address] aPTT 30.5 s Normal 20.5-30.5 [facility] Comment on above: Result Comment: [facility] [address] [place] [address] Performed By: #### P TT ####[address] [address] CBCon 01-11-2018 Erythrocyte distribution width Auto Ratio (RBC) 14.0 % Normal 11.8-14.4 [facility] Comment on above: Performed By: #### C BC, CP, LIPR, MG ####[address] [address] Erythrocytes (RBC) 0.0 per 100 WBC Normal 0.0 M [facility] Comment on above: Result Comment: [address] [address] Performed By: #### C BC, CP, LIPR, MG ####[address] [address] Erythrocytes (RBC) 4.36 10*6/uL Normal 4.21-5.77 [facility] Comment on above: Performed By: #### C BC, CP, LIPR, MG ####[address] [address] Hematocrit (HCT) 40.6 % Low 40.7-50.3 [facility] Comment on above: Performed By: #### C BC, CP, LIPR, MG ####[address] [address] Hemoglobin mass conc (Bld) 13.3 g/dL Normal 13.0-17.0 [facility] Comment on above: Performed By: #### C BC, CP, LIPR, MG ####[address] [address] MCH 30.5 pg Normal 25.2-33.5 [facility] Comment on above: Performed By: #### C BC, CP, LIPR, MG ####[address] [address] MCHC mass conc (RBC) 32.8 g/dL Normal 28.4-34.8 [facility] Comment on above: Performed By: #### C BC, CP, LIPR, MG ####[address] [place] [address] MCV 93.1 fL Normal 82.6-102.9 [facility] Comment on above: Performed By: #### C BC, CP, LIPR, MG ####[facility] [place] [address] Platelet mean volume (PMV) 10.1 fL Normal 8.1-13.5 [facility] Comment on above: Performed By: #### C BC, CP, LIPR, MG ####[address] [place] [address] Platelets 153 10*3/uL Normal 138-453 [facility] Comment on above: Performed By: #### C BC, CP, LIPR, MG ####[address] [address] WBC (Leukocytes) 9.5 10*3/uL Normal 3.5-11.3 [facility] Comment on above: Performed By: #### C BC, CP, LIPR, MG ####[address] [place] [address] Comp Metabolic Profon 2017 (cont.) Normal [facility] Comment on above: Result Comment: Aver age GFR for 50-59 years old: 93 mL/min/1.73sq mChronic Kidney Disease: <60 mL/min/1.73sq mKidney failure: <15 mL/min/1.73sq meGFR calculated using average adult body mass. Additional eGFR calculator available at:http://www.MyPublisher.com/multiple_crcl_2012.htmSan Joaquin [facility] [address] [place] [address] Performed By: #### C BC, CP, LIPR, MG ####[facility] [place] [address] Alanine aminotransferase (ALT) 17 U/L Normal 5-41 [facility] Comment on above: Performed By: #### C BC, CP, LIPR, MG ####[facility] [address] [place] [address] Albumin 3.6 g/dL Normal 3.5-5.2 [facility] Comment on above: Performed By: #### C BC, CP, LIPR, MG ####[address] [address] Albumin/Globulin Ratio 1.3 {ratio} Normal 1.0-2.5 [facility] Comment on above: Performed By: #### C BC, CP, LIPR, MG ####[facility] [address] [place] [address] Alkaline Phos 76 U/L Normal 40-129 [facility] Comment on above: Performed By: #### C BC, CP, LIPR, MG ####[facility] [address] [place] [address] Anion gap 14 mmol/L Normal 9-17 [facility] Comment on above: Performed By: #### C BC, CP, LIPR, MG ####[facility] [address] [place] [address] Aspartate aminotransferase (AST) 15 U/L Normal <40 [facility] Comment on above: Performed By: #### C BC, CP, LIPR, MG ####[facility] [address] [place] [address] Bilirubin Ql (U) 1.13 mg/dL Normal 0.3-1.2 [facility] Comment on above: Performed By: #### C BC, CP, LIPR, MG ####[facility] [address] [place] [address] Calcium 8.4 mg/dL Low 8.6-10.4 [facility] Comment on above: Performed By: #### C BC, CP, LIPR, MG ####[facility] [address] [place] [address] Chloride 97 mmol/L Low 98-107 [facility] Comment on above: Performed By: #### C BC, CP, LIPR, MG ####[facility] [place] [address] CO2 23 mmol/L Normal 20-31 [facility] Comment on above: Performed By: #### C BC, CP, LIPR, MG ####[facility] [address] [place] [address] Creatinine 0.63 mg/dL Low 0.70-1.20 [facility] Comment on above: Performed By: #### C BC, CP, LIPR, MG ####[address] [address] eGFR (non-black) mL/min/{1.73_m2} Normal >60 [facility] Comment on above: Performed By: #### C BC, CP, LIPR, MG ####[facility] [address] [place] [address] Glucose mass conc 107 mg/dL High 70-99 [facility] Comment on above: Performed By: #### C BC, CP, LIPR, MG ####[facility] [address] [place] [address] Potassium molar conc 3.6 mmol/L Low 3.7-5.3 [facility] Comment on above: Performed By: #### C BC, CP, LIPR, MG ####[facility] [address] [place] [address] Protein 6.4 g/dL Normal 6.4-8.3 [facility] Comment on above: Performed By: #### C BC, CP, LIPR, MG ####[facility] [address] [place] [address] Sodium 134 mmol/L Low 135-144 [facility] Comment on above: Performed By: #### C BC, CP, LIPR, MG ####[facility] [address] [place] [address] Urea nitrogen 19 mg/dL Normal - [facility] Comment on above: Performed By: #### C BC, CP, LIPR, MG ####[facility] [address] [place] [address] BUN/CRE Ratio NOT REPORTED Normal - [facility] Comment on above: Performed By: #### C BC, CP, LIPR, MG ####[facility] [address] [place] [address] Staging: NOT REPORTED Normal [facility] Comment on above: Performed By: #### C BC, CP, LIPR, MG ####[facility] [address] [place] [address] Hemoglobin A1Con 01-11-2018 Glucose mass conc 114 mg/dL Normal [facility] Comment on above: Result Comment: The ADA and AACC recommend providing the estimated average glucose result to permit better patient understanding of their HBA1c result.[address] [address] Performed By: #### C BC, PTT, TROPI, GLYHGB ####[facility] [address] [place] [address] Hemoglobin A1c/Hemoglobin.total mass fraction (Bld) 5.6 % Normal 4.0-6.0 [facility] Comment on above: Performed By: #### C BC, PTT, TROPI, GLYHGB ####[facility] [address] [place] [address] Lipid Profileon 01-11-2018 Cholesterol 123 mg/dL Normal <200 [facility] Comment on above: Result Comment: Chol esterol Guidelines: <200 Desirable 200-240 Borderline >240 Undesirable Performed By: #### C BC, CP, LIPR, MG ####[facility] [address] [place] [address] Cholesterol to HDL Ratio 2.0 {ratio} Normal <5 [facility] Comment on above: Performed By: #### C BC, CP, LIPR, MG ####[facility] [address] [place] [address] HDL Cholesterol 63 mg/dL Normal >40 [facility] Comment on above: Result Comment: HDL Guidelines: <40 Undesirable 40-59 Borderline >59 Desirable Performed By: #### C BC, CP, LIPR, MG ####[address] [address] LDL Cholesterol 38 mg/dL Normal 0-130 [facility] Comment on above: Result Comment: LDL Guidelines: <100 Desirable 100-129 Near to/above Desirable 130-159 Borderline >159 UndesirableDirect (measured) LDL and calculated LDL are not interchangeable tests. Performed By: #### C BC, CP, LIPR, MG ####[facility] [address] [place] [address] Triglyceride 111 mg/dL Normal <150 [facility] Comment on above: Result Comment: Trig lyceride Guidelines: <150 Desirable 150- 199 Borderline 200-499 High >499 Very high Based on AHA Guidelines for fasting triglyceride, July 2012.[facility] [address] [place] [address] Performed By: #### C BC, CP, LIPR, MG ####[facility] [address] [place] [address] Cholesterol in VLDL mass conc NOT REPORTED Normal 1-30 [facility] Comment on above: Performed By: #### C BC, CP, LIPR, MG ####[address] [place] [address] Magnesiumon 01-11-2018 Magnesium 2.1 mg/dL Normal 1.6-2.6 [facility] Comment on above: Result Comment: [facility] [employer] [address] [place] [address] Performed By: #### C BC, CP, LIPR, MG ####[facility] [address] [place] [address] Plan of Careon 01-11-2018 HIM IP Note OR [employer] Hand Normal [facility] HIM IP Note OR [employer] Hand Normal [facility] Progress Noteon 01-11-2018 HIM IP Note OR [employer] Hand Normal [facility] Troponinon 01-11-2018 Troponin I.cardiac mass conc Normal [facility] Comment on above: Result Comment: Refe rence Range: <0.03 Within reference range. 0.03-0.09 Possible myocardial damage.Repeat at appropriate intervals to rule out chronic elevation. >= 0.10 Indicative of myocardial damage.Patients with high levels of Biotin oral intake (i.e >5mg/day) may have falsely decreased Troponin T levels. Samples collected within 8 hours of biotin intake may require additional information for diagnosis.[employer] [address] [place] [address] Performed By: #### T ROPI ####[address] [address] Troponin T.cardiac mass conc ug/L Normal <0.03 [facility] Comment on above: Result Comment: Trop onin T results cannot be compared to Troponin-I results. Performed By: #### T ROPI ####[address] [address] APTTon 01-10-2018 aPTT 23.8 s Normal 20.5-30.5 [facility] Comment on above: Result Comment: [facility] [employer] [address] [place] [address] Performed By: #### C BC, PTT, TROPI, GLYHGB ####[address] [address] CBCon 01-10-2018 Erythrocyte distribution width Auto Ratio (RBC) 14.2 % Normal 11.8-14.4 [facility] Comment on above: Performed By: #### C BC, PTT, TROPI, GLYHGB ####[address] [address] Erythrocytes (RBC) 4.47 10*6/uL Normal 4.21-5.77 [facility] Comment on above: Performed By: #### C BC, PTT, TROPI, GLYHGB ####[address] [address] Erythrocytes (RBC) 0.0 per 100 WBC Normal 0.0 M [facility] Comment on above: Result Comment: [address] [place] [address] Performed By: #### C BC, PTT, TROPI, GLYHGB ####[facility] [place] [address] Hematocrit (HCT) 41.3 % Normal 40.7-50.3 [facility] Comment on above: Performed By: #### C BC, PTT, TROPI, GLYHGB ####[address] [address] Hemoglobin mass conc (Bld) 13.5 g/dL Normal 13.0-17.0 [facility] Comment on above: Performed By: #### C BC, PTT, TROPI, GLYHGB ####[address] [address] MCH 30.2 pg Normal 25.2-33.5 [facility] Comment on above: Performed By: #### C BC, PTT, TROPI, GLYHGB ####[address] [address] MCHC mass conc (RBC) 32.7 g/dL Normal 28.4-34.8 [facility] Comment on above: Performed By: #### C BC, PTT, TROPI, GLYHGB ####[facility] [address]ila[address] [place] [address] MCV 92.4 fL Normal 82.6-102.9 [facility] Comment on above: Performed By: #### C BC, PTT, TROPI, GLYHGB ####[facility] [facility] [id number] [place] [address] Platelet mean volume (PMV) 10.1 fL Normal 8.1-13.5 [facility] Comment on above: Performed By: #### C BC, PTT, TROPI, GLYHGB ####[facility] [place] [address] Platelets 160 10*3/uL Normal 138-453 [facility] Comment on above: Performed By: #### C BC, PTT, TROPI, GLYHGB ####[facility] [place] [address] WBC (Leukocytes) 6.8 10*3/uL Normal 3.5-11.3 [facility] Comment on above: Performed By: #### C BC, PTT, TROPI, GLYHGB ####[facility] [id number] [place] [address] History and Physicalon 01-10 HIM IP Note OR Mandrel Press Hand Normal [facility] Plan of Careon 01-10-2018 HIM IP Note OR Mandrel Press Hand Normal [facility] Progress Noteon 01-10-2018 HIM IP Note OR Mandrel Press Hand Normal [facility] Troponinon 01-10-2018 Troponin I.cardiac mass conc Normal [facility] Comment on above: Result Comment: Refe rence Range: <0.03 Within reference range. 0.03-0.09 Possible myocardial damage.Repeat at appropriate intervals to rule out chronic elevation. >= 0.10 Indicative of myocardial damage.Patients with high levels of Biotin oral intake (i.e >5mg/day) may have falsely decreased Troponin T levels. Samples collected within 8 hours of biotin intake may require additional information for diagnosis.[facility] [address] [place] [address] [id number] ([phone] Performed By: #### C BC, PTT, TROPI, GLYHGB ####[facility] [place] [address] Troponin T.cardiac mass conc ug/L Normal <0.03 [facility] Comment on above: Result Comment: Trop onin T results cannot be compared to Troponin-I results. Performed By: #### C BC, PTT, TROPI, GLYHGB ####[facility] [place], [place] [id number] Vital Signs Date Time Vital Sign Value Performing Clinician Faci lity 2023 06:08-0500 SaO2% (BldA) [Mass fraction] 99 % Nadia Fitzpatrick MD Work Phone: [facility] [employer] 2023 05:49-0500 Body temperature 100.09 [degF] Nadia Fitzpatrick MD Work Phone: [facility] [employer] 2023 05:49-0500 Diastolic blood pressure 52 mm[Hg] Nadia Fitzpatrick MD Work Phone: [facility] [employer] 2023 05:49-0500 Heart rate 89 /min Nadia Fitzpatrick MD Work Phone: [facility] [employer] 2023 05:49-0500 Respiratory rate 18 /min Nadia Fitzpatrick MD Work Phone: [facility] [employer] 2023 05:49-0500 Systolic blood pressure 151 mm[Hg] Nadia Fitzpatrick MD Work Phone: [facility] [employer] 09-18-2023 13:40-0500 Diastolic blood pressure 68 mm[Hg] Shaheen Chappell MD Work Phone: [facility] 09-18-2023 13:40-0500 Heart rate 68 /min Shaheen Chappell MD Work Phone: [facility] 09-18-2023 13:40-0500 SaO2% (BldA) [Mass fraction] 97 % Shaheen Chappell MD Work Phone: [facility] 09-18-2023 13:40-0500 Systolic blood pressure 101 mm[Hg] Shaheen Chappell MD Work Phone: [facility] 09-18-2023 13:10-0500 Respiratory rate 16 /min Shaheen Chappell MD Work Phone: [facility] 09-18-2023 13:00-0500 Body temperature 97 [degF] Shaheen Chappell MD Work Phone: [facility] 09-18-2023 08:35-0500 Body height 167.6 cm Shaheen Chappell MD Work Phone: [facility] 09-18-2023 08:35-0500 Body mass index (BMI) [Ratio] 27.44 kg/m2 Shaheen Chappell MD Work Phone: [facility] 09-18-2023 08:35-0500 Body weight 77.11 kg Shaheen Chappell MD Work Phone: [facility] 08-14-2023 14:38-0500 Body height 167.6 cm Nikhil Mohr MD Work Phone: [facility] 08-14-2023 14:38-0500 Body mass index (BMI) [Ratio] 26.87 kg/m2 Nikhil Mohr MD Work Phone: [facility] 08-14-2023 14:38-0500 Body weight 75.52 kg Nikhil Mohr MD Work Phone: [facility] 08-14-2023 14:38-0500 Diastolic blood pressure 69 mm[Hg] Nikhil Mohr MD Work Phone: [facility] 08-14-2023 14:38-0500 Heart rate 72 /min Nikhil Mohr MD Work Phone: [facility] 08-14-2023 14:38-0500 SaO2% (BldA) [Mass fraction] 98 % Nikhil Mohr MD Work Phone: [facility] 08-14-2023 14:38-0500 Systolic blood pressure 102 mm[Hg] Nikhil Mohr MD Work Phone: [facility] 07-16-2023 13:41-0400 Body height 167.6 cm Jenine Hernandez MD Work Phone: [facility] 07-16-2023 13:41-0400 Body mass index (BMI) [Ratio] 27.11 kg/m2 Jennie Hernandez MD Work Phone: [facility] 07-16-2023 13:41-0400 Body weight 76.2 kg Jennie Hernandez MD Work Phone: [facility] 07-04-2023 09:34-0400 Body height 167.6 cm Jennie Hernandez MD Work Phone: [facility] 07-04-2023 09:34-0400 Body mass index (BMI) [Ratio] 27.12 kg/m2 Jennie Hernandez MD Work Phone: [facility] 07-04-2023 09:34-0400 Body weight 76.2 kg Jennie Hernandez MD Work Phone: [facility] 06-10-2023 10:18-0400 Body height 167.6 cm Jennie Hernandez MD Work Phone: [facility] 06-10-2023 10:18-0400 Body mass index (BMI) [Ratio] 27.12 kg/m2 Jennie Hernandez MD Work Phone: [facility] 06-10-2023 10:18-0400 Body weight 76.2 kg Jennie Hernandez MD Work Phone: [facility] 05-19-2023 09:07-0400 Body height 167.6 cm Jennie Hernandez MD Work Phone: [facility] 05-19-2023 09:07-0400 Body mass index (BMI) [Ratio] 27.12 kg/m2 Jennie Hernandez MD Work Phone: [facility] 05-19-2023 09:07-0400 Body weight 76.2 kg Jennie Hernandez MD Work Phone: [facility] 04-18-2023 12:33-0400 Body height 167.6 cm Jennie Hernandez MD Work Phone: [facility] 04-18-2023 12:33-0400 Body mass index (BMI) [Ratio] 26.63 kg/m2 Jennie Hernandez MD Work Phone: [facility] 04-18-2023 12:33-0400 Body weight 74.84 kg Jennie Hernandez MD Work Phone: [facility] 02-25-2023 08:48-0400 Body height 167.6 cm Jennie Hernandez MD Work Phone: [facility] 02-25-2023 08:48-0400 Body mass index (BMI) [Ratio] 26.63 kg/m2 Jennie Hernandez MD Work Phone: [facility] 02-25-2023 08:48-0400 Body weight 74.84 kg Jennie Hernandez MD Work Phone: [facility] 12-31-2022 13:46-0400 Body temperature 97.3 [degF] Rosa Garg DO Work Phone: [facility] 12-31-2022 13:46-0400 Diastolic blood pressure 71 mm[Hg] Rosa Garg DO Work Phone: [facility] 12-31-2022 13:46-0400 Heart rate 72 /min Rosa Garg DO Work Phone: [facility] 12-31-2022 13:46-0400 Respiratory rate 16 /min Rosa Garg DO Work Phone: [facility] [employer] 12-31-2022 13:46-0400 SaO2% (BldA) [Mass fraction] 92 % Rosa Garg DO Work Phone: [facility] [employer] 12-31-2022 13:46-0400 Systolic blood pressure 102 mm[Hg] Rosa Garg DO Work Phone: [facility] [employer] 12-31-2022 02:40-0400 Body mass index (BMI) [Ratio] 25.34 kg/m2 Rosa Garg DO Work Phone: [facility] [employer] 12-31-2022 02:40-0400 Body weight 71.2 kg Rosa Garg DO Work Phone: [facility] known [facility] [employer] 12-30-2022 12:46-0400 Body height 167.6 cm Rosa Garg DO Work Phone: [facility] known [facility] [employer] 05-31-2022 14:26-0400 Blood Pressure Location Julian DIAZ [facility] [place] 05-31-2022 14:26-0400 Diastolic blood pressure 60 mm[Hg] Julian DIAZ [facility] [place] 05-31-2022 14:26-0400 Heart rate 66 /min Julian DIAZ [facility] [place] 05-31-2022 14:26-0400 Respiratory rate 16 /min Julian DIAZ [facility] [place] 05-31-2022 14:26-0400 Systolic blood pressure 108 mm[Hg] Julian DIAZ [facility] [place] 03-09-2021 12:45-0400 Respiratory rate 16 /min [facility]: 03-09-2021 10:28-0400 Body height 167.6 cm Julian Dougherty MD [employer] [employer] Phone: 03-09-2021 10:28-0400 Body mass index (BMI) [Ratio] 25.5 kg/m2 Julian Dougherty MD [facility] Phone: 03-09-2021 10:28-0400 Body temperature 98.49 [degF] uJlian Dougherty MD [employer] [employer] Phone: 03-09-2021 10:28-0400 Body weight 71.67 kg Julian Dougherty MD [facility] Phone: 03-09-2021 10:28-0400 Heart rate 79 /min Julian Dougherty MD [facility] Phone: 03-09-2021 10:28-0400 SaO2% (BldA) [Mass fraction] 97 % Julian Dougherty MD [employer] [facility] Phone: 07-18-2020 09:15-0400 Pulse Oximetry 97 % [facility] [place] 07-18-2020 08:30-0400 BP Diastolic 96 mm[Hg] [facility] 07-18-2020 08:30-0400 BP Systolic 135 mm[Hg] [facility] 07-18-2020 08:18-0400 Body Temperature 98.01 [degF] [facility] 07-18-2020 08:18-0400 Pulse (Heart Rate) 84 /min [facility] 07-18-2020 08:18-0400 Respiratory Rate 16 /min [facility] 09-12-2019 02:36-0500 BP Diastolic 95 mm[Hg] [facility] , [place] 09-12-2019 02:36-0500 BP Systolic 138 mm[Hg] [facility] , [place] 09-12-2019 01:27-0500 Body Temperature 97.3 [degF] [facility] [place] 09-12-2019 01:27-0500 Pulse (Heart Rate) 86 /min [facility] [place] 09-12-2019 01:27-0500 Pulse Oximetry 97 % Justice Dewitt [place], [place] 09-12-2019 01:27-0500 Respiratory Rate 18 /min [facility] [place] 06-14-2019 12:44-0400 BP Diastolic 89 mm[Hg] [facility] [place] 06-14-2019 12:44-0400 BP Systolic 158 mm[Hg] Pablo Portillo [facility] , [place] 06-14-2019 12:44-0400 Pulse (Heart Rate) 68 /min [place] 06-14-2019 12:44-0400 Pulse Oximetry 95 % Pablo Portillo [facility] , [place] 06-14-2019 12:44-0400 Respiratory Rate 12 /min Pablo Portillo [facility], [place] 06-14-2019 10:15-0400 BMI (Body Mass Index) 24.53 kg/m2 Pablo Portillo [place], [place] 06-14-2019 10:15-0400 Body Temperature 98.01 [degF] Pablo Portillo [facility], [place] 06-14-2019 10:15-0400 Body weight 68.95 kg Pablo Portillo [place], [place] Encounters Encounter Date Encounter Type Care Provider Facility Start: 03-15-2024 End: 03-15-2024 ambulatory Mo Gongora MD Facility:[facility] Start: 02-11-2024 End: 02-11-2024 ambulatory [facility] Start: 11-24-2023 End: 11-24-2023 ambulatory ROMARIO MAN Not Available Start: 2023 End: 2023 Emergency department patient visit NADIA FITZPATRICK [facility] Start: 2023 End: 2023 Emergency department patient visit Nadia Fitzpatrick MD Work Phone: [facility] ED Comment on above: Viral illness (Prima ry Dx) Start: 09-18-2023 End: 09-18-2023 ambulatory [facility] Start: 09-18-2023 End: 09-18-2023 Subsequent hospital visit by physician Shaheen Chappell MD Work Phone: [facility] Comment on above: Sacroiliitis Start: 09-09-2023 ambulatory [facility] Start: 09-09-2023 Encounter for other preprocedural examination [facility] Start: 08-27-2023 [facility] Start: 08-14-2023 End: 08-14-2023 Office outpatient new 45 minutes Nikhil Mohr MD Work Phone: [facility] Neurology Comment on above: 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); Hyperreflexia Start: 08-13-2023 End: 08-13-2023 ambulatory [facility] Start: 08-13-2023 End: 08-13-2023 Encounter for other preprocedural examination [facility] Start: 07-16-2023 ambulatory JENNIE HERNANDEZ [facility] Start: 07-16-2023 End: 07-16-2023 Subsequent hospital visit by physician Jennie Hernandez MD Work Phone: [facility] Procedure Images Comment on above: Arrived Start: 07-16-2023 End: 07-16-2023 Patient encounter procedure Jennie Hernandez MD Work Phone: [facility] Comment on above: 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); Pain of both sacroiliac joints Start: 07-04-2023 [facility] JENNIE HERNANDEZ [facility] Start: 07-04-2023 End: 07-04-2023 Office outpatient visit 15 minutes Jennie Hernandez MD Work Phone: [facility] Comment on above: 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); Pain of both sacroiliac joints; Polyneuropathy Start: 06-16-2023 End: 06-16-2023 ambulatory Mo Gongora MD Facility:[facility] Start: 06-10-2023 ambulatory JENNIE HERNANDEZ [facility] Start: 06-10-2023 End: 06-10-2023 Patient encounter procedure Jennie Hernandez MD Work Phone: [facility] Comment on above: Osteoarthritis of ri ght sacroiliac joint (Primary Dx); Pain of right sacroiliac joint; Polyneuropathy; Lower extremity numbness; Osteoarthritis of left sacroiliac joint; Pain of left sacroiliac joint; Lumbar spondylosis Start: 05-19-2023 ambulatory SELF SELF [facility] Start: 05-19-2023 End: 05-19-2023 Office outpatient visit 15 minutes Jennie Hernandez MD Work Phone: [facility] Comment on above: Osteoarthritis of le ft sacroiliac joint (Primary Dx); Pain of left sacroiliac joint; Lumbar spondylosis Start: 04-18-2023 ambulatory JENNIE HERNANDEZ [facility] Start: 04-18-2023 End: 04-18-2023 Patient encounter procedure Jennie Hernandez MD Work Phone: [facility] Comment on above: Osteoarthritis of le ft sacroiliac joint (Primary Dx) Start: 04-18-2023 End: 04-18-2023 Subsequent hospital visit by physician Jennie Hernandez MD Work Phone: [facility] Procedure Images Comment on above: Arrived Start: 04-15-2023 ambulatory JENNIE HERNANDEZ [facility] Start: 02-25-2023 ambulatory JENNIE HERNANDEZ [facility] Start: 02-25-2023 End: 02-25-2023 Office outpatient new 30 minutes Jennie Hernandez MD Work Phone: [facility] Comment on above: Osteoarthritis of le ft sacroiliac joint (Primary Dx); Lumbar spondylosis; Lower extremity numbness Start: 01-13-[address] ROMARIO MAN [facility] ity:H1 Start: 01-08-2023 End: 01-09-[address] ROMARIO MAN Facility:H1 Start: 12-30-2022 End: 12-31-2022 Evaluation and management of inpatient ROMARIO MAN [facility] Start: 12-30-2022 End: 12-31-2022 Evaluation and management of inpatient Rosa Garg Work Phone: [facility] Comment on above: Chest pain, unspecif ied type (Primary Dx) Start: 12-18-2022 End: 12-19-[address] PEDRO PABLO CHAMBERS Facility:[facility] Start: 11-14-2022 End: 11-15-2022 ambulatory JULIANE MASSEY . Facility:[facility] Start: 11-06-2022 End: 11-07-2022 ambulatory JULIANE MASSEY . Facility:[facility] Start: 10-16-2022 End: 10-17-2022 ambulatory JULIANE AMSSEY . Facility:[facility] Start: 09-24-2022 End: 09-24-[address] NELSON IBRAHIM . Facility:[facility] Start: 09-14-2022 Encounter for genera l adult medical examination without abnormal findings DR ROMARIO MAN [facility] Start: 09-11-2022 End: 09-12-[address] ROMARIO MAN Facility:[facility] Start: 09-11-2022 End: 09-12-2022 Encounter for general adult medical examination without abnormal findings DR ROMARIO MAN Facility:[facility]1 Start: 08-22-2022 End: 08-22-[address] NELSON IBRAHIM . Facility: Start: 07-10-2022 End: 07-11-2022 ambulatory [facility] Start: 07-10-2022 End: 07-10-2022 Patient encounter procedure Julian DIAZ [facility] Start: 06-26-2022 End: 06-27-2022 ambulatory Julian DIAZ Facility::[id number] Start: 06-24-2022 Encounter for preprocedural laboratory examination DR JULIAN DIAZ . [facility] Start: 06-22-2022 End: 06-23-[address] JULIAN DIAZ . Facility:[facility]1 Start: 06-22-2022 End: 06-23-2022 Encounter for preprocedural laboratory examination DR JULIAN DIAZ . Facility:[facility]1 Start: 05-31-2022 End: 06-01-2022 ambulatory ROMARIO MAN PROVIDER Facility:[facility] Start: 05-31-2022 End: 05-31-2022 Patient encounter procedure Julian DIAZ General Surgery [facility] Start: 05-30-2022 End: 05-31-[address] NELSON IBRAHIM . Facility:[facility]1 Start: 05-15-2022 ambulatory [facility] DIAZ [facility] Start: 04-30-2022 End: 04-30-[address] NELSON IBRAHIM . Facility:[facility]1 Start: 04-23-2022 End: 04-23-[address] NELSON IBRAHIM . Facility:[facility]1 Start: 04-03-2022 End: 04-04-2022 ambulatory JULIANE MASSEY . Facility:[facility]1 Start: 03-25-2022 End: 03-25-2022 Subsequent hospital visit by physician Romario Man MD Work Phone: [facility] Laboratory Comment on above: Chronic fatigue Start: 03-12-2022 End: 03-13-[address] ROMARIO MAN Facility:[facility]1 Start: 03-12-2022 End: 03-12-[address] ROMARIO MAN Facility:[facility]1 Start: 02-21-2022 End: 02-22-[address] NELSON IBRAHIM . Facility:[facility]1 Start: 02-05-2022 End: 02-05-[address] ROMARIO MAN Facility:[facility]1 Start: 03-09-2021 End: 03-09-2021 Emergency department patient visit Julian Dougherty MD [facility] ED Comment on above: Acute gout of right wrist, unspecified cause (Primary Dx) Start: 08-17-2020 End: 08-17-2020 Subsequent hospital visit by physician [facility] Cardiology Stress Room [facility] Stress Lab Comment on above: Arrived Start: 08-16-2020 End: 08-18-2020 Subsequent hospital visit by physician [facility] Vascular Imaging Room [facility] Vascular Lab Comment on above: Other specified lisette pheral vascular diseases (HCC) Start: 08-16-2020 End: 08-16-2020 Subsequent hospital visit by physician [facility] Cardiology Stress Room [facility] Stress Lab Comment on above: Arrived Start: 07-18-2020 End: 07-18-2020 Emergency department patient visit Sebastian Carmichael Work Phone: [facility] ED Comment on above: Abdominal pain, epig astric (Primary Dx) Start: 09-12-2019 End: 09-12-2019 Emergency department patient visit Justice Shaver Work Phone: [facility] ED Comment on above: Trapezius muscle spa sm (Primary Dx) Start: 06-14-2019 End: 06-14-2019 Emergency department patient visit Palbo Portillo Work Phone: [facility] ED Comment on above: Chronic pain of both shoulders (Primary Dx); Neck pain, chronic; Nonspecific chest pain Start: 01-29-2018 End: 01-30-2018 Ambulatory DEFAULT PHYSICIAN Facility:[facility] Start: 01-20-2018 End: 01-21-2018 Ambulatory DEFAULT PHYSICIAN Facility:[facility] Start: 01-10-2018 End: 01-13-2018 Evaluation and management of inpatient [facility] Procedures Date Procedure Procedure Detail Performing [...] Start: 12-31-2022 Assay of troponin quantitative [facility] Work Phone: Start: 12-31-2022 BASIC METABOLIC PANEL W/ REFLEX TO MG FOR LOW K [facility] Work Phone: Start: 12-31-2022 Lipid panel [facility] Work Phone: Start: 12-31-2022 End: 12-31-2022 Ecg routine ecg w/least 12 lds w/i&r [facility] Work Phone: Start: 12-30-2022 Echo tthrc r-t 2d w/wom-mode compl spec&colr d [facility] Work Phone: Start: 12-30-2022 RESPIRATORY PANEL, MOLECULAR, WITH COVID-19 [facility] Work Phone: Start: 12-30-2022 Rhythm ecg [...] on above: Performed By: #### HGBHCT #### [facility] [address] [place] [address] Dr. Raimundo Estrada Start: 06-26-2022 Colonoscopy Julian [...] Phone: Start: 07-18-2020 Comprehensive metabolic panel Sebastian agffney Work Phone: Start: 07-18-2020 Urinalysis microscopic only [...] SIGNS SHOWKAT AHMAD Start: 01-12-2018 DIAGNOSTIC CARDIAC ACCOUNT RESOLUTION EXPERT PROCEDURE SHOWKAT AHMAD Start: 01-12-2018 APTT SHOWKAT [...] 12-LEAD SOREN AHMAD Start: 01-10-2018 [facility] Start: 01-10-2018 INITIATE OXYGEN THERAPY PROTOCOL [facility] Start: 01-10-2018 INTAKE AND OUTPUT SHOWLIOR SPRAGUED Start: 01-10-2018 NOTIFY PHYSICIAN (SPECIFY) SOREN SPRAGUED Start: 01-10-2018 PLACE INTERMITTENT PNEUMATIC COMPRESSION DEVICE [facility] Start: 01-10-2018 PULSE OXIMETRY SPOT CHECK [facility] Start: 01-10-2018 TELEMETRY MONITORING SHOWLIOR SPRAGUED Start: 01-10-2018 VITAL SIGNS [facility] Start: 01-10-2018 PATIENT STATUS (DIRECT) [facility] Start: 10-06-2017 Cardiac catheterization Julian DIAZ Start: 10-06-2005 Cardiac catheterization Julian DIAZ Coronary artery sten t (physical object) Julian DIAZ Extraction of cataract Robi sherif DIAZ History of operative procedure on lumbar spinal structure Julian DIAZ Plan of Treatment Date Care Activity Detail Author Start: 07-01-2031 DTaP/Tdap/Td vaccine (3 - Td or Tdap) DTaP/Tdap/Td vaccine (3 - Td or Tdap) [employer] (formerly known as [employer] Start: 12-31-2025 Diabetes screen Diabetes screen [facility] Start: 2025 Pneumococcal 0-64 years Vaccine (3 - PPSV23 if available, else PCV20) Pneumococcal 0-64 years Vaccine (3 - PPSV23 if available, else PCV20) [facility] [employer] Start: 2025 Pneumococcal 0-64 years Vaccine (3 - PPSV23 or PCV20) Pneumococcal 0-64 years Vaccine (3 - PPSV23 or PCV20) [facility] [employer] Start: 01-01-2024 Lipid panel Lipids [facility] [employer] Start: 09-18-2023 End: 09-18-2023 Arthrodesis sacroiliac joint percutaneous ARTHRODESIS SACROILIAC JOINT MINIMALLY INVASIVE W/ TRANSFIXING DEVICE Sacroiliitis 09/18/2023 10:52 AM EST [facility] Start: 09-18-2023 End: 09-18-2023 Fluoroscopy up to 1 hour physician/qhp time FLUOROSCOPY IN OR Sacroiliitis 09/18/2023 10:52 AM EST [facility] Start: 08-14-2023 End: 08-14-2023 Patient encounter procedure 08/14/2023 2:45 PM EST Office Visit [facility] [address] [place] [address] Nikhil Mohr MD [address] [place] [address] [facility] Start: 08-14-2023 End: 08-14-2024 B12/folate level B12 & FOLATE Lab Routine Hereditary and idiopathic peripheral neuropathy Expected: 08/14/2023, Expires: 08/14/2024 [facility] Comment on above: Expected: 08/14/2023, Expires: Start: 08-14-2023 End: 08-14-2024 Hemoglobin A1c/Hemoglobin.total in Blood HEMOGLOBIN A1C Lab Routine Hereditary and idiopathic peripheral neuropathy Expected: 08/14/2023, Expires: 08/14/2024 [facility] [facility] Comment on above: Expected: 08/14/2023, Expires: Start: 08-14-2023 End: 08-14-2024 MILENA AND PE, SERUM MILENA AND PE, SERUM Lab Routine Hereditary and idiopathic peripheral neuropathy Expected: 08/14/2023, Expires: 08/14/2024 [facility] Comment on above: Expected: 08/14/2023, Expires: Start: 08-14-2023 End: 08-14-2024 MR Cervical spine WO contrast MRI SPINE CERVICAL WITHOUT CONTRAST Imaging Routine Hyperreflexia Expected: 08/14/2023, Expires: 08/14/2024 [facility] Comment on above: Expected: 08/14/2023, Expires: Start: 08-14-2023 End: 08-14-2024 MR Thoracic spine WO contrast MRI SPINE THORACIC WITHOUT CONTRAST Imaging Routine Hyperreflexia Expected: 08/14/2023, Expires: 08/14/2024 [facility] Comment on above: Expected: 08/14/2023, Expires: Start: 08-14-2023 End: 08-14-2024 VITAMIN B6 VITAMIN B6 Lab Routine Hereditary and idiopathic peripheral neuropathy Expected: 08/14/2023, Expires: 08/14/2024 [facility] Comment on above: Expected: 08/14/2023, Expires: 4 Start: 07-04-2023 End: 07-04-2023 Patient encounter procedure 07/04/2023 9:00 AM EDT Office Visit [facility] [address] [place] [address] Jennie Hernandez MD [address] [place] [address] [facility] Start: 06-10-2023 End: 06-10-2023 Patient encounter procedure 06/10/2023 10:00 AM EDT Office Visit [facility] [address] [place] [place] [address] Jennie Hernandez MD [address] [place] [address] [facility] Start: 06-06-2023 COVID-19 Vaccine ( season) COVID-19 Vaccine ( season) [facility] Start: 06-06-[address] [facility] Start: 05-19-2023 End: 05-19-2023 Patient encounter procedure 05/19/2023 9:00 AM EDT Office Visit [facility] [address] [place] [address] Jennie Hernandez MD [address] [place] [address] [facility] Start: 05-06-2023 Influenza vaccination Flu vaccine (#1) [facility] Start: 04-18-2023 End: 04-18-2023 Patient encounter procedure 04/18/2023 12:40 PM EDT Office Visit [facility] [address] [place] [place] [address] Jennie Hernandez MD [address] [place] [place] [address] [facility] Start: 04-15-2023 End: 04-15-2023 Patient encounter procedure 04/15/2023 10:15 AM EDT Office Visit [facility] [address] [place] [address] Jw Cee MD [address] [place] [address] [facility] Start: 03-25-2023 Hemoglobin A1c measurement A1C test (Diabetic or Prediabetic) [facility] Start: 02-25-2023 End: 02-26-2024 Electromyography EMG & NERVE CONDUCTION Neurology Routine Lower extremity numbness Expected: 02/25/2023, Expires: 02/26/2024 [facility] Comment on above: Expected: 02/25/2023, Expires: Start: 01-11-2023 Lipid screen Lipid screen [facility] [place] Start: 04-11-2022 End: 04-11-2022 Patient encounter procedure 04/11/2022 Office Visit Neurology Con Cowan MD [address] [place] [id number] [facility] Start: 06-06-2021 Influenza vaccination Flu vaccine (Season Ended) [facility] Work Phone: Start: 01-10-2021 Diabetes screen Diabetes screen [facility] Start: 2020 Respiratory Syncytial Virus (RSV) or age 60 yrs+ (1 - 1-dose 60+ series) Respiratory Syncytial Virus (RSV) or age 60 yrs+ (1 - 1-dose 60+ series) [facility] Start: 08-17-2020 End: 08-17-2020 Appointment 08/17/2020 Appointment Stress Lab [facility] Start: 06-06-2020 Influenza vaccination Flu vaccine (#1) [place], [place] Start: 06-06-2019 Influenza vaccination Flu vaccine (#1) [place] Start: 01-11-2019 Lipid panel [facility] Start: 01-11-2019 Lipid screen Lipid [place] Start: 08-13-2018 Prostate specific antigen measurement Prostate Specific Antigen (PSA) Screening or Monitoring [facility] Start: 2010 Colon cancer screen colonoscopy Colon cancer screen colonoscopy [place] Start: 2010 Prostate specific antigen measurement PROSTATE CANCER SCREENING DISCUSSION [facility] Start: 2010 Screening for malignant neoplasm of colon Colon cancer screen colonoscopy [place] Start: 2010 Shingles Vaccine (1 of 2) Shingles Vaccine (1 of 2) [place] Start: 2010 Zoster vaccine hzv live for subcutaneous use ZOSTER (SHINGLES) VACCINE (1 of 2) [facility] Start: 2005 Screening for malignant neoplasm of colon [facility] Start: 2000 Lipid panel LIPID SCREENING [facility] Start: 1979 DTaP/Tdap/Td vaccine (1 - Tdap) DTaP/Tdap/Td vaccine (1 - Tdap) [place] Start: 1979 Third diphtheria, tetanus and acellular pertussis (DTaP) vaccination TDAP (ADULT) [facility] Start: 1978 Hepatitis C screening Hepatitis C screen [facility] Start: 1975 HIV screen HIV screen [place] Start: 1975 HIV screening [facility] Start: 1972 COVID-19 Vaccine (1) COVID-19 Vaccine (1) [facility] Phone: Start: 1972 Depression Screen Depression Screen [facility] [employer] Start: 1971 DTaP/Tdap/Td vaccine (1 - Tdap) DTaP/Tdap/Td vaccine (1 - Tdap) [place] Start: 1966 Pneumococcal 0-64 years Vaccine (1 of 1 - PPSV23) Pneumococcal 0-64 years Vaccine (1 of 1 - PPSV23) [place] Start: 1966 Pneumococcal 0-64 years Vaccine (1 of 2 - PPSV23) Pneumococcal 0-64 years Vaccine (1 of 2 - PPSV23) [facility] [employer] Phone: Start: 04-09-1961 COVID-19 VACCINE (#1) COVID-19 [facility]ACCINE (#[facility]) [facility] Start: 1960 Hepatitis C screen Hepatitis C screen [place], [place] Start: 1960 [facility] Start: 1960 Tetanus vaccination TETANUS [facility] End: 01-02-2023 Basic Metabolic Panel w/ Reflex to MG Basic Metabolic Panel w/ Reflex to MG Lab Routine Daily for 3 Days starting 12/31/2022 until 01/02/2023, 1 completed [employer] Phone: Comment on above: Daily for 3 Days starting 12/31/2022 unt il 01/02/2023, 1 completed End: 01-02-2023 CBC W Auto Differential panel - Blood CBC with Auto Differential Lab Routine Daily for 3 Days starting 12/31/2022 until 01/02/2023, 1 completed [employer] Phone: Comment on above: Daily for 3 Days starting 12/31/2022 unt il 01/02/2023, 1 completed EKG 12 Lead EKG 12 Lead ECG STAT 06/14/2019 10:26 AM EDT [place] EKG 12 lead EKG 12 lead ECG Routine As Needed until discontinued starting 12/30/2022 [facility]: Comment on above: As Needed until discontinued starting End: 03-25-2022 Hemoglobin A1c/Hemoglobin.total in Blood [employer] Phone: Comment on above: 1 Occurrences starting 03/25/2022 until 03/25/2022 End: 12-31-2022 Hemoglobin A1c/Hemoglobin.total in Blood Hemoglobin A1C Lab Routine Tomorrow AM for 1 Occurrences starting 12/31/2022 until 12/31/2022 [employer] Phone: Comment on above: Tomorrow AM for 1 Occurrences starting 0 12/31/2022 until 12/31/2022 Hemoglobin A1c/Hemoglobin.total in Blood Hemoglobin A1C Lab Routine 12/31/2022 6:30 AM EDT [employer] Phone: Initiate ED RT Bronc hospasm Protocol Initiate ED RT Bronchospasm Protocol Respiratory Care Routine Daily until discontinued starting 2023 [employer] Comment on above: Daily until discontinued starting 2023 End: 12-30-2022 Intermittent pulse oximetry Pulse Oximetry Spot Check Respiratory Care Routine One Time for 1 Occurrences starting 12/30/2022 until 12/30/2022 [employer] Phone: Comment on above: One Time for 1 Occurrences starting 12/05 until 12/30/2022 End: 03-25-2022 Nuclear Ab [Titer] in Serum by Immunofluorescence [employer] Phone: Comment on above: 1 Occurrences starting 03/25/2022 until 03/25/2022 Oxygen therapy [[facility]] Initiate Oxygen Therapy Protocol Respiratory Care Routine As Needed until discontinued starting 12/30/2022 [employer] Phone: Comment on above: As Needed until discontinued starting End: 2023 Portable XR Chest AP single view [employer] Comment on above: Once for 1 Occurrences starting 10/10/19 until 2023 End: 09-18-2023 RF Unspecified body region Views during surgery [facility] Comment on above: One Time for 1 Occurrences starting 09/05 until 09/18/2023 Stress test, lexiscan Stress kendra t, lexiscan Cardiac Services Routine 12/31/2022 3:03 PM EDT [employer] Phone: Vibratory Airway Clearance Vibra tory Airway Clearance Respiratory Care Routine Every 1hr while awake until discontinued starting 12/30/2022 [employer] Phone: Comment on above: Every 1hr while awake until discontinued starting 12/30/2022 End: 03-25-2022 Vitamin B12 & Folate [employer] Phone: Comment on above: 1 Occurrences starting 03/25/2022 until 03/25/2022 XR CHEST PORTABLE XR CHEST HEDY BLE Imaging STAT 06/14/2019 10:43 AM EDT [place] Payers Date Payer Category Payer Unknown [id number] 2022 Unknown 2022 Unknown [id number] 2021 Unknown [id number] 2021 Unknown [id number] 2019 Private Health Insurance [facility] [id number] 2019-Present [phone] [address] [place] [address] [id number] .[id number] 2019 Private Health Insurance [employer] xxxxxxxxxx 2019-Present [phone] [address] [place] [address] xxxxxxxxxx [id number] .7.3.284028.315 2016 Unknown [id number] 2014 Unknown [id number] 1.2.840.703869.1.13.239.2 .7.3.017015.315 1960 Unknown [id number] 2.16.840.1.281668.3.579.2 .727 1960 Unknown [id number] 2.16.840.1.727860.3.579.2 .727 1960 Unknown [id number] 2.16.840.1.269717.3.579.2 .727 1960 Unknown [id number] 2.16.840.1.612754.3.579.2 .727 1960 Unknown [id number] 2.16.840.1.053050.3.579.2 .593 1960 Unknown [id number] 2.16.840.1.857147.3.579.2 .593 1960 Unknown [id number] 2.16.840.1.639949.3.579.2 .593 1960 Unknown [id number] 2.16.840.1.162272.3.579.2 .593 1960 Unknown [id number] 2.16.840.1.787374.3.579.2 .593 1960 Unknown [id number] 2.16.840.1.222623.3.579.2 .593 1960 Unknown [id number] 2.16.840.1.754542.3.579.2 .593 1960 Unknown [id number] 2.16.840.1.398366.3.579.2 .593 1960 Unknown [id number] 2.16.840.1.263417.3.579.2 .593 1960 Unknown [id number] 2.16.840.1.880440.3.579.2 .593 1960 Unknown [id number] 2.16.840.1.019382.3.579.2 .593 1960 Unknown [id number] 2.16.840.1.984352.3.579.2 .593 1960 Unknown [id number] 2.16.840.1.787859.3.579.2 .593 1960 Unknown [id number] 2.16.840.1.112759.3.579.2 .593 1960 Unknown [id number] 2.16.840.1.529686.3.579.2 .593 1960 Unknown [id number] 2.16.840.1.245183.3.579.2 .593 1960 Unknown [id number] 2.16.840.1.672039.3.579.2 .593 1960 Unknown [id number] 2.16.840.1.537992.3.579.2 .593 1960 Unknown [id number] 2.16.840.1.495249.3.579.2 .593 1960 Unknown [id number] 2.16.840.1.816454.3.579.2 .593 1960 Unknown [id number] 2.16.840.1.597817.3.579.2 .983 1960 Unknown [id number] 2.16.840.1.902828.3.579.2 .983 1960 Unknown [id number] 2.16.840.1.153008.3.579.2 .983 1960 Unknown [id number] 2.16.840.1.008737.3.579.2 .983 1960 Unknown [id number] 2.16.840.1.541802.3.579.2 .983 1960 Unknown [id number] 2.16.840.1.267705.3.579.2 .983 1960 Unknown [id number] 2.16.840.1.729780.3.579.2 .983 1960 Unknown [id number] 2.16.840.1.474711.3.579.2 .983 1960 Unknown [id number] 2.16.840.1.298156.3.579.2 .983 1960 Unknown [id number] 2.16.840.1.025620.3.579.2 .983 1960 Unknown [id number] 2.16.840.1.960744.3.579.2 .983 1960 Unknown [id number] 2.16.840.1.489267.3.579.2 .983 1960 Unknown [id number] 2.16.840.1.444938.3.579.2 .983 1960 Unknown [id number] 2.16.840.1.692097.3.579.2 .983 1960 Unknown [id number] 2.16.840.1.581082.3.579.2 .173 1960 Unknown [id number] 2.16.840.1.294751.3.579.2 .173 1960 Unknown [id number] 2.16.840.1.116370.3.579.2 .1259 1960 Unknown [id number] 2.16.840.1.110867.3.579.2 .196 1960 Unknown [id number] 2.16.840.1.373489.3.579.2 .196 1959 Unknown [id number] 1.2.840.437142.1.13.239.2 .7.3.118341.315 1959 Unknown [id number] Social History Date Type Detail Facility Start: 06-14-2019 End: 12-30-2022 Tobacco smoking status [facility] Never smoker [facility] Start: 06-14-2019 End: 12-30-2022 Alcohol intake Yes [facility] Start: 06-14-2019 Alcohol Comment not every day [facility] CARL[facility] Start: 1960 Sex Assigned At Not on file [facility] [place] [place] Start: 09-12-2019 End: 12-30-2022 Alcohol intake Current drinker of alcohol (finding) [place] Start: 07-18-2020 End: 12-30-2022 Tobacco use and exposure Never used [facility] Start: 03-15-2022 End: 12-30-2022 Exposure to SARS-CoV-2 (event) Not sure [place] Start: 03-09-2021 End: 12-30-2022 Alcohol intake [employer] Tobacco smoking status Never [facility] Start: 12-30-2022 History SDOH Alcohol Frequency 5 [employer] Work Phone: Start: 12-30-2022 History SDOH Alcohol Std Drinks 2 [employer] Work Phone: Start: 09-09-2023 Alcohol Comment 3-4 BEERS DAILY [facility] How often to you hav e a drink containing alcohol? 4 or more times a week [employer] How many standard dr inks containing alcohol do you have on a typical day? 3 or 4 [employer] How often do you hav e 6 or more drinks on 1 occasion? Daily or almost daily [employer] Medical Equipment Procedure Code Equipment Code Equipment [...] prepare for safety after surgery. (Met today) Captain Room Service Goals: Independent core exercises for fdc use to prevent reoccurrence. Return to normal activity of house work/leisure/ADLs with post op therapy as ordered by surgeon if needed. Functional Status Date Assessment Result Facility 05-31-2022 Functional Status N/A [facility] Clinical Notes 02-21-2022 to 02-11-2024 Discharge InstructionsNursing Notes - Griselda Craig RN - 09/18/2023 2:38 PM ESTNursing Notes - Griselda Craig RN - 09/18/2023 2:38 PM ESTNursing Notes - Venecia Rivera RN - 09/18/2023 2:18 PM EST Note Date & Type Note Facility 02-11-2024 Note [place] [facility] Subjective Noel Alva is a [...] within normal limits. He underwent cath at [facility] 01/12/2018 due to chest pain that [...] the morning. D (more content not included)... [facility] 2023 Hospital Discharge instructions Nadia Fitzpatrick MD [...] or concern. documented in this encounter [facility] 09-18-2023 Note #Cardiac risk strati fication [...] Normal diastolic function No significant valvular abnormalities [facility] 09-18-2023 Nurse Note Pt provided with discharge instructions. Pt Iv removed and belongings gathered. Pt was wheeled to car by surgery staff and driven home by family. [facility] 09-18-2023 Miscellaneous Notes Pt provided with discharge [...] this time POST OPERATIVE/PROCEDURE NOTE Noel Alva ([id number]) SURGEON Surgeon(s) and Role: * Shaheen Chappell MD - Primary CATHOLIC PRIEST Marques ANESTHESIOLOGIST CHART CALCULATOR: Avinash Adams APRN-CHART CALCULATOR Student Nurse Porter Marina: Amanda Murphy SURGICAL STAFF Water Operator: Caryn Tineo RN Registered Nurse Access Developer: Angeline Mohan RN Scrub Person: Luiza Calderon [...] 2023 12:13 PM documented in this encounter [facility] 09-18-2023 Nurse Note OT in with pt at this time [facility] 09-18-2023 History of Present illness Narrative [...] and can help during recovery) Primary Language Gambian PRIOR LEVEL AM-PAC Activity Inpatient Short Form [...] LUE Assessment WFL Supine to Sit Mobility [place] Level: Supine->Sit contact guard assist Bed Features/Set-up: Supine->Sit Flat Skilled Rationale Verbal cues Skilled Intervention/Details: Supine->Sit pt reorted that he knew how to log roll but twisted to get up even with vcs and attempts to physically assist with proper technique Sit to Stand Transfer [place] Level: Sit->Stand contact guard assist Assistive Device: Sit->Stand 2 wheeled walker Skilled Rationale Hand placement;Verbal cues Skilled Intervention/Details: Sit->Stand pt pulling up on the walker with both hands- cues to push off Stand to Sit Transfer [place] Level: Stand->Sit stand-by assist Assistive Device: Stand->Sit [...] assist with R sock Acute AMPAC Acute [facility] Assessments Daily Activity Inpatient Short Form CURRENT [...] Low (problem-focused assessments w/limited treatment options) 09/18/23 [id number] Surgery Information RN Approved Intervention as tolerated [...] bed mobility & transfers with supervision to PR. He was provided education review with log [...] Completed? yes Therapist Information License # [place] [id number] General Information Pertinent History of Current Problem The patient is a 62 year old male with sacroiliitis who underwent Right SI fixation. He was referred to physical therapy for post procedure education review & mobility. Jc Farmer, PT documented in this encounter [facility] 09-18-2023 Nurse Note Pt ambulating in [place] with PT without difficulty. [facility] 09-18-2023 Nurse Note PT in with pt at this time [facility] 09-18-2023 Nurse Note Discharge instructions provided, pt states understanding, including the sedentary activity as described, denies questions. [facility] 09-18-2023 Hospital Discharge instructions Venecia Rivera [...] take percocet prescribed by . Proceed with Ovid as prescribed by Dr. Chappell-when Ovid is completed, you may resume percocet from [...] this carefully. Please attend family, community and zoroastrian events as soon as possible after your [...] should be faxed. documented in this encounter [facility] 09-18-[address] Chappell in to see pt at this time [facility] 09-18-2023 Surgery Postoperative evaluation and management note POST OPERATIVE/PROCEDURE NOTE Noel Alva ([id number]) SURGEON Surgeon(s) and Role: * Shaheen Chappell MD - Primary CATHOLIC PRIEST Marques ANESTHESIOLOGIST CHART CALCULATOR: Avinash Adams APRN-CHART CALCULATOR Student Nurse Porter Marina: Amanda Murphy SURGICAL STAFF Water Operator: Caryn Tineo RN Registered Nurse Access Developer: Angeline Mohan RN Scrub Person: Luiza Calderon [...] Chappell MD September 18, 2023 12:13 PM [facility] 08-14-2023 History of Present illness Narrative [facility] NOTE Chief Complaint Patient [...] not smoke. He is managed [facility] [place]. He is receiving Percocet and Lyrica. Lyrica [...] lids. There is no papilledema on fundoscopy. carbonizer tester III, IV and : Extraocular movements full [...] being managed by his pain doctors in [place]. Noel was seen today for new patient. Diagnoses and all orders for this visit: Hereditary and idiopathic peripheral neuropathy - HEMOGLOBIN A1C; Future - B12 & FOLATE; Future - VITAMIN B6; Future - MILENA AND PE, SERUM; Future Hyperreflexia - MRI SPINE CERVICAL WITHOUT CONTRAST; Future - MRI SPINE THORACIC WITHOUT CONTRAST; Future Nikhil Mohr MD 08/14/2023 documented in this encounter [facility] 08-13-2023 Note Cardiovascular Medic ine [facility] SUBJECTIVE Chief Complaint Patient presents with [...] his right hip with Dr. Chappell in [place]. Had labs in December 2022. history of CAD s/p stenting of the LAD in 2004, echocardiogram in 2010 was within normal limits. He underwent cath at [facility] 01/12/2018 due to chest pain that [...] ASHD (arteriosclerotic heart disease) Dyslipidemia Intermittent claudication ([facility]) Mild intermittent asthma without complication Paresthesia of upper limb Peripheral vascular disease ([facility]) Primary hypertension S/P angioplasty with stent S/P cardiac cath Unstable angina ([facility]) Viral syndrome Past Medical History: Diagnosis Date Coronary artery disease Hypertension PVD (peripheral vascular disease) ([facility]) Family History Problem Relation Name Age of [...] Mood and Affect (more content not included)... [facility] 08-13-2023 Note Patient here for 1 [...] his right hip with Dr. Chappell in [place]. Had labs in December 2022. Review of Systems Cardiovascular: Positive for chest pain, claudication and dyspnea on exertion. Musculoskeletal: Positive for arthritis, back pain, joint pain and myalgias. Neurological: Positive for numbness. All other systems reviewed and are negative. [facility] 07-16-2023 History of Present illness Narrative [...] therapy, medications, SI belt, therapeutic injections. Inadequate fdc relief from therapeutic injection. 100% relief while [...] therapy, medications, SI belt, therapeutic injections. Inadequate fdc relief from therapeutic injection. 100% relief while [...] MD, [facility] Reformatory Attendant - [facility][1] for Sports Health documented in this encounter [facility] 07-16-2023 Instructions Eric Luu - 07/16/2023 [...] associated with corticosteroids. documented in this encounter [facility] 07-04-2023 History of Present illness Narrative [...] Topical creams Physical therapy? Done recently at [facility] Xrays? Lumbar spine 12/2022 done at [place], bilateral hips and pelvis 01/08/23 MRI? 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 Done recently at [facility] Xrays? Lumbar spine 12/2022 done at [place], bilateral hips and pelvis 01/08/23 MRI? 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 Additions if any: Jennie Hernandez MD, [facility] Reformatory Attendant - [facility] documented in this encounter [facility] 06-10-2023 History of Present illness Narrative [...] MD, [facility] Reformatory Attendant - [facility][1] for Sports Health documented in this encounter [facility] 05-19-2023 History of Present illness Narrative [...] Topical creams Physical therapy? Done recently at [place] [facility] Xrays? Lumbar spine 12/2022 done at [place], bilateral hips and pelvis 01/08/23 MRI? 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 Done recently at [facility] Xrays? Lumbar spine 12/2022 done at [place], bilateral hips and pelvis 01/08/23 MRI? 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 Noel may call the office with any questions or concerns. 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 Noel may call the office with any questions or concerns. Referrals:None Medications prescribed today: None Follow up plan: Sports US guided left sacroiliac joint injection with ELEMENTARY SCHOOL ART TEACHER Complexity of problem(s): Mild Risk of morbidity [...] Additions if any: Jennie Hernandez MD, [facility] Reformatory Attendant - [facility] documented in this encounter [facility] 12-31-2022 History of Present illness Narrative Court Orderly reviewed discharge instructions with patient. No new [...] home following this hospitalization. Patient resides in [place] alone. He uses no DME and has no outside resources or services currently in place. 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 He is independent with all activities of [...] Priscilla, as his decision maker if needed. VEHICLE COST ENGINEER to monitor and assist with any further [...] Well developed, well nourished with no malnutrition Property Assessment Monitor consult initiated Hospital Prophylaxis: DVT: Lovenox Stress Ulcer: H2 Sarah Disposition: Shared decision making: All test results, treatment options and disposition options were discussed with the patient today Social determinants of health that may impact management: none Code status: Full Code Disposition: Discharge plan is home [facility] Advanced Care Planning documentation: [x] I have [...] the patient's medical record. [DOES NOT SATISFY [facility] PERFORMANCE] Cece Villalobos, AUTUMN - LIFE SKILLS SPECIALIST , BAGGAGE AGENT, INSTRUMENT MAN-C Hospitalist Medicine 12/31/2022, 9:21 AM Associated attestation - Kendell Camacho MD - 12/31/2022 5:52 PM EDT Images from the original note were not included. [address] , [place], [place], [address] Attestation Patient: Noel Alva Date of Admission: 12/30/2022 6:09 AM Hospital Day # 1 Date of Evaluation: 12/31/2022 I personally evaluated and examined the patient [id number] in conjunction with the PA/INSTRUMENT MAN and agree with the management and dispostition of the patient. Please see the PA/INSTRUMENT MAN's note for full details. My argueta findings [...] with the plan as outlined in the INSTRUMENT MAN/PA's note Disposition: Discharge plan is pending Please note that this chart was generated using voice recognition [employer] dictation software. Although every effort was made to ensure the accuracy of this automated manager field service, some errors in manager field service may have occurred. Kendell Camacho MD 12/31/2022 5:[address] Orderly to bedside to complete morning assessment. Upon entry to room, pt sitting up in bed, respirations even and unlabored while on room air. Vitals obtained and assessment completed, see flow sheet for details. Dr Camacho at bedside, reviewed pts blood pressure medications with him, okay to hold Norvasc and Metoprolol this morning. Pt denies needs from real estate underwriter at this time. Call light in reach. Care ongoing. Noted real estate underwriter had not urinated yet this shift. [...] bedside table are within reach, will monitor. Court Orderly offered meds to bed but patient declined. Echocardiogram/Doppler done at bedside. Instructed on policies and procedure. Spoke to cristian Zhao CNP for real estate underwriter to correct home medications. Okay to add: protonix, iron, Mobic, Lisinopril, and Amlodipine. Cardiology consult called to office. When reviewing home medications it was noted that there were some differences in doses of medications. Called [facility] and clarified medications. Will update list [...] reach. Care ongoing. documented in this encounter [employer] Phone: 12-31-2022 Hospital Discharge instructions Ana Gutierres [...] at most local grocery stores, pharmacies, and [employer]. If you have any questions about your diet or nutrition, call the hospital and ask for the dietitian. Cardiac: low sodium, low cholesterol, low fat documented in this encounter [employer] Phone: 12-31-2022 Hospital course Narrative Discharge Summary [...] sharp in the left chest. No radiation. [place] burning sensation when the chest pain subsided. [...] discharge home he will follow-up with his personal banking advisor in [place]. Consultants: Dr. Mohr, cardiology Procedures: Stress Test [...] Your Medications These medications were sent to [facility] [address] [place] [address], [place] - [address] [facility] - P [phone] - f [phone] [address] [address], [facility] [address] atorvastatin 20 MG tablet Patient Instructions: Activity: activity as tolerated Diet: cardiac diet Wound Care: none needed Other: None Disposition: Discharge to Home Follow up: Patient will be followed by Romario Man MD in 1-2 weeks CORE MEASURES on Discharge (if applicable) BRITTNY/ARB in CHF: NA Statin in PR: NA ASA in PR: NA Statin in CVA: NA Antiplatelet in CVA: NA Total time spent on discharge services: 40 minutes Including the following activities: Evaluation and Management of patient Discussion with patient and/or surrogate about current care plan Coordination with Case Management and/or Ruby Engineer Coordination of care with Consultants (if applicable) Coordination of care with Receiving Facility Physician (if applicable) Completion of DME forms (if applicable) Preparation of Discharge Summary Preparation of Medication Reconciliation Preparation of Discharge Prescriptions Signed: Cece Villalobos APRN - [place], AUTUMN, INSTRUMENT MAN-C 12/31/2022, 5:06 PM Associated attestation - Kendell Camacho MD - 12/31/2022 5:53 PM EDT Images from the original note were not included. [address], [address] Attestation Patient: Noel Alva Date of Admission: 12/30/2022 6:09 AM Hospital Day # 1 Date of Evaluation: 12/31/2022 I personally evaluated and examined the patient [id number] in conjunction with the PA/INSTRUMENT MAN and agree with the management and dispostition of the patient. Please see the PA/INSTRUMENT MAN's note for full details. My argueta findings [...] care plan Coordination with Case Management and/or Ruby Engineer Coordination of care with Consultants (if applicable) [...] this chart was generated using voice recognition S[employer]Mon dictation software. Although every effort was made to ensure the accuracy of this automated manager field service, some errors in manager field service may have occurred. Kendell Camacho MD 12/31/2022 5:53 PM documented in this encounter [facility] [employer] Phone: 11-14-2022 Note CONSULTATION CONSULTATION DATE: [...] falls or foot drop. 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 He did have to take two days off of work last week, which his very unlike him. He had trouble getting out of bed due to increased pain. He is prescribed Ovid 5/325 t.i.d., but due to pain, patient [...] radiculopathy, lumbar spondylosis. PLAN: Patient brought his Ovid in today for a pill count. We will change his medication to Percocet 5/325 t.i.d. and increase his Lyrica to 100 mg b.i.d. I did recommend a Neurosurgery referral, which the patient does agree to. We will send a referral to Dr. Shaheen Chappell at [facility] in [place]. We will continue to manage his medications at this time, and we will see him in the clinic in three months. Patient agrees with this plan. [facility] 10-16-2022 Note CONSULTATION CONSULTATION DATE: 10/16/2022 [...] use a cane. His current medications include Ovid 5/325 b.i.d. and Aleve p.r.n. He has [...] next three days, we will increase his Ovid 5/325 to t.i.d. We will start also [...] Patient does agree with this plan. [facility] 08-22-2022 Note CONSULTATION CONSULTATION DATE: 08/22/2022 [...] weakness. Medications include Mobic 15 mg daily, Ovid 5/325 b.i.d. and tizanidine 4 mg q.h.s. [...] a menthol rub. We will maintain his Ovid 5/325 b.i.d. and he was instructed to use Voltaren to hi right CMC joint. Patient agrees with the plan of care and will be followed up in the office thereafter. [facility] 06-26-2022 Note OPERATIVE NOTE OPERATION DATE: [...] good condition. CC: Romario Man M.D. [facility] 06-01-2022 Note Chief Complaint consultation for [...] BID, # 90 tab(s), Refills(s) 3, Pharmacy: [facility] 1622, 167.6, cm, 05/31/22 14:31:00 EDT, [...] History Ongoing Asthma BMI 25.0-25.9,adult CAD in [place] artery DDD (degenerative disc disease), lumbar Depression [...] 325 mg or (more content not included)... [facility] Comment on above: Result Comment: Elec [...] procedure well with no overt complications. [facility] 05-30-2022 Note CONSULTATION CONSULTATION DATE: 05/30/2022 [...] Medications include Mobic 15 mg daily and Ovid 5/325 b.i.d. He does take tizanidine 4 [...] indicated. Patient agrees with this plan. [facility] 04-03-2022 Note CONSULTATION CONSULTATION DATE: 04/03/2022 [...] and his workup at the ER in [place] warranted no findings. Today, he reports consistent [...] mg q.h.s., Mobic 15 mg daily and Ovid 5/325 b.i.d. p.r.n. Activities such as standing, [...] clinic and heading straight to the lab. [facility] Signed and Approved by: JULIANE MASSEY . 04/04/2022 13:38:00 [facility] 02-21-2022 Note CONSULTATION CONSULTATION DATE: 02/21/2022 [...] Medications include Mobic 15 mg q. day, Ovid 5/325 b.i.d. and tizanidine 4 mg q.h.s., [...] cervical neuritis. PLAN: We will refill his Ovid today 5/325 b.i.d., p.r.n. We will move [...] followed up in the office post procedure. [facility] Signed and Approved by: JULIANE MASSEY . 02/25/2022 15:08:00 [facility] Evaluation + Plan note No data available for this section General Surgery Yessy Evaluation note Diagnosis Acute gout of right wrist, unspecified cause- Primary documented in this encounter [facility] [employer] Phone: evaluation note* Diagnosis Chronic fatigue Other malaise and fatigue documented in this encounter [employer] Phone: evaluation note* Diagnosis Atypical chest pain- Primary Other chest pain Chest pain, unspecified type Viral syndrome Unspecified viral infection, in conditions classified elsewhere and of unspecified site documented in this encounter [employer] Phone: evalvsousy note* Diagnosis Osteoarthritis of left sacroiliac joint- Primary Lumbar spondylosis Lumbosacral spondylosis without myelopathy Lower extremity numbness Disturbance of skin sensation documented in this encounter [facility]* Diagnosis Osteoarthritis of left sacroiliac joint documented in this encounter [facility]* Diagnosis Osteoarthritis of left sacroiliac joint- Primary Osteoarthritis of left sacroiliac joint documented in this encounter [facility]* Diagnosis Osteoarthritis of left sacroiliac joint- Primary Pain of left sacroiliac joint Disorders of sacrum Lumbar spondylosis Lumbosacral spondylosis without myelopathy documented in this encounter [facility]* Diagnosis Osteoarthritis of right sacroiliac joint- Primary Pain of right sacroiliac joint Disorders of sacrum Polyneuropathy Unspecified hereditary and idiopathic peripheral neuropathy Lower extremity numbness Disturbance of skin sensation Osteoarthritis of left sacroiliac joint Pain of left sacroiliac joint Disorders of sacrum Lumbar spondylosis Lumbosacral spondylosis without myelopathy documented in this encounter [facility]* Diagnosis Osteoarthritis of both sacroiliac joints- Primary Pain of both sacroiliac joints Disorders of sacrum Polyneuropathy Unspecified hereditary and idiopathic peripheral neuropathy documented in this encounter [facility]* Diagnosis Osteoarthritis of both sacroiliac joints Pain of both sacroiliac joints Disorders of sacrum [facility] Diagnosis Osteoarthritis of both sacroiliac joints- Primary Pain of both sacroiliac joints Disorders of sacrum Osteoarthritis of both sacroiliac joints Pain of both sacroiliac joints Disorders of sacrum documented in this encounter [facility]* Diagnosis Hereditary and idiopathic peripheral neuropathy- Primary Unspecified hereditary and idiopathic peripheral neuropathy Hyperreflexia Abnormal reflex [facility] Diagnosis Sacroiliitis- Primary Sacroiliitis, not elsewhere classified [facility] Diagnosis Viral illness- Primary Unspecified viral infection, in conditions classified elsewhere and of unspecified site [facility]* Attachments The following attachments cannot be sent through Care Everywhere. * Gout (Gambian) [facility]: Hospital Discharge instructions No data available for this section General Surgery [place] [facility] note No data available for this section General Surgery [facility] Reason for referral (narrative)* Consultation (Routine) - Auth Not Needed Specialty Diagnoses / Procedures Referred By Anni t Referred To Contact Neurology Diagnoses Polyneuropathy Jennie Hernandez MD [address] [place] [address] Nikhil Mohr MD [address] [place] [address] Referral ID Status Reason Start Date Expiration Date V isits Requested Visits Authorized [id number] Auth Not Needed 06/10/2023 07/04/2024 1 1 * Radiology (Routine) - New Request Specialty Diagnoses / Procedures Referred By Contac t Referred To Contact Diagnoses Osteoarthritis of left sacroiliac joint Pain of left sacroiliac joint Procedures US IMAGING FOR ORTHO Jennie Hernandez MD [address] [place] [address] [place] [address] Referral ID Status Reason Start Date Expiration Date V isits Requested Visits Authorized [id number] New Request 06/10/2023 07/04/2024 1 1 [facility] for referral (narrative)* Consultation (Routine) - Schedule Outgoing - Transfer of Care Specialty Diagnoses / Procedures Referred By Contac t Referred To Contact Neurologic Surgery Diagnoses Osteoarthritis of both sacroiliac joints Pain of both sacroiliac joints Jennie Hernandez MD [address] [place] [id number] Referral ID Status Reason Start Date Expiration Date V isits Requested Visits Authorized [id number] Schedule Outgoing - Transfer of Care 07/16/2023 08/09/2024 1 1 * Radiology (Routine) - New Request Specialty Diagnoses / Procedures Referred By Contac t Referred To Contact Diagnoses Osteoarthritis of both sacroiliac joints Pain of both sacroiliac joints Procedures US IMAGING FOR ORTHO Jennie Hernandez MD [address] [place] [address], [place] [address] Referral ID Status Reason Start Date Expiration Date V isits Requested Visits Authorized [id number] New Request 07/16/2023 08/09/2024 1 1 [facility] for referral (narrative)* (Routine) Specialty Diagnoses / Procedures Referred By Contac t Referred To Contact [facility] [place] [facility] [address] [place] [address] Referral ID Status Reason Start Date Expiration Date Visits Re quested Visits Authorized [facility] Summary Purpose Family History No Family History Records FoundNo Family History Records FoundNo Family History Records FoundNo Family History Records FoundNo Family History Records FoundNo Family History Records FoundNo Family History Records FoundNo Family History Records FoundNo Family History Records FoundNo Family History Records FoundNo Family History Records Found Advance Directives No Advanced Directives Records FoundDocuments on File Type Date Recorded 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 * Chest Pain (Gambian) * Back Pain (Gambian) * Shoulder Pain (Gambian) documented in this encounter* Instructions* Justice Shaver [...] sent through Care Everywhere. * Neck Spasm (Gambian) documented in this encounter* Attachments The following attachments cannot be sent through Care Everywhere. * Abdominal Pain (Gambian) * Acid-Reducing Medicines: General Info (Gambian) documented in this encounter Assessments Diagnosis Chronic [...] Procedures VL DUP CAROTID BILATERAL Lisa Wyatt, BAGGAGE AGENT - LIFE SKILLS SPECIALIST [address] [place] [address] Specialty Diagnoses / Procedures Referred By Contac t Referred To Contact Diagnoses Lower extremity numbness Procedures EMG & NERVE CONDUCTION Jennie Hernandez MD [address] [facility] [place] [address] [place] [address] Jw Cee MD [address] [place] [id number] Referral ID Status Reason Start Date Expiration Date V isits Requested Visits Authorized [id number] Pending Review 02/25/2023 03/21/2024 1 1 Specialty Diagnoses / Procedures Referred By Contac t Referred To Contact Diagnoses Osteoarthritis of left sacroiliac joint Procedures US IMAGING FOR ORTHO Jennie eHrnandez MD [address] [facility] [address] [place] [address] Referral ID Status Reason Start Date Expiration Date V isits Requested Visits Authorized [id number] New Request 04/18/2023 05/12/2024 1 1 Specialty Diagnoses / Procedures Referred By Contac t Referred To Contact Diagnoses Osteoarthritis of both sacroiliac joints Pain of both sacroiliac joints Procedures US IMAGING FOR ORTHO Jennie Hernandez MD [address] [place] [address] Referral ID Status Reason Start Date Expiration Date V isits Requested Visits Authorized [id number] New Request 07/16/2023 08/09/2024 1 1 Specialty Diagnoses / Procedures Referred By Contac t Referred To Contact Diagnoses Hyperreflexia Procedures MRI SPINE THORACIC WITHOUT CONTRAST [place] MRI, DORSAL SPINE Nikhil Mohr MD [address] [place] [id number] Referral ID Status Reason Start Date Expiration Date V isits Requested Visits Authorized [id number] New Request 08/14/2023 09/07/2024 1 1 Specialty Diagnoses / Procedures Referred By Contac t Referred To Contact Diagnoses Hyperreflexia Procedures MRI SPINE CERVICAL WITHOUT CONTRAST [place] MRI, CERV SPINE Nikhil Mohr MD [address] [place] [id number] Referral ID Status Reason Start Date Expiration Date V isits Requested Visits Authorized [id number] New Request 08/14/2023 09/07/2024 1 1 Additional Source Comments (unrecognized sect ion and content) No Status Records FoundNo Status Records FoundNo Status Records FoundNo Status Records FoundNo Status Records FoundNo Status Records FoundNo Status Records FoundNo Status Records FoundNo Status Records FoundNo Status Records FoundNo Status Records Found INFORMATION SOURCE (unrecogn ized section and content) DATE CREATED AUTHOR 03/26/2018 [facility] DATE CREATED AUTHOR AUTHOR'S ORGANIZ ATION 03/26/2018 [facility] DATE CREATED AUTHOR AUTHOR'S ORGANIZ ATION 07/11/2022 [facility] DATE CREATED AUTHOR AUTHOR'S ORGANIZ ATION 01/18/[address] [facility] DATE CREATED AUTHOR AUTHOR'S ORGANIZ ATION 04/15/2023 [facility] DATE CREATED AUTHOR AUTHOR'S ORGANIZ ATION 07/18/2023 [facility] DATE CREATED AUTHOR AUTHOR'S ORGANIZ ATION 09/22/2023 [facility] DATE CREATED AUTHOR AUTHOR'S ORGANIZ ATION 10/11/2023 [facility] DATE CREATED AUTHOR AUTHOR'S ORGANIZ ATION 11/25/2023 [facility] Special[facility] EPIC DATE CREATED AUTHOR AUTHOR'S ORGANIZ ATION 02/13/2024 [facility] DATE CREATED AUTHOR AUTHOR'S ORGANIZ ATION 03/25/2024 [facility] Reason for Visit (unrecogniz ed section and content) Reason Comments Shoulder Pain ongoing for past wee k worse today Neck Pain worse today Chest Pain ongoing for one week worse today Reason Comments Neck Pain burning/shooting kalen n, BL posterior neck. REcent nerve procedure with pain management. Out of Ovid for 2 days. Reason Comments Flank Pain pt staes bilateral f alnk pain, onset Friday Status Reason Specialty Diagnoses / Procedures Referred By Contact Referred To Contact Authorized Stress Lab Diagnoses Atherosclerotic heart disease of [place] coronary artery without angina pectoris Procedures HC NM LEXISCAN STRESS W NUC HC NM SEST. REST STRESS MULT [id number] NM STRESS Lisa Wyatt, BAGGAGE AGENT - LIFE SKILLS SPECIALIST [address] [place] [address] [facility] [address] [place], [place] [id number] Status Reason Specialty Diagnoses / Procedures Referre d By Contact Referred To Contact Closed Vascular Lab Diagnoses Other specified peripheral vascular diseases Procedures EXTRACRANIAL BILAT STUDY [id number] US CAROTIDS Lisa Wyatt, BAGGAGE AGENT - LIFE SKILLS SPECIALIST [address] [place] [address] [facility] [address] [place] [address] Status Reason Specialty Diagnoses / Procedures Referred By Contact Referred To Contact Closed Stress Lab Diagnoses Atherosclerotic heart disease of [place] coronary artery without angina pectoris Procedures HC NM LEXISCAN STRESS W NUC HC NM SEST. REST STRESS MULT [id number] NM STRESS Lisa Wyatt, BAGGAGE AGENT - LIFE SKILLS SPECIALIST [address] [place] [address] [facility] [address] [place] [address] Reason Comments Wrist Pain Right, onset last [...] pain, unspecified type Kendell Camacho MD [address] [place] [address] [facility] [address] [place] [address] Referral ID Status Reason Start Date Expiration Date Visits Re quested Visits Authorized [id number] 1 1 Reason Comments Pain New Patient Specialty Diagnoses / Procedures Referred By Contac t Referred To Contact Diagnoses Osteoarthritis of left sacroiliac joint Procedures US IMAGING FOR ORTHO Jennie Hernandez MD [address] [facility] [place] [address] Referral ID Status Reason Start Date Expiration Date V isits Requested Visits Authorized [id number] New Request 04/18/2023 05/12/2024 1 1 Reason Comments Pain Joint Injection Reason Comments Pain Follow-up Reason Comments Pain Specialty Diagnoses / Procedures Referred By Contac t Referred To Contact Diagnoses Osteoarthritis of both sacroiliac joints Pain of both sacroiliac joints Procedures US IMAGING FOR ORTHO Jennie Hernandez MD [address] [facility] [place] [address] Referral ID Status Reason Start Date Expiration Date V isits Requested Visits Authorized [id number] New Request 07/16/2023 08/09/2024 1 1 Reason Comments Pain Right Sacroiliac laurent nt Follow-up Right Sacroiliac laurent nt Joint Injection Right Sacroiliac laurent nt Reason Comments New Patient bilateral lower limb polyneuropathy Specialty Diagnoses / Procedures Referred By Contac t Referred To Contact Neurology Diagnoses Polyneuropathy Jennie Hernandez MD [address] [facility] [address] [place] [address] Nikhil Mohr MD [address] [place] [address] Referral ID Status Reason Start Date Expiration Date Visits Re quested Visits Authorized [id number] Closed 06/10/2023 07/04/2024 1 1 Specialty Diagnoses / Procedures Referred By Anni t Referred To Contact Diagnoses Sacroiliitis Sacroiliitis [M46.1] Procedures IA ARTHRODESIS SACROILIAC JOINT PERCUTANEOUS CHG FLUOROSCOPY UP TO 1 HOUR PHYSICIAN/QHP TIME IA IMPLANT/INSERT DEVICE, NOC PROSTHETIC IMPLANT NOS ARTHRODESIS SACROILIAC JOINT MINIMALLY INVASIVE W/ TRANSFIXING DEVICE FLUOROSCOPY IN OR Shaheen Chappell MD [address] [address] Referral ID Status Reason Start Date Expiration Date Visits Re quested Visits Authorized [id number] 09/11/2023 1 1 Reason Comments Influenza Symptoms [...] mg from all sources in 24 hours. 7565 (Given - Provider: Monalisa Hudson RN) 0850 (Given - Provider: Corrie Ibarra RN - [...] Order 09/16/2023 09/17/2023 09/18/2023 BUPivacaine-EPINEPHrine (MARCAINE;SENSORCAINE-MPF) 0.5% -[id number] injection (CANCELED) NEEDED, Starting on Debbie 09/18/23 at 1144, Until Debbie 09/18/23 at 1228, Intra-op/Intra-Proc 1144 (Given - Provid er: Shaheen Chappell MD) ceFAZolin (ANCEF) 2 g in dextrose 100 mL premix IVPB (COMPLETED) 2 g, Intravenous, Administer over 30 Minutes, CRUISE COORDINATOR TO PROCEDURE, 1 dose, Starting on Debbie [...] Care Teams (unrecognized sec tion and content) Printing Rol[employer]isher Relationship Specialty Start Date End Date Romario Man MD [address] [place] [address] PCP - General Family Medicine 06/14/19 [employer] Rol[employer]isher Relationship Specialty Start Date End Date Romario Man MD [address] [place] [address] PCP - General Family Medicine 06/14/19 Printing Rol[employer]isher Relationship Specialty Start Date End Date Romario Man MD [address] [place] [phone] PCP - General Family Medicine 04/18/23 Printing Roller Polisher Relationship Specialty Start Date End Date Romario Man MD [address] [place] [phone] PCP - General Family Medicine 04/18/23 Printing Roller Polisher Relationship Specialty Start Date End Date Romario Man MD [address] [place] [address] PCP - General Family Medicine 04/18/23 Printing Roller Polisher Relationship Specialty Start Date End Date Romario Man MD [address] [place] [address] PCP - General Family Medicine 04/18/23 Printing Roller Polisher Relationship Specialty Start Date End Date Romario Man MD [address] [place] [address] PCP - General Family Medicine 04/18/23 Printing Roller Polisher Relationship Specialty Start Date End Date Romario Man MD [address] [place] [address] PCP - General Family Medicine 04/18/23 Printing Roller Polisher Relationship Specialty Start Date End Date Romario Man MD [address] [place] [phone] PCP - General Family Medicine 04/18/23 Printing Roller Polisher Relationship Specialty Start Date End Date Romario Man MD [address] [place] [address] PCP - General Family Medicine 04/18/23 Printing Roller Polisher Relationship Specialty Start Date End Date Romario Man MD [address] [place] [address] PCP - General Family Medicine 06/14/19 FOR [...] BE BASED ON THE PRIMARY CLINICAL RECORDS. [facility]. provides no warranty or guarantee of the accuracy or completeness of information in this document.
--- NOTE | 2024-05-24 07:15 | PC.NURSE ---
pt states he's had this chest pain on and off for 1 month. worse since this am. woke up in a sweat and felt like he was going to vomit. started dry-heaving. took 2 nitro and said it helped a little. also c/o bilat hands and feet numbness/tingling with some SOB.
[2024-05-24 07:16] LABS: Basophils Absolute Auto 0.1 10^3/uL (0.0-0.1); Basophils Percent Auto 0.8 % (0.2-2.0); Eosinophils Absolute Auto 0.1 10^3/uL (0.0-0.7); Eosinophils Percent Auto 1.2 % (0.9-7.0); Hematocrit 44.8 % (42.0-54.0); Hemoglobin 15.4 g/dL (14.0-18.0); Immature Granulocytes Abs Auto 0.03 10^3/uL (0.00-0.03); Immature Granulocytes Pct Auto 0.4 % (0.0-0.5); Lymphocytes Absolute Auto 1.6 10^3/uL (1.2-3.8); Lymphocytes Percent Auto 19.7 % (20.5-60.0); Mean Corpuscular HGB Conc 34.4 g/dL (29.9-35.2); Mean Corpuscular Hemoglobin 31.8 pg (25.9-34.0); Mean Corpuscular Volume 92.6 fL (80.0-94.0); Mean Platelet Volume 10.6 fL (9.5-13.5); Monocytes Absolute Auto 0.7 10^3/uL (0.3-0.8); Monocytes Percent Auto 8.1 % (1.7-12.0); Neutrophils Absolute Auto 5.8 10^3/uL (1.4-6.5); Neutrophils Percent Auto 69.8 % (43.0-75.0); Platelet Count 203 10^3/uL (150-450); Red Blood Count 4.84 10^6/uL (4.70-6.10); Red Cell Distribution Width 13.8 % (11.0-15.0); White Blood Count 8.3 10^3/uL (4.0-11.0)
[2024-05-24] MEDS: MORPHINE SULFATE 2 MG/ML SYRINGE IV (07:26)
[2024-05-24] MEDS: NITROGLYCERIN 0.4 MG BOTTLE SL (07:26)
[2024-05-24 07:36] LABS: INR 0.95; Prothrombin Time 10.1 sec (9.0-11.6)
[2024-05-24 08:18] LABS: Alanine Aminotransferase 27 U/L (16-63); Albumin Level 3.7 g/dL (3.4-5.0); Alkaline Phosphatase 119 U/L (46-116); Anion Gap 15.8; Aspartate Amino Transferase 25 U/L (15-37); BUN Creatinine Ratio 23.3; Bilirubin Total 0.8 mg/dL (0.2-1.0); Calcium 9.7 mg/dL (8.5-10.1); Carbon Dioxide 27.4 mmol/L (21.0-32.0); Chloride 101 mmol/L (98-107); Estimated GFR (African America >60 (>=60); Estimated GFR (Non-African Ame >60 (>=60); Globulin 3.6 g/dL; Glucose 108 mg/dL (74-106); Potassium 4.2 mmol/L (3.5-5.1); Sodium 140 mmol/L (136-145); Total Protein 7.3 g/dL (6.4-8.2)
[2024-05-24 08:23] LABS: Troponin I High Sensitivity 8.4 pg/mL (4.0-76.1)
--- NOTE | 2024-05-24 08:36 | CT_ITS ---
The [address] [address] Patient Name: AJ MORA MRN: [id number] date: 1960 Sex: M Assigned Patient Location: ER Current Patient Location: ER Accession/Order Number: [id number] Exam Date: 05/24/2024 08:48 Report Date: 05/24/2024 09:38 At the request of: CAROLE CRAVEN Procedure: CT angio chest EXAMINATION: CT angio chest HISTORY: chest pain and pressure COMPARISON: No relevant comparison available. TECHNIQUE: Multi-planar CT images were created with IV contrast. Axial, Coronal, and Sagittal images. Dose reduction techniques were achieved by using automated exposure control and/or adjustment of mA and/or kV according to patient size and/or use of iterative reconstruction technique. 3-D reconstruction was performed on a separate workstation. FINDINGS: VASCULATURE: No pulmonary embolism or abnormal opacity. LUNGS: Scattered calcified granulomas. Mild emphysematous changes and scattered curvilinear opacities favoring scarring or discoid atelectasis. PLEURA: No mass, effusion, or pneumothorax. IVIS: [Minimal adenopathy. MEDIASTINUM: Minimal adenopathy. CARDIAC: No enlargement, pericardial effusion, or pericardial thickening. AORTA: No aneurysm or dissection. CHEST WALL: No mass or axillary adenopathy. BONES: No bone lesion or fracture. LIMITED ABDOMEN: Large hiatal hernia. Limited images of the upper abdomen. OTHER: Negative. CT/CT angio chest IMPRESSION: 1. No pulmonary embolism. 2. No acute infiltrates or suspicious findings to account for patient's symptoms. 3. Mild emphysematous changes and chronic granulomatous disease. Electronically authenticated by: PEDRO PABLO CHAMBERS Date: 05/24/2024 09:38
--- NOTE | 2024-05-24 08:51 | ED.CHESTPAI1 ---
HPI - Chest Pain General Chief Complaint: Chest Pain Stated Complaint: CHEST PAIN Time Seen by Provider: 05/24/24 07:04 Source: patient and family Mode of arrival: Wheelchair Limitations: no limitations History of Present Illness HPI narrative: The patient have multiple risk factor including history of coronary artery disease with a stent placed in 2005, presenting to us with a chest pain that been progressively getting worse he mentioned that this morning he was awake when the pain started in his retrosternal area. The pain is pressure-like associated with nausea and vomiting in addition to numbness in his upper extremity bilaterally. The patient also have dizziness and sweating The pain was 10 out of 10 he did take 2 nitroglycerin that was able to lower his pain but he still have the pain on arrival The patient mentioned that it was at rest and there was no relation to taking deep breath The patient denies any cough fever chills or any other symptoms before the symptoms started Related Data Home Medications ?Medication ?Instructions ?Recorded ?Confirmed albuterol sulfate 90 mcg/actuation 1 inh inhalation Q6H 03/14/23 05/24/24 aerosol inhaler (ProAir HFA) aspirin 81 mg tablet,delayed 81 mg PO DAILY 03/14/23 05/24/24 release atorvastatin 40 mg tablet 40 mg PO DAILY 03/14/23 05/24/24 cholecalciferol (vitamin D3) 50 50 mcg PO DAILY 03/14/23 05/24/24 mcg (2,000 unit) capsule ferrous sulfate 325 mg (65 mg 325 mg PO BID 03/14/23 05/24/24 iron) tablet (Niels-Time) isosorbide mononitrate 30 mg 30 mg PO DAILY 03/14/23 05/24/24 tablet,extended release 24 hr lisinopril 40 mg tablet 40 mg PO DAILY 03/14/23 05/24/24 meloxicam 15 mg tablet 15 mg PO DAILY 03/14/23 05/24/24 metoprolol tartrate 25 mg tablet 25 mg PO BID 03/14/23 05/24/24 nitroglycerin 0.4 mg sublingual 0.4 mg sublingual Q5M PRN chest 03/14/23 05/24/24 tablet (Nitrostat) pain pantoprazole 40 mg tablet,delayed 40 mg PO DAILY 03/14/23 05/24/24 release (Protonix) pregabalin 100 mg capsule (Lyrica) 100 mg PO BID 03/14/23 05/24/24 tizanidine 4 mg capsule 4 mg PO .HS PRN muscle spasticity 03/14/23 05/24/24 ezetimibe 10 mg tablet 10 mg PO DAILY 05/24/24 05/24/24 ondansetron HCl 4 mg tablet 4 mg PO Q6H PRN nausea and vomiting 05/24/24 05/24/24 Previous Rx's ?Medication ?Instructions ?Recorded oxycodone-acetaminophen 5 mg-325 1 tab PO TID PRN pain #90 tabs 11/10/23 mg tablet (Percocet) oxycodone-acetaminophen 5 mg-325 1 tab PO TID PRN pain #90 tabs 03/17/24 mg tablet (Percocet) oxycodone-acetaminophen 5 mg-325 1 tab PO TID PRN pain #90 tabs 04/16/24 mg tablet (Percocet) oxycodone-acetaminophen 5 mg-325 1 tab PO TID PRN pain #90 tabs 05/18/24 mg tablet (Percocet) Allergies Allergy/AdvReac Type Severity Reaction Status Date / Time No Known Drug Allergies Allergy Verified 05/24/24 07:03 Review of Systems ROS Status of ROS 10 or more systems reviewed and unremarkable except as noted in history and below [facility] Medical History Bilateral shoulder pain ?M25.511 - Pain in right shoulder (ICD-10) ?M25.512 - Pain in left shoulder (ICD-10) Aortic atherosclerosis ?I70.0 - Atherosclerosis of aorta (ICD-10) Hypertension ?I10 - Essential (primary) hypertension (ICD-10) Numbness and tingling ?R20.0 - Anesthesia of skin (ICD-10) ?R20.2 - Paresthesia of skin (ICD-10) Back pain ?M54.9 - Dorsalgia, unspecified (ICD-10) Neck pain ?M54.2 - Cervicalgia (ICD-10) Anemia ?D64.9 - Anemia, unspecified (ICD-10) Asthma ?J45.909 - Unspecified asthma, uncomplicated (ICD-10) Surgical History H/O heart artery stent ?Z95.5 - Presence of coronary angioplasty implant and graft (ICD-10) H/O laminectomy ?Z98.890 - Other specified postprocedural states (ICD-10) Exam Narrative Exam Narrative: Nurses notes and vital signs reviewed and patient is not hypoxic. General: Patient appears to be distressed with swelling Skin: Warm, dry, no pallor noted. No rash. Head: Normocephalic, atraumatic. Neck: Supple, non-tender. Eye: Pupils are equal, round and EOMI. No scleral icterus. Ears, Nose, Mouth, and Throat: TM are clear, no nasal mucosal hypertrophy. Oral mucosa is moist, no posterior oropharynx erythema, uvula is mid-line Cardiovascular: Regular Rate and Rhythm without murmur, gallop or rub. Respiratory: No accessory muscle use or respiratory distress. Lungs are clear to auscultation, no wheezing, rales or rhonchi Chest Wall: no tenderness Back: No midline thoracic or lumbar vertebral tenderness. No CVA tenderness Musculoskeletal: normal ROM, no calf or popliteal tenderness, no lower extremity edema/swelling GI: Abdomen is soft, non-distended. Normal bowel sounds. No masses appreciated. No tenderness to palpation. No rebound, guarding, or rigidity noted. Neurological: A&O x4. No cranial nerve dysfunction observed. No truncal ataxia. Moves all extremities. Sensation intact. Psychiatric: Cooperative and interactive. Normal mood and affect. Constitutional Vital Signs, click to edit/add: Last Vital Signs Temp 99.1 F 05/24/24 06:58 Pulse 64 05/24/24 09:40 Resp 20 05/24/24 09:40 BP 160/103 H 05/24/24 09:30 Pulse Ox 95 05/24/24 09:40 O2 Del Method Room Air 05/24/24 06:58 Course Vital Signs Vital signs: Vital Signs Temperature 99.1 F 05/24/24 06:58 Pulse Rate 71 05/24/24 06:58 Respiratory Rate 18 05/24/24 06:58 Blood Pressure 197/117 H 05/24/24 06:58 Pulse Oximetry 95 05/24/24 06:58 Oxygen Delivery Method Room Air 05/24/24 06:58 Temperature 99.1 F 05/24/24 06:58 Pulse Rate 64 05/24/24 09:40 Respiratory Rate 20 05/24/24 09:40 Blood Pressure 160/103 H 05/24/24 09:30 Pulse Oximetry 95 05/24/24 09:40 Oxygen Delivery Method Room Air 05/24/24 06:58 MDM - Chest Pain MDM Narrative Medical decision making narrative: The patient EKG upon arrival showing sinus rhythm with a heart rate of [address] elevation or depression but the patient have T wave inversion in lead V5 in addition to aVL The patient troponin repeated twice was negative in addition to CT angio of the chest showing no acute pathology CBC chemistry showed no acute pathology Patient provided in the ER with 1 nitro and morphine after which she was feeling better It was noted that the patient blood pressure is elevated and with the fact that he had a recent presentation almost 8 days ago for elevated blood pressure and neurological symptoms, the patient presentation could be secondary to hypertensive urgency and chest pain with a high risk patient with a heart score of 5 at least The patient will be admitted for observation to control his blood pressure Patient case was discussed with and he agrees with above-mentioned plan Lab Data Labs: Lab Results 05/24/24 05/24/24 Range/Units 07:05 09:10 WBC 8.3 (4.0-11.0) 10^3/uL RBC 4.84 (4.70-6.10) 10^6/uL Hgb 15.4 (14.0-18.0) g/dL Hct 44.8 (42.0-54.0) % MCV 92.6 (80.0-94.0) fL MCH 31.8 (25.9-34.0) pg MCHC 34.4 (29.9-35.2) g/dL RDW 13.8 (11.0-15.0) % Plt Count 203 (150-450) 10^3/uL MPV 10.6 (9.5-13.5) fL Neut % (Auto) 69.8 (43.0-75.0) % Lymph % (Auto) 19.7 L (20.5-60.0) % [place] % (Auto) 8.1 (1.7-12.0) % Eos % (Auto) 1.2 (0.9-7.0) % Baso % (Auto) 0.8 (0.2-2.0) % Neut # (Auto) 5.8 (1.4-6.5) 10^3/uL Lymph # (Auto) 1.6 (1.2-3.8) 10^3/uL [place] # (Auto) 0.7 (0.3-0.8) 10^3/uL Eos # (Auto) 0.1 (0.0-0.7) 10^3/uL Baso # (Auto) 0.1 (0.0-0.1) 10^3/uL Abs Immat Gran (auto) 0.03 (0.00-0.03) 10^3/uL Imm/Tot Granulo (auto) 0.4 (0.0-0.5) % PT 10.1 (9.0-11.6) sec INR 0.95 Sodium 140 (136-145) mmol/L Potassium 4.2 (3.5-5.1) mmol/L Chloride 101 (98-107) mmol/L Carbon Dioxide 27.4 (21.0-32.0) mmol/L Anion Gap 15.8 BUN 17.0 (7.0-18.0) mg/dL Creatinine 0.73 (0.70-1.30) mg/dL Est GFR ( Amer) >60 (>=60) Est GFR (Non-Af Amer) >60 (>=60) BUN/Creatinine Ratio 23.3 Glucose 108 H (74-106) mg/dL Calcium 9.7 (8.5-10.1) mg/dL Magnesium 2.0 (1.8-2.4) mg/dL Total Bilirubin 0.8 (0.2-1.0) mg/dL AST 25 (15-37) U/L ALT 27 (16-63) U/L Alkaline Phosphatase 119 H (46-116) U/L Troponin I High Sens 8.4 8.8 (4.0-76.1) pg/mL Total Protein 7.3 (6.4-8.2) g/dL Albumin 3.7 (3.4-5.0) g/dL Globulin 3.6 g/dL Albumin/Globulin Ratio 1.0 Heart Score History: Highly Suspicious ECG: Normal Age: >45-<65 years Risk Factors: >3 Risk Factors/ HX of CAD:2 Troponin: <Normal Limit Total Heart Score Recommendations & Risks:: 5 Discharge Plan Discharge Chief Complaint: Chest Pain Clinical Impression: Hypertensive urgency Chest pain Qualifiers: Chest pain type: chest pain due to myocardial ischemia Ischemic chest pain type: unspecified angina pectoris type Qualified Code(s): I25.9 - Chronic ischemic heart disease, unspecified Patient Disposition: Admitted as Observation Time of Disposition Decision: 10:14
[2024-05-24 09:40] LABS: Troponin I High Sensitivity 8.8 pg/mL (4.0-76.1)
[2024-05-24] MEDS: ASPIRIN 81 MG TAB.CHEW 324 MG PO (10:11)
[2024-05-24] MEDS: HYDROCHLOROTHIAZIDE 25 MG TABLET PO (11:39)
[2024-05-24] MEDS: ISOSORBIDE MONONITRATE 30 MG TAB.ER.24H 60 MG PO (11:39)
[2024-05-24] MEDS: METOPROLOL SUCCINATE 100 MG TAB.ER.24H PO (11:39)
[2024-05-24] MEDS: ENOXAPARIN SODIUM 40 MG/0.4 ML SYRINGE SUBQ (12:03)
--- NOTE | 2024-05-24 15:15 | SWNOTE1 ---
Medicare Outpatient Observation Notice reviewed and discussed with patient. Pt. verbalized understanding and signed the form. Original given to patient and copy placed in patient?s chart. SW met with pt to discuss dc needs. Pt lives at home alone. He does not use any devices. He is independent and still drives, etc. Pt does not have any services coming in to the home. Pt denies having any discharge needs at this time.
--- NOTE | 2024-05-24 15:25 | PM.HP ---
HPI H&P: HPI History of Present Illness Chief complaint: CHEST PAIN, HYPERTENSIVE URGENCY Narrative: HPI and Hospital Course: 63-year-old male with prior history of coronary artery disease presented to ER with midsternal chest pain associated with shortness of breath and diaphoresis and was found to have poorly controlled blood pressure as high as 200/120 on arrival. He was given sublingual nitro with improvement in his symptoms. He is currently asymptomatic and his blood pressure has improved somewhat from arrival. Patient reported that he did not take his home medications in the morning and medications were continued. There are no acute changes noted on EKG. Troponins were negative. His blood pressure is more or less at goal after he received his home medications. I added hydrochlorothiazide to his home regimen. Patient reports that he does not check his blood pressure at home. He had a normal nuclear stress test within a year and follows closely with [facility] cardiology. It seems very unlikely that his chest pain was from underlying coronary artery disease as he had a normal nuclear stress test fairly recently. It looks like this could be related to poorly controlled hypertension especially since his symptoms have resolved after his blood pressure return to a more reasonable level. He is medically stable for discharge on his home medication with increased dose of Imdur to 60 mg and addition of hydrochlorothiazide to his blood pressure regimen. He will benefit from follow-up with PCP in 1 to 2 weeks and outpatient follow-up with cardiology in 2 to 3 weeks. Patient was instructed to return to ED if he has persistent chest pain, shortness of breath or palpitations. Opioid HPI Opioid Management Most Recent Pain and Opioid Data: Last Pain Scale 1 05/24/24 07:41 Last Pain Assessment 05/24/24 14:53 Last MAR Pain Assessment 05/24/24 07:26 Last ORT Total Score 0 05/24/24 11:28 Last ORT Risk Category Low Risk 05/24/24 11:28 Review of Systems ROS Status of ROS 10 or more systems reviewed and unremarkable except as noted in history and below [facility] Medical History (Updated 05/24/24 @ 15:31 by Shaikh Xander MD) HLD (hyperlipidemia) ?E78.5 - Hyperlipidemia, unspecified (ICD-10) CAD (coronary artery disease) ?I25.10 - Atherosclerotic heart disease of [place] coronary artery without angina pectoris (ICD-10) Bilateral shoulder pain ?M25.511 - Pain in right shoulder (ICD-10) ?M25.512 - Pain in left shoulder (ICD-10) Aortic atherosclerosis ?I70.0 - Atherosclerosis of aorta (ICD-10) Hypertension ?I10 - Essential (primary) hypertension (ICD-10) Numbness and tingling ?R20.0 - Anesthesia of skin (ICD-10) ?R20.2 - Paresthesia of skin (ICD-10) Back pain ?M54.9 - Dorsalgia, unspecified (ICD-10) Neck pain ?M54.2 - Cervicalgia (ICD-10) Anemia ?D64.9 - Anemia, unspecified (ICD-10) Asthma ?J45.909 - Unspecified asthma, uncomplicated (ICD-10) Surgical History H/O heart artery stent ?Z95.5 - Presence of coronary angioplasty implant and graft (ICD-10) H/O laminectomy ?Z98.890 - Other specified postprocedural states (ICD-10) Family History (Updated 05/24/24 @ 11:18 by Franny Tineo) Father Family history of CHF (congestive heart failure) Family history of myocardial infarction Mother Family history of CHF (congestive heart failure) Social History (Updated 05/24/24 @ 11:27 by Franny Tineo) Within the past year, how often did you have a drink containing alcohol: 4 or more times a week Within the past year, how many standard drinks containing alcohol did you have on a typical day: 1 or 2 Within the past year, how often did you have six or more drinks on one occasion: never Total score: 0 Score interpretation: Questions 2 and 3 are 0. It can be assumed that the patient's drinking is below the recommended limits. However, please confirm the accuracy of the patient's alcohol intake over the last few months. 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 Highest level of school completed/degree received: high school graduate In a typical week, how many times do you talk on the telephone with family, friends, or neighbors: 3 or more times per week How often do you get together with friends or relatives: 3 or more times per week How often do you attend latter day or anabaptist services: never Do you belong to any clubs or organizations such as latter day groups unions, fraternal or athletic groups, or school groups: no Little interest or pleasure in doing things: not at all Feeling down, depressed, or hopeless: not at all Feel stressed/tense/nervous/anxious/difficulty sleeping: not at all Gender Identity: male Meds Home Medications and Allergies Home Medications ?Medication ?Instructions ?Recorded ?Confirmed ?Type albuterol sulfate 90 mcg/actuation 1 inh inhalation Q6H 03/14/23 05/24/24 History aerosol inhaler (ProAir HFA) aspirin 81 mg tablet,delayed 81 mg PO DAILY 03/14/23 05/24/24 History release atorvastatin 40 mg tablet 40 mg PO DAILY 03/14/23 05/24/24 History cholecalciferol (vitamin D3) 50 50 mcg PO DAILY 03/14/23 05/24/24 History mcg (2,000 unit) capsule ferrous sulfate 325 mg (65 mg 325 mg PO BID 03/14/23 05/24/24 History iron) tablet (Niels-Time) lisinopril 40 mg tablet 40 mg PO DAILY 03/14/23 05/24/24 History meloxicam 15 mg tablet 15 mg PO DAILY 03/14/23 05/24/24 History nitroglycerin 0.4 mg sublingual 0.4 mg sublingual Q5M PRN chest 03/14/23 05/24/24 History tablet (Nitrostat) pain pantoprazole 40 mg tablet,delayed 40 mg PO DAILY 03/14/23 05/24/24 History release (Protonix) pregabalin 100 mg capsule (Lyrica) 100 mg PO BID 03/14/23 05/24/24 History oxycodone-acetaminophen 5 mg-325 1 tab PO TID PRN pain #90 tabs 11/10/23 05/24/24 Rx mg tablet (Percocet) ezetimibe 10 mg tablet 10 mg PO DAILY 05/24/24 05/24/24 History isosorbide mononitrate 60 mg 60 mg PO DAILY 05/24/24 05/24/24 History tablet,extended release 24 hr metoprolol succinate 100 mg 100 mg PO DAILY 05/24/24 05/24/24 History tablet,extended release 24 hr (Toprol XL) Allergies Allergy/AdvReac Type Severity Reaction Status Date / Time No Known Drug Allergies Allergy Verified 05/24/24 07:03 Exam Constitutional Vital Signs, click to edit/add: Last Vital Signs Temp 98.4 F 05/24/24 13:09 Pulse 86 05/24/24 14:00 Resp 18 05/24/24 13:09 BP 146/84 H 05/24/24 13:09 Pulse Ox 97 05/24/24 13:09 O2 Del Method Room Air 05/24/24 13:09 Documenting provider has reviewed patient's vital signs: yes Common normals: no apparent distress and oriented x3 General appearance: cooperative HENMT Common normals: normocephalic and head/scalp atraumatic Head and scalp: normocephalic and atraumatic Eye Common normals: conjunctivae normal and no scleral icterus Conjunctiva: conjunctiva(e) normal Respiratory Common normals: normal respiratory effort and clear to auscultation bilaterally Effort & inspection: able to speak in complete sentences Auscultation: clear to auscultation bilaterally Cardio Common normals: regular rate, S1 normal heart sound and S2 normal heart sound Rate: regular rate Heart sounds: S1 normal and S2 normal GI Common normals: Normal to inspection, nondistended, normoactive bowel sounds present, soft to palpation, non-tender and no hepatosplenomegaly Palpation: soft and no hepatosplenomegaly Extremity Common normals: no clubbing, cyanosis or edema Neuro Common normals: oriented x3, moves all extremities and no focal motor deficits Psych Common normals: mental status grossly normal, denies hallucinations, denies homicidal ideation and denies suicidal ideation Results Labs Labs: Short CBC 05/24/24 Range/Units 07:05 WBC 8.3 (4.0-11.0) 10^3/uL Hgb 15.4 (14.0-18.0) g/dL Hct 44.8 (42.0-54.0) % Plt Count 203 (150-450) 10^3/uL BMP 05/24/24 07:05 Sodium 140 Potassium 4.2 Chloride 101 Carbon Dioxide 27.4 BUN 17.0 Creatinine 0.73 Glucose 108 H Calcium 9.7 Liver Function 05/24/24 Range/Units 07:05 Total Bilirubin 0.8 (0.2-1.0) mg/dL AST 25 (15-37) U/L ALT 27 (16-63) U/L Alkaline Phosphatase 119 H (46-116) U/L Albumin 3.7 (3.4-5.0) g/dL Assessment and Plan Assessment and Plan (1) Hypertensive urgency: Assessment and Plan: Blood pressure is now better with resumption of his home medications. Will add hydrochlorothiazide to his home regimen. Will increase Imdur to help with anginal symptoms. Patient instructed to monitor blood pressure at home. Maintain blood pressure log at home and bring blood pressure readings to his PCP so that his blood pressure medications can be adjusted accordingly (2) Chest pain: Assessment and Plan: Likely noncardiac and related to poorly controlled hypertension. No acute changes on EKG. Cardiac enzymes are negative. He had a normal nuclear stress test within a year ago. He has prior history of coronary artery disease and had percutaneous coronary intervention in 2005. Continue with aspirin, beta-sarah, statin. Increased Imdur to help with anginal symptoms. Follow-up with cardiology as outpatient. Qualifiers: Chest pain type: chest pain due to myocardial ischemia Ischemic chest pain type: unspecified angina pectoris type Qualified Code(s): I25.9 - Chronic ischemic heart disease, unspecified (3) CAD (coronary artery disease): Assessment and Plan: No evidence of active cardiac ischemia. Normal cardiac enzymes. No acute changes on EKG. Follow-up with cardiology as outpatient Qualifiers: Coronary Disease-Associated Artery/Lesion type: [place] artery [place] vs. transplanted heart: [place] heart Associated angina: without angina Qualified Code(s): I25.10 - Atherosclerotic heart disease of [place] coronary artery without angina pectoris (4) HLD (hyperlipidemia): Assessment and Plan: Continue with Lipitor and ezetimibe Qualifiers: Hyperlipidemia type: mixed hyperlipidemia Qualified Code(s): E78.2 - Mixed hyperlipidemia (5) Back pain: Assessment and Plan: Chronic, unchanged. Continue with Lyrica. Qualifiers: Back pain location: low back pain Chronicity: chronic Back pain laterality: unspecified Sciatica presence: without sciatica Qualified Code(s): M54.50 - Low back pain, unspecified; G89.29 - Other chronic pain
--- NOTE | 2024-05-25 14:16 | CM.DCFOLLOWU ---
Person spoke with: patient How are you feeling? well How is your pain? no pain Did you understand your discharge instructions? yes Do you have any questions about your discharge instructions? no Were you given any prescriptions at discharge? yes Were you able to get your prescriptions filled? yes Do you understand how to take your medications as ordered? yes Do you have any questions about your follow up appointment and do you plan to keep your follow up appointment? no questions, has follow up with [employer] sales representative on Friday and will call PCP Is there anything else that you would like to discuss? no Questions/Comments/Concerns/Other: none
== END 2024-05-24 16:53 | disposition home or self-care (01) ==
LOC: ER 10:14 → MS 11:07
PROVIDERS: Admitting Provider Internal Medicine; Emergency Provider Emergency Medicine; PCP Family Medicine; Visit Provider Internal Medicine
DX: I16.0 Hypertensive urgency (principal); R07.89 Other chest pain; I25.10 Atherosclerotic heart disease of native coronary artery without angina pectoris; I25.9 Chronic ischemic heart disease, unspecified; E78.2 Mixed hyperlipidemia; M54.50 Low back pain, unspecified; G89.29 Other chronic pain; Z79.899 Other long term (current) drug therapy; Z79.82 Long term (current) use of aspirin
CPT/HCPCS: 36415; 71045; 71275; 80053; 83735; 84484; 85025; 85610; 93005; 94761; 96372; 96374; 97165; 99285; G0378; J1650; J2270; Q9967

== ENCOUNTER 2024-05-28 09:57 | Emergency (ER) | payer OTHER, SELFPAY ==
[2024-05-28] VITALS (32 sets, daily range): BP systolic 110–147; BP diastolic 75–97; PULSE 57–69; TEMP 36.8; O2SAT 95–100; BMI 25.8
--- NOTE | 2024-05-28 10:13 | ECG_ITS ---
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
[2024-05-28 10:25] LABS: Basophils Absolute Auto 0.1 10^3/uL (0.0-0.1); Basophils Percent Auto 0.6 % (0.2-2.0); Eosinophils Absolute Auto 0.2 10^3/uL (0.0-0.7); Eosinophils Percent Auto 2.9 % (0.9-7.0); Hematocrit 44.1 % (42.0-54.0); Hemoglobin 15.2 g/dL (14.0-18.0); Immature Granulocytes Abs Auto 0.02 10^3/uL (0.00-0.03); Immature Granulocytes Pct Auto 0.2 % (0.0-0.5); Lymphocytes Absolute Auto 1.9 10^3/uL (1.2-3.8); Mean Corpuscular HGB Conc 34.5 g/dL (29.9-35.2); Mean Corpuscular Hemoglobin 32.1 pg (25.9-34.0); Mean Corpuscular Volume 93.2 fL (80.0-94.0); Mean Platelet Volume 10.3 fL (9.5-13.5); Monocytes Absolute Auto 0.9 10^3/uL (0.3-0.8); Monocytes Percent Auto 11.3 % (1.7-12.0); Neutrophils Absolute Auto 5.1 10^3/uL (1.4-6.5); Platelet Count 200 10^3/uL (150-450); Red Blood Count 4.73 10^6/uL (4.70-6.10); Red Cell Distribution Width 13.8 % (11.0-15.0); White Blood Count 8.2 10^3/uL (4.0-11.0)
--- OUTSIDE RECORDS SUMMARY | 2024-05-28 10:25 | XMS_ITS | CCD ---
Author Organization [facility] CliniSyct Care Team Providers Care Thermal Technician Name Role Phone PHYSICIAN, DEFAULT Unavailable Unavailable PHYSICIAN, DEFAULT Unavailable Unavailable PHYSICIAN, DEFAULT Unavailable Unavailable PHYSICIAN, DEFAULT Unavailable Unavailable AHMAD, SHOWKAT Unavailable Unavailable AHMAD, SHOWKAT Unavailable Unavailable MELVI BATRES Unavailable Unavailable MARY CANTU Unavailable Unavailable JAXON WILSON Unavailable Unavailable Romario Man Primary Care Provider Magda, Romario Bloom Primary Care Provider [phone] Romario Man MD Primary Care Provider MAGDA, ROMARIO Primary Care Physician [phone] MAGDA PROVIDER, ROMARIO Referring Unavailab Julian Kelly [...] Unavailab Romario Morse MD Primary Care Provider [phone] HERNANDEZ, JENNIE S Referring Unavailable HERNANDEZ, JENNIE [...] Referring Unavailable HERNANDEZ, JENNIE S Attending Unavailable [facility] OTHER Primary Care Unavailable SELF, [...] Unavailable Jeimyr Romario DRUMMOND Primary Care Provider [facility] Davis LEVI Primary Care UnavailFANY Toney Consulting Unavailable KENDELL CAMACHO Admitting Unavailable JANICE, KENDELL Attending Unavailable NADIA FITZPATRICK Attending ROMARIO Carranza Primary Care UnavailROMARIO Gardner Attending Unavailable DAVDISON SHARP Attending Unavailable ELIEL OROPEZA Attending Unavailable Rolan DRUMMOND, Mo Pike Attending Unavailable Rolan DRUMMOND, Mo Pike Attending Unavailable Allergies Allergy Classification Reported Allergen(s) Allergy Type Date of Onset Reaction(s) Facility (1 source) No Known Medication Allergies; Translations: [No Known Medication Allergies] Propensity to adverse reactions (disorder) [facility] Repository Medications Current Medications Medication Drug Class(es) Dates Sig (Normalized) Sig (Original) Acetaminophen (10 sources) Start: 12-30-2022 acetaminophen (TYLENOL) tablet 650 mg Start: 09-12-2019 take 2 tablets by mo [facility] every eight hours as needed [...] tablet Start: 05-23-2022 take 1 tablet by [facility] twice daily [place] 5/325 Tab 1 tab(s), Oral, BID, Refill(s) [...] BID, # 90 tab(s), Refills(s) 3, Pharmacy: [id number], 167.6, cm, 05/31/22 14:31:00 [...] Start: 01-20-2023 take 1 capsule by mo [facility] twice daily Pregabalin 50 MG [...] 1 tablet by mouth once daily aspirin, [id number], tablet Take 1 tablet by mouth daily. 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 CURRENT DRUG THERAPY] Onset: 07-01-2022 Episodic Other [...] Range Facility Office Visiton 02-11-2024 Follow-up visit [id number] Dorothea Alva Nola 1960 M Date Provider Department Center 02/11/2024 ELIEL ECKERT VALENCIA Krishnamurthy [facility] Family History Problem Relation Age of Onset Coronary artery disease Mother Coronary artery disease Father Family Status - Relation Status Age at Mother Father Level of Service:36120 CT OFFICE/OUTPATIENT ESTABLISHED MOD MDM 30 MIN Normal [facility] COVID-19, Rapidon 2023 SARS-CoV-2 (COVID-19) RdRp gene DAHLIA+probe Ql (Resp) Not detected Not Detected [facility] Comment on above: Rapid NAAT: The [...] management decisions. Fact sheet for Healthcare Providers: https://www.fda.gov/media/637240/download Fact sheet for Patients: https://www.fda.gov/media/720353/download Methodology: Isothermal Nucleic Acid Amplification Specimen Description .NASOPHARYNGEAL SWAB [facility] Flu A/B Ag Detectionon 10-10 Flu A Ag Detection Negative Normal NEG [facility] Comment on above: Result Comment: for Influenza A Antigen Performed By: #### F LUABA #### [facility] [address] [place] [address] Housing Manager: Luis Carlos Del Castillo MD Flu B Ag Detection Negative Normal NEG [facility] Comment on above: Result Comment: for Influenza B Antigen. Performed By: #### F LUABA #### [facility] [address] [place] [address] Housing Manager: Luis Carlos Del Castillo MD Rapid influenza A/B antigens on 2023 FLUAV Ag Ql (Unsp spec) Negative NEGATIVE [facility] Comment on above: for Influenza A Anti gen FLUBV Ag Ql (Unsp spec) Negative NEGATIVE [facility] Comment on above: for Influenza B Anti gen. [facility] [id number] 2023 SARS-CoV-2 (COVID-19) RNA DAHLIA+probe Ql (Unsp spec) Not detected Normal NOTDET [facility] Comment on above: Result Comment: [...] management decisions. Fact sheet for Healthcare Providers: https://www.fda.gov/media/712553/download Fact sheet for Patients: https://www.fda.gov/media/323358/download Methodology: Isothermal Nucleic Acid Amplification Performed By: #### C OVRB #### [facility] [address] [place] [address] Housing Manager: Luis Carlos Del Castillo MD XR CHEST [...] Nav Hudson MD 10/10/23 Final result Normal [facility] Documentationon 09-18-2023 Documentation [id number] ArtieDorothea Vaca 1960 M Date Provider Department [facility] Family History Problem Relation Age of Onset Coronary artery disease Mother Coronary artery disease Father Family Status - Relation Status Age at Mother Father Normal [facility] CBCon 09-09-2023 ABSOLUTE BAS 0.1 10*3/uL Normal 0.0-0.2 [facility] ABSOLUTE EOS 0.1 10*3/uL Normal 0.0-0.7 [facility] ABSOLUTE NEUTROPHIL COUNT 7.0 10*3/uL High 1.4-6.5 [facility] Basophils/100 WBC (Bld) 0.9 % Normal 0.0-2.0 [facility] DTYPE AUTO DIFF Normal [facility] Eosinophils/100 WBC (Bld) 1.3 % Normal 0.0-11.0 [facility] Lymphocytes (Bld) [#/Vol] 1.5 10*3/uL Normal 1.2-3.4 [facility] Lymphocytes/100 WBC (Bld) 15.7 % Low 20.0-55.0 [facility] Monocytes (Bld) [#/Vol] 0.6 10*3/uL Normal 0.0-0.7 [facility] Monocytes/100 WBC (Bld) 7.0 % Normal 0.0-10.0 [facility] Neutrophils/100 WBC (Bld) 75.1 % High 37.0-75.0 [facility] Erythrocyte distribution width (RBC) [Ratio] 14.6 % High 11.5-14.5 [facility] Hematocrit (Bld) [Volume fraction] 41.6 % Low 42.0-52.0 [facility] Hemoglobin (Bld) [Mass/Vol] 13.9 g/dL Low 14.0-18.0 [facility] MCH (RBC) [Entitic mass] 33.0 pg Normal 26.0-35.0 [facility] MCHC (RBC) [Mass/Vol] 33.4 g/dL Normal 27.0-37.0 [facility] MCV (RBC) [Entitic vol] 98.7 fL Normal 80.0-100.0 [facility] Platelet mean volume (Bld) [Entitic vol] 7.8 fL Normal 7.4-11.0 [facility] Platelets (Bld) [#/Vol] 195 10*3/uL Normal 130-400 [facility] RBC (Bld) [#/Vol] 4.21 10*6/uL Normal 4.0-6.1 [facility] WBC (Bld) [#/Vol] 9.3 10*3/uL Normal 3.6-11.0 [facility] CMP FASTINGon 09-09-2023 A:G RATIO 1.5 RATIO Normal 1.3-2.2 [facility] ALBUMIN 4.3 G/dl Normal 3.5-5.0 [facility] ALP [Catalytic activity/Vol] 99 U/L Normal 38-126 [facility] ALT [Catalytic activity/Vol] 46 U/L Normal <50 [facility] AST [Catalytic activity/Vol] 57 U/L Normal 17-59 [facility] Bilirubin [Mass/Vol] 0.7 mg/dL Normal 0.2-1.3 [facility] Calcium [Mass/Vol] 9.5 mg/dL Normal 8.4-10.2 [facility] Chloride [Moles/Vol] 105 mmol/L Normal 98-107 [facility] Comment on above: Result Comment: Gilma medellin note: Triglyceride levels of 600mg/dL or higher may positively bias chloride results by approximately 2.1 mmol CO2 [Moles/Vol] 27 mmol/L Normal 22-30 [facility] Creatinine [Mass/Vol] 0.60 mg/dL Low 0.7-1.2 [facility] EST. GFR, 176 ml/min/1.73sq.m Normal [facility] EST. GFR,Non 145 ml/min/1.73sq.m Normal [facility] GFR Information Average GFR for 60-6 9 years old = 85. Normal [facility] Comment on above: Result Comment: Labor Specialist isaiah Kidney disease, GFR = <60. Kidney failure, GFR = <15. The GFR estimate is not adjusted for extreme body surface area or acute process, nor has it been validated for women or ethnic groups other than and . Glucose [Mass/Vol] 86 mg/dL Normal 70-100 [facility] Comment on above: Result Comment: NORMAL <100 mg/dL PREDIABETES 101-126 mg/dL DIABETES 126 mg/dL or higher Potassium [Moles/Vol] 4.0 mmol/L Normal 3.5-5.1 [facility] Protein [Mass/Vol] 7.1 g/dL Normal 6.3-8.2 [facility] Sodium [Moles/Vol] 141 mmol/L Normal 137-145 [facility] Urea nitrogen [Mass/Vol] 16 mg/dL Normal 7-20 [facility] LARGE JOINT/BURSA INJECTION AND/OR ASPIRATIONon 08-13-2023 Radiology Study observation (narrative) [facility] Office Visiton 08-13-2023 Follow-up visit [id number] Dorothea Alva 1960 M Provider Department Center 08/13/2023 DAVIDSON HOWELL VALENCIA Becker Family History Problem Relation Age of Onset Coronary artery disease Mother Coronary artery disease Father Family Status - Relation Status Age at Mother Father Level of Service:98373 CT OFFICE/OUTPATIENT ESTABLISHED MOD [facility] 30-39 MIN Reason for Visit and Comments: Coronary Artery Disease [187] Chest Pain [110945] Pre-op Exam [551072] Hyperlipidemia [182] Hypertension [871726] [facility] Orders Onlyon 08-13-2023 Orders Only [id number] Dorothea Alva 1960 M Provider Department [place] 08/13/2023 ADA BALTAZAR VALENCIA Becker Family History Problem Relation Age of Onset Coronary artery disease Mother Coronary artery disease Father Family Status - Relation Status Age at Mother Father [facility] 36on 08-03-2023 36 Patient will need an appointment for further refills - thanks ! [facility] LARGE JOINT/BURSA INJECTION AND/OR ASPIRATIONon 07-16-2023 [...] fashion. The patient was prepped with Chloraprep. [facility] [place] Unspecified body regionon 07-16-2023 Image Storage This order is to facilitate the storage of the image. [facility] LARGE JOINT/BURSA INJECTION AND/OR ASPIRATIONon 06-17-2023 Radiology Study observation (narrative) [facility] LARGE JOINT/BURSA INJECTION AND/OR ASPIRATIONon 06-10-2023 Jose [...] fashion. The patient was prepped with Chloraprep. [facility] US Unspecified body regionon 06-10-2023 Image Storage This order is to facilitate the storage of the image. [facility] LARGE JOINT/BURSA INJECTION AND/OR ASPIRATIONon 05-15-2023 Radiology Study observation (narrative) [facility] LARGE JOINT/BURSA INJECTION AND/OR ASPIRATIONon 04-18-2023 Eric [...] fashion. The patient was prepped with Chloraprep. [employer] [facility] [place] Unspecified body regionon 04-18-2023 Image Storage This order is to facilitate the storage of the image. [employer] XR HIPS KOURTNEY 5V W PELVISon XR [...] LUIS CARLOS ENCARNACION Date: 2023-01-08 13:57 Normal [facility] XR LSPINE W_OBLS AND FLEX_EX Ton [...] LUIS CARLOS ENCARNACION Date: 2023-01-08 14:00 Normal [facility] Hemoglobin A1Con 01-01-2023 Glucose [Mass/Vol] 114 mg/dL Normal [facility] Comment on above: Result Comment: The ADA and AACC recommend providing the estimated average glucose result to permit better patient understanding of their HBA1c result. Performed By: #### L IPR #### [address] [phone] Housing Manager: Marshall Paulino MD HbA1c (Bld) [Mass fraction] 5.6 % Normal 4.0-6.0 [facility] Comment on above: Performed By: #### L IPR #### [address] [address] Housing Manager: Marshall Paulino MD Basic Metab w/rfx MGon 12-31 Anion gap [Moles/Vol] 9 mmol/L Normal - [facility] Comment on above: Performed By: #### T DARYNI CDP, BMPX #### [facility] [address] [place] [address] Housing Manager: Luis Carlos Del Castillo MD #### GLYHGB #### [address] [phone] Housing Manager: Marshall Paulino MD BUN/CRE Ratio 39 High 9- [facility] Comment on above: Performed By: #### T DARYNI, CDP, BMPX #### [facility] [address] [place] [address] Housing Manager: Luis Carlos Del Castillo MD #### GLYHGB #### [phone] [place], [place] [phone] Housing Manager: Marshall Paulino MD Calcium [Mass/Vol] 9.5 mg/dL Normal 8.6-10.4 [facility] Comment on above: Performed By: #### T ROPI, CDP, BMPX #### [facility] [address] [place], [place] [phone] Housing Manager: Luis Carlos Del Castillo MD #### GLYHGB #### [address] [place], [place] [phone] Housing Manager: Marshall Paulino MD Chloride [Moles/Vol] 106 mmol/L Normal 98-107 [facility] Comment on above: Performed By: #### T ROPI, CDP, BMPX #### [facility] [address] [place] [phone] Housing Manager: Luis Carlos Del Castillo MD #### GLYHGB #### [address] [place], [place] [phone] Housing Manager: Marshall Paulino MD CO2 [Moles/Vol] 25 mmol/L Normal 20-31 [facility] Comment on above: Performed By: #### T ROPI, CDP, BMPX #### [facility] [address] [place], [place] [phone] Housing Manager: Luis Carlos Del Castillo MD #### GLYHGB #### [address] [place] [address] Housing Manager: Marshall Paulino MD Creatinine [Mass/Vol] 0.70 mg/dL Normal 0.70-1.20 [facility] Comment on above: Performed By: #### T ROPI, CDP, BMPX #### [facility] [address] [place], [place] [phone] Housing Manager: Luis Carlos Del Castillo MD #### GLYHGB #### [address] [place] [address] Housing Manager: Marshall Paulino MD GFR/1.73 sq M.predicted among non-blacks MDRD (S/P/Bld) [Vol rate/Area] mL/min/{1.73_m2} Normal >60 [facility] Comment on above: Result Comment: These results [...] By: #### T GEE ALONZO, BMPX #### [facility] [address] [place] [address] [place] [address] Housing Manager: Luis Carlos Del Castillo MD #### GLYHGB #### [address] [address] Housing Manager: Marshall Paulino MD Glucose [Mass/Vol] 103 mg/dL High 70-99 [facility] Comment on above: Performed By: #### T GEE ALONZO, BMPX #### [facility] [address] [place] [address] [place], [place] [phone] Housing Manager: Luis Carlos Del Castillo MD #### GLYHGB #### [address] [address] Housing Manager: Marshall Paulino MD Potassium [Moles/Vol] 4.3 mmol/L Normal 3.7-5.3 [facility] Comment on above: Performed By: #### T GEE ALONZO, BMPX #### [facility] [address] [place] [address] Dr[place], [place] [phone] Housing Manager: Luis Carlos Del Castillo MD #### GLYHGB #### [address] [phone] Housing Manager: Marshall Paulino MD Sodium [Moles/Vol] 140 mmol/L Normal 135-144 [facility] Comment on above: Performed By: #### GEE ESPAÑA, BMPX #### [facility] [address] [place] [address] Housing Manager: Luis Carlos Del Castillo MD #### GLYHGB #### [facility] [employer] [address] [place], [place] [phone] Housing Manager: Marshall Paulino MD Urea nitrogen [Mass/Vol] 27 mg/dL High 8-23 [facility] Comment on above: Performed By: #### GEE ESPAÑA, BMPX #### [facility] [address] [place] [address] Housing Manager: Luis Carlos Del Castillo MD #### GLYHGB #### [facility] [address] [place], [place] [phone] Housing Manager: Marshall Paulino MD Basic Metabolic Panel w/ Ref maria antonia to MGon 12-31-2022 Anion gap [Moles/Vol] 9 mmol/L 9 - 17 mmol/L [facility] Calcium [Mass/Vol] 9.5 mg/dL 8.6 - 10. 4 mg/dL [facility] Chloride [Moles/Vol] 106 mmol/L 98 - 10 7 mmol/L [facility] CO2 [Moles/Vol] 25 mmol/L 20 - 31 mmol/L [facility] Creatinine [Mass/Vol] 0.7 mg/dL 0.70 - 1.20 mg/dL [facility] GFR/1.73 sq M.predicted MDRD (S/P/Bld) [Vol rate/Area] - PINF [facility] Comment on above: These results are [...] 103 mg/dL High 70 - 99 mg/dL [facility] Interpretation and review of laboratory results Abnormal [facility] Potassium [Moles/Vol] 4.3 mmol/L 3.7 - 5.3 mmol/L [facility] Sodium [Moles/Vol] 140 mmol/L 135 - 144 mmol/L [facility] Urea nitrogen [Mass/Vol] 27 mg/dL High 8 - 23 mg/dL [facility] Urea nitrogen/Creatinine (Bld) [Mass ratio] 39 High 9 - 20 [facility] CARDIAC STRESS TESTon 2022 CARDIAC STRESS TEST [address] [id number] CARDIAC STRESS TEST PATIENT NAME: NOEL ALVA : 1960 MED REC NO: [id number] ROOM: [facility] ACCOUNT NO: [id number] ADMIT DATE: 12/30/2022 PROVIDER: Fany Mohr MD [...] MIRIAN/BILLY_EDIT Doc#: Unknown CC: Romario Man Normal [facility] CBC with Auto Differentialon 12-31-2022 Absolute Eos # 0.18 MAGNA S [facility] Absolute Immature Granulocyte [facility] Absolute Lymph # 1.58 [facility] Absolute Rolette # 0.72 [facility] Basophils (Bld) [#/Vol] 0.05 10*3/uL [facility] Interpretation and review of laboratory results Abnormal [facility] NRBC Automated 0.0 0.0 per 100 WBC [facility] Platelet distribution width (Bld) [Ratio] 13.9 % 11.8 - 14.4 % [facility] Segmented neutrophils/100 WBC (Bld) 62 % 36 - 65 % [facility] Segs Absolute 4.27 [facility] CBC with Diffon 12-31-2022 Abs. Basophil 0.05 k/uL Normal 0.00-0.20 [facility] Comment on above: Performed By: #### T GEE ALONZO, BMPX #### [facility] [address] [place] [address] Housing Manager: Luis Carlos Del Castillo MD #### GLYHGB #### [place] [address] Housing Manager: Marshall Paulino MD Abs.Imm.Granulocyte <0.03 Normal 0.00-0.30 [facility] Comment on above: Performed By: #### T GEE ALONZO, BMPX #### [facility] [address] [place] [address] Housing Manager: Luis Carlos Del Castillo MD #### GLYHGB #### [place] [address] Housing Manager: Marshall Paulino MD Abs.Neutrophil (Seg) 4.27 k/uL Normal 1.50-8.10 [facility] Comment on above: Performed By: #### T ROPI, CDP, BMPX #### [address] [place], [place] [phone] Housing Manager: Luis Carlos Del Castillo MD #### GLYHGB #### [address] [phone] Housing Manager: Marshall Paulino MD Eosinophils (Bld) [#/Vol] 0.18 10*3/uL Normal 0.00-0.44 [facility] Comment on above: Performed By: #### T CHERI, CDP, BMPX #### [address] [place] [phone] Housing Manager: Luis Carlos Del Castillo MD #### GLYHGB #### [address] [phone] Housing Manager: Marshall Paulino MD Erythrocyte distribution width (RBC) [Ratio] 13.9 % Normal 11.8-14.4 [facility] Comment on above: Performed By: #### T CHERI CDP, BMPX #### [address] [place] [phone] Housing Manager: Luis Carlos Del Castillo MD #### GLYHGB #### [address] [phone] Housing Manager: Marshall Paulino MD Lymphocytes (Bld) [#/Vol] 1.58 10*3/uL Normal 1.10-3.70 [facility] Comment on above: Performed By: #### T CHERI, CDP, BMPX #### [address] [place] [address] Housing Manager: Luis Carlos Del Castillo MD #### GLYHGB #### [address] [place], [place] [phone] Housing Manager: Marshall Paulino MD Monocytes (Bld) [#/Vol] 0.72 10*3/uL Normal 0.10-1.20 [facility] Comment on above: Performed By: #### T ROPI, CDP, BMPX #### [facility] [address] [place], [place] [phone] Housing Manager: Luis Carlos Del Castillo MD #### GLYHGB #### [address] [phone] Housing Manager: Marshall Paulino MD Neutrophil (Seg) 62 % Normal 36-65 [facility] Comment on above: Performed By: #### T ROPI, CDP, BMPX #### [facility] [address] [place] [address] Dr[place], [place] [phone] Housing Manager: Luis Carlos Del Castillo MD #### GLYHGB #### [address] [phone] Housing Manager: Marshall Paulino MD NRBC Automated 0.0 per 100 WBC Normal 0.0 [facility] Comment on above: Performed By: #### T ROPI, CDP, BMPX #### [facility] [address] [place] [address] Dr[place], [place] [phone] Housing Manager: Luis Carlos Del Castillo MD #### GLYHGB #### [address] [address] Housing Manager: Marshall Paulino MD Basophils/100 WBC (Bld) 1 % Normal 0-2 [facility] Comment on above: Performed By: #### T ROPI, CDP, BMPX #### [facility] [address] [place] [address] [address], [place] [phone] Housing Manager: Luis Carlos Del Castillo MD #### GLYHGB #### [address] [address] Housing Manager: Marshall Paulino MD Eosinophils/100 WBC (Bld) 3 % Normal 1-4 [facility] Comment on above: Performed By: #### T ROPI, CDP, BMPX #### [address] [place] [phone] Housing Manager: Luis Carlos Del Castillo MD #### GLYHGB #### [address] [phone] Housing Manager: Marshall Paulino MD Hematocrit (Bld) [Volume fraction] 40.4 % Low 40.7-50.3 [facility] Comment on above: Performed By: #### T ROPI, CDP, BMPX #### [address] [place] [phone] Housing Manager: Luis Carlos Del Castillo MD #### GLYHGB #### [place] [phone] Housing Manager: Marshall Paulino MD Hemoglobin (Bld) [Mass/Vol] 13.5 g/dL Normal 13.0-17.0 [facility] Comment on above: Performed By: #### T ROPI, CDP, BMPX #### [address] [place] [phone] Housing Manager: Luis Carlos Del Castillo MD #### GLYHGB #### [place] [phone] Housing Manager: Marshall Paulino MD Immature granulocytes/100 WBC (Bld) 0 % Normal 0 [facility] Comment on above: Performed By: #### T ROPI, CDP, BMPX #### [address] [place] [phone] Housing Manager: Luis Carlos Del Castillo MD #### GLYHGB #### [place] [phone] Housing Manager: Marshall Paulino MD Lymphocytes/100 WBC (Bld) 23 % Low 24-43 [facility] Comment on above: Performed By: #### T ROPI, CDP, BMPX #### [address] [place] [address] Housing Manager: Luis Carlos Del Castillo MD #### GLYHGB #### [address] [phone] Housing Manager: Marshall Paulino MD MCH (RBC) [Entitic mass] 31.2 pg Normal 25.2-33.5 [facility] Comment on above: Performed By: #### T CHERI, CDP, BMPX #### [address] [place] [address] Housing Manager: Luis Carlos Del Castillo MD #### GLYHGB #### [place] [address] [place] [phone] Housing Manager: Marshall Paulino MD MCHC (RBC) [Mass/Vol] 33.4 g/dL Normal 28.4-34.8 [facility] Comment on above: Performed By: #### T CHERI CDP, BMPX #### [address] [place] [address] Housing Manager: Luis Carlos Del Castillo MD #### GLYHGB #### [place] [id number] Housing Manager: Marshall Paulino MD MCV (RBC) [Entitic vol] 93.3 fL Normal 82.6-102.9 [facility] Comment on above: Performed By: #### T CHERI, CDP, BMPX #### [address] [place] [address] Housing Manager: Luis Carlos Del Castillo MD #### GLYHGB #### [address] [phone] Housing Manager: Marshall Paulino MD Monocytes/100 WBC (Bld) 11 % Normal 3-12 [facility] Comment on above: Performed By: #### T ROPI, CDP, BMPX #### [address] [place], [place] [phone] Housing Manager: Luis Carlos Del Castillo MD #### GLYHGB #### [address] [id number] Housing Manager: Marshall Paulino MD Platelet mean volume (Bld) [Entitic vol] 10.1 fL Normal 8.1-13.5 [facility] Comment on above: Performed By: #### T ROPI, CDP, BMPX #### [address] [place] [phone] Housing Manager: Luis Carlos Del Castillo MD #### GLYHGB #### [address] [address] Housing Manager: Marshall Paulino MD Platelets (Bld) [#/Vol] 190 10*3/uL Normal 138-453 [facility] Comment on above: Performed By: #### T CHERI, CDP, BMPX #### [address] [place] [phone] Housing Manager: Luis Carlos Del Castillo MD #### GLYHGB #### [address] [phone] Housing Manager: Marshall Paulino MD RBC (Bld) [#/Vol] 4.33 10*6/uL Normal 4.21-5.77 [facility] Comment on above: Performed By: #### T ROPLiane, CDP, BMPX #### [address] [place] [address] Housing Manager: Luis Carlos Del Castillo MD #### GLYHGB #### [address] [phone] Housing Manager: Marshall Paulino MD WBC (Bld) [#/Vol] 6.8 10*3/uL Normal 3.5-11.3 [facility] [employer] Comment on above: Performed By: #### T CHERI, CDP, BMPX #### [facility] [address] [place] [address] Housing Manager: Luis Carlos Del Castillo MD #### GLYHGB #### [employer] [address] [place] [address] Housing Manager: Marshall Paulino MD EKG 12 leadon 12-31-2022 Atrial Rate 51 BPM [employer] Work Phone: P Curtiss 51 degrees [employer] Work Phone: P-R Interval 144 ms [employer] Work Phone: Q-T Interval 490 ms [employer] Work Phone: QRS Duration 72 ms [employer] Work Phone: QTc Calculation (Bazett) 451 ms [employer] Work Phone: R Curtiss 47 degrees [employer] Work Phone: T Curtiss 91 degrees [employer] Work Phone: Ventricular Rate 51 BPM [facility] [employer] Work Phone: Sinus bradycardia T wave abnormality, consider lateral ischemia Abnormal ECG When compared with ECG of 30-DEC-2022 06:16, Inverted T waves have replaced nonspecific T wave abnormality in Anterior leads QT has lengthened Confirmed by Fany Mohr MD ([id number]) on 12/31/2022 1:07:24 PM [facility] Fany Mohr MD - 12/31/2022 Sinus bradycardia T wave abnormality, consider lateral ischemia Abnormal ECG When compared with ECG of 30-DEC-2022 06:16, Inverted T waves have replaced nonspecific T wave abnormality in Anterior leads QT has lengthened Confirmed by Fany Mohr MD ([id number]) on 12/31/2022 1:07:24 PM [facility] Work Phone: [facility] Work Phone: EKG Rhythm Stripon 3 [facility] Lipid Panelon 12-31-2022 Cholesterol [Mass/Vol] 103 mg/dL NINF - 200 mg/dL [facility] Comment on above: Cholesterol Guidelines: <200 Desirable 200-240 Borderline >240 Undesirable Cholesterol in HDL [Mass/Vol] 44 mg/dL 40 - PINF mg/dL [facility] Comment on above: HDL Guidelines: <40 Undesirable 40-59 Borderline >59 Desirable Cholesterol in LDL [Mass/Vol] 46 mg/dL 0 - 130 mg/dL [facility] Comment on above: LDL Guidelines: <100 Desirable 100-129 Near to/above Desirable 130-159 Borderline >159 Undesirable Direct (measured) LDL and calculated LDL are not interchangeable tests. Cholesterol.total/Ch olesterol in HDL [Mass ratio] 2.3 {ratio} NINF - 5 [facility] Triglyceride [Mass/Vol] 67 mg/dL NINF - 150 mg/dL [facility] Comment on above: Triglyceride Guidelines: <150 Desirable 150-199 Borderline 200-499 High >499 Very high Based on AHA Guidelines for fasting triglyceride, July 2012. [facility] Lipid Profileon 12-31-2022 Cholesterol [Mass/Vol] 103 mg/dL Normal <200 [facility] Comment on above: Result Comment: Cholesterol Guidelines: <200 Desirable 200-240 Borderline >240 Undesirable Performed By: #### L IPR #### [employer] [address] [place] [address] Housing Manager: Marshall Paulino MD Cholesterol in HDL [Mass/Vol] 44 mg/dL Normal >40 [facility] Comment on above: Result Comment: HDL Guidelines: <40 Undesirable 40-59 Borderline >59 Desirable Performed By: #### L IPR #### [employer] [address] [place] [address] Housing Manager: Marshall Paulino MD Cholesterol in LDL [Mass/Vol] 46 mg/dL Normal 0-130 [facility] Comment on above: Result Comment: LDL Guidelines: <100 Desirable 100-129 Near to/above Desirable 130-159 Borderline >159 Undesirable Direct (measured) LDL and calculated LDL are not interchangeable tests. Performed By: #### L IPR #### [address] [address] Housing Manager: Marshall Paulino MD Cholesterol.total/Ch olesterol in HDL [Mass ratio] 2.3 {ratio} Normal <5 [facility] Comment on above: Performed By: #### L IPR #### [address] [address] Housing Manager: Marshall Paulino MD Triglyceride [Mass/Vol] 67 mg/dL Normal <150 [facility] Comment on above: Result Comment: Triglyceride Guidelines: <150 Desirable 150-199 Borderline 200-499 High >499 Very high Based on AHA Guidelines for fasting triglyceride, July 2012. Performed By: #### L IPR #### [address] [address] Housing Manager: Marshall Paulino MD Resp Viral Panelon 3 Adenovirus Not detected Normal [facility] Comment on above: Performed By: #### L IPR #### [facility] Health Data Minder [address] [place] [address] Housing Manager: MD Marissa Martin.parapertussis Not detected Normal [facility] Comment on above: Performed By: #### L IPR #### [facility] [employer] Data [employer] [address] [place] [address] Housing Manager: MD Elizabeth Martindetella pertussis Not detected Normal [facility] Comment on above: Performed By: #### L IPR #### [facility] [employer] Data [employer]der [address] [place] [address] Housing Manager: Marshall Paulino MD Chlamyd.pneumoniae Not detected Normal [facility] Comment on above: Performed By: #### L IPR #### [facility] Data [employer]der [address] [place] [address] Housing Manager: Marshall Paulino MD Coronavirus 229E Not detected Normal [facility] Comment on above: Performed By: #### L IPR #### [facility] Health Data [employer]der [address] [place] [address] Housing Manager: Marshall Paulino MD Coronavirus HKU1 Not detected Normal [facility] Comment on above: Performed By: #### L IPR #### [address] [address] Housing Manager: Marshall Paulino MD Coronavirus NL63 Not detected Normal [facility] Comment on above: Performed By: #### L IPR #### [address] [address] Housing Manager: Marshall Paulino MD Coronavirus OC43 Not detected Normal [facility] Comment on above: Performed By: #### L IPR #### [address] [address] Housing Manager: Marshall Paulino MD Human Metapneumo Not detected Normal [facility] Comment on above: Performed By: #### L IPR #### [facility] Health Data Minder [address] [place] [address] Housing Manager: Marshall Paulino MD Influenza A Not detected Normal [facility] Comment on above: Performed By: #### L IPR #### [facility] Health Data Minder [address] [place] [address] Housing Manager: Marshall Paulino MD Influenza B Not detected Normal [facility] Comment on above: Performed By: #### L IPR #### [facility] [address] [place] [address] Housing Manager: Marshall Paulino MD Mycoplas.pneumoniae Not detected Normal [facility] Comment on above: Result Comment: Perf ormed by multiplexed nucleic acid assay. Performed By: #### L IPR #### [address] [address] Housing Manager: Marshall Paulino MD Parainfluenza 1 Not detected Normal [facility] Comment on above: Performed By: #### L IPR #### [facility] [address] [place] [address] Housing Manager: Marshall Paulino MD Parainfluenza 2 Not detected Normal [facility] Comment on above: Performed By: #### L IPR #### [facility] Health Data Minder [address] [place] [address] Housing Manager: Marshall Paulino MD Parainfluenza 3 Not detected Normal [facility] Comment on above: Performed By: #### L IPR #### [facility] Health Data [employer]der [address] [place] [address] Housing Manager: Marshall Paulino MD Parainfluenza 4 Not detected Normal [facility] Comment on above: Performed By: #### L IPR #### [facility] Health Data [employer]der [address] [place] [address] Housing Manager: Marshall Paulino MD Resp Syncytial Virus Not detected Normal [facility] Comment on above: Performed By: #### L IPR #### [facility] Health Data Minder [address] [place] [address] Housing Manager: Marshall Paulino MD Rhino/Enterovirus Not detected Normal [facility] Comment on above: Performed By: #### L IPR #### [facility] [address] [place] [address] Housing Manager: Marshall Paulino MD SARS-CoV-2 (COVID-19) RNA DAHLIA+probe Ql (Unsp spec) Not detected Normal NOTDET [facility] Comment on above: Performed By: #### L IPR #### [facility] Health Data Minder [address] [place] [address] Housing Manager: Marshall Paulino MD Respiratory Panel, Molecular , with COVID-19 (Restricted: peds pts or suitable admitted adults)on 12-31-2022 Adenovirus PCR Not detected Not Detected [facility] B. parapertussis [id number] DNA DAHLIA+non-probe Ql (Nph) Not detected Not Detected [facility] B. pertussis DNA DAHLIA+probe Ql (Unsp spec) Not detected Not Detected [facility] Chlamydia pneumoniae By PCR Not detected Not Detected [facility] Coronavirus 229E PCR Not detected Not Detected [facility] Coronavirus HKU1 PCR Not detected Not Detected [facility] Coronavirus NL63 PCR Not detected Not Detected [facility] Coronavirus OC43 PCR Not detected Not Detected [facility] FLUAV RNA DAHLIA+non-probe Ql (Nph) Not detected Not Detected [facility] FLUBV RNA DAHLIA+non-probe Ql (Nph) Not detected Not Detected [facility] Human Metapneumovirus PCR Not detected Not Detected [facility] Mycoplasma pneumo by PCR Not detected Not Detected [facility] Comment on above: Performed by multipl exed nucleic acid assay. Parainfluenza 1 PCR Not detected Not Detected [facility] Parainfluenza 2 PCR Not detected Not Detected [facility] Parainfluenza 3 PCR Not detected Not Detected [facility] Parainfluenza 4 PCR Not detected Not Detected [facility] Resp Syncytial Virus PCR Not detected Not Detected [facility] Rhino/Enterovirus PCR Not detected Not Detected [facility] SARS-CoV-2 (COVID-19) RNA DAHLIA+non-probe Ql (Nph) Not detected Not Detected [facility] Specimen Description .NASOPHARYNGEAL SWAB [facility] Troponinon 12-31-2022 Troponin, High Sens 18 ng/L Normal 0-22 [facility] Comment on above: Result Comment: High Sensitivity Troponin values cannot be compared with other Troponin methodologies. Performed By: #### T DARYNI, CDP, BMPX #### [facility] [address] [place] [address] Housing Manager: Luis Carlos Del Castillo MD #### GLYHGB #### [place] [phone] [place] [address] Housing Manager: Marshall Paulino MD Troponin I.cardiac DL <= 0.01 ng/mL [Mass/Vol] 18 ng/L 0 - 22 ng/L [facility] Comment on above: High Sensitivity Tro ponin values cannot be compared with other Troponin methodologies. [facility] Brain Natri. Peptideon 12-30 Natriuretic peptide B (Bld) [Mass/Vol] 308 pg/mL High <300 [facility] Comment on above: Result Comment: An age-independent cutoff point of 300 pg/ml has a 98% negative predictive value excluding acute heart failure. Performed By: #### B MANAGER IMAGING #### [facility] [address] [place] [address] Housing Manager: Luis Carlos Del Castillo MD Brain Natriuretic Peptideon 12-30-2022 Interpretation and review of laboratory results Abnormal [facility] Natriuretic peptide B (Bld) [Mass/Vol] 308 pg/mL High NINF - 300 pg/mL [facility] Comment on above: An age-independent cutoff point of 300 pg/ml has a 98% negative predictive value excluding acute heart failure. [facility] CBC with Auto Differentialon 12-30-2022 Absolute Eos # 0.07 [facility] Absolute Immature Granulocyte 0.04 [facility] Absolute Lymph # 1.83 [facility] Absolute Rolette # 0.91 [facility] Basophils (Bld) [#/Vol] 0.06 10*3/uL [facility] Basophils/100 WBC (Bld) 1 % 0 - 2 % [facility] Eosinophils/100 WBC (Bld) 1 % 1 - 4 % [facility] Hematocrit (Bld) [Volume fraction] 39.6 % Low 40.7 - 50.3 % [facility] Hemoglobin (Bld) [Mass/Vol] 13.8 g/dL 13.0 - 17.0 g/dL [facility] Immature granulocytes/100 WBC (Bld) 0 % 0 [facility] Interpretation and review of laboratory results Abnormal [facility] Lymphocytes/100 WBC (Bld) 18 % Low 24 - 43 % [facility] MCH (RBC) [Entitic mass] 31.8 pg 25.2 - 33.5 pg [facility] MCHC (RBC) [Mass/Vol] 34.8 g/dL 28.4 - 34.8 g/dL [facility] MCV (RBC) [Entitic vol] 91.2 fL 82.6 - 102.9 fL [facility] Monocytes/100 WBC (Bld) 9 % 3 - 12 % [facility] NRBC Automated 0.0 0.0 per 100 WBC [facility] Platelet distribution width (Bld) [Ratio] 13.5 % 11.8 - 14.4 % [facility] Platelet mean volume (Bld) [Entitic vol] 9.9 fL 8.1 - 13.5 fL [facility] Platelets (Bld) [#/Vol] 189 10*3/uL [facility] RBC (Bld) [#/Vol] 4.34 10*6/uL 4.21 - 5.77 m/uL [facility] Segmented neutrophils/100 WBC (Bld) 71 % High 36 - 65 % [facility] Segs Absolute 7.15 [facility] WBC (Bld) [#/Vol] 10.1 10*3/uL [facility] CBC with Diffon 12-30-2022 Abs. Basophil 0.06 k/uL Normal 0.00-0.20 [facility] Comment on above: Performed By: #### T NATHAN ALONZO, CDP #### [facility] [address] [place] [address] Housing Manager: Luis Carlos Del Castillo MD Abs.Imm.Granulocyte 0.04 k/uL Normal 0.00-0.30 [facility] Comment on above: Performed By: #### Ileana ALONZO CP, CDP #### [address] [place], [place] [phone] Housing Manager: Luis Carlos Del Castillo MD Abs.Neutrophil (Seg) 7.15 k/uL Normal 1.50-8.10 [facility] Comment on above: Performed By: #### Ileana ALONZO CP, CDP #### [address] [place], [place] [phone] Housing Manager: Luis Carlos Del Castillo MD Basophils/100 WBC (Bld) 1 % Normal 0-2 [facility] Comment on above: Performed By: #### Ileana ALONZO CP, CDP #### [address] [place], [place] [address] Housing Manager: Luis Carlos Del Castillo MD Eosinophils (Bld) [#/Vol] 0.07 10*3/uL Normal 0.00-0.44 [facility] Comment on above: Performed By: #### Ileana ALONZO CP, CDP #### [address] [place], [place] [phone] Housing Manager: Luis Carlos Del Castillo MD Eosinophils/100 WBC (Bld) 1 % Normal 1-4 [facility] Comment on above: Performed By: #### Ileana ALONZO CP, CDP #### [address] [place], [facility]83 Housing Manager: Luis Carlos Del Castillo MD Erythrocyte distribution width (RBC) [Ratio] 13.5 % Normal 11.8-14.4 [facility] Comment on above: Performed By: #### Ileana ALONZO CP, CDP #### [address] [place], [place] [phone] Housing Manager: Luis Carlos Del Castillo MD Hematocrit (Bld) [Volume fraction] 39.6 % Low 40.7-50.3 [facility] Comment on above: Performed By: #### Ileana ALONZO CP, CDP #### [facility] [address] [place], [place] [phone] Housing Manager: Luis Carlos Del Castillo MD Hemoglobin (Bld) [Mass/Vol] 13.8 g/dL Normal 13.0-17.0 [facility] Comment on above: Performed By: #### Ileana ALONZO CP, CDP #### [facility] [address] [place], [place] [phone] Housing Manager: Luis Carlos Del Castillo MD Immature granulocytes/100 WBC (Bld) 0 % Normal 0 [facility] Comment on above: Performed By: #### Ileana ALONZO CP, CDP #### [address] [place], [facility]83 Housing Manager: Luis Carlos Del Castillo MD Lymphocytes (Bld) [#/Vol] 1.83 10*3/uL Normal 1.10-3.70 [facility] Comment on above: Performed By: #### Ileana ALONZO CP, CDP #### [address] [place], [facility]83 Housing Manager: Luis Carlos Del Castillo MD Lymphocytes/100 WBC (Bld) 18 % Low 24-43 [facility] Comment on above: Performed By: #### Ileana ALONZO CP, CDP #### [facility] [address] [place] [address] Dr. [place], [facility]83 Housing Manager: Luis Carlos Del Castillo MD MCH (RBC) [Entitic mass] 31.8 pg Normal 25.2-33.5 [facility] Comment on above: Performed By: #### Ileana ALONZO CP, CDP #### [address] [place], [place] [phone] Housing Manager: Luis Carlos Del Castillo MD MCHC (RBC) [Mass/Vol] 34.8 g/dL Normal 28.4-34.8 [facility] Comment on above: Performed By: #### Ileana ALONZO CP, CDP #### [facility] [address] [place], [place] [phone] Housing Manager: Luis Carlos Del Castillo MD MCV (RBC) [Entitic vol] 91.2 fL Normal 82.6-102.9 [facility] Comment on above: Performed By: #### Ileana ALONZO CP, CDP #### [address] [place], [place] [phone] Housing Manager: Luis Carlos Del Castillo MD Monocytes (Bld) [#/Vol] 0.91 10*3/uL Normal 0.10-1.20 [facility] Comment on above: Performed By: #### Ileana ALOZNO CP, CDP #### [address] [place], [facility]83 Housing Manager: Luis Carlos Del Castillo MD Monocytes/100 WBC (Bld) 9 % Normal 3-12 [facility] Comment on above: Performed By: #### Ileana ALONZO CP, CDP #### [address] [place] [address] Housing Manager: Luis Carlos Del Castillo MD Neutrophil (Seg) 71 % High 36-65 [facility] Comment on above: Performed By: #### Ileana ALONZO CP, CDP #### [address] [place], [place] [phone] Housing Manager: Luis Carlos Del Castillo MD NRBC Automated 0.0 per 100 WBC Normal 0.0 [facility] Comment on above: Performed By: #### Ileana ALONZO CP, CDP #### [address] [place] [address] Housing Manager: Luis Carlos Del Castillo MD Platelet mean volume (Bld) [Entitic vol] 9.9 fL Normal 8.1-13.5 [facility] Comment on above: Performed By: #### T NATHAN ALONZO, CDP #### [facility] [address] [place], [place] [phone] Housing Manager: Luis Carlos Del Castillo MD Platelets (Bld) [#/Vol] 189 10*3/uL Normal 138-453 [facility] Comment on above: Performed By: #### Ileana ALONZO CP, CDP #### [facility] [address] [place], [place] [phone] Housing Manager: Luis Carlos Del Castillo MD RBC (Bld) [#/Vol] 4.34 10*6/uL Normal 4.21-5.77 [facility] Comment on above: Performed By: #### Ileana AOLNZO CP, CDP #### [facility] [address] [place] [address] [place] [address] Housing Manager: Luis Carlos Del Castillo MD WBC (Bld) [#/Vol] 10.1 10*3/uL Normal 3.5-11.3 [facility] Comment on above: Performed By: #### Ileana ALONZO CP, CDP #### [facility] [address] [place] [address] Dr. [place], [place] [phone] Housing Manager: Luis Carlos Del Castillo MD COVID-19, Rapidon 12-30-2022 SARS-CoV-2 (COVID-19) RdRp gene DAHLIA+probe Ql (Resp) Not detected Not Detected [facility] Comment on above: Rapid NAAT: The [...] management decisions. Fact sheet for Healthcare Providers: https://www.fda.gov/media/299928/download Fact sheet for Patients: https://www.fda.gov/media/264363/download Methodology: Isothermal Nucleic Acid Amplification Specimen Description .NASOPHARYNGEAL SWAB [facility] CT CHEST PULMONARY EMBOLISM W CONTRASTon [...] Dov Love MD 12/30/22 Final result Normal [facility] Negative for acute pulmonary embolus Right-sided aortic [...] helpful for further evaluation if clinically indicated. [facility] [employer] Work Phone: Radiology Study observation (narrative) [facility] [employer] Phone: CT CHEST PULMONARY EMBOLISM W CONTRASTOrdered By: Dov Love on 12-30-2022 [facility] [employer] Phone: Comp Metabolic Profon 2022 Albumin [Mass/Vol] 3.9 g/dL Normal 3.5-5.2 [facility] Comment on above: Performed By: #### Ileana ALONZO CP, CDP #### [facility] [address] [place] [address] Housing Manager: Luis Carlos Del Castillo MD Albumin/Glob Ratio 1.3 Normal 1.0-2.5 [facility] Comment on above: Performed By: #### Ileana ALONZO CP, CDP #### [facility] [address] [place] [address] Housing Manager: Luis Carlos Del Castillo MD Alkaline Phos 102 U/L Normal 40-129 [facility] Comment on above: Performed By: #### Ileana ALONZO CP, CDP #### [facility] [address] [place], [place] [phone] Housing Manager: Luis Carlos Del Castillo MD ALT [Catalytic activity/Vol] 19 U/L Normal 5-41 [facility] Comment on above: Performed By: #### Ileana ALONZO CP, CDP #### [facility] [address] [place] [address] Housing Manager: Luis Carlos Del Castillo MD Anion gap [Moles/Vol] 10 mmol/L Normal 9-17 [facility] Comment on above: Performed By: #### T NATHAN ALONZO, CDP #### [facility] [address] [place], [place] [phone] Housing Manager: Luis Carlos Del Castillo MD AST [Catalytic activity/Vol] 16 U/L Normal <40 [facility] Comment on above: Performed By: #### T CHERI CP, CDP #### [facility] [address] [place], [place] [phone] Housing Manager: Luis Carlos Del Castillo MD Bilirubin [Mass/Vol] 0.8 mg/dL Normal 0.3-1.2 [facility] Comment on above: Performed By: #### T NATHAN ALONZO, CDP #### [address] [place], [place] [phone] Housing Manager: Luis Carlos Del Castillo MD BUN/CRE Ratio 25 High 9-20 [facility] Comment on above: Performed By: #### T NATHAN ALONZO, CDP #### [address] [place], [place] [phone] Housing Manager: Luis Carlos Del Castillo MD Calcium [Mass/Vol] 9.5 mg/dL Normal 8.6-10.4 [facility] Comment on above: Performed By: #### T NATHAN ALONZO, CDP #### [address] [place], [place] [phone] Housing Manager: Luis Carlos Del Castillo MD Chloride [Moles/Vol] 105 mmol/L Normal 98-107 [facility] [facility] Comment on above: Performed By: #### T NATHAN ALONZO, CDP #### [facility] [address] [place], [place] [id number] Housing Manager: Luis Carlos Del Castillo MD CO2 [Moles/Vol] 24 mmol/L Normal 20-31 [facility] Comment on above: Performed By: #### T CHERI CP, CDP #### [facility] [address] [place] [address] Housing Manager: Luis Carlos Del Castillo MD Creatinine [Mass/Vol] 0.63 mg/dL Low 0.70-1.20 [facility] Comment on above: Performed By: #### Ileana ALONZO CP, CDP #### [facility] [address] [place] [address] Housing Manager: Luis Carlos Del Castillo MD GFR/1.73 sq M.predicted among non-blacks MDRD (S/P/Bld) [Vol rate/Area] mL/min/{1.73_m2} Normal >60 [facility] Comment on above: Result Comment: These results [...] By: #### Ileana ALONZO CP, CDP #### [facility] [address] [place] [address] [place] [address] Housing Manager: Luis Carlos Del Castillo MD Glucose [Mass/Vol] 113 mg/dL High 70-99 [facility] Comment on above: Performed By: #### Ileana ALONZO CP, CDP #### [address] [place] [address] Housing Manager: Luis Carlos Del Castillo MD Potassium [Moles/Vol] 3.9 mmol/L Normal 3.7-5.3 [facility] Comment on above: Performed By: #### Ileana ALONZO CP, CDP #### [address] [place] [address] Housing Manager: Luis Carlos Del Castillo MD Protein [Mass/Vol] 7.0 g/dL Normal 6.4-8.3 [facility] Comment on above: Performed By: #### Ileana ALONZO CP, CDP #### [facility] [address] [place] [address] Housing Manager: Luis Carlos Del Castillo MD Sodium [Moles/Vol] 139 mmol/L Normal 135-144 [facility] Comment on above: Performed By: #### T NATHAN ALONZO, CDP #### [facility] [address] [place] [address] Housing Manager: Luis Carlos Del Castillo MD Urea nitrogen [Mass/Vol] 16 mg/dL Normal 8-23 [facility] Comment on above: Performed By: #### T NATHAN ALONZO, CDP #### [facility] [address] [place] [address] Housing Manager: Luis Carlos Del Castillo MD Comprehensive Metabolic Pane [facility] 12-30-2022 Albumin [Mass/Vol] 3.9 g/dL 3.5 - 5.2 g/dL [facility] Albumin/Globulin [Mass ratio] 1.3 {ratio} 1.0 - 2.5 [facility] ALP [Catalytic activity/Vol] 102 U/L 40 - 129 U/L [facility] ALT [Catalytic activity/Vol] 19 U/L 5 - 41 U/L [facility] Anion gap [Moles/Vol] 10 mmol/L 9 - 17 mmol/L [facility] AST [Catalytic activity/Vol] 16 U/L NINF - 40 U/L [facility] Bilirubin [Mass/Vol] 0.8 mg/dL 0.3 - 1 .2 mg/dL [facility] Calcium [Mass/Vol] 9.5 mg/dL 8.6 - 10. 4 mg/dL [facility] Chloride [Moles/Vol] 105 mmol/L 98 - 10 7 mmol/L [facility] CO2 [Moles/Vol] 24 mmol/L 20 - 31 mmol/L [facility] Creatinine [Mass/Vol] 0.63 mg/dL Low 0.70 - 1.20 mg/dL [facility] GFR/1.73 sq M.predicted MDRD (S/P/Bld) [Vol rate/Area] - PINF [facility] [employer] Comment on above: These results are not [...] 113 mg/dL High 70 - 99 mg/dL [facility] Interpretation and review of laboratory results Abnormal [facility] [facility] Potassium [Moles/Vol] 3.9 mmol/L 3.7 - 5.3 mmol/L [facility] Protein [Mass/Vol] 7.0 g/dL 6.4 - 8.3 g/dL [facility] Sodium [Moles/Vol] 139 mmol/L 135 - 144 mmol/L [facility] Urea nitrogen [Mass/Vol] 16 mg/dL 8 - 23 mg/dL [employer] [facility] Urea nitrogen/Creatinine (Bld) [Mass ratio] 25 High 9 - 20 [facility] EKG 12 Leadon 12-30-2022 Atrial Rate 51 BPM [employer] Work Phone: P Curtiss 39 degrees [employer] Work Phone: P-R Interval 146 ms [employer] Work Phone: Q-T Interval 424 ms [facility] Work Phone: QRS Duration 72 ms [facility] Work Phone: QTc Calculation (Bazett) 390 ms [facility] Work Phone: R Curtiss 56 degrees [employer] Work Phone: T Curtiss 73 degrees [employer] Work Phone: Ventricular Rate 51 BPM [facility] [employer] Work Phone: Poor data qualit y, interpretation may be adversely affected Sinus bradycardia Nonspecific ST and T wave abnormality Abnormal ECG Confirmed by Fany Mohr MD ([id number]) on 12/30/2022 8:21:48 AM [facility] Fany Mohr MD - 12/30/2022 Poor data quality, interpretation may be adversely affected Sinus bradycardia Nonspecific ST and T wave abnormality Abnormal ECG Confirmed by Fany Mohr MD ([id number]) on 12/30/2022 8:21:48 AM [facility] [employer] Work Phone: [facility] [employer] Phone: EKG Rhythm Stripon 3 [facility] Echocardiogram complete 2D w ith doppler with coloron 12-30-2022 Left ventricular Ejection fraction 55 [facility] [employer] Phone: LVEF MODALITY ECHO [facility] [employer] Phone: [facility] Transthoracic Echocardiography Report (TTE) Patient Name ALVA Date of Study 12/30/2022 NOEL Vaca Date of 1960 Gender Male Age 62 year(s) Race Room Number 0327 Height: 66 inch, 167.64 cm Corporate ID [id number] Weight: 160 pounds, 72.6 kg # Patient Acct [id number] BSA: 1.82 m^2 BMI: 25.82 kg/m^2 # MR # [id number] 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 Procedure Date Date: 12/30/2022 Start: 02:20 PM Study Location: [facility] Indications:Chest pain. History / Tech. Comments: Dx: [...] MD / Result, Unknown Provider - 12/30/2022 [facility] Transthoracic Echocardiography Report (TTE) Patient Name ALVA Date of Study 12/30/2022 NOEL Vaca Date of 1960 Gender Male Age 62 year(s) Race Room Number 0327 Height: 66 inch, 167.64 cm Corporate ID [id number] Weight: 160 pounds, 72.6 kg # Patient Acct [id number] BSA: 1.82 m^2 BMI: 25.82 kg/m^2 # MR # [id number] 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 Procedure Date Date: 12/30/2022 Start: 02:20 PM Study Location: [facility] Indications:Chest pain. History / Tech. Comments: Dx: [...] Wall E' velocity:0.12 m/s Lateral Wall E/E':6.28 [facility] [employer] Work Phone: [facility] [employer] Work Phone: Resp Viral Panelon 3 Source: .NASOPHARYNGEAL SWAB Normal [facility] Comment on above: Performed By: #### L IPR #### [employer] [address] [place] [id number] Housing Manager: Marshall Paulino MD [id number] 12-30-2022 SARS-CoV-2 (COVID-19) RNA DAHLIA+probe Ql (Unsp spec) Not detected Normal [facility] Comment on above: Result Comment: Rapid [...] management decisions. Fact sheet for Healthcare Providers: https://www.fda.gov/media/941727/download Fact sheet for Patients: https://www.fda.gov/media/919525/download Methodology: Isothermal Nucleic Acid Amplification Performed By: #### L IPR #### [employer] [facility] [place] [address] Housing Manager: Marshall Paulino MD Troponinon 12-30-2022 Troponin, High Sens 17 ng/L Normal 0-22 [facility] Comment on above: Result Comment: High Sensitivity Troponin values cannot be compared with other Troponin methodologies. Performed By: #### L IPR #### [employer] [address] [place] [address] Housing Manager: Marshall Paulino MD Troponin, High Sens 19 ng/L Normal 0-22 [facility] Comment on above: Result Comment: High Sensitivity Troponin values cannot be compared with other Troponin methodologies. Performed By: #### T NATHAN ALONZO, CDP #### [facility] [address] [place] [address] Housing Manager: Luis Carlos Del Castillo MD Troponin I.cardiac DL <= 0.01 ng/mL [Mass/Vol] 17 ng/L 0 - 22 ng/L [facility] Comment on above: High Sensitivity Tro ponin values cannot be compared with other Troponin methodologies. [facility] Troponin I.cardiac DL <= 0.01 ng/mL [Mass/Vol] 19 ng/L 0 - 22 ng/L [facility] Comment on above: High Sensitivity Tro ponin values cannot be compared with other Troponin methodologies. [facility] XR CHEST PORTABLEon 12-31-19 XR CHEST [...] Sherrill Parmar MD 12/30/22 Final result Normal [facility] There is a new left midlung opacity [...] to resolution to exclude an underlying lesion. [employer] Phone: Radiology Study observation (narrative) [employer] Phone: XR CHEST PORTABLEOrdered By: Sherrill Parmar on 12-30-2022 [employer] Phone: XR LSPINE MIN 4 VIEWSon 12-04 [...] PEDRO PABLO CHAMBERS Date: 2022-12-18 13:59 Normal [facility] MRI LSPINE WO CONon 11-06-19 23 [...] PABLO CHAMBERS Date: 2022-11-06 15:08 Normal [facility] TESTOSTERONE, TOTALon 2021 Testosterone [Mass/Vol] 279 ng/dL Normal 264-916 [facility] Comment on above: Result Comment: Adul t male reference interval is based on a population of healthy nonobese males (BMI <30) between 19 and 39 years old. axel [place].al. JCEM 2017,102;3503-9244. PMID: [id number]. Performed By: #### H GBHCT #### [facility] [address] [place] [address] Dr. Raimundo Estrada CBC AUTO DIFFon 09-11-2022 BASO # 0.1 103/ul Normal 0.0-0.1 [facility] Comment on above: Performed By: #### H GBHCT #### [facility] [address] [address] [address] Raimundo Estrada Basophils/100 WBC (Bld) 0.6 % Normal 0.2-2.0 [facility] Comment on above: Performed By: #### H GBHCT #### [facility] [address] [address] [address] Raimundo Estrada EO # 0.2 103/ul Normal 0.0-0.7 [facility] Comment on above: Performed By: #### H GBHCT #### [facility] [address] [place] [address] Dr. Raimundo Estrada Eosinophils/100 WBC (Bld) 2.4 % Normal 0.9-7.0 [facility] Comment on above: Performed By: #### H GBHCT #### [facility] [address] [place] [address] Dr. Raimundo Estrada Erythrocyte distribution width (RBC) [Ratio] 14.1 % Normal 11.0-15.0 [facility] Comment on above: Performed By: #### H GBHCT #### [facility] [address] [place] [address] Dr. Raimundo Estrada Hematocrit (Bld) [Volume fraction] 40.2 % Critically low 42.0-54.0 [facility] Comment on above: Performed By: #### H GBHCT #### [facility] [address] [place] [address] Dr. Raimundo Estrada Hemoglobin (Bld) [Mass/Vol] 13.4 g/dL Critically low 14.0-18.0 [facility] Comment on above: Performed By: #### H GBHCT #### [facility] [address] [place] [address] Dr. Raimundo Estrada IG # 0.03 10e3/ul Normal 0.00-0.03 [facility] Comment on above: Performed By: #### H GBHCT #### [facility] [address] [address] [address] Raimundo Estrada IG % 0.4 % Normal 0.0-0.5 [facility] Comment on above: Performed By: #### H GBHCT #### [facility] [address] [address] [address] Raimundo Estrada LYMPH # 1.7 103/ul Normal 1.2-3.8 [facility] Comment on above: Performed By: #### H GBHCT #### [facility] [address] [address] [address] Raimundo Estrada Lymphocytes/100 WBC (Bld) 20.8 % Normal 20.5-60.0 [facility] Comment on above: Performed By: #### H GBHCT #### [facility] [address] [address] [address] Raimundo Estrada MANUAL DIFF REQ NO Normal [facility] Comment on above: Performed By: #### H GBHCT #### [facility] [address] [address] [address] Raimundo Estrada MCH (RBC) [Entitic mass] 31.8 pg Normal 25.9-34.0 [facility] Comment on above: Performed By: #### H GBHCT #### [facility] [address] [address] [address] Raimundo Estrada MCHC (RBC) [Mass/Vol] 33.3 g/dL Normal 29.9-35.2 [facility] Comment on above: Performed By: #### H GBHCT #### [facility] [address] [address] [address] Raimundo Estrada MCV (RBC) [Entitic vol] 95.3 fL Critically high 80.0-94.0 [facility] Comment on above: Performed By: #### H GBHCT #### [facility] [address] [address] [address] Raimundo Estrada MONO # 0.8 103/ul Normal 0.3-0.8 [facility] Comment on above: Performed By: #### H GBHCT #### [facility] [address] [address] [address] Raimundo Estrada Monocytes/100 WBC (Bld) 9.7 % Normal 1.7-12.0 [facility] Comment on above: Performed By: #### H GBHCT #### [facility] [address] [address] [address] Raimundo Estrada NEUT # 5.2 103/ul Normal 1.4-6.5 [facility] Comment on above: Performed By: #### H GBHCT #### [facility] [address] [address] [address] Raimundo Estrada Neutrophils/100 WBC (Bld) 66.1 % Normal 43.0-75.0 [facility] Comment on above: Performed By: #### H GBHCT #### [facility] [address] [place] [address] Dr. Raimundo Estrada Platelet mean volume (Bld) [Entitic vol] 10.1 fL Normal 9.5-13.5 [facility] Comment on above: Performed By: #### H GBHCT #### [facility] [address] [address] [address] Raimundo Estrada PLT 189 103/ul Normal 150-450 [facility] Comment on above: Performed By: #### H GBHCT #### [facility] [address] [place] [address] Dr. Raimundo Estrada RBC 4.22 106/ul Critically low 4.70-6.10 [facility] Comment on above: Performed By: #### H GBHCT #### [facility] [address] [place] [address] Dr. Raimundo Estrada WBC 7.9 103/ul Normal 4.0-11.0 [facility] Comment on above: Performed By: #### H GBHCT #### [facility] [address] [place] [address] Dr. Raimundo Estrada FREE T3on 09-11-2022 FREE T3 2.85 pg/mlL Normal 2.18-3.98 [facility] Comment on above: Performed By: #### T SH, FT3, LIVER, BMP, LIPID #### [facility] [address] [address] [address] Raimundo Estrada FREE T4on 09-11-2022 Free T4 [Mass/Vol] 0.85 ng/dL Normal 0.76-1.46 [facility] Comment on above: Performed By: #### H GBHCT #### [facility] [address] [address] [address] Raimundo Estrada GLYCOHEMOGLOBIN A1Con 2021 ADA RECOMMENDATION SEE BELOW Normal [facility] Comment on above: Result Comment: ADA RECOMMENDED LIMIT 4.0 - 6.0 ADA THERAPEUTIC TARGET < 7.0 ACTION SUGGESTED > 7.0 Performed By: #### H GBHCT #### [facility] [address] [place] [address] Dr. Raimundo Estrada Glucose [Mass/Vol] 111 mg/dL Normal [facility] Comment on above: Performed By: #### H GBHCT #### [facility] [address] [address] [address] Raimundo Estrada HbA1c (Bld) [Mass fraction] 5.5 % Normal 4.5-6.2 [facility] Comment on above: Performed By: #### H GBHCT #### [facility] [address] [place] [address] Dr. Raimundo Estrada LIPID PROFILEon 09-11-2022 CHOL-HDL RATIO NORM SEE BELOW Normal [facility] Comment on above: Result Comment: 3.3 - 4.4 LOW RISK 4.4 - 7.1 AVERAGE RISK 7.1 - 11.0 MODERATE RISK >11.0 HIGH RISK Performed By: #### T SH, FT3, LIVER, BMP, LIPID #### [facility] [address] [address] [address] Raimundo Estrada Cholesterol [Mass/Vol] 129 mg/dL Normal <=200 [facility] Comment on above: Performed By: #### T SH, FT3, LIVER, BMP, LIPID #### [facility] [address] [address] [address] Raimundo Estrada Cholesterol in HDL [Mass/Vol] 62 mg/dL Critically high 40-60 [facility] Comment on above: Performed By: #### T SH, FT3, LIVER, BMP, LIPID #### [facility] [address] [address] [address] Raimundo Estrada Cholesterol in LDL [Mass/Vol] 53.4 mg/dL Normal [facility] Comment on above: Performed By: #### T SH, FT3, LIVER, BMP, LIPID #### [facility] [address] [address] [address] Raimundo Estrada Cholesterol.total/Ch olesterol in HDL [Mass ratio] 2.1 {ratio} Normal [facility] Comment on above: Performed By: #### T SH, FT3, LIVER, BMP, LIPID #### [facility] [address] [address] [address] Raimundo Estrada HDL NORMAL > or = 60 mg/dl - LO W CARDIOVASCULAR RISK <40 mg/dl - HIGH CARDIOVASCULAR RISK Normal [facility] Comment on above: Performed By: #### T SH, FT3, LIVER, BMP, LIPID #### [facility] [address] [address] [address] Raimundo Estrada LDL CALC NORMAL SEE BELOW Normal [facility] Comment on above: Result Comment: <100 mg/dl OPTIMAL 100 - 129 mg/dl NEAR OR ABOVE OPTIMAL 130 - 159 mg/dl BORDERLINE HIGH 160 - 189 mg/dl HIGH >190 mg/dl VERY HIGH Performed By: #### T SH, FT3, LIVER, BMP, LIPID #### [facility] [address] [address] [address] Raimundo Estrada Triglyceride [Mass/Vol] 68 mg/dL Normal <=150 [facility] Comment on above: Performed By: #### T SH, FT3, LIVER, BMP, LIPID #### [facility] [address] [address] [address] Raimundo Estrada VLDL CALC 13.6 mg/dL Normal [facility] Comment on above: Performed By: #### T SH, FT3, LIVER, BMP, LIPID #### [facility] [address] [address] [address] Raimundo Estrada LIVER PROFILEon 09-11-2022 Albumin [Mass/Vol] 3.8 g/dL Normal 3.4-5.0 [facility] Comment on above: Performed By: #### T SH, FT3, LIVER, BMP, LIPID #### [facility] [address] [address] [address] Raimundo Estrada Albumin/Globulin [Mass ratio] 1.0 {ratio} Normal [facility] Comment on above: Performed By: #### T SH, FT3, LIVER, BMP, LIPID #### [facility] [address] [place] [address] Dr. Raimundo Estrada ALP [Catalytic activity/Vol] 103 U/L Normal 46-116 [facility] Comment on above: Performed By: #### T SH, FT3, LIVER, BMP, LIPID #### [facility] [address] [place] [address] Dr. Raimundo Estrada ALT [Catalytic activity/Vol] 46 U/L Normal 16-63 [facility] Comment on above: Performed By: #### T SH, FT3, LIVER, BMP, LIPID #### [facility] [address] [place] [address] Dr. Raimundo Estrada AST [Catalytic activity/Vol] 35 U/L Normal 15-37 [facility] Comment on above: Performed By: #### T SH, FT3, LIVER, BMP, LIPID #### [facility] [address] [place] [address] Dr. Raimundo Estrada BILI, CONJUGATED 0.2 mg/dL Normal 0.0-0.2 [facility] [place] Comment on above: Performed By: #### T SH, FT3, LIVER, BMP, LIPID #### [facility] [address] [place] [address] Dr. Raimundo Estrada Bilirubin [Mass/Vol] 0.7 mg/dL Normal 0.2-1.0 [facility] Comment on above: Performed By: #### T SH, FT3, LIVER, BMP, LIPID #### [facility] [address] [place] [address] Dr. Raimundo Estrada Globulin (S) [Mass/Vol] 3.8 g/dL Normal [facility] Comment on above: Performed By: #### T SH, FT3, LIVER, BMP, LIPID #### [facility] [address] [place] [address] Dr. Raimundo Estrada Protein [Mass/Vol] 7.6 g/dL Normal 6.4-8.2 [facility] Comment on above: Performed By: #### T SH, FT3, LIVER, BMP, LIPID #### [facility] [address] [place] [address] Dr. Raimundo Estrada PROF CHEM 8 (BAS METB)on Anion gap [Moles/Vol] 13.9 mmol/L Normal [facility] Comment on above: Performed By: #### T SH, FT3, LIVER, BMP, LIPID #### [facility] [address] [place] [address] Dr. Raimundo Estrada Calcium [Mass/Vol] 9.3 mg/dL Normal 8.5-10.1 [facility] Comment on above: Performed By: #### T SH, FT3, LIVER, BMP, LIPID #### [facility] [address] [place] [address] Dr. Raimundo Estrada Chloride [Moles/Vol] 104 mmol/L Normal 98-107 [facility] Comment on above: Performed By: #### T SH, FT3, LIVER, BMP, LIPID #### [facility] [address] [place] [address] Dr. Raimundo Estrada CO2 [Moles/Vol] 28.6 mmol/L Normal 21.0-32.0 [facility] Comment on above: Performed By: #### T SH, FT3, LIVER, BMP, LIPID #### [facility] [address] [place] [address] Dr. Raimundo Estrada Creatinine [Mass/Vol] 0.77 mg/dL Normal 0.70-1.30 [facility] Comment on above: Performed By: #### T SH, FT3, LIVER, BMP, LIPID #### [facility] [address] [place] [address] Dr. Raimundo Estrada EGFR-AF WELSH >60 Normal >=60 [facility] Comment on above: Performed By: #### T SH, FT3, LIVER, BMP, LIPID #### [facility] [address] [address] [address] Raimundo Estrada EGFR-NON AF WELSH >60 Normal >=60 [facility] Comment on above: Performed By: #### T SH, FT3, LIVER, BMP, LIPID #### [facility] [address] [address] [address] Raimundo Estrada Glucose [Mass/Vol] 90 mg/dL Normal 74-106 [facility] Comment on above: Performed By: #### T SH, FT3, LIVER, BMP, LIPID #### [facility] [address] [place] [address] Dr. Raimundo Estrada Potassium [Moles/Vol] 4.5 mmol/L Normal 3.5-5.1 [facility] Comment on above: Performed By: #### T SH, FT3, LIVER, BMP, LIPID #### [facility] [address] [address] [address] Raimundo Estrada Sodium [Moles/Vol] 142 mmol/L Normal 136-145 [facility] Comment on above: Performed By: #### T SH, FT3, LIVER, BMP, LIPID #### [facility] [address] [place] [address] Dr. Raimundo Estrada Urea nitrogen [Mass/Vol] 22.0 mg/dL Critically high 7.0-18.0 [facility] Comment on above: Performed By: #### T SH, FT3, LIVER, BMP, LIPID #### [facility] [address] [address] [address] Raimundo Estrada Urea nitrogen/Creatinine [Mass ratio] 28.6 mg/mg Normal [facility] Comment on above: Performed By: #### T SH, FT3, LIVER, BMP, LIPID #### [facility] [address] [place] [address] Dr. Raimundo Estrada TSHon 09-11-2022 TSH 1.375 uIU/mL Normal 0.358-3.74 0 [facility] Comment on above: Performed By: #### T SH, FT3, LIVER, BMP, LIPID #### [facility] [address] [place], [place] [address] Dr. Raimundo Estrada VITAMIN B12on 09-11-2022 Cobalamin (Vitamin B12) [Mass/Vol] 635.0 pg/mL Normal 193.0-986. 0 [facility] Comment on above: Performed By: #### L IPID #### [facility] [address] [place], [place] [address] Dr. Raimundo Estrada General Surgery Office/Clini c [...] History Ongoing Asthma BMI 25.0-25.9,adult CAD in iqugmiut artery DDD (degenerative disc disease), lumbar Depression [...] Tab, 25 mg= 1 tab(s), Oral, BID [place] 5/325 Tab, 1 tab(s), Oral, BID Protonix [...] Coronary artery disease: Mother and Father. Normal [facility] Comment on above: Result Comment: Elec tronically Signed By: EMILY DRUMMOND, Jluian Rothman\Date and Time Signed: 07/10/22 17:09 EDT Reminderson 07-08-2022 Reminders - From: Karon Dumont LPN To: N - Clinical; Sent: 07/08/2022 15:58:22 EDT Show up: 05/26/2027 07:00:00 EDT Subject: colonoscopy recall Due Date/Time: 06/26/2027 07:00:00 EDT Reminder/Recall Patient is due for colonoscopy 06/26/2027 due to sigmoid polyp that was not retrieved. Normal [facility] Pathology Noteon 06-28-2022 Pathology Note [id number]#[id number]:127 Normal [facility] Outside Colonoscopyon 2021 Outside Colonoscopy [id number]#[id number]:127 Normal [facility] HEMOGLOBIN AND HEMATOCRITon 06-26-2022 Hematocrit (Bld) [Volume fraction] 44.2 % Normal 42.0-54.0 [facility] Comment on above: Performed By: #### H GBHCT #### [facility] [address] [place] [address] Dr. Raimundo Estrada Hemoglobin (Bld) [Mass/Vol] 15.0 g/dL Normal 14.0-18.0 [facility] Comment on above: Performed By: #### H GBHCT #### [facility] [address] [place] [address] Dr. Raimundo Estrada Lab Reportson 06-24-2022 Lab Reports [id number]#[id number]:127 Normal [facility] Covid-19 PCR (CVDTB)on 06-06 SARS-CoV-2 (COVID-19) RNA DAHLIA+probe Ql (Unsp spec) Not detected Normal NOT DETECTED [facility] Comment on above: Result Comment: This test is not yet approved or cleared by the [place] FDA. When there are no FDA-approved or cleared tests available, and other criteria are met, FDA can make tests available under an emergency access mechanism called an Emergency Use Authorization (EUA). The EUA for this test is supported by the Movement Education Specialist of Health and Human Service's (HHS's) declaration [...] SARS-CoV-2. Performed By: #### H GBHCT #### [facility] [address] [place] [address] Dr. Raimundo Estrada Consent for Procedure/Surger yon 06-03-2022 Consent for Procedure/Surgery [id number]:127 [facility] Pre-Certification Formon Pre-Certification Form [id number]#[id number]:127 [facility] Ambulatory Visit Summaryon 0 05-31-2022 Ambulatory Visit Summary NOEL ALVA :1960 Visit Date:05/31/2022 Ambulatory Visit Instructions Your Diagnosis Epigastric pain Hematemesis Your Care Team Attending Physician - EMILY DRUMMOND, Julian Davis Primary Care Physician - MAGDA DRUMMOND, ROMARIO Referring Physician - MAGDA DRUMMOND, ROMARIO This Is Your Medications List pantoprazole (Protonix 40 mg Tab-DR) Contact prescribing physician if questions or concerns acetaminophen-hydrocodone ([place] 5/325 Tab) albuterol (albuterol HFA 90 mcg/inh [...] Epigastric pain Hematemesis Refills: 3 Pickup at [facility] Unchanged acetaminophen-hydrocodone ([place] 5/ 325 Tab) 1 Tablets By Mouth [...] physician if questions or concerns Pharmacy Information [facility]: [address] [place], [place] [id number] [phone] Allergies No Known Allergies No Known Medication Allergies Problems Ongoing - Any problem that you are currently receiving treatment for. Asthma BMI 25.0-25.9,adult CAD in [place]qugmiut artery DDD (degenerative disc disease), lumbar Depression Epigastric pain Gouty arthritis Hematemesis Iron deficiency anemia Vitamin D deficiency Normal [facility] Lab Reportson 05-30-2022 Lab Reports [id number]#1.00CD:127 Normal [facility] Lab Reportson 05-23-2022 Lab Reports [id number]#1.00CD:127 Normal [facility] Lab Reports [id number]#[id number]:127 Normal [facility] Physician Referralon 022 Physician Referral [id number]#[id number]:127 Normal [facility] CBC AUTO DIFFon 04-03-2022 BASO # 0.0 103/ul Normal 0.0-0.1 [facility] Comment on above: Performed By: #### C BC #### [facility] [address] [address] [address] Raimundo Estrada Basophils/100 WBC (Bld) 0.3 % Normal 0.2-2.0 [facility] Comment on above: Performed By: #### C BC #### [facility] [address] [place] [address] Dr. Raimundo Estrada EO # 0.1 103/ul Normal 0.0-0.7 [facility] Comment on above: Performed By: #### C BC #### [facility] [address] [place] [address] Dr. Raimundo Estrada Eosinophils/100 WBC (Bld) 0.7 % Critically low 0.9-7.0 [facility] Comment on above: Performed By: #### C BC #### [facility] [address] [place] [address] Dr. Raimundo Estrada Erythrocyte distribution width (RBC) [Ratio] 14.4 % Normal 11.0-15.0 [facility] Comment on above: Performed By: #### C BC #### [facility] [address] [place] [address] Dr. Raimundo Estrada Hematocrit (Bld) [Volume fraction] 38.2 % Critically low 42.0-54.0 [facility] Comment on above: Performed By: #### C BC #### [facility] [address] [place] [address] Dr. Raimundo Estrada Hemoglobin (Bld) [Mass/Vol] 12.8 g/dL Critically low 14.0-18.0 [facility] Comment on above: Performed By: #### C BC #### [facility] [address] [address] [address] Raimundo Estrada IG # 0.04 10e3/ul Critically high 0.00-0.03 [facility] Comment on above: Performed By: #### C BC #### [facility] [address] [place] [address] Dr. Raimundo Estrada IG % 0.3 % Normal 0.0-0.5 [facility] Comment on above: Performed By: #### C BC #### [facility] [address] [place] [address] Dr. Raimundo Estrada LYMPH # 1.1 103/ul Critically low 1.2-3.8 [facility] Comment on above: Performed By: #### C BC #### [facility] [address] [place] [address] Dr. Raimundo Estrada Lymphocytes/100 WBC (Bld) 9.4 % Critically low 20.5-60.0 [facility] Comment on above: Performed By: #### C BC #### [facility] [address] [place] [address] Dr. Raimundo Estrada MANUAL DIFF REQ NO Normal [facility] Comment on above: Performed By: #### C BC #### [facility] [address] [place] [address] Dr. Raimundo Estrada MCH (RBC) [Entitic mass] 30.7 pg Normal 25.9-34.0 [facility] Comment on above: Performed By: #### C BC #### [facility] [address] [place] [address] Dr. Raimundo Estrada MCHC (RBC) [Mass/Vol] 33.5 g/dL Normal 29.9-35.2 [facility] Comment on above: Performed By: #### C BC #### [facility] [address] [place] [address] Dr. Raimundo Estrada MCV (RBC) [Entitic vol] 91.6 fL Normal 80.0-94.0 [facility] Comment on above: Performed By: #### C BC #### [facility] [address] [address] [address] Raimundo Estrada MONO # 0.7 103/ul Normal 0.3-0.8 [facility] Comment on above: Performed By: #### C BC #### [facility] [address] [address] [address] Raimundo Estrada Monocytes/100 WBC (Bld) 5.8 % Normal 1.7-12.0 [facility] Comment on above: Performed By: #### C BC #### [facility] [address] [address] [address] Raimundo Estrada NEUT # 9.6 103/ul Critically high 1.4-6.5 [facility] Comment on above: Performed By: #### C BC #### [facility] [address] [place] [address] Dr. Raimundo Estrada Neutrophils/100 WBC (Bld) 83.5 % Critically high 43.0-75.0 [facility] Comment on above: Performed By: #### C BC #### [facility] [address] [place] [address] Dr. Raimundo Estrada Platelet mean volume (Bld) [Entitic vol] 9.3 fL Critically low 9.5-13.5 [facility] Comment on above: Performed By: #### C BC #### [facility] [address] [place] [address] Dr. Raimundo Estrada PLT 165 103/ul Normal 150-450 [facility] Comment on above: Performed By: #### C BC #### [facility] [address] [place] [address] Dr. Raimundo Estrada RBC 4.17 106/ul Critically low 4.70-6.10 [facility] Comment on above: Performed By: #### C BC #### [facility] [address] [place] [address] Dr. Raimundo Estrada WBC 11.6 103/ul Critically high 4.0-11.0 [facility] Comment on above: Performed By: #### C BC #### [facility] [address] [place] [address] Dr. Raimundo Estrada IRONon 04-03-2022 Iron [Mass/Vol] 63.0 ug/dL Critically low 65.0-175.0 [facility] Comment on above: Performed By: #### I HUBERT #### [facility] [address] [place] [address] Dr. Raimundo Estrada PROTIMEon 04-03-2022 INR Coag (PPP) [Relative time] 0.98 {INR} Normal [facility] Comment on above: Performed By: #### H GBHCT #### [facility] [address] [place] [address] Dr. Raimundo Estrada INR GUIDELINES SEE BELOW Normal [facility] Comment on above: Result Comment: KEIRA RED INR: 2.0 - 3.0 CONDITIONS NOT LISTED BELOW 2.5 - 3.5 FOR PROSTHETIC HEART VALVE REPLACEMENT 2.5 - 3.5 RECURRENT THROMBOSIS Performed By: #### H GBHCT #### [facility] [address] [place] [address] Dr. Raimundo Estrada PT Coag (PPP) [Time] 10.6 s Normal 9.0-11.6 [facility] Comment on above: Performed By: #### H GBHCT #### [facility] [address] [place] [address] Dr. Raimundo Estrada PTTon 04-03-2022 aPTT Coag (Bld) [Time] 26.2 s Normal 22.3-36.2 [facility] Comment on above: Performed By: #### H GBHCT #### [facility] [address] [place] [address] Dr. Raimundo Estrada Sedimentation Rateon 022 Sed Rate 10 [facility] LIPID PROFILEon 03-12-2022 CHOL-HDL RATIO NORM SEE BELOW Normal [facility] Comment on above: Result Comment: 3.3 - 4.4 LOW RISK 4.4 - 7.1 AVERAGE RISK 7.1 - 11.0 MODERATE RISK >11.0 HIGH RISK Performed By: #### L IPID #### [facility] [address] [address] [address] Raimundo Estrada Cholesterol [Mass/Vol] 126 mg/dL Normal <=200 [facility] Comment on above: Performed By: #### L IPID #### [facility] [address] [address] [address] Raimundo Estrada Cholesterol in HDL [Mass/Vol] 68 mg/dL Critically high 40-60 [facility] Comment on above: Performed By: #### L IPID #### [facility] [address] [address] [address] Raimundo Estrada Cholesterol in LDL [Mass/Vol] 52.0 mg/dL Normal [facility] Comment on above: Performed By: #### L IPID #### [facility] [address] [address] [address] Raimundo Estrada Cholesterol.total/Ch olesterol in HDL [Mass ratio] 1.9 {ratio} Normal [facility] Comment on above: Performed By: #### L IPID #### [facility] [address] [place] [address] Dr. Raimundo Estrada HDL NORMAL > or = 60 mg/dl - LO W CARDIOVASCULAR RISK <40 mg/dl - HIGH CARDIOVASCULAR RISK Normal [facility] Comment on above: Performed By: #### L IPID #### [facility] [address] [place] [address] Dr. Raimundo Estrada LDL CALC NORMAL SEE BELOW Normal [facility] Comment on above: Result Comment: <100 mg/dl OPTIMAL 100 - 129 mg/dl NEAR OR ABOVE OPTIMAL 130 - 159 mg/dl BORDERLINE HIGH 160 - 189 mg/dl HIGH >190 mg/dl VERY HIGH Performed By: #### L IPID #### [facility] [address] [address] [address] Raimundo Estrada Triglyceride [Mass/Vol] 30 mg/dL Normal <=150 [facility] Comment on above: Performed By: #### L IPID #### [facility] [address] [address] [address] Raimundo Estrada VLDL CALC 6.0 mg/dL Normal [facility] Comment on above: Performed By: #### L IPID #### [facility] [address] [address] [address] Raimundo Estrada CBC Auto DifferentialOrdered By: Julian Dougherty on 03-09-2021 Absolute Eos # <0.03 OROS [facility] Work Phone: Absolute Immature Granulocyte 0.04 [employer] Work Phone: Absolute Lymph # 1.49 [employer] [facility] Work Phone: Absolute Rolette # 1.27 High [employer] [facility] Work Phone: Basophils (Bld) [#/Vol] 0.03 10*3/uL [employer] Work Phone: Basophils/100 WBC (Bld) 0 % 0 - 2 % [employer] Phone: Differential Type NOT REPORTED [employer] Phone: Eosinophils/100 WBC (Bld) 0 % Low 1 - 4 % [employer] Work Phone: Hematocrit (Bld) [Volume fraction] 41.8 % 40.7 - 50.3 % [employer] Phone: Hemoglobin.gastroint estinal spec 1 Ql (Stl) 14.3 g/dL 13.0 - 17.0 g/dL [employer] Phone: Immature granulocytes/100 WBC (Bld) 0 % 0 [employer] Work Phone: Interpretation and review of laboratory results Abnormal [employer] Phone: Lymphocytes/100 WBC (Bld) 14 % Low 24 - 43 % [employer] Phone: MCH (RBC) [Entitic mass] 30.6 pg 25.2 - 33.5 pg [employer] Phone: MCHC (RBC) [Mass/Vol] 34.2 g/dL 28.4 - 34.8 g/dL [employer] Phone: MCV (RBC) [Entitic vol] 89.5 fL 82.6 - 102.9 fL [employer] Phone: Monocytes/100 WBC (Bld) 12 % 3 - 12 % [employer] Phone: NRBC Automated 0.0 0.0 per 100 WBC [employer] Phone: Platelet distribution width (Bld) [Ratio] 13.2 % 11.8 - 14.4 % [employer] Phone: Platelet Estimate NOT REPORTED [employer] Phone: Platelet mean volume (Bld) [Entitic vol] 10.3 fL 8.1 - 13.5 fL [employer] Phone: Platelets (Bld) [#/Vol] 169 10*3/uL [employer] Phone: RBC (Bld) [#/Vol] 4.67 10*6/uL 4.21 - 5.77 m/uL [employer] Phone: RBC (Bld) [#/Vol] NOT REPORTED [employer] Phone: Segmented neutrophils/100 WBC (Bld) 74 % High 36 - 65 % [employer] Phone: Segs Absolute 7.59 [employer] Work Phone: WBC (Bld) [#/Vol] 10.4 10*3/uL [employer] Phone: WBC (Bld) [#/Vol] NOT REPORTED [employer] Phone: [employer] Phone: Sedimentation RateOrdered By : Julian Dougherty on 03-09-2021 Interpretation and review of laboratory results Abnormal [employer] Phone: Sed Rate 63 mm High 0 - 20 mm [employer] Phone: [employer] Phone: Uric AcidOrdered By: Julian Dougherty on 03-09-2021 Urate [Mass/Vol] 4.3 mg/dL 3.4 - 7.0 mg/dL [employer] Phone: [employer] Phone: XR WRIST RIGHT (MIN 3 VIEWS) Ordered By: Julian Dougherty on 03-09-2021 Arthritic changes an d mild soft tissue swelling without acute osseous abnormality. [employer] Phone: EXAMINATION: 3 XRAY VIEWS OF [...] No acute fracture, or dislocation is noted. [employer] Phone: Mauri, Mhpn Incoming R adiant Results From [employer] - 03/09/2021 10:56 AM EDT EXAMINATION: 3 [...] soft tissue swelling without acute osseous abnormality. [employer] Phone: [employer] Phone: VL DUP CAROTID BILATERALon 1 10-17-2019 OROS [facility] l Vascular Carotid Procedure Patient Name ALVA Date of Study 08/16/2020 NOEL Vaca Date of 1960 Gender Male Age 59 year(s) Race Room Number Corporate ID # [id number] Patient MR # [id number] [employer] KEVON Tobar Interpreting Physician Mike Centeno MD [...] left side. - Additional Measurements:ICAPSV/CCAPSV 0.76.ICAEDV/CCAEDV 1.49. [facility] [place], [place] Mauri, Mhpn Incoming C ardio Results From [employer] - 08/17/2020 9:08 AM [facility] Vascular Carotid Procedure Patient Name ALVA Date of Study 08/16/2020 NOEL Vaca Date of 1960 Gender Male Age 59 year(s) Race Room Number Corporate ID # [id number] Patient MR # [id number] [employer] KEVON Tobar Interpreting Physician Mike Centeno MD [...] left side. - Additional Measurements:ICAPSV/CCAPSV 0.76.ICAEDV/CCAEDV 1.49. [employer] [place], [employer] CBC auto differentialon 07-06 Basophils (Bld) [#/Vol] 0.04 10*3/uL [facility] [place], [place] Basophils/100 WBC (Bld) 0 % 0 - 2 % [facility] [employer] [place], [place] Differential Type NOT REPORTED [facility], [place] Eosinophils (Bld) [#/Vol] 0.04 10*3/uL [place] Eosinophils/100 WBC (Bld) 0 % Low 1 - 4 % [place] Erythrocyte distribution width (RBC) [Ratio] 13.9 % 11.8 - 14.4 % [place] Hematocrit (Bld) [Volume fraction] 42.7 % 40.7 - 50.3 % [place] Hemoglobin (Bld) [Mass/Vol] 14.3 g/dL 13 - 17 g/dL [place] Immature granulocytes (Bld) [#/Vol] 0.03 10*3/uL [place] Immature granulocytes (Bld) [#/Vol] 0 % 0 [place] Interpretation and review of laboratory results Abnormal [place] Lymphocytes (Bld) [#/Vol] 1.95 10*3/uL [place] Lymphocytes/100 WBC (Bld) 20 % Low 24 - 43 % [place] MCH (RBC) [Entitic mass] 31.2 pg 25.2 - 33.5 pg [place] MCHC (RBC) [Mass/Vol] 33.5 g/dL 28.4 - 34.8 g/dL [place] MCV (RBC) [Entitic vol] 93.0 fL 82.6 - 102.9 fL [place] Monocytes (Bld) [#/Vol] 0.96 10*3/uL [place] Monocytes/100 WBC (Bld) 10 % 3 - 12 % [place] Platelet mean volume (Bld) [Entitic vol] 10.2 fL 8.1 - 13.5 fL [place] Platelets (Bld) [#/Vol] NOT REPORTED [place] Platelets (Bld) [#/Vol] 189 10*3/uL [place] RBC (Bld) [#/Vol] 4.59 10*6/uL 4.21 - 5.77 m/uL [place] RBC morphology finding Nom (Bld) NOT REPORTED [place] Segmented neutrophils/100 WBC (Bld) 70 % High 36 - 65 % [place] Segs Absolute 7.00 [facility] [place] WBC (Bld) [#/Vol] 10.0 10*3/uL [place] WBC (Bld) [#/Vol] 0.0 10*3/uL 0.0 per 100 WBC [place] WBC Morphology NOT REPORTED [facility] [place] CT ABDOMEN PELVIS WO CONTRAS T [...] to suggest a definite acute inflammatory process. [place] EXAMINATION: CT OF Ileana MOORE ABDOMEN [...] and moderate canal stenosis. No pars defects. [facility] [place] Mauri, Mhpn Incoming R adiant Results From [employer] - 07/18/2020 9:12 AM EDT EXAMINATION: CT [...] to suggest a definite acute inflammatory process. [place] Comprehensive Metabolic Pane pat 07-18-2020 Albumin [Mass/Vol] 4.3 g/dL 3.5 - 5.2 g/dL [place] Albumin/Globulin [Mass ratio] 1.5 {ratio} [place] ALP [Catalytic activity/Vol] 71 U/L 40 - 129 U/L [place] ALT [Catalytic activity/Vol] 26 U/L 5 - 41 U/L [place] Anion gap [Moles/Vol] 13 mmol/L 9 - 17 mmol/L [place] AST [Catalytic activity/Vol] 26 U/L <40 [place] Bilirubin Ql (U) 1.44 mg/dL High 0.3 - 1.2 mg/dL [place] Bun/Cre Ratio 28 High [place], [place] Calcium [Mass/Vol] 9.4 mg/dL 8.6 - 10. 4 mg/dL [place] Chloride [Moles/Vol] 103 mmol/L 98 - 10 7 mmol/L [place] CO2 [Moles/Vol] 23 mmol/L 20 - 31 mmol/L [place] Creatinine [Mass/Vol] 0.79 mg/dL 0.7 - 1.2 mg/dL [place] GFR >60 >60 mL/min [place] GFR Non- >60 >60 mL/min [place] Glucose [Mass/Vol] 93 mg/dL 70 - 99 mg/dL [place] Interpretation and review of laboratory results Abnormal [place] Potassium [Moles/Vol] 3.9 mmol/L 3.7 - 5.3 mmol/L [place] Protein [Mass/Vol] 7.1 g/dL 6.4 - 8.3 g/dL [place] Sodium [Moles/Vol] 139 mmol/L 135 - 144 mmol/L [place] Urea nitrogen [Mass/Vol] 22 mg/dL High 6 - 20 mg/dL [place] EKG 12 Leadon 07-18-2020 Atrial Rate 58 BPM [place] P Curtiss 45 degrees [place] P-R Interval 138 ms [place], [place] Q-T Interval 478 ms [place] QRS Duration 74 ms [place] QTc Calculation (Bazett) 469 ms [place] R Curtiss 49 degrees [facility], [place] T Curtiss 129 degrees [place] Ventricular Rate 58 BPM [place] Sinus bradycardia T wave abnormality, consider lateral ischemia Prolonged QT Abnormal ECG When compared with ECG of 14-JUN-2019 10:26, Nonspecific T wave abnormality has replaced inverted T waves in Inferior leads T wave inversion less evident in Anterior leads Confirmed by JW KAY ([id number]) on 07/18/2020 11:37:03 AM [place] Mauri, Mhpn Incoming E kg Results From [email or web address] - 07/18/2020 11:37 AM EDT Sinus bradycardia T wave abnormality, consider lateral ischemia Prolonged QT Abnormal ECG When compared with ECG of 14-JUN-2019 10:26, Nonspecific T wave abnormality has replaced inverted T waves in Inferior leads T wave inversion less evident in Anterior leads Confirmed by JW KAY ([id number]) on 07/18/2020 11:37:03 AM [place] Lipaseon 07-18-2020 Lipase [Catalytic activity/Vol] 30 U/L 13 - 60 U/L [place] Metabolic Panelon 07-18-2020 GFR/1.73 sq M predicted among non-blacks MDRD (S/P/Bld) [Vol rate/Area] [place] Comment on above: Stage 1: Some [...] body mass. Additional eGFR calculator available at: http://www.[employer]_crcl_2012.htm Microscopic Urinalysison Amorphous, UA NOT REPORTED None [place], [place] Bacteria, UA NOT REPORTED None [place] Casts UA NOT REPORTED /LPF [place] Crystals, UA NOT REPORTED None /HPF [place] Epithelial Cells UA 0 TO 2 [place] Mucus, UA NOT REPORTED None [place] Other Observations UA NOT REPORTED NOT REQ. [place] RBC (U) [#/Vol] None [place], [place] Renal Epithelial, UA NOT REPORTED 0 /HPF [place] Trichomonas, UA NOT REPORTED None [facility] [place], [place] WBC, UA 0 TO 2 [place] Yeast, UA NOT REPORTED None [place] - [place] Troponinon 07-18-2020 Troponin I.cardiac [Mass/Vol] NOT REPORTED [place] Troponin T.cardiac [Mass/Vol] NOT REPORTED <0.03 ng/mL [place] Troponin, High Sensitivity 18 ng/L 0 - 22 ng/L [place] Comment on above: High Sensitivity Troponin values cannot be compared with other Troponin methodologies. Patients with high levels of Biotin oral intake (i.e >5mg/day) may have falsely decreased Troponin levels. Samples collected within 8 hours of biotin intake may require additional information for diagnosis. Troponin I.cardiac [Mass/Vol] NOT REPORTED [place] Troponin T.cardiac [Mass/Vol] NOT REPORTED <0.03 ng/mL [place] Troponin, High Sensitivity 21 ng/L 0 - 22 ng/L [place] Comment on above: High Sensitivity Troponin values cannot be compared with other Troponin methodologies. Patients with high levels of Biotin oral intake (i.e >5mg/day) may have falsely decreased Troponin levels. Samples collected within 8 hours of biotin intake may require additional information for diagnosis. Urinalysis Reflex to Culture on 07-18-2020 Bilirubin Urine Negative NEGATIVE [place], [place] Color, UA YELLOW YELLOW [place] Glucose, Ur Negative NEGATIVE [place] Interpretation and review of laboratory results Abnormal [place] Ketones Ql (U) 1+ Abnormal NEGATIVE [place] Leukocyte esterase Test strip Ql (U) Negative NEGATIVE [place] Nitrite, Urine Negative NEGATIVE [place] pH, UA 7.0 [place] Protein (U) [Mass/Vol] Negative NEGATIVE [place] Specific [place], UA 1.020 [place] Turbidity UA CLEAR CLEAR [place] Urinalysis Comments NOT REPORTED [place] Urine Hgb Negative NEGATIVE [place] Urobilinogen, Urine Normal Normal [place] XR CHEST (SINGLE VIEW FRONTA L)on 07-18-2020 Mauri, Mhpn Incoming R adiant Results From [facility] - 07/18/2020 8:54 AM EDT EXAMINATION: ONE XRAY VIEW OF THE CHEST 07/18/2020 8:44 am COMPARISON: June 14, 2019 HISTORY: ORDERING SYSTEM PROVIDED HISTORY: epig pain TECHNOLOGIST PROVIDED HISTORY: epig pain FINDINGS: Is no evidence of focal infiltrate, effusion, pneumothorax. Heart mediastinum appear normal. Visualized bony thorax shows no acute abnormality. IMPRESSION: No acute findings of the chest, stable when compared to previous. [place] EXAMINATION: ONE XRA Y VIEW OF THE CHEST 07/18/2020 8:44 am COMPARISON: June 14, 2019 HISTORY: ORDERING SYSTEM PROVIDED HISTORY: epig pain TECHNOLOGIST PROVIDED HISTORY: epig pain FINDINGS: Is no evidence of focal infiltrate, effusion, pneumothorax. Heart mediastinum appear normal. Visualized bony thorax shows no acute abnormality. [place] No acute findings of the chest, stable when compared to previous. [place] CBC Auto Differentialon 09-0 Basophils (Bld) [#/Vol] 0.05 10*3/uL [place] Basophils/100 WBC (Bld) 1 % 0 - 2 % [place] Differential Type NOT REPORTED [place] Eosinophils (Bld) [#/Vol] 10*3/uL [place] Eosinophils/100 WBC (Bld) 0 % Low 1 - 4 % [place] Erythrocyte distribution width (RBC) [Ratio] 12.9 % 11.8 - 14.4 % [place] Hematocrit (Bld) [Volume fraction] 45.7 % 40.7 - 50.3 % [place] Hemoglobin (Bld) [Mass/Vol] 15.5 g/dL 13 - 17 g/dL [place] Immature granulocytes (Bld) [#/Vol] 10*3/uL [place] Immature granulocytes (Bld) [#/Vol] 0 % 0 [place] Interpretation and review of laboratory results Abnormal [place] Lymphocytes (Bld) [#/Vol] 1.83 10*3/uL [place] Lymphocytes/100 WBC (Bld) 19 % Low 24 - 43 % [place] MCH (RBC) [Entitic mass] 31.1 pg 25.2 - 33.5 pg [place] MCHC (RBC) [Mass/Vol] 33.9 g/dL 28.4 - 34.8 g/dL [place] MCV (RBC) [Entitic vol] 91.6 fL 82.6 - 102.9 fL [place] Monocytes (Bld) [#/Vol] 0.86 10*3/uL [place] Monocytes/100 WBC (Bld) 9 % 3 - 12 % [place] Platelet mean volume (Bld) [Entitic vol] 9.7 fL 8.1 - 13.5 fL [place] Platelets (Bld) [#/Vol] 195 10*3/uL [place] Platelets (Bld) [#/Vol] NOT REPORTED [place] RBC (Bld) [#/Vol] 4.99 10*6/uL 4.21 - 5.77 m/uL [place] RBC morphology finding Nom (Bld) NOT REPORTED [place] Segmented neutrophils/100 WBC (Bld) 71 % High 36 - 65 % [place] Segs Absolute 7.08 [place] WBC (Bld) [#/Vol] 9.9 10*3/uL [place] WBC (Bld) [#/Vol] 0.0 10*3/uL 0.0 per 100 WBC [place] WBC Morphology NOT REPORTED [place] Comprehensive Metabolic Pane l w/ Reflex to MGon 06-14-2019 Albumin [Mass/Vol] 4.4 g/dL 3.5 - 5.2 g/dL [place] Albumin/Globulin [Mass ratio] 1.2 {ratio} [place] ALP [Catalytic activity/Vol] 77 U/L 40 - 129 U/L [place] ALT [Catalytic activity/Vol] 19 U/L 5 - 41 U/L [place] Anion gap [Moles/Vol] 15 mmol/L 9 - 17 mmol/L [place] AST [Catalytic activity/Vol] 22 U/L <40 [place] Bilirubin Ql (U) 0.61 mg/dL 0.3 - 1.2 mg/dL [place] Bun/Cre Ratio 23 High [place] Calcium [Mass/Vol] 10.0 mg/dL 8.6 - 10. 4 mg/dL [place] Chloride [Moles/Vol] 98 mmol/L 98 - 10 7 mmol/L [place] CO2 [Moles/Vol] 24 mmol/L 20 - 31 mmol/L [place] Creatinine [Mass/Vol] 0.82 mg/dL 0.7 - 1.2 mg/dL [place] GFR >60 >60 mL/min [place] GFR Non- >60 >60 mL/min [place] Glucose [Mass/Vol] 98 mg/dL 70 - 99 mg/dL [place] Interpretation and review of laboratory results Abnormal [place] Potassium [Moles/Vol] 4.0 mmol/L 3.7 - 5.3 mmol/L [place] Protein [Mass/Vol] 8.2 g/dL 6.4 - 8.3 g/dL [place] Sodium [Moles/Vol] 137 mmol/L 135 - 144 mmol/L [place] Urea nitrogen [Mass/Vol] 19 mg/dL 6 - 20 mg/dL [place] D-Dimer, Quantitativeon D-Dimer, Quant 0.42 [place] Comment on above: Elevated levels of [...] activity/Vol] 37 U/L 13 - 60 U/L [place] Metabolic Panelon 06-14-2019 GFR/1.73 sq M predicted among non-blacks MDRD (S/P/Bld) [Vol rate/Area] [place] Comment on above: Average GFR for 50-5 9 years old: 93 mL/min/1.73sq m Chronic Kidney Disease: <60 mL/min/1.73sq m Kidney failure: <15 mL/min/1.73sq m eGFR calculated using average adult body mass. Additional eGFR calculator available at: http://www.[employer]/multiple_crcl_2012.htm Stage 1: Some kidney damage normal GFR Stage 2: Mild kidney damage GFR 60-89 Stage 3: Moderate kidney damage GFR 30-59 Stage 4: Severe kidney damage GFR 15-29 Stage 5: Severe kidney damage GFR <15 ESRD - chronic treatment by dialysis or transplant Troponinon 06-14-2019 Troponin I.cardiac [Mass/Vol] [place] Comment on above: Reference Range: <0.03 [...] diagnosis. Troponin T.cardiac [Mass/Vol] ug/L <0.03 ng/mL [place] Comment on above: Troponin T results c annot be compared to Troponin-I results. Troponin, High Sensitivity NOT REPORTED 0 - 22 ng/L [place] Troponin I.cardiac [Mass/Vol] [place] Comment on above: Reference Range: <0.03 [...] diagnosis. Troponin T.cardiac [Mass/Vol] ug/L <0.03 ng/mL [place] Comment on above: Troponin T results c annot be compared to Troponin-I results. Troponin, High Sensitivity NOT REPORTED 0 - 22 ng/L [place] APTTon 01-13-2018 aPTT 24.4 s Normal 20.5-30.5 [facility] Comment on above: Result Comment: [facility] [place], [place] [id number] [phone] Performed By: #### C BC, PTT, TROPI, GLYHGB ####[employer] [place] [address] Basic Metabolic Profon 01-13 (cont.) Normal [facility] Comment on above: Result Comment: Aver age GFR for 50-59 years old: 93 mL/min/1.73sq mChronic Kidney Disease: <60 mL/min/1.73sq mKidney failure: <15 mL/min/1.73sq meGFR calculated using average adult body mass. Additional eGFR calculator available at:http://www.[employer]/multiple_crcl_2012.htmB[facility]win Park [facility] [address] [place] [address] Performed By: #### C BC, PTT, TROPI, GLYHGB ####[address] [address] Anion gap 9 mmol/L Normal 9-17 [facility] Comment on above: Performed By: #### C BC, PTT, TROPI, GLYHGB ####[address] [address] Calcium 9.3 mg/dL Normal 8.6-10.4 [facility] Comment on above: Performed By: #### C BC, PTT, TROPI, GLYHGB ####[address] [address] Chloride 102 mmol/L Normal 98-107 [facility] Comment on above: Performed By: #### C BC, PTT, TROPI, GLYHGB ####[address] [address] CO2 24 mmol/L Normal 20-31 [facility] Comment on above: Performed By: #### C BC, PTT, TROPI, GLYHGB ####[address] [address] Creatinine 0.75 mg/dL Normal 0.70-1.20 [facility] Comment on above: Performed By: #### C BC, PTT, TROPI, GLYHGB ####[facility] [place] [address] eGFR (non-black) mL/min/{1.73_m2} Normal >60 [facility] Comment on above: Performed By: #### C BC, PTT, TROPI, GLYHGB ####[address] [address] Glucose mass conc 104 mg/dL High 70-99 [facility] Comment on above: Performed By: #### C BC, PTT, TROPI, GLYHGB ####[address] [address] Potassium molar conc 5.0 mmol/L Normal 3.7-5.[address] [facility] Comment on above: Result Comment: TEST CONFIRMED Performed By: #### C BC, PTT, TROPI, GLYHGB ####[address] [address] Sodium 135 mmol/L Normal 135-144 [facility] Comment on above: Performed By: #### C BC, PTT, TROPI, GLYHGB ####[address] [address] Urea nitrogen 12 mg/dL Normal 6-20 [facility] Comment on above: Performed By: #### C BC, PTT, TROPI, GLYHGB ####[address] [address] BUN/CRE Ratio NOT REPORTED Normal 9-20 [facility] Comment on above: Performed By: #### C BC, PTT, TROPI, GLYHGB ####[address] [address] Staging: NOT REPORTED Normal [facility] Comment on above: Performed By: #### C BC, PTT, TROPI, GLYHGB ####[facility] [address] [place] [address], [place] [address] (cont.) Normal [facility] Comment on above: Result Comment: Aver age GFR for 50-59 years old: 93 mL/min/1.73sq mChronic Kidney Disease: <60 mL/min/1.73sq mKidney failure: <15 mL/min/1.73sq meGFR calculated using average adult body mass. Additional eGFR calculator available at:http://www.[employer].Dwell[employer]/multiple_crcl_2012.htmBaldwin Park Hospital [address] [place] [address] Performed By: #### C BC, PTT, TROPI, GLYHGB ####[address] [address] Anion gap 11 mmol/L Normal 9-17 [facility] Comment on above: Performed By: #### C BC, PTT, TROPI, GLYHGB ####[address] [address] Calcium 8.6 mg/dL Normal 8.6-10.4 [facility] Comment on above: Performed By: #### C BC, PTT, TROPI, GLYHGB ####[address] [address] Chloride 100 mmol/L Normal 98-107 [facility] Comment on above: Performed By: #### C BC, PTT, TROPI, GLYHGB ####[address] [place] [address] CO2 24 mmol/L Normal 20-31 [facility] Comment on above: Performed By: #### C BC, PTT, TROPI, GLYHGB ####[address] [address] Creatinine 0.64 mg/dL Low 0.70-1.20 [facility] Comment on above: Performed By: #### C BC, PTT, TROPI, GLYHGB ####[facility] [place] [address] eGFR (non-black) mL/min/{1.73_m2} Normal >60 [facility] Comment on above: Performed By: #### C BC, PTT, TROPI, GLYHGB ####[address] [address] Glucose mass conc 102 mg/dL High 70-99 [facility] Comment on above: Performed By: #### C BC, PTT, TROPI, GLYHGB ####[address] [address] Potassium molar conc 3.5 mmol/L Low 3.7-5.[address] [facility] Comment on above: Performed By: #### C BC, PTT, TROPI, GLYHGB ####[address] [address] Sodium 135 mmol/L Normal 135-144 [facility] Comment on above: Performed By: #### C BC, PTT, TROPI, GLYHGB ####[address] [address] Urea nitrogen 12 mg/dL Normal 6-20 [facility] Comment on above: Performed By: #### C BC, PTT, TROPI, GLYHGB ####[address] [address] BUN/CRE Ratio NOT REPORTED Normal 9-20 [facility] Comment on above: Performed By: #### C BC, PTT, TROPI, GLYHGB ####[address] [address] Staging: NOT REPORTED Normal [facility] Comment on above: Performed By: #### C BC, PTT, TROPI, GLYHGB ####[address] [address] Discharge Summaryon 01-14-20 18 HIM IP Note OR Chisel Trimmer Normal [facility] Magnesiumon 01-13-2018 Magnesium 2.2 mg/dL Normal 1.6-2.6 [facility] Comment on above: Result Comment: [facility] [address] [place] [address] Performed By: #### C BC, PTT, TROPI, GLYHGB ####[facility] [address] [place] [address] Magnesium 2.1 mg/dL Normal 1.6-2.6 [facility] Comment on above: Result Comment: [facility] [address] [place] [address] Performed By: #### C BC, PTT, TROPI, GLYHGB ####[address] [address] Plan of Careon 01-13-2018 HIM IP Note OR Chisel Trimmer Normal [facility] Progress Noteon 01-13-2018 HIM IP Note OR Chisel Trimmer Normal [facility] HIM IP Note OR Chisel Trimmer Normal [facility] HIM IP Note OR Chisel Trimmer Normal [facility] APTTon 01-12-2018 aPTT 47.5 s High 20.5-30.5 [facility] Comment on above: Result Comment: [facility] [address] [place] [address] Performed By: #### P TT ####[address] [address] aPTT 48.3 s High 20.5-30.5 [facility] Comment on above: Result Comment: [facility] [address] [place] [address] Performed By: #### P LT, PTT ####[address] [address] aPTT 50.8 s High 20.5-30.5 [facility] Comment on above: Result Comment: [facility] [address] [place] [address] Performed By: #### P TT ####[facility] [address] [address] Platelet Counton 01-12-2018 Platelets 154 10*3/uL Normal 138-453 [facility] Comment on above: Result Comment: [facility] [address] [place] [address] Performed By: #### P LT, PTT ####[address] [address] Progress Noteon 01-12-2018 HIM IP Note OR Chisel Trimmer Normal [facility] APTTon 01-11-2018 aPTT 38.0 s High 20.5-30.5 [facility] Comment on above: Result Comment: [facility] [address] [place] [address] Performed By: #### P TT ####[address] [address] aPTT 35.3 s High 20.5-30.5 [facility] Comment on above: Result Comment: [facility] [address] [place] [address] Performed By: #### P TT ####[address] [address] aPTT 30.5 s Normal 20.5-30.5 [facility] Comment on above: Result Comment: [facility] [address] [place] [address] Performed By: #### P TT ####[address] [address] CBCon 01-11-2018 Erythrocyte distribution width Auto Ratio (RBC) 14.0 % Normal 11.8-14.4 [facility] Comment on above: Performed By: #### C BC, CP, LIPR, MG ####[address] [address] Erythrocytes (RBC) 0.0 per 100 WBC Normal 0.0 [facility] Comment on above: Result Comment: [address] [address] Performed By: #### C BC, CP, LIPR, MG ####[address] [address] Erythrocytes (RBC) 4.36 10*6/uL Normal 4.21-5.[address] [facility] Comment on above: Performed By: #### C BC, CP, LIPR, MG ####[address] [address] Hematocrit (HCT) 40.6 % Low 40.7-50.3 [facility] Comment on above: Performed By: #### C BC, CP, LIPR, MG ####[address] [address] Hemoglobin mass conc (Bld) 13.3 g/dL Normal 13.0-17.0 [facility] Comment on above: Performed By: #### C BC, CP, LIPR, MG ####[address] [address] MCH 30.5 pg Normal 25.2-33.5 [facility] Comment on above: Performed By: #### C BC, CP, LIPR, MG ####[address] [address] MCHC mass conc (RBC) 32.8 g/dL Normal 28.4-34.[address] [facility] Comment on above: Performed By: #### C BC, CP, LIPR, MG ####[address] [place] [address] MCV 93.1 fL Normal 82.6-102.9 [facility] Comment on above: Performed By: #### C BC, CP, LIPR, MG ####[facility] [place] [address] Platelet mean volume (PMV) 10.1 fL Normal 8.1-13.5 [facility] Comment on above: Performed By: #### C BC, CP, LIPR, MG ####[address] [place] [address] Platelets 153 10*3/uL Normal 138-453 [facility] Comment on above: Performed By: #### C BC, CP, LIPR, MG ####[address] [address] WBC (Leukocytes) 9.5 10*3/uL Normal 3.5-11.3 [facility] Comment on above: Performed By: #### C BC, CP, LIPR, MG ####[address] [place] [address] Comp Metabolic Profon 2017 (cont.) Normal [facility] Comment on above: Result Comment: Aver age GFR for 50-59 years old: 93 mL/min/1.73sq mChronic Kidney Disease: <60 mL/min/1.73sq mKidney failure: <15 mL/min/1.73sq meGFR calculated using average adult body mass. Additional eGFR calculator available at:http://www.[employer]flick.com/multiple_crcl_2012.htmBaldwin Park Hospital [address] [place] [address] Performed By: #### C BC, CP, LIPR, MG ####[facility] [place] [address] Alanine aminotransferase (ALT) 17 U/L Normal 5-41 [facility] Comment on above: Performed By: #### C BC, CP, LIPR, MG ####[facility] [address] [place] [address] Albumin 3.6 g/dL Normal 3.5-5.2 [facility] Comment on above: Performed By: #### C BC, CP, LIPR, MG ####[address] [address] Albumin/Globulin Ratio 1.3 {ratio} Normal 1.0-2.5 [facility] Comment on above: Performed By: #### C BC, CP, LIPR, MG ####[facility] [address] [place] [address] Alkaline Phos 76 U/L Normal 40-129 [facility] Comment on above: Performed By: #### C BC, CP, LIPR, MG ####[facility] [address] [place] [address] Anion gap 14 mmol/L Normal 9-17 [facility] Comment on above: Performed By: #### C BC, CP, LIPR, MG ####[facility] [address] [place] [address] Aspartate aminotransferase (AST) 15 U/L Normal <40 [facility] Comment on above: Performed By: #### C BC, CP, LIPR, MG ####[facility] [address] [place] [address] Bilirubin Ql (U) 1.13 mg/dL Normal 0.3-1.2 [facility] Comment on above: Performed By: #### C BC, CP, LIPR, MG ####[facility] [address] [place] [address] Calcium 8.4 mg/dL Low 8.6-10.4 [facility] Comment on above: Performed By: #### C BC, CP, LIPR, MG ####[facility] [address] [place] [address] Chloride 97 mmol/L Low 98-107 [facility] Comment on above: Performed By: #### C BC, CP, LIPR, MG ####[facility] [place] [address] CO2 23 mmol/L Normal 20-31 [facility] Comment on above: Performed By: #### C BC, CP, LIPR, MG ####[facility] [address] [place] [address] Creatinine 0.63 mg/dL Low 0.70-1.20 [facility] Comment on above: Performed By: #### C BC, CP, LIPR, MG ####[address] [address] eGFR (non-black) mL/min/{1.73_m2} Normal >60 [facility] Comment on above: Performed By: #### C BC, CP, LIPR, MG ####[facility] [address] [place] [address] Glucose mass conc 107 mg/dL High 70-99 [facility] Comment on above: Performed By: #### C BC, CP, LIPR, MG ####[facility] [address] [place] [address] Potassium molar conc 3.6 mmol/L Low 3.7-5.[address] [facility] Comment on above: Performed By: #### C BC, CP, LIPR, MG ####[facility] [address] [place] [address] Protein 6.4 g/dL Normal 6.4-8.3 [facility] Comment on above: Performed By: #### C BC, CP, LIPR, MG ####[facility] [address] [place] [address] Sodium 134 mmol/L Low 135-144 [facility] Comment on above: Performed By: #### C BC, CP, LIPR, MG ####[facility] [address] [place] [address] Urea nitrogen 19 mg/dL Normal - [facility] Comment on above: Performed By: #### C BC, CP, LIPR, MG ####[facility] [address] [place] [address] BUN/CRE Ratio NOT REPORTED Normal - [facility] Comment on above: Performed By: #### C BC, CP, LIPR, MG ####[facility] [address] [place] [address] Staging: NOT REPORTED Normal [facility] Comment on above: Performed By: #### C BC, CP, LIPR, MG ####[facility] [address] [place] [address] Hemoglobin A1Con 01-11-2018 Glucose mass conc 114 mg/dL Normal [facility] Comment on above: Result Comment: The ADA and AACC recommend providing the estimated average glucose result to permit better patient understanding of their HBA1c result.[address] [address] Performed By: #### C BC, PTT, TROPI, GLYHGB ####[facility] [address] [place] [address] Hemoglobin A1c/Hemoglobin.total mass fraction (Bld) 5.6 % Normal 4.0-6.0 [facility] Comment on above: Performed By: #### C BC, PTT, TROPI, GLYHGB ####[facility] [address] [place] [address] Lipid Profileon 01-11-2018 Cholesterol 123 mg/dL Normal <200 [facility] Comment on above: Result Comment: Chol esterol Guidelines: <200 Desirable 200-240 Borderline >240 Undesirable Performed By: #### C BC, CP, LIPR, MG ####[facility] [address] [place] [address] Cholesterol to HDL Ratio 2.0 {ratio} Normal <5 [facility] Comment on above: Performed By: #### C BC, CP, LIPR, MG ####[facility] [address] [place] [address] HDL Cholesterol 63 mg/dL Normal >40 [facility] Comment on above: Result Comment: HDL Guidelines: <40 Undesirable 40-59 Borderline >59 Desirable Performed By: #### C BC, CP, LIPR, MG ####[address] [address] LDL Cholesterol 38 mg/dL Normal 0-130 [facility] Comment on above: Result Comment: LDL Guidelines: <100 Desirable 100-129 Near to/above Desirable 130-159 Borderline >159 UndesirableDirect (measured) LDL and calculated LDL are not interchangeable tests. Performed By: #### C BC, CP, LIPR, MG ####[facility] [address] [place] [address] Triglyceride 111 mg/dL Normal <150 [facility] Comment on above: Result Comment: Trig lyceride Guidelines: <150 Desirable 150- 199 Borderline 200-499 High >499 Very high Based on AHA Guidelines for fasting triglyceride, July 2012.[facility] [address] [place] [address] Performed By: #### C BC, CP, LIPR, MG ####[facility] [address] [place] [address] Cholesterol in VLDL mass conc NOT REPORTED Normal 1-30 [facility] Comment on above: Performed By: #### C BC, CP, LIPR, MG ####[employer] [place] [address] Magnesiumon 01-11-2018 Magnesium 2.1 mg/dL Normal 1.6-2.6 [facility] Comment on above: Result Comment: [facility] [address] [place] [address] Performed By: #### C BC, CP, LIPR, MG ####[facility] [address] [place] [address] Plan of Careon 01-11-2018 HIM IP Note OR Chisel Trimmer Normal [facility] HIM IP Note OR Chisel Trimmer Normal [facility] Progress Noteon 01-11-2018 HIM IP Note OR Chisel Trimmer Normal [facility] Troponinon 01-11-2018 Troponin I.cardiac mass conc Normal [facility] Comment on [...] biotin intake may require additional information for diagnosis.[employer] [address] [place] [address] Performed By: #### T ROPI ####[address] [address] Troponin T.cardiac mass conc ug/L Normal <0.03 [facility] Comment on above: Result Comment: Trop onin T results cannot be compared to Troponin-I results. Performed By: #### T ROPI ####[address] [address] APTTon 01-10-2018 aPTT 23.8 s Normal 20.5-30.5 [facility] Comment on above: Result Comment: [facility] [address] [place] [address] Performed By: #### C BC, PTT, TROPI, GLYHGB ####[address] [address] CBCon 01-10-2018 Erythrocyte distribution width Auto Ratio (RBC) 14.2 % Normal 11.8-14.4 [facility] Comment on above: Performed By: #### C BC, PTT, TROPI, GLYHGB ####[address] [address] Erythrocytes (RBC) 4.47 10*6/uL Normal 4.21-5.[address] [facility] Comment on above: Performed By: #### C BC, PTT, TROPI, GLYHGB ####[address] [address] Erythrocytes (RBC) 0.0 per 100 WBC Normal 0.0 M [place] [facility] Comment on above: Result Comment: [id number] [place] [address] Performed By: #### C BC, PTT, TROPI, GLYHGB ####[facility] [place] [address] Hematocrit (HCT) 41.3 % Normal 40.7-50.3 [facility] Comment on above: Performed By: #### C BC, PTT, TROPI, GLYHGB ####[address] [address] Hemoglobin mass conc (Bld) 13.5 g/dL Normal 13.0-17.0 [facility] Comment on above: Performed By: #### C BC, PTT, TROPI, GLYHGB ####[address] [address] MCH 30.2 pg Normal 25.2-33.5 [facility] Comment on above: Performed By: #### C BC, PTT, TROPI, GLYHGB ####[address] [address] MCHC mass conc (RBC) 32.7 g/dL Normal 28.4-34.[address] [facility] Comment on above: Performed By: #### C BC, PTT, TROPI, GLYHGB ####[facility] AvilaAs[address]uuuty[address] [place] [address] MCV 92.4 fL Normal 82.6-102.9 [facility] Comment on above: Performed By: #### C BC, PTT, TROPI, GLYHGB ####[facility] [address] [place] [address] Platelet mean volume (PMV) 10.1 fL Normal 8.1-13.5 [facility] Comment on above: Performed By: #### C BC, PTT, TROPI, GLYHGB ####[facility] [place] [address] Platelets 160 10*3/uL Normal 138-453 [facility] Comment on above: Performed By: #### C BC, PTT, TROPI, GLYHGB ####[facility] [place] [address] WBC (Leukocytes) 6.8 10*3/uL Normal 3.5-11.3 [facility] Comment on above: Performed By: #### C BC, PTT, TROPI, GLYHGB ####[facility] [address] [place] [address] History and Physicalon 01-10 HIM IP Note OR Chisel Trimmer Normal [facility] Plan of Careon 01-10-2018 HIM IP Note OR Chisel Trimmer Normal [facility] Progress Noteon 01-10-2018 HIM IP Note OR Chisel Trimmer Normal [facility] Troponinon 01-10-2018 Troponin I.cardiac mass conc Normal [facility] Comment on [...] biotin intake may require additional information for diagnosis.[employer] [address] [place] [address] [id number] [phone] Performed By: #### C BC, PTT, TROPI, GLYHGB ####[employer] [place] [address] Troponin T.cardiac mass conc ug/L Normal <0.03 [facility] Comment on above: Result Comment: Trop onin T results cannot be compared to Troponin-I results. Performed By: #### C BC, PTT, TROPI, GLYHGB ####[employer] [place], [place] [id number] Vital Signs Date Time Vital Sign Value Performing Clinician Faci lity 2023 06:08-0500 SaO2% (BldA) [Mass fraction] 99 % Nadia Fitzpatrick MD Work Phone: [facility] [place] 2023 05:49-0500 Body temperature 100.09 [degF] Nadia Fitzpatrick MD Work Phone: [facility] [place] 2023 05:49-0500 Diastolic blood pressure 52 mm[Hg] Nadia Fitzpatrick MD Work Phone: [facility] [place] 2023 05:49-0500 Heart rate 89 /min Nadia Fitzpatrick MD Work Phone: [facility] [place] 2023 05:49-0500 Respiratory rate 18 /min Nadia Fitzpatrick MD Work Phone: [facility] [place] 2023 05:49-0500 Systolic blood pressure 151 mm[Hg] Nadia Fitzpatrick MD Work Phone: [facility] [place] 09-18-2023 13:40-0500 Diastolic blood pressure 68 mm[Hg] Shaheen Chappell MD Work Phone: [facility] 09-18-2023 13:40-0500 Heart rate 68 /min Shaheen Chappell MD Work Phone: [facility] 09-18-2023 13:40-0500 SaO2% (BldA) [Mass fraction] 97 % Shaheen Chappell MD Work Phone: [facility] 09-18-2023 13:40-0500 Systolic blood pressure 101 mm[Hg] Shaheen Chappell MD Work Phone: [facility] 09-18-2023 13:10-0500 Respiratory rate 16 /min Shaheen Chappell MD Work Phone: [facility] 09-18-2023 13:00-0500 Body temperature 97 [degF] Shaheen Chappell MD Work Phone: [facility] 09-18-2023 08:35-0500 Body height 167.6 cm Shaheen Chappell MD Work Phone: [facility] 09-18-2023 08:35-0500 Body mass index (BMI) [Ratio] 27.44 kg/m2 Shaheen Chappell MD Work Phone: [facility] 09-18-2023 08:35-0500 Body weight 77.11 kg Shaheen Chappell MD Work Phone: [facility] 08-14-2023 14:38-0500 Body height 167.6 cm Nikhil Mohr MD Work Phone: [facility] 08-14-2023 14:38-0500 Body mass index (BMI) [Ratio] 26.87 kg/m2 Nikhil Mohr MD Work Phone: [facility] 08-14-2023 14:38-0500 Body weight 75.52 kg Nikhil Mhor MD Work Phone: [facility] 08-14-2023 14:38-0500 Diastolic blood pressure 69 mm[Hg] Nihkil Mohr MD Work Phone: [facility] 08-14-2023 14:38-0500 Heart rate 72 /min Nikhil Mohr MD Work Phone: [facility] 08-14-2023 14:38-0500 SaO2% (BldA) [Mass fraction] 98 % Nikhil Mohr MD Work Phone: [facility] 08-14-2023 14:38-0500 Systolic blood pressure 102 mm[Hg] Nikhil Mohr MD Work Phone: [facility] 07-16-2023 13:41-0400 Body height 167.6 cm Jennie Hernandez MD Work Phone: [facility] 07-16-2023 13:41-0400 Body mass index (BMI) [Ratio] 27.11 kg/m2 Jennie Hernandez MD Work Phone: [facility] 07-16-2023 13:41-0400 Body weight 76.2 kg Jennie Hernandez MD Work Phone: [facility] 07-04-2023 09:34-0400 Body height 167.6 cm Jennie Hernandez MD Work Phone: [facility] 07-04-2023 09:34-0400 Body mass index (BMI) [Ratio] 27.12 kg/m2 Jennie Hernandez MD Work Phone: [facility] 07-04-2023 09:34-0400 Body weight 76.2 kg Jennie Hernandez MD Work Phone: [facility] 06-10-2023 10:18-0400 Body height 167.6 cm Jennie Hernandez MD Work Phone: [facility] 06-10-2023 10:18-0400 Body mass index (BMI) [Ratio] 27.12 kg/m2 Jennie Hernandez MD Work Phone: [facility] 06-10-2023 10:18-0400 Body weight 76.2 kg Jennie Hernandez MD Work Phone: [facility] 05-19-2023 09:07-0400 Body height 167.6 cm Jennie Hernandez MD Work Phone: [facility] 05-19-2023 09:07-0400 Body mass index (BMI) [Ratio] 27.12 kg/m2 Jennie Hernandez MD Work Phone: [facility] 05-19-2023 09:07-0400 Body weight 76.2 kg Jennie Hernandez MD Work Phone: [facility] 04-18-2023 12:33-0400 Body height 167.6 cm Jennie Hernandez MD Work Phone: [facility] 04-18-2023 12:33-0400 Body mass index (BMI) [Ratio] 26.63 kg/m2 Jennie Hernandez MD Work Phone: [facility] 04-18-2023 12:33-0400 Body weight 74.84 kg Jennie Hernandez MD Work Phone: [facility] 02-25-2023 08:48-0400 Body height 167.6 cm Jennie Hernandez MD Work Phone: [facility] 02-25-2023 08:48-0400 Body mass index (BMI) [Ratio] 26.63 kg/m2 Jennie Hernandez MD Work Phone: [facility] 02-25-2023 08:48-0400 Body weight 74.84 kg Jennie Hernandez MD Work Phone: [facility] 12-31-2022 13:46-0400 Body temperature 97.3 [degF] Rosa Garg DO Work Phone: [facility] 12-31-2022 13:46-0400 Diastolic blood pressure 71 mm[Hg] Rosa Garg DO Work Phone: [facility] 12-31-2022 13:46-0400 Heart rate 72 /min Rosa Garg DO Work Phone: [facility] 12-31-2022 13:46-0400 Respiratory rate 16 /min Rosa Garg DO [facility] Phone[facility] 12-31-2022 13:46-0400 SaO2% (BldA) [Mass fraction] 92 % Rosa Garg DO Work Phone: [facility] Clerk 12-31-2022 13:46-0400 Systolic blood pressure 102 mm[Hg] Rosa Garg DO Work Phone: [facility] Clerk 12-31-2022 02:40-0400 Body mass index (BMI) [Ratio] 25.34 kg/m2 Rosa Garg DO [facility] 12-31-2022 02:40-0400 Body weight 71.2 kg Rosa Garg DO Work Phone[facility] 12-30-2022 12:46-0400 Body height 167.6 cm Rosa Garg DO [facility] 05-31-2022 14:26-0400 Blood Pressure Location Julian DIAZ [facility] [place] 05-31-2022 14:26-0400 Diastolic blood pressure 60 mm[Hg] Julian DIAZ [facility] [place] 05-31-2022 14:26-0400 Heart rate 66 /min Julian DIAZ [facility] [place] 05-31-2022 14:26-0400 Respiratory rate 16 /min Julian DIAZ [facility] [place] 05-31-2022 14:26-0400 Systolic blood pressure 108 mm[Hg] Julian DIAZ [facility] [place] 03-09-2021 12:45-0400 Respiratory rate 16 /min Julian [facility]herty [facility] Work Phone: 03-09-2021 10:28-0400 Body height 167.6 cm Julian Dougherty MD [employer] Phone: 03-09-2021 10:28-0400 Body mass index (BMI) [Ratio] 25.5 kg/m2 Julian Dougherty MD [employer] Phone: 03-09-2021 10:28-0400 Body temperature 98.49 [degF] Julian Dougherty MD [employer] Phone: 03-09-2021 10:28-0400 Body weight 71.67 kg Julian Dougherty MD [employer] Phone: 03-09-2021 10:28-0400 Heart rate 79 /min Julian Dougherty MD [employer] Phone: 03-09-2021 10:28-0400 SaO2% (BldA) [Mass fraction] 97 % Julian Dougherty MD [employer] Phone: 07-18-2020 09:15-0400 Pulse Oximetry 97 % [facility] [place] 07-18-2020 08:30-0400 BP Diastolic 96 mm[Hg] [facility], [place] 07-18-2020 08:30-0400 BP Systolic 135 mm[Hg] [facility], [place] 07-18-2020 08:18-0400 Body Temperature 98.01 [degF] [facility], [place] 07-18-2020 08:18-0400 Pulse (Heart Rate) 84 /min [facility], [place] 07-18-2020 08:18-0400 Respiratory Rate 16 /min [facility], [place] 09-12-2019 02:36-0500 BP Diastolic 95 mm[Hg] [facility] , [place] 09-12-2019 02:36-0500 BP Systolic 138 mm[Hg] [facility] , [place] 09-12-2019 01:27-0500 Body Temperature 97.3 [degF] [facility] [place] 09-12-2019 01:27-0500 Pulse (Heart Rate) 86 /min [facility] [place] 09-12-2019 01:27-0500 Pulse Oximetry 97 % Justice Dewitt [place], [place] 09-12-2019 01:27-0500 Respiratory Rate 18 /min [facility] [place] 06-14-2019 12:44-0400 BP Diastolic 89 mm[Hg] [facility] [place] 06-14-2019 12:44-0400 BP Systolic 158 mm[Hg] Pablo Portilol [facility] , [place] 06-14-2019 12:44-0400 Pulse (Heart Rate) 68 /min [facility] [place] 06-14-2019 12:44-0400 Pulse Oximetry 95 % Pablo Portillo [facility] , [place] 06-14-2019 12:44-0400 Respiratory Rate 12 /min Pablo Portillo [facility], [place] 06-14-2019 10:15-0400 BMI (Body Mass Index) 24.53 kg/m2 Pablo Portillo [place], [place] 06-14-2019 10:15-0400 Body Temperature 98.01 [degF] Pablo Portillo [facility], [place] 06-14-2019 10:15-0400 Body weight 68.95 kg Pablo Portillo [place], [place] Encounters Encounter Date Encounter Type Care Provider Facility Start: 03-15-2024 End: 03-15-2024 ambulatory Mo Gongora MD Facility:[facility] Start: 02-11-2024 End: 02-11-2024 ambulatory [place] Start: 11-24-2023 End: 11-24-2023 ambulatory ROMARIO MAN Not Available Start: 2023 End: 2023 Emergency department patient visit NADIA FITZPATRICK [facility] Start: 2023 End: 2023 Emergency department patient visit Nadia Fitzpatrick MD Work Phone: [facility] ED Comment on above: Viral illness (Prima ry Dx) Start: 09-18-2023 End: 09-18-2023 ambulatory [facility] Start: 09-18-2023 End: 09-18-2023 Subsequent hospital visit by physician Shaheen Chappell MD Work Phone: 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); Hyperreflexia Start: 08-13-2023 End: 08-13-2023 ambulatory [facility] Start: 08-13-2023 End: 08-13-2023 Encounter for other preprocedural examination [facility] Start: 07-16-2023 ambulatory JENNIE HERNANDEZ [facility] Start: 07-16-2023 End: 07-16-2023 Subsequent hospital visit by physician Jennie Hernandez MD Work Phone: [facility] Procedure Images Comment on above: Arrived Start: 07-16-2023 End: 07-16-2023 Patient encounter procedure Jennie Hernandez MD Work Phone: [facility] Comment on above: 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); Pain of both sacroiliac joints Start: 07-04-2023 [facility] JNENIE HERNANDEZ [facility] Start: 07-04-2023 End: 07-04-2023 Office outpatient visit 15 minutes Jennie Hernandez MD Work Phone: [facility] Comment on above: 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); Pain of both sacroiliac joints; Polyneuropathy Start: 06-16-2023 End: 06-16-2023 ambulatory Mo Gongora MD Facility:[facility] Start: 06-10-2023 ambulatory JENNIE HERNANDEZ [facility] Start: 06-10-2023 End: 06-10-2023 Patient encounter procedure Jennie Hernandez MD Work Phone: [facility] Comment on above: Osteoarthritis of ri ght sacroiliac joint (Primary Dx); Pain of right sacroiliac joint; Polyneuropathy; Lower extremity numbness; Osteoarthritis of left sacroiliac joint; Pain of left sacroiliac joint; Lumbar spondylosis Start: 05-19-2023 ambulatory SELF SELF [facility] Start: 05-19-2023 End: 05-19-2023 Office outpatient visit 15 minutes Jennie Hernandez MD Work Phone: [facility] Comment on above: Osteoarthritis of le ft sacroiliac joint (Primary Dx); Pain of left sacroiliac joint; Lumbar spondylosis Start: 04-18-2023 ambulatory JENNIE HERNANDEZ [facility] Start: 04-18-2023 End: 04-18-2023 Patient encounter procedure Jennie Hernandez MD Work Phone: [facility] Comment on above: Osteoarthritis of le ft sacroiliac joint (Primary Dx) Start: 04-18-2023 End: 04-18-2023 Subsequent hospital visit by physician Jennie Hernandez MD Work Phone: [facility] Procedure Images Comment on above: Arrived Start: 04-15-2023 ambulatory JENNIE HERNANDEZ [facility] Start: 02-25-2023 ambulatory JENNIE HERNANDEZ [facility] Start: 02-25-2023 End: 02-25-2023 Office outpatient new 30 minutes Jennie Hernandez MD Work Phone: [facility] Comment on above: Osteoarthritis of le ft sacroiliac joint (Primary Dx); Lumbar spondylosis; Lower extremity numbness Start: 01-13-[address] ROMARIO MAN [facility] ity:[facility]1 Start: 01-08-2023 End: 01-09-[address] ROMARIO MAN Facility:[facility] Start: 12-30-2022 End: 12-31-2022 Evaluation and management of inpatient ROMARIO MAN [facility] Start: 12-30-2022 End: 12-31-2022 Evaluation and management of inpatient Rosa Garg Work Phone: [facility] Comment on above: Chest pain, [...] examination without abnormal findings DR ROMARIO MAN [facility] Start: 09-11-2022 End: 09-12-[address] ROMARIO MAN Facility:[facility] Start: 09-11-2022 End: 09-12-2022 Encounter for general adult medical examination without abnormal findings DR ROMARIO MAN Facility:[facility] Start: 08-22-2022 End: 08-22-[address] NELSON IBRAHIM . Facility: Start: 07-10-2022 End: 07-11-2022 [facility]ulatory [facility] Start: 07-10-2022 End: 07-10-2022 Patient encounter procedure Julian DIAZ [facility] Start: 06-26-2022 End: 06-27-2022 ambulatory Julian DIAZ Facility::[id number] Start: 06-24-2022 Encounter for preprocedural laboratory examination DR JULIAN DIAZ . [facility] Start: 06-22-2022 End: 06-23-[address] JULIAN DIAZ . Facility:[facility] Start: 06-22-2022 End: 06-23-2022 Encounter for preprocedural laboratory examination DR JULIAN DIAZ . Facility:[facility] Start: 05-31-2022 End: 06-01-2022 ambulatory ROMARIO MAN PROVIDER Facility:[facility] Start: 05-31-2022 End: 05-31-2022 Patient encounter procedure Julian DIAZ General Surgery [facility] Start: 05-30-2022 End: 05-31-[address] NELSON IBRAHIM . Facility:[facility] Start: 05-15-2022 ambulatory Julian DIAZ Facility :[facility] Start: 04-30-2022 End: 04-30-[address] NELSON IBRAHIM . Facility:[facility] Start: 04-23-2022 End: 04-23-[address] NELSON IBRAHIM . Facility:[facility] Start: 04-03-2022 End: 04-04-2022 ambulatory JULIANE MASSEY . Facility:[facility] Start: 03-25-2022 End: 03-25-2022 Subsequent hospital visit by physician Romario Man MD Work Phone: [facility] Laboratory Comment on above: Chronic fatigue Start: 03-12-2022 End: 03-13-[address] ROMARIO MAN Facility:[facility] Start: 03-12-2022 End: 03-12-[address] ROMARIO MAN Facility:[facility] Start: 02-21-2022 End: 02-22-[address] NELSON IBRAHIM . Facility:[facility] Start: 02-05-2022 End: 02-05-[address] ROMARIO MAN Facility:[facility] Start: 03-09-2021 End: 03-09-2021 Emergency department patient visit Julian Dougherty MD [facility] ED Comment on above: Acute gout of right wrist, unspecified cause (Primary Dx) Start: 08-17-2020 End: 08-17-2020 Subsequent hospital visit by physician [facility] Cardiology Stress Room [facility] Stress Lab Comment on above: Arrived Start: 08-16-2020 End: 08-18-2020 Subsequent hospital visit by physician [facility] Vascular Imaging Room [facility] Vascular Lab Comment on above: Other specified lisette pheral vascular diseases (HCC) Start: 08-16-2020 End: 08-16-2020 Subsequent hospital visit by physician [facility] Cardiology Stress Room [facility] Stress Lab Comment on above: Arrived Start: 07-18-2020 End: 07-18-2020 Emergency department patient visit Sebastian Carmichael Work Phone: [facility] ED Comment on above: Abdominal pain, epig astric (Primary Dx) Start: 09-12-2019 End: 09-12-2019 Emergency department patient visit Justice Shaver Work Phone: [facility] ED Comment on above: Trapezius muscle spa sm (Primary Dx) Start: 06-14-2019 End: 06-14-2019 Emergency department patient visit Pablo Portillo Work Phone: [facility] ED Comment on above: Chronic pain of both shoulders (Primary Dx); Neck pain, chronic; Nonspecific chest pain Start: 01-29-2018 End: 01-30-2018 Ambulatory DEFAULT PHYSICIAN Facility:[facility] Start: 01-20-2018 End: 01-21-2018 Ambulatory DEFAULT PHYSICIAN Facility:[facility] Start: 01-10-2018 End: 01-13-2018 Evaluation and management of inpatient [facility] Procedures Date Procedure Procedure Detail Performing [...] Start: 12-31-2022 Assay of troponin [facility] Start: 12-31-2022 BASIC METABOLIC PANEL W/ REFLEX TO MG FOR LOW K [facility] Work Phone: Start: 12-31-2022 Lipid panel [facility] Work Phone: Start: 12-31-2022 End: 12-31-2022 Ecg routine ecg w/least 12 lds w/i&r [facility] Work [facility]: Start: 12-30-2022 Echo tthrc r-t 2d w/wom-mode compl spec&colr d [facility] Work [facility]: Start: 12-30-2022 RESPIRATORY PANEL, MOLECULAR, WITH COVID-19 [facility] Work [facility]: Start: 12-30-2022 Rhythm ecg [...] on above: Performed By: #### HGBHCT #### [facility] [address] [place] [address] Dr. Raimundo Estrada Start: 06-26-2022 Colonoscopy Julian [...] SIGNS SHOWKAT AHMAD Start: 01-12-2018 DIAGNOSTIC CARDIAC REFUSE COLLECTOR SUPERVISOR PROCEDURE SHOWKAT AHMAD Start: 01-12-2018 APTT SHOWKAT [...] 12-LEAD SOREN AHMAD Start: 01-10-2018 [facility] Start: 01-10-2018 INITIATE OXYGEN THERAPY PROTOCOL [facility] Start: 01-10-2018 INTAKE AND OUTPUT SHOWLIOR SPRAGUED Start: 01-10-2018 NOTIFY PHYSICIAN (SPECIFY) SOREN SPRAGUED Start: 01-10-2018 PLACE INTERMITTENT PNEUMATIC COMPRESSION DEVICE [facility] Start: 01-10-2018 PULSE OXIMETRY SPOT CHECK [facility] Start: 01-10-2018 TELEMETRY MONITORING SHOWLIOR SPRAGUED Start: 01-10-2018 VITAL SIGNS [facility] Start: 01-10-2018 PATIENT STATUS (DIRECT) [facility] Start: 10-06-2017 Cardiac catheterization Julian DIAZ Start: 10-06-2005 Cardiac catheterization Julian DIAZ Coronary artery sten t (physical object) Julian DIAZ Extraction of cataract Robi sherif DIAZ History of operative procedure on lumbar spinal structure Julian DIAZ Plan of Treatment Date Care Activity Detail Author Start: 07-01-2031 DTaP/Tdap/Td vaccine (3 - Td or Tdap) DTaP/Tdap/Td vaccine (3 - Td or Tdap) [employer] [facility] Start: 12-31-2025 Diabetes screen Diabetes screen [facility] Start: 2025 Pneumococcal 0-64 years Vaccine (3 - PPSV23 if available, else PCV20) Pneumococcal 0-64 years Vaccine (3 - PPSV23 if available, else PCV20) [facility] Start: 2025 Pneumococcal 0-64 years Vaccine (3 - PPSV23 or PCV20) Pneumococcal 0-64 years Vaccine (3 - PPSV23 or PCV20) [facility] Start: 01-01-2024 Lipid panel Lipids [facility] Clerk Start: 09-18-2023 End: 09-18-2023 Arthrodesis sacroiliac joint percutaneous ARTHRODESIS SACROILIAC JOINT MINIMALLY INVASIVE W/ TRANSFIXING DEVICE Sacroiliitis 09/18/2023 10:52 AM EST [facility] Start: 09-18-2023 End: 09-18-2023 Fluoroscopy up to 1 hour physician/qhp time FLUOROSCOPY IN OR Sacroiliitis 09/18/2023 10:52 AM EST [facility] Start: 08-14-2023 End: 08-14-2023 Patient encounter procedure 08/14/2023 2:45 PM EST Office Visit [facility] [address] [place] [address] Nikhil Mohr MD [address] [place] [address] [facility] Start: 08-14-2023 End: 08-14-2024 B12/folate level B12 & FOLATE Lab Routine Hereditary and idiopathic peripheral neuropathy Expected: 08/14/2023, Expires: 08/14/2024 [facility] Comment on above: Expected: 08/14/2023, Expires: Start: 08-14-2023 End: 08-14-2024 Hemoglobin A1c/Hemoglobin.total in Blood HEMOGLOBIN A1C Lab Routine Hereditary and idiopathic peripheral neuropathy Expected: 08/14/2023, Expires: 08/14/2024 [facility] Comment on above: Expected: 08/14/2023, Expires: Start: 08-14-2023 End: 08-14-2024 MILENA AND PE, SERUM MILENA AND PE, SERUM Lab Routine Hereditary and idiopathic peripheral neuropathy Expected: 08/14/2023, Expires: 08/14/2024 [facility] Comment on above: Expected: 08/14/2023, Expires: Start: 08-14-2023 End: 08-14-2024 MR Cervical spine WO contrast MRI SPINE CERVICAL WITHOUT CONTRAST Imaging Routine Hyperreflexia Expected: 08/14/2023, Expires: 08/14/2024 [facility] Comment on above: Expected: 08/14/2023, Expires: Start: 08-14-2023 End: 08-14-2024 MR Thoracic spine WO contrast MRI SPINE THORACIC WITHOUT CONTRAST Imaging Routine Hyperreflexia Expected: 08/14/2023, Expires: 08/14/2024 [facility] Comment on above: Expected: 08/14/2023, Expires: Start: 08-14-2023 End: 08-14-2024 VITAMIN B6 VITAMIN B6 Lab Routine Hereditary and idiopathic peripheral neuropathy Expected: 08/14/2023, Expires: 08/14/2024 [facility] Comment on above: Expected: 08/14/2023, Expires: 4 Start: 07-04-2023 End: 07-04-2023 Patient encounter procedure 07/04/2023 9:00 AM EDT Office Visit [facility] [address] [place] [address] Jennie Hernandez MD [address] [place] [address] [facility] Start: 06-10-2023 End: 06-10-2023 Patient encounter procedure 06/10/2023 10:00 AM EDT Office Visit [facility] [address] [place] [address] Jennie Hernandez MD [address] [facility] [address] [facility] [place] [address] [facility] Start: 06-06-2023 COVID-19 Vaccine ( season) COVID-19 Vaccine ( season) [facility] Start: 06-06-2023 Influenza vaccination [facility] Start: 05-19-2023 End: 05-19-2023 Patient encounter procedure 05/19/2023 9:00 AM EDT Office Visit [facility] [address] [place] [address] Jennie Hernandez MD [address] [facility] [place] [address] [facility] Start: 05-06-2023 Influenza vaccination Flu vaccine (#1) [facility] Start: 04-18-2023 End: 04-18-2023 Patient encounter procedure 04/18/2023 12:40 PM EDT Office Visit [facility] [address] [place] [address] Jennie Hernandez MD [address] [place] [address] [facility] Start: 04-15-2023 End: 04-15-2023 Patient encounter procedure 04/15/2023 10:15 AM EDT Office Visit [facility] [address] [place] [address] Jw Cee MD [address] [place] [address] [facility] Start: 03-25-2023 Hemoglobin A1c measurement A1C test (Diabetic or Prediabetic) [facility] Start: 02-25-2023 End: 02-26-2024 Electromyography EMG & NERVE CONDUCTION Neurology Routine Lower extremity numbness Expected: 02/25/2023, Expires: 02/26/2024 [facility] Comment on above: Expected: 02/25/2023, Expires: Start: 01-11-2023 Lipid screen Lipid screen [facility] [place] Start: 04-11-2022 End: 04-11-2022 Patient encounter procedure 04/11/2022 Office Visit Neurology Con Cowan MD [address] [place] [address] [facility] Start: 06-06-2021 Influenza vaccination Flu vaccine (Season Ended) [facility] Work Phone: Start: 01-10-2021 Diabetes screen Diabetes screen [facility] Start: 2020 Respiratory Syncytial Virus (RSV) or age 60 yrs+ (1 - 1-dose 60+ series) Respiratory Syncytial Virus (RSV) or age 60 yrs+ (1 - 1-dose 60+ series) [facility] Start: 08-17-2020 End: 08-17-2020 Appointment 08/17/2020 Appointment Stress Lab [facility] Start: 06-06-2020 Influenza vaccination Flu vaccine (#1) [place] Start: 06-06-2019 Influenza vaccination Flu vaccine (#1) [place] Start: 01-11-2019 Lipid panel [facility] Start: 01-11-2019 Lipid screen Lipid screen [place] Start: 08-13-2018 Prostate specific antigen measurement Prostate Specific Antigen (PSA) Screening or Monitoring [facility] Start: 2010 Colon cancer screen colonoscopy Colon cancer screen colonoscopy [place] Start: 2010 Prostate specific antigen measurement PROSTATE CANCER SCREENING DISCUSSION [facility] Start: 2010 Screening for malignant neoplasm of colon Colon cancer screen colonoscopy [place] Start: 2010 Shingles Vaccine (1 of 2) Shingles Vaccine (1 of 2) [place] Start: 2010 Zoster vaccine hzv live for subcutaneous use ZOSTER (SHINGLES) VACCINE (1 of 2) [facility] Start: 2005 Screening for malignant neoplasm of colon [facility] Start: 2000 Lipid panel LIPID SCREENING [facility] Start: 1979 DTaP/Tdap/Td vaccine (1 - Tdap) DTaP/Tdap/Td vaccine (1 - Tdap) [place] Start: 1979 Third diphtheria, tetanus and acellular pertussis (DTaP) vaccination TDAP (ADULT) [facility] Start: 1978 Hepatitis C screening Hepatitis C screen [facility] Start: 1975 HIV screen HIV screen [place] Start: 1975 HIV screening [facility] Start: 1972 COVID-19 Vaccine (1) COVID-19 Vaccine (1) [facility] Phone: Start: 1972 Depression Screen Depression Screen [facility] [employer] Start: 1971 DTaP/Tdap/Td vaccine (1 - Tdap) DTaP/Tdap/Td vaccine (1 - Tdap) [place] Start: 1966 Pneumococcal 0-64 years Vaccine (1 of 1 - PPSV23) Pneumococcal 0-64 years Vaccine (1 of 1 - PPSV23) [place] Start: 1966 Pneumococcal 0-64 years Vaccine (1 of 2 - PPSV23) Pneumococcal 0-64 years Vaccine (1 of 2 - PPSV23) [facility] [employer] Phone: Start: 04-09-1961 COVID-19 VACCINE (#1) COVID-19 VACCINE (#1) [facility] Start: 1960 Hepatitis C screen Hepatitis C screen [place], [place] Start: 1960 Hepatitis C screening [facility] Start: 1960 Tetanus vaccination TETANUS [facility] End: 01-02-2023 Basic Metabolic Panel w/ Reflex to MG Basic Metabolic Panel w/ Reflex to MG Lab Routine Daily for 3 Days starting 12/31/2022 until 01/02/2023, 1 completed [employer] Phone: Comment on above: Daily for 3 Days starting 12/31/2022 unt il 01/02/2023, 1 completed End: 01-02-2023 CBC W Auto Differential panel - Blood CBC with Auto Differential Lab Routine Daily for 3 Days starting 12/31/2022 until 01/02/2023, 1 completed [employer] Phone: Comment on above: Daily for 3 Days starting 12/31/2022 unt il 01/02/2023, 1 completed EKG 12 Lead EKG 12 Lead ECG STAT 06/14/2019 10:26 AM EDT [place] EKG 12 lead EKG 12 lead ECG Routine As Needed until discontinued starting 12/30/2022 [facility] [employer] [facility] Phone: Comment on above: As Needed until discontinued starting End: 03-25-2022 Hemoglobin A1c/Hemoglobin.total in Blood [employer] Phone: Comment on above: 1 Occurrences starting 03/25/2022 until 03/25/2022 End: 12-31-2022 Hemoglobin A1c/Hemoglobin.total in Blood Hemoglobin A1C Lab Routine Tomorrow AM for 1 Occurrences starting 12/31/2022 until 12/31/2022 [employer] Phone: Comment on above: Tomorrow AM for 1 Occurrences starting 0 12/31/2022 until 12/31/2022 Hemoglobin A1c/Hemoglobin.total in Blood Hemoglobin A1C Lab Routine 12/31/2022 6:30 AM EDT [employer] Phone: Initiate ED RT Bronc hospasm Protocol Initiate ED RT Bronchospasm Protocol Respiratory Care Routine Daily until discontinued starting 2023 [employer] Comment on above: Daily until discontinued starting 2023 End: 12-30-2022 Intermittent pulse oximetry Pulse Oximetry Spot Check Respiratory Care Routine One Time for 1 Occurrences starting 12/30/2022 until 12/30/2022 [employer] Phone: Comment on above: One Time for 1 Occurrences starting 12/05 until 12/30/2022 End: 03-25-2022 Nuclear Ab [Titer] in Serum by Immunofluorescence [employer] Phone: Comment on above: 1 Occurrences starting 03/25/2022 until 03/25/2022 Oxygen therapy [[facility] Data Set] Initiate Oxygen Therapy Protocol Respiratory Care Routine As Needed until discontinued starting 12/30/2022 [employer] Phone: Comment on above: As Needed until discontinued starting End: 2023 Portable XR Chest AP single view [employer] Comment on above: Once for 1 Occurrences starting 10/10/19 until 2023 End: 09-18-2023 RF Unspecified body region Views during surgery [facility] Comment on above: One Time for 1 Occurrences starting 09/05 until 09/18/2023 Stress test, lexiscan Stress kendra t, lexiscan Cardiac Services Routine 12/31/2022 3:03 PM EDT [employer] Phone: Vibratory Airway Clearance Vibra tory Airway Clearance Respiratory Care Routine Every 1hr while awake until discontinued starting 12/30/2022 [employer] Phone: Comment on above: Every 1hr while awake until discontinued starting 12/30/2022 End: 03-25-2022 Vitamin B12 & Folate [employer] Phone: Comment on above: 1 Occurrences starting 03/25/2022 until 03/25/2022 XR CHEST PORTABLE XR CHEST HEDY BLE Imaging STAT 06/14/2019 10:43 AM EDT [facility] [place], [place] Payers Date Payer Category Payer Unknown [id number] 2022 Unknown 2022 Unknown [id number] 2021 Unknown [id number] 2021 Unknown [id number] 2019 Private Health Insurance [facility] [id number] 2019-Present [phone] [address] [place] [address] [id number] .[id number] 2019 Private Health Insurance [employer] xxxxxxxxxx 2019-Present [phone] [address] [place] [address] xxxxxxxxxx 1.2.840.158720.1.13.239.2 .7.3.055937.315 2016 Unknown [id number] 2014 Unknown [id number] 1.2.840.229222.1.13.239.2 .7.3.674369.315 1960 Unknown [id number] 2.16.840.1.029443.3.579.2 .727 1960 Unknown [id number] 2.16.840.1.866635.3.579.2 .727 1960 Unknown [id number] 2.16.840.1.676406.3.579.2 .727 1960 Unknown [id number] 2.16.840.1.341242.3.579.2 .727 1960 Unknown [id number] 2.16.840.1.703559.3.579.2 .593 1960 Unknown [id number] 2.16.840.1.272409.3.579.2 .593 1960 Unknown [id number] 2.16.840.1.613721.3.579.2 .593 1960 Unknown [id number] 2.16.840.1.866059.3.579.2 .593 1960 Unknown [id number] 2.16.840.1.650626.3.579.2 .593 1960 Unknown [id number] 2.16.840.1.060358.3.579.2 .593 1960 Unknown [id number] 2.16.840.1.943617.3.579.2 .593 1960 Unknown [id number] 2.16.840.1.114996.3.579.2 .593 1960 Unknown [id number] 2.16.840.1.655676.3.579.2 .593 1960 Unknown [id number] 2.16.840.1.598673.3.579.2 .593 1960 Unknown [id number] 2.16.840.1.733362.3.579.2 .593 1960 Unknown [id number] 2.16.840.1.842994.3.579.2 .593 1960 Unknown [id number] 2.16.840.1.804571.3.579.2 .593 1960 Unknown [id number] 2.16.840.1.285176.3.579.2 .593 1960 Unknown [id number] 2.16.840.1.581853.3.579.2 .593 1960 Unknown [id number] 2.16.840.1.119733.3.579.2 .593 1960 Unknown [id number] 2.16.840.1.896017.3.579.2 .593 1960 Unknown [id number] 2.16.840.1.570531.3.579.2 .593 1960 Unknown [id number] 2.16.840.1.443556.3.579.2 .593 1960 Unknown [id number] 2.16.840.1.915846.3.579.2 .593 1960 Unknown [id number] 2.16.840.1.676244.3.579.2 .983 1960 Unknown [id number] 2.16.840.1.084252.3.579.2 .983 1960 Unknown [id number] 2.16.840.1.898839.3.579.2 .983 1960 Unknown [id number] 2.16.840.1.604392.3.579.2 .983 1960 Unknown [id number] 2.16.840.1.138314.3.579.2 .983 1960 Unknown [id number] 2.16.840.1.631976.3.579.2 .983 1960 Unknown [id number] 2.16.840.1.193370.3.579.2 .983 1960 Unknown [id number] 2.16.840.1.114005.3.579.2 .983 1960 Unknown [id number] 2.16.840.1.238467.3.579.2 .983 1960 Unknown [id number] 2.16.840.1.182144.3.579.2 .983 1960 Unknown [id number] 2.16.840.1.751943.3.579.2 .983 1960 Unknown [id number] 2.16.840.1.024992.3.579.2 .983 1960 Unknown [id number] 2.16.840.1.006094.3.579.2 .983 1960 Unknown [id number] 2.16.840.1.419964.3.579.2 .983 1960 Unknown [id number] 2.16.840.1.472980.3.579.2 .173 1960 Unknown [id number] 2.16.840.1.574308.3.579.2 .173 1960 Unknown [id number] 2.16.840.1.946172.3.579.2 .1259 1960 Unknown [id number] 2.16.840.1.952121.3.579.2 .196 1960 Unknown [id number] 2.16.840.1.853340.3.579.2 .196 1959 Unknown [id number] 1.2.840.511874.1.13.239.2 .7.3.478701.315 1959 Unknown [id number] Social History Date Type Detail Facility Start: 06-14-2019 End: 12-30-2022 Tobacco smoking status [facility] Never smoker [facility] Start: 06-14-2019 End: 12-30-2022 Alcohol intake Yes [facility]HC[facility] Start: 06-14-2019 Alcohol Comment not every day [facility] CARLOS Start: 1960 [facility] [place] [place] Start: 09-12-2019 End: 12-30-2022 Alcohol intake Current drinker of alcohol (finding) [place] Start: 07-18-2020 End: 12-30-2022 Tobacco use and exposure [facility] Start: 03-15-2022 End: 12-30-2022 Exposure to SARS-CoV-2 (event) Not sure [place] Start: 03-09-2021 End: 12-30-2022 Alcohol intake [employer] Tobacco smoking status Never [facility]essy Start: 12-30-2022 History SDOH Alcohol Frequency 5 [employer] Work Phone: Start: 12-30-2022 History SDOH Alcohol Std Drinks 2 [employer] Work Phone: Start: 09-09-2023 Alcohol Comment 3-4 BEERS DAILY [facility] How often to you hav e a drink containing alcohol? 4 or more times a week [employer] How many standard dr inks containing alcohol do you have on a typical day? 3 or 4 [employer] How often do you hav e 6 or more drinks on 1 occasion? Daily or almost daily [employer] Medical Equipment Procedure Code Equipment Code Equipment [...] prepare for safety after surgery. (Met today) Improvement Rn Goals: Independent core exercises for group home use to prevent reoccurrence. Return to normal activity of house work/leisure/ADLs with post op therapy as ordered by surgeon if needed. Functional Status Date Assessment Result Facility 05-31-2022 Functional Status N/A [facility] Clinical Notes 02-21-2022 to 02-11-2024 Discharge InstructionsNursing Notes - Griselda Craig RN - 09/18/2023 2:38 PM ESTNursing Notes - Griselda Craig RN - 09/18/2023 2:38 PM ESTNursing Notes - Venecia Rivera RN - 09/18/2023 2:18 PM EST Note Date & Type Note Facility 02-11-2024 Note [place] Cardiology - [facility] Subjective Noel Alva is a [...] within normal limits. He underwent cath at [facility] 01/12/2018 due to chest pain that [...] the morning. D (more content not included)... [facility] 2023 Hospital Discharge instructions Nadia Fitzpatrick [...] or concern. documented in this encounter [facility] 09-18-2023 Note #Cardiac risk strati fication [...] Normal diastolic function No significant valvular abnormalities [facility] 09-18-2023 Nurse Note Pt provided with discharge instructions. Pt Iv removed and belongings gathered. Pt was wheeled to car by surgery staff and driven home by family. [facility] 09-18-2023 Miscellaneous Notes Pt provided with discharge [...] this time POST OPERATIVE/PROCEDURE NOTE Noel Alva ([id number]) SURGEON Surgeon(s) and Role: * Shaheen Chappell MD - Primary FOREIGN LANGUAGE INSTRUCTOR Marques ANESTHESIOLOGIST AUTOMATIC RIVETING MACHINE OPERATOR: Avinash Adams APRN-AUTOMATIC RIVETING MACHINE OPERATOR Student Nurse Vinegar Maker: Amanda Murphy SURGICAL STAFF Metal Numerical Tool Programmer: Caryn Tineo RN Registered Nurse Trial Mgr: Angeline Mohan RN Scrub Person: Luiza Calderon [...] 2023 12:13 PM documented in this encounter [facility] 09-18-2023 Nurse Note OT in with pt at this time [facility] 09-18-2023 History of Present illness Narrative 09/18/23 [...] and can help during recovery) Primary Language Moldovan PRIOR LEVEL AM-PAC Activity Inpatient Short Form [...] LUE Assessment WFL Supine to Sit Mobility [place] Level: Supine->Sit contact guard assist Bed Features/Set-up: Supine->Sit Flat Skilled Rationale Verbal cues Skilled Intervention/Details: Supine->Sit pt reorted that he knew how to log roll but twisted to get up even with vcs and attempts to physically assist with proper technique Sit to Stand Transfer [place] Level: Sit->Stand contact guard assist Assistive Device: Sit->Stand 2 wheeled walker Skilled Rationale Hand placement;Verbal cues Skilled Intervention/Details: Sit->Stand pt pulling up on the walker with both hands- cues to push off Stand to Sit Transfer [place] Level: Stand->Sit stand-by assist Assistive Device: Stand->Sit [...] assist with R sock Acute AMPAC Acute [facility] Assessments Daily Activity Inpatient Short Form CURRENT [...] Low (problem-focused assessments w/limited treatment options) 09/18/23 1553 Surgery Information RN Approved Intervention as tolerated [...] bed mobility & transfers with supervision to MA. He was provided education review with log [...] Completed? yes Therapist Information License # [place] [id number] General Information Pertinent History of Current Problem The patient is a 62 year old male with sacroiliitis who underwent Right SI fixation. He was referred to physical therapy for post procedure education review & mobility. Jc Farmer, PT documented in this encounter [facility] 09-18-2023 Nurse Note Pt ambulating in [place] with PT without difficulty. [facility] 09-18-2023 Nurse Note PT in with pt at this time [facility] 09-18-2023 Nurse Note Discharge instructions provided, pt states understanding, including the sedentary activity as described, denies questions. [facility] 09-18-2023 Hospital Discharge instructions Venecia [...] take percocet prescribed by . Proceed with [place] as prescribed by Dr. Chappell-when [place] is completed, you may resume percocet from [...] this carefully. Please attend family, community and restorationism events as soon as possible after your [...] should be faxed. documented in this encounter [facility] 09-18-[address] Chappell in to see pt at this time [facility] 09-18-2023 Surgery Postoperative evaluation and management note POST OPERATIVE/PROCEDURE NOTE Noel Alva ([id number]) SURGEON Surgeon(s) and Role: * Shaheen Chappell MD - Primary FOREIGN LANGUAGE INSTRUCTOR Marques ANESTHESIOLOGIST AUTOMATIC RIVETING MACHINE OPERATOR: Avinash Adams APRN-AUTOMATIC RIVETING MACHINE OPERATOR Student Nurse Vinegar Maker: Amanda Murphy SURGICAL STAFF Metal Numerical Tool Programmer: Caryn Tineo RN Registered Nurse Trial Mgr: Angeline Mohan RN Scrub Person: Luiza Calderon [...] Chappell MD September 18, 2023 12:13 PM [facility] 08-14-2023 History of Present illness Narrative [facility] Chief Complaint Patient [...] smoke. He is managed [facility] [place]. He is receiving Percocet and Lyrica. Lyrica [...] lids. There is no papilledema on fundoscopy. 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 Noel was seen today for new patient. Diagnoses and all orders for this visit: Hereditary and idiopathic peripheral neuropathy - HEMOGLOBIN A1C; Future - B12 & FOLATE; Future - VITAMIN B6; Future - MILENA AND PE, SERUM; Future Hyperreflexia - MRI SPINE CERVICAL WITHOUT CONTRAST; Future - MRI SPINE THORACIC WITHOUT CONTRAST; Future Nikhil Mohr MD 08/14/2023 documented in this encounter [facility] 08-13-2023 Note Cardiovascular Medic ine [facility] SUBJECTIVE Chief Complaint Patient presents with Coronary [...] his right hip with Dr. Chappell in [place]. Had labs in December 2022. history of CAD s/p stenting of the LAD in 2004, echocardiogram in 2010 was within normal limits. He underwent cath at [facility] 01/12/2018 due to chest pain that [...] ASHD (arteriosclerotic heart disease) Dyslipidemia Intermittent claudication ([facility]) Mild intermittent asthma without complication Paresthesia of upper limb Peripheral vascular disease ([facility]) Primary hypertension S/P angioplasty with stent S/P cardiac cath Unstable angina ([facility]) Viral syndrome Past Medical History: Diagnosis Date Coronary artery disease Hypertension PVD (peripheral vascular disease) ([facility]) Family History Problem Relation Name [...] Mood and Affect (more content not included)... [facility] 08-13-2023 Note Patient here for 1 [...] his right hip with Dr. Chappell in [place]. Had labs in December 2022. Review of Systems Cardiovascular: Positive for chest pain, claudication and dyspnea on exertion. Musculoskeletal: Positive for arthritis, back pain, joint pain and myalgias. Neurological: Positive for numbness. All other systems reviewed and are negative. [facility] 07-16-2023 History of Present illness Narrative [...] Date/Time: 07/16/2023 1:40 PM Performed by: Jennie Hernnadez MD Authorized by: Jennie Hernandez MD Supporting [...] therapy, medications, SI belt, therapeutic injections. Inadequate group home relief from therapeutic injection. 100% relief while [...] therapy, medications, SI belt, therapeutic injections. Inadequate group home relief from therapeutic injection. 100% relief while [...] findings. Additions if any: Jennie Hernandez MD, [facility] documented in this encounter [facility] 07-16-2023 Instructions Eric Luu - 07/16/2023 1:40 [...] associated with corticosteroids. documented in this encounter [facility] 07-04-2023 History of Present illness Narrative Referred [...] Topical creams Physical therapy? Done recently at [facility] Xrays? Lumbar spine 12/2022 done at [place], bilateral hips and pelvis 01/08/23 MRI? 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 Done recently at [facility] Xrays? Lumbar spine 12/2022 done at [place], bilateral hips and pelvis 01/08/23 MRI? 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 Additions if any: Jennie Hernandez MD, [facility] documented in this encounter [facility] 06-10-2023 History of Present illness Narrative Associated [...] findings. Additions if any: Jennie Hernandez MD, [facility] documented in this encounter [facility] 05-19-2023 History of Present illness Narrative Referred [...] Topical creams Physical therapy? Done recently at [place] [facility] Xrays? Lumbar spine 12/2022 done at [place], bilateral hips and pelvis 01/08/23 MRI? 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 Done recently at [facility] Xrays? Lumbar spine 12/2022 done at [place], bilateral hips and pelvis 01/08/23 MRI? 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 Additions if any: Jennie Hernandez MD, [facility] Plateman - [facility] documented in this encounter [facility] 04-18-2023 History of Present illness Narrative Patient [...] findings. Additions if any: Jennie Hernandez MD, [facility] Plat[place] - [facility] documented in this encounter [facility] 04-18-2023 Instructions Eric Luu - 04/18/2023 12:40 [...] associated with corticosteroids. 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 Noel may call the office with any questions or concerns. 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 Noel may call the office with any questions or concerns. Referrals:None Medications prescribed today: None Follow up plan: Sports US guided left sacroiliac joint injection with TOURIST CAMP ATTENDANT Complexity of problem(s): Mild Risk of morbidity [...] Additions if any: Jennie Hernandez MD, [facility] Plat[place] - [facility] documented in this encounter [facility] 12-31-2022 History of Present illness Narrative Category Specialist reviewed discharge instructions with patient. No new [...] home following this hospitalization. Patient resides in [place] alone. He uses no DME and has no outside resources or services currently in place. 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 He is independent with all activities of daily living. Patient drives himself and provides for his own transportation needs. PCP is Romario Mna. Patient has medical insurance and reports that [...] Priscilla, as his decision maker if needed. VALUE STREAM MANAGER to monitor and assist with any further [...] Well developed, well nourished with no malnutrition Cleaner Furniture consult initiated Hospital Prophylaxis: DVT: Lovenox Stress Ulcer: H2 Sarah Disposition: Shared decision making: All test results, treatment options and disposition options were discussed with the patient today Social determinants of health that may impact management: none Code status: Full Code Disposition: Discharge plan is home [facility] Advanced Care Planning documentation: [x] [...] the patient's medical record. [DOES NOT SATISFY [facility] PERFORMANCE] Cece Villalobos, AUTUMN - TRASH TRUCK DRIVER , BELT BUCKLE MAKER, MANAGER IMAGING-C Hospitalist Medicine 12/31/2022, 9:21 AM Associated attestation - Kendell Camacho MD - 12/31/2022 5:52 PM EDT Images from the original note were not included. [address] , [place], [place], [address] Attestation Patient: Noel Alva Date of Admission: 12/30/2022 6:09 AM Hospital Day # 1 Date of Evaluation: 12/31/2022 I personally evaluated and examined the patient [id number] in conjunction with the PA/MANAGER IMAGING and agree with the management and dispostition of the patient. Please see the PA/MANAGER IMAGING's note for full details. My argueta findings [...] with the plan as outlined in the MANAGER IMAGING/PA's note Disposition: Discharge plan is pending Please note that this chart was generated using voice recognition [employer] dictation software. Although every effort was made to ensure the accuracy of this automated hand stonecutter, some errors in hand stonecutter may have occurred. Kendell Camacho MD 12/31/2022 5:52 PM Category Specialist to bedside to complete morning assessment. Upon entry to room, pt sitting up in bed, respirations even and unlabored while on room air. Vitals obtained and assessment completed, see flow sheet for details. Dr Camacho at bedside, reviewed pts blood pressure medications with him, okay to hold Norvasc and Metoprolol this morning. Pt denies needs from parts data writer at this time. Call light in reach. Care ongoing. Noted parts data writer had not urinated yet this shift. [...] bedside table are within reach, will monitor. Category Specialist offered meds to bed but patient declined. Echocardiogram/Doppler done at bedside. Instructed on policies and procedure. Spoke to cristian Zhao CNP for parts data writer to correct home medications. Okay to add: protonix, iron, Mobic, Lisinopril, and Amlodipine. Cardiology consult called to office. When reviewing home medications it was noted that there were some differences in doses of medications. Called [facility] and clarified medications. Will update [...] reach. Care ongoing. documented in this encounter [employer] Phone: 12-31-2022 Hospital Discharge instructions Ana Gutierres [...] at most local grocery stores, pharmacies, and [employer]. If you have any questions about your diet or nutrition, call the hospital and ask for the dietitian. Cardiac: low sodium, low cholesterol, low fat documented in this encounter [employer] Phone: 12-31-2022 Hospital course Narrative Discharge Summary [...] sharp in the left chest. No radiation. [place] burning sensation when the chest pain subsided. [...] discharge home he will follow-up with his investment consultant in [place]. Consultants: Dr. Mohr, cardiology Procedures: Stress Test [...] Your Medications These medications were sent to [facility] [address] [place] [address], [place] - [address] - P [phone] - f [phone] [address] [address], [facility] [id number] atorvastatin 20 MG tablet Patient Instructions: Activity: activity as tolerated Diet: cardiac diet Wound Care: none needed Other: None Disposition: Discharge to Home Follow up: Patient will be followed by Romario Man MD in 1-2 weeks CORE MEASURES on Discharge (if applicable) BRITTNY/ARB in CHF: NA Statin in MA: NA ASA in MA: NA Statin in CVA: NA Antiplatelet in CVA: NA Total time spent on discharge services: 40 minutes Including the following activities: Evaluation and Management of patient Discussion with patient and/or surrogate about current care plan Coordination with Case Management and/or [employer] Bone Coordination of care with Consultants (if applicable) Coordination of care with Receiving Facility Physician (if applicable) Completion of DME forms (if applicable) Preparation of Discharge Summary Preparation of Medication Reconciliation Preparation of Discharge Prescriptions Signed: Cece Villalobos APRN - S[place]AR, AUTUMN, MANAGER IMAGING-C 12/31/2022, 5:06 PM Associated attestation - Kendell Camacho MD - 12/31/2022 5:53 PM EDT Images from the original note were not included. [address], [address] Attestation Patient: Noel Alva Date of Admission: 12/30/2022 6:09 AM Hospital Day # 1 Date of Evaluation: 12/31/2022 I personally evaluated and examined the patient [id number] in conjunction with the PA/MANAGER IMAGING and agree with the management and dispostition of the patient. Please see the PA/MANAGER IMAGING's note for full details. My argueta findings [...] care plan Coordination with Case Management and/or [employer] Coordination of care with Consultants (if applicable) [...] this chart was generated using voice recognition [employer] dictation software. Although every effort was made to ensure the accuracy of this automated hand stonecutter, some errors in hand stonecutter may have occurred. Kendell Camacho MD 12/31/2022 5:53 PM documented in this encounter [facility] [employer] Work Phone: 11-14-2022 Note CONSULTATION CONSULTATION DATE: [...] or foot drop. 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 He did have to take two days off of work last week, which his very unlike him. He had trouble getting out of bed due to increased pain. He is prescribed [place] 5/325 t.i.d., but due to pain, patient [...] radiculopathy, lumbar spondylosis. PLAN: Patient brought his [place] in today for a pill count. We will change his medication to Percocet 5/325 t.i.d. and increase his Lyrica to 100 mg b.i.d. I did recommend a Neurosurgery referral, which the patient does agree to. We will send a referral to Dr. Shaheen Chappell at [facility] in [place]. We will continue to manage his medications at this time, and we will see him in the clinic in three months. Patient agrees with this plan. [facility] 10-16-2022 Note CONSULTATION CONSULTATION DATE: 10/16/2022 [...] use a cane. His current medications include [place] 5/325 b.i.d. and Aleve p.r.n. He has [...] next three days, we will increase his [place] 5/325 to t.i.d. We will start also [...] Patient does agree with this plan. [facility] 08-22-2022 Note CONSULTATION CONSULTATION DATE: 08/22/2022 [...] weakness. Medications include Mobic 15 mg daily, [place] 5/325 b.i.d. and tizanidine 4 mg q.h.s. [...] a menthol rub. We will maintain his [place] 5/325 b.i.d. and he was instructed to use Voltaren to hi right CMC joint. Patient agrees with the plan of care and will be followed up in the office thereafter. [facility] 06-26-2022 Note OPERATIVE NOTE OPERATION DATE: [...] good condition. CC: Romario Man M.D. 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 [facility] Comment on above: Result Comment: Elec [...] procedure well with no overt complications. [facility] 05-30-2022 Note CONSULTATION CONSULTATION DATE: 05/30/2022 [...] Medications include Mobic 15 mg daily and [place] 5/325 b.i.d. He does take tizanidine 4 [...] indicated. Patient agrees with this plan. [facility] 04-03-2022 Note CONSULTATION CONSULTATION DATE: 04/03/2022 [...] and his workup at the ER in [place] warranted no findings. Today, he reports consistent [...] mg q.h.s., Mobic 15 mg daily and [place] 5/325 b.i.d. p.r.n. Activities such as standing, [...] clinic and heading straight to the lab. [facility] Signed and Approved by: JULIANE MASSEY . 04/04/2022 13:38:00 [facility] 02-21-2022 Note CONSULTATION CONSULTATION DATE: 02/21/2022 [...] Medications include Mobic 15 mg q. day, [place] 5/325 b.i.d. and tizanidine 4 mg q.h.s., [...] cervical neuritis. PLAN: We will refill his [place] today 5/325 b.i.d., p.r.n. We will move [...] followed up in the office post procedure. [facility] Signed and Approved by: JULIANE MASSEY . 02/25/2022 15:08:00 [facility] Evaluation + Plan note No data available for this section General Surgery Yessy Evaluation note Diagnosis Acute gout of right wrist, unspecified cause- Primary documented in this encounter [employer] Phone: evaluation note* Diagnosis Chronic fatigue Other malaise and fatigue documented in this encounter [employer] Phone: evaluation note* Diagnosis Atypical chest pain- Primary Other chest pain Chest pain, unspecified type Viral syndrome Unspecified viral infection, in conditions classified elsewhere and of unspecified site documented in this encounter [employer] Phone: evalaabnik note* Diagnosis Osteoarthritis of left sacroiliac joint- Primary Lumbar spondylosis Lumbosacral spondylosis without myelopathy Lower extremity numbness Disturbance of skin sensation documented in this encounter [employer] [facility]* Diagnosis Osteoarthritis of left sacroiliac joint documented in this encounter [employer] [facility]* Diagnosis Osteoarthritis of left sacroiliac joint- Primary Osteoarthritis of left sacroiliac joint documented in this encounter [employer] [facility]* Diagnosis Osteoarthritis of left sacroiliac joint- Primary Pain of left sacroiliac joint Disorders of sacrum Lumbar spondylosis Lumbosacral spondylosis without myelopathy documented in this encounter [employer] [facility]* Diagnosis Osteoarthritis of right sacroiliac joint- Primary Pain of right sacroiliac joint Disorders of sacrum Polyneuropathy Unspecified hereditary and idiopathic peripheral neuropathy Lower extremity numbness Disturbance of skin sensation Osteoarthritis of left sacroiliac joint Pain of left sacroiliac joint Disorders of sacrum Lumbar spondylosis Lumbosacral spondylosis without myelopathy documented in this encounter [facility]* Diagnosis Osteoarthritis of both sacroiliac joints- Primary Pain of both sacroiliac joints Disorders of sacrum Polyneuropathy Unspecified hereditary and idiopathic peripheral neuropathy documented in this encounter [facility]* Diagnosis Osteoarthritis of both sacroiliac joints Pain of both sacroiliac joints Disorders of sacrum [facility] Diagnosis Osteoarthritis of both sacroiliac joints- Primary Pain of both sacroiliac joints Disorders of sacrum Osteoarthritis of both sacroiliac joints Pain of both sacroiliac joints Disorders of sacrum documented in this encounter [facility]* Diagnosis Hereditary and idiopathic peripheral neuropathy- Primary Unspecified hereditary and idiopathic peripheral neuropathy Hyperreflexia Abnormal reflex [facility] Diagnosis Sacroiliitis- Primary Sacroiliitis, not elsewhere classified [facility] Diagnosis Viral illness- Primary Unspecified viral infection, in conditions classified elsewhere and of unspecified site [facility] Dis[facility]* Attachments The following attachments cannot be sent through Care Everywhere. * Gout ([place]) [facility] Discharge instructions No data available for this section General Surgery [place] [facility] note No data available for this section General Surgery [facility] Reason for referral (narrative)* Consultation (Routine) - Auth Not Needed Specialty Diagnoses / Procedures Referred By Anni t Referred To Contact Neurology Diagnoses Polyneuropathy Jennie Hernandez MD [address] [place] [id number] Nikhil Mohr MD [address] [place] [address] Referral ID Status Reason Start Date Expiration Date V isits Requested Visits Authorized [id number] Auth Not Needed 06/10/2023 07/04/2024 1 1 * Radiology (Routine) - New Request Specialty Diagnoses / Procedures Referred By Contac t Referred To Contact Diagnoses Osteoarthritis of left sacroiliac joint Pain of left sacroiliac joint Procedures US IMAGING FOR ORTHO Jennie Hernandez MD [address] [place] [address] [place] [address] Referral ID Status Reason Start Date Expiration Date V isits Requested Visits Authorized [id number] New Request 06/10/2023 07/04/2024 1 1 [facility] for referral (narrative)* Consultation (Routine) - Schedule Outgoing - Transfer of Care Specialty Diagnoses / Procedures Referred By Contac t Referred To Contact Neurologic Surgery Diagnoses Osteoarthritis of both sacroiliac joints Pain of both sacroiliac joints Jennie Hernandez MD [address] [place] [id number] Referral ID Status Reason Start Date Expiration Date V isits Requested Visits Authorized [id number] Schedule Outgoing - Transfer of Care 07/16/2023 08/09/2024 1 1 * Radiology (Routine) - New Request Specialty Diagnoses / Procedures Referred By Contac t Referred To Contact Diagnoses Osteoarthritis of both sacroiliac joints Pain of both sacroiliac joints Procedures US IMAGING FOR ORTHO Jennie Hernandez MD [address] [place] [address], [place] [address] Referral ID Status Reason Start Date Expiration Date V isits Requested Visits Authorized [id number] New Request 07/16/2023 08/09/2024 1 1 [facility] for referral (narrative)* (Routine) Specialty Diagnoses / Procedures Referred By Contac t Referred To Contact [facility] [place] [facility] [address] [place] [address] Referral ID Status Reason Start Date Expiration Date Visits Re quested Visits Authorized [facility] Summary Purpose Family History No [...] FoundDocuments on File Type Date Recorded Patient Yard Spotter Expl anation Advance Directives and Living Will Power of Supervisor Shop Latest Code Status on File Code Status Date Activated Date Inactivated Comments Full Code 01/12/2018 8:34 PM 01/13/2018 3:53 PM Full Code 01/10/2018 3:36 PM 01/12/2018 8:34 PM Documents on File Type Date Recorded Patient Yard Spotter Expl anation ACP-Advance Directive ACP-Power of Supervisor Shop Documents on File Type Date Recorded Patient Yard Spotter Expl anation ACP-Advance Directive ACP-Power of Supervisor Shop Latest Code Status on File Code Status [...] sent through Care Everywhere. * Chest Pain (Moldovan) * Back Pain (Moldovan) * Shoulder Pain (Moldovan) documented in this encounter* Instructions* Justice Shaver [...] sent through Care Everywhere. * Neck Spasm (Moldovan) documented in this encounter* Attachments The following attachments cannot be sent through Care Everywhere. * Abdominal Pain (Moldovan) * Acid-Reducing Medicines: General Info (Moldovan) documented in this encounter Assessments Diagnosis Chronic [...] Procedures VL DUP CAROTID BILATERAL Lisa Wyatt, BELT BUCKLE MAKER - TRASH TRUCK DRIVER [address] [place] [address] Specialty Diagnoses / Procedures Referred By Contac t Referred To Contact Diagnoses Lower extremity numbness Procedures EMG & NERVE CONDUCTION Jennie Hernandez MD [address] [facility] [place] [address] [place] [address] Jw Cee MD [address] [place] [id number] Referral ID Status Reason Start Date Expiration Date V isits Requested Visits Authorized [id number] Pending Review 02/25/2023 03/21/2024 1 1 Specialty Diagnoses / Procedures Referred By Contac t Referred To Contact Diagnoses Osteoarthritis of left sacroiliac joint Procedures US IMAGING FOR ORTHO Jennie Hernandez MD [address] [facility] [place] [address] [place] [address] Referral ID Status Reason Start Date Expiration Date V isits Requested Visits Authorized [id number] New Request 04/18/2023 05/12/2024 1 1 Specialty Diagnoses / Procedures Referred By Contac t Referred To Contact Diagnoses Osteoarthritis of both sacroiliac joints Pain of both sacroiliac joints Procedures US IMAGING FOR ORTHO Jennie Hernandez MD [address] [place] [address] Referral ID Status Reason Start Date Expiration Date V isits Requested Visits Authorized [id number] New Request 07/16/2023 08/09/2024 1 1 Specialty Diagnoses / Procedures Referred By Contac t Referred To Contact Diagnoses Hyperreflexia Procedures MRI SPINE THORACIC WITHOUT CONTRAST CT MRI, DORSAL SPINE Nikhil Mohr MD [address] [place] [id number] Referral ID Status Reason Start Date Expiration Date V isits Requested Visits Authorized [id number] New Request 08/14/2023 09/07/2024 1 1 Specialty Diagnoses / Procedures Referred By Contac t Referred To Contact Diagnoses Hyperreflexia Procedures MRI SPINE CERVICAL WITHOUT CONTRAST CT MRI, CERV SPINE Nikhil Mohr MD [address] [place] [address] Referral ID Status Reason Start Date Expiration Date V isits Requested Visits Authorized [id number] New Request 08/14/2023 09/07/2024 1 1 Additional Source Comments (unrecognized sect ion and content) No Status Records FoundNo Status Records FoundNo Status Records FoundNo Status Records FoundNo Status Records FoundNo Status Records FoundNo Status Records FoundNo Status Records FoundNo Status Records FoundNo Status Records FoundNo Status Records Found INFORMATION SOURCE (unrecogn ized section and content) DATE CREATED AUTHOR 03/26/2018 [facility] DATE CREATED AUTHOR AUTHOR'S ORGANIZ ATION 03/26/2018 [facility] DATE CREATED AUTHOR AUTHOR'S ORGANIZ ATION 07/11/2022 [facility] DATE CREATED AUTHOR AUTHOR'S ORGANIZ ATION 01/18/2023 [facility] DATE CREATED AUTHOR AUTHOR'S ORGANIZ ATION 04/15/2023 [facility] DATE CREATED AUTHOR AUTHOR'S ORGANIZ ATION 07/18/2023 [facility] DATE CREATED AUTHOR AUTHOR'S ORGANIZ ATION 09/22/2023 [facility] DATE CREATED AUTHOR AUTHOR'S ORGANIZ ATION 10/11/2023 [facility] DATE CREATED AUTHOR AUTHOR'S ORGANIZ ATION 11/25/2023 [facility] dical Specialists EPIC DATE CREATED AUTHOR AUTHOR'S ORGANIZ ATION 02/13/2024 [facility] DATE CREATED AUTHOR AUTHOR'S ORGANIZ ATION 03/25/2024 [facility] Reason for Visit (unrecogniz ed section and content) Reason Comments Shoulder Pain ongoing for past wee k worse today Neck Pain worse today Chest Pain ongoing for one week worse today Reason Comments Neck Pain burning/shooting kalen n, BL posterior neck. REcent nerve procedure with pain management. Out of [place] for 2 days. Reason Comments Flank Pain pt staes bilateral f alnk pain, onset Friday Status Reason Specialty Diagnoses / Procedures Referred By Contact Referred To Contact Authorized Stress Lab Diagnoses Atherosclerotic heart disease of iqugmiut coronary artery without angina pectoris Procedures HC NM LEXISCAN STRESS W NUC HC NM SEST. REST STRESS MULT [id number] NM STRESS Lisa Wyatt, BELT BUCKLE MAKER - TRASH TRUCK DRIVER [address] [place] [address] [facility] [address] [place], [place] [id number] Status Reason Specialty Diagnoses / Procedures Referre d By Contact Referred To Contact Closed Vascular Lab Diagnoses Other specified peripheral vascular diseases Procedures EXTRACRANIAL BILAT STUDY [address] US CAROTIDS Lisa Wyatt, BELT BUCKLE MAKER - TRASH TRUCK DRIVER [address] [place] [address] [facility] [address] [place] [id number] Status Reason Specialty Diagnoses / Procedures Referred By Contact Referred To Contact Closed Stress Lab Diagnoses Atherosclerotic heart disease of iqugmi[place] coronary artery without angina pectoris Procedures HC NM LEXISCAN STRESS W NUC HC NM SEST. REST STRESS MULT [id number] NM STRESS Lisa Wyatt, BELT BUCKLE MAKER - TRASH TRUCK DRIVER [address] [place] [address] [facility] [address] [address] Reason Comments Wrist Pain Right, onset last [...] pain, unspecified type Kendell Camacho MD [address] [place] [address] [facility] [address] [place] [address] Referral ID Status Reason Start Date Expiration Date Visits Re quested Visits Authorized [id number] 1 1 Reason Comments Pain New Patient Specialty Diagnoses / Procedures Referred By Contac t Referred To Contact Diagnoses Osteoarthritis of left sacroiliac joint Procedures [facility] Jennie Hernandez MD [address] [facility] [place] [address] Referral ID Status Reason Start Date Expiration Date V isits Requested Visits Authorized [id number] New Request 04/18/2023 05/12/2024 1 1 Reason Comments Pain Joint Injection Reason Comments Pain Follow-up Reason Comments Pain Specialty Diagnoses / Procedures Referred By Contac t Referred To Contact Diagnoses Osteoarthritis of both sacroiliac joints Pain of both sacroiliac joints Procedures [facility] Jennie Hernandez MD [address] [facility] [place] [address] Referral ID Status Reason Start Date Expiration Date V isits Requested Visits Authorized [id number] New Request 07/16/2023 08/09/2024 1 1 Reason Comments Pain Right Sacroiliac laurent nt Follow-up Right Sacroiliac laurent nt Joint Injection Right Sacroiliac laurent nt Reason Comments New Patient bilateral lower limb polyneuropathy Specialty Diagnoses / Procedures Referred By Contac t Referred To Contact Neurology Diagnoses Polyneuropathy Jennie Hernandez MD [address] [facility] [place] [address] [place] [address] Nikhil Mohr MD [address] [place] [address] Referral ID Status Reason Start Date Expiration Date Visits Re quested Visits Authorized [id number] Closed 06/10/2023 07/04/2024 1 1 Specialty Diagnoses / Procedures Referred By Anni t Referred To Contact Diagnoses Sacroiliitis Sacroiliitis [M46.1] Procedures CT ARTHRODESIS SACROILIAC JOINT PERCUTANEOUS CHG FLUOROSCOPY UP TO 1 HOUR PHYSICIAN/QHP TIME CT IMPLANT/INSERT DEVICE, NOC PROSTHETIC IMPLANT NOS ARTHRODESIS SACROILIAC JOINT MINIMALLY INVASIVE W/ TRANSFIXING DEVICE FLUOROSCOPY IN OR Shaheen Chappell MD [address] [facility] [address] Referral ID Status Reason Start Date Expiration Date Visits Re quested Visits Authorized [id number] 09/11/2023 1 1 Reason Comments Influenza Symptoms [...] mg from all sources in 24 hours. 8141 (Given - Provider: Monalisa Hudson RN) 0868 (Given - Provider: Corrie Ibarra RN - [...] Order 09/16/2023 09/17/2023 09/18/2023 BUPivacaine-EPINEPHrine (MARCAINE;SENSORCAINE-MPF) 0.5% -1:[id number] injection (CANCELED) NEEDED, Starting on Debbie 09/18/23 at 1144, Until Debbie 09/18/23 at 1228, Intra-op/Intra-Proc 1144 (Given - Provid er: Shaheen Chappell MD) ceFAZolin (ANCEF) 2 g in dextrose 100 mL premix IVPB (COMPLETED) 2 g, Intravenous, Administer over 30 Minutes, BATTERY CHECKER TO PROCEDURE, 1 dose, Starting on Debbie [...] Care Teams (unrecognized sec tion and content) Thermal Technician Relationship Specialty Start Date End Date Romario Man MD [address] [place] [address] PCP - General Family Medicine 06/14/19 Thermal Technician Relationship Specialty Start Date End Date Romario Man MD [address] [place] [address] PCP - General Family Medicine 06/14/19 Thermal Technician Relationship Specialty Start Date End Date Romario Man MD [address] [place] [phone] PCP - General Family Medicine 04/18/23 Thermal Technician Relationship Specialty Start Date End Date Romario Man MD [address] [place] [phone] PCP - General Family Medicine 04/18/23 Thermal Technician Relationship Specialty Start Date End Date Romario Man MD [address] [place] [address] PCP - General Family Medicine 04/18/23 Thermal Technician Relationship Specialty Start Date End Date Romario Man MD [address] [place] [address] PCP - General Family Medicine 04/18/23 Thermal Technician Relationship Specialty Start Date End Date Romario Man MD [address] [place] [address] PCP - General Family Medicine 04/18/23 Thermal Technician Relationship Specialty Start Date End Date Romario Man MD [address] [place] [address] PCP - General Family Medicine 04/18/23 Thermal Technician Relationship Specialty Start Date End Date Romario Man MD [address] [place] [phone] PCP - General Family Medicine 04/18/23 Thermal Technician Relationship Specialty Start Date End Date Romario Man MD [address] [place] [address] PCP - General Family Medicine 04/18/23 Thermal Technician Relationship Specialty Start Date End Date Romario Man MD [address] [place] [address] PCP - General Family Medicine 06/14/19 FOR [...] BE BASED ON THE PRIMARY CLINICAL RECORDS. [facility]. provides no warranty or guarantee of the accuracy or completeness of information in this document.
[2024-05-28] MEDS: HEPARIN SODIUM (PORCINE) 5,000 UNIT/ML VIAL 4000 UNIT IV (10:40)
[2024-05-28] MEDS: HEPARIN SODIUM,PORCINE/D5W 25,000 UNIT/500 ML IV.SOLN 17.418 UNIT IV (10:41)
[2024-05-28 10:42] LABS: INR 0.94; Partial Thromboplastin Time 28.6 sec (22.3-36.2)
[2024-05-28 10:43] LABS: Alanine Aminotransferase 31 U/L (16-63); Albumin Globulin Ratio 0.9; Albumin Level 3.9 g/dL (3.4-5.0); Alkaline Phosphatase 112 U/L (46-116); Aspartate Amino Transferase 23 U/L (15-37); BUN Creatinine Ratio 29.1; Bilirubin Total 0.7 mg/dL (0.2-1.0); Calcium 9.8 mg/dL (8.5-10.1); Carbon Dioxide 29.4 mmol/L (21.0-32.0); Chloride 98 mmol/L (98-107); Estimated GFR (African America >60 (>=60); Estimated GFR (Non-African Ame >60 (>=60); Globulin 4.3 g/dL; Glucose 96 mg/dL (74-106); Potassium 4.4 mmol/L (3.5-5.1); Sodium 135 mmol/L (136-145); Total Protein 8.2 g/dL (6.4-8.2)
[2024-05-28 10:53] LABS: Troponin I High Sensitivity 8.4 pg/mL (4.0-76.1)
--- NOTE | 2024-05-28 10:55 | XR_ITS ---
[address] [address] Patient Name: AJ MORA MRN: [id number] date: 1960 Sex: M Assigned Patient Location: ER Current Patient Location: ER Accession/Order Number: [id number] Exam Date: 05/28/2024 10:50 Report Date: 05/28/2024 11:06 At the request of: CAROLE CRAVEN Procedure: XR chest 1V EXAM: CHEST 1 VIEW HISTORY: cp TECHNIQUE: Chest, one view. COMPARISON: 05/24/2024 FINDINGS: Calcified right upper lobe granuloma. Lungs are clear. No focal consolidation, pleural effusion, or pneumothorax. Pulmonary vasculature is within normal limits. There are coronary artery stents. Heart size normal. XR/XR chest 1V IMPRESSION: 1. No acute cardiopulmonary disease. 2. Normal heart size with coronary artery stent. Electronically authenticated by: MARIA DOLORES HANNA Date: 05/28/2024 11:06
--- NOTE | 2024-05-28 11:08 | ED.CHESTPAI1 ---
HPI - Chest Pain General Chief Complaint: Chest Pain Stated Complaint: CLINIC REFERRAL Time Seen by Provider: 05/28/24 10:12 Source: patient Mode of arrival: walk-in Limitations: no limitations History of Present Illness HPI narrative: The patient is sent to us from the outpatient cardiology clinic by Dr. Marin for diagnosis of unstable angina and plan for transfer to [facility] for cardiac cath. The patient presented to us by private car he mentioned that he did not have any chest pain at the moment the last time he had it was 4 days ago on Friday. When the pain came it was radiating to the left arm associated with nausea and he mentioned that he have a history of coronary artery disease stent was placed in 2008 No active pain at the moment no other concerns Related Data Home Medications ?Medication ?Instructions ?Recorded ?Confirmed albuterol sulfate 90 mcg/actuation 1 inh inhalation Q6H 03/14/23 05/24/24 aerosol inhaler (ProAir HFA) aspirin 81 mg tablet,delayed 81 mg PO DAILY 03/14/23 05/24/24 release atorvastatin 40 mg tablet 40 mg PO DAILY 03/14/23 05/24/24 cholecalciferol (vitamin D3) 50 50 mcg PO DAILY 03/14/23 05/24/24 mcg (2,000 unit) capsule ferrous sulfate 325 mg (65 mg 325 mg PO BID 03/14/23 05/24/24 iron) tablet (Niels-Time) lisinopril 40 mg tablet 40 mg PO DAILY 03/14/23 05/24/24 meloxicam 15 mg tablet 15 mg PO DAILY 03/14/23 05/24/24 nitroglycerin 0.4 mg sublingual 0.4 mg sublingual Q5M PRN chest 03/14/23 05/24/24 tablet (Nitrostat) pain pantoprazole 40 mg tablet,delayed 40 mg PO DAILY 03/14/23 05/24/24 release (Protonix) pregabalin 100 mg capsule (Lyrica) 100 mg PO BID 03/14/23 05/24/24 ezetimibe 10 mg tablet 10 mg PO DAILY 05/24/24 05/24/24 isosorbide mononitrate 60 mg 60 mg PO DAILY 05/24/24 05/24/24 tablet,extended release 24 hr metoprolol succinate 100 mg 100 mg PO DAILY 05/24/24 05/24/24 tablet,extended release 24 hr (Toprol XL) Previous Rx's ?Medication ?Instructions ?Recorded oxycodone-acetaminophen 5 mg-325 1 tab PO TID PRN pain #90 tabs 11/10/23 mg tablet (Percocet) hydrochlorothiazide 25 mg tablet 25 mg PO DAILY #30 tabs 05/24/24 Allergies Allergy/AdvReac Type Severity Reaction Status Date / Time No Known Drug Allergies Allergy Verified 05/28/24 10:22 Review of Systems ROS Status of ROS 10 or more systems reviewed and unremarkable except as noted in history and below [facility] Medical History (Updated 05/28/24 @ 10:20 by Remedios Carlin MD) HLD (hyperlipidemia) ?E78.5 - Hyperlipidemia, unspecified (ICD-10) CAD (coronary artery disease) ?I25.10 - Atherosclerotic heart disease of [place] coronary artery without angina pectoris (ICD-10) Bilateral shoulder pain ?M25.511 - Pain in right shoulder (ICD-10) ?M25.512 - Pain in left shoulder (ICD-10) Aortic atherosclerosis ?I70.0 - Atherosclerosis of aorta (ICD-10) Hypertension ?I10 - Essential (primary) hypertension (ICD-10) Numbness and tingling ?R20.0 - Anesthesia of skin (ICD-10) ?R20.2 - Paresthesia of skin (ICD-10) Back pain ?M54.9 - Dorsalgia, unspecified (ICD-10) Neck pain ?M54.2 - Cervicalgia (ICD-10) Anemia ?D64.9 - Anemia, unspecified (ICD-10) Asthma ?J45.909 - Unspecified asthma, uncomplicated (ICD-10) Surgical History H/O heart artery stent ?Z95.5 - Presence of coronary angioplasty implant and graft (ICD-10) H/O laminectomy ?Z98.890 - Other specified postprocedural states (ICD-10) Family History (Updated 05/24/24 @ 11:18 by Franny Tineo) Father Family history of CHF (congestive heart failure) Family history of myocardial infarction Mother Family history of CHF (congestive heart failure) Social History (Updated 05/24/24 @ 11:27 by Franny Tineo) Within the past year, how often did you have a drink containing alcohol: 4 or more times a week Within the past year, how many standard drinks containing alcohol did you have on a typical day: 1 or 2 Within the past year, how often did you have six or more drinks on one occasion: never Total score: 0 Score interpretation: Questions 2 and 3 are 0. It can be assumed that the patient's drinking is below the recommended limits. However, please confirm the accuracy of the patient's alcohol intake over the last few months. 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 Highest level of school completed/degree received: high school graduate In a typical week, how many times do you talk on the telephone with family, friends, or neighbors: 3 or more times per week How often do you get together with friends or relatives: 3 or more times per week How often do you attend yazidi or congregation services: never Do you belong to any clubs or organizations such as yazidi groups unions, fraternal or athletic groups, or school groups: no Little interest or pleasure in doing things: not at all Feeling down, depressed, or hopeless: not at all Feel stressed/tense/nervous/anxious/difficulty sleeping: not at all Gender Identity: male Exam Narrative Exam Narrative: Nurses notes and vital signs reviewed and patient is not hypoxic. General: Well-appearing and in no apparent distress. Skin: Warm, dry, no pallor noted. No rash. Head: Normocephalic, atraumatic. Neck: Supple, non-tender. Eye: Pupils are equal, round and EOMI. No scleral icterus. Ears, Nose, Mouth, and Throat: TM are clear, no nasal mucosal hypertrophy. Oral mucosa is moist, no posterior oropharynx erythema, uvula is mid-line Cardiovascular: Regular Rate and Rhythm without murmur, gallop or rub. Respiratory: No accessory muscle use or respiratory distress. Lungs are clear to auscultation, no wheezing, rales or rhonchi Chest Wall: no tenderness Back: No midline thoracic or lumbar vertebral tenderness. No CVA tenderness Musculoskeletal: normal ROM, no calf or popliteal tenderness, no lower extremity edema/swelling GI: Abdomen is soft, non-distended. Normal bowel sounds. No masses appreciated. No tenderness to palpation. No rebound, guarding, or rigidity noted. Neurological: A&O x4. No cranial nerve dysfunction observed. No truncal ataxia. Moves all extremities. Sensation intact. Psychiatric: Cooperative and interactive. Normal mood and affect. Constitutional Vital Signs, click to edit/add: Last Vital Signs Temp 98.3 F 05/28/24 10:18 Pulse 61 05/28/24 10:50 Resp 14 05/28/24 10:50 BP 125/87 05/28/24 10:45 Pulse Ox 97 05/28/24 10:50 O2 Del Method Room Air 05/28/24 10:23 Course Vital Signs Vital signs: Vital Signs Pulse Oximetry 98 05/28/24 10:13 Temperature 98.3 F 05/28/24 10:18 Pulse Rate 61 05/28/24 10:50 Respiratory Rate 14 05/28/24 10:50 Blood Pressure 125/87 05/28/24 10:45 Pulse Oximetry 97 05/28/24 10:50 Oxygen Delivery Method Room Air 05/28/24 10:23 MDM - Chest Pain MDM Narrative Medical decision making narrative: The patient EKG in the ER showing sinus rhythm with a heart rate of 55 there is nonspecific changes of T wave inversion in lead aVL no STEMI changes The patient was started on heparin drip as a non-STEMI and unstable angina and also loaded with aspirin The patient transfer planning to [facility] started he does not have any active pain at the moment CBC chemistry showed no acute pathology and the patient case was discussed with and patient will be admitted under Dr. Orantes in [facility] Patient still pain-free Lab Data Labs: Lab Results 05/28/24 Range/Units 10:20 WBC 8.2 (4.0-11.0) 10^3/uL RBC 4.73 (4.70-6.10) 10^6/uL Hgb 15.2 (14.0-18.0) g/dL Hct 44.1 (42.0-54.0) % MCV 93.2 (80.0-94.0) fL MCH 32.1 (25.9-34.0) pg MCHC 34.5 (29.9-35.2) g/dL RDW 13.8 (11.0-15.0) % Plt Count 200 (150-450) 10^3/uL MPV 10.3 (9.5-13.5) fL Neut % (Auto) 62.0 (43.0-75.0) % Lymph % (Auto) 23.0 (20.5-60.0) % [place] % (Auto) 11.3 (1.7-12.0) % Eos % (Auto) 2.9 (0.9-7.0) % Baso % (Auto) 0.6 (0.2-2.0) % Neut # (Auto) 5.1 (1.4-6.5) 10^3/uL Lymph # (Auto) 1.9 (1.2-3.8) 10^3/uL [place] # (Auto) 0.9 H (0.3-0.8) 10^3/uL Eos # (Auto) 0.2 (0.0-0.7) 10^3/uL Baso # (Auto) 0.1 (0.0-0.1) 10^3/uL Abs Immat Gran (auto) 0.02 (0.00-0.03) 10^3/uL Imm/Tot Granulo (auto) 0.2 (0.0-0.5) % PT 10.0 (9.0-11.6) sec INR 0.94 APTT 28.6 (22.3-36.2) sec Sodium 135 L (136-145) mmol/L Potassium 4.4 (3.5-5.1) mmol/L Chloride 98 (98-107) mmol/L Carbon Dioxide 29.4 (21.0-32.0) mmol/L Anion Gap 12.0 BUN 25.0 H (7.0-18.0) mg/dL Creatinine 0.86 (0.70-1.30) mg/dL Est GFR ( Amer) >60 (>=60) Est GFR (Non-Af Amer) >60 (>=60) BUN/Creatinine Ratio 29.1 Glucose 96 (74-106) mg/dL Calcium 9.8 (8.5-10.1) mg/dL Total Bilirubin 0.7 (0.2-1.0) mg/dL AST 23 (15-37) U/L ALT 31 (16-63) U/L Alkaline Phosphatase 112 (46-116) U/L Troponin I High Sens 8.4 (4.0-76.1) pg/mL NT-Pro-B Natriuret Pep 244.0 (<=900.0) pg/mL Total Protein 8.2 (6.4-8.2) g/dL Albumin 3.9 (3.4-5.0) g/dL Globulin 4.3 g/dL Albumin/Globulin Ratio 0.9 Discharge Plan Discharge Chief Complaint: Chest Pain Clinical Impression: Angina pectoris, unstable Patient Disposition: [facility] Time of Disposition Decision: 12:54 Discharge location: [facility] Dr Orantes Condition: Good
[2024-05-28] MEDS: ASPIRIN 81 MG TAB.CHEW 324 MG PO (11:28)
== END 2024-05-28 14:20 | disposition short-term general hospital (02) ==
PROVIDERS: Emergency Provider Emergency Medicine; PCP Family Medicine
DX: I25.119 Atherosclerotic heart disease of native coronary artery with unspecified angina pectoris (principal); Z95.5 Presence of coronary angioplasty implant and graft
CPT/HCPCS: 36415; 71045; 80053; 83880; 84484; 85025; 85610; 85730; 93005; 96365; 96366; 96376; 99285; J1644

== ENCOUNTER 2024-06-24 11:24 | Outpatient (OUT) | payer OTHER, SELFPAY ==
[2024-06-25 15:10] LABS: Albumin 3.5 g/dL (2.9-4.4); Alpha-1-Globulin 0.2 g/dL (0.0-0.4); Alpha-2-Globulin 0.7 g/dL (0.4-1.0); Immunoglobulin A, Qn, Serum 308 mg/dL (61-437); Immunoglobulin G, Qn, Serum 943 mg/dL (603-1613); Immunoglobulin M, Qn, Serum 90 mg/dL (20-172); Protein, Total 6.4 g/dL (6.0-8.5)
== END 2024-06-24 11:25 | disposition home or self-care (01) ==
LOC: LAB 11:28
PROVIDERS: PCP Family Medicine
DX: G60.9 Hereditary and idiopathic neuropathy, unspecified (principal)
CPT/HCPCS: 36415; 82784; 84155; 84165; 86334

== ENCOUNTER 2024-06-30 13:59 | Outpatient (OUT) | payer OTHER, SELFPAY ==
--- OUTSIDE RECORDS SUMMARY | 2024-06-30 14:16 | XMS_ITS | CCD ---
Author Organization [facility] Care Team Providers Care Mule Rider Name Role Phone PHYSICIAN, DEFAULT Unavailable Unavailable PHYSICIAN, DEFAULT Unavailable Unavailable PHYSICIAN, DEFAULT Unavailable Unavailable PHYSICIAN, DEFAULT Unavailable Unavailable AHMAD, SHOWKAT Unavailable Unavailable AHMAD, SHOWKAT Unavailable Unavailable REINECK, MELVI Unavailable Unavailable CANTU, MARY Unavailable Unavailable KAKIRILL, AMEER Unavailable Unavailable Romario Man Primary Care Provider [phone] Magda, Romario Bloom Primary Care Provider Romario Man MD Primary Care Provider MAGDA, ROMARIO Primary Care Physician MAGDA PROVIDERROMARIO Referring Unavailab le NILL, Julian Davis Attending Unavailable NILL, Julian [...] Unavailable MAGDA, DR ROMARIO Waddell Admitting Unavailable NADERER, DR [...] IBRAHIM ., DR NELSON Neal Admitting Unavailable NADERESusan, DR ROMARIO Waddell Primary [...] Attending Unavailable Unavailable Primary Care Provider Unavailnir Man MD, Romario Primary Care Provider HERNANDEZ, [...] Referring Unavailable HERNANDEZ, JENNIE S Attending Unavailable [facility] Primary Care Unavailable SELF, SELF Referring [...] MAN Primary Care UnavailFANY Toney Consulting Unavailable IACOB KENDELL Admitting Unavailable IACOB, KENDELL Attending Unavailable NADIA FITZPATRICK Attending Unavailable ROMARIO MANONY Primary Care UnavailROMARIO Gardner Attending Unavailable Rolan DRUMMOND, Mo Pike Attending Unavailable Rolan DRUMMOND, Mo Pike Attending Unavailable HORANI, CASEY Referring Unavailable BRITTANY, SYDNEY T Referring Unavailable BRITTANY, SYDNEY T Referring Unavailable BRITTANY, SYDNEY T Referring Unavailable ELIEL MARIN Attending Unavailable LISA MAYA Attending Unavailable DAVIDSON SHARP Attending Unavailable CARRILLO, CASEY Admitting Unavailable ELIEL MARIN Referring Unavailable BRITTANY, SYDNEY T Attending Unavailable ELIEL MARIN Attending Unavailable SELF, SELF Referring Unavailable JENN MOHRAR Attending Unavailable ROMARIO MAN Primary Care Unavailable JENNIE HERNANDEZ Referring Unavailable AHCASEY ALLEN Attending Unavailable ROMARIO MAN Primary Care Unavailable Allergies Allergy Classification Reported Allergen(s) Allergy Type Date of Onset Reaction(s) Facility (1 source) No Known Medication Allergies; Translations: [No Known Medication Allergies] Propensity to adverse reactions (disorder) [facility] Repository (1 source) ranolazine; Translations: [RANOLAZINE] Drug Allergy [address] [place] [address] Repository Medications Current Medications Medication Drug Class(es) Dates Sig (Normalized) Sig (Original) Acetaminophen (10 sources) Start: 12-30-2022 acetaminophen (TYLENOL) tablet 650 mg Start: 09-12-2019 take 2 tablets by mo [facility] every eight hours as needed for pain acetaminophen (TYLENOL) 325 MG tablet Take 2 tablets by mouth every 8 hours as needed for Pain 30 tablet 0 09/12/2019 Active acetaminophen 325 mg / HYDROcodone bitartrate 5 mg oral tablet (6 sources) Opioid Agonist Start: 09-18-2023 End: 09-23-2023 take 1 tablet by mouth four times daily as needed for pain hydroCODone-acetaminophen 5-325 MG tablet Indications: Sacroiliitis Take 1 tablet by mouth 4 times daily as needed for Moderate Pain for up to 5 days. 20 tablet 09/18/2023 Active Start: 09-18-2023 End: 09-18-2023 take 1-2 tablets by mouth every four hours as needed hydroCODone-acetaminophen (NORCO) 5-325 MG per tablet 1-2 tablet Start: 05-23-2022 take 1 tablet by alissa twice daily [place] 5/325 Tab 1 tab(s), Oral, BID, Refill(s) 0 Start Date: 05/23/22 Status: Ordered Start: 09-12-2019 End: 09-12-2019 HYDROcodone-acetaminophen (N ORCO) 5-325 MG per tablet 2 tablet Albuterol (13 sources) beta2-Adrenergic Agonist Start: 2023 albut rich (PROVENTIL) (2.5 MG/3ML) 0.083% nebulizer solution 15 mg Start: 05-23-2022 Albuterol 108 (90 Base) MCG/ACT Aero Soln inhaler Inhale 2 puffs. 05/23/2022 Active Start: 05-23-2022 take 2 puff(s) by in halation every four hours as needed for wheezing albuterol sulfate HFA (PROVENTIL;VENTOLIN;PROAIR) 108 (90 Base) MCG/ACT inhaler Inhale 2 puffs into the lungs every 4 hours as needed for Wheezing or Shortness of Breath 0 05/23/2022 Active albuterol HFA 90 mcg/inh [...] by mouth once daily in the morning amLODIPine 10 MG tablet Take 1 tablet by mouth daily every morning. 02/17/2023 Active atorvastatin 20 mg oral tablet (20 sources) HMG-CoA Reductase Inhibitor Start: 12-09-2022 take 1 tablet by mouth once daily in the morning Atorvastatin 20 MG tablet Take 1 tablet by mouth daily every morning. 12/09/2022 Active Start: 01-13-2018 End: 12-31-2022 take 1 tablet by mouth at bedtime atorvastatin 40 mg Tab 40 mg = 1 tab(s), Oral, Bedtime, Refills(s) 0 Start Date: 05/23/22 Status: Ordered cholecalciferol 0.05 mg oral tablet (13 sources) Vitamin D Start: 12-15-2022 take 1 tablet by mouth once daily Cholecalciferol (Vitamin D3) 50 MCG (1999 UT) tablet Take 1 tablet by mouth daily. 01/21/2023 Active dicyclomine hydrochloride 10 mg oral capsule (5 sources) Anticholinergic Start: 07-18-2020 End: 03-09-2021 take 1 capsule by mouth three times daily as needed for pain dicyclomine (BENTYL) 10 MG capsule Take 1 capsule by mouth 3 times daily as needed (abdominal pain) 40 capsule 3 07/18/2020 03/09/2021 Discontinued ferrous sulfate 325 mg oral tablet (16 sources) Start: 11-27-2022 take 1 tablet by mouth twice daily SV Iron 325 MG tablet Take 1 tablet by mouth 2 times daily. 01/30/2023 Active Start: 05-23-2022 take 1 tablet [...] (20 sources) Nitrate Vasodilator Start: 10-12-2022 take 2 tablets by mouth once daily Isosorbide mononitrate 60 MG Tab SR 24 HR tablet XL Take 2 tablets by mouth daily. 01/20/2023 Active Start: 01-13-2018 End: 12-30-2022 take [...] 01/01/2023 Active lisinopril 20 mg oral tablet (16 sources) Angiotensin Converting Enzyme Inhibitor Start: 12-30-2022 lisinopril (PRINIVIL;ZESTRIL) tablet 40 mg Start: 12-04-2022 take 1 tablet by alissa th once daily lisinopril 40 MG tablet Take 1 tablet by mouth daily. 12/04/2022 Active Start: 05-23-2022 take 1 tablet by alissa th once daily lisinopril 40 mg Tab 40 mg = 1 tab(s), Oral, Daily, Refills(s) 0 Start Date: 05/23/22 Status: Ordered 24 hr metoprolol succinate 25 mg extended release oral tablet (20 sources) beta-Adrenergic Sarah Start: 01-20-2023 Metopr olol succinate 25 MG tablet XL 01/20/2023 Active Start: 10-19-2022 take 1 tablet by alissa th once daily Metoprolol succinate 100 MG tablet [...] 1 tablet by mouth 2 times daily. 01/13/2023 Active Start: 05-31-2022 take 1 tablet by alissa th twice daily Protonix 40 mg Tab-DR 40 mg = 1 tab(s), Oral, BID, # 90 tab(s), Refills(s) 3, Pharmacy: [id number], 167.6, cm, 05/31/22 14:31:00 EDT, Height/Length Dosing, 72.8, kg, 05/31/22 14:31:00 EDT, Weight Dosing Start Date: 05/31/22 Status: Ordered Start: 07-18-2020 End: 03-09-2021 take 2 tablets by mouth once daily pantoprazole (PROTONIX) 20 MG tablet Take 2 tablets by mouth daily 30 tablet 0 07/18/2020 03/09/2021 Discontinued pregabalin 50 mg oral capsule (15 sources) Start: 01-20-2023 take 2 capsules by mouth twice daily Pregabalin 50 MG capsule Take 2 capsules by mouth 2 times daily. 01/20/2023 Active Start: 12-30-2022 take 1 capsule by mo ut twice daily Pregabalin 50 MG capsule Take 1 capsule by mouth 2 times daily. 0 01/20/2023 Active End: 12-30-2022 take 1 capsule by mouth [...] (GI COCKTAIL) aspirin 81 mg chewable tablet (17 sources) Platelet Aggregation Inhibitor, Nonsteroidal Anti-inflammatory Drug Start: 12-30-2022 aspirin chewable tablet 324 mg Start: 06-14-2019 aspirin tablet 325 mg Start: 01-14-2018 take 1 tablet by alissa th once daily aspirin 81 MG chewable tablet Take 1 tablet by mouth daily 30 tablet 3 01/14/2018 Active take 1 tablet by alissa th once daily, then take 1 tablet by mouth once daily aspirin, [id number], tablet Take 1 tablet by mouth daily. Take 1 tablet (total dose= 81mg) by mouth daily. Return bottle(s) & unused medication at your next visit. Active take 1 tablet by alissa th once daily, then take 1 tablet by mouth once daily aspirin, [id number], tablet Take 1 tablet by mouth daily. [...] TOTAL OF 3 DOSES IN 15 MINUTES 11/26/2022 Active Start: 01-13-2018 nitroGLYCERIN (NITROSTAT) 0.4 [...] injec tion 60 mg polyethylene glycol 3350 96604 mg powder for oral solution (1 source) [...] 30 millicurie tiZANidine 4 mg oral tablet (14 sources) Central alpha-2 Adrenergic Agonist Start: 05-23-2022 Zanaflex Refills(s) 0 Start Date: 05/23/22 Status: Ordered Start: 09-12-2019 take 1 tablet by alissa th every eight hours as needed for pain tiZANidine (ZANAFLEX) 4 MG tablet Take 1 tablet by mouth every 8 hours as needed (Neck pain) 30 tablet 0 09/12/2019 Active tiZANidine HCl ( ZANAFLEX PO) Take by mouth as needed. Active tiZANidine HCl ( ZANAFLEX PO) Take [...] intermittent asthma, uncomplicated] Onset: 01-10-2018 01-10-2018 Chronic Cardiac dysrhythmias (2 sources) Palpitations; Translations: [Palpitations] Onset: 02-11-2024 Episodic Coronary atherosclerosis and other heart disease (20 sources) Unstable angina; Translations: [Preinfarction syndrome] Onset: 01-10-2018 01-13-2018 Chronic Coronary atherosclerosis and other heart disease (2 sources) Presence of coronary angioplasty implant and graft; Translations: [Presence of coronary angioplasty implant and graft] Onset: 05-28-2024 Episodic Deficiency and other anemia (3 sources) Iron deficiency anemia; Translations: [Iron deficiency anemia, unspecified] Onset: 05-31-2022 Episodic Disorders of lipid metabolism (6 sources) Hyperlipidemia, unspecified; Translations: [Dyslipidemia] Onset: 07-01-2022 [...] disorders (2 sources) Depressive disorder 05-23-2022 Chronic Nonspecific chest pain (8 sources) Chest pain; Translations: [Chest pain, unspecified] Onset: 12-30-2022 Episodic Nutritional deficiencies (2 sources) Vitamin D deficiency [...] unspecified] 06-10-2023 Chronic Other nervous system disorders (2 sources) Disorder of the peripheral nervous system; Translations: [Hereditary and idiopathic neuropathy, unspecified] 08-14-2023 Chronic Other nervous system disorders (2 sources) Hereditary and idiopathic neuropathy, unspecified; Translations: [Hereditary and idiopathic neuropathy, unspecified] Onset: 06-24-2024 Chronic Other nervous system disorders (2 sources) Numbness of lower limb ; Translations: [Anesthesia of skin] 02-25-2023 Episodic Other nervous system disorders (2 sources) Hyperreflexia; Translations: [Abnormal reflex] 08-14-2023 Episodic Other nervous system disorders (2 sources) Abnormal reflex; Translations: [Abnormal reflex] Onset: 06-24-2024 Episodic Other non-traumatic joint disorders (1 source) Shoulder pain; Translations: [Chronic pain of both shoulders] Episodic Other nutritional; endocrine; and metabolic disorders (2 sources) Overweight in adulthood with body mass index of 25 or more but less than 30 05-31-2022 Episodic Peripheral and visceral atherosclerosis (1 source) Peripheral vascular disease; Translations: [Other specified peripheral vascular diseases (HCC)] Chronic Residual codes; unclassified (2 sources) Other specified postprocedural states; Translations: [Other specified postprocedural states] Onset: 08-13-2023 Episodic Spondylosis; intervertebral disc disorders; other back [...] Weakness; Translations: [Other fatigue] Onset: 04-03-2022 Episodic Other aftercare (1 source) 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; Translations: [DETENTION CURRENT USE OF ASPIRIN] Onset: 07-01-2022 Episodic Other aftercare (1 source) Other group home (current) drug therapy; Translations: [OTH DETENTION CURRENT DRUG THERAPY] Onset: 07-01-2022 Episodic Other [...] sources) Pain; Translations: [Pain] Onset: 02-25-2023 Episodic Residual codes; unclassified (2 sources) Localized edema; Translations: [Localized edema] Onset: 02-11-2024 Episodic Unclassified (1 source) VERTEBROGENIC LOW BACK PAIN; Translations: [VERTEBROGENIC LOW BACK PAIN] Onset: 12-18-2022 Unclassified (1 source) LOW BACK PAIN, UNSPECIFIED; Translations: [LOW BACK PAIN, UNSPECIFIED] Onset: 08-22-2022 Results Test Name Value Interpretation Reference Range Facility 37on 06-16-2024 37 Increase Isosorbide/ Imdur to 120 mg daily ( currently you have 60 mg tabs at home) Resume Atorvastatin at 40 mg daily Normal [facility] Office Visiton 06-16-2024 Follow-up visit [id number] Dorothea Alva 1960 M Date Provider Department Ferdinand 06/16/2024 LISA ESTRADA VALENCIA Yessy Eugenio Family History Problem Relation Age of Onset Coronary artery disease Mother Coronary artery disease Father Family Status - Relation Status Age at Mother Father Level of Service:46614 [place] OFFICE/OUTPATIENT ESTABLISHED MOD MDM 30 MIN Normal [facility] 06-04-2024 36 PT INFORMED [facility] 06-01-2024 36 Post Discharge Call Good morning, I am Priscilla Padilla RN a lead nurse from [facility]. I am calling you to follow up on your stay with us and make sure all of your questions have been answered. You will be receiving a survey either electronic or via mail and we always aim to receive 9???s and 10???s. If there is any reason you feel as though you cannot give us these scores please indicate that now. RN attempted phone call at [employer] at this time. Patient Name Noel Alva Date 06/01/[address] [facility] Telephoneon 06-01-2024 Telephone [id number] Dorothea [facility] 1960 [facility] Provider Department Ferdinand 06/01/2024 PRISCILLA GALLARDO [facility] Family History Problem Relation Age of Onset Coronary artery disease Mother Coronary artery disease Father Family Status - Relation Status Age at Mother Father Reason for Visit and Comments: Hospital Follow-up [832] [facility] 05-31-2024 30 The patient is Moder ately Stable - Low risk of patient condition declining or worsening The patient's goals for the shift include rest and comfort The clinical goals for the shift include Discharge Barriers to progression include awaiting cath and Echo results Recommendations to address these barriers include waiting for results and discharge is everything looks good. [facility] 30 Daily Case Managemen t Update Multidisciplinary rounds have been completed. Barriers to Discharge: Pending clinical course and improvement in clinical condition. Patient underwent cardiac catheterization and echocardiogram today; pending final recommendations. Discharge plan is home when medically ready. Diet: Dietary Orders (From admission, onward) Start Ordered 05/31/24 1019 Regular Diet Heart Healthy/HTN, CABG,Stroke, (2gNA, low fat, low cholesterol) Diet effective now Question Answer Comment Room Service? Yes Fat restriction: Heart Healthy/HTN, CABG,Stroke, (2gNA, low fat, low cholesterol) 05/31/24 1019 Physician Expected Discharge Date: 06/01/2024 Discharge Delays: PT Six Click Score: 22 OT Six Click Score: PT Recommendations: OT Recommendations: New Consults: Normal [facility] ANESon 05-31-2024 ANES ------- Attestation signed by Jonn Connell MD at 05/31/2024 8:23 AM Jonn Connell MD, MPH, [facility], [facility], [facility] Interventional Cardiology Pager Email: [email or web address] Patient: Noel Alva Procedure Information Date/Time: 05/31/24 0830 Procedure: Coronary angiography Location: [facility] SORTER 3 / [facility] (Cath) Providers: Jonn Connell MD Clinical information reviewed: Tobacco Allergies Meds Med Hx Surg Hx Fam Hx Soc Hx Physical Exam Airway Mallampati: II TM distance: >3 FB Neck ROM: full Cardiovascular Rhythm: regular Rate: normal (-) murmur Dental Pulmonary (-) decreased breath sounds, wheezes, rales Abdominal Abdomen: soft Bowel sounds: normal Anesthesia Plan ASA 3 Anesthetic plan and risks discussed with patient. Use of blood products discussed with patient who consented to blood products. Plan discussed with attending and fellow. Additional Equipment Requests Normal [facility] ANTI-XA (HEPARIN LEVEL)on HEPARIN UNFRACTIONATED (U/ML) IN PPP BY CHROMOGENIC METHOD 0.28 IU/mL Low 0.3-0.7 [facility] Comment on above: Result Comment: [place] roxaban and Apixaban will interfere with the anti Xa assay used to monitor UFH and LMWH. Performed By: #### L [id number] ####[facility] ([facility])[address] [place] [address] HEPARIN UNFRACTIONATED (U/ML) IN PPP BY CHROMOGENIC METHOD 0.29 IU/mL Low 0.3-0.7 [facility] Comment on above: Result Comment: [place] roxaban and Apixaban will interfere with the anti Xa assay used to monitor UFH and LMWH. Performed By: #### L [id number] ####[facility] ([facility])[address] [place] [address] CBCon 05-31-2024 Erythrocyte distribution width (RBC) [Ratio] 13.6 % Normal 11.5-15.0 [facility] Comment on above: Performed By: #### L [id number] ####[facility] ([facility])[address] [place] [address] ERYTHROCYTE MEAN CORPUSCULAR HEMOGLOBIN CONCENTRATION (G/DL) BY AUTOMATED 33.9 g/dL Normal 32.0-35.0 [facility] Comment on above: Performed By: #### L [id number] ####[facility] ([facility])[address] [place] [address] Hematocrit (Bld) [Volume fraction] 40.4 % Normal 39.0-55.0 [facility] Comment on above: Performed By: #### L [id number] ####[facility] ([facility])[address] [place] [address] Hemoglobin (Bld) [Mass/Vol] 13.7 g/dL Normal 13.0-17.0 [facility] Comment on above: Performed By: #### L [id number] ####[facility] [place] [address] MCH (RBC) [Entitic mass] 31.4 pg Normal 27.0-33.0 [facility] Comment on above: Performed By: #### L [id number] ####[facility] [place] [address] MCV (RBC) [Entitic vol] 92.7 fL Normal 82.0-98.0 [facility] Comment on above: Performed By: #### L [id number] ####[facility] ([facility])[address] [place] [address] PLATELETS (10*3/UL) IN BLOOD AUTOMATED COUNT 171 10*3/uL Normal 150-400 [facility] Comment on above: Performed By: #### Nola [id number] ####[facility] ([facility])[address] [place] [address] RBC (Bld) [#/Vol] 4.36 10*6/uL Normal 4.20-5.70 [facility] Comment on above: Performed By: #### L [id number] ####[facility] ([facility])[address] [place] [address] WBC (Bld) [#/Vol] 7.85 10*3/uL Normal 4.00-10.60 [facility] Comment on above: Performed By: #### Nola [id number] ####[facility] ([facility])[address] [place] [address] [facility] 05-31-2024 ------- Attestation signed by Jonn Connell MD at 05/31/2024 8:23 AM Jonn Connell MD, MPH, FACC, [facility], [facility] Interventional Cardiology Pager Email: [email or web address] H&P reviewed. The patient was seen and examined. Noel Alva is a 63 year old male patient who has past history remarkable for coronary artery disease and stenting of LAD in 2004, he presented complaining with chest pain on exertion as well as at rest reported as squeezing sensation relieved by nitroglycerin, he was admitted for unstable angina and was started on heparin infusion, labs and imaging reviewed, we will proceed with diagnostic coronary angiography. Risks, benefits, and alternatives were discussed with patient; he understands and wishes to proceed. Normal [facility] ANTI-XA (HEPARIN LEVEL)on HEPARIN UNFRACTIONATED (U/ML) IN PPP BY CHROMOGENIC METHOD 0.25 IU/mL Low 0.3-0.7 [facility] Comment on above: Result Comment: [place] roxaban and Apixaban will interfere with the anti Xa assay used to monitor UFH and LMWH. Performed By: #### L [id number] #### [facility] ([facility]) [address] [place] [address] HEPARIN UNFRACTIONATED (U/ML) IN PPP BY CHROMOGENIC METHOD 0.23 IU/mL Low 0.3-0.7 [facility] Comment on above: Result Comment: [place] roxaban and Apixaban will interfere with the anti Xa assay used to monitor UFH and LMWH. Performed By: #### L [id number] ####[facility] ([facility])[address] [place] [address] HEPARIN UNFRACTIONATED (U/ML) IN PPP BY CHROMOGENIC METHOD 0.22 IU/mL Low 0.3-0.7 [facility] Comment on above: Result Comment: [place] roxaban and Apixaban will interfere with the anti Xa assay used to monitor UFH and LMWH. Performed By: #### L [id number] ####[facility] ([facility])[address] [place] [address] BASIC METABOLIC PANELon 08-2 Anion gap [Moles/Vol] 12 mmol/L Normal 7-20 [facility] Comment on above: Performed By: #### L [id number] ####[facility] ([facility])[address] [place] [address] Calcium [Mass/Vol] 9.1 mg/dL Normal 8.6-10.3 [facility] Comment on above: Performed By: #### L [id number] ####[facility] ([facility])[address] [place] [address] Chloride [Moles/Vol] 101 mmol/L Normal 98-107 [facility] Comment on above: Performed By: #### L [id number] ####[facility] ([facility])[address] [place] [address] CO2 [Moles/Vol] 26 mmol/L Normal 21-31 [facility] Comment on above: Performed By: #### L [id number] ####[facility] ([facility])[address] [place] [address] Creatinine [Mass/Vol] 0.71 mg/dL Normal 0.70-1.30 [facility] Comment on above: Performed By: #### L [id number] ####[facility] ([facility])[address] [place] [address] GLOMERULAR FILTRATION RATE ML/MIN/1.73 SQ M.PREDICTED 103.1 mL/min/1.73m*2 Normal >60.0 [facility] Comment on above: Result Comment: The [facility]???s estimated glomerular filtration rate (eGFR) will no longer include consideration of race in its calculation. The National Kidney Foundation???s eGFR Task Force developed new recommendations for the estimation of the glomerular filtration rate in the [place] They recommend immediate implementation of the new equation refit without the race variable in all laboratories because the calculation does not include race. In addition to not including race in the calculation and reporting, it included diversity in its development, and has acceptable performance characteristics and potential consequences that do not disproportionately affect any one group of individuals. Performed By: #### L [id number] ####[facility] ([facility])[address] [place] [address] Glucose [Mass/Vol] 105 mg/dL High 70-100 [facility] Comment on above: Performed By: #### L [id number] ####[facility] ([facility])[address] [place] [address] Potassium [Moles/Vol] 4.1 mmol/L Normal 3.5-5.1 [facility] Comment on above: Performed By: #### L [id number] ####[facility] ([facility])[address] [place] [address] Sodium [Moles/Vol] 135 mmol/L Low 136-145 [facility] Comment on above: Performed By: #### L [id number] ####[facility] ([facility])[address] [place] [address] Urea nitrogen [Mass/Vol] 22 mg/dL Normal 7-25 [facility] Comment on above: Performed By: #### L [id number] ####[facility] ([facility] [facility] [place] [address] UREA NITROGEN/CREATININE (MASS RATIO) IN SER/PLAS 31.0 Normal [facility] Comment on above: Performed By: #### L [id number] ####[facility] ([facility] [place] [address] CBCon 05-30-2024 Erythrocyte distribution width (RBC) [Ratio] 13.8 % Normal 11.5-15.0 [facility] Comment on above: Performed By: #### L [id number] ####[facility] ([facility] [place] [address] ERYTHROCYTE MEAN CORPUSCULAR HEMOGLOBIN CONCENTRATION (G/DL) BY AUTOMATED 32.7 g/dL Normal 32.0-35.0 [facility] Comment on above: Performed By: #### L [id number] ####[facility] ([facility] [place] [address] Hematocrit (Bld) [Volume fraction] 43.1 % Normal 39.0-55.0 [facility] Comment on above: Performed By: #### L [id number] ####[facility] ([facility] [place] [address] Hemoglobin (Bld) [Mass/Vol] 14.1 g/dL Normal 13.0-17.0 [facility] Comment on above: Performed By: #### L [id number] ####[facility] ([facility] [place] [address] MCH (RBC) [Entitic mass] 31.5 pg Normal 27.0-33.0 [facility] Comment on above: Performed By: #### L [id number] ####[facility] ([facility] [place] [address] MCV (RBC) [Entitic vol] 96.4 fL Normal 82.0-98.0 [facility] Comment on above: Performed By: #### L [id number] ####[facility] ([facility] [place] [address] PLATELETS (10*3/UL) IN BLOOD AUTOMATED COUNT 181 10*3/uL Normal 150-400 [facility] Comment on above: Performed By: #### L [id number] ####[facility] ([facility] [place] [address] RBC (Bld) [#/Vol] 4.47 10*6/uL Normal 4.20-5.70 [facility] Comment on above: Performed By: #### L [id number] ####[facility] ([facility] [place] [address] WBC (Bld) [#/Vol] 7.33 10*3/uL Normal 4.00-10.60 [facility] Comment on above: Performed By: #### L [id number] ####[facility] ([facility])[address] [place] [address] MAGNESIUMon 05-30-2024 Magnesium [Mass/Vol] 1.8 mg/dL Low 1.9-2.7 [facility] Comment on above: Performed By: #### L [id number] ####[facility] ([facility])[address] [place] [address] 30on 05-29-2024 30 Problem: Pain - Adul t Goal: Verbalizes/displays adequate comfort level or baseline comfort level Outcome: Progressing Flowsheets (Taken 05/29/20241899) Verbalizes/displays adequate comfort level or baseline comfort level: Encourage patient to monitor pain and request assistance Assess pain using appropriate pain scale Administer analgesics based on type and severity of pain and evaluate response Implement non-pharmacological measures as appropriate and evaluate response Consider cultural and social influences on pain and pain management Notify Licensed Independent Practitioner if interventions unsuccessful or patient reports new pain Problem: Safety - Adult Goal: Free from fall injury Outcome: Progressing Problem: Discharge Planning Goal: Discharge to home or other facility with appropriate resources Outcome: Progressing Flowsheets (Taken 05/29/20241899) Discharge to home or other facility with appropriate resources: Identify barriers to discharge with patient and caregiver Arrange for needed discharge resources and transportation as appropriate Identify discharge learning needs (meds, wound care, etc) Refer to discharge planning if patient needs post-hospital services based on physician order or complex needs related to functional status, cognitive ability or social support system Problem: Chronic Conditions and Co-morbidities Goal: Patient's chronic conditions and co-morbidity symptoms are monitored and maintained or improved Outcome: Progressing Flowsheets (Taken 05/29/20241899) Care Plan - Patient's Chronic Conditions and Co-Morbidity Symptoms are Monitored and Maintained or Improved: Monitor and assess patient's chronic conditions and comorbid symptoms for stability, deterioration, or improvement Collaborate with multidisciplinary team to address chronic and comorbid conditions and prevent exacerbation or deterioration Update acute care plan with appropriate goals if chronic or comorbid symptoms are exacerbated and prevent overall improvement and discharge The patient is Moderately Stable - Low risk of patient condition declining or worsening The patient's goals for the shift include rest and comfort The clinical goals for the shift include VSS, no chest pain, hemodynamically stable. Normal [facility] 30 The patient is Moder ately Stable - Low risk of patient condition declining or worsening The patient's goals for the shift include rest and comfort The clinical goals for the shift include VSS, no chest pain, hemodynamically stable. Barriers to progression include diagnosis of CAD. Recommendations to address these barriers include monitoring for exacerbations to chest pain and completing heart catheterization procedure to look for CA blockages. Normal [facility] ANTI-XA (HEPARIN LEVEL)on HEPARIN UNFRACTIONATED (U/ML) IN PPP BY CHROMOGENIC METHOD 0.33 IU/mL Normal 0.3-0.7 [facility] Comment on above: Order Comment: Check anti-Xa level every 6 hours while on heparin infusion, or per protocol. Result Comment: Deborah roxaban and Apixaban will interfere with the anti Xa assay used to monitor UFH and LMWH. Performed By: #### L [id number] #### [facility] ([facility] [address] [place] [address] HEPARIN UNFRACTIONATED (U/ML) IN PPP BY CHROMOGENIC METHOD 0.38 IU/mL Normal 0.3-0.7 [facility] Comment on above: Order Comment: Check anti-Xa level every 6 hours while on heparin infusion, or per protocol. Result Comment: Deborah roxaban and Apixaban will interfere with the anti Xa assay used to monitor UFH and LMWH. Performed By: #### L [id number] #### [facility] ([facility] [address] [place] [address] CBCon 05-29-2024 Erythrocyte distribution width (RBC) [Ratio] 14.0 % Normal 11.5-15.0 [facility] Comment on above: Performed By: #### L [id number] ####[facility] ([facility] [place] [address] ERYTHROCYTE MEAN CORPUSCULAR HEMOGLOBIN CONCENTRATION (G/DL) BY AUTOMATED 34.0 g/dL Normal 32.0-35.0 [facility] Comment on above: Performed By: #### L [id number] ####[facility] ([facility] [place] [address] Hematocrit (Bld) [Volume fraction] 42.0 % Normal 39.0-55.0 [facility] Comment on above: Performed By: #### L [id number] ####[facility] [place] [address] Hemoglobin (Bld) [Mass/Vol] 14.3 g/dL Normal 13.0-17.0 [facility] Comment on above: Performed By: #### L [id number] ####[facility] ([facility] [place] [address] MCH (RBC) [Entitic mass] 31.5 pg Normal 27.0-33.0 [facility] Comment on above: Performed By: #### L [id number] ####[facility] ([facility] [place] [address] MCV (RBC) [Entitic vol] 92.5 fL Normal 82.0-98.0 [facility] Comment on above: Performed By: #### L [id number] ####[facility] ([facility] [place] [address] PLATELETS (10*3/UL) IN BLOOD AUTOMATED COUNT 177 10*3/uL Normal 150-400 [facility] Comment on above: Performed By: #### L [id number] ####[facility] ([facility] [place] [address] RBC (Bld) [#/Vol] 4.54 10*6/uL Normal 4.20-5.70 [facility] Comment on above: Performed By: #### L [id number] ####[facility] ([facility] [place] [address] WBC (Bld) [#/Vol] 6.44 10*3/uL Normal 4.00-10.60 [facility] Comment on above: Performed By: #### L [id number] ####[facility] ([facility] [place] [address] CONSULTon 08-24-2024 CONSULT ------- Attestation signed by Kristian Palumbo MD at 05/29/2024 3:28 PM I personally saw and examined the patient on the same date of service as resident/fellow Dr Vann. I discussed the findings and therapeutic plan with the resident/fellow Dr Vann. I agree with the documentation, except for any edits/updates below. Teaching Physician's Revisions: None In summary the patient had prior history of CAD and stenting of the LAD in 2004, in 2017 had a heart catheterization which showed minimal CAD and patent LAD stent. He also has normal stress nuclear test September 2023 without evidence of ischemia. He presented yesterday to the cardiology office in [place] reporting recurrent chest pain on exertion as well as at rest described as squeezing sensation and relieved by nitroglycerin sublingual consistent with unstable angina therefore he was directly admitted to the hospital. EKG yesterday showed T wave inversion in anterior leads consistent with anterior ischemia. Repeat EKG today was normal. Troponin has been negative x 3. He was started on heparin IV infusion. He is also on aspirin, metoprolol, statin and Imdur. He states that he did not have chest pain over night. He denies any shortness of breath or any other symptoms. Plan is to continue current medical treatment. The patient is scheduled to have cardiac catheterization on Friday. Also we will obtain an echocardiographic study Kristian Palumbo MD, [facility] Cardiology Consult Note Reason for Consult: Chest pain HPI: Noel Alva is a 63 y.o. male patient is presenting as a direct transfer from [facility]. Past medical history includes: CAD HTN HLD Patient saw Dr. Marin yesterday at [facility]. Patient reported that he has been experiencing intermittent diaphoresis episodes, worse with exertion, associated with mild chest pain responding to sublingual nitroglycerin. He mentioned it is similar to the symptoms he experienced when he had coronary artery disease stenting in 2005. Patient was sent to the ED at [place] for further workup. High sensitivity troponin level 1x was normal. Patient was started on heparin drip and transferred to our facility. Patient was seen and examined. He denies any active chest pain, nausea, vomiting or diaphoresis. Troponin 2x negative. EKG T wave inversions in the anterior leads. Cardiology ROS: GENERAL: Denies fever, chills, night sweats, weight loss. CARDIOVASCULAR: Refer to HPI RESPIRATORY: Denies SOB, coughing, wheezing GI: Denies abdominal pain, nausea/vomiting. PSYCH: Denies anxiety. Past Medical History He has a past medical history of Coronary artery disease, Hypertension, and PVD (peripheral vascular disease) ([facility] Surgical History He has a past surgical history that includes Cardiac catheterization; Coronary stent placement; and Back surgery. Social History He reports that he has never smoked. He has never used smokeless tobacco. He reports current alcohol use of about 4.0 standard drinks of alcohol per week. No history on file for drug use. Family History Family History Problem Relation Name Age of Onset Coronary artery disease Mother Coronary artery disease Father Allergies Patient has no known allergies. Medications Medications Prior to Admission Medication Sig Dispense Refill Last Dose albuterol 90 mcg/actuation inhaler Inhale 2 puffs every 6 (six) hours if needed for wheezing. 05/27/2024 aspirin 81 mg chewable tablet Chew 1 tablet every day by oral route. 05/28/2024 atorvastatin (Lipitor) 20 mg tablet Take 1 tablet (20 mg) by mouth in the morning. (Patient taking differently: Take 40 mg by mouth in the morning.) 90 tablet 3 05/27/2024 cholecalciferol (Vitamin D-3) 50 MCG (1999 UT) tablet Take 1 tablet by mouth in the morning. 05/27/2024 ezetimibe (Zetia) 10 mg tablet Take 1 tablet (10 mg) by mouth in the morning. 90 tablet 3 05/27/2024 ferrous sulfate 325 (65 Fe) MG tablet Take 325 mg by mouth two times daily. 05/27/2024 hydroCHLOROthiazide (HYDRODiuril) 25 mg tablet Take 25 mg by mouth in the morning. 05/27/2024 isosorbide mononitrate ER (Imdur) 60 mg 24 hr tablet Take 1 tablet (60 mg) by mouth in the morning. Do not crush or chew. 90 tablet 3 05/27/2024 lisinopril 40 mg tablet Take 1 tablet (40 mg) by mouth in the morning. 90 tablet 3 05/27/2024 meloxicam (Mobic) 15 mg tablet Take 15 mg by mouth in the morning. 05/27/2024 nitroglycerin (Nitrostat) 0.4 mg SL tablet DISSOLVE ONE TABLET UNDER THE TONGUE EVERY 5 MINUTES NEEDED FOR CHEST PAIN. DO NOT EXCEED A TOTAL OF 3 DOSES IN 15 MINUTES 90 tablet 3 05/27/2024 oxyCODONE-acetaminophen (Percocet) 5-325 mg tablet TAKE 1 TABLET BY MOUTH THREE TIMES DAILY NEEDED FOR LUMBAR RADICULOPATHY. 05/27/2024 pantoprazole (ProtoNix) 40 mg EC tab (more content not included)... Normal [facility] HAPTOGLOBINon 05-29-2024 Magnesium [Mass/Vol] 253 mg/dL High 26-164 [facility] Comment on above: Performed By: #### L [id number] #### [facility] ([facility]) [address] [place] [address] HPon 05-29-2024 HP ------- Attestation signed by Kristian Palumbo MD at 05/29/2024 3:28 PM I personally saw and examined the patient on the same date of service as resident/fellow Dr Vann. I discussed the findings and therapeutic plan with the resident/fellow Dr Vann. I agree with the documentation, except for any edits/updates below. Teaching Physician's Revisions: None In summary the patient had prior history of CAD and stenting of the LAD in 2004, in 2018 had a heart catheterization which showed minimal CAD and patent LAD stent. He also has normal stress nuclear test September 2023 without evidence of ischemia. He presented yesterday to the cardiology office in [place] reporting recurrent chest pain on exertion as well as at rest described as squeezing sensation and relieved by nitroglycerin sublingual consistent with unstable angina therefore he was directly admitted to the hospital. EKG yesterday showed T wave inversion in anterior leads consistent with anterior ischemia. Repeat EKG today was normal. Troponin has been negative x 3. He was started on heparin IV infusion. He is also on aspirin, metoprolol, statin and Imdur. He states that he did not have chest pain over night. He denies any shortness of breath or any other symptoms. Plan is to continue current medical treatment. The patient is scheduled to have cardiac catheterization on Friday. Also we will obtain an echocardiographic study Kristian Palumbo MD, [facility] Cardiology Consult Note Reason for Consult: Chest pain HPI: Noel Alva is a 63 y.o. male patient is presenting as a direct transfer from [facility]. Past medical history includes: CAD HTN HLD Patient saw Dr. Marin yesterday at [facility]. Patient reported that he has been experiencing intermittent diaphoresis episodes, worse with exertion, associated with mild chest pain responding to sublingual nitroglycerin. He mentioned it is similar to the symptoms he experienced when he had coronary artery disease stenting in 2005. Patient was sent to the ED at [place] for further workup. High sensitivity troponin level 1x was normal. Patient was started on heparin drip and transferred to our facility. Patient was seen and examined. He denies any active chest pain, nausea, vomiting or diaphoresis. Troponin 2x negative. EKG T wave inversions in the anterior leads. Cardiology ROS: GENERAL: Denies fever, chills, night sweats, weight loss. CARDIOVASCULAR: Refer to HPI RESPIRATORY: Denies SOB, coughing, wheezing GI: Denies abdominal pain, nausea/vomiting. PSYCH: Denies anxiety. Past Medical History He has a past medical history of Coronary artery disease, Hypertension, and PVD (peripheral vascular disease) ([facility] Surgical History He has a past surgical history that includes Cardiac catheterization; Coronary stent placement; and Back surgery. Social History He reports that he has never smoked. He has never used smokeless tobacco. He reports current alcohol use of about 4.0 standard drinks of alcohol per week. No history on file for drug use. Family History Family History Problem Relation Name Age of Onset Coronary artery disease Mother Coronary artery disease Father Allergies Patient has no known allergies. Medications Medications Prior to Admission Medication Sig Dispense Refill Last Dose albuterol 90 mcg/actuation inhaler Inhale 2 puffs every 6 (six) hours if needed for wheezing. 05/27/2024 aspirin 81 mg chewable tablet Chew 1 tablet every day by oral route. 05/28/2024 atorvastatin (Lipitor) 20 mg tablet Take 1 tablet (20 mg) by mouth in the morning. (Patient taking differently: Take 40 mg by mouth in the morning.) 90 tablet 3 05/27/2024 cholecalciferol (Vitamin D-3) 50 MCG (2000 UT) tablet Take 1 tablet by mouth in the morning. 05/27/2024 ezetimibe (Zetia) 10 mg tablet Take 1 tablet (10 mg) by mouth in the morning. 90 tablet 3 05/27/2024 ferrous sulfate 325 (65 Fe) MG tablet Take 325 mg by mouth two times daily. 05/27/2024 hydroCHLOROthiazide (HYDRODiuril) 25 mg tablet Take 25 mg by mouth in the morning. 05/27/2024 isosorbide mononitrate ER (Imdur) 60 mg 24 hr tablet Take 1 tablet (60 mg) by mouth in the morning. Do not crush or chew. 90 tablet 3 05/27/2024 lisinopril 40 mg tablet Take 1 tablet (40 mg) by mouth in the morning. 90 tablet 3 05/27/2024 meloxicam (Mobic) 15 mg tablet Take 15 mg by mouth in the morning. 05/27/2024 nitroglycerin (Nitrostat) 0.4 mg SL tablet DISSOLVE ONE TABLET UNDER THE TONGUE EVERY 5 MINUTES NEEDED FOR CHEST PAIN. DO NOT EXCEED A TOTAL OF 3 DOSES IN 15 MINUTES 90 tablet 3 05/27/2024 oxyCODONE-acetaminophen (Percocet) 5-325 mg tablet TAKE 1 TABLET BY MOUTH THREE TIMES DAILY NEEDED FOR LUMBAR RADICULOPATHY. 05/27/2024 pantoprazole (ProtoNix) 40 mg EC tab (more content not included)... Normal [facility] LACTATE DEHYDROGENASEon 05-07 LACTATE DEHYDROGENASE (U/L) IN SER/PLAS BY LAC->PYR RXN 166 U/L Normal 140-271 [facility] Comment on above: Performed By: #### L [id number] ####[facility] ([facility] [place] [address] TROPONIN Ion 05-29-2024 Troponin I.cardiac [Mass/Vol] 0.02 ng/mL Normal 0.00-0.04 [facility] Comment on above: Performed By: #### L [id number] #### [facility] ([facility] [address] [place] [address] Troponin I.cardiac [Mass/Vol] 0.01 ng/mL Normal 0.00-0.04 [facility] Comment on above: Performed By: #### L [id number] #### [facility] ([facility] [address] [place] [address] Troponin I.cardiac [Mass/Vol] 0.01 ng/mL Normal 0.00-0.04 [facility] Comment on above: Performed By: #### L [id number] #### [facility] ([facility] [address] [place] [address] TSH3 REFLEX TO FT4on 024 THYROTROPIN (MIU/L) IN SER/PLAS BY DETECTION LIMIT <= 0.05 MIU/L 2.12 mIU/L Normal 0.34-5.60 [facility] Comment on above: Performed By: #### L [id number] ####[facility] ([facility] [place] [address] VITAMIN B12on 05-29-2024 Cobalamin (Vitamin B12) [Mass/Vol] 394 pg/mL Normal 180-914 [facility] Comment on above: Result Comment: REFE RENCE RANGES: 180-914 pg/mL Normal 145-179 pg/mL Indeterminate <145 pg/mL Deficient Performed By: #### L [id number] #### [facility] ([facility] [address] [place] [address] 29on 05-28-2024 29 Addended by: ELIEL WORLEY on: 05/28/2024 09:55 AM Modules accepted: Orders Normal [facility] APTTon 05-28-2024 ACTIVATED PARTIAL THROMBOPLASTIN TIME IN PPP BY COAGULATION ASSAY 26.4 Seconds Normal 25.0-35.0 [facility] Comment on above: Order Comment: Basel ine aPTT before initiating heparin infusion. Result Comment: Clin ical significance of the APTT is questionable in the presence of heparin. Performed By: #### L [id number] #### [facility] ([facility] [address] [place] [address] B-TYPE NATRIURETIC PEPTIDEon 05-28-2024 Natriuretic peptide B (Bld) [Mass/Vol] 73 pg/mL Normal 0-100 [facility] Comment on above: Performed By: #### L [id number] ####[facility] ([facility] [place] [address] BASIC METABOLIC PANELon 05-07 Anion gap [Moles/Vol] 14 mmol/L Normal 7-20 [facility] Comment on above: Performed By: #### L [id number] #### [facility] ([facility] [address] [place] [address] Calcium [Mass/Vol] 9.8 mg/dL Normal 8.6-10.3 [facility] Comment on above: Performed By: #### L [id number] #### [facility] ([facility] [address] [address] Chloride [Moles/Vol] 97 mmol/L Low 98-107 [facility] Comment on above: Performed By: #### L [id number] #### [facility] ([facility] [address] [place] [address] CO2 [Moles/Vol] 29 mmol/L Normal 21-31 [facility] Comment on above: Performed By: #### L [id number] #### [facility] ([facility] [address] [place] [address] Creatinine [Mass/Vol] 0.75 mg/dL Normal 0.70-1.30 [facility] Comment on above: Performed By: #### L [id number] #### [facility] ([facility] [address] [place] [address] GLOMERULAR FILTRATION RATE ML/MIN/1.73 SQ M.PREDICTED 101.4 mL/min/1.73m*2 Normal >60.0 [facility] Comment on above: Result Comment: The [facility]???s estimated glomerular filtration rate (eGFR) will no longer include consideration of race in its calculation. The National Kid[employer] Foundation???s eGFR Task Force developed new recommendations for the estimation of the glomerular filtration rate in the [place] They recommend immediate implementation of the new equation refit without the race variable in all laboratories because the calculation does not include race. In addition to not including race in the calculation and reporting, it included diversity in its development, and has acceptable performance characteristics and potential consequences that do not disproportionately affect any one group of individuals. Performed By: #### L [id number] #### [facility] ([facility] [address] [place] [address] Glucose [Mass/Vol] 109 mg/dL High 70-100 [facility] Comment on above: Performed By: #### L [id number] #### [facility] ([facility] [address] [place] [address] Potassium [Moles/Vol] 3.6 mmol/L Normal 3.5-5.1 [facility] Comment on above: Performed By: #### L [id number] #### [facility] ([facility] [address] [place] [address] Sodium [Moles/Vol] 136 mmol/L Normal 136-145 [facility] Comment on above: Performed By: #### L [id number] #### [facility] [address] [place] [address] Urea nitrogen [Mass/Vol] 20 mg/dL Normal 7-25 [facility] Comment on above: Performed By: #### L [id number] #### [facility] ([facility] [address] [place] [address] UREA NITROGEN/CREATININE (MASS RATIO) IN SER/PLAS 26.7 Normal [facility] Comment on above: Performed By: #### L [id number] #### [facility] ([facility] [address] [place] [address] CBCon 05-28-2024 Erythrocyte distribution width (RBC) [Ratio] 14.2 % Normal 11.5-15.0 [facility] Comment on above: Performed By: #### L [id number] #### [facility] ([facility] [address] [place] [address] ERYTHROCYTE MEAN CORPUSCULAR HEMOGLOBIN CONCENTRATION (G/DL) BY AUTOMATED 33.6 g/dL Normal 32.0-35.0 [facility] Comment on above: Performed By: #### L [id number] #### [facility] ([facility] [address] [place] [address] Hematocrit (Bld) [Volume fraction] 45.8 % Normal 39.0-55.0 [facility] Comment on above: Performed By: #### L [id number] #### [facility] [address] [place] [address] Hemoglobin (Bld) [Mass/Vol] 15.4 g/dL Normal 13.0-17.0 [facility] Comment on above: Performed By: #### L [id number] #### [facility] [address] [place] [address] MCH (RBC) [Entitic mass] 31.2 pg Normal 27.0-33.0 [facility] Comment on above: Performed By: #### L [id number] #### [facility] ([facility] [address] [place] [address] MCV (RBC) [Entitic vol] 92.9 fL Normal 82.0-98.0 [facility] Comment on above: Performed By: #### L [id number] #### [facility] ([facility] [address] [place] [address] PLATELETS (10*3/UL) IN BLOOD AUTOMATED COUNT 197 10*3/uL Normal 150-400 [facility] Comment on above: Performed By: #### L [id number] #### [facility] ([facility] [address] [facility] [place] [address] RBC (Bld) [#/Vol] 4.93 10*6/uL Normal 4.20-5.70 [facility] Comment on above: Performed By: #### L [id number] #### [facility] ([facility] [address] [place] [address] WBC (Bld) [#/Vol] 6.33 10*3/uL Normal 4.00-10.60 [facility] Comment on above: Performed By: #### L [id number] #### [facility] ([facility] [address] [place] [address] HEMOGLOBIN A1Con 05-28-2024 Glucose [Mass/Vol] 123 mg/dL Normal [facility] Comment on above: Performed By: #### L [id number] #### [facility] ([facility] [address] [place] [address] HbA1c (Bld) [Mass fraction] 5.9 % Normal 4.0-6.0 [facility] Comment on above: Performed By: #### L [id number] #### [facility] ([facility]) [address] [place] [address] LIPID PANELon 05-28-2024 CHOL/HDL 2.5 mg/dL Normal [facility] Comment on above: Performed By: #### L [id number] #### [facility] ([facility]) [address] [place] [address] Cholesterol [Mass/Vol] 142 mg/dL Normal 120-200 [facility] Comment on above: Performed By: #### L [id number] #### [facility] ([facility] [address] [place] [address] Magnesium [Mass/Vol] 109 mg/dL Normal 40-149 [facility] Comment on above: Result Comment: TRIG LYCERIDE REFERENCE RANGE: 20 YEARS AND OLDER CARDIOVASCULAR RISK LESS THAN 150 mg/dL LOW RISK 150 TO 199 mg/dL BORDERLINE RISK 200 mg/dL AND GREATER HIGH RISK Performed By: #### L [id number] #### [facility] ([facility] [address] [place] [address] Magnesium [Mass/Vol] 64 mg/dL Normal 0-160 [facility] Comment on above: Performed By: #### L [id number] #### [facility] ([facility] [address] [place] [address] Magnesium [Mass/Vol] 56 mg/dL Normal 23-92 [facility] Comment on above: Performed By: #### L [id number] #### [facility] ([facility] [address] [place] [address] NON HDL CHOL. (LDL+VLDL) 86 Normal [facility] Comment on above: Performed By: #### L [id number] #### [facility] ([facility] [address] [place] [address] TOTAL VLDL-C 22 mg/dL Normal 0-40 [facility] Comment on above: Performed By: #### L [id number] #### [facility] ([facility] [address] [place] [address] MAGNESIUMon 05-28-2024 Magnesium [Mass/Vol] 2.1 mg/dL Normal 1.9-2.7 [facility] Comment on above: Performed By: #### L [id number] #### [facility] ([facility] [address] [place] [address] Office Visiton 05-28-2024 Follow-up visit [id number] Dorothea Alva 1960 M Date Provider Department Center 05/28/2024 ELIEL ECKERT VALENCIA Becker Family History Problem Relation Age of Onset Coronary artery disease Mother Coronary artery disease Father Family Status - Relation Status Age at Mother Father Level of Service:68867 [place] OFFICE/OUTPATIENT ESTABLISHED HIGH MDM 40 MIN Normal [facility] POCT GLUCOSE METER UNSOLICIT ED RESULTSon 05-28-2024 Glucose [Mass/Vol] 145 mg/dL High 70-105 [facility] Comment on above: Order Comment: Check anti-Xa level every 6 hours while on heparin infusion, or per protocol. Result Comment: jose juan swift Performed By: #### L [id number] #### [facility] ([facility]) [address] [place] [address] TROPONIN Ion 05-28-2024 Troponin I.cardiac [Mass/Vol] 0.01 ng/mL Normal 0.00-0.04 [facility] Comment on above: Performed By: #### L [id number] #### [facility] ([facility]) [address] [facility] [address] Office Visiton 02-11-2024 Follow-up visit [id number] Dorothea Alva 1960 M Date Provider Department Center 02/11/2024 ELIEL ECKERT VALENCIA Becker Family History Problem Relation Age of Onset Coronary artery disease Mother Coronary artery disease Father Family Status - Relation Status Age at Mother Father Level of Service:46868 [place] OFFICE/OUTPATIENT ESTABLISHED MOD MDM 30 MIN Normal [facility] COVID-19, Rapidon 2023 SARS-CoV-2 (COVID-19) RdRp gene DAHLIA+probe Ql (Resp) Not detected Not Detected [facility] Comment on above: Rapid NAAT: [...] management decisions. Fact sheet for Healthcare Providers: https://www.fda.gov/media/471592/download Fact sheet for Patients: https://www.fda.gov/media/681148/download Methodology: Isothermal Nucleic Acid Amplification Specimen Description .NASOPHARYNGEAL SWAB [facility] Flu A/B Ag Detectionon 10-10 Flu A Ag Detection Negative Normal [facility] Comment on above: Result Comment: for Influenza A Antigen Performed By: #### F NATALYA #### [facility] [address] [place] [address] [place] [address] Button Tufting Machine Operator: Luis Carlos Del Castillo MD Flu B Ag Detection Negative Normal [facility] Comment on above: Result Comment: for Influenza B Antigen. Performed By: #### F LUABA #### [address] [place] [address] Button Tufting Machine Operator: LuisC arlos Del Castillo MD Rapid influenza A/B antigens on 2023 FLUAV Ag Ql (Unsp spec) Negative NEGATIVE [facility] Comment on above: for Influenza A Anti gen FLUBV Ag Ql (Unsp spec) Negative NEGATIVE [facility] Comment on above: for Influenza B Anti gen. [facility] [id number] 2023 SARS-CoV-2 (COVID-19) RNA DAHLIA+probe Ql (Unsp spec) Not detected Normal [facility] Comment on above: Result Comment: Rapid NAAT: [...] management decisions. Fact sheet for Healthcare Providers: https://www.fda.gov/media/221773/download Fact sheet for Patients: https://www.fda.gov/media/598101/download Methodology: Isothermal Nucleic Acid Amplification Performed By: #### C OVRB #### [facility] [address] [place] [address] Button Tufting Machine Operator: Luis Carlos Del Castillo MD XR CHEST [...] Nav Hudson MD 10/10/23 Final result Normal [facility] Documentationon 09-18-2023 Documentation [id number] Dorothea Alva 1960 M Date Provider Department Center 09/18/2023 JuliannaDAVIDSON SHARP [facility] Family History Problem Relation Age of Onset Coronary artery disease Mother Coronary artery disease Father Family Status - Relation Status Age at Mother Father Normal [facility] CBCon 09-09-2023 ABSOLUTE BAS 0.1 10*3/uL Normal 0.0-0.2 [facility] ABSOLUTE EOS 0.1 10*3/uL Normal 0.0-0.7 [facility] ABSOLUTE NEUTROPHIL COUNT 7.0 10*3/uL High 1.4-6.5 [facility] Basophils/100 WBC (Bld) 0.9 % Normal 0.0-2.0 [facility] DTYPE AUTO DIFF Normal [facility] Eosinophils/100 WBC (Bld) 1.3 % Normal 0.0-11.0 [facility] Lymphocytes (Bld) [#/Vol] 1.5 10*3/uL Normal 1.2-3.4 [facility] Lymphocytes/100 WBC (Bld) 15.7 % Low 20.0-55.0 [facility] Monocytes (Bld) [#/Vol] 0.6 10*3/uL Normal 0.0-0.7 [facility] Monocytes/100 WBC (Bld) 7.0 % Normal 0.0-10.0 [facility] Neutrophils/100 WBC (Bld) 75.1 % High 37.0-75.0 [facility] Erythrocyte distribution width (RBC) [Ratio] 14.6 % High 11.5-14.5 [facility] Hematocrit (Bld) [Volume fraction] 41.6 % Low 42.0-52.0 [facility] Hemoglobin (Bld) [Mass/Vol] 13.9 g/dL Low 14.0-18.0 [facility] MCH (RBC) [Entitic mass] 33.0 pg Normal 26.0-35.0 [facility] MCHC (RBC) [Mass/Vol] 33.4 g/dL Normal 27.0-37.0 [facility] MCV (RBC) [Entitic vol] 98.7 fL Normal 80.0-100.0 [facility] Platelet mean volume (Bld) [Entitic vol] 7.8 fL Normal 7.4-11.0 [facility] Platelets (Bld) [#/Vol] 195 10*3/uL Normal 130-400 [facility] RBC (Bld) [#/Vol] 4.21 10*6/uL Normal 4.0-6.1 [facility] WBC (Bld) [#/Vol] 9.3 10*3/uL Normal 3.6-11.0 [facility] CMP FASTINGon 09-09-2023 A:G RATIO 1.5 RATIO Normal 1.3-2.2 [facility] ALBUMIN 4.3 G/dl Normal 3.5-5.0 [facility] ALP [Catalytic activity/Vol] 99 U/L Normal 38-126 [facility] ALT [Catalytic activity/Vol] 46 U/L Normal <50 [facility] AST [Catalytic activity/Vol] 57 U/L Normal 17-59 [facility] Bilirubin [Mass/Vol] 0.7 mg/dL Normal 0.2-1.3 [facility] Calcium [Mass/Vol] 9.5 mg/dL Normal 8.4-10.2 [facility] Chloride [Moles/Vol] 105 mmol/L Normal 98-107 [facility] Comment on above: Result Comment: Gilma medellin note: Triglyceride levels of 600mg/dL or higher may positively bias chloride results by approximately 2.1 mmol CO2 [Moles/Vol] 27 mmol/L Normal 22-30 [facility] Creatinine [Mass/Vol] 0.60 mg/dL Low 0.7-1.2 [facility] EST. GFR, 176 ml/min/1.73sq.m Normal [facility] EST. GFR,Non 145 ml/min/1.73sq.m Normal [facility] GFR Information Average GFR for 60-6 9 years old = 85. Normal [facility] Comment on above: Result Comment: Bed Operator isaiah Kidney disease, GFR = <60. Kidney failure, GFR = <15. The GFR estimate is not adjusted for extreme body surface area or acute process, nor has it been validated for women or ethnic groups other than and . Glucose [Mass/Vol] 86 mg/dL Normal 70-100 [facility] Comment on above: Result Comment: NORMAL <100 mg/dL PREDIABETES 101-126 mg/dL DIABETES 126 mg/dL or higher Potassium [Moles/Vol] 4.0 mmol/L Normal 3.5-5.1 [facility] Protein [Mass/Vol] 7.1 g/dL Normal 6.3-8.2 [facility] Sodium [Moles/Vol] 141 mmol/L Normal 137-145 [facility] Urea nitrogen [Mass/Vol] 16 mg/dL Normal 7-20 [facility] LARGE JOINT/BURSA INJECTION AND/OR ASPIRATIONon 08-13-2023 Radiology Study observation (narrative) [facility] Office Visiton 08-13-2023 Follow-up visit [id number] Dorothea Alva 1960 Provider Department Center 08/13/2023 DAVIDSON HOWELL VALENCIA Becker Family History Problem Relation Age of Onset Coronary artery disease Mother Coronary artery disease Father Family Status - Relation Status Age at Mother Father Level of Service:44561 [place] OFFICE/OUTPATIENT ESTABLISHED MOD MDM 30-39 MIN Reason for Visit and Comments: Coronary Artery Disease [187] Chest Pain [576441] Pre-op Exam [665009] Hyperlipidemia [182] Hypertension [573141] Normal [facility] Orders Onlyon 08-13-2023 Orders Only [id number] Dorothea Alva 1960 Provider Department Center 08/13/2023 [...] fashion. The patient was prepped with Chloraprep. [facility] [place] Unspecified body regionon 07-16-2023 Image Storage This order is to facilitate the storage of the image. [facility] LARGE JOINT/BURSA INJECTION AND/OR ASPIRATIONon 06-17-2023 Radiology Study observation (narrative) [facility] LARGE JOINT/BURSA INJECTION AND/OR ASPIRATIONon 06-10-2023 Jose [...] fashion. The patient was prepped with Chloraprep. [facility] [place] Unspecified body regionon 06-10-2023 Image Storage This order is to facilitate the storage of the image. [facility] LARGE JOINT/BURSA INJECTION AND/OR ASPIRATIONon 05-15-2023 Radiology Study observation (narrative) [facility] LARGE JOINT/BURSA INJECTION AND/OR ASPIRATIONon 04-18-2023 Eric [...] fashion. The patient was prepped with Chloraprep. [employer] [place] Unspecified body regionon 04-18-2023 Image Storage This order is to facilitate the storage of the image. [employer] XR HIPS KOURTNEY 5V W PELVISon XR [...] LUIS CARLOS ENCARNACION Date: 2023-01-08 13:[address] [facility] XR LSPINE W_OBLS AND FLEX_EX Ton [...] LUIS CARLOS ENCARNACION Date: 2023-01-08 14:[address] [facility] Hemoglobin A1Con 01-01-2023 Glucose [Mass/Vol] 114 mg/dL Normal [facility] Comment on above: Result Comment: The ADA and AACC recommend providing the estimated average glucose result to permit better patient understanding of their HBA1c result. Performed By: #### L IPR #### [facility] [employer] [address] [place] [address] Button Tufting Machine Operator: Marshall Paulino MD HbA1c (Bld) [Mass fraction] 5.6 % Normal 4.0-6.0 [facility] Comment on above: Performed By: #### L IPR #### [facility] [address] [place] [address] Button Tufting Machine Operator: Marshall Paulino MD Basic Metab w/rfx MGon 12-31 Anion gap [Moles/Vol] 9 mmol/L Normal 9-17 [facility] Comment on above: Performed By: #### T ROPI, CDP, BMPX #### [facility] [address] [address] Button Tufting Machine Operator: Luis Carlos Del Castillo MD #### GLYHGB #### [address] [place] [address] Button Tufting Machine Operator: Marshall Paulino MD BUN/CRE Ratio 39 High 9-20 [facility] Comment on above: Performed By: #### T ROPI, CDP, BMPX #### [facility] [address] [place], [place] [address] Button Tufting Machine Operator: Luis Carlos Del Castillo MD #### GLYHGB #### [address] [address] Button Tufting Machine Operator: Marshall Paulino MD Calcium [Mass/Vol] 9.5 mg/dL Normal 8.6-10.4 [facility] Comment on above: Performed By: #### T ROPI, CDP, BMPX #### [facility] [address] [place], [place] [phone] Button Tufting Machine Operator: Luis Carlos Del Castillo MD #### GLYHGB #### [address] [address] Button Tufting Machine Operator: Marshall Paulino MD Chloride [Moles/Vol] 106 mmol/L Normal 98-107 [facility] Comment on above: Performed By: #### T ROPI, CDP, BMPX #### [facility] [address] [place], [place] [phone] Button Tufting Machine Operator: Luis Carlos Del Castillo MD #### GLYHGB #### [address] [address] Button Tufting Machine Operator: Marshall Paulino MD CO2 [Moles/Vol] 25 mmol/L Normal 20-[address] [facility] Comment on above: Performed By: #### T ROPI, CDP, BMPX #### [facility] [address] [place], [place] [address] Button Tufting Machine Operator: Luis Carlos Del Castillo MD #### GLYHGB #### [address] [phone] Button Tufting Machine Operator: Marshall Paulino MD Creatinine [Mass/Vol] 0.70 mg/dL Normal 0.70-1.20 [facility] Comment on above: Performed By: #### T GEE ALONZO, BMPX #### [facility] [address] [place] [address] Button Tufting Machine Operator: Luis Carlos Del Castillo MD #### GLYHGB #### [address] [phone] Button Tufting Machine Operator: Marshall Paulino MD GFR/1.73 sq M.predicted among non-blacks MDRD (S/P/Bld) [Vol rate/Area] mL/min/{1.73_m2} Normal >60 [facility] Comment on above: Result Comment: These results [...] tubular secretion. Performed By: #### T GEE ALONZO BMPX #### [address] [place], [place] [phone] Button Tufting Machine Operator: Luis Carlos Del Castillo MD #### GLYHGB #### [address] [phone] Button Tufting Machine Operator: Marshall Paulino MD Glucose [Mass/Vol] 103 mg/dL High 70-99 [facility] Comment on above: Performed By: #### T GEE ALONZO, BMPX #### [address] [place] [address] Button Tufting Machine Operator: Luis Carlos Del Castillo MD #### GLYHGB #### [address] [phone] Button Tufting Machine Operator: Marshall Paulino MD Potassium [Moles/Vol] 4.3 mmol/L Normal 3.7-5.3 [facility] Comment on above: Performed By: #### T GEE ALONZO, BMPX #### [facility] [address] [place] [address] Button Tufting Machine Operator: Luis Carlos Del Castillo MD #### GLYHGB #### [facility] [address] [place], [place] [id number] Button Tufting Machine Operator: Marshall Paulino MD Sodium [Moles/Vol] 140 mmol/L Normal 135-144 [facility] Comment on above: Performed By: #### T GEE ALONZO, BMPX #### [facility] [address] [place] [address] Button Tufting Machine Operator: Luis Carlos Del Castillo MD #### GLYHGB #### [address] [place] [address] Button Tufting Machine Operator: Marshall Paulino MD Urea nitrogen [Mass/Vol] 27 mg/dL High 8-23 [facility] Comment on above: Performed By: #### GEE ESPAÑA, BMPX #### [facility] [address] [place] [address] Button Tufting Machine Operator: Luis Carlos Del Castillo MD #### GLYHGB #### [address] [address] [place], [place] [phone] Button Tufting Machine Operator: Marshall Paulino MD Basic Metabolic Panel w/ Ref maria antonia to MGon 12-31-2022 Anion gap [Moles/Vol] 9 mmol/L 9 - 17 mmol/L [facility] Calcium [Mass/Vol] 9.5 mg/dL 8.6 - 10. 4 mg/dL [facility] Chloride [Moles/Vol] 106 mmol/L 98 - 10 7 mmol/L [facility] CO2 [Moles/Vol] 25 mmol/L 20 - 31 mmol/L [facility] Creatinine [Mass/Vol] 0.7 mg/dL 0.70 - 1.20 mg/dL [facility] [employer] GFR/1.73 sq M.predicted MDRD (S/P/Bld) [Vol rate/Area] - PINF [facility] Comment on above: These results [...] 103 mg/dL High 70 - 99 mg/dL [facility] [employer] Interpretation and review of laboratory results Abnormal [facility] [employer] Potassium [Moles/Vol] 4.3 mmol/L 3.7 - 5.3 mmol/L [facility] Sodium [Moles/Vol] 140 mmol/L 135 - 144 mmol/L [facility] [employer] Urea nitrogen [Mass/Vol] 27 mg/dL High 8 - 23 mg/dL [facility] Urea nitrogen/Creatinine (Bld) [Mass ratio] 39 High 9 - 20 [facility] CARDIAC STRESS TESTon 2022 CARDIAC STRESS TEST [address] [address] CARDIAC STRESS TEST PATIENT NAME: NOEL ALVA : 1960 MED REC NO: [id number] ROOM: 0327 ACCOUNT NO: [id number] ADMIT DATE: 12/30/2022 PROVIDER: Fany Mohr MD [...] MIRIAN/BILLY_LUCIAN Doc#: Unknown CC: Romario Man Normal [facility] CBC with Auto Differentialon 12-31-2022 Absolute Eos # 0.18 [facility] Absolute Immature Granulocyte [facility] Absolute Lymph # 1.58 [facility] Absolute Warren # 0.72 [facility] Basophils (Bld) [#/Vol] 0.05 10*3/uL [facility] Interpretation and review of laboratory results Abnormal [facility] NRBC Automated 0.0 0.0 per 100 WBC [facility] Platelet distribution width (Bld) [Ratio] 13.9 % 11.8 - 14.4 % [facility] Segmented neutrophils/100 WBC (Bld) 62 % 36 - 65 % [facility] Segs Absolute 4.27 [facility] CBC with Diffon 12-31-2022 Abs. Basophil 0.05 k/uL Normal 0.00-0.20 [facility] Comment on above: Performed By: #### T GEE ALONZO, BMPX #### [facility] [address] [place] [address] Button Tufting Machine Operator: Luis Carlos Del Castillo MD #### GLYHGB #### [address] [address] Button Tufting Machine Operator: Marshall Paulino MD Abs.Imm.Granulocyte <0.03 Normal 0.00-0.30 [facility] Comment on above: Performed By: #### T GEE ALONZO, BMPX #### [facility] [address] [place] [phone] ( Button Tufting Machine Operator: Luis Carlos Del Castillo MD #### GLYHGB #### [place] [phone] Button Tufting Machine Operator: Marshall Paulino MD Abs.Neutrophil (Seg) 4.27 k/uL Normal 1.50-8.10 [facility] Comment on above: Performed By: #### GEE ESPAÑA, BMPX #### [address] [place] [phone] Button Tufting Machine Operator: Luis Carlos Del Castillo MD #### GLYHGB #### [place] [address] Button Tufting Machine Operator: Marshall Paulino MD Eosinophils (Bld) [#/Vol] 0.18 10*3/uL Normal 0.00-0.44 [facility] Comment on above: Performed By: #### GEE ESPAÑA, BMPX #### [address] [place] [phone] Button Tufting Machine Operator: Luis Carlos Del Castillo MD #### GLYHGB #### [place] [address] Button Tufting Machine Operator: Marshall Paulino MD Erythrocyte distribution width (RBC) [Ratio] 13.9 % Normal 11.8-14.4 [facility] Comment on above: Performed By: #### GEE ESPAÑA, BMPX #### [address] [place] [phone] Button Tufting Machine Operator: Luis Carlos Del Castillo MD #### GLYHGB #### [place] [address] Button Tufting Machine Operator: Marshall Paulino MD Lymphocytes (Bld) [#/Vol] 1.58 10*3/uL Normal 1.10-3.70 [facility] Comment on above: Performed By: #### T ROPI, CDP, BMPX #### [address] [place], [place] [phone] Button Tufting Machine Operator: Luis Carlos Del Castillo MD #### GLYHGB #### [address] [phone] Button Tufting Machine Operator: Marshall Paulino MD Monocytes (Bld) [#/Vol] 0.72 10*3/uL Normal 0.10-1.20 [facility] Comment on above: Performed By: #### T CHERI CDP, BMPX #### [address] [place], [place] [phone] Button Tufting Machine Operator: Luis Carlos Del Castillo MD #### GLYHGB #### [address] [phone] Button Tufting Machine Operator: Marshall Paulino MD Neutrophil (Seg) 62 % Normal 36-65 [facility] Comment on above: Performed By: #### GEE ESPAÑA, BMPX #### [address] [place] [phone] Button Tufting Machine Operator: Luis Carlos Del Castillo MD #### GLYHGB #### [address] [address] Button Tufting Machine Operator: Marshall Paulino MD NRBC Automated 0.0 per 100 WBC Normal 0.0 [facility] Comment on above: Performed By: #### T CHERI CDP, BMPX #### [address] [place], [place] [id number] Button [employer]ing Machine Operator: Luis Carlos Del Castillo MD #### GLYHGB #### [address] [phone] [employer] Operator: Marshall Paulino MD Basophils/100 WBC (Bld) 1 % Normal 0-2 [facility] Comment on above: Performed By: #### T GEE ALONZO, BMPX #### [address] [place] [address] Button Tufting Machine Operator: Luis Carlos Del Castillo MD #### GLYHGB #### [address] [phone] [employer] Operator: Marshall Paulino MD Eosinophils/100 WBC (Bld) 3 % Normal 1-4 [facility] Comment on above: Performed By: #### GEE ESPAÑA, BMPX #### [address] [place] [address] Button Tufting Machine Operator: Luis Carlos Del Castillo MD #### GLYHGB #### [place] [phone] Button [employer] Machine Operator: Marshall Paulino MD Hematocrit (Bld) [Volume fraction] 40.4 % Low 40.7-50.3 [facility] Comment on above: Performed By: #### GEE ESPAÑA, BMPX #### [address] [place] [address] Button Tu[employer]ing Machine Operator: Luis Carlos Del Castillo MD #### GLYHGB #### [place] [phone] Button [employer] Machine Operator: Marshall Paulino MD Hemoglobin (Bld) [Mass/Vol] 13.5 g/dL Normal 13.0-17.0 [facility] Comment on above: Performed By: #### GEE ESPAÑA, BMPX #### [address] [place] [address] Button [employer]ing Machine Operator: Luis Carlos Del Castillo MD #### GLYHGB #### [address] [address] Button [employer]ing Machine Operator: Marshall Paulino MD Immature granulocytes/100 WBC (Bld) 0 % Normal 0 [facility] Comment on above: Performed By: #### GEE ESPAÑA, BMPX #### [address] [place] [address] [employer] Machine Operator: Luis Carlos Del Castillo MD #### GLYHGB #### [place] [address] [place] [address] Button Tufting Machine Operator: Marshall Paulino MD Lymphocytes/100 WBC (Bld) 23 % Low 24-43 [facility] Comment on above: Performed By: #### GEE ESPAÑA, BMPX #### [address] [place] [address] Button [employer] Machine Operator: Luis Carlos Del Castillo MD #### GLYHGB #### [place] [phone] Button [employer] Operator: Marshall Paulino MD MCH (RBC) [Entitic mass] 31.2 pg Normal 25.2-33.5 [facility] Comment on above: Performed By: #### GEE ESPAÑA, BMPX #### [address] [place] [address] Button [employer] Machine Operator: Luis Carlos Del Castillo MD #### GLYHGB #### [address] [address] Button [employer]ing Machine Operator: Marshall Paulino MD MCHC (RBC) [Mass/Vol] 33.4 g/dL Normal 28.4-34.8 [facility] Comment on above: Performed By: #### GEE ESPAÑA, BMPX #### [address] [place] [address] Button [employer]ing Machine Operator: Luis Carlos Del Castillo MD #### GLYHGB #### [address] [address] Button [employer]ing Machine Operator: Marshall Paulino MD MCV (RBC) [Entitic vol] 93.3 fL Normal 82.6-102.9 [facility] Comment on above: Performed By: #### GEE ESPAÑA, BMPX #### [address] [place] [phone] Button [employer] Machine Operator: Luis Carlos Del Castillo MD #### GLYHGB #### [address] [phone] Button [employer] Operator: Marshall Paulino MD Monocytes/100 WBC (Bld) 11 % Normal 3-12 [facility] Comment on above: Performed By: #### GEE ESPAÑA, BMPX #### [address] [place] [id number] Button [employer] Machine Operator: Luis Carlos Del Castillo MD #### GLYHGB #### [place] [phone] Button [employer] Operator: Marshall Paulino MD Platelet mean volume (Bld) [Entitic vol] 10.1 fL Normal 8.1-13.5 [facility] Comment on above: Performed By: #### GEE ESPAÑA, BMPX #### [address] [place] [phone] Button [employer] Machine Operator: Luis Carlos Del Castillo MD #### GLYHGB #### [place] [phone] [employer] Operator: Marshall Paulino MD Platelets (Bld) [#/Vol] 190 10*3/uL Normal 138-453 [facility] Comment on above: Performed By: #### GEE ESPAÑA, BMPX #### [address] [place] [phone] Button [employer] Operator: Luis Carlos Del Castillo MD #### GLYHGB #### [address] [phone] Button [employer] Operator: Marshall Paulino MD RBC (Bld) [#/Vol] 4.33 10*6/uL Normal 4.21-5.77 [facility] Comment on above: Performed By: #### Ileana ALONZO, CDP, BMPX #### [facility] [address] [address] Button [employer]ing Machine Operator: Luis Carlos Del Castillo MD #### GLYHGB #### [facility] [address] [place], [place] [phone] Button [employer]ing Machine Operator: Marshall Paulino MD WBC (Bld) [#/Vol] 6.8 10*3/uL Normal 3.5-11.3 [facility] [employer] Comment on above: Performed By: #### T GEE ALONZO, BMPX #### [facility] [address] [place] [address] Button [employer]ing Machine Operator: Luis Carlos Del Castillo MD #### GLYHGB #### [facility] [address] [place] [address] Button Tufting Machine Operator: Marshall Paulino MD EKG 12 leadon 12-31-2022 Atrial Rate 51 BPM [employer] Work Phone: P [place] 51 degrees [facility] [employer] Work Phone: P-R Interval 144 ms [employer] Phone: Q-T Interval 490 ms [facility] [employer] Work Phone: QRS Duration 72 ms [employer] Work Phone: QTc Calculation (Bazett) 451 ms [employer] Work Phone: R [place] 47 degrees [employer] Phone: T [place] 91 degrees [employer] Phone: Ventricular Rate 51 BPM [employer] [facility] [employer] Work Phone: Sinus bradycardia T wave abnormality, consider lateral ischemia Abnormal ECG When compared with ECG of 30-DEC-2022 06:16, Inverted T waves have replaced nonspecific T wave abnormality in Anterior leads QT has lengthened Confirmed by Fany Mohr MD ([id number]) on 12/31/2022 1:07:24 PM [facility] Fany Mohr MD - 12/31/2022 Sinus bradycardia T wave abnormality, consider lateral ischemia Abnormal ECG When compared with ECG of 30-DEC-2022 06:16, Inverted T waves have replaced nonspecific T wave abnormality in Anterior leads QT has lengthened Confirmed by Fany Mohr MD ([id number]) on 12/31/2022 1:07:24 PM [facility] Work Phone: [facility] Work Phone: EKG Rhythm Stripon 3 [facility] Lipid Panelon 12-31-2022 Cholesterol [Mass/Vol] 103 mg/dL NINF - 200 mg/dL [facility] Comment on above: Cholesterol Guidelines: <200 Desirable 200-240 Borderline >240 Undesirable Cholesterol in HDL [Mass/Vol] 44 mg/dL 40 - PINF mg/dL [facility] Comment on above: HDL Guidelines: <40 Undesirable 40-59 Borderline >59 Desirable Cholesterol in LDL [Mass/Vol] 46 mg/dL 0 - 130 mg/dL [facility] Comment on above: LDL Guidelines: <100 Desirable 100-129 Near to/above Desirable 130-159 Borderline >159 Undesirable Direct (measured) LDL and calculated LDL are not interchangeable tests. Cholesterol.total/Ch olesterol in HDL [Mass ratio] 2.3 {ratio} NINF - 5 [facility] Triglyceride [Mass/Vol] 67 mg/dL NINF - 150 mg/dL [facility] Comment on above: Triglyceride Guidelines: <150 Desirable 150-199 Borderline 200-499 High >499 Very high Based on AHA Guidelines for fasting triglyceride, July 2012. [facility] Lipid Profileon 12-31-2022 Cholesterol [Mass/Vol] 103 mg/dL Normal <200 [facility] Comment on above: Result Comment: Cholesterol Guidelines: <200 Desirable 200-240 Borderline >240 Undesirable Performed By: #### L IPR #### [address] [address] Button [employer]ing Machine Operator: Marshall Paulino MD Cholesterol in HDL [Mass/Vol] 44 mg/dL Normal >40 [facility] Comment on above: Result Comment: HDL Guidelines: <40 Undesirable 40-59 Borderline >59 Desirable Performed By: #### L IPR #### [address] [address] Button [employer]ing [employer] Operator: Marshall Paulino MD Cholesterol in LDL [Mass/Vol] 46 mg/dL Normal 0-130 [facility] Comment on above: Result Comment: LDL Guidelines: <100 Desirable 100-129 Near to/above Desirable 130-159 Borderline >159 Undesirable Direct (measured) LDL and calculated LDL are not interchangeable tests. Performed By: #### L IPR #### [address] [address] Button [employer] Operator: Marshall Paulino MD Cholesterol.total/Ch olesterol in HDL [Mass ratio] 2.3 {ratio} Normal <5 [facility] Comment on above: Performed By: #### L IPR #### [address] [address] Button [employer] Operator: Marshall Paulino MD Triglyceride [Mass/Vol] 67 mg/dL Normal <150 [facility] Comment on above: Result Comment: Triglyceride Guidelines: <150 Desirable 150-199 Borderline 200-499 High >499 Very high Based on AHA Guidelines for fasting triglyceride, July 2012. Performed By: #### L IPR #### [address] [address] Button [employer] Operator: Marshall Paulino MD Resp Viral Panelon 3 Adenovirus Not detected Normal [facility] Comment on above: Performed By: #### L IPR #### [address] [address] Button [employer] Operator: Marshall Paulino MD Bordet.parapertussis Not detected Normal [facility] Comment on above: Performed By: #### L IPR #### [facility] [facility] [place] [address] Button Tufting Machine Operator: MD Kat Martintella pertussis Not detected Normal [facility] Comment on above: Performed By: #### L IPR #### [facility] [employer] [address] [place] [address] Button [employer] Operator: Marshall Paulino MD Chlamyd.pneumoniae Not detected Normal [facility] Comment on above: Performed By: #### L IPR #### [facility] [employer] [address] [place] [address] [employer] Operator: Marshall Paulino MD Coronavirus 229E Not detected [facility] Comment on above: Performed By: #### L IPR #### [facility] [employer] [address] [place] [address] Button [employer] Operator: Marshall Paulino MD Coronavirus HKU1 Not detected Normal [facility] Comment on above: Performed By: #### L IPR #### [facility] [employer] [address] [place] [address] Button [employer] Operator: Marshall Paulino MD Coronavirus NL63 Not detected [facility] Comment on above: Performed By: #### L IPR #### [facility] [employer] [address] [place] [address] Button [employer] Operator: Marshall Paulino MD Coronavirus OC43 Not detected Normal [facility] Comment on above: Performed By: #### L IPR #### [facility] [address] [place] [address] [employer] Operator: Marshall Paulino MD Human Metapneumo Not detected Normal [facility] Comment on above: Performed By: #### L IPR #### [facility] [employer] [address] [place] [address] Button [employer] Operator: Marshall Paulino MD Influenza A Not detected Normal [facility] Comment on above: Performed By: #### L IPR #### [address] [address] Button [employer] Machine Operator: Marshall Paulino MD Influenza B Not detected Normal [facility] Comment on above: Performed By: #### L IPR #### [address] [address] Button [employer] Operator: Marshall Paulino MD Mycoplas.pneumoniae Not detected Normal [facility] Comment on above: Result Comment: Perf ormed by multiplexed nucleic acid assay. Performed By: #### L IPR #### [address] [address] [employer] Operator: Marshall Paulino MD Parainfluenza 1 Not detected Normal [facility] Comment on above: Performed By: #### L IPR #### [facility] [employer] [address] [place] [address] Button [employer] Operator: Marshall Paulino MD Parainfluenza 2 Not detected [facility] Comment on above: Performed By: #### L IPR #### [address] [address] Button [employer] Operator: Marshall Paulino MD Parainfluenza 3 Not detected Normal [facility] Comment on above: Performed By: #### L IPR #### [facility] [employer] [address] [place] [address] Button [employer] Machine Operator: Marshall Paulino MD Parainfluenza 4 Not detected [facility] Comment on above: Performed By: #### L IPR #### [facility] [employer] [address] [place] [address] Button [employer] Operator: Marshall Paulino MD Resp Syncytial Virus Not detected Normal [facility] Comment on above: Performed By: #### L IPR #### [facility] [address] [place] [address] Button Tufting Machine Operator: Marshall Paulino MD Rhino/Enterovirus Not detected Normal [facility] Comment on above: Performed By: #### L IPR #### [facility] [address] [place] [address] Button Tu[employer]ing Machine Operator: Marshall Paulino MD SARS-CoV-2 (COVID-19) RNA DAHLIA+probe Ql (Unsp spec) Not detected Normal [facility] Comment on above: Performed By: #### L IPR #### [facility] [address] [place] [address] Button Tufting Machine Operator: Marshall Paulino MD Respiratory Panel, Molecular , with COVID-19 (Restricted: peds pts or suitable admitted adults)on 12-31-2022 Adenovirus PCR Not detected Not Detected [facility] B. parapertussis [id number] DNA DAHLIA+non-probe Ql (Nph) Not detected Not Detected [facility] B. pertussis DNA DAHLIA+probe Ql (Unsp spec) Not detected Not Detected [facility] Chlamydia pneumoniae By PCR Not detected Not Detected [facility] Coronavirus 229E PCR Not detected Not Detected [facility] Coronavirus HKU1 PCR Not detected Not Detected [facility] Coronavirus NL63 PCR Not detected Not Detected [facility] Coronavirus OC43 PCR Not detected Not Detected [facility] FLUAV RNA DAHLIA+non-probe Ql (Nph) Not detected Not Detected [facility] FLUBV RNA DAHLIA+non-probe Ql (Nph) Not detected Not Detected [facility] Human Metapneumovirus PCR Not detected Not Detected [facility] Mycoplasma pneumo by PCR Not detected Not Detected [facility] Comment on above: Performed by multipl exed nucleic acid assay. Parainfluenza 1 PCR Not detected Not Detected [facility] Parainfluenza 2 PCR Not detected Not Detected [facility] Parainfluenza 3 PCR Not detected Not Detected [facility] Parainfluenza 4 PCR Not detected Not Detected [facility] Resp Syncytial Virus PCR Not detected Not Detected [facility] Rhino/Enterovirus PCR Not detected Not Detected [facility] SARS-CoV-2 (COVID-19) RNA DAHLIA+non-probe Ql (Nph) Not detected Not Detected [facility] Specimen Description .NASOPHARYNGEAL SWAB [facility] Troponinon 12-31-2022 Troponin, High Sens 18 ng/L Normal 0-22 [facility] Comment on above: Result Comment: High Sensitivity Troponin values cannot be compared with other Troponin methodologies. Performed By: #### T ROPI, CDP, BMPX #### [facility] [address] [address] [employer] Machine Operator: Luis Carlos Del Castillo MD #### GLYHGB #### [address] [phone] Button [employer] Machine Operator: Marshall Paulino MD Troponin I.cardiac DL <= 0.01 ng/mL [Mass/Vol] 18 ng/L 0 - 22 ng/L [facility] Comment on above: High Sensitivity Tro ponin values cannot be compared with other Troponin methodologies. [facility] Brain Natri. Peptideon 12-30 Natriuretic peptide B (Bld) [Mass/Vol] 308 pg/mL High <300 [facility] Comment on above: Result Comment: An age-independent cutoff point of 300 pg/ml has a 98% negative predictive value excluding acute heart failure. Performed By: #### B TURPENTINE FARMER #### [facility] [address] [place] [address] Button Tu[employer]ing Machine Operator: Luis Carlos Del Castillo MD Brain Natriuretic Peptideon 12-30-2022 Interpretation and review of laboratory results Abnormal [facility] Natriuretic peptide B (Bld) [Mass/Vol] 308 pg/mL High NINF - 300 pg/mL [facility] Comment on above: An age-independent cutoff point of 300 pg/ml has a 98% negative predictive value excluding acute heart failure. [facility] CBC with Auto Differentialon 12-30-2022 Absolute Eos # 0.07 [facility] Absolute Immature Granulocyte 0.04 [facility] Absolute Lymph # 1.83 [facility] Absolute Warren # 0.91 [facility] Basophils (Bld) [#/Vol] 0.06 10*3/uL [facility] Basophils/100 WBC (Bld) 1 % 0 - 2 % [facility] Eosinophils/100 WBC (Bld) 1 % 1 - 4 % [facility] Hematocrit (Bld) [Volume fraction] 39.6 % Low 40.7 - 50.3 % [facility] Hemoglobin (Bld) [Mass/Vol] 13.8 g/dL 13.0 - 17.0 g/dL [facility] Immature granulocytes/100 WBC (Bld) 0 % 0 [facility] Interpretation and review of laboratory results Abnormal [facility] Lymphocytes/100 WBC (Bld) 18 % Low 24 - 43 % [facility] MCH (RBC) [Entitic mass] 31.8 pg 25.2 - 33.5 pg [facility] MCHC (RBC) [Mass/Vol] 34.8 g/dL 28.4 - 34.8 g/dL [facility] MCV (RBC) [Entitic vol] 91.2 fL 82.6 - 102.9 fL [facility] Monocytes/100 WBC (Bld) 9 % 3 - 12 % [facility] NRBC Automated 0.0 0.0 per 100 WBC [facility] Platelet distribution width (Bld) [Ratio] 13.5 % 11.8 - 14.4 % [facility] Platelet mean volume (Bld) [Entitic vol] 9.9 fL 8.1 - 13.5 fL [facility] Platelets (Bld) [#/Vol] 189 10*3/uL [facility] RBC (Bld) [#/Vol] 4.34 10*6/uL 4.21 - 5.77 m/uL [facility] Segmented neutrophils/100 WBC (Bld) 71 % High 36 - 65 % [facility] Segs Absolute 7.15 [facility] WBC (Bld) [#/Vol] 10.1 10*3/uL [facility] CBC with Diffon 12-30-2022 Abs. Basophil 0.06 k/uL Normal 0.00-0.20 [facility] Comment on above: Performed By: #### Ileana ALONZO CP, CDP #### [facility] [address] [place], [place] [phone] [employer] Operator: Luis Carlos Del Castillo MD Abs.Imm.Granulocyte 0.04 k/uL Normal 0.00-0.30 [facility] Comment on above: Performed By: #### Ileana ALONZO CP, CDP #### [facility] [address] [place], [facility]83 Button [employer] Operator: Luis Carlos Del Castillo MD Abs.Neutrophil (Seg) 7.15 k/uL Normal 1.50-8.10 [facility] Comment on above: Performed By: #### Ileana ALONZO CP, CDP #### [facility] [address] [place], [place] [address] [employer] Operator: Luis Carlos Del Castillo MD Basophils/100 WBC (Bld) 1 % Normal 0-2 [facility] Comment on above: Performed By: #### Ileana ALONZO CP, CDP #### [address] [place], [facility]83 [employer] Operator: Luis Carlos Del Castillo MD Eosinophils (Bld) [#/Vol] 0.07 10*3/uL Normal 0.00-0.44 [facility] Comment on above: Performed By: #### Ileana ALONZO CP, CDP #### [facility] [address] [place], [facility]83 [employer] Operator: Luis Carlos Del Castillo MD Eosinophils/100 WBC (Bld) 1 % Normal 1-4 [facility] Comment on above: Performed By: #### Ileana ALONZO CP, CDP #### [facility] [address] [place], [facility]83 [employer] Operator: Luis Carlos Del Castillo MD Erythrocyte distribution width (RBC) [Ratio] 13.5 % Normal 11.8-14.4 [facility] Comment on above: Performed By: #### Ileana ALONZO CP, CDP #### [facility] [address] [place] [address] Dr. [place], [place] [phone] [employer] Operator: Luis Carlos Del Castillo MD Hematocrit (Bld) [Volume fraction] 39.6 % Low 40.7-50.3 [facility] Comment on above: Performed By: #### Ileana ALONZO CP, CDP #### [address] [place] [phone] [employer] Operator: Luis Carlos Del Castillo MD Hemoglobin (Bld) [Mass/Vol] 13.8 g/dL Normal 13.0-17.0 [facility] Comment on above: Performed By: #### Ileana ALONZO CP, CDP #### [address] [place], [facility]83 [employer] Operator: Luis Carlos Del Castillo MD Immature granulocytes/100 WBC (Bld) 0 % Normal 0 [facility] Comment on above: Performed By: #### Ileana ALONZO CP, CDP #### [address] [place] [id number] [employer] Operator: Luis Carlos Del Castillo MD Lymphocytes (Bld) [#/Vol] 1.83 10*3/uL Normal 1.10-3.70 [facility] Comment on above: Performed By: #### Ileana ALONZO CP, CDP #### [facility] [address] [place] [address] Dr. [place], [facility]83 [employer] Operator: Luis Carlos Del Castillo MD Lymphocytes/100 WBC (Bld) 18 % Low 24-43 [facility] Comment on above: Performed By: #### Ileana ALONZO CP, CDP #### [facility] [address] [place] [address] Dr. [place], [facility]83 [employer] Operator: Luis Carlos Del Castillo MD MCH (RBC) [Entitic mass] 31.8 pg Normal 25.2-33.5 [facility] Comment on above: Performed By: #### Ileana ALONZO CP, CDP #### [facility] [address] [place] [address] [employer] Operator: Luis Carlos Del Castillo MD MCHC (RBC) [Mass/Vol] 34.8 g/dL Normal 28.4-34.8 [facility] Comment on above: Performed By: #### Ileana ALONZO CP, CDP #### [facility] [address] [place] [address] [employer] Operator: Luis Carlos Del Castillo MD MCV (RBC) [Entitic vol] 91.2 fL Normal 82.6-102.9 [facility] Comment on above: Performed By: #### Ileana ALONZO CP, CDP #### [facility] [address] [place], [place] [phone] [employer] Operator: Luis Carlos Dle Castillo MD Monocytes (Bld) [#/Vol] 0.91 10*3/uL Normal 0.10-1.20 [facility] Comment on above: Performed By: #### Ileana ALONZO CP, CDP #### [facility] [address] [place], [place] [phone] [employer] Operator: Luis Carlos Del Castillo MD Monocytes/100 WBC (Bld) 9 % Normal 3-12 [facility] Comment on above: Performed By: #### Ileana ALONZO CP, CDP #### [facility] [address] [place] [address] [employer] Operator: Luis Carlos Del Castillo MD Neutrophil (Seg) 71 % High 36-65 [facility] Comment on above: Performed By: #### Ileana ALONZO CP, CDP #### [facility] [address] [place], [place] [address] Button Tufting Machine Operator: Luis Carlos Del Castillo MD NRBC Automated 0.0 per 100 WBC Normal 0.0 [facility] Comment on above: Performed By: #### Ileana ALONZO CP, CDP #### [facility] [address] [place], [place] [id number] [employer]fting Machine Operator: Luis Carlos Del Castillo MD Platelet mean volume (Bld) [Entitic vol] 9.9 fL Normal 8.1-13.5 [facility] Comment on above: Performed By: #### Ileana ALONZO CP, CDP #### [facility] [address] [place] [address] [place] [address] [employer] Tufting Machine Operator: Luis Carlos Del Castillo MD Platelets (Bld) [#/Vol] 189 10*3/uL Normal 138-453 [facility] Comment on above: Performed By: #### Ileana ALONZO CP, CDP #### [address] [place] [address] Button [employer]ing Machine Operator: Luis Carlos Del Castillo MD RBC (Bld) [#/Vol] 4.34 10*6/uL Normal 4.21-5.77 [facility] Comment on above: Performed By: #### Ileana ALONZO CP, CDP #### [address] [place], [place] [id number] [employer]ing Machine Operator: Luis Carlos Del Castillo MD WBC (Bld) [#/Vol] 10.1 10*3/uL Normal 3.5-11.3 [facility] Comment on above: Performed By: #### Ileana ALONZO CP, CDP #### [facility] [address] [place] [address] Dr[place], [place] [phone] [employer] Operator: Luis Carlos Del Castillo MD COVID-19, Rapidon 12-30-2022 SARS-CoV-2 (COVID-19) RdRp gene DAHLIA+probe Ql (Resp) Not detected Not Detected [facility] Comment on above: Rapid NAAT: [...] management decisions. Fact sheet for Healthcare Providers: https://www.fda.gov/media/140516/download Fact sheet for Patients: https://www.fda.gov/media/148214/download Methodology: Isothermal Nucleic Acid Amplification Specimen Description .NASOPHARYNGEAL SWAB [facility] CT CHEST PULMONARY EMBOLISM W CONTRASTon [...] Dov Love MD 12/30/22 Final result Normal [facility] Negative for acute pulmonary embolus Right-sided aortic arch Bilateral patchy pulmonary infiltrates which are predominantly peripheral which may be related atypical infectious etiology. Large hiatal hernia and wall thickening in the distal esophagus. An esophagram or endoscopy may be helpful for further evaluation if clinically indicated. [facility] EXAMINATION: CTA OF THE CHEST [...] No acute bone or soft tissue abnormality. [facility] Dov Love MD - 12/30/2022 [...] helpful for further evaluation if clinically indicated. [facility] [employer] Phone: Radiology Study observation (narrative) [facility] [employer] Phone: CT CHEST PULMONARY EMBOLISM W CONTRASTOrdered By: Dov Love on 12-30-2022 [facility] [employer] Phone: Comp Metabolic Profon 2022 Albumin [Mass/Vol] 3.9 g/dL Normal 3.5-5.2 [facility] Comment on above: Performed By: #### T NATHAN ALONZO, CDP #### [facility] [address] [place] [address] [employer] Tufting Machine Operator: Luis Carlos Del Castillo MD Albumin/Glob Ratio 1.3 Normal 1.0-2.5 [facility] Comment on above: Performed By: #### T NATHAN ALONZO, CDP #### [facility] [address] [place] [address] Button Tufting Machine Operator: Luis Carlos Del Castillo MD Alkaline Phos 102 U/L Normal 40-129 [facility] Comment on above: Performed By: #### T NATHAN ALONZO, CDP #### [facility] [address] [place] [address] Button Tufting Machine Operator: Luis Carlos Del Castillo MD ALT [Catalytic activity/Vol] 19 U/L Normal 5-41 [facility] Comment on above: Performed By: #### T NATHAN ALONZO, CDP #### [facility] [address] [place], [place] [phone] Button [employer]fting Machine Operator: Luis Carlos Del Castillo MD Anion gap [Moles/Vol] 10 mmol/L Normal 9-17 [facility] Comment on above: Performed By: #### T NATHAN ALONZO, CDP #### [facility] [address] [place], [place] [phone] Button [employer]ing Machine Operator: Luis Carlos Del Castillo MD AST [Catalytic activity/Vol] 16 U/L Normal <40 [facility] Comment on above: Performed By: #### Ileana ALONZO CP, CDP #### [facility] [address] [place], [place] [phone] Button Tufting Machine Operator: Luis Carlos Del Castillo MD Bilirubin [Mass/Vol] 0.8 mg/dL Normal 0.3-1.2 [facility] Comment on above: Performed By: #### Ileana ALONZO CP, CDP #### [facility] [address] [place], [place] [phone] Button Tufting Machine Operator: Luis Carlos Del Castillo MD BUN/CRE Ratio 25 High 9-20 [facility] Comment on above: Performed By: #### Ileana ALONZO CP, CDP #### [facility] [address] [place], [place] 155[address]83 Button Tufting Machine Operator: Luis Carlos Del Castillo MD Calcium [Mass/Vol] 9.5 mg/dL Normal 8.6-10.4 [facility] Comment on above: Performed By: #### Ileana ALONZO CP, CDP #### [facility] [address] [place], [place] [phone] Button Tufting Machine Operator: Luis Carlos Del Castillo MD Chloride [Moles/Vol] 105 mmol/L Normal 98-107 [facility] Comment on above: Performed By: #### Ileana ALONZO CP, CDP #### [facility] [address] [place] [address] Button Tufting Machine Operator: Luis Carlos Del Castillo MD CO2 [Moles/Vol] 24 mmol/L Normal 20-[address] [facility] Comment on above: Performed By: #### Ileana ALONZO CP, CDP #### [facility] [address] [place] [address] Button Tufting Machine Operator: Luis Carlos Del Castillo MD Creatinine [Mass/Vol] 0.63 mg/dL Low 0.70-1.20 [facility] Comment on above: Performed By: #### Ileana ALONZO CP, CDP #### [facility] [address] [place] [address] Button Tufting Machine Operator: Luis Carlos Del Castillo MD GFR/1.73 sq M.predicted among non-blacks MDRD (S/P/Bld) [Vol rate/Area] mL/min/{1.73_m2} Normal >60 [facility] Comment on above: Result Comment: These results [...] By: #### Ileana ALONZO CP, CDP #### [facility] [address] [place] [address] Button Tufting Machine Operator: Luis Carlos Del Castillo MD Glucose [Mass/Vol] 113 mg/dL High 70-99 [facility] Comment on above: Performed By: #### Ileana ALONZO CP, CDP #### [facility] [address] [place] [address] Button Tufting Machine Operator: Luis Carlos Del Castillo MD Potassium [Moles/Vol] 3.9 mmol/L Normal 3.7-5.3 [facility] Comment on above: Performed By: #### T NATHAN ALONZO, CDP #### [facility] [address] [place] [address] Button Tufting Machine Operator: Luis Carlos Del Castillo MD Protein [Mass/Vol] 7.0 g/dL Normal 6.4-8.3 [facility] Comment on above: Performed By: #### Ileana ALONZO CP, CDP #### [facility] [address] [place], [place] [phone] Button Tufting Machine Operator: Luis Carlos Del Castillo MD Sodium [Moles/Vol] 139 mmol/L Normal 135-144 [facility] Comment on above: Performed By: #### Ileana ALONZO CP, CDP #### [facility] [address] [place] [address] Button Tufting Machine Operator: Luis Carlos Del Castillo MD Urea nitrogen [Mass/Vol] 16 mg/dL Normal 8-23 [facility] Comment on above: Performed By: #### Ileana ALONZO CP, CDP #### [facility] [address] [place] [address] Button Tufting Machine Operator: Luis Carlos Del Castillo MD [facility] Metabolic Pane [facility] 12-30-2022 Albumin [Mass/Vol] 3.9 g/dL 3.5 - 5.2 g/dL [facility] Albumin/Globulin [Mass ratio] 1.3 {ratio} 1.0 - 2.5 [facility] ALP [Catalytic activity/Vol] 102 U/L 40 - 129 U/L [facility] ALT [Catalytic activity/Vol] 19 U/L 5 - 41 U/L [facility] Anion gap [Moles/Vol] 10 mmol/L 9 - 17 mmol/L [facility] AST [Catalytic activity/Vol] 16 U/L NINF - 40 U/L [facility] Bilirubin [Mass/Vol] 0.8 mg/dL 0.3 - 1 .2 mg/dL [facility] Calcium [Mass/Vol] 9.5 mg/dL 8.6 - 10. 4 mg/dL [facility] Chloride [Moles/Vol] 105 mmol/L 98 - 10 7 mmol/L [facility] CO2 [Moles/Vol] 24 mmol/L 20 - 31 mmol/L [facility] Creatinine [Mass/Vol] 0.63 mg/dL Low 0.70 - 1.20 mg/dL [facility] GFR/1.73 sq M.predicted MDRD (S/P/Bld) [Vol rate/Area] - PINF [facility] Comment on above: These results [...] 113 mg/dL High 70 - 99 mg/dL [facility] Interpretation and review of laboratory results Abnormal [facility] Potassium [Moles/Vol] 3.9 mmol/L 3.7 - 5.3 mmol/L [facility] Protein [Mass/Vol] 7.0 g/dL 6.4 - 8.3 g/dL [facility] Sodium [Moles/Vol] 139 mmol/L 135 - 144 mmol/L [facility] Urea nitrogen [Mass/Vol] 16 mg/dL 8 - 23 mg/dL [facility] Urea nitrogen/Creatinine (Bld) [Mass ratio] 25 High 9 - 20 [facility] EKG 12 Leadon 12-30-2022 Atrial Rate 51 BPM [facility] Work Phone: P [place] 39 degrees [facility] Work Phone: P-R Interval 146 ms [facility] Work Phone: Q-T Interval 424 ms [facility] Work Phone: QRS Duration 72 ms [facility] Work Phone: QTc Calculation (Bazett) 390 ms [employer] [employer] Phone: R [place] 56 degrees [employer] Phone: T [place] 73 degrees [employer] Phone: Ventricular Rate 51 BPM [facility]EE [employer] Phone: Poor data qualit y, interpretation may be adversely affected Sinus bradycardia Nonspecific ST and T wave abnormality Abnormal ECG Confirmed by Fany Mohr MD ([id number]) on 12/30/2022 8:21:48 AM [facility] Fany Mohr MD - 12/30/2022 Poor data quality, interpretation may be adversely affected Sinus bradycardia Nonspecific ST and T wave abnormality Abnormal ECG Confirmed by Fany Mohr MD ([id number]) on 12/30/2022 8:21:48 AM [employer] Work Phone: [facility] [employer] Work Phone: EKG Rhythm Stripon 3 [facility] [employer] Echocardiogram complete 2D w ith doppler with coloron 12-30-2022 Left ventricular Ejection fraction 55 [employer] Phone: LVEF MODALITY ECHO [employer] Phone: [facility] Transthoracic Echocardiography Report (TTE) Patient Name ALVA Date of Study 12/30/2022 NOEL Vaca Date of 1960 Gender Male Age 62 year(s) Race Room Number 0327 Height: 66 inch, 167.64 cm Corporate ID [id number] Weight: 160 pounds, 72.6 kg # Patient Acct [id number] BSA: 1.82 m^2 BMI: 25.82 kg/m^2 # MR # [id number] Reconsignment Clerk Keke Tineo Interpreting Physician Fany Mohr Fellow Referring Nurse Cece Villalobos, Practitioner [employer] Interpreting Referring Physician Fellow Type of Study TTE procedure:2D Echocardiogram, M-Mode, Doppler, Color Doppler. Procedure Date Date: 12/30/2022 Start: 02:20 PM Study Location: [facility] Indications:Chest pain. History / Tech. Comments: Dx: NATHAN Patient Status: Inpatient Height: 66 inches Weight: [...] MD / Result, Unknown Provider - 12/30/2022 [facility] Transthoracic Echocardiography Report (TTE) Patient Name ABBY Date of Study 12/30/2022 NOEL Vaca Date of 1960 Gender Male Age 62 year(s) Race Room Number 0327 Height: 66 inch, 167.64 cm Corporate ID [id number] Weight: 160 pounds, 72.6 kg # Patient Acct [id number] BSA: 1.82 m^2 BMI: 25.82 kg/m^2 # MR # [id number] Reconsignment Clerk Keke Tineo Interpreting Physician Fany Mohr Fellow Referring Nurse Cece Villalobos, Practitioner SRE[employer] Interpreting Referring Physician Fellow Type of Study TTE procedure:2D Echocardiogram, M-Mode, Doppler, Color Doppler. Procedure Date Date: 12/30/2022 Start: 02:20 PM Study Location: [facility] Indications:Chest pain. History / Tech. Comments: Dx: [...] Wall E' velocity:0.12 m/s Lateral Wall E/E':6.28 [facility] [employer] Test Phone: [facility] [employer] Phone: Resp Viral Panelon 3 Source: .NASOPHARYNGEAL SWAB Normal [facility] Comment on above: Performed By: #### L IPR #### [facility] [employer] [address] [place] [address] Button Tufting Machine Operator: Marshall Paulino MD [id number] 12-30-2022 SARS-CoV-2 (COVID-19) RNA DAHLIA+probe Ql (Unsp spec) Not detected Normal [facility] Comment on above: Result Comment: Rapid NAAT: [...] management decisions. Fact sheet for Healthcare Providers: https://www.fda.gov/media/537019/download Fact sheet for Patients: https://www.fda.gov/media/025252/download Methodology: Isothermal Nucleic Acid Amplification Performed By: #### L IPR #### [facility] [employer] [address] [place] [address] Button Tufting Machine Operator: Marshall Paulino MD Troponinon 12-30-2022 Troponin, High Sens 17 ng/L Normal 0-22 [facility] Comment on above: Result Comment: High Sensitivity Troponin values cannot be compared with other Troponin methodologies. Performed By: #### L IPR #### [facility] [employer] [address] [place] [address] Button Tufting Machine Operator: Marshall Paulino MD Troponin, High Sens 19 ng/L Normal 0-22 [facility] Comment on above: Result Comment: High Sensitivity Troponin values cannot be compared with other Troponin methodologies. Performed By: #### T NATHAN ALONZO, CDP #### [facility] [address] [place], [place] [phone] Button Tufting Machine Operator: Luis Carlos Del Castillo MD Troponin I.cardiac DL <= 0.01 ng/mL [Mass/Vol] 17 ng/L 0 - 22 ng/L [facility] Comment on above: High Sensitivity Tro ponin values cannot be compared with other Troponin methodologies. [facility] Troponin I.cardiac DL <= 0.01 ng/mL [Mass/Vol] 19 ng/L 0 - 22 ng/L [facility] Comment on above: High Sensitivity Tro ponin values cannot be compared with other Troponin methodologies. [facility] XR CHEST PORTABLEon 12-31-19 XR [...] Sherrill Parmar MD 12/30/22 Final result Normal [facility] There is a new left midlung opacity and adjacent mildly prominent interstitial markings, suggestive of pneumonia. Recommend imaging follow-up to resolution to exclude an underlying lesion. [facility] EXAMINATION: ONE XRAY VIEW OF THE CHEST 12/30/2022 6:43 am COMPARISON: 03/25/2022 chest radiograph HISTORY: ORDERING SYSTEM PROVIDED HISTORY: chest pain TECHNOLOGIST PROVIDED HISTORY: chest pain FINDINGS: The cardiomediastinal silhouette is within normal limits of size. There is a new left midlung opacities suggestive of pneumonia. Mildly prominent bilateral interstitial markings. No pleural effusion at or pneumothorax. No acute osseous abnormality. [facility] Sherrill Parmar MD - 12/30/2022 [...] to resolution to exclude an underlying lesion. [employer] Phone: Radiology Study observation (narrative) [employer] Phone: XR CHEST PORTABLEOrdered By: Sherrill Parmar on 12-30-2022 [facility] [employer] Phone: XR LSPINE MIN 4 VIEWSon 12-04 [...] PABLO CHAMBERS Date: 2022-12-18 13:59 Normal [facility] MRI LSPINE WO CONon 11-06-19 23 [...] PABLO CHAMBERS Date: 2022-11-06 15:08 Normal [facility] TESTOSTERONE, TOTALon 2021 Testosterone [Mass/Vol] 279 ng/dL Normal 264-916 [facility] Comment on above: Result Comment: Adul t male reference interval is based on a population of healthy nonobese males (BMI <30) between 19 and 39 years old. axel [place].al. JCEM 2017,102;0001-5339. PMID: [id number]. Performed By: #### H GBHCT #### [facility] [address] [place] [address] Dr. Raimundo Estrada CBC AUTO DIFFon 09-11-2022 BASO # 0.1 103/ul Normal 0.0-0.1 [facility] Comment on above: Performed By: #### H GBHCT #### [facility] [address] [place] [address] Dr. Raimundo Estrada Basophils/100 WBC (Bld) 0.6 % Normal 0.2-2.0 [facility] Comment on above: Performed By: #### H GBHCT #### [facility] [address] [place] [address] Dr. Raimundo Estrada EO # 0.2 103/ul Normal 0.0-0.7 [facility] Comment on above: Performed By: #### H GBHCT #### [facility] [address] [place] [address] Dr. Raimundo Estrada Eosinophils/100 WBC (Bld) 2.4 % Normal 0.9-7.0 [facility] Comment on above: Performed By: #### H GBHCT #### [facility] [address] [place] [address] Dr. Raimundo Estrada Erythrocyte distribution width (RBC) [Ratio] 14.1 % Normal 11.0-15.0 [facility] Comment on above: Performed By: #### H GBHCT #### [facility] [address] [place] [address] Dr. Raimundo Estrada Hematocrit (Bld) [Volume fraction] 40.2 % Critically low 42.0-54.0 [facility] Comment on above: Performed By: #### H GBHCT #### [facility] [address] [place] [address] Dr. Raimundo Estrada Hemoglobin (Bld) [Mass/Vol] 13.4 g/dL Critically low 14.0-18.0 [facility] Comment on above: Performed By: #### H GBHCT #### [facility] [address] [place] [address] Dr. Raimundo Estrada IG # 0.03 10e3/ul Normal 0.00-0.03 [facility] Comment on above: Performed By: #### H GBHCT #### [facility] [address] [place] [address] Dr. Raimundo Estrada IG % 0.4 % Normal 0.0-0.5 [facility] Comment on above: Performed By: #### H GBHCT #### [facility] [address] [place] [address] Dr. Raimundo Estrada LYMPH # 1.7 103/ul Normal 1.2-3.8 [facility] Comment on above: Performed By: #### H GBHCT #### [facility] [address] [place] [address] Dr. Raimundo Estrada Lymphocytes/100 WBC (Bld) 20.8 % Normal 20.5-60.0 [facility] Comment on above: Performed By: #### H GBHCT #### [facility] [address] [place] [address] Dr. Raimundo Estrada MANUAL DIFF REQ NO Normal [facility] Comment on above: Performed By: #### H GBHCT #### [facility] [address] [place] [address] Dr. Raimundo Estrada MCH (RBC) [Entitic mass] 31.8 pg Normal 25.9-34.0 [facility] Comment on above: Performed By: #### H GBHCT #### [facility] [address] [place] [address] Dr. Raimundo Estrada MCHC (RBC) [Mass/Vol] 33.3 g/dL Normal 29.9-35.2 [facility] Comment on above: Performed By: #### H GBHCT #### [facility] [address] [place] [address] Dr. Raimundo Estrada MCV (RBC) [Entitic vol] 95.3 fL Critically high 80.0-94.0 [facility] Comment on above: Performed By: #### H GBHCT #### [facility] [address] [address] [address] Raimundo Estrada MONO # 0.8 103/ul Normal 0.3-0.8 [facility] Comment on above: Performed By: #### H GBHCT #### [facility] [address] [address] [address] Raimundo Estrada Monocytes/100 WBC (Bld) 9.7 % Normal 1.7-12.0 [facility] Comment on above: Performed By: #### H GBHCT #### [facility] [address] [place] [address] Dr. Raimundo Estrada NEUT # 5.2 103/ul Normal 1.4-6.5 [facility] Comment on above: Performed By: #### H GBHCT #### [facility] [address] [place] [address] Dr. Raimundo Estrada Neutrophils/100 WBC (Bld) 66.1 % Normal 43.0-75.0 [facility] Comment on above: Performed By: #### H GBHCT #### [facility] [address] [place] [address] Dr. Raimundo Estrada Platelet mean volume (Bld) [Entitic vol] 10.1 fL Normal 9.5-13.5 [facility] Comment on above: Performed By: #### H GBHCT #### [facility] [address] [place] [address] Dr. Raimundo Estrada PLT 189 103/ul Normal 150-450 [facility] Comment on above: Performed By: #### H GBHCT #### [facility] [address] [place] [address] Dr. Raimundo Estrada RBC 4.22 106/ul Critically low 4.70-6.10 [facility] Comment on above: Performed By: #### H GBHCT #### [facility] [address] [place] [address] Dr. Raimundo Estrada WBC 7.9 103/ul Normal 4.0-11.0 [facility] Comment on above: Performed By: #### H GBHCT #### [facility] [address] [place] [address] Dr. Raimundo Estrada FREE T3on 09-11-2022 FREE T3 2.85 pg/mlL Normal 2.18-3.98 [facility] Comment on above: Performed By: #### T SH, FT3, LIVER, BMP, LIPID #### [facility] [address] [address] [address] Raimundo Estrada FREE T4on 09-11-2022 Free T4 [Mass/Vol] 0.85 ng/dL Normal 0.76-1.46 [facility] Comment on above: Performed By: #### H GBHCT #### [facility] [address] [place] [address] Dr. Raimundo Estrada GLYCOHEMOGLOBIN A1Con 2021 ADA RECOMMENDATION SEE BELOW Normal [facility] Comment on above: Result Comment: ADA RECOMMENDED LIMIT 4.0 - 6.0 ADA THERAPEUTIC TARGET < 7.0 ACTION SUGGESTED > 7.0 Performed By: #### H GBHCT #### [facility] [address] [place] [address] Dr. Raimundo Estrada Glucose [Mass/Vol] 111 mg/dL Normal [facility] Comment on above: Performed By: #### H GBHCT #### [facility] [address] [place] [address] Dr. Raimundo Estrada HbA1c (Bld) [Mass fraction] 5.5 % Normal 4.5-6.2 [facility] Comment on above: Performed By: #### H GBHCT #### [facility] [address] [place] [address] Dr. Raimundo Estrada LIPID PROFILEon 09-11-2022 CHOL-HDL RATIO NORM SEE BELOW Normal [facility] Comment on above: Result Comment: 3.3 - 4.4 LOW RISK 4.4 - 7.1 AVERAGE RISK 7.1 - 11.0 MODERATE RISK >11.0 HIGH RISK Performed By: #### T SH, FT3, LIVER, BMP, LIPID #### [facility] [address] [address] [address] Raimundo Estrada Cholesterol [Mass/Vol] 129 mg/dL Normal <=200 [facility] Comment on above: Performed By: #### T SH, FT3, LIVER, BMP, LIPID #### [facility] [address] [address] [address] Raimundo Estrada Cholesterol in HDL [Mass/Vol] 62 mg/dL Critically high 40-60 [facility] Comment on above: Performed By: #### T SH, FT3, LIVER, BMP, LIPID #### [facility] [address] [address] [address] Raimundo Estrada Cholesterol in LDL [Mass/Vol] 53.4 mg/dL Normal [facility] Comment on above: Performed By: #### T SH, FT3, LIVER, BMP, LIPID #### [facility] [address] [address] [address] Raimundo Estrada Cholesterol.total/Ch olesterol in HDL [Mass ratio] 2.1 {ratio} Normal [facility] Comment on above: Performed By: #### T SH, FT3, LIVER, BMP, LIPID #### [facility] [address] [address] [address] Raimundo Estrada HDL NORMAL > or = 60 mg/dl - LO W CARDIOVASCULAR RISK <40 mg/dl - HIGH CARDIOVASCULAR RISK Normal [facility] Comment on above: Performed By: #### T SH, FT3, LIVER, BMP, LIPID #### [facility] [address] [address] [address] Raimundo Estrada LDL CALC NORMAL SEE BELOW Normal [facility] Comment on above: Result Comment: <100 mg/dl OPTIMAL 100 - 129 mg/dl NEAR OR ABOVE OPTIMAL 130 - 159 mg/dl BORDERLINE HIGH 160 - 189 mg/dl HIGH >190 mg/dl VERY HIGH Performed By: #### T SH, FT3, LIVER, BMP, LIPID #### [facility] [address] [address] [address] Raimundo Estrada Triglyceride [Mass/Vol] 68 mg/dL Normal <=150 [facility] Comment on above: Performed By: #### T SH, FT3, LIVER, BMP, LIPID #### [facility] [address] [place] [address] Dr. Raimundo Estrada VLDL CALC 13.6 mg/dL Normal [facility] Comment on above: Performed By: #### T SH, FT3, LIVER, BMP, LIPID #### [facility] [address] [place] [address] Dr. Raimundo Estrada LIVER PROFILEon 09-11-2022 Albumin [Mass/Vol] 3.8 g/dL Normal 3.4-5.0 [facility] Comment on above: Performed By: #### T SH, FT3, LIVER, BMP, LIPID #### [facility] [address] [place] [address] Dr. Raimundo Estrada Albumin/Globulin [Mass ratio] 1.0 {ratio} Normal [facility] Comment on above: Performed By: #### T SH, FT3, LIVER, BMP, LIPID #### [facility] [address] [place] [address] Dr. Raimundo Estrada ALP [Catalytic activity/Vol] 103 U/L Normal 46-116 [facility] Comment on above: Performed By: #### T SH, FT3, LIVER, BMP, LIPID #### [facility] [address] [place] [address] Dr. Raimundo Estrada ALT [Catalytic activity/Vol] 46 U/L Normal 16-63 [facility] Comment on above: Performed By: #### T SH, FT3, LIVER, BMP, LIPID #### [facility] [address] [place] [address] Dr. Raimundo Estrada AST [Catalytic activity/Vol] 35 U/L Normal 15-37 [facility] Comment on above: Performed By: #### T SH, FT3, LIVER, BMP, LIPID #### [facility] [address] [place] [address] Dr. Raimundo Estrada BILI, CONJUGATED 0.2 mg/dL Normal 0.0-0.2 [facility] Comment on above: Performed By: #### T SH, FT3, LIVER, BMP, LIPID #### [facility] [address] [place] [address] Dr. Raimundo Estrada Bilirubin [Mass/Vol] 0.7 mg/dL Normal 0.2-1.0 [facility] Comment on above: Performed By: #### T SH, FT3, LIVER, BMP, LIPID #### [facility] [address] [place] [address] Dr. Raimundo Estrada Globulin (S) [Mass/Vol] 3.8 g/dL Normal [facility] Comment on above: Performed By: #### T SH, FT3, LIVER, BMP, LIPID #### [facility] [address] [place] [address] Dr. Raimundo Estrada Protein [Mass/Vol] 7.6 g/dL Normal 6.4-8.2 [facility] Comment on above: Performed By: #### T SH, FT3, LIVER, BMP, LIPID #### [facility] [address] [place] [address] Dr. Raimundo Estrada PROF CHEM 8 (BAS METB)on Anion gap [Moles/Vol] 13.9 mmol/L Normal [facility] Comment on above: Performed By: #### T SH, FT3, LIVER, BMP, LIPID #### [facility] [address] [place] [address] Dr. Raimundo Estrada Calcium [Mass/Vol] 9.3 mg/dL Normal 8.5-10.1 [facility] Comment on above: Performed By: #### T SH, FT3, LIVER, BMP, LIPID #### [facility] [address] [place] [address] Dr. Raimundo Estrada Chloride [Moles/Vol] 104 mmol/L Normal 98-107 [facility] Comment on above: Performed By: #### T SH, FT3, LIVER, BMP, LIPID #### [facility] [address] [place] [address] Dr. Raimundo Estrada CO2 [Moles/Vol] 28.6 mmol/L Normal 21.0-32.0 [facility] Comment on above: Performed By: #### T SH, FT3, LIVER, BMP, LIPID #### [facility] [address] [address] [address] Raimundo Estrada Creatinine [Mass/Vol] 0.77 mg/dL Normal 0.70-1.30 [facility] Comment on above: Performed By: #### T SH, FT3, LIVER, BMP, LIPID #### [facility] [address] [place] [address] Dr. Raimundo Estrada EGFR-AF SWEDISH >60 Normal >=60 [facility] Comment on above: Performed By: #### T SH, FT3, LIVER, BMP, LIPID #### [facility] [address] [place] [address] Dr. Raimundo Estrada EGFR-NON AF SWEDISH >60 Normal >=60 [facility] Comment on above: Performed By: #### T SH, FT3, LIVER, BMP, LIPID #### [facility] [address] [place] [address] Dr. Raimundo Estrada Glucose [Mass/Vol] 90 mg/dL Normal 74-106 [facility] Comment on above: Performed By: #### T SH, FT3, LIVER, BMP, LIPID #### [facility] [address] [place] [address] Dr. Raimundo Estrada Potassium [Moles/Vol] 4.5 mmol/L Normal 3.5-5.1 [facility] Comment on above: Performed By: #### T SH, FT3, LIVER, BMP, LIPID #### [facility] [address] [place] [address] Dr. Raimundo Estrada Sodium [Moles/Vol] 142 mmol/L Normal 136-145 [facility] Comment on above: Performed By: #### T SH, FT3, LIVER, BMP, LIPID #### [facility] [address] [place] [address] Dr. Raimundo Estrada Urea nitrogen [Mass/Vol] 22.0 mg/dL Critically high 7.0-18.0 [facility] Comment on above: Performed By: #### T SH, FT3, LIVER, BMP, LIPID #### [facility] [address] [place], [place] [address] Dr. Raimundo Estrada Urea nitrogen/Creatinine [Mass ratio] 28.6 mg/mg Normal [facility] Comment on above: Performed By: #### T SH, FT3, LIVER, BMP, LIPID #### [facility] [address] [place], [place] [address] Dr. Raimundo Estrada TSHon 09-11-2022 TSH 1.375 uIU/mL Normal 0.358-3.[address] [facility] Comment on above: Performed By: #### T SH, FT3, LIVER, BMP, LIPID #### [facility] [address] [address] [address] Raimundo Estrada VITAMIN B12on 09-11-2022 Cobalamin (Vitamin B12) [Mass/Vol] 635.0 pg/mL Normal 193.0-986. 0 [facility] Comment on above: Performed By: #### L IPID #### [facility] [address] [address] [address] Raimundo Estrada General Surgery Office/Clini c [...] History Ongoing Asthma BMI 25.0-25.9,adult CAD in [place] artery DDD (degenerative disc disease), lumbar Depression Epigastric pain Gouty arthritis Hematemesis Hiatal hernia Iron deficiency anemia Polyp of sigmoid colon Vitamin D deficiency Historical No qualifying data Procedure/Surgical History Colonoscopy (06/26/2022), EGD - Esophagogastroduodenoscopy (06/26/2022), Cardiac catheterization (2018), Cardiac catheterization (2006), Cataract [...] Tab, 25 mg= 1 tab(s), Oral, BID Imnaha 5/325 Tab, 1 tab(s), Oral, BID Protonix [...] Coronary artery disease: Mother and Father. Normal [facility] Comment on above: Result Comment: Elec [...] sigmoid polyp that was not retrieved. Normal [facility] Pathology Noteon 06-28-2022 Pathology Note [id number]#[id number]:127 Normal [facility] Outside Colonoscopyon 2021 Outside Colonoscopy [id number]#[id number]:127 Normal [facility] HEMOGLOBIN AND HEMATOCRITon 06-26-2022 Hematocrit (Bld) [Volume fraction] 44.2 % Normal 42.0-54.0 [facility] Comment on above: Performed By: #### H GBHCT #### [facility] [address] [place] [address] Dr. Raimundo Estrada Hemoglobin (Bld) [Mass/Vol] 15.0 g/dL Normal 14.0-18.0 [facility] Comment on above: Performed By: #### H GBHCT #### [facility] [address] [place] [address] Dr. Raimundo Estrada Lab Reportson 06-24-2022 Lab Reports [id number]:127 Normal [facility] Covid-19 PCR (CVDTBH)on 06-06 SARS-CoV-2 (COVID-19) RNA DAHLIA+probe Ql (Unsp spec) Not detected Normal NOT DETECTED [facility] Comment on above: Result Comment: This test is not yet approved or cleared by the [place] FDA. When there are no FDA-approved or cleared tests available, and other criteria are met, FDA can make tests available under an emergency access mechanism called an Emergency Use Authorization (EUA). The EUA for this test is supported by the [place] of Health and Human Service's (HHS's) declaration [...] SARS-CoV-2. Performed By: #### H GBHCT #### [facility] [address] [address] [address] Raimundo Estrada Consent for Procedure/Surger yon 06-03-2022 Consent for Procedure/Surgery [id number]:127 Normal [facility] Pre-Certification Formon Pre-Certification Form [id number]#[id number]:127 [facility] Ambulatory Visit Summaryon 0 05-31-2022 Ambulatory Visit Summary NOEL ALVA Nola :1960 Visit Date:05/31/2022 Ambulatory Visit Instructions Your Diagnosis Epigastric pain Hematemesis Your Care Team Attending Physician - EMILY DRUMMOND, Julian Davis Primary Care Physician - MAGDA DRUMMOND, ROMARIO Referring Physician - ROMARIO MAN MD This Is Your Medications List pantoprazole (Protonix 40 mg Tab-DR) Contact prescribing physician if questions or concerns acetaminophen-hydrocodone (Imnaha 5/325 Tab) albuterol (albuterol HFA 90 mcg/inh [...] Epigastric pain Hematemesis Refills: 3 Pickup at [facility] Unchanged acetaminophen-hydrocodone (Imn[place] 5/ 325 Tab) 1 Tablets By Mouth [...] physician if questions or concerns Pharmacy Information [facility]: [address] [place], [place] [id number] [phone] Allergies No Known Allergies No Known Medication Allergies Problems Ongoing - Any problem that you are currently receiving treatment for. Asthma BMI 25.0-25.9,adult CAD in [place] artery DDD (degenerative disc disease), lumbar Depression Epigastric pain Gouty arthritis Hematemesis Iron deficiency anemia Vitamin D deficiency Normal [facility] Lab Reportson 05-30-2022 Lab Reports [id number]:127 Normal [facility] Lab Reportson 05-23-2022 Lab Reports [id number]#[id number]:127 Normal [facility] Lab Reports [id number]:127 Normal [facility] Physician Referralon Physician Referral [id number]:127 Normal [facility] CBC AUTO DIFFon 04-03-2022 BASO # 0.0 103/ul Normal 0.0-0.1 [facility] Comment on above: Performed By: #### C BC #### [facility] [address] [address] [address] Raimundo Estrada Basophils/100 WBC (Bld) 0.3 % Normal 0.2-2.0 [facility] Comment on above: Performed By: #### C BC #### [facility] [address] [place] [address] Dr. Raimundo Estrada EO # 0.1 103/ul Normal 0.0-0.7 [facility] Comment on above: Performed By: #### C BC #### [facility] [address] [address] [address] Raimundo Estrada Eosinophils/100 WBC (Bld) 0.7 % Critically low 0.9-7.0 [facility] Comment on above: Performed By: #### C BC #### [facility] [address] [address] [address] Raimundo Estrada Erythrocyte distribution width (RBC) [Ratio] 14.4 % Normal 11.0-15.0 [facility] Comment on above: Performed By: #### C BC #### [facility] [address] [address] [address] Raimundo Estrada Hematocrit (Bld) [Volume fraction] 38.2 % Critically low 42.0-54.0 [facility] Comment on above: Performed By: #### C BC #### [facility] [address] [place] [address] Dr. Raimundo Estrada Hemoglobin (Bld) [Mass/Vol] 12.8 g/dL Critically low 14.0-18.0 [facility] Comment on above: Performed By: #### C BC #### [facility] [address] [place] [address] Dr. Raimundo Estrada IG # 0.04 10e3/ul Critically high 0.00-0.03 [facility] Comment on above: Performed By: #### C BC #### [facility] [address] [place] [address] Dr. Raimundo Estrada IG % 0.3 % Normal 0.0-0.5 [facility] Comment on above: Performed By: #### C BC #### [facility] [address] [place] [address] Dr. Raimundo Estrada LYMPH # 1.1 103/ul Critically low 1.2-3.8 [facility] Comment on above: Performed By: #### C BC #### [facility] [address] [place] [address] Dr. Raimundo Estrada Lymphocytes/100 WBC (Bld) 9.4 % Critically low 20.5-60.0 [facility] Comment on above: Performed By: #### C BC #### [facility] [address] [place] [address] Dr. Raimundo Estrada MANUAL DIFF REQ NO Normal [facility] Comment on above: Performed By: #### C BC #### [facility] [address] [place] [address] Dr. Raimundo Estrada MCH (RBC) [Entitic mass] 30.7 pg Normal 25.9-34.0 [facility] Comment on above: Performed By: #### C BC #### [facility] [address] [place] [address] Dr. Raimundo Estrada MCHC (RBC) [Mass/Vol] 33.5 g/dL Normal 29.9-35.2 [facility] Comment on above: Performed By: #### C BC #### [facility] [address] [address] [address] Raimundo Estrada MCV (RBC) [Entitic vol] 91.6 fL Normal 80.0-94.0 [facility] Comment on above: Performed By: #### C BC #### [facility] [address] [address] [address] Raimundo Estrada MONO # 0.7 103/ul Normal 0.3-0.8 [facility] Comment on above: Performed By: #### C BC #### [facility] [address] [place] [address] Dr. Raimundo Estrada Monocytes/100 WBC (Bld) 5.8 % Normal 1.7-12.0 [facility] Comment on above: Performed By: #### C BC #### [facility] [address] [place] [address] Dr. Raimundo Estrada NEUT # 9.6 103/ul Critically high 1.4-6.5 [facility] Comment on above: Performed By: #### C BC #### [facility] [address] [place] [address] Dr. Raimundo Estrada Neutrophils/100 WBC (Bld) 83.5 % Critically high 43.0-75.0 [facility] Comment on above: Performed By: #### C BC #### [facility] [address] [place] [address] Dr. Raimundo Estrada Platelet mean volume (Bld) [Entitic vol] 9.3 fL Critically low 9.5-13.5 [facility] Comment on above: Performed By: #### C BC #### [facility] [address] [place] [address] Dr. Raimundo Estrada PLT 165 103/ul Normal 150-450 [facility] Comment on above: Performed By: #### C BC #### [facility] [address] [place] [address] Dr. Raimundo Estrada RBC 4.17 106/ul Critically low 4.70-6.10 [facility] Comment on above: Performed By: #### C BC #### [facility] [address] [place] [address] Dr. Raimundo Estrada WBC 11.6 103/ul Critically high 4.0-11.0 [facility] Comment on above: Performed By: #### C BC #### [facility] [address] [place] [address] Dr. Raimundo Estrada IRONon 04-03-2022 Iron [Mass/Vol] 63.0 ug/dL Critically low 65.0-175.0 [facility] Comment on above: Performed By: #### I HUBERT #### [facility] [address] [place] [address] Dr. Raimundo Estrada PROTIMEon 04-03-2022 INR Coag (PPP) [Relative time] 0.98 {INR} Normal [facility] Comment on above: Performed By: #### H GBHCT #### [facility] [address] [place] [address] Dr. Raimundo Estrada INR GUIDELINES SEE BELOW Normal [facility] Comment on above: Result Comment: KEIRA RED INR: 2.0 - 3.0 CONDITIONS NOT LISTED BELOW 2.5 - 3.5 FOR PROSTHETIC HEART VALVE REPLACEMENT 2.5 - 3.5 RECURRENT THROMBOSIS Performed By: #### H GBHCT #### [facility] [address] [place] [address] Dr. Raimundo Estrada PT Coag (PPP) [Time] 10.6 s Normal 9.0-11.6 [facility] Comment on above: Performed By: #### H GBHCT #### [facility] [address] [place] [address] Dr. Raimundo Estrada PTTon 04-03-2022 aPTT Coag (Bld) [Time] 26.2 s Normal 22.3-36.2 [facility] Comment on above: Performed By: #### H GBHCT #### [facility] [address] [place] [address] Dr. Raimundo Estrada Sedimentation Rateon 022 Sed Rate 10 [facility] LIPID PROFILEon 03-12-2022 CHOL-HDL RATIO NORM SEE BELOW Normal [facility] Comment on above: Result Comment: 3.3 - 4.4 LOW RISK 4.4 - 7.1 AVERAGE RISK 7.1 - 11.0 MODERATE RISK >11.0 HIGH RISK Performed By: #### L IPID #### [facility] [address] [address] [address] Raimundo Estrada Cholesterol [Mass/Vol] 126 mg/dL Normal <=200 [facility] Comment on above: Performed By: #### L IPID #### [facility] [address] [address] [address] Raimundo Estrada Cholesterol in HDL [Mass/Vol] 68 mg/dL Critically high 40-60 [facility] Comment on above: Performed By: #### L IPID #### [facility] [address] [address] [address] Raimundo Estrada Cholesterol in LDL [Mass/Vol] 52.0 mg/dL Normal [facility] Comment on above: Performed By: #### L IPID #### [facility] [address] [address] [address] Raimundo Estrada Cholesterol.total/Ch olesterol in HDL [Mass ratio] 1.9 {ratio} Normal [facility] Comment on above: Performed By: #### L IPID #### [facility] [address] [address] [address] Raimundo Estrada HDL NORMAL > or = 60 mg/dl - LO W CARDIOVASCULAR RISK <40 mg/dl - HIGH CARDIOVASCULAR RISK Normal [facility] Comment on above: Performed By: #### L IPID #### [facility] [address] [address] [address] Raimundo Estrada LDL CALC NORMAL SEE BELOW Normal [facility] Comment on above: Result Comment: <100 mg/dl OPTIMAL 100 - 129 mg/dl NEAR OR ABOVE OPTIMAL 130 - 159 mg/dl BORDERLINE HIGH 160 - 189 mg/dl HIGH >190 mg/dl VERY HIGH Performed By: #### L IPID #### [facility] [address] [id number] Raimundo Estrada Triglyceride [Mass/Vol] 30 mg/dL Normal <=150 [facility] Comment on above: Performed By: #### L IPID #### [facility] [address] [place], [place] [address] Dr. Raimundo Estrada VLDL CALC 6.0 mg/dL Normal [facility] Comment on above: Performed By: #### L IPID #### [facility] [address] [place], [place] [address] Dr. Raimundo Estrada CBC Auto DifferentialOrdered By: Julian Dougherty on 03-09-2021 Absolute Eos # <0.03 [employer] [facility] Work Phone: Absolute Immature Granulocyte 0.04 [employer] Work Phone: Absolute Lymph # 1.49 [employer] [facility] Work Phone: Absolute [place] # 1.27 High [facility] Work Phone: Basophils (Bld) [#/Vol] 0.03 10*3/uL [employer] Work Phone: Basophils/100 WBC (Bld) 0 % 0 - 2 % [employer] Phone: Differential Type NOT REPORTED [employer] Phone: Eosinophils/100 WBC (Bld) 0 % Low 1 - 4 % [employer] Work Phone: Hematocrit (Bld) [Volume fraction] 41.8 % 40.7 - 50.3 % [employer] Work Phone: Hemoglobin.gastroint estinal spec 1 Ql (Stl) 14.3 g/dL 13.0 - 17.0 g/dL [employer] Work Phone: Immature granulocytes/100 WBC (Bld) 0 % 0 [employer] Work Phone: Interpretation and review of laboratory results Abnormal [employer] Work Phone: Lymphocytes/100 WBC (Bld) 14 % Low 24 - 43 % [employer] Phone: MCH (RBC) [Entitic mass] 30.6 pg 25.2 - 33.5 pg [employer] Phone: MCHC (RBC) [Mass/Vol] 34.2 g/dL 28.4 - 34.8 g/dL [employer] Phone: MCV (RBC) [Entitic vol] 89.5 fL 82.6 - 102.9 fL [employer] Phone: Monocytes/100 WBC (Bld) 12 % 3 - 12 % [employer] Phone: NRBC Automated 0.0 0.0 per 100 WBC [employer] Phone: Platelet distribution width (Bld) [Ratio] 13.2 % 11.8 - 14.4 % [employer] Phone: Platelet Estimate NOT REPORTED [employer] Phone: Platelet mean volume (Bld) [Entitic vol] 10.3 fL 8.1 - 13.5 fL [employer] Phone: Platelets (Bld) [#/Vol] 169 10*3/uL [employer] Phone: RBC (Bld) [#/Vol] 4.67 10*6/uL 4.21 - 5.77 m/uL [employer] Phone: RBC (Bld) [#/Vol] NOT REPORTED [employer] Phone: Segmented neutrophils/100 WBC (Bld) 74 % High 36 - 65 % [employer] Phone: Segs Absolute 7[employer]59 [employer] Work Phone: WBC (Bld) [#/Vol] 10.4 10*3/uL [employer] Phone: WBC (Bld) [#/Vol] NOT REPORTED [employer] Phone: [employer] Phone: Sedimentation RateOrdered By : Julian Dougherty on 03-09-2021 Interpretation and review of laboratory results Abnormal [employer] Phone: Sed Rate 63 mm High 0 - 20 mm [employer] Phone: [employer] Phone: Uric AcidOrdered By: Julian Dougherty on 03-09-2021 Urate [Mass/Vol] 4.3 mg/dL 3.4 - 7.0 mg/dL [employer] Phone: [employer] Phone: XR WRIST RIGHT (MIN 3 VIEWS) Ordered By: Julian Dougherty on 03-09-2021 Arthritic changes an d mild soft tissue swelling without acute osseous abnormality. [employer] Phone: EXAMINATION: 3 XRAY VIEWS OF THE [...] No acute fracture, or dislocation is noted. [employer] Phone: Mauri, Mhpn Incoming R adiant Results From Planday/[employer] - 03/09/2021 10:56 AM EDT EXAMINATION: 3 [...] soft tissue swelling without acute osseous abnormality. [employer] Phone: [employer] Phone: VL JR CAROTID BILATERALon 1 10-17-2019 Renate Macon [facility] Vascular Carotid Procedure Patient Name ALVA Date of Study 08/16/2020 NOEL Vaca Date of 1960 Gender Male Age 59 year(s) Race Room Number Corporate ID # [id number] Patient MR # [id number] Reconsignment Clerk KEVON Tobar Interpreting Physician Mike Centeno MD Referring Zulma Gonzalez Referring Physician Nurse Kymberly BUCKNER Practitioner [...] left side. - Additional Measurements:ICAPSV/CCAPSV 0.76.ICAEDV/CCAEDV 1.49. [facility] [place], [place] Mauri, pn Incoming C ardio Results From Cpacs/Ge - 08/17/2020 9:08 AM [facility] Vascular Carotid Procedure Patient Name ALVA Date of Study 08/16/2020 NOEL Vaca Date of 1960 Gender Male Age 59 year(s) Race Room Number Corporate ID # [id number] Patient MR # [id number] Reconsignment Clerk KEVON Tobar Interpreting Physician Mike Centeno MD Referring Zulma Gonzalez Referring Physician Nurse Kymberly BUCKNER Practitioner [...] left side. - Additional Measurements:ICAPSV/CCAPSV 0.76.ICAEDV/CCAEDV 1.49. [place], [place] CBC auto differentialon 10-10 08-2019 Basophils (Bld) [#/Vol] 0.04 10*3/uL [place] Basophils/100 WBC (Bld) 0 % 0 - 2 % [place] Differential Type NOT REPORTED [place] Eosinophils (Bld) [#/Vol] 0.04 10*3/uL [place] Eosinophils/100 WBC (Bld) 0 % Low 1 - 4 % [place] Erythrocyte distribution width (RBC) [Ratio] 13.9 % 11.8 - 14.4 % [place] Hematocrit (Bld) [Volume fraction] 42.7 % 40.7 - 50.3 % [place] Hemoglobin (Bld) [Mass/Vol] 14.3 g/dL 13 - 17 g/dL [place] Immature granulocytes (Bld) [#/Vol] 0.03 10*3/uL [place] Immature granulocytes (Bld) [#/Vol] 0 % 0 [place] Interpretation and review of laboratory results Abnormal [place] Lymphocytes (Bld) [#/Vol] 1.95 10*3/uL [place] Lymphocytes/100 WBC (Bld) 20 % Low 24 - 43 % [place] MCH (RBC) [Entitic mass] 31.2 pg 25.2 - 33.5 pg [place] MCHC (RBC) [Mass/Vol] 33.5 g/dL 28.4 - 34.8 g/dL [place] MCV (RBC) [Entitic vol] 93.0 fL 82.6 - 102.9 fL [place] Monocytes (Bld) [#/Vol] 0.96 10*3/uL [place] Monocytes/100 WBC (Bld) 10 % 3 - 12 % [place] Platelet mean volume (Bld) [Entitic vol] 10.2 fL 8.1 - 13.5 fL [place] Platelets (Bld) [#/Vol] NOT REPORTED [place] Platelets (Bld) [#/Vol] 189 10*3/uL [place] RBC (Bld) [#/Vol] 4.59 10*6/uL 4.21 - 5.77 m/uL [place] RBC morphology finding Nom (Bld) NOT REPORTED [place] Segmented neutrophils/100 WBC (Bld) 70 % High 36 - 65 % [place] Segs Absolute 7.00 [place] WBC (Bld) [#/Vol] 10.0 10*3/uL [place] WBC (Bld) [#/Vol] 0.0 10*3/uL 0.0 per 100 WBC [place] WBC Morphology NOT REPORTED [place] CT ABDOMEN PELVIS WO CONTRAS T [...] to suggest a definite acute inflammatory process. [place] EXAMINATION: [facility] ABDOMEN AND PELVIS WITHOUT CONTRAST 07/18/2020 8:41 [...] and moderate canal stenosis. No pars defects. [facility]- [place], [place] Mauri, Mhpn Incoming R adiant Results From [facility] - 07/18/2020 9:12 AM EDT EXAMINATION: CT [...] to suggest a definite acute inflammatory process. [place] Comprehensive Metabolic Pane pat 07-18-2020 Albumin [Mass/Vol] 4.3 g/dL 3.5 - 5.2 g/dL [place] Albumin/Globulin [Mass ratio] 1.5 {ratio} [place] ALP [Catalytic activity/Vol] 71 U/L 40 - 129 U/L [place] ALT [Catalytic activity/Vol] 26 U/L 5 - 41 U/L [place] Anion gap [Moles/Vol] 13 mmol/L 9 - 17 mmol/L [place] AST [Catalytic activity/Vol] 26 U/L <40 [place] Bilirubin Ql (U) 1.44 mg/dL High 0.3 - 1.2 mg/dL [place] Bun/Cre Ratio 28 High [place], [place] Calcium [Mass/Vol] 9.4 mg/dL 8.6 - 10. 4 mg/dL [place] Chloride [Moles/Vol] 103 mmol/L 98 - 10 7 mmol/L [place] CO2 [Moles/Vol] 23 mmol/L 20 - 31 mmol/L [place] Creatinine [Mass/Vol] 0.79 mg/dL 0.7 - 1.2 mg/dL [place] GFR >60 >60 mL/min [place] GFR Non- >60 >60 mL/min [place] Glucose [Mass/Vol] 93 mg/dL 70 - 99 mg/dL [place] Interpretation and review of laboratory results Abnormal [place] Potassium [Moles/Vol] 3.9 mmol/L 3.7 - 5.3 mmol/L [place] Protein [Mass/Vol] 7.1 g/dL 6.4 - 8.3 g/dL [place] Sodium [Moles/Vol] 139 mmol/L 135 - 144 mmol/L [place] Urea nitrogen [Mass/Vol] 22 mg/dL High 6 - 20 mg/dL [place] EKG 12 Leadon 07-18-2020 Atrial Rate 58 BPM [place] P [place] 45 degrees [place] P-R Interval 138 ms [place] Q-T Interval 478 ms [place] QRS Duration 74 ms [place] QTc Calculation (Bazett) 469 ms [place], [place] R [place] 49 degrees [place], [place] T [place] 129 degrees [place], [place] Ventricular Rate 58 BPM [place] Sinus bradycardia T wave abnormality, consider lateral ischemia Prolonged QT Abnormal ECG When compared with ECG of 14-JUN-2019 10:26, Nonspecific T wave abnormality has replaced inverted T waves in Inferior leads T wave inversion less evident in Anterior leads Confirmed by JW KAY ([id number]) on 07/18/2020 11:37:03 AM [place] Mauri, Mhpn Incoming E kg Results From [facility] [place] - 07/18/2020 11:37 AM EDT Sinus bradycardia T wave abnormality, consider lateral ischemia Prolonged QT Abnormal ECG When compared with ECG of 14-JUN-2019 10:26, Nonspecific T wave abnormality has replaced inverted T waves in Inferior leads T wave inversion less evident in Anterior leads Confirmed by JW KAY ([id number]) on 07/18/2020 11:37:03 AM [place] Lipaseon 07-18-2020 Lipase [Catalytic activity/Vol] 30 U/L 13 - 60 U/L [place] Metabolic Panelon 07-18-2020 GFR/1.73 sq M predicted among non-blacks MDRD (S/P/Bld) [Vol rate/Area] [place] Comment on above: Stage 1: Some [...] body mass. Additional eGFR calculator available at: http://www.24Symbols/multiple_crcl_2012.htm Microscopic Urinalysison Amorphous, UA NOT REPORTED None [place] Bacteria, UA NOT REPORTED None [place], [place] Casts UA NOT REPORTED /LPF [place] Crystals, UA NOT REPORTED None /HPF [place] Epithelial Cells UA 0 TO 2 [place] Mucus, UA NOT REPORTED None [place] Other Observations UA NOT REPORTED NOT REQ. [place] RBC (U) [#/Vol] None [place] Renal Epithelial, UA NOT REPORTED 0 /HPF Me [place] Trichomonas, UA NOT REPORTED None [place] WBC, UA 0 TO 2 [place], [place] Yeast, UA NOT REPORTED None [place] - [place] Troponinon 07-18-2020 Troponin I.cardiac [Mass/Vol] NOT REPORTED [place] Troponin T.cardiac [Mass/Vol] NOT REPORTED <0.03 ng/mL [place] Troponin, High Sensitivity 18 ng/L 0 - 22 ng/L [place], [place] Comment on above: High Sensitivity Troponin values cannot be compared with other Troponin methodologies. Patients with high levels of Biotin oral intake (i.e >5mg/day) may have falsely decreased Troponin levels. Samples collected within 8 hours of biotin intake may require additional information for diagnosis. Troponin I.cardiac [Mass/Vol] NOT REPORTED [place] Troponin T.cardiac [Mass/Vol] NOT REPORTED <0.03 ng/mL [place] Troponin, High Sensitivity 21 ng/L 0 - 22 ng/L [place] Comment on above: High Sensitivity Troponin values cannot be compared with other Troponin methodologies. Patients with high levels of Biotin oral intake (i.e >5mg/day) may have falsely decreased Troponin levels. Samples collected within 8 hours of biotin intake may require additional information for diagnosis. Urinalysis Reflex to Culture on 07-18-2020 Bilirubin Urine Negative NEGATIVE [place] Color, UA YELLOW YELLOW [place], [place] Glucose, Ur Negative NEGATIVE [place] Interpretation and review of laboratory results Abnormal [place], [place] Ketones Ql (U) 1+ Abnormal NEGATIVE [place] Leukocyte esterase Test strip Ql (U) Negative NEGATIVE [place], [place] Nitrite, Urine Negative NEGATIVE [place] pH, UA 7.0 [place], [place] Protein (U) [Mass/Vol] Negative NEGATIVE [place] Specific [place], UA 1.020 [place], [place] Turbidity UA CLEAR CLEAR [place] Urinalysis Comments NOT REPORTED [place] Urine Hgb Negative NEGATIVE [place] Urobilinogen, Urine Normal Normal [place] XR CHEST (SINGLE VIEW FRONTA L)on 07-18-2020 Mauri, Mhpn Incoming R adiant Results From [facility] - 07/18/2020 8:54 AM EDT EXAMINATION: ONE XRAY VIEW OF THE CHEST 07/18/2020 8:44 am COMPARISON: June 14, 2019 HISTORY: ORDERING SYSTEM PROVIDED HISTORY: epig pain TECHNOLOGIST PROVIDED HISTORY: epig pain FINDINGS: Is no evidence of focal infiltrate, effusion, pneumothorax. Heart mediastinum appear normal. Visualized bony thorax shows no acute abnormality. IMPRESSION: No acute findings of the chest, stable when compared to previous. [place] EXAMINATION: ONE XRA Y VIEW OF THE CHEST 07/18/2020 8:44 am COMPARISON: June 14, 2019 HISTORY: ORDERING SYSTEM PROVIDED HISTORY: epig pain TECHNOLOGIST PROVIDED HISTORY: epig pain FINDINGS: Is no evidence of focal infiltrate, effusion, pneumothorax. Heart mediastinum appear normal. Visualized bony thorax shows no acute abnormality. [place] No acute findings of the chest, stable when compared to previous. [place], [place] CBC Auto Differentialon Basophils (Bld) [#/Vol] 0.05 10*3/uL [place] Basophils/100 WBC (Bld) 1 % 0 - 2 % [place] Differential Type NOT REPORTED [place] Eosinophils (Bld) [#/Vol] 10*3/uL [place] Eosinophils/100 WBC (Bld) 0 % Low 1 - 4 % [place] Erythrocyte distribution width (RBC) [Ratio] 12.9 % 11.8 - 14.4 % [place] Hematocrit (Bld) [Volume fraction] 45.7 % 40.7 - 50.3 % [place] Hemoglobin (Bld) [Mass/Vol] 15.5 g/dL 13 - 17 g/dL [place] Immature granulocytes (Bld) [#/Vol] 10*3/uL [place] Immature granulocytes (Bld) [#/Vol] 0 % 0 [place] Interpretation and review of laboratory results Abnormal [place] Lymphocytes (Bld) [#/Vol] 1.83 10*3/uL [place] Lymphocytes/100 WBC (Bld) 19 % Low 24 - 43 % [place] MCH (RBC) [Entitic mass] 31.1 pg 25.2 - 33.5 pg [place] MCHC (RBC) [Mass/Vol] 33.9 g/dL 28.4 - 34.8 g/dL [place] MCV (RBC) [Entitic vol] 91.6 fL 82.6 - 102.9 fL [place] Monocytes (Bld) [#/Vol] 0.86 10*3/uL [place] Monocytes/100 WBC (Bld) 9 % 3 - 12 % [place] Platelet mean volume (Bld) [Entitic vol] 9.7 fL 8.1 - 13.5 fL [place] Platelets (Bld) [#/Vol] 195 10*3/uL [place] Platelets (Bld) [#/Vol] NOT REPORTED [place] RBC (Bld) [#/Vol] 4.99 10*6/uL 4.21 - 5.77 m/uL [place] RBC morphology finding Nom (Bld) NOT REPORTED [place] Segmented neutrophils/100 WBC (Bld) 71 % High 36 - 65 % [place], [place] Segs Absolute 7.08 [place] WBC (Bld) [#/Vol] 9.9 10*3/uL [place] WBC (Bld) [#/Vol] 0.0 10*3/uL 0.0 per 100 WBC [place] WBC Morphology NOT REPORTED [place] Comprehensive Metabolic Pane l w/ Reflex to MGon 06-14-2019 Albumin [Mass/Vol] 4.4 g/dL 3.5 - 5.2 g/dL [place] Albumin/Globulin [Mass ratio] 1.2 {ratio} [place] ALP [Catalytic activity/Vol] 77 U/L 40 - 129 U/L [place] ALT [Catalytic activity/Vol] 19 U/L 5 - 41 U/L [place] Anion gap [Moles/Vol] 15 mmol/L 9 - 17 mmol/L [place] AST [Catalytic activity/Vol] 22 U/L <40 [place] Bilirubin Ql (U) 0.61 mg/dL 0.3 - 1.2 mg/dL [place] Bun/Cre Ratio 23 High [place], [place] Calcium [Mass/Vol] 10.0 mg/dL 8.6 - 10. 4 mg/dL [place] Chloride [Moles/Vol] 98 mmol/L 98 - 10 7 mmol/L [place] CO2 [Moles/Vol] 24 mmol/L 20 - 31 mmol/L [place] Creatinine [Mass/Vol] 0.82 mg/dL 0.7 - 1.2 mg/dL [place] GFR >60 >60 mL/min [place] GFR Non- >60 >60 mL/min [place] Glucose [Mass/Vol] 98 mg/dL 70 - 99 mg/dL [place] Interpretation and review of laboratory results Abnormal [place] Potassium [Moles/Vol] 4.0 mmol/L 3.7 - 5.3 mmol/L [place] Protein [Mass/Vol] 8.2 g/dL 6.4 - 8.3 g/dL [place] Sodium [Moles/Vol] 137 mmol/L 135 - 144 mmol/L [place] Urea nitrogen [Mass/Vol] 19 mg/dL 6 - 20 mg/dL [place] D-Dimer, Quantitativeon D-Dimer, Quant 0.42 [place], [place] Comment on above: Elevated levels of [...] activity/Vol] 37 U/L 13 - 60 U/L [place] Metabolic Panelon 06-14-2019 GFR/1.73 sq M predicted among non-blacks MDRD (S/P/Bld) [Vol rate/Area] [place] Comment on above: Average GFR for 50-5 9 years old: 93 mL/min/1.73sq m Chronic Kidney Disease: <60 mL/min/1.73sq m Kidney failure: <15 mL/min/1.73sq m eGFR calculated using average adult body mass. Additional eGFR calculator available at: http://www.24Symbols/multiple_crcl_2012.htm Stage 1: Some kidney damage normal GFR Stage 2: Mild kidney damage GFR 60-89 Stage 3: Moderate kidney damage GFR 30-59 Stage 4: Severe kidney damage GFR 15-29 Stage 5: Severe kidney damage GFR <15 ESRD - chronic treatment by dialysis or transplant Troponinon 06-14-2019 Troponin I.cardiac [Mass/Vol] [place], [place] Comment on above: Reference Range: <0.03 [...] diagnosis. Troponin T.cardiac [Mass/Vol] ug/L <0.03 ng/mL [place] Comment on above: Troponin T results c annot be compared to Troponin-I results. Troponin, High Sensitivity NOT REPORTED 0 - 22 ng/L [place] Troponin I.cardiac [Mass/Vol] [place] Comment on above: Reference Range: <0.03 [...] diagnosis. Troponin T.cardiac [Mass/Vol] ug/L <0.03 ng/mL [place] Comment on above: Troponin T results c annot be compared to Troponin-I results. Troponin, High Sensitivity NOT REPORTED 0 - 22 ng/L [place] APTTon 01-13-2018 aPTT 24.4 s Normal 20.5-30.5 [facility] Comment on above: Result Comment: [address] [address] Performed By: #### C BC, PTT, TROPI, GLYHGB ####[address] [address] Basic Metabolic Profon 01-13 (cont.) Normal [facility] Comment on above: Result Comment: Aver age GFR for 50-59 years old: 93 mL/min/1.73sq mChronic Kidney Disease: <60 mL/min/1.73sq mKidney failure: <15 mL/min/1.73sq meGFR calculated using average adult body mass. Additional eGFR calculator available at:http://www.Munchkin Fun.Orbster/multiple_crcl_2012.htm[address] [address] Performed By: #### C BC, PTT, TROPI, GLYHGB ####[address] [address] Anion gap 9 mmol/L Normal 9-17 [facility] Comment on above: Performed By: #### C BC, PTT, TROPI, GLYHGB ####[address] [address] Calcium 9.3 mg/dL Normal 8.6-10.4 [facility] Comment on above: Performed By: #### C BC, PTT, TROPI, GLYHGB ####[address] [address] Chloride 102 mmol/L Normal 98-107 [facility] Comment on above: Performed By: #### C BC, PTT, TROPI, GLYHGB ####[address] [address] CO2 24 mmol/L Normal 20-31 [facility] Comment on above: Performed By: #### C BC, PTT, TROPI, GLYHGB ####[facility] [address] [place] [address] Creatinine 0.75 mg/dL Normal 0.70-1.20 [facility] Comment on above: Performed By: #### C BC, PTT, TROPI, GLYHGB ####[facility] [address] [place] [address] eGFR (non-black) mL/min/{1.73_m2} Normal >60 [facility] Comment on above: Performed By: #### C BC, PTT, TROPI, GLYHGB ####[facility] [address] [place] [address] Glucose mass conc 104 mg/dL High 70-99 [facility] Comment on above: Performed By: #### C BC, PTT, TROPI, GLYHGB ####[facility] [address] [place] [address] Potassium molar conc 5.0 mmol/L Normal 3.7-5.3 [facility] Comment on above: Result Comment: TEST CONFIRMED Performed By: #### C BC, PTT, TROPI, GLYHGB ####[facility] [address] [place] [address] Sodium 135 mmol/L Normal 135-144 [facility] Comment on above: Performed By: #### C BC, PTT, TROPI, GLYHGB ####[facility] [address] [place] [address] Urea nitrogen 12 mg/dL Normal 6-20 [facility] Comment on above: Performed By: #### C BC, PTT, TROPI, GLYHGB ####[facility] [address] [place] [address] BUN/CRE Ratio NOT REPORTED Normal 9-20 [facility] Comment on above: Performed By: #### C BC, PTT, TROPI, GLYHGB ####[address] [address] Staging: NOT REPORTED Normal [facility] Comment on above: Performed By: #### C BC, PTT, TROPI, GLYHGB ####[address] [address] (cont.) Normal [facility] Comment on above: Result Comment: Aver age GFR for 50-59 years old: 93 mL/min/1.73sq mChronic Kidney Disease: <60 mL/min/1.73sq mKidney failure: <15 mL/min/1.73sq meGFR calculated using average adult body mass. Additional eGFR calculator available at:http://www.Munchkin Fun.Orbster/multiple_crcl_2012.htm[facility] [address] [place] [address] Performed By: #### C BC, PTT, TROPI, GLYHGB ####[address] [address] Anion gap 11 mmol/L Normal 9-17 [facility] Comment on above: Performed By: #### C BC, PTT, TROPI, GLYHGB ####[address] [address] Calcium 8.6 mg/dL Normal 8.6-10.4 [facility] Comment on above: Performed By: #### C BC, PTT, TROPI, GLYHGB ####[address] [address] Chloride 100 mmol/L Normal 98-107 [facility] Comment on above: Performed By: #### C BC, PTT, TROPI, GLYHGB ####[facility] [address] [place] [address] CO2 24 mmol/L Normal 20-31 [facility] Comment on above: Performed By: #### C BC, PTT, TROPI, GLYHGB ####[facility] [place] [address] Creatinine 0.64 mg/dL Low 0.70-1.20 [facility] Comment on above: Performed By: #### C BC, PTT, TROPI, GLYHGB ####[facility] [address] [place] [address] eGFR (non-black) mL/min/{1.73_m2} Normal >60 [facility] Comment on above: Performed By: #### C BC, PTT, TROPI, GLYHGB ####[address] [place] [address] Glucose mass conc 102 mg/dL High 70-99 [facility] Comment on above: Performed By: #### C BC, PTT, TROPI, GLYHGB ####[facility] [place] [address] Potassium molar conc 3.5 mmol/L Low 3.7-5.3 [facility] Comment on above: Performed By: #### C BC, PTT, TROPI, GLYHGB ####[facility] [place] [address] Sodium 135 mmol/L Normal 135-144 [facility] Comment on above: Performed By: #### C BC, PTT, TROPI, GLYHGB ####[facility] [address] [place] [address] Urea nitrogen 12 mg/dL Normal 6-20 [facility] Comment on above: Performed By: #### C BC, PTT, TROPI, GLYHGB ####[facility] [place] [address] BUN/CRE Ratio NOT REPORTED Normal 9- [facility] Comment on above: Performed By: #### C BC, PTT, TROPI, GLYHGB ####[facility] [address] [place] [address] Staging: NOT REPORTED Normal [facility] Comment on above: Performed By: #### C BC, PTT, TROPI, GLYHGB ####[facility] [address] [place] [address] Discharge Summaryon 01-14-20 18 HIM IP Note OR [employer] Normal [facility] Magnesiumon 01-13-2018 Magnesium 2.2 mg/dL Normal 1.6-2.6 [facility] Comment on above: Result Comment: [facility] [address] [place] [address] Performed By: #### C BC, PTT, TROPI, GLYHGB ####[facility] [address] [place] [address] Magnesium 2.1 mg/dL Normal 1.6-2.6 [facility] Comment on above: Result Comment: [facility] [place] [address] Performed By: #### C BC, PTT, TROPI, GLYHGB ####[facility] [address] [place] [address] Plan of Careon 01-13-2018 HIM IP Note OR [employer] Normal [facility] Progress Noteon 01-13-2018 HIM IP Note OR [employer] Normal [facility] HIM IP Note OR [employer] Normal [facility] HIM IP Note OR [employer] Normal [facility] APTTon 01-12-2018 aPTT 47.5 s High 20.5-30.5 [facility] Comment on above: Result Comment: [facility] [address] [place] [address] Performed By: #### P TT ####[address] [place] [address] aPTT 48.3 s High 20.5-30.5 [facility] Comment on above: Result Comment: [facility] [address] [place] [address] Performed By: #### P LT, PTT ####[address] [address] aPTT 50.8 s High 20.5-30.5 [facility] Comment on above: Result Comment: [facility] [address] [place] [address] Performed By: #### P TT ####[address] [address] Platelet Counton 01-12-2018 Platelets 154 10*3/uL Normal 138-453 [facility] Comment on above: Result Comment: [facility] [address] [place] [address] Performed By: #### P LT, PTT ####[address] [address] Progress Noteon 01-12-2018 HIM IP Note OR [employer] Normal [facility] APTTon 01-11-2018 aPTT 38.0 s High 20.5-30.5 [facility] Comment on above: Result Comment: [facility] [address] [place] [address] Performed By: #### P TT ####[address] [address] aPTT 35.3 s High 20.5-30.5 [facility] Comment on above: Result Comment: [facility] [address] [place] [address] Performed By: #### P TT ####[address] [address] aPTT 30.5 s Normal 20.5-30.5 [facility] Comment on above: Result Comment: [facility] [address] [place] [address] Performed By: #### P TT ####[address] [address] CBCon 01-11-2018 Erythrocyte distribution width Auto Ratio (RBC) 14.0 % Normal 11.8-14.4 [facility] Comment on above: Performed By: #### C BC, CP, LIPR, MG ####[address] [address] Erythrocytes (RBC) 0.0 per 100 WBC Normal 0.0 [facility] Comment on above: Result Comment: [facility] [employer] [facility] [place] [address] Performed By: #### C BC, CP, LIPR, MG ####[address] [address] Erythrocytes (RBC) 4.36 10*6/uL Normal 4.21-5.77 [facility] Comment on above: Performed By: #### C BC, CP, LIPR, MG ####[address] [address] Hematocrit (HCT) 40.6 % Low 40.7-50.3 [facility] Comment on above: Performed By: #### C BC, CP, LIPR, MG ####[address] [address] Hemoglobin mass conc (Bld) 13.3 g/dL Normal 13.0-17.0 [facility] Comment on above: Performed By: #### C BC, CP, LIPR, MG ####[address] [address] MCH 30.5 pg Normal 25.2-33.5 [facility] Comment on above: Performed By: #### C BC, CP, LIPR, MG ####[address] [place] [address] MCHC mass conc (RBC) 32.8 g/dL Normal 28.4-34.8 [facility] Comment on above: Performed By: #### C BC, CP, LIPR, MG ####[address] [address] MCV 93.1 fL Normal 82.6-102.9 [facility] Comment on above: Performed By: #### C BC, CP, LIPR, MG ####[address] [place] [address] Platelet mean volume (PMV) 10.1 fL Normal 8.1-13.5 [facility] Comment on above: Performed By: #### C BC, CP, LIPR, MG ####[facility] [address] [place] [address] Platelets 153 10*3/uL Normal 138-453 [facility] Comment on above: Performed By: #### C BC, CP, LIPR, MG ####[address] [address] WBC (Leukocytes) 9.5 10*3/uL Normal 3.5-11.3 [facility] Comment on above: Performed By: #### C BC, CP, LIPR, MG ####[address] [address] Comp Metabolic Profon 2017 (cont.) Normal [facility] Comment on above: Result Comment: Aver age GFR for 50-59 years old: 93 mL/min/1.73sq mChronic Kidney Disease: <60 mL/min/1.73sq mKidney failure: <15 mL/min/1.73sq meGFR calculated using average adult body mass. Additional eGFR calculator available at:http://www.Munchkin Fun.com/multiple_crcl_[email or web address] [address] [place] [address] Performed By: #### C BC, CP, LIPR, MG ####[facility] [place] [address] Alanine aminotransferase (ALT) 17 U/L Normal 5-41 [facility] Comment on above: Performed By: #### C BC, CP, LIPR, MG ####[facility] [address] [place] [address] Albumin 3.6 g/dL Normal 3.5-5.2 [facility] Comment on above: Performed By: #### C BC, CP, LIPR, MG ####[address] [address] Albumin/Globulin Ratio 1.3 {ratio} Normal 1.0-2.5 [facility] Comment on above: Performed By: #### C BC, CP, LIPR, MG ####[facility] [address] [place] [address] Alkaline Phos 76 U/L Normal 40-129 [facility] Comment on above: Performed By: #### C BC, CP, LIPR, MG ####[facility] [place] [address] Anion gap 14 mmol/L Normal 9-17 [facility] Comment on above: Performed By: #### C BC, CP, LIPR, MG ####[address] [place] [address] Aspartate aminotransferase (AST) 15 U/L Normal <40 [facility] Comment on above: Performed By: #### C BC, CP, LIPR, MG ####[address] [address] Bilirubin Ql (U) 1.13 mg/dL Normal 0.3-1.2 [facility] Comment on above: Performed By: #### C BC, CP, LIPR, MG ####[facility] [address] [place] [address] Calcium 8.4 mg/dL Low 8.6-10.4 [facility] Comment on above: Performed By: #### C BC, CP, LIPR, MG ####[facility] [address] [place] [address] Chloride 97 mmol/L Low 98-107 [facility] Comment on above: Performed By: #### C BC, CP, LIPR, MG ####[facility] [address] [place] [address] CO2 23 mmol/L Normal 20-31 [facility] Comment on above: Performed By: #### C BC, CP, LIPR, MG ####[facility] [address] [place] [address] Creatinine 0.63 mg/dL Low 0.70-1.20 [facility] Comment on above: Performed By: #### C BC, CP, LIPR, MG ####[facility] [address] [place] [address] eGFR (non-black) mL/min/{1.73_m2} Normal >60 [facility] Comment on above: Performed By: #### C BC, CP, LIPR, MG ####[facility] [address] [place] [address] Glucose mass conc 107 mg/dL High 70-99 [facility] Comment on above: Performed By: #### C BC, CP, LIPR, MG ####[facility] [place] [address] Potassium molar conc 3.6 mmol/L Low 3.7-5.3 [facility] Comment on above: Performed By: #### C BC, CP, LIPR, MG ####[address] [address] Protein 6.4 g/dL Normal 6.4-8.3 [facility] Comment on above: Performed By: #### C BC, CP, LIPR, MG ####[address] [address] Sodium 134 mmol/L Low 135-144 [facility] Comment on above: Performed By: #### C BC, CP, LIPR, MG ####[address] [address] Urea nitrogen 19 mg/dL Normal 6-20 [facility] Comment on above: Performed By: #### C BC, CP, LIPR, MG ####[address] [address] BUN/CRE Ratio NOT REPORTED Normal -20 [facility] Comment on above: Performed By: #### C BC, CP, LIPR, MG ####[address] [address] Staging: NOT REPORTED Normal [facility] [facility] Comment on above: Performed By: #### C BC, CP, LIPR, MG ####[address] [address] Hemoglobin A1Con 01-11-2018 Glucose mass conc 114 mg/dL Normal [facility] Comment on above: Result Comment: The ADA and AACC recommend providing the estimated average glucose result to permit better patient understanding of their HBA1c result.[address] [address] Performed By: #### C BC, PTT, TROPI, GLYHGB ####[address] [address] Hemoglobin A1c/Hemoglobin.total mass fraction (Bld) 5.6 % Normal 4.0-6.0 [facility] Comment on above: Performed By: #### C BC, PTT, TROPI, GLYHGB ####[address] [address] Lipid Profileon 01-11-2018 Cholesterol 123 mg/dL Normal <200 [facility] Comment on above: Result Comment: Chol esterol Guidelines: <200 Desirable 200-240 Borderline >240 Undesirable Performed By: #### C BC, CP, LIPR, MG ####[address] [address] Cholesterol to HDL Ratio 2.0 {ratio} Normal <5 [facility] Comment on above: Performed By: #### C BC, CP, LIPR, MG ####[address] [address] HDL Cholesterol 63 mg/dL Normal >40 [facility] Comment on above: Result Comment: HDL Guidelines: <40 Undesirable 40-59 Borderline >59 Desirable Performed By: #### C BC, CP, LIPR, MG ####[address] [address] LDL Cholesterol 38 mg/dL Normal 0-130 [facility] Comment on above: Result Comment: LDL Guidelines: <100 Desirable 100-129 Near to/above Desirable 130-159 Borderline >159 UndesirableDirect (measured) LDL and calculated LDL are not interchangeable tests. Performed By: #### C BC, CP, LIPR, MG ####[address] [address] Triglyceride 111 mg/dL Normal <150 [facility] Comment on above: Result Comment: Trig lyceride Guidelines: <150 Desirable 150- 199 Borderline 200-499 High >499 Very high Based on AHA Guidelines for fasting triglyceride, July 2012.[address] [place] [address] Performed By: #### C BC, CP, LIPR, MG ####[facility] [address] [place] [address] Cholesterol in VLDL mass conc NOT REPORTED Normal 1-30 [facility] Comment on above: Performed By: #### C BC, CP, LIPR, MG ####[facility] [address] [place] [address] Magnesiumon 01-11-2018 Magnesium 2.1 mg/dL Normal 1.6-2.6 [facility] Comment on above: Result Comment: [facility] [employer] [address] [place] [address] Performed By: #### C BC, CP, LIPR, MG ####[facility] [place] [address] Plan of Careon 01-11-2018 HIM IP Note OR Fast Food Cook Normal [facility] HIM IP Note OR Fast Food Cook Normal [facility] Progress Noteon 01-11-2018 HIM IP Note OR [employer] Food Cook Normal [facility] Troponinon 01-11-2018 Troponin I.cardiac mass conc Normal [facility] Comment on above: Result Comment: Refe rence Range: <0.03 Within reference range. 0.03-0.09 Possible myocardial damage.Repeat at appropriate intervals to rule out chronic elevation. >= 0.10 Indicative of myocardial damage.Patients with high levels of Biotin oral intake (i.e >5mg/day) may have falsely decreased Troponin T levels. Samples collected within 8 hours of biotin intake may require additional information for diagnosis.[employer] [address] [place] [address] Performed By: #### T ROPI ####[facility] [place] [address] Troponin T.cardiac mass conc ug/L Normal <0.03 [facility] Comment on above: Result Comment: Trop onin T results cannot be compared to Troponin-I results. Performed By: #### T ROPI ####[address] [address] APTTon 01-10-2018 aPTT 23.8 s Normal 20.5-30.5 [facility] Comment on above: Result Comment: [address] [place] [address] Performed By: #### C BC, PTT, TROPI, GLYHGB ####[address] [address] CBCon 01-10-2018 Erythrocyte distribution width Auto Ratio (RBC) 14.2 % Normal 11.8-14.4 [facility] Comment on above: Performed By: #### C BC, PTT, TROPI, GLYHGB ####[address] [address] Erythrocytes (RBC) 4.47 10*6/uL Normal 4.21-5.77 [facility] Comment on above: Performed By: #### C BC, PTT, TROPI, GLYHGB ####[address] [address] Erythrocytes (RBC) 0.0 per 100 WBC Normal 0.0 [facility] Comment on above: Result Comment: [facility] [employer] [address] [place] [id number] Performed By: #### C BC, PTT, TROPI, GLYHGB ####[address] [address] Hematocrit (HCT) 41.3 % Normal 40.7-50.3 [facility] Comment on above: Performed By: #### C BC, PTT, TROPI, GLYHGB ####[address] [address] Hemoglobin mass conc (Bld) 13.5 g/dL Normal 13.0-17.0 [facility] Comment on above: Performed By: #### C BC, PTT, TROPI, GLYHGB ####[facility] [address] [place] [address] MCH 30.2 pg Normal 25.2-33.5 [facility] Comment on above: Performed By: #### C BC, PTT, TROPI, GLYHGB ####[address] [place] [address] MCHC mass conc (RBC) 32.7 g/dL Normal 28.4-34.8 [facility] Comment on above: Performed By: #### C BC, PTT, TROPI, GLYHGB ####[facility] [address] [place] [address] MCV 92.4 fL Normal 82.6-102.9 [facility] Comment on above: Performed By: #### C BC, PTT, TROPI, GLYHGB ####[facility] [address] [place] [address] Platelet mean volume (PMV) 10.1 fL Normal 8.1-13.5 [facility] Comment on above: Performed By: #### C BC, PTT, TROPI, GLYHGB ####[address] [place] [address] Platelets 160 10*3/uL Normal 138-453 [facility] Comment on above: Performed By: #### C BC, PTT, TROPI, GLYHGB ####[facility] [place] [address] WBC (Leukocytes) 6.8 10*3/uL Normal 3.5-11.3 [facility] Comment on above: Performed By: #### C BC, PTT, TROPI, GLYHGB ####[address] [place] [address] History and Physicalon 01-10 HIM IP Note OR Fast Food Cook Normal [facility] Plan of Careon 01-10-2018 HIM IP Note OR Fast Food Cook Normal [facility] Progress Noteon 01-10-2018 HIM IP Note OR Fast Food Cook Normal [facility] Troponinon 01-10-2018 Troponin I.cardiac mass conc Normal [facility] Comment on above: Result Comment: Refe rence Range: <0.03 Within reference range. 0.03-0.09 Possible myocardial damage.Repeat at appropriate intervals to rule out chronic elevation. >= 0.10 Indicative of myocardial damage.Patients with high levels of Biotin oral intake (i.e >5mg/day) may have falsely decreased Troponin T levels. Samples collected within 8 hours of biotin intake may require additional information for diagnosis.[employer] [facility] [place], [place] [id number] ([phone] Performed By: #### C BC, PTT, TROPI, GLYHGB ####[employer] [address] [place] [address] [id number] Troponin T.cardiac mass conc ug/L Normal <0.03 [facility] Comment on above: Result Comment: Trop onin T results cannot be compared to Troponin-I results. Performed By: #### C BC, PTT, TROPI, GLYHGB ####[employer] [address] [place] [address] [id number] Vital Signs Date Time Vital Sign Value Performing Clinician Hilda marie 06-24-2024 08:41-0400 Body height 167.6 cm Casey Mohr MD Work Phone: [facility] 06-24-2024 08:41-0400 Body mass index (BMI) [Ratio] 28.13 kg/m2 Casey Mohr MD Work Phone: [facility] 06-24-2024 08:41-0400 Body weight 79.06 kg Casey Mohr MD Work Phone: [facility] 06-24-2024 08:41-0400 Diastolic blood pressure 90 mm[Hg] Casey Mohr MD Work Phone: [facility] 06-24-2024 08:41-0400 Heart rate 65 /min Casey Mohr MD Work Phone: [facility] 06-24-2024 08:41-0400 SaO2% (BldA) [Mass fraction] 98 % Casey Mohr MD Work Phone: [facility] 06-24-2024 08:41-0400 Systolic blood pressure 158 mm[Hg] Casey Mohr MD Work Phone: [facility] 2023 06:08-0500 SaO2% (BldA) [Mass fraction] 99 % Nadia Fitzpatrick MD Work Phone: [facility] [employer] 2023 05:49-0500 Body temperature 100.09 [degF] [facility]patrick [facility] 05:49-0500 Diastolic blood pressure 52 mm[Hg] Nadia Fitzpatrick MD [facility] 2023 05:49-0500 Heart rate 89 /min Nadia Fitzpatrick MD Work Phone: [facility] [employer] 2023 05:49-0500 Respiratory rate 18 /min Nadia Fitzpatrick MD Work Phone: [facility] [employer] 2023 05:49-0500 Systolic blood pressure 151 mm[Hg] Nadia Fitzpatrick MD Work Phone: [facility] [employer] 09-18-2023 13:40-0500 Diastolic blood pressure 68 mm[Hg] Shaheen Chappell MD Work Phone: [facility] 09-18-2023 13:40-0500 Heart rate 68 /min Shaheen Chappell MD Work Phone: [facility] 09-18-2023 13:40-0500 SaO2% (BldA) [Mass fraction] 97 % Shaheen Chappell MD Work Phone: [facility] 09-18-2023 13:40-0500 Systolic blood pressure 101 mm[Hg] Shaheen Chappell MD Work Phone: [facility] 09-18-2023 13:10-0500 Respiratory rate 16 /min Shaheen Chappell MD Work Phone: [facility] 09-18-2023 13:00-0500 Body temperature 97 [degF] Shaheen Chappell MD Work Phone: [facility] 09-18-2023 08:35-0500 Body height 167.6 cm Shaheen Chappell MD Work Phone: [facility] 09-18-2023 08:35-0500 Body mass index (BMI) [Ratio] 27.44 kg/m2 Shaheen Chappell MD Work Phone: [facility] 09-18-2023 08:35-0500 Body weight 77.11 kg Shaheen Chappell MD Work Phone: [facility] 08-14-2023 14:38-0500 Body height 167.6 cm Casey Mohr MD Work Phone: [facility] 08-14-2023 14:38-0500 Body mass index (BMI) [Ratio] 26.87 kg/m2 Casey Mohr MD Work Phone: [facility] 08-14-2023 14:38-0500 Body weight 75.52 kg Casey Mohr MD Work Phone: [facility] 08-14-2023 14:38-0500 Diastolic blood pressure 69 mm[Hg] Casey Mohr MD Work Phone: [facility] 08-14-2023 14:38-0500 Heart rate 72 /min Casey Mohr MD Work Phone: [facility] 08-14-2023 14:38-0500 SaO2% (BldA) [Mass fraction] 98 % Casey Mohr MD Work Phone: [facility] 08-14-2023 14:38-0500 Systolic blood pressure 102 mm[Hg] Casey Mohr MD Work Phone: [facility] 07-16-2023 13:41-0400 Body height 167.6 cm Jennie Hernandez MD Work Phone: [facility] 07-16-2023 13:41-0400 Body mass index (BMI) [Ratio] 27.11 kg/m2 Jennie Hernandez MD Work Phone: [facility] 07-16-2023 13:41-0400 Body weight 76.2 kg Jennie Hernandez MD Work Phone: [facility] 07-04-2023 09:34-0400 Body height 167.6 cm Jennie Hernandez MD Work Phone: [facility] 07-04-2023 09:34-0400 Body mass index (BMI) [Ratio] 27.12 kg/m2 Jennie Hernandez MD Work Phone: [facility] 07-04-2023 09:34-0400 Body weight 76.2 kg Jennie Hernandez MD Work Phone: [facility] 06-10-2023 10:18-0400 Body height 167.6 cm Jennie Hernandez MD Work Phone: [facility] 06-10-2023 10:18-0400 Body mass index (BMI) [Ratio] 27.12 kg/m2 Jennie Hernandez MD Work Phone: [facility] 06-10-2023 10:18-0400 Body weight 76.2 kg Jennie Hernandez MD Work Phone: [facility] 05-19-2023 09:07-0400 Body height 167.6 cm Jennie Hernandez MD Work Phone: [facility] 05-19-2023 09:07-0400 Body mass index (BMI) [Ratio] 27.12 kg/m2 Jennie Hernandez MD Work Phone: [facility] 05-19-2023 09:07-0400 Body weight 76.2 kg Jennie Hernandez MD Work Phone: [facility] 04-18-2023 12:33-0400 Body height 167.6 cm Jennie Hernandez MD Work Phone: [facility] 04-18-2023 12:33-0400 Body mass index (BMI) [Ratio] 26.63 kg/m2 Jennie Hernandez MD Work Phone: [facility] 04-18-2023 12:33-0400 Body weight 74.84 kg Jennie Hernandez MD Work Phone: [facility] 02-25-2023 08:48-0400 Body height 167.6 cm Jennie Hernandez MD Work Phone: [facility] 02-25-2023 08:48-0400 Body mass index (BMI) [Ratio] 26.63 kg/m2 Jennie Hernandez MD Work Phone: [facility] 02-25-2023 08:48-0400 Body weight 74.84 kg Jennie Hernandez MD Work Phone: [facility] 12-31-2022 13:46-0400 Body temperature 97.3 [degF] Rosa Garg DO Work Phone: [facility] 12-31-2022 13:46-0400 Diastolic blood pressure 71 mm[Hg] Rosa Garg DO Work Phone: [facility] 12-31-2022 13:46-0400 Heart rate 72 /min Rosa Garg DO Work Phone: [facility] 12-31-2022 13:46-0400 Respiratory rate 16 /min Rosa Garg DO Work Phone: [facility] 12-31-2022 13:46-0400 SaO2% (BldA) [Mass fraction] 92 % Rosa Garg DO Work Phone: [facility] 12-31-2022 13:46-0400 Systolic blood pressure 102 mm[Hg] Rosa Garg DO Work Phone: [facility] [employer] 12-31-2022 02:40-0400 Body mass index (BMI) [Ratio] 25.34 kg/m2 Rosa Garg DO Work Phone: [facility] [employer] 12-31-2022 02:40-0400 Body weight 71.2 kg Rosa Garg DO Work Phone: [facility] 12-30-2022 12:46-0400 Body height 167.6 cm Rosa Garg DO Work Phone: [facility] 05-31-2022 14:26-0400 Blood Pressure Location Julian DIAZ [facility] [place] 05-31-2022 14:26-0400 Diastolic blood pressure 60 mm[Hg] Julian HOWELLNola [facility] [place] 05-31-2022 14:26-0400 Heart rate 66 /min Julian DIAZ [facility] [place] 05-31-2022 14:26-0400 Respiratory rate 16 /min Julian DIAZ [facility] [place] 05-31-2022 14:26-0400 Systolic blood pressure 108 mm[Hg] Julian HOWELLNola [facility] [place] 03-09-2021 12:45-0400 Respiratory rate 16 /min Julian Dougherty MD [employer] Work Phone: 03-09-2021 10:28-0400 Body height 167.6 cm Julian Dougherty MD [employer] Phone: 03-09-2021 10:28-0400 Body mass index (BMI) [Ratio] 25.5 kg/m2 Julian Dougherty MD [employer] Phone: 03-09-2021 10:28-0400 Body temperature 98.49 [degF] Julian Dougherty MD [employer] Phone: 03-09-2021 10:28-0400 Body weight 71.67 kg Julian Dougherty MD [employer] Phone: 03-09-2021 10:28-0400 Heart rate 79 /min [facility]: 03-09-2021 10:28-0400 SaO2% (BldA) [Mass fraction] 97 % uJlian Dougherty MD [facility]: 07-18-2020 09:15-0400 Pulse Oximetry 97 % [facility] [place] 07-18-2020 08:30-0400 BP Diastolic 96 mm[Hg] [facility] 07-18-2020 08:30-0400 BP Systolic 135 mm[Hg] [facility] 07-18-2020 08:18-0400 Body Temperature 98.01 [degF] [facility] 07-18-2020 08:18-0400 Pulse (Heart Rate) 84 /min [facility], [place] 07-18-2020 08:18-0400 Respiratory Rate 16 /min [facility] 09-12-2019 02:36-0500 BP Diastolic 95 mm[Hg] [facility] , [place] 09-12-2019 02:36-0500 BP Systolic 138 mm[Hg] [facility] [place] 09-12-2019 01:27-0500 Body Temperature 97.3 [degF] [facility] [place] 09-12-2019 01:27-0500 Pulse (Heart Rate) 86 /min [facility] 09-12-2019 01:27-0500 Pulse Oximetry 97 % [facility] , [place] 09-12-2019 01:27-0500 Respiratory Rate 18 /min Justice Dewitt [facility] O , [place] 06-14-2019 12:44-0400 BP Diastolic 89 mm[Hg] [facility] , [place] 06-14-2019 12:44-0400 BP Systolic 158 mm[Hg] Pablo Dewitt [facility] , [place] 06-14-2019 12:44-0400 Pulse (Heart Rate) 68 /min Pablo [facility]illo [facility], [place] 06-14-2019 12:44-0400 Pulse Oximetry 95 % Pablo Dewitt [facility] , [place] 06-14-2019 12:44-0400 Respiratory Rate 12 /min Pablo Portillo [facility], [place] 06-14-2019 10:15-0400 BMI (Body Mass Index) 24.53 kg/m2 Pablo Dewitt [facility], [place] 06-14-2019 10:15-0400 Body Temperature 98.01 [degF] Pablo Dewitt [facility], [place] 06-14-2019 10:15-0400 Body weight 68.95 kg Pablo Dewitt [facility] , [place] Encounters Encounter Date Encounter Type Care Provider Facility Start: 06-24-2024 End: 06-24-2024 Office outpatient visit 25 minutes Casey Mohr MD Work Phone: [facility] Comment on above: 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); Hyperreflexia Start: 06-24-2024 ambulatory SELF SELF [facility] Start: 06-16-2024 End: [facility]16[facility] Start[facility] 05-31-[facility]24 Evaluation and manag ement of inpatient [facility] Start: 05-29-2024 Evaluation and manag ement of inpatient [facility] Start: 05-29-2024 Evaluation and manag ement of inpatient [facility] Start: 05-28-2024 End: 05-31-2024 Evaluation and management of inpatient CASEY VIZCAINO [facility] Start: 05-28-2024 End: 05-28-2024 ambulatory [facility] Start: 03-15-2024 End: 03-15-2024 ambulatory Mo Gongora MD Facility: [facility] Start: 02-11-2024 End: 02-11-2024 ambulatory [facility] Start: 11-24-2023 End: 11-24-2023 ambulatory ROMARIO MAN Not Available Start: 2023 End: 2023 Emergency department patient visit NADIA FITZPATRICK [facility] Start: 2023 End: 2023 Emergency department patient visit Nadia Fitzpatrick MD Work Phone: [facility] Comment on above: Viral illness (Prima ry Dx) Start: 09-18-2023 End: 09-18-2023 ambulatory [facility] Start: 09-18-2023 End: 09-18-2023 Subsequent hospital visit by physician Shaheen Chappell MD Work Phone: [facility] Comment on above: Sacroiliitis Start: 09-09-2023 [facility] Start: 09-09-2023 Encounter for other preprocedural examination [facility] Start: 08-27-2023 [facility] Start: 08-14-2023 End: 08-14-2023 Office outpatient new 45 minutes Casey Mohr MD Work Phone: [facility] Comment on above: 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); Hyperreflexia Start: 08-14-2023 ambulatory [facility] Start: 08-13-2023 End: 08-13-2023 ambulatory [facility] Start: 08-13-2023 End: 08-13-2023 Encounter for other preprocedural examination [facility] Start: 07-16-2023 ambulatory [facility] Start: 07-16-2023 End: 07-16-2023 Subsequent hospital visit by physician Jennie Hernandez MD Work Phone: [facility] Procedure Images Comment on above: Arrived Start: 07-16-2023 End: 07-16-2023 Patient encounter procedure Jennie Hernandez MD Work Phone: [facility] Comment on above: 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); Pain of both sacroiliac joints Start: 07-04-2023 ambulatory JENNIE HERNANDEZ [facility] Start: 07-04-2023 End: 07-04-2023 Office outpatient visit 15 minutes Jennie Hernandez MD Work Phone: [facility] Comment on above: 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); Pain of both sacroiliac joints; Polyneuropathy Start: 06-16-2023 End: 06-16-2023 ambulatory Mo Gongora MD Facility:[facility] Start: 06-10-2023 ambulatory JENNIE HERNANDEZ [facility] Start: 06-10-2023 End: 06-10-2023 Patient encounter procedure Jennie Hernandez MD Work Phone: [facility] Comment on above: Osteoarthritis of ri ght sacroiliac joint (Primary Dx); Pain of right sacroiliac joint; Polyneuropathy; Lower extremity numbness; Osteoarthritis of left sacroiliac joint; Pain of left sacroiliac joint; Lumbar spondylosis Start: 05-19-2023 ambulatory [facility] Start: 05-19-2023 End: 05-19-2023 Office outpatient visit 15 minutes Jennie Hernandez MD Work Phone: [facility] Comment on above: Osteoarthritis of le ft sacroiliac joint (Primary Dx); Pain of left sacroiliac joint; Lumbar spondylosis Start: 04-18-2023 ambulatory JENNIE HERNANDEZ [facility] Start: 04-18-2023 End: 04-18-2023 Patient encounter procedure Jennie Hernandez MD Work Phone: [facility] Comment on above: Osteoarthritis of le ft sacroiliac joint (Primary Dx) Start: 04-18-2023 End: 04-18-2023 Subsequent hospital visit by physician Jennie Hernandez MD Work Phone: [facility] Procedure Images Comment on above: Arrived Start: 02-25-2023 ambulatory JENNIE HERNANDEZ [facility] Start: 02-25-2023 End: 02-25-2023 Office outpatient new 30 minutes Jennie Hernandez MD Work Phone: [facility] Comment on above: Osteoarthritis of le ft sacroiliac joint (Primary Dx); Lumbar spondylosis; Lower extremity numbness Start: 01-13-[address] ROMARIO MAN [facility] ity:[facility] Start: 01-08-2023 End: 01-09-[address] ROMARIO MAN Facility:[facility] Start: 12-30-2022 End: 12-31-2022 Evaluation and management of inpatient ROMARIO MAN [facility] Start: 12-30-2022 End: 12-31-2022 Evaluation and management of inpatient Rosa Garg DO Work Phone: [facility] Comment on above: Chest [...] examination without abnormal findings DR ROMARIO MAN [facility] Start: 09-11-2022 End: 09-12-[address] ROMARIO MAN Facility:[facility] Start: 09-11-2022 End: 09-12-2022 Encounter for general adult medical examination without abnormal findings DR ROMARIO MAN Facility:[facility] Start: 08-22-2022 End: 08-22-[address] NELSON IBRAHIM . Facility:[facility] Start: 07-10-2022 End: 07-11-2022 ambulatory Julian DIAZ Facility:[facility] Start: 07-10-2022 End: 07-10-2022 Patient encounter procedure Julian Davis NILL [facility] Nill[facility] [place] Start: 06-26-2022 End: 06-27-2022 ambulatory Julian DIAZ Facility:CD:[id number] Start: 06-24-2022 Encounter for preprocedural laboratory examination DR JULIAN DIAZ . [facility] Start: 06-22-2022 End: 06-23-[address] JULIAN DIAZ . Facility:[facility] Start: 06-22-2022 End: 06-23-2022 Encounter for preprocedural laboratory examination DR JULIAN DIAZ . Facility:[facility] Start: 05-31-2022 End: 06-01-2022 ambulatory ROMARIO MAN PROVIDER Facility:[facility] Start: 05-31-2022 End: 05-31-2022 Patient encounter procedure Julian Susan DANTEL [facility] Start: 05-30-2022 End: 05-31-[address] NELSON IBRAHIM . Facility:[facility] Start: 05-15-2022 ambulatory Julian DIAZ Facility :[facility] Start: 04-30-2022 End: 04-30-[address] NELSON IBRAHIM . Facility:[facility] Start: 04-23-2022 End: 04-23-[address] NELSON IBRAHIM . Facility:[facility] Start: 04-03-2022 End: 04-04-2022 ambulatory JULIANE MASSEY . Facility:[facility] Start: 03-25-2022 End: 03-25-2022 Subsequent hospital visit by physician Romario Man MD Work Phone: [facility] Laboratory Comment on above: Chronic fatigue Start: 03-12-2022 End: 03-13-[address] ROMARIO MAN Facility:[facility] Start: 03-12-2022 End: 03-12-[address] ROMARIO MAN Facility:[facility] Start: 02-21-2022 End: 02-22-[address] NELSON Acevedo Facility:[facility] Start: 02-05-2022 End: 02-05-[address] ROMARIO MAN Facility:[facility] Start: 03-09-2021 End: 03-09-2021 Emergency department patient visit Julian Dougherty MD [facility] Comment on above: Acute gout of right wrist, unspecified cause (Primary Dx) Start: 08-17-2020 End: 08-17-2020 Subsequent hospital visit by physician [facility] Cardiology Stress Room [facility] Stress Lab Comment on above: Arrived Start: 08-16-2020 End: 08-18-2020 Subsequent hospital visit by physician [facility] Vascular Imaging Room [facility] Vascular Lab Comment on above: Other specified lisette pheral vascular diseases (HCC) Start: 08-16-2020 End: 08-16-2020 Subsequent hospital visit by physician [facility] Cardiology Stress Room [facility] Lab Comment on above: Arrived Start: 07-18-2020 End: 07-18-2020 Emergency department patient visit Sebastian Jany Work Phone: [facility] Comment on above: Abdominal pain, epig astric (Primary Dx) Start: 09-12-2019 End: 09-12-2019 Emergency department patient visit Justice Shaver Work Phone: [facility] Comment on above: Trapezius muscle spa sm (Primary Dx) Start: 06-14-2019 End: 06-14-2019 Emergency department patient visit Pablo Portillo Work Phone: [facility] Comment on above: Chronic pain of both shoulders (Primary Dx); Neck pain, chronic; Nonspecific chest pain Start: 01-29-2018 End: 01-30-2018 Ambulatory DEFAULT PHYSICIAN Facility:[facility] Start: 01-20-2018 End: 01-21-2018 Ambulatory DEFAULT PHYSICIAN Facility:[facility] Start: 01-10-2018 End: 01-13-2018 Evaluation and management of inpatient SOREN MOHR [facility] Procedures Date Procedure Procedure Detail Performing [...] 12-31-2022 Assay of troponin quantitative Cece Villalobos OR ASSISTANT - [facility] Work Phone: Start: 12-31-2022 BASIC METABOLIC PANEL W/ REFLEX TO MG FOR LOW K Cece Villalobos OR ASSISTANT - [employer] Work Phone: Start: 12-31-2022 Lipid panel Cece Villalobos OR ASSISTANT - [facility] Work Phone: Start: 12-31-2022 End: 12-31-2022 Ecg routine ecg w/least 12 lds w/i&r Cece Villalobos OR ASSISTANT - [facility] Work Phone: Start: 12-30-2022 Echo tthrc r-t 2d w/wom-mode compl spec&colr d Cece Bairon Griselda OR ASSISTANT - [employer] Work Phone: Start: 12-30-2022 RESPIRATORY PANEL, MOLECULAR, WITH COVID-19 Cecejhonatan Villalobos OR ASSISTANT - [employer] Work Phone: Start: 12-30-2022 Rhythm ecg 1-3 [...] on above: Performed By: #### HGBHCT #### [facility] [address] [place] [address] Dr. Raimundo Estrada Start: 06-26-2022 Colonoscopy Julian DIAZ Start: 06-26-2022 Esophagogastroduodenoscopy Julian DIAZ Start: 03-25-2022 Sedimentation rate rbc automated [place] lyubov Cowan MD Work Phone: Start: 03-09-2021 Assay of blood/uric acid Julian Dougherty MD Start: 03-09-2021 Radex wrist complete minimum 3 views Julian Dougherty MD Start: 08-16-2020 Duplex scan extracranial art compl bi study Lisa Maya Work Phone: Start: 07-18-2020 Assay of troponin quantitative Sebastian C rismaru Work Phone: Start: 07-18-2020 Radiologic exam chest single view Cipria n Anahiu Work Phone: Start: 07-18-2020 Ct abdomen & pelvis w/o contrast material Sebastian Anahiu Work Phone: Start: 07-18-2020 Ecg routine ecg w/least 12 lds w/i&r Sebastian Anahiu Work Phone: Start: 07-18-2020 EKG REPORT Hpf Scanning Start: 07-18-2020 Assay of lipase Sebastian Aanhiu Work Phone: Start: 07-18-2020 Assay of troponin quantitative Sebastian C rismaru Work Phone: Start: 07-18-2020 Blood count complete auto&auto difrntl wbc Sebastian Crismaru Work Phone: Start: 07-18-2020 Comprehensive metabolic panel Sebastian Cr ismaru Work Phone: Start: 07-18-2020 Urinalysis microscopic only Sebastian Cathie ocampou Work Phone: Start: 07-18-2020 Urnls dip stick/tablet rgnt auto w/o microscopy Sebastian Anahiu Work Phone: Start: 06-14-2019 Assay of troponin [...] SIGNS SHOWKAT AHMAD Start: 01-12-2018 DIAGNOSTIC CARDIAC CIGAR SORTER PROCEDURE SHOWKAT AHMAD Start: 01-12-2018 APTT SHOWKAT [...] DTaP/Tdap/Td vaccine (3 - Td or Tdap) [facility] Start: 12-31-2025 Diabetes screen Diabetes screen [facility] Start: 2025 Pneumococcal 0-64 years Vaccine (3 - PPSV23 if available, else PCV20) Pneumococcal 0-64 years Vaccine (3 - PPSV23 if available, else PCV20) [facility] Start: 2025 Pneumococcal 0-64 years Vaccine (3 - PPSV23 or PCV20) Pneumococcal 0-64 years Vaccine (3 - PPSV23 or PCV20) [facility] Start: 06-24-2024 End: 06-24-2025 MILENA AND PE, SERUM MILENA AND PE, SERUM Lab Routine Hereditary and idiopathic peripheral neuropathy Expected: 06/24/2024, Expires: 06/24/2025 [facility] Comment on above: Expected: 06/24/2024, Expires: 5 Start: 06-24-2024 End: 06-24-2025 MR Cervical spine WO contrast MRI SPINE CERVICAL WITHOUT CONTRAST Imaging Routine Hyperreflexia Expected: 06/24/2024, Expires: 06/24/2025 [facility] Comment on above: Expected: 06/24/2024, Expires: 5 Start: 06-24-2024 End: 06-24-2025 MR Thoracic spine WO contrast MRI SPINE THORACIC WITHOUT CONTRAST Imaging Routine Hyperreflexia Expected: 06/24/2024, Expires: 06/24/2025 [facility] Comment on above: Expected: 06/24/2024, Expires: 5 Start: 06-06-2024 COVID-19 VACCINE ( season) COVID-19 VACCINE ( season) [facility] Start: 06-06-2024 Influenza vaccination INFLUENZA VACCINE (#1) [facility] Start: 01-01-2024 Lipid panel Lipids [facility] Start: 09-18-2023 End: 09-18-2023 Arthrodesis sacroiliac joint percutaneous ARTHRODESIS SACROILIAC JOINT MINIMALLY INVASIVE W/ TRANSFIXING DEVICE Sacroiliitis 09/18/2023 10:52 AM EST [facility] Start: 09-18-2023 End: 09-18-2023 Fluoroscopy up to 1 hour physician/qhp time FLUOROSCOPY IN OR Sacroiliitis 09/18/2023 10:52 AM EST [facility] Start: 08-14-2023 End: 08-14-2023 Patient encounter procedure 08/14/2023 2:45 PM EST Office Visit [facility] [address] [place] [address] Casey Mohr MD [address] [place] [address] [facility] Start: 08-14-2023 End: 08-14-2024 B12/folate level B12 & FOLATE Lab Routine Hereditary and idiopathic peripheral neuropathy Expected: 08/14/2023, Expires: 08/14/2024 [facility] Comment on above: Expected: 08/14/2023, Expires: Start: 08-14-2023 End: 08-14-2024 Hemoglobin A1c/Hemoglobin.total in Blood HEMOGLOBIN A1C Lab Routine Hereditary and idiopathic peripheral neuropathy Expected: 08/14/2023, Expires: 08/14/2024 [facility] Comment on above: Expected: 08/14/2023, Expires: Start: 08-14-2023 End: 08-14-2024 MILENA AND PE, SERUM MILENA AND PE, SERUM Lab Routine Hereditary and idiopathic peripheral neuropathy Expected: 08/14/2023, Expires: 08/14/2024 [facility] Comment on above: Expected: 08/14/2023, Expires: 4 Start: 08-14-2023 End: 08-14-2024 MR Cervical spine WO contrast MRI SPINE CERVICAL WITHOUT CONTRAST Imaging Routine Hyperreflexia Expected: 08/14/2023, Expires: 08/14/2024 [facility] Comment on above: Expected: 08/14/2023, Expires: Start: 08-14-2023 End: 08-14-2024 MR Thoracic spine WO contrast MRI SPINE THORACIC WITHOUT CONTRAST Imaging Routine Hyperreflexia Expected: 08/14/2023, Expires: 08/14/2024 [facility] Comment on above: Expected: 08/14/2023, Expires: Start: 08-14-2023 End: 08-14-2024 VITAMIN B6 VITAMIN B6 Lab Routine Hereditary and idiopathic peripheral neuropathy Expected: 08/14/2023, Expires: 08/14/2024 [facility] Comment on above: Expected: 08/14/2023, Expires: Start: 07-04-2023 End: 07-04-2023 Patient encounter procedure 07/04/2023 9:00 AM EDT Office Visit [facility] [address] [place] [address] Jennie Hernandez MD [address] [place] [address] [facility] Start: 06-10-2023 End: 06-10-2023 Patient encounter procedure 06/10/2023 10:00 AM EDT Office Visit [facility] [address] [place] [address] Jennie Hernandez MD [address] [place] [address] [facility] Start: 06-06-2023 COVID-19 Vaccine ( season) COVID-19 Vaccine ( season) [facility] Start: 06-06-2023 Influenza vaccination [facility] Start: 05-19-2023 End: 05-19-2023 Patient encounter procedure 05/19/2023 9:00 AM EDT Office Visit [facility] [address] [place] [address] Jennie Hernandez MD [address] [place] [address] [facility] Start: 05-06-2023 Influenza vaccination Flu vaccine (#1) [facility] Start: 04-18-2023 End: 04-18-2023 Patient encounter procedure 04/18/2023 12:40 PM EDT Office Visit [facility] [address] [place] [address] Jennie Hernandez MD [address] [place] [address] [facility] Start: 04-15-2023 End: 04-15-2023 Patient encounter procedure 04/15/2023 10:15 AM EDT Office Visit [facility] [address] [place] [address] Jw Capps MD [address] [place] [address] [facility] Start: 03-25-2023 Hemoglobin A1c measurement A1C test (Diabetic or Prediabetic) [facility] Start: 02-25-2023 End: 02-26-2024 Electromyography EMG & NERVE CONDUCTION Neurology Routine Lower extremity numbness Expected: 02/25/2023, Expires: 02/26/2024 [facility] Comment on above: Expected: 02/25/2023, Expires: 4 Start: 01-11-2023 Lipid screen Lipid screen [facility] [place] Start: 04-11-2022 End: 04-11-2022 Patient encounter procedure 04/11/2022 Office Visit Neurology Con Cowan MD [address] [place] [address] [place] [address] [facility] Start: 06-06-2021 Influenza vaccination Flu vaccine (Season Ended) [facility] Work Phone: Start: 01-10-2021 Diabetes screen Diabetes screen [facility] Start: 2020 Respiratory Syncytial Virus (RSV) or age 60 yrs+ (1 - 1-dose 60+ series) Respiratory Syncytial Virus (RSV) or age 60 yrs+ (1 - 1-dose 60+ series) [facility] Start: 2020 RSV VACCINE (1 - 1-dose 60+ series) RSV VACCINE (1 - 1-dose 60+ series) [facility] Start: 08-17-2020 End: 08-17-2020 Appointment 08/17/2020 Appointment [facility] Start: 06-06-2020 Influenza vaccination Flu vaccine (#1) [place] Start: 06-06-2019 Influenza vaccination Flu vaccine (#1) [place] Start: 01-11-2019 Lipid panel [facility] Start: 01-11-2019 Lipid screen Lipid screen [place] Start: 08-13-2018 Prostate specific antigen measurement Prostate Specific Antigen (PSA) Screening or Monitoring [facility] Start: 2010 Colon cancer screen colonoscopy Colon cancer screen colonoscopy [place], [place] Start: 2010 Prostate specific antigen measurement PROSTATE CANCER SCREENING DISCUSSION [facility] Start: 2010 Screening for malignant neoplasm of colon Colon cancer screen colonoscopy [place], [place] Start: 2010 Shingles Vaccine (1 of 2) Shingles Vaccine (1 of 2) [place] Start: 2010 Zoster vaccine hzv live for subcutaneous use ZOSTER (SHINGLES) VACCINE (1 of 2) [facility] Start: 2005 Screening for malignant neoplasm of colon [facility] Start: 2000 Lipid panel LIPID SCREENING [facility] Start: 1979 DTaP/Tdap/Td vaccine (1 - Tdap) DTaP/Tdap/Td vaccine (1 - Tdap) [place] Start: 1979 Third diphtheria, tetanus and acellular pertussis (DTaP) vaccination TDAP (ADULT) [facility] Start: 1978 Hepatitis C screening Hepatitis C screen [facility] Start: 1975 HIV screen HIV screen [place], [place] Start: 1975 HIV screening [facility] Start: 1972 COVID-19 Vaccine (1) COVID-19 Vaccine (1) [facility] Work Phone: Start: 1972 Depression Screen Depression Screen [facility] [employer] Start: 1971 DTaP/Tdap/Td vaccine (1 - Tdap) DTaP/Tdap/Td vaccine (1 - Tdap) [place] Start: 1966 Pneumococcal 0-64 years Vaccine (1 of 1 - PPSV23) Pneumococcal 0-64 years Vaccine (1 of 1 - PPSV23) [place] Start: 1966 Pneumococcal 0-64 years Vaccine (1 of 2 - PPSV23) Pneumococcal 0-64 years Vaccine (1 of 2 - PPSV23) [facility] Work Phone: Start: 04-09-1961 COVID-19 VACCINE (#1) COVID-19 VACCINE (#1) [facility] Start: 1960 Hepatitis C screen Hepatitis C screen [place], [place] Start: 1960 Hepatitis C screening [facility] Start: 1960 Tetanus vaccination TETANUS [facility] End: 01-02-2023 Basic Metabolic Panel w/ Reflex to MG Basic Metabolic Panel w/ Reflex to MG Lab Routine Daily for 3 Days starting 12/31/2022 until 01/02/2023, 1 completed [facility] [employer] Work Phone: Comment on above: Daily for 3 Days starting 12/31/2022 unt il 01/02/2023, 1 completed End: 01-02-2023 CBC W Auto Differential panel - Blood CBC with Auto Differential Lab Routine Daily for 3 Days starting 12/31/2022 until 01/02/2023, 1 completed [employer] [facility] [employer] Work Phone: Comment on above: Daily for 3 Days starting 12/31/2022 unt il 01/02/2023, 1 completed EKG 12 Lead EKG 12 Lead ECG STAT 06/14/2019 10:26 AM EDT [place] EKG 12 lead EKG 12 lead ECG Routine As Needed until discontinued starting 12/30/2022 [facility] [employer] Work Phone: Comment on above: As Needed until discontinued starting End: 03-25-2022 Hemoglobin A1c/Hemoglobin.total in Blood [facility] Phone: Comment on above: 1 Occurrences starting 03/25/2022 until 03/25/2022 End: 12-31-2022 Hemoglobin A1c/Hemoglobin.total in Blood Hemoglobin A1C Lab Routine Tomorrow AM for 1 Occurrences starting 12/31/2022 until 12/31/2022 [facility] Phone: Comment on above: Tomorrow AM for 1 Occurrences starting 0 12/31/2022 until 12/31/2022 Hemoglobin A1c/Hemoglobin.total in Blood Hemoglobin A1C Lab Routine 12/31/2022 6:30 AM EDT [facility] Phone: Initiate ED RT Bronc hospasm Protocol Initiate ED RT Bronchospasm Protocol Respiratory Care Routine Daily until discontinued starting 2023 [employer] Comment on above: Daily until discontinued starting 2023 End: 12-30-2022 Intermittent pulse oximetry Pulse Oximetry Spot Check Respiratory Care Routine One Time for 1 Occurrences starting 12/30/2022 until 12/30/2022 [facility] Phone: Comment on above: One Time for 1 Occurrences starting 12/05 until 12/30/2022 End: 03-25-2022 Nuclear Ab [Titer] in Serum by Immunofluorescence [facility] Phone: Comment on above: 1 Occurrences starting 03/25/2022 until 03/25/2022 Oxygen therapy [[facility] Data Set] Initiate Oxygen Therapy Protocol Respiratory Care Routine As Needed until discontinued starting 12/30/2022 [facility] Phone: Comment on above: As Needed until discontinued starting End: 2023 Portable XR Chest AP single view [employer] Comment on above: Once for 1 Occurrences starting 10/10/19 until 2023 End: 09-18-2023 RF Unspecified body region Views during surgery [facility] Comment on above: One Time for 1 Occurrences starting 09/05 until 09/18/2023 Stress test, lexiscan Stress kendra t, lexiscan Cardiac Services Routine 12/31/2022 3:03 PM EDT [facility] Phone: Vibratory Airway Clearance Vibra tory Airway Clearance Respiratory Care Routine Every 1hr while awake until discontinued starting 12/30/2022 [facility] Phone: Comment on above: Every 1hr while awake until discontinued starting 12/30/2022 End: 03-25-2022 Vitamin B12 & Folate [facility] Phone: Comment on above: 1 Occurrences starting 03/25/2022 until 03/25/2022 XR CHEST PORTABLE XR CHEST HEDY BLE Imaging STAT 06/14/2019 10:43 AM EDT [employer] [place], [place] Payers Date Payer Category Payer Unknown [id number] 2022 Unknown 2022 Unknown [id number] 2021 Unknown [id number] 2021 Unknown [id number] 2019 Private Health Insurance [facility] [id number] 2019-Present [phone] [address] [place] [address] [id number] .7.3.383312.315 2019 Private Health Insurance [employer] xxxxxxxxxx 2019-Present [phone] [address] [place] [address] xxxxxxxxxx 1.2.840.027308.1.13.239.2 .7.3.358389.315 2016 Unknown [id number] 2014 Unknown [id number] 1.2.840.475587.1.13.239.2 .7.3.661428.315 1960 Unknown [id number] 2.16.840.1.193195.3.579.2 .727 1960 Unknown [id number] 2.16.840.1.219097.3.579.2 .727 1960 Unknown [id number] 2.16.840.1.834372.3.579.2 .727 1960 Unknown [id number] 2.16.840.1.375304.3.579.2 .727 1960 Unknown [id number] 2.16.840.1.082680.3.579.2 .593 1960 Unknown [id number] 2.16.840.1.494217.3.579.2 .593 1960 Unknown [id number] 2.16.840.1.878647.3.579.2 .593 1960 Unknown [id number] 2.16.840.1.784470.3.579.2 .593 1960 Unknown [id number] 2.16.840.1.529607.3.579.2 .593 1960 Unknown [id number] 2.16.840.1.174838.3.579.2 .593 1960 Unknown [id number] 2.16.840.1.052965.3.579.2 .593 1960 Unknown [id number] 2.16.840.1.700784.3.579.2 .593 1960 Unknown [id number] 2.16.840.1.127342.3.579.2 .593 1960 Unknown [id number] 2.16.840.1.435332.3.579.2 .593 1960 Unknown [id number] 2.16.840.1.943902.3.579.2 .593 1960 Unknown [id number] 2.16.840.1.368197.3.579.2 .593 1960 Unknown [id number] 2.16.840.1.760193.3.579.2 .593 1960 Unknown [id number] 2.16.840.1.949472.3.579.2 .593 1960 Unknown [id number] 2.16.840.1.066473.3.579.2 .593 1960 Unknown [id number] 2.16.840.1.040857.3.579.2 .593 1960 Unknown [id number] 2.16.840.1.954902.3.579.2 .593 1960 Unknown [id number] 2.16.840.1.839197.3.579.2 .593 1960 Unknown [id number] 2.16.840.1.006623.3.579.2 .593 1960 Unknown [id number] 2.16.840.1.279140.3.579.2 .593 1960 Unknown [id number] 2.16.840.1.694310.3.579.2 .983 1960 Unknown [id number] 2.16.840.1.095263.3.579.2 .983 1960 Unknown [id number] 2.16.840.1.479355.3.579.2 .983 1960 Unknown [id number] 2.16.840.1.888257.3.579.2 .983 1960 Unknown [id number] 2.16.840.1.844754.3.579.2 .983 1960 Unknown [id number] 2.16.840.1.317802.3.579.2 .983 1960 Unknown [id number] 2.16.840.1.262501.3.579.2 .983 1960 Unknown [id number] 2.16.840.1.814808.3.579.2 .983 1960 Unknown [id number] 2.16.840.1.935303.3.579.2 .983 1960 Unknown [id number] 2.16.840.1.255564.3.579.2 .983 1960 Unknown [id number] 2.16.840.1.922909.3.579.2 .983 1960 Unknown [id number] 2.16.840.1.926635.3.579.2 .983 1960 Unknown [id number] 2.16.840.1.629722.3.579.2 .983 1960 Unknown [id number] 2.16.840.1.536448.3.579.2 .173 1960 Unknown [id number] 2.16.840.1.841810.3.579.2 .173 1960 Unknown [id number] 2.16.840.1.430360.3.579.2 .1259 1960 Unknown [id number] 2.16.840.1.163295.3.579.2 .196 1960 Unknown [id number] 2.16.840.1.179621.3.579.2 .196 1960 Unknown [id number] 2.16.840.1.912332.3.579.2 .983 1960 Unknown [id number] 2.16.840.1.025090.3.579.2 .983 1959 Unknown [id number] 1.2.840.182491.1.13.239.2 .7.3.551822.315 1959 Unknown [id number] Social History Date Type Detail Facility Start: 06-14-2019 End: 02-25-2023 Tobacco smoking status NHIS Never smoker [facility] [employer] Start: 06-14-2019 End: 06-24-2024 Alcohol intake Yes [place], [place] Start: 06-14-2019 Alcohol Comment not every day [place], [place] Start: 1960 Sex Assigned At Not on file [place] Start: 09-12-2019 End: 06-24-2024 Alcohol intake Current drinker of alcohol (finding) [place] Start: 07-18-2020 End: 02-25-2023 Tobacco use and exposure [facility] [place] Start: 03-15-2022 End: 12-30-2022 Exposure to SARS-CoV-2 (event) Not sure [place] Start: 03-09-2021 End: 06-24-2024 Alcohol intake [facility] [employer] Tobacco smoking status Never Gener [facility] Start: 12-30-2022 History SDOH Alcohol Frequency 5 [facility] [employer] Work Phone: Start: 12-30-2022 History SDOH Alcohol Std Drinks 2 [employer] Work Phone: Start: 09-09-2023 Alcohol Comment 3-4 BEERS DAILY [facility] How often to you hav e a drink containing alcohol? 4 or more times a week [employer] How many standard dr inks containing alcohol do you have on a typical day? 3 or 4 [employer] How often do you hav e 6 or more drinks on 1 occasion? Daily or almost daily [facility] Procedure Code Equipment Code Equipment Origin al Text Equipment Identifier Dates [employer] [id number] Start: 09-18-2023 Julia [id number] Start: 09-18-2023 [employer] [id number] Start: 09-18-2023 [employer] [id number] Start: 09-18-2023 Goals Date Patient Goal Desired [...] prepare for safety after surgery. 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 Return to normal activity of house work/leisure/ADLs with post op therapy as ordered by surgeon if needed. Functional Status Date Assessment Result Facility 05-31-2022 Functional Status N/A [facility] Clinical Notes 02-21-2022 to 06-24-2024 Casey Mohr MD - 06/24/2024 8:45 AM EDTDischarge InstructionsNursing Notes - Griselda Craig RN - 09/18/2023 2:38 PM ESTNursing Notes - Griselda Craig RN - 09/18/2023 2:38 PM ESTDischarge Instructions Note Date & Type Note Facility 06-24-2024 History of Present illness Narrative [facility] NOTE Chief Complaint Patient presents with Follow-up Neuropathy History of Present Illness: Noel Alva is a pleasant 63 y.o. male, returning in follow up for peripheral neuropathy. He was last seen by me on 08/14/23. At the time he did have signs of myeloneuropathy. MRI cervical/thoracic spine and screening labs were ordered but were not completed as he had some other medical problems. He had a heart catheterization and also had an SI joint fusion. He is not diabetic, but at the time of his last visit, he did admit to drinking daily. B12, HA1C normal. He is prescribed neuropathic pain medication through his pain management physician in [place]. He has a history of a lumbar [...] spine. Past Medical History: Diagnosis Date Anemia Arthritis Asthma CAD (coronary artery disease) Essential hypertension, benign GERD (gastroesophageal reflux disease) Hyperlipidemia Past Surgical History: Procedure Laterality Date HEART CATHETERIZATION 2023 [place] ARTHRODESIS SACROILIAC JOINT MINIMALLY INVASIVE W/ TRANSFIXING DEVICE Right 09/18/2023 Laterality: Right; Surgeon: Shaheen Chappell MD; Location: [facility] OR FLUOROSCOPY IN OR Right 09/18/2023 Laterality: Right; Surgeon: Shaheen Chappell MD; Location: [facility] OR COLOSTOMY N/A CORONARY STENT PLACEMENT N/A 2004 AND 2005 LAMINECTOMY VERTEBRAL SEGMENT LUMBAR Midline REMOVAL CATARACT (PEM) Bilateral History reviewed. No pertinent family history. Social History Tobacco Use Smoking status: Never Smokeless tobacco: Never Vaping Use Vaping status: Never Used Substance Use Topics Alcohol use: Yes Comment: 3-4 BEERS DAILY Drug use: Never Current Outpatient Medications Medication Sig Albuterol 108 (90 Base) MCG/ACT Aero Soln inhaler Inhale 2 puffs. amLODIPine 10 MG tablet Take 1 tablet by mouth daily every morning. aspirin, [id number], tablet Take 1 tablet by mouth daily. Take 1 tablet (total dose= 81mg) by mouth daily. Return bottle(s) & unused medication at your next visit. Atorvastatin 20 MG tablet Take 1 tablet by mouth daily every morning. Cholecalciferol (Vitamin D3) 50 MCG (2000 UT) tablet Take 1 tablet by mouth daily. Isosorbide mononitrate 60 MG Tab SR 24 HR tablet XL Take 2 tablets by mouth daily. lisinopril 40 MG tablet Take 1 tablet by mouth daily. Metoprolol succinate 25 MG tablet XL nitroGLYCERIN 0.4 MG tablet SL DISSOLVE ONE TABLET UNDER THE TONGUE EVERY 5 MINUTES NEEDED FOR CHEST PAIN. DO NOT EXCEED A TOTAL OF 3 DOSES IN 15 MINUTES Pantoprazole [address] tablet DR Take 1 tablet by mouth 2 times daily. Pregabalin 50 MG capsule Take 2 capsules by mouth 2 times daily. SV Iron 325 MG tablet Take 1 tablet by mouth 2 times daily. tiZANidine HCl (ZANAFLEX PO) Take by mouth as needed. hydroCODone-acetaminophen 5-325 MG tablet Take 1 tablet by mouth 4 times daily as needed for Moderate Pain for up to 5 days. No Known Allergies Physical Exam: BP 158/90 (BP Location: Left arm, BP Position: Sitting) Pulse 65 Ht 1.676 m (5' 6 ) Wt 79.1 kg (174 lb 4.8 oz) SpO2 98% BMI 28.13 kg/m Smoking Status Never Neurological Examination Mental status: Awake and alert; oriented. Normal attention. Recall intact. Logic normal. No neglect or apraxia. Language fluency and comprehension are normal; object naming intact; repetition intact. Content of speech is normal. There is no dysarthria. Cranial nerves: CN II: Visual merritt intact to confrontation. PERRL. Normal conjunctivae and lids. There is no papilledema on fundoscopy. 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 male who presents in follow up to complete workup for idiopathic neuropathy. Exam is suggestive of myeloneuropathy. Noel was seen today for follow-up. Diagnoses and all orders for this visit: Hereditary and idiopathic peripheral neuropathy - MILENA AND PE, SERUM; Future Hyperreflexia - MRI SPINE CERVICAL WITHOUT CONTRAST; Future - MRI SPINE THORACIC WITHOUT CONTRAST; Future Casey Mohr MD 06/24/2024 documented in this encounter [facility] 06-16-2024 Note Lipids are well cont rolled. Last lab's reviewed from May 2024. [facility] 06-16-2024 Note -ranexa Dc'd- theref ore will increase imdur to 120 mg daily Pt to call for any concerns of chest pain/angina, lightheadedness or dizziness. [facility] 06-16-2024 Note Hypertension is well controlled. Continue taking metoprolol 25 mg and lisinopril 40 mg. [facility] 06-16-2024 Note Coronary artery dise ase is stable. Cardiac cath on 07/02 showed mild disease of the left circumflex coronary and moderate in-stent restenosis of LAD. Continue taking aspirin 81 mg. Pt did not tolerate Ranexa r/t anaphylaxis therefore will increase imdur to 120 mg- he has rather vague symptoms. Extended d/w pt regarding resuming lipitor for CAD and in stent stenosis noted of LAD stent, he states I didn't feel well on the 80 mg, and he is agreeable to resume taking 40 mg and to call office for any concerning symptoms, and repeat Lipids and LFT in 2-3 months. RTC [address] Marin to reassess [facility] 06-16-2024 Note [facility] CARDIOLOGY PROGR ESS NOTE HPI: Noel Alva is a 63 y.o. male here for hospital F/U HPI 63 yo male presents to clinic for hospital f/U after recent admit for Unstable angina, cardiac cath that did show moderate in-stent restenosis of LAD, otherwise mild-moderate multivessel disease. Pt is here from a follow up from being [facility]. Pt claims to have funny feeling in his chest, but not pain. He claims he felt sick this morning but it went away. Pt says he felt like his neck was swelled this morning, denied any difficulty swallowing or breathing. States ranexa caused vision changes- everything turned white and my tongue swelled that night and I never took another dose, and symptoms resolved with stopping this med. Denied chest pain with rest or exertion, occasional palpitations that last only a second. Denied SOB, Orthopnea or activity limiting symptoms. 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 Review of Systems Cardiovascular: Positive for claudication and near-syncope. Respiratory: Positive for shortness of breath. Musculoskeletal: Positive for arthritis, back pain, joint pain and myalgias. Genitourinary: Positive for frequency. Neurological: Positive for dizziness, light-headedness and numbness. All other systems reviewed and are negative. Hospital Medicine Discharge Summary Final Discharge Diagnosis: Unstable angina Admission Diagnosis: Unstable angina ([facility]) [I20.0] Hospital course: 63yoM with past medical history of CAD s/p PCI to LAD, hypertension, hyperlipidemia, GERD who was admitted from [facility] to [facility] on 05/28 for unstable angina. Cardiology service was consulted for cardiac catheterization on 05/31 that did not warrant intervention; although, it did show moderate in-stent restenosis of LAD, otherwise mild-moderate multivessel disease. TTE performed after that showed EF 55 and G1DD. Patient was provided with ranolazine and discharged home. Visit Vitals BP 134/80 (BP Location: Left arm, Patient Position: Sitting) Pulse 85 Ht 1.676 m (5' 6 ) Wt 73 kg (161 lb) SpO2 93% BMI 25.99 kg/m??? Smoking Status Never BSA 1.84 m??? Allergies Allergen Reactions Ranexa [Ranolazine] Anaphylaxis Medications: Current Outpatient Medications on File Prior to Visit Medication Sig Dispense Refill albuterol 90 mcg/actuation inhaler Inhale 2 puffs every 6 (six) hours if needed for wheezing. aspirin 81 mg chewable tablet Chew 1 tablet every day by oral route. ferrous sulfate 325 (65 Fe) MG tablet Take 325 mg by mouth two times daily. hydroCHLOROthiazide (HYDRODiuril) 25 mg tablet Take 25 mg by mouth in the morning. lisinopril 40 mg tablet Take 1 tablet (40 mg) by mouth in the morning. 90 tablet 3 meloxicam (Mobic) 15 mg tablet Take 15 mg by mouth in the morning. nitroglycerin (Nitrostat) 0.4 mg SL tablet DISSOLVE ONE TABLET UNDER THE TONGUE EVERY 5 MINUTES NEEDED FOR CHEST PAIN. DO NOT EXCEED A TOTAL OF 3 DOSES IN 15 MINUTES 90 tablet 3 oxyCODONE-acetaminophen (Percocet) 5-325 mg tablet TAKE 1 TABLET BY MOUTH THREE TIMES DAILY NEEDED FOR LUMBAR RADICULOPATHY. pantoprazole (ProtoNix) 40 mg EC tablet Take 40 mg by mouth before breakfast. pregabalin (Lyrica) 100 mg capsule Take 100 mg by mouth in the morning and at bedtime. [DISCONTINUED] isosorbide mononitrate ER (Imdur) 60 mg 24 hr tablet Take 1 tablet (60 mg) by mouth in the morning. Do not crush or chew. 90 tablet 3 [DISCONTINUED] metoprolol succinate XL (Toprol-XL) 100 mg 24 hr tablet TAKE 1 TABLET BY MOUTH ONCE DAILY DIRECTED 90 tablet 3 [DISCONTINUED] metoprolol succinate XL (Toprol-XL) 25 mg 24 hr tablet Take 1 tablet (25 mg) by mouth in the morning for 96 doses. Do not crush or chew. Do not start before June 01, 2024. 30 tablet 3 cholecalciferol (Vitamin D-3) 50 MCG (2000 UT) tablet Take 1 tablet by mouth in the morning. ezetimibe (Zetia) 10 mg tablet Take 1 tablet (10 mg) by mouth in the morning. (Patient not taking: Reported on 06/16/2024) 90 tablet 3 [DISCONTINUED] atorvastatin (Lipitor) 80 mg tablet Take 1 tablet (80 mg) by mouth at bedtime for 96 doses. (Patient not taking: Reported on 06/16/2024) 30 tablet 3 [DISCONTINUED] ranolazine (Ranexa) 500 mg 12 hr tablet Take 1 tablet (500 mg) by mouth two times daily for 197 doses. Do not crush, chew, or split. (Patient not taking: Reported on 06/16/2024) 60 tablet 3 No current facility-administered medications on file prior to visit. Physical Exam: Constitutional: Appearance: Normal appearance. Without apparent distress HENT: Head: Normocephalic and atraumatic. Nose: Nose normal. Mouth/Throat: Mouth: Mucous membranes are moist. Eyes: Extraocular Movements: Extraocular movements intact. Conjunctiva/sclera: Conjunctivae normal. Neck: Vascular: No JVD. Cardiovascular: Rate and Rhythm: Normal rate and regular rhythm. Pulses: radial, and Dorsalis pedis pulses are (more content not included)... [facility] 06-16-2024 Note Pt is here from a fo llow up from being [facility]. Pt claims to have funny feeling in his chest, but not pain. He claims he felt sick this morning but it went away. Pt says he felt like his neck was swelled this morning. Review of Systems Cardiovascular: Positive for chest pain, claudication and near-syncope. Respiratory: Positive for shortness of breath. Musculoskeletal: Positive for arthritis, back pain, joint pain and myalgias. Genitourinary: Positive for frequency. Neurological: Positive for dizziness, light-headedness and numbness. All other systems reviewed and are negative. [facility] 05-31-2024 Note Hospital Medicine Discharge Summary Final Discharge Diagnosis: Unstable angina Admission Diagnosis: Unstable angina ([facility]) [I20.0] Hospital course: 63yoM with past medical history of CAD s/p PCI to LAD, hypertension, hyperlipidemia, GERD who was admitted from [facility] to [facility] on 05/28 for unstable angina. Cardiology service was consulted for cardiac catheterization on 05/31 that did not warrant intervention; although, it did show moderate in-stent restenosis of LAD, otherwise mild-moderate multivessel disease. TTE performed after that showed EF 55 and G1DD. Patient was provided with ranolazine and discharged home. Surgical, Invasive or Diagnostic Procedures Done During Admission: Cardiac Cath Consultations During Admission: Cardiology Dear Dr. Magda MD, Noel is advised to follow up with you within 1-2 weeks. Items to follow up in ambulatory setting: None Follow-up with: Cardiology Scheduled appointments: Future Appointments Date Time Provider Department Center 06/16/2024 10:40 AM Lisa Maya NP [facility] [place] Your medication list START taking these medications Instructions Last Dose Given Next Dose Due metoprolol succinate XL 25 mg 24 hr tablet Commonly known as: Toprol-XL Start taking on: June 01, 2024 Take 1 tablet (25 mg) by mouth in the morning for 96 doses. Do not crush or chew. Do not start before June 01, 2024. ranolazine 500 mg 12 hr tablet Commonly known as: Ranexa Take 1 tablet (500 mg) by mouth two times daily for 197 doses. Do not crush, chew, or split. CHANGE how you take these medications Instructions Last Dose Given Next Dose Due atorvastatin 80 mg tablet Commonly known as: Lipitor What changed: medication strength how much to take when to take this Take 1 tablet (80 mg) by mouth at bedtime for 96 doses. CONTINUE taking these medications Instructions Last Dose Given Next Dose Due albuterol 90 mcg/actuation inhaler aspirin 81 mg chewable tablet cholecalciferol 50 MCG (2000 UT) tablet Commonly known as: Vitamin D-3 ezetimibe 10 mg tablet Commonly known as: Zetia Take 1 tablet (10 mg) by mouth in the morning. ferrous sulfate 325 (65 Fe) MG tablet hydroCHLOROthiazide 25 mg tablet Commonly known as: HYDRODiuril isosorbide mononitrate ER 60 mg 24 hr tablet Commonly known as: Imdur Take 1 tablet (60 mg) by mouth in the morning. Do not crush or chew. lisinopril 40 mg tablet Take 1 tablet (40 mg) by mouth in the morning. meloxicam 15 mg tablet Commonly known as: Mobic nitroglycerin 0.4 mg SL tablet Commonly known as: Nitrostat DISSOLVE ONE TABLET UNDER THE TONGUE EVERY 5 MINUTES NEEDED FOR CHEST PAIN. DO NOT EXCEED A TOTAL OF 3 DOSES IN 15 MINUTES oxyCODONE-acetaminophen 5-325 mg tablet Commonly known as: Percocet pantoprazole 40 mg EC tablet Commonly known as: ProtoNix pregabalin 100 mg capsule Commonly known as: Lyrica Where to Get Your Medications These medications were sent to [facility] - [address] [place] [address] [address] [place] [address], [facility] [address] atorvastatin 80 mg tablet metoprolol succinate XL 25 mg 24 hr tablet ranolazine 500 mg 12 hr tablet Noel has No Known Allergies. Disposition: Home or Self Care () Discharge Condition: Stable Code Status: Full Code Diagnostic Results Hematology: Results from last 7 days Lab Units 05/31/24 0522 05/30/24 0508 WBC AUTO 10*3/uL 7.85 7.33 HEMOGLOBIN g/dL 13.7 14.1 HEMATOCRIT % 40.4 43.1 MCV fL 92.7 96.4 PLATELETS AUTO 10*3/uL 171 181 Chemistry: Results from last 7 days Lab Units 05/30/24 0508 05/28/24 1753 SODIUM mmol/L 135* 136 POTASSIUM mmol/L 4.1 3.6 CHLORIDE mmol/L 101 97* CO2 mmol/L 26 29 BUN mg/dL 22 20 CREATININE mg/dL 0.71 0.75 GLUCOSE mg/dL 105* 109* MAGNESIUM mg/dL 1.8* 2.1 CALCIUM mg/dL 9.1 9.8 No lab exists for component: AFIO2 , APHT , APCOT , APOT , ATCO2 , CK , ALB , IBILI Test Results Pending At Discharge: Diet at the time of discharge: cardiac diet Nutrition Screen Activity: Patient currently has no discharge activity orders Objective Blood pressure (!) 137/101, pulse 90, temperature 36.6 ???C (97.9 ???F), temperature source Temporal, resp. rate 21, height 1.676 m (5' 6 ), weight 73.8 kg (162 lb 12.8 oz), SpO2 93 %. Cardiology: Normal rate, regular rhythm. Lungs: Clear to auscultation, no wheezes, rales or rhonchi, symmetric air entry. Abdomen: Soft, non tender, non distended. Total time for discharge - review of data, exam, discussion with providers and care-team, med-rec and orders, arranging follow up, counseling of patient and/or family and documentation was 30 minutes. Signed Sydney Mclean MD [facility] Medicine 05/31/2024 5:10 PM CC: MD Magda [facility] 05-31-2024 Note Attestation signed by Destiney Curran MD at 06/01/2024 9:49 AM GC: I saw this patient. I personally performed the critical/argutea portions that determines the level of service. I was directly involved in the management and treatment plan of the patient. I reviewed fellow Dr. Baltazar's note and agree with the documentation Cardiology Progress Note Subjective Subjective: No acute events overnight. Patient was seen and examined today morning-remains chest pain free. Objective Objective: Patient Vitals for the past 24 hrs: BP Temp Temp src Pulse Resp SpO2 Weight 05/31/24 1300 (!) 138/108 36.6 ???C (97.9 ???F) Temporal 92 21 97 % -- 05/31/24 1101 108/78 -- -- 69 17 97 % -- 05/31/24 1030 116/87 -- -- 69 14 100 % -- 05/31/24 1000 (!) 135/95 -- -- 60 17 96 % -- 05/31/24 0949 -- -- -- -- -- 97 % -- 05/31/24 0945 113/88 -- -- 60 17 94 % -- 05/31/24 0930 (!) 120/95 -- -- 68 18 -- -- 05/31/24 0915 (!) 131/93 36.4 ???C (97.5 ???F) Temporal 64 15 95 % -- 05/31/24 0913 129/88 -- -- 66 -- -- -- 05/31/24 0858 (!) 132/96 -- -- 69 15 96 % -- 05/31/24 0832 (!) 143/97 -- -- 65 18 97 % -- 05/31/24 0743 (!) 147/98 37.8 ???C (100 ???F) Temporal 68 23 96 % -- 05/31/24 0417 -- -- -- -- -- -- 73.8 kg (162 lb 12.8 oz) 05/31/24 0355 122/80 -- -- 60 18 96 % -- 05/31/24 0030 118/80 -- -- 63 18 95 % -- 05/30/24 2105 132/90 36.8 ???C (98.2 ???F) Temporal 92 22 97 % -- 05/30/24 1600 125/84 37 ???C (98.6 ???F) Temporal 99 21 97 % -- Physical Examination: GENERAL: AOx3, in no acute distress. HEAD: Atraumatic, normocephalic. EYES: BRIAN, EOMI. NECK: No JVD present. CARDIAC: RRR. No murmur, rubs, or gallops. RESPIRATORY: CTAB, no increased effort of breathing. ABDOMEN: Soft, nontender, nondistended. EXTREMITIES: No lower extremity edema, peripheral pulses are 2+ bilaterally. NEURO: No focal deficits Relevant Lab Results Encounter Date: 05/28/24 ECG 12 lead Result Value Ventricular Rate 94 Atrial Rate 94 NV Interval 132 QRS DURATION 72 QT Interval 410 QTC CALCULATION(BAZETT) 512 P [place] 60 R-[place]legan 50 T Wave [place] 70 Impression Normal sinus rhythm Nonspecific ST changes Prolonged QT Abnormal ECG Confirmed by Deepali Townsend ([id number]) on 05/30/2024 9:19:37 PM Lab Results Component Value Date TROPONINI 0.02 05/29/2024 No echocardiogram results found for the past 12 months No nuclear medicine results found for the past 12 months Relevant Imaging Results Cardiac catheterization Addendum: Cardiovascular Laboratory Report FINAL IMPRESSIONS: Moderate in-stent restenosis of the left anterior descending coronary artery Mild disease of the left circumflex coronary artery Moderate ostial disease of the posterior descending branch of the right coronary artery Mildly elevated left ventricular end-diastolic pressure Normal global left ventricular systolic function by noninvasive imaging RECOMMENDATIONS: Aggressive cardiovascular risk factor modification Optimal medical therapy for coronary artery disease should include aspirin, high intensity statin therapy, a beta-sarah +/- a RAAS inhibitor Uptitrate antianginal medications as needed; consider increasing Imdur and/or addition of Ranexa Consider noncardiac etiologies for the patient's chest pain symptoms namely musculoskeletal, pulmonary, and/or gastrointestinal A complete echocardiogram will be ordered Further recommendations deferred to the inpatient services PROCEDURES: Ultrasound-guided access to the left radial artery, left heart catheterization, bilateral selective coronary angiography via a left radial approach METHODS: After risks, benefits, and alternatives were explained, written informed consent was obtained. The patient was prepped and draped in usual sterile fashion over the left wrist. Local infiltration anesthesia was achieved of the left wrist. Using a micropuncture kit, access to the left radial artery was obtained. A 6 Nepalese glide sheath was inserted without difficulty. Bilateral selective coronary angiography was performed using JR 4.0, AR2 and JL 4.0 catheters. The JR catheter was used for left heart catheterization and pull-back pressure measurements. After reviewing the images, it was elected to conclude the procedure. The catheters were removed. The radial sheath was removed with application of a TR band per protocol to achieve optimal hemostasis. FINDINGS: Hemodynamics: AO 114/104 [108] LV 114, 12-15 LEFT VENTRICULOGRAPHY: This was not performed. Ejection fraction is 78% by noninvasive stress test in the past. CORONARY ARTERIES: Left main coronary artery: This arises from the left coronary cusp and bifurcates into the left anterior descending and left circumflex coronary arteries it is free of significant stenosis. Left (more content not included)... [facility] 05-31-2024 Note Cardiovascular Labor atory Report FINAL IMPRESSIONS: Moderate in-stent restenosis of the left anterior descending coronary artery Mild disease of the left circumflex coronary artery Moderate ostial disease of the posterior descending branch of the right coronary artery Mildly elevated left ventricular end-diastolic pressure Normal global left ventricular systolic function by noninvasive imaging RECOMMENDATIONS: Aggressive cardiovascular risk factor modification Optimal medical therapy for coronary artery disease should include aspirin, high intensity statin therapy, a beta-sarah +/- a RAAS inhibitor Uptitrate antianginal medications as needed; consider increasing Imdur and/or addition of Ranexa Consider noncardiac etiologies for the patient's chest pain symptoms namely musculoskeletal, pulmonary, and/or gastrointestinal A complete echocardiogram will be ordered Further recommendations deferred to the inpatient services PROCEDURES: Ultrasound-guided access to the left radial artery, left heart catheterization, bilateral selective coronary angiography via a left radial approach METHODS: After risks, benefits, and alternatives were explained, written informed consent was obtained. The patient was prepped and draped in usual sterile fashion over the left wrist. Local infiltration anesthesia was achieved of the left wrist. Using a micropuncture kit, access to the left radial artery was obtained. A 6 Nepalese glide sheath was inserted without difficulty. Bilateral selective coronary angiography was performed using JR 4.0, AR2 and JL 4.0 catheters. The JR catheter was used for left heart catheterization and pull-back pressure measurements. After reviewing the images, it was elected to conclude the procedure. The catheters were removed. The radial sheath was removed with application of a TR band per protocol to achieve optimal hemostasis. FINDINGS: Hemodynamics: AO 114/104 [108] LV 114, 12-15 LEFT VENTRICULOGRAPHY: This was not performed. Ejection fraction is 78% by noninvasive stress test in the past. CORONARY ARTERIES: Left main coronary artery: This arises from the left coronary cusp and bifurcates into the left anterior descending and left circumflex coronary arteries it is free of significant stenosis. Left anterior descending coronary artery: This shows evidence of a previous sleep a stent in the midportion of the vessel with diffuse, 40 to 50% in-stent restenosis. It is a long wraparound left anterior descending. The diagonal branches show luminal irregularities in caliber reduction. Left circumflex coronary artery: This shows mild luminal irregularities. There is a proximal to mid vessel 30% stenosis at the bifurcation with a large branching second obtuse marginal. Right coronary artery: This is a dominant vessel arising from the right coronary cusp in an anterior fashion giving rise to the posterior descending and posterolateral branches. It shows mild plaque with calcification throughout. The ostium of the posterior descending branch shows a 50% narrowing; it is a small caliber vessel INDICATIONS: Unstable angina [facility] 05-30-2024 Note Attestation signed by Kristian Palumbo MD at 05/30/2024 4:21 PM I personally saw and examined the patient on the same date of service as resident/fellow Dr Vann. I discussed the findings and therapeutic plan with the resident/fellow Dr Vann. I agree with the documentation, except for any edits/updates below. Teaching Physician's Revisions: None Patient continues to do well. He denies a recurrence of chest pain. He continues to have be on heparin IV infusion The plan is to continue current management and cardiac catheterization in a.m. Kristian Palumbo MD, [facility] Cardiology Progress Note Subjective Subjective: No acute events overnight. Patient was seen and examined today morning-remains chest pain free. Objective Objective: Patient Vitals for the past 24 hrs: BP Temp Temp src Pulse Resp SpO2 Weight 05/30/24 1200 117/74 36.9 ???C (98.5 ???F) Temporal 87 20 95 % -- 05/30/24 0908 -- -- -- -- -- 97 % -- 05/30/24 0746 130/83 36.8 ???C (98.3 ???F) Oral 59 16 96 % -- 05/30/24 0410 140/89 37.2 ???C (99 ???F) -- 67 21 99 % -- 05/30/24 0400 -- -- -- -- -- -- 69.9 kg (154 lb 3.2 oz) 05/30/24 0004 (!) 129/93 37.2 ???C (99 ???F) Oral 67 19 97 % -- 05/29/24 2300 -- -- -- 68 15 93 % -- 05/29/24 2018 141/85 37.4 ???C (99.4 ???F) Oral 99 23 95 % -- 05/29/24 1621 123/88 36.9 ???C (98.4 ???F) Oral 98 18 96 % -- Physical Examination: GENERAL: AOx3, in no acute distress. HEAD: Atraumatic, normocephalic. EYES: BRIAN, EOMI. NECK: No JVD present. CARDIAC: RRR. No murmur, rubs, or gallops. RESPIRATORY: CTAB, no increased effort of breathing. ABDOMEN: Soft, nontender, nondistended. EXTREMITIES: No lower extremity edema, peripheral pulses are 2+ bilaterally. NEURO: No focal deficits Relevant Lab Results Encounter Date: 05/28/24 ECG 12 lead Result Value Ventricular Rate 94 Atrial Rate 94 NV Interval 132 QRS DURATION 72 QT Interval 410 QTC CALCULATION(BAZETT) 512 P [place] 60 R-[place]le[place] 50 T Wave [place] 70 Impression Normal sinus rhythm Prolonged QT Abnormal ECG When compared with ECG of 28-MAY-2024 16:46, Vent. rate has increased BY 39 BPM T wave inversion no longer evident in Anterolateral leads QT has lengthened Lab Results Component Value Date TROPONINI 0.02 05/29/2024 No echocardiogram results found for the past 12 months No nuclear medicine results found for the past 12 months Relevant Imaging Results US neck Narrative: US NECK HISTORY: Left-sided neck growth. COMPARISON: None. Impression: Findings/impression: Patient states he does not feel a neck mass. There are small bilateral cervical lymph nodes nonenlarged measuring up to 5 mm in short axis. Otherwise no visible soft tissue mass or fluid collection. Electronically signed: Oli Conrad MD. ECG 12 lead Normal sinus rhythm Prolonged QT Abnormal ECG When compared with ECG of 28-MAY-2024 16:46, Vent. rate has increased BY 39 BPM T wave inversion no longer evident in Anterolateral leads QT has lengthened Assessment: Unstable angina CAD s/p stenting of the LAD in 2005 cath at [facility] 01/12/2018 due to chest pain that showed minimal disease and patent LAD stent. HTN HLD Plan: Continue aspirin, BB and statin Check modifiable risk factors including lipid panel and hemoglobin A1C Obtain TTE to assess cardiac function NPO after midnight for tentative heart catheterization tomorrow Maintain telemetry Optimize electrolytes Lucero Vann MD Electric Ship[employer] Operator - PGY5 [facility] 05-30-2024 Note Hospital Medicine Daily Progress Note - 05/30/2024 8:09 AM; Room: [address] [place] [address] Admission: 05/28/2024 3:36 PM; Length of stay: 2 days THE HOSPITALIST TEAM PREFERS TO USE [employer] CHAT FOR COMMUNICATION 7AM-7PM. IF I DO NOT RESPOND WITHIN 15 MINUTES, PLEASE PAGE ME/CALL THROUGH THE FASHION DESIGNER. FROM 7PM-7AM, PLEASE PAGE [phone](COVR) Code Status: Full Code Barriers to Discharge: cath Expected Discharge Date: 06/01 Discharge Destination: home Overview Patient is seen for evaluation and management of unstable angina. Subjective Patient seen and examined. No chest pain, SOB. Legs still neuropathic but improved after Lyrica. Cath tomorrow Physical Exam Visit Vitals BP 130/83 (BP Location: Left arm, Patient Position: Lying) Pulse 59 Temp 36.8 ???C (98.3 ???F) (Oral) Resp 16 Intake/Output Summary (Last 24 hours) at 05/30/2024 0809 Last data filed at 05/30/2024 0746 Gross per 24 hour Intake 1582.51 ml Output 875 ml Net 707.51 ml Estimated body mass index is 24.89 kg/m??? as calculated from the following: Height as of this encounter: 1.676 m (5' 6 ). Weight as of this encounter: 69.9 kg (154 lb 3.2 oz). Constitutional: NAD, AOx3 Eyes: EOMI, normal conjunctiva Neck: L sided submandibular growth, non-tender, no difficulty swallowing CV: RRR, normal S1-S2, no murmurs Resp: CTA, no crackles or wheezing Abd: Soft, non-tender Extremities: No swelling, 2+ distal pulses Skin : Warm, dry Neuro: AOx3, no focal deficits Psych: Appropriate mood and affect Active Inpatient Problems Principal Problem: Unstable angina (CMS/HCC) Active Problems: Coronary artery disease involving y[place] coronary artery of yankton heart with unstable angina pectoris (CMS/HCC) Dyslipidemia Primary hypertension GERD (gastroesophageal reflux disease) Assessment and Plan Unstable angina CAD of y[place] arteries of y[place] heart Hypertension Bradycardia Hyperlipidemia -Trop negative, EKG TWI anterior leads -Recommended hospitalization for cardiac catheterization Friday -Cardiology consulted -Continue telemetry -Continue heparin gtt -Continue lipitor 80 -Imdur 60 every day -ASA Hyperglycemia Lower extremity axonal polyneuropathy (EMG 2022) H/o lumbar laminectomy 1994 -A1c 5.9 -Hold off on SSI -Increase Lyrica to 150 Facial erythema and swelling Neck swelling Night sweats -US neck negative for LAD or growth fortunately -TSH wnl -continue to monitor VTE Prophylaxis: IV heparin Scheduled Meds aspirin, 81 mg, oral, Daily atorvastatin, 80 mg, oral, Nightly isosorbide mononitrate ER, 60 mg, oral, Daily metoprolol succinate XL, 25 mg, oral, Daily Oxygen Therapy, , inhalation, Continuous pregabalin, 100 mg, oral, BID heparin, 0-28 Units/kg/hr, Last Rate: 16 Units/kg/hr (05/30/24 0611) Pertinent Investigations Hematology: Results from last 7 days Lab Units 05/30/24 0508 05/29/24 0523 WBC AUTO 10*3/uL 7.33 6.44 HEMOGLOBIN g/dL 14.1 14.3 HEMATOCRIT % 43.1 42.0 MCV fL 96.4 92.5 PLATELETS AUTO 10*3/uL 181 177 Chemistry: Results from last 7 days Lab Units 05/30/24 0508 05/28/24 1753 SODIUM mmol/L 135* 136 POTASSIUM mmol/L 4.1 3.6 CHLORIDE mmol/L 101 97* CO2 mmol/L 26 29 BUN mg/dL 22 20 CREATININE mg/dL 0.71 0.75 GLUCOSE mg/dL 105* 109* MAGNESIUM mg/dL 1.8* 2.1 CALCIUM mg/dL 9.1 9.8 No lab exists for component: AFIO2 , APHT , APCOT , APOT , ATCO2 , CK , ALB , IBILI Results from last 7 days Lab Units 05/28/24 205 POCT GLUCOSE mg/dL 145* Historical Values: (Includes values prior to this admission) Lab Results Component Value Date TSH 2.12 05/29/2024 HDL 56 05/28/2024 LDL 86 05/28/2024 Lab Results Component Value Date [id number] 394 05/29/2024 Imaging US neck Narrative: US NECK HISTORY: Left-sided neck growth. COMPARISON: None. Impression: Findings/impression: Patient states he does not feel a neck mass. There are small bilateral cervical lymph nodes nonenlarged measuring up to 5 mm in short axis. Otherwise no visible soft tissue mass or fluid collection. Electronically signed: Oli Conrad MD. ECG 12 lead Normal sinus rhythm Prolonged QT Abnormal ECG When compared with ECG of 28-MAY-2024 16:46, Vent. rate has increased BY 39 BPM T wave inversion no longer evident in Anterolateral leads QT has lengthened Discharge Planning Expected Discharge Disposition: Home or Self Care () Signed Sydney Mclean MD [facility] 05/30/2024 8:09 AM [facility] 05-29-2024 Note 05/29/24 0939 Admission Assessment Questions Verify insurance with patient Yes Do you understand medical disease or what brought you into the hospital? Yes Who is your current PCP? Romario Man MD Can I schedule a follow up appointment for you at the time of discharge? Yes Do you understand why you are taking your current medications? Yes Are you taking your medications as prescribed? Yes Did patient provide teach back? Yes Pharmacy Bedside Delivery Status Interested Does the patient have a director of casework assigned to them through their insurance? No Living Arrangement (Current/Prior to Hospitalization) Private residence (Lives alone) Does the patient have history of HHC or SNF? No Assistive Device Not applicable Patient's goal for discharge To return home Was patient reminded that goal for discharge is 11am? Yes Does the patient have transportation at discharge? No Type of Residence Private residence Is PT/OT appropriate? No Is PT/OT ordered? No Is SW consult appropriate? No Is SW consult ordered? No Do you understand the benefits of MyChart? No Were you able to send link and activate MyChart? No [facility] 05-29-2024 Note Hospital Medicine Daily Progress Note - 05/29/2024 9:15 AM; Room: [address] [place] [address] Admission: 05/28/2024 3:36 PM; Length of stay: 1 days THE HOSPITALIST TEAM PREFERS TO USE [employer] CHAT FOR COMMUNICATION 7AM-7PM. IF I DO NOT RESPOND WITHIN 15 MINUTES, PLEASE PAGE ME/CALL THROUGH THE FASHION DESIGNER. FROM 7PM-7AM, PLEASE PAGE [phone](COVR) Code Status: Full Code Barriers to Discharge: cath Expected Discharge Date: 06/01 Discharge Destination: home Overview Patient is seen for evaluation and management of unstable angina. Subjective Patient seen and examined. No chest pain, SOB. Does state legs are tingly without swelling, gets night sweats, no recent weight loss, facial and neck swelling, face redness. Gets hot easily. Says he kind of felt overall sick the other day. No abdominal pain, inguinal swelling. Physical Exam Visit Vitals BP 115/68 (BP Location: Left arm, Patient Position: Lying) Pulse 64 Temp 36.9 ???C (98.4 ???F) (Oral) Resp 15 Intake/Output Summary (Last 24 hours) at 05/29/2024 0915 Last data filed at 05/29/2024 0904 Gross per 24 hour Intake 763 ml Output 1075 ml Net -312 ml Estimated body mass index is 25.11 kg/m??? as calculated from the following: Height as of this encounter: 1.676 m (5' 6 ). Weight as of this encounter: 70.6 kg (155 lb 9.6 oz). Constitutional: NAD, AOx3 Eyes: EOMI, normal conjunctiva Neck: L sided submandibular growth non-tender growth, no difficulty swallowing CV: RRR, normal S1-S2, no murmurs Resp: CTA, no crackles or wheezing Abd: Soft, non-tender Extremities: No swelling, 2+ distal pulses Skin : Warm, dry Neuro: AOx3, no focal deficits Psych: Appropriate mood and affect Active Inpatient Problems Principal Problem: Unstable angina (CMS/HCC) Active Problems: Coronary artery disease involving y[place] coronary artery of yankton heart with unstable angina pectoris (CMS/HCC) Dyslipidemia Primary hypertension GERD (gastroesophageal reflux disease) Assessment and Plan Unstable angina CAD of [place] arteries of [place] heart Hypertension Bradycardia Hyperlipidemia -Trop negative, EKG TWI anterior leads -Recommended hospitalization for cardiac catheterization, timing TBD but likely Friday -Cardiology consulted -Continue telemetry -Continue heparin gtt -Continue lipitor 80 -Imdur 60 every day -Will verify if patient was on hydrochlorothiazide and lisinopril -ASA Hyperglycemia Lower extremity axonal polyneuropathy (EMG 2022) H/o lumbar laminectomy 1994 -Follow up A1c -Will be considering SSI if required otherwise avoid for repeating needle sticks -Check B12 -Resume home Lyrica 100 Facial erythema and swelling Neck swelling Night sweats -No recent weight loss or red flags that would strongly suggest lymphoma or other malignancy -Check US neck and TSH VTE Prophylaxis: IV heparin Scheduled Meds aspirin, 81 mg, oral, Daily atorvastatin, 80 mg, oral, Nightly isosorbide mononitrate ER, 60 mg, oral, Daily Oxygen Therapy, , inhalation, Continuous heparin, 0-28 Units/kg/hr, Last Rate: 15 Units/kg/hr (05/29/24 0904) Pertinent Investigations Hematology: Results from last 7 days Lab Units 05/29/24 0523 05/28/24 1753 WBC AUTO 10*3/uL 6.44 6.33 HEMOGLOBIN g/dL 14.3 15.4 HEMATOCRIT % 42.0 45.8 MCV fL 92.5 92.9 PLATELETS AUTO 10*3/uL 177 197 Chemistry: Results from last 7 days Lab Units 05/28/24 1753 SODIUM mmol/L 136 POTASSIUM mmol/L 3.6 CHLORIDE mmol/L 97* CO2 mmol/L 29 BUN mg/dL 20 CREATININE mg/dL 0.75 GLUCOSE mg/dL 109* MAGNESIUM mg/dL 2.1 CALCIUM mg/dL 9.8 No lab exists for component: AFIO2 , APHT , APCOT , APOT , ATCO2 , CK , ALB , IBILI Results from last 7 days Lab Units 05/28/242051 POCT GLUCOSE mg/dL 145* Historical Values: (Includes values prior to this admission) Lab Results Component Value Date HDL 56 05/28/2024 LDL 86 05/28/2024 No results found for: [id number] , IRON , TIBC , C3 , C4 , KAM , CANCA , ASO , PSA , CEA , CA125 , CA199 , AFP , CA153 Imaging ECG 12 lead Sinus bradycardia T wave abnormality, consider anterolateral ischemia Abnormal ECG When compared with ECG of 17-DEC-1995 08:05, Non-specific change in ST segment in Anterior leads T wave inversion now evident in Anterior leads Confirmed by Jonny CURRAN, DESTINEY Powell ([id number]) on 05/28/2024 6:07:38 PM Discharge Planning Expected Discharge Disposition: Home or Self Care () Signed Sydney Mclean MD Hospital Medicine 05/29/2024 9:15 AM [facility] 05-28-2024 Note Hospital Medicine History and Physical 05/28/2024 6:22 PM THE HOSPITALIST TEAM PREFERS TO USE [employer] CHAT FOR COMMUNICATION 7AM-7PM. IF I DO NOT RESPOND WITHIN 15 MINUTES, PLEASE PAGE ME/CALL THROUGH THE FASHION DESIGNER. FROM 7PM-7AM, PLEASE PAGE [phone](COVR) Chief Complaint Direct admission from [facility] with unstable angina History of Present Illness Noel Alva is an 63 y.o. male who came from home with past medical history of CAD s/p PCI, hypertension, hyperlipidemia, GERD presents a direct admission from [facility] with a chief complaint of chest pain. Patient reports that he was at a follow-up appointment with his transmission design engineer at the [place] [facility] clinic. Reports that he was recently hospitalized last week with similar symptoms. During his visit he was started on Ezitimibe and his amlodipine was stopped. His CTA chest was also negative for PE. He reports that the CP has continued and he has been using his nitroglycerin at home which has helped with the symptoms. I reports that the chest pain can happen at rest. He describes it as a squeezing sensation to the left side of his chest. He was told to report to the nearest ER and was transferred as a direct admission from [facility] to [facility] for cardiac catheterization in the a.m. with our cardiology team. During my examination, patient is resting bed comfortably. He reports that the chest pain comes and goes and is sharp in nature. He reports it is associated with diaphoresis, lightheadedness, dizziness and nausea. He also reports numbness and tingling to his bilateral upper extremities for the last several months. Labs were completed in house which are completely unremarkable. Review of System and Physical Exam Temp: [36.1 ???C (97 ???F)] 36.1 ???C (97 ???F) Heart Rate: [60-69] 60 Resp: [18] 18 BP: (113-118)/(80-83) 118/83 Physical Exam Vitals reviewed. Constitutional: Appearance: He is normal weight. HENT: Head: Normocephalic and atraumatic. Mouth/Throat: Mouth: Mucous membranes are moist. Pharynx: Oropharynx is clear. Eyes: Conjunctiva/sclera: Conjunctivae normal. Cardiovascular: Rate and Rhythm: Bradycardia present. Pulmonary: Effort: Pulmonary effort is normal. Breath sounds: Normal breath sounds. Abdominal: General: Abdomen is flat. Bowel sounds are normal. Palpations: Abdomen is soft. Musculoskeletal: General: Normal range of motion. Skin: General: Skin is warm and dry. Capillary Refill: Capillary refill takes less than 2 seconds. Neurological: General: No focal deficit present. Mental Status: He is alert and oriented to person, place, and time. Mental status is at baseline. Psychiatric: Mood and Affect: Mood normal. Review of Systems Constitutional: Positive for diaphoresis. Negative for appetite change, chills, fatigue and fever. Eyes: Negative for discharge. Respiratory: Negative for chest tightness and shortness of breath. Cardiovascular: Positive for chest pain. Negative for palpitations. Gastrointestinal: Positive for nausea. Negative for abdominal pain, constipation, diarrhea and vomiting. Genitourinary: Negative for difficulty urinating and dysuria. Musculoskeletal: Negative for arthralgias and back pain. Neurological: Positive for dizziness, light-headedness and numbness. Negative for tremors, seizures, syncope, facial asymmetry, speech difficulty and headaches. Psychiatric/Behavioral: Negative for agitation and behavioral problems. Problem List Patient Active Problem List Diagnosis Date Noted GERD (gastroesophageal reflux disease) 05/28/2024 Acute bronchitis due to other specified organisms 11/24/2023 Arthritis, gouty 11/24/2023 Chronic superficial gastritis without bleeding 11/24/2023 DDD (degenerative disc disease), lumbar 11/24/2023 Encounter for long-term current use of medication 11/24/2023 Iron deficiency anemia, unspecified 11/24/2023 Localized primary osteoarthritis of shoulder regions, bilateral 11/24/2023 Palpitations 11/24/2023 Vitamin D deficiency 11/24/2023 Osteoarthritis of sacroiliac joint ([facility]) 09/08/2023 Dyslipidemia 01/02/2023 S/P angioplasty with stent 01/02/2023 Atypical chest pain 12/30/2022 Viral syndrome 12/30/2022 Intermittent claudication ([facility]) 04/02/2021 Paresthesia of upper limb 04/02/2021 Peripheral vascular disease ([facility]) 04/02/2021 Primary hypertension 04/02/2021 Acute gout of right wrist 03/09/2021 S/P cardiac cath 01/12/2018 Coronary artery disease involving y[place] coronary artery of y[place] heart with unstable angina pectoris ([facility]) 01/10/2018 Mild intermittent asthma without complication 01/10/2018 Unstable angina ([facility]) 01/10/2018 Assessment and Plan Noel Alva is an 63 y.o. male who came from home with past medical history of CAD s/p PCI, hypertension, hyperlipidemia, GERD presents a direct admission from [place] (more content not included)... [facility] 05-28-2024 Note [place] [facility] Subjective Noel Alva is a 63 y.o. year old male patient here for a follow up ER visit from last week for chest pain. At last visit in February Ezitimibe 10mg was added and Amlodipine was discontinued. Pt has been using SLN for the chest pain. Patient Active Problem List Diagnosis Acute gout [...] Comment: moderate HPI Noel is seen in follow-up after recent ED visit for chest pain. He is a 63 yo man with history of CAD s/p stenting of the LAD in 2004, echocardiogram in 2010 was within normal limits. He underwent cath at [facility] 01/12/2018 due to chest pain [...] is currently taking atorvastatin 20 mg daily. At visit of 02/11/2024 I stopped amlodipine due to blood pressure being low. I also added ezetimibe for better control of his cholesterol levels. He is seen today as an urgent visit after recent admission to the emergency room with chest pain on 05/24/2024. He ruled out for myocardial infarction. CTA of the chest did not show any pulmonary embolism. His EKG did not show acute changes. He reports that he has been having recurrent episodes of chest pain recently requiring sublingual nitroglycerin. Chest pain can happen at rest. It is described as a squeezing sensation in the left side of the chest responding to sublingual nitroglycerin. Review of Systems Cardiovascular: Positive for chest pain, claudication, leg swelling and near-syncope. Respiratory: Positive for shortness of breath. Musculoskeletal: Positive for arthritis, back pain, joint pain and myalgias. Genitourinary: Positive for frequency. Neurological: Positive for dizziness, light-headedness and numbness. All other systems reviewed and are negative. Objective Visit Vitals BP 113/80 (BP Location: Left arm, Patient Position: Sitting) Pulse 69 Ht 1.676 m (5' 6 ) Wt 72.6 kg (160 lb) SpO2 93% BMI 25.82 kg/m??? Smoking Status Never BSA 1.84 m??? Physical Exam Constitutional: Appearance: He is [...] swelling. Cervical back: Neck supple. Right lower leg: [...] MCG (1999 [place]) tablet, Take 1 tablet b (more content not included)... [facility] 02-11-2024 Note [place] [facility] Subjective Noel Alva is a 63 [...] within normal limits. He underwent cath at [facility] 01/12/2018 due to chest pain [...] care or concern. documented in this encounter [facility] 09-18-2023 Note #Cardiac risk strati [...] surgery staff and driven home by family. [facility] [employer] [facility] 09-18-2023 Miscellaneous Notes Pt provided with discharge [...] this time POST OPERATIVE/PROCEDURE NOTE Noel Alva ([id number]) SURGEON Surgeon(s) and Role: * Shaheen Chappell MD - Primary PENSION FUND MANAGER Marques ANESTHESIOLOGIST FUR MIXER OPERATOR: Avinash Adams APRN-FUR MIXER OPERATOR Student Nurse Cash Posting Representative: Amanda Murphy SURGICAL STAFF Item Processor: Caryn Tineo RN Registered Nurse Underground Repairer: Angeline Mohan RN Scrub Person: Luiza Kvng PROCEDURE PERFORMED Procedure(s) (LRB): ARTHRODESIS SACROILIAC JOINT [...] 2023 12:13 PM documented in this encounter [facility] 09-18-2023 Nurse Note OT in with pt at this time [facility] 09-18-2023 History of Present illness Narrative 09/18/23 [...] and can help during recovery) Primary Language Algerian PRIOR LEVEL AM-PAC Activity Inpatient Short Form [...] LUE Assessment WFL Supine to Sit Mobility [place] Level: Supine->Sit contact guard assist Bed Features/Set-up: Supine->Sit Flat Skilled Rationale Verbal cues Skilled Intervention/Details: Supine->Sit pt reorted that he knew how to log roll but twisted to get up even with vcs and attempts to physically assist with proper technique Sit to Stand Transfer [place]ett Level: Sit->Stand contact guard assist Assistive Device: Sit->Stand 2 wheeled walker Skilled Rationale Hand placement;Verbal cues Skilled Intervention/Details: Sit->Stand pt pulling up on the walker with both hands- cues to push off Stand to Sit Transfer [place]ett Level: Stand->Sit stand-by assist Assistive Device: Stand->Sit [...] Dressing Intervention/Details assist with R sock Acute AMPA Acute [facility] Assessments Daily Activity Inpatient Short Form CURRENT [...] Low (problem-focused assessments w/limited treatment options) 09/18/23 6931 Surgery Information RN Approved Intervention as tolerated [...] bed mobility & transfers with supervision to NE. He was provided education review with log [...] Completed? yes Therapist Information License # [place] [id number] General Information Pertinent History of Current Problem The patient is a 62 year old male with sacroiliitis who underwent Right SI fixation. He was referred to physical therapy for post procedure education review & mobility. Jc Farmer, PT documented in this encounter [facility] 09-18-2023 Nurse Note Pt ambulating in [place] with PT without difficulty. [employer] [facility] 09-18-2023 Nurse Note PT in with pt at this time [employer] [facility] 09-18-2023 Nurse Note Discharge instructions provided, pt states understanding, including the sedentary activity as described, denies questions. [facility] 09-18-2023 Hospital Discharge instructions Venecia Rivera RN - 09/18/2023 1:[address] Chappell [facility] Post-Operative Spine Surgery Home Going Instructions [...] take percocet prescribed by . Proceed with Imnaha as prescribed by Dr. Chappell-when Imnaha is completed, you may resume percocet from [...] this carefully. Please attend family, community and anabaptist events as soon as possible after your [...] should be faxed. documented in this encounter [facility] 09-18-[address] Chappell in to see pt at this time [facility] 09-18-2023 Surgery Postoperative evaluation and management note POST OPERATIVE/PROCEDURE NOTE Noel Alva ([id number]) SURGEON Surgeon(s) and Role: * Shaheen Chappell MD - Primary PENSION FUND MANAGER Marques ANESTHESIOLOGIST FUR MIXER OPERATOR: Avinash Adams APRN-FUR MIXER OPERATOR Student Nurse Cash Posting Representative: Amanda Murphy SURGICAL STAFF Item Processor: Caryn Tineo RN Registered Nurse Underground Repairer: Angeline Mohan RN Scrub Person: Luiza Calderon [...] Chappell MD September 18, 2023 12:[address] [facility] 08-14-2023 History of Present illness Narrative [facility] NOTE Chief Complaint Patient [...] does not smoke. He is managed by [facility] in [place]. He is receiving Percocet and Lyrica. Lyrica [...] lids. There is no papilledema on fundoscopy. social worker assistant III, IV and : Extraocular movements full [...] being managed by his pain doctors in [place]. Noel was seen today for new patient. Diagnoses and all orders for this visit: Hereditary and idiopathic peripheral neuropathy - HEMOGLOBIN A1C; Future - B12 & FOLATE; Future - VITAMIN B6; Future - MILENA AND PE, SERUM; Future Hyperreflexia - MRI SPINE CERVICAL WITHOUT CONTRAST; Future - MRI SPINE THORACIC WITHOUT CONTRAST; Future Casey Mohr MD 08/14/2023 documented in this encounter [facility] 08-13-2023 Note Patient here for 1 y [...] his right hip with Dr. Chappell in [place]. Had labs in December 2022. Review of Systems Cardiovascular: Positive for chest pain, claudication and dyspnea on exertion. Musculoskeletal: Positive for arthritis, back pain, joint pain and myalgias. Neurological: Positive for numbness. All other systems reviewed and are negative. [facility] 08-13-2023 Note Cardiovascular Medic ine [place] [facility] SUBJECTIVE Chief Complaint Patient presents with [...] his right hip with Dr. Chappell in [place]. Had labs in December 2022. history of CAD s/p stenting of the LAD in 2004, echocardiogram in 2010 was within normal limits. He underwent cath at [facility] 01/12/2018 due to chest pain [...] ASHD (arteriosclerotic heart disease) Dyslipidemia Intermittent claudication ([facility]) Mild intermittent asthma without complication Paresthesia of upper limb Peripheral vascular disease ([facility]) Primary hypertension S/P angioplasty with stent S/P cardiac cath Unstable angina ([facility]) Viral syndrome Past Medical History: Diagnosis Date Coronary artery disease Hypertension PVD (peripheral vascular disease) ([facility]) Family History Problem Relation Name Age of [...] (more content not included)... [facility] 07-16-2023 History of Present [...] therapy, medications, SI belt, therapeutic injections. Inadequate terminal computer operator relief from therapeutic injection. 100% relief while [...] therapy, medications, SI belt, therapeutic injections. Inadequate terminal computer operator relief from therapeutic injection. 100% relief while [...] findings. Additions if any: Jennie Hernandez MD, [facility] Press Supervisor - [facility] documented in this encounter [facility] 07-16-2023 Instructions Eric Luu - 07/16/2023 1:40 [...] associated with corticosteroids. documented in this encounter [facility] 07-04-2023 History of Present illness Narrative Referred [...] Topical creams Physical therapy? Done recently at [facility] Xrays? Lumbar spine 12/2022 done at [place], bilateral hips and pelvis 01/08/23 MRI? 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 Done recently at [facility] Xrays? Lumbar spine 12/2022 done at [place], bilateral hips and pelvis 01/08/23 MRI? 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 Additions if any: Jennie Hernandez MD, CAQSM [facility] Press Supervisor - [facility] documented in this encounter [facility] 06-10-2023 History of Present illness Narrative Associated [...] Notes reviewed from, 05/19/23, 04/18/[address] Capps 04/15/23 Noel's left sacroiliac joint pain was [...] help treat the polyneuropathy found from Dr. Capps's EMG from 04/15/23. LARGE JOINT/BURSA INJECTION AND/OR [...] Notes reviewed from, 05/19/23, 04/18/[address] Capps 04/15/23 Noel's left sacroiliac joint pain was [...] help treat the polyneuropathy found from Dr. Capps's EMG from 04/15/23. LARGE JOINT/BURSA INJECTION AND/OR [...] findings. Additions if any: Jennie Hernandez MD, [facility] Press Supervisor - [facility] documented in this encounter [facility] 05-19-2023 History of Present illness Narrative Referred [...] Topical creams Physical therapy? Done recently at [facility] Xrays? Lumbar spine 12/2022 done at [place], bilateral hips and pelvis 01/08/23 MRI? 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 Done recently at [facility] Xrays? Lumbar spine 12/2022 done at [place], bilateral hips and pelvis 01/08/23 MRI? 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 Additions if any: Jennie Hernandez MD, [facility] Orthopedics and Sports Medicine Press Supervisor - [facility] documented in this encounter [facility] 04-18-2023 History of Present illness Narrative Patient [...] Additions if any: Jennie Hernandez MD, CAM [facility] Press Supervisor - [facility] documented in this encounter [facility] 04-18-2023 Instructions Eric Luu - 04/18/2023 12:40 [...] associated with corticosteroids. 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 Noel may call the office with any questions or concerns. 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 Noel may call the office with any questions or concerns. Referrals:None Medications prescribed today: None Follow up plan: Sports US guided left sacroiliac joint injection with CARPENTERS HELPER Complexity of problem(s): Mild Risk of morbidity [...] Additions if any: Jennie Hernandez MD, CAM [facility] Press Supervisor - [facility] documented in this encounter [facility] 12-31-2022 History of Present illness Narrative Associate Professor Of Literacy reviewed discharge instructions with patient. No new [...] home following this hospitalization. Patient resides in [place] alone. He uses no DME and has no outside resources or services currently in place. 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 He is independent with all activities of [...] Priscilla, as his decision maker if needed. NATURAL SCIENCE CURATOR to monitor and assist with any further [...] Well developed, well nourished with no malnutrition Absorption Operator consult initiated Hospital Prophylaxis: DVT: Lovenox Stress [...] SATISFY MIPS PERFORMANCE] Cece Villalobos APRN - TIMBER MILL WORKER , OR ASSISTANT, TURPENTINE FARMER-C Hospitalist Medicine 12/31/2022, 9:21 AM Associated attestation - Kendell Alvarado MD - 12/31/2022 5:52 PM EDT Images from the original note were not included. [address], [address] Attestation Patient: Noel Alva Date of Admission: 12/30/2022 6:09 AM Hospital Day # 1 Date of Evaluation: 12/31/2022 I personally evaluated and examined the patient [id number] in conjunction with the PA/TURPENTINE FARMER and agree with the management and dispostition of the patient. Please see the PA/TURPENTINE FARMER's note for full details. My argueta findings [...] with the plan as outlined in the TURPENTINE FARMER/PA's note Disposition: Discharge plan is pending Please note that this chart was generated using voice recognition Excel[employer] dictation software. Although every effort was made to ensure the accuracy of this automated entry examiner, some errors in entry examiner may have occurred. Kendell Alvarado MD 12/31/2022 5:52 PM Associate Professor Of Literacy to bedside to complete morning assessment. Upon entry to room, pt sitting up in bed, respirations even and unlabored while on room air. Vitals obtained and assessment completed, see flow sheet for details. Dr Alvarado at bedside, reviewed pts blood pressure medications with him, okay to hold Norvasc and Metoprolol this morning. Pt denies needs from report writer at this time. Call light in reach. Care ongoing. Noted report writer had not urinated yet this shift. [...] bedside table are within reach, will monitor. Associate Professor Of Literacy offered meds to bed but patient declined. Echocardiogram/Doppler done at bedside. Instructed on policies and procedure. Spoke to cristian Zhao CNP for report writer to correct home medications. Okay to add: protonix, iron, Mobic, Lisinopril, and Amlodipine. Cardiology consult called to office. When reviewing home medications it was noted that there were some differences in doses of medications. Called [facility] and clarified medications. Will update [...] reach. Care ongoing. documented in this encounter [facility] [employer] Phone: 12-31-2022 Hospital Discharge instructions Ana Gutierres [...] low fat documented in this encounter [facility] [employer] Work Phone: 12-31-2022 Hospital course Narrative Discharge [...] sharp in the left chest. No radiation. [place] burning sensation when the chest pain subsided. 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 Consultants: Dr. Mohr, cardiology Procedures: Stress Test [...] (Neck pain) Vitamin D3 50 MCG (1999 NV) Tabs STOP taking these medications dicyclomine 10 MG capsule Commonly known as: Bentyl Where to Get Your Medications These medications were sent to [facility] [address] [place], [place] [address] [facility] 18 - P [phone] F [phone] [address] atorvastatin 20 MG tablet Patient Instructions: Activity: activity as tolerated Diet: cardiac diet Wound Care: none needed Other: None Disposition: Discharge to Home Follow up: Patient will be followed by Romario Man MD in 1-2 weeks CORE MEASURES on Discharge (if applicable) BRITTNY/ARB in CHF: NA Statin in NE: NA ASA in NE: NA Statin in CVA: NA Antiplatelet in CVA: NA Total time spent on discharge services: 40 minutes Including the following activities: Evaluation and Management of patient Discussion with patient and/or surrogate about current care plan Coordination with Case Management and/or Slot Editor Coordination of care with Consultants (if applicable) Coordination of care with Receiving Facility Physician (if applicable) Completion of DME forms (if applicable) Preparation of Discharge Summary Preparation of Medication Reconciliation Preparation of Discharge Prescriptions Signed: Cece Villalobos APRN - SREEDHAR, OR ASSISTANT, TURPENTINE FARMER-C 12/31/2022, 5:06 PM Associated attestation - Kendell Alvarado MD - 12/31/2022 5:53 PM EDT Images from the original note were not included. [address], [address] Attestation Patient: Noel Alva Date of Admission: 12/30/2022 6:09 AM Hospital Day # 1 Date of Evaluation: 12/31/2022 I personally evaluated and examined the patient [id number] in conjunction with the PA/TURPENTINE FARMER and agree with the management and dispostition of the patient. Please see the PA/TURPENTINE FARMER's note for full details. My argueta findings [...] care plan Coordination with Case Management and/or Slot Editor Coordination of care with Consultants (if applicable) [...] this chart was generated using voice recognition Excel[employer] dictation software. Although every effort was made to ensure the accuracy of this automated entry examiner, some errors in entry examiner may have occurred. Kendell lAvarado MD 12/31/2022 5:53 PM documented in this encounter [facility] [employer] Work Phone: 11-14-2022 Note CONSULTATION CONSULTATION [...] falls or foot drop. 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 He did have to take two days off of work last week, which his very unlike him. He had trouble getting out of bed due to increased pain. He is prescribed Imnaha 5/325 t.i.d., but due to pain, patient [...] radiculopathy, lumbar spondylosis. PLAN: Patient brought his Imnaha in today for a pill count. We will change his medication to Percocet 5/325 t.i.d. and increase his Lyrica to 100 mg b.i.d. I did recommend a Neurosurgery referral, which the patient does agree to. We will send a referral to Dr. Shaheen Chappell at [facility] in [place]. We will continue to manage his medications at this time, and we will see him in the clinic in three months. Patient agrees with this plan. [facility] 10-16-2022 Note CONSULTATION CONSULTATION DATE: 10/16/2022 [...] use a cane. His current medications include Imnaha 5/325 b.i.d. and Aleve p.r.n. He has [...] next three days, we will increase his Imnaha 5/325 to t.i.d. We will start also [...] Patient does agree with this plan. [facility] 08-22-2022 Note CONSULTATION CONSULTATION DATE: 08/22/2022 [...] weakness. Medications include Mobic 15 mg daily, Imnaha 5/325 b.i.d. and tizanidine 4 mg q.h.s. [...] a menthol rub. We will maintain his Imnaha 5/325 b.i.d. and he was instructed to use Voltaren to hi right CMC joint. Patient agrees with the plan of care and will be followed up in the office thereafter. [facility] 06-26-2022 Note OPERATIVE NOTE OPERATION DATE: [...] good condition. CC: Romario Man M.D. [facility] 06-01-2022 Note Chief Complaint consultation for [...] BID, # 90 tab(s), Refills(s) 3, Pharmacy: [facility] [id number], 167.6, cm, 05/31/22 14:31:00 EDT, Height/Length Dosing, 72.8, kg, 05/31/22 14:31:00 EDT, Weight Dosing 3. Hematemesis (K92.0: Hematemesis) see # 1 Ordered: pantoprazole, 40 mg = 1 tab(s), Oral, BID, # 90 tab(s), Refills(s) 3, Pharmacy: [id number], 167.6, cm, 05/31/22 14:31:00 EDT, Height/Length Dosing, 72.8, kg, 05/31/22 14:31:00 EDT, Weight Dosing Follow-up No qualifying data available Problem List/Past Medical History Ongoing Asthma BMI 25.0-25.9,adult CAD in [place] artery DDD (degenerative disc disease), lumbar Depression [...] 325 mg or (more content not included)... [facility] Comment on above: Result Comment: Elec [...] procedure well with no overt complications. [facility] 05-30-2022 Note CONSULTATION CONSULTATION DATE: 05/30/2022 [...] Medications include Mobic 15 mg daily and Imnaha 5/325 b.i.d. He does take tizanidine 4 [...] indicated. Patient agrees with this plan. [facility] 04-03-2022 Note CONSULTATION CONSULTATION DATE: 04/03/2022 [...] and his workup at the ER in [place] warranted no findings. Today, he reports consistent [...] mg q.h.s., Mobic 15 mg daily and Imnaha 5/325 b.i.d. p.r.n. Activities such as standing, [...] clinic and heading straight to the lab. [facility] Signed and Approved by: JULIANE MASSEY . 04/04/2022 13:38:00 [facility] 02-21-2022 Note CONSULTATION CONSULTATION DATE: 02/21/2022 [...] Medications include Mobic 15 mg q. day, Imnaha 5/325 b.i.d. and tizanidine 4 mg q.h.s., [...] cervical neuritis. PLAN: We will refill his Imnaha today 5/325 b.i.d., p.r.n. We will move [...] followed up in the office post procedure. [facility] Signed and Approved by: JULIANE MASSEY . 02/25/2022 15:08:00 [facility] Evaluation + Plan note No data available for this section General Surgery [place] Evaluation note Diagnosis Acute gout of right wrist, unspecified cause- Primary documented in this encounter [employer] Phone: evaluation note* Diagnosis Chronic fatigue Other malaise and fatigue [facility] Work Phone: evaluation note* Diagnosis Atypical chest pain- Primary Other chest pain Chest pain, unspecified type Viral syndrome Unspecified viral infection, in conditions classified elsewhere and of unspecified site documented in this encounter [facility] [employer] Phone: evaluation note* Diagnosis Osteoarthritis of left sacroiliac joint- Primary Lumbar spondylosis Lumbosacral spondylosis without myelopathy Lower extremity numbness Disturbance of skin sensation [facility] Diagnosis Osteoarthritis of left sacroiliac joint documented in [facility] encounter [facility]* Diagnosis Osteoarthritis of left sacroiliac joint- Primary Osteoarthritis of left sacroiliac joint documented in [facility] encounter [facility]* Diagnosis Osteoarthritis of left sacroiliac joint- Primary Pain of left sacroiliac joint Disorders of sacrum Lumbar spondylosis Lumbosacral spondylosis without myelopathy documented [facility] encounter [facility]* Diagnosis Osteoarthritis of right sacroiliac joint- Primary Pain of right sacroiliac joint Disorders of sacrum Polyneuropathy Unspecified hereditary and idiopathic peripheral neuropathy Lower extremity numbness Disturbance of skin sensation Osteoarthritis of left sacroiliac joint Pain of left sacroiliac joint Disorders of sacrum Lumbar spondylosis Lumbosacral spondylosis without myelopathy documented in this encounter [facility]* Diagnosis Osteoarthritis of both sacroiliac joints- Primary Pain of both sacroiliac joints Disorders of sacrum Polyneuropathy Unspecified hereditary and idiopathic peripheral neuropathy documented [facility]* Diagnosis Osteoarthritis of both sacroiliac joints Pain of both sacroiliac joints Disorders of sacrum documented in this encounter [facility]* Diagnosis Osteoarthritis of both sacroiliac joints- Primary Pain of both sacroiliac joints Disorders of sacrum Osteoarthritis of both sacroiliac joints Pain of both sacroiliac joints Disorders of sacrum documented [facility]* Diagnosis Hereditary and idiopathic peripheral neuropathy- Primary Unspecified hereditary and idiopathic peripheral neuropathy Hyperreflexia Abnormal reflex documented [facility]* Diagnosis Sacroiliitis- Primary Sacroiliitis, not elsewhere classified [facility]* Diagnosis Viral illness- Primary Unspecified viral infection, in conditions classified elsewhere and of unspecified site documented in this encounter [facility]* Diagnosis Hereditary and idiopathic peripheral neuropathy- Primary Unspecified hereditary and idiopathic peripheral neuropathy Hyperreflexia Abnormal reflex [facility]* Attachments The following attachments cannot be sent through Care Everywhere. * Gout (Algerian) [facility] Discharge instructions No data available for this section General Surgery [facility] Progress note No data available for this section General Surgery [facility] Reason for referral (narrative)* Consultation (Routine) - Auth Not Needed Specialty Diagnoses / Procedures Referred By Anni t Referred To Contact Neurology Diagnoses Polyneuropathy Jennie Hernandez MD [address] [place] [id number] Casey Mohr MD [address] [place] [id number] Referral ID Status Reason Start Date Expiration Date V isits Requested Visits Authorized [id number] Auth Not Needed 06/10/2023 07/04/2024 1 1 * Radiology (Routine) - New Request Specialty Diagnoses / Procedures Referred By Contac t Referred To Contact Diagnoses Osteoarthritis of left sacroiliac joint Pain of left sacroiliac joint Procedures US IMAGING FOR ORTHO Jennie Hernandez MD [address] [place] [address] Referral ID Status Reason Start Date Expiration Date V isits Requested Visits Authorized [id number] New Request 06/10/2023 07/04/2024 1 1 [facility] Consultation (Routine) - Schedule Outgoing - Transfer of Care Specialty Diagnoses / Procedures Referred By Contac t Referred To Contact Neurologic Surgery Diagnoses Osteoarthritis of both sacroiliac joints Pain of both sacroiliac joints Jennie Hernandez MD [address] [place] [address] Referral ID Status Reason Start Date Expiration Date V isits Requested Visits Authorized [id number] Schedule Outgoing - Transfer of Care 07/16/2023 08/09/2024 1 1 * Radiology (Routine) - New Request Specialty Diagnoses / Procedures Referred By Contac t Referred To Contact Diagnoses Osteoarthritis of both sacroiliac joints Pain of both sacroiliac joints Procedures US IMAGING FOR ORTHO Jennie Hernandez MD [address] [place] [address], [place] [address] Referral ID Status Reason Start Date Expiration Date V isits Requested Visits Authorized [id number] New Request 07/16/2023 08/09/2024 1 1 [facility] (Routine) Specialty Diagnoses / Procedures Referred By Anni t Referred To Contact [facility] [address] [place] [address] Referral ID Status Reason Start Date Expiration Date Visits Re quested Visits Authorized [facility] Summary Purpose Family History No Family History Records FoundNo Family History Records FoundNo Family History Records FoundNo Family History Records FoundNo Family History Records FoundNo Family History Records FoundNo Family History Records FoundNo Family History Records FoundNo Family History Records FoundNo Family History Records FoundNo Family History Records Found Advance Directives No Advanced Directives Records FoundDocuments on File Type Date Recorded Patient Consultant Rn Expl anation Advance Directives and Living Will Power of Digital Developer Latest Code Status on File Code Status Date Activated Date Inactivated Comments Full Code 01/12/2018 8:34 PM 01/13/2018 3:53 PM Full Code 01/10/2018 3:36 PM 01/12/2018 8:34 PM Documents on File Type Date Recorded Patient Consultant Rn Expl anation ACP-Advance Directive ACP-Power of Digital Developer Documents on File Type Date Recorded Patient Consultant Rn Expl anation ACP-Advance Directive ACP-Power of Digital Developer Latest Code Status on File Code Status [...] Agents on File Name Relationship Healthcare Agent Christalmo p Communication Priscilla Alva Child Primary Decision Maker Discharge Instructions * Attachments The following attachments cannot be sent through Care Everywhere. * Chest Pain (Algerian) * Back Pain (Algerian) * Shoulder Pain (Algerian) documented in this encounter* Instructions* Justice Sh[place] [...] sent through Care Everywhere. * Neck Spasm (Algerian) documented in this encounter* Attachments The following attachments cannot be sent through Care Everywhere. * Abdominal Pain (Algerian) * Acid-Reducing Medicines: General Info (Algerian) documented in this encounter Assessments Diagnosis Chronic [...] diseases (HCC) Procedures VL DUP CAROTID BILATERAL ZulmaLisa neal, OR ASSISTANT - TIMBER MILL WORKER [address] [place] [address] Specialty Diagnoses / Procedures Referred By Contac t Referred To Contact Diagnoses Lower extremity numbness Procedures EMG & NERVE CONDUCTION Jennie Hernandez MD [address] [place] [address] Jw Capps MD [address] [place] [id number] Referral ID Status Reason Start Date Expiration Date V isits Requested Visits Authorized [id number] Pending Review 02/25/2023 03/21/2024 1 1 Specialty Diagnoses / Procedures Referred By Contac t Referred To Contact Diagnoses Osteoarthritis of left sacroiliac joint Procedures US IMAGING FOR ORTHO Jennie Hernandez MD [address] [place] [address] Referral ID Status Reason Start Date Expiration Date V isits Requested Visits Authorized [id number] New Request 04/18/2023 05/12/2024 1 1 Specialty Diagnoses / Procedures Referred By Contac t Referred To Contact Diagnoses Osteoarthritis of both sacroiliac joints Pain of both sacroiliac joints Procedures US IMAGING FOR ORTHO Jennie Hernandez MD [address] [place] [address] Referral ID Status Reason Start Date Expiration Date V isits Requested Visits Authorized [id number] New Request 07/16/2023 08/09/2024 1 1 Specialty Diagnoses / Procedures Referred By Contac t Referred To Contact Diagnoses Hyperreflexia Procedures MRI SPINE THORACIC WITHOUT CONTRAST [place] MRI, DORSAL SPINE Casey Mohr MD [address] [place] [address] Referral ID Status Reason Start Date Expiration Date V isits Requested Visits Authorized [id number] New Request 08/14/2023 09/07/2024 1 1 Specialty Diagnoses / Procedures Referred By Contac t Referred To Contact Diagnoses Hyperreflexia Procedures MRI SPINE CERVICAL WITHOUT CONTRAST NV MRI, CERV SPINE Casey Mohr MD [address] [place] [address] Referral ID Status Reason Start Date Expiration Date V isits Requested Visits Authorized [id number] New Request 08/14/2023 09/07/2024 1 1 Specialty Diagnoses / Procedures Referred By Contac t Referred To Contact Diagnoses Hyperreflexia Procedures MRI SPINE THORACIC WITHOUT CONTRAST CHG MRI SPINAL CANAL THORACIC W/O CONTRAST Casey Truong MD [address] [place], [place] [phone] Referral ID Status Reason Start Date Expiration Date V isits Requested Visits Authorized [id number] New Request 06/24/2024 07/19/2025 1 1 Specialty Diagnoses / Procedures Referred By Contac t Referred To Contact Diagnoses Hyperreflexia Procedures MRI SPINE CERVICAL WITHOUT CONTRAST CHG MRI SPINAL CANAL CERVICAL W/O CONTRAST Casey Truong MD [address] [place] [id number] Referral ID Status Reason Start Date Expiration Date V isits Requested Visits Authorized [id number] New Request 06/24/2024 07/19/2025 1 1 Additional Source Comments (unrecognized sect ion and content) No Status Records FoundNo Status Records FoundNo Status Records FoundNo Status Records FoundNo Status Records FoundNo Status Records FoundNo Status Records FoundNo Status Records FoundNo Status Records FoundNo Status Records FoundNo Status Records Found INFORMATION SOURCE (unrecogn ized section and content) DATE CREATED AUTHOR 03/26/2018 [facility] DATE CREATED AUTHOR AUTHOR'S ORGANIZ ATION 03/26/2018 [facility] DATE CREATED AUTHOR AUTHOR'S ORGANIZ ATION 07/11/2022 [facility] DATE CREATED AUTHOR AUTHOR'S ORGANIZ ATION 01/18/2023 [facility] DATE CREATED AUTHOR AUTHOR'S ORGANIZ ATION 07/18/2023 [facility] DATE CREATED AUTHOR AUTHOR'S ORGANIZ ATION 09/22/2023 [facility] DATE CREATED AUTHOR AUTHOR'S ORGANIZ ATION 10/11/2023 [facility] DATE CREATED AUTHOR AUTHOR'S ORGANIZ ATION 11/25/2023 [facility] DATE CREATED AUTHOR AUTHOR'S ORGANIZ ATION 03/25/2024 [facility] DATE CREATED AUTHOR AUTHOR'S ORGANIZ ATION 06/18/2024 [facility] DATE CREATED AUTHOR AUTHOR'S ORGANIZ ATION 06/26/2024 [facility] Reason for Visit (unrecogniz ed section and content) Reason Comments Shoulder Pain ongoing for past wee k worse today Neck Pain worse today Chest Pain ongoing for one week worse today Reason Comments Neck Pain burning/shooting kalen n, BL posterior neck. REcent nerve procedure with pain management. Out of [place] for 2 days. Reason Comments Flank Pain pt staes bilateral f alnk pain, onset Friday Status Reason Specialty Diagnoses / Procedures Referred By Contact Referred To Contact Authorized Stress Lab Diagnoses Atherosclerotic heart disease of [place] coronary artery without angina pectoris Procedures HC NM LEXISCAN STRESS W NUC HC NM SEST. REST STRESS MULT [id number] NM STRESS Lisa Maya, OR ASSISTANT - TIMBER MILL WORKER [address] [place] [address] [facility] Stress Lab [address] [place], [place] [id number] Status Reason Specialty Diagnoses / Procedures Referre d By Contact Referred To Contact Closed Vascular Lab Diagnoses Other specified peripheral vascular diseases Procedures HC EXTRACRANIAL BILAT STUDY 02458 US CAROTIDS Lisa Maya, OR ASSISTANT - TIMBER MILL WORKER [address] [place] [address] [facility] Vascular Lab [address] [place] [id number] Status Reason Specialty Diagnoses / Procedures Referred By Contact Referred To Contact Closed Stress Lab Diagnoses Atherosclerotic heart disease of [place] coronary artery without angina pectoris Procedures HC NM LEXISCAN STRESS W NUC HC NM SEST. REST STRESS MULT 15027 NM STRESS Lisa Maya, OR ASSISTANT - TIMBER MILL WORKER [address] [place] [address] [facility] [address] [place] [address] Reason Comments Wrist Pain Right, onset last [...] pain, unspecified type Kendell Alvarado MD [address] [place] [address] [facility] [address] [place] [address] Referral ID Status Reason Start Date Expiration Date Visits Re quested Visits Authorized [id number] 1 1 Reason Comments Pain New Patient Specialty Diagnoses / Procedures Referred By Contac t Referred To Contact Diagnoses Osteoarthritis of left sacroiliac joint Procedures US IMAGING FOR ORTHO Jennie Hernandez MD [address] [place] [address] Referral ID Status Reason Start Date Expiration Date V isits Requested Visits Authorized [id number] New Request 04/18/2023 05/12/2024 1 1 Reason Comments Pain Joint Injection Reason Comments Pain Follow-up Reason Comments Pain Specialty Diagnoses / Procedures Referred By Contac t Referred To Contact Diagnoses Osteoarthritis of both sacroiliac joints Pain of both sacroiliac joints Procedures US IMAGING FOR ORTHO Jennie Hernandez MD [address] [place] [address] [place] [address] Referral ID Status Reason Start Date Expiration Date V isits Requested Visits Authorized [id number] New Request 07/16/2023 08/09/2024 1 1 Reason Comments Pain Right Sacroiliac laurent nt Follow-up Right Sacroiliac laurent nt Joint Injection Right Sacroiliac laurent nt Reason Comments New Patient bilateral lower limb polyneuropathy Specialty Diagnoses / Procedures Referred By Anni antonio Referred To Contact Neurology Diagnoses Polyneuropathy Jennie Hernandez MD [address] [facility] [place] [address] [place] [address] Casey Mohr MD [address] [place] [address] Referral ID Status Reason Start Date Expiration Date Visits Re quested Visits Authorized [id number] Closed 06/10/2023 07/04/2024 1 1 Specialty Diagnoses / Procedures Referred By Anni antonio Referred To Contact Diagnoses Sacroiliitis Sacroiliitis [M46.1] Procedures NV ARTHRODESIS SACROILIAC JOINT PERCUTANEOUS CHG FLUOROSCOPY UP TO 1 HOUR PHYSICIAN/QHP TIME NV IMPLANT/INSERT DEVICE, NOC PROSTHETIC IMPLANT NOS ARTHRODESIS SACROILIAC JOINT MINIMALLY INVASIVE W/ TRANSFIXING DEVICE FLUOROSCOPY IN OR Shaheen Chappell MD [address] [place] [address] Referral ID Status Reason Start Date Expiration Date Visits Re quested Visits Authorized [id number] 09/11/2023 1 1 Reason Comments Influenza Symptoms started yes terday with cough, no n/v. Reason Comments Follow-up Neuropathy Ordered Prescriptions (unrec ognized section and content) [...] mg from all sources in 24 hours. 6242 (Given - Provider: Monalisa Hudson RN) 0820 (Given - Provider: Corrie Ibarra RN - [...] Order 09/16/2023 09/17/2023 09/18/2023 BUPivacaine-EPINEPHrine (MARCAINE;SENSORCAINE-MPF) 0.5% -1:[id number] injection (CANCELED) NEEDED, Starting on Debbie 09/18/23 at 1144, Until Debbie 09/18/23 at 1228, Intra-op/Intra-Proc 1144 (Given - Provid er: Shaheen Chappell MD) ceFAZolin (ANCEF) 2 g in dextrose 100 mL premix IVPB (COMPLETED) 2 g, Intravenous, Administer over 30 Minutes, HOME SCHOOL LIAISON OFFICER TO PROCEDURE, 1 dose, Starting on Debbie [...] spasm, Post-op/Post-Proc 1334 (Given - Provid er: Vneecia Rivera RN) mineral oil light 100 % [...] Care Teams (unrecognized sec tion and content) Mule Rider Relationship Specialty Start Date End Date Romario Man MD [address] [place] [address] PCP - General Family Medicine 06/14/19 Mule Rider Relationship Specialty Start Date End Date Romario Man MD [address] [place] [address] PCP - General Family Medicine 06/14/19 Mule Rider Relationship Specialty Start Date End Date Romario Man MD [address] [place] [address] PCP - General Family Medicine 04/18/23 Mule Rider Relationship Specialty Start Date End Date Romario Man MD [address] [place] [address] PCP - General Family Medicine 04/18/23 Mule Rider Relationship Specialty Start Date End Date Romario Man MD [address] [place] [address] PCP - General Family Medicine 04/18/23 Mule Rider Relationship Specialty Start Date End Date Romario Man MD [address] [place] [address] PCP - General Family Medicine 04/18/23 Mule Rider Relationship Specialty Start Date End Date Romario Man MD [address] [place] [address] PCP - General Family Medicine 04/18/23 Mule Rider Relationship Specialty Start Date End Date Romario Man MD [address] [place] [address] PCP - General Family Medicine 04/18/23 Mule Rider Relationship Specialty Start Date End Date Romario Man MD [address] [place] [address] PCP - General Family Medicine 04/18/23 Mule Rider Relationship Specialty Start Date End Date Romario Man MD [address] [place] [address] PCP - [facility] 04/18/23 Mule Rider Relationship Specialty Start Date End Date Romario Man MD [address] [place] [address] PCP - General Family Medicine 06/14/19 Mule Rider Relationship Specialty Start Date End Date Romario Man MD [address] [place] [address] PCP - [facility] 04/18/23 FOR RECORDS PERTAINING TO PATIENTS WHO ARE [...] BE BASED ON THE PRIMARY CLINICAL RECORDS. [facility] [place] [facility]. provides no warranty or guarantee of the accuracy or completeness of information in this document.
--- NOTE | 2024-06-30 14:30 | P.CN_ITS ---
Consult Note: HPI Data of Consult Patient: known to practice within the last 3 years Requesting Physician: Isabelle Maria NP Primary Care Provider: Romario Bronson MD Consult Narrative Reason for consult: f/u Narrative: Noel Alva a pleasant 63 year old male presents for evaluation of chronic bilateral shoulders, hand, knee, and low back pain. Today patient rating pain 6/10, increasing to 8/10 with activity and depending on the weather due to OA, generalized and in bilateral shoulders and low back hip buttock pain. JOSE EDUARDO 51% today. Patient has returned to work and has noticed increase in pain and decline in functional ability. Unfortunately suprascapular/axillary RFAs denied by insurance. Patient no longer has PCP coverage, was dismissed due to behavior. Would like us to take over his tizanidine 4mg HS and mobic 15mg daily. patient would like to discuss lumbar MBBs and RFA as he has previously benefitted. cc:: CC: Isabelle Maria NP Review of Systems ROS Status of ROS 10 or more systems reviewed and unremark able except as noted in history and below Musculoskeletal Reports: back pain, neck pain and joint pain PFSH PFS Medical History (Updated 05/28/24 @ 10:20 by Remedios Carlin MD) HLD (hyperlipidemia) ?E78.5 - Hyperlipidemia, unspecified (ICD-10) CAD (coronary artery disease) ?I25.10 - Atherosclerotic heart disease of [place] coronary artery without angina pectoris (ICD-10) Bilateral shoulder pain ?M25.511 - Pain in right shoulder (ICD-10) ?M25.512 - Pain in left shoulder (ICD-10) Aortic atherosclerosis ?I70.0 - Atherosclerosis of aorta (ICD-10) Hypertension ?I10 - Essential (primary) hypertension (ICD-10) Numbness and tingling ?R20.0 - Anesthesia of skin (ICD-10) ?R20.2 - Paresthesia of skin (ICD-10) Back pain ?M54.9 - Dorsalgia, unspecified (ICD-10) Neck pain ?M54.2 - Cervicalgia (ICD-10) Anemia ?D64.9 - Anemia, unspecified (ICD-10) Asthma ?J45.909 - Unspecified asthma, uncomplicated (ICD-10) Surgical History H/O heart artery stent ?Z95.5 - Presence of coronary angioplasty implant and graft (ICD-10) H/O laminectomy ?Z98.890 - Other specified postprocedural states (ICD-10) Family History Father Family history of CHF (congestive heart failure) Family history of myocardial infarction Mother Family history of CHF (congestive heart failure) Social History Within the past year, how often did you have a drink containing alcohol: 4 or more times a week Within the past year, how many standard drinks containing alcohol did you have on a typical day: 1 or 2 Within the past year, how often did you have six or more drinks on one occasion: never Total score: 0 Score interpretation: Questions 2 and 3 are 0. It can be assumed that the patient's drinking is below the recommended limits. However, please confirm the accuracy of the patient's alcohol intake over the last few months. 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 Highest level of school completed/degree received: high school graduate In a typical week, how many times do you talk on the telephone with family, friends, or neighbors: 3 or more times per week How often do you get together with friends or relatives: 3 or more times per week How often do you attend protestant or christian services: never Do you belong to any clubs or organizations such as protestant groups unions, fraternal or athletic groups, or school groups: no Little interest or pleasure in doing things: not at all Feeling down, depressed, or hopeless: not at all Feel stressed/tense/nervous/anxious/difficulty sleeping: not at all Gender Identity: male Meds Home Medications and Allergies Home Medications ?Medication ?Instructions ?Recorded ?Confirmed ?Type albuterol sulfate 90 mcg/actuation 1 inh inhalation Q6H 03/14/23 05/24/24 History aerosol inhaler (ProAir HFA) aspirin 81 mg tablet,delayed 81 mg PO DAILY 03/14/23 05/24/24 History release atorvastatin 40 mg tablet 40 mg PO DAILY 03/14/23 05/24/24 History cholecalciferol (vitamin D3) 50 50 mcg PO DAILY 03/14/23 05/24/24 History mcg (2,000 unit) capsule ferrous sulfate 325 mg (65 mg 325 mg PO BID 03/14/23 05/24/24 History iron) tablet (Niels-Time) lisinopril 40 mg tablet 40 mg PO DAILY 03/14/23 05/24/24 History meloxicam 15 mg tablet 15 mg PO DAILY 03/14/23 05/24/24 History nitroglycerin 0.4 mg sublingual 0.4 mg sublingual Q5M PRN chest 03/14/23 05/24/24 History tablet (Nitrostat) pain pantoprazole 40 mg tablet,delayed 40 mg PO DAILY 03/14/23 05/24/24 History release (Protonix) pregabalin 100 mg capsule (Lyrica) 100 mg PO BID 03/14/23 05/24/24 History oxycodone-acetaminophen 5 mg-325 1 tab PO TID PRN pain #90 tabs 11/10/23 05/24/24 Rx mg tablet (Percocet) ezetimibe 10 mg tablet 10 mg PO DAILY 05/24/24 05/24/24 History hydrochlorothiazide 25 mg tablet 25 mg PO DAILY #30 tabs 05/24/24 Rx isosorbide mononitrate 60 mg 60 mg PO DAILY 05/24/24 05/24/24 History tablet,extended release 24 hr metoprolol succinate 100 mg 100 mg PO DAILY 05/24/24 05/24/24 History tablet,extended release 24 hr (Toprol XL) oxycodone-acetaminophen 5 mg-325 1 tab PO TID PRN pain #90 tabs 06/17/24 Rx mg tablet (Percocet) Allergies Allergy/AdvReac Type Severity Reaction Status Date / Time No Known Drug Allergies Allergy Verified 05/28/24 10:22 Exam Constitutional Documenting provider has reviewed patient's vital signs: yes Common normals: no apparent distress, oriented x3, healthy appearing, alert and well nourished General appearance: cooperative HENMT Common normals: normocephalic, hearing grossly normal bilaterally and moist oral mucous membranes Head and scalp: normocephalic Eye Common normals: PERRL Pupil: PERRL Neck & C-Spine Common normals: full ROM General: normal visual inspection Chest Common normals: inspection of chest normal Respiratory Common normals: normal respiratory effort, no retractions and no use of accessory muscles Back & Pelvis Lumbar spine/lower back: ROM limited, pain with ROM and straight leg raise negative bilaterally Sacroiliac joints: SI joints normal Other: positive facet loading bilaterally Extremity Common normals: normal to inspection and full ROM Right upper extremity: shoulder joint Left upper extremity: shoulder joint Other: bilateral shoulder ROM limited, increased pain with ROM, positive empty can test, positive posterior-lift off, positive cross body adduction. increased pain with palpation of bilateral suprascapular/axillary nerves, reports sharp shooting pain with overhead motions. strength 5/5 in BUE, sensation intact Neuro Common normals: oriented x3, CN's II-XII intact bilaterally, moves all extremities, no focal motor deficits, no sensory deficits noted and deep tendon reflexes 2+ bilaterally Sensorium/orientation: alert Motor exam: strength 5/5 throughout and no movement abnormalities noted Psych Common normals: mental status grossly normal, thought process normal, cooperative, affect normal, speech normal and activity/motor behavior normal Speech: normal speech Thought process: normal thought process Results Additional Findings Additional findings: If on a controlled substance or opioids, I have checked an [place]AR[place] report on this patient and there are no aberrancies noted in the prescribing history.??If on a controlled substance or opioid a drug screen was completed and reviewed within the last year, and if there has not been a drug screen completed we ordered one today to monitor higher risk, state monitored pain medication use. As part of providing excellent, safe, comprehensive care, the following was completed at our patient's visit: 1. A medication reconciliation and review to ensure accurate knowledge of current/active medications, including asking our patients to inform us about any [id number] medications or herbal remedies/nutritional suppl ements/alternative remedies. 2. A review to specifically ensure our patients have had annual screening for screening for depression, screening for tobacco use, and screening for unhealthy alcohol use. For concerning screenings had a discussion with the patient, provided patient education, and recommended follow-up with primary care provider when appropriate. If patient noted with a risk of falling, they received education on strength, gait, and balance training to prevent future risk of falling. Assessment and Plan Assessment and Plan (1) Lumbar spondylosis: (2) Lumbar stenosis with neurogenic claudication: (3) correction (current) use of opiate analgesic: (4) Myofascial pain: (5) Osteoarthritis: (6) Polyneuropathy: Plan bilateral L4-5 L5-S1 MBB x2 under fluoroscopy for lumbar spondylosis unresponsive to PT greater than 6 weeks, tylenol, nsaids, heat/ice continue HEP as tolerated continue current medications continue f/u with cardiology, pt looking for new PCP f/u after each injection
== END 2024-06-30 14:00 | disposition home or self-care (01) ==
LOC: PM 13:59
PROVIDERS: PCP Family Medicine; Visit Provider Nurse Practitioner
DX: M47.816 Spondylosis without myelopathy or radiculopathy, lumbar region (principal); M48.062 Spinal stenosis, lumbar region with neurogenic claudication; Z79.891 Long term (current) use of opiate analgesic; M79.18 Myalgia, other site; M19.90 Unspecified osteoarthritis, unspecified site; G62.9 Polyneuropathy, unspecified
CPT/HCPCS: G0463

== ENCOUNTER 2024-07-12 07:58 | Day surgery (SDC) | payer OTHER, SELFPAY ==
--- OUTSIDE RECORDS SUMMARY | 2024-07-12 08:05 | XMS_ITS | CCD ---
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 Role Phone PHYSICIAN, DEFAULT Unavailable Unavailable PHYSICIAN, DEFAULT Unavailable Unavailable PHYSICIAN, DEFAULT Unavailable Unavailable PHYSICIAN, DEFAULT Unavailable Unavailable AHMAD, SHOWKAT Unavailable Unavailable AHMAD, SHOWKAT Unavailable Unavailable REINECK, MELVI Unavailable Unavailable CANTU, MARY Unavailable Unavailable KAKIRILL, AMEER Unavailable Unavailable Romario Man Primary Care Provider Magda, Romario Bloom Primary Care Provider [phone] Romario Man MD Primary Care Provider MAGDA, ROMARIO Primary Care Physician [phone] MAGDA PROVIDERROMARIO Referring Unavailab le NILL, Julian Davis Attending Unavailable NILL, Juilan Davis Attending Unavailable NILL, Julian Davis Attending [...] Unavailnir Man MD, Romario Primary Care Provider [phone] HERNANDEZ, JENNIE S Referring Unavailable HERNANDEZ, JENNIE [...] Referring Unavailable HERNANDEZ, JENNIE S Attending Unavailable [facility] Primary Care Unavailable SELF, SELF [...] Medication Allergies] Propensity to adverse reactions (disorder) [facility] Repository (1 source) ranolazine; Translations: [RANOLAZINE] Drug Allergy [address] [place] [address] Repository Medications Current Medications Medication Drug Class(es) Dates Sig (Normalized) Sig (Original) Acetaminophen (10 sources) Start: 12-30-2022 acetaminophen (TYLENOL) tablet 650 mg Start: 09-12-2019 take 2 tablets by mo [facility] every eight hours as needed for [...] take 1 tablet by alissa twice daily [place] 5/325 Tab 1 tab(s), Oral, BID, Refill(s) [...] # 90 tab(s), Refills(s) 3, Pharmacy: [id number], 167.6, cm, 05/31/22 14:31:00 [...] 1 tablet by mouth once daily aspirin, [id number], tablet Take 1 tablet by mouth daily. Take 1 tablet (total dose= 81mg) by mouth daily. Return bottle(s) & unused medication at your next visit. Active take 1 tablet by alissa th once daily, then take 1 tablet by mouth once daily aspirin, [id number], tablet Take 1 tablet by mouth daily. 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] Onset: 07-01-2022 Episodic Other [...] Resume Atorvastatin at 40 mg daily Normal [facility] Office Visiton 06-16-2024 Follow-up visit [id number] Dorothea Alva 1960 M Date Provider Department [place] 06/16/2024 LISA ESTRADA VALENCIA Yessy Eugenio Family History Problem Relation Age of Onset Coronary artery disease Mother Coronary artery disease Father Family Status - Relation Status Age at Mother Father Level of Service:58608 IN OFFICE/OUTPATIENT ESTABLISHED MOD MDM 30 MIN Normal [facility] 06-04-2024 36 PT INFORMED [facility] 06-01-2024 36 Post Discharge Call Good morning, I am Priscilla Padilla RN a lead nurse from [facility]. I am calling you to follow [...] that now. RN attempted phone call at [employer] at this time. Patient Name Noel Alva Date 06/01/24 [facility] Telephoneon 06-01-2024 Telephone [id number] Dorothea Alva 1960 [facility] Provider Department [place] 06/01/2024 PRISCILLA GALLARDO [facility] Family History Problem Relation Age of Onset Coronary artery disease Mother Coronary artery disease Father Family Status - Relation Status Age at Mother Father Reason for Visit and Comments: Hospital Follow-up [832] [facility] 05-31-2024 30 The patient is Moder ately Stable - Low risk of patient condition declining or worsening The patient's goals for the shift include rest and comfort The clinical goals for the shift include Discharge Barriers to progression include awaiting cath and Echo results Recommendations to address these barriers include waiting for results and discharge is everything looks good. [facility] 30 Daily Case Managemen t [...] PT Recommendations: OT Recommendations: New Consults: Normal [facility] ANESon 05-31-2024 ANES ------- Attestation signed by Jonn Connell MD at 05/31/2024 8:23 AM Jonn Connell MD, MPH, [facility], [facility], [facility] Interventional Cardiology Pager Email: [email or web address] Patient: Noel Alva Procedure Information Date/Time: 05/31/24 0830 Procedure: Coronary angiography Location: [facility] 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 Additional Equipment Requests Normal [facility] ANTI-XA (HEPARIN LEVEL)on HEPARIN UNFRACTIONATED (U/ML) IN PPP BY CHROMOGENIC METHOD 0.28 IU/mL Low 0.3-0.7 [facility] Comment on above: Result Comment: Deborah roxaban and Apixaban will interfere with the anti Xa assay used to monitor UFH and LMWH. Performed By: #### L [id number] ####[facility] (BEAKER)[address] [place] [address] HEPARIN UNFRACTIONATED (U/ML) IN PPP BY CHROMOGENIC METHOD 0.29 IU/mL Low 0.3-0.7 [facility] Comment on above: Result Comment: Deborah roxaban and Apixaban will interfere with the anti Xa assay used to monitor UFH and LMWH. Performed By: #### L [id number] ####[facility] ([facility])[address] [place] [address] CBCon 05-31-2024 Erythrocyte distribution width (RBC) [Ratio] 13.6 % Normal 11.5-15.0 [facility] Comment on above: Performed By: #### L [id number] ####[facility] ([facility])[address] [place] [address] ERYTHROCYTE MEAN CORPUSCULAR HEMOGLOBIN CONCENTRATION (G/DL) BY AUTOMATED 33.9 g/dL Normal 32.0-35.0 [facility] Comment on above: Performed By: #### L [id number] ####[facility] (BEAKER)[address] [place] [address] Hematocrit (Bld) [Volume fraction] 40.4 % Normal 39.0-55.0 [facility] Comment on above: Performed By: #### L [id number] ####[facility] (BEAKER)[address] [place] [address] Hemoglobin (Bld) [Mass/Vol] 13.7 g/dL Normal 13.0-17.0 [facility] Comment on above: Performed By: #### L [id number] ####[facility] [place] [address] MCH (RBC) [Entitic mass] 31.4 pg Normal 27.0-33.0 [facility] Comment on above: Performed By: #### L [id number] ####[facility] [place] [address] MCV (RBC) [Entitic vol] 92.7 fL Normal 82.0-98.0 [facility] Comment on above: Performed By: #### L [id number] ####[facility] ([facility])[address] [place] [address] PLATELETS (10*3/UL) IN BLOOD AUTOMATED COUNT 171 10*3/uL Normal 150-400 [facility] Comment on above: Performed By: #### Nola [id number] ####[facility] ([facility])[address] [place] [address] RBC (Bld) [#/Vol] 4.36 10*6/uL Normal 4.20-5.70 [facility] Comment on above: Performed By: #### L [id number] ####[facility] ([facility])[address] [place] [address] WBC (Bld) [#/Vol] 7.85 10*3/uL Normal 4.00-10.60 [facility] Comment on above: Performed By: #### Nola [id number] ####[facility] ([facility])[address] [place] [address] [facility] 05-31-2024 ------- Attestation signed by Jonn Connell MD at 05/31/2024 8:23 AM Jonn Connell MD, MPH, FACC, [facility], [facility] Interventional Cardiology Pager Email: [email or web address] H&P reviewed. The patient was seen and [...] he understands and wishes to proceed. Normal [facility] ANTI-XA (HEPARIN LEVEL)on HEPARIN UNFRACTIONATED (U/ML) IN PPP BY CHROMOGENIC METHOD 0.25 IU/mL Low 0.3-0.7 [facility] Comment on above: Result Comment: Crowell roxaban and Apixaban will interfere with the anti Xa assay used to monitor UFH and LMWH. Performed By: #### L [id number] #### [facility] (BEAKER) [address] [place] [address] HEPARIN UNFRACTIONATED (U/ML) IN PPP BY CHROMOGENIC METHOD 0.23 IU/mL Low 0.3-0.7 [facility] Comment on above: Result Comment: Crowell roxaban and Apixaban will interfere with the anti Xa assay used to monitor UFH and LMWH. Performed By: #### L [id number] ####[facility] (BEAKER)[address] [place] [address] HEPARIN UNFRACTIONATED (U/ML) IN PPP BY CHROMOGENIC METHOD 0.22 IU/mL Low 0.3-0.7 [facility] Comment on above: Result Comment: Deborah roxaban and Apixaban will interfere with the anti Xa assay used to monitor UFH and LMWH. Performed By: #### L [id number] ####[facility] ([facility])[address] [place] [address] BASIC METABOLIC PANELon 08-2 Anion gap [Moles/Vol] 12 mmol/L Normal 7-20 [facility] Comment on above: Performed By: #### L [id number] ####[facility] ([facility])[address] [place] [address] Calcium [Mass/Vol] 9.1 mg/dL Normal 8.6-10.3 [facility] Comment on above: Performed By: #### L [id number] ####[facility] ([facility])[address] [place] [address] Chloride [Moles/Vol] 101 mmol/L Normal 98-107 [facility] Comment on above: Performed By: #### L [id number] ####[facility] ([facility])[address] [place] [address] CO2 [Moles/Vol] 26 mmol/L Normal 21-31 [facility] Comment on above: Performed By: #### L [id number] ####[facility] ([facility])[address] [place] [address] Creatinine [Mass/Vol] 0.71 mg/dL Normal 0.70-1.30 [facility] Comment on above: Performed By: #### L [id number] ####[facility] ([facility])[address] [place] [address] GLOMERULAR FILTRATION RATE ML/MIN/1.73 SQ M.PREDICTED 103.1 mL/min/1.73m*2 Normal >60.0 [facility] Comment on above: Result Comment: [facility]???s estimated glomerular filtration rate (eGFR) will no [...] L AB15 ####[facility] ([facility])[address] [place] [address] Glucose [Mass/Vol] 105 mg/dL High 70-100 [facility] Comment on above: Performed By: #### L [id number] ####[facility] ([facility])[address] [place] [address] Potassium [Moles/Vol] 4.1 mmol/L Normal 3.5-5.1 [facility] Comment on above: Performed By: #### L [id number] ####[facility] ([facility])[address] [place] [address] Sodium [Moles/Vol] 135 mmol/L Low 136-145 [facility] Comment on above: Performed By: #### L [id number] ####[facility] ([facility])[address] [place] [address] Urea nitrogen [Mass/Vol] 22 mg/dL Normal 7-25 [facility] Comment on above: Performed By: #### L [id number] ####[facility] ([facility])[address] [place] [address] UREA NITROGEN/CREATININE (MASS RATIO) IN SER/PLAS 31.0 Normal [facility] Comment on above: Performed By: #### L [id number] ####[facility] ([facility])[address] [place] [address] CBCon 05-30-2024 Erythrocyte distribution width (RBC) [Ratio] 13.8 % Normal 11.5-15.0 [facility] Comment on above: Performed By: #### L [id number] ####[facility] ([facility])[address] [place] [address] ERYTHROCYTE MEAN CORPUSCULAR HEMOGLOBIN CONCENTRATION (G/DL) BY AUTOMATED 32.7 g/dL Normal 32.0-35.0 [facility] Comment on above: Performed By: #### L [id number] ####[facility] ([facility])[address] [place] [address] Hematocrit (Bld) [Volume fraction] 43.1 % Normal 39.0-55.0 [facility] Comment on above: Performed By: #### L [id number] ####[facility] ([facility])[address] [place] [address] Hemoglobin (Bld) [Mass/Vol] 14.1 g/dL Normal 13.0-17.0 [facility] Comment on above: Performed By: #### L [id number] ####[facility] ([facility])[address] [place] [address] MCH (RBC) [Entitic mass] 31.5 pg Normal 27.0-33.0 [facility] Comment on above: Performed By: #### L [id number] ####[facility] ([facility])[address] [place] [address] MCV (RBC) [Entitic vol] 96.4 fL Normal 82.0-98.0 [facility] Comment on above: Performed By: #### L [id number] ####[facility] ([facility])[address] [place] [address] PLATELETS (10*3/UL) IN BLOOD AUTOMATED COUNT 181 10*3/uL Normal 150-400 [facility] Comment on above: Performed By: #### L [id number] ####[facility] ([facility])[address] [place] [address] RBC (Bld) [#/Vol] 4.47 10*6/uL Normal 4.20-5.70 [facility] Comment on above: Performed By: #### L [id number] ####[facility] ([facility])[address] [place] [address] WBC (Bld) [#/Vol] 7.33 10*3/uL Normal 4.00-10.60 [facility] Comment on above: Performed By: #### L [id number] ####[facility] (BEAKER)[address] [place] [address] MAGNESIUMon 05-30-2024 Magnesium [Mass/Vol] 1.8 mg/dL Low 1.9-2.7 [facility] Comment on above: Performed By: #### L [id number] ####[facility] (BEAKER)[address] [place] [address] 30on 05-29-2024 30 Problem: Pain - Adul [...] VSS, no chest pain, hemodynamically stable. Normal [facility] 30 The patient is Moder ately Stable [...] procedure to look for CA blockages. Normal [facility] ANTI-XA (HEPARIN LEVEL)on HEPARIN UNFRACTIONATED (U/ML) IN PPP BY CHROMOGENIC METHOD 0.33 IU/mL Normal 0.3-0.7 [facility] Comment on above: Order Comment: Check anti-Xa level every 6 hours while on heparin infusion, or per protocol. Result Comment: Crowell roxaban and Apixaban will interfere with the anti Xa assay used to monitor UFH and LMWH. Performed By: #### L [id number] #### [facility] ([facility]) [address] [place] [address] HEPARIN UNFRACTIONATED (U/ML) IN PPP BY CHROMOGENIC METHOD 0.38 IU/mL Normal 0.3-0.7 [facility] Comment on above: Order Comment: Check anti-Xa level every 6 hours while on heparin infusion, or per protocol. Result Comment: Crowell roxaban and Apixaban will interfere with the anti Xa assay used to monitor UFH and LMWH. Performed By: #### L [id number] #### [facility] ([facility]) [address] [place] [address] CBCon 05-29-2024 Erythrocyte distribution width (RBC) [Ratio] 14.0 % Normal 11.5-15.0 [facility] Comment on above: Performed By: #### L [id number] ####[facility] ([facility])[address] [place] [address] ERYTHROCYTE MEAN CORPUSCULAR HEMOGLOBIN CONCENTRATION (G/DL) BY AUTOMATED 34.0 g/dL Normal 32.0-35.0 [facility] Comment on above: Performed By: #### L [id number] ####[facility] ([facility])[address] [place] [address] Hematocrit (Bld) [Volume fraction] 42.0 % Normal 39.0-55.0 [facility] Comment on above: Performed By: #### L [id number] ####[facility] [place] [address] Hemoglobin (Bld) [Mass/Vol] 14.3 g/dL Normal 13.0-17.0 [facility] Comment on above: Performed By: #### L [id number] ####[facility] ([facility])[address] [place] [address] MCH (RBC) [Entitic mass] 31.5 pg Normal 27.0-33.0 [facility] Comment on above: Performed By: #### L [id number] ####[facility] ([facility])[address] [place] [address] MCV (RBC) [Entitic vol] 92.5 fL Normal 82.0-98.0 [facility] Comment on above: Performed By: #### L [id number] ####[facility] ([facility])[address] [place] [address] PLATELETS (10*3/UL) IN BLOOD AUTOMATED COUNT 177 10*3/uL Normal 150-400 [facility] Comment on above: Performed By: #### L [id number] ####[facility] ([facility])[address] [place] [address] RBC (Bld) [#/Vol] 4.54 10*6/uL Normal 4.20-5.70 [facility] Comment on above: Performed By: #### L [id number] ####[facility] [place] [address] WBC (Bld) [#/Vol] 6.44 10*3/uL Normal 4.00-10.60 [facility] Comment on above: Performed By: #### L [id number] ####[facility] [place] [address] CONSULTon 08-24-2024 CONSULT ------- Attestation signed by [...] presented yesterday to the cardiology office in [place] reporting recurrent chest pain on exertion as [...] obtain an echocardiographic study Kristian Palumbo MD, [facility] Cardiology Consult Note Reason for Consult: Chest pain HPI: Noel Alva is a 63 y.o. male patient is presenting as a direct transfer from [facility]. Past medical history includes: CAD HTN HLD Patient [facility] Dr. [facility] [place]. Patient reported that he has been experiencing intermittent diaphoresis episodes, worse with exertion, associated with mild chest pain responding to sublingual nitroglycerin. He mentioned it is similar to the symptoms he experienced when he had coronary artery disease stenting in 2005. Patient was sent to the ED at [place] for further workup. High sensitivity troponin level [...] disease, Hypertension, and PVD (peripheral vascular disease) ([facility]). Surgical History He has a past surgical [...] EC tab (more content not included)... Normal [facility] HAPTOGLOBINon 05-29-2024 Magnesium [Mass/Vol] 253 mg/dL High 26-164 [facility] Comment on above: Performed By: #### L [id number] #### [facility] ([facility]AKER) [address] [place] [address] HPon 05-29-2024 HP ------- Attestation signed by [...] presented yesterday to the cardiology office in [place] reporting recurrent chest pain on exertion as [...] we will obtain an echocardiographic study Kristian Palubmo MD, [facility] Cardiology Consult Note Reason for Consult: Chest pain HPI: Noel Alva is a 63 y.o. male patient is presenting as a direct transfer from [facility]. Past medical history includes: CAD HTN HLD Patient saw Dr. Marin [facility] [place]. Patient reported that he has been experiencing intermittent diaphoresis episodes, worse with exertion, associated with mild chest pain responding to sublingual nitroglycerin. He mentioned it is similar to the symptoms he experienced when he had coronary artery disease stenting in 2005. Patient was sent to the ED at [place] for further workup. High sensitivity troponin level [...] disease, Hypertension, and PVD (peripheral vascular disease) ([facility]). Surgical History He has a past surgical [...] EC tab (more content not included)... Normal [facility] LACTATE DEHYDROGENASEon 05-07 LACTATE DEHYDROGENASE (U/L) IN SER/PLAS BY LAC->PYR RXN 166 U/L Normal 140-271 [facility] Comment on above: Performed By: #### L [id number] ####[facility] ([facility])[address] [place] [address] TROPONIN Ion 05-29-2024 Troponin I.cardiac [Mass/Vol] 0.02 ng/mL Normal 0.00-0.04 [facility] Comment on above: Performed By: #### L [id number] #### [facility] ([facility]) [address] [place] [address] Troponin I.cardiac [Mass/Vol] 0.01 ng/mL Normal 0.00-0.04 [facility] Comment on above: Performed By: #### L [id number] #### [facility] ([facility]) [address] [place] [address] Troponin I.cardiac [Mass/Vol] 0.01 ng/mL Normal 0.00-0.04 [facility] Comment on above: Performed By: #### L [id number] #### [facility] ([facility]) [address] [place] [address] TSH3 REFLEX TO FT4on 024 THYROTROPIN (MIU/L) IN SER/PLAS BY DETECTION LIMIT <= 0.05 MIU/L 2.12 mIU/L Normal 0.34-5.60 [facility] Comment on above: Performed By: #### L [id number] ####[facility] ([facility])[address] [place] [address] VITAMIN B12on 05-29-2024 Cobalamin (Vitamin B12) [Mass/Vol] 394 pg/mL Normal 180-914 [facility] Comment on above: Result Comment: REFE RENCE RANGES: 180-914 pg/mL Normal 145-179 pg/mL Indeterminate <145 pg/mL Deficient Performed By: #### L [id number] #### [facility] ([facility]) [address] [place] [address] 29on 05-28-2024 29 Addended by: ELIEL WORLEY on: 05/28/2024 09:55 AM Modules accepted: Orders Normal [facility] APTTon 05-28-2024 ACTIVATED PARTIAL THROMBOPLASTIN TIME IN PPP BY COAGULATION ASSAY 26.4 Seconds Normal 25.0-35.0 [facility] Comment on above: Order Comment: Basel ine aPTT before initiating heparin infusion. Result Comment: Clin ical significance of the APTT is questionable in the presence of heparin. Performed By: #### L [id number] #### [facility] ([facility]) [address] [place] [address] B-TYPE NATRIURETIC PEPTIDEon 05-28-2024 Natriuretic peptide B (Bld) [Mass/Vol] 73 pg/mL Normal 0-100 [facility] Comment on above: Performed By: #### L [id number] ####[facility] ([facility])[address] [place] [address] BASIC METABOLIC PANELon 05-07 Anion gap [Moles/Vol] 14 mmol/L Normal 7-20 [facility] Comment on above: Performed By: #### L [id number] #### [facility] ([facility]) [address] [place] [address] Calcium [Mass/Vol] 9.8 mg/dL Normal 8.6-10.3 [facility] Comment on above: Performed By: #### L [id number] #### [facility] ([facility]) [address] [facility] [place] [address] Chloride [Moles/Vol] 97 mmol/L Low 98-107 [facility] Comment on above: Performed By: #### L [id number] #### [facility] ([facility]) [address] [place] [address] CO2 [Moles/Vol] 29 mmol/L Normal 21-31 [facility] Comment on above: Performed By: #### L [id number] #### [facility] ([facility]) [address] [place] [address] Creatinine [Mass/Vol] 0.75 mg/dL Normal 0.70-1.30 [facility] Comment on above: Performed By: #### L [id number] #### [facility] ([facility]) [address] [place] [address] GLOMERULAR FILTRATION RATE ML/MIN/1.73 SQ M.PREDICTED 101.4 mL/min/1.73m*2 Normal >60.0 [facility] Comment on above: Result Comment: [facility]???s estimated glomerular filtration rate (eGFR) will no [...] AB15 #### [facility] ([facility]) [address] [place] [address] Glucose [Mass/Vol] 109 mg/dL High 70-100 [facility] Comment on above: Performed By: #### L [id number] #### [facility] ([facility]) [address] [place] [address] Potassium [Moles/Vol] 3.6 mmol/L Normal 3.5-5.1 [facility] Comment on above: Performed By: #### L [id number] #### [facility] ([facility]) [address] [place] [address] Sodium [Moles/Vol] 136 mmol/L Normal 136-145 [facility] Comment on above: Performed By: #### L [id number] #### [facility] [address] [place] [address] Urea nitrogen [Mass/Vol] 20 mg/dL Normal 7-25 [facility] Comment on above: Performed By: #### L [id number] #### [facility] ([facility]) [address] [place] [address] UREA NITROGEN/CREATININE (MASS RATIO) IN SER/PLAS 26.7 Normal [facility] Comment on above: Performed By: #### L [id number] #### [facility] ([facility]) [address] [place] [address] CBCon 05-28-2024 Erythrocyte distribution width (RBC) [Ratio] 14.2 % Normal 11.5-15.0 [facility] Comment on above: Performed By: #### L [id number] #### [facility] ([facility]) [address] [place] [address] ERYTHROCYTE MEAN CORPUSCULAR HEMOGLOBIN CONCENTRATION (G/DL) BY AUTOMATED 33.6 g/dL Normal 32.0-35.0 [facility] Comment on above: Performed By: #### L [id number] #### [facility] ([facility]) [address] [place] [address] Hematocrit (Bld) [Volume fraction] 45.8 % Normal 39.0-55.0 [facility] Comment on above: Performed By: #### L [id number] #### [facility] [address] [place] [address] Hemoglobin (Bld) [Mass/Vol] 15.4 g/dL Normal 13.0-17.0 [facility] Comment on above: Performed By: #### L [id number] #### [facility] [address] [place] [address] MCH (RBC) [Entitic mass] 31.2 pg Normal 27.0-33.0 [facility] Comment on above: Performed By: #### L [id number] #### [facility] [address] [place] [address] MCV (RBC) [Entitic vol] 92.9 fL Normal 82.0-98.0 [facility] Comment on above: Performed By: #### L [id number] #### [facility] ([facility]) [address] [place] [address] PLATELETS (10*3/UL) IN BLOOD AUTOMATED COUNT 197 10*3/uL Normal 150-400 [facility] Comment on above: Performed By: #### L [id number] #### [facility] ([facility]) [address] [address] RBC (Bld) [#/Vol] 4.93 10*6/uL Normal 4.20-5.70 [facility] Comment on above: Performed By: #### L [id number] #### [facility] ([facility]) [address] [place] [address] WBC (Bld) [#/Vol] 6.33 10*3/uL Normal 4.00-10.60 [facility] Comment on above: Performed By: #### L [id number] #### [facility] ([facility]) [address] [place] [address] HEMOGLOBIN A1Con 05-28-2024 Glucose [Mass/Vol] 123 mg/dL Normal [facility] Comment on above: Performed By: #### L [id number] #### [facility] ([facility]) [address] [place] [address] HbA1c (Bld) [Mass fraction] 5.9 % Normal 4.0-6.0 [facility] Comment on above: Performed By: #### L [id number] #### [facility] [address] [place] [address] LIPID PANELon 05-28-2024 CHOL/HDL 2.5 mg/dL Normal [facility] Comment on above: Performed By: #### L [id number] #### [facility] [address] [place] [address] Cholesterol [Mass/Vol] 142 mg/dL Normal 120-200 [facility] Comment on above: Performed By: #### L [id number] #### [facility] ([facility]) [address] [place] [address] Magnesium [Mass/Vol] 109 mg/dL Normal 40-149 [facility] Comment on above: Result Comment: TRIG LYCERIDE REFERENCE RANGE: 20 YEARS AND OLDER CARDIOVASCULAR RISK LESS THAN 150 mg/dL LOW RISK 150 TO 199 mg/dL BORDERLINE RISK 200 mg/dL AND GREATER HIGH RISK Performed By: #### L [id number] #### [facility] ([facility]) [address] [place] [address] Magnesium [Mass/Vol] 64 mg/dL Normal 0-160 [facility] Comment on above: Performed By: #### L [id number] #### [facility] ([facility]) [address] [place] [address] Magnesium [Mass/Vol] 56 mg/dL Normal 23-92 [facility] Comment on above: Performed By: #### L [id number] #### [facility] ([facility]) [address] [place] [address] NON HDL CHOL. (LDL+VLDL) 86 Normal [facility] Comment on above: Performed By: #### L [id number] #### [facility] ([facility]) [address] [place] [address] TOTAL VLDL-C 22 mg/dL Normal 0-40 [facility] Comment on above: Performed By: #### L [id number] #### [facility] ([facility]) [address] [place] [address] MAGNESIUMon 05-28-2024 Magnesium [Mass/Vol] 2.1 mg/dL Normal 1.9-2.7 [facility] Comment on above: Performed By: #### L [id number] #### [facility] ([facility]) [address] [place] [address] Office Visiton 05-28-2024 Follow-up visit [id number] Dorothea Alva 1960 M Date Provider Department Center 05/28/2024 ELIEL ECEKRT VALENCIA Becker Family History Problem Relation Age of Onset Coronary artery disease Mother Coronary artery disease Father Family Status - Relation Status Age at Mother Father Level of Service:02686 IN OFFICE/OUTPATIENT ESTABLISHED HIGH MDM 40 MIN Normal [facility] POCT GLUCOSE METER UNSOLICIT ED RESULTSon 05-28-2024 Glucose [Mass/Vol] 145 mg/dL High 70-105 [facility] Comment on above: Order Comment: Check anti-Xa level every 6 hours while on heparin infusion, or per protocol. Result Comment: jose juan swift Performed By: #### L [id number] #### [facility] ([facility]) [address] [place] [address] TROPONIN Ion 05-28-2024 Troponin I.cardiac [Mass/Vol] 0.01 ng/mL Normal 0.00-0.04 [facility] Comment on above: Performed By: #### L [id number] #### [facility] ([facility]) [address] [facility] [place] [address] Office Visiton 02-11-2024 Follow-up visit [id number] Dorothea Alva 1960 M Date Provider Department Center 02/11/2024 ELIEL ECKERT VALENCIA Becker Family History Problem Relation Age of Onset Coronary artery disease Mother Coronary artery disease Father Family Status - Relation Status Age at Mother Father Level of Service:31150 IN OFFICE/OUTPATIENT ESTABLISHED MOD MDM 30 MIN Normal [facility] COVID-19, Rapidon 2023 SARS-CoV-2 (COVID-19) RdRp gene DAHLIA+probe Ql (Resp) Not detected Not Detected [facility] Comment on above: Rapid NAAT: The specimen [...] management decisions. Fact sheet for Healthcare Providers: https://www.fda.gov/media/909805/download Fact sheet for Patients: https://www.fda.gov/media/253141/download Methodology: Isothermal Nucleic Acid Amplification Specimen Description .NASOPHARYNGEAL SWAB [facility] Flu A/B Ag Detectionon 10-10 Flu A Ag Detection Negative Normal [facility] Comment on above: Result Comment: for Influenza A Antigen Performed By: #### F NATALYA #### [facility] [address] [place] [address] [place] [address] Director Of Recruitment: Luis Carlos Del Castillo MD Flu B Ag Detection Negative Normal [facility] Comment on above: Result Comment: for Influenza B Antigen. Performed By: #### F LUABA #### [address] [place] [address] Director Of Recruitment: Luis Carlos Del Castillo MD Rapid influenza A/B antigens on 2023 FLUAV Ag Ql (Unsp spec) Negative NEGATIVE [facility] Comment on above: for Influenza A Anti gen FLUBV Ag Ql (Unsp spec) Negative NEGATIVE [facility] Comment on above: for Influenza B Anti gen. [facility] [id number] 2023 SARS-CoV-2 (COVID-19) RNA DAHLIA+probe Ql (Unsp spec) Not detected [facility] Comment on above: Result Comment: [...] management decisions. Fact sheet for Healthcare Providers: https://www.fda.gov/media/835604/download Fact sheet for Patients: https://www.fda.gov/media/891012/download Methodology: Isothermal Nucleic Acid Amplification Performed By: #### C OVRB #### [facility] [address] [place] [address] Director Of Recruitment: Luis Carlos Del Castillo MD XR CHEST [...] Nav Hudson MD 10/10/23 Final result Normal [facility] Documentationon 09-18-2023 Documentation [id number] Dorothea Alva 1960 M Date Provider Department Center 09/18/2023 JuliannaDAVIDSON SHARP [facility] Family History Problem Relation Age of Onset Coronary artery disease Mother Coronary artery disease Father Family Status - Relation Status Age at Mother Father Normal [facility] CBCon 09-09-2023 ABSOLUTE BAS 0.1 10*3/uL Normal 0.0-0.2 [facility] ABSOLUTE EOS 0.1 10*3/uL Normal 0.0-0.7 [facility] ABSOLUTE NEUTROPHIL COUNT 7.0 10*3/uL High 1.4-6.5 [facility] Basophils/100 WBC (Bld) 0.9 % Normal 0.0-2.0 [facility] DTYPE AUTO DIFF Normal [facility] Eosinophils/100 WBC (Bld) 1.3 % Normal 0.0-11.0 [facility] Lymphocytes (Bld) [#/Vol] 1.5 10*3/uL Normal 1.2-3.4 [facility] Lymphocytes/100 WBC (Bld) 15.7 % Low 20.0-55.0 [facility] Monocytes (Bld) [#/Vol] 0.6 10*3/uL Normal 0.0-0.7 [facility] Monocytes/100 WBC (Bld) 7.0 % Normal 0.0-10.0 [facility] Neutrophils/100 WBC (Bld) 75.1 % High 37.0-75.0 [facility] Erythrocyte distribution width (RBC) [Ratio] 14.6 % High 11.5-14.5 [facility] Hematocrit (Bld) [Volume fraction] 41.6 % Low 42.0-52.0 [facility] Hemoglobin (Bld) [Mass/Vol] 13.9 g/dL Low 14.0-18.0 [facility] MCH (RBC) [Entitic mass] 33.0 pg Normal 26.0-35.0 [facility] MCHC (RBC) [Mass/Vol] 33.4 g/dL Normal 27.0-37.0 [facility] MCV (RBC) [Entitic vol] 98.7 fL Normal 80.0-100.0 [facility] Platelet mean volume (Bld) [Entitic vol] 7.8 fL Normal 7.4-11.0 [facility] Platelets (Bld) [#/Vol] 195 10*3/uL Normal 130-400 [facility] RBC (Bld) [#/Vol] 4.21 10*6/uL Normal 4.0-6.1 [facility] WBC (Bld) [#/Vol] 9.3 10*3/uL Normal 3.6-11.0 [facility] CMP FASTINGon 09-09-2023 A:G RATIO 1.5 RATIO Normal 1.3-2.2 [facility] ALBUMIN 4.3 G/dl Normal 3.5-5.0 [facility] ALP [Catalytic activity/Vol] 99 U/L Normal 38-126 [facility] ALT [Catalytic activity/Vol] 46 U/L Normal <50 [facility] AST [Catalytic activity/Vol] 57 U/L Normal 17-59 [facility] Bilirubin [Mass/Vol] 0.7 mg/dL Normal 0.2-1.3 [facility] Calcium [Mass/Vol] 9.5 mg/dL Normal 8.4-10.2 [facility] Chloride [Moles/Vol] 105 mmol/L Normal 98-107 [facility] Comment on above: Result Comment: Gilma medellin note: Triglyceride levels of 600mg/dL or higher may positively bias chloride results by approximately 2.1 mmol CO2 [Moles/Vol] 27 mmol/L Normal 22-30 [facility] Creatinine [Mass/Vol] 0.60 mg/dL Low 0.7-1.2 [facility] EST. GFR, 176 ml/min/1.73sq.m Normal [facility] EST. GFR,Non 145 ml/min/1.73sq.m Normal [facility] GFR Information Average GFR for 60-6 9 years old = 85. Normal [facility] Comment on above: Result Comment: Metal Moulder'S Assistant isaiah Kidney disease, GFR = <60. Kidney failure, GFR = <15. The GFR estimate is not adjusted for extreme body surface area or acute process, nor has it been validated for women or ethnic groups other than and . Glucose [Mass/Vol] 86 mg/dL Normal 70-100 [facility] Comment on above: Result Comment: NORMAL <100 mg/dL PREDIABETES 101-126 mg/dL DIABETES 126 mg/dL or higher Potassium [Moles/Vol] 4.0 mmol/L Normal 3.5-5.1 [facility] Protein [Mass/Vol] 7.1 g/dL Normal 6.3-8.2 [facility] Sodium [Moles/Vol] 141 mmol/L Normal 137-145 [facility] Urea nitrogen [Mass/Vol] 16 mg/dL Normal 7-20 [facility] LARGE JOINT/BURSA INJECTION AND/OR ASPIRATIONon 08-13-2023 Radiology Study observation (narrative) [facility] Office Visiton 08-13-2023 Follow-up visit [id number] Dorothea Alva 1960 Provider Department Center 08/13/2023 DAVIDSON HOWELL VALENCIA Becker Family History Problem Relation Age of Onset Coronary artery disease Mother Coronary artery disease Father Family Status - Relation Status Age at Mother Father Level of Service:35157 IN OFFICE/OUTPATIENT ESTABLISHED MOD MDM 30-39 MIN Reason for Visit and Comments: Coronary Artery Disease [187] Chest Pain [277973] Pre-op Exam [411924] Hyperlipidemia [182] Hypertension [868439] Normal [facility] Orders Onlyon 08-13-2023 Orders Only [id number] Dorothea Alva 1960 Provider Department Center 08/13/2023 ADA BALTAZAR VALENCIA Becker Family History Problem Relation Age of Onset Coronary artery disease Mother Coronary artery disease Father Family Status - Relation Status Age at Mother Father Normal [facility] 36on 08-03-2023 36 Patient will need an appointment for further refills - thanks ! Normal [facility] LARGE JOINT/BURSA INJECTION AND/OR ASPIRATIONon 07-16-2023 [...] fashion. The patient was prepped with Chloraprep. [facility] [place] Unspecified body regionon 07-16-2023 Image Storage This order is to facilitate the storage of the image. [facility] LARGE JOINT/BURSA INJECTION AND/OR ASPIRATIONon 06-17-2023 Radiology Study observation (narrative) [facility] LARGE JOINT/BURSA INJECTION AND/OR ASPIRATIONon [...] fashion. The patient was prepped with Chloraprep. [facility] [place] Unspecified body regionon 06-10-2023 Image Storage This order is to facilitate the storage of the image. [facility] LARGE JOINT/BURSA INJECTION AND/OR ASPIRATIONon 05-15-2023 Radiology Study observation (narrative) [facility] LARGE JOINT/BURSA INJECTION AND/OR ASPIRATIONon [...] fashion. The patient was prepped with Chloraprep. [employer] [place] Unspecified body regionon 04-18-2023 Image Storage This order is to facilitate the storage of the image. Plated XR HIPS KOURTNEY 5V W PELVISon XR [...] LUIS CARLOS ENCARNACION Date: 2023-01-08 13:57 Normal [facility] XR LSPINE W_OBLS AND FLEX_EX Ton [...] CARLOS ENCARNACION Date: 2023-01-08 14:00 Normal [facility] Hemoglobin A1Con 01-01-2023 Glucose [Mass/Vol] 114 mg/dL Normal [facility] Comment on above: Result Comment: The ADA and AACC recommend providing the estimated average glucose result to permit better patient understanding of their HBA1c result. Performed By: #### L IPR #### [facility] [address] [place] [address] Director Of Recruitment: Marshall Paulino MD HbA1c (Bld) [Mass fraction] 5.6 % Normal 4.0-6.0 [facility] Comment on above: Performed By: #### L IPR #### [employer] [address] [place] [address] Director Of Recruitment: Marshall Paulino MD Basic Metab w/rfx MGon 12-31 Anion gap [Moles/Vol] 9 mmol/L Normal 9-17 [facility] Comment on above: Performed By: #### T ROPI, CDP, BMPX #### [facility] [address] [address] Director Of Recruitment: Luis Carlos Del Castillo MD #### GLYHGB #### [id number] [place] [address] Director Of Recruitment: Marshall Paulino MD BUN/CRE Ratio 39 High 9-20 [facility] Comment on above: Performed By: #### T ROPI, CDP, BMPX #### [facility] [address] [place], [place] [id number] Director Of Recruitment: Luis Carlos Del Castillo MD #### GLYHGB #### [address] [address] Director Of Recruitment: Marshall Paulino MD Calcium [Mass/Vol] 9.5 mg/dL Normal 8.6-10.4 [facility] Comment on above: Performed By: #### T ROPI, CDP, BMPX #### [facility] [address] [place], [place] [id number] Director Of Recruitment: Luis Carlos Del Castillo MD #### GLYHGB #### [address] [address] Director Of Recruitment: Marshall Paulino MD Chloride [Moles/Vol] 106 mmol/L Normal 98-107 [facility] Comment on above: Performed By: #### T ROPI, CDP, BMPX #### [facility] [address] [place], [place] [address]83 Director Of Recruitment: Luis Carlos Del Castillo MD #### GLYHGB #### [address] [address] Director Of Recruitment: Marshall Paulino MD CO2 [Moles/Vol] 25 mmol/L Normal 20-31 [facility] Comment on above: Performed By: #### T ROPI, CDP, BMPX #### [facility] [address] [place], [place] [id number] Director Of Recruitment: Luis Carlos Del Castillo MD #### GLYHGB #### [address] [id number] Director Of Recruitment: Marshall Paulino MD Creatinine [Mass/Vol] 0.70 mg/dL Normal 0.70-1.20 [facility] Comment on above: Performed By: #### T GEE ALONZO, BMPX #### [facility] [address] [address] Director Of Recruitment: Luis Carlos Del Castillo MD #### GLYHGB #### [address] [id number] Director Of Recruitment: Marshall Paulino MD GFR/1.73 sq M.predicted among non-blacks MDRD (S/P/Bld) [Vol rate/Area] mL/min/{1.73_m2} Normal >60 [facility] Comment on above: Result Comment: [...] By: #### T GEE ALONZO BMPX #### [address] [place], [place] [id number] Director Of Recruitment: Luis Carlos Del Castillo MD #### GLYHGB #### [address] [id number] Director Of Recruitment: Marshall Paulino MD Glucose [Mass/Vol] 103 mg/dL High 70-99 [facility] Comment on above: Performed By: #### T GEE ALONZO, BMPX #### [address] [place] [address] Director Of Recruitment: Luis Carlos Del Castillo MD #### GLYHGB #### [address] [phone] Director Of Recruitment: Marshall Paulino MD Potassium [Moles/Vol] 4.3 mmol/L Normal 3.7-5.3 [facility] Comment on above: Performed By: #### T GEE ALONZO, BMPX #### [facility] [address] [address] Director Of Recruitment: Luis Carlos Del Castillo MD #### GLYHGB #### [facility] [address] [place], [place] [id number] Director Of Recruitment: Marshall Paulino MD Sodium [Moles/Vol] 140 mmol/L Normal 135-144 [facility] Comment on above: Performed By: #### T GEE ALONZO, BMPX #### [facility] [address] [address] Director Of Recruitment: Luis Carlos Del Castillo MD #### GLYHGB #### [id number] [place] [address] Director Of Recruitment: Marshall Paulino MD Urea nitrogen [Mass/Vol] 27 mg/dL High 8-23 [facility] Comment on above: Performed By: #### GEE ESPAÑA, BMPX #### [facility] [address] [address] Director Of Recruitment: Luis Carlos Del Castillo MD #### GLYHGB #### [id number] [place], [place] [id number] Director Of Recruitment: Marshall Paulino MD Basic Metabolic Panel w/ Ref maria antonia to MGon 12-31-2022 Anion gap [Moles/Vol] 9 mmol/L 9 - 17 mmol/L [facility] Calcium [Mass/Vol] 9.5 mg/dL 8.6 - 10. 4 mg/dL [facility] Chloride [Moles/Vol] 106 mmol/L 98 - 10 7 mmol/L [facility] CO2 [Moles/Vol] 25 mmol/L 20 - 31 mmol/L [facility] Creatinine [Mass/Vol] 0.7 mg/dL 0.70 - 1.20 mg/dL [facility] [employer] GFR/1.73 sq M.predicted MDRD (S/P/Bld) [Vol rate/Area] - PINF [facility] Comment on above: These results are [...] 103 mg/dL High 70 - 99 mg/dL [facility] [employer] Interpretation and review of laboratory results Abnormal [facility] [employer] Potassium [Moles/Vol] 4.3 mmol/L 3.7 - 5.3 mmol/L [facility] Sodium [Moles/Vol] 140 mmol/L 135 - 144 mmol/L [facility] [employer] Urea nitrogen [Mass/Vol] 27 mg/dL High 8 - 23 mg/dL [facility] Urea nitrogen/Creatinine (Bld) [Mass ratio] 39 High 9 - 20 [facility] CARDIAC STRESS TESTon 2022 CARDIAC STRESS TEST [address] [id number] CARDIAC STRESS TEST PATIENT NAME: NOEL ALVA : 1960 MED REC NO: [id number] ROOM: 0327 ACCOUNT NO: [id number] ADMIT DATE: 12/30/2022 PROVIDER: Fany Mohr MD [...] MIRIAN/BILLY_LUCIAN Doc#: Unknown CC: Romario Man Normal [facility] CBC with Auto Differentialon 12-31-2022 Absolute Eos # 0.18 [place] [facility] Absolute Immature Granulocyte [facility] Absolute Lymph # 1.58 [facility] Absolute [place] # 0.72 [facility] Basophils (Bld) [#/Vol] 0.05 10*3/uL [facility] Interpretation and review of laboratory results Abnormal [facility] NRBC Automated 0.0 0.0 per 100 WBC [facility] Platelet distribution width (Bld) [Ratio] 13.9 % 11.8 - 14.4 % [facility] Segmented neutrophils/100 WBC (Bld) 62 % 36 - 65 % [facility] Segs Absolute 4.27 [facility] CBC with Diffon 12-31-2022 Abs. Basophil 0.05 k/uL Normal 0.00-0.20 [facility] Comment on above: Performed By: #### T GEE ALONZO, BMPX #### [facility] [address] [address] Director Of Recruitment: Luis Carlos Del Castillo MD #### GLYHGB #### [address] [address] Director Of Recruitment: Marshall Paulino MD Abs.Imm.Granulocyte <0.03 Normal 0.00-0.30 [facility] Comment on above: Performed By: #### T GEE ALONZO, BMPX #### [facility] [address] [place] [id number] ( Director Of Recruitment: Luis Carlos Del Castillo MD #### GLYHGB #### [place] [id number] Director Of Recruitment: Marshall Paulino MD Abs.Neutrophil (Seg) 4.27 k/uL Normal 1.50-8.10 [facility] Comment on above: Performed By: #### GEE ESPAÑA, BMPX #### [address] [place] [id number] Director Of Recruitment: Luis Carlos Del Castillo MD #### GLYHGB #### [place] [address] Director Of Recruitment: Marshall Paulino MD Eosinophils (Bld) [#/Vol] 0.18 10*3/uL Normal 0.00-0.44 [facility] Comment on above: Performed By: #### GEE ESPAÑA, BMPX #### [address] [address] [place] [id number] Director Of Recruitment: Luis Carlos Del Castillo MD #### GLYHGB #### [place] [address] Director Of Recruitment: Marshall Paulino MD Erythrocyte distribution width (RBC) [Ratio] 13.9 % Normal 11.8-14.4 [facility] Comment on above: Performed By: #### GEE ESPAÑA, BMPX #### [address] [place] [id number] Director Of Recruitment: Luis Carlos Del Castillo MD #### GLYHGB #### [place] [address] Director Of Recruitment: Marshall Paulino MD Lymphocytes (Bld) [#/Vol] 1.58 10*3/uL Normal 1.10-3.70 [facility] Comment on above: Performed By: #### T ROPI, CDP, BMPX #### [address] [place], [place] [id number] Director Of Recruitment: Luis Carlos Del Castillo MD #### GLYHGB #### [address] [id number] Director Of Recruitment: Marshall Paulino MD Monocytes (Bld) [#/Vol] 0.72 10*3/uL Normal 0.10-1.20 [facility] Comment on above: Performed By: #### T CHERI CDP, BMPX #### [address] [place], [place] [id number] Director Of Recruitment: Luis Carlos Del Castillo MD #### GLYHGB #### [address] [id number] Director Of Recruitment: Marshall Paulino MD Neutrophil (Seg) 62 % Normal 36-65 [facility] Comment on above: Performed By: #### GEE ESPAÑA, BMPX #### [address] [place] [id number] Director Of Recruitment: Luis Carlos Del Castillo MD #### GLYHGB #### [address] [address] Director Of Recruitment: Marshall Paulino MD NRBC Automated 0.0 per 100 WBC Normal 0.0 [facility] Comment on above: Performed By: #### T CHERI CDP, BMPX #### [address] [place], [place] [id number] Director Of Recruitment: Luis Carlos Del Castillo MD #### GLYHGB #### [address] [id number] Director Of Recruitment: Marshall Paulino MD Basophils/100 WBC (Bld) 1 % Normal 0-2 [facility] Comment on above: Performed By: #### T GEE ALONZO, BMPX #### [address] [place] [address] Director Of Recruitment: Luis Carlos Del Castillo MD #### GLYHGB #### [address] [id number] Director Of Recruitment: Marshall Paulino MD Eosinophils/100 WBC (Bld) 3 % Normal 1-4 [facility] Comment on above: Performed By: #### GEE ESPAÑA, BMPX #### [address] [place] [address] Director Of Recruitment: Luis Carlos Del Castillo MD #### GLYHGB #### [place] [id number] Director Of Recruitment: Marshall Paulino MD Hematocrit (Bld) [Volume fraction] 40.4 % Low 40.7-50.3 [facility] Comment on above: Performed By: #### GEE ESPAÑA, BMPX #### [address] [place] [address] Director Of Recruitment: Luis Carlos Del Castillo MD #### GLYHGB #### [place] [id number] Director Of Recruitment: Marshall Paulino MD Hemoglobin (Bld) [Mass/Vol] 13.5 g/dL Normal 13.0-17.0 [facility] Comment on above: Performed By: #### GEE ESPAÑA, BMPX #### [address] [place] [address] Director Of Recruitment: Luis Carlos Del Castillo MD #### GLYHGB #### [address] [address] Director Of Recruitment: Marshall Paulino MD Immature granulocytes/100 WBC (Bld) 0 % Normal 0 [facility] Comment on above: Performed By: #### GEE ESPAÑA, BMPX #### [address] [place] [address] Director Of Recruitment: Luis Carlos Del Castillo MD #### GLYHGB #### [place] [id number] [place] [address] Director Of Recruitment: Marshall Paulino MD Lymphocytes/100 WBC (Bld) 23 % Low 24-43 [facility] Comment on above: Performed By: #### GEE ESPAÑA, BMPX #### [address] [place] [address] Director Of Recruitment: Luis Carlos Del Castillo MD #### GLYHGB #### [place] [id number] Director Of Recruitment: Marshall Paulino MD MCH (RBC) [Entitic mass] 31.2 pg Normal 25.2-33.5 [facility] Comment on above: Performed By: #### GEE ESPAÑA, BMPX #### [address] [place] [address] Director Of Recruitment: Luis Carlos Del Castillo MD #### GLYHGB #### [address] [address] Director Of Recruitment: Marshall Paulino MD MCHC (RBC) [Mass/Vol] 33.4 g/dL Normal 28.4-34.8 [facility] Comment on above: Performed By: #### EGE ESPAÑA, BMPX #### [address] [place] [address] Director Of Recruitment: Luis Carlos Del Castillo MD #### GLYHGB #### [address] [address] Director Of Recruitment: Marshall Paulino MD MCV (RBC) [Entitic vol] 93.3 fL Normal 82.6-102.9 [facility] Comment on above: Performed By: #### GEE ESPAÑA, BMPX #### [address] [place] [id number] Director Of Recruitment: Luis Carlos Del Castillo MD #### GLYHGB #### [address] [id number] Director Of Recruitment: Marshall Paulino MD Monocytes/100 WBC (Bld) 11 % Normal 3-12 [facility] Comment on above: Performed By: #### GEE ESPAÑA, BMPX #### [address] [place] [id number] Director Of Recruitment: Luis Carlos Del Castillo MD #### GLYHGB #### [place] [id number] Director Of Recruitment: Marshall Paulino MD Platelet mean volume (Bld) [Entitic vol] 10.1 fL Normal 8.1-13.5 [facility] Comment on above: Performed By: #### GEE ESPAÑA, BMPX #### [address] [place] [id number] Director Of Recruitment: Luis Carlos Del Castillo MD #### GLYHGB #### [place] [id number] Director Of Recruitment: Marshall Paulino MD Platelets (Bld) [#/Vol] 190 10*3/uL Normal 138-453 [facility] Comment on above: Performed By: #### GEE ESPAÑA, BMPX #### [address] [place] [id number] Director Of Recruitment: Luis Carlos Del Castillo MD #### GLYHGB #### [address] [phone] Director Of Recruitment: Marshall Paulino MD RBC (Bld) [#/Vol] 4.33 10*6/uL Normal 4.21-5.77 [facility] Comment on above: Performed By: #### Ileana ALONZO, CDP, BMPX #### [facility] [address] [address] Director Of Recruitment: Luis Carlos Del Castillo MD #### GLYHGB #### [facility] [address] [place], [place] [id number] Director Of Recruitment: Marshall Paulino MD WBC (Bld) [#/Vol] 6.8 10*3/uL Normal 3.5-11.3 [facility] [employer] Comment on above: Performed By: #### T GEE ALONZO, BMPX #### [facility] [address] [address] Director Of Recruitment: Luis Carlos Del Castillo MD #### GLYHGB #### [facility] [address] [place] [address] Director Of Recruitment: Marshall Paulino MD EKG 12 leadon 12-31-2022 Atrial Rate 51 BPM [employer] Work Phone: P [place] [address] [facility] [employer] Work Phone: P-R Interval 144 ms Apparent Phone: Q-T Interval [address] [facility] [employer] Work Phone: QRS Duration 72 ms [employer] Work Phone: QTc Calculation (Bazett) 451 ms [employer] Work Phone: R [place] 47 degrees Apparent Phone: T [place] 91 degrees Apparent Phone: Ventricular Rate 51 BPM [employer] [facility] [employer] Work Phone: Sinus bradycardia T wave abnormality, consider lateral ischemia Abnormal ECG When compared with ECG of 30-DEC-2022 06:16, Inverted T waves have replaced nonspecific T wave abnormality in Anterior leads QT has lengthened Confirmed by Fany Mohr MD ([id number]) on 12/31/2022 1:07:24 PM [facility] Fany Mohr MD - 12/31/2022 Sinus bradycardia T wave abnormality, consider lateral ischemia Abnormal ECG When compared with ECG of 30-DEC-2022 06:16, Inverted T waves have replaced nonspecific T wave abnormality in Anterior leads QT has lengthened Confirmed by Fany Mohr MD ([id number]) on 12/31/2022 1:07:24 PM [facility] Work Phone: [facility] Work Phone: EKG Rhythm Stripon [address] [facility] Lipid Panelon 12-31-2022 Cholesterol [Mass/Vol] 103 mg/dL NINF - 200 mg/dL [facility] Comment on above: Cholesterol Guidelines: <200 Desirable 200-240 Borderline >240 Undesirable Cholesterol in HDL [Mass/Vol] 44 mg/dL 40 - PINF mg/dL [facility] Comment on above: HDL Guidelines: <40 Undesirable 40-59 Borderline >59 Desirable Cholesterol in LDL [Mass/Vol] 46 mg/dL 0 - 130 mg/dL [facility] Comment on above: LDL Guidelines: <100 Desirable 100-129 Near to/above Desirable 130-159 Borderline >159 Undesirable Direct (measured) LDL and calculated LDL are not interchangeable tests. Cholesterol.total/Ch olesterol in HDL [Mass ratio] 2.3 {ratio} NINF - 5 [facility] Triglyceride [Mass/Vol] 67 mg/dL NINF - 150 mg/dL [facility] Comment on above: Triglyceride Guidelines: <150 Desirable 150-199 Borderline 200-499 High >499 Very high Based on AHA Guidelines for fasting triglyceride, July 2012. [facility] Lipid Profileon 12-31-2022 Cholesterol [Mass/Vol] 103 mg/dL Normal <200 [facility] Comment on above: Result Comment: Cholesterol Guidelines: <200 Desirable 200-240 Borderline >240 Undesirable Performed By: #### L IPR #### [address] [address] Director Of Recruitment: Marshall Paulino MD Cholesterol in HDL [Mass/Vol] 44 mg/dL Normal >40 [facility] Comment on above: Result Comment: HDL Guidelines: <40 Undesirable 40-59 Borderline >59 Desirable Performed By: #### L IPR #### [address] [address] Director Of Recruitment: Marshall Paulino MD Cholesterol in LDL [Mass/Vol] 46 mg/dL Normal 0-130 [facility] Comment on above: Result Comment: LDL Guidelines: <100 Desirable 100-129 Near to/above Desirable 130-159 Borderline >159 Undesirable Direct (measured) LDL and calculated LDL are not interchangeable tests. Performed By: #### L IPR #### [address] [address] Director Of Recruitment: Marshall Paulino MD Cholesterol.total/Ch olesterol in HDL [Mass ratio] 2.3 {ratio} Normal <5 [facility] Comment on above: Performed By: #### L IPR #### [address] [address] Director Of Recruitment: Marshall Paulino MD Triglyceride [Mass/Vol] 67 mg/dL Normal <150 [facility] Comment on above: Result Comment: Triglyceride Guidelines: <150 Desirable 150-199 Borderline 200-499 High >499 Very high Based on AHA Guidelines for fasting triglyceride, July 2012. Performed By: #### L IPR #### [address] [address] Director Of Recruitment: Marshall Paulino MD Resp Viral Panelon 3 Adenovirus Not detected Normal [facility] Comment on above: Performed By: #### L IPR #### [address] [address] Director Of Recruitment: Marshall Paulino MD Bordet.parapertussis Not detected Normal [facility] Comment on above: Performed By: #### L IPR #### [facility] [place] [address] Director Of Recruitment: MD Kat Martintella pertussis Not detected Normal [facility] Comment on above: Performed By: #### L IPR #### [facility] [address] [place] [address] Director Of Recruitment: Marshall Paulino MD Chlamyd.pneumoniae Not detected Normal [facility] Comment on above: Performed By: #### L IPR #### [facility] [address] [place] [address] Director Of Recruitment: Marshall Paulino MD Coronavirus 229E Not detected [facility] Comment on above: Performed By: #### L IPR #### [facility] [address] [place] [address] Director Of Recruitment: Marshall Paulino MD Coronavirus HKU1 Not detected Normal [facility] Comment on above: Performed By: #### L IPR #### [facility] [address] [place] [address] Director Of Recruitment: Marshall Paulino MD Coronavirus NL63 Not detected [facility] Comment on above: Performed By: #### L IPR #### [facility] [address] [place] [address] Director Of Recruitment: Marshall Paulino MD Coronavirus OC43 Not detected Normal [facility] Comment on above: Performed By: #### L IPR #### [facility] [address] [place] [address] Director Of Recruitment: Marshall Paulino MD Human Metapneumo Not detected Normal [facility] Comment on above: Performed By: #### L IPR #### [facility] [address] [place] [address] Director Of Recruitment: Marshall Paulino MD Influenza A Not detected Normal [facility] Comment on above: Performed By: #### L IPR #### [address] [address] Director Of Recruitment: Marshall Paulino MD Influenza B Not detected Normal [facility] Comment on above: Performed By: #### L IPR #### [address] [address] Director Of Recruitment: Marshall Paulino MD Mycoplas.pneumoniae Not detected Normal [facility] Comment on above: Result Comment: Perf ormed by multiplexed nucleic acid assay. Performed By: #### L IPR #### [address] [address] Director Of Recruitment: Marshall Paulino MD Parainfluenza 1 Not detected Normal [facility] Comment on above: Performed By: #### L IPR #### [facility] [address] [place] [address] Director Of Recruitment: Marshall Paulino MD Parainfluenza 2 Not detected [facility] Comment on above: Performed By: #### L IPR #### [address] [address] Director Of Recruitment: Marshall Paulino MD Parainfluenza 3 Not detected Normal [facility] Comment on above: Performed By: #### L IPR #### [facility] [address] [place] [address] Director Of Recruitment: Marshall Paulino MD Parainfluenza 4 Not detected [facility] Comment on above: Performed By: #### L IPR #### [facility] [address] [place] [address] Director Of Recruitment: Marshall Paulino MD Resp Syncytial Virus Not detected Normal [facility] Comment on above: Performed By: #### L IPR #### [facility] [address] [place] [address] Director Of Recruitment: Marshall Paulino MD Rhino/Enterovirus Not detected Normal [facility] Comment on above: Performed By: #### L IPR #### [facility] [address] [place] [address] Director Of Recruitment: Marshall Paulino MD SARS-CoV-2 (COVID-19) RNA DAHLIA+probe Ql (Unsp spec) Not detected Normal [facility] Comment on above: Performed By: #### L IPR #### [facility] [address] [place] [address] Director Of Recruitment: Marshall Paulino MD Respiratory Panel, Molecular , with COVID-19 (Restricted: peds pts or suitable admitted adults)on 12-31-2022 Adenovirus PCR Not detected Not Detected [facility] B. parapertussis [id number] DNA DAHLIA+non-probe Ql (Nph) Not detected Not Detected [facility] B. pertussis DNA DAHLIA+probe Ql (Unsp spec) Not detected Not Detected [facility] Chlamydia pneumoniae By PCR Not detected Not Detected [facility] Coronavirus 229E PCR Not detected Not Detected [facility] Coronavirus HKU1 PCR Not detected Not Detected [facility] Coronavirus NL63 PCR Not detected Not Detected [facility] Coronavirus OC43 PCR Not detected Not Detected [facility] FLUAV RNA DAHLIA+non-probe Ql (Nph) Not detected Not Detected [facility] FLUBV RNA DAHLIA+non-probe Ql (Nph) Not detected Not Detected [facility] Human Metapneumovirus PCR Not detected Not Detected [facility] Mycoplasma pneumo by PCR Not detected Not Detected [facility] Comment on above: Performed by multipl exed nucleic acid assay. Parainfluenza 1 PCR Not detected Not Detected [facility] Parainfluenza 2 PCR Not detected Not Detected [facility] Parainfluenza 3 PCR Not detected Not Detected [facility] Parainfluenza 4 PCR Not detected Not Detected [facility] Resp Syncytial Virus PCR Not detected Not Detected [facility] Rhino/Enterovirus PCR Not detected Not Detected [facility] SARS-CoV-2 (COVID-19) RNA DAHLIA+non-probe Ql (Nph) Not detected Not Detected [facility] Specimen Description .NASOPHARYNGEAL SWAB [facility] Troponinon 12-31-2022 Troponin, High Sens 18 ng/L Normal 0-22 [facility] Comment on above: Result Comment: High Sensitivity Troponin values cannot be compared with other Troponin methodologies. Performed By: #### T ROPI, CDP, BMPX #### [facility] [address] [address] Director Of Recruitment: Luis Carlos Del Castillo MD #### GLYHGB #### [address] [id number] Director Of Recruitment: Marshall Paulino MD Troponin I.cardiac DL <= 0.01 ng/mL [Mass/Vol] 18 ng/L 0 - 22 ng/L [facility] Comment on above: High Sensitivity Tro ponin values cannot be compared with other Troponin methodologies. [facility] Brain Natri. Peptideon 12-30 Natriuretic peptide B (Bld) [Mass/Vol] 308 pg/mL High <300 [facility] Comment on above: Result Comment: An age-independent cutoff point of 300 pg/ml has a 98% negative predictive value excluding acute heart failure. Performed By: #### B TURFGRASS TECHNICIAN #### [facility] [address] [address] Director Of Recruitment: Luis Carlos Del Castillo MD Brain Natriuretic Peptideon 12-30-2022 Interpretation and review of laboratory results Abnormal [facility] Natriuretic peptide B (Bld) [Mass/Vol] 308 pg/mL High NINF - 300 pg/mL [facility] Comment on above: An age-independent cutoff point of 300 pg/ml has a 98% negative predictive value excluding acute heart failure. [facility] CBC with Auto Differentialon 12-30-2022 Absolute Eos # 0.07 [facility] Absolute Immature Granulocyte 0.04 [facility] Absolute Lymph # 1.[address] [facility] Absolute Desoto # 0.[address] [facility] Basophils (Bld) [#/Vol] 0.06 10*3/uL [facility] Basophils/100 WBC (Bld) 1 % 0 - 2 % [facility] Eosinophils/100 WBC (Bld) 1 % 1 - 4 % [facility] Hematocrit (Bld) [Volume fraction] 39.6 % Low 40.7 - 50.3 % [facility] Hemoglobin (Bld) [Mass/Vol] 13.8 g/dL 13.0 - 17.0 g/dL [facility] Immature granulocytes/100 WBC (Bld) 0 % 0 [facility] Interpretation and review of laboratory results Abnormal [facility] Lymphocytes/100 WBC (Bld) 18 % Low 24 - 43 % [facility] MCH (RBC) [Entitic mass] 31.8 pg 25.2 - 33.5 pg [facility] MCHC (RBC) [Mass/Vol] 34.8 g/dL 28.4 - 34.8 g/dL [facility] MCV (RBC) [Entitic vol] 91.2 fL 82.6 - 102.9 fL [facility] Monocytes/100 WBC (Bld) 9 % 3 - 12 % [facility] NRBC Automated 0.0 0.0 per 100 WBC [facility] Platelet distribution width (Bld) [Ratio] 13.5 % 11.8 - 14.4 % [facility] Platelet mean volume (Bld) [Entitic vol] 9.9 fL 8.1 - 13.5 fL [facility] Platelets (Bld) [#/Vol] 189 10*3/uL [facility] RBC (Bld) [#/Vol] 4.34 10*6/uL 4.21 - 5.77 m/uL [facility] Segmented neutrophils/100 WBC (Bld) 71 % High 36 - 65 % [facility] Segs Absolute 7.15 [facility] WBC (Bld) [#/Vol] 10.1 10*3/uL [facility] CBC with Diffon 12-30-2022 Abs. Basophil 0.06 k/uL Normal 0.00-0.20 [facility] Comment on above: Performed By: #### Ileana ALONZO CP, CDP #### [facility] [address] [place], [place] [id number] Director Of Recruitment: Luis Carlos Del Castillo MD Abs.Imm.Granulocyte 0.04 k/uL Normal 0.00-0.30 [facility] Comment on above: Performed By: #### Ileana ALONZO CP, CDP #### [facility] [address] [place], [facility]83 Director Of Recruitment: Luis Carlos Del Castillo MD Abs.Neutrophil (Seg) 7.15 k/uL Normal 1.50-8.10 [facility] Comment on above: Performed By: #### Ileana ALONZO CP, CDP #### [facility] [address] [place], [place] [address] Director Of Recruitment: Luis Carlos Del Castillo MD Basophils/100 WBC (Bld) 1 % Normal 0-2 [facility] Comment on above: Performed By: #### Ileana ALONZO CP, CDP #### [address] [place], [facility]83 Director Of Recruitment: Luis Carlos Del Castillo MD Eosinophils (Bld) [#/Vol] 0.07 10*3/uL Normal 0.00-0.44 [facility] Comment on above: Performed By: #### Ileana ALONZO CP, CDP #### [facility] [address] [place], [facility]83 Director Of Recruitment: Luis Carlos Del Castillo MD Eosinophils/100 WBC (Bld) 1 % Normal 1-4 [facility] Comment on above: Performed By: #### Ileana ALONZO CP, CDP #### [facility] [address] [place], [facility]83 Director Of Recruitment: Luis Carlos Del Castillo MD Erythrocyte distribution width (RBC) [Ratio] 13.5 % Normal 11.8-14.4 [facility] Comment on above: Performed By: #### Ileana ALONZO CP, CDP #### [facility] [address] [place] [address] [place]. [place], [place] [id number] Director Of Recruitment: Luis Carlos Del Castillo MD Hematocrit (Bld) [Volume fraction] 39.6 % Low 40.7-50.3 [facility] Comment on above: Performed By: #### Ileana ALONZO CP, CDP #### [address] [place] [id number] Director Of Recruitment: Luis Carlos Del Castillo MD Hemoglobin (Bld) [Mass/Vol] 13.8 g/dL Normal 13.0-17.0 [facility] Comment on above: Performed By: #### Ileana ALONZO CP, CDP #### [address] [place], [facility]83 Director Of Recruitment: Luis Carlos Del Castillo MD Immature granulocytes/100 WBC (Bld) 0 % Normal 0 [facility] Comment on above: Performed By: #### Ileana ALONZO CP, CDP #### [address] [place] [id number] Director Of Recruitment: Luis Carlos Del Castillo MD Lymphocytes (Bld) [#/Vol] 1.83 10*3/uL Normal 1.10-3.70 [facility] Comment on above: Performed By: #### Ileana ALONZO CP, CDP #### [facility] [address] [place] [address] Dr. [place], [facility]83 Director Of Recruitment: Luis Carlos Del Castillo MD Lymphocytes/100 WBC (Bld) 18 % Low 24-43 [facility] Comment on above: Performed By: #### Ileana ALONZO CP, CDP #### [facility] [address] [place] [address] Dr. [place], [id number] Director Of Recruitment: Luis Carlos Del Castillo MD MCH (RBC) [Entitic mass] 31.8 pg Normal 25.2-33.5 [facility] Comment on above: Performed By: #### Ileana ALONZO CP, CDP #### [facility] [address] [place] [address] Director Of Recruitment: Luis Carlos Del Castillo MD MCHC (RBC) [Mass/Vol] 34.8 g/dL Normal 28.4-34.8 [facility] Comment on above: Performed By: #### Ileana ALONZO CP, CDP #### [facility] [address] [place] [address] Director Of Recruitment: Luis Carlos Del Castillo MD MCV (RBC) [Entitic vol] 91.2 fL Normal 82.6-102.9 [facility] Comment on above: Performed By: #### Ileana ALONZO CP, CDP #### [facility] [address] [place], [place] [id number] Director Of Recruitment: Luis Carlos Del Castillo MD Monocytes (Bld) [#/Vol] 0.91 10*3/uL Normal 0.10-1.20 [facility] Comment on above: Performed By: #### Ileana ALONZO CP, CDP #### [facility] [address] [place], [place] [id number] Director Of Recruitment: Luis Carlos Del Castillo MD Monocytes/100 WBC (Bld) 9 % Normal 3-12 [facility] Comment on above: Performed By: #### Ileana ALONZO CP, CDP #### [facility] [address] [address] Director Of Recruitment: Luis Carlos Del Castillo MD Neutrophil (Seg) 71 % High 36-65 [facility] Comment on above: Performed By: #### Ileana ALONZO CP, CDP #### [facility] [address] [address] Director Of Recruitment: Luis Carlos Del Castillo MD NRBC Automated 0.0 per 100 WBC Normal 0.0 [facility] Comment on above: Performed By: #### Ileana ALONZO CP, CDP #### [facility] [address] [place], [place] [id number] Director Of Recruitment: Luis Carlos Del Castillo MD Platelet mean volume (Bld) [Entitic vol] 9.9 fL Normal 8.1-13.5 [facility] Comment on above: Performed By: #### Ileana ALONZO CP, CDP #### [facility] [address] [place] [address] [place] [address] Director Of Recruitment: Luis Carlos Del Castillo MD Platelets (Bld) [#/Vol] 189 10*3/uL Normal 138-453 [facility] Comment on above: Performed By: #### Ileana ALONZO CP, CDP #### [address] [place] [address] Director Of Recruitment: Luis Carlos Del Castillo MD RBC (Bld) [#/Vol] 4.34 10*6/uL Normal 4.21-5.77 [facility] Comment on above: Performed By: #### Ileana ALONZO CP, CDP #### [address] [place], [place] [id number] Director Of Recruitment: Luis Carlos Del Castillo MD WBC (Bld) [#/Vol] 10.1 10*3/uL Normal 3.5-11.3 [facility] Comment on above: Performed By: #### Ileana ALONZO CP, CDP #### [facility] [address] [place] [address] [place], [place] [id number] Director Of Recruitment: Luis Carlos Del Castillo MD COVID-19, Rapidon 12-30-2022 SARS-CoV-2 (COVID-19) RdRp gene DAHLIA+probe Ql (Resp) Not detected Not Detected [facility] Comment on above: Rapid NAAT: The specimen [...] management decisions. Fact sheet for Healthcare Providers: https://www.fda.gov/media/380010/download Fact sheet for Patients: https://www.fda.gov/media/881636/download Methodology: Isothermal Nucleic Acid Amplification Specimen Description .NASOPHARYNGEAL SWAB [facility] CT CHEST PULMONARY EMBOLISM W [...] Dov Love MD 12/30/22 Final result Normal [facility] Negative for acute pulmonary embolus Right-sided aortic arch Bilateral patchy pulmonary infiltrates which are predominantly peripheral which may be related atypical infectious etiology. Large hiatal hernia and wall thickening in the distal esophagus. An esophagram or endoscopy may be helpful for further evaluation if clinically indicated. [facility] EXAMINATION: CTA OF THE CHEST 12/30/2022 [...] No acute bone or soft tissue abnormality. [facility] Dov Love MD - 12/30/2022 EXAMINATION: [...] for further evaluation if clinically indicated. [facility] [employer] Phone: Radiology Study observation (narrative) [facility] Flud Phone: CT CHEST PULMONARY EMBOLISM W CONTRASTOrdered By: Dov Love on 12-30-2022 [facility] [employer] Phone: Comp Metabolic Profon 2022 Albumin [Mass/Vol] 3.9 g/dL Normal 3.5-5.2 [facility] Comment on above: Performed By: #### T NATHAN ALONZO, CDP #### [facility] [address] [address] Director Of Recruitment: Luis Carlos Del Castillo MD Albumin/Glob Ratio 1.3 Normal 1.0-2.5 [facility] Comment on above: Performed By: #### T NATHAN ALONZO, CDP #### [facility] [address] [address] Director Of Recruitment: Luis Carlos Del Castillo MD Alkaline Phos 102 U/L Normal 40-129 [facility] Comment on above: Performed By: #### T NATHAN ALONZO, CDP #### [facility] [address] [address] Director Of Recruitment: Luis Carlos Del Castillo MD ALT [Catalytic activity/Vol] 19 U/L Normal 5-41 [facility] Comment on above: Performed By: #### T NATHAN ALONZO, CDP #### [facility] [address] [place], [place] [phone] Director Of Recruitment: Luis Carlos Del Castillo MD Anion gap [Moles/Vol] 10 mmol/L Normal 9-17 [facility] Comment on above: Performed By: #### T NATHAN ALONZO, CDP #### [facility] [address] [place], [place] [phone] Director Of Recruitment: Luis Carlos Del Castillo MD AST [Catalytic activity/Vol] 16 U/L Normal <40 [facility] Comment on above: Performed By: #### Ileana ALONZO CP, CDP #### [facility] [address] [place], [place] [id number] Director Of Recruitment: Luis Carlos Del Castillo MD Bilirubin [Mass/Vol] 0.8 mg/dL Normal 0.3-1.2 [facility] Comment on above: Performed By: #### Ileana ALONZO CP, CDP #### [facility] [address] [place], [place] [phone] Director Of Recruitment: Luis Carlos Del Castillo MD BUN/CRE Ratio 25 High 9-20 [facility] Comment on above: Performed By: #### Ileana ALONZO CP, CDP #### [facility] [address] [place], [place] [id number] Director Of Recruitment: Luis Carlos Del Castillo MD Calcium [Mass/Vol] 9.5 mg/dL Normal 8.6-10.4 [facility] Comment on above: Performed By: #### Ileana ALONZO CP, CDP #### [facility] [address] [place], [place] [id number] Director Of Recruitment: Luis Carlos Del Castillo MD Chloride [Moles/Vol] 105 mmol/L Normal 98-107 [facility] Comment on above: Performed By: #### Ileana ALONZO CP, CDP #### [facility] [address] [address] Director Of Recruitment: Luis Carlos Del Castillo MD CO2 [Moles/Vol] 24 mmol/L Normal 20-31 [facility] Comment on above: Performed By: #### Ileana ALONZO CP, CDP #### [facility] [address] [address] Director Of Recruitment: Luis Carlos Del Castillo MD Creatinine [Mass/Vol] 0.63 mg/dL Low 0.70-1.20 [facility] Comment on above: Performed By: #### Ileana ALONZO CP, CDP #### [facility] [address] [address] Director Of Recruitment: Luis Carlos Del Castillo MD GFR/1.73 sq M.predicted among non-blacks MDRD (S/P/Bld) [Vol rate/Area] mL/min/{1.73_m2} Normal >60 [facility] Comment on above: Result Comment: [...] Ileana ALONZO CP, CDP #### [facility] [address] [address] Director Of Recruitment: Luis Carlos Del Castillo MD Glucose [Mass/Vol] 113 mg/dL High 70-99 [facility] Comment on above: Performed By: #### Ileana ALONZO CP, CDP #### [facility] [address] [address] Director Of Recruitment: Luis Carlos Del Castillo MD Potassium [Moles/Vol] 3.9 mmol/L Normal 3.7-5.3 [facility] Comment on above: Performed By: #### T NATHAN ALONZO, CDP #### [facility] [address] [address] Director Of Recruitment: Luis Carlos Del Castillo MD Protein [Mass/Vol] 7.0 g/dL Normal 6.4-8.3 [facility] Comment on above: Performed By: #### Ileana ALONZO CP, CDP #### [facility] [address] [place], [place] [phone] Director Of Recruitment: Luis Carlos Del Castillo MD Sodium [Moles/Vol] 139 mmol/L Normal 135-144 [facility] Comment on above: Performed By: #### Ileana ALONZO CP, CDP #### [facility] [address] [address] Director Of Recruitment: Luis Carlos Del Castillo MD Urea nitrogen [Mass/Vol] 16 mg/dL Normal 8-23 [facility] Comment on above: Performed By: #### Ileana ALONZO CP, CDP #### [facility] [address] [address] Director Of Recruitment: Luis Carlos Del Castillo MD [facility] Metabolic [facility] 12-30-2022 Albumin [Mass/Vol] 3.9 g/dL 3.5 - 5.2 g/dL [facility] Albumin/Globulin [Mass ratio] 1.3 {ratio} 1.0 - 2.5 [facility] ALP [Catalytic activity/Vol] 102 U/L 40 - 129 U/L [facility] ALT [Catalytic activity/Vol] 19 U/L 5 - 41 U/L [facility] Anion gap [Moles/Vol] 10 mmol/L 9 - 17 mmol/L [facility] AST [Catalytic activity/Vol] 16 U/L NINF - 40 U/L [facility] Bilirubin [Mass/Vol] 0.8 mg/dL 0.3 - 1 .2 mg/dL [facility] Calcium [Mass/Vol] 9.5 mg/dL 8.6 - 10. 4 mg/dL [facility] Chloride [Moles/Vol] 105 mmol/L 98 - 10 7 mmol/L [facility] CO2 [Moles/Vol] 24 mmol/L 20 - 31 mmol/L [facility] Creatinine [Mass/Vol] 0.63 mg/dL Low 0.70 - 1.20 mg/dL [facility] GFR/1.73 sq M.predicted MDRD (S/P/Bld) [Vol rate/Area] - PINF [facility] Comment on above: These results are [...] 113 mg/dL High 70 - 99 mg/dL [facility] Interpretation and review of laboratory results Abnormal [facility] Potassium [Moles/Vol] 3.9 mmol/L 3.7 - 5.3 mmol/L [facility] Protein [Mass/Vol] 7.0 g/dL 6.4 - 8.3 g/dL [facility] Sodium [Moles/Vol] 139 mmol/L 135 - 144 mmol/L [facility] Urea nitrogen [Mass/Vol] 16 mg/dL 8 - 23 mg/dL [facility] Urea nitrogen/Creatinine (Bld) [Mass ratio] 25 High 9 - 20 [facility] EKG 12 Leadon 12-30-2022 Atrial Rate 51 BPM [facility] [employer] Work Phone: P [place] 39 degrees [facility] Work Phone: P-R Interval 146 ms [facility] Work Phone: Q-T Interval 424 ms [facility] Work Phone: QRS Duration 72 ms [facility] Work Phone: QTc Calculation (Bazett) 390 [address] [facility] [employer] Phone: R [place] 56 degrees Apparent Phone: T [place] 73 degrees Apparent Phone: Ventricular Rate 51 BPM [facility] [employer] Phone: Poor data qualit y, interpretation may be adversely affected Sinus bradycardia Nonspecific ST and T wave abnormality Abnormal ECG Confirmed by Fany Mohr MD ([id number]) on 12/30/2022 8:21:48 AM [facility] Fany Mohr MD - 12/30/2022 Poor data quality, interpretation may be adversely affected Sinus bradycardia Nonspecific ST and T wave abnormality Abnormal ECG Confirmed by Fany Mohr MD ([id number]) on 12/30/2022 8:21:48 AM [employer] Work Phone: [facility] [employer] Work Phone: EKG Rhythm Stripon 3 [facility] [employer] Echocardiogram complete 2D w ith doppler with coloron 12-30-2022 Left ventricular Ejection fraction 55 Apparent Phone: LVEF MODALITY ECHO Apparent Phone: [facility] Transthoracic Echocardiography Report (TTE) Patient Name ALVA Date of Study 12/30/2022 NOEL Vaca Date of 1960 Gender Male Age 62 year(s) Race Room Number 0327 Height: 66 inch, 167.64 cm Corporate ID [id number] Weight: 160 pounds, 72.6 kg # Patient Acct [id number] BSA: 1.82 m^2 BMI: 25.82 kg/m^2 # MR # [id number] Electrical And Instrument Mechanic Keke Tineo Interpreting Physician Fany Mohr Fellow Referring Nurse Cece Villalobos, Practitioner CORN SHELLER Interpreting Referring Physician Fellow Type of Study TTE procedure:2D Echocardiogram, M-Mode, Doppler, Color Doppler. Procedure Date Date: 12/30/2022 Start: 02:20 PM Study Location: [facility] Indications:Chest pain. History / Tech. [...] Result, Unknown Provider - 12/30/2022 [facility] Transthoracic Echocardiography Report (TTE) Patient Name ABBY Date of Study 12/30/2022 NOEL Vaca Date of 1960 Gender Male Age 62 year(s) Race Room Number 0327 Height: 66 inch, 167.64 cm Corporate ID [id number] Weight: 160 pounds, 72.6 kg # Patient Acct [id number] BSA: 1.82 m^2 BMI: 25.82 kg/m^2 # MR # [id number] Electrical And Instrument Mechanic Keke Tineo Interpreting Physician Fany Mohr Fellow Referring Nurse Cece Villalobos, Practitioner SREEDHAR Interpreting Referring Physician Fellow Type of Study TTE procedure:2D Echocardiogram, M-Mode, Doppler, Color Doppler. Procedure Date Date: 12/30/2022 Start: 02:20 PM Study Location: [facility] Indications:Chest pain. History / Tech. [...] E' velocity:0.12 m/s Lateral Wall E/E':6.28 [facility] [employer] Phone: [facility] [employer] Phone: Resp Viral Panelon 3 Source: .NASOPHARYNGEAL SWAB Normal [facility] Comment on above: Performed By: #### L IPR #### [facility] [address] [place] [address] Director Of Recruitment: Marshall Paulino MD [id number] 12-30-2022 SARS-CoV-2 (COVID-19) RNA DAHLIA+probe Ql (Unsp spec) Not detected Normal [facility] Comment on above: Result Comment: Rapid [...] management decisions. Fact sheet for Healthcare Providers: https://www.fda.gov/media/414047/download Fact sheet for Patients: https://www.fda.gov/media/775823/download Methodology: Isothermal Nucleic Acid Amplification Performed By: #### L IPR #### [facility] [address] [place] [address] Director Of Recruitment: Marshall Paulino MD Troponinon 12-30-2022 Troponin, High Sens 17 ng/L Normal 0-22 [facility] Comment on above: Result Comment: High Sensitivity Troponin values cannot be compared with other Troponin methodologies. Performed By: #### L IPR #### [facility] [address] [place] [address] Director Of Recruitment: Marshall Paulino MD Troponin, High Sens 19 ng/L Normal 0-22 [facility] Comment on above: Result Comment: High Sensitivity Troponin values cannot be compared with other Troponin methodologies. Performed By: #### T NATHAN ALONZO, CDP #### [facility] [address] [place], [place] [id number] Director Of Recruitment: Luis Carlos Del Castillo MD Troponin I.cardiac DL <= 0.01 ng/mL [Mass/Vol] 17 ng/L 0 - 22 ng/L [facility] Comment on above: High Sensitivity Tro ponin values cannot be compared with other Troponin methodologies. [facility] Troponin I.cardiac DL <= 0.01 ng/mL [Mass/Vol] 19 ng/L 0 - 22 ng/L [facility] Comment on above: High Sensitivity Tro ponin values cannot be compared with other Troponin methodologies. [facility] XR CHEST PORTABLEon 12-31-19 XR CHEST PORTABLE [...] Sherrill Parmar MD 12/30/22 Final result Normal [facility] There is a new left midlung opacity and adjacent mildly prominent interstitial markings, suggestive of pneumonia. Recommend imaging follow-up to resolution to exclude an underlying lesion. [facility] EXAMINATION: ONE XRAY VIEW OF THE CHEST 12/30/2022 6:43 am COMPARISON: 03/25/2022 chest radiograph HISTORY: ORDERING SYSTEM PROVIDED HISTORY: chest pain TECHNOLOGIST PROVIDED HISTORY: chest pain FINDINGS: The cardiomediastinal silhouette is within normal limits of size. There is a new left midlung opacities suggestive of pneumonia. Mildly prominent bilateral interstitial markings. No pleural effusion at or pneumothorax. No acute osseous abnormality. [facility] Sherrill Parmar MD - 12/30/2022 EXAMINATION: [...] to resolution to exclude an underlying lesion. Apparent Phone: Radiology Study observation (narrative) Apparent Phone: XR CHEST PORTABLEOrdered By: Sherrill Parmar on 12-30-[address] [facility] [employer] Phone: XR LSPINE MIN 4 VIEWSon 12-04 [...] PABLO CHAMBERS Date: 2022-12-18 13:59 Normal The MRI LSPINE WO CONon 11-06-19 23 MRI [...] PABLO CHAMBERS Date: 2022-11-06 15:08 Normal The TESTOSTERONE, TOTALon 2021 Testosterone [Mass/Vol] 279 ng/dL Normal 264-916 [facility] Comment on above: Result Comment: Adul t male reference interval is based on a population of healthy nonobese males (BMI <30) between 19 and 39 years old. axel [place].al. JCEM 2017,102;0757-0880. PMID: [id number]. Performed By: #### H GBHCT #### Laboratory [address] [place] [address] Dr. Raimundo Estrada CBC AUTO DIFFon 09-11-2022 BASO # 0.1 103/ul Normal 0.0-0.1 [facility] Comment on above: Performed By: #### H GBHCT #### Laboratory [address] [place] [address] Dr. Raimundo Estrada Basophils/100 WBC (Bld) 0.6 % Normal 0.2-2.0 [facility] Comment on above: Performed By: #### H GBHCT #### Laboratory [address] [place] [address] Dr. Raimundo Estrada EO # 0.2 103/ul Normal 0.0-0.7 [facility] Comment on above: Performed By: #### H GBHCT #### Laboratory [address] [place] [address] Dr. Raimundo Estrada Eosinophils/100 WBC (Bld) 2.4 % Normal 0.9-7.0 [facility] Comment on above: Performed By: #### H GBHCT #### Laboratory [address] [place] [address] Dr. Raimundo Estrada Erythrocyte distribution width (RBC) [Ratio] 14.1 % Normal 11.0-15.0 [facility] Comment on above: Performed By: #### H GBHCT #### Laboratory [address] [place] [address] Dr. Raimundo Estrada Hematocrit (Bld) [Volume fraction] 40.2 % Critically low 42.0-54.0 [facility] Comment on above: Performed By: #### H GBHCT #### Laboratory [address] [place] [address] Dr. Raimundo Estrada Hemoglobin (Bld) [Mass/Vol] 13.4 g/dL Critically low 14.0-18.0 [facility] Comment on above: Performed By: #### H GBHCT #### Laboratory [address] [place] [address] Dr. Raimundo Estrada IG # 0.03 10e3/ul Normal 0.00-0.03 [facility] Comment on above: Performed By: #### H GBHCT #### Laboratory [address] [place] [address] Dr. Raimundo Estrada IG % 0.4 % Normal 0.0-0.5 [facility] Comment on above: Performed By: #### H GBHCT #### Laboratory [address] [place] [address] Dr. Raimundo Estrada LYMPH # 1.7 103/ul Normal 1.2-3.8 [facility] Comment on above: Performed By: #### H GBHCT #### Laboratory [address] [place] [address] Dr. Raiumndo Estrada Lymphocytes/100 WBC (Bld) 20.8 % Normal 20.5-60.0 [facility] Comment on above: Performed By: #### H GBHCT #### Laboratory [address] [place] [address] Dr. Raimundo Estrada MANUAL DIFF REQ NO Normal [facility] Comment on above: Performed By: #### H GBHCT #### Laboratory [address] [place] [address] Dr. Raimundo Estrada MCH (RBC) [Entitic mass] 31.8 pg Normal 25.9-34.0 [facility] Comment on above: Performed By: #### H GBHCT #### Laboratory [address] [place] [address] Dr. Raimundo Estrada MCHC (RBC) [Mass/Vol] 33.3 g/dL Normal 29.9-35.2 [facility] Comment on above: Performed By: #### H GBHCT #### Laboratory [address] [place] [address] Dr. Raimundo Estrada MCV (RBC) [Entitic vol] 95.3 fL Critically high 80.0-94.0 [facility] Comment on above: Performed By: #### H GBHCT #### Laboratory [address] [address] [address] Raimundo Estrada MONO # 0.8 103/ul Normal 0.3-0.8 [facility] Comment on above: Performed By: #### H GBHCT #### Laboratory [address] [address] [address] Raimundo Estrada Monocytes/100 WBC (Bld) 9.7 % Normal 1.7-12.0 [facility] Comment on above: Performed By: #### H GBHCT #### Laboratory [address] [place] [address] Dr. Raimundo Estrada NEUT # 5.2 103/ul Normal 1.4-6.5 [facility] Comment on above: Performed By: #### H GBHCT #### Laboratory [address] [place] [address] Dr. Raimundo Estrada Neutrophils/100 WBC (Bld) 66.1 % Normal 43.0-75.0 [facility] Comment on above: Performed By: #### H GBHCT #### Laboratory [address] [place] [address] Dr. Raimundo Estrada Platelet mean volume (Bld) [Entitic vol] 10.1 fL Normal 9.5-13.5 [facility] Comment on above: Performed By: #### H GBHCT #### Laboratory [address] [place] [address] Dr. Raimundo Estrada PLT 189 103/ul Normal 150-450 The Comment on above: Performed By: #### H GBHCT #### Laboratory [address] [place] [address] Dr. Raimundo Estrada RBC 4.22 106/ul Critically low 4.70-6.10 [facility] Comment on above: Performed By: #### H GBHCT #### Laboratory [address] [place] [address] Dr. Raimundo Estrada WBC 7.9 103/ul Normal 4.0-11.0 [facility] Comment on above: Performed By: #### H GBHCT #### Laboratory [address] [place] [address] Dr. Raimundo Estrada FREE T3on 09-11-2022 FREE T3 2.85 pg/mlL Normal 2.18-3.98 [facility] Comment on above: Performed By: #### T SH, FT3, LIVER, BMP, LIPID #### Laboratory [address] [address] [address] Raimundo Estrada FREE T4on 09-11-2022 Free T4 [Mass/Vol] 0.85 ng/dL Normal 0.76-1.46 [facility] Comment on above: Performed By: #### H GBHCT #### Laboratory [address] [place] [address] Dr. Raimundo Estrada GLYCOHEMOGLOBIN A1Con 2021 ADA RECOMMENDATION SEE BELOW Normal [facility] Comment on above: Result Comment: ADA RECOMMENDED LIMIT 4.0 - 6.0 ADA THERAPEUTIC TARGET < 7.0 ACTION SUGGESTED > 7.0 Performed By: #### H GBHCT #### Laboratory [address] [place] [address] Dr. Raimundo Estrada Glucose [Mass/Vol] 111 mg/dL Normal [facility] Comment on above: Performed By: #### H GBHCT #### Laboratory [address] [place] [address] Dr. Raimundo Estrada HbA1c (Bld) [Mass fraction] 5.5 % Normal 4.5-6.2 [facility] Comment on above: Performed By: #### H GBHCT #### Laboratory [address] [place] [address] Dr. Raimundo Estrada LIPID PROFILEon 09-11-2022 CHOL-HDL RATIO NORM SEE BELOW Normal [facility] Comment on above: Result Comment: 3.3 - 4.4 LOW RISK 4.4 - 7.1 AVERAGE RISK 7.1 - 11.0 MODERATE RISK >11.0 HIGH RISK Performed By: #### T SH, FT3, LIVER, BMP, LIPID #### Laboratory [address] [address] [address] Raimundo Estrada Cholesterol [Mass/Vol] 129 mg/dL Normal <=200 [facility] Comment on above: Performed By: #### T SH, FT3, LIVER, BMP, LIPID #### Laboratory [address] [address] [address] Raimundo Estrada Cholesterol in HDL [Mass/Vol] 62 mg/dL Critically high 40-60 The Comment on above: Performed By: #### T SH, FT3, LIVER, BMP, LIPID #### Laboratory [address] [address] [address] Raimundo Estrada Cholesterol in LDL [Mass/Vol] 53.4 mg/dL Normal [facility] Comment on above: Performed By: #### T SH, FT3, LIVER, BMP, LIPID #### Laboratory [address] [address] [address] Raimundo Estrada Cholesterol.total/Ch olesterol in HDL [Mass ratio] 2.1 {ratio} Normal [facility] Comment on above: Performed By: #### T SH, FT3, LIVER, BMP, LIPID #### Laboratory [address] [address] [address] Raimundo Estrada HDL NORMAL > or = 60 mg/dl - LO W CARDIOVASCULAR RISK <40 mg/dl - HIGH CARDIOVASCULAR RISK Normal [facility] Comment on above: Performed By: #### T SH, FT3, LIVER, BMP, LIPID #### Laboratory [address] [address] [address] Raimundo Estrada LDL CALC NORMAL SEE BELOW Normal [facility] Comment on above: Result Comment: <100 mg/dl OPTIMAL 100 - 129 mg/dl NEAR OR ABOVE OPTIMAL 130 - 159 mg/dl BORDERLINE HIGH 160 - 189 mg/dl HIGH >190 mg/dl VERY HIGH Performed By: #### T SH, FT3, LIVER, BMP, LIPID #### Laboratory [address] [address] [address] Raimunod Estrada Triglyceride [Mass/Vol] 68 mg/dL Normal <=150 [facility] Comment on above: Performed By: #### T SH, FT3, LIVER, BMP, LIPID #### Laboratory [address] [place] [address] Dr. Raimundo Estrada VLDL CALC 13.6 mg/dL Normal [facility] Comment on above: Performed By: #### T SH, FT3, LIVER, BMP, LIPID #### Laboratory [address] [place] [address] Dr. Raimundo Estrada LIVER PROFILEon 09-11-2022 Albumin [Mass/Vol] 3.8 g/dL Normal 3.4-5.0 [facility] Comment on above: Performed By: #### T SH, FT3, LIVER, BMP, LIPID #### Laboratory [address] [place] [address] Dr. Raimundo Estrada Albumin/Globulin [Mass ratio] 1.0 {ratio} Normal [facility] Comment on above: Performed By: #### T SH, FT3, LIVER, BMP, LIPID #### Laboratory [address] [place] [address] Dr. Raimundo Estrada ALP [Catalytic activity/Vol] 103 U/L Normal 46-116 [facility] Comment on above: Performed By: #### T SH, FT3, LIVER, BMP, LIPID #### Laboratory [address] [place] [address] Dr. Raimundo Estrada ALT [Catalytic activity/Vol] 46 U/L Normal 16-63 [facility] Comment on above: Performed By: #### T SH, FT3, LIVER, BMP, LIPID #### Laboratory [address] [place] [address] Dr. Raimundo Estrada AST [Catalytic activity/Vol] 35 U/L Normal 15-37 [facility] Comment on above: Performed By: #### T SH, FT3, LIVER, BMP, LIPID #### Laboratory [address] [place] [address] Dr. Raimundo Estrada BILI, CONJUGATED 0.2 mg/dL Normal 0.0-0.[address] [facility] Comment on above: Performed By: #### T SH, FT3, LIVER, BMP, LIPID #### Laboratory [address] [place] [address] Dr. Raimundo Estrada Bilirubin [Mass/Vol] 0.7 mg/dL Normal 0.2-1.0 [facility] Comment on above: Performed By: #### T SH, FT3, LIVER, BMP, LIPID #### Laboratory [address] [place] [address] Dr. Raimundo Estrada Globulin (S) [Mass/Vol] 3.8 g/dL Normal [facility] Comment on above: Performed By: #### T SH, FT3, LIVER, BMP, LIPID #### Laboratory [address] [place] [address] Dr. Raimundo Estrada Protein [Mass/Vol] 7.6 g/dL Normal 6.4-8.2 [facility] Comment on above: Performed By: #### T SH, FT3, LIVER, BMP, LIPID #### Laboratory [address] [place] [address] Dr. Raimundo Estrada PROF CHEM 8 (BAS METB)on Anion gap [Moles/Vol] 13.9 mmol/L Normal [facility] Comment on above: Performed By: #### T SH, FT3, LIVER, BMP, LIPID #### Laboratory [address] [place] [address] Dr. Raimundo Estrada Calcium [Mass/Vol] 9.3 mg/dL Normal 8.5-10.1 [facility] Comment on above: Performed By: #### T SH, FT3, LIVER, BMP, LIPID #### Laboratory [address] [place] [address] Dr. Raimundo Estrada Chloride [Moles/Vol] 104 mmol/L Normal 98-107 The Comment on above: Performed By: #### T SH, FT3, LIVER, BMP, LIPID #### Laboratory [address] [place] [address] Dr. Raimundo Estrada CO2 [Moles/Vol] 28.6 mmol/L Normal 21.0-32.0 [facility] Comment on above: Performed By: #### T SH, FT3, LIVER, BMP, LIPID #### Laboratory [address] [address] [address] Raimundo Estrada Creatinine [Mass/Vol] 0.77 mg/dL Normal 0.70-1.30 [facility] Comment on above: Performed By: #### T SH, FT3, LIVER, BMP, LIPID #### Laboratory [address] [place] [address] Dr. Raimundo Estrada EGFR-AF CYMRO >60 Normal >=[address] [facility] Comment on above: Performed By: #### T SH, FT3, LIVER, BMP, LIPID #### Laboratory [address] [place] [address] Dr. Raimundo Estrada EGFR-NON AF CYMRO >60 Normal >=60 [facility] Comment on above: Performed By: #### T SH, FT3, LIVER, BMP, LIPID #### Laboratory [address] [place] [address] Dr. Raimundo Estrada Glucose [Mass/Vol] 90 mg/dL Normal 74-106 [facility] Comment on above: Performed By: #### T SH, FT3, LIVER, BMP, LIPID #### Laboratory [address] [place] [address] Dr. Raimundo Estrada Potassium [Moles/Vol] 4.5 mmol/L Normal 3.5-5.1 [facility] Comment on above: Performed By: #### T SH, FT3, LIVER, BMP, LIPID #### Laboratory [address] [place] [address] Dr. Raimundo Estrada Sodium [Moles/Vol] 142 mmol/L Normal 136-145 [facility] Comment on above: Performed By: #### T SH, FT3, LIVER, BMP, LIPID #### Laboratory [address] [place] [address] Dr. Raimundo Estrada Urea nitrogen [Mass/Vol] 22.0 mg/dL Critically high 7.0-18.0 [facility] Comment on above: Performed By: #### T SH, FT3, LIVER, BMP, LIPID #### Laboratory [address] [place], [place] [address] Dr. Raimundo Estrada Urea nitrogen/Creatinine [Mass ratio] 28.6 mg/mg Normal The Comment on above: Performed By: #### T SH, FT3, LIVER, BMP, LIPID #### Laboratory [address] [place], [place] [address] Dr. Raimundo Estrada TSHon 09-11-2022 TSH 1.375 uIU/mL Normal 0.358-3.74 0 [facility] Comment on above: Performed By: #### T SH, FT3, LIVER, BMP, LIPID #### Laboratory [address] [address] [address] Raimundo Estrada VITAMIN B12on 09-11-2022 Cobalamin (Vitamin B12) [Mass/Vol] 635.0 pg/mL Normal 193.0-986. 0 [facility] Comment on above: Performed By: #### L IPID #### Laboratory [address] [address] [address] Raimundo Estrada General Surgery Office/Clini c [...] History Ongoing Asthma BMI 25.0-25.9,adult CAD in [place] artery DDD (degenerative disc disease), lumbar Depression [...] Tab, 25 mg= 1 tab(s), Oral, BID Gallup 5/325 Tab, 1 tab(s), Oral, BID Protonix [...] Coronary artery disease: Mother and Father. Normal [facility] Comment on above: Result Comment: Elec [...] sigmoid polyp that was not retrieved. Normal [facility] Pathology Noteon 06-28-2022 Pathology Note [id number]#[id number]:[address] [facility] Outside Colonoscopyon 2021 Outside Colonoscopy [id number]#[id number]:[address] [facility] HEMOGLOBIN AND HEMATOCRITon 06-26-2022 Hematocrit (Bld) [Volume fraction] 44.2 % Normal 42.0-54.0 [facility] Comment on above: Performed By: #### H GBHCT #### Laboratory [address] [place] [address] Dr. Raimundo Estrada Hemoglobin (Bld) [Mass/Vol] 15.0 g/dL Normal 14.0-18.0 [facility] Comment on above: Performed By: #### H GBHCT #### Laboratory [address] [place] [address] Dr. Raimundo Estrada Lab Reportson 06-24-2022 Lab Reports [id number]#[id number]:[address] [facility] Covid-19 PCR (CVDTBH)on 06-06 SARS-CoV-2 (COVID-19) RNA DAHLIA+probe Ql (Unsp spec) Not detected Normal NOT DETECTED The Comment on above: Result Comment: This test is not yet approved or cleared by the [place] FDA. When there are no FDA-approved or cleared tests available, and other criteria are met, FDA can make tests available under an emergency access mechanism called an Emergency Use Authorization (EUA). The EUA for this test is supported by the Battery Tester of Health and Human Service's (HHS's) declaration [...] SARS-CoV-2. Performed By: #### H GBHCT #### Laboratory [address] [address] [address] Raimundo Estrada Consent for Procedure/Surger yon 06-03-2022 Consent for Procedure/Surgery [id number]#[id number]:[address] [facility] Pre-Certification Formon Pre-Certification Form [id number]#[id number]:127 [facility] Ambulatory Visit Summaryon 0 05-31-2022 Ambulatory Visit Summary NOEL ALVA Nola :1960 Visit Date:05/31/2022 Ambulatory Visit Instructions Your Diagnosis Epigastric pain Hematemesis Your Care Team Attending Physician - EMILY DRUMMOND, Julian Davis Primary Care Physician - MAGDA DRUMMOND, ROMARIO Referring Physician - ROMARIO MAN MD This Is Your Medications List pantoprazole (Protonix 40 mg Tab-DR) Contact prescribing physician if questions or concerns acetaminophen-hydrocodone (Gallup 5/325 Tab) albuterol (albuterol HFA 90 mcg/inh [...] Epigastric pain Hematemesis Refills: 3 Pickup at [facility] Unchanged acetaminophen-hydrocodone (Gallup 5/ 325 Tab) 1 Tablets By Mouth [...] if questions or concerns Pharmacy Information [facility]: [address] [place], [place] [id number] [phone] Allergies No Known Allergies No Known Medication Allergies Problems Ongoing - Any problem that you are currently receiving treatment for. Asthma BMI 25.0-25.9,adult CAD in [place] artery DDD (degenerative disc disease), lumbar Depression Epigastric pain Gouty arthritis Hematemesis Iron deficiency anemia Vitamin D deficiency Normal [facility] Lab Reportson 05-30-2022 Lab Reports [id number]#1.00CD:[address] [facility] Lab Reportson 05-23-2022 Lab Reports [id number]#1.00CD:[address] [facility] Lab Reports [id number]#1.00CD:[address] [facility] Physician Referralon Physician Referral [id number]#1.00CD:[address] [facility] CBC AUTO DIFFon 04-03-2022 BASO # 0.0 103/ul Normal 0.0-0.1 [facility] Comment on above: Performed By: #### C BC #### Laboratory [address] [address] [address] Raimundo Estrada Basophils/100 WBC (Bld) 0.3 % Normal 0.2-2.0 [facility] Comment on above: Performed By: #### C BC #### Laboratory [address] [place] [address] Dr. Raimundo Estrada EO # 0.1 103/ul Normal 0.0-0.7 [facility] Comment on above: Performed By: #### C BC #### Laboratory [address] [address] [address] Raimundo Estrada Eosinophils/100 WBC (Bld) 0.7 % Critically low 0.9-7.0 [facility] Comment on above: Performed By: #### C BC #### Laboratory [address] [address] [address] Raimundo Estrada Erythrocyte distribution width (RBC) [Ratio] 14.4 % Normal 11.0-15.0 [facility] Comment on above: Performed By: #### C BC #### Laboratory [address] [address] [address] Raimundo Estrada Hematocrit (Bld) [Volume fraction] 38.2 % Critically low 42.0-54.0 [facility] Comment on above: Performed By: #### C BC #### Laboratory [address] [place] [address] Dr. Raimundo Estrada Hemoglobin (Bld) [Mass/Vol] 12.8 g/dL Critically low 14.0-18.0 [facility] Comment on above: Performed By: #### C BC #### Laboratory [address] [place] [address] Dr. Raimundo Estrada IG # 0.04 10e3/ul Critically high 0.00-0.03 [facility] Comment on above: Performed By: #### C BC #### Laboratory [address] [place] [address] Dr. Raimundo Estrada IG % 0.3 % Normal 0.0-0.5 [facility] Comment on above: Performed By: #### C BC #### Laboratory [address] [place] [address] Dr. Raimundo Estrada LYMPH # 1.1 103/ul Critically low 1.2-3.8 [facility] Comment on above: Performed By: #### C BC #### Laboratory [address] [place] [address] Dr. Raimundo Estrada Lymphocytes/100 WBC (Bld) 9.4 % Critically low 20.5-60.0 [facility] Comment on above: Performed By: #### C BC #### Laboratory [address] [place] [address] Dr. Raimundo Estrada MANUAL DIFF REQ NO Normal [facility] Comment on above: Performed By: #### C BC #### Laboratory [address] [place] [address] Dr. Raimundo Estrada MCH (RBC) [Entitic mass] 30.7 pg Normal 25.9-34.0 [facility] Comment on above: Performed By: #### C BC #### Laboratory [address] [place] [address] Dr. Raimundo Estrada MCHC (RBC) [Mass/Vol] 33.5 g/dL Normal 29.9-35.2 [facility] Comment on above: Performed By: #### C BC #### Laboratory [address] [address] [address] Raimundo Estrada MCV (RBC) [Entitic vol] 91.6 fL Normal 80.0-94.0 [facility] Comment on above: Performed By: #### C BC #### Laboratory [address] [address] [address] Raimundo Estrada MONO # 0.7 103/ul Normal 0.3-0.8 The Comment on above: Performed By: #### C BC #### Laboratory [address] [place] [address] Dr. Raimundo Estrada Monocytes/100 WBC (Bld) 5.8 % Normal 1.7-12.0 [facility] Comment on above: Performed By: #### C BC #### Laboratory [address] [place] [address] Dr. Raimundo Estrada NEUT # 9.6 103/ul Critically high 1.4-6.5 [facility] Comment on above: Performed By: #### C BC #### Laboratory [address] [place] [address] Dr. Raimundo Estrada Neutrophils/100 WBC (Bld) 83.5 % Critically high 43.0-75.0 The Comment on above: Performed By: #### C BC #### Laboratory [address] [place] [address] Dr. Raimundo Estrada Platelet mean volume (Bld) [Entitic vol] 9.3 fL Critically low 9.5-13.5 The Comment on above: Performed By: #### C BC #### Laboratory [address] [place] [address] Dr. Raimundo Estrada PLT 165 103/ul Normal 150-450 The Comment on above: Performed By: #### C BC #### Laboratory [address] [place] [address] Dr. Raimundo Estrada RBC 4.17 106/ul Critically low 4.70-6.10 [facility] Comment on above: Performed By: #### C BC #### Laboratory [address] [place] [address] Dr. Raimundo Estrada WBC 11.6 103/ul Critically high 4.0-11.[address] [facility] Comment on above: Performed By: #### C BC #### Laboratory [address] [place] [address] Dr. Raimundo Estrada IRONon 04-03-2022 Iron [Mass/Vol] 63.0 ug/dL Critically low 65.0-175.0 [facility] Comment on above: Performed By: #### I HUBERT #### Laboratory [address] [place] [address] Dr. Raimundo Estrada PROTIMEon 04-03-2022 INR Coag (PPP) [Relative time] 0.98 {INR} Normal [facility] Comment on above: Performed By: #### H GBHCT #### Laboratory [address] [place] [address] Dr. Raimundo Estrada INR GUIDELINES SEE BELOW Normal [facility] Comment on above: Result Comment: KEIRA RED INR: 2.0 - 3.0 CONDITIONS NOT LISTED BELOW 2.5 - 3.5 FOR PROSTHETIC HEART VALVE REPLACEMENT 2.5 - 3.5 RECURRENT THROMBOSIS Performed By: #### H GBHCT #### Laboratory [address] [place] [address] Dr. Raimundo Estrada PT Coag (PPP) [Time] 10.6 s Normal 9.0-11.6 [facility] Comment on above: Performed By: #### H GBHCT #### Laboratory [address] [place] [address] Dr. Raimundo Estrada PTTon 04-03-2022 aPTT Coag (Bld) [Time] 26.2 s Normal 22.3-36.2 [facility] Comment on above: Performed By: #### H GBHCT #### Laboratory [address] [place] [address] Dr. Raimundo Estrada Sedimentation Rateon 022 Sed Rate 10 [facility] LIPID PROFILEon 03-12-2022 CHOL-HDL RATIO NORM SEE BELOW Normal [facility] Comment on above: Result Comment: 3.3 - 4.4 LOW RISK 4.4 - 7.1 AVERAGE RISK 7.1 - 11.0 MODERATE RISK >11.0 HIGH RISK Performed By: #### L IPID #### Laboratory [address] [address] [address] Raimundo Estrada Cholesterol [Mass/Vol] 126 mg/dL Normal <=200 [facility] Comment on above: Performed By: #### L IPID #### Laboratory [address] [address] [address] Raimundo Estrada Cholesterol in HDL [Mass/Vol] 68 mg/dL Critically high 40-60 [facility] Comment on above: Performed By: #### L IPID #### Laboratory [address] [address] [address] Raimundo Estrada Cholesterol in LDL [Mass/Vol] 52.0 mg/dL Normal [facility] Comment on above: Performed By: #### L IPID #### Laboratory [address] [address] [address] Raimundo Estrada Cholesterol.total/Ch olesterol in HDL [Mass ratio] 1.9 {ratio} Normal [facility] Comment on above: Performed By: #### L IPID #### Laboratory [address] [address] [address] Raimundo Estrada HDL NORMAL > or = 60 mg/dl - LO W CARDIOVASCULAR RISK <40 mg/dl - HIGH CARDIOVASCULAR RISK Normal [facility] Comment on above: Performed By: #### L IPID #### Laboratory [address] [address] [address] Raimundo Estrada LDL CALC NORMAL SEE BELOW Normal [facility] Comment on above: Result Comment: <100 mg/dl OPTIMAL 100 - 129 mg/dl NEAR OR ABOVE OPTIMAL 130 - 159 mg/dl BORDERLINE HIGH 160 - 189 mg/dl HIGH >190 mg/dl VERY HIGH Performed By: #### L IPID #### Laboratory [id number] Raimundo Estrada Triglyceride [Mass/Vol] 30 mg/dL Normal <=150 [facility] Comment on above: Performed By: #### L IPID #### Laboratory [address] [place], [place] [address] Dr. Raimundo Estrada VLDL CALC 6.0 mg/dL Normal The Comment on above: Performed By: #### L IPID #### Laboratory [address] [place], [place] [address] Dr. Raimundo Estrada CBC Auto DifferentialOrdered By: Julian Dougherty on 03-09-2021 Absolute Eos # <0.03 [facility] Work Phone: Absolute Immature Granulocyte 0.04 [employer] Work Phone: Absolute Lymph # 1.49 [facility] Work Phone: Absolute [place] # 1.27 [facility] Work Phone: Basophils (Bld) [#/Vol] 0.03 10*3/uL [employer] Work Phone: Basophils/100 WBC (Bld) 0 % 0 - 2 % [employer] Phone: Differential Type NOT REPORTED [employer] Phone: Eosinophils/100 WBC (Bld) 0 % Low 1 - 4 % [employer] Work Phone: Hematocrit (Bld) [Volume fraction] 41.8 % 40.7 - 50.3 % [employer] Work Phone: Hemoglobin.gastroint estinal spec 1 Ql (Stl) 14.3 g/dL 13.0 - 17.0 g/dL [employer] Work Phone: Immature granulocytes/100 WBC (Bld) 0 % 0 [employer] Work Phone: Interpretation and review of laboratory results Abnormal [employer] Work Phone: Lymphocytes/100 WBC (Bld) 14 % Low 24 - 43 % [employer] Phone: MCH (RBC) [Entitic mass] 30.6 pg 25.2 - 33.5 pg [employer] Phone: MCHC (RBC) [Mass/Vol] 34.2 g/dL 28.4 - 34.8 g/dL [employer] Phone: MCV (RBC) [Entitic vol] 89.5 fL 82.6 - 102.9 fL [employer] Phone: Monocytes/100 WBC (Bld) 12 % 3 - 12 % [employer] Phone: NRBC Automated 0.0 0.0 per 100 WBC [employer] Phone: Platelet distribution width (Bld) [Ratio] 13.2 % 11.8 - 14.4 % [employer] Phone: Platelet Estimate NOT REPORTED [employer] Phone: Platelet mean volume (Bld) [Entitic vol] 10.3 fL 8.1 - 13.5 fL [employer] Phone: Platelets (Bld) [#/Vol] 169 10*3/uL [employer] Phone: RBC (Bld) [#/Vol] 4.67 10*6/uL 4.21 - 5.77 m/uL [employer] Phone: RBC (Bld) [#/Vol] NOT REPORTED [employer] Phone: Segmented neutrophils/100 WBC (Bld) 74 % High 36 - 65 % [employer] Phone: Segs Absolute 7.59 [employer] Work Phone: WBC (Bld) [#/Vol] 10.4 10*3/uL [employer] Phone: WBC (Bld) [#/Vol] NOT REPORTED [employer] Phone: [employer] Phone: Sedimentation RateOrdered By : Julian Dougherty on 03-09-2021 Interpretation and review of laboratory results Abnormal [employer] Phone: Sed Rate 63 mm High 0 - 20 mm [employer] Phone: [employer] Phone: Uric AcidOrdered By: Julian Dougherty on 03-09-2021 Urate [Mass/Vol] 4.3 mg/dL 3.4 - 7.0 mg/dL [employer] Phone: [employer] Phone: XR WRIST RIGHT (MIN 3 VIEWS) Ordered By: Julian Dougherty on 03-09-2021 Arthritic changes an d mild soft tissue swelling without acute osseous abnormality. [employer] Phone: EXAMINATION: 3 XRAY VIEWS OF THE [...] No acute fracture, or dislocation is noted. [employer] Phone: Mauri, Mhpn Incoming R adiant Results From [facility] - 03/09/2021 10:56 AM EDT EXAMINATION: 3 [...] soft tissue swelling without acute osseous abnormality. 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 - Additional Measurements:ICAPSV/CCAPSV 0.76.ICAEDV/CCAEDV 1.49. 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 - Additional Measurements:ICAPSV/CCAPSV 0.76.ICAEDV/CCAEDV 1.49. [place] CBC auto differentialon 10-10 08-2019 Basophils (Bld) [#/Vol] 0.04 10*3/uL [place] Basophils/100 WBC (Bld) 0 % 0 - 2 % [place] Differential Type NOT REPORTED [place] Eosinophils (Bld) [#/Vol] 0.04 10*3/uL [place] Eosinophils/100 WBC (Bld) 0 % Low 1 - 4 % [place] Erythrocyte distribution width (RBC) [Ratio] 13.9 % 11.8 - 14.4 % [place] Hematocrit (Bld) [Volume fraction] 42.7 % 40.7 - 50.3 % [place] Hemoglobin (Bld) [Mass/Vol] 14.3 g/dL 13 - 17 g/dL [place] Immature granulocytes (Bld) [#/Vol] 0.03 10*3/uL [place] Immature granulocytes (Bld) [#/Vol] 0 % 0 [place] Interpretation and review of laboratory results Abnormal [place] Lymphocytes (Bld) [#/Vol] 1.95 10*3/uL [place] Lymphocytes/100 WBC (Bld) 20 % Low 24 - 43 % [place] MCH (RBC) [Entitic mass] 31.2 pg 25.2 - 33.5 pg [place] MCHC (RBC) [Mass/Vol] 33.5 g/dL 28.4 - 34.8 g/dL [place] MCV (RBC) [Entitic vol] 93.0 fL 82.6 - 102.9 fL [place] Monocytes (Bld) [#/Vol] 0.96 10*3/uL [place] Monocytes/100 WBC (Bld) 10 % 3 - 12 % [place] Platelet mean volume (Bld) [Entitic vol] 10.2 fL 8.1 - 13.5 fL [place] Platelets (Bld) [#/Vol] NOT REPORTED [place] Platelets (Bld) [#/Vol] 189 10*3/uL [place] RBC (Bld) [#/Vol] 4.59 10*6/uL 4.21 - 5.77 m/uL [place] RBC morphology finding Nom (Bld) NOT REPORTED [place] Segmented neutrophils/100 WBC (Bld) 70 % High 36 - 65 % [place] Segs Absolute 7.00 [place] WBC (Bld) [#/Vol] 10.0 10*3/uL [place] WBC (Bld) [#/Vol] 0.0 10*3/uL 0.0 per 100 WBC [place] WBC Morphology NOT REPORTED [place], [place] CT ABDOMEN PELVIS WO CONTRAS T [...] to suggest a definite acute inflammatory process. [place] EXAMINATION: [facility] OF [facility] ABDOMEN AND PELVIS WITHOUT CONTRAST 07/18/2020 [...] and moderate canal stenosis. No pars defects. [facility]- [place], [place] Mauri, Mhpn Incoming R adiant Results From [facility] - 07/18/2020 9:12 AM EDT EXAMINATION: CT [...] to suggest a definite acute inflammatory process. [place] Comprehensive Metabolic Pane pat 07-18-2020 Albumin [Mass/Vol] 4.3 g/dL 3.5 - 5.2 g/dL [place] Albumin/Globulin [Mass ratio] 1.5 {ratio} [place] ALP [Catalytic activity/Vol] 71 U/L 40 - 129 U/L [place] ALT [Catalytic activity/Vol] 26 U/L 5 - 41 U/L [place] Anion gap [Moles/Vol] 13 mmol/L 9 - 17 mmol/L [place] AST [Catalytic activity/Vol] 26 U/L <40 [place] Bilirubin Ql (U) 1.44 mg/dL High 0.3 - 1.2 mg/dL [place] Bun/Cre Ratio 28 High [place] Calcium [Mass/Vol] 9.4 mg/dL 8.6 - 10. 4 mg/dL [place] Chloride [Moles/Vol] 103 mmol/L 98 - 10 7 mmol/L [place] CO2 [Moles/Vol] 23 mmol/L 20 - 31 mmol/L [place] Creatinine [Mass/Vol] 0.79 mg/dL 0.7 - 1.2 mg/dL [place] GFR >60 >60 mL/min [place] GFR Non- >60 >60 mL/min [place] Glucose [Mass/Vol] 93 mg/dL 70 - 99 mg/dL [place] Interpretation and review of laboratory results Abnormal [place] Potassium [Moles/Vol] 3.9 mmol/L 3.7 - 5.3 mmol/L [place] Protein [Mass/Vol] 7.1 g/dL 6.4 - 8.3 g/dL [place] Sodium [Moles/Vol] 139 mmol/L 135 - 144 mmol/L [place] Urea nitrogen [Mass/Vol] 22 mg/dL High 6 - 20 mg/dL [place] EKG 12 Leadon 07-18-2020 Atrial Rate 58 BPM [place] P [place] 45 degrees [place] P-R Interval 138 ms [place] Q-T Interval 478 ms [place] QRS Duration 74 ms [place] QTc Calculation (Bazett) 469 ms [place] R [place] 49 degrees [place] T [place] 129 degrees [place] Ventricular Rate 58 BPM [place] Sinus bradycardia T wave abnormality, consider lateral ischemia Prolonged QT Abnormal ECG When compared with ECG of 14-JUN-2019 10:26, Nonspecific T wave abnormality has replaced inverted T waves in Inferior leads T wave inversion less evident in Anterior leads Confirmed by JW KAY ([id number]) on 07/18/2020 11:37:03 AM [place] Mauri, Mhpn Incoming E kg Results From [facility] [place] - 07/18/2020 11:37 AM EDT Sinus bradycardia T wave abnormality, consider lateral ischemia Prolonged QT Abnormal ECG When compared with ECG of 14-JUN-2019 10:26, Nonspecific T wave abnormality has replaced inverted T waves in Inferior leads T wave inversion less evident in Anterior leads Confirmed by JW KAY ([id number]) on 07/18/2020 11:37:03 AM [place] Lipaseon 07-18-2020 Lipase [Catalytic activity/Vol] 30 U/L 13 - 60 U/L [place] Metabolic Panelon 07-18-2020 GFR/1.73 sq M predicted among non-blacks MDRD (S/P/Bld) [Vol rate/Area] [place] Comment on above: Stage 1: Some [...] body mass. Additional eGFR calculator available at: http://www.Cellerix/multiple_crcl_2012.htm Microscopic Urinalysison Amorphous, UA NOT REPORTED None [place] Bacteria, UA NOT REPORTED None [place] Casts UA NOT REPORTED /LPF [place] Crystals, UA NOT REPORTED None /HPF [place] Epithelial Cells UA 0 TO 2 [place] Mucus, UA NOT REPORTED None [place] Other Observations UA NOT REPORTED NOT REQ. [place] RBC (U) [#/Vol] None [place] Renal Epithelial, UA NOT REPORTED 0 /HPF [place] Trichomonas, UA NOT REPORTED None [place] WBC, UA 0 TO 2 [place] Yeast, UA NOT REPORTED None [place] - [place] Troponinon 07-18-2020 Troponin I.cardiac [Mass/Vol] NOT REPORTED [place] Troponin T.cardiac [Mass/Vol] NOT REPORTED <0.03 ng/mL [place] Troponin, High Sensitivity 18 ng/L 0 - 22 ng/L [place] Comment on above: High Sensitivity Troponin values cannot be compared with other Troponin methodologies. Patients with high levels of Biotin oral intake (i.e >5mg/day) may have falsely decreased Troponin levels. Samples collected within 8 hours of biotin intake may require additional information for diagnosis. Troponin I.cardiac [Mass/Vol] NOT REPORTED [place] Troponin T.cardiac [Mass/Vol] NOT REPORTED <0.03 ng/mL [place] Troponin, High Sensitivity 21 ng/L 0 - 22 ng/L [place] Comment on above: High Sensitivity Troponin values cannot be compared with other Troponin methodologies. Patients with high levels of Biotin oral intake (i.e >5mg/day) may have falsely decreased Troponin levels. Samples collected within 8 hours of biotin intake may require additional information for diagnosis. Urinalysis Reflex to Culture on 07-18-2020 Bilirubin Urine Negative NEGATIVE [place] Color, UA YELLOW YELLOW [place] Glucose, Ur Negative NEGATIVE [place] Interpretation and review of laboratory results Abnormal [place] Ketones Ql (U) 1+ Abnormal NEGATIVE [place] Leukocyte esterase Test strip Ql (U) Negative NEGATIVE [place] Nitrite, Urine Negative NEGATIVE [place] pH, UA 7.0 [place] Protein (U) [Mass/Vol] Negative NEGATIVE [place] Specific [place], UA 1.020 [place] Turbidity UA CLEAR CLEAR [place] Urinalysis Comments NOT REPORTED [place] Urine Hgb Negative NEGATIVE [place] Urobilinogen, Urine Normal Normal [place] XR CHEST (SINGLE VIEW FRONTA L)on 07-18-2020 Mauri, Mhpn Incoming R adiant Results From [facility] - 07/18/2020 8:54 AM EDT EXAMINATION: ONE XRAY VIEW OF THE CHEST 07/18/2020 8:44 am COMPARISON: June 14, 2019 HISTORY: ORDERING SYSTEM PROVIDED HISTORY: epig pain TECHNOLOGIST PROVIDED HISTORY: epig pain FINDINGS: Is no evidence of focal infiltrate, effusion, pneumothorax. Heart mediastinum appear normal. Visualized bony thorax shows no acute abnormality. IMPRESSION: No acute findings of the chest, stable when compared to previous. [place] EXAMINATION: ONE XRA Y VIEW OF THE CHEST 07/18/2020 8:44 am COMPARISON: June 14, 2019 HISTORY: ORDERING SYSTEM PROVIDED HISTORY: epig pain TECHNOLOGIST PROVIDED HISTORY: epig pain FINDINGS: Is no evidence of focal infiltrate, effusion, pneumothorax. Heart mediastinum appear normal. Visualized bony thorax shows no acute abnormality. [place] No acute findings of the chest, stable when compared to previous. [place] CBC Auto Differentialon Basophils (Bld) [#/Vol] 0.05 10*3/uL [place] Basophils/100 WBC (Bld) 1 % 0 - 2 % [place] Differential Type NOT REPORTED [place] Eosinophils (Bld) [#/Vol] 10*3/uL [place] Eosinophils/100 WBC (Bld) 0 % Low 1 - 4 % [place] Erythrocyte distribution width (RBC) [Ratio] 12.9 % 11.8 - 14.4 % [place] Hematocrit (Bld) [Volume fraction] 45.7 % 40.7 - 50.3 % [place] Hemoglobin (Bld) [Mass/Vol] 15.5 g/dL 13 - 17 g/dL [place] Immature granulocytes (Bld) [#/Vol] 10*3/uL [place] Immature granulocytes (Bld) [#/Vol] 0 % 0 [place] Interpretation and review of laboratory results Abnormal [place] Lymphocytes (Bld) [#/Vol] 1.83 10*3/uL [place] Lymphocytes/100 WBC (Bld) 19 % Low 24 - 43 % [place] MCH (RBC) [Entitic mass] 31.1 pg 25.2 - 33.5 pg [place] MCHC (RBC) [Mass/Vol] 33.9 g/dL 28.4 - 34.8 g/dL [place] MCV (RBC) [Entitic vol] 91.6 fL 82.6 - 102.9 fL [place] Monocytes (Bld) [#/Vol] 0.86 10*3/uL [place] Monocytes/100 WBC (Bld) 9 % 3 - 12 % [place] Platelet mean volume (Bld) [Entitic vol] 9.7 fL 8.1 - 13.5 fL [place] Platelets (Bld) [#/Vol] 195 10*3/uL [place] Platelets (Bld) [#/Vol] NOT REPORTED [place] RBC (Bld) [#/Vol] 4.99 10*6/uL 4.21 - 5.77 m/uL [place] RBC morphology finding Nom (Bld) NOT REPORTED [place] Segmented neutrophils/100 WBC (Bld) 71 % High 36 - 65 % [place] Segs Absolute 7.08 [place] WBC (Bld) [#/Vol] 9.9 10*3/uL [place] WBC (Bld) [#/Vol] 0.0 10*3/uL 0.0 per 100 WBC [place] WBC Morphology NOT REPORTED [place] Comprehensive Metabolic Pane l w/ Reflex to MGon 06-14-2019 Albumin [Mass/Vol] 4.4 g/dL 3.5 - 5.2 g/dL [place] Albumin/Globulin [Mass ratio] 1.2 {ratio} [place] ALP [Catalytic activity/Vol] 77 U/L 40 - 129 U/L [place] ALT [Catalytic activity/Vol] 19 U/L 5 - 41 U/L [place] Anion gap [Moles/Vol] 15 mmol/L 9 - 17 mmol/L [place] AST [Catalytic activity/Vol] 22 U/L <40 [place] Bilirubin Ql (U) 0.61 mg/dL 0.3 - 1.2 mg/dL [place] Bun/Cre Ratio 23 [place] Calcium [Mass/Vol] 10.0 mg/dL 8.6 - 10. 4 mg/dL [place] Chloride [Moles/Vol] 98 mmol/L 98 - 10 7 mmol/L [place] CO2 [Moles/Vol] 24 mmol/L 20 - 31 mmol/L [place] Creatinine [Mass/Vol] 0.82 mg/dL 0.7 - 1.2 mg/dL [place] GFR >60 >60 mL/min [place] GFR Non- >60 >60 mL/min [place] Glucose [Mass/Vol] 98 mg/dL 70 - 99 mg/dL [place] Interpretation and review of laboratory results Abnormal [place] Potassium [Moles/Vol] 4.0 mmol/L 3.7 - 5.3 mmol/L [place] Protein [Mass/Vol] 8.2 g/dL 6.4 - 8.3 g/dL [place] Sodium [Moles/Vol] 137 mmol/L 135 - 144 mmol/L [place] Urea nitrogen [Mass/Vol] 19 mg/dL 6 - 20 mg/dL [place] D-Dimer, Quantitativeon D-Dimer, Quant 0.42 [place] Comment on above: Elevated levels of [...] activity/Vol] 37 U/L 13 - 60 U/L [place] Metabolic Panelon 06-14-2019 GFR/1.73 sq M predicted among non-blacks MDRD (S/P/Bld) [Vol rate/Area] [place] Comment on above: Average GFR for 50-5 9 years old: 93 mL/min/1.73sq m Chronic Kidney Disease: <60 mL/min/1.73sq m Kidney failure: <15 mL/min/1.73sq m eGFR calculated using average adult body mass. Additional eGFR calculator available at: http://www.Cellerix/multiple_crcl_2012.htm Stage 1: Some kidney damage normal GFR Stage 2: Mild kidney damage GFR 60-89 Stage 3: Moderate kidney damage GFR 30-59 Stage 4: Severe kidney damage GFR 15-29 Stage 5: Severe kidney damage GFR <15 ESRD - chronic treatment by dialysis or transplant Troponinon 06-14-2019 Troponin I.cardiac [Mass/Vol] [place] Comment on above: Reference Range: <0.03 [...] diagnosis. Troponin T.cardiac [Mass/Vol] ug/L <0.03 ng/mL [place] Comment on above: Troponin T results c annot be compared to Troponin-I results. Troponin, High Sensitivity NOT REPORTED 0 - 22 ng/L [place] Troponin I.cardiac [Mass/Vol] [place] Comment on above: Reference Range: <0.03 [...] diagnosis. Troponin T.cardiac [Mass/Vol] ug/L <0.03 ng/mL [place] Comment on above: Troponin T results c annot be compared to Troponin-I results. Troponin, High Sensitivity NOT REPORTED 0 - 22 ng/L [place] APTTon 01-13-2018 aPTT 24.4 s Normal 20.5-30.5 [facility] Comment on above: Result Comment: [address] [address] Performed By: #### C BC, PTT, TROPI, GLYHGB ####[address] [address] Basic Metabolic Profon 01-13 (cont.) Normal [facility] Comment on above: Result Comment: Aver age GFR for 50-59 years old: 93 mL/min/1.73sq mChronic Kidney Disease: <60 mL/min/1.73sq mKidney failure: <15 mL/min/1.73sq meGFR calculated using average adult body mass. Additional eGFR calculator available at:http://www.Appy Couple.Virax/multiple_crcl_2012.htm[address] [address] Performed By: #### C BC, PTT, TROPI, GLYHGB ####[address] [address] Anion gap 9 mmol/L Normal 9-17 [facility] Comment on above: Performed By: #### C BC, PTT, TROPI, GLYHGB ####[address] [address] Calcium 9.3 mg/dL Normal 8.6-10.4 [facility] Comment on above: Performed By: #### C BC, PTT, TROPI, GLYHGB ####[address] [address] Chloride 102 mmol/L Normal 98-107 [facility] Comment on above: Performed By: #### C BC, PTT, TROPI, GLYHGB ####[address] [address] CO2 24 mmol/L Normal 20-31 [facility] Comment on above: Performed By: #### C BC, PTT, TROPI, GLYHGB ####[facility] [address] [place] [address] Creatinine 0.75 mg/dL Normal 0.70-1.20 [facility] Comment on above: Performed By: #### C BC, PTT, TROPI, GLYHGB ####[facility] [address] [place] [address] eGFR (non-black) mL/min/{1.73_m2} Normal >60 [facility] Comment on above: Performed By: #### C BC, PTT, TROPI, GLYHGB ####[facility] [address] [place] [address] Glucose mass conc 104 mg/dL High 70-99 [facility] Comment on above: Performed By: #### C BC, PTT, TROPI, GLYHGB ####[facility] [address] [place] [address] Potassium molar conc 5.0 mmol/L Normal 3.7-5.3 [facility] Comment on above: Result Comment: TEST CONFIRMED Performed By: #### C BC, PTT, TROPI, GLYHGB ####[facility] [address] [place] [address] Sodium 135 mmol/L Normal 135-144 [facility] Comment on above: Performed By: #### C BC, PTT, TROPI, GLYHGB ####[facility] [address] [place] [address] Urea nitrogen 12 mg/dL Normal 6-20 [facility] Comment on above: Performed By: #### C BC, PTT, TROPI, GLYHGB ####[facility] [address] [place] [address] BUN/CRE Ratio NOT REPORTED Normal 9-20 [facility] Comment on above: Performed By: #### C BC, PTT, TROPI, GLYHGB ####[address] [address] Staging: NOT REPORTED Normal [facility] Comment on above: Performed By: #### C BC, PTT, TROPI, GLYHGB ####[address] [address] (cont.) Normal [facility] Comment on above: Result Comment: Aver age GFR for 50-59 years old: 93 mL/min/1.73sq mChronic Kidney Disease: <60 mL/min/1.73sq mKidney failure: <15 mL/min/1.73sq meGFR calculated using average adult body mass. Additional eGFR calculator available at:http://www.Appy Couple.Virax/multiple_crcl_2012.htmM[facility] [address] [place] [address] Performed By: #### C BC, PTT, TROPI, GLYHGB ####[address] [address] Anion gap 11 mmol/L Normal 9-17 [facility] Comment on above: Performed By: #### C BC, PTT, TROPI, GLYHGB ####[address] [address] Calcium 8.6 mg/dL Normal 8.6-10.4 [facility] Comment on above: Performed By: #### C BC, PTT, TROPI, GLYHGB ####[address] [address] Chloride 100 mmol/L Normal 98-107 [facility] Comment on above: Performed By: #### C BC, PTT, TROPI, GLYHGB ####[facility] [address] [place] [address] CO2 24 mmol/L Normal 20-31 [facility] Comment on above: Performed By: #### C BC, PTT, TROPI, GLYHGB ####[facility] [place] [address] Creatinine 0.64 mg/dL Low 0.70-1.20 [facility] Comment on above: Performed By: #### C BC, PTT, TROPI, GLYHGB ####[facility] [address] [place] [address] eGFR (non-black) mL/min/{1.73_m2} Normal >60 [facility] Comment on above: Performed By: #### C BC, PTT, TROPI, GLYHGB ####[address] [place] [address] Glucose mass conc 102 mg/dL High 70-99 [facility] Comment on above: Performed By: #### C BC, PTT, TROPI, GLYHGB ####[facility] [place] [address] Potassium molar conc 3.5 mmol/L Low 3.7-5.3 [facility] Comment on above: Performed By: #### C BC, PTT, TROPI, GLYHGB ####[facility] [place] [address] Sodium 135 mmol/L Normal 135-144 [facility] Comment on above: Performed By: #### C BC, PTT, TROPI, GLYHGB ####[facility] [address] [place] [address] Urea nitrogen 12 mg/dL Normal 6-20 [facility] Comment on above: Performed By: #### C BC, PTT, TROPI, GLYHGB ####[facility] [place] [address] BUN/CRE Ratio NOT REPORTED Normal 9- [facility] Comment on above: Performed By: #### C BC, PTT, TROPI, GLYHGB ####[facility] [address] [place] [address] Staging: NOT REPORTED Normal [facility] Comment on above: Performed By: #### C BC, PTT, TROPI, GLYHGB ####[facility] [address] [place] [address] Discharge Summaryon 01-14-20 18 HIM IP Note OR Licensed Occupational Therapy Assistant Normal [facility] Magnesiumon 01-13-2018 Magnesium 2.2 mg/dL Normal 1.6-2.6 [facility] Comment on above: Result Comment: [facility] [address] [place] [address] Performed By: #### C BC, PTT, TROPI, GLYHGB ####[facility] [address] [place] [address] Magnesium 2.1 mg/dL Normal 1.6-2.6 [facility] Comment on above: Result Comment: [facility] [place] [address] Performed By: #### C BC, PTT, TROPI, GLYHGB ####[facility] [address] [place] [address] Plan of Careon 01-13-2018 HIM IP Note OR Licensed Occupational Therapy Assistant Normal [facility] Progress Noteon 01-13-2018 HIM IP Note OR Licensed Occupational Therapy Assistant Normal [facility] HIM IP Note OR Licensed Occupational Therapy Assistant Normal [facility] HIM IP Note OR Licensed Occupational Therapy Assistant Normal [facility] APTTon 01-12-2018 aPTT 47.5 s High 20.5-30.5 [facility] Comment on above: Result Comment: [facility] [address] [place] [address] Performed By: #### P TT ####[address] [place] [address] aPTT 48.3 s High 20.5-30.5 [facility] Comment on above: Result Comment: [facility] [address] [place] [address] Performed By: #### P LT, PTT ####[address] [address] aPTT 50.8 s High 20.5-30.5 [facility] Comment on above: Result Comment: [facility] [address] [place] [address] Performed By: #### P TT ####[address] [address] Platelet Counton 01-12-2018 Platelets 154 10*3/uL Normal 138-453 [facility] Comment on above: Result Comment: [facility] [address] [place] [address] Performed By: #### P LT, PTT ####[address] [address] Progress Noteon 01-12-2018 HIM IP Note OR Licensed Occupational Therapy Assistant Normal [facility] APTTon 01-11-2018 aPTT 38.0 s High 20.5-30.5 [facility] Comment on above: Result Comment: [facility] [address] [place] [address] Performed By: #### P TT ####[address] [address] aPTT 35.3 s High 20.5-30.5 [facility] Comment on above: Result Comment: [facility] [address] [place] [address] Performed By: #### P TT ####[address] [address] aPTT 30.5 s Normal 20.5-30.5 [facility] Comment on above: Result Comment: [facility] [address] [place] [address] Performed By: #### P TT ####[address] [address] CBCon 01-11-2018 Erythrocyte distribution width Auto Ratio (RBC) 14.0 % Normal 11.8-14.4 [facility] Comment on above: Performed By: #### C BC, CP, LIPR, MG ####[address] [address] Erythrocytes (RBC) 0.0 per 100 WBC Normal 0.0 M [facility] Comment on above: Result Comment: [facility] [employer] [facility] [place] [address] Performed By: #### C BC, CP, LIPR, MG ####[address] [address] Erythrocytes (RBC) 4.36 10*6/uL Normal 4.21-5.77 [facility] Comment on above: Performed By: #### C BC, CP, LIPR, MG ####[address] [address] Hematocrit (HCT) 40.6 % Low 40.7-50.3 [facility] Comment on above: Performed By: #### C BC, CP, LIPR, MG ####[address] [address] Hemoglobin mass conc (Bld) 13.3 g/dL Normal 13.0-17.0 [facility] Comment on above: Performed By: #### C BC, CP, LIPR, MG ####[address] [address] MCH 30.5 pg Normal 25.2-33.5 [facility] Comment on above: Performed By: #### C BC, CP, LIPR, MG ####[address] [place] [address] MCHC mass conc (RBC) 32.8 g/dL Normal 28.4-34.8 [facility] Comment on above: Performed By: #### C BC, CP, LIPR, MG ####[address] [address] MCV 93.1 fL Normal 82.6-102.9 [facility] Comment on above: Performed By: #### C BC, CP, LIPR, MG ####[address] [place] [address] Platelet mean volume (PMV) 10.1 fL Normal 8.1-13.5 [facility] Comment on above: Performed By: #### C BC, CP, LIPR, MG ####[facility] [address] [place] [address] Platelets 153 10*3/uL Normal 138-453 [facility] Comment on above: Performed By: #### C BC, CP, LIPR, MG ####[address] [address] WBC (Leukocytes) 9.5 10*3/uL Normal 3.5-11.3 [facility] Comment on above: Performed By: #### C BC, CP, LIPR, MG ####[address] [address] Comp Metabolic Profon 2017 (cont.) Normal [facility] Comment on above: Result Comment: Aver age GFR for 50-59 years old: 93 mL/min/1.73sq mChronic Kidney Disease: <60 mL/min/1.73sq mKidney failure: <15 mL/min/1.73sq meGFR calculated using average adult body mass. Additional eGFR calculator available at:http://www.Appy Couple.com/multiple_crcl_2012.htmMarshall [facility] Center [address] [place] [address] Performed By: #### C BC, CP, LIPR, MG ####[facility] [place] [address] Alanine aminotransferase (ALT) 17 U/L Normal 5-41 [facility] Comment on above: Performed By: #### C BC, CP, LIPR, MG ####[facility] [address] [place] [address] Albumin 3.6 g/dL Normal 3.5-5.2 [facility] Comment on above: Performed By: #### C BC, CP, LIPR, MG ####[address] [address] Albumin/Globulin Ratio 1.3 {ratio} Normal 1.0-2.5 [facility] Comment on above: Performed By: #### C BC, CP, LIPR, MG ####[facility] [address] [place] [address] Alkaline Phos 76 U/L Normal 40-129 [facility] Comment on above: Performed By: #### C BC, CP, LIPR, MG ####[facility] [place] [address] Anion gap 14 mmol/L Normal 9-17 [facility] Comment on above: Performed By: #### C BC, CP, LIPR, MG ####[address] [place] [address] Aspartate aminotransferase (AST) 15 U/L Normal <40 [facility] Comment on above: Performed By: #### C BC, CP, LIPR, MG ####[address] [address] Bilirubin Ql (U) 1.13 mg/dL Normal 0.3-1.2 [facility] Comment on above: Performed By: #### C BC, CP, LIPR, MG ####[facility] [address] [place] [address] Calcium 8.4 mg/dL Low 8.6-10.4 [facility] Comment on above: Performed By: #### C BC, CP, LIPR, MG ####[facility] [address] [place] [address] Chloride 97 mmol/L Low 98-107 [facility] Comment on above: Performed By: #### C BC, CP, LIPR, MG ####[facility] [address] [place] [address] CO2 23 mmol/L Normal 20-31 [facility] Comment on above: Performed By: #### C BC, CP, LIPR, MG ####[facility] [address] [place] [address] Creatinine 0.63 mg/dL Low 0.70-1.20 [facility] Comment on above: Performed By: #### C BC, CP, LIPR, MG ####[facility] [address] [place] [address] eGFR (non-black) mL/min/{1.73_m2} Normal >60 [facility] Comment on above: Performed By: #### C BC, CP, LIPR, MG ####[facility] [address] [place] [address] Glucose mass conc 107 mg/dL High 70-99 [facility] Comment on above: Performed By: #### C BC, CP, LIPR, MG ####[facility] [place] [address] Potassium molar conc 3.6 mmol/L Low 3.7-5.3 [facility] Comment on above: Performed By: #### C BC, CP, LIPR, MG ####[address] [address] Protein 6.4 g/dL Normal 6.4-8.3 [facility] Comment on above: Performed By: #### C BC, CP, LIPR, MG ####[address] [address] Sodium 134 mmol/L Low 135-144 [facility] Comment on above: Performed By: #### C BC, CP, LIPR, MG ####[address] [address] Urea nitrogen 19 mg/dL Normal 6-20 [facility] Comment on above: Performed By: #### C BC, CP, LIPR, MG ####[address] [address] BUN/CRE Ratio NOT REPORTED Normal -20 [facility] Comment on above: Performed By: #### C BC, CP, LIPR, MG ####[address] [address] Staging: NOT REPORTED Normal [facility] Comment on above: Performed By: #### C BC, CP, LIPR, MG ####[address] [address] Hemoglobin A1Con 01-11-2018 Glucose mass conc 114 mg/dL Normal [facility] Comment on above: Result Comment: The ADA and AACC recommend providing the estimated average glucose result to permit better patient understanding of their HBA1c result.[address] [address] Performed By: #### C BC, PTT, TROPI, GLYHGB ####[address] [address] Hemoglobin A1c/Hemoglobin.total mass fraction (Bld) 5.6 % Normal 4.0-6.0 [facility] Comment on above: Performed By: #### C BC, PTT, TROPI, GLYHGB ####[address] [address] Lipid Profileon 01-11-2018 Cholesterol 123 mg/dL Normal <200 [facility] Comment on above: Result Comment: Chol esterol Guidelines: <200 Desirable 200-240 Borderline >240 Undesirable Performed By: #### C BC, CP, LIPR, MG ####[address] [address] Cholesterol to HDL Ratio 2.0 {ratio} Normal <5 [facility] Comment on above: Performed By: #### C BC, CP, LIPR, MG ####[address] [address] HDL Cholesterol 63 mg/dL Normal >40 [facility] Comment on above: Result Comment: HDL Guidelines: <40 Undesirable 40-59 Borderline >59 Desirable Performed By: #### C BC, CP, LIPR, MG ####[address] [address] LDL Cholesterol 38 mg/dL Normal 0-130 [facility] Comment on above: Result Comment: LDL Guidelines: <100 Desirable 100-129 Near to/above Desirable 130-159 Borderline >159 UndesirableDirect (measured) LDL and calculated LDL are not interchangeable tests. Performed By: #### C BC, CP, LIPR, MG ####[address] [address] Triglyceride 111 mg/dL Normal <150 [facility] Comment on above: Result Comment: Trig lyceride Guidelines: <150 Desirable 150- 199 Borderline 200-499 High >499 Very high Based on AHA Guidelines for fasting triglyceride, July 2012.[address] [place] [address] Performed By: #### C BC, CP, LIPR, MG ####[facility] [address] [place] [address] Cholesterol in VLDL mass conc NOT REPORTED Normal 1-30 [facility] Comment on above: Performed By: #### C BC, CP, LIPR, MG ####[facility] [address] [place] [address] Magnesiumon 01-11-2018 Magnesium 2.1 mg/dL Normal 1.6-2.6 [facility] Comment on above: Result Comment: [facility] [employer] [address] [place] [address] Performed By: #### C BC, CP, LIPR, MG ####[facility] [place] [address] Plan of Careon 01-11-2018 HIM IP Note OR Licensed Occupational Therapy Assistant [facility] HIM IP Note OR Licensed Occupational Therapy Assistant [facility] Progress Noteon 01-11-2018 HIM IP Note OR Licensed Occupational Therapy Assistant [facility] Troponinon 01-11-2018 Troponin I.cardiac mass conc Normal [facility] Comment on above: Result Comment: Refe rence Range: <0.03 Within reference range. 0.03-0.09 Possible myocardial damage.Repeat at appropriate intervals to rule out chronic elevation. >= 0.10 Indicative of myocardial damage.Patients with high levels of Biotin oral intake (i.e >5mg/day) may have falsely decreased Troponin T levels. Samples collected within 8 hours of biotin intake may require additional information for diagnosis.[address] [place] [address] Performed By: #### T ROPI ####[facility] [place] [address] Troponin T.cardiac mass conc ug/L Normal <0.03 [facility] Comment on above: Result Comment: Trop onin T results cannot be compared to Troponin-I results. Performed By: #### T ROPI ####[address] [address] APTTon 01-10-2018 aPTT 23.8 s Normal 20.5-30.5 [facility] Comment on above: Result Comment: [id number] [place] [address] Performed By: #### C BC, PTT, TROPI, GLYHGB ####[address] [address] CBCon 01-10-2018 Erythrocyte distribution width Auto Ratio (RBC) 14.2 % Normal 11.8-14.4 [facility] Comment on above: Performed By: #### C BC, PTT, TROPI, GLYHGB ####[address] [address] Erythrocytes (RBC) 4.47 10*6/uL Normal 4.21-5.77 [facility] Comment on above: Performed By: #### C BC, PTT, TROPI, GLYHGB ####[address] [address] Erythrocytes (RBC) 0.0 per 100 WBC Normal 0.0 M [facility] Comment on above: Result Comment: [facility] [employer] [address] [place] [id number] Performed By: #### C BC, PTT, TROPI, GLYHGB ####[address] [address] Hematocrit (HCT) 41.3 % Normal 40.7-50.3 [facility] Comment on above: Performed By: #### C BC, PTT, TROPI, GLYHGB ####[address] [address] Hemoglobin mass conc (Bld) 13.5 g/dL Normal 13.0-17.0 [facility] Comment on above: Performed By: #### C BC, PTT, TROPI, GLYHGB ####[facility] [address] [place] [address] MCH 30.2 pg Normal 25.2-33.5 [facility] Comment on above: Performed By: #### C BC, PTT, TROPI, GLYHGB ####[address] [place] [address] MCHC mass conc (RBC) 32.7 g/dL Normal 28.4-34.8 [facility] Comment on above: Performed By: #### C BC, PTT, TROPI, GLYHGB ####[facility] [address] [place] [address] MCV 92.4 fL Normal 82.6-102.9 [facility] Comment on above: Performed By: #### C BC, PTT, TROPI, GLYHGB ####[facility] [address] [place] [address] Platelet mean volume (PMV) 10.1 fL Normal 8.1-13.5 [facility] Comment on above: Performed By: #### C BC, PTT, TROPI, GLYHGB ####[address] [place] [address] Platelets 160 10*3/uL Normal 138-453 [facility] Comment on above: Performed By: #### C BC, PTT, TROPI, GLYHGB ####[facility] [place] [address] WBC (Leukocytes) 6.8 10*3/uL Normal 3.5-11.3 [facility] Comment on above: Performed By: #### C BC, PTT, TROPI, GLYHGB ####[address] [place] [address] History and Physicalon 01-10 HIM IP Note OR Licensed Occupational Therapy Assistant [facility] Plan of Careon 01-10-2018 HIM IP Note OR Licensed Occupational Therapy Assistant [facility] Progress Noteon 01-10-2018 HIM IP Note OR Licensed Occupational Therapy Assistant [facility] Troponinon 01-10-2018 Troponin I.cardiac mass conc [facility] Comment on above: Result Comment: Refe rence Range: <0.03 Within reference range. 0.03-0.09 Possible myocardial damage.Repeat at appropriate intervals to rule out chronic elevation. >= 0.10 Indicative of myocardial damage.Patients with high levels of Biotin oral intake (i.e >5mg/day) may have falsely decreased Troponin T levels. Samples collected within 8 hours of biotin intake may require additional information for diagnosis.[address] [facility] [place], [place] [id number] ([phone] Performed By: #### C BC, PTT, TROPI, GLYHGB ####[employer] [address] [place] [address] [id number] Troponin T.cardiac mass conc ug/L Normal <0.03 [facility] Comment on above: Result Comment: Trop onin T results cannot be compared to Troponin-I results. Performed By: #### C BC, PTT, TROPI, GLYHGB ####[employer] [address] [place] [address] [id number] Vital Signs Date Time Vital Sign Value Performing Clinician Hilda marie 06-24-2024 08:41-0400 Body height 167.6 cm Casey Mohr MD Work Phone: [facility] 06-24-2024 08:41-0400 Body mass index (BMI) [Ratio] 28.13 kg/m2 Casey Mohr MD Work Phone: [facility] 06-24-2024 08:41-0400 Body weight 79.06 kg Casey Mohr MD Work Phone: [facility] 06-24-2024 08:41-0400 Diastolic blood pressure 90 mm[Hg] Casey Mohr MD Work Phone: [facility] 06-24-2024 08:41-0400 Heart rate 65 /min Casey Mohr MD Work Phone: [facility] 06-24-2024 08:41-0400 SaO2% (BldA) [Mass fraction] 98 % Casey Mohr MD Work Phone: [facility] 06-24-2024 08:41-0400 Systolic blood pressure 158 mm[Hg] Casey Mohr MD Work Phone: [facility] 2023 06:08-0500 SaO2% (BldA) [Mass fraction] 99 % Nadia Fitzpatrick MD Work Phone: [facility] [employer] 2023 05:49-0500 Body temperature 100.09 [degF] Nadia Fitzpatrick MD Work Phone: [facility] 2023 05:49-0500 Diastolic blood pressure 52 mm[Hg] Nadia Fitzpatrick MD Work Phone: [facility] 2023 05:49-0500 Heart rate 89 /min Nadia Fitzpatrick MD Work Phone: [facility] [employer] 2023 05:49-0500 Respiratory rate 18 /min Nadia Fitzpatrick MD Work Phone: [facility] [employer] 2023 05:49-0500 Systolic blood pressure 151 mm[Hg] Nadia Fitzpatrick MD Work Phone: [facility] [employer] 09-18-2023 13:40-0500 Diastolic blood pressure 68 mm[Hg] Shaheen Chappell MD Work Phone: [facility] 09-18-2023 13:40-0500 Heart rate 68 /min Shaheen Chappell MD Work Phone: [facility] 09-18-2023 13:40-0500 SaO2% (BldA) [Mass fraction] 97 % Shaheen Chappell MD Work Phone: [facility] 09-18-2023 13:40-0500 Systolic blood pressure 101 mm[Hg] Shaheen Chappell MD Work Phone: [facility] 09-18-2023 13:10-0500 Respiratory rate 16 /min Shaheen Chappell MD Work Phone: [facility] 09-18-2023 13:00-0500 Body temperature 97 [degF] Shaheen Chappell MD Work Phone: [facility] 09-18-2023 08:35-0500 Body height 167.6 cm Shaheen Chappell MD Work Phone: [facility] 09-18-2023 08:35-0500 Body mass index (BMI) [Ratio] 27.44 kg/m2 Shaheen Chappell MD Work Phone: [facility] 09-18-2023 08:35-0500 Body weight 77.11 kg Shaheen Chappell MD Work Phone: [facility] 08-14-2023 14:38-0500 Body height 167.6 cm Casey Mohr MD Work Phone: [facility] 08-14-2023 14:38-0500 Body mass index (BMI) [Ratio] 26.87 kg/m2 Casey Mohr MD Work Phone: [facility] 08-14-2023 14:38-0500 Body weight 75.52 kg Casey Mohr MD Work Phone: [facility] 08-14-2023 14:38-0500 Diastolic blood pressure 69 mm[Hg] Casey Mohr MD Work Phone: [facility] 08-14-2023 14:38-0500 Heart rate 72 /min Casey Mohr MD Work Phone: [facility] 08-14-2023 14:38-0500 SaO2% (BldA) [Mass fraction] 98 % Casey Mohr MD Work Phone: [facility] 08-14-2023 14:38-0500 Systolic blood pressure 102 mm[Hg] Casey Mohr MD Work Phone: [facility] 07-16-2023 13:41-0400 Body height 167.6 cm Jennie Hernandez MD Work Phone: [facility] 07-16-2023 13:41-0400 Body mass index (BMI) [Ratio] 27.11 kg/m2 Jennie Hernandez MD Work Phone: [facility] 07-16-2023 13:41-0400 Body weight 76.2 kg Jennie Hernandez MD Work Phone: [facility] 07-04-2023 09:34-0400 Body height 167.6 cm Jennie Hernandez MD Work Phone: [facility] 07-04-2023 09:34-0400 Body mass index (BMI) [Ratio] 27.12 kg/m2 Jennie Hernandez MD Work Phone: [facility] 07-04-2023 09:34-0400 Body weight 76.2 kg Jennie Hernandez MD Work Phone: [facility] 06-10-2023 10:18-0400 Body height 167.6 cm Jennie Hernandez MD Work Phone: [facility] 06-10-2023 10:18-0400 Body mass index (BMI) [Ratio] 27.12 kg/m2 Jennie Hernandez MD Work Phone: [facility] 06-10-2023 10:18-0400 Body weight 76.2 kg Jennie Hernandez MD Work Phone: [facility] 05-19-2023 09:07-0400 Body height 167.6 cm Jennie Hernandez MD Work Phone: [facility] 05-19-2023 09:07-0400 Body mass index (BMI) [Ratio] 27.12 kg/m2 Jennie Hernandez MD Work Phone: [facility] 05-19-2023 09:07-0400 Body weight 76.2 kg Jennie Hernandez MD Work Phone: [facility] 04-18-2023 12:33-0400 Body height 167.6 cm Jennie Hernandez MD Work Phone: [facility] 04-18-2023 12:33-0400 Body mass index (BMI) [Ratio] 26.63 kg/m2 Jennie Hernandez MD Work Phone: [facility] 04-18-2023 12:33-0400 Body weight 74.84 kg Jennie Hernandez MD Work Phone: [facility] 02-25-2023 08:48-0400 Body height 167.6 cm Jennie Hernandez MD Work Phone: [facility] 02-25-2023 08:48-0400 Body mass index (BMI) [Ratio] 26.63 kg/m2 Jennie Hernandez MD Work Phone: [facility] 02-25-2023 08:48-0400 Body weight 74.84 kg Jennie Hernandez MD Work Phone: [facility] 12-31-2022 13:46-0400 Body temperature 97.3 [degF] Rosa Garg DO Work Phone: [facility] 12-31-2022 13:46-0400 Diastolic blood pressure 71 mm[Hg] Rosa Garg DO Work Phone: [facility] 12-31-2022 13:46-0400 Heart rate 72 /min Rosa Garg DO Work Phone: [facility] 12-31-2022 13:46-0400 Respiratory rate 16 /min Rosa Garg DO Work Phone: [facility] 12-31-2022 13:46-0400 SaO2% (BldA) [Mass fraction] 92 % Rosa Garg DO Work Phone: [facility] 12-31-2022 13:46-0400 Systolic blood pressure 102 mm[Hg] Rosa Garg DO Work Phone: [facility] [employer] 12-31-2022 02:40-0400 Body mass index (BMI) [Ratio] 25.34 kg/m2 Rosa Garg DO Work Phone: [facility] [employer] 12-31-2022 02:40-0400 Body weight 71.2 kg Rosa Garg DO Work Phone: [facility] 12-30-2022 12:46-0400 Body height 167.6 cm Rosa Garg DO Work Phone: [facility] 05-31-2022 14:26-0400 Blood Pressure Location Julian DIAZ [facility] [place] 05-31-2022 14:26-0400 Diastolic blood pressure 60 mm[Hg] Julian HOWELLNola [facility] [place] 05-31-2022 14:26-0400 Heart rate 66 /min Julian DIAZ [facility] [place] 05-31-2022 14:26-0400 Respiratory rate 16 /min Julian DIAZ [facility] [place] 05-31-2022 14:26-0400 Systolic blood pressure 108 mm[Hg] Julian HOWELLNola [facility] [place] 03-09-2021 12:45-0400 Respiratory rate 16 /min Julian Dougherty MD [employer] Work Phone: 03-09-2021 10:28-0400 Body height 167.6 cm Julian Dougherty MD [employer] Phone: 03-09-2021 10:28-0400 Body mass index (BMI) [Ratio] 25.5 kg/m2 Julian Dougherty MD [employer] Phone: 03-09-2021 10:28-0400 Body temperature 98.49 [degF] Julian Dougherty MD [employer] Phone: 03-09-2021 10:28-0400 Body weight 71.67 kg Julian Dougherty MD [employer] Phone: 03-09-2021 10:28-0400 Heart rate 79 /min [facility]: 03-09-2021 10:28-0400 SaO2% (BldA) [Mass fraction] 97 % Julian Dougherty [facility] Phone: 07-18-2020 09:15-0400 Pulse Oximetry 97 % [facility] [place] 07-18-2020 08:30-0400 BP Diastolic 96 mm[Hg] [facility] 07-18-2020 08:30-0400 BP Systolic 135 mm[Hg] [facility] 07-18-2020 08:18-0400 Body Temperature 98.01 [degF] [facility] 07-18-2020 08:18-0400 Pulse (Heart Rate) 84 /min [facility], [place] 07-18-2020 08:18-0400 Respiratory Rate 16 /min [facility] 09-12-2019 02:36-0500 BP Diastolic 95 mm[Hg] [facility] , [place] 09-12-2019 02:36-0500 BP Systolic 138 mm[Hg] [facility] , [place] 09-12-2019 01:27-0500 Body Temperature 97.3 [degF] [facility] [place] 09-12-2019 01:27-0500 Pulse (Heart Rate) 86 /min [facility] 09-12-2019 01:27-0500 Pulse Oximetry 97 % [facility] , [place] 09-12-2019 01:27-0500 Respiratory Rate 18 /min Justice Dewitt [facility] O , [place] 06-14-2019 12:44-0400 BP Diastolic 89 mm[Hg] Pablo Portillo [facility] , [place] 06-14-2019 12:44-0400 BP Systolic 158 mm[Hg] Pablo Dewitt [facility] , [place] 06-14-2019 12:44-0400 Pulse (Heart Rate) 68 /min Pablo Portillo [facility], [place] 06-14-2019 12:44-0400 Pulse Oximetry 95 % Pablo Dewitt [facility] , [place] 06-14-2019 12:44-0400 Respiratory Rate 12 /min Pablo Portillo [employer] [facility] [place] 06-14-2019 10:15-0400 BMI (Body Mass Index) 24.53 kg/m2 Pablo Dewitt [facility], [place] 06-14-2019 10:15-0400 Body Temperature 98.01 [degF] Pablo Dewitt [facility], [place] 06-14-2019 10:15-0400 Body weight 68.95 kg Pablo Dewitt [facility] , [place] Encounters Encounter Date Encounter Type Care Provider Facility Start: 06-24-2024 End: 06-24-2024 Office outpatient visit 25 minutes Casey Mohr MD Work Phone: [facility] Neurology Comment on above: 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); Hyperreflexia Start: 06-24-2024 ambulatory SELF SELF [facility] Start: 06-16-2024 End: 06-16-20[facility] Start: 05-31-2024 Evaluation and manag ement of inpatient [facility] Start: 05-29-2024 Evaluation and manag ement of inpatient [facility] Start: 05-29-2024 Evaluation and manag ement of inpatient [facility] Start: 05-28-2024 End: 05-31-2024 Evaluation and management of inpatient CASEY VIZCAINO [facility] Start: 05-28-2024 End: 05-28-2024 ambulatory [facility] Start: 03-15-2024 End: 03-15-2024 ambulatory Mo Gongora MD Facility: [facility] Start: 02-11-2024 End: 02-11-2024 ambulatory [facility] Start: 11-24-2023 End: 11-24-2023 ambulatory ROMARIO MAN Not Available Start: 2023 End: 2023 Emergency department patient visit NADIA FITZPATRICK [facility] Start: 2023 End: 2023 Emergency department patient visit Nadia Fitzpatrick MD Work Phone: [facility] ED Comment on above: Viral illness (Prima ry Dx) Start: 09-18-2023 End: 09-18-2023 ambulatory [facility] Start: 09-18-2023 End: 09-18-2023 Subsequent hospital visit by physician Shaheen Chappell MD Work Phone: [facility] Comment on above: Sacroiliitis Start: 09-09-2023 [facility] Start: 09-09-2023 Encounter for other preprocedural examination [facility] Start: 08-27-2023 [facility] Start: 08-14-2023 End: 08-14-2023 Office outpatient new 45 minutes Casey Mohr MD Work Phone: [facility] Comment on above: 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); Hyperreflexia Start: 08-14-2023 ambulatory [facility] Start: 08-13-2023 End: 08-13-2023 ambulatory [facility] Start: 08-13-2023 End: 08-13-2023 Encounter for other preprocedural examination [facility] Start: 07-16-2023 ambulatory [facility] Start: 07-16-2023 End: 07-16-2023 Subsequent hospital visit by physician Jennie Hernandez MD Work Phone: [facility] Procedure Images Comment on above: Arrived Start: 07-16-2023 End: 07-16-2023 Patient encounter procedure Jennie Hernandez MD Work Phone: [facility] Comment on above: 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); Pain of both sacroiliac joints Start: 07-04-2023 ambulatory JENNIE HERNANDEZ [facility] Start: 07-04-2023 End: 07-04-2023 Office outpatient visit 15 minutes Jennie Hernandez MD Work Phone: [facility] Comment on above: 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); Pain of both sacroiliac joints; Polyneuropathy Start: 06-16-2023 End: 06-16-2023 ambulatory Mo Gongora MD Facility:[facility] Start: 06-10-2023 ambulatory JENNIE HERNANDEZ [facility] Start: 06-10-2023 End: 06-10-2023 Patient encounter procedure Jennie Hernandez MD Work Phone: [facility] Comment on above: Osteoarthritis of ri ght sacroiliac joint (Primary Dx); Pain of right sacroiliac joint; Polyneuropathy; Lower extremity numbness; Osteoarthritis of left sacroiliac joint; Pain of left sacroiliac joint; Lumbar spondylosis Start: 05-19-2023 ambulatory [facility] Start: 05-19-2023 End: 05-19-2023 Office outpatient visit 15 minutes Jennie Hernandez MD Work Phone: [facility] Comment on above: Osteoarthritis of le ft sacroiliac joint (Primary Dx); Pain of left sacroiliac joint; Lumbar spondylosis Start: 04-18-2023 ambulatory JENNIE HERNANDEZ [facility] Start: 04-18-2023 End: 04-18-2023 Patient encounter procedure Jennie Hernandez MD Work Phone: [facility] Comment on above: Osteoarthritis of le ft sacroiliac joint (Primary Dx) Start: 04-18-2023 End: 04-18-2023 Subsequent hospital visit by physician Jennie Hernandez MD Work Phone: [facility] Procedure Images Comment on above: Arrived Start: 02-25-2023 ambulatory JENNIE HERNANDEZ [facility] Start: 02-25-2023 End: 02-25-2023 Office outpatient new 30 minutes Jennie Hernandez MD Work Phone: [facility] Comment on above: Osteoarthritis of le ft sacroiliac joint (Primary Dx); Lumbar spondylosis; Lower extremity numbness Start: 01-13-[address] ROMARIO MAN [facility] ity:[facility] Start: 01-08-2023 End: 01-09-[address] ROMARIO MAN Facility:[facility] Start: 12-30-2022 End: 12-31-2022 Evaluation and management of inpatient ROMARIO MAN [facility] Start: 12-30-2022 End: 12-31-2022 Evaluation and management of inpatient Rosa Garg DO Work Phone: [facility] Comment on above: Chest [...] examination without abnormal findings DR ROMARIO MAN [facility] Start: 09-11-2022 End: 09-12-[address] ROMARIO MAN Facility:[facility] Start: 09-11-2022 End: 09-12-2022 Encounter for general adult medical examination without abnormal findings DR ROMARIO MAN Facility:[facility] Start: 08-22-2022 End: 08-22-[address] NELSON IBRAHIM . Facility:[facility] Start: 07-10-2022 End: 07-11-2022 ambulatory Julian DIAZ Facility:[facility] Start: 07-10-2022 End: 07-10-2022 Patient encounter procedure Julian Davis NILL [facility] Nill[facility] Start: 06-26-2022 End: 06-27-2022 ambulatory Julian DIAZ Facility:CD:[id number] Start: 06-24-2022 Encounter for preprocedural laboratory examination DR JULIAN DIAZ . The Start: 06-22-2022 End: 06-23-[address] JULIAN DIAZ . Facility:[facility] Start: 06-22-2022 End: 06-23-2022 Encounter for preprocedural laboratory examination DR JULIAN DIAZ . Facility:[facility] Start: 05-31-2022 End: 06-01-2022 ambulatory ROMARIO MAN PROVIDER Facility:[facility] Start: 05-31-2022 End: 05-31-2022 Patient encounter procedure Julian Susan DANTEL General Surgery Nill/S[facility] [place] Start: 05-30-2022 End: 05-31-[address] NELSON IBRAHIM . Facility:[facility] Start: 05-15-2022 ambulatory Julian DIAZ Facility :[facility] Start: 04-30-2022 End: 04-30-[address] NELSON IBRAHIM . Facility:[facility] Start: 04-23-2022 End: 04-23-[address] NELSON IBRAHIM . Facility:[facility] Start: 04-03-2022 End: 04-04-2022 ambulatory JULIANE MASSEY . Facility:[facility] Start: 03-25-2022 End: 03-25-2022 Subsequent hospital visit by physician Romario Mna MD Work Phone: [facility] Laboratory Comment on above: Chronic fatigue Start: 03-12-2022 End: 03-13-[address] ROMARIO MAN Facility:[facility] Start: 03-12-2022 End: 03-12-[address] ROMARIO MAN Facility:[facility] Start: 02-21-2022 End: 02-22-[address] NELSON Acevedo Facility:[facility] Start: 02-05-2022 End: 02-05-[address] ROMARIO MAN Facility:[facility] Start: 03-09-2021 End: 03-09-2021 Emergency department patient visit Julian Dougherty MD [facility] ED Comment on above: Acute gout of right wrist, unspecified cause (Primary Dx) Start: 08-17-2020 End: 08-17-2020 Subsequent hospital visit by physician [facility] Cardiology Stress Room [facility] Stress Lab Comment on above: Arrived Start: 08-16-2020 End: 08-18-2020 Subsequent hospital visit by physician [facility] Vascular Imaging Room [facility] Vascular Lab Comment on above: Other specified lisette pheral vascular diseases (HCC) Start: 08-16-2020 End: 08-16-2020 Subsequent hospital visit by physician [facility] Cardiology Stress Room [facility] Stress Lab Comment on above: Arrived Start: 07-18-2020 End: 07-18-2020 Emergency department patient visit Sebastian Jany Work Phone: [facility] ED Comment on above: Abdominal pain, epig astric (Primary Dx) Start: 09-12-2019 End: 09-12-2019 Emergency department patient visit Justice Shaver Work Phone: [facility] ED Comment on above: Trapezius muscle spa sm (Primary Dx) Start: 06-14-2019 End: 06-14-2019 Emergency department patient visit Pablo Portillo Work Phone: [facility] ED Comment on above: Chronic pain of both shoulders (Primary Dx); Neck pain, chronic; Nonspecific chest pain Start: 01-29-2018 End: 01-30-2018 Ambulatory DEFAULT PHYSICIAN Facility:[facility] Start: 01-20-2018 End: 01-21-2018 Ambulatory DEFAULT PHYSICIAN Facility:[facility] Start: 01-10-2018 End: 01-13-2018 Evaluation and management of inpatient SOREN MOHR [facility] Procedures Date Procedure Procedure Detail Performing [...] 12-31-2022 Assay of troponin quantitative Cece Villalobos DRY HEAT CABINET ATTENDANT - [facility] Work Phone: Start: 12-31-2022 BASIC METABOLIC PANEL W/ REFLEX TO MG FOR LOW K Cece Villalobos DRY HEAT CABINET ATTENDANT - [employer] Work Phone: Start: 12-31-2022 Lipid panel Cece Villalobos DRY HEAT CABINET ATTENDANT - [facility] Work Phone: Start: 12-31-2022 End: 12-31-2022 Ecg routine ecg w/least 12 lds w/i&r Cece Villalobos DRY HEAT CABINET ATTENDANT - [facility] Work Phone: Start: 12-30-2022 Echo tthrc r-t 2d w/wom-mode compl spec&colr d Cece Bairon Griselda DRY HEAT CABINET ATTENDANT - [employer] [facility] Work Phone: Start: 12-30-2022 RESPIRATORY PANEL, MOLECULAR, WITH COVID-19 Cecejhonatan Villalboos DRY HEAT CABINET ATTENDANT - [employer] [facility] Work Phone: Start: 12-30-2022 Rhythm ecg 1-3 [...] on above: Performed By: #### [facility] #### Laboratory [address] [place] [address] Dr. Raimundo Estrada Start: 06-26-2022 Colonoscopy Julian [...] Scanning Start: 07-18-2020 Assay of lipase Sebastian Anahiu Work Phone: Start: 07-18-2020 Assay of troponin [...] SIGNS SHOWKAT AHMAD Start: 01-12-2018 DIAGNOSTIC CARDIAC SATELLITE TELEVISION INSTALLER PROCEDURE SHOWKAT AHMAD Start: 01-12-2018 APTT SHOWKAT [...] DTaP/Tdap/Td vaccine (3 - Td or Tdap) [facility] Start: 12-31-2025 Diabetes screen Diabetes screen [facility] Start: 2025 Pneumococcal 0-64 years Vaccine (3 - PPSV23 if available, else PCV20) Pneumococcal 0-64 years Vaccine (3 - PPSV23 if available, else PCV20) [facility] Start: 2025 Pneumococcal 0-64 years Vaccine (3 - PPSV23 or PCV20) Pneumococcal 0-64 years Vaccine (3 - PPSV23 or PCV20) [facility] Start: 06-24-2024 End: 06-24-2025 MILENA AND PE, SERUM MILENA AND PE, SERUM Lab Routine Hereditary and idiopathic peripheral neuropathy Expected: 06/24/2024, Expires: 06/24/2025 [facility] Comment on above: Expected: 06/24/2024, Expires: 5 Start: 06-24-2024 End: 06-24-2025 MR Cervical spine WO contrast MRI SPINE CERVICAL WITHOUT CONTRAST Imaging Routine Hyperreflexia Expected: 06/24/2024, Expires: 06/24/2025 [facility] Comment on above: Expected: 06/24/2024, Expires: 5 Start: 06-24-2024 End: 06-24-2025 MR Thoracic spine WO contrast MRI SPINE THORACIC WITHOUT CONTRAST Imaging Routine Hyperreflexia Expected: 06/24/2024, Expires: 06/24/2025 [facility] Comment on above: Expected: 06/24/2024, Expires: 5 Start: 06-06-2024 COVID-19 VACCINE ( season) COVID-19 VACCINE ( season) [facility] Start: 06-06-2024 Influenza vaccination INFLUENZA VACCINE (#1) [facility] Start: 01-01-2024 Lipid panel Lipids [facility] Start: 09-18-2023 End: 09-18-2023 Arthrodesis sacroiliac joint percutaneous ARTHRODESIS SACROILIAC JOINT MINIMALLY INVASIVE W/ TRANSFIXING DEVICE Sacroiliitis 09/18/2023 10:52 AM EST [facility] Start: 09-18-2023 End: 09-18-2023 Fluoroscopy up to 1 hour physician/qhp time FLUOROSCOPY IN OR Sacroiliitis 09/18/2023 10:52 AM EST [facility] Start: 08-14-2023 End: 08-14-2023 Patient encounter procedure 08/14/2023 2:45 PM EST Office Visit [facility] [address] [place] [address] Casey Mohr MD [address] [place] [address] [facility] Start: 08-14-2023 End: 08-14-2024 B12/folate level B12 & FOLATE Lab Routine Hereditary and idiopathic peripheral neuropathy Expected: 08/14/2023, Expires: 08/14/2024 [facility] Comment on above: Expected: 08/14/2023, Expires: Start: 08-14-2023 End: 08-14-2024 Hemoglobin A1c/Hemoglobin.total in Blood HEMOGLOBIN A1C Lab Routine Hereditary and idiopathic peripheral neuropathy Expected: 08/14/2023, Expires: 08/14/2024 [facility] Comment on above: Expected: 08/14/2023, Expires: Start: 08-14-2023 End: 08-14-2024 MILENA AND PE, SERUM MILENA AND PE, SERUM Lab Routine Hereditary and idiopathic peripheral neuropathy Expected: 08/14/2023, Expires: 08/14/2024 [facility] Comment on above: Expected: 08/14/2023, Expires: 4 Start: 08-14-2023 End: 08-14-2024 MR Cervical spine WO contrast MRI SPINE CERVICAL WITHOUT CONTRAST Imaging Routine Hyperreflexia Expected: 08/14/2023, Expires: 08/14/2024 [facility] Comment on above: Expected: 08/14/2023, Expires: Start: 08-14-2023 End: 08-14-2024 MR Thoracic spine WO contrast MRI SPINE THORACIC WITHOUT CONTRAST Imaging Routine Hyperreflexia Expected: 08/14/2023, Expires: 08/14/2024 [facility] Comment on above: Expected: 08/14/2023, Expires: Start: 08-14-2023 End: 08-14-2024 VITAMIN B6 VITAMIN B6 Lab Routine Hereditary and idiopathic peripheral neuropathy Expected: 08/14/2023, Expires: 08/14/2024 [facility] Comment on above: Expected: 08/14/2023, Expires: Start: 07-04-2023 End: 07-04-2023 Patient encounter procedure 07/04/2023 9:00 AM EDT Office Visit [facility] [address] [place] [address] Jennie Hernandez MD [address] [place] [address] [facility] Start: 06-10-2023 End: 06-10-2023 Patient encounter procedure 06/10/2023 10:00 AM EDT Office Visit [facility] [address] [place] [address] Jennie Hernandez MD [address] [place] [address] [facility] Start: 06-06-2023 COVID-19 Vaccine ( season) COVID-19 Vaccine ( season) [facility] Start: 06-06-2023 Influenza vaccination [facility] Start: 05-19-2023 End: 05-19-2023 Patient encounter procedure 05/19/2023 9:00 AM EDT Office Visit [facility] [address] [place] [address] Jennie Hernandez MD [address] [facility] [place] [address] [facility] Start: 05-06-2023 Influenza vaccination Flu vaccine (#1) [facility] Start: 04-18-2023 End: 04-18-2023 Patient encounter procedure 04/18/2023 12:40 PM EDT Office Visit [facility] [address] [place] [address] Jennie Hernandez MD [address] [place] [address] [facility] Start: 04-15-2023 End: 04-15-2023 Patient encounter procedure 04/15/2023 10:15 AM EDT Office Visit [facility] [address] [place] [address] Jw Capps MD [address] [place] [address] [facility] Start: 03-25-2023 Hemoglobin A1c measurement A1C test (Diabetic or Prediabetic) [facility] Start: 02-25-2023 End: 02-26-2024 Electromyography EMG & NERVE CONDUCTION Neurology Routine Lower extremity numbness Expected: 02/25/2023, Expires: 02/26/2024 [facility] Comment on above: Expected: 02/25/2023, Expires: 4 Start: 01-11-2023 Lipid screen Lipid screen [facility] [place] Start: 04-11-2022 End: 04-11-2022 Patient encounter procedure 04/11/2022 Office Visit Neurology Con Cowan MD [address] [place] [address] [place] [address] [facility] Start: 06-06-2021 Influenza vaccination Flu vaccine (Season Ended) [facility] Work Phone: Start: 01-10-2021 Diabetes screen Diabetes screen [facility] Start: 2020 Respiratory Syncytial Virus (RSV) or age 60 yrs+ (1 - 1-dose 60+ series) Respiratory Syncytial Virus (RSV) or age 60 yrs+ (1 - 1-dose 60+ series) [facility] Start: 2020 RSV VACCINE (1 - 1-dose 60+ series) RSV VACCINE (1 - 1-dose 60+ series) [facility] Start: 08-17-2020 End: 08-17-2020 Appointment 08/17/2020 Appointment [facility] Start: 06-06-2020 Influenza vaccination Flu vaccine (#1) [place] Start: 06-06-2019 Influenza vaccination Flu vaccine (#1) [place] Start: 01-11-2019 Lipid panel [facility] Start: 01-11-2019 Lipid screen Lipid screen [place] Start: 08-13-2018 Prostate specific antigen measurement Prostate Specific Antigen (PSA) Screening or Monitoring [facility] Start: 2010 Colon cancer screen colonoscopy Colon cancer screen colonoscopy [place] Start: 2010 Prostate specific antigen measurement PROSTATE CANCER SCREENING DISCUSSION [facility] Start: 2010 Screening for malignant neoplasm of colon Colon cancer screen colonoscopy [place] Start: 2010 Shingles Vaccine (1 of 2) Shingles Vaccine (1 of 2) [place] Start: 2010 Zoster vaccine hzv live for subcutaneous use ZOSTER (SHINGLES) VACCINE (1 of 2) [facility] Start: 2005 Screening for malignant neoplasm of colon [facility] Start: 2000 Lipid panel LIPID SCREENING [facility] Start: 1979 DTaP/Tdap/Td vaccine (1 - Tdap) DTaP/Tdap/Td vaccine (1 - Tdap) [place] Start: 1979 Third diphtheria, tetanus and acellular pertussis (DTaP) vaccination TDAP (ADULT) [facility] Start: 1978 Hepatitis C screening Hepatitis C screen [facility] Start: 1975 HIV screen HIV screen [place] Start: 1975 HIV screening [facility] Start: 1972 COVID-19 Vaccine (1) COVID-19 Vaccine (1) [facility] Work Phone: Start: 1972 Depression Screen Depression Screen [facility] [employer] Start: 1971 DTaP/Tdap/Td vaccine (1 - Tdap) DTaP/Tdap/Td vaccine (1 - Tdap) [place] Start: 1966 Pneumococcal 0-64 years Vaccine (1 of 1 - PPSV23) Pneumococcal 0-64 years Vaccine (1 of 1 - PPSV23) [place] Start: 1966 Pneumococcal 0-64 years Vaccine (1 of 2 - PPSV23) Pneumococcal 0-64 years Vaccine (1 of 2 - PPSV23) [facility] Work Phone: Start: 04-09-1961 COVID-19 VACCINE (#1) COVID-19 VACCINE (#1) [facility] Start: 1960 Hepatitis C screen Hepatitis C screen [place] Start: 1960 Hepatitis C screening [facility] Start: 1960 Tetanus vaccination TETANUS [facility] End: 01-02-2023 Basic Metabolic Panel w/ Reflex to MG Basic Metabolic Panel w/ Reflex to MG Lab Routine Daily for 3 Days starting 12/31/2022 until 01/02/2023, 1 completed [facility] [employer] Work Phone: Comment on above: Daily for 3 Days starting 12/31/2022 unt il 01/02/2023, 1 completed End: 01-02-2023 CBC W Auto Differential panel - Blood CBC with Auto Differential Lab Routine Daily for 3 Days starting 12/31/2022 until 01/02/2023, 1 completed [facility] [employer] Work Phone: Comment on above: Daily for 3 Days starting 12/31/2022 unt il 01/02/2023, 1 completed EKG 12 Lead EKG 12 Lead ECG STAT 06/14/2019 10:26 AM EDT [place] EKG 12 lead EKG 12 lead ECG Routine As Needed until discontinued starting 12/30/2022 [facility] [employer] Work Phone: Comment on above: As Needed until discontinued starting End: 03-25-2022 Hemoglobin A1c/Hemoglobin.total in Blood [facility] Phone: Comment on above: 1 Occurrences starting 03/25/2022 until 03/25/2022 End: 12-31-2022 Hemoglobin A1c/Hemoglobin.total in Blood Hemoglobin A1C Lab Routine Tomorrow AM for 1 Occurrences starting 12/31/2022 until 12/31/2022 Apparent Phone: Comment on above: Tomorrow AM for 1 Occurrences starting 0 12/31/2022 until 12/31/2022 Hemoglobin A1c/Hemoglobin.total in Blood Hemoglobin A1C Lab Routine 12/31/2022 6:30 AM EDT [facility] Phone: Initiate ED RT Bronc hospasm Protocol Initiate ED RT Bronchospasm Protocol Respiratory Care Routine Daily until discontinued starting 2023 [facility] Comment on above: Daily until discontinued starting 2023 End: 12-30-2022 Intermittent pulse oximetry Pulse Oximetry Spot Check Respiratory Care Routine One Time for 1 Occurrences starting 12/30/2022 until 12/30/2022 Apparent Phone: Comment on above: One Time for 1 Occurrences starting 12/05 until 12/30/2022 End: 03-25-2022 Nuclear Ab [Titer] in Serum by Immunofluorescence [facility] Phone: Comment on above: 1 Occurrences starting 03/25/2022 until 03/25/2022 Oxygen therapy [[facility] Heart Data Set] Initiate Oxygen Therapy Protocol Respiratory Care Routine As Needed until discontinued starting 12/30/2022 Apparent Phone: Comment on above: As Needed until discontinued starting End: 2023 Portable XR Chest AP single view [employer] M[facility] Comment on above: Once for 1 Occurrences starting 10/10/19 until 2023 End: 09-18-2023 RF Unspecified body region Views during surgery [facility] Comment on above: One Time for 1 Occurrences starting 09/05 until 09/18/2023 Stress test, lexiscan Stress kendra t, lexiscan Cardiac Services Routine 12/31/2022 3:03 PM EDT [facility] Phone: Vibratory Airway Clearance Vibra tory Airway Clearance Respiratory Care Routine Every 1hr while awake until discontinued starting 12/30/2022 Apparent Phone: Comment on above: Every 1hr while awake until discontinued starting 12/30/2022 End: 03-25-2022 Vitamin B12 & Folate [facility] Phone: Comment on above: 1 Occurrences starting 03/25/2022 until 03/25/2022 XR CHEST PORTABLE XR CHEST HEDY BLE Imaging STAT 06/14/2019 10:43 AM EDT [place] Payers Date Payer Category Payer Unknown [id number] 2022 Unknown 2022 Unknown [id number] 2021 Unknown [id number] 2021 Unknown [id number] 2019 Private Health Insurance [facility] [id number] 2019-Present [phone] [address] [place] [address] [id number] .[id number] 2019 Private Health Insurance [employer] xxxxxxxxxx 2019-Present [phone] [address] [place] [address] xxxxxxxxxx [id number] .7.3.069131.315 2016 Unknown [id number] 2014 Unknown [id number] 1.2.840.573333.1.13.239.2 .7.3.777946.315 1960 Unknown [id number] 2.16.840.1.005390.3.579.2 .727 1960 Unknown [id number] 2.16.840.1.588976.3.579.2 .727 1960 Unknown [id number] 2.16.840.1.036129.3.579.2 .727 1960 Unknown [id number] 2.16.840.1.328269.3.579.2 .727 1960 Unknown [id number] 2.16.840.1.161866.3.579.2 .593 1960 Unknown [id number] 2.16.840.1.672399.3.579.2 .593 1960 Unknown [id number] 2.16.840.1.508310.3.579.2 .593 1960 Unknown [id number] 2.16.840.1.238327.3.579.2 .593 1960 Unknown [id number] 2.16.840.1.657306.3.579.2 .593 1960 Unknown [id number] 2.16.840.1.493939.3.579.2 .593 1960 Unknown [id number] 2.16.840.1.614018.3.579.2 .593 1960 Unknown [id number] 2.16.840.1.350510.3.579.2 .593 1960 Unknown [id number] 2.16.840.1.800448.3.579.2 .593 1960 Unknown [id number] 2.16.840.1.103425.3.579.2 .593 1960 Unknown [id number] 2.16.840.1.459240.3.579.2 .593 1960 Unknown [id number] 2.16.840.1.162347.3.579.2 .593 1960 Unknown [id number] 2.16.840.1.817126.3.579.2 .593 1960 Unknown [id number] 2.16.840.1.209854.3.579.2 .593 1960 Unknown [id number] 2.16.840.1.528343.3.579.2 .593 1960 Unknown [id number] 2.16.840.1.355493.3.579.2 .593 1960 Unknown [id number] 2.16.840.1.774466.3.579.2 .593 1960 Unknown [id number] 2.16.840.1.978706.3.579.2 .593 1960 Unknown [id number] 2.16.840.1.916077.3.579.2 .593 1960 Unknown [id number] 2.16.840.1.699508.3.579.2 .593 1960 Unknown [id number] 2.16.840.1.150176.3.579.2 .983 1960 Unknown [id number] 2.16.840.1.088059.3.579.2 .983 1960 Unknown [id number] 2.16.840.1.223094.3.579.2 .983 1960 Unknown [id number] 2.16.840.1.471112.3.579.2 .983 1960 Unknown [id number] 2.16.840.1.187813.3.579.2 .983 1960 Unknown [id number] 2.16.840.1.301631.3.579.2 .983 1960 Unknown [id number] 2.16.840.1.531179.3.579.2 .983 1960 Unknown [id number] 2.16.840.1.111868.3.579.2 .983 1960 Unknown [id number] 2.16.840.1.127873.3.579.2 .983 1960 Unknown [id number] 2.16.840.1.819732.3.579.2 .983 1960 Unknown [id number] 2.16.840.1.810190.3.579.2 .983 1960 Unknown [id number] 2.16.840.1.334054.3.579.2 .983 1960 Unknown [id number] 2.16.840.1.793283.3.579.2 .983 1960 Unknown [id number] 2.16.840.1.613504.3.579.2 .173 1960 Unknown [id number] 2.16.840.1.211622.3.579.2 .173 1960 Unknown [id number] 2.16.840.1.849790.3.579.2 .1259 1960 Unknown [id number] 2.16.840.1.365023.3.579.2 .196 1960 Unknown [id number] 2.16.840.1.865020.3.579.2 .196 1960 Unknown [id number] 2.16.840.1.793809.3.579.2 .983 1960 Unknown [id number] 2.16.840.1.511197.3.579.2 .983 1959 Unknown [id number] 1.2.840.381838.1.13.239.2 .7.3.384064.315 1959 Unknown [id number] Social History Date Type Detail Facility Start: 06-14-2019 End: 02-25-2023 Tobacco smoking status NHIS Never smoker [facility] [employer] Start: 06-14-2019 End: 06-24-2024 Alcohol intake Yes [place] Start: 06-14-2019 Alcohol Comment not every day [place] Start: 1960 Sex Assigned At Not on file [place] Start: 09-12-2019 End: 06-24-2024 Alcohol intake Current drinker of alcohol (finding) [place] Start: 07-18-2020 End: 02-25-2023 Tobacco use and exposure Never used [facility] [place] Start: 03-15-2022 End: 12-30-2022 Exposure to SARS-CoV-2 (event) Not sure [place] Start: 03-09-2021 End: 06-24-2024 [facility] Tobacco smoking status Never Gener al Surgery [facility]ess[facility] Start: 12-30-2022 History SDOH Alcohol Frequency [address] [facility] [employer] Work Phone: Start: 12-30-2022 History SDOH Alcohol Std Drinks 2 [facility] Work Phone: Start: 09-09-2023 Alcohol Comment 3-4 BEERS DAILY [facility] How often to you hav e a drink containing alcohol? 4 or more times a week Order Mapper How many standard dr inks containing alcohol do you have on a typical day? 3 or 4 Order Mapper How often do you hav e 6 or more drinks on 1 occasion? Daily or almost daily [facility] [employer] Medical Equipment Procedure Code Equipment Code Equipment [...] prepare for safety after surgery. (Met today) Larder Cook Goals: Independent core exercises for mcc use to prevent reoccurrence. Return to normal activity of house work/leisure/ADLs with post op therapy as ordered by surgeon if needed. Functional Status Date Assessment Result Facility 05-31-2022 Functional Status N/A [facility] Clinical Notes 02-21-2022 to 06-24-2024 Casey Mohr MD - 06/24/2024 8:45 AM EDTDischarge InstructionsNursing Notes - Griselda Craig RN - 09/18/2023 2:38 PM ESTNursing Notes - Griselda Craig RN - 09/18/2023 2:38 PM ESTDischarge Instructions Note Date & Type Note Facility 06-24-2024 History of Present illness Narrative [facility] NOTE Chief Complaint Patient [...] medication through his pain management physician in [place]. He has a history of a lumbar [...] DEVICE Right 09/18/2023 Laterality: Right; Surgeon: Shaheen Chpapell MD; Location: [facility] FLUOROSCOPY IN [...] tablet by mouth daily every morning. aspirin, [id number], tablet Take 1 tablet by mouth daily. [...] lids. There is no papilledema on fundoscopy. 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 Last lab's reviewed from May 2024. [facility] 06-16-2024 Note -ranexa Dc'd- theref ore will increase imdur to 120 mg daily Pt to call for any concerns of chest pain/angina, lightheadedness or dizziness. [facility] 06-16-2024 Note Hypertension is well controlled. Continue taking metoprolol 25 mg and lisinopril 40 mg. [facility] 06-16-2024 Note Coronary artery dise ase is [...] [address] Marin to reassess [facility] 06-16-2024 Note [facility] CARDIOLOGY PROGR ESS NOTE HPI: Noel Alva is a 63 y.o. male here for hospital F/U HPI 63 yo male presents to clinic for hospital f/U after recent admit for Unstable angina, cardiac cath that did show moderate in-stent restenosis of LAD, otherwise mild-moderate multivessel disease. Pt is here from a follow up from being [facility]. Pt claims to have funny feeling [...] symptoms. 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 Review of Systems Cardiovascular: Positive for claudication and near-syncope. Respiratory: Positive for shortness of breath. Musculoskeletal: Positive for arthritis, back pain, joint pain and myalgias. Genitourinary: Positive for frequency. Neurological: Positive for dizziness, light-headedness and numbness. All other systems reviewed and are negative. Hospital Medicine Discharge Summary Final Discharge Diagnosis: Unstable angina Admission Diagnosis: Unstable angina ([facility]) [I20.0] Hospital course: 63yoM with past medical history of CAD s/p PCI to LAD, hypertension, hyperlipidemia, GERD who was admitted from to [facility] on 05/28 for unstable angina. Cardiology [...] pedis pulses are (more content not included)... [facility] 06-16-2024 Note Pt is here from a fo llow up from being [facility]. Pt claims to have funny feeling [...] All other systems reviewed and are negative. [facility] 05-31-2024 Note Hospital Medicine Discharge Summary Final Discharge Diagnosis: Unstable angina Admission Diagnosis: Unstable angina ([facility]) [I20.0] Hospital course: 63yoM with past medical history of CAD s/p PCI to LAD, hypertension, hyperlipidemia, GERD who was admitted from to [facility] on 05/28 for unstable angina. Cardiology [...] Center 06/16/2024 10:40 AM Lisa Maya NP [facility] Your medication list START taking these medications [...] Medications These medications were sent to [facility] - [address] [place] [address] [address] [facility] [place] [address], [facility] [address] atorvastatin 80 mg tablet metoprolol succinate XL [...] was 30 minutes. Signed Sydney Mclean MD [facility] Medicine 05/31/2024 5:10 PM CC: MD Magda [facility] 05-31-2024 Note Attestation signed by Destiney Currna MD at 06/01/2024 9:49 AM GC: I saw this patient. I personally performed the critical/argueta portions that determines the level of service. [...] Value Ventricular Rate 94 Atrial Rate 94 IN Interval 132 QRS DURATION 72 QT Interval 410 QTC CALCULATION(BAZETT) 512 P [place] 60 R-[place] 50 T Wave [place] 70 Impression Normal sinus rhythm Nonspecific ST [...] left radial artery was obtained. A 6 Bahamian glide sheath was inserted without difficulty. Bilateral [...] significant stenosis. Left (more content not included)... [facility] 05-31-2024 Note Cardiovascular Labor atory Report FINAL [...] left radial artery was obtained. A 6 Bahamian glide sheath was inserted without difficulty. Bilateral [...] a small caliber vessel INDICATIONS: Unstable angina [facility] 05-30-2024 Note Attestation signed by Kristian Palumbo [...] cardiac catheterization in a.m. Kristian Palumbo MD, [facility] Cardiology Progress Note Subjective Subjective: No acute [...] Value Ventricular Rate 94 Atrial Rate 94 IN Interval 132 QRS DURATION 72 QT Interval 410 QTC CALCULATION(BAZETT) 512 P [place] 60 R-[place] 50 T Wave [place] 70 Impression Normal sinus rhythm Prolonged QT [...] of the LAD in 2005 cath at [facility] 01/12/2018 due to chest pain that showed minimal disease and patent LAD stent. HTN HLD Plan: Continue aspirin, BB and statin Check modifiable risk factors including lipid panel and hemoglobin A1C Obtain TTE to assess cardiac function NPO after midnight for tentative heart catheterization tomorrow Maintain telemetry Optimize electrolytes Lucero Vann MD Post Office Manager - PGY5 [facility] 05-30-2024 Note Hospital Medicine Daily Progress Note - 05/30/2024 8:09 AM; Room: [address] [place] [address] Admission: 05/28/2024 3:36 PM; Length of stay: 2 days THE HOSPITALIST TEAM PREFERS TO USE [employer] CHAT FOR COMMUNICATION 7AM-7PM. IF I DO NOT RESPOND WITHIN 15 MINUTES, PLEASE PAGE ME/CALL THROUGH THE PANEL BEATER. FROM 7PM-7AM, PLEASE PAGE [phone](COVR) Code Status: Full Code Barriers to Discharge: [...] (CMS/HCC) Active Problems: Coronary artery disease involving seneca-cayuga coronary artery of seneca-cayuga heart with unstable angina pectoris (CMS/HCC) Dyslipidemia Primary hypertension GERD (gastroesophageal reflux disease) Assessment and Plan Unstable angina CAD of seneca-cayuga arteries of seneca-cayuga heart Hypertension Bradycardia Hyperlipidemia -Trop negative, EKG [...] 86 05/28/2024 Lab Results Component Value Date [id number] 05/29/2024 Imaging US neck Narrative: US [...] Self Care () Signed Sydney Mclean MD [facility] Medicine 05/30/2024 8:09 AM [facility] 05-29-2024 Note 05/29/24 0939 Admission Assessment Questions [...] Status Interested Does the patient have a immigration case manager assigned to them through their insurance? No [...] to send link and activate MyChart? No [facility] 05-29-2024 Note Hospital Medicine Daily Progress Note - 05/29/2024 9:15 AM; Room: [address] [place] [address] Admission: 05/28/2024 3:36 PM; Length of stay: 1 days THE HOSPITALIST TEAM PREFERS TO USE [employer] CHAT FOR COMMUNICATION 7AM-7PM. IF I DO NOT RESPOND WITHIN 15 MINUTES, PLEASE PAGE ME/CALL THROUGH THE PANEL BEATER. FROM 7PM-7AM, PLEASE PAGE [phone](COVR) Code Status: Full Code Barriers to Discharge: [...] (CMS/HCC) Active Problems: Coronary artery disease involving seneca-cayuga coronary artery of seneca-cayuga heart with unstable angina pectoris (CMS/HCC) Dyslipidemia Primary hypertension GERD (gastroesophageal reflux disease) Assessment and Plan Unstable angina CAD of seneca-c[place]uga arteries of seneca-cayuga heart Hypertension Bradycardia Hyperlipidemia -Trop negative, EKG [...] LDL 86 05/28/2024 No results found for: MFCANMPH16 , IRON , TIBC , C3 , [...] Mclean MD Hospital Medicine 05/29/2024 9:15 AM [facility] 05-28-2024 Note Hospital Medicine History and Physical 05/28/2024 6:22 PM THE HOSPITALIST TEAM PREFERS TO USE [employer] CHAT FOR COMMUNICATION 7AM-7PM. IF I DO NOT RESPOND WITHIN 15 MINUTES, PLEASE PAGE ME/CALL THROUGH THE PANEL BEATER. FROM 7PM-7AM, PLEASE PAGE [phone](COVR) Chief Complaint Direct admission from [facility] with unstable angina History of Present Illness Noel Alva is an 63 y.o. male who came from home with past medical history of CAD s/p PCI, hypertension, hyperlipidemia, GERD presents a direct admission from with a chief complaint of chest pain. 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 Reports that he was recently [...] was transferred as a direct admission from to [facility] for cardiac catheterization in the a.m. with [...] D deficiency 11/24/2023 Osteoarthritis of sacroiliac joint ([facility]) 09/08/2023 Dyslipidemia 01/02/2023 S/P angioplasty with stent 01/02/2023 Atypical chest pain 12/30/2022 Viral syndrome 12/30/2022 Intermittent claudication ([facility]) 04/02/2021 Paresthesia of upper limb 04/02/2021 Peripheral vascular disease ([facility]) 04/02/2021 Primary hypertension 04/02/2021 Acute gout of right wrist 03/09/2021 S/P cardiac cath 01/12/2018 Coronary artery disease involving seneca-cayuga coronary artery of seneca-cayuga heart with unstable angina pectoris ([facility]) 01/10/2018 Mild intermittent asthma without complication 01/10/2018 Unstable angina ([facility]) 01/10/2018 Assessment and Plan Noel Alva is an 63 y.o. male who came from home with past medical history of CAD s/p PCI, hypertension, hyperlipidemia, GERD presents a direct admission from [place] (more content not included)... [facility] 05-28-2024 Note [place] Cardiology - [facility] Subjective Noel Alva is a [...] within normal limits. He underwent cath at [facility] 01/12/2018 due to chest pain [...] 1 tablet b (more content not included)... [facility] 02-11-2024 Note [place] Cardiology - [facility] Subjective Noel Alva is a [...] within normal limits. He underwent cath at [facility] 01/12/2018 due to chest pain [...] the morning. D (more content not included)... [facility] 2023 Hospital Discharge instructions Nadia Fitzpatrick [...] care or concern. documented in this encounter [facility] 09-18-2023 Note #Cardiac risk strati fication -Stress [...] Normal diastolic function No significant valvular abnormalities [facility] 09-18-2023 Nurse Note Pt provided with discharge instructions. Pt Iv removed and belongings gathered. Pt was wheeled to car by surgery staff and driven home by family. [facility] COTA Track [facility] 09-18-2023 Miscellaneous Notes Pt provided with [...] this time POST OPERATIVE/PROCEDURE NOTE Noel Alva ([id number]) SURGEON Surgeon(s) and Role: * Shaheen Chappell MD - Primary COLLAR WORKER Marques ANESTHESIOLOGIST BI APPLICATION DEVELOPER: Avinash Adams APRN-BI APPLICATION DEVELOPER Student Nurse Lab Technician: Amanda Murphy SURGICAL STAFF Vector Control Specialist: Caryn Tineo RN Registered Nurse Outside Installation Machinist: Angeline Mohan RN Scrub Person: Luiza Kvng [...] 2023 12:13 PM documented in this encounter [facility] 09-18-2023 Nurse Note OT in with pt at this time [facility] 09-18-2023 History of Present illness [...] and can help during recovery) Primary Language Lithuanian PRIOR LEVEL AM-PAC Activity Inpatient Short Form [...] LUE Assessment WFL Supine to Sit Mobility [place] Level: Supine->Sit contact guard assist Bed Features/Set-up: Supine->Sit Flat Skilled Rationale Verbal cues Skilled Intervention/Details: Supine->Sit pt reorted that he knew how to log roll but twisted to get up even with vcs and attempts to physically assist with proper technique Sit to Stand Transfer [place] Level: Sit->Stand contact guard assist Assistive Device: Sit->Stand 2 wheeled walker Skilled Rationale Hand placement;Verbal cues Skilled Intervention/Details: Sit->Stand pt pulling up on the walker with both hands- cues to push off Stand to Sit Transfer [place] Level: Stand->Sit stand-by assist Assistive Device: Stand->Sit [...] assist with R sock Acute AMPA Acute [facility] Assessments Daily Activity Inpatient Short Form [...] Low (problem-focused assessments w/limited treatment options) 09/18/23 7341 Surgery Information RN Approved Intervention as tolerated Referring Physician Dr. Cahppell Surgery date 09/18/23 Type of Surgery Right [...] bed mobility & transfers with supervision to SD. He was provided education review with log [...] Completed? yes Therapist Information License # [place] [id number] General Information Pertinent History of Current Problem The patient is a 62 year old male with sacroiliitis who underwent Right SI fixation. He was referred to physical therapy for post procedure education review & mobility. Jc Farmer, PT documented in this encounter [facility] 09-18-2023 Nurse Note Pt ambulating in [place] with PT without difficulty. [facility] 09-18-2023 Nurse Note PT in with pt at this time [facility] 09-18-2023 Nurse Note Discharge instructions provided, pt states understanding, including the sedentary activity as described, denies questions. [facility] 09-18-2023 Hospital Discharge instructions Venecia Rivera RN - 09/18/2023 1:[address] Chappell [facility] Post-Operative Spine Surgery Home Going [...] take percocet prescribed by . Proceed with Gallup as prescribed by Dr. Chappell-when Gallup is completed, you may resume percocet from [...] this carefully. Please attend family, community and catholic events as soon as possible after your [...] should be faxed. documented in this encounter [facility] 09-18-[address] Chappell in to see pt at this time [facility] 09-18-2023 Surgery Postoperative evaluation and management note POST OPERATIVE/PROCEDURE NOTE Noel Alva ([id number]) SURGEON Surgeon(s) and Role: * Shaheen Chappell MD - Primary COLLAR WORKER Marques ANESTHESIOLOGIST BI APPLICATION DEVELOPER: Avinash Adams APRN-BI APPLICATION DEVELOPER Student Nurse Lab Technician: Amanda Murphy SURGICAL STAFF Vector Control Specialist: Caryn Tineo RN Registered Nurse Outside Installation Machinist: Angeline Mohan RN Scrub Person: Luiza Calderon [...] Chappell MD September 18, 2023 12:13 PM [facility] 08-14-2023 History of Present illness Narrative [facility] NOTE Chief Complaint Patient [...] does not smoke. He is managed by [facility] in [place]. He is receiving Percocet and Lyrica. Lyrica [...] lids. There is no papilledema on fundoscopy. upholstery tech III, IV and : Extraocular movements full [...] being managed by his pain doctors in [place]. Noel was seen today for new patient. Diagnoses and all orders for this visit: Hereditary and idiopathic peripheral neuropathy - HEMOGLOBIN A1C; Future - B12 & FOLATE; Future - VITAMIN B6; Future - MILENA AND PE, SERUM; Future Hyperreflexia - MRI SPINE CERVICAL WITHOUT CONTRAST; Future - MRI SPINE THORACIC WITHOUT CONTRAST; Future Casey Mohr MD 08/14/2023 documented in this encounter [facility] 08-13-2023 Note Patient here for 1 [...] his right hip with Dr. Chappell in [place]. Had labs in December 2022. Review of Systems Cardiovascular: Positive for chest pain, claudication and dyspnea on exertion. Musculoskeletal: Positive for arthritis, back pain, joint pain and myalgias. Neurological: Positive for numbness. All other systems reviewed and are negative. [facility] 08-13-2023 Note Cardiovascular Medic ine [place] [facility] SUBJECTIVE Chief Complaint Patient presents with [...] his right hip with Dr. Chappell in [place]. Had labs in December 2022. history of CAD s/p stenting of the LAD in 2004, echocardiogram in 2010 was within normal limits. He underwent cath at [facility] 01/12/2018 due to chest pain [...] ASHD (arteriosclerotic heart disease) Dyslipidemia Intermittent claudication ([facility]/HCC) Mild intermittent asthma without complication Paresthesia of upper limb Peripheral vascular disease ([facility]) Primary hypertension S/P angioplasty with stent S/P cardiac cath Unstable angina ([facility]) Viral syndrome Past Medical History: Diagnosis Date Coronary artery disease Hypertension PVD (peripheral vascular disease) ([facility]) Family History Problem Relation Name Age of [...] Mood and Affect (more content not included)... [facility] 07-16-2023 History of Present illness Narrative [...] by: Jennie Hernandez MD Authorized by: Jennie Hernadnez MD Supporting Documentation Indications: pain and osteoarthritis [...] therapy, medications, SI belt, therapeutic injections. Inadequate termite helper relief from therapeutic injection. 100% relief [...] therapy, medications, SI belt, therapeutic injections. Inadequate mcc relief from therapeutic injection. 100% relief while [...] findings. Additions if any: Jennie Hernandez MD, [facility] Supply Chain Project Manager - [facility] documented in this encounter [facility] 07-16-2023 Instructions Eric Luu - 07/16/2023 1:40 [...] associated with corticosteroids. documented in this encounter [facility] 07-04-2023 History of Present illness [...] Topical creams Physical therapy? Done recently at [facility] Xrays? Lumbar spine 12/2022 done at [place], bilateral hips and pelvis 01/08/23 MRI? 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 Done recently at [facility] Xrays? Lumbar spine 12/2022 done at [place], bilateral hips and pelvis 01/08/23 MRI? 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 Additions if any: Jennie Hernandez MD, CAQSM [facility] Supply Chain Project Manager - [facility] documented in this encounter [facility] [employer]OTA Track [facility] 06-10-2023 History of Present illness Narrative [...] findings. Additions if any: Jennie Hernandez MD, [facility] Supply Chain Project Manager - [facility] documented in this encounter [facility] 05-19-2023 History of Present illness Narrative Referred [...] Topical creams Physical therapy? Done recently at [facility] Xrays? Lumbar spine 12/2022 done at [place], bilateral hips and pelvis 01/08/23 MRI? 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 Done recently at [facility] Xrays? Lumbar spine 12/2022 done at [place], bilateral hips and pelvis 01/08/23 MRI? 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 Additions if any: Jennie Hernandez MD, [facility]ics and Sports Medicine Supply Chain Project Manager - [facility] documented in this encounter [facility] 04-18-2023 History of Present illness Narrative Patient [...] Additions if any: Jennie Hernandez MD, CAM [facility] and Sports Medicine Supply Chain Project Manager - [facility] documented in this encounter [facility] 04-18-2023 Instructions Eric Luu - [...] associated with corticosteroids. 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 Noel may call the office with any questions or concerns. 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 Noel may call the office with any questions or concerns. Referrals:None Medications prescribed today: None Follow up plan: Sports US guided left sacroiliac joint injection with ASSESSMENT NURSE PRACTITIONER Complexity of problem(s): Mild Risk of morbidity [...] Additions if any: Jennie Hernandez MD, CAM [facility] and Sports Medicine Supply Chain Project Manager - [facility] documented in this encounter [facility] 12-31-2022 History of Present illness Narrative Casing Man reviewed discharge instructions with patient. No new [...] home following this hospitalization. Patient resides in [place] alone. He uses no DME and has no outside resources or services currently in place. 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 He is independent with all activities of [...] Priscilla, as his decision maker if needed. MATH INSTRUCTOR to monitor and assist with any further [...] Well developed, well nourished with no malnutrition [employer] [place] [place] Production Supervisor consult initiated Hospital Prophylaxis: DVT: Lovenox Stress [...] SATISFY MIPS PERFORMANCE] Cece Villalobos APRN - CORN SHELLER , DRY HEAT CABINET ATTENDANT, TURFGRASS TECHNICIAN-C Hospitalist Medicine 12/31/2022, 9:21 AM Associated attestation - Kendell Alvarado MD - 12/31/2022 5:52 PM EDT Images from the original note were not included. [address], [address] Attestation Patient: Noel Alva Date of Admission: 12/30/2022 6:09 AM Hospital Day # 1 Date of Evaluation: 12/31/2022 I personally evaluated and examined the patient [id number] in conjunction with the PA/TURFGRASS TECHNICIAN and agree with the management and dispostition of the patient. Please see the PA/TURFGRASS TECHNICIAN's note for full details. My argueta findings [...] with the plan as outlined in the TURFGRASS TECHNICIAN/PA's note Disposition: Discharge plan is pending Please note that this chart was generated using voice recognition [employer] dictation software. Although every effort was made to ensure the accuracy of this automated infantry indirect fire crewmember, some errors in infantry indirect fire crewmember may have occurred. Kendell Alvarado MD 12/31/2022 5:52 PM Casing Man to bedside to complete morning assessment. Upon entry to room, pt sitting up in bed, respirations even and unlabored while on room air. Vitals obtained and assessment completed, see flow sheet for details. Dr Alvarado at bedside, reviewed pts blood pressure medications with him, okay to hold Norvasc and Metoprolol this morning. Pt denies needs from telegraphic typewriter operator chief at this time. Call light in reach. Care ongoing. Noted telegraphic typewriter operator chief had not urinated yet this shift. When [...] bedside table are within reach, will monitor. Casing Man offered meds to bed but patient declined. Echocardiogram/Doppler done at bedside. Instructed on policies and procedure. Spoke to cristian Zhao CNP for telegraphic typewriter operator chief to correct home medications. Okay to add: protonix, iron, Mobic, Lisinopril, and Amlodipine. Cardiology consult called to office. When reviewing home medications it was noted that there were some differences in doses of medications. Called [facility] and clarified medications. Will update [...] reach. Care ongoing. documented in this encounter [facility] [employer] [address] [employer] Phone: 12-31-2022 Hospital Discharge instructions Ana Gutierres [...] low fat documented in this encounter [employer] Work Phone: 12-31-2022 Hospital course Narrative Discharge [...] sharp in the left chest. No radiation. [place] burning sensation when the chest pain subsided. [...] discharge home he will follow-up with his litigation secretary in [place]. Consultants: Dr. Mohr, cardiology Procedures: Stress Test [...] (Neck pain) Vitamin D3 50 MCG (1999 SD) Tabs STOP taking these medications dicyclomine 10 MG capsule Commonly known as: Bentyl Where to Get Your Medications These medications were sent to [facility] [address] [place], [place] [address] [facility] 18 - P [phone] - F [phone] [address] atorvastatin 20 MG tablet Patient Instructions: Activity: activity as tolerated Diet: cardiac diet Wound Care: none needed Other: None Disposition: Discharge to Home Follow up: Patient will be followed by Romario Man MD in 1-2 weeks CORE MEASURES on Discharge (if applicable) BRITTNY/ARB in CHF: NA Statin in SD: NA ASA in SD: NA Statin in CVA: NA Antiplatelet in CVA: NA Total time spent on discharge services: 40 minutes Including the following activities: Evaluation and Management of patient Discussion with patient and/or surrogate about current care plan Coordination with Case Management and/or Medical Office Worker Coordination of care with Consultants (if applicable) Coordination of care with Receiving Facility Physician (if applicable) Completion of DME forms (if applicable) Preparation of Discharge Summary Preparation of Medication Reconciliation Preparation of Discharge Prescriptions Signed: Ceec Villalobos APRN - SREEDHAR, DRY HEAT CABINET ATTENDANT, TURFGRASS TECHNICIAN-C 12/31/2022, 5:06 PM Associated attestation - Kendell Alvarado MD - 12/31/2022 5:53 PM EDT Images from the original note were not included. [address], [address] Attestation Patient: Noel Alva Date of Admission: 12/30/2022 6:09 AM Hospital Day # 1 Date of Evaluation: 12/31/2022 I personally evaluated and examined the patient [id number] in conjunction with the PA/TURFGRASS TECHNICIAN and agree with the management and dispostition of the patient. Please see the PA/TURFGRASS TECHNICIAN's note for full details. My argueta findings [...] care plan Coordination with Case Management and/or Medical Office Worker Coordination of care with Consultants (if applicable) [...] this chart was generated using voice recognition [employer] dictation software. Although every effort was made to ensure the accuracy of this automated infantry indirect fire crewmember, some errors in infantry indirect fire crewmember may have occurred. Kendell Alvarado MD 12/31/2022 5:53 PM documented in this encounter [facility] [employer] Work Phone: 11-14-2022 Note CONSULTATION CONSULTATION DATE: [...] falls or foot drop. 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 He did have to take two days off of work last week, which his very unlike him. He had trouble getting out of bed due to increased pain. He is prescribed Gallup 5/325 t.i.d., but due to pain, patient [...] radiculopathy, lumbar spondylosis. PLAN: Patient brought his Gallup in today for a pill count. We will change his medication to Percocet 5/325 t.i.d. and increase his Lyrica to 100 mg b.i.d. I did recommend a Neurosurgery referral, which the patient does agree to. We will send a referral to Dr. Shaheen Chappell at [facility] in [place]. We will continue to manage his medications at this time, and we will see him in the clinic in three months. Patient agrees with this plan. The 10-16-2022 Note CONSULTATION CONSULTATION DATE: 10/16/2022 HISTORY [...] use a cane. His current medications include Gallup 5/325 b.i.d. and Aleve p.r.n. He has [...] next three days, we will increase his Gallup 5/325 to t.i.d. We will start also [...] Patient does agree with this plan. The 08-22-2022 Note CONSULTATION CONSULTATION DATE: 08/22/2022 HISTORY [...] weakness. Medications include Mobic 15 mg daily, Gallup 5/325 b.i.d. and tizanidine 4 mg q.h.s. [...] a menthol rub. We will maintain his Gallup 5/325 b.i.d. and he was instructed to use Voltaren to hi right CMC joint. Patient agrees with the plan of care and will be followed up in the office thereafter. The 06-26-2022 Note OPERATIVE NOTE OPERATION DATE: 06/26/2022 [...] good condition. CC: Romario Man M.D. The 06-01-2022 Note Chief Complaint consultation for iron [...] # 90 tab(s), Refills(s) 3, Pharmacy: [id number], 167.6, cm, 05/31/22 14:31:00 EDT, Height/Length Dosing, 72.8, kg, 05/31/22 14:31:00 EDT, Weight Dosing 3. Hematemesis (K92.0: Hematemesis) see # 1 Ordered: pantoprazole, 40 mg = 1 tab(s), Oral, BID, # 90 tab(s), Refills(s) 3, Pharmacy: [facility], 167.6, cm, 05/31/22 14:31:00 EDT, Height/Length Dosing, 72.8, kg, 05/31/22 14:31:00 EDT, Weight Dosing Follow-up No qualifying data available Problem List/Past Medical History Ongoing Asthma BMI 25.0-25.9,adult CAD in [place] artery DDD (degenerative disc disease), lumbar Depression [...] 325 mg or (more content not included)... [facility] Comment on above: Result Comment: Elec [...] procedure well with no overt complications. The 05-30-2022 Note CONSULTATION CONSULTATION DATE: 05/30/2022 HISTORY [...] Medications include Mobic 15 mg daily and Gallup 5/325 b.i.d. He does take tizanidine 4 [...] indicated. Patient agrees with this plan. The 04-03-2022 Note CONSULTATION CONSULTATION DATE: 04/03/2022 HISTORY [...] and his workup at the ER in [place] warranted no findings. Today, he reports consistent [...] mg q.h.s., Mobic 15 mg daily and Gallup 5/325 b.i.d. p.r.n. Activities such as standing, [...] by: JULIANE MASSEY . 04/04/2022 13:38:00 The 02-21-2022 Note CONSULTATION CONSULTATION DATE: 02/21/2022 This [...] Medications include Mobic 15 mg q. day, Gallup 5/325 b.i.d. and tizanidine 4 mg q.h.s., [...] cervical neuritis. PLAN: We will refill his Gallup today 5/325 b.i.d., p.r.n. We will move [...] by: JULIANE MASSEY . 02/25/2022 15:08:00 The Evaluation + Plan note No data available for this section General Surgery Yessy Evaluation note Diagnosis Acute gout of right wrist, unspecified cause- Primary documented in this encounter [employer] Phone: evaluation note* Diagnosis Chronic fatigue Other malaise and fatigue [facility]: evaluation note* Diagnosis Atypical chest pain- Primary Other chest pain Chest pain, unspecified type Viral syndrome Unspecified viral infection, in conditions classified elsewhere and of unspecified site documented in this encounter [facility]N [facility] [employer] Phone: evaluation note* Diagnosis Osteoarthritis of left sacroiliac joint- Primary Lumbar spondylosis Lumbosacral spondylosis without myelopathy Lower extremity numbness Disturbance of skin sensation [facility] Diagnosis Osteoarthritis of left sacroiliac joint [facility] Diagnosis Osteoarthritis of left sacroiliac joint- Primary Osteoarthritis of left sacroiliac joint [facility]* Diagnosis Osteoarthritis of left sacroiliac joint- Primary Pain of left sacroiliac joint Disorders of sacrum Lumbar spondylosis Lumbosacral spondylosis without myelopathy documented [facility]* Diagnosis Osteoarthritis of right [...] Hyperreflexia Abnormal reflex [facility]* Diagnosis Sacroiliitis- Primary Sacroiliitis, not elsewhere classified [facility] Diagnosis Viral illness- Primary Unspecified viral infection, in conditions classified elsewhere and of unspecified site documented in this encounter [facility]* Diagnosis Hereditary and idiopathic peripheral neuropathy- Primary Unspecified hereditary and idiopathic peripheral neuropathy Hyperreflexia Abnormal reflex [facility]* Attachments The following attachments cannot be sent through Care Everywhere. * Gout (Lithuanian) [facility] Discharge instructions No data available for this section General Surgery [place] [facility] note No data available for this section General Surgery [facility] Reason for referral (narrative)* Consultation (Routine) - Auth Not Needed Specialty Diagnoses / Procedures Referred By Anni t Referred To Contact Neurology Diagnoses Polyneuropathy Jennie Hernandez MD [address] [place] [phone] Casey Mohr MD [address] [place] [phone] Referral ID Status Reason Start Date Expiration Date V isits Requested Visits Authorized [id number] Auth Not Needed 06/10/2023 07/04/2024 1 1 * Radiology (Routine) - New Request Specialty Diagnoses / Procedures Referred By Contac t Referred To Contact Diagnoses Osteoarthritis of left sacroiliac joint Pain of left sacroiliac joint Procedures US IMAGING FOR ORTHO Jennie Hernandez MD [address] [place] [phone] Referral ID Status Reason Start Date Expiration Date V isits Requested Visits Authorized [id number] New Request 06/10/2023 07/04/2024 1 1 [facility] Consultation (Routine) - Schedule Outgoing - Transfer of Care Specialty Diagnoses / Procedures Referred By Contac t Referred To Contact Neurologic Surgery Diagnoses Osteoarthritis of both sacroiliac joints Pain of both sacroiliac joints Jennie Hernandez MD [address] [place] [address] Referral ID Status Reason Start Date Expiration Date V isits Requested Visits Authorized [id number] Schedule Outgoing - Transfer of Care 07/16/2023 08/09/2024 1 1 * Radiology (Routine) - New Request Specialty Diagnoses / Procedures Referred By Contac t Referred To Contact Diagnoses Osteoarthritis of both sacroiliac joints Pain of both sacroiliac joints Procedures US IMAGING FOR ORTHO Jennie Hernandez MD [address] [place] [address], [place] [address] Referral ID Status Reason Start Date Expiration Date V isits Requested Visits Authorized [id number] New Request 07/16/2023 08/09/2024 1 1 [facility] (n[facility]ative)* (Routine) Specialty Diagnoses / Procedures Referred By Anni t Referred To Contact [facility] [address] [place] [address] Referral ID Status Reason Start Date Expiration Date Visits Re quested Visits Authorized [facility] Summary Purpose Family History No [...] FoundDocuments on File Type Date Recorded Patient Parts Data Writer Expl anation Advance Directives and Living Will Power of Seo Analyst Latest Code Status on File Code Status Date Activated Date Inactivated Comments Full Code 01/12/2018 8:34 PM 01/13/2018 3:53 PM Full Code 01/10/2018 3:36 PM 01/12/2018 8:34 PM Documents on File Type Date Recorded Patient Parts Data Writer Expl anation ACP-Advance Directive ACP-Power of Seo Analyst Documents on File Type Date Recorded Patient Parts Data Writer Expl anation ACP-Advance Directive ACP-Power of Seo Analyst Latest Code Status on File Code Status [...] Agents on File Name Relationship Healthcare Agent Christalwi p Communication Priscilla Alva Child Primary Decision Maker Discharge Instructions * Attachments The following attachments cannot be sent through Care Everywhere. * Chest Pain (Lithuanian) * Back Pain (Lithuanian) * Shoulder Pain (Lithuanian) documented in this encounter* Instructions* Justice Shaver [...] sent through Care Everywhere. * Neck Spasm (Lithuanian) documented in this encounter* Attachments The following attachments cannot be sent through Care Everywhere. * Abdominal Pain (Lithuanian) * Acid-Reducing Medicines: General Info (Lithuanian) documented in this encounter Assessments Diagnosis Chronic [...] Procedures VL DUP CAROTID BILATERAL ZulmaLisa neal, DRY HEAT CABINET ATTENDANT - CORN SHELLER [address] [place] [address] Specialty Diagnoses / Procedures Referred By Contac t Referred To Contact Diagnoses Lower extremity numbness Procedures EMG & NERVE CONDUCTION Jennie Hernandez MD [address] [place] [address] Jw Capps MD [address] [place] [address] Referral ID Status Reason Start Date Expiration Date V isits Requested Visits Authorized [id number] Pending Review 02/25/2023 03/21/2024 1 1 Specialty Diagnoses / Procedures Referred By Contac t Referred To Contact Diagnoses Osteoarthritis of left sacroiliac joint Procedures US IMAGING FOR ORTHO Jennie Hernandez MD [address] [place] [address] Referral ID Status Reason Start Date Expiration Date V isits Requested Visits Authorized [id number] New Request 04/18/2023 05/12/2024 1 1 Specialty Diagnoses / Procedures Referred By Contac t Referred To Contact Diagnoses Osteoarthritis of both sacroiliac joints Pain of both sacroiliac joints Procedures US IMAGING FOR ORTHO Jennie Hernandez MD [address] [place] [address] Referral ID Status Reason Start Date Expiration Date V isits Requested Visits Authorized [id number] New Request 07/16/2023 08/09/2024 1 1 Specialty Diagnoses / Procedures Referred By Contac t Referred To Contact Diagnoses Hyperreflexia Procedures MRI SPINE THORACIC WITHOUT CONTRAST IN MRI, DORSAL SPINE Casey Mohr MD [address] [place] [address] Referral ID Status Reason Start Date Expiration Date V isits Requested Visits Authorized [id number] New Request 08/14/2023 09/07/2024 1 1 Specialty Diagnoses / Procedures Referred By Contac t Referred To Contact Diagnoses Hyperreflexia Procedures MRI SPINE CERVICAL WITHOUT CONTRAST IN MRI, CERV SPINE Casey Mohr MD [address] [place] [address] Referral ID Status Reason Start Date Expiration Date V isits Requested Visits Authorized [id number] New Request 08/14/2023 09/07/2024 1 1 Specialty Diagnoses / Procedures Referred By Contac t Referred To Contact Diagnoses Hyperreflexia Procedures MRI SPINE THORACIC WITHOUT CONTRAST CHG MRI SPINAL CANAL THORACIC W/O CONTRAST Casey Truong MD [address] [place], [place] [phone] Referral ID Status Reason Start Date Expiration Date V isits Requested Visits Authorized [id number] New Request 06/24/2024 07/19/2025 1 1 Specialty Diagnoses / Procedures Referred By Contac t Referred To Contact Diagnoses Hyperreflexia Procedures MRI SPINE CERVICAL WITHOUT CONTRAST CHG MRI SPINAL CANAL CERVICAL W/O CONTRAST Casey Truong MD [address] [place] [address] Referral ID Status Reason Start Date Expiration Date V isits Requested Visits Authorized [id number] New Request 06/24/2024 07/19/2025 1 1 Additional Source Comments (unrecognized sect ion and content) No Status Records FoundNo Status Records FoundNo Status Records FoundNo Status Records FoundNo Status Records FoundNo Status Records FoundNo Status Records FoundNo Status Records FoundNo Status Records FoundNo Status Records FoundNo Status Records Found INFORMATION SOURCE (unrecogn ized section and content) DATE CREATED AUTHOR 03/26/2018 [facility] DATE CREATED AUTHOR AUTHOR'S ORGANIZ ATION 03/26/2018 [facility] DATE CREATED AUTHOR AUTHOR'S ORGANIZ ATION 07/11/2022 [facility] DATE CREATED AUTHOR AUTHOR'S ORGANIZ ATION 01/18/2023 [facility] DATE CREATED AUTHOR AUTHOR'S ORGANIZ ATION 07/18/2023 [facility] DATE CREATED AUTHOR AUTHOR'S ORGANIZ ATION 09/22/2023 [facility] DATE CREATED AUTHOR AUTHOR'S ORGANIZ ATION 10/11/2023 [facility] DATE CREATED AUTHOR AUTHOR'S ORGANIZ ATION 11/25/2023 [facility] DATE CREATED AUTHOR AUTHOR'S ORGANIZ ATION 03/25/2024 [facility] DATE CREATED AUTHOR AUTHOR'S ORGANIZ ATION 06/18/2024 [facility] DATE CREATED AUTHOR AUTHOR'S ORGANIZ ATION 06/26/2024 [facility] Reason for Visit (unrecogniz ed section and content) Reason Comments Shoulder Pain ongoing for past wee k worse today Neck Pain worse today Chest Pain ongoing for one week worse today Reason Comments Neck Pain burning/shooting kalen n, BL posterior neck. REcent nerve procedure with pain management. Out of Gallup for 2 days. Reason Comments Flank Pain pt staes bilateral f alnk pain, onset Friday Status Reason Specialty Diagnoses / Procedures Referred By Contact Referred To Contact Authorized Stress Lab Diagnoses Atherosclerotic heart disease of [place] coronary artery without angina pectoris Procedures HC NM LEXISCAN STRESS W NUC HC NM SEST. REST STRESS MULT [id number] NM STRESS Lisa Maya, DRY HEAT CABINET ATTENDANT - CORN SHELLER [address] [place] [address] [facility] [address] [place], [place] [id number] Status Reason Specialty Diagnoses / Procedures Referre d By Contact Referred To Contact Closed Vascular Lab Diagnoses Other specified peripheral vascular diseases Procedures HC EXTRACRANIAL BILAT STUDY [id number] US CAROTIDS Lisa Maya, DRY HEAT CABINET ATTENDANT - CORN SHELLER [address] [place] [address] [facility] [address] [place] [phone] Status Reason Specialty Diagnoses / Procedures Referred By Contact Referred To Contact Closed Stress Lab Diagnoses Atherosclerotic heart disease of [place] coronary artery without angina pectoris Procedures HC NM LEXISCAN STRESS W NUC HC NM SEST. REST STRESS MULT [id number] NM STRESS Lisa Maya, DRY HEAT CABINET ATTENDANT - CORN SHELLER [address] [place] [address] [facility] [address] [place] [address] Reason Comments Wrist Pain Right, onset last [...] pain, unspecified type Kendell Alvarado MD [address] [facility] [address] [place] [address] [facility] [address] [place] [address] Referral ID Status Reason Start Date Expiration Date Visits Re quested Visits Authorized [id number] 1 1 Reason Comments Pain New Patient Specialty Diagnoses / Procedures Referred By Contac t Referred To Contact Diagnoses Osteoarthritis of left sacroiliac joint Procedures US IMAGING FOR ORTHO Jennie Hernandez MD [address] [place] [address] Referral ID Status Reason Start Date Expiration Date V isits Requested Visits Authorized [id number] New Request 04/18/2023 05/12/2024 1 1 Reason Comments Pain Joint Injection Reason Comments Pain Follow-up Reason Comments Pain Specialty Diagnoses / Procedures Referred By Contac t Referred To Contact Diagnoses Osteoarthritis of both sacroiliac joints Pain of both sacroiliac joints Procedures US IMAGING FOR ORTHO Jennie Hernandez MD [address] [place] [address] [place] [address] Referral ID Status Reason Start Date Expiration Date V isits Requested Visits Authorized [id number] New Request 07/16/2023 08/09/2024 1 1 Reason Comments Pain Right Sacroiliac laurent nt Follow-up Right Sacroiliac laurent nt Joint Injection Right Sacroiliac laurent nt Reason Comments New Patient bilateral lower limb polyneuropathy Specialty Diagnoses / Procedures Referred By Anni antonio Referred To Contact Neurology Diagnoses Polyneuropathy Jennie Hernandez MD [address] [facility] [place] [address] Casey Mohr MD [address] [place] [address] Referral ID Status Reason Start Date Expiration Date Visits Re quested Visits Authorized [id number] Closed 06/10/2023 07/04/2024 1 1 Specialty Diagnoses / Procedures Referred By Anni antonio Referred To Contact Diagnoses Sacroiliitis Sacroiliitis [M46.1] Procedures IN ARTHRODESIS SACROILIAC JOINT PERCUTANEOUS CHG FLUOROSCOPY UP TO 1 HOUR PHYSICIAN/QHP TIME IN IMPLANT/INSERT DEVICE, NOC PROSTHETIC IMPLANT NOS ARTHRODESIS SACROILIAC JOINT MINIMALLY INVASIVE W/ TRANSFIXING DEVICE FLUOROSCOPY IN OR Shaheen Chappell MD [address] [place] [address] Referral ID Status Reason Start Date Expiration Date Visits Re quested Visits Authorized [id number] 09/11/2023 1 1 Reason Comments Influenza Symptoms [...] mg from all sources in 24 hours. 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 Relationship Specialty Start Date End Date Romario Man MD [address] [place] [address] PCP - General Family Medicine 06/14/19 Otr Owner Operator Truck Driver Relationship Specialty Start Date End Date Romario Man MD [address] [place] [address] PCP - General Family Medicine 06/14/19 Otr Owner Operator Truck Driver Relationship Specialty Start Date End Date Romario Man MD [address] [place] [address] PCP - General Family Medicine 04/18/23 Otr Owner Operator Truck Driver Relationship Specialty Start Date End Date Romario Man MD [address] [place] [address] PCP - General Family Medicine 04/18/23 Otr Owner Operator Truck Driver Relationship Specialty Start Date End Date Romario Man MD [address] [place] [address] PCP - General Family Medicine 04/18/23 Otr Owner Operator Truck Driver Relationship Specialty Start Date End Date Romario Man MD [address] [place] [address] PCP - General Family Medicine 04/18/23 Otr Owner Operator Truck Driver Relationship Specialty Start Date End Date Romario Man MD [address] [place] [address] PCP - General Family Medicine 04/18/23 Otr Owner Operator Truck Driver Relationship Specialty Start Date End Date Romario Man MD [address] [place] [address] PCP - General Family Medicine 04/18/23 Otr Owner Operator Truck Driver Relationship Specialty Start Date End Date Romario Man MD [address] [place] [address] PCP - General Family Medicine 04/18/23 Otr Owner Operator Truck Driver Relationship Specialty Start Date End Date Romario Man MD [address] [place] [address] PCP - [facility] 04/18/23 Otr Owner Operator Truck Driver Relationship Specialty Start Date End Date Romario Man MD [address] [place] [address] PCP - General Family Medicine 06/14/19 Otr Owner Operator Truck Driver Relationship Specialty Start Date End Date Romario Man MD [address] [place] [address] PCP - [facility] 04/18/23 FOR RECORDS PERTAINING TO [...] BE BASED ON THE PRIMARY CLINICAL RECORDS. [facility]. provides no warranty or guarantee of the accuracy or completeness of information in this document.
[2024-07-12 08:55] VITALS: BP 153/97; PULSE 63; TEMP 36.6; O2SAT 96
[2024-07-12 09:39] VITALS: BP 153/92; BP 158/83; PULSE 63; PULSE 65; O2SAT 91; O2SAT 92
[2024-07-12] MEDS: BUPIVACAINE HCL 0.25% PF 25 MG/10 ML VIAL 8 ML INJ (09:42)
[2024-07-12] MEDS: LIDOCAINE HCL 2% 400 MG/20 ML MDV INJ (09:42)
--- NOTE | 2024-07-12 09:42 | W.PM.PROCNOT ---
Date of procedure: 07/12/24 Pre-op diagnosis: Pain due to lumbar spondylosis without myelopathy Post-op diagnosis: same as pre-op Procedure: Procedure: Bilateral L4-5, L5-S1 medial branch block Medications: Bupivacaine 0.25% 6cc The patient was seen and examined in the preoperative holding area.? An informed consent was obtained and placed on the chart.? The patient was brought to the medical procedure unit and placed in the prone position.? A timeout was completed verifying correct patient, procedure site, positioning, plan, and special equipment.? Using aseptic technique, the needle was placed at left L4. Under direct fluoroscopic visualization a Quincke-tipped spinal needle was advanced to the junction of the superior articulating process with the transverse process at the designated medial branch segment.? Preceded by negative aspiration, the above-mentioned injectate was placed in 1 mL aliquots.? The procedure was repeated at left L5, S1.? The needle was removed and insertion site was covered. The same procedure, at the same levels, was completed on the right side. The patient was taken to the postprocedural recovery area and monitored for an appropriate length of time before found suitable for discharge in the company of a responsible adult. Anesthesia: Local Surgeon: Mo Gongora Pathology: none sent Condition: stable Disposition: no change
== END 2024-07-12 09:45 | disposition home or self-care (01) ==
LOC: SURGOUT 07:59
PROVIDERS: PCP Family Medicine; Visit Provider Anesthesiology
DX: M47.816 Spondylosis without myelopathy or radiculopathy, lumbar region (principal)
CPT/HCPCS: 64493; 64494; J0665

== ENCOUNTER 2024-07-14 14:17 | Outpatient (OUT) | payer OTHER, SELFPAY ==
--- NOTE | 2024-07-14 14:37 | PM.CN ---
Consult Note: HPI Data of Consult Patient: known to practice within the last 3 years Requesting Physician: Isabelle Maria NP Primary Care Provider: Romario Bronson MD Consult Narrative Reason for consult: f/u Narrative: Noel Alva a pleasant 63 year old male presents for evaluation of chronic bilateral shoulders, hand, knee, and low back pain. Today patient rating pain 6/10, increasing to 8/10 with activity and depending on the weather due to OA, generalized and in bilateral shoulders and low back hip buttock pain. JOSE EDUARDO 46% today. Patient has returned to work and has noticed increase in pain and decline in functional ability. Unfortunately suprascapular/axillary RFAs denied by insurance. Patient has established care with Carola Kirby APRN-SREEDHAR. Pt following with Dr Mohr Neurology at [facility] for chronic neuropathy and pain, upcoming cervical and lumbar MRIs. continues to utilize tizanidine 4mg HS and mobic 15mg daily. recently underwent bilateral L4-5 L5-S1 facet medial branch block #1 with significant pain relief, >80% improvement immediately following and hours after the procedure. pain 1/10 post-op, he went to work and noticed significant improvement in ability to walk and stand for longer periods of time. cc:: CC: Isabelle Maria NP Review of Systems ROS Status of ROS 10 or more systems reviewed and unremarkable except as noted in history and below Musculoskeletal Reports: back pain, neck pain and joint pain [facility] Medical History (Updated 05/28/24 @ 10:20 by Remedios Carlin MD) HLD (hyperlipidemia) ?E78.5 - Hyperlipidemia, unspecified (ICD-10) CAD (coronary artery disease) ?I25.10 - Atherosclerotic heart disease of [place] coronary artery without angina pectoris (ICD-10) Bilateral shoulder pain ?M25.511 - Pain in right shoulder (ICD-10) ?M25.512 - Pain in left shoulder (ICD-10) Aortic atherosclerosis ?I70.0 - Atherosclerosis of aorta (ICD-10) Hypertension ?I10 - Essential (primary) hypertension (ICD-10) Numbness and tingling ?R20.0 - Anesthesia of skin (ICD-10) ?R20.2 - Paresthesia of skin (ICD-10) Back pain ?M54.9 - Dorsalgia, unspecified (ICD-10) Neck pain ?M54.2 - Cervicalgia (ICD-10) Anemia ?D64.9 - Anemia, unspecified (ICD-10) Asthma ?J45.909 - Unspecified asthma, uncomplicated (ICD-10) Surgical History H/O heart artery stent ?Z95.5 - Presence of coronary angioplasty implant and graft (ICD-10) H/O laminectomy ?Z98.890 - Other specified postprocedural states (ICD-10) Family History Father Family history of CHF (congestive heart failure) Family history of myocardial infarction Mother Family history of CHF (congestive heart failure) Social History Within the past year, how often did you have a drink containing alcohol: 4 or more times a week Within the past year, how many standard drinks containing alcohol did you have on a typical day: 1 or 2 Within the past year, how often did you have six or more drinks on one occasion: never Total score: 0 Score interpretation: Questions 2 and 3 are 0. It can be assumed that the patient's drinking is below the recommended limits. However, please confirm the accuracy of the patient's alcohol intake over the last few months. 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 Highest level of school completed/degree received: high school graduate In a typical week, how many times do you talk on the telephone with family, friends, or neighbors: 3 or more times per week How often do you get together with friends or relatives: 3 or more times per week How often do you attend tenriism or baptism services: never Do you belong to any clubs or organizations such as tenriism groups unions, fraternal or athletic groups, or school groups: no Little interest or pleasure in doing things: not at all Feeling down, depressed, or hopeless: not at all Feel stressed/tense/nervous/anxious/difficulty sleeping: not at all Gender Identity: male Meds Home Medications and Allergies Home Medications ?Medication ?Instructions ?Recorded ?Confirmed ?Type albuterol sulfate 90 mcg/actuation 1 inh inhalation Q6H 03/14/23 07/12/24 History aerosol inhaler (ProAir HFA) aspirin 81 mg tablet,delayed 81 mg PO DAILY 03/14/23 07/12/24 History release atorvastatin 40 mg tablet 40 mg PO DAILY 03/14/23 07/12/24 History cholecalciferol (vitamin D3) 50 50 mcg PO DAILY 03/14/23 07/12/24 History mcg (2,000 unit) capsule ferrous sulfate 325 mg (65 mg 325 mg PO BID 03/14/23 07/12/24 History iron) tablet (Niels-Time) lisinopril 40 mg tablet 40 mg PO DAILY 03/14/23 07/12/24 History meloxicam 15 mg tablet 15 mg PO DAILY 03/14/23 07/12/24 History nitroglycerin 0.4 mg sublingual 0.4 mg sublingual Q5M PRN chest 03/14/23 07/12/24 History tablet (Nitrostat) pain pantoprazole 40 mg tablet,delayed 40 mg PO DAILY 03/14/23 07/12/24 History release (Protonix) pregabalin 100 mg capsule (Lyrica) 100 mg PO BID 03/14/23 07/12/24 History ezetimibe 10 mg tablet 10 mg PO DAILY 05/24/24 07/12/24 History hydrochlorothiazide 25 mg tablet 25 mg PO DAILY #30 tabs 05/24/24 07/12/24 Rx isosorbide mononitrate 60 mg 60 mg PO DAILY 05/24/24 07/12/24 History tablet,extended release 24 hr metoprolol succinate 100 mg 100 mg PO DAILY 05/24/24 07/12/24 History tablet,extended release 24 hr (Toprol XL) oxycodone-acetaminophen 5 mg-325 1 tab PO TID PRN pain #90 tabs 06/17/24 07/12/24 Rx mg tablet (Percocet) Allergies Allergy/AdvReac Type Severity Reaction Status Date / Time No Known Drug Allergies Allergy Verified 07/12/24 08:57 Exam Constitutional Documenting provider has reviewed patient's vital signs: yes Common normals: no apparent distress, oriented x3, healthy appearing, alert and well nourished General appearance: cooperative HENCO Common normals: normocephalic, hearing grossly normal bilaterally and moist oral mucous membranes Head and scalp: normocephalic Eye Common normals: PERRL Pupil: PERRL Neck & C-Spine Common normals: full ROM General: normal visual inspection Chest Common normals: inspection of chest normal Respiratory Common normals: normal respiratory effort, no retractions and no use of accessory muscles Back & Pelvis Lumbar spine/lower back: ROM limited, pain with ROM and straight leg raise negative bilaterally Sacroiliac joints: SI joints normal Other: positive facet loading bilaterally Extremity Common normals: normal to inspection and full ROM Right upper extremity: shoulder joint Left upper extremity: shoulder joint Other: bilateral shoulder ROM limited, increased pain with ROM, positive empty can test, positive posterior-lift off, positive cross body adduction. increased pain with palpation of bilateral suprascapular/axillary nerves, reports sharp shooting pain with overhead motions. strength 5/5 in BUE, sensation intact Neuro Common normals: oriented x3, CN's II-XII intact bilaterally, moves all extremities, no focal motor deficits, no sensory deficits noted and deep tendon reflexes 2+ bilaterally Sensorium/orientation: alert Motor exam: strength 5/5 throughout and no movement abnormalities noted Psych Common normals: mental status grossly normal, thought process normal, cooperative, affect normal, speech normal and activity/motor behavior normal Speech: normal speech Thought process: normal thought process Results Additional Findings Additional findings: If on a controlled substance or opioids, I have checked an [place] report on this patient and there are no aberrancies noted in the prescribing history.??If on a controlled substance or opioid a drug screen was completed and reviewed within the last year, and if there has not been a drug screen completed we ordered one today to monitor higher risk, state monitored pain medication use. As part of providing excellent, safe, comprehensive care, the following was completed at our patient's visit: 1. A medication reconciliation and review to ensure accurate knowledge of current/active medications, including asking our patients to inform us about any [id number] medications or herbal remedies/nutritional supplements/alternative remedies. 2. A review to specifically ensure our patients have had annual screening for screening for depression, screening for tobacco use, and screening for unhealthy alcohol use. For concerning screenings had a discussion with the patient, provided patient education, and recommended follow-up with primary care provider when appropriate. If patient noted with a risk of falling, they received education on strength, gait, and balance training to prevent future risk of falling. 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
== END 2024-07-14 14:18 ==
LOC: PM 14:17
PROVIDERS: PCP Family Medicine; Visit Provider Nurse Practitioner
DX: M47.816 Spondylosis without myelopathy or radiculopathy, lumbar region (principal); M48.062 Spinal stenosis, lumbar region with neurogenic claudication; Z79.891 Long term (current) use of opiate analgesic; M79.18 Myalgia, other site; M15.2 Bouchard's nodes (with arthropathy)
CPT/HCPCS: G0463

== ENCOUNTER 2024-07-15 12:30 | Outpatient (OUT) | payer OTHER, SELFPAY ==
--- NOTE | 2024-07-15 12:40 | MR_ITS ---
[address] [address] Patient Name: AJ MORA MRN: [id number] date: 1960 Sex: M Assigned Patient Location: MRI Current Patient Location: MRI Accession/Order Number: [id number] Exam Date: 07/15/2024 13:00 Report Date: 07/16/2024 17:18 At the request of: NON-STAFF PHYSICIAN Procedure: MR cervical spine wo con EXAMINATION: MR cervical spine wo con HISTORY: hyperreflexia and imbalance radiculopathy in the bilateral arms. COMPARISON: None. TECHNIQUE: Multiplanar, multisequence MRI images of the cervical spine without intravenous contrast. FINDINGS: The cervical spine is straightened. There is 3 mm grade 1 anterolisthesis of C7-T1. There is degenerative trace retrolisthesis at C3-C4. Severe disc space narrowing at C3-C4 through C7-T1. Degenerative Modic type I edema at C3-C4 through C5-C6. No Chiari malformation. There is cord compression at C3-C4 through C6-C7 with increased T2 signal in the cord. C2-C3: Moderate facet arthropathy without spinal canal stenosis. Moderate bilateral femoral stenosis. C3-C4: Broad-based disc protrusion, severe facet arthropathy and bilateral uncovertebral osteophytes. Severe spinal canal stenosis with moderate cord compression. Severe bilateral foraminal stenosis. C4-C5: Broad-based disc protrusion, moderate facet arthropathy and bilateral uncovertebral osteophytes. Severe spinal canal stenosis with cord compression. Severe bilateral foraminal stenosis. C5-C6: Broad-based disc osteophyte complex, moderate facet arthropathy and bilateral uncovertebral osteophytes. Severe spinal canal stenosis and moderate cord compression. Severe bilateral foraminal stenosis. C6-C7: Broad-based disc osteophyte complex, moderate facet arthropathy and bilateral uncovertebral osteophytes. Severe spinal canal stenosis and moderate cord compression. Severe bilateral foraminal stenosis. C7-T1: Disc bulge and moderate facet arthropathy without spinal canal stenosis. Moderate right foraminal stenosis. MR/MR cervical spine wo con IMPRESSION: 1. There is severe multilevel degenerative disc disease and moderate multilevel facet arthropathy. 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 2. There is severe central spinal canal stenosis with moderate cord compression at C3-C4 through C6-C7 secondary to broad-based disc osteophyte complex/disc protrusion and congenitally short pedicles. There is also cord edema or myelomalacia at each level. 3. There are multiple levels of foraminal stenosis as described. Electronically authenticated by: ARELIS COMBS Date: 07/16/2024 17:18
--- NOTE | 2024-07-15 12:40 | MR_ITS ---
[address] [address] Patient Name: AJ MORA MRN: [id number] date: 1960 Sex: M Assigned Patient Location: MRI Current Patient Location: MRI Accession/Order Number: [id number] Exam Date: 07/15/2024 13:00 Report Date: 07/16/2024 17:00 At the request of: NON-STAFF PHYSICIAN Procedure: MR thoracic spine wo con EXAM: MR thoracic spine wo con HISTORY: hyperreflexia and imbalance COMPARISON: None TECHNIQUE: MRI images obtained with multiple sequences. MRI of the thoracic spine without contrast. Sequences obtained by standard department protocol. FINDINGS: Moderate disc degeneration of the lower cervical spine. Moderate disc degeneration at T5-T6 and T6-T7 with associated mild posterior disc protrusions. No significant spinal canal stenosis. No significant neural foraminal stenosis. Mild disc degeneration of the lower thoracic spine. Vertebral body height is preserved. Degenerative endplate edema at T6-T7 (Modic type I). No abnormal signal of the thoracic spinal cord. MR/MR thoracic spine wo con IMPRESSION: 1. No significant spinal canal stenosis. No significant neural foraminal stenosis. 2. Vertebral body height is preserved. 3. No abnormal signal of the thoracic spinal cord. 4. Moderate disc degeneration of the lower cervical spine. Electronically authenticated by: MONICA VILA Date: 07/16/2024 17:00
--- OUTSIDE RECORDS SUMMARY | 2024-07-15 12:52 | XMS_ITS | CCD ---
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 Role Phone PHYSICIAN, DEFAULT Unavailable Unavailable [...] Unavailnir Man MD, Romario Primary Care Provider [phone] HERNANDEZ, JENNIE S Referring Unavailable HERNANDEZ, JENNIE [...] Unavailable HERNANDEZ, JENNIE S Attending Unavailable [facility], OTHER Primary Care Unavailable SELF, SELF [...] Medication Allergies] Propensity to adverse reactions (disorder) [facility] Repository (1 source) ranolazine; Translations: [RANOLAZINE] Drug Allergy [address] [place] [address] Repository Medications Current Medications Medication Drug Class(es) Dates Sig (Normalized) Sig (Original) Acetaminophen (10 sources) Start: 12-30-2022 acetaminophen (TYLENOL) tablet 650 mg Start: 09-12-2019 take 2 tablets by mo [facility] every eight hours as needed for [...] take 1 tablet by alissa twice daily [place] 5/325 Tab 1 tab(s), Oral, BID, Refill(s) [...] BID, # 90 tab(s), Refills(s) 3, Pharmacy: [id number], 167.6, cm, 05/31/22 14:31:00 [...] 1 tablet by mouth once daily aspirin, [id number], tablet Take 1 tablet by mouth daily. Take 1 tablet (total dose= 81mg) by mouth daily. Return bottle(s) & unused medication at your next visit. Active take 1 tablet by ailssa th once daily, then take 1 tablet by mouth once daily aspirin, [id number], tablet Take 1 tablet by mouth daily. 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; Translations: [OTH RETIREMENT CURRENT DRUG THERAPY] Onset: 07-01-2022 Episodic Other [...] Resume Atorvastatin at 40 mg daily Normal [facility] Office Visiton 06-16-2024 Follow-up visit [id number] Dorothea Alva 1960 M Date Provider Department [place] 06/16/2024 LISA ESTRADA VALENCIA Yesys Eugenio Family History Problem Relation Age of Onset Coronary artery disease Mother Coronary artery disease Father Family Status - Relation Status Age at Mother Father Level of Service:59293 MI OFFICE/OUTPATIENT ESTABLISHED MOD MDM 30 MIN Normal [facility] 06-04-2024 36 PT INFORMED [facility] 06-01-2024 36 Post Discharge Call Good morning, I am Priscilla Padilla RN a lead nurse from [facility]. I am calling you to follow up [...] that now. RN attempted phone call at [employer] at this time. Patient Name Noel Alva Date 06/01/24 [facility] Telephoneon 06-01-2024 Telephone [id number] Dorothea Alva 1960 [facility] Provider Department [place] 06/01/2024 PRISCILLA GALLARDO [facility] Family History Problem Relation Age of Onset Coronary artery disease Mother Coronary artery disease Father Family Status - Relation Status Age at Mother Father Reason for Visit and Comments: Hospital Follow-up [832] [facility] 05-31-2024 30 The patient is Moder ately Stable - Low risk of patient condition declining or worsening The patient's goals for the shift include rest and comfort The clinical goals for the shift include Discharge Barriers to progression include awaiting cath and Echo results Recommendations to address these barriers include waiting for results and discharge is everything looks good. [facility] 30 Daily Case Managemen t Update Multidisciplinary [...] PT Recommendations: OT Recommendations: New Consults: Normal [facility] ANESon 05-31-2024 ANES ------- Attestation signed by Jonn Connell MD at 05/31/2024 8:23 AM Jonn Connell MD, MPH, [facility]LY [facility], [facility], [facility] Interventional Cardiology Pager Email: [email or web address] Patient: Noel Alva Procedure Information Date/Time: 05/31/24 0830 Procedure: Coronary angiography Location: [facility] / [facility] (Cath) Providers: Jonn Connell [...] attending and fellow. Additional Equipment Requests Normal [facility] ANTI-XA (HEPARIN LEVEL)on HEPARIN UNFRACTIONATED (U/ML) IN PPP BY CHROMOGENIC METHOD 0.28 IU/mL Low 0.3-0.7 [facility] Comment on above: Result Comment: Deborah roxaban and Apixaban will interfere with the anti Xa assay used to monitor UFH and LMWH. Performed By: #### L [id number] ####[facility] ([facility])[address] [place] [address] HEPARIN UNFRACTIONATED (U/ML) IN PPP BY CHROMOGENIC METHOD 0.29 IU/mL Low 0.3-0.7 [facility] Comment on above: Result Comment: [place] roxaban and Apixaban will interfere with the anti Xa assay used to monitor UFH and LMWH. Performed By: #### L [id number] ####[facility] ([facility])[address] [place] [address] CBCon 05-31-2024 Erythrocyte distribution width (RBC) [Ratio] 13.6 % Normal 11.5-15.0 [facility] Comment on above: Performed By: #### L [id number] ####[facility] ([facility])[address] [place] [address] ERYTHROCYTE MEAN CORPUSCULAR HEMOGLOBIN CONCENTRATION (G/DL) BY AUTOMATED 33.9 g/dL Normal 32.0-35.0 [facility] Comment on above: Performed By: #### L [id number] ####[facility] ([facility])[address] [place] [address] Hematocrit (Bld) [Volume fraction] 40.4 % Normal 39.0-55.0 [facility] Comment on above: Performed By: #### L [id number] ####[facility] ([facility])[address] [place] [address] Hemoglobin (Bld) [Mass/Vol] 13.7 g/dL Normal 13.0-17.0 [facility] Comment on above: Performed By: #### L [id number] ####[facility] ([facility] [place] [address] MCH (RBC) [Entitic mass] 31.4 pg Normal 27.0-33.0 [facility] Comment on above: Performed By: #### L [id number] ####[facility] ([facility] [place] [address] MCV (RBC) [Entitic vol] 92.7 fL Normal 82.0-98.0 [facility] Comment on above: Performed By: #### L [id number] ####[facility] ([facility])[address] [place] [address] PLATELETS (10*3/UL) IN BLOOD AUTOMATED COUNT 171 10*3/uL Normal 150-400 [facility] Comment on above: Performed By: #### Nola [id number] ####[facility] ([facility])[address] [place] [address] RBC (Bld) [#/Vol] 4.36 10*6/uL Normal 4.20-5.70 [facility] Comment on above: Performed By: #### L [id number] ####[facility] ([facility])[address] [place] [address] WBC (Bld) [#/Vol] 7.85 10*3/uL Normal 4.00-10.60 [facility] Comment on above: Performed By: #### Nola [id number] ####[facility] ([facility])[address] [place] [address] [facility] 05-31-2024 ------- Attestation signed by Jonn Connell MD at 05/31/2024 8:23 AM Jonn Connell MD, MPH, FACC, [facility], [facility] Interventional Cardiology Pager Email: [email or web address] H&P reviewed. The patient was seen and [...] he understands and wishes to proceed. Normal [facility] ANTI-XA (HEPARIN LEVEL)on HEPARIN UNFRACTIONATED (U/ML) IN PPP BY CHROMOGENIC METHOD 0.25 IU/mL Low 0.3-0.7 [facility] Comment on above: Result Comment: [place] roxaban and Apixaban will interfere with the anti Xa assay used to monitor UFH and LMWH. Performed By: #### L [id number] #### [facility] ([facility]) [address] [place] [address] HEPARIN UNFRACTIONATED (U/ML) IN PPP BY CHROMOGENIC METHOD 0.23 IU/mL Low 0.3-0.7 [facility] Comment on above: Result Comment: [place] roxaban and Apixaban will interfere with the anti Xa assay used to monitor UFH and LMWH. Performed By: #### L [id number] ####[facility] ([facility])[address] [place] [address] HEPARIN UNFRACTIONATED (U/ML) IN PPP BY CHROMOGENIC METHOD 0.22 IU/mL Low 0.3-0.7 [facility] Comment on above: Result Comment: [place] roxaban and Apixaban will interfere with the anti Xa assay used to monitor UFH and LMWH. Performed By: #### L [id number] ####[facility] ([facility])[address] [place] [address] BASIC METABOLIC PANELon 08-2 Anion gap [Moles/Vol] 12 mmol/L Normal 7-20 [facility] Comment on above: Performed By: #### L [id number] ####[facility] ([facility])[address] [place] [address] Calcium [Mass/Vol] 9.1 mg/dL Normal 8.6-10.3 [facility] Comment on above: Performed By: #### L [id number] ####[facility] ([facility])[address] [place] [address] Chloride [Moles/Vol] 101 mmol/L Normal 98-107 [facility] Comment on above: Performed By: #### L [id number] ####[facility] ([facility])[address] [place] [address] CO2 [Moles/Vol] 26 mmol/L Normal 21-[address] [facility] Comment on above: Performed By: #### L [id number] ####[facility] ([facility])[address] [place] [address] Creatinine [Mass/Vol] 0.71 mg/dL Normal 0.70-1.30 [facility] Comment on above: Performed By: #### L [id number] ####[facility] ([facility])[address] [place] [address] GLOMERULAR FILTRATION RATE ML/MIN/1.73 SQ M.PREDICTED 103.1 mL/min/1.73m*2 Normal >60.0 [facility] Comment on above: Result Comment: The [facility]???s estimated glomerular filtration rate (eGFR) will [...] of individuals. Performed By: #### L [id number] ####[facility] ([facility])[address] [place] [address] Glucose [Mass/Vol] 105 mg/dL High 70-100 [facility] Comment on above: Performed By: #### L [id number] ####[facility] ([facility])[address] [place] [address] Potassium [Moles/Vol] 4.1 mmol/L Normal 3.5-5.1 [facility] Comment on above: Performed By: #### L [id number] ####[facility] ([facility])[address] [place] [address] Sodium [Moles/Vol] 135 mmol/L Low 136-145 [facility] Comment on above: Performed By: #### L [id number] ####[facility] ([facility])[address] [place] [address] Urea nitrogen [Mass/Vol] 22 mg/dL Normal 7-25 [facility] Comment on above: Performed By: #### L [id number] ####[facility] ([facility])[address] [place] [address] UREA NITROGEN/CREATININE (MASS RATIO) IN SER/PLAS 31.0 Normal [facility] Comment on above: Performed By: #### L [id number] ####[facility] ([facility])[address] [place] [address] CBCon 05-30-2024 Erythrocyte distribution width (RBC) [Ratio] 13.8 % Normal 11.5-15.0 [facility] Comment on above: Performed By: #### L [id number] ####[facility] ([facility])[address] [place] [address] ERYTHROCYTE MEAN CORPUSCULAR HEMOGLOBIN CONCENTRATION (G/DL) BY AUTOMATED 32.7 g/dL Normal 32.0-35.0 [facility] Comment on above: Performed By: #### L [id number] ####[facility] ([facility])[address] [place] [address] Hematocrit (Bld) [Volume fraction] 43.1 % Normal 39.0-55.0 [facility] Comment on above: Performed By: #### L [id number] ####[facility] ([facility])[address] [place] [address] Hemoglobin (Bld) [Mass/Vol] 14.1 g/dL Normal 13.0-17.0 [facility] Comment on above: Performed By: #### L [id number] ####[facility] ([facility])[address] [place] [address] MCH (RBC) [Entitic mass] 31.5 pg Normal 27.0-33.0 [facility] Comment on above: Performed By: #### L [id number] ####[facility] ([facility])[address] [place] [address] MCV (RBC) [Entitic vol] 96.4 fL Normal 82.0-98.0 [facility] Comment on above: Performed By: #### L [id number] ####[facility] ([facility])[address] [place] [address] PLATELETS (10*3/UL) IN BLOOD AUTOMATED COUNT 181 10*3/uL Normal 150-400 [facility] Comment on above: Performed By: #### L [id number] ####[facility] ([facility])[address] [place] [address] RBC (Bld) [#/Vol] 4.47 10*6/uL Normal 4.20-5.70 [facility] Comment on above: Performed By: #### L [id number] ####[facility] ([facility])[address] [place] [address] WBC (Bld) [#/Vol] 7.33 10*3/uL Normal 4.00-10.60 [facility] Comment on above: Performed By: #### L [id number] ####[facility] ([facility])[address] [place] [address] MAGNESIUMon 05-30-2024 Magnesium [Mass/Vol] 1.8 mg/dL Low 1.9-2.7 [facility] Comment on above: Performed By: #### L [id number] ####[facility] ([facility])[address] [place] [address] 30on 05-29-2024 30 Problem: Pain - Adul [...] VSS, no chest pain, hemodynamically stable. Normal [facility] 30 The patient is Moder ately [...] procedure to look for CA blockages. Normal [facility] ANTI-XA (HEPARIN LEVEL)on HEPARIN UNFRACTIONATED (U/ML) IN PPP BY CHROMOGENIC METHOD 0.33 IU/mL Normal 0.3-0.7 [facility] Comment on above: Order Comment: Check anti-Xa level every 6 hours while on heparin infusion, or per protocol. Result Comment: [place] roxaban and Apixaban will interfere with the anti Xa assay used to monitor UFH and LMWH. Performed By: #### L [id number] #### [facility] ([facility]) [address] [place] [address] HEPARIN UNFRACTIONATED (U/ML) IN PPP BY CHROMOGENIC METHOD 0.38 IU/mL Normal 0.3-0.7 [facility] Comment on above: Order Comment: Check anti-Xa level every 6 hours while on heparin infusion, or per protocol. Result Comment: [place] roxaban and Apixaban will interfere with the anti Xa assay used to monitor UFH and LMWH. Performed By: #### L [id number] #### [facility] ([facility]) [address] [place] [address] CBCon 05-29-2024 Erythrocyte distribution width (RBC) [Ratio] 14.0 % Normal 11.5-15.0 [facility] Comment on above: Performed By: #### L [id number] ####[facility] ([facility])[address] [place] [address] ERYTHROCYTE MEAN CORPUSCULAR HEMOGLOBIN CONCENTRATION (G/DL) BY AUTOMATED 34.0 g/dL Normal 32.0-35.0 [facility] Comment on above: Performed By: #### L [id number] ####[facility] ([facility])[address] [place] [address] Hematocrit (Bld) [Volume fraction] 42.0 % Normal 39.0-55.0 [facility] Comment on above: Performed By: #### L [id number] ####[facility] ([facility])[address] [place] [address] Hemoglobin (Bld) [Mass/Vol] 14.3 g/dL Normal 13.0-17.0 [facility] Comment on above: Performed By: #### L [id number] ####[facility] ([facility])[address] [place] [address] MCH (RBC) [Entitic mass] 31.5 pg Normal 27.0-33.0 [facility] Comment on above: Performed By: #### L [id number] ####[facility] ([facility])[address] [place] [address] MCV (RBC) [Entitic vol] 92.5 fL Normal 82.0-98.0 [facility] Comment on above: Performed By: #### L [id number] ####[facility] ([facility])[address] [place] [address] PLATELETS (10*3/UL) IN BLOOD AUTOMATED COUNT 177 10*3/uL Normal 150-400 [facility] Comment on above: Performed By: #### L [id number] ####[facility] ([facility])[address] [place] [address] RBC (Bld) [#/Vol] 4.54 10*6/uL Normal 4.20-5.70 [facility] Comment on above: Performed By: #### L [id number] ####[facility] ([facility] [place] [address] WBC (Bld) [#/Vol] 6.44 10*3/uL Normal 4.00-10.60 [facility] Comment on above: Performed By: #### L [id number] ####[facility] ([facility] [place] [address] CONSULTon 08-24-2024 CONSULT ------- Attestation signed by [...] presented yesterday to the cardiology office in [place] reporting recurrent chest pain on exertion as [...] obtain an echocardiographic study Kristian Palumbo MD, [facility] Cardiology Consult Note Reason for Consult: Chest pain HPI: Noel Alva is a 63 y.o. male patient is presenting as a direct transfer from [facility]. Past medical history includes: CAD HTN HLD Patient saw Dr. [facility]. Patient reported that he has been experiencing intermittent diaphoresis episodes, worse with exertion, associated with mild chest pain responding to sublingual nitroglycerin. He mentioned it is similar to the symptoms he experienced when he had coronary artery disease stenting in 2005. Patient was sent to the ED at [place] for further workup. High sensitivity troponin level [...] disease, Hypertension, and PVD (peripheral vascular disease) ([facility]). Surgical History He has a past [...] EC tab (more content not included)... Normal [facility] HAPTOGLOBINon 05-29-2024 Magnesium [Mass/Vol] 253 mg/dL High 26-164 [facility] Comment on above: Performed By: #### L [id number] #### [facility] ([facility]) [address] [place] [address] HPon 05-29-2024 HP ------- Attestation signed by [...] presented yesterday to the cardiology office in [place] reporting recurrent chest pain on exertion as [...] obtain an echocardiographic study Kristian Palumbo MD, [facility] Cardiology Consult Note Reason for Consult: Chest pain HPI: Noel Alva is a 63 y.o. male patient is presenting as a direct transfer from [facility]. Past medical history includes: CAD HTN HLD Patient saw Dr. Marin yesterday at [facility]. Patient reported that he has been experiencing intermittent diaphoresis episodes, worse with exertion, associated with mild chest pain responding to sublingual nitroglycerin. He mentioned it is similar to the symptoms he experienced when he had coronary artery disease stenting in 2005. Patient was sent to the ED at [place] for further workup. High sensitivity troponin level [...] disease, Hypertension, and PVD (peripheral vascular disease) ([facility]). Surgical History He has a past [...] EC tab (more content not included)... Normal [facility] LACTATE DEHYDROGENASEon 05-07 LACTATE DEHYDROGENASE (U/L) IN SER/PLAS BY LAC->PYR RXN 166 U/L Normal 140-271 [facility] Comment on above: Performed By: #### L [id number] ####[facility] ([facility])[address] [place] [address] TROPONIN Ion 05-29-2024 Troponin I.cardiac [Mass/Vol] 0.02 ng/mL Normal 0.00-0.04 [facility] Comment on above: Performed By: #### L [id number] #### [facility] ([facility]) [address] [place] [address] Troponin I.cardiac [Mass/Vol] 0.01 ng/mL Normal 0.00-0.04 [facility] Comment on above: Performed By: #### L [id number] #### [facility] ([facility]) [address] [place] [address] Troponin I.cardiac [Mass/Vol] 0.01 ng/mL Normal 0.00-0.04 [facility] Comment on above: Performed By: #### L [id number] #### [facility] ([facility]) [address] [place] [address] TSH3 REFLEX TO FT4on 024 THYROTROPIN (MIU/L) IN SER/PLAS BY DETECTION LIMIT <= 0.05 MIU/L 2.12 mIU/L Normal 0.34-5.60 [facility] Comment on above: Performed By: #### L [id number] ####[facility] ([facility])[address] [place] [address] VITAMIN B12on 05-29-2024 Cobalamin (Vitamin B12) [Mass/Vol] 394 pg/mL Normal 180-914 [facility] Comment on above: Result Comment: REFE RENCE RANGES: 180-914 pg/mL Normal 145-179 pg/mL Indeterminate <145 pg/mL Deficient Performed By: #### L [id number] #### [facility] ([facility]) [address] [place] [address] 29on 05-28-2024 29 Addended by: ELIEL WORLEY on: 05/28/2024 09:55 AM Modules accepted: Orders Normal [facility] APTTon 05-28-2024 ACTIVATED PARTIAL THROMBOPLASTIN TIME IN PPP BY COAGULATION ASSAY 26.4 Seconds Normal 25.0-35.0 [facility] Comment on above: Order Comment: Basel ine aPTT before initiating heparin infusion. Result Comment: Clin ical significance of the APTT is questionable in the presence of heparin. Performed By: #### L [id number] #### [facility] ([facility]) [address] [place] [address] B-TYPE NATRIURETIC PEPTIDEon 05-28-2024 Natriuretic peptide B (Bld) [Mass/Vol] 73 pg/mL Normal 0-100 [facility] Comment on above: Performed By: #### L [id number] ####[facility] ([facility])[address] [place] [address] BASIC METABOLIC PANELon 05-07 Anion gap [Moles/Vol] 14 mmol/L Normal 7-20 [facility] Comment on above: Performed By: #### L [id number] #### [facility] ([facility]) [address] [place] [address] Calcium [Mass/Vol] 9.8 mg/dL Normal 8.6-10.3 [facility] Comment on above: Performed By: #### L [id number] #### [facility] ([facility]) [address] [facility] [place] [address] Chloride [Moles/Vol] 97 mmol/L Low 98-107 [facility] Comment on above: Performed By: #### L [id number] #### [facility] ([facility]) [address] [place] [address] CO2 [Moles/Vol] 29 mmol/L Normal 21-[address] [facility] Comment on above: Performed By: #### L [id number] #### [facility] ([facility]) [address] [place] [address] Creatinine [Mass/Vol] 0.75 mg/dL Normal 0.70-1.30 [facility] Comment on above: Performed By: #### L [id number] #### [facility] ([facility] [facility] [address] [place] [address] GLOMERULAR FILTRATION RATE ML/MIN/1.73 SQ M.PREDICTED 101.4 mL/min/1.73m*2 Normal >60.0 [facility] Comment on above: Result Comment: The [facility]???s estimated glomerular filtration rate (eGFR) will [...] individuals. Performed By: #### L [id number] #### [facility] ([facility]) [address] [place] [address] Glucose [Mass/Vol] 109 mg/dL High 70-100 [facility] Comment on above: Performed By: #### L [id number] #### [facility] ([facility]) [address] [place] [address] Potassium [Moles/Vol] 3.6 mmol/L Normal 3.5-5.1 [facility] Comment on above: Performed By: #### L [id number] #### [facility] ([facility]) [address] [place] [address] Sodium [Moles/Vol] 136 mmol/L Normal 136-145 [facility] Comment on above: Performed By: #### L [id number] #### [facility] ([facility] [address] [place] [address] Urea nitrogen [Mass/Vol] 20 mg/dL Normal 7-25 [facility] Comment on above: Performed By: #### L [id number] #### [facility] ([facility]) [address] [place] [address] UREA NITROGEN/CREATININE (MASS RATIO) IN SER/PLAS 26.7 Normal [facility] Comment on above: Performed By: #### L [id number] #### [facility] ([facility]) [address] [place] [address] CBCon 05-28-2024 Erythrocyte distribution width (RBC) [Ratio] 14.2 % Normal 11.5-15.0 [facility] Comment on above: Performed By: #### L [id number] #### [facility] ([facility]) [address] [place] [address] ERYTHROCYTE MEAN CORPUSCULAR HEMOGLOBIN CONCENTRATION (G/DL) BY AUTOMATED 33.6 g/dL Normal 32.0-35.0 [facility] Comment on above: Performed By: #### L [id number] #### [facility] ([facility]) [address] [place] [address] Hematocrit (Bld) [Volume fraction] 45.8 % Normal 39.0-55.0 [facility] Comment on above: Performed By: #### L [id number] #### [facility] [address] [place] [address] Hemoglobin (Bld) [Mass/Vol] 15.4 g/dL Normal 13.0-17.0 [facility] Comment on above: Performed By: #### L [id number] #### [facility] [address] [place] [address] MCH (RBC) [Entitic mass] 31.2 pg Normal 27.0-33.0 [facility] Comment on above: Performed By: #### L [id number] #### [facility] [address] [place] [address] MCV (RBC) [Entitic vol] 92.9 fL Normal 82.0-98.0 [facility] Comment on above: Performed By: #### L [id number] #### [facility] ([facility]) [address] [place] [address] PLATELETS (10*3/UL) IN BLOOD AUTOMATED COUNT 197 10*3/uL Normal 150-400 [facility] Comment on above: Performed By: #### L [id number] #### [facility] ([facility]) [address] [address] RBC (Bld) [#/Vol] 4.93 10*6/uL Normal 4.20-5.70 [facility] Comment on above: Performed By: #### L [id number] #### [facility] ([facility]) [address] [place] [address] WBC (Bld) [#/Vol] 6.33 10*3/uL Normal 4.00-10.60 [facility] Comment on above: Performed By: #### L [id number] #### [facility] ([facility]) [address] [place] [address] HEMOGLOBIN A1Con 05-28-2024 Glucose [Mass/Vol] 123 mg/dL Normal [facility] Comment on above: Performed By: #### L [id number] #### [facility] ([facility]) [address] [place] [address] HbA1c (Bld) [Mass fraction] 5.9 % Normal 4.0-6.0 [facility] Comment on above: Performed By: #### L [id number] #### [facility] [address] [place] [address] LIPID PANELon 05-28-2024 CHOL/HDL 2.5 mg/dL Normal [facility] Comment on above: Performed By: #### L [id number] #### [facility] [address] [place] [address] Cholesterol [Mass/Vol] 142 mg/dL Normal 120-200 [facility] Comment on above: Performed By: #### L [id number] #### [facility] ([facility]) [address] [place] [address] Magnesium [Mass/Vol] 109 mg/dL Normal 40-149 [facility] Comment on above: Result Comment: TRIG LYCERIDE REFERENCE RANGE: 20 YEARS AND OLDER CARDIOVASCULAR RISK LESS THAN 150 mg/dL LOW RISK 150 TO 199 mg/dL BORDERLINE RISK 200 mg/dL AND GREATER HIGH RISK Performed By: #### L [id number] #### [facility] ([facility]) [address] [place] [address] Magnesium [Mass/Vol] 64 mg/dL Normal 0-160 [facility] Comment on above: Performed By: #### L [id number] #### [facility] ([facility]) [address] [place] [address] Magnesium [Mass/Vol] 56 mg/dL Normal 23-92 [facility] Comment on above: Performed By: #### L [id number] #### [facility] ([facility]) [address] [place] [address] NON HDL CHOL. (LDL+VLDL) 86 Normal [facility] Comment on above: Performed By: #### L [id number] #### [facility] ([facility]) [address] [place] [address] TOTAL VLDL-C 22 mg/dL Normal 0-40 [facility] Comment on above: Performed By: #### L [id number] #### [facility] ([facility]) [address] [place] [address] MAGNESIUMon 05-28-2024 Magnesium [Mass/Vol] 2.1 mg/dL Normal 1.9-2.7 [facility] Comment on above: Performed By: #### L [id number] #### [facility] ([facility]) [address] [place] [address] Office Visiton 05-28-2024 Follow-up visit [id number] Dorothea Alva 1960 M Date Provider Department Center 05/28/2024 ELIEL ECKERT VALENCIA [facility] Family History Problem Relation Age of Onset Coronary artery disease Mother Coronary artery disease Father Family Status - Relation Status Age at Mother Father Level of Service:68747 [place] OFFICE/OUTPATIENT ESTABLISHED HIGH MDM 40 MIN Normal [facility] POCT GLUCOSE METER UNSOLICIT ED RESULTSon 05-28-2024 Glucose [Mass/Vol] 145 mg/dL High 70-105 [facility] Comment on above: Order Comment: Check anti-Xa level every 6 hours while on heparin infusion, or per protocol. Result Comment: jose juan swift Performed By: #### L [id number] #### [facility] ([facility]) [address] [place] [address] TROPONIN Ion 05-28-2024 Troponin I.cardiac [Mass/Vol] 0.01 ng/mL Normal 0.00-0.04 [facility] Comment on above: Performed By: #### L [id number] #### [facility] ([facility]) [address] [place] [address] Office Visiton 02-11-2024 Follow-up visit [id number] Dorothea Alva 1960 M Date Provider Department Center 02/11/2024 ELIEL ECKERT VALENCIA Becker Family History Problem Relation Age of Onset Coronary artery disease Mother Coronary artery disease Father Family Status - Relation Status Age at Mother Father Level of Service:31677 [place] OFFICE/OUTPATIENT ESTABLISHED MOD MDM 30 MIN Normal [facility] COVID-19, Rapidon 2023 SARS-CoV-2 (COVID-19) RdRp gene DAHLIA+probe Ql (Resp) Not detected Not Detected [facility] Comment on above: Rapid NAAT: [...] management decisions. Fact sheet for Healthcare Providers: https://www.fda.gov/media/948974/download Fact sheet for Patients: https://www.fda.gov/media/031583/download Methodology: Isothermal Nucleic Acid Amplification Specimen Description .[facility]AL [facility] Flu A/B Ag Detectionon 10-10 Flu A Ag Detection Negative Normal [facility] Comment on above: Result Comment: for Influenza A Antigen Performed By: #### F NATALYA #### [facility] [address] [place] [address] [place] [address] [place] Supervisor: Luis Carlos Del Castillo MD Flu B Ag Detection Negative Normal [facility] Comment on above: Result Comment: for Influenza B Antigen. Performed By: #### F LUABA #### [address] [place] [address] [place] Supervisor: Luis Carlos Del Castillo MD Rapid influenza A/B antigens on 2023 FLUAV Ag Ql (Unsp spec) Negative NEGATIVE [facility] Comment on above: for Influenza A Anti gen FLUBV Ag Ql (Unsp spec) Negative NEGATIVE [facility] Comment on above: for Influenza B Anti gen. [facility] [id number] 2023 SARS-CoV-2 (COVID-19) RNA DAHLIA+probe Ql (Unsp spec) Not detected Normal [facility] Comment on above: Result Comment: [...] management decisions. Fact sheet for Healthcare Providers: https://www.fda.gov/media/970128/download Fact sheet for Patients: https://www.fda.gov/media/796952/download Methodology: Isothermal Nucleic Acid Amplification Performed By: #### C OVRB #### [facility] [address] [place] [address] [place] Supervisor: Luis Carlos Del Castillo MD XR [...] Nav Hudson MD 10/10/23 Final result Normal [facility] Documentationon 09-18-2023 Documentation [id number] Dorothea Alva 1960 M Date Provider Department Center 09/18/2023 JuliannaDAVIDSON SHARP [facility] Family History Problem Relation Age of Onset Coronary artery disease Mother Coronary artery disease Father Family Status - Relation Status Age at Mother Father Normal [facility] CBCon 09-09-2023 ABSOLUTE BAS 0.1 10*3/uL Normal 0.0-0.2 [facility] ABSOLUTE EOS 0.1 10*3/uL Normal 0.0-0.7 [facility] ABSOLUTE NEUTROPHIL COUNT 7.0 10*3/uL High [...] (Bld) [Entitic vol] 7.8 fL Normal 7.4-11.0 [facility] Platelets (Bld) [#/Vol] 195 10*3/uL Normal [...] Hospital Bilirubin [Mass/Vol] 0.7 mg/dL Normal 0.2-1.3 [facility] Calcium [Mass/Vol] 9.5 mg/dL Normal 8.4-10.2 [facility] Chloride [Moles/Vol] 105 mmol/L Normal 98-107 [facility] Comment on above: Result Comment: Gilma medellin note: Triglyceride levels of 600mg/dL or higher may positively bias chloride results by approximately 2.1 mmol CO2 [Moles/Vol] 27 mmol/L Normal 22-30 [facility] Creatinine [Mass/Vol] 0.60 mg/dL Low 0.7-1.2 [facility] EST. GFR, 176 ml/min/1.73sq.m Normal [facility] EST. GFR,Non 145 ml/min/1.73sq.m Normal [facility] GFR Information Average GFR for 60-6 9 years old = 85. Normal [facility] Comment on above: Result Comment: Blue Print Control Clerk isaiah Kidney disease, GFR = <60. Kidney [...] 08-13-2023 Radiology Study observation (narrative) [facility] Office Visiton 08-13-2023 Follow-up visit [id number] Dorothea Alva 1960 Provider Department Center 08/13/2023 DAVIDSON HOWELL VALENCIA Becker Family History Problem Relation Age of Onset Coronary artery disease Mother Coronary artery disease Father Family Status - Relation Status Age at Mother Father Level of Service:79850 [place] OFFICE/OUTPATIENT ESTABLISHED MOD MDM 30-39 MIN Reason for Visit and Comments: Coronary Artery Disease [187] Chest Pain [055490] Pre-op Exam [767783] Hyperlipidemia [182] Hypertension [556212] Normal [facility] Orders Onlyon 08-13-2023 Orders Only [id number] Dorothea Alva 1960 Provider Department Center 08/13/2023 ADA BALTAZAR VALENCIA Becker Family History Problem Relation Age of Onset Coronary artery disease Mother Coronary artery disease Father Family Status - Relation Status Age at Mother Father Normal [facility] 36on 08-03-2023 36 Patient will need an appointment for further refills - thanks ! Normal [facility] LARGE JOINT/BURSA INJECTION AND/OR ASPIRATIONon 07-16-2023 [...] fashion. The patient was prepped with Chloraprep. [facility] [place] Unspecified body regionon 07-16-2023 Image Storage This order is to facilitate the storage of the image. [facility] LARGE JOINT/BURSA INJECTION AND/OR ASPIRATIONon 06-17-2023 Radiology Study observation (narrative) [facility] LARGE JOINT/BURSA INJECTION AND/OR ASPIRATIONon 06-10-2023 [...] fashion. The patient was prepped with Chloraprep. [facility] [place] Unspecified body regionon 06-10-2023 Image Storage This order is to facilitate the storage of the image. [facility] LARGE JOINT/BURSA INJECTION AND/OR ASPIRATIONon 05-15-2023 Radiology Study observation (narrative) [facility] LARGE JOINT/BURSA INJECTION AND/OR ASPIRATIONon 04-18-2023 [...] fashion. The patient was prepped with Chloraprep. [employer] [place] Unspecified body regionon 04-18-2023 Image Storage This order is to facilitate the storage of the image. [employer] XR HIPS KOURTNEY 5V W PELVISon XR [...] LUIS CARLOS ENCARNACION Date: 2023-01-08 13:57 Normal [facility] XR LSPINE W_OBLS AND FLEX_EX Ton [...] LUIS CARLOS ENCARNACION Date: 2023-01-08 14:00 Normal [facility] Hemoglobin A1Con 01-01-2023 Glucose [Mass/Vol] 114 mg/dL Normal [facility] Comment on above: Result Comment: The ADA and AACC recommend providing the estimated average glucose result to permit better patient understanding of their HBA1c result. Performed By: #### L IPR #### [facility] [employer] [address] [place] [address] [place] Supervisor: Marshall Paulino MD HbA1c (Bld) [Mass fraction] 5.6 % Normal 4.0-6.0 [facility] Comment on above: Performed By: #### L IPR #### [employer] [address] [place] [address] [place] Supervisor: Marshall Paulino MD Basic Metab w/rfx MGon 12-31 Anion gap [Moles/Vol] 9 mmol/L Normal 9-17 [facility] Comment on above: Performed By: #### T ROPI, CDP, BMPX #### [facility] [address] [place] [address] [place] Supervisor: Luis Carlos Del Castillo MD #### GLYHGB #### [place] [address] [place] [address] [place] Supervisor: Marshall Paulino MD BUN/CRE Ratio 39 High 9-20 [facility] Comment on above: Performed By: #### T ROPI, CDP, BMPX #### [facility] [address] [place], [place] [address] [place] Supervisor: Luis Carlos Del Castillo MD #### GLYHGB #### [address] [address] [place] Supervisor: Marshall Paulino MD Calcium [Mass/Vol] 9.5 mg/dL Normal 8.6-10.4 [facility] Comment on above: Performed By: #### T ROPI, CDP, BMPX #### [facility] [address] [place], [place] [address]83 [place] Supervisor: Luis Carlos Del Castillo MD #### GLYHGB #### [address] [address] [place] Supervisor: Marshall Paulino MD Chloride [Moles/Vol] 106 mmol/L Normal 98-107 [facility] Comment on above: Performed By: #### T ROPI, CDP, BMPX #### [facility] [address] [place], [place] [address] [place] Supervisor: Luis Carlos Del Castillo MD #### GLYHGB #### [address] [address] [place] Supervisor: Marshall Paulino MD CO2 [Moles/Vol] 25 mmol/L Normal 20-31 [facility] Comment on above: Performed By: #### T ROPI, CDP, BMPX #### [facility] [address] [place], [place] [address] [place] Supervisor: Luis Carlos Del Castillo MD #### GLYHGB #### [address] [id number] [place] Supervisor: Marshall Paulino MD Creatinine [Mass/Vol] 0.70 mg/dL Normal 0.70-1.20 [facility] Comment on above: Performed By: #### T GEE ALONZO, BMPX #### [facility] [address] [place] [address] [place] Supervisor: Luis Carlos Del Castillo MD #### GLYHGB #### [address] [phone] [place] Supervisor: Marshall Paulino MD GFR/1.73 sq M.predicted among non-blacks MDRD (S/P/Bld) [Vol rate/Area] mL/min/{1.73_m2} Normal >60 [facility] Comment on above: Result Comment: [...] By: #### T GEE ALONZO BMPX #### [address] [place], [place] [address] [place] Supervisor: Luis Carlos Del Castillo MD #### GLYHGB #### [address] [phone] [place] Supervisor: Marshall Paulino MD Glucose [Mass/Vol] 103 mg/dL High 70-99 [facility] Comment on above: Performed By: #### T GEE ALONZO, BMPX #### [address] [place] [address] [place] Supervisor: Luis Carlos Del Castillo MD #### GLYHGB #### [address] [id number] [place] Supervisor: Marshall Paulino MD Potassium [Moles/Vol] 4.3 mmol/L Normal 3.7-5.3 [facility] Comment on above: Performed By: #### T GEE ALONZO, BMPX #### [facility] [address] [place] [address] [place] Supervisor: Luis Carlos Del Castillo MD #### GLYHGB #### [facility] [address] [place], [place] [phone] [place] Supervisor: Marshall Paulino MD Sodium [Moles/Vol] 140 mmol/L Normal 135-144 [facility] Comment on above: Performed By: #### T GEE ALONZO, BMPX #### [facility] [address] [place] [address] [place] Supervisor: Luis Carlos Del Castillo MD #### GLYHGB #### [address] [place] [address] [place] Supervisor: Marshall Paulino MD Urea nitrogen [Mass/Vol] 27 mg/dL High 8-23 [facility] Comment on above: Performed By: #### GEE ESPAÑA, BMPX #### [facility] [address] [place] [address] [place] Supervisor: Luis Carlos Del Castillo MD #### GLYHGB #### [address] [place], [place] [phone] [place] Supervisor: Marshall Paulino MD Basic Metabolic Panel w/ Ref maria antonia to MGon 12-31-2022 Anion gap [Moles/Vol] 9 mmol/L 9 - 17 mmol/L [facility] Calcium [Mass/Vol] 9.5 mg/dL 8.6 - 10. 4 mg/dL [facility] Chloride [Moles/Vol] 106 mmol/L 98 - 10 7 mmol/L [facility] CO2 [Moles/Vol] 25 mmol/L 20 - 31 mmol/L [facility] Creatinine [Mass/Vol] 0.7 mg/dL 0.70 - 1.20 mg/dL [facility] [employer] GFR/1.73 sq M.predicted MDRD (S/P/Bld) [Vol rate/Area] - PINF [facility] Comment on above: These results [...] 103 mg/dL High 70 - 99 mg/dL [facility] [employer] Interpretation and review of laboratory results Abnormal [facility] [employer] Potassium [Moles/Vol] 4.3 mmol/L 3.7 - 5.3 mmol/L [facility] Sodium [Moles/Vol] 140 mmol/L 135 - 144 mmol/L [facility] [employer] Urea nitrogen [Mass/Vol] 27 mg/dL High 8 - 23 mg/dL [facility] Urea nitrogen/Creatinine (Bld) [Mass ratio] 39 High 9 - 20 [facility] CARDIAC STRESS TESTon 2022 CARDIAC STRESS TEST [address] [address] CARDIAC STRESS TEST PATIENT NAME: NOEL ALVA : 1960 MED REC NO: [id number] ROOM: [id number] ACCOUNT NO: [id number] ADMIT DATE: 12/30/2022 PROVIDER: Fany Mohr MD [...] MIRIAN/BILLY_LUCIAN Doc#: Unknown CC: Romario Man Normal [facility] CBC with Auto Differentialon 12-31-2022 Absolute Eos # 0.18 SELAH S [facility] Absolute Immature Granulocyte [facility] Absolute Lymph # 1.58 [facility] Absolute Pitt # 0.72 [facility] RS [facility] Basophils (Bld) [#/Vol] 0.05 10*3/uL [facility] Interpretation and review of laboratory results Abnormal [facility] NRBC Automated 0.0 0.0 per 100 WBC [facility] Platelet distribution width (Bld) [Ratio] 13.9 % 11.8 - 14.4 % [facility] Segmented neutrophils/100 WBC (Bld) 62 % 36 - 65 % [facility] Segs Absolute 4.27 [facility] CBC with Diffon 12-31-2022 Abs. Basophil 0.05 k/uL Normal 0.00-0.20 [facility] Comment on above: Performed By: #### T GEE ALONZO, BMPX #### [facility] [address] [place] [address] [place] Supervisor: Luis Carlso Del Castillo MD #### GLYHGB #### [address] [address] [place] Supervisor: Marshall Paulino MD Abs.Imm.Granulocyte <0.03 Normal 0.00-0.30 [facility] Comment on above: Performed By: #### T GEE ALONZO, BMPX #### [facility] [address] [place] [id number] ( [place] Supervisor: Luis Carlos Del Castillo MD #### GLYHGB #### [place] [phone] [place] Supervisor: Marshall Paulino MD Abs.Neutrophil (Seg) 4.27 k/uL Normal 1.50-8.10 [facility] Comment on above: Performed By: #### GEE ESPAÑA, BMPX #### [address] [place] [phone] [place] Supervisor: Luis Carlos Del Castillo MD #### GLYHGB #### [place] [address] [place] Supervisor: Marshall Paulino MD Eosinophils (Bld) [#/Vol] 0.18 10*3/uL Normal 0.00-0.44 [facility] Comment on above: Performed By: #### GEE ESPAÑA, BMPX #### [address] [place] [phone] [place] Supervisor: Luis Carlos Del Castillo MD #### GLYHGB #### [place] [address] [place] Supervisor: Marshall Paulino MD Erythrocyte distribution width (RBC) [Ratio] 13.9 % Normal 11.8-14.4 [facility] Comment on above: Performed By: #### GEE ESPAÑA, BMPX #### [address] [place] [phone] [place] Supervisor: Luis Carlos Del Castillo MD #### GLYHGB #### [place] [address] [place] Supervisor: Marshall Paulino MD Lymphocytes (Bld) [#/Vol] 1.58 10*3/uL Normal 1.10-3.70 [facility] Comment on above: Performed By: #### T ROPI, CDP, BMPX #### [address] [place], [place] [phone] [place] Supervisor: Luis Carlos Del Castillo MD #### GLYHGB #### [address] [phone] [place] Supervisor: Marshall Paulino MD Monocytes (Bld) [#/Vol] 0.72 10*3/uL Normal 0.10-1.20 [facility] Comment on above: Performed By: #### T CHERI CDP, BMPX #### [address] [place], [place] [phone] [place] Supervisor: Luis Carlos Del Castillo MD #### GLYHGB #### [address] [phone] [place] Supervisor: Marshall Paulino MD Neutrophil (Seg) 62 % Normal 36-65 [facility] Comment on above: Performed By: #### GEE ESPAÑA, BMPX #### [address] [place] [phone] [place] Supervisor: Luis Carlos Del Castillo MD #### GLYHGB #### [address] [address] [place] Supervisor: Marshall Paulino MD NRBC Automated 0.0 per 100 WBC Normal 0.0 [facility] Comment on above: Performed By: #### T CHERI CDP, BMPX #### [address] [place], [place] [phone] [place] Supervisor: Luis Carlos Del Castillo MD #### GLYHGB #### [address] [phone] [place] Supervisor: Marshall Paulino MD Basophils/100 WBC (Bld) 1 % Normal 0-2 [facility] Comment on above: Performed By: #### T GEE ALONZO, BMPX #### [address] [place] [address] [place] Supervisor: Luis Carlos Del Castillo MD #### GLYHGB #### [address] [id number] [place] Supervisor: Marshall Paulino MD Eosinophils/100 WBC (Bld) 3 % Normal 1-4 [facility] Comment on above: Performed By: #### GEE ESPAÑA, BMPX #### [address] [place] [address] [place] Supervisor: Luis Carlos Del Castillo MD #### GLYHGB #### [place] [phone] [place] Supervisor: Marshall Paulino MD Hematocrit (Bld) [Volume fraction] 40.4 % Low 40.7-50.3 [facility] Comment on above: Performed By: #### GEE ESPAÑA, BMPX #### [address] [place] [address] [place] Supervisor: Luis Carlos Del Castillo MD #### GLYHGB #### [place] [place] [id number] [place] Supervisor: Marshall Paulino MD Hemoglobin (Bld) [Mass/Vol] 13.5 g/dL Normal 13.0-17.0 [facility] Comment on above: Performed By: #### GEE ESPAÑA, BMPX #### [address] [place] [address] [place] Supervisor: Luis Carlos Del Castillo MD #### GLYHGB #### [address] [address] [place] Supervisor: Marshall Paulino MD Immature granulocytes/100 WBC (Bld) 0 % Normal 0 [facility] Comment on above: Performed By: #### GEE ESPAÑA, BMPX #### [address] [place] [address] [place] Supervisor: Luis Carlos Del Castillo MD #### GLYHGB #### [place] [id number] [place] [address] [place] Supervisor: Marshall Paulino MD Lymphocytes/100 WBC (Bld) 23 % Low 24-43 [facility] Comment on above: Performed By: #### GEE ESPAÑA, BMPX #### [address] [place] [address] [place] Supervisor: Luis Calros Del Castillo MD #### GLYHGB #### [place] [phone] [place] Supervisor: Marshall Paulino MD MCH (RBC) [Entitic mass] 31.2 pg Normal 25.2-33.5 [facility] Comment on above: Performed By: #### GEE ESPAÑA, BMPX #### [address] [place] [address] [place] Supervisor: Luis Carlos Del Castillo MD #### GLYHGB #### [address] [address] [place] Supervisor: Marshall Paulino MD MCHC (RBC) [Mass/Vol] 33.4 g/dL Normal 28.4-34.8 [facility] Comment on above: Performed By: #### GEE ESPAÑA, BMPX #### [address] [place] [address] [place] Supervisor: Luis Carlos Del Castillo MD #### GLYHGB #### [address] [address] [place] Supervisor: Marshall Paulino MD MCV (RBC) [Entitic vol] 93.3 fL Normal 82.6-102.9 [facility] Comment on above: Performed By: #### GEE ESPAÑA, BMPX #### [address] [place] [id number] [place] Supervisor: Luis Carlos Del Castillo MD #### GLYHGB #### [address] [id number] [place] Supervisor: Marshall Paulino MD Monocytes/100 WBC (Bld) 11 % Normal 3-12 [facility] Comment on above: Performed By: #### GEE ESPAÑA, BMPX #### [address] [place] [id number] [place] Supervisor: Luis Carlos Del Castillo MD #### GLYHGB #### [place] [phone] [place] Supervisor: Marshall Paulino MD Platelet mean volume (Bld) [Entitic vol] 10.1 fL Normal 8.1-13.5 [facility] Comment on above: Performed By: #### GEE ESPAÑA, BMPX #### [address] [place] [id number] [place] Supervisor: Luis Carlos Del Castillo MD #### GLYHGB #### [place] [phone] [place] Supervisor: Marshall Paulino MD Platelets (Bld) [#/Vol] 190 10*3/uL Normal 138-453 [facility] Comment on above: Performed By: #### GEE ESPAÑA, BMPX #### [address] [place] [id number] [place] Supervisor: Luis Carlos Del Castillo MD #### GLYHGB #### [address] [phone] [place] Supervisor: Marshall Paulino MD RBC (Bld) [#/Vol] 4.33 10*6/uL Normal 4.21-5.77 [facility] Comment on above: Performed By: #### Ileana ALONZO, CDP, BMPX #### [facility] [address] [place] [address] [place] Supervisor: Luis Carlos Del Castillo MD #### GLYHGB #### [facility] [address] [place], [place] [id number] [place] Supervisor: Marshall Paulino MD WBC (Bld) [#/Vol] 6.8 10*3/uL Normal 3.5-11.3 [facility] [employer] Comment on above: Performed By: #### T GEE ALONZO, BMPX #### [facility] [address] [place] [address] [place] Supervisor: Luis Carlos Del Castillo MD #### GLYHGB #### [facility] [address] [place] [address] [place] Supervisor: Marshall Paulino MD EKG 12 leadon 12-31-2022 Atrial Rate 51 BPM [email or web address] Work Phone: P [place] 51 degrees [facility] [employer] Work Phone: P-R Interval 144 ms [employer] Phone: Q-T Interval 490 ms [facility] [employer] Work Phone: QRS Duration 72 ms [email or web address] Work Phone: QTc Calculation (Bazett) 451 ms [email or web address] Work Phone: R [place] 47 degrees [employer] Phone: T [place] 91 degrees [employer] Phone: Ventricular Rate 51 BPM [employer] [facility] [employer] Work Phone: Sinus bradycardia T wave abnormality, consider lateral ischemia Abnormal ECG When compared with ECG of 30-DEC-2022 06:16, Inverted T waves have replaced nonspecific T wave abnormality in Anterior leads QT has lengthened Confirmed by Fany Mohr MD ([id number]) on 12/31/2022 1:07:[address] [facility] Fany Mohr MD - 12/31/2022 Sinus bradycardia T wave abnormality, consider lateral ischemia Abnormal ECG When compared with ECG of 30-DEC-2022 06:16, Inverted T waves have replaced nonspecific T wave abnormality in Anterior leads QT has lengthened Confirmed by Fany Mohr MD ([id number]) on 12/31/2022 1:07:24 PM [facility] Work Phone: [facility] Work Phone: EKG Rhythm Stripon 3 [facility] Lipid Panelon 12-31-2022 Cholesterol [Mass/Vol] 103 mg/dL NINF - 200 mg/dL [facility] Comment on above: Cholesterol Guidelines: <200 Desirable 200-240 Borderline >240 Undesirable Cholesterol in HDL [Mass/Vol] 44 mg/dL 40 - PINF mg/dL [facility] Comment on above: HDL Guidelines: <40 Undesirable 40-59 Borderline >59 Desirable Cholesterol in LDL [Mass/Vol] 46 mg/dL 0 - 130 mg/dL [facility] Comment on above: LDL Guidelines: <100 Desirable 100-129 Near to/above Desirable 130-159 Borderline >159 Undesirable Direct (measured) LDL and calculated LDL are not interchangeable tests. Cholesterol.total/Ch olesterol in HDL [Mass ratio] 2.3 {ratio} NINF - 5 [facility] Triglyceride [Mass/Vol] 67 mg/dL NINF - 150 mg/dL [facility] Comment on above: Triglyceride Guidelines: <150 Desirable 150-199 Borderline 200-499 High >499 Very high Based on AHA Guidelines for fasting triglyceride, July 2012. [facility] Lipid Profileon 12-31-2022 Cholesterol [Mass/Vol] 103 mg/dL Normal <200 [facility] Comment on above: Result Comment: Cholesterol Guidelines: <200 Desirable 200-240 Borderline >240 Undesirable Performed By: #### L IPR #### [address] [address] [place] Supervisor: Marshall Paulino MD Cholesterol in HDL [Mass/Vol] 44 mg/dL Normal >40 [facility] Comment on above: Result Comment: HDL Guidelines: <40 Undesirable 40-59 Borderline >59 Desirable Performed By: #### L IPR #### [address] [address] [place] Supervisor: Marshall Paulino MD Cholesterol in LDL [Mass/Vol] 46 mg/dL Normal 0-130 [facility] Comment on above: Result Comment: LDL Guidelines: <100 Desirable 100-129 Near to/above Desirable 130-159 Borderline >159 Undesirable Direct (measured) LDL and calculated LDL are not interchangeable tests. Performed By: #### L IPR #### [address] [address] [place] Supervisor: Marshall Paulino MD Cholesterol.total/Ch olesterol in HDL [Mass ratio] 2.3 {ratio} Normal <5 [facility] Comment on above: Performed By: #### L IPR #### [address] [address] [place] Supervisor: Marshall Paulino MD Triglyceride [Mass/Vol] 67 mg/dL Normal <150 [facility] Comment on above: Result Comment: Triglyceride Guidelines: <150 Desirable 150-199 Borderline 200-499 High >499 Very high Based on AHA Guidelines for fasting triglyceride, July 2012. Performed By: #### L IPR #### [address] [address] [place] Supervisor: Marshall Paulino MD Resp Viral Panelon 3 Adenovirus Not detected Normal [facility] Comment on above: Performed By: #### L IPR #### [address] [address] [place] Supervisor: Marshall Paulino MD Bordet.parapertussis Not detected Normal [facility] Comment on above: Performed By: #### L IPR #### [facility] [facility] [place] [address] [place] Supervisor: MD Kat Martintella pertussis Not detected Normal [facility] Comment on above: Performed By: #### L IPR #### [facility] [employer] [address] [place] [address] [place] Supervisor: Marshall Paulino MD Chlamyd.pneumoniae Not detected Normal [facility] Comment on above: Performed By: #### L IPR #### [facility] [employer] [address] [place] [address] [place] Supervisor: Marshall Paulino MD Coronavirus 229E Not detected [facility] Comment on above: Performed By: #### L IPR #### [facility] [employer] [address] [place] [address] [place] Supervisor: Marshall Pauilno MD Coronavirus HKU1 Not detected Normal [facility] Comment on above: Performed By: #### L IPR #### [facility] [employer] [address] [place] [address] [place] Supervisor: Marshall Paulino MD Coronavirus NL63 Not detected [facility] Comment on above: Performed By: #### L IPR #### [facility] [employer] [address] [place] [address] [place] Supervisor: Marshall Paulino MD Coronavirus OC43 Not detected Normal [facility] Comment on above: Performed By: #### L IPR #### [facility] [employer] [address] [place] [address] [place] Supervisor: Marshall Paulino MD Human Metapneumo Not detected Normal [facility] Comment on above: Performed By: #### L IPR #### [facility] [address] [place] [address] [place] Supervisor: Marshall Paulino MD Influenza A Not detected Normal [facility] Comment on above: Performed By: #### L IPR #### [address] [address] [place] Supervisor: Marshall Paulino MD Influenza B Not detected Normal [facility] Comment on above: Performed By: #### L IPR #### [address] [address] [place] Supervisor: Marshall Paulino MD Mycoplas.pneumoniae Not detected Normal [facility] Comment on above: Result Comment: Perf ormed by multiplexed nucleic acid assay. Performed By: #### L IPR #### [address] [address] [place] Supervisor: Marshall Paulino MD Parainfluenza 1 Not detected Normal [facility] Comment on above: Performed By: #### L IPR #### [facility] [address] [place] [address] [place] Supervisor: Marshall Paulino MD Parainfluenza 2 Not detected [facility] Comment on above: Performed By: #### L IPR #### [address] [address] [place] Supervisor: Marshall Paulino MD Parainfluenza 3 Not detected Normal [facility] Comment on above: Performed By: #### L IPR #### [facility] [employer] [address] [place] [address] [place] Supervisor: Marshall Paulino MD Parainfluenza 4 Not detected [facility] Comment on above: Performed By: #### L IPR #### [facility] [address] [place] [address] [place] Supervisor: Marshall Paulino MD Resp Syncytial Virus Not detected Normal [facility] Comment on above: Performed By: #### L IPR #### [facility] [address] [place] [address] [place] Supervisor: Marshall Paulino MD Rhino/Enterovirus Not detected Normal [facility] Comment on above: Performed By: #### L IPR #### [facility] [address] [place] [address] [place] Supervisor: Marshall Paulino MD SARS-CoV-2 (COVID-19) RNA DAHLIA+probe Ql (Unsp spec) Not detected Normal [facility] Comment on above: Performed By: #### L IPR #### [facility] [address] [place] [address] [place] Supervisor: Marshall Paulino MD Respiratory Panel, Molecular , with COVID-19 (Restricted: peds pts or suitable admitted adults)on 12-31-2022 Adenovirus PCR Not detected Not Detected [facility] B. parapertussis [id number] DNA DAHLIA+non-probe Ql (Nph) Not detected Not Detected [facility] B. pertussis DNA DAHLIA+probe Ql (Unsp spec) Not detected Not Detected [facility] Chlamydia pneumoniae By PCR Not detected Not Detected [facility] Coronavirus 229E PCR Not detected Not Detected [facility] Coronavirus HKU1 PCR Not detected Not Detected [facility] Coronavirus NL63 PCR Not detected Not Detected [facility] Coronavirus OC43 PCR Not detected Not Detected [facility] FLUAV RNA DAHLIA+non-probe Ql (Nph) Not detected Not Detected [facility] FLUBV RNA DAHLIA+non-probe Ql (Nph) Not detected Not Detected [facility] Human Metapneumovirus PCR Not detected Not Detected [facility] Mycoplasma pneumo by PCR Not detected Not Detected [facility] Comment on above: Performed by multipl exed nucleic acid assay. Parainfluenza 1 PCR Not detected Not Detected [facility] Parainfluenza 2 PCR Not detected Not Detected [facility] Parainfluenza 3 PCR Not detected Not Detected [facility] Parainfluenza 4 PCR Not detected Not Detected [facility] Resp Syncytial Virus PCR Not detected Not Detected [facility] Rhino/Enterovirus PCR Not detected Not Detected [facility] SARS-CoV-2 (COVID-19) RNA DAHLIA+non-probe Ql (Nph) Not detected Not Detected [facility] Specimen Description .NASOP[facility]ARYNGEAL [facility] Troponinon 12-31-2022 Troponin, High Sens 18 ng/L Normal 0-22 [facility] Comment on above: Result Comment: High Sensitivity Troponin values cannot be compared with other Troponin methodologies. Performed By: #### T ROPI, CDP, BMPX #### [facility] [address] [place] [address] [place] Supervisor: Luis Carlos Del Castillo MD #### GLYHGB #### [address] [id number] [place] Supervisor: Marshall Paulino MD Troponin I.cardiac DL <= 0.01 ng/mL [Mass/Vol] 18 ng/L 0 - 22 ng/L [facility] Comment on above: High Sensitivity Tro ponin values cannot be compared with other Troponin methodologies. [facility] Brain Natri. Peptideon 12-30 Natriuretic peptide B (Bld) [Mass/Vol] 308 pg/mL High <300 [facility] Comment on above: Result Comment: An age-independent cutoff point of 300 pg/ml has a 98% negative predictive value excluding acute heart failure. Performed By: #### B AUTHORIZATION COORDINATOR #### [facility] [address] [place] [address] [place] Supervisor: Luis Carlos Del Castillo MD Brain Natriuretic Peptideon 12-30-2022 Interpretation and review of laboratory results Abnormal [facility] Natriuretic peptide B (Bld) [Mass/Vol] 308 pg/mL High NINF - 300 pg/mL [facility] Comment on above: An age-independent cutoff point of 300 pg/ml has a 98% negative predictive value excluding acute heart failure. [facility] CBC with Auto Differentialon 12-30-2022 Absolute Eos # 0.07 [facility] Absolute Immature Granulocyte 0.04 [facility] Absolute Lymph # 1.83 [facility] Absolute Pitt # 0.91 [facility] Basophils (Bld) [#/Vol] 0.06 10*3/uL [facility] Basophils/100 WBC (Bld) 1 % 0 - 2 % [facility] Eosinophils/100 WBC (Bld) 1 % 1 - 4 % [facility] Hematocrit (Bld) [Volume fraction] 39.6 % Low 40.7 - 50.3 % [facility] Hemoglobin (Bld) [Mass/Vol] 13.8 g/dL 13.0 - 17.0 g/dL [facility] Immature granulocytes/100 WBC (Bld) 0 % 0 [facility] Interpretation and review of laboratory results Abnormal [facility] Lymphocytes/100 WBC (Bld) 18 % Low 24 - 43 % [facility] MCH (RBC) [Entitic mass] 31.8 pg 25.2 - 33.5 pg [facility] MCHC (RBC) [Mass/Vol] 34.8 g/dL 28.4 - 34.8 g/dL [facility] MCV (RBC) [Entitic vol] 91.2 fL 82.6 - 102.9 fL [facility] Monocytes/100 WBC (Bld) 9 % 3 - 12 % [facility] NRBC Automated 0.0 0.0 per 100 WBC [facility] Platelet distribution width (Bld) [Ratio] 13.5 % 11.8 - 14.4 % [facility] Platelet mean volume (Bld) [Entitic vol] 9.9 fL 8.1 - 13.5 fL [facility] Platelets (Bld) [#/Vol] 189 10*3/uL [facility] RBC (Bld) [#/Vol] 4.34 10*6/uL 4.21 - 5.77 m/uL [facility] Segmented neutrophils/100 WBC (Bld) 71 % High 36 - 65 % [facility] Segs Absolute 7.15 [facility] WBC (Bld) [#/Vol] 10.1 10*3/uL [facility] CBC with Diffon 12-30-2022 Abs. Basophil 0.06 k/uL Normal 0.00-0.20 [facility] Comment on above: Performed By: #### Ileana ALONZO CP, CDP #### [facility] [address] [place], [place] [id number] [place] Supervisor: Luis Carlos Del Castillo MD Abs.Imm.Granulocyte 0.04 k/uL Normal 0.00-0.30 [facility] Comment on above: Performed By: #### Ileana ALONZO CP, CDP #### [facility] [address] [place], [facility] [place] Supervisor: Luis Carlos Del Castillo MD Abs.Neutrophil (Seg) 7.15 k/uL Normal 1.50-8.10 [facility] Comment on above: Performed By: #### Ileana ALONZO CP, CDP #### [facility] [address] [place], [place] [address] [place] Supervisor: Luis Carlos Del Castillo MD Basophils/100 WBC (Bld) 1 % Normal 0-2 [facility] Comment on above: Performed By: #### Ileana ALONZO CP, CDP #### [address] [place], [facility] [place] Supervisor: Luis Carlos Del Castillo MD Eosinophils (Bld) [#/Vol] 0.07 10*3/uL Normal 0.00-0.44 [facility] Comment on above: Performed By: #### Ileana ALONZO CP, CDP #### [facility] [address] [place], [facility] [place] Supervisor: Luis Carlos Del Castillo MD Eosinophils/100 WBC (Bld) 1 % Normal 1-4 [facility] Comment on above: Performed By: #### Ileana ALONZO CP, CDP #### [facility] [address] [place], [facility] [place] Supervisor: Luis Carlos Del Castillo MD Erythrocyte distribution width (RBC) [Ratio] 13.5 % Normal 11.8-14.4 [facility] Comment on above: Performed By: #### Ileana ALONZO CP, CDP #### [facility] [address] [place] [address] Dr. [place], [place] [id number] [place] Supervisor: Luis Carlos Del Castillo MD Hematocrit (Bld) [Volume fraction] 39.6 % Low 40.7-50.3 [facility] Comment on above: Performed By: #### Ileana ALONZO CP, CDP #### [address] [place] [id number] [place] Supervisor: Luis Carlos Del Castillo MD Hemoglobin (Bld) [Mass/Vol] 13.8 g/dL Normal 13.0-17.0 [facility] Comment on above: Performed By: #### Ileana ALONZO CP, CDP #### [address] [place], [facility] [place] Supervisor: Luis Carlos Del Castillo MD Immature granulocytes/100 WBC (Bld) 0 % Normal 0 [facility] Comment on above: Performed By: #### Ileana ALNOZO CP, CDP #### [address] [place] [id number] [place] Supervisor: Luis Carlos Del Castillo MD Lymphocytes (Bld) [#/Vol] 1.83 10*3/uL Normal 1.10-3.70 [facility] Comment on above: Performed By: #### Ileana ALONZO CP, CDP #### [facility] [address] [place] [address] Dr. [place], [facility] [place] Supervisor: Luis aCrlos Del Castillo MD Lymphocytes/100 WBC (Bld) 18 % Low 24-43 [facility] Comment on above: Performed By: #### Ileana ALONZO CP, CDP #### [facility] [address] [place] [address] Dr. [place], [facility] [place] Supervisor: Luis Carlos Del Castillo MD MCH (RBC) [Entitic mass] 31.8 pg Normal 25.2-33.5 [facility] Comment on above: Performed By: #### Ileana ALONZO CP, CDP #### [facility] [address] [place] [address] [place] Supervisor: Luis Carlos Del Castillo MD MCHC (RBC) [Mass/Vol] 34.8 g/dL Normal 28.4-34.8 [facility] Comment on above: Performed By: #### Ileana ALONZO CP, CDP #### [facility] [address] [place] [address] [place] Supervisor: Luis Carlos Del Castillo MD MCV (RBC) [Entitic vol] 91.2 fL Normal 82.6-102.9 [facility] Comment on above: Performed By: #### Ileana ALONZO CP, CDP #### [facility] [address] [place], [place] [id number] [place] Supervisor: Luis Carlos Del Castillo MD Monocytes (Bld) [#/Vol] 0.91 10*3/uL Normal 0.10-1.20 [facility] Comment on above: Performed By: #### Ileana ALONZO CP, CDP #### [facility] [address] [place], [place] [id number] [place] Supervisor: Luis Carlos Del Castillo MD Monocytes/100 WBC (Bld) 9 % Normal 3-12 [facility] Comment on above: Performed By: #### Ileana ALONZO CP, CDP #### [facility] [address] [place] [address] [place] Supervisor: Luis Carlos Del Castillo MD Neutrophil (Seg) 71 % High 36-65 [facility] Comment on above: Performed By: #### Ileana ALONZO CP, CDP #### [facility] [address] [place] [address] [place] Supervisor: Luis Carlos Del Castillo MD NRBC Automated 0.0 per 100 WBC Normal 0.0 [facility] Comment on above: Performed By: #### Ileana ALONZO CP, CDP #### [facility] [address] [place], [place] [id number] [place] Supervisor: Luis Carlos Del Castillo MD Platelet mean volume (Bld) [Entitic vol] 9.9 fL Normal 8.1-13.5 [facility] Comment on above: Performed By: #### Ileana ALONZO CP, CDP #### [facility] [address] [place] [address] [place] [address] [place] Supervisor: Luis Carlos Del Castillo MD Platelets (Bld) [#/Vol] 189 10*3/uL Normal 138-453 [facility] Comment on above: Performed By: #### Ileana ALONZO CP, CDP #### [address] [place] [address] [place] Supervisor: Luis Carlos Del Castillo MD RBC (Bld) [#/Vol] 4.34 10*6/uL Normal 4.21-5.77 [facility] Comment on above: Performed By: #### Ileana ALONZO CP, CDP #### [address] [place], [place] [phone] [place] Supervisor: Luis Carlos Del Castillo MD WBC (Bld) [#/Vol] 10.1 10*3/uL Normal 3.5-11.3 [facility] Comment on above: Performed By: #### Ileana ALONZO CP, CDP #### [facility] [address] [place] [address] Dr. [place], [place] [id number] [place] Supervisor: Luis Carlos Del Castillo MD COVID-19, Rapidon 12-30-2022 SARS-CoV-2 (COVID-19) RdRp gene DAHLIA+probe Ql (Resp) Not detected Not Detected [facility] Comment on above: Rapid NAAT: [...] management decisions. Fact sheet for Healthcare Providers: https://www.fda.gov/media/467852/download Fact sheet for Patients: https://www.fda.gov/media/411999/download Methodology: Isothermal Nucleic Acid Amplification Specimen Description .NASOPHARYNGEAL [facility] CT CHEST PULMONARY EMBOLISM W CONTRASTon 12-30-2022 [...] Dov Love MD 12/30/22 Final result Normal [facility] Negative for acute pulmonary embolus Right-sided aortic arch Bilateral patchy pulmonary infiltrates which are predominantly peripheral which may be related atypical infectious etiology. Large hiatal hernia and wall thickening in the distal esophagus. An esophagram or endoscopy may be helpful for further evaluation if clinically indicated. [facility] EXAMINATION: CTA OF THE [...] No acute bone or soft tissue abnormality. [facility] Dov Love MD - [...] helpful for further evaluation if clinically indicated. [facility] Shift Phone: Radiology Study observation (narrative) [facility] [employer] Phone: CT CHEST PULMONARY EMBOLISM W CONTRASTOrdered By: Dov Love on 12-30-2022 [facility] Shift Phone: Comp Metabolic Profon 2022 Albumin [Mass/Vol] 3.9 g/dL Normal 3.5-5.2 [facility] Comment on above: Performed By: #### T NATHAN ALONZO, CDP #### [facility] [facility] [address] [place] [address] [employer]per[employer] Supervisor: Luis Carlos Del Castillo MD Albumin/Glob Ratio 1.3 Normal 1.0-2.5 [facility] Comment on above: Performed By: #### T ANTHAN ALONZO, CDP #### [facility] [address] [place] [address] [employer] Supervisor: Luis Carlos Del Castillo MD Alkaline Phos 102 U/L Normal 40-129 [facility] Comment on above: Performed By: #### T NATHAN ALONZO, CDP #### [facility] [address] [place] [address] [employer] Supervisor: Luis Carlos Del Castillo MD ALT [Catalytic activity/Vol] 19 U/L Normal 5-41 [facility] Comment on above: Performed By: #### T NATHAN ALONZO, CDP #### [facility] [address] [place], [place] [id number] [employer] Supervisor: Luis Carlos Del Castillo MD Anion gap [Moles/Vol] 10 mmol/L Normal 9-17 [facility] Comment on above: Performed By: #### T NATHAN ALONZO, CDP #### [facility] [address] [place], [place] [id number] [employer] Supervisor: Luis Carlos Del Castillo MD AST [Catalytic activity/Vol] 16 U/L Normal <40 [facility] Comment on above: Performed By: #### Ileana ALONZO CP, CDP #### [facility] [address] [place], [place] [id number] [employer] Supervisor: Luis Carlos Del Castillo MD Bilirubin [Mass/Vol] 0.8 mg/dL Normal 0.3-1.2 [facility] Comment on above: Performed By: #### Ileana ALONZO CP, CDP #### [facility] [address] [place], [place] [id number] [place] Supervisor: Luis Carlos Del Castillo MD BUN/CRE Ratio 25 High 9-20 [facility] Comment on above: Performed By: #### Ileana ALONZO CP, CDP #### [facility] [address] [place], [place] [address] [employer] Supervisor: Luis Carlos Del Castillo MD Calcium [Mass/Vol] 9.5 mg/dL Normal 8.6-10.4 [facility] Comment on above: Performed By: #### Ileana ALONZO CP, CDP #### [facility] [address] [place], [place] [id number] [place] Supervisor: Luis Carlos Del Castillo MD Chloride [Moles/Vol] 105 mmol/L Normal 98-107 [facility] Comment on above: Performed By: #### Ileana ALONZO CP, CDP #### [facility] [address] [place] [address] [employer] Supervisor: Luis Carlos Del Castillo MD CO2 [Moles/Vol] 24 mmol/L Normal 20-31 [facility] Comment on above: Performed By: #### Ileana ALONZO CP, CDP #### [facility] [address] [place] [address] [employer] Supervisor: Luis Carlos Del Castillo MD Creatinine [Mass/Vol] 0.63 mg/dL Low 0.70-1.20 [facility] Comment on above: Performed By: #### Ileana ALONZO CP, CDP #### [facility] [address] [place] [address] [place] Supervisor: Luis Carlos Del Castillo MD GFR/1.73 sq M.predicted among non-blacks MDRD (S/P/Bld) [Vol rate/Area] mL/min/{1.73_m2} Normal >60 [facility] Comment on above: Result Comment: [...] By: #### Ileana ALONZO CP, CDP #### [facility] [address] [place] [address] [employer] Supervisor: Luis Carlos Del Castillo MD Glucose [Mass/Vol] 113 mg/dL High 70-99 [facility] Comment on above: Performed By: #### Ileana ALONZO CP, CDP #### [facility] [address] [place] [address] [employer] Supervisor: Luis Carlos Del Castillo MD Potassium [Moles/Vol] 3.9 mmol/L Normal 3.7-5.3 [facility] Comment on above: Performed By: #### T NATHAN ALONZO, CDP #### [facility] [address] [place] [address] [employer] Supervisor: Luis Carlos Del Castillo MD Protein [Mass/Vol] 7.0 g/dL Normal 6.4-8.3 [facility] Comment on above: Performed By: #### Ileana ALONZO CP, CDP #### [facility] [address] [place], [place] [address] [place] Supervisor: Luis Carlos Del Castillo MD Sodium [Moles/Vol] 139 mmol/L Normal 135-144 [facility] Comment on above: Performed By: #### Ileana ALONZO CP, CDP #### [facility] [address] [place] [address] [employer] Supervisor: Luis Carlos Del Castillo MD Urea nitrogen [Mass/Vol] 16 mg/dL Normal 8-23 [facility] Comment on above: Performed By: #### Ileana ALONZO CP, CDP #### [facility] [address] [place] [address] [employer] Supervisor: Luis Carlos Del Castillo MD [facility] Metabolic Pane [facility] 12-30-2022 Albumin [Mass/Vol] 3.9 g/dL 3.5 - 5.2 g/dL [facility] Albumin/Globulin [Mass ratio] 1.3 {ratio} 1.0 - 2.5 [facility] ALP [Catalytic activity/Vol] 102 U/L 40 - 129 U/L [facility] ALT [Catalytic activity/Vol] 19 U/L 5 - 41 U/L [facility] Anion gap [Moles/Vol] 10 mmol/L 9 - 17 mmol/L [facility] AST [Catalytic activity/Vol] 16 U/L NINF - 40 U/L [facility] Bilirubin [Mass/Vol] 0.8 mg/dL 0.3 - 1 .2 mg/dL [facility] Calcium [Mass/Vol] 9.5 mg/dL 8.6 - 10. 4 mg/dL [facility] Chloride [Moles/Vol] 105 mmol/L 98 - 10 7 mmol/L [facility] CO2 [Moles/Vol] 24 mmol/L 20 - 31 mmol/L [facility] Creatinine [Mass/Vol] 0.63 mg/dL Low 0.70 - 1.20 mg/dL [facility] GFR/1.73 sq M.predicted MDRD (S/P/Bld) [Vol rate/Area] - PINF [facility] Comment on above: These results [...] 113 mg/dL High 70 - 99 mg/dL [facility] Interpretation and review of laboratory results Abnormal [facility] Potassium [Moles/Vol] 3.9 mmol/L 3.7 - 5.3 mmol/L [facility] Protein [Mass/Vol] 7.0 g/dL 6.4 - 8.3 g/dL [facility] Sodium [Moles/Vol] 139 mmol/L 135 - 144 mmol/L [facility] Urea nitrogen [Mass/Vol] 16 mg/dL 8 - 23 mg/dL [facility] Urea nitrogen/Creatinine (Bld) [Mass ratio] 25 High 9 - 20 [facility] EKG 12 Leadon 12-30-2022 Atrial Rate 51 BPM [employer] Work Phone: P [place] 39 degrees [employer] Work Phone: P-R Interval 146 ms [employer] Work Phone: Q-T Interval 424 ms [employer] Work Phone: QRS Duration 72 ms [employer] Work Phone: QTc Calculation (Bazett) 390 ms [employer] Phone: R [place] 56 degrees [employer] Phone: T [place] 73 degrees [employer] Phone: Ventricular Rate 51 BPM [employer] Phone: Poor data qualit y, interpretation may be adversely affected Sinus bradycardia Nonspecific ST and T wave abnormality Abnormal ECG Confirmed by Fany Mohr MD ([id number]) on 12/30/2022 8:21:[address] [facility] Fany Mohr MD - 12/30/2022 Poor data quality, interpretation may be adversely affected Sinus bradycardia Nonspecific ST and T wave abnormality Abnormal ECG Confirmed by Fany Mohr MD ([id number]) on 12/30/2022 8:21:48 AM [email or web address] Work Phone: [employer] Work Phone: EKG Rhythm Stripon 3 [facility] [employer] Echocardiogram complete 2D w ith doppler with coloron 12-30-2022 Left ventricular Ejection fraction 55 [employer] Phone: LVEF MODALITY ECHO [employer] Phone: [facility] Transthoracic Echocardiography Report (TTE) Patient Name ALVA Date of Study 12/30/2022 NOEL Vaca Date of 1960 Gender Male Age 62 year(s) Race Room Number 0327 Height: 66 inch, 167.64 cm Corporate ID [id number] Weight: 160 pounds, 72.6 kg # Patient Acct [id number] BSA: 1.82 m^2 BMI: 25.82 kg/m^2 # MR # [id number] Line Installation Supervisor Keke Tineo Interpreting Physician Fany Mohr Fellow Referring Nurse Cece Villalobos, Practitioner [employer] Interpreting Referring Physician Fellow Type of Study TTE procedure:2D Echocardiogram, M-Mode, Doppler, Color Doppler. Procedure Date Date: 12/30/2022 Start: 02:20 PM Study Location: [facility] Indications:Chest pain. History / Tech. [...] MD / Result, Unknown Provider - 12/30/2022 [facility] Transthoracic Echocardiography Report (TTE) Patient Name ABBY Date of Study 12/30/2022 NOEL Vaca Date of 1960 Gender Male Age 62 year(s) Race Room Number 0327 Height: 66 inch, 167.64 cm Corporate ID [id number] Weight: 160 pounds, 72.6 kg # Patient Acct [id number] BSA: 1.82 m^2 BMI: 25.82 kg/m^2 # MR # [id number] Line Installation Supervisor Keke Tineo Interpreting Physician Fany Mohr Fellow Referring Nurse Cece Villalobos, Practitioner [employer] Interpreting Referring Physician Fellow Type of Study TTE procedure:2D Echocardiogram, M-Mode, Doppler, Color Doppler. Procedure Date Date: 12/30/2022 Start: 02:20 PM Study Location: [facility] Indications:Chest pain. History / Tech. [...] Wall E' velocity:0.12 m/s Lateral Wall E/E':6.28 [facility] Shift Phone: [facility] Shift Phone: Resp Viral Panelon 3 Source: .NASOPHARYNGEAL SWAB Normal [facility] Comment on above: Performed By: #### L IPR #### [facility] [employer] [address] [place] [address] [place] Supervisor: Marshall Paulino MD [id number] 12-30-2022 SARS-CoV-2 (COVID-19) RNA DAHLIA+probe Ql (Unsp spec) Not detected Normal [facility] Comment on above: Result Comment: Rapid [...] management decisions. Fact sheet for Healthcare Providers: https://www.fda.gov/media/896197/download Fact sheet for Patients: https://www.fda.gov/media/762725/download Methodology: Isothermal Nucleic Acid Amplification Performed By: #### L IPR #### [facility] [employer] [address] [place] [address] [employer] Supervisor: Marshall Paulino MD Troponinon 12-30-2022 Troponin, High Sens 17 ng/L Normal 0-22 [facility] Comment on above: Result Comment: High Sensitivity Troponin values cannot be compared with other Troponin methodologies. Performed By: #### L IPR #### [facility] [employer] [address] [place] [address] [employer] Supervisor: Marshall Paulino MD Troponin, High Sens 19 ng/L Normal 0-22 [facility] Comment on above: Result Comment: High Sensitivity Troponin values cannot be compared with other Troponin methodologies. Performed By: #### T NATHAN ALONZO, CDP #### [facility] [address] [place], [place] [id number] [employer] Supervisor: Luis Carlos Del Castillo MD Troponin I.cardiac DL <= 0.01 ng/mL [Mass/Vol] 17 ng/L 0 - 22 ng/L [facility] Comment on above: High Sensitivity Tro ponin values cannot be compared with other Troponin methodologies. [facility] Troponin I.cardiac DL <= 0.01 ng/mL [Mass/Vol] 19 ng/L 0 - 22 ng/L [facility] Comment on above: High Sensitivity Tro ponin values cannot be compared with other Troponin methodologies. [facility] XR CHEST PORTABLEon 12-31-19 XR [...] Sherrill Parmar MD 12/30/22 Final result Normal [facility] There is a new left midlung opacity and adjacent mildly prominent interstitial markings, suggestive of pneumonia. Recommend imaging follow-up to resolution to exclude an underlying lesion. [facility] EXAMINATION: ONE XRAY VIEW [...] at or pneumothorax. No acute osseous abnormality. [facility] Sherrill Parmar MD - [...] to resolution to exclude an underlying lesion. [employer] Phone: Radiology Study observation (narrative) [employer] Phone: XR CHEST PORTABLEOrdered By: Sherrill Parmar on 12-30-2022 [facility] [employer] Phone: XR LSPINE MIN 4 VIEWSon 12-04 [...] Date: 2022-12-18 13:59 [address] [facility] MRI LSPINE WO CONon 11-06-19 [...] Date: 2022-11-06 15:[address] [facility] TESTOSTERONE, TOTALon 2021 Testosterone [Mass/Vol] 279 ng/dL Normal 264-916 [facility] Comment on above: Result Comment: Adul t male reference interval is based on a population of healthy nonobese males (BMI <30) between 19 and 39 years old. axel [place].al. JCEM 2017,102;[id number]. PMID: [id number]. Performed By: #### H GBHCT #### [facility] [address] [place] [address] Dr. Raimundo Estrada CBC AUTO DIFFon 09-11-2022 BASO # 0.1 103/ul Normal 0.0-0.1 [facility] Comment on above: Performed By: #### H GBHCT #### [facility] [address] [place] [address] Dr. Raimundo Estrada Basophils/100 WBC (Bld) 0.6 % Normal 0.2-2.0 [facility] Comment on above: Performed By: #### H GBHCT #### [facility] [address] [place] [address] Dr. Raimundo Estrada EO # 0.2 103/ul Normal 0.0-0.7 [facility] Comment on above: Performed By: #### H GBHCT #### [facility] [address] [place] [address] Dr. Raimundo Estrada Eosinophils/100 WBC (Bld) 2.4 % Normal 0.9-7.0 [facility] Comment on above: Performed By: #### H GBHCT #### [facility] [address] [place] [address] Dr. Raimundo Estrada Erythrocyte distribution width (RBC) [Ratio] 14.1 % Normal 11.0-15.0 [facility] Comment on above: Performed By: #### H GBHCT #### [facility] [address] [place] [address] Dr. Raimundo Estrada Hematocrit (Bld) [Volume fraction] 40.2 % Critically low 42.0-54.0 [facility] Comment on above: Performed By: #### H GBHCT #### [facility] [address] [place] [address] Dr. Raimundo Estrada Hemoglobin (Bld) [Mass/Vol] 13.4 g/dL Critically low 14.0-18.0 [facility] Comment on above: Performed By: #### H GBHCT #### [facility] [address] [place] [address] Dr. Raimundo Estrada IG # 0.03 10e3/ul Normal 0.00-0.03 [facility] Comment on above: Performed By: #### H GBHCT #### [facility] [address] [place] [address] Dr. Raimundo Estrada IG % 0.4 % Normal 0.0-0.5 [facility] Comment on above: Performed By: #### H GBHCT #### [facility] [address] [place] [address] Dr. Raimundo Estrada LYMPH # 1.7 103/ul Normal 1.2-3.8 [facility] Comment on above: Performed By: #### H GBHCT #### [facility] [address] [place] [address] Dr. Raimundo Estrada Lymphocytes/100 WBC (Bld) 20.8 % Normal 20.5-60.0 [facility] Comment on above: Performed By: #### H GBHCT #### [facility] [address] [place] [address] Dr. Raimundo Estrada MANUAL DIFF REQ NO Normal [facility] Comment on above: Performed By: #### H GBHCT #### [facility] [address] [place] [address] Dr. Raimundo Estrada MCH (RBC) [Entitic mass] 31.8 pg Normal 25.9-34.0 [facility] Comment on above: Performed By: #### H GBHCT #### [facility] [address] [place] [address] Dr. Raimundo Estrada MCHC (RBC) [Mass/Vol] 33.3 g/dL Normal 29.9-35.2 [facility] Comment on above: Performed By: #### H GBHCT #### [facility] [address] [place] [address] Dr. Riamundo Estrada MCV (RBC) [Entitic vol] 95.3 fL Critically high 80.0-94.0 [facility] Comment on above: Performed By: #### H GBHCT #### [facility] [address] [address] [address] Raimundo Estrada MONO # 0.8 103/ul Normal 0.3-0.8 [facility] Comment on above: Performed By: #### H GBHCT #### [facility] [address] [address] [address] Raimundo Estrada Monocytes/100 WBC (Bld) 9.7 % Normal 1.7-12.0 [facility] Comment on above: Performed By: #### H GBHCT #### [facility] [address] [place] [address] Dr. Raimundo Estrada NEUT # 5.2 103/ul Normal 1.4-6.5 [facility] Comment on above: Performed By: #### H GBHCT #### [facility] [address] [place] [address] Dr. Raimundo Estrada Neutrophils/100 WBC (Bld) 66.1 % Normal 43.0-75.0 [facility] Comment on above: Performed By: #### H GBHCT #### [facility] [address] [place] [address] Dr. Raimundo Estrada Platelet mean volume (Bld) [Entitic vol] 10.1 fL Normal 9.5-13.5 [facility] Comment on above: Performed By: #### H GBHCT #### [facility] [address] [place] [address] Dr. Raimundo Estrada PLT 189 103/ul Normal 150-[address] [facility] Comment on above: Performed By: #### H GBHCT #### [facility] [address] [place] [address] Dr. Raimundo Estrada RBC 4.22 106/ul Critically low 4.70-6.10 [facility] Comment on above: Performed By: #### H GBHCT #### [facility] [address] [place] [address] Dr. Raimundo Estrada WBC 7.9 103/ul Normal 4.0-11.0 [facility] Comment on above: Performed By: #### H GBHCT #### [facility] [address] [place] [address] Dr. Raimundo Estrada FREE T3on 09-11-2022 FREE T3 2.85 pg/mlL Normal 2.18-3.98 [facility] Comment on above: Performed By: #### T SH, FT3, LIVER, BMP, LIPID #### [facility] [address] [address] [address] Raimundo Estrada FREE T4on 09-11-2022 Free T4 [Mass/Vol] 0.85 ng/dL Normal 0.76-1.46 [facility] Comment on above: Performed By: #### H GBHCT #### [facility] [address] [place] [address] Dr. Raimundo Estrada GLYCOHEMOGLOBIN A1Con 2021 ADA RECOMMENDATION SEE BELOW Normal [facility] Comment on above: Result Comment: ADA RECOMMENDED LIMIT 4.0 - 6.0 ADA THERAPEUTIC TARGET < 7.0 ACTION SUGGESTED > 7.0 Performed By: #### H GBHCT #### [facility] [address] [place] [address] Dr. Raimundo Estrada Glucose [Mass/Vol] 111 mg/dL Normal [facility] Comment on above: Performed By: #### H GBHCT #### [facility] [address] [place] [address] Dr. Raimundo Estrada HbA1c (Bld) [Mass fraction] 5.5 % Normal 4.5-6.2 [facility] Comment on above: Performed By: #### H GBHCT #### [facility] [address] [place] [address] Dr. Raimundo Estrada LIPID PROFILEon 09-11-2022 CHOL-HDL RATIO NORM SEE BELOW Normal [facility] Comment on above: Result Comment: 3.3 - 4.4 LOW RISK 4.4 - 7.1 AVERAGE RISK 7.1 - 11.0 MODERATE RISK >11.0 HIGH RISK Performed By: #### T SH, FT3, LIVER, BMP, LIPID #### [facility] [address] [address] [address] Raimundo Estrada Cholesterol [Mass/Vol] 129 mg/dL Normal <=200 [facility] Comment on above: Performed By: #### T SH, FT3, LIVER, BMP, LIPID #### [facility] [address] [address] [address] Raimundo Estrada Cholesterol in HDL [Mass/Vol] 62 mg/dL Critically high 40-[address] [facility] Comment on above: Performed By: #### T SH, FT3, LIVER, BMP, LIPID #### [facility] [address] [address] [address] Raimundo Estrada Cholesterol in LDL [Mass/Vol] 53.4 mg/dL Normal [facility] Comment on above: Performed By: #### T SH, FT3, LIVER, BMP, LIPID #### [facility] [address] [address] [address] Raimundo Estrada Cholesterol.total/Ch olesterol in HDL [Mass ratio] 2.1 {ratio} Normal [facility] Comment on above: Performed By: #### T SH, FT3, LIVER, BMP, LIPID #### [facility] [address] [address] [address] Raimundo Estrada HDL NORMAL > or = 60 mg/dl - LO W CARDIOVASCULAR RISK <40 mg/dl - HIGH CARDIOVASCULAR RISK Normal [facility] Comment on above: Performed By: #### T SH, FT3, LIVER, BMP, LIPID #### [facility] [address] [address] [address] Raimunod Estrada LDL CALC NORMAL SEE BELOW Normal [facility] Comment on above: Result Comment: <100 mg/dl OPTIMAL 100 - 129 mg/dl NEAR OR ABOVE OPTIMAL 130 - 159 mg/dl BORDERLINE HIGH 160 - 189 mg/dl HIGH >190 mg/dl VERY HIGH Performed By: #### T SH, FT3, LIVER, BMP, LIPID #### [facility] [address] [address] [address] Raimundo Estrada Triglyceride [Mass/Vol] 68 mg/dL Normal <=150 [facility] Comment on above: Performed By: #### T SH, FT3, LIVER, BMP, LIPID #### [facility] [address] [place] [address] Dr. Raimundo Estrada VLDL CALC 13.6 mg/dL Normal [facility] Comment on above: Performed By: #### T SH, FT3, LIVER, BMP, LIPID #### [facility] [address] [place] [address] Dr. Raimundo Estrada LIVER PROFILEon 09-11-2022 Albumin [Mass/Vol] 3.8 g/dL Normal 3.4-5.0 [facility] Comment on above: Performed By: #### T SH, FT3, LIVER, BMP, LIPID #### [facility] [address] [place] [address] Dr. Raimundo Estrada Albumin/Globulin [Mass ratio] 1.0 {ratio} Normal [facility] Comment on above: Performed By: #### T SH, FT3, LIVER, BMP, LIPID #### [facility] [address] [place] [address] Dr. Raimundo Estrada ALP [Catalytic activity/Vol] 103 U/L Normal 46-116 [facility] Comment on above: Performed By: #### T SH, FT3, LIVER, BMP, LIPID #### [facility] [address] [place] [address] Dr. Raimundo Estrada ALT [Catalytic activity/Vol] 46 U/L Normal 16-63 [facility] Comment on above: Performed By: #### T SH, FT3, LIVER, BMP, LIPID #### [facility] [address] [place] [address] Dr. Raimundo Estrada AST [Catalytic activity/Vol] 35 U/L Normal 15-37 [facility] Comment on above: Performed By: #### T SH, FT3, LIVER, BMP, LIPID #### [facility] [address] [place] [address] Dr. Raimundo Estrada BILI, CONJUGATED 0.2 mg/dL Normal 0.0-0.2 [facility] Comment on above: Performed By: #### T SH, FT3, LIVER, BMP, LIPID #### [facility] [address] [place] [address] Dr. Raimundo Estrada Bilirubin [Mass/Vol] 0.7 mg/dL Normal 0.2-1.0 [facility] Comment on above: Performed By: #### T SH, FT3, LIVER, BMP, LIPID #### [facility] [address] [place] [address] Dr. Raimundo Estrada Globulin (S) [Mass/Vol] 3.8 g/dL Normal [facility] Comment on above: Performed By: #### T SH, FT3, LIVER, BMP, LIPID #### [facility] [address] [place] [address] Dr. Raimundo Estrada Protein [Mass/Vol] 7.6 g/dL Normal 6.4-8.2 [facility] Comment on above: Performed By: #### T SH, FT3, LIVER, BMP, LIPID #### [facility] [address] [place] [address] Dr. Raimundo Estrada PROF CHEM 8 (BAS METB)on Anion gap [Moles/Vol] 13.9 mmol/L Normal [facility] Comment on above: Performed By: #### T SH, FT3, LIVER, BMP, LIPID #### [facility] [address] [place] [address] Dr. Raimundo Estrada Calcium [Mass/Vol] 9.3 mg/dL Normal 8.5-10.1 [facility] Comment on above: Performed By: #### T SH, FT3, LIVER, BMP, LIPID #### [facility] [address] [place] [address] Dr. Raimundo Estrada Chloride [Moles/Vol] 104 mmol/L Normal 98-[address] [facility] Comment on above: Performed By: #### T SH, FT3, LIVER, BMP, LIPID #### [facility] [address] [place] [address] Dr. Raimundo Estrada CO2 [Moles/Vol] 28.6 mmol/L Normal 21.0-32.0 [facility] Comment on above: Performed By: #### T SH, FT3, LIVER, BMP, LIPID #### [facility] [address] [address] [address] Raimundo Estrada Creatinine [Mass/Vol] 0.77 mg/dL Normal 0.70-1.30 [facility] Comment on above: Performed By: #### T SH, FT3, LIVER, BMP, LIPID #### [facility] [address] [place] [address] Dr. Raimundo Estrada EGFR-AF MARSHALLESE >60 Normal >=60 [facility] Comment on above: Performed By: #### T SH, FT3, LIVER, BMP, LIPID #### [facility] [address] [place] [address] Dr. Raimundo Estrada EGFR-NON AF MARSHALLESE >60 Normal >=60 [facility] Comment on above: Performed By: #### T SH, FT3, LIVER, BMP, LIPID #### [facility] [address] [place] [address] Dr. Raimundo Estrada Glucose [Mass/Vol] 90 mg/dL Normal 74-106 [facility] Comment on above: Performed By: #### T SH, FT3, LIVER, BMP, LIPID #### [facility] [address] [place] [address] Dr. Raimundo Estrada Potassium [Moles/Vol] 4.5 mmol/L Normal 3.5-5.1 [facility] Comment on above: Performed By: #### T SH, FT3, LIVER, BMP, LIPID #### [facility] [address] [place] [address] Dr. Raimundo Estrada Sodium [Moles/Vol] 142 mmol/L Normal 136-145 [facility] Comment on above: Performed By: #### T SH, FT3, LIVER, BMP, LIPID #### [facility] [address] [place] [address] Dr. Raimundo Estrada Urea nitrogen [Mass/Vol] 22.0 mg/dL Critically high 7.0-18.0 [facility] Comment on above: Performed By: #### T SH, FT3, LIVER, BMP, LIPID #### [facility] [address], [place] [address] Dr. Raimundo Estrada Urea nitrogen/Creatinine [Mass ratio] 28.6 mg/mg Normal [facility] Comment on above: Performed By: #### T SH, FT3, LIVER, BMP, LIPID #### [facility] [address], [place] [address] Dr. Raimundo Estrada TSHon 09-11-2022 TSH 1.375 uIU/mL Normal 0.358-3.74 0 [facility] Comment on above: Performed By: #### T SH, FT3, LIVER, BMP, LIPID #### [facility] [address] [address] [address] Raimundo Estrada VITAMIN B12on 09-11-2022 Cobalamin (Vitamin B12) [Mass/Vol] 635.0 pg/mL Normal 193.0-986. 0 [facility] Comment on above: Performed By: #### L IPID #### [facility] [address] [address] [address] Raimundo Estrada General Surgery Office/Clini c [...] History Ongoing Asthma BMI 25.0-25.9,adult CAD in [place] artery DDD (degenerative disc disease), lumbar Depression [...] Tab, 25 mg= 1 tab(s), Oral, BID [place] 5/325 Tab, 1 tab(s), Oral, BID Protonix [...] Coronary artery disease: Mother and Father. Normal [facility] Comment on above: Result Comment: Elec tronically [...] sigmoid polyp that was not retrieved. Normal [facility] Pathology Noteon 06-28-2022 Pathology Note [id number]:127 Normal [facility] Outside Colonoscopyon 2021 Outside Colonoscopy [id number]#[id number]:127 Normal [facility] HEMOGLOBIN AND HEMATOCRITon 06-26-2022 Hematocrit (Bld) [Volume fraction] 44.2 % Normal 42.0-54.0 [facility] Comment on above: Performed By: #### H GBHCT #### [facility] [address] [place] [address] Dr. Raimundo Estrada Hemoglobin (Bld) [Mass/Vol] 15.0 g/dL Normal 14.0-18.0 [facility] Comment on above: Performed By: #### H GBHCT #### [facility] [address] [place] [address] Dr. Raimundo Estrada Lab Reportson 06-24-2022 Lab Reports [id number]:127 Normal [facility] Covid-19 PCR (CVDTBH)on 06-06 SARS-CoV-2 (COVID-19) RNA DAHLIA+probe Ql (Unsp spec) Not detected Normal NOT DETECTED [facility] Comment on above: Result Comment: This test is not yet approved or cleared by the [place] FDA. When there are no FDA-approved or cleared tests available, and other criteria are met, FDA can make tests available under an emergency access mechanism called an Emergency Use Authorization (EUA). The EUA for this test is supported by the Administration Dean of Health and Human Service's (HHS's) declaration [...] By: #### H GBHCT #### [facility] [address] [address] [address] Raimundo Estrada Consent for Procedure/Surger yon 06-03-2022 Consent for Procedure/Surgery [id number]:127 Normal [facility] Pre-Certification Formon Pre-Certification Form [id number]#[id number]:127 [facility] Ambulatory Visit Summaryon 0 05-31-2022 Ambulatory [...] prescribing physician if questions or concerns acetaminophen-hydrocodone ([place] 5/325 Tab) albuterol (albuterol HFA 90 mcg/inh [...] Epigastric pain Hematemesis Refills: 3 Pickup at [facility] Unchanged acetaminophen-hydrocodone ([place] 5/ 325 Tab) 1 Tablets By Mouth [...] physician if questions or concerns Pharmacy Information [facility]: [address] [place], [place] [id number] [phone] Allergies No Known Allergies No Known Medication Allergies Problems Ongoing - Any problem that you are currently receiving treatment for. Asthma BMI 25.0-25.9,adult CAD in [place] artery DDD (degenerative disc disease), lumbar Depression Epigastric pain Gouty arthritis Hematemesis Iron deficiency anemia Vitamin D deficiency Normal [facility] Lab Reportson 05-30-2022 Lab Reports [id number]:127 Normal [facility] Lab Reportson 05-23-2022 Lab Reports [id number]#[id number]:127 Normal [facility] Lab Reports [id number]#[id number]:127 Normal [facility] Physician Referralon Physician Referral [id number]#[id number]:127 Normal [facility] CBC AUTO DIFFon 04-03-2022 BASO # 0.0 103/ul Normal 0.0-0.1 [facility] Comment on above: Performed By: #### C BC #### [facility] [address] [address] [address] Raimundo Estrada Basophils/100 WBC (Bld) 0.3 % Normal 0.2-2.0 [facility] Comment on above: Performed By: #### C BC #### [facility] [address] [place] [address] Dr. Raimundo Estrada EO # 0.1 103/ul Normal 0.0-0.7 [facility] Comment on above: Performed By: #### C BC #### [facility] [address] [address] [address] Raimundo Estrada Eosinophils/100 WBC (Bld) 0.7 % Critically low 0.9-7.0 [facility] Comment on above: Performed By: #### C BC #### [facility] [address] [address] [address] Raimundo Estrada Erythrocyte distribution width (RBC) [Ratio] 14.4 % Normal 11.0-15.0 [facility] Comment on above: Performed By: #### C BC #### [facility] [address] [address] [address] Raimundo Estrada Hematocrit (Bld) [Volume fraction] 38.2 % Critically low 42.0-54.0 [facility] Comment on above: Performed By: #### C BC #### [facility] [address] [place] [address] Dr. Raimundo Estrada Hemoglobin (Bld) [Mass/Vol] 12.8 g/dL Critically low 14.0-18.0 [facility] Comment on above: Performed By: #### C BC #### [facility] [address] [place] [address] Dr. Raimundo Estrada IG # 0.04 10e3/ul Critically high 0.00-0.03 [facility] Comment on above: Performed By: #### C BC #### [facility] [address] [place] [address] Dr. Raimundo Estrada IG % 0.3 % Normal 0.0-0.5 [facility] Comment on above: Performed By: #### C BC #### [facility] [address] [place] [address] Dr. Raimundo Estrada LYMPH # 1.1 103/ul Critically low 1.2-3.8 [facility] Comment on above: Performed By: #### C BC #### [facility] [address] [place] [address] Dr. Raimundo Estrada Lymphocytes/100 WBC (Bld) 9.4 % Critically low 20.5-60.0 [facility] Comment on above: Performed By: #### C BC #### [facility] [address] [place] [address] Dr. Raimundo Estrada MANUAL DIFF REQ NO Normal [facility] Comment on above: Performed By: #### C BC #### [facility] [address] [place] [address] Dr. Raimundo Estrada MCH (RBC) [Entitic mass] 30.7 pg Normal 25.9-34.0 [facility] Comment on above: Performed By: #### C BC #### [facility] [address] [place] [address] Dr. Raimundo Estrada MCHC (RBC) [Mass/Vol] 33.5 g/dL Normal 29.9-35.2 [facility] Comment on above: Performed By: #### C BC #### [facility] [address] [address] [address] Raimundo Estrada MCV (RBC) [Entitic vol] 91.6 fL Normal 80.0-94.0 [facility] Comment on above: Performed By: #### C BC #### [facility] [address] [address] [address] Raimundo Estrada MONO # 0.7 103/ul Normal 0.3-0.[address] [facility] Comment on above: Performed By: #### C BC #### [facility] [address] [place] [address] Dr. Raimundo Estrada Monocytes/100 WBC (Bld) 5.8 % Normal 1.7-12.0 [facility] Comment on above: Performed By: #### C BC #### [facility] [address] [place] [address] Dr. Raimundo Estrada NEUT # 9.6 103/ul Critically high 1.4-6.5 [facility] Comment on above: Performed By: #### C BC #### [facility] [address] [place] [address] Dr. Raimundo Estrada Neutrophils/100 WBC (Bld) 83.5 % Critically high 43.0-75.[address] [facility] Comment on above: Performed By: #### C BC #### [facility] [address] [place] [address] Dr. Raimundo Estrada Platelet mean volume (Bld) [Entitic vol] 9.3 fL Critically low 9.5-13.[address] [facility] Comment on above: Performed By: #### C BC #### [facility] [address] [place] [address] Dr. Raimundo Estrada PLT 165 103/ul Normal 150-[address] [facility] Comment on above: Performed By: #### C BC #### [facility] [address] [place] [address] Dr. Raimundo Estrada RBC 4.17 106/ul Critically low 4.70-6.10 [facility] Comment on above: Performed By: #### C BC #### [facility] [address] [place] [address] Dr. Raimundo Estrada WBC 11.6 103/ul Critically high 4.0-11.0 [facility] Comment on above: Performed By: #### C BC #### [facility] [address] [place] [address] Dr. Raimundo Estrada IRONon 04-03-2022 Iron [Mass/Vol] 63.0 ug/dL Critically low 65.0-175.0 [facility] Comment on above: Performed By: #### I HUBERT #### [facility] [address] [place] [address] Dr. Raimundo Estrada PROTIMEon 04-03-2022 INR Coag (PPP) [Relative time] 0.98 {INR} Normal [facility] Comment on above: Performed By: #### H GBHCT #### [facility] [address] [place] [address] Dr. Raimundo Estrada INR GUIDELINES SEE BELOW Normal [facility] Comment on above: Result Comment: KEIRA RED INR: 2.0 - 3.0 CONDITIONS NOT LISTED BELOW 2.5 - 3.5 FOR PROSTHETIC HEART VALVE REPLACEMENT 2.5 - 3.5 RECURRENT THROMBOSIS Performed By: #### H GBHCT #### [facility] [address] [place] [address] Dr. Raimundo Estrada PT Coag (PPP) [Time] 10.6 s Normal 9.0-11.6 [facility] Comment on above: Performed By: #### H GBHCT #### [facility] [address] [place] [address] Dr. Raimundo Estrada PTTon 04-03-2022 aPTT Coag (Bld) [Time] 26.2 s Normal 22.3-36.2 [facility] Comment on above: Performed By: #### H GBHCT #### [facility] [address] [place] [address] Dr. Raimundo Estrada Sedimentation Rateon 022 Sed Rate 10 [facility] LIPID PROFILEon 03-12-2022 CHOL-HDL RATIO NORM SEE BELOW Normal [facility] Comment on above: Result Comment: 3.3 - 4.4 LOW RISK 4.4 - 7.1 AVERAGE RISK 7.1 - 11.0 MODERATE RISK >11.0 HIGH RISK Performed By: #### L IPID #### [facility] [address] [address] [address] Raimundo Estrada Cholesterol [Mass/Vol] 126 mg/dL Normal <=200 [facility] Comment on above: Performed By: #### L IPID #### [facility] [address] [address] [address] Raimundo Estrada Cholesterol in HDL [Mass/Vol] 68 mg/dL Critically high 40-60 [facility] Comment on above: Performed By: #### L IPID #### [facility] [address] [address] [address] Raimundo Estrada Cholesterol in LDL [Mass/Vol] 52.0 mg/dL Normal [facility] Comment on above: Performed By: #### L IPID #### [facility] [address] [address] [address] Raimundo Estrada Cholesterol.total/Ch olesterol in HDL [Mass ratio] 1.9 {ratio} Normal [facility] Comment on above: Performed By: #### L IPID #### [facility] [address] [address] [address] Raimundo Estrada HDL NORMAL > or = 60 mg/dl - LO W CARDIOVASCULAR RISK <40 mg/dl - HIGH CARDIOVASCULAR RISK Normal [facility] Comment on above: Performed By: #### L IPID #### [facility] [address] [address] [address] Raimundo Estrada LDL CALC NORMAL SEE BELOW Normal [facility] Comment on above: Result Comment: <100 mg/dl OPTIMAL 100 - 129 mg/dl NEAR OR ABOVE OPTIMAL 130 - 159 mg/dl BORDERLINE HIGH 160 - 189 mg/dl HIGH >190 mg/dl VERY HIGH Performed By: #### L IPID #### [facility] [address] [id number] [address] Raimundo Estrada Triglyceride [Mass/Vol] 30 mg/dL Normal <=150 [facility] Comment on above: Performed By: #### L IPID #### [facility] [address], [place] [address] Dr. Raimundo Estrada VLDL CALC 6.0 mg/dL Normal [facility] Comment on above: Performed By: #### L IPID #### [facility] [address], [place] [address] Dr. Raimundo Estrada CBC Auto DifferentialOrdered By: Julian Dougherty on 03-09-2021 Absolute Eos # <0.03 [employer] [facility] Work Phone: Absolute Immature Granulocyte 0.04 [employer] Work Phone: Absolute Lymph # 1.49 [employer] [facility] Work Phone: Absolute Pitt # 1.27 High [employer] [facility] Work Phone: Basophils (Bld) [#/Vol] 0.03 10*3/uL [employer] Work Phone: Basophils/100 WBC (Bld) 0 % 0 - 2 % [employer] Phone: Differential Type NOT REPORTED [employer] Phone: Eosinophils/100 WBC (Bld) 0 % Low 1 - 4 % [employer] Work Phone: Hematocrit (Bld) [Volume fraction] 41.8 % 40.7 - 50.3 % [employer] Work Phone: Hemoglobin.gastroint estinal spec 1 Ql (Stl) 14.3 g/dL 13.0 - 17.0 g/dL [employer] Work Phone: Immature granulocytes/100 WBC (Bld) 0 % 0 [employer] Work Phone: Interpretation and review of laboratory results Abnormal [employer] Work Phone: Lymphocytes/100 WBC (Bld) 14 % Low 24 - 43 % [employer] Phone: MCH (RBC) [Entitic mass] 30.6 pg 25.2 - 33.5 pg [employer] Phone: MCHC (RBC) [Mass/Vol] 34.2 g/dL 28.4 - 34.8 g/dL [employer] Phone: MCV (RBC) [Entitic vol] 89.5 fL 82.6 - 102.9 fL [employer] Phone: Monocytes/100 WBC (Bld) 12 % 3 - 12 % [employer] Phone: NRBC Automated 0.0 0.0 per 100 WBC [employer] Phone: Platelet distribution width (Bld) [Ratio] 13.2 % 11.8 - 14.4 % [employer] Phone: Platelet Estimate NOT REPORTED [employer] Phone: Platelet mean volume (Bld) [Entitic vol] 10.3 fL 8.1 - 13.5 fL [employer] Phone: Platelets (Bld) [#/Vol] 169 10*3/uL [employer] Phone: RBC (Bld) [#/Vol] 4.67 10*6/uL 4.21 - 5.77 m/uL [employer] Phone: RBC (Bld) [#/Vol] NOT REPORTED [employer] Phone: Segmented neutrophils/100 WBC (Bld) 74 % High 36 - 65 % [employer] Phone: Segs Absolute 7.59 [employer] Work Phone: WBC (Bld) [#/Vol] 10.4 10*3/uL [employer] Phone: WBC (Bld) [#/Vol] NOT REPORTED [employer] Phone: [employer] Phone: Sedimentation RateOrdered By : Julian Dougherty on 03-09-2021 Interpretation and review of laboratory results Abnormal [employer] Phone: Sed Rate 63 mm High 0 - 20 mm [employer] Phone: [employer] Phone: Uric AcidOrdered By: Julian Dougherty on 03-09-2021 Urate [Mass/Vol] 4.3 mg/dL 3.4 - 7.0 mg/dL [employer] Phone: [employer] Phone: XR WRIST RIGHT (MIN 3 VIEWS) Ordered By: Julian Dougherty on 03-09-2021 Arthritic changes an d mild soft tissue swelling without acute osseous abnormality. [employer] Phone: EXAMINATION: 3 XRAY VIEWS OF THE [...] No acute fracture, or dislocation is noted. [employer] Phone: Mauri, Mhpn Incoming R adiant Results From [facility] at work/[employer] - 03/09/2021 10:56 AM EDT EXAMINATION: 3 [...] soft tissue swelling without acute osseous abnormality. [employer] Phone: [employer] Phone: VL JR CAROTID BILATERALon 1 10-17-2019 Renate [place] [facility] V[facility] Carotid Procedure Patient Name ALVA Date of Study 08/16/2020 NOEL Vaca Date of 1960 Gender Male Age 59 year(s) Race Room Number Corporate ID # [id number] Patient MR # [id number] Line Installation Supervisor KEVON Tobar Interpreting Physician Mike Centeno MD [...] left side. - Additional Measurements:ICAPSV/CCAPSV 0.76.ICAEDV/CCAEDV 1.49. [facility]- [place], [place] Mauri, pn Incoming C ardio Results From Cp[facility]/Ge - 08/17/2020 9:08 AM [facility] Vascular Carotid Procedure Patient Name ALVA Date of Study 08/16/2020 NOEL Vaca Date of 1960 Gender Male Age 59 year(s) Race Room Number Corporate ID # [id number] Patient MR # [id number] Line Installation Supervisor KEVON Tobar Interpreting Physician Mike Centeno MD [...] left side. - Additional Measurements:ICAPSV/CCAPSV 0.76.ICAEDV/CCAEDV 1.49. [place] CBC auto differentialon 10-10 08-2019 Basophils (Bld) [#/Vol] 0.04 10*3/uL [place] Basophils/100 WBC (Bld) 0 % 0 - 2 % [place] Differential Type NOT REPORTED [place] Eosinophils (Bld) [#/Vol] 0.04 10*3/uL [place] Eosinophils/100 WBC (Bld) 0 % Low 1 - 4 % [place] Erythrocyte distribution width (RBC) [Ratio] 13.9 % 11.8 - 14.4 % [place] Hematocrit (Bld) [Volume fraction] 42.7 % 40.7 - 50.3 % [place] Hemoglobin (Bld) [Mass/Vol] 14.3 g/dL 13 - 17 g/dL [place] Immature granulocytes (Bld) [#/Vol] 0.03 10*3/uL [place] Immature granulocytes (Bld) [#/Vol] 0 % 0 [place] Interpretation and review of laboratory results Abnormal [place] Lymphocytes (Bld) [#/Vol] 1.95 10*3/uL [place] Lymphocytes/100 WBC (Bld) 20 % Low 24 - 43 % [place] MCH (RBC) [Entitic mass] 31.2 pg 25.2 - 33.5 pg [place] MCHC (RBC) [Mass/Vol] 33.5 g/dL 28.4 - 34.8 g/dL [place] MCV (RBC) [Entitic vol] 93.0 fL 82.6 - 102.9 fL [place] Monocytes (Bld) [#/Vol] 0.96 10*3/uL [place] Monocytes/100 WBC (Bld) 10 % 3 - 12 % [place] Platelet mean volume (Bld) [Entitic vol] 10.2 fL 8.1 - 13.5 fL [place] Platelets (Bld) [#/Vol] NOT REPORTED [place] Platelets (Bld) [#/Vol] 189 10*3/uL [place] RBC (Bld) [#/Vol] 4.59 10*6/uL 4.21 - 5.77 m/uL [place] RBC morphology finding Nom (Bld) NOT REPORTED [place] Segmented neutrophils/100 WBC (Bld) 70 % High 36 - 65 % [place] Segs Absolute 7.00 [place] WBC (Bld) [#/Vol] 10.0 10*3/uL [place] WBC (Bld) [#/Vol] 0.0 10*3/uL 0.0 per 100 WBC [place] WBC Morphology NOT REPORTED [place] CT ABDOMEN PELVIS WO CONTRAS T [...] to suggest a definite acute inflammatory process. [place] EXAMINATION: [facility] ABDOMEN AND PELVIS WITHOUT CONTRAST 07/18/2020 8:41 [...] and moderate canal stenosis. No pars defects. [facility]- [place] Amuri, Mhpn Incoming R adiant Results From [facility] at work/[employer] - 07/18/2020 9:12 AM EDT EXAMINATION: CT [...] to suggest a definite acute inflammatory process. [place] Comprehensive Metabolic Pane pat 07-18-2020 Albumin [Mass/Vol] 4.3 g/dL 3.5 - 5.2 g/dL [place] Albumin/Globulin [Mass ratio] 1.5 {ratio} [place] ALP [Catalytic activity/Vol] 71 U/L 40 - 129 U/L [place] ALT [Catalytic activity/Vol] 26 U/L 5 - 41 U/L [place] Anion gap [Moles/Vol] 13 mmol/L 9 - 17 mmol/L [place] AST [Catalytic activity/Vol] 26 U/L <40 [place] Bilirubin Ql (U) 1.44 mg/dL High 0.3 - 1.2 mg/dL [place] Bun/Cre Ratio 28 High [place] Calcium [Mass/Vol] 9.4 mg/dL 8.6 - 10. 4 mg/dL [place] Chloride [Moles/Vol] 103 mmol/L 98 - 10 7 mmol/L [place] CO2 [Moles/Vol] 23 mmol/L 20 - 31 mmol/L [place] Creatinine [Mass/Vol] 0.79 mg/dL 0.7 - 1.2 mg/dL [place] GFR >60 >60 mL/min [place] GFR Non- >60 >60 mL/min [place] Glucose [Mass/Vol] 93 mg/dL 70 - 99 mg/dL [place] Interpretation and review of laboratory results Abnormal [place] Potassium [Moles/Vol] 3.9 mmol/L 3.7 - 5.3 mmol/L [place] Protein [Mass/Vol] 7.1 g/dL 6.4 - 8.3 g/dL [place] Sodium [Moles/Vol] 139 mmol/L 135 - 144 mmol/L [place] Urea nitrogen [Mass/Vol] 22 mg/dL High 6 - 20 mg/dL [place] EKG 12 [place] 07-18-2020 Atrial Rate 58 BPM [place] P [place] 45 degrees [place] P-R Interval 138 ms [place] Q-T Interval 478 ms [place] QRS Duration 74 ms [place] QTc Calculation ([place]az[place]) 469 ms [place] R [place] 49 degrees [place] T [place] 129 degrees [place], [place] Ventricular Rate 58 BPM [place] Sinus bradycardia T wave abnormality, consider lateral ischemia Prolonged QT Abnormal ECG When compared with ECG of 14-JUN-2019 10:26, Nonspecific T wave abnormality has replaced inverted T waves in Inferior leads T wave inversion less evident in Anterior leads Confirmed by JW KAY ([id number]) on 07/18/2020 11:37:03 AM [place], [place] Mauri, Mhpn In[place] [facility] [place]18[place] 11:37 AM EDT Sinus bradycardia T wave abnormality, consider lateral ischemia Prolonged QT Abnormal ECG When compared with ECG of 14-JUN-2019 10:26, Nonspecific T wave abnormality has replaced inverted T waves in Inferior leads T wave inversion less evident in Anterior leads Confirmed by JW KAY ([id number]) on 07/18/2020 11:37:03 AM [place] Lipaseon 07-18-2020 Lipase [Catalytic activity/Vol] 30 U/L 13 - 60 U/L [place] Metabolic Panelon 07-18-2020 GFR/1.73 sq M predicted among non-blacks MDRD (S/P/Bld) [Vol rate/Area] [place], [place] Comment on above: Stage 1: Some [...] body mass. Additional eGFR calculator available at: http://www.[employer]/multiple_crcl_2012.htm Microscopic Urinalysison Amorphous, UA NOT REPORTED None [place], [place] Bacteria, UA NOT REPORTED None [place], [place] Casts UA NOT REPORTED /LPF [place] Crystals, UA NOT REPORTED None /HPF [place] Epithelial Cells UA 0 TO 2 [place] Mucus, UA NOT REPORTED None [place] Other Observations UA NOT REPORTED NOT REQ. [place] RBC (U) [#/Vol] None [place] Renal Epithelial, UA NOT REPORTED 0 /HPF [place] Trichomonas, UA NOT REPORTED None [place], [place] WBC, UA 0 TO 2 [place] Yeast, UA NOT REPORTED None [place] Troponinon 07-18-2020 Troponin I.cardiac [Mass/Vol] NOT REPORTED [place] Troponin T.cardiac [Mass/Vol] NOT REPORTED <0.03 ng/mL [place] Troponin, High Sensitivity 18 ng/L 0 - 22 ng/L [place] Comment on above: High Sensitivity Troponin values cannot be compared with other Troponin methodologies. Patients with high levels of Biotin oral intake (i.e >5mg/day) may have falsely decreased Troponin levels. Samples collected within 8 hours of biotin intake may require additional information for diagnosis. Troponin I.cardiac [Mass/Vol] NOT REPORTED [place] Troponin T.cardiac [Mass/Vol] NOT REPORTED <0.03 ng/mL [place] Troponin, High Sensitivity 21 ng/L 0 - 22 ng/L [place] Comment on above: High Sensitivity Troponin values cannot be compared with other Troponin methodologies. Patients with high levels of Biotin oral intake (i.e >5mg/day) may have falsely decreased Troponin levels. Samples collected within 8 hours of biotin intake may require additional information for diagnosis. Urinalysis Reflex to Culture on 07-18-2020 Bilirubin Urine Negative NEGATIVE [place] Color, UA YELLOW YELLOW [place], [place] Glucose, Ur Negative NEGATIVE [place] Interpretation and review of laboratory results Abnormal [place] Ketones Ql (U) 1+ Abnormal NEGATIVE [place], [place] Leukocyte esterase Test strip Ql (U) Negative NEGATIVE [place] Nitrite, Urine Negative NEGATIVE [place] pH, UA 7.0 [place] Protein (U) [Mass/Vol] Negative NEGATIVE [place] Specific [place], UA 1.020 [place] Turbidity UA CLEAR CLEAR [place] Urinalysis Comments NOT REPORTED [place] Urine Hgb Negative NEGATIVE [place] Urobilinogen, Urine Normal Normal [place] XR CHEST (SINGLE VIEW FRONTA L)on 07-18-2020 Mauri, Mhpn Incoming R adiant Results From [facility] - 07/18/2020 8:54 AM EDT EXAMINATION: ONE XRAY VIEW OF THE CHEST 07/18/2020 8:44 am COMPARISON: June 14, 2019 HISTORY: ORDERING SYSTEM PROVIDED HISTORY: epig pain TECHNOLOGIST PROVIDED HISTORY: epig pain FINDINGS: Is no evidence of focal infiltrate, effusion, pneumothorax. Heart mediastinum appear normal. Visualized bony thorax shows no acute abnormality. IMPRESSION: No acute findings of the chest, stable when compared to previous. [place] EXAMINATION: ONE XRA Y VIEW OF THE CHEST 07/18/2020 8:44 am COMPARISON: June 14, 2019 HISTORY: ORDERING SYSTEM PROVIDED HISTORY: epig pain TECHNOLOGIST PROVIDED HISTORY: epig pain FINDINGS: Is no evidence of focal infiltrate, effusion, pneumothorax. Heart mediastinum appear normal. Visualized bony thorax shows no acute abnormality. [place] No acute findings of the chest, stable when compared to previous. [place] CBC Auto Differentialon Basophils (Bld) [#/Vol] 0.05 10*3/uL [place] Basophils/100 WBC (Bld) 1 % 0 - 2 % [place] Differential Type NOT REPORTED [place] Eosinophils (Bld) [#/Vol] 10*3/uL [place] Eosinophils/100 WBC (Bld) 0 % Low 1 - 4 % [place] Erythrocyte distribution width (RBC) [Ratio] 12.9 % 11.8 - 14.4 % [place] Hematocrit (Bld) [Volume fraction] 45.7 % 40.7 - 50.3 % [place] Hemoglobin (Bld) [Mass/Vol] 15.5 g/dL 13 - 17 g/dL [place] Immature granulocytes (Bld) [#/Vol] 10*3/uL [place] Immature granulocytes (Bld) [#/Vol] 0 % 0 [place] Interpretation and review of laboratory results Abnormal [place] Lymphocytes (Bld) [#/Vol] 1.83 10*3/uL [place] Lymphocytes/100 WBC (Bld) 19 % Low 24 - 43 % [place] MCH (RBC) [Entitic mass] 31.1 pg 25.2 - 33.5 pg [place] MCHC (RBC) [Mass/Vol] 33.9 g/dL 28.4 - 34.8 g/dL [place] MCV (RBC) [Entitic vol] 91.6 fL 82.6 - 102.9 fL [place] Monocytes (Bld) [#/Vol] 0.86 10*3/uL [place] Monocytes/100 WBC (Bld) 9 % 3 - 12 % [place] Platelet mean volume (Bld) [Entitic vol] 9.7 fL 8.1 - 13.5 fL [place] Platelets (Bld) [#/Vol] 195 10*3/uL [place] Platelets (Bld) [#/Vol] NOT REPORTED [place] RBC (Bld) [#/Vol] 4.99 10*6/uL 4.21 - 5.77 m/uL [place] RBC morphology finding Nom (Bld) NOT REPORTED [place] Segmented neutrophils/100 WBC (Bld) 71 % High 36 - 65 % [place] Segs Absolute 7.08 [place] WBC (Bld) [#/Vol] 9.9 10*3/uL [place] WBC (Bld) [#/Vol] 0.0 10*3/uL 0.0 per 100 WBC [place] WBC Morphology NOT REPORTED [place] Comprehensive Metabolic Pane l w/ Reflex to MGon 06-14-2019 Albumin [Mass/Vol] 4.4 g/dL 3.5 - 5.2 g/dL [place] Albumin/Globulin [Mass ratio] 1.2 {ratio} [place] ALP [Catalytic activity/Vol] 77 U/L 40 - 129 U/L [place] ALT [Catalytic activity/Vol] 19 U/L 5 - 41 U/L [place] Anion gap [Moles/Vol] 15 mmol/L 9 - 17 mmol/L [place] AST [Catalytic activity/Vol] 22 U/L <40 [place] Bilirubin Ql (U) 0.61 mg/dL 0.3 - 1.2 mg/dL [place] Bun/Cre Ratio 23 High [place] Calcium [Mass/Vol] 10.0 mg/dL 8.6 - 10. 4 mg/dL [place] Chloride [Moles/Vol] 98 mmol/L 98 - 10 7 mmol/L [place] CO2 [Moles/Vol] 24 mmol/L 20 - 31 mmol/L [place] Creatinine [Mass/Vol] 0.82 mg/dL 0.7 - 1.2 mg/dL [place] GFR >60 >60 mL/min [place] GFR Non- >60 >60 mL/min [place] Glucose [Mass/Vol] 98 mg/dL 70 - 99 mg/dL [place] Interpretation and review of laboratory results Abnormal [place] Potassium [Moles/Vol] 4.0 mmol/L 3.7 - 5.3 mmol/L [place] Protein [Mass/Vol] 8.2 g/dL 6.4 - 8.3 g/dL [place] Sodium [Moles/Vol] 137 mmol/L 135 - 144 mmol/L [place] Urea nitrogen [Mass/Vol] 19 mg/dL 6 - 20 mg/dL [place] D-Dimer, Quantitativeon D-Dimer, Quant 0.42 [place], [place] Comment on above: Elevated levels of [...] activity/Vol] 37 U/L 13 - 60 U/L [place] Metabolic Panelon 06-14-2019 GFR/1.73 sq M predicted among non-blacks MDRD (S/P/Bld) [Vol rate/Area] [place], [place] Comment on above: Average GFR for 50-5 9 years old: 93 mL/min/1.73sq m Chronic Kidney Disease: <60 mL/min/1.73sq m Kidney failure: <15 mL/min/1.73sq m eGFR calculated using average adult body mass. Additional eGFR calculator available at: http://www.[employer]/multiple_crcl_2012.htm Stage 1: Some kidney damage normal GFR Stage 2: Mild kidney damage GFR 60-89 Stage 3: Moderate kidney damage GFR 30-59 Stage 4: Severe kidney damage GFR 15-29 Stage 5: Severe kidney damage GFR <15 ESRD - chronic treatment by dialysis or transplant Troponinon 06-14-2019 Troponin I.cardiac [Mass/Vol] [place], [place] Comment on above: Reference Range: <0.03 [...] diagnosis. Troponin T.cardiac [Mass/Vol] ug/L <0.03 ng/mL [place] Comment on above: Troponin T results c annot be compared to Troponin-I results. Troponin, High Sensitivity NOT REPORTED 0 - 22 ng/L [place] Troponin I.cardiac [Mass/Vol] [place] Comment on above: Reference Range: <0.03 [...] diagnosis. Troponin T.cardiac [Mass/Vol] ug/L <0.03 ng/mL [place] Comment on above: Troponin T results c annot be compared to Troponin-I results. Troponin, High Sensitivity NOT REPORTED 0 - 22 ng/L [place] APTTon 01-13-2018 aPTT 24.4 s Normal 20.5-30.5 [facility] Comment on above: Result Comment: [address] [address] Performed By: #### C BC, PTT, TROPI, GLYHGB ####[address] [address] Basic Metabolic Profon 01-13 (cont.) Normal [facility] Comment on above: Result Comment: Aver age GFR for 50-59 years old: 93 mL/min/1.73sq mChronic Kidney Disease: <60 mL/min/1.73sq mKidney failure: <15 mL/min/1.73sq meGFR calculated using average adult body mass. Additional eGFR calculator available at:http://www.[employer].[facility]/multiple_crcl_2012.htm[address] [address] Performed By: #### C BC, PTT, TROPI, GLYHGB ####[address] [address] Anion gap 9 mmol/L Normal 9-17 [facility] Comment on above: Performed By: #### C BC, PTT, TROPI, GLYHGB ####[address] [address] Calcium 9.3 mg/dL Normal 8.6-10.4 [facility] Comment on above: Performed By: #### C BC, PTT, TROPI, GLYHGB ####[address] [address] Chloride 102 mmol/L Normal 98-107 [facility] Comment on above: Performed By: #### C BC, PTT, TROPI, GLYHGB ####[address] [address] CO2 24 mmol/L Normal 20-31 [facility] Comment on above: Performed By: #### C BC, PTT, TROPI, GLYHGB ####[facility] [address] [place] [address] Creatinine 0.75 mg/dL Normal 0.70-1.20 [facility] Comment on above: Performed By: #### C BC, PTT, TROPI, GLYHGB ####[facility] [address] [place] [address] eGFR (non-black) mL/min/{1.73_m2} Normal >60 [facility] Comment on above: Performed By: #### C BC, PTT, TROPI, GLYHGB ####[facility] [address] [place] [address] Glucose mass conc 104 mg/dL High 70-99 [facility] Comment on above: Performed By: #### C BC, PTT, TROPI, GLYHGB ####[facility] [address] [place] [address] Potassium molar conc 5.0 mmol/L Normal 3.7-5.3 [facility] Comment on above: Result Comment: TEST CONFIRMED Performed By: #### C BC, PTT, TROPI, GLYHGB ####[facility] [address] [place] [address] Sodium 135 mmol/L Normal 135-144 [facility] Comment on above: Performed By: #### C BC, PTT, TROPI, GLYHGB ####[facility] [address] [place] [address] Urea nitrogen 12 mg/dL Normal 6-20 [facility] Comment on above: Performed By: #### C BC, PTT, TROPI, GLYHGB ####[facility] [address] [place] [address] BUN/CRE Ratio NOT REPORTED Normal 9-20 [facility] Comment on above: Performed By: #### C BC, PTT, TROPI, GLYHGB ####[address] [address] Staging: NOT REPORTED Normal [facility] Comment on above: Performed By: #### C BC, PTT, TROPI, GLYHGB ####[address] [address] (cont.) Normal [facility] Comment on above: Result Comment: Aver age GFR for 50-59 years old: 93 mL/min/1.73sq mChronic Kidney Disease: <60 mL/min/1.73sq mKidney failure: <15 mL/min/1.73sq meGFR calculated using average adult body mass. Additional eGFR calculator available at:http://www.[employer].[facility]/multiple_crcl_2012.htmVal[facility] [address] [place] [address] Performed By: #### C BC, PTT, TROPI, GLYHGB ####[address] [address] Anion gap 11 mmol/L Normal 9-17 [facility] Comment on above: Performed By: #### C BC, PTT, TROPI, GLYHGB ####[address] [address] Calcium 8.6 mg/dL Normal 8.6-10.4 [facility] Comment on above: Performed By: #### C BC, PTT, TROPI, GLYHGB ####[address] [address] Chloride 100 mmol/L Normal 98-107 [facility] Comment on above: Performed By: #### C BC, PTT, TROPI, GLYHGB ####[facility] [address] [place] [address] CO2 24 mmol/L Normal 20-31 [facility] Comment on above: Performed By: #### C BC, PTT, TROPI, GLYHGB ####[facility] [place] [address] Creatinine 0.64 mg/dL Low 0.70-1.20 [facility] Comment on above: Performed By: #### C BC, PTT, TROPI, GLYHGB ####[facility] [address] [place] [address] eGFR (non-black) mL/min/{1.73_m2} Normal >60 [facility] Comment on above: Performed By: #### C BC, PTT, TROPI, GLYHGB ####[address] [place] [place] [address] Glucose mass conc 102 mg/dL High 70-99 [facility] Comment on above: Performed By: #### C BC, PTT, TROPI, GLYHGB ####[facility] [place] [address] Potassium molar conc 3.5 mmol/L Low 3.7-5.3 [facility] Comment on above: Performed By: #### C BC, PTT, TROPI, GLYHGB ####[facility] [place] [address] Sodium 135 mmol/L Normal 135-144 [facility] Comment on above: Performed By: #### C BC, PTT, TROPI, GLYHGB ####[facility] [address] [place] [address] Urea nitrogen 12 mg/dL Normal 6-20 [facility] Comment on above: Performed By: #### C BC, PTT, TROPI, GLYHGB ####[facility] [place] [address] BUN/CRE Ratio NOT REPORTED Normal 9- [facility] Comment on above: Performed By: #### C BC, PTT, TROPI, GLYHGB ####[facility] [address] [place] [address] Staging: NOT REPORTED Normal [facility] Comment on above: Performed By: #### C BC, PTT, TROPI, GLYHGB ####[facility] [address] [place] [address] Discharge Summaryon 01-14-20 18 HIM IP Note OR High Value Associate Normal [facility] Magnesiumon 01-13-2018 Magnesium 2.2 mg/dL Normal 1.6-2.6 [facility] Comment on above: Result Comment: [facility] [address] [place] [address] Performed By: #### C BC, PTT, TROPI, GLYHGB ####[facility] [address] [place] [address] Magnesium 2.1 mg/dL Normal 1.6-2.6 [facility] Comment on above: Result Comment: [facility] [place] [address] Performed By: #### C BC, PTT, TROPI, GLYHGB ####[facility] [address] [place] [address] Plan of Careon 01-13-2018 HIM IP Note OR High Value Associate Normal [facility] Progress Noteon 01-13-2018 HIM IP Note OR High Value Associate Normal [facility] HIM IP Note OR High Value Associate Normal [facility] HIM IP Note OR High Value Associate Normal [facility] APTTon 01-12-2018 aPTT 47.5 s High 20.5-30.5 [facility] Comment on above: Result Comment: [facility] [address] [place] [address] Performed By: #### P TT ####[address] [place] [address] aPTT 48.3 s High 20.5-30.5 [facility] Comment on above: Result Comment: [facility] [address] [place] [address] Performed By: #### P LT, PTT ####[address] [address] aPTT 50.8 s High 20.5-30.5 [facility] Comment on above: Result Comment: [facility] [address] [place] [address] Performed By: #### P TT ####[address] [address] Platelet Counton 01-12-2018 Platelets 154 10*3/uL Normal 138-453 [facility] Comment on above: Result Comment: [facility] [address] [place] [address] Performed By: #### P LT, PTT ####[address] [address] Progress Noteon 01-12-2018 HIM IP Note OR High Value Associate Normal [facility] APTTon 01-11-2018 aPTT 38.0 s High 20.5-30.5 [facility] Comment on above: Result Comment: [facility] [address] [place] [address] Performed By: #### P TT ####[address] [address] aPTT 35.3 s High 20.5-30.5 [facility] Comment on above: Result Comment: [facility] [address] [place] [address] Performed By: #### P TT ####[address] [address] aPTT 30.5 s Normal 20.5-30.5 [facility] Comment on above: Result Comment: [facility] [address] [place] [address] Performed By: #### P TT ####[address] [address] CBCon 01-11-2018 Erythrocyte distribution width Auto Ratio (RBC) 14.0 % Normal 11.8-14.4 [facility] Comment on above: Performed By: #### C BC, CP, LIPR, MG ####[address] [address] Erythrocytes (RBC) 0.0 per 100 WBC Normal 0.0 [facility] Comment on above: Result Comment: [facility] [place] [address] Performed By: #### C BC, CP, LIPR, MG ####[address] [address] Erythrocytes (RBC) 4.36 10*6/uL Normal 4.21-5.77 [facility] Comment on above: Performed By: #### C BC, CP, LIPR, MG ####[address] [address] Hematocrit (HCT) 40.6 % Low 40.7-50.3 [facility] Comment on above: Performed By: #### C BC, CP, LIPR, MG ####[address] [address] Hemoglobin mass conc (Bld) 13.3 g/dL Normal 13.0-17.0 [facility] Comment on above: Performed By: #### C BC, CP, LIPR, MG ####[address] [address] MCH 30.5 pg Normal 25.2-33.5 [facility] Comment on above: Performed By: #### C BC, CP, LIPR, MG ####[address] [place] [address] MCHC mass conc (RBC) 32.8 g/dL Normal 28.4-34.8 [facility] Comment on above: Performed By: #### C BC, CP, LIPR, MG ####[address] [address] MCV 93.1 fL Normal 82.6-102.9 [facility] Comment on above: Performed By: #### C BC, CP, LIPR, MG ####[address] [place] [address] Platelet mean volume (PMV) 10.1 fL Normal 8.1-13.5 [facility] Comment on above: Performed By: #### C BC, CP, LIPR, MG ####[facility] [address] [place] [address] Platelets 153 10*3/uL Normal 138-453 [facility] Comment on above: Performed By: #### C BC, CP, LIPR, MG ####[address] [address] WBC (Leukocytes) 9.5 10*3/uL Normal 3.5-11.3 [facility] Comment on above: Performed By: #### C BC, CP, LIPR, MG ####[address] [address] Comp Metabolic Profon 2017 (cont.) Normal [facility] Comment on above: Result Comment: Aver age GFR for 50-59 years old: 93 mL/min/1.73sq mChronic Kidney Disease: <60 mL/min/1.73sq mKidney failure: <15 mL/min/1.73sq meGFR calculated using average adult body mass. Additional eGFR calculator available at:http://www.[employer].com/multiple_crcl_2012.htmVal[facility] [address] [place] [address] Performed By: #### C BC, CP, LIPR, MG ####[facility] [place] [address] Alanine aminotransferase (ALT) 17 U/L Normal 5-41 [facility] Comment on above: Performed By: #### C BC, CP, LIPR, MG ####[facility] [address] [place] [address] Albumin 3.6 g/dL Normal 3.5-5.2 [facility] Comment on above: Performed By: #### C BC, CP, LIPR, MG ####[address] [address] Albumin/Globulin Ratio 1.3 {ratio} Normal 1.0-2.5 [facility] Comment on above: Performed By: #### C BC, CP, LIPR, MG ####[facility] [address] [place] [address] Alkaline Phos 76 U/L Normal 40-129 [facility] Comment on above: Performed By: #### C BC, CP, LIPR, MG ####[facility] [place] [address] Anion gap 14 mmol/L Normal 9-17 [facility] Comment on above: Performed By: #### C BC, CP, LIPR, MG ####[address] [place] [address] Aspartate aminotransferase (AST) 15 U/L Normal <40 [facility] Comment on above: Performed By: #### C BC, CP, LIPR, MG ####[address] [address] Bilirubin Ql (U) 1.13 mg/dL Normal 0.3-1.2 [facility] Comment on above: Performed By: #### C BC, CP, LIPR, MG ####[facility] [address] [place] [address] Calcium 8.4 mg/dL Low 8.6-10.4 [facility] Comment on above: Performed By: #### C BC, CP, LIPR, MG ####[facility] [address] [place] [address] Chloride 97 mmol/L Low 98-107 [facility] Comment on above: Performed By: #### C BC, CP, LIPR, MG ####[facility] [address] [place] [address] CO2 23 mmol/L Normal 20-31 [facility] Comment on above: Performed By: #### C BC, CP, LIPR, MG ####[facility] [address] [place] [address] Creatinine 0.63 mg/dL Low 0.70-1.20 [facility] Comment on above: Performed By: #### C BC, CP, LIPR, MG ####[facility] [address] [place] [address] eGFR (non-black) mL/min/{1.73_m2} Normal >60 [facility] Comment on above: Performed By: #### C BC, CP, LIPR, MG ####[facility] [address] [place] [address] Glucose mass conc 107 mg/dL High 70-99 [facility] Comment on above: Performed By: #### C BC, CP, LIPR, MG ####[facility] [place] [address] Potassium molar conc 3.6 mmol/L Low 3.7-5.3 [facility] Comment on above: Performed By: #### C BC, CP, LIPR, MG ####[address] [address] Protein 6.4 g/dL Normal 6.4-8.3 [facility] Comment on above: Performed By: #### C BC, CP, LIPR, MG ####[address] [address] Sodium 134 mmol/L Low 135-144 [facility] Comment on above: Performed By: #### C BC, CP, LIPR, MG ####[address] [address] Urea nitrogen 19 mg/dL Normal 6-20 [facility] Comment on above: Performed By: #### C BC, CP, LIPR, MG ####[address] [address] BUN/CRE Ratio NOT REPORTED Normal -20 [facility] Comment on above: Performed By: #### C BC, CP, LIPR, MG ####[address] [address] Staging: NOT REPORTED Normal [facility] Comment on above: Performed By: #### C BC, CP, LIPR, MG ####[address] [address] Hemoglobin A1Con 01-11-2018 Glucose mass conc 114 mg/dL Normal [facility] Comment on above: Result Comment: The ADA and AACC recommend providing the estimated average glucose result to permit better patient understanding of their HBA1c result.[address] [address] Performed By: #### C BC, PTT, TROPI, GLYHGB ####[address] [address] Hemoglobin A1c/Hemoglobin.total mass fraction (Bld) 5.6 % Normal 4.0-6.0 [facility] Comment on above: Performed By: #### C BC, PTT, TROPI, GLYHGB ####[address] [address] Lipid Profileon 01-11-2018 Cholesterol 123 mg/dL Normal <200 [facility] Comment on above: Result Comment: Chol esterol Guidelines: <200 Desirable 200-240 Borderline >240 Undesirable Performed By: #### C BC, CP, LIPR, MG ####[address] [address] Cholesterol to HDL Ratio 2.0 {ratio} Normal <5 [facility] Comment on above: Performed By: #### C BC, CP, LIPR, MG ####[address] [address] HDL Cholesterol 63 mg/dL Normal >40 [facility] Comment on above: Result Comment: HDL Guidelines: <40 Undesirable 40-59 Borderline >59 Desirable Performed By: #### C BC, CP, LIPR, MG ####[address] [address] LDL Cholesterol 38 mg/dL Normal 0-130 [facility] Comment on above: Result Comment: LDL Guidelines: <100 Desirable 100-129 Near to/above Desirable 130-159 Borderline >159 UndesirableDirect (measured) LDL and calculated LDL are not interchangeable tests. Performed By: #### C BC, CP, LIPR, MG ####[address] [address] Triglyceride 111 mg/dL Normal <150 [facility] Comment on above: Result Comment: Trig lyceride Guidelines: <150 Desirable 150- 199 Borderline 200-499 High >499 Very high Based on AHA Guidelines for fasting triglyceride, July 2012.[address] [place] [address] Performed By: #### C BC, CP, LIPR, MG ####[facility] [address] [place] [address] Cholesterol in VLDL mass conc NOT REPORTED Normal 1-30 [facility] Comment on above: Performed By: #### C BC, CP, LIPR, MG ####[facility] [address] [place] [address] Magnesiumon 01-11-2018 Magnesium 2.1 mg/dL Normal 1.6-2.6 [facility] Comment on above: Result Comment: [facility] [address] [place] [address] Performed By: #### C BC, CP, LIPR, MG ####[facility] [place] [address] Plan of Careon 01-11-2018 HIM IP Note OR High Value Associate Normal [facility] HIM IP Note OR High Value Associate Normal [facility] Progress Noteon 01-11-2018 HIM IP Note OR High Value Associate Normal [facility] Troponinon 01-11-2018 Troponin I.cardiac mass conc Normal [facility] Comment on above: Result Comment: Refe rence Range: <0.03 Within reference range. 0.03-0.09 Possible myocardial damage.Repeat at appropriate intervals to rule out chronic elevation. >= 0.10 Indicative of myocardial damage.Patients with high levels of Biotin oral intake (i.e >5mg/day) may have falsely decreased Troponin T levels. Samples collected within 8 hours of biotin intake may require additional information for diagnosis.[address] [place] [address] Performed By: #### T ROPI ####[facility] [place] [address] Troponin T.cardiac mass conc ug/L Normal <0.03 [facility] Comment on above: Result Comment: Trop onin T results cannot be compared to Troponin-I results. Performed By: #### T ROPI ####[address] [address] APTTon 01-10-2018 aPTT 23.8 s Normal 20.5-30.5 [facility] Comment on above: Result Comment: [address] [place] [address] Performed By: #### C BC, PTT, TROPI, GLYHGB ####[address] [address] CBCon 01-10-2018 Erythrocyte distribution width Auto Ratio (RBC) 14.2 % Normal 11.8-14.4 [facility] Comment on above: Performed By: #### C BC, PTT, TROPI, GLYHGB ####[address] [address] Erythrocytes (RBC) 4.47 10*6/uL Normal 4.21-5.77 [facility] Comment on above: Performed By: #### C BC, PTT, TROPI, GLYHGB ####[address] [address] Erythrocytes (RBC) 0.0 per 100 WBC Normal 0.0 [facility] Comment on above: Result Comment: [facility] [address] [place] [id number] Performed By: #### C BC, PTT, TROPI, GLYHGB ####[address] [address] Hematocrit (HCT) 41.3 % Normal 40.7-50.3 [facility] Comment on above: Performed By: #### C BC, PTT, TROPI, GLYHGB ####[address] [address] Hemoglobin mass conc (Bld) 13.5 g/dL Normal 13.0-17.0 [facility] Comment on above: Performed By: #### C BC, PTT, TROPI, GLYHGB ####[facility] [address] [place] [address] MCH 30.2 pg Normal 25.2-33.5 [facility] Comment on above: Performed By: #### C BC, PTT, TROPI, GLYHGB ####[address] [place] [address] MCHC mass conc (RBC) 32.7 g/dL Normal 28.4-34.8 [facility] Comment on above: Performed By: #### C BC, PTT, TROPI, GLYHGB ####[facility] [address] [place] [address] MCV 92.4 fL Normal 82.6-102.9 [facility] Comment on above: Performed By: #### C BC, PTT, TROPI, GLYHGB ####[facility] [address] [place] [address] Platelet mean volume (PMV) 10.1 fL Normal 8.1-13.5 [facility] Comment on above: Performed By: #### C BC, PTT, TROPI, GLYHGB ####[address] [place] [address] Platelets 160 10*3/uL Normal 138-453 [facility] Comment on above: Performed By: #### C BC, PTT, TROPI, GLYHGB ####[facility] [place] [address] WBC (Leukocytes) 6.8 10*3/uL Normal 3.5-11.3 [facility] Comment on above: Performed By: #### C BC, PTT, TROPI, GLYHGB ####[address] [place] [address] History and Physicalon 01-10 HIM IP Note OR High Value Associate Normal [facility] Plan of Careon 01-10-2018 HIM IP Note OR High Value Associate Normal [facility] Progress Noteon 01-10-2018 HIM IP Note OR High Value Associate Normal [facility] Troponinon 01-10-2018 Troponin I.cardiac mass conc Normal [facility] Comment on above: Result Comment: Refe rence Range: <0.03 Within reference range. 0.03-0.09 Possible myocardial damage.Repeat at appropriate intervals to rule out chronic elevation. >= 0.10 Indicative of myocardial damage.Patients with high levels of Biotin oral intake (i.e >5mg/day) may have falsely decreased Troponin T levels. Samples collected within 8 hours of biotin intake may require additional information for diagnosis.[employer] [facility] [place], [place] [id number] ([phone] Performed By: #### C BC, PTT, TROPI, GLYHGB ####[employer] [id number] [place] [address] [phone] Troponin T.cardiac mass conc ug/L Normal <0.03 [facility] Comment on above: Result Comment: Trop onin T results cannot be compared to Troponin-I results. Performed By: #### C BC, PTT, TROPI, GLYHGB ####[employer] [id number] [place] [address] [phone] Vital Signs Date Time Vital Sign Value Performing Clinician Hilda marie 06-24-2024 08:41-0400 Body height 167.6 cm Casey Mohr MD Work Phone: [facility] 06-24-2024 08:41-0400 Body mass index (BMI) [Ratio] 28.13 kg/m2 Casey Mohr MD Work Phone: [facility] 06-24-2024 08:41-0400 Body weight 79.06 kg Casey Mohr MD Work Phone: [facility] 06-24-2024 08:41-0400 Diastolic blood pressure 90 mm[Hg] Casey Mohr MD Work Phone: [facility] 06-24-2024 08:41-0400 Heart rate 65 /min Casey Mohr MD Work Phone: [facility] 06-24-2024 08:41-0400 SaO2% (BldA) [Mass fraction] 98 % Casey Mohr MD Work Phone: [facility] 06-24-2024 08:41-0400 Systolic blood pressure 158 mm[Hg] Casey Mohr MD Work Phone: [facility] 2023 06:08-0500 SaO2% (BldA) [Mass fraction] 99 % Nadia Fitzpatrick MD Work Phone: [facility] [employer] 2023 05:49-0500 Body temperature 100.09 [degF] Nadia Fitzpatrick MD Work Phone: [facility] 2023 05:49-0500 Diastolic blood pressure 52 mm[Hg] Nadia Fitzpatrick MD Work Phone: [facility] 2023 05:49-0500 Heart rate 89 /min Nadia Fitzpatrick MD Work Phone: [facility] [employer] 2023 05:49-0500 Respiratory rate 18 /min Nadia Fitzpatrick MD Work Phone: [facility] [employer] 2023 05:49-0500 Systolic blood pressure 151 mm[Hg] Nadia Fitzpatrick MD Work Phone: [facility] [employer] 09-18-2023 13:40-0500 Diastolic blood pressure 68 mm[Hg] Shaheen Chappell MD Work Phone: [facility] 09-18-2023 13:40-0500 Heart rate 68 /min Shaheen Chappell MD Work Phone: [facility] 09-18-2023 13:40-0500 SaO2% (BldA) [Mass fraction] 97 % Shaheen Chappell MD Work Phone: [facility] 09-18-2023 13:40-0500 Systolic blood pressure 101 mm[Hg] Shaheen Chappell MD Work Phone: [facility] 09-18-2023 13:10-0500 Respiratory rate 16 /min Shaheen Chappell MD Work Phone: [facility] 09-18-2023 13:00-0500 Body temperature 97 [degF] Shaheen Chappell MD Work Phone: [facility] 09-18-2023 08:35-0500 Body height 167.6 cm Shaheen Chappell MD Work Phone: [facility] 09-18-2023 08:35-0500 Body mass index (BMI) [Ratio] 27.44 kg/m2 Shaheen Chappell MD Work Phone: [facility] 09-18-2023 08:35-0500 Body weight 77.11 kg Shaheen Chappell MD Work Phone: [facility] 08-14-2023 14:38-0500 Body height 167.6 cm Casey Mohr MD Work Phone: [facility] 08-14-2023 14:38-0500 Body mass index (BMI) [Ratio] 26.87 kg/m2 Casey Mohr MD Work Phone: [facility] 08-14-2023 14:38-0500 Body weight 75.52 kg Casey Mohr MD Work Phone: [facility] 08-14-2023 14:38-0500 Diastolic blood pressure 69 mm[Hg] Casey Mohr MD Work Phone: [facility] 08-14-2023 14:38-0500 Heart rate 72 /min Casey Mohr MD Work Phone: [facility] 08-14-2023 14:38-0500 SaO2% (BldA) [Mass fraction] 98 % Casey Mohr MD Work Phone: [facility] 08-14-2023 14:38-0500 Systolic blood pressure 102 mm[Hg] Casey Mohr MD Work Phone: [facility] 07-16-2023 13:41-0400 Body height 167.6 cm Jennie Hernandez MD Work Phone: [facility] 07-16-2023 13:41-0400 Body mass index (BMI) [Ratio] 27.11 kg/m2 Jennie Hernandez MD Work Phone: [facility] 07-16-2023 13:41-0400 Body weight 76.2 kg Jennie Hernandez MD Work Phone: [facility] 07-04-2023 09:34-0400 Body height 167.6 cm Jennie Hernandez MD Work Phone: [facility] 07-04-2023 09:34-0400 Body mass index (BMI) [Ratio] 27.12 kg/m2 Jennie Hernandez MD Work Phone: [facility] 07-04-2023 09:34-0400 Body weight 76.2 kg Jennie Hernandez MD Work Phone: [facility] 06-10-2023 10:18-0400 Body height 167.6 cm Jennie Hernandez MD Work Phone: [facility] 06-10-2023 10:18-0400 Body mass index (BMI) [Ratio] 27.12 kg/m2 Jennie Hernandez MD Work Phone: [facility] 06-10-2023 10:18-0400 Body weight 76.2 kg Jennie Hernandez MD Work Phone: [facility] 05-19-2023 09:07-0400 Body height 167.6 cm Jennie Hernandez MD Work Phone: [facility] 05-19-2023 09:07-0400 Body mass index (BMI) [Ratio] 27.12 kg/m2 Jennie Hernandez MD Work Phone: [facility] 05-19-2023 09:07-0400 Body weight 76.2 kg Jennie Hernandez MD Work Phone: [facility] 04-18-2023 12:33-0400 Body height 167.6 cm Jennie Hernandez MD Work Phone: [facility] 04-18-2023 12:33-0400 Body mass index (BMI) [Ratio] 26.63 kg/m2 Jennie Hernandez MD Work Phone: [facility] 04-18-2023 12:33-0400 Body weight 74.84 kg Jennie Hernandez MD Work Phone: [facility] 02-25-2023 08:48-0400 Body height 167.6 cm Jennie Hernandez MD Work Phone: [facility] 02-25-2023 08:48-0400 Body mass index (BMI) [Ratio] 26.63 kg/m2 Jennie Hernandez MD Work Phone: [facility] 02-25-2023 08:48-0400 Body weight 74.84 kg Jennie Hernandez MD Work Phone: [facility] 12-31-2022 13:46-0400 Body temperature 97.3 [degF] Rosa Garg DO Work Phone: [facility] [employer] [employer] 12-31-2022 13:46-0400 Diastolic blood pressure 71 mm[Hg] Rosa Garg DO Work Phone: [facility] [employer] [employer] 12-31-2022 13:46-0400 Heart rate 72 /min Rosa Garg DO Work Phone: [facility] [employer] [employer] 12-31-2022 13:46-0400 Respiratory rate 16 /min Rosa Garg DO Work Phone: [facility] [employer] [employer] 12-31-2022 13:46-0400 SaO2% (BldA) [Mass fraction] 92 % Rosa Garg DO Work Phone: [facility] [employer] [employer] 12-31-2022 13:46-0400 Systolic blood pressure 102 mm[Hg] Rosa Garg DO Work Phone: [facility] [employer] 12-31-2022 02:40-0400 Body mass index (BMI) [Ratio] 25.34 kg/m2 Rosa Garg DO Work Phone: [facility] [employer] 12-31-2022 02:40-0400 Body weight 71.2 kg Rosa Garg DO Work Phone: [facility] 12-30-2022 12:46-0400 Body height 167.6 cm Rosa Garg DO Work Phone: [facility] [employer] 05-31-2022 14:26-0400 Blood Pressure Location Julian DIAZ [facility] [place] 05-31-2022 14:26-0400 Diastolic blood pressure 60 mm[Hg] Julian HOWELLNola [facility] [place] 05-31-2022 14:26-0400 Heart rate 66 /min Julian DIAZ [facility] [place] 05-31-2022 14:26-0400 Respiratory rate 16 /min Julian DIAZ [facility] [place] 05-31-2022 14:26-0400 Systolic blood pressure 108 mm[Hg] Julian HOWELLNola [facility] [place] 03-09-2021 12:45-0400 Respiratory rate 16 /min Julian Dougherty MD [employer] Work Phone: 03-09-2021 10:28-0400 Body height 167.6 cm Julian Dougherty MD [employer] Phone: 03-09-2021 10:28-0400 Body mass index (BMI) [Ratio] 25.5 kg/m2 Julian Dougherty MD [employer] Phone: 03-09-2021 10:28-0400 Body temperature 98.49 [degF] Julian Dougherty MD [employer] Phone: 03-09-2021 10:28-0400 Body weight 71.67 kg Julian Dougherty MD [employer] Phone: 03-09-2021 10:28-0400 Heart rate 79 /min [facility]: 03-09-2021 10:28-0400 SaO2% (BldA) [Mass fraction] 97 % [facility]: 07-18-2020 09:15-0400 Pulse Oximetry 97 % [facility] 07-18-2020 08:30-0400 BP Diastolic 96 mm[Hg] [facility] [place] 07-18-2020 08:30-0400 BP Systolic 135 mm[Hg] [facility] [place] 07-18-2020 08:18-0400 Body Temperature 98.01 [degF] [facility] [place] 07-18-2020 08:18-0400 Pulse (Heart Rate) 84 /min [facility] [place] 07-18-2020 08:18-0400 Respiratory Rate 16 /min [facility] [place] 09-12-2019 02:36-0500 BP Diastolic 95 mm[Hg] [facility] [place] 09-12-2019 02:36-0500 BP Systolic 138 mm[Hg] [facility] [place] 09-12-2019 01:27-0500 Body Temperature 97.3 [degF] [facility] [place] 09-12-2019 01:27-0500 Pulse (Heart Rate) 86 /min [facility] [place] 09-12-2019 01:27-0500 Pulse Oximetry 97 % [facility] [place] 09-12-2019 01:27-0500 Respiratory Rate 18 /min Justice Dewitt [facility] O , CARLOS 06-14-2019 12:44-0400 BP Diastolic 89 mm[Hg] Pablo [facility]illo [facility] , [place] 06-14-2019 12:44-0400 BP Systolic 158 mm[Hg] Pablo Dewitt [facility] , [place]OS 06-14-2019 12:44-0400 Pulse (Heart Rate) 68 /min Pablo [facility]illo [facility], [place] 06-14-2019 12:44-0400 Pulse Oximetry 95 % Pablo Dewitt [facility] , CARLOS 06-14-2019 12:44-0400 Respiratory Rate 12 /min Pablo Portillo [employer] [facility] 06-14-2019 10:15-0400 BMI (Body Mass Index) 24.53 kg/m2 Pablo Dewitt [facility], CARLOS 06-14-2019 10:15-0400 Body Temperature 98.01 [degF] Pablo Dewitt [facility], CARLOS 06-14-2019 10:15-0400 Body weight 68.95 kg Pablo Dewitt [facility] , [place]LOS Encounters Encounter Date Encounter Type Care Provider Facility Start: 06-24-2024 End: 06-24-2024 Office outpatient visit 25 minutes Casey Mohr MD Work Phone: [facility] Comment on above: 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); Hyperreflexia Start: 06-24-2024 ambulatory SELF SELF [facility] Start: 06-16-2024 End: [facility]16[facility] Start: 05-31-2024 Evaluation and manag ement of inpatient [facility] Start: 05-29-2024 Evaluation and manag ement of inpatient [facility] Start: 05-29-2024 Evaluation and manag ement of inpatient [facility] Start: 05-28-2024 End: 05-31-2024 Evaluation and management of inpatient CASEY VIZCAINO [facility] Start: 05-28-2024 End: 05-28-2024 ambulatory [facility] Start: 03-15-2024 End: 03-15-2024 ambulatory Mo Gongora MD Facility: [facility] Start: 02-11-2024 End: 02-11-2024 ambulatory [facility] Start: 11-24-2023 End: 11-24-2023 ambulatory ROMARIO MAN Not Available Start: 2023 End: 2023 Emergency department patient visit NADIA FITZPATRICK [facility] Start: 2023 End: 2023 Emergency department patient visit Nadia Fitzpatrick MD Work Phone: [facility] ED Comment on above: Viral illness (Prima ry Dx) Start: 09-18-2023 End: 09-18-2023 ambulatory [facility] Start: 09-18-2023 End: 09-18-2023 Subsequent hospital visit by physician Shaheen Chappell MD Work Phone: [facility] Comment on above: Sacroiliitis Start: 09-09-[address] [facility] Start: 09-09-2023 Encounter for other preprocedural examination [facility] Start: 08-27-2023 [facility] Start: 08-14-2023 End: 08-14-2023 Office outpatient new 45 minutes Casey Mohr MD Work Phone: [facility] Comment on above: 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); Hyperreflexia Start: 08-14-2023 ambulatory [facility] Start: 08-13-2023 End: 08-13-[address] [facility] Start: 08-13-2023 End: 08-13-2023 Encounter for other preprocedural examination [facility] Start: 07-16-2023 ambulatory [facility] Start: 07-16-2023 End: 07-16-2023 Subsequent hospital visit by physician Jennie Hernandez MD Work Phone: [facility] Procedure Images Comment on above: Arrived Start: 07-16-2023 End: 07-16-2023 Patient encounter procedure Jennie Hernandez MD Work Phone: [facility] Comment on above: 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); Pain of both sacroiliac joints Start: 07-04-2023 ambulatory JENNIE HERNANDEZ [facility] Start: 07-04-2023 End: 07-04-2023 Office outpatient visit 15 minutes Jennie Hernandez MD Work Phone: [facility] Comment on above: 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); Pain of both sacroiliac joints; Polyneuropathy Start: 06-16-2023 End: 06-16-2023 ambulatory Mo Gongora MD Facility:[facility] Start: 06-10-2023 ambulatory JENNIE HERNANDEZ [facility] Start: 06-10-2023 End: 06-10-2023 Patient encounter procedure Jennie Hernandez MD Work Phone: [facility] Comment on above: Osteoarthritis of ri ght sacroiliac joint (Primary Dx); Pain of right sacroiliac joint; Polyneuropathy; Lower extremity numbness; Osteoarthritis of left sacroiliac joint; Pain of left sacroiliac joint; Lumbar spondylosis Start: 05-19-[address] [facility] SELF [facility] Start: 05-19-2023 End: 05-19-2023 Office outpatient visit 15 minutes Jennie Hernandez MD Work Phone: [facility] Comment on above: Osteoarthritis of le ft sacroiliac joint (Primary Dx); Pain of left sacroiliac joint; Lumbar spondylosis Start: 04-18-2023 ambulatory JENNIE HERNANDEZ [facility] Start: 04-18-2023 End: 04-18-2023 Patient encounter procedure Jennie Hernandez MD Work Phone: [facility] Comment on above: Osteoarthritis of le ft sacroiliac joint (Primary Dx) Start: 04-18-2023 End: 04-18-2023 Subsequent hospital visit by physician Jennie Hernandez MD Work Phone: [facility] Procedure Images Comment on above: Arrived Start: 02-25-2023 ambulatory JENNIE HERNANDEZ [facility] Start: 02-25-2023 End: 02-25-2023 Office outpatient new 30 minutes Jennie Hernandez MD Work Phone: [facility] Comment on above: Osteoarthritis of le ft sacroiliac joint (Primary Dx); Lumbar spondylosis; Lower extremity numbness Start: 01-13-[address] ROMARIO MAN [facility] ity:[facility] Start: 01-08-2023 End: 01-09-[address] ROMARIO MAN Facility:[facility] Start: 12-30-2022 End: 12-31-2022 Evaluation and management of inpatient ROMARIO MAN [facility] Start: 12-30-2022 End: 12-31-2022 Evaluation and management of inpatient Rosa Garg DO Work Phone: [facility] Comment on above: [...] examination without abnormal findings DR ROMARIO MAN [facility] Start: 09-11-2022 End: 09-12-[address] ROMARIO MAN Facility:[facility] Start: 09-11-2022 End: 09-12-2022 Encounter for general adult medical examination without abnormal findings DR ROMARIO MAN Facility:[facility] Start: 08-22-2022 End: 08-22-[address] NELSON IBRAHIM . Facility:[facility] Start: 07-10-2022 End: 07-11-2022 ambulatory Julian DIAZ Facility:[facility] Start: 07-10-2022 End: 07-10-2022 Patient encounter procedure Julian Davis NILL [facility]ill[facility] [place] Start: 06-26-2022 End: 06-27-2022 ambulatory Julian DIAZ Facility:CD:[id number] Start: 06-24-2022 Encounter for preprocedural laboratory examination DR JULIAN DIAZ . [facility] Start: 06-22-2022 End: 06-23-[address] JULIAN DIAZ . Facility:[facility] Start: 06-22-2022 End: 06-23-2022 Encounter for preprocedural laboratory examination DR JULIAN DIAZ . Facility:[facility] Start: 05-31-2022 End: 06-01-2022 ambulatory ROMARIO MAN PROVIDER Facility:[facility] Start: 05-31-2022 End: 05-31-2022 Patient encounter procedure Julian Susan DANTEL [facility] [place] Start: 05-30-2022 End: 05-31-[address] NELSON IBRAHIM . Facility:[facility] Start: 05-15-2022 ambulatory Julian DIAZ Facility :[facility] Start: 04-30-2022 End: 04-30-[address] NELSON IBRAHIM . Facility:[facility] Start: 04-23-2022 End: 04-23-[address] NELSON IBRAHIM . Facility:[facility] Start: 04-03-2022 End: 04-04-2022 ambulatory JULIANE MASSEY . Facility:[facility] Start: 03-25-2022 End: 03-25-2022 Subsequent hospital visit by physician Romario Man MD Work Phone: [facility] Laboratory Comment on above: Chronic fatigue Start: 03-12-2022 End: 03-13-[address] ROMARIO MAN Facility:[facility] Start: 03-12-2022 End: 03-12-[address] ROMARIO MAN Facility:[facility] Start: 02-21-2022 End: 02-22-[address] NELSON Acevedo Facility:[facility] Start: 02-05-2022 End: 02-05-[address] ROMARIO MAN Facility:[facility] Start: 03-09-2021 End: 03-09-2021 Emergency department patient visit Julian Dougherty MD [facility] ED Comment on above: Acute gout of right wrist, unspecified cause (Primary Dx) Start: 08-17-2020 End: 08-17-2020 Subsequent hospital visit by physician [facility] Cardiology Stress Room [facility] Stress Lab Comment on above: Arrived Start: 08-16-2020 End: 08-18-2020 Subsequent hospital visit by physician [facility] Vascular Imaging Room [facility] Vascular Lab Comment on above: Other specified lisette pheral vascular diseases (HCC) Start: 08-16-2020 End: 08-16-2020 Subsequent hospital visit by physician [facility] [facility] Stress Lab Comment on above: Arrived Start: 07-18-2020 End: 07-18-2020 Emergency department patient visit Sebastian Jany Work Phone: [facility] ED Comment on above: Abdominal pain, epig astric (Primary Dx) Start: 09-12-2019 End: 09-12-2019 Emergency department patient visit Justice Shaver Work Phone: [facility] ED Comment on above: Trapezius muscle spa sm (Primary Dx) Start: 06-14-2019 End: 06-14-2019 Emergency department patient visit Pablo Portillo Work Phone: [facility] ED Comment on above: Chronic pain of both shoulders (Primary Dx); Neck pain, chronic; Nonspecific chest pain Start: 01-29-2018 End: 01-30-2018 Ambulatory DEFAULT PHYSICIAN Facility:[facility] Start: 01-20-2018 End: 01-21-2018 Ambulatory DEFAULT PHYSICIAN Facility:[facility] Start: 01-10-2018 End: 01-13-2018 Evaluation and management of inpatient SOREN MOHR [facility] Procedures Date Procedure Procedure Detail Performing Clinician [...] 12-31-2022 Assay of troponin quantitative Cece Villalobos PHARMACY TEACHER - [facility] Work Phone: Start: 12-31-2022 BASIC METABOLIC PANEL W/ REFLEX TO MG FOR LOW K Cece Villalobos PHARMACY TEACHER - [employer] Work Phone: Start: 12-31-2022 Lipid panel Cece Villalobos PHARMACY TEACHER - [facility] Work Phone: Start: 12-31-2022 End: 12-31-2022 Ecg routine ecg w/least 12 lds w/i&r Cece Villalobos PHARMACY TEACHER - [facility] Work Phone: Start: 12-30-2022 Echo tthrc r-t 2d w/wom-mode compl spec&colr d Cece Bairon Griselda PHARMACY TEACHER - [employer] Work Phone: Start: 12-30-2022 RESPIRATORY PANEL, MOLECULAR, WITH COVID-19 Cecejhonatan Villalobos PHARMACY TEACHER - [employer] Work Phone: Start: 12-30-2022 Rhythm ecg 1-3 [...] Performed By: #### HGBHCT #### [facility] [address] [place] [address] Dr. Raimundo Estrada Start: 06-26-2022 Colonoscopy Julian [...] SIGNS SHOWKAT AHMAD Start: 01-12-2018 DIAGNOSTIC CARDIAC [employer] PROCEDURE SHOWKAT AHMAD Start: 01-12-2018 APTT SHOWKAT [...] DTaP/Tdap/Td vaccine (3 - Td or Tdap) [facility] Start: 12-31-2025 Diabetes screen Diabetes screen [facility] Start: 2025 Pneumococcal 0-64 years Vaccine (3 - PPSV23 if available, else PCV20) Pneumococcal 0-64 years Vaccine (3 - PPSV23 if available, else PCV20) [facility] Start: 2025 Pneumococcal 0-64 years Vaccine (3 - PPSV23 or PCV20) Pneumococcal 0-64 years Vaccine (3 - PPSV23 or PCV20) [facility] Start: 06-24-2024 End: 06-24-2025 MILENA AND PE, SERUM MILENA AND PE, SERUM Lab Routine Hereditary and idiopathic peripheral neuropathy Expected: 06/24/2024, Expires: 06/24/2025 [facility] Comment on above: Expected: 06/24/2024, Expires: 5 Start: 06-24-2024 End: 06-24-2025 MR Cervical spine WO contrast MRI SPINE CERVICAL WITHOUT CONTRAST Imaging Routine Hyperreflexia Expected: 06/24/2024, Expires: 06/24/2025 [facility] Comment on above: Expected: 06/24/2024, Expires: 5 Start: 06-24-2024 End: 06-24-2025 MR Thoracic spine WO contrast MRI SPINE THORACIC WITHOUT CONTRAST Imaging Routine Hyperreflexia Expected: 06/24/2024, Expires: 06/24/2025 [facility] Comment on above: Expected: 06/24/2024, Expires: 5 Start: 06-06-2024 COVID-19 VACCINE ( season) COVID-19 VACCINE ( season) [facility] Start: 06-06-2024 Influenza vaccination INFLUENZA VACCINE (#1) [facility] Start: 01-01-2024 Lipid panel Lipids [facility] Start: 09-18-2023 End: 09-18-2023 Arthrodesis sacroiliac joint percutaneous ARTHRODESIS SACROILIAC JOINT MINIMALLY INVASIVE W/ TRANSFIXING DEVICE Sacroiliitis 09/18/2023 10:52 AM EST [facility] Start: 09-18-2023 End: 09-18-2023 Fluoroscopy up to 1 hour physician/qhp time FLUOROSCOPY IN OR Sacroiliitis 09/18/2023 10:52 AM EST [facility] Start: 08-14-2023 End: 08-14-2023 Patient encounter procedure 08/14/2023 2:45 PM EST Office Visit [facility] [address] [place] [address] Casey Mohr MD [address] [place] [address] [facility] Start: 08-14-2023 End: 08-14-2024 B12/folate level B12 & FOLATE Lab Routine Hereditary and idiopathic peripheral neuropathy Expected: 08/14/2023, Expires: 08/14/2024 [facility] Comment on above: Expected: 08/14/2023, Expires: Start: 08-14-2023 End: 08-14-2024 Hemoglobin A1c/Hemoglobin.total in Blood HEMOGLOBIN A1C Lab Routine Hereditary and idiopathic peripheral neuropathy Expected: 08/14/2023, Expires: 08/14/2024 [facility] Comment on above: Expected: 08/14/2023, Expires: Start: 08-14-2023 End: 08-14-2024 MILENA AND PE, SERUM MILENA AND PE, SERUM Lab Routine Hereditary and idiopathic peripheral neuropathy Expected: 08/14/2023, Expires: 08/14/2024 [facility] Comment on above: Expected: 08/14/2023, Expires: 4 Start: 08-14-2023 End: 08-14-2024 MR Cervical spine WO contrast MRI SPINE CERVICAL WITHOUT CONTRAST Imaging Routine Hyperreflexia Expected: 08/14/2023, Expires: 08/14/2024 [facility] Comment on above: Expected: 08/14/2023, Expires: Start: 08-14-2023 End: 08-14-2024 MR Thoracic spine WO contrast MRI SPINE THORACIC WITHOUT CONTRAST Imaging Routine Hyperreflexia Expected: 08/14/2023, Expires: 08/14/2024 [facility] Comment on above: Expected: 08/14/2023, Expires: Start: 08-14-2023 End: 08-14-2024 VITAMIN B6 VITAMIN B6 Lab Routine Hereditary and idiopathic peripheral neuropathy Expected: 08/14/2023, Expires: 08/14/2024 [facility] Comment on above: Expected: 08/14/2023, Expires: Start: 07-04-2023 End: 07-04-2023 Patient encounter procedure 07/04/2023 9:00 AM EDT Office Visit [facility] [address] [place] [address] Jennie Hernandez MD [address] [place] [address] [facility] Start: 06-10-2023 End: 06-10-2023 Patient encounter procedure 06/10/2023 10:00 AM EDT Office Visit [facility] [address] [place] [address] Jennie Hernandez MD [address] [place] [address] [facility] Start: 06-06-2023 COVID-19 Vaccine ( season) COVID-19 Vaccine ( season) [facility] Start: 06-06-2023 Influenza vaccination [facility] Start: 05-19-2023 End: 05-19-2023 Patient encounter procedure 05/19/2023 9:00 AM EDT Office Visit [facility] [address] [place] [address] Jennie Hernandez MD [address] [facility] [place] [address] [facility] Start: 05-06-2023 Influenza vaccination Flu vaccine (#1) [facility] Start: 04-18-2023 End: 04-18-2023 Patient encounter procedure 04/18/2023 12:40 PM EDT Office Visit [facility] [address] [facility] [address] Jennie Hernandez MD [address] [facility] [place] [address] [facility] Start: 04-15-2023 End: 04-15-2023 Patient encounter procedure 04/15/2023 10:15 AM EDT Office Visit [facility] [address] [place] [address] Jw Capps MD [address] [place] [address] [facility] Start: 03-25-2023 Hemoglobin A1c measurement A1C test (Diabetic or Prediabetic) [facility] Start: 02-25-2023 End: 02-26-2024 Electromyography EMG & NERVE CONDUCTION Neurology Routine Lower extremity numbness Expected: 02/25/2023, Expires: 02/26/2024 [facility] Comment on above: Expected: 02/25/2023, Expires: 4 Start: 01-11-2023 Lipid screen Lipid screen [facility] Start: 04-11-2022 End: 04-11-2022 Patient encounter procedure 04/11/2022 Office Visit Neurology Con Coawn MD [address] [place] [address] [place] [address] [facility] Start: 06-06-2021 Influenza vaccination Flu vaccine (Season Ended) [facility] Work Phone: Start: 01-10-2021 Diabetes screen Diabetes screen [facility] Start: 2020 Respiratory Syncytial Virus (RSV) or age 60 yrs+ (1 - 1-dose 60+ series) Respiratory Syncytial Virus (RSV) or age 60 yrs+ (1 - 1-dose 60+ series) [facility] Start: 2020 RSV VACCINE (1 - 1-dose 60+ series) RSV VACCINE (1 - 1-dose 60+ series) [facility] Start: 08-17-2020 End: 08-17-2020 Appointment 08/17/2020 Appointment [facility] Start: 06-06-2020 Influenza vaccination Flu vaccine (#1) [place] Start: 06-06-2019 Influenza vaccination Flu vaccine (#1) [place] Start: 01-11-2019 Lipid panel [facility] Start: 01-11-2019 Lipid screen Lipid screen [place] Start: 08-13-2018 Prostate specific antigen measurement Prostate Specific Antigen (PSA) Screening or Monitoring [facility] Start: 2010 Colon cancer screen colonoscopy Colon cancer screen colonoscopy [place] Start: 2010 Prostate specific antigen measurement PROSTATE CANCER SCREENING DISCUSSION [facility] Start: 2010 Screening for malignant neoplasm of colon Colon cancer screen colonoscopy [place] Start: 2010 Shingles Vaccine (1 of 2) Shingles Vaccine (1 of 2) [place] Start: 2010 Zoster vaccine hzv live for subcutaneous use ZOSTER (SHINGLES) VACCINE (1 of 2) [facility] Start: 2005 Screening for malignant neoplasm of colon [facility] Start: 2000 Lipid panel LIPID SCREENING [facility] Start: 1979 DTaP/Tdap/Td vaccine (1 - Tdap) DTaP/Tdap/Td vaccine (1 - Tdap) [place] Start: 1979 Third diphtheria, tetanus and acellular pertussis (DTaP) vaccination TDAP (ADULT) [facility] Start: 1978 Hepatitis C screening Hepatitis C screen [facility] Start: 1975 HIV screen HIV screen [place] Start: 1975 HIV screening [facility] Start: 1972 COVID-19 Vaccine (1) COVID-19 Vaccine (1) [facility] Work Phone: Start: 1972 Depression Screen Depression Screen [facility] [employer] Start: 1971 DTaP/Tdap/Td vaccine (1 - Tdap) DTaP/Tdap/Td vaccine (1 - Tdap) [place] Start: 1966 Pneumococcal 0-64 years Vaccine (1 of 1 - PPSV23) Pneumococcal 0-64 years Vaccine (1 of 1 - PPSV23) [place] Start: 1966 Pneumococcal 0-64 years Vaccine (1 of 2 - PPSV23) Pneumococcal 0-64 years Vaccine (1 of 2 - PPSV23) [facility] Work Phone: Start: 04-09-1961 COVID-19 VACCINE (#1) COVID-19 VACCINE (#1) [facility] Start: 1960 Hepatitis C screen Hepatitis C screen [place] Start: 1960 Hepatitis C screening [facility] Start: 1960 Tetanus vaccination TETANUS [facility] End: 01-02-2023 Basic Metabolic Panel w/ Reflex to MG Basic Metabolic Panel w/ Reflex to MG Lab Routine Daily for 3 Days starting 12/31/2022 until 01/02/2023, 1 completed [facility] [employer] Work Phone: Comment on above: Daily for 3 Days starting 12/31/2022 unt il 01/02/2023, 1 completed End: 01-02-2023 CBC W Auto Differential panel - Blood CBC with Auto Differential Lab Routine Daily for 3 Days starting 12/31/2022 until 01/02/2023, 1 completed [employer] [facility] [employer] Work Phone: Comment on above: Daily for 3 Days starting 12/31/2022 unt il 01/02/2023, 1 completed EKG 12 Lead EKG 12 Lead ECG STAT 06/14/2019 10:26 AM EDT [place] EKG 12 lead EKG 12 lead ECG Routine As Needed until discontinued starting 12/30/2022 [facility] [employer] Work Phone: Comment on above: As Needed until discontinued starting End: 03-25-2022 Hemoglobin A1c/Hemoglobin.total in Blood [employer] [facility] Phone: Comment on above: 1 Occurrences starting 03/25/2022 until 03/25/2022 End: 12-31-2022 Hemoglobin A1c/Hemoglobin.total in Blood Hemoglobin A1C Lab Routine Tomorrow AM for 1 Occurrences starting 12/31/2022 until 12/31/2022 [employer] [facility] Phone: Comment on above: Tomorrow AM for 1 Occurrences starting 0 12/31/2022 until 12/31/2022 Hemoglobin A1c/Hemoglobin.total in Blood Hemoglobin A1C Lab Routine 12/31/2022 6:30 AM EDT [facility] Phone: Initiate ED RT Bronc hospasm Protocol Initiate ED RT Bronchospasm Protocol Respiratory Care Routine Daily until discontinued starting 2023 [email or web address] Comment on above: Daily until discontinued starting 2023 End: 12-30-2022 Intermittent pulse oximetry Pulse Oximetry Spot Check Respiratory Care Routine One Time for 1 Occurrences starting 12/30/2022 until 12/30/2022 [employer] Phone: Comment on above: One Time for 1 Occurrences starting 12/05 until 12/30/2022 End: 03-25-2022 Nuclear Ab [Titer] in Serum by Immunofluorescence [employer] [facility] Phone: Comment on above: 1 Occurrences starting 03/25/2022 until 03/25/2022 Oxygen therapy [[facility] Data Set] Initiate Oxygen Therapy Protocol Respiratory Care Routine As Needed until discontinued starting 12/30/2022 [employer] Phone: Comment on above: As Needed until discontinued starting End: 2023 Portable XR Chest AP single view [email or web address] Comment on above: Once for 1 Occurrences starting 10/10/19 until 2023 End: 09-18-2023 RF Unspecified body region Views during surgery [facility] Comment on above: One Time for 1 Occurrences starting 09/05 until 09/18/2023 Stress test, lexiscan Stress kendra t, lexiscan Cardiac Services Routine 12/31/2022 3:03 PM EDT [facility] Phone: Vibratory Airway Clearance Vibra tory Airway Clearance Respiratory Care Routine Every 1hr while awake until discontinued starting 12/30/2022 [employer] Phone: Comment on above: Every 1hr while awake until discontinued starting 12/30/2022 End: 03-25-2022 Vitamin B12 & Folate [employer] [facility] Phone: Comment on above: 1 Occurrences starting 03/25/2022 until 03/25/2022 XR CHEST PORTABLE XR CHEST HEDY BLE Imaging STAT 06/14/2019 10:43 AM EDT [place] Payers Date Payer Category Payer Unknown [id number] 2022 Unknown 2022 Unknown [id number] 2021 Unknown [id number] 2021 Unknown [id number] 2019 Private Health Insurance [facility] [id number] 2019-Present [phone] [address] [place] [address] [id number] .7.3.038720.315 2019 Private Health Insurance [employer] xxxxxxxxxx 2019-Present [phone] [address] [place] [address] xxxxxxxxxx [id number] .7.3.931148.315 2016 Unknown [id number] 2014 Unknown [id number] 1.2.840.847264.1.13.239.2 .7.3.012226.315 1960 Unknown [id number] 2.16.840.1.546257.3.579.2 .727 1960 Unknown [id number] 2.16.840.1.401319.3.579.2 .727 1960 Unknown [id number] 2.16.840.1.351461.3.579.2 .727 1960 Unknown [id number] 2.16.840.1.890911.3.579.2 .727 1960 Unknown [id number] 2.16.840.1.380248.3.579.2 .593 1960 Unknown [id number] 2.16.840.1.843712.3.579.2 .593 1960 Unknown [id number] 2.16.840.1.817239.3.579.2 .593 1960 Unknown [id number] 2.16.840.1.860109.3.579.2 .593 1960 Unknown [id number] 2.16.840.1.608356.3.579.2 .593 1960 Unknown [id number] 2.16.840.1.308402.3.579.2 .593 1960 Unknown [id number] 2.16.840.1.027508.3.579.2 .593 1960 Unknown [id number] 2.16.840.1.651717.3.579.2 .593 1960 Unknown [id number] 2.16.840.1.790973.3.579.2 .593 1960 Unknown [id number] 2.16.840.1.732722.3.579.2 .593 1960 Unknown [id number] 2.16.840.1.224199.3.579.2 .593 1960 Unknown [id number] 2.16.840.1.137045.3.579.2 .593 1960 Unknown [id number] 2.16.840.1.642631.3.579.2 .593 1960 Unknown [id number] 2.16.840.1.588308.3.579.2 .593 1960 Unknown [id number] 2.16.840.1.767100.3.579.2 .593 1960 Unknown [id number] 2.16.840.1.255955.3.579.2 .593 1960 Unknown [id number] 2.16.840.1.733907.3.579.2 .593 1960 Unknown [id number] 2.16.840.1.137607.3.579.2 .593 1960 Unknown [id number] 2.16.840.1.845011.3.579.2 .593 1960 Unknown [id number] 2.16.840.1.477519.3.579.2 .593 1960 Unknown [id number] 2.16.840.1.522862.3.579.2 .983 1960 Unknown [id number] 2.16.840.1.721184.3.579.2 .983 1960 Unknown [id number] 2.16.840.1.720611.3.579.2 .983 1960 Unknown [id number] 2.16.840.1.693630.3.579.2 .983 1960 Unknown [id number] 2.16.840.1.979956.3.579.2 .983 1960 Unknown [id number] 2.16.840.1.726231.3.579.2 .983 1960 Unknown [id number] 2.16.840.1.587960.3.579.2 .983 1960 Unknown [id number] 2.16.840.1.343131.3.579.2 .983 1960 Unknown [id number] 2.16.840.1.940364.3.579.2 .983 1960 Unknown [id number] 2.16.840.1.074985.3.579.2 .983 1960 Unknown [id number] 2.16.840.1.095007.3.579.2 .983 1960 Unknown [id number] 2.16.840.1.575332.3.579.2 .983 1960 Unknown [id number] 2.16.840.1.942324.3.579.2 .983 1960 Unknown [id number] 2.16.840.1.572454.3.579.2 .173 1960 Unknown [id number] 2.16.840.1.348362.3.579.2 .173 1960 Unknown [id number] 2.16.840.1.545369.3.579.2 .1259 1960 Unknown [id number] 2.16.840.1.692187.3.579.2 .196 1960 Unknown [id number] 2.16.840.1.886253.3.579.2 .196 1960 Unknown [id number] 2.16.840.1.871380.3.579.2 .983 1960 Unknown [id number] 2.16.840.1.369407.3.579.2 .983 1959 Unknown [id number] 1.2.840.912742.1.13.239.2 .7.3.737069.315 1959 Unknown [id number] Social History Date Type Detail Facility Start: 06-14-2019 End: 02-25-2023 Tobacco smoking status NHIS Never smoker [facility] [employer] Start: 06-14-2019 End: 06-24-2024 Alcohol intake Yes [place] Start: 06-14-2019 Alcohol Comment not every day [place] Start: 1960 Sex Assigned At Not on file [place] Start: 09-12-2019 End: 06-24-2024 Alcohol intake Current drinker of alcohol (finding) [place] Start: 07-18-2020 End: 02-25-2023 Tobacco use and exposure Never used [facility] [place] Start: 03-15-2022 End: 12-30-2022 Exposure to SARS-CoV-2 (event) Not sure [place] Start: 03-09-2021 End: 06-24-2024 Alcohol intake [employer] [facility] [facility] Tobacco smoking status Never Gener al Surgery [facility] Start: 12-30-2022 History SDOH Alcohol Frequency 5 [facility] [employer] Work Phone: Start: 12-30-2022 History SDOH Alcohol Std Drinks 2 [email or web address] Work Phone: Start: 09-09-2023 Alcohol Comment 3-4 BEERS DAILY [facility] How often to you hav e a drink containing alcohol? 4 or more times a week [email or web address] How many standard dr inks containing alcohol do you have on a typical day? 3 or 4 [email or web address] How often do you hav e 6 or more drinks on 1 occasion? Daily or almost daily [employer] Medical Equipment Procedure Code Equipment Code Equipment [...] prepare for safety after surgery. (Met today) [facility] Goals: Independent core exercises for assisted use to prevent reoccurrence. Return to normal activity of house work/leisure/ADLs with post op therapy as ordered by surgeon if needed. Functional Status Date Assessment Result Facility 05-31-2022 Functional Status N/A [facility] Clinical Notes 02-21-2022 to 06-24-2024 Casey Mohr MD - 06/24/2024 8:45 AM EDTDischarge InstructionsNursing Notes - Griselda Craig RN - 09/18/2023 2:38 PM ESTNursing Notes - Griselda Craig RN - 09/18/2023 2:38 PM ESTDischarge Instructions Note Date & Type Note Facility 06-24-2024 History of Present illness Narrative [facility] NOTE Chief Complaint Patient [...] medication through his pain management physician in [place]. He has a history of a lumbar [...] tablet by mouth daily every morning. aspirin, [id number], tablet Take 1 tablet by mouth daily. [...] Mohr MD 06/24/2024 documented in this encounter [facility] 06-16-2024 Note Lipids are well cont rolled. Last lab's reviewed from May 2024. [facility] 06-16-2024 Note -ranexa Dc'd- theref ore will increase imdur to 120 mg daily Pt to call for any concerns of chest pain/angina, lightheadedness or dizziness. [facility] 06-16-2024 Note Hypertension is well controlled. Continue taking metoprolol 25 mg and lisinopril 40 mg. [facility] 06-16-2024 Note Coronary artery dise ase [...] [address] Marin to reassess [facility] 06-16-2024 Note [facility] CARDIOLOGY PROGR ESS NOTE HPI: Noel Alva is a 63 y.o. male here for hospital F/U HPI 63 yo male presents to clinic for hospital f/U after recent admit for Unstable angina, cardiac cath that did show moderate in-stent restenosis of LAD, otherwise mild-moderate multivessel disease. Pt is here from a follow up from being [facility]. Pt claims to have funny feeling in [...] symptoms. 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 Review of Systems Cardiovascular: Positive for claudication and near-syncope. Respiratory: Positive for shortness of breath. Musculoskeletal: Positive for arthritis, back pain, joint pain and myalgias. Genitourinary: Positive for frequency. Neurological: Positive for dizziness, light-headedness and numbness. All other systems reviewed and are negative. Hospital Medicine Discharge Summary Final Discharge Diagnosis: Unstable angina Admission Diagnosis: Unstable angina ([facility]) [I20.0] Hospital course: 63yoM with past medical history of CAD s/p PCI to LAD, hypertension, hyperlipidemia, GERD who was admitted from [facility] to [facility] on 05/28 for unstable angina. Cardiology service [...] pedis pulses are (more content not included)... [facility] 06-16-2024 Note Pt is here from a fo llow up from being [facility]. Pt claims to have funny feeling in [...] other systems reviewed and are negative. [facility] 05-31-2024 Note Hospital Medicine Discharge Summary Final Discharge Diagnosis: Unstable angina Admission Diagnosis: Unstable angina ([facility]) [I20.0] Hospital course: 63yoM with past medical history of CAD s/p PCI to LAD, hypertension, hyperlipidemia, GERD who was admitted from [facility] to [facility] on 05/28 for unstable angina. Cardiology service [...] Center 06/16/2024 10:40 AM Lisa Maya NP [facility] Your medication list START taking these [...] Medications These medications were sent to [facility] - [address] [place] [address] [facility] [place] [address], [facility] [address] atorvastatin 80 mg tablet metoprolol succinate XL [...] was 30 minutes. Signed Sydney Mclean MD [facility] Medicine 05/31/2024 5:10 PM CC: MD Magda [facility] 05-31-2024 Note Attestation signed by Destiney Curran [...] Value Ventricular Rate 94 Atrial Rate 94 MI Interval 132 QRS DURATION 72 QT Interval 410 QTC CALCULATION(BAZETT) 512 P [place] 60 R-[place] 50 T Wave [place] 70 Impression Normal sinus rhythm Nonspecific ST [...] left radial artery was obtained. A 6 Mexican glide sheath was inserted without difficulty. Bilateral [...] significant stenosis. Left (more content not included)... [facility] 05-31-2024 Note Cardiovascular Labor atory Report [...] left radial artery was obtained. A 6 Mexican glide sheath was inserted without difficulty. Bilateral [...] a small caliber vessel INDICATIONS: Unstable angina [facility] 05-30-2024 Note Attestation signed by Kristian [...] cardiac catheterization in a.m. Kristian Palumbo MD, [facility] Cardiology Progress Note Subjective Subjective: No [...] Value Ventricular Rate 94 Atrial Rate 94 MI Interval 132 QRS DURATION 72 QT Interval 410 QTC CALCULATION(BAZETT) 512 P [place] 60 R-[place] 50 T Wave [place] 70 Impression Normal sinus rhythm Prolonged QT [...] of the LAD in 2005 cath at [facility] 01/12/2018 due to chest pain that showed minimal disease and patent LAD stent. HTN HLD Plan: Continue aspirin, BB and statin Check modifiable risk factors including lipid panel and hemoglobin A1C Obtain TTE to assess cardiac function NPO after midnight for tentative heart catheterization tomorrow Maintain telemetry Optimize electrolytes Lucero Vann MD Mud Boss - PGY5 [facility] 05-30-2024 Note Hospital Medicine Daily Progress Note - 05/30/2024 8:09 AM; Room: [address] [place] [address] Admission: 05/28/2024 3:36 PM; Length of stay: 2 days THE HOSPITALIST TEAM PREFERS TO USE fromAtoB CHAT FOR COMMUNICATION 7AM-7PM. IF I DO NOT RESPOND WITHIN 15 MINUTES, PLEASE PAGE ME/CALL THROUGH THE SUPERVISOR SLASHING DEPARTMENT. FROM 7PM-7AM, PLEASE PAGE [phone](COVR) Code Status: Full Code Barriers to Discharge: [...] (CMS/HCC) Active Problems: Coronary artery disease involving little traverse coronary artery of little traverse heart with unstable angina pectoris (CMS/HCC) Dyslipidemia Primary hypertension GERD (gastroesophageal reflux disease) Assessment and Plan Unstable angina CAD of little traverse arteries of little traverse heart Hypertension Bradycardia Hyperlipidemia -Trop negative, EKG [...] 86 05/28/2024 Lab Results Component Value Date [id number] 05/29/2024 Imaging US neck Narrative: US [...] Self Care () Signed Sydney Mclean MD [facility] Medicine 05/30/2024 8:09 AM [facility] 05-29-2024 Note 05/29/24 0939 Admission Assessment [...] Status Interested Does the patient have a correctional casework specialist assigned to them through their insurance? No [...] to send link and activate MyChart? No [facility] 05-29-2024 Note Hospital Medicine Daily Progress Note - 05/29/2024 9:15 AM; Room: [address] [place] [address] Admission: 05/28/2024 3:36 PM; Length of stay: 1 days THE HOSPITALIST TEAM PREFERS TO USE fromAtoB CHAT FOR COMMUNICATION 7AM-7PM. IF I DO NOT RESPOND WITHIN 15 MINUTES, PLEASE PAGE ME/CALL THROUGH THE SUPERVISOR SLASHING DEPARTMENT. FROM 7PM-7AM, PLEASE PAGE [phone](COVR) Code Status: Full Code Barriers to Discharge: [...] (CMS/HCC) Active Problems: Coronary artery disease involving little traverse coronary artery of little traverse heart with unstable angina pectoris (CMS/HCC) Dyslipidemia Primary hypertension GERD (gastroesophageal reflux disease) Assessment and Plan Unstable angina CAD of little traverse arteries of little traverse heart Hypertension Bradycardia Hyperlipidemia -Trop negative, EKG [...] LDL 86 05/28/2024 No results found for: [id number] , IRON , TIBC , C3 , [...] Mclean MD Hospital Medicine 05/29/2024 9:15 AM [facility] 05-28-2024 Note Hospital Medicine History and Physical 05/28/2024 6:22 PM THE HOSPITALIST TEAM PREFERS TO USE fromAtoB CHAT FOR COMMUNICATION 7AM-7PM. IF I DO NOT RESPOND WITHIN 15 MINUTES, PLEASE PAGE ME/CALL THROUGH THE SUPERVISOR SLASHING DEPARTMENT. FROM 7PM-7AM, PLEASE PAGE [phone](COVR) Chief Complaint Direct admission from with unstable angina History of Present Illness Nole Alva is an 63 y.o. male who came from home with past medical history of CAD s/p PCI, hypertension, hyperlipidemia, GERD presents a direct admission from [facility] with a chief complaint of chest pain. 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 Reports that he was recently [...] was transferred as a direct admission from [facility] to [facility] for cardiac catheterization in the a.m. [...] D deficiency 11/24/2023 Osteoarthritis of sacroiliac joint ([facility]) 09/08/2023 Dyslipidemia 01/02/2023 S/P angioplasty with stent 01/02/2023 Atypical chest pain 12/30/2022 Viral syndrome 12/30/2022 Intermittent claudication ([facility]) 04/02/2021 Paresthesia of upper limb 04/02/2021 Peripheral vascular disease ([facility]) 04/02/2021 Primary hypertension 04/02/2021 Acute gout of right wrist 03/09/2021 S/P cardiac cath 01/12/2018 Coronary artery disease involving little traverse coronary artery of little traverse heart with unstable angina pectoris ([facility]) 01/10/2018 Mild intermittent asthma without complication 01/10/2018 Unstable angina ([facility]) 01/10/2018 Assessment and Plan Noel Alva is an 63 y.o. male who came from home with past medical history of CAD s/p PCI, hypertension, hyperlipidemia, GERD presents a direct admission from [place] (more content not included)... [facility] 05-28-2024 Note [place] Cardiology - [facility] Subjective Noel Alva is a [...] within normal limits. He underwent cath at [facility] 01/12/2018 due to chest pain that showed [...] 1 tablet b (more content not included)... [facility] 02-11-2024 Note [place] Cardiology - [facility] Subjective Noel Alva is a [...] within normal limits. He underwent cath at [facility] 01/12/2018 due to chest pain that showed [...] morning. D (more content not included)... [facility] 2023 Hospital Discharge instructions Nadia Fitzpatrick [...] care or concern. documented in this encounter [facility] 09-18-2023 Note #Cardiac risk strati [...] diastolic function No significant valvular abnormalities [facility] 09-18-2023 Nurse Note Pt provided with discharge instructions. Pt Iv removed and belongings gathered. Pt was wheeled to car by surgery staff and driven home by family. [facility] 09-18-2023 Miscellaneous Notes Pt provided with [...] this time POST OPERATIVE/PROCEDURE NOTE Noel Alva ([id number]) SURGEON Surgeon(s) and Role: * Shaheen Chappell MD - Primary MONTESSORI PARAPROFESSIONAL Marques ANESTHESIOLOGIST PIT BOSS: Avinash Adams APRN-PIT BOSS Student Nurse Residential Treatment Specialist: Amanda Murphy SURGICAL STAFF [employer] Supervisor: Caryn Tineo RN Registered Nurse Bakery Sales Clerk: Angeline Mohan RN Scrub Person: Luiza Kvng [...] PM documented in this encounter [facility] 09-18-2023 Nurse Note OT in with pt at this time [facility] 09-18-2023 History of Present illness Narrative [...] and can help during recovery) Primary Language Colombian PRIOR LEVEL AM-PAC Activity Inpatient Short Form [...] LUE Assessment WFL Supine to Sit Mobility [place] Level: Supine->Sit contact guard assist Bed Features/Set-up: Supine->Sit Flat Skilled Rationale Verbal cues Skilled Intervention/Details: Supine->Sit pt reorted that he knew how to log roll but twisted to get up even with vcs and attempts to physically assist with proper technique Sit to Stand Transfer [place]wood Level: Sit->Stand contact guard assist Assistive Device: Sit->Stand 2 wheeled walker Skilled Rationale Hand placement;Verbal cues Skilled Intervention/Details: Sit->Stand pt pulling up on the walker with both hands- cues to push off Stand to Sit Transfer [place]wood Level: Stand->Sit stand-by assist Assistive Device: Stand->Sit [...] assist with R sock Acute AMPA Acute [facility] Assessments Daily Activity Inpatient Short Form CURRENT [...] Low (problem-focused assessments w/limited treatment options) 09/18/23 5001 Surgery Information RN Approved Intervention as tolerated [...] bed mobility & transfers with supervision to AK. He was provided education review with log [...] Completed? yes Therapist Information License # [id number] General Information Pertinent History of Current Problem The patient is a 62 year old male with sacroiliitis who underwent Right SI fixation. He was referred to physical therapy for post procedure education review & mobility. Jc Farmer, PT documented in this encounter [facility] 09-18-2023 Nurse Note Pt ambulating in [place] with PT without difficulty. [employer] [facility] 09-18-2023 Nurse Note PT in with pt at this time [employer] [facility] 09-18-2023 Nurse Note Discharge instructions provided, pt states understanding, including the sedentary activity as described, denies questions. [facility] 09-18-2023 Hospital Discharge instructions Venecia Rivera RN - 09/18/2023 1:[address] Chappell [facility] Post-Operative Spine Surgery Home Going [...] take percocet prescribed by . Proceed with Lindsborg as prescribed by Dr. Chappell-when Lindsborg is completed, you may resume percocet from [...] this carefully. Please attend family, community and christianity events as soon as possible after your [...] faxed. documented in this encounter [facility] 09-18-[address] Chappell in to see pt at this time [facility] 09-18-2023 Surgery Postoperative evaluation and management note POST OPERATIVE/PROCEDURE NOTE Noel Alva ([id number]) SURGEON Surgeon(s) and Role: * Shaheen Chappell MD - Primary MONTESSORI PARAPROFESSIONAL Marques ANESTHESIOLOGIST PIT BOSS: Avinash Adams APRN-PIT BOSS Student Nurse Residential Treatment Specialist: Amanda Murphy SURGICAL STAFF [employer] Supervisor: Caryn Tineo RN Registered Nurse Bakery Sales Clerk: Angeline Mohan RN Scrub Person: Luiza Calderon [...] Chappell MD September 18, 2023 12:13 PM [facility] 08-14-2023 History of Present illness Narrative [facility] NOTE Chief Complaint Patient [...] does not smoke. [facility] [place]. He is receiving Percocet and Lyrica. Lyrica [...] being managed by his pain doctors in [place]. Noel was seen today for new patient. Diagnoses and all orders for this visit: Hereditary and idiopathic peripheral neuropathy - HEMOGLOBIN A1C; Future - B12 & FOLATE; Future - VITAMIN B6; Future - MILENA AND PE, SERUM; Future Hyperreflexia - MRI SPINE CERVICAL WITHOUT CONTRAST; Future - MRI SPINE THORACIC WITHOUT CONTRAST; Future Casey Mohr MD 08/14/2023 documented in this encounter [facility] 08-13-2023 Note Patient here for 1 [...] his right hip with Dr. Chappell in [place]. Had labs in December 2022. Review of Systems Cardiovascular: Positive for chest pain, claudication and dyspnea on exertion. Musculoskeletal: Positive for arthritis, back pain, joint pain and myalgias. Neurological: Positive for numbness. All other systems reviewed and are negative. [facility] 08-13-2023 Note Cardiovascular Medic ine [place] [facility] SUBJECTIVE Chief Complaint Patient presents with [...] his right hip with Dr. Chappell in [place]. Had labs in December 2022. history of CAD s/p stenting of the LAD in 2004, echocardiogram in 2010 was within normal limits. He underwent cath at [facility] 01/12/2018 due to chest pain that showed [...] (arteriosclerotic heart disease) Dyslipidemia Intermittent claudication ([facility]/HCC) Mild intermittent asthma without complication Paresthesia of upper limb Peripheral vascular disease ([facility]) Primary hypertension S/P angioplasty with stent S/P cardiac cath Unstable angina ([facility]) Viral syndrome Past Medical History: Diagnosis Date Coronary artery disease Hypertension PVD (peripheral vascular disease) ([facility]) Family History Problem Relation Name Age [...] and Affect (more content not included)... [facility] 07-16-2023 History of Present illness Narrative [...] therapy, medications, SI belt, therapeutic injections. 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 100% relief [...] therapy, medications, SI belt, therapeutic injections. 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 100% relief [...] findings. Additions if any: Jennie Hernandez MD, [facility] Rubber Attacher - [facility] documented in this encounter [facility] 07-16-2023 Instructions Eric Luu - 07/16/2023 [...] corticosteroids. documented in this encounter [facility] 07-04-2023 History of Present illness Narrative [...] Topical creams Physical therapy? Done recently at [facility] Xrays? Lumbar spine 12/2022 done at [place], bilateral hips and pelvis 01/08/23 MRI? 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 Done recently at [facility] Xrays? Lumbar spine 12/2022 done at [place], bilateral hips and pelvis 01/08/23 MRI? 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 Additions if any: Jennie Hernandez MD, CAQSM [facility]oped[facility] and Sports Medicine Rubber Attacher - [facility] documented in this encounter [facility] 06-10-2023 History of Present illness Narrative [...] findings. Additions if any: Jennie [facility], [facility] Rubber Attacher - [facility] documented in this encounter [facility] 05-19-2023 History of Present illness Narrative [...] Topical creams Physical therapy? Done recently at [facility] Xrays? Lumbar spine 12/2022 done at [place], bilateral hips and pelvis 01/08/23 MRI? 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 Done recently at [facility] Xrays? Lumbar spine 12/2022 done at [place], bilateral hips and pelvis 01/08/23 MRI? 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 Additions if any: Jennie Hernandez MD, [facility] Orthopedics and Sports Medicine Rubber Attacher - [facility] documented in this encounter [facility] 04-18-2023 History of Present illness Narrative [...] Additions if any: Jennie Hernandez MD, CAM [facility] Orthopedics and Sports Medicine Rubber Attacher - [facility] documented in this encounter [facility] 04-18-2023 Instructions Eric Luu - 04/18/2023 [...] corticosteroids. 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 Noel may call the office with any questions or concerns. 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 Noel may call the office with any questions or concerns. Referrals:None Medications prescribed today: None Follow up plan: Sports US guided left sacroiliac joint injection with REFUELING RAMP SUPERVISOR Complexity of problem(s): Mild Risk of morbidity [...] Additions if any: Jennie Hernandez MD, CAM [facility] Orthopedics and Sports Medicine Rubber Attacher - [facility] documented in this encounter [facility] 12-31-2022 History of Present illness Narrative Boat Operator reviewed discharge instructions with patient. No new [...] home following this hospitalization. Patient resides in [place] alone. He uses no DME and has no outside resources or services currently in place. 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 He is independent with all activities of [...] Priscilla, as his decision maker if needed. SNOW REMOVER to monitor and assist with any further [...] Well developed, well nourished with no malnutrition Student Support Counselor consult initiated Hospital Prophylaxis: DVT: Lovenox Stress [...] SATISFY MIPS PERFORMANCE] Cece Villalobos APRN - SHEET METAL SHOP FOREMAN , PHARMACY TEACHER, AUTHORIZATION COORDINATOR-C Hospitalist Medicine 12/31/2022, 9:21 AM Associated attestation - Kendell Alvarado MD - 12/31/2022 5:52 PM EDT Images from the original note were not included. [address], [address] Attestation Patient: Noel Alva Date of Admission: 12/30/2022 6:09 AM Hospital Day # 1 Date of Evaluation: 12/31/2022 I personally evaluated and examined the patient [id number] in conjunction with the PA/AUTHORIZATION COORDINATOR and agree with the management and dispostition of the patient. Please see the PA/AUTHORIZATION COORDINATOR's note for full details. My argueta findings [...] with the plan as outlined in the AUTHORIZATION COORDINATOR/PA's note Disposition: Discharge plan is pending Please note that this chart was generated using voice recognition [employer] dictation software. Although every effort was made to ensure the accuracy of this automated auto air conditioning mechanic, some errors in auto air conditioning mechanic may have occurred. Kendell Alvarado MD 12/31/2022 5:52 PM Boat Operator to bedside to complete morning assessment. Upon entry to room, pt sitting up in bed, respirations even and unlabored while on room air. Vitals obtained and assessment completed, see flow sheet for details. Dr Alvarado at bedside, reviewed pts blood pressure medications with him, okay to hold Norvasc and Metoprolol this morning. Pt denies needs from auto service writer at this time. Call light in reach. Care ongoing. Noted auto service writer had not urinated yet this shift. [...] bedside table are within reach, will monitor. Boat Operator offered meds to bed but patient declined. Echocardiogram/Doppler done at bedside. Instructed on policies and procedure. Spoke to cristian Zhao CNP for auto service writer to correct home medications. Okay to add: protonix, iron, Mobic, Lisinopril, and Amlodipine. Cardiology consult called to office. When reviewing home medications it was noted that there were some differences in doses of medications. Called [facility] and clarified medications. Will update [...] reach. Care ongoing. documented in this encounter [facility] [employer] Phone: 12-31-2022 Hospital Discharge instructions Ana Gutierres [...] low fat documented in this encounter [employer] Work Phone: 12-31-2022 Hospital course Narrative Discharge [...] sharp in the left chest. No radiation. [place] burning sensation when the chest pain subsided. [...] discharge home he will follow-up with his property and casualty insurance agent in [place]. Consultants: Dr. Mohr, cardiology Procedures: Stress Test [...] (Neck pain) Vitamin D3 50 MCG (1999 [place]) Tabs STOP taking these medications dicyclomine 10 MG capsule Commonly known as: Bentyl Where to Get Your Medications These medications were sent to [facility] [address] [place], [place] [address] [facility] - P [phone] - F [id number] [address] atorvastatin 20 MG tablet Patient Instructions: Activity: activity as tolerated Diet: cardiac diet Wound Care: none needed Other: None Disposition: Discharge to Home Follow up: Patient will be followed by Romario Man MD in 1-2 weeks CORE MEASURES on Discharge (if applicable) BRITTNY/ARB in CHF: NA Statin in AK: NA ASA in AK: NA Statin in CVA: NA Antiplatelet in CVA: NA Total time spent on discharge services: 40 minutes Including the following activities: Evaluation and Management of patient Discussion with patient and/or surrogate about current care plan Coordination with Case Management and/or Silk Spreader Coordination of care with Consultants (if applicable) Coordination of care with Receiving Facility Physician (if applicable) Completion of DME forms (if applicable) Preparation of Discharge Summary Preparation of Medication Reconciliation Preparation of Discharge Prescriptions Signed: Cece Villalobos APRN - [place], PHARMACY TEACHER, AUTHORIZATION COORDINATOR-C 12/31/2022, 5:06 PM Associated attestation - Kendell Alvarado MD - 12/31/2022 5:53 PM EDT Images from the original note were not included. [address], [address] Attestation Patient: Noel Alva Date of Admission: 12/30/2022 6:09 AM Hospital Day # 1 Date of Evaluation: 12/31/2022 I personally evaluated and examined the patient [id number] in conjunction with the PA/AUTHORIZATION COORDINATOR and agree with the management and dispostition of the patient. Please see the PA/AUTHORIZATION COORDINATOR's note for full details. My argueta findings [...] care plan Coordination with Case Management and/or Silk Spreader Coordination of care with Consultants (if applicable) [...] this chart was generated using voice recognition [employer] dictation software. Although every effort was made to ensure the accuracy of this automated auto air conditioning mechanic, some errors in auto air conditioning mechanic may have occurred. Kendell Alvarado MD 12/31/2022 5:53 PM documented in this encounter [employer] Work Phone: 11-14-2022 Note CONSULTATION CONSULTATION DATE: [...] or foot drop. 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 He did have to take two days off of work last week, which his very unlike him. He had trouble getting out of bed due to increased pain. He is prescribed Lindsborg 5/325 t.i.d., but due to pain, patient [...] radiculopathy, lumbar spondylosis. PLAN: Patient brought his Lindsborg in today for a pill count. We will change his medication to Percocet 5/325 t.i.d. and increase his Lyrica to 100 mg b.i.d. I did recommend a Neurosurgery referral, which the patient does agree to. We will send a referral to Dr. Shaheen Chappell at [facility] in [place]. We will continue to manage his medications at this time, and we will see him in the clinic in three months. Patient agrees with this plan. [facility] 10-16-2022 Note CONSULTATION CONSULTATION DATE: [...] use a cane. His current medications include Lindsborg 5/325 b.i.d. and Aleve p.r.n. He has [...] next three days, we will increase his [place] 5/325 to t.i.d. We will start also [...] agree with this plan. [facility] 08-22-2022 Note CONSULTATION CONSULTATION DATE: [...] weakness. Medications include Mobic 15 mg daily, [place] 5/325 b.i.d. and tizanidine 4 mg q.h.s. [...] a menthol rub. We will maintain his [place] 5/325 b.i.d. and he was instructed to use Voltaren to hi right CMC joint. Patient agrees with the plan of care and will be followed up in the office thereafter. [facility] 06-26-2022 Note OPERATIVE NOTE OPERATION [...] good condition. CC: Romario Man M.D. [facility] 06-01-2022 Note Chief Complaint consultation [...] BID, # 90 tab(s), Refills(s) 3, Pharmacy: [id number], 167.6, cm, 05/31/22 14:31:00 EDT, Height/Length Dosing, 72.8, kg, 05/31/22 14:31:00 EDT, Weight Dosing 3. Hematemesis (K92.0: Hematemesis) see # 1 Ordered: pantoprazole, 40 mg = 1 tab(s), Oral, BID, # 90 tab(s), Refills(s) 3, Pharmacy: [id number], 167.6, cm, 05/31/22 14:31:00 EDT, Height/Length Dosing, 72.8, kg, 05/31/22 14:31:00 EDT, Weight Dosing Follow-up No qualifying data available Problem List/Past Medical History Ongoing Asthma BMI 25.0-25.9,adult CAD in [place] artery DDD (degenerative disc disease), lumbar Depression [...] 325 mg or (more content not included)... [facility] Comment on above: Result Comment: Elec tronically [...] with no overt complications. [facility] 05-30-2022 Note CONSULTATION CONSULTATION DATE: [...] Medications include Mobic 15 mg daily and [place] 5/325 b.i.d. He does take tizanidine 4 [...] agrees with this plan. [facility] 04-03-2022 Note CONSULTATION CONSULTATION DATE: [...] and his workup at the ER in [place] warranted no findings. Today, he reports consistent [...] mg q.h.s., Mobic 15 mg daily and [place] 5/325 b.i.d. p.r.n. Activities such as standing, [...] clinic and heading straight to the lab. [facility] Signed and Approved by: JULIANE MASSEY . 04/04/2022 13:38:[address] [facility] 02-21-2022 Note CONSULTATION CONSULTATION DATE: [...] Medications include Mobic 15 mg q. day, [place] 5/325 b.i.d. and tizanidine 4 mg q.h.s., [...] cervical neuritis. PLAN: We will refill his [place] today 5/325 b.i.d., p.r.n. We will move [...] followed up in the office post procedure. [facility] Signed and Approved by: JULIANE MASSEY . 02/25/2022 15:08:[address] [facility] Evaluation + Plan note No data available for this section General Surgery [place] Evaluation note Diagnosis Acute gout of right wrist, unspecified cause- Primary documented in this encounter [employer] Phone: evaluation note* Diagnosis Chronic fatigue Other malaise and fatigue documented in this encounter [facility] Work Phone: evaluation note* Diagnosis Atypical chest pain- Primary Other chest pain Chest pain, unspecified type Viral syndrome Unspecified viral infection, in conditions classified elsewhere and of unspecified site documented in this encounter [facility]IER[facility] Shift Phone: evaluation note* Diagnosis Osteoarthritis of left sacroiliac joint- Primary Lumbar spondylosis Lumbosacral spondylosis without myelopathy Lower extremity numbness Disturbance of skin sensation [facility] Diagnosis Osteoarthritis of left sacroiliac joint [facility] Diagnosis Osteoarthritis of left sacroiliac joint- Primary Osteoarthritis of left sacroiliac joint [facility] Diagnosis Osteoarthritis of left sacroiliac joint- Primary Pain of left sacroiliac joint Disorders of sacrum Lumbar spondylosis Lumbosacral spondylosis without myelopathy [facility] Diagnosis Osteoarthritis of right sacroiliac joint- Primary Pain of right sacroiliac joint Disorders of sacrum Polyneuropathy Unspecified hereditary and idiopathic peripheral neuropathy Lower extremity numbness Disturbance of skin sensation Osteoarthritis of left sacroiliac joint Pain of left sacroiliac joint Disorders of sacrum Lumbar spondylosis Lumbosacral spondylosis without myelopathy [facility]* Diagnosis Osteoarthritis of both sacroiliac joints- Primary Pain of both sacroiliac joints Disorders of sacrum Polyneuropathy Unspecified hereditary and idiopathic peripheral neuropathy [facility]* Diagnosis Osteoarthritis of both sacroiliac joints Pain of both sacroiliac joints Disorders of sacrum [facility]* Diagnosis Osteoarthritis of both sacroiliac joints- Primary Pain of both sacroiliac joints Disorders of sacrum Osteoarthritis of both sacroiliac joints Pain of both sacroiliac joints Disorders of sacrum [facility]* Diagnosis Hereditary and idiopathic peripheral neuropathy- Primary Unspecified hereditary and idiopathic peripheral neuropathy Hyperreflexia Abnormal reflex [facility]* Diagnosis Sacroiliitis- Primary Sacroiliitis, not elsewhere classified [facility] Diagnosis Viral illness- Primary Unspecified viral infection, in conditions classified elsewhere and of unspecified site documented in this encounter [facility]* Diagnosis Hereditary and idiopathic peripheral neuropathy- Primary Unspecified hereditary and idiopathic peripheral neuropathy Hyperreflexia Abnormal reflex [facility]* Attachments The following attachments cannot be sent through Care Everywhere. * Gout (Colombian) [facility] Discharge instructions No data available for this section General Surgery Yessy Progress note No data available for this section General Surgery [facility] Reason for referral (narrative)* Consultation (Routine) - Auth Not Needed Specialty Diagnoses / Procedures Referred By Anni t Referred To Contact Neurology Diagnoses Polyneuropathy Jennie Hernandez MD [address] [place] [address] Casey Mohr MD [address] [place] [address] Referral ID Status Reason Start Date Expiration Date V isits Requested Visits Authorized [id number] Auth Not Needed 06/10/2023 07/04/2024 1 1 * Radiology (Routine) - New Request Specialty Diagnoses / Procedures Referred By Contac t Referred To Contact Diagnoses Osteoarthritis of left sacroiliac joint Pain of left sacroiliac joint Procedures US IMAGING FOR ORTHO Jennie Hernandez MD [address] [place] [id number] Referral ID Status Reason Start Date Expiration Date V isits Requested Visits Authorized [id number] New Request 06/10/2023 07/04/2024 1 1 [facility] Consultation (Routine) - Schedule Outgoing - Transfer of Care Specialty Diagnoses / Procedures Referred By Contac t Referred To Contact Neurologic Surgery Diagnoses Osteoarthritis of both sacroiliac joints Pain of both sacroiliac joints Jennie Hernandez MD [address] [facility] [place] [address] Referral ID Status Reason Start Date Expiration Date V isits Requested Visits Authorized [id number] Schedule Outgoing - Transfer of Care 07/16/2023 08/09/2024 1 1 * Radiology (Routine) - New Request Specialty Diagnoses / Procedures Referred By Contac t Referred To Contact Diagnoses Osteoarthritis of both sacroiliac joints Pain of both sacroiliac joints Procedures US IMAGING FOR ORTHO Jennie Hernandez MD [address] [place] [address], [place] [address] Referral ID Status Reason Start Date Expiration Date V isits Requested Visits Authorized [id number] New Request 07/16/2023 08/09/2024 1 1 [facility] ([facility]ative)* (Routine) Specialty Diagnoses / Procedures Referred By Anni t Referred To Contact [facility] [address] [place] [address] Referral ID Status Reason Start Date Expiration Date Visits Re quested Visits Authorized [facility] Summary Purpose Family History No Family History Records FoundNo Family History Records FoundNo Family History Records FoundNo Family History Records FoundNo Family History Records FoundNo Family History Records FoundNo Family History Records FoundNo Family History Records FoundNo Family History Records FoundNo Family History Records FoundNo Family History Records Found Advance Directives No Advanced Directives Records FoundDocuments on File Type Date Recorded Patient Take Off Man Expl anation Advance Directives and Living Will Power of Teletypesetter Monitor Latest Code Status on File Code Status Date Activated Date Inactivated Comments Full Code 01/12/2018 8:34 PM 01/13/2018 3:53 PM Full Code 01/10/2018 3:36 PM 01/12/2018 8:34 PM Documents on File Type Date Recorded Patient Take Off Man Expl anation ACP-Advance Directive ACP-Power of Teletypesetter Monitor Documents on File Type Date Recorded Patient Take Off Man Expl anation ACP-Advance Directive ACP-Power of Teletypesetter Monitor Latest Code Status on File Code Status [...] Agents on File Name Relationship Healthcare Agent Christalri p Communication Priscilla Alva Child Primary Decision Maker Discharge Instructions * Attachments The following attachments cannot be sent through Care Everywhere. * Chest Pain (Colombian) * Back Pain (Colombian) * Shoulder Pain (Colombian) documented in this encounter* Instructions* Justice Shaver [...] sent through Care Everywhere. * Neck Spasm (Colombian) documented in this encounter* Attachments The following attachments cannot be sent through Care Everywhere. * Abdominal Pain (Colombian) * Acid-Reducing Medicines: General Info (Colombian) documented in this encounter Assessments Diagnosis Chronic [...] Procedures VL DUP CAROTID BILATERAL ZulmaLisa neal, PHARMACY TEACHER - SHEET [employer]EM[employer] [address] [place] [address] Specialty Diagnoses / Procedures Referred By Contac t Referred To Contact Diagnoses Lower extremity numbness Procedures EMG & NERVE CONDUCTION Jennie Hernandez MD [address] [place] [address] Jw Capps MD [address] [place] [phone] Referral ID Status Reason Start Date Expiration Date V isits Requested Visits Authorized [id number] Pending Review 02/25/2023 03/21/2024 1 1 Specialty Diagnoses / Procedures Referred By Contac t Referred To Contact Diagnoses Osteoarthritis of left sacroiliac joint Procedures US IMAGING FOR ORTHO Jennie Hernandez MD [address] [place] [address] Referral ID Status Reason Start Date Expiration Date V isits Requested Visits Authorized [id number] New Request 04/18/2023 05/12/2024 1 1 Specialty Diagnoses / Procedures Referred By Contac t Referred To Contact Diagnoses Osteoarthritis of both sacroiliac joints Pain of both sacroiliac joints Procedures US IMAGING FOR ORTHO Jennie Hernandez MD [address] [place] [address] Referral ID Status Reason Start Date Expiration Date V isits Requested Visits Authorized [id number] New Request 07/16/2023 08/09/2024 1 1 Specialty Diagnoses / Procedures Referred By Contac t Referred To Contact Diagnoses Hyperreflexia Procedures MRI SPINE THORACIC WITHOUT CONTRAST MI MRI, DORSAL SPINE Casey Mohr MD [address] [place] [address] Referral ID Status Reason Start Date Expiration Date V isits Requested Visits Authorized [id number] New Request 08/14/2023 09/07/2024 1 1 Specialty Diagnoses / Procedures Referred By Contac t Referred To Contact Diagnoses Hyperreflexia Procedures MRI SPINE CERVICAL WITHOUT CONTRAST MI MRI, CERV SPINE Casey Mohr MD [address] [place] [address] Referral ID Status Reason Start Date Expiration Date V isits Requested Visits Authorized [id number] New Request 08/14/2023 09/07/2024 1 1 Specialty Diagnoses / Procedures Referred By Contac t Referred To Contact Diagnoses Hyperreflexia Procedures MRI SPINE THORACIC WITHOUT CONTRAST CHG MRI SPINAL CANAL THORACIC W/O CONTRAST Casey Truong MD [address] [place], [place] [id number] Referral ID Status Reason Start Date Expiration Date V isits Requested Visits Authorized [id number] New Request 06/24/2024 07/19/2025 1 1 Specialty Diagnoses / Procedures Referred By Contac t Referred To Contact Diagnoses Hyperreflexia Procedures MRI SPINE CERVICAL WITHOUT CONTRAST CHG MRI SPINAL CANAL CERVICAL W/O CONTRAST Casey Truong MD [address] [place] [address] Referral ID Status Reason Start Date Expiration Date V isits Requested Visits Authorized [id number] New Request 06/24/2024 07/19/2025 1 1 Additional Source Comments (unrecognized sect ion and content) No Status Records FoundNo Status Records FoundNo Status Records FoundNo Status Records FoundNo Status Records FoundNo Status Records FoundNo Status Records FoundNo Status Records FoundNo Status Records FoundNo Status Records FoundNo Status Records Found INFORMATION SOURCE (unrecogn ized section and content) DATE CREATED AUTHOR 03/26/2018 [facility] DATE CREATED AUTHOR AUTHOR'S ORGANIZ ATION 03/26/2018 [facility] DATE CREATED AUTHOR AUTHOR'S ORGANIZ ATION 07/11/2022 [facility] DATE CREATED AUTHOR AUTHOR'S ORGANIZ ATION 01/18/2023 [facility] DATE CREATED AUTHOR AUTHOR'S ORGANIZ ATION 07/18/2023 [facility] DATE CREATED AUTHOR AUTHOR'S ORGANIZ ATION 09/22/2023 [facility] DATE CREATED AUTHOR AUTHOR'S ORGANIZ ATION 10/11/2023 [facility] DATE CREATED AUTHOR AUTHOR'S ORGANIZ ATION 11/25/2023 [facility] DATE CREATED AUTHOR AUTHOR'S ORGANIZ ATION 03/25/2024 [facility] DATE CREATED AUTHOR AUTHOR'S ORGANIZ ATION 06/18/2024 [facility] DATE CREATED AUTHOR AUTHOR'S ORGANIZ ATION 06/26/2024 [facility] Reason for Visit (unrecogniz ed section and content) Reason Comments Shoulder Pain ongoing for past wee k worse today Neck Pain worse today Chest Pain ongoing for one week worse today Reason Comments Neck Pain burning/shooting kalen n, BL posterior neck. REcent nerve procedure with pain management. Out of [place] for 2 days. Reason Comments Flank Pain pt staes bilateral f alnk pain, onset Friday Status Reason Specialty Diagnoses / Procedures Referred By Contact Referred To Contact Authorized Stress Lab Diagnoses Atherosclerotic heart disease of [place] coronary artery without angina pectoris Procedures HC NM LEXISCAN STRESS W NUC HC NM SEST. REST STRESS MULT [id number] NM STRESS Lisa Maya, PHARMACY TEACHER - [employer]EMAN [address] [place] [address] [facility] [address] [place], [place] [phone] Status Reason Specialty Diagnoses / Procedures Referre d By Contact Referred To Contact Closed Vascular Lab Diagnoses Other specified peripheral vascular diseases Procedures HC EXTRACRANIAL BILAT STUDY [id number] US CAROTIDS Lisa Maya, PHARMACY TEACHER - [employer]AN [address] [place] [address] [facility] [address] [place] [id number] Status Reason Specialty Diagnoses / Procedures Referred By Contact Referred To Contact Closed Stress Lab Diagnoses Atherosclerotic heart disease of [place] coronary artery without angina pectoris Procedures HC NM LEXISCAN STRESS W NUC HC NM SEST. REST STRESS MULT [id number] NM STRESS Lisa Maya, PHARMACY TEACHER - SHEET [employer]EMAN [address] [place] [address] [facility] [address] [place] [address] Reason Comments Wrist Pain Right, onset last [...] pain, unspecified type Kendell Alvarado MD [address] [facility] [address] [place] [address] [facility] [address] [place] [address] Referral ID Status Reason Start Date Expiration Date Visits Re quested Visits Authorized [id number] 1 1 Reason Comments Pain New Patient Specialty Diagnoses / Procedures Referred By Contac t Referred To Contact Diagnoses Osteoarthritis of left sacroiliac joint Procedures US IMAGING FOR ORTHO Jennie Hernandez MD [address] [place] [address] Referral ID Status Reason Start Date Expiration Date V isits Requested Visits Authorized [id number] New Request 04/18/2023 05/12/2024 1 1 Reason Comments Pain Joint Injection Reason Comments Pain Follow-up Reason Comments Pain Specialty Diagnoses / Procedures Referred By Contac t Referred To Contact Diagnoses Osteoarthritis of both sacroiliac joints Pain of both sacroiliac joints Procedures US IMAGING FOR ORTHO Jennie Hernandez MD [address] [place] [address] [place] [address] Referral ID Status Reason Start Date Expiration Date V isits Requested Visits Authorized [id number] New Request 07/16/2023 08/09/2024 1 1 Reason Comments Pain Right Sacroiliac laurent nt Follow-up Right Sacroiliac laurent nt Joint Injection Right Sacroiliac laurent nt Reason Comments New Patient bilateral lower limb polyneuropathy Specialty Diagnoses / Procedures Referred By Anni antonio Referred To Contact Neurology Diagnoses Polyneuropathy Jennie Hernandez MD [address] [facility] [place] [address] Casey Mohr MD [address] [place] [address] Referral ID Status Reason Start Date Expiration Date Visits Re quested Visits Authorized [id number] Closed 06/10/2023 07/04/2024 1 1 Specialty Diagnoses / Procedures Referred By Anni antonio Referred To Contact Diagnoses Sacroiliitis Sacroiliitis [M46.1] Procedures MI ARTHRODESIS SACROILIAC JOINT PERCUTANEOUS CHG FLUOROSCOPY UP TO 1 HOUR PHYSICIAN/QHP TIME MI IMPLANT/INSERT DEVICE, NOC PROSTHETIC IMPLANT NOS ARTHRODESIS SACROILIAC JOINT MINIMALLY INVASIVE W/ TRANSFIXING DEVICE FLUOROSCOPY IN OR Shaheen Chappell MD [address] [place] [address] Referral ID Status Reason Start Date Expiration Date Visits Re quested Visits Authorized [id number] 09/11/2023 1 1 Reason Comments Influenza Symptoms [...] Ibarra RN) 0846 (Given - Provider: Corrie Iabrra RN) ferrous sulfate (IRON 325) tablet 325 [...] mg from all sources in 24 hours. 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 Relationship Specialty Start Date End Date Romario Man MD [address] [place] [address] PCP - General Family Medicine 06/14/19 Automobile 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 Relationship Specialty Start Date End Date Romario Man MD [address] [place] [address] PCP - General Family Medicine 06/14/19 Automobile 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 Relationship Specialty Start Date End Date Romario Man MD [address] [place] [address] PCP - General Family Medicine 04/18/23 Automobile 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 Relationship Specialty Start Date End Date Romario Man MD [address] [place] [address] PCP - General Family Medicine 04/18/23 Automobile 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 Relationship Specialty Start Date End Date Romario Man MD [address] [place] [address] PCP - General Family Medicine 04/18/23 Automobile 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 Relationship Specialty Start Date End Date Romario Man MD [address] [place] [address] PCP - General Family Medicine 04/18/23 Automobile 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 Relationship Specialty Start Date End Date Romario Man MD [address] [place] [address] PCP - General Family Medicine 04/18/23 Automobile 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 Relationship Specialty Start Date End Date Romario Man MD [address] [place] [address] PCP - General Family Medicine 04/18/23 Automobile 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 Relationship Specialty Start Date End Date Romario Man MD [address] [place] [address] PCP - General Family Medicine 04/18/23 Automobile 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 Relationship Specialty Start Date End Date Romario Man MD [address] [place] [address] PCP - [facility] 04/18/23 Automobile 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 Relationship Specialty Start Date End Date Romario Man MD [address] [place] [address] PCP - General Family Medicine 06/14/19 Automobile 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 Relationship Specialty Start Date End Date Romario Man MD [address] [place] [address] PCP - [facility] 04/18/23 FOR RECORDS PERTAINING TO PATIENTS WHO [...] BE BASED ON THE PRIMARY CLINICAL RECORDS. [facility] [employer] [facility] provides no warranty or guarantee of the accuracy or completeness of information in this document.
== END 2024-07-15 12:31 | disposition home or self-care (01) ==
LOC: MRI 12:31
PROVIDERS: PCP Nurse Practitioner Family
DX: R29.2 Abnormal reflex (principal); R26.89 Other abnormalities of gait and mobility; M50.30 Other cervical disc degeneration, unspecified cervical region; M48.02 Spinal stenosis, cervical region
CPT/HCPCS: 72141; 72146

== ENCOUNTER 2024-07-26 09:53 | Day surgery (SDC) | payer OTHER, SELFPAY ==
[2024-07-26 10:34] VITALS: BP 151/93; PULSE 67; TEMP 36.8; O2SAT 97
[2024-07-26 11:13] VITALS: BP 155/84; PULSE 57; O2SAT 95
[2024-07-26] MEDS: BUPIVACAINE HCL 0.25% PF 25 MG/10 ML VIAL INJ (11:14)
[2024-07-26] MEDS: LIDOCAINE HCL 2% PF 40 MG/2 ML VIAL INJ (11:14)
[2024-07-26 11:15] VITALS: BP 146/88; PULSE 58; O2SAT 96
--- NOTE | 2024-07-26 11:16 | W.PM.PROCNOT ---
Date of procedure: 07/26/24 Pre-op diagnosis: Pain due to lumbar spondylosis without myelopathy Post-op diagnosis: same as pre-op Procedure: Procedure: Bilateral L4-5, L5-S1 medial branch block Medications: Bupivacaine 0.25% 6cc The patient was seen and examined in the preoperative holding area.? An informed consent was obtained and placed on the chart.? The patient was brought to the medical procedure unit and placed in the prone position.? A timeout was completed verifying correct patient, procedure site, positioning, plan, and special equipment.? Using aseptic technique, the needle was placed at left L4. Under direct fluoroscopic visualization a Quincke-tipped spinal needle was advanced to the junction of the superior articulating process with the transverse process at the designated medial branch segment.? Preceded by negative aspiration, the above-mentioned injectate was placed in 1 mL aliquots.? The procedure was repeated at left L5, S1.? The needle was removed and insertion site was covered. The same procedure, at the same levels, was completed on the right side. The patient was taken to the postprocedural recovery area and monitored for an appropriate length of time before found suitable for discharge in the company of a responsible adult. Anesthesia: Local Surgeon: Mo Gongora Pathology: none sent Condition: stable Disposition: no change
== END 2024-07-26 11:20 | disposition home or self-care (01) ==
PROVIDERS: PCP Nurse Practitioner Family; Visit Provider Anesthesiology
DX: M47.816 Spondylosis without myelopathy or radiculopathy, lumbar region (principal)
CPT/HCPCS: 64493; 64494; J0665

== ENCOUNTER 2024-07-29 13:19 | Outpatient (OUT) | payer OTHER, SELFPAY ==
--- NOTE | 2024-07-29 13:42 | PM.CN ---
Consult Note: HPI Data of Consult Patient: known to practice within the last 3 years Requesting Physician: Isabelle Maria NP Primary Care Provider: KIARA KIRBY Consult Narrative Reason for consult: f/u Narrative: Noel Alva a pleasant 63 year old male presents for evaluation of chronic bilateral shoulders, hand, knee, and low back pain. Today patient rating pain 6/10, increasing to 8/10 with activity and depending on the weather due to OA, generalized and in bilateral shoulders and low back hip buttock pain. JOSE EDUARDO 46% today. Patient has returned to work and has noticed increase in pain and decline in functional ability. Unfortunately suprascapular/axillary RFAs denied by insurance. 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 Pt following with Dr Mohr [facility] at [facility] for chronic neuropathy and pain. continues to utilize tizanidine 4mg HS and mobic 15mg daily. recently underwent bilateral L4-5 L5-S1 facet medial branch block #1 and #2 with significant pain relief, >80% improvement immediately following and hours after the procedure. pain 1/10 post-op, he went to work and noticed significant improvement in ability to walk and stand for longer periods of time. cc:: CC: Isabelle Maria NP Review of Systems ROS Status of ROS 10 or more systems reviewed and unremarkable except as noted in history and below Musculoskeletal Reports: back pain PFSH [facility] Medical History (Updated 05/28/24 @ 10:20 by Remedios Carlin MD) HLD (hyperlipidemia) ?E78.5 - Hyperlipidemia, unspecified (ICD-10) CAD (coronary artery disease) ?I25.10 - Atherosclerotic heart disease of [place] coronary artery without angina pectoris (ICD-10) Bilateral shoulder pain ?M25.511 - Pain in right shoulder (ICD-10) ?M25.512 - Pain in left shoulder (ICD-10) Aortic atherosclerosis ?I70.0 - Atherosclerosis of aorta (ICD-10) Hypertension ?I10 - Essential (primary) hypertension (ICD-10) Numbness and tingling ?R20.0 - Anesthesia of skin (ICD-10) ?R20.2 - Paresthesia of skin (ICD-10) Back pain ?M54.9 - Dorsalgia, unspecified (ICD-10) Neck pain ?M54.2 - Cervicalgia (ICD-10) Anemia ?D64.9 - Anemia, unspecified (ICD-10) Asthma ?J45.909 - Unspecified asthma, uncomplicated (ICD-10) Surgical History H/O heart artery stent ?Z95.5 - Presence of coronary angioplasty implant and graft (ICD-10) H/O laminectomy ?Z98.890 - Other specified postprocedural states (ICD-10) Family History Father Family history of CHF (congestive heart failure) Family history of myocardial infarction Mother Family history of CHF (congestive heart failure) Social History Within the past year, how often did you have a drink containing alcohol: 4 or more times a week Within the past year, how many standard drinks containing alcohol did you have on a typical day: 1 or 2 Within the past year, how often did you have six or more drinks on one occasion: never Total score: 0 Score interpretation: Questions 2 and 3 are 0. It can be assumed that the patient's drinking is below the recommended limits. However, please confirm the accuracy of the patient's alcohol intake over the last few months. 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 Highest level of school completed/degree received: high school graduate In a typical week, how many times do you talk on the telephone with family, friends, or neighbors: 3 or more times per week How often do you get together with friends or relatives: 3 or more times per week How often do you attend jew or yarsanism services: never Do you belong to any clubs or organizations such as jew groups unions, fraternal or athletic groups, or school groups: no Little interest or pleasure in doing things: not at all Feeling down, depressed, or hopeless: not at all Feel stressed/tense/nervous/anxious/difficulty sleeping: not at all Gender Identity: male Meds Home Medications and Allergies Home Medications ?Medication ?Instructions ?Recorded ?Confirmed ?Type albuterol sulfate 90 mcg/actuation 1 inh inhalation Q6H 03/14/23 07/26/24 History aerosol inhaler (ProAir HFA) aspirin 81 mg tablet,delayed 81 mg PO DAILY 03/14/23 07/26/24 History release atorvastatin 40 mg tablet 40 mg PO DAILY 03/14/23 07/26/24 History cholecalciferol (vitamin D3) 50 50 mcg PO DAILY 03/14/23 07/26/24 History mcg (2,000 unit) capsule ferrous sulfate 325 mg (65 mg 325 mg PO BID 03/14/23 07/26/24 History iron) tablet (Niels-Time) lisinopril 40 mg tablet 40 mg PO DAILY 03/14/23 07/26/24 History meloxicam 15 mg tablet 15 mg PO DAILY 03/14/23 07/26/24 History nitroglycerin 0.4 mg sublingual 0.4 mg sublingual Q5M PRN chest 03/14/23 07/26/24 History tablet (Nitrostat) pain pantoprazole 40 mg tablet,delayed 40 mg PO DAILY 03/14/23 07/26/24 History release (Protonix) pregabalin 100 mg capsule (Lyrica) 100 mg PO BID 03/14/23 07/26/24 History ezetimibe 10 mg tablet 10 mg PO DAILY 05/24/24 07/26/24 History hydrochlorothiazide 25 mg tablet 25 mg PO DAILY #30 tabs 05/24/24 07/26/24 Rx isosorbide mononitrate 60 mg 60 mg PO DAILY 05/24/24 07/26/24 History tablet,extended release 24 hr metoprolol succinate 100 mg 100 mg PO DAILY 05/24/24 07/26/24 History tablet,extended release 24 hr (Toprol XL) oxycodone-acetaminophen 5 mg-325 1 tab PO TID PRN pain #90 tabs 06/17/24 07/26/24 Rx mg tablet (Percocet) naloxone 4 mg/actuation nasal 4 mg intranasal Q2M PRN opioid 07/14/24 07/26/24 Rx spray (Narcan) overdose #2 ea Allergies Allergy/AdvReac Type Severity Reaction Status Date / Time No Known Drug Allergies Allergy Verified 07/26/24 10:38 Exam Constitutional Documenting provider has reviewed patient's vital signs: yes Common normals: no apparent distress, oriented x3, healthy appearing, alert and well nourished General appearance: cooperative HENMT Common normals: normocephalic, hearing grossly normal bilaterally and moist oral mucous membranes Head and scalp: normocephalic Eye Common normals: PERRL Pupil: PERRL Neck & C-Spine Common normals: full ROM General: normal visual inspection Chest Common normals: inspection of chest normal Respiratory Common normals: normal respiratory effort, no retractions and no use of accessory muscles Back & Pelvis Lumbar spine/lower back: ROM limited, pain with ROM and straight leg raise negative bilaterally Sacroiliac joints: SI joints normal Other: positive facet loading bilaterally Extremity Common normals: normal to inspection and full ROM Right upper extremity: shoulder joint Left upper extremity: shoulder joint Other: bilateral shoulder ROM limited, increased pain with ROM, positive empty can test, positive posterior-lift off, positive cross body adduction. increased pain with palpation of bilateral suprascapular/axillary nerves, reports sharp shooting pain with overhead motions. strength 5/5 in BUE, sensation intact Neuro Common normals: oriented x3, CN's II-XII intact bilaterally, moves all extremities, no focal motor deficits, no sensory deficits noted and deep tendon reflexes 2+ bilaterally Sensorium/orientation: alert Motor exam: strength 5/5 throughout and no movement abnormalities noted Psych Common normals: mental status grossly normal, thought process normal, cooperative, affect normal, speech normal and activity/motor behavior normal Speech: normal speech Thought process: normal thought process Results Additional Findings Additional findings: If on a controlled substance or opioids, I have checked an [place] report on this patient and there are no aberrancies noted in the prescribing history.??If on a controlled substance or opioid a drug screen was completed and reviewed within the last year, and if there has not been a drug screen completed we ordered one today to monitor higher risk, state monitored pain medication use. As part of providing excellent, safe, comprehensive care, the following was completed at our patient's visit: 1. A medication reconciliation and review to ensure accurate knowledge of current/active medications, including asking our patients to inform us about any baop-gup-amdyval medications or herbal remedies/nutritional supplements/alternative remedies. 2. A review to specifically ensure our patients have had annual screening for screening for depression, screening for tobacco use, and screening for unhealthy alcohol use. For concerning screenings had a discussion with the patient, provided patient education, and recommended follow-up with primary care provider when appropriate. If patient noted with a risk of falling, they received education on strength, gait, and balance training to prevent future risk of falling. 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
== END 2024-07-29 13:20 | disposition home or self-care (01) ==
LOC: PM 13:19
PROVIDERS: PCP Nurse Practitioner Family; Visit Provider Nurse Practitioner
DX: M47.816 Spondylosis without myelopathy or radiculopathy, lumbar region (principal); M48.062 Spinal stenosis, lumbar region with neurogenic claudication; Z79.891 Long term (current) use of opiate analgesic; M79.18 Myalgia, other site; M19.90 Unspecified osteoarthritis, unspecified site; G62.9 Polyneuropathy, unspecified
CPT/HCPCS: G0463

== ENCOUNTER 2024-08-23 08:51 | Day surgery (SDC) | payer OTHER, SELFPAY ==
--- OUTSIDE RECORDS SUMMARY | 2024-08-23 09:05 | XMS_ITS | CCD ---
Author Organization [facility] Care Team Providers Care Block Mason Name Role Phone PHYSICIAN, DEFAULT Unavailable Unavailable PHYSICIAN, DEFAULT Unavailable Unavailable PHYSICIAN, DEFAULT Unavailable Unavailable PHYSICIAN, DEFAULT Unavailable Unavailable AHMAD, SHOWKAT Unavailable Unavailable AHMAD, SHOWKAT Unavailable Unavailable MELVI BATRES Unavailable Unavailable MARY CANTU Unavailable Unavailable JAXON WILSON Unavailable Unavailable Romario Man Primary Care Provider [phone] Magda, Romario Bloom Primary Care Provider [phone] Romario Man MD Primary Care Provider MAGDA, ROMARIO Primary Care Physician [phone] MAGDA PROVIDER, ROMARIO Referring Unavailab Julian Kelly [...] ., DR JORDAN Admitting Unavailable NADERER, DR ORMARIO Waddell Primary Care Unavailable JULIANTREVON Consulting Unavailable MORGOS, DELFINO Consulting Unavailable GEMBUS, AMRY Consulting Unavailable NADERER, DR ROMARIO Waddell Primary [...] NADERER, DR ROMARIO Waddell Primary Care Unavailable DAVIDSON SHARP Consulting Unavailable LILA, DAVIDSON Admitting Unavailable DAVIDSON SHARP Attending Unavailable Unavailable Primary Care Provider UnavailRomario Maurer MD Primary Care Provider [phone] MARY JENNIE S Attending Unavailable HERNANDEZ, JENNIE S Referring Unavailable MARCELINAEREROMARIO Davis Primary Care Unavailable SIEGAL, SHAHEEN Attending Unavailable SIEGAL, SHAHEEN Referring Unavailable ROMARIO MAN Primary Care Unavailable SIEGAL, SHAHEEN Attending Unavailable SIEGAL, SHAHEEN Referring Unavailable ROMARIO MAN Primary Care Unavailable ROMARIO MAN Primary Care Unavailable SIEGAL, SHAHEEN Attending Unavailable SIEGAL, SHAHEEN Referring Unavailable HERNANDEZ, JENNIE S Referring Unavailable HERNANDEZ, JENNIE S Attending [facility], OTHER Primary Care Unavailable SELF, SELF Referring Unavailable HERNANDEZ, JENNIE S Attending Unavailable ROMARIO MAN Primary Care Unavailable SELF, SELF Referring Unavailable HERNANDEZ, JENNIE S Attending Unavailable NADEREROMARIO Davis Primary Care Unavailable HERNANDEZ, JENNIE S Referring Unavailable HERNANDEZ, JENNIE S Attending Unavailable ROMARIO MAN Primary [facility] Primary Care Unavailable SIEGAL, SHAHEEN Referring Unavailable SIEGAL, SHAHEEN Admitting Unavailable SIEGAL, SHAHEEN Attending Unavailable HERNANDEZ, JENNIE S Attending Unavailable HERNANDEZ, JENNIE S Referring Unavailable ROMARIO MAN Primary Care Unavailable Romario Man MD Primary Care Provider ROMARIO MAN Primary Care Unavailabl e FANY MOHR Consulting Unavailable IACOB KENDELL Admitting Unavailable IACOBSUMMERKENDELL Attending Unavailable NADIA FITZPATRICK Attending Unavailable ROMARIO MAN Primary Care Unavailabl e ROMARIO MAN Attending Unavailable HORANI, CASEY Referring Unavailable BRITTANY, SYDNEY T Referring Unavailable BRITTANY, SYDNEY T Referring Unavailable BRITTANY, SYDNEY T Referring Unavailable ELIEL MARIN Attending Unavailable LISA MAYA Attending Unavailable DAVIDSON SHARP Attending Unavailable HORANI, CASEY Admitting Unavailable ELIEL MARIN Referring Unavailable SYDNEY SOTO Attending Unavailable ELIEL MARIN Attending Unavailable SELF, SELF Referring Unavailable CASEY MOHR Attending Unavailable ROMARIO MAN Primary Care Unavailable JENNIE HERNANDEZ Referring Unavailable CASEY MOHR Attending Unavailable ROMARIO MAN Primary Care Unavailable MAGDA, ROMARIO Primary Care Unavailable AVITA OUTSIDE ORDER, OTHER Attending Unava ilable AVITA OUTSIDE ORDER, OTHER Referring Unava ilable Rolan DRUMMOND, Mo Pike Attending Unavailable Gibrodieitis , Mo Pike Attending Unavailable Rolan DRUMMOND, Mo Pike Attending Unavailable Allergies Allergy Classification Reported Allergen(s) Allergy Type Date of Onset Reaction(s) Facility (1 source) No Known Medication Allergies; Translations: [No Known Medication Allergies] Propensity to adverse reactions (disorder) [facility] Repository (1 source) ranolazine; Translations: [RANOLAZINE] Drug Allergy [address] [place] [address] Repository Medications Current Medications Medication Drug Class(es) Dates Sig (Normalized) Sig (Original) Acetaminophen (10 sources) Start: 12-30-2022 acetaminophen (TYLENOL) tablet 650 mg Start: 09-12-2019 take 2 tablets by mo [facility] every eight hours as needed for pain [...] take 1 tablet by alissa twice daily [place] 5/325 Tab 1 tab(s), Oral, BID, Refill(s) [...] BID, # 90 tab(s), Refills(s) 3, Pharmacy: [id number], 167.6, cm, 05/31/22 14:31:00 [...] Start: 12-30-2022 take 1 capsule by mo [facility] twice daily Pregabalin 50 MG capsule Take [...] 1 tablet by mouth once daily aspirin, [id number], tablet Take 1 tablet by mouth daily. Take 1 tablet (total dose= 81mg) by mouth daily. Return bottle(s) & unused medication at your next visit. Active take 1 tablet by alissa th once daily, then take 1 tablet by mouth once daily aspirin, [id number], tablet Take 1 tablet by mouth daily. [...] no relief after 1 dose, call 911. 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 CURRENT USE OF ASPIRIN] Onset: 07-01-2022 Episodic Other aftercare (1 source) Other intermediate (current) drug therapy; Translations: [OTH ASE CERTIFIED TECHNICIAN CURRENT DRUG THERAPY] Onset: 07-01-2022 Episodic [...] Resume Atorvastatin at 40 mg daily Normal [facility] Office Visiton 06-16-2024 Follow-up visit [id number] Dorothea Alva 1960 M [facility] Provider Department Center 06/16/2024 LISA ESTRADA VALENCIA Becker Family History Problem Relation Age of Onset Coronary artery disease Mother Coronary artery disease Father Family Status - Relation Status Age at Mother Father Level of Service:77621 MO OFFICE/OUTPATIENT ESTABLISHED MOD MDM 30 MIN [facility] 06-04-2024 36 PT INFORMED [facility] 06-01-2024 36 Post Discharge Call Good morning, I am Priscilla Padilla RN a lead nurse from [facility]. I am calling you to follow up [...] that now. RN attempted phone call at [facility] [employer]- Morphy message at this time. Patient Name Noel Alva Date 06/01/24 [facility] Telephoneon 06-01-2024 Telephone [id number] Dorothea Alva 1960 M [facility] Provider Department [place] 06/01/2024 PRISCILLA GALLARDO [facility] Family History Problem Relation Age of Onset Coronary artery disease Mother Coronary artery disease Father Family Status - Relation Status Age at Mother Father Reason for Visit and Comments: Hospital Follow-up [832] [facility] 05-31-2024 30 The patient is Moder ately Stable - Low risk of patient condition declining or worsening The patient's goals for the shift include rest and comfort The clinical goals for the shift include Discharge Barriers to progression include awaiting cath and Echo results Recommendations to address these barriers include waiting for results and discharge is everything looks good. [facility] 30 Daily Case Managemen t [...] PT Recommendations: OT Recommendations: New Consults: Normal [facility] ANESon 05-31-2024 ANES ------- Attestation signed by Jonn Connell MD at 05/31/2024 8:23 AM Jonn Connell MD, MPH, [facility], [facility], [facility] Interventional Cardiology Pager Email: [email or web address] Patient: Noel Vaca Artie Procedure Information Date/Time: 05/31/2430 Procedure: Coronary angiography Location: [facility] / [facility] (Cath) Providers: Jonn Connell [...] attending and fellow. Additional Equipment Requests Normal [facility] ANTI-XA (HEPARIN LEVEL)on HEPARIN UNFRACTIONATED (U/ML) IN PPP BY CHROMOGENIC METHOD 0.28 IU/mL Low 0.3-0.7 [facility] Comment on above: Result Comment: [place] roxaban and Apixaban will interfere with the anti Xa assay used to monitor UFH and LMWH. Performed By: #### L [id number] ####[facility] ([facility])[address] [place] [address] HEPARIN UNFRACTIONATED (U/ML) IN PPP BY CHROMOGENIC METHOD 0.29 IU/mL Low 0.3-0.7 [facility] Comment on above: Result Comment: [place] roxaban and Apixaban will interfere with the anti Xa assay used to monitor UFH and LMWH. Performed By: #### L [id number] ####[facility] ([facility])[address] [place] [address] CBCon 05-31-2024 Erythrocyte distribution width (RBC) [Ratio] 13.6 % Normal 11.5-15.0 [facility] Comment on above: Performed By: #### L [id number] ####[facility] ([facility])[address] [place] [address] ERYTHROCYTE MEAN CORPUSCULAR HEMOGLOBIN CONCENTRATION (G/DL) BY AUTOMATED 33.9 g/dL Normal 32.0-35.0 [facility] Comment on above: Performed By: #### L [id number] ####[facility] ([facility])[address] [place] [address] Hematocrit (Bld) [Volume fraction] 40.4 % Normal 39.0-55.0 [facility] Comment on above: Performed By: #### L [id number] ####[facility] ([facility])[address] [place] [address] Hemoglobin (Bld) [Mass/Vol] 13.7 g/dL Normal 13.0-17.0 [facility] Comment on above: Performed By: #### L [id number] ####[facility] ([facility])[address] [place] [address] MCH (RBC) [Entitic mass] 31.4 pg Normal 27.0-33.0 [facility] Comment on above: Performed By: #### L [id number] ####[facility] ([facility])[address] [place] [address] MCV (RBC) [Entitic vol] 92.7 fL Normal 82.0-98.0 [facility] Comment on above: Performed By: #### L [id number] ####[facility] ([facility])[address] [place] [address] PLATELETS (10*3/UL) IN BLOOD AUTOMATED COUNT 171 10*3/uL Normal 150-400 [facility] Comment on above: Performed By: #### L [id number] ####[facility] ([facility])[address] [place] [address] RBC (Bld) [#/Vol] 4.36 10*6/uL Normal 4.20-5.70 [facility] Comment on above: Performed By: #### L [id number] ####[facility] ([facility])[address] [place] [address] WBC (Bld) [#/Vol] 7.85 10*3/uL Normal 4.00-10.60 [facility] Comment on above: Performed By: #### L [id number] ####[facility] ([facility])[address] [place] [address] HPon 05-31-2024 HP ------- Attestation signed by Jonn Connell MD at 05/31/2024 8:23 AM Jonn Connell MD, MPH, FACC, [facility], [facility] Interventional Cardiology Pager Email: [email or web address] H&P reviewed. The patient was seen [...] he understands and wishes to proceed. Normal [facility] ANTI-XA (HEPARIN LEVEL)on HEPARIN UNFRACTIONATED (U/ML) IN PPP BY CHROMOGENIC METHOD 0.25 IU/mL Low 0.3-0.7 [facility] Comment on above: Result Comment: [place] roxaban and Apixaban will interfere with the anti Xa assay used to monitor UFH and LMWH. Performed By: #### L [id number] #### [facility] ([facility]) [address] [place] [address] HEPARIN UNFRACTIONATED (U/ML) IN PPP BY CHROMOGENIC METHOD 0.23 IU/mL Low 0.3-0.7 [facility] Comment on above: Result Comment: [place] roxaban and Apixaban will interfere with the anti Xa assay used to monitor UFH and LMWH. Performed By: #### L [id number] ####[facility] ([facility])[address] [place] [address] HEPARIN UNFRACTIONATED (U/ML) IN PPP BY CHROMOGENIC METHOD 0.22 IU/mL Low 0.3-0.7 [facility] Comment on above: Result Comment: [place] roxaban and Apixaban will interfere with the anti Xa assay used to monitor UFH and LMWH. Performed By: #### L [id number] ####[facility] ([facility])[address] [place] [address] BASIC METABOLIC PANELon 08-2 Anion gap [Moles/Vol] 12 mmol/L Normal 7-20 [facility] Comment on above: Performed By: #### L [id number] ####[facility] ([facility])[address] [place] [address] Calcium [Mass/Vol] 9.1 mg/dL Normal 8.6-10.3 [facility] Comment on above: Performed By: #### L [id number] ####[facility] ([facility])[address] [place] [address] Chloride [Moles/Vol] 101 mmol/L Normal 98-107 [facility] Comment on above: Performed By: #### L [id number] ####[facility] ([facility])[address] [place] [address] CO2 [Moles/Vol] 26 mmol/L Normal 21-31 [facility] Comment on above: Performed By: #### L [id number] ####[facility] ([facility])[address] [place] [address] Creatinine [Mass/Vol] 0.71 mg/dL Normal 0.70-1.30 [facility] Comment on above: Performed By: #### L [id number] ####[facility] ([facility])[address] [place] [address] GLOMERULAR FILTRATION RATE ML/MIN/1.73 SQ M.PREDICTED 103.1 mL/min/1.73m*2 Normal >60.0 [facility] Comment on above: Result Comment: The [facility]???s estimated glomerular filtration rate (eGFR) will no [...] of individuals. Performed By: #### L [id number] ####[facility] ([facility])[address] [place] [address] Glucose [Mass/Vol] 105 mg/dL High 70-100 [facility] Comment on above: Performed By: #### L [id number] ####[facility] ([facility])[address] [place] [address] Potassium [Moles/Vol] 4.1 mmol/L Normal 3.5-5.1 [facility] Comment on above: Performed By: #### L [id number] ####[facility] ([facility])[address] [place] [address] Sodium [Moles/Vol] 135 mmol/L Low 136-145 [facility] Comment on above: Performed By: #### L [id number] ####[facility] ([facility])[address] [place] [address] Urea nitrogen [Mass/Vol] 22 mg/dL Normal 7-25 [facility] Comment on above: Performed By: #### L [id number] ####[facility] ([facility])[address] [place] [address] UREA NITROGEN/CREATININE (MASS RATIO) IN SER/PLAS 31.0 Normal [facility] Comment on above: Performed By: #### L [id number] ####[facility] ([facility])[address] [place] [address] CBCon 05-30-2024 Erythrocyte distribution width (RBC) [Ratio] 13.8 % Normal 11.5-15.0 [facility] Comment on above: Performed By: #### L [id number] ####[facility] ([facility])[address] [place] [address] ERYTHROCYTE MEAN CORPUSCULAR HEMOGLOBIN CONCENTRATION (G/DL) BY AUTOMATED 32.7 g/dL Normal 32.0-35.0 [facility] Comment on above: Performed By: #### L [id number] ####[facility] ([facility])[address] [place] [address] Hematocrit (Bld) [Volume fraction] 43.1 % Normal 39.0-55.0 [facility] Comment on above: Performed By: #### L [id number] ####[facility] ([facility])[address] [place] [address] Hemoglobin (Bld) [Mass/Vol] 14.1 g/dL Normal 13.0-17.0 [facility] Comment on above: Performed By: #### L [id number] ####[facility] ([facility])[address] [place] [address] MCH (RBC) [Entitic mass] 31.5 pg Normal 27.0-33.0 [facility] Comment on above: Performed By: #### L [id number] ####[facility] ([facility])[address] [place] [address] MCV (RBC) [Entitic vol] 96.4 fL Normal 82.0-98.0 [facility] Comment on above: Performed By: #### L [id number] ####[facility] ([facility])[address] [place] [address] PLATELETS (10*3/UL) IN BLOOD AUTOMATED COUNT 181 10*3/uL Normal 150-400 [facility] Comment on above: Performed By: #### L [id number] ####[facility] ([facility])[address] [place] [address] RBC (Bld) [#/Vol] 4.47 10*6/uL Normal 4.20-5.70 [facility] Comment on above: Performed By: #### L [id number] ####[facility] ([facility])[address] [place] [address] WBC (Bld) [#/Vol] 7.33 10*3/uL Normal 4.00-10.60 [facility] Comment on above: Performed By: #### L [id number] ####[facility] ([facility])[address] [place] [address] MAGNESIUMon 05-30-2024 Magnesium [Mass/Vol] 1.8 mg/dL Low 1.9-2.7 [facility] Comment on above: Performed By: #### L [id number] ####[facility] ([facility])[address] [place] [address] 30on 05-29-2024 30 Problem: Pain - Adul [...] VSS, no chest pain, hemodynamically stable. Normal [facility] 30 The patient is Moder ately Stable [...] procedure to look for CA blockages. Normal [facility] ANTI-XA (HEPARIN LEVEL)on HEPARIN UNFRACTIONATED (U/ML) IN PPP BY CHROMOGENIC METHOD 0.33 IU/mL Normal 0.3-0.7 [facility] Comment on above: Order Comment: Check anti-Xa level every 6 hours while on heparin infusion, or per protocol. Result Comment: [place] roxaban and Apixaban will interfere with the anti Xa assay used to monitor UFH and LMWH. Performed By: #### L [id number] #### [facility] ([facility]) [address] [place] [address] HEPARIN UNFRACTIONATED (U/ML) IN PPP BY CHROMOGENIC METHOD 0.38 IU/mL Normal 0.3-0.7 [facility] Comment on above: Order Comment: Check anti-Xa level every 6 hours while on heparin infusion, or per protocol. Result Comment: [place] roxaban and Apixaban will interfere with the anti Xa assay used to monitor UFH and LMWH. Performed By: #### L [id number] #### [facility] ([facility]) [address] [place] [address] CBCon 05-29-2024 Erythrocyte distribution width (RBC) [Ratio] 14.0 % Normal 11.5-15.0 [facility] Comment on above: Performed By: #### L [id number] ####[facility] ([facility])[address] [place] [address] ERYTHROCYTE MEAN CORPUSCULAR HEMOGLOBIN CONCENTRATION (G/DL) BY AUTOMATED 34.0 g/dL Normal 32.0-35.0 [facility] Comment on above: Performed By: #### L [id number] ####[facility] ([facility])[address] [place] [address] Hematocrit (Bld) [Volume fraction] 42.0 % Normal 39.0-55.0 [facility] Comment on above: Performed By: #### L [id number] ####[facility] ([facility])[address] [place] [address] Hemoglobin (Bld) [Mass/Vol] 14.3 g/dL Normal 13.0-17.0 [facility] Comment on above: Performed By: #### L [id number] ####[facility] ([facility])[address] [place] [address] MCH (RBC) [Entitic mass] 31.5 pg Normal 27.0-33.0 [facility] Comment on above: Performed By: #### L [id number] ####[facility] ([facility])[address] [place] [address] MCV (RBC) [Entitic vol] 92.5 fL Normal 82.0-98.0 [facility] Comment on above: Performed By: #### L [id number] ####[facility] ([facility])[address] [place] [address] PLATELETS (10*3/UL) IN BLOOD AUTOMATED COUNT 177 10*3/uL Normal 150-400 [facility] Comment on above: Performed By: #### L [id number] ####[facility] ([facility])[address] [place] [address] RBC (Bld) [#/Vol] 4.54 10*6/uL Normal 4.20-5.70 [facility] Comment on above: Performed By: #### L [id number] ####[facility] ([facility])[address] [place] [address] WBC (Bld) [#/Vol] 6.44 10*3/uL Normal 4.00-10.60 [facility] Comment on above: Performed By: #### L [id number] ####[facility] ([facility])[address] [place] [address] CONSULTon 05-29-2024 CONSULT ------- Attestation signed by Kristian Palumbo [...] presented yesterday to the cardiology office in [place] reporting recurrent chest pain on exertion as [...] obtain an echocardiographic study Kristian Palumbo MD, [facility] Cardiology Consult Note Reason for Consult: Chest pain HPI: Noel Alva is a 63 y.o. male patient is presenting as a direct transfer from [facility]. Past medical history includes: CAD HTN HLD Patient saw Dr. Marin yesterday at [facility]. Patient reported that he has been experiencing intermittent diaphoresis episodes, worse with exertion, associated with mild chest pain responding to sublingual nitroglycerin. He mentioned it is similar to the symptoms he experienced when he had coronary artery disease stenting in 2005. Patient was sent to the ED at [place] for further workup. High sensitivity troponin level [...] disease, Hypertension, and PVD (peripheral vascular disease) ([facility]). Surgical History He has a past surgical [...] EC tab (more content not included)... Normal [facility] HAPTOGLOBINon 05-29-2024 Magnesium [Mass/Vol] 253 mg/dL High 26-164 [facility] Comment on above: Performed By: #### L [id number] #### [facility] ([facility]) [address] [place] [address] HPon 05-29-2024 HP ------- Attestation signed by [...] presented yesterday to the cardiology office in [place] reporting recurrent chest pain on exertion as [...] obtain an echocardiographic study Kristian Palumbo MD, [facility] Cardiology Consult Note Reason for Consult: Chest pain HPI: Noel Alva is a 63 y.o. male patient is presenting as a direct transfer from [facility]. Past medical history includes: CAD HTN HLD Patient saw Dr. Marin yesterday at [facility]. Patient reported that he has been experiencing intermittent diaphoresis episodes, worse with exertion, associated with mild chest pain responding to sublingual nitroglycerin. He mentioned it is similar to the symptoms he experienced when he had coronary artery disease stenting in 2005. Patient was sent to the ED at [place] for further workup. High sensitivity troponin level [...] disease, Hypertension, and PVD (peripheral vascular disease) ([facility]). Surgical History He has a past surgical [...] EC tab (more content not included)... Normal [facility] LACTATE DEHYDROGENASEon 05-07 LACTATE DEHYDROGENASE (U/L) IN SER/PLAS BY LAC->PYR RXN 166 U/L Normal 140-271 [facility] Comment on above: Performed By: #### L [id number] ####[facility] ([facility])[address] [place] [address] TROPONIN Ion 05-29-2024 Troponin I.cardiac [Mass/Vol] 0.02 ng/mL Normal 0.00-0.04 [facility] Comment on above: Performed By: #### L [id number] #### [facility] ([facility]) [address] [place] [address] Troponin I.cardiac [Mass/Vol] 0.01 ng/mL Normal 0.00-0.04 [facility] Comment on above: Performed By: #### L [id number] #### [facility] ([facility]) [address] [place] [address] Troponin I.cardiac [Mass/Vol] 0.01 ng/mL Normal 0.00-0.04 [facility] Comment on above: Performed By: #### L [id number] #### [facility] ([facility]) [address] [place] [address] TSH3 REFLEX TO FT4on 024 THYROTROPIN (MIU/L) IN SER/PLAS BY DETECTION LIMIT <= 0.05 MIU/L 2.12 mIU/L Normal 0.34-5.60 [facility] Comment on above: Performed By: #### L [id number] ####[facility] ([facility])[address] [place] [address] VITAMIN B12on 05-29-2024 Cobalamin (Vitamin B12) [Mass/Vol] 394 pg/mL Normal 180-914 [facility] Comment on above: Result Comment: REFE RENCE RANGES: 180-914 pg/mL Normal 145-179 pg/mL Indeterminate <145 pg/mL Deficient Performed By: #### L [id number] #### [facility] ([facility]) [address] [place] [address] 29on 05-28-2024 29 Addended by: ELIEL WORLEY on: 05/28/2024 09:55 AM Modules accepted: Orders Normal [facility] APTTon 05-28-2024 ACTIVATED PARTIAL THROMBOPLASTIN TIME IN PPP BY COAGULATION ASSAY 26.4 Seconds Normal 25.0-35.0 [facility] Comment on above: Order Comment: Basel ine aPTT before initiating heparin infusion. Result Comment: Clin ical significance of the APTT is questionable in the presence of heparin. Performed By: #### L [id number] #### [facility] ([facility]) [address] [place] [address] B-TYPE NATRIURETIC PEPTIDEon 05-28-2024 Natriuretic peptide B (Bld) [Mass/Vol] 73 pg/mL Normal 0-100 [facility] Comment on above: Performed By: #### L [id number] ####[facility] ([facility])[address] [place] [address] BASIC METABOLIC PANELon 05-07 Anion gap [Moles/Vol] 14 mmol/L Normal 7-20 [facility] Comment on above: Performed By: #### L [id number] #### [facility] ([facility]) [address] [place] [address] Calcium [Mass/Vol] 9.8 mg/dL Normal 8.6-10.3 [facility] Comment on above: Performed By: #### L [id number] #### [facility] ([facility]) [address] [place] [address] Chloride [Moles/Vol] 97 mmol/L Low 98-107 [facility] Comment on above: Performed By: #### L [id number] #### [facility] ([facility]) [address] [place] [address] CO2 [Moles/Vol] 29 mmol/L Normal 21-31 [facility] Comment on above: Performed By: #### L [id number] #### [facility] ([facility]) [address] [place] [address] Creatinine [Mass/Vol] 0.75 mg/dL Normal 0.70-1.30 [facility] Comment on above: Performed By: #### L [id number] #### [facility] ([facility]) [address] [place] [address] GLOMERULAR FILTRATION RATE ML/MIN/1.73 SQ M.PREDICTED 101.4 mL/min/1.73m*2 Normal >60.0 [facility] Comment on above: Result Comment: The [facility]???s estimated glomerular filtration rate (eGFR) will no [...] individuals. Performed By: #### L [id number] #### [facility] ([facility]) [address] [place] [address] Glucose [Mass/Vol] 109 mg/dL High 70-100 [facility] Comment on above: Performed By: #### L [id number] #### [facility] ([facility]) [address] [place] [address] Potassium [Moles/Vol] 3.6 mmol/L Normal 3.5-5.1 [facility] Comment on above: Performed By: #### L [id number] #### [facility] ([facility]) [address] [place] [address] Sodium [Moles/Vol] 136 mmol/L Normal 136-145 [facility] Comment on above: Performed By: #### L [id number] #### [facility] ([facility]) [address] [place] [address] Urea nitrogen [Mass/Vol] 20 mg/dL Normal 7-25 [facility] Comment on above: Performed By: #### L [id number] #### [facility] ([facility]) [address] [facility] [address] UREA NITROGEN/CREATININE (MASS RATIO) IN SER/PLAS 26.7 Normal [facility] Comment on above: Performed By: #### L [id number] #### [facility] ([facility]) [address] [place] [address] CBCon 05-28-2024 Erythrocyte distribution width (RBC) [Ratio] 14.2 % Normal 11.5-15.0 [facility] Comment on above: Performed By: #### L [id number] #### [facility] ([facility]) [address] [place] [address] ERYTHROCYTE MEAN CORPUSCULAR HEMOGLOBIN CONCENTRATION (G/DL) BY AUTOMATED 33.6 g/dL Normal 32.0-35.0 [facility] Comment on above: Performed By: #### L [id number] #### [facility] ([facility]) [address] [place] [address] Hematocrit (Bld) [Volume fraction] 45.8 % Normal 39.0-55.0 [facility] Comment on above: Performed By: #### L [id number] #### [facility] ([facility]) [address] [place] [address] Hemoglobin (Bld) [Mass/Vol] 15.4 g/dL Normal 13.0-17.0 [facility] Comment on above: Performed By: #### L [id number] #### [facility] ([facility]) [address] [facility] [address] MCH (RBC) [Entitic mass] 31.2 pg Normal 27.0-33.0 [facility] Comment on above: Performed By: #### L [id number] #### [facility] ([facility]) [address] [place] [address] MCV (RBC) [Entitic vol] 92.9 fL Normal 82.0-98.0 [facility] Comment on above: Performed By: #### L [id number] #### [facility] ([facility]) [address] [place] [address] PLATELETS (10*3/UL) IN BLOOD AUTOMATED COUNT 197 10*3/uL Normal 150-400 [facility] Comment on above: Performed By: #### L [id number] #### [facility] ([facility]) [address] [place] [address] RBC (Bld) [#/Vol] 4.93 10*6/uL Normal 4.20-5.70 [facility] Comment on above: Performed By: #### L [id number] #### [facility] ([facility]) [address] [place] [address] WBC (Bld) [#/Vol] 6.33 10*3/uL Normal 4.00-10.60 [facility] Comment on above: Performed By: #### L [id number] #### [facility] ([facility]) [address] [place] [address] HEMOGLOBIN A1Con 05-28-2024 Glucose [Mass/Vol] 123 mg/dL Normal [facility] Comment on above: Performed By: #### L [id number] #### [facility] ([facility]) [address] [place] [address] HbA1c (Bld) [Mass fraction] 5.9 % Normal 4.0-6.0 [facility] Comment on above: Performed By: #### L [id number] #### [facility] ([facility]) [address] [place] [address] LIPID PANELon 05-28-2024 CHOL/HDL 2.5 mg/dL Normal [facility] Comment on above: Performed By: #### L [id number] #### [facility] ([facility]) [address] [place] [address] Cholesterol [Mass/Vol] 142 mg/dL Normal 120-200 [facility] Comment on above: Performed By: #### L [id number] #### [facility] ([facility]) [address] [place] [address] Magnesium [Mass/Vol] 109 mg/dL Normal 40-149 [facility] Comment on above: Result Comment: TRIG LYCERIDE REFERENCE RANGE: 20 YEARS AND OLDER CARDIOVASCULAR RISK LESS THAN 150 mg/dL LOW RISK 150 TO 199 mg/dL BORDERLINE RISK 200 mg/dL AND GREATER HIGH RISK Performed By: #### L [id number] #### [facility] ([facility]) [address] [place] [address] Magnesium [Mass/Vol] 64 mg/dL Normal 0-160 [facility] Comment on above: Performed By: #### L [id number] #### [facility] ([facility]) [address] [place] [address] Magnesium [Mass/Vol] 56 mg/dL Normal 23-92 [facility] Comment on above: Performed By: #### L [id number] #### [facility] ([facility]) [address] [place] [address] NON HDL CHOL. (LDL+VLDL) 86 Normal [facility] Comment on above: Performed By: #### L [id number] #### [facility] ([facility]) [address] [place] [address] TOTAL VLDL-C 22 mg/dL Normal 0-40 [facility] Comment on above: Performed By: #### L [id number] #### [facility] ([facility]) [address] [place] [address] MAGNESIUMon 05-28-2024 Magnesium [Mass/Vol] 2.1 mg/dL Normal 1.9-2.7 [facility] Comment on above: Performed By: #### L [id number] #### [facility] ([facility]) [address] [place] [address] Office Visiton 05-28-2024 Follow-up visit [id number] Dorothea Alva L 1960 M Date Provider Department Center 05/28/2024 ELIEL ECKERT Family History Problem Relation Age of Onset Coronary artery disease Mother Coronary artery disease Father Family Status - Relation Status Age at Mother Father Level of Service:73002 MO OFFICE/OUTPATIENT ESTABLISHED HIGH MDM 40 MIN Normal [facility] POCT GLUCOSE METER UNSOLICIT ED RESULTSon 05-28-2024 Glucose [Mass/Vol] 145 mg/dL High 70-105 [facility] Comment on above: Order Comment: Check anti-Xa level every 6 hours while on heparin infusion, or per protocol. Result Comment: jose juan swift Performed By: #### L [id number] #### [facility] ([facility]) [address] [place] [address] TROPONIN Ion 05-28-2024 Troponin I.cardiac [Mass/Vol] 0.01 ng/mL Normal 0.00-0.04 [facility] Comment on above: Performed By: #### L [id number] #### [facility] ([facility]) [address] [facility] [place] [address] Office Visiton 02-11-2024 Follow-up visit [id number] Dorothea Alva 1960 M Date Provider Department Center 02/11/2024 ELIEL ECKERT Family History Problem Relation Age of Onset Coronary artery disease Mother Coronary artery disease Father Family Status - Relation Status Age at Mother Father Level of Service:90321 MO OFFICE/OUTPATIENT ESTABLISHED MOD MDM 30 MIN Normal [facility] COVID-19, Rapidon 2023 SARS-CoV-2 (COVID-19) RdRp gene DAHLIA+probe Ql (Resp) Not detected Not Detected [facility] Comment on above: Rapid NAAT: [...] management decisions. Fact sheet for Healthcare Providers: https://www.fda.gov/media/699271/download Fact sheet for Patients: https://www.fda.gov/media/394689/download Methodology: Isothermal Nucleic Acid Amplification Specimen Description .NASOPHARYNGEAL SWAB [facility] Flu A/B Ag Detectionon 10-10 Flu A Ag Detection Negative Normal NEG [facility] Comment on above: Result Comment: for Influenza A Antigen Performed By: #### F NATALYA #### [address] [place] [address] Supervisor Underwriting Clerks: Luis Carlos Del Castillo MD Flu B Ag Detection Negative Normal NEG [facility] Comment on above: Result Comment: for Influenza B Antigen. Performed By: #### F LUABA #### [address] [place] [address] Supervisor Underwriting Clerks: Luis Carlos Del Castillo MD Rapid influenza A/B antigens on 2023 FLUAV Ag Ql (Unsp spec) Negative NEGATIVE [facility] Comment on above: for Influenza A Anti gen FLUBV Ag Ql (Unsp spec) Negative NEGATIVE [facility] Comment on above: for Influenza B Anti gen. [facility] [id number] 2023 SARS-CoV-2 (COVID-19) RNA DAHLIA+probe Ql (Unsp spec) Not detected Normal NOTDET [facility] Comment on above: Result Comment: [...] management decisions. Fact sheet for Healthcare Providers: https://www.fda.gov/media/687888/download Fact sheet for Patients: https://www.fda.gov/media/755270/download Methodology: Isothermal Nucleic Acid Amplification Performed By: #### C OVRB #### [facility] [address] [place] [address] Supervisor Underwriting Clerks: Luis Carlos Del Castillo MD XR CHEST [...] Nav Hudson MD 10/10/23 Final result Normal [facility] Documentationon 09-18-2023 Documentation [id number] Dorothea Alva 1960 M Date Provider Department Center 09/18/2023 JuliannaDAVIDSON SHARP [facility] Family History Problem Relation Age of Onset Coronary artery disease Mother Coronary artery disease Father Family Status - Relation Status Age at Mother Father Normal [facility] CBCon 09-09-2023 ABSOLUTE BAS 0.1 10*3/uL Normal 0.0-0.2 [facility] ABSOLUTE EOS 0.1 10*3/uL Normal 0.0-0.7 [facility] ABSOLUTE NEUTROPHIL COUNT 7.0 10*3/uL High [...] (Bld) [Entitic vol] 7.8 fL Normal 7.4-11.0 [facility] Platelets (Bld) [#/Vol] 195 10*3/uL Normal 130-400 [...] Hospital Bilirubin [Mass/Vol] 0.7 mg/dL Normal 0.2-1.3 [facility] Calcium [Mass/Vol] 9.5 mg/dL Normal 8.4-10.2 [facility] Chloride [Moles/Vol] 105 mmol/L Normal 98-107 [facility] Comment on above: Result Comment: Gilma medellin note: Triglyceride levels of 600mg/dL or higher may positively bias chloride results by approximately 2.1 mmol CO2 [Moles/Vol] 27 mmol/L Normal 22-30 [facility] Creatinine [Mass/Vol] 0.60 mg/dL Low 0.7-1.2 [facility] EST. GFR, 176 ml/min/1.73sq.m Normal [facility] EST. GFR,Non 145 ml/min/1.73sq.m [facility] GFR Information Average GFR for 60-6 9 years old = 85. Normal [facility] Comment on above: Result Comment: Nitro Worker isaiah Kidney disease, GFR = <60. Kidney [...] AND/OR ASPIRATIONon 08-13-2023 Radiology Study observation (narrative) [facility] Office Visiton 08-13-2023 Follow-up visit [id number] Dorothea Alva 1960 M Provider Department Center 08/13/2023 DAVIDSON HOWELL VALENCIA Becker Family History Problem Relation Age of Onset Coronary artery disease Mother Coronary artery disease Father Family Status - Relation Status Age at Mother Father Level of Service:68649 MO OFFICE/OUTPATIENT ESTABLISHED MOD MDM 30-39 MIN Reason for Visit and Comments: Coronary Artery Disease [187] Chest Pain [475506] Pre-op Exam [901098] Hyperlipidemia [182] Hypertension [506149] Normal [facility] Orders Onlyon 08-13-2023 Orders Only [id number] Dorothea Alva L 1960 Provider Department Center 08/13/2023 ADA BALTAZAR VALENCIA Becker Family History Problem Relation Age of Onset Coronary artery disease Mother Coronary artery disease Father Family Status - Relation Status Age at Mother Father Normal [facility] 36on 08-03-2023 36 Patient will need an appointment for further refills - thanks ! Normal [facility] LARGE JOINT/BURSA INJECTION AND/OR ASPIRATIONon 07-16-2023 Eric [...] fashion. The patient was prepped with Chloraprep. [facility] [place] Unspecified body regionon 07-16-2023 Image Storage This order is to facilitate the storage of the image. [facility] LARGE JOINT/BURSA INJECTION AND/OR ASPIRATIONon 06-17-2023 Radiology Study observation (narrative) [facility] LARGE JOINT/BURSA INJECTION AND/OR ASPIRATIONon [...] fashion. The patient was prepped with Chloraprep. [facility] US Unspecified body regionon 06-10-2023 Image Storage This order is to facilitate the storage of the image. [facility] LARGE JOINT/BURSA INJECTION AND/OR ASPIRATIONon 05-15-2023 Radiology Study observation (narrative) [facility] LARGE JOINT/BURSA INJECTION AND/OR ASPIRATIONon [...] fashion. The patient was prepped with Chloraprep. [employer] [place] Unspecified body regionon 04-18-2023 Image Storage This order is to facilitate the storage of the image. [facility] XR HIPS KOURTNEY 5V W PELVISon XR [...] CARLOS ENCARNACION Date: 2023-01-08 13:57 Normal [facility] XR LSPINE W_OBLS AND FLEX_EX Ton 01-08-2023 [...] LUIS CARLOS ENCARNACION Date: 2023-01-08 14:00 Normal [facility] Hemoglobin A1Con 01-01-2023 Glucose [Mass/Vol] 114 mg/dL Normal [facility] Comment on above: Result Comment: The ADA and AACC recommend providing the estimated average glucose result to permit better patient understanding of their HBA1c result. Performed By: #### L IPR #### [facility] [employer] [address] [place] [address] Supervisor Underwriting Clerks: Marshall Paulino MD HbA1c (Bld) [Mass fraction] 5.6 % Normal 4.0-6.0 [facility] Comment on above: Performed By: #### L IPR #### [facility] [employer] [address] [place] [address] Supervisor Underwriting Clerks: Marshall Paulino MD Basic Metab w/rfx MGon 12-31 Anion gap [Moles/Vol] 9 mmol/L Normal 9-17 [facility] Comment on above: Performed By: #### T ROPI, CDP, BMPX #### [facility] [address] [place] [address] Supervisor Underwriting Clerks: Luis Carlos Del Castillo MD #### GLYHGB #### [facility] [address] [place] [address] Supervisor Underwriting Clerks: Marshall Paulino MD BUN/CRE Ratio 39 High 9-20 [facility] Comment on above: Performed By: #### T ROPI, CDP, BMPX #### [facility] [address] [place], [place] [address] Supervisor Underwriting Clerks: Luis Carlos Del Castillo MD #### GLYHGB #### [address] [address] Supervisor Underwriting Clerks: Marshall Paulino MD Calcium [Mass/Vol] 9.5 mg/dL Normal 8.6-10.4 [facility] Comment on above: Performed By: #### T ROPI, CDP, BMPX #### [facility] [address] [place], [place] [address] Supervisor Underwriting Clerks: Luis Carlos Del Castillo MD #### GLYHGB #### [address] [address] Supervisor Underwriting Clerks: Marshall Paulino MD Chloride [Moles/Vol] 106 mmol/L Normal 98-107 [facility] Comment on above: Performed By: #### T ROPI, CDP, BMPX #### [facility] [address] [place], [place] [address] Supervisor Underwriting Clerks: Luis Carlos Del Castillo MD #### GLYHGB #### [address] [address] Supervisor Underwriting Clerks: Marshall Paulino MD CO2 [Moles/Vol] 25 mmol/L Normal 20-31 [facility] Comment on above: Performed By: #### T ROPI, CDP, BMPX #### [facility] [address] [place], [place] [address] Supervisor Underwriting Clerks: Luis Carlos Del Castillo MD #### GLYHGB #### [address] [id number] Supervisor Underwriting Clerks: Marshall Paulino MD Creatinine [Mass/Vol] 0.70 mg/dL Normal 0.70-1.20 [facility] Comment on above: Performed By: #### T GEE ALONZO, BMPX #### [facility] [address] [place], [place] [address] Supervisor Underwriting Clerks: Luis Carlos Del Castillo MD #### GLYHGB #### [address] [id number] Supervisor Underwriting Clerks: Marshall Paulino MD GFR/1.73 sq M.predicted among non-blacks MDRD (S/P/Bld) [Vol rate/Area] mL/min/{1.73_m2} Normal >60 [facility] Comment on above: Result Comment: [...] By: #### T GEE ALONZO BMPX #### [address] [place], [place] [address] Supervisor Underwriting Clerks: Luis Carlos Del Castillo MD #### GLYHGB #### [address] [address] Supervisor Underwriting Clerks: Marshall Paulino MD Glucose [Mass/Vol] 103 mg/dL High 70-99 [facility] Comment on above: Performed By: #### T GEE ALONZO BMPX #### [address] [place], [place] [address] Supervisor Underwriting Clerks: Luis Carlos Del Castillo MD #### GLYHGB #### [address] [address] Supervisor Underwriting Clerks: Marshall Paulino MD Potassium [Moles/Vol] 4.3 mmol/L Normal 3.7-5.3 [facility] Comment on above: Performed By: #### GEE ESPAÑA, BMPX #### [facility] [address] [place] [address] Supervisor Underwriting Clerks: Luis Carlos Del Castillo MD #### GLYHGB #### [place] [address] [place], [place] [address] Supervisor Underwriting Clerks: Marshall Paulino MD Sodium [Moles/Vol] 140 mmol/L Normal 135-144 [facility] Comment on above: Performed By: #### GEE ESPAÑA, BMPX #### [facility] [address] [place] [address] Supervisor Underwriting Clerks: Luis Carlos Del Castillo MD #### GLYHGB #### [place] [address] [place], [place] 6955[address] Supervisor Underwriting Clerks: Marshall Paulino MD Urea nitrogen [Mass/Vol] 27 mg/dL High 8-23 [facility] Comment on above: Performed By: #### GEE ESPAÑA, BMPX #### [facility] [address] [place] [address] Supervisor Underwriting Clerks: Luis Carlos Del Castillo MD #### GLYHGB #### [address] [phone] Supervisor Underwriting Clerks: Marshall Paulino MD Basic Metabolic Panel w/ Ref maria antonia to MGon 12-31-2022 Anion gap [Moles/Vol] 9 mmol/L 9 - 17 mmol/L [facility] Calcium [Mass/Vol] 9.5 mg/dL 8.6 - 10. 4 mg/dL [facility] Chloride [Moles/Vol] 106 mmol/L 98 - 10 7 mmol/L [facility] CO2 [Moles/Vol] 25 mmol/L 20 - 31 mmol/L [facility] Creatinine [Mass/Vol] 0.7 mg/dL 0.70 - 1.20 mg/dL [facility] [employer] GFR/1.73 sq M.predicted MDRD (S/P/Bld) [Vol rate/Area] - PINF [facility] [employer] Comment on above: These results are not [...] 99 mg/dL [facility] [employer] Interpretation and review of laboratory results Abnormal [facility] [employer] Potassium [Moles/Vol] 4.3 mmol/L 3.7 - 5.3 mmol/L [facility] [employer] Sodium [Moles/Vol] 140 mmol/L 135 - 144 mmol/L [facility] [employer] Urea nitrogen [Mass/Vol] 27 mg/dL High 8 - 23 mg/dL [facility] [employer] Urea nitrogen/Creatinine (Bld) [Mass ratio] 39 High 9 - 20 [facility] [employer] CARDIAC STRESS TESTon 2022 CARDIAC STRESS TEST [place] [id number] CARDIAC STRESS TEST PATIENT NAME: NOEL ALVA : 1960 MED REC NO: [id number] ROOM: [facility]7 ACCOUNT NO: [id number] ADMIT DATE: 12/30/2022 PROVIDER: Fany Mohr MD [...] MIRIAN/BILLY_LUCIAN Doc#: Unknown CC: Romario Man Normal [facility] CBC with Auto Differentialon 12-31-2022 Absolute Eos # 0.18 [place] [facility] Absolute Immature Granulocyte [facility] Absolute Lymph # 1.58 [facility] Absolute Lynn # 0.72 [facility] RS [facility] Basophils (Bld) [#/Vol] 0.05 10*3/uL [facility] Interpretation and review of laboratory results Abnormal [facility] NRBC Automated 0.0 0.0 per 100 WBC [facility] Platelet distribution width (Bld) [Ratio] 13.9 % 11.8 - 14.4 % [facility] Segmented neutrophils/100 WBC (Bld) 62 % 36 - 65 % [facility] Segs Absolute 4.27 [facility] CBC with Diffon 12-31-2022 Abs. Basophil 0.05 k/uL Normal 0.00-0.20 [facility] Comment on above: Performed By: #### T GEE ALONZO, BMPX #### [facility] [address] [place] [address] Supervisor Underwriting Clerks: Luis Carlos Del Castillo MD #### GLYHGB #### [facility] [address] [place] [address] Supervisor Underwriting Clerks: Marshall Paulino MD Abs.Imm.Granulocyte <0.03 Normal 0.00-0.30 [facility] Comment on above: Performed By: #### T GEE ALONZO, BMPX #### [facility] [place] [phone] Supervisor Underwriting Clerks: Luis Carlos Del Castillo MD #### GLYHGB #### [place] [phone] Supervisor Underwriting Clerks: Marshall Paulino MD Abs.Neutrophil (Seg) 4.27 k/uL Normal 1.50-8.10 [facility] Comment on above: Performed By: #### T GEE ALONZO, BMPX #### [address] [place] [phone] Supervisor Underwriting Clerks: Luis Carlos Del Castillo MD #### GLYHGB #### [place] [phone] Supervisor Underwriting Clerks: Marshall Paulino MD Eosinophils (Bld) [#/Vol] 0.18 10*3/uL Normal 0.00-0.44 [facility] Comment on above: Performed By: #### T GEE ALONZO, BMPX #### [address] [place] [phone] Supervisor Underwriting Clerks: Luis Carlos Del Castillo MD #### GLYHGB #### [place] [address] Supervisor Underwriting Clerks: Marshall Paulino MD Erythrocyte distribution width (RBC) [Ratio] 13.9 % Normal 11.8-14.4 [facility] Comment on above: Performed By: #### T GEE ALONZO, BMPX #### [address] [place] [phone] Supervisor Underwriting Clerks: Luis Carlos Del Castillo MD #### GLYHGB #### [place] [phone] Supervisor Underwriting Clerks: Marshall Paulino MD Lymphocytes (Bld) [#/Vol] 1.58 10*3/uL Normal 1.10-3.70 [facility] Comment on above: Performed By: #### T GEE ALONZO, BMPX #### [facility] [address] [place], [place] [id number] Supervisor Underwriting Clerks: Luis Carlos Del Castillo MD #### GLYHGB #### [address] [id number] Supervisor Underwriting Clerks: Marshall Paulino MD Monocytes (Bld) [#/Vol] 0.72 10*3/uL Normal 0.10-1.20 [facility] Comment on above: Performed By: #### T ROPLiane, CDP, BMPX #### [facility] [address] [place] [address] Supervisor Underwriting Clerks: Luis Carlos Del Castillo MD #### GLYHGB #### [address] [id number] Supervisor Underwriting Clerks: Marshall Paulino MD Neutrophil (Seg) 62 % Normal 36-65 [facility] Comment on above: Performed By: #### T CHERI, CDP, BMPX #### [facility] [address] [place] [address] [place] [place], [place] [id number] Supervisor Underwriting Clerks: Luis Carlos Del Castillo MD #### GLYHGB #### [address] [address] Supervisor Underwriting Clerks: Marshall Paulino MD NRBC Automated 0.0 per 100 WBC Normal 0.0 [facility] Comment on above: Performed By: #### T CHERI, CDP, BMPX #### [facility] [address] [place], [place] [id number] Supervisor Underwriting Clerks: Luis Carlos Del Castillo MD #### GLYHGB #### [address] [phone] Supervisor Underwriting Clerks: Marshall Paulino MD Basophils/100 WBC (Bld) 1 % Normal 0-2 [facility] Comment on above: Performed By: #### T CHERI, CDP, BMPX #### [address] [place] [address] Supervisor Underwriting Clerks: Luis Carlos Del Castillo MD #### GLYHGB #### [address] [phone] Supervisor Underwriting Clerks: Marshall Paulino MD Eosinophils/100 WBC (Bld) 3 % Normal 1-4 [facility] Comment on above: Performed By: #### T CHERI CDP, BMPX #### [address] [place] [phone] Supervisor Underwriting Clerks: Luis Carlos Del Castillo MD #### GLYHGB #### [place] [phone] Supervisor Underwriting Clerks: Marshall Paulino MD Hematocrit (Bld) [Volume fraction] 40.4 % Low 40.7-50.3 [facility] Comment on above: Performed By: #### GEE ESPAÑA, BMPX #### [address] [place] [phone] Supervisor Underwriting Clerks: Luis Carlos Del Castillo MD #### GLYHGB #### [place] [phone] Supervisor Underwriting Clerks: Marshall Paulino MD Hemoglobin (Bld) [Mass/Vol] 13.5 g/dL Normal 13.0-17.0 [facility] Comment on above: Performed By: #### T CHERI CDP, BMPX #### [address] [place] [phone] Supervisor Underwriting Clerks: Luis Carlos Del Castillo MD #### GLYHGB #### [address] [address] Supervisor Underwriting Clerks: Marshall Paulino MD Immature granulocytes/100 WBC (Bld) 0 % Normal 0 [facility] Comment on above: Performed By: #### T CHERI CDP, BMPX #### [address] [place] [address] Supervisor Underwriting Clerks: Luis Carlos Del Castillo MD #### GLYHGB #### [place] [address] [place] [address] Supervisor Underwriting Clerks: Marshall Paulino MD Lymphocytes/100 WBC (Bld) 23 % Low 24-43 [facility] Comment on above: Performed By: #### T GEE ALONZO, BMPX #### [address] [place] [address] Supervisor Underwriting Clerks: Luis Carlos Del Castillo MD #### GLYHGB #### [place] [address]16215 [place] [phone] Supervisor Underwriting Clerks: Marshall Paulino MD MCH (RBC) [Entitic mass] 31.2 pg Normal 25.2-33.5 [facility] Comment on above: Performed By: #### GEE ESPAÑA, BMPX #### [address] [place] [address] Supervisor Underwriting Clerks: Luis Carlos Del Castillo MD #### GLYHGB #### [place] [phone] Supervisor Underwriting Clerks: Marshall Paulino MD MCHC (RBC) [Mass/Vol] 33.4 g/dL Normal 28.4-34.8 [facility] Comment on above: Performed By: #### T CHERI CDP, BMPX #### [address] [place] [address] Supervisor Underwriting Clerks: Luis Carlos Del Castillo MD #### GLYHGB #### [place] [id number] [place] [address] Supervisor Underwriting Clerks: Marshall Paulino MD MCV (RBC) [Entitic vol] 93.3 fL Normal 82.6-102.9 [facility] Comment on above: Performed By: #### GEE ESPAÑA, BMPX #### [address] [place], [place] [id number] Supervisor Underwriting Clerks: Luis Carlos Del Castillo MD #### GLYHGB #### [address] [phone] Supervisor Underwriting Clerks: Marshall Paulino MD Monocytes/100 WBC (Bld) 11 % Normal 3-12 [facility] Comment on above: Performed By: #### T GEE ALONZO, BMPX #### [address] [place] [phone] Supervisor Underwriting Clerks: Luis Carlos Del Castillo MD #### GLYHGB #### [place] [address] Supervisor Underwriting Clerks: Marshall Paulino MD Platelet mean volume (Bld) [Entitic vol] 10.1 fL Normal 8.1-13.5 [facility] Comment on above: Performed By: #### T GEE ALONZO, BMPX #### [address] [place] [phone] Supervisor Underwriting Clerks: Luis Carlos Del Castillo MD #### GLYHGB #### [place] [phone] Supervisor Underwriting Clerks: Marshall Paulino MD Platelets (Bld) [#/Vol] 190 10*3/uL Normal 138-453 [facility] Comment on above: Performed By: #### T GEE ALONZO, BMPX #### [address] [place] [address] Supervisor Underwriting Clerks: Luis Carlos Del Castillo MD #### GLYHGB #### [address] [phone] Supervisor Underwriting Clerks: Marshall Paulino MD RBC (Bld) [#/Vol] 4.33 10*6/uL Normal 4.21-5.77 [facility] Comment on above: Performed By: #### T GEE ALONZO, BMPX #### [facility] [address] [place] [address] Supervisor Underwriting Clerks: Luis Carlos Del Castillo MD #### GLYHGB #### [facility] [address] [place], [place] [phone] Supervisor Underwriting Clerks: Marshall Paulino MD WBC (Bld) [#/Vol] 6.8 10*3/uL Normal 3.5-11.3 [facility] [employer] Comment on above: Performed By: #### T GEE ALONZO, BMPX #### [facility] [address] [place] [address] Supervisor Underwriting Clerks: Luis Carlos Del Castillo MD #### GLYHGB #### [facility] [address] [place] [address] Supervisor Underwriting Clerks: Marshall Paulino MD EKG 12 leadon 12-31-2022 Atrial Rate 51 BPM [employer] Work Phone: P [place] 51 degrees [facility] [employer] Work Phone: P-R Interval 144 ms [employer] Phone: Q-T Interval 490 ms [employer] Phone: QRS Duration 72 ms [employer] Work Phone: QTc Calculation (Bazett) 451 ms [employer] Phone: R [place] 47 degrees [employer] Phone: T [place] 91 degrees [employer] Phone: Ventricular Rate 51 BPM [employer] [facility] [employer] Work Phone: Sinus bradycardia T wave abnormality, consider lateral ischemia Abnormal ECG When compared with ECG of 30-DEC-2022 06:16, Inverted T waves have replaced nonspecific T wave abnormality in Anterior leads QT has lengthened Confirmed by Fany Mohr MD ([id number]) on 12/31/2022 1:07:24 PM [facility] Fany Mohr MD - 12/31/2022 Sinus bradycardia T wave abnormality, consider lateral ischemia Abnormal ECG When compared with ECG of 30-DEC-2022 06:16, Inverted T waves have replaced nonspecific T wave abnormality in Anterior leads QT has lengthened Confirmed by Fany Mohr MD ([id number]) on 12/31/2022 1:07:24 PM [facility] Work Phone: [facility] Work Phone: EKG Rhythm Stripon 3 [facility] Lipid Panelon 12-31-2022 Cholesterol [Mass/Vol] 103 mg/dL NINF - 200 mg/dL [facility] Comment on above: Cholesterol Guidelines: <200 Desirable 200-240 Borderline >240 Undesirable Cholesterol in HDL [Mass/Vol] 44 mg/dL 40 - PINF mg/dL [facility] Comment on above: HDL Guidelines: <40 Undesirable 40-59 Borderline >59 Desirable Cholesterol in LDL [Mass/Vol] 46 mg/dL 0 - 130 mg/dL [facility] Comment on above: LDL Guidelines: <100 Desirable 100-129 Near to/above Desirable 130-159 Borderline >159 Undesirable Direct (measured) LDL and calculated LDL are not interchangeable tests. Cholesterol.total/Ch olesterol in HDL [Mass ratio] 2.3 {ratio} NINF - 5 [facility] Triglyceride [Mass/Vol] 67 mg/dL NINF - 150 mg/dL [facility] Comment on above: Triglyceride Guidelines: <150 Desirable 150-199 Borderline 200-499 High >499 Very high Based on AHA Guidelines for fasting triglyceride, July 2012. [facility] Lipid Profileon 12-31-2022 Cholesterol [Mass/Vol] 103 mg/dL Normal <200 [facility] Comment on above: Result Comment: Cholesterol Guidelines: <200 Desirable 200-240 Borderline >240 Undesirable Performed By: #### L IPR #### [address] [address] Supervisor Underwriting Clerks: Marshall Paulino MD Cholesterol in HDL [Mass/Vol] 44 mg/dL Normal >40 [facility] Comment on above: Result Comment: HDL Guidelines: <40 Undesirable 40-59 Borderline >59 Desirable Performed By: #### L IPR #### [address] [address] Supervisor Underwriting Clerks: Marshall Paulino MD Cholesterol in LDL [Mass/Vol] 46 mg/dL Normal 0-130 [facility] Comment on above: Result Comment: LDL Guidelines: <100 Desirable 100-129 Near to/above Desirable 130-159 Borderline >159 Undesirable Direct (measured) LDL and calculated LDL are not interchangeable tests. Performed By: #### L IPR #### [address] [address] Supervisor Underwriting Clerks: Marshall Paulino MD Cholesterol.total/Ch olesterol in HDL [Mass ratio] 2.3 {ratio} Normal <5 [facility] Comment on above: Performed By: #### L IPR #### [address] [address] Supervisor Underwriting Clerks: Marshall Paulino MD Triglyceride [Mass/Vol] 67 mg/dL Normal <150 [facility] Comment on above: Result Comment: Triglyceride Guidelines: <150 Desirable 150-199 Borderline 200-499 High >499 Very high Based on AHA Guidelines for fasting triglyceride, July 2012. Performed By: #### L IPR #### [facility] [employer] [address] [place] [address] Supervisor Underwriting Clerks: Marshall Paulino MD Resp Viral Panelon 3 Adenovirus Not detected Normal [facility] Comment on above: Performed By: #### L IPR #### [address] [address] Supervisor Underwriting Clerks: Marshall Paulino MD Bordet.parapertussis Not detected Normal [facility] Comment on above: Performed By: #### L IPR #### [facility] [employer] [address] [place] [address] Supervisor Underwriting Clerks: Marshall Paulino MD Bordetella pertussis Not detected Normal [facility] Comment on above: Performed By: #### L IPR #### [facility] [employer] [address] [place] [address] Supervisor Underwriting Clerks: Marshall Paulino MD Chlamyd.pneumoniae Not detected Normal [facility] Comment on above: Performed By: #### L IPR #### [facility] [employer] [address] [place] [address] Supervisor Underwriting Clerks: Marshall Paulino MD Coronavirus 229E Not detected [facility] Comment on above: Performed By: #### L IPR #### [facility] [employer] [address] [place] [address] Supervisor Underwriting Clerks: Marshall Paulino MD Coronavirus HKU1 Not detected Normal [facility] Comment on above: Performed By: #### L IPR #### [facility] [employer] [address] [place] [address] Supervisor Underwriting Clerks: Marshall Paulino MD Coronavirus NL63 Not detected [facility] Comment on above: Performed By: #### L IPR #### [facility] [employer] [address] [place] [address] Supervisor Underwriting Clerks: Marshall Paulino MD Coronavirus OC43 Not detected Normal [facility] Comment on above: Performed By: #### L IPR #### [facility] [employer] [address] [place] [address] Supervisor Underwriting Clerks: Marshall Paulino MD Human Metapneumo Not detected [facility] Comment on above: Performed By: #### L IPR #### [facility] [employer] [address] [place] [address] Supervisor Underwriting Clerks: Marshall Paulino MD Influenza A Not detected Normal [facility] Comment on above: Performed By: #### L IPR #### [facility] [address] [place] [address] Supervisor Underwriting Clerks: Marshall Paulino MD Influenza B Not detected Normal [facility] Comment on above: Performed By: #### L IPR #### [facility] [employer] [address] [place] [address] Supervisor Underwriting Clerks: Marshall Paulino MD Mycoplas.pneumoniae Not detected Normal [facility] Comment on above: Result Comment: Perf ormed by multiplexed nucleic acid assay. Performed By: #### L IPR #### [facility] [employer] [address] [place] [address] Supervisor Underwriting Clerks: Marshall Paulino MD Parainfluenza 1 Not detected Normal [facility] Comment on above: Performed By: #### L IPR #### [facility] [employer] [address] [place] [address] Supervisor Underwriting Clerks: Marshall Paulino MD Parainfluenza 2 Not detected Normal [facility] Comment on above: Performed By: #### L IPR #### [facility] [employer] [address] [place] [address] Supervisor Underwriting Clerks: Marshall Paulino MD Parainfluenza 3 Not detected Normal [facility] Comment on above: Performed By: #### L IPR #### [facility] [employer] [facility] [place] [address] Supervisor Underwriting Clerks: Marshall Paulino MD Parainfluenza 4 Not detected Normal [facility] Comment on above: Performed By: #### L IPR #### [facility] [employer] [address] [place] [address] Supervisor Underwriting Clerks: Marshall Paulino MD Resp Syncytial Virus Not detected Normal [facility] Comment on above: Performed By: #### L IPR #### [facility] [address] [place] [address] Supervisor Underwriting Clerks: Marshall Paulino MD Rhino/Enterovirus Not detected Normal [facility] Comment on above: Performed By: #### L IPR #### [facility] [address] [place] [address] Supervisor Underwriting Clerks: Marshall Paulino MD SARS-CoV-2 (COVID-19) RNA DAHLIA+probe Ql (Unsp spec) Not detected Normal [facility] Comment on above: Performed By: #### L IPR #### [facility] [address] [place] [address] Supervisor Underwriting Clerks: Marshall Paulino MD Respiratory Panel, Molecular , with COVID-19 (Restricted: peds pts or suitable admitted adults)on 12-31-2022 Adenovirus PCR Not detected Not Detected [facility] B. parapertussis [id number] DNA DAHLIA+non-probe Ql (Nph) Not detected Not Detected [facility] B. pertussis DNA DAHLIA+probe Ql (Unsp spec) Not detected Not Detected [facility] Chlamydia pneumoniae By PCR Not detected Not Detected [facility] Coronavirus 229E PCR Not detected Not Detected [facility] Coronavirus HKU1 PCR Not detected Not Detected [facility] Coronavirus NL63 PCR Not detected Not Detected [facility] Coronavirus OC43 PCR Not detected Not Detected [facility] FLUAV RNA DAHLIA+non-probe Ql (Nph) Not detected Not Detected [facility] FLUBV RNA DAHLIA+non-probe Ql (Nph) Not detected Not Detected [facility] Human Metapneumovirus PCR Not detected Not Detected [facility] Mycoplasma pneumo by PCR Not detected Not Detected [facility] Comment on above: Performed by [employer] exed nucleic acid assay. Parainfluenza 1 PCR Not detected Not Detected [facility] Parainfluenza 2 PCR Not detected Not Detected [facility] Parainfluenza 3 PCR Not detected Not Detected [facility] Parainfluenza 4 PCR Not detected Not Detected [facility] Resp Syncytial Virus PCR Not detected Not Detected [facility] Rhino/Enterovirus PCR Not detected Not Detected [facility] SARS-CoV-2 (COVID-19) RNA DAHLIA+non-probe Ql (Nph) Not detected Not Detected [facility] Specimen Description .NASOPHARYNGEAL [facility] Troponinon 12-31-2022 Troponin, High Sens 18 ng/L Normal 0-22 [facility] Comment on above: Result Comment: High Sensitivity Troponin values cannot be compared with other Troponin methodologies. Performed By: #### T ROPI, CDP, BMPX #### [facility] [address] [place] [address] Supervisor Underwriting Clerks: Luis Carlos Del Castillo MD #### GLYHGB #### [address] [address] Supervisor Underwriting Clerks: Marshall Paulino MD Troponin I.cardiac DL <= 0.01 ng/mL [Mass/Vol] 18 ng/L 0 - 22 ng/L [facility] Comment on above: High Sensitivity Tro ponin values cannot be compared with other Troponin methodologies. [facility] Brain Natri. Peptideon 12-30 Natriuretic peptide B (Bld) [Mass/Vol] 308 pg/mL High <300 [facility] Comment on above: Result Comment: An age-independent cutoff point of 300 pg/ml has a 98% negative predictive value excluding acute heart failure. Performed By: #### B [employer] #### [facility] [address] [place] [address] Supervisor Underwriting Clerks: Luis Carlos Del Castillo MD Brain Natriuretic Peptideon 12-30-2022 Interpretation and review of laboratory results Abnormal [facility] Natriuretic peptide B (Bld) [Mass/Vol] 308 pg/mL High NINF - 300 pg/mL [facility] Comment on above: An age-independent cutoff point of 300 pg/ml has a 98% negative predictive value excluding acute heart failure. [facility] CBC with Auto Differentialon 12-30-2022 Absolute Eos # 0.07 [facility] Absolute Immature Granulocyte 0.04 [facility] Absolute Lymph # 1.83 [facility] Absolute Lynn # 0.91 [facility] Basophils (Bld) [#/Vol] 0.06 10*3/uL [facility] Basophils/100 WBC (Bld) 1 % 0 - 2 % [facility] Eosinophils/100 WBC (Bld) 1 % 1 - 4 % [facility] Hematocrit (Bld) [Volume fraction] 39.6 % Low 40.7 - 50.3 % [facility] Hemoglobin (Bld) [Mass/Vol] 13.8 g/dL 13.0 - 17.0 g/dL [facility] Immature granulocytes/100 WBC (Bld) 0 % 0 [facility] Interpretation and review of laboratory results Abnormal [facility] Lymphocytes/100 WBC (Bld) 18 % Low 24 - 43 % [facility] MCH (RBC) [Entitic mass] 31.8 pg 25.2 - 33.5 pg [facility] MCHC (RBC) [Mass/Vol] 34.8 g/dL 28.4 - 34.8 g/dL [facility] MCV (RBC) [Entitic vol] 91.2 fL 82.6 - 102.9 fL [facility] Monocytes/100 WBC (Bld) 9 % 3 - 12 % [facility] NRBC Automated 0.0 0.0 per 100 WBC [facility] Platelet distribution width (Bld) [Ratio] 13.5 % 11.8 - 14.4 % [facility] Platelet mean volume (Bld) [Entitic vol] 9.9 fL 8.1 - 13.5 fL [facility] Platelets (Bld) [#/Vol] 189 10*3/uL [facility] RBC (Bld) [#/Vol] 4.34 10*6/uL 4.21 - 5.77 m/uL [facility] Segmented neutrophils/100 WBC (Bld) 71 % High 36 - 65 % [facility] Segs Absolute 7.15 [facility] WBC (Bld) [#/Vol] 10.1 10*3/uL [facility] CBC with Diffon 12-30-2022 Abs. Basophil 0.06 k/uL Normal 0.00-0.20 [facility] Comment on above: Performed By: #### Ileana ALONZO CP, CDP #### [facility] [address] [place], [place] [address] Supervisor Underwriting Clerks: Luis Carlos Del Castillo MD Abs.Imm.Granulocyte 0.04 k/uL Normal 0.00-0.30 [facility] Comment on above: Performed By: #### Ileana ALONZO CP, CDP #### [facility] [address] [place], [place] [address] Supervisor Underwriting Clerks: Luis Carlos Del Castillo MD Abs.Neutrophil (Seg) 7.15 k/uL Normal 1.50-8.10 [facility] Comment on above: Performed By: #### Ileana ALONZO CP, CDP #### [facility] [address] [place], [place] [address] Supervisor Underwriting Clerks: Luis Carlos Del Castillo MD Basophils/100 WBC (Bld) 1 % Normal 0-2 [facility] Comment on above: Performed By: #### Ileana ALONZO CP, CDP #### [address] [place], [facility] Supervisor Underwriting Clerks: Luis Carlos Del Castillo MD Eosinophils (Bld) [#/Vol] 0.07 10*3/uL Normal 0.00-0.44 [facility] Comment on above: Performed By: #### Ileana ALONZO CP, CDP #### [facility] [address] [place], [facility] Supervisor Underwriting Clerks: Luis Carlos Del Castillo MD Eosinophils/100 WBC (Bld) 1 % Normal 1-4 [facility] Comment on above: Performed By: #### Ileana ALONZO CP, CDP #### [facility] [address] [place] [address] [place]. [place], [place] [id number] Supervisor Underwriting Clerks: Luis Carlos Del Castillo MD Erythrocyte distribution width (RBC) [Ratio] 13.5 % Normal 11.8-14.4 [facility] Comment on above: Performed By: #### Ileana ALONZO CP, CDP #### [address] [place], [place] [phone] Supervisor Underwriting Clerks: Luis Carlos Del Castillo MD Hematocrit (Bld) [Volume fraction] 39.6 % Low 40.7-50.3 [facility] Comment on above: Performed By: #### Ileana ALONZO CP, CDP #### [address] [place] [address] Supervisor Underwriting Clerks: Luis Carlos Del Castillo MD Hemoglobin (Bld) [Mass/Vol] 13.8 g/dL Normal 13.0-17.0 [facility] Comment on above: Performed By: #### Ileana ALONZO CP, CDP #### [address] [place], [facility] Supervisor Underwriting Clerks: Luis Carlos Del Castillo MD Immature granulocytes/100 WBC (Bld) 0 % Normal 0 [facility] Comment on above: Performed By: #### Ileana ALONZO CP, CDP #### [address] [place] [phone] Supervisor Underwriting Clerks: Luis Carlos Del Castillo MD Lymphocytes (Bld) [#/Vol] 1.83 10*3/uL Normal 1.10-3.70 [facility] Comment on above: Performed By: #### Ileana ALONZO CP, CDP #### [address] [place], [place] [id number] Supervisor Underwriting Clerks: Luis Carlos Del Castillo MD Lymphocytes/100 WBC (Bld) 18 % Low 24-43 [facility] Comment on above: Performed By: #### Ileana ALONZO CP, CDP #### [address] [place] [id number] Supervisor Underwriting Clerks: Luis Carlos Del Castillo MD MCH (RBC) [Entitic mass] 31.8 pg Normal 25.2-33.5 [facility] Comment on above: Performed By: #### Ileana ALONZO CP, CDP #### [facility] [address] [place] [id number] Supervisor Underwriting Clerks: Luis Carlos Del Castillo MD MCHC (RBC) [Mass/Vol] 34.8 g/dL Normal 28.4-34.8 [facility] Comment on above: Performed By: #### Ileana ALONZO CP, CDP #### [address] [place] [address] Supervisor Underwriting Clerks: Luis Carlos Del Castillo MD MCV (RBC) [Entitic vol] 91.2 fL Normal 82.6-102.9 [facility] Comment on above: Performed By: #### Ileana ALONZO CP, CDP #### [address] [place] [address] Supervisor Underwriting Clerks: Luis Carlos Del Castillo MD Monocytes (Bld) [#/Vol] 0.91 10*3/uL Normal 0.10-1.20 [facility] Comment on above: Performed By: #### Ileana ALONZO CP, CDP #### [address] [place] [address] Supervisor Underwriting Clerks: Luis Carlos Del Castillo MD Monocytes/100 WBC (Bld) 9 % Normal 3-12 [facility] Comment on above: Performed By: #### Ileana ALONZO CP, CDP #### [facility] [address] [place] [id number] Supervisor Underwriting Clerks: Luis Carlos Del Castillo MD Neutrophil (Seg) 71 % High 36-65 [facility] Comment on above: Performed By: #### Ileana ALONZO CP, CDP #### [facility] [address] [place] [address] [place] [id number] Supervisor Underwriting Clerks: Luis Carlos Del Castillo MD NRBC Automated 0.0 per 100 WBC Normal 0.0 [facility] Comment on above: Performed By: #### Ileana ALONZO CP, CDP #### [facility] [address] [place], [place] [id number] Supervisor Underwriting Clerks: Luis Carlos Del Castillo MD Platelet mean volume (Bld) [Entitic vol] 9.9 fL Normal 8.1-13.5 [facility] Comment on above: Performed By: #### Ileana ALONZO CP, CDP #### [facility] [address] [place] [address] Supervisor Underwriting Clerks: Luis Carlos Del Castillo MD Platelets (Bld) [#/Vol] 189 10*3/uL Normal 138-453 [facility] Comment on above: Performed By: #### Ileana ALONZO CP, CDP #### [address] [place] [address] Supervisor Underwriting Clerks: Luis Carlos Del Castillo MD RBC (Bld) [#/Vol] 4.34 10*6/uL Normal 4.21-5.77 [facility] Comment on above: Performed By: #### Ileana ALONZO CP, CDP #### [address] [place] [address] Supervisor Underwriting Clerks: Luis Carlos Del Castillo MD WBC (Bld) [#/Vol] 10.1 10*3/uL Normal 3.5-11.3 [facility] Comment on above: Performed By: #### Ileana ALONZO CP, CDP #### [facility] [address] [place] [address] [place] [address] Supervisor Underwriting Clerks: Luis Carlos Del Castillo MD COVID-19, Rapidon 12-30-2022 SARS-CoV-2 (COVID-19) RdRp gene DAHLIA+probe Ql (Resp) Not detected Not Detected [facility] Comment on above: Rapid NAAT: [...] management decisions. Fact sheet for Healthcare Providers: https://www.fda.gov/media/146335/download Fact sheet for Patients: https://www.fda.gov/media/176458/download Methodology: Isothermal Nucleic Acid Amplification Specimen Description .NASOPHARYNGEAL SWAB [facility] CT CHEST PULMONARY EMBOLISM W CONTRASTon [...] Dov Love MD 12/30/22 Final result Normal [facility] Negative for acute pulmonary embolus Right-sided aortic arch Bilateral patchy pulmonary infiltrates which are predominantly peripheral which may be related atypical infectious etiology. Large hiatal hernia and wall thickening in the distal esophagus. An esophagram or endoscopy may be helpful for further evaluation if clinically indicated. [facility] EXAMINATION: CTA OF [...] No acute bone or soft tissue abnormality. [facility] Dov Love MD [...] helpful for further evaluation if clinically indicated. [facility] [employer] Phone: Radiology Study observation (narrative) [facility] [employer] Phone: CT CHEST PULMONARY EMBOLISM W CONTRASTOrdered By: Dov Love on 12-30-2022 [facility] [employer] Phone: Comp Metabolic Profon 2022 Albumin [Mass/Vol] 3.9 g/dL Normal 3.5-5.2 [facility] Comment on above: Performed By: #### T NATHAN ALONZO, CDP #### [facility] [address] [place] [address] Supervisor Underwriting Clerks: Luis Carlos Del Castillo MD Albumin/Glob Ratio 1.3 Normal 1.0-2.5 [facility] Comment on above: Performed By: #### T NATHAN ALONZO, CDP #### [facility] [address] [place] [address] Supervisor Underwriting Clerks: Luis Carlos Del Castillo MD Alkaline Phos 102 U/L Normal 40-129 [facility] Comment on above: Performed By: #### T NATHAN ALONZO, CDP #### [facility] [address] [place] [address] Supervisor Underwriting Clerks: Luis Carlos Del Castillo MD ALT [Catalytic activity/Vol] 19 U/L Normal 5-41 [facility] Comment on above: Performed By: #### T NATHAN ALONZO, CDP #### [facility] [address] [place], [place] [id number] Supervisor Underwriting Clerks: Luis Carlos Del Castillo MD Anion gap [Moles/Vol] 10 mmol/L Normal 9-17 [facility] Comment on above: Performed By: #### Ileana ALONZO CP, CDP #### [facility] [address] [place], [place] [id number] Supervisor Underwriting Clerks: Luis Carlos Del Castillo MD AST [Catalytic activity/Vol] 16 U/L Normal <40 [facility] Comment on above: Performed By: #### Ileana ALONZO CP, CDP #### [facility] [address] [place], [place] [id number] Supervisor Underwriting Clerks: Luis Carlos Del Castillo MD Bilirubin [Mass/Vol] 0.8 mg/dL Normal 0.3-1.2 [facility] Comment on above: Performed By: #### Ileana ALONZO CP, CDP #### [facility] [address] [place], [place] 8[address]83 Supervisor Underwriting Clerks: Luis Carlos Del Castillo MD BUN/CRE Ratio 25 High 9-20 [facility] Comment on above: Performed By: #### T NATHAN ALONZO, CDP #### [facility] [address] [place], [place] [address]83 Supervisor Underwriting Clerks: Luis Carlos Del Castillo MD Calcium [Mass/Vol] 9.5 mg/dL Normal 8.6-10.4 [facility] Comment on above: Performed By: #### Ileana ALONZO CP, CDP #### [facility] [address] [place] [address] Supervisor Underwriting Clerks: Luis Carlos Del Castillo MD Chloride [Moles/Vol] 105 mmol/L Normal 98-107 [facility] Comment on above: Performed By: #### T NATHAN ALONZO, CDP #### [facility] [address] [place] [address] Supervisor Underwriting Clerks: Luis Carlos Del Castillo MD CO2 [Moles/Vol] 24 mmol/L Normal 20-31 [facility] Comment on above: Performed By: #### T NATHAN ALONZO, CDP #### [facility] [address] [place] [address] Supervisor Underwriting Clerks: Luis Carlos Del Castillo MD Creatinine [Mass/Vol] 0.63 mg/dL Low 0.70-1.20 [facility] Comment on above: Performed By: #### T NATHAN ALONZO, CDP #### [facility] [address] [place] [address] Supervisor Underwriting Clerks: Luis Carlos Del Castillo MD GFR/1.73 sq M.predicted among non-blacks MDRD (S/P/Bld) [Vol rate/Area] mL/min/{1.73_m2} Normal >60 [facility] Comment on above: Result Comment: [...] By: #### Ileana ALONZO CP, CDP #### [facility] [address] [place] [address] Supervisor Underwriting Clerks: Luis Carlos Del Castillo MD Glucose [Mass/Vol] 113 mg/dL High 70-99 [facility] Comment on above: Performed By: #### T NATHAN ALONZO, CDP #### [facility] [address] [place] [address] Supervisor Underwriting Clerks: Luis Carlos Del Castillo MD Potassium [Moles/Vol] 3.9 mmol/L Normal 3.7-5.3 [facility] Comment on above: Performed By: #### Ileana ALONZO CP, CDP #### [facility] [address] [place], [place] [id number] Supervisor Underwriting Clerks: Luis Carlos Del Castillo MD Protein [Mass/Vol] 7.0 g/dL Normal 6.4-8.3 [facility] Comment on above: Performed By: #### Ileana ALONZO CP, CDP #### [facility] [address] [place], [place] [id number] Supervisor Underwriting Clerks: Luis Carlos Del Castillo MD Sodium [Moles/Vol] 139 mmol/L Normal 135-144 [facility] Comment on above: Performed By: #### Ileana ALONZO CP, CDP #### [facility] [address] [place] [address] Supervisor Underwriting Clerks: Luis Carlos Del Castillo MD Urea nitrogen [Mass/Vol] 16 mg/dL Normal 8-23 [facility] Comment on above: Performed By: #### Ileana ALONZO CP, CDP #### [facility] [address] [place] [address] Supervisor Underwriting Clerks: Luis Carlos Del Castillo MD Comprehensive Metabolic [facility] 12-30-2022 Albumin [Mass/Vol] 3.9 g/dL 3.5 - 5.2 g/dL [facility] Albumin/Globulin [Mass ratio] 1.3 {ratio} 1.0 - 2.5 [facility] ALP [Catalytic activity/Vol] 102 U/L 40 - 129 U/L [facility] ALT [Catalytic activity/Vol] 19 U/L 5 - 41 U/L [facility] Anion gap [Moles/Vol] 10 mmol/L 9 - 17 mmol/L [facility] AST [Catalytic activity/Vol] 16 U/L NINF - 40 U/L [facility] Bilirubin [Mass/Vol] 0.8 mg/dL 0.3 - 1 .2 mg/dL [facility] Calcium [Mass/Vol] 9.5 mg/dL 8.6 - 10. 4 mg/dL [facility] Chloride [Moles/Vol] 105 mmol/L 98 - 10 7 mmol/L [facility] CO2 [Moles/Vol] 24 mmol/L 20 - 31 mmol/L [facility] Creatinine [Mass/Vol] 0.63 mg/dL Low 0.70 - 1.20 mg/dL [facility] GFR/1.73 sq M.predicted MDRD (S/P/Bld) [Vol rate/Area] - PINF [facility] Comment on above: These results [...] 113 mg/dL High 70 - 99 mg/dL [facility] Interpretation and review of laboratory results Abnormal [facility] Potassium [Moles/Vol] 3.9 mmol/L 3.7 - 5.3 mmol/L [facility] Protein [Mass/Vol] 7.0 g/dL 6.4 - 8.3 g/dL [facility] Sodium [Moles/Vol] 139 mmol/L 135 - 144 mmol/L [facility] Urea nitrogen [Mass/Vol] 16 mg/dL 8 - 23 mg/dL [facility] Urea nitrogen/Creatinine (Bld) [Mass ratio] 25 High 9 - 20 [facility] EKG 12 Leadon 12-30-2022 Atrial Rate 51 BPM [facility] Work Phone: P Waldo 39 degrees [facility] Work Phone: P-R Interval 146 ms [facility] [employer] Work Phone: Q-T Interval 424 ms [facility] Work Phone: QRS Duration 72 ms [facility] Work Phone: QTc Calculation (Bazett) 390 ms [employer] Phone: R Waldo 56 degrees [employer] Phone: T Waldo 73 degrees [employer] Phone: Ventricular Rate 51 BPM ROSLYN [employer] Phone: Poor data qualit y, interpretation may be adversely affected Sinus bradycardia Nonspecific ST and T wave abnormality Abnormal ECG Confirmed by Fany Mohr MD ([id number]) on 12/30/2022 8:21:48 AM [facility] RADIOLOGY Fany Mohr MD - 12/30/2022 Poor data quality, interpretation may be adversely affected Sinus bradycardia Nonspecific ST and T wave abnormality Abnormal ECG Confirmed by Fany Mohr MD ([id number]) on 12/30/2022 8:21:48 AM [employer] Phone: [employer] Phone: EKG Rhythm Stripon 3 [facility] [employer] Echocardiogram complete 2D w ith doppler with coloron 12-30-2022 Left ventricular Ejection fraction 55 [employer] Phone: LVEF MODALITY ECHO [employer] Phone: [facility] Transthoracic Echocardiography Report (TTE) Patient Name ALVA Date of Study 12/30/2022 NOEL Vaca Date of 1960 Gender Male Age 62 year(s) Race Room Number 0327 Height: 66 inch, 167.64 cm Corporate ID [id number] Weight: 160 pounds, 72.6 kg # Patient Acct [id number] BSA: 1.82 m^2 BMI: 25.82 kg/m^2 # MR # [id number] Optical Laboratory Manager Keke Tineo Interpreting Physician Fany Mohr Fellow Referring Nurse Cece Villalobos, Practitioner [employer] RECYCLING TECHNICIAN Interpreting Referring Physician Fellow Type of Study TTE procedure:2D Echocardiogram, M-Mode, Doppler, Color Doppler. Procedure Date Date: 12/30/2022 Start: 02:20 PM Study Location: [facility] Indications:Chest pain. History / Tech. [...] MD / Result, Unknown Provider - 12/30/2022 [facility] Transthoracic Echocardiography Report (TTE) Patient Name ARTIE Date of Study 12/30/2022 NOEL Vaca Date of 1960 Gender Male Age 62 year(s) Race Room Number 0327 Height: 66 inch, 167.64 cm Corporate ID [id number] Weight: 160 pounds, 72.6 kg # Patient Acct [id number] BSA: 1.82 m^2 BMI: 25.82 kg/m^2 # MR # [id number] Optical Laboratory Manager Keke Tineo Interpreting Physician Fany Mohr Fellow Referring Nurse Cece Villalobos, Practitioner SREEDHAR Interpreting Referring Physician Fellow Type of Study TTE procedure:2D Echocardiogram, M-Mode, Doppler, Color Doppler. Procedure Date Date: 12/30/2022 Start: 02:20 PM Study Location: [facility] Indications:Chest pain. History / Tech. [...] E' velocity:0.12 m/s Lateral Wall E/E':6.[address] [facility] [employer] Phone: [facility] [employer] Phone: Resp Viral Panelon 3 Source: .NASOPHARYNGEAL SWAB Normal [facility] Comment on above: Performed By: #### L IPR #### [facility] [employer] [facility] [place] [address] Supervisor Underwriting Clerks: Marshall Paulino MD [id number] 12-30-2022 SARS-CoV-2 (COVID-19) RNA DAHLIA+probe Ql (Unsp spec) Not detected Normal [facility] Comment on above: [...] management decisions. Fact sheet for Healthcare Providers: https://www.fda.gov/media/111205/download Fact sheet for Patients: https://www.fda.gov/media/941355/download Methodology: Isothermal Nucleic Acid Amplification Performed By: #### L IPR #### [facility] [address] [place] [address] Supervisor Underwriting Clerks: Marshall Paulino MD Troponinon 12-30-2022 Troponin, High Sens 17 ng/L Normal 0-22 [facility] Comment on above: Result Comment: High Sensitivity Troponin values cannot be compared with other Troponin methodologies. Performed By: #### L IPR #### [facility] [address] [place] [address] Supervisor Underwriting Clerks: Marshall Paulino MD Troponin, High Sens 19 ng/L Normal 0-22 [facility] Comment on above: Result Comment: High Sensitivity Troponin values cannot be compared with other Troponin methodologies. Performed By: #### T NATHAN ALONZO, CDP #### [facility] [address] [place], [place] [address] Supervisor Underwriting Clerks: Luis Carlos Del Castillo MD Troponin I.cardiac DL <= 0.01 ng/mL [Mass/Vol] 17 ng/L 0 - 22 ng/L [facility] Comment on above: High Sensitivity Tro ponin values cannot be compared with other Troponin methodologies. [facility] Troponin I.cardiac DL <= 0.01 ng/mL [Mass/Vol] 19 ng/L 0 - 22 ng/L [facility] Comment on above: High Sensitivity Tro ponin values cannot be compared with other Troponin methodologies. [facility] XR CHEST PORTABLEon 12-31-19 XR [...] Sherrill Parmar MD 12/30/22 Final result Normal [facility] There is a new left midlung opacity and adjacent mildly prominent interstitial markings, suggestive of pneumonia. Recommend imaging follow-up to resolution to exclude an underlying lesion. [facility] EXAMINATION: ONE XRAY [...] at or pneumothorax. No acute osseous abnormality. [facility] Sherrill Parmar MD [...] to resolution to exclude an underlying lesion. [employer] Phone: Radiology Study observation (narrative) [employer] Phone: XR CHEST PORTABLEOrdered By: Sherrill Parmar on 12-30-2022 [facility] [employer] Phone: XR LSPINE MIN 4 VIEWSon 12-04 [...] PABLO CHAMBERS Date: 2022-12-18 13:59 Normal [facility] MRI LSPINE WO CONon 11-06-19 MRI LSPINE WO CON EXAMINATION: MRI LSP [...] PABLO CHAMBERS Date: 2022-11-06 15:08 Normal [facility] TESTOSTERONE, TOTALon 2021 Testosterone [Mass/Vol] 279 ng/dL Normal 264-916 [facility] Comment on above: Result Comment: Adul t male reference interval is based on a population of healthy nonobese males (BMI <30) between 19 and 39 years old. axel [place].al. JCEM 2017,102;1959-7528. PMID: [id number]. Performed By: #### H GBHCT #### [facility] [address] [place] [address] Dr. Raimundo Estrada CBC AUTO DIFFon 09-11-2022 BASO # 0.1 103/ul Normal 0.0-0.1 [facility] Comment on above: Performed By: #### H GBHCT #### [facility] [address] [place] [address] Dr. Raimundo Estrada Basophils/100 WBC (Bld) 0.6 % Normal 0.2-2.0 [facility] Comment on above: Performed By: #### H GBHCT #### [facility] [address] [place] [address] Dr. Raimundo Estrada EO # 0.2 103/ul Normal 0.0-0.7 [facility] Comment on above: Performed By: #### H GBHCT #### [facility] [address] [place] [address] Dr. Raimundo Estrada Eosinophils/100 WBC (Bld) 2.4 % Normal 0.9-7.0 [facility] Comment on above: Performed By: #### H GBHCT #### [facility] [address] [place] [address] Dr. Raimundo Estrada Erythrocyte distribution width (RBC) [Ratio] 14.1 % Normal 11.0-15.0 [facility] Comment on above: Performed By: #### H GBHCT #### [facility] [address] [place] [address] Dr. Raimundo Estrada Hematocrit (Bld) [Volume fraction] 40.2 % Critically low 42.0-54.0 [facility] Comment on above: Performed By: #### H GBHCT #### [facility] [address] [place] [address] Dr. Raimundo Estrada Hemoglobin (Bld) [Mass/Vol] 13.4 g/dL Critically low 14.0-18.0 [facility] Comment on above: Performed By: #### H GBHCT #### [facility] [address] [place] [address] Dr. Raimundo Estrada IG # 0.03 10e3/ul Normal 0.00-0.03 [facility] Comment on above: Performed By: #### H GBHCT #### [facility] [address] [place] [address] Dr. Raimundo Estrada IG % 0.4 % Normal 0.0-0.5 [facility] Comment on above: Performed By: #### H GBHCT #### [facility] [address] [place] [address] Dr. Raimundo Estrada LYMPH # 1.7 103/ul Normal 1.2-3.8 [facility] Comment on above: Performed By: #### H GBHCT #### [facility] [address] [place] [address] Dr. Raimundo Estrada Lymphocytes/100 WBC (Bld) 20.8 % Normal 20.5-60.0 [facility] Comment on above: Performed By: #### H GBHCT #### [facility] [address] [place] [address] Dr. Raimundo Estrada MANUAL DIFF REQ NO Normal [facility] Comment on above: Performed By: #### H GBHCT #### [facility] [address] [place] [address] Dr. Raimundo Estrada MCH (RBC) [Entitic mass] 31.8 pg Normal 25.9-34.0 [facility] Comment on above: Performed By: #### H GBHCT #### [facility] [address] [place] [address] Dr. Raimundo Estrada MCHC (RBC) [Mass/Vol] 33.3 g/dL Normal 29.9-35.2 [facility] Comment on above: Performed By: #### H GBHCT #### [facility] [address] [place] [address] Dr. Raimundo Estrada MCV (RBC) [Entitic vol] 95.3 fL Critically high 80.0-94.0 [facility] Comment on above: Performed By: #### H GBHCT #### [facility] [address] [address] [address] Raimundo Estrada MONO # 0.8 103/ul Normal 0.3-0.8 [facility] Comment on above: Performed By: #### H GBHCT #### [facility] [address] [address] [address] Raimundo Estrada Monocytes/100 WBC (Bld) 9.7 % Normal 1.7-12.0 [facility] Comment on above: Performed By: #### H GBHCT #### [facility] [address] [address] [address] Raimundo Estrada NEUT # 5.2 103/ul Normal 1.4-6.5 [facility] Comment on above: Performed By: #### H GBHCT #### [facility] [address] [address] [address] Raimundo Estrada Neutrophils/100 WBC (Bld) 66.1 % Normal 43.0-75.0 [facility] Comment on above: Performed By: #### H GBHCT #### [facility] [address] [place] [address] Dr. Raimundo Estrada Platelet mean volume (Bld) [Entitic vol] 10.1 fL Normal 9.5-13.5 [facility] Comment on above: Performed By: #### H GBHCT #### [facility] [address] [address] [address] Raimundo Estrada PLT 189 103/ul Normal 150-450 [facility] Comment on above: Performed By: #### H GBHCT #### [facility] [address] [address] [address] Raimundo Estrada RBC 4.22 106/ul Critically low 4.70-6.10 [facility] Comment on above: Performed By: #### H GBHCT #### [facility] [address] [address] [address] Raimundo Estrada WBC 7.9 103/ul Normal 4.0-11.0 [facility] Comment on above: Performed By: #### H GBHCT #### [facility] [address] [place] [address] Dr. Raimundo Estrada FREE T3on 09-11-2022 FREE T3 2.85 pg/mlL Normal 2.18-3.98 [facility] Comment on above: Performed By: #### T SH, FT3, LIVER, BMP, LIPID #### [facility] [address] [address] [address] Raimundo Estrada FREE T4on 09-11-2022 Free T4 [Mass/Vol] 0.85 ng/dL Normal 0.76-1.46 [facility] [facility] Comment on above: Performed By: #### H GBHCT #### [facility] [address] [place] [address] Dr. Raimundo Estrada GLYCOHEMOGLOBIN A1Con 2021 ADA RECOMMENDATION SEE BELOW Normal [facility] Comment on above: Result Comment: ADA RECOMMENDED LIMIT 4.0 - 6.0 ADA THERAPEUTIC TARGET < 7.0 ACTION SUGGESTED > 7.0 Performed By: #### H GBHCT #### [facility] [address] [place] [address] Dr. Raimundo Estrada Glucose [Mass/Vol] 111 mg/dL Normal [facility] Comment on above: Performed By: #### H GBHCT #### [facility] [address] [place] [address] Dr. Raimundo Estrada HbA1c (Bld) [Mass fraction] 5.5 % Normal 4.5-6.2 [facility] Comment on above: Performed By: #### H GBHCT #### [facility] [address] [place] [address] Dr. Raimundo Estrada LIPID PROFILEon 09-11-2022 CHOL-HDL RATIO NORM SEE BELOW Normal [facility] Comment on above: Result Comment: 3.3 - 4.4 LOW RISK 4.4 - 7.1 AVERAGE RISK 7.1 - 11.0 MODERATE RISK >11.0 HIGH RISK Performed By: #### T SH, FT3, LIVER, BMP, LIPID #### [facility] [address] [address] [address] Raimundo Estrada Cholesterol [Mass/Vol] 129 mg/dL Normal <=200 [facility] Comment on above: Performed By: #### T SH, FT3, LIVER, BMP, LIPID #### [facility] [address] [address] [address] Raimundo Estrada Cholesterol in HDL [Mass/Vol] 62 mg/dL Critically high 40-60 [facility] Comment on above: Performed By: #### T SH, FT3, LIVER, BMP, LIPID #### [facility] [address] [address] [address] Raimundo Estrada Cholesterol in LDL [Mass/Vol] 53.4 mg/dL Normal [facility] Comment on above: Performed By: #### T SH, FT3, LIVER, BMP, LIPID #### [facility] [address] [address] [address] Raimundo Estrada Cholesterol.total/Ch olesterol in HDL [Mass ratio] 2.1 {ratio} Normal [facility] Comment on above: Performed By: #### T SH, FT3, LIVER, BMP, LIPID #### [facility] [address] [address] [address] Raimundo Estrada HDL NORMAL > or = 60 mg/dl - LO W CARDIOVASCULAR RISK <40 mg/dl - HIGH CARDIOVASCULAR RISK Normal [facility] Comment on above: Performed By: #### T SH, FT3, LIVER, BMP, LIPID #### [facility] [address] [address] [address] Raimundo Estrada LDL CALC NORMAL SEE BELOW Normal [facility] Comment on above: Result Comment: <100 mg/dl OPTIMAL 100 - 129 mg/dl NEAR OR ABOVE OPTIMAL 130 - 159 mg/dl BORDERLINE HIGH 160 - 189 mg/dl HIGH >190 mg/dl VERY HIGH Performed By: #### T SH, FT3, LIVER, BMP, LIPID #### [facility] [address] [address] [address] Raimundo Estrada Triglyceride [Mass/Vol] 68 mg/dL Normal <=150 [facility] Comment on above: Performed By: #### T SH, FT3, LIVER, BMP, LIPID #### [facility] [address] [address] [address] Raimundo Estrada VLDL CALC 13.6 mg/dL Normal [facility] Comment on above: Performed By: #### T SH, FT3, LIVER, BMP, LIPID #### [facility] [address] [place] [address] Dr. Raimundo Estrada LIVER PROFILEon 09-11-2022 Albumin [Mass/Vol] 3.8 g/dL Normal 3.4-5.0 [facility] Comment on above: Performed By: #### T SH, FT3, LIVER, BMP, LIPID #### [facility] [address] [place] [address] Dr. Raimundo Estrada Albumin/Globulin [Mass ratio] 1.0 {ratio} Normal [facility] Comment on above: Performed By: #### T SH, FT3, LIVER, BMP, LIPID #### [facility] [address] [place] [address] Dr. Raimundo Estrada ALP [Catalytic activity/Vol] 103 U/L Normal 46-116 [facility] Comment on above: Performed By: #### T SH, FT3, LIVER, BMP, LIPID #### [facility] [address] [place] [address] Dr. Raimundo Estrada ALT [Catalytic activity/Vol] 46 U/L Normal 16-63 [facility] Comment on above: Performed By: #### T SH, FT3, LIVER, BMP, LIPID #### [facility] [address] [place] [address] Dr. Raimundo Estrada AST [Catalytic activity/Vol] 35 U/L Normal 15-37 [facility] Comment on above: Performed By: #### T SH, FT3, LIVER, BMP, LIPID #### [facility] [address] [place] [address] Dr. Raimundo Estrada BILI, CONJUGATED 0.2 mg/dL Normal 0.0-0.2 [facility] Comment on above: Performed By: #### T SH, FT3, LIVER, BMP, LIPID #### [facility] [address] [place] [address] Dr. Raimundo Estrada Bilirubin [Mass/Vol] 0.7 mg/dL Normal 0.2-1.0 [facility] Comment on above: Performed By: #### T SH, FT3, LIVER, BMP, LIPID #### [facility] [address] [place] [address] Dr. Raimundo Estrada Globulin (S) [Mass/Vol] 3.8 g/dL Normal [facility] Comment on above: Performed By: #### T SH, FT3, LIVER, BMP, LIPID #### [facility] [address] [place] [address] Dr. Raimundo Estrada Protein [Mass/Vol] 7.6 g/dL Normal 6.4-8.2 [facility] Comment on above: Performed By: #### T SH, FT3, LIVER, BMP, LIPID #### [facility] [address] [place] [address] Dr. Raimundo Estrada PROF CHEM 8 (BAS METB)on Anion gap [Moles/Vol] 13.9 mmol/L Normal [facility] Comment on above: Performed By: #### T SH, FT3, LIVER, BMP, LIPID #### [facility] [address] [place] [address] Dr. Raimundo Estrada Calcium [Mass/Vol] 9.3 mg/dL Normal 8.5-10.1 [facility] Comment on above: Performed By: #### T SH, FT3, LIVER, BMP, LIPID #### [facility] [address] [place] [address] Dr. Raimundo Estrada Chloride [Moles/Vol] 104 mmol/L Normal 98-107 [facility] Comment on above: Performed By: #### T SH, FT3, LIVER, BMP, LIPID #### [facility] [address] [place] [address] Dr. Raimundo Estrada CO2 [Moles/Vol] 28.6 mmol/L Normal 21.0-32.0 [facility] Comment on above: Performed By: #### T SH, FT3, LIVER, BMP, LIPID #### [facility] [address] [address] [address] Raimundo Estrada Creatinine [Mass/Vol] 0.77 mg/dL Normal 0.70-1.30 [facility] Comment on above: Performed By: #### T SH, FT3, LIVER, BMP, LIPID #### [facility] [address] [place] [address] Dr. Raimundo Estrada EGFR-AF ENGLISH >60 Normal >=60 [facility] Comment on above: Performed By: #### T SH, FT3, LIVER, BMP, LIPID #### [facility] [address] [place] [address] Dr. Raimundo Estrada EGFR-NON AF ENGLISH >60 Normal >=60 [facility] Comment on above: Performed By: #### T SH, FT3, LIVER, BMP, LIPID #### [facility] [address] [place] [address] Dr. Raimundo Estrada Glucose [Mass/Vol] 90 mg/dL Normal 74-106 [facility] Comment on above: Performed By: #### T SH, FT3, LIVER, BMP, LIPID #### [facility] [address] [place] [address] Dr. Raimundo Estrada Potassium [Moles/Vol] 4.5 mmol/L Normal 3.5-5.1 [facility] Comment on above: Performed By: #### T SH, FT3, LIVER, BMP, LIPID #### [facility] [address] [place] [address] Dr. Raimundo Estrada Sodium [Moles/Vol] 142 mmol/L Normal 136-145 [facility] Comment on above: Performed By: #### T SH, FT3, LIVER, BMP, LIPID #### [facility] [address] [place] [address] Dr. Raimundo Estrada Urea nitrogen [Mass/Vol] 22.0 mg/dL Critically high 7.0-18.0 [facility] Comment on above: Performed By: #### T SH, FT3, LIVER, BMP, LIPID #### [facility] [address] [address] [address] Raimundo Estrada Urea nitrogen/Creatinine [Mass ratio] 28.6 mg/mg Normal [facility] Comment on above: Performed By: #### T SH, FT3, LIVER, BMP, LIPID #### [facility] [address] [address] [address] Raimundo Estrada TSHon 09-11-2022 TSH 1.375 uIU/mL Normal 0.358-3.74 0 [facility] Comment on above: Performed By: #### T SH, FT3, LIVER, BMP, LIPID #### [facility] [address] [address] [address] Raimundo Estrada VITAMIN B12on 09-11-2022 Cobalamin (Vitamin B12) [Mass/Vol] 635.0 pg/mL Normal 193.0-986. 0 [facility] Comment on above: Performed By: #### L IPID #### [facility] [address] [address] [address] Raimundo Estrada General Surgery Office/Clini c [...] History Ongoing Asthma BMI 25.0-25.9,adult CAD in [place] artery DDD (degenerative disc disease), lumbar Depression [...] Tab, 25 mg= 1 tab(s), Oral, BID [place] 5/325 Tab, 1 tab(s), Oral, BID Protonix [...] Coronary artery disease: Mother and Father. Normal [facility] Comment on above: Result Comment: Elec tronically Signed By: EMILY DRUMMOND, Julian Rothman\Date and Time Signed: 07/10/22 17:09 EDT Reminderson 07-08-2022 Reminders - From: Karon Dumont LPN To: [facility] - Clinical; Sent: 07/08/2022 15:58:22 EDT Show up: 05/26/2027 07:00:00 EDT Subject: colonoscopy recall Due Date/Time: 06/26/2027 07:00:00 EDT Reminder/Recall Patient is due for colonoscopy 06/26/2027 due to sigmoid polyp that was not retrieved. Normal [facility] Pathology Noteon 06-28-2022 Pathology Note [id number]#1.00CD:127 Normal [facility] Outside Colonoscopyon 2021 Outside Colonoscopy [id number]#1.00CD:127 Normal [facility] HEMOGLOBIN AND HEMATOCRITon 06-26-2022 Hematocrit (Bld) [Volume fraction] 44.2 % Normal 42.0-54.0 [facility] Comment on above: Performed By: #### H GBHCT #### [facility] [address] [place] [address] Dr. Raimundo Estrada Hemoglobin (Bld) [Mass/Vol] 15.0 g/dL Normal 14.0-18.0 [facility] Comment on above: Performed By: #### H GBHCT #### [facility] [address] [place] [address] Dr. Raimundo Estrada Lab Reportson 06-24-2022 Lab Reports [id number]#[id number]:127 Normal [facility] Covid-19 PCR (CVDTB)on 06-06 SARS-CoV-2 (COVID-19) RNA DAHLIA+probe Ql (Unsp spec) Not detected Normal NOT DETECTED [facility] Comment on above: Result Comment: This test is not yet approved or cleared by the [place] FDA. When there are no FDA-approved or cleared tests available, and other criteria are met, FDA can make tests available under an emergency access mechanism called an Emergency Use Authorization (EUA). The EUA for this test is supported by the [place] of Health and Human Service's (HHS's) declaration [...] SARS-CoV-2. Performed By: #### H GBHCT #### [facility] [address] [address] [address] Raimundo Estrada Consent for Procedure/Surger yon 06-03-2022 Consent for Procedure/Surgery [id number]#[id number]:127 Normal [facility] Pre-Certification Formon Pre-Certification Form [id number]#[id number]:127 Normal [facility] Ambulatory Visit Summaryon 0 05-31-2022 Ambulatory Visit Summary NOEL ALVA Nola :1960 Visit Date:05/31/2022 Ambulatory Visit Instructions Your Diagnosis Epigastric pain Hematemesis Your Care Team Attending Physician - EMILY DRUMMOND, Julian Davis Primary Care Physician - MAGDA DRUMMOND, ROMARIO Referring Physician - ROMARIO MAN MD This Is Your Medications List pantoprazole (Protonix 40 mg Tab-) Contact prescribing physician if questions or concerns acetaminophen-hydrocodone ([place] 5/325 Tab) albuterol (albuterol HFA 90 mcg/inh [...] Epigastric pain Hematemesis Refills: 3 Pickup at [facility] Unchanged acetaminophen-hydrocodone ([place] 5/ 325 Tab) 1 Tablets By Mouth [...] physician if questions or concerns Pharmacy Information [facility]: [address] [place], [place] [phone] Allergies No Known Allergies No Known Medication Allergies Problems Ongoing - Any problem that you are currently receiving treatment for. Asthma BMI 25.0-25.9,adult CAD in [place] artery DDD (degenerative disc disease), lumbar Depression Epigastric pain Gouty arthritis Hematemesis Iron deficiency anemia Vitamin D deficiency Normal [facility] Lab Reportson 05-30-2022 Lab Reports [id number]#[id number]:127 Normal [facility] Lab Reportson 05-23-2022 Lab Reports [id number]#1.00CD:127 Normal [facility] Lab Reports [id number]#[id number]:127 Normal [facility] Physician Referralon Physician Referral [id number]#1.00CD:127 Normal [facility] CBC AUTO DIFFon 04-03-2022 BASO # 0.0 103/ul Normal 0.0-0.1 [facility] Comment on above: Performed By: #### C BC #### [facility] [address] [place] [address] Dr. Raimundo Estrada Basophils/100 WBC (Bld) 0.3 % Normal 0.2-2.0 [facility] Comment on above: Performed By: #### C BC #### [facility] [address] [place] [address] Dr. Raimundo Estrada EO # 0.1 103/ul Normal 0.0-0.7 [facility] Comment on above: Performed By: #### C BC #### [facility] [address] [place] [address] Dr. Raimundo Estrada Eosinophils/100 WBC (Bld) 0.7 % Critically low 0.9-7.0 [facility] Comment on above: Performed By: #### C BC #### [facility] [address] [place] [address] Dr. Raimundo Estrada Erythrocyte distribution width (RBC) [Ratio] 14.4 % Normal 11.0-15.0 [facility] Comment on above: Performed By: #### C BC #### [facility] [address] [address] [address] Raimundo Estrada Hematocrit (Bld) [Volume fraction] 38.2 % Critically low 42.0-54.0 [facility] Comment on above: Performed By: #### C BC #### [facility] [address] [address] [address] Raimundo Estrada Hemoglobin (Bld) [Mass/Vol] 12.8 g/dL Critically low 14.0-18.0 [facility] Comment on above: Performed By: #### C BC #### [facility] [address] [address] [address] Raimundo Estrada IG # 0.04 10e3/ul Critically high 0.00-0.03 [facility] Comment on above: Performed By: #### C BC #### [facility] [address] [place] [address] Dr. Raimundo Estrada IG % 0.3 % Normal 0.0-0.5 [facility] Comment on above: Performed By: #### C BC #### [facility] [address] [place] [address] Dr. Raimundo Estrada LYMPH # 1.1 103/ul Critically low 1.2-3.8 [facility] Comment on above: Performed By: #### C BC #### [facility] [address] [place] [address] Dr. Raimundo Estrada Lymphocytes/100 WBC (Bld) 9.4 % Critically low 20.5-60.0 [facility] Comment on above: Performed By: #### C BC #### [facility] [address] [place] [address] Dr. Raimundo Estrada MANUAL DIFF REQ NO Normal [facility] Comment on above: Performed By: #### C BC #### [facility] [address] [place] [address] Dr. Raimundo Estrada MCH (RBC) [Entitic mass] 30.7 pg Normal 25.9-34.0 [facility] Comment on above: Performed By: #### C BC #### [facility] [address] [place] [address] Dr. Raimundo Estrada MCHC (RBC) [Mass/Vol] 33.5 g/dL Normal 29.9-35.2 [facility] Comment on above: Performed By: #### C BC #### [facility] [address] [address] [address] Raimundo Estrada MCV (RBC) [Entitic vol] 91.6 fL Normal 80.0-94.0 [facility] Comment on above: Performed By: #### C BC #### [facility] [address] [place] [address] Dr. Raimundo Estrada MONO # 0.7 103/ul Normal 0.3-0.8 [facility] Comment on above: Performed By: #### C BC #### [facility] [address] [place] [address] Dr. Raimundo Estrada Monocytes/100 WBC (Bld) 5.8 % Normal 1.7-12.0 [facility] Comment on above: Performed By: #### C BC #### [facility] [address] [address] [address] Raimundo Estrada NEUT # 9.6 103/ul Critically high 1.4-6.5 [facility] Comment on above: Performed By: #### C BC #### [facility] [address] [place] [address] Dr. Raimundo Estrada Neutrophils/100 WBC (Bld) 83.5 % Critically high 43.0-75.0 [facility] Comment on above: Performed By: #### C BC #### [facility] [address] [place] [address] Dr. Raimundo Estrada Platelet mean volume (Bld) [Entitic vol] 9.3 fL Critically low 9.5-13.5 [facility] Comment on above: Performed By: #### C BC #### [facility] [address] [place] [address] Dr. Raimundo Estrada PLT 165 103/ul Normal 150-450 [facility] Comment on above: Performed By: #### C BC #### [facility] [address] [place] [address] Dr. Raimundo Estrada RBC 4.17 106/ul Critically low 4.70-6.10 [facility] Comment on above: Performed By: #### C BC #### [facility] [address] [place] [address] Dr. Raimundo Estrada WBC 11.6 103/ul Critically high 4.0-11.0 [facility] Comment on above: Performed By: #### C BC #### [facility] [address] [place] [address] Dr. Raimundo Estrada IRONon 04-03-2022 Iron [Mass/Vol] 63.0 ug/dL Critically low 65.0-175.0 [facility] Comment on above: Performed By: #### I HUBERT #### [facility] [address] [place] [address] Dr. Raimundo Estrada PROTIMEon 04-03-2022 INR Coag (PPP) [Relative time] 0.98 {INR} Normal [facility] Comment on above: Performed By: #### H GBHCT #### [facility] [address] [place] [address] Dr. Raimundo Estrada INR GUIDELINES SEE BELOW Normal [facility] Comment on above: Result Comment: KEIRA RED INR: 2.0 - 3.0 CONDITIONS NOT LISTED BELOW 2.5 - 3.5 FOR PROSTHETIC HEART VALVE REPLACEMENT 2.5 - 3.5 RECURRENT THROMBOSIS Performed By: #### H GBHCT #### [facility] [address] [place] [address] Dr. Raimundo Estrada PT Coag (PPP) [Time] 10.6 s Normal 9.0-11.6 [facility] Comment on above: Performed By: #### H GBHCT #### [facility] [address] [place] [address] Dr. Raimundo Estrada PTTon 04-03-2022 aPTT Coag (Bld) [Time] 26.2 s Normal 22.3-36.2 [facility] Comment on above: Performed By: #### H GBHCT #### [facility] [address] [place] [address] Dr. Raimundo Estrada Sedimentation Rateon 022 Sed Rate 10 [facility] LIPID PROFILEon 03-12-2022 CHOL-HDL RATIO NORM SEE BELOW Normal [facility] Comment on above: Result Comment: 3.3 - 4.4 LOW RISK 4.4 - 7.1 AVERAGE RISK 7.1 - 11.0 MODERATE RISK >11.0 HIGH RISK Performed By: #### L IPID #### [facility] [id number] Raimundo Estrada Cholesterol [Mass/Vol] 126 mg/dL Normal <=200 [facility] Comment on above: Performed By: #### L IPID #### [facility] [id number] Raimundo Estrada Cholesterol in HDL [Mass/Vol] 68 mg/dL Critically high 40-60 [facility] Comment on above: Performed By: #### L IPID #### [facility] [address] [address] [address] Raimundo Estrada Cholesterol in LDL [Mass/Vol] 52.0 mg/dL Normal [facility] Comment on above: Performed By: #### L IPID #### [facility] [id number] Raimundo Estrada Cholesterol.total/Ch olesterol in HDL [Mass ratio] 1.9 {ratio} Normal [facility] Comment on above: Performed By: #### L IPID #### [facility] [id number] Raimundo Estrada HDL NORMAL > or = 60 mg/dl - LO W CARDIOVASCULAR RISK <40 mg/dl - HIGH CARDIOVASCULAR RISK Normal [facility] Comment on above: Performed By: #### L IPID #### [facility] [address] [place], [place] [address] Dr. Raimundo Estrada LDL CALC NORMAL SEE BELOW Normal [facility] Comment on above: Result Comment: <100 mg/dl OPTIMAL 100 - 129 mg/dl NEAR OR ABOVE OPTIMAL 130 - 159 mg/dl BORDERLINE HIGH 160 - 189 mg/dl HIGH >190 mg/dl VERY HIGH Performed By: #### L IPID #### [facility] [id number] Raimundo Estrada Triglyceride [Mass/Vol] 30 mg/dL Normal <=150 [facility] Comment on above: Performed By: #### L IPID #### [facility] [address] [place], [place] [address] Dr. Raimundo Estrada VLDL CALC 6.0 mg/dL Normal [facility] Comment on above: Performed By: #### L IPID #### [facility] [address] [place], [place] [address] Dr. Raimundo Estrada CBC Auto DifferentialOrdered By: Julian Dougherty on 03-09-2021 [employer] Eos # <0.03 [employer] [facility] Work Phone: [employer] Immature Granulocyte 0.04 [employer] Work Phone: Absolute Lymph # 1.49 [employer] [facility] Work Phone: Absolute [place] # 1.27 High [employer] [facility] Work Phone: Basophils (Bld) [#/Vol] 0.03 10*3/uL [employer] Work Phone: Basophils/100 WBC (Bld) 0 % 0 - 2 % [employer] Phone: Differential Type NOT REPORTED [employer] Phone: Eosinophils/100 WBC (Bld) 0 % Low 1 - 4 % [employer] Work Phone: Hematocrit (Bld) [Volume fraction] 41.8 % 40.7 - 50.3 % [employer] Phone: Hemoglobin.gastroint estinal spec 1 Ql (Stl) 14.3 g/dL 13.0 - 17.0 g/dL [employer] Work Phone: Immature granulocytes/100 WBC (Bld) 0 % 0 [employer] Work Phone: Interpretation and review of laboratory results Abnormal [employer] Work Phone: Lymphocytes/100 WBC (Bld) 14 % Low 24 - 43 % [employer] Phone: MCH (RBC) [Entitic mass] 30.6 pg 25.2 - 33.5 pg [employer] Phone: MCHC (RBC) [Mass/Vol] 34.2 g/dL 28.4 - 34.8 g/dL [employer] Phone: MCV (RBC) [Entitic vol] 89.5 fL 82.6 - 102.9 fL [employer] Phone: Monocytes/100 WBC (Bld) 12 % 3 - 12 % [employer] Phone: NRBC Automated 0.0 0.0 per 100 WBC [employer] Phone: Platelet distribution width (Bld) [Ratio] 13.2 % 11.8 - 14.4 % [employer] Phone: Platelet Estimate NOT REPORTED [employer] Phone: Platelet mean volume (Bld) [Entitic vol] 10.3 fL 8.1 - 13.5 fL [employer] Phone: Platelets (Bld) [#/Vol] 169 10*3/uL [employer] Phone: RBC (Bld) [#/Vol] 4.67 10*6/uL 4.21 - 5.77 m/uL [employer] Phone: RBC (Bld) [#/Vol] NOT REPORTED [employer] Phone: Segmented neutrophils/100 WBC (Bld) 74 % High 36 - 65 % [employer] Phone: Segs Absolute 7.59 [employer] Phone: WBC (Bld) [#/Vol] 10.4 10*3/uL [employer] Phone: WBC (Bld) [#/Vol] NOT REPORTED [employer] Phone: [employer] Phone: Sedimentation RateOrdered By : Julian Dougherty on 03-09-2021 Interpretation and review of laboratory results Abnormal [employer] Phone: Sed Rate 63 mm High 0 - 20 mm [employer] Phone: [employer] Phone: Uric AcidOrdered By: Julian Dougherty on 03-09-2021 Urate [Mass/Vol] 4.3 mg/dL 3.4 - 7.0 mg/dL [employer] Phone: [employer] Phone: XR WRIST RIGHT (MIN 3 VIEWS) Ordered By: Julian Dougherty on 03-09-2021 Arthritic changes an d mild soft tissue swelling without acute osseous abnormality. [employer] Phone: EXAMINATION: 3 XRAY VIEWS OF THE [...] No acute fracture, or dislocation is noted. [employer] Phone: Mauri, Mhpn Incoming R adiant Results From [facility] - 03/09/2021 10:56 AM EDT EXAMINATION: 3 [...] soft tissue swelling without acute osseous abnormality. [employer] Phone: [employer] Phone: VL DUP CAROTID BILATERALon 1 [facility] Carot[facility] Procedure Patient Name ALVA Date of Study 08/16/2020 NOEL Vaca Date of 1960 Gender Male Age 59 year(s) Race Room Number Corporate ID # [id number] Patient MR # [id number] Optical Laboratory Manager KEVON Tobar Interpreting Physician Mike Centeno MD [...] left side. - Additional Measurements:ICAPSV/CCAPSV 0.76.ICAEDV/CCAEDV 1.49. [facility] [place], [place] Mauri, Sadaf Branch ardio Results From [facility] - 08/17/2020 9:08 AM [facility] Vascular Carotid Procedure Patient Name ALVA Date of Study 08/16/2020 NOEL Vaca Date of 1960 Gender Male Age 59 year(s) Race Room Number Corporate ID # [id number] Patient MR # [id number] Optical Laboratory Manager KEVON Tobar Interpreting Physician Mike Centeno MD [...] left side. - Additional Measurements:ICAPSV/CCAPSV 0.76.ICAEDV/CCAEDV 1.49. [place] CBC auto differentialon 10-1 3-2020 Basophils (Bld) [#/Vol] 0.04 10*3/uL [place] Basophils/100 WBC (Bld) 0 % 0 - 2 % [place] Differential Type NOT REPORTED [place] Eosinophils (Bld) [#/Vol] 0.04 10*3/uL [place] Eosinophils/100 WBC (Bld) 0 % Low 1 - 4 % [place] Erythrocyte distribution width (RBC) [Ratio] 13.9 % 11.8 - 14.4 % [place] Hematocrit (Bld) [Volume fraction] 42.7 % 40.7 - 50.3 % [place] Hemoglobin (Bld) [Mass/Vol] 14.3 g/dL 13 - 17 g/dL [place] Immature granulocytes (Bld) [#/Vol] 0.03 10*3/uL [place] Immature granulocytes (Bld) [#/Vol] 0 % 0 [place] Interpretation and review of laboratory results Abnormal [place] Lymphocytes (Bld) [#/Vol] 1.95 10*3/uL [place] Lymphocytes/100 WBC (Bld) 20 % Low 24 - 43 % [place] MCH (RBC) [Entitic mass] 31.2 pg 25.2 - 33.5 pg [place] MCHC (RBC) [Mass/Vol] 33.5 g/dL 28.4 - 34.8 g/dL [place] MCV (RBC) [Entitic vol] 93.0 fL 82.6 - 102.9 fL [place] Monocytes (Bld) [#/Vol] 0.96 10*3/uL [place] Monocytes/100 WBC (Bld) 10 % 3 - 12 % [place] Platelet mean volume (Bld) [Entitic vol] 10.2 fL 8.1 - 13.5 fL [place] Platelets (Bld) [#/Vol] NOT REPORTED [place] Platelets (Bld) [#/Vol] 189 10*3/uL [place] RBC (Bld) [#/Vol] 4.59 10*6/uL 4.21 - 5.77 m/uL [place] RBC morphology finding Nom (Bld) NOT REPORTED [place] Segmented neutrophils/100 WBC (Bld) 70 % High 36 - 65 % [place] Segs Absolute 7.00 [place] WBC (Bld) [#/Vol] 10.0 10*3/uL [place] WBC (Bld) [#/Vol] 0.0 10*3/uL 0.0 per 100 WBC [place] WBC Morphology NOT REPORTED [place] CT ABDOMEN PELVIS WO CONTRAS T [...] to suggest a definite acute inflammatory process. [place] EXAMINATION: [facility] AND PELVIS WITHOUT CONTRAST [...] and moderate canal stenosis. No pars defects. [facility] [place], [place] Mauri, Mhpn Incoming R adiant Results From [facility] - 07/18/2020 9:12 AM EDT EXAMINATION: CT [...] to suggest a definite acute inflammatory process. [place] Comprehensive Metabolic Pane pat 07-18-2020 Albumin [Mass/Vol] 4.3 g/dL 3.5 - 5.2 g/dL [place] Albumin/Globulin [Mass ratio] 1.5 {ratio} [place] ALP [Catalytic activity/Vol] 71 U/L 40 - 129 U/L [place] ALT [Catalytic activity/Vol] 26 U/L 5 - 41 U/L [place] Anion gap [Moles/Vol] 13 mmol/L 9 - 17 mmol/L [place] AST [Catalytic activity/Vol] 26 U/L <40 [place] Bilirubin Ql (U) 1.44 mg/dL High 0.3 - 1.2 mg/dL [place] Bun/Cre Ratio 28 High [place] Calcium [Mass/Vol] 9.4 mg/dL 8.6 - 10. 4 mg/dL [place] Chloride [Moles/Vol] 103 mmol/L 98 - 10 7 mmol/L [place] CO2 [Moles/Vol] 23 mmol/L 20 - 31 mmol/L [place] Creatinine [Mass/Vol] 0.79 mg/dL 0.7 - 1.2 mg/dL [place] GFR >60 >60 mL/min [place] GFR Non- >60 >60 mL/min [place] Glucose [Mass/Vol] 93 mg/dL 70 - 99 mg/dL [place] Interpretation and review of laboratory results Abnormal [place] Potassium [Moles/Vol] 3.9 mmol/L 3.7 - 5.3 mmol/L [place] Protein [Mass/Vol] 7.1 g/dL 6.4 - 8.3 g/dL [place] Sodium [Moles/Vol] 139 mmol/L 135 - 144 mmol/L [place] Urea nitrogen [Mass/Vol] 22 mg/dL High 6 - 20 mg/dL [place] EKG 12 Leadon 07-18-2020 Atrial Rate 58 BPM [place], [place] P Waldo 45 degrees [place] P-R Interval 138 ms [place], [place] Q-T Interval 478 ms [place] QRS Duration 74 ms [place] QTc Calculation (Bazett) 469 ms [place], [place] R Waldo 49 degrees [place], [place] T Waldo 129 degrees [place] Ventricular Rate 58 BPM [place] Sinus bradycardia T wave abnormality, consider lateral ischemia Prolonged QT Abnormal ECG When compared with ECG of 14-JUN-2019 10:26, Nonspecific T wave abnormality has replaced inverted T waves in Inferior leads T wave inversion less evident in Anterior leads Confirmed by JW KAY ([id number]) on 07/18/2020 11:37:03 AM [place] Mauri, Mhpn Incoming E kg [place] [facility] [place] 07/18/2020 11:37 AM EDT Sinus bradycardia T wave abnormality, consider lateral ischemia Prolonged QT Abnormal ECG When compared with ECG of 14-JUN-2019 10:26, Nonspecific T wave abnormality has replaced inverted T waves in Inferior leads T wave inversion less evident in Anterior leads Confirmed by JW KAY ([id number]) on 07/18/2020 11:37:03 AM [place] Lipaseon 07-18-2020 Lipase [Catalytic activity/Vol] 30 U/L 13 - 60 U/L [place] Metabolic Panelon 07-18-2020 GFR/1.73 sq M predicted among non-blacks MDRD (S/P/Bld) [Vol rate/Area] [place], [place] Comment on above: Stage 1: Some [...] body mass. Additional eGFR calculator available at: http://www.Vlingo/multiple_crcl_2012.htm Microscopic Urinalysison Amorphous, UA NOT REPORTED None [place] Bacteria, UA NOT REPORTED None [place] Casts UA NOT REPORTED /LPF [place] Crystals, UA NOT REPORTED None /HPF [place] Epithelial Cells UA 0 TO 2 [place] Mucus, UA NOT REPORTED None [place] Other Observations UA NOT REPORTED NOT REQ. [place] RBC (U) [#/Vol] None [place] Renal Epithelial, UA NOT REPORTED 0 /HPF [place] Trichomonas, UA NOT REPORTED None [place], [place] WBC, UA 0 TO 2 [place] Yeast, UA NOT REPORTED None [place], [place] - [place] Troponinon 07-18-2020 Troponin I.cardiac [Mass/Vol] NOT REPORTED [place] Troponin T.cardiac [Mass/Vol] NOT REPORTED <0.03 ng/mL [place] Troponin, High Sensitivity 18 ng/L 0 - 22 ng/L [place] Comment on above: High Sensitivity Troponin values cannot be compared with other Troponin methodologies. Patients with high levels of Biotin oral intake (i.e >5mg/day) may have falsely decreased Troponin levels. Samples collected within 8 hours of biotin intake may require additional information for diagnosis. Troponin I.cardiac [Mass/Vol] NOT REPORTED [place] Troponin T.cardiac [Mass/Vol] NOT REPORTED <0.03 ng/mL [place] Troponin, High Sensitivity 21 ng/L 0 - 22 ng/L [place] Comment on above: High Sensitivity Troponin values cannot be compared with other Troponin methodologies. Patients with high levels of Biotin oral intake (i.e >5mg/day) may have falsely decreased Troponin levels. Samples collected within 8 hours of biotin intake may require additional information for diagnosis. Urinalysis Reflex to Culture on 07-18-2020 Bilirubin Urine Negative NEGATIVE [place] Color, UA YELLOW YELLOW [place], [place] Glucose, Ur Negative NEGATIVE [place] Interpretation and review of laboratory results Abnormal [place] Ketones Ql (U) 1+ Abnormal NEGATIVE [place] Leukocyte esterase Test strip Ql (U) Negative NEGATIVE [place] Nitrite, Urine Negative NEGATIVE [place] pH, UA 7.0 [place] Protein (U) [Mass/Vol] Negative NEGATIVE [place] Specific [place], UA 1.020 [place] Turbidity UA CLEAR CLEAR [place], [place] Urinalysis Comments NOT REPORTED [place] Urine Hgb Negative NEGATIVE [place] Urobilinogen, Urine Normal Normal [place] XR CHEST (SINGLE VIEW FRONTA L)on 07-18-2020 Mauri, Mhpn Incoming R adiant Results From [facility] - 07/18/2020 8:54 AM EDT EXAMINATION: ONE XRAY VIEW OF THE CHEST 07/18/2020 8:44 am COMPARISON: June 14, 2019 HISTORY: ORDERING SYSTEM PROVIDED HISTORY: epig pain TECHNOLOGIST PROVIDED HISTORY: epig pain FINDINGS: Is no evidence of focal infiltrate, effusion, pneumothorax. Heart mediastinum appear normal. Visualized bony thorax shows no acute abnormality. IMPRESSION: No acute findings of the chest, stable when compared to previous. [place] EXAMINATION: ONE XRA Y VIEW OF THE CHEST 07/18/2020 8:44 am COMPARISON: June 14, 2019 HISTORY: ORDERING SYSTEM PROVIDED HISTORY: epig pain TECHNOLOGIST PROVIDED HISTORY: epig pain FINDINGS: Is no evidence of focal infiltrate, effusion, pneumothorax. Heart mediastinum appear normal. Visualized bony thorax shows no acute abnormality. [place] No acute findings of the chest, stable when compared to previous. [place] CBC Auto Differentialon 09-0 Basophils (Bld) [#/Vol] 0.05 10*3/uL [place] Basophils/100 WBC (Bld) 1 % 0 - 2 % [place] Differential Type NOT REPORTED [place] Eosinophils (Bld) [#/Vol] 10*3/uL [place] Eosinophils/100 WBC (Bld) 0 % Low 1 - 4 % [place] Erythrocyte distribution width (RBC) [Ratio] 12.9 % 11.8 - 14.4 % [place] Hematocrit (Bld) [Volume fraction] 45.7 % 40.7 - 50.3 % [place] Hemoglobin (Bld) [Mass/Vol] 15.5 g/dL 13 - 17 g/dL [place] Immature granulocytes (Bld) [#/Vol] 10*3/uL [place] Immature granulocytes (Bld) [#/Vol] 0 % 0 [place] Interpretation and review of laboratory results Abnormal [place] Lymphocytes (Bld) [#/Vol] 1.83 10*3/uL [place] Lymphocytes/100 WBC (Bld) 19 % Low 24 - 43 % [place] MCH (RBC) [Entitic mass] 31.1 pg 25.2 - 33.5 pg [place] MCHC (RBC) [Mass/Vol] 33.9 g/dL 28.4 - 34.8 g/dL [place] MCV (RBC) [Entitic vol] 91.6 fL 82.6 - 102.9 fL [place] Monocytes (Bld) [#/Vol] 0.86 10*3/uL [place] Monocytes/100 WBC (Bld) 9 % 3 - 12 % [place] Platelet mean volume (Bld) [Entitic vol] 9.7 fL 8.1 - 13.5 fL [place] Platelets (Bld) [#/Vol] 195 10*3/uL [place] Platelets (Bld) [#/Vol] NOT REPORTED [place] RBC (Bld) [#/Vol] 4.99 10*6/uL 4.21 - 5.77 m/uL [place] RBC morphology finding Nom (Bld) NOT REPORTED [place] Segmented neutrophils/100 WBC (Bld) 71 % High 36 - 65 % [place] Segs Absolute 7.08 [place] WBC (Bld) [#/Vol] 9.9 10*3/uL [place] WBC (Bld) [#/Vol] 0.0 10*3/uL 0.0 per 100 WBC [place] WBC Morphology NOT REPORTED [place] Comprehensive Metabolic Pane l w/ Reflex to MGon 06-14-2019 Albumin [Mass/Vol] 4.4 g/dL 3.5 - 5.2 g/dL [place] Albumin/Globulin [Mass ratio] 1.2 {ratio} [place] ALP [Catalytic activity/Vol] 77 U/L 40 - 129 U/L [place] ALT [Catalytic activity/Vol] 19 U/L 5 - 41 U/L [place] Anion gap [Moles/Vol] 15 mmol/L 9 - 17 mmol/L [place] AST [Catalytic activity/Vol] 22 U/L <40 [place] Bilirubin Ql (U) 0.61 mg/dL 0.3 - 1.2 mg/dL [place] Bun/Cre Ratio 23 High [place] Calcium [Mass/Vol] 10.0 mg/dL 8.6 - 10. 4 mg/dL [place] Chloride [Moles/Vol] 98 mmol/L 98 - 10 7 mmol/L [place] CO2 [Moles/Vol] 24 mmol/L 20 - 31 mmol/L [place] Creatinine [Mass/Vol] 0.82 mg/dL 0.7 - 1.2 mg/dL [place] GFR >60 >60 mL/min [place] GFR Non- >60 >60 mL/min [place] Glucose [Mass/Vol] 98 mg/dL 70 - 99 mg/dL [place] Interpretation and review of laboratory results Abnormal [place] Potassium [Moles/Vol] 4.0 mmol/L 3.7 - 5.3 mmol/L [place] Protein [Mass/Vol] 8.2 g/dL 6.4 - 8.3 g/dL [place] Sodium [Moles/Vol] 137 mmol/L 135 - 144 mmol/L [place] Urea nitrogen [Mass/Vol] 19 mg/dL 6 - 20 mg/dL [place] D-Dimer, Quantitativeon D-Dimer, Quant 0.42 [place], [place] Comment on above: Elevated levels of [...] activity/Vol] 37 U/L 13 - 60 U/L [place] Metabolic Panelon 06-14-2019 GFR/1.73 sq M predicted among non-blacks MDRD (S/P/Bld) [Vol rate/Area] [place] Comment on above: Average GFR for 50-5 9 years old: 93 mL/min/1.73sq m Chronic Kidney Disease: <60 mL/min/1.73sq m Kidney failure: <15 mL/min/1.73sq m eGFR calculated using average adult body mass. Additional eGFR calculator available at: http://www.Vlingo/multiple_crcl_2012.htm Stage 1: Some kidney damage normal GFR Stage 2: Mild kidney damage GFR 60-89 Stage 3: Moderate kidney damage GFR 30-59 Stage 4: Severe kidney damage GFR 15-29 Stage 5: Severe kidney damage GFR <15 ESRD - chronic treatment by dialysis or transplant Troponinon 06-14-2019 Troponin I.cardiac [Mass/Vol] [place] Comment on above: Reference Range: <0.03 [...] diagnosis. Troponin T.cardiac [Mass/Vol] ug/L <0.03 ng/mL [place] Comment on above: Troponin T results c annot be compared to Troponin-I results. Troponin, High Sensitivity NOT REPORTED 0 - 22 ng/L [place] Troponin I.cardiac [Mass/Vol] [place] Comment on above: Reference Range: <0.03 [...] diagnosis. Troponin T.cardiac [Mass/Vol] ug/L <0.03 ng/mL [place] Comment on above: Troponin T results c annot be compared to Troponin-I results. Troponin, High Sensitivity NOT REPORTED 0 - 22 ng/L [place] APTTon 01-13-2018 aPTT 24.4 s Normal 20.5-30.5 [facility] Comment on above: Result Comment: [address] [address] Performed By: #### C BC, PTT, TROPI, GLYHGB ####[address] [address] Basic Metabolic Profon 01-13 (cont.) Normal [facility] Comment on above: Result Comment: Aver age GFR for 50-59 years old: 93 mL/min/1.73sq mChronic Kidney Disease: <60 mL/min/1.73sq mKidney failure: <15 mL/min/1.73sq meGFR calculated using average adult body mass. Additional eGFR calculator available at:http://www.Vlingo/multiple_crcl_2011.htm[address] [address] Performed By: #### C BC, PTT, TROPI, GLYHGB ####[address] [address] Anion gap 9 mmol/L Normal 9-17 [facility] Comment on above: Performed By: #### C BC, PTT, TROPI, GLYHGB ####[address] [address] Calcium 9.3 mg/dL Normal 8.6-10.4 [facility] Comment on above: Performed By: #### C BC, PTT, TROPI, GLYHGB ####[address] [address] Chloride 102 mmol/L Normal 98-107 [facility] Comment on above: Performed By: #### C BC, PTT, TROPI, GLYHGB ####[address] [address] CO2 24 mmol/L Normal 20-31 [facility] Comment on above: Performed By: #### C BC, PTT, TROPI, GLYHGB ####[facility] [place] [address] Creatinine 0.75 mg/dL Normal 0.70-1.20 [facility] Comment on above: Performed By: #### C BC, PTT, TROPI, GLYHGB ####[facility] [address] [place] [address] eGFR (non-black) mL/min/{1.73_m2} Normal >60 [facility] Comment on above: Performed By: #### C BC, PTT, TROPI, GLYHGB ####[address] [address] Glucose mass conc 104 mg/dL High 70-99 [facility] Comment on above: Performed By: #### C BC, PTT, TROPI, GLYHGB ####[address] [place] [address] Potassium molar conc 5.0 mmol/L Normal 3.7-5.3 [facility] Comment on above: Result Comment: TEST CONFIRMED Performed By: #### C BC, PTT, TROPI, GLYHGB ####[facility] [address] [place] [address] Sodium 135 mmol/L Normal 135-144 [facility] Comment on above: Performed By: #### C BC, PTT, TROPI, GLYHGB ####[facility] [place] [address] Urea nitrogen 12 mg/dL Normal 6-20 [facility] Comment on above: Performed By: #### C BC, PTT, TROPI, GLYHGB ####[facility] [place] [address] BUN/CRE Ratio NOT REPORTED Normal 9-20 [facility] Comment on above: Performed By: #### C BC, PTT, TROPI, GLYHGB ####[address] [address] Staging: NOT REPORTED Normal [facility] Comment on above: Performed By: #### C BC, PTT, TROPI, GLYHGB ####[address] [address] (cont.) Normal [facility] Comment on above: Result Comment: Aver age GFR for 50-59 years old: 93 mL/min/1.73sq mChronic Kidney Disease: <60 mL/min/1.73sq mKidney failure: <15 mL/min/1.73sq meGFR calculated using average adult body mass. Additional eGFR calculator available at:http://www.Vlingo/multiple_crcl_2012.htmJohn [facility] [address] [place] [address] Performed By: #### C BC, PTT, TROPI, GLYHGB ####[address] [address] Anion gap 11 mmol/L Normal 9-17 [facility] Comment on above: Performed By: #### C BC, PTT, TROPI, GLYHGB ####[facility] [address] [place] [address] Calcium 8.6 mg/dL Normal 8.6-10.4 [facility] Comment on above: Performed By: #### C BC, PTT, TROPI, GLYHGB ####[facility] [address] [place] [address] Chloride 100 mmol/L Normal 98-107 [facility] Comment on above: Performed By: #### C BC, PTT, TROPI, GLYHGB ####[facility] [address] [place] [address] CO2 24 mmol/L Normal 20-31 [facility] Comment on above: Performed By: #### C BC, PTT, TROPI, GLYHGB ####[facility] [place] [address] Creatinine 0.64 mg/dL Low 0.70-1.20 [facility] Comment on above: Performed By: #### C BC, PTT, TROPI, GLYHGB ####[facility] [address] [place] [address] eGFR (non-black) mL/min/{1.73_m2} Normal >60 [facility] Comment on above: Performed By: #### C BC, PTT, TROPI, GLYHGB ####[address] [address] Glucose mass conc 102 mg/dL High 70-99 [facility] Comment on above: Performed By: #### C BC, PTT, TROPI, GLYHGB ####[facility] [place] [address] Potassium molar conc 3.5 mmol/L Low 3.7-5.3 [facility] Comment on above: Performed By: #### C BC, PTT, TROPI, GLYHGB ####[facility] [address] [place] [address] Sodium 135 mmol/L Normal 135-144 [facility] Comment on above: Performed By: #### C BC, PTT, TROPI, GLYHGB ####[address] [place] [address] Urea nitrogen 12 mg/dL Normal 6-20 [facility] Comment on above: Performed By: #### C BC, PTT, TROPI, GLYHGB ####[facility] [address] [place] [address] BUN/CRE Ratio NOT REPORTED Normal - [facility] Comment on above: Performed By: #### C BC, PTT, TROPI, GLYHGB ####[address] [place] [address] Staging: NOT REPORTED Normal [facility] Comment on above: Performed By: #### C BC, PTT, TROPI, GLYHGB ####[facility] [address] [place] [address] Discharge Summaryon 01-14-20 18 HIM IP Note OR Policyholder Information Clerk Normal [facility] Magnesiumon 01-13-2018 Magnesium 2.2 mg/dL Normal 1.6-2.6 [facility] Comment on above: Result Comment: [facility] [address] [place] [address] Performed By: #### C BC, PTT, TROPI, GLYHGB ####[address] [place] [address] Magnesium 2.1 mg/dL Normal 1.6-2.6 [facility] Comment on above: Result Comment: [facility] [address] [place] [address] Performed By: #### C BC, PTT, TROPI, GLYHGB ####[facility] [address] [place] [address] Plan of Careon 01-13-2018 HIM IP Note OR Policyholder Information Clerk Normal [facility] Progress Noteon 01-13-2018 HIM IP Note OR Policyholder Information Clerk Normal [facility] HIM IP Note OR Policyholder Information Clerk Normal [facility] HIM IP Note OR Policyholder Information Clerk Normal [facility] APTTon 01-12-2018 aPTT 47.5 s High 20.5-30.5 [facility] Comment on above: Result Comment: [facility] [address] [place] [address] Performed By: #### P TT ####Mercjoanne [address] [place] [address] aPTT 48.3 s High 20.5-30.5 [facility] Comment on above: Result Comment: [facility] [address] [place] [address] Performed By: #### P LT, PTT ####[address] [address] aPTT 50.8 s High 20.5-30.5 [facility] Comment on above: Result Comment: [facility] [address] [place] [address] Performed By: #### P TT ####[address] [address] Platelet Counton 01-12-2018 Platelets 154 10*3/uL Normal 138-453 [facility] Comment on above: Result Comment: [facility] [address] [place] [address] Performed By: #### P LT, PTT ####[address] [address] Progress Noteon 01-12-2018 HIM IP Note OR Policyholder Information Clerk Normal [facility] APTTon 01-11-2018 aPTT 38.0 s High 20.5-30.5 [facility] Comment on above: Result Comment: [facility] [address] [place] [address] Performed By: #### P TT ####[address] [address] aPTT 35.3 s High 20.5-30.5 [facility] Comment on above: Result Comment: [facility] [address] [place] [address] Performed By: #### P TT ####[address] [address] aPTT 30.5 s Normal 20.5-30.5 [facility] Comment on above: Result Comment: [facility] [address] [place] [address] Performed By: #### P TT ####[address] [address] CBCon 01-11-2018 Erythrocyte distribution width Auto Ratio (RBC) 14.0 % Normal 11.8-14.4 [facility] Comment on above: Performed By: #### C BC, CP, LIPR, MG ####[address] [address] Erythrocytes (RBC) 0.0 per 100 WBC Normal 0.0 [facility] Comment on above: Result Comment: [facility] [employer] [facility] [address] [place] [address] Performed By: #### C BC, CP, LIPR, MG ####[address] [address] Erythrocytes (RBC) 4.36 10*6/uL Normal 4.21-5.77 [facility] Comment on above: Performed By: #### C BC, CP, LIPR, MG ####[address] [address] Hematocrit (HCT) 40.6 % Low 40.7-50.3 [facility] Comment on above: Performed By: #### C BC, CP, LIPR, MG ####[address] [address] Hemoglobin mass conc (Bld) 13.3 g/dL Normal 13.0-17.0 [facility] Comment on above: Performed By: #### C BC, CP, LIPR, MG ####[address] [address] MCH 30.5 pg Normal 25.2-33.5 [facility] Comment on above: Performed By: #### C BC, CP, LIPR, MG ####[address] [place] [address] MCHC mass conc (RBC) 32.8 g/dL Normal 28.4-34.8 [facility] Comment on above: Performed By: #### C BC, CP, LIPR, MG ####[address] [address] MCV 93.1 fL Normal 82.6-102.9 [facility] Comment on above: Performed By: #### C BC, CP, LIPR, MG ####[address] [address] Platelet mean volume (PMV) 10.1 fL Normal 8.1-13.5 [facility] Comment on above: Performed By: #### C BC, CP, LIPR, MG ####[address] [address] Platelets 153 10*3/uL Normal 138-453 [facility] Comment on above: Performed By: #### C BC, CP, LIPR, MG ####[address] [address] WBC (Leukocytes) 9.5 10*3/uL Normal 3.5-11.3 [facility] Comment on above: Performed By: #### C BC, CP, LIPR, MG ####[address] [address] Comp Metabolic Profon 2017 (cont.) Normal [facility] Comment on above: Result Comment: Aver age GFR for 50-59 years old: 93 mL/min/1.73sq mChronic Kidney Disease: <60 mL/min/1.73sq mKidney failure: <15 mL/min/1.73sq meGFR calculated using average adult body mass. Additional eGFR calculator available at:http://[email or web address] [email or web address]/multiple_[email or web address] [facility] [address] [place] [address] Performed By: #### C BC, CP, LIPR, MG ####[facility] [place] [address] Alanine aminotransferase (ALT) 17 U/L Normal 5-41 [facility] Comment on above: Performed By: #### C BC, CP, LIPR, MG ####[facility] [place] [address] Albumin 3.6 g/dL Normal 3.5-5.2 [facility] Comment on above: Performed By: #### C BC, CP, LIPR, MG ####[address] [address] Albumin/Globulin Ratio 1.3 {ratio} Normal 1.0-2.5 [facility] Comment on above: Performed By: #### C BC, CP, LIPR, MG ####[address] [address] Alkaline Phos 76 U/L Normal 40-129 [facility] Comment on above: Performed By: #### C BC, CP, LIPR, MG ####[facility] [place] [address] Anion gap 14 mmol/L Normal 9-17 [facility] Comment on above: Performed By: #### C BC, CP, LIPR, MG ####[facility] [address] [place] [address] Aspartate aminotransferase (AST) 15 U/L Normal <40 [facility] Comment on above: Performed By: #### C BC, CP, LIPR, MG ####[facility] [address] [place] [address] Bilirubin Ql (U) 1.13 mg/dL Normal 0.3-1.2 [facility] Comment on above: Performed By: #### C BC, CP, LIPR, MG ####[facility] [address] [place] [address] Calcium 8.4 mg/dL Low 8.6-10.4 [facility] Comment on above: Performed By: #### C BC, CP, LIPR, MG ####[facility] [address] [place] [address] Chloride 97 mmol/L Low 98-107 [facility] Comment on above: Performed By: #### C BC, CP, LIPR, MG ####[address] [address] CO2 23 mmol/L Normal 20-31 [facility] Comment on above: Performed By: #### C BC, CP, LIPR, MG ####[facility] [address] [place] [address] Creatinine 0.63 mg/dL Low 0.70-1.20 [facility] Comment on above: Performed By: #### C BC, CP, LIPR, MG ####[facility] [address] [place] [address] eGFR (non-black) mL/min/{1.73_m2} Normal >60 [facility] Comment on above: Performed By: #### C BC, CP, LIPR, MG ####[facility] [address] [place] [address] Glucose mass conc 107 mg/dL High 70-99 [facility] Comment on above: Performed By: #### C BC, CP, LIPR, MG ####[facility] [address] [place] [address] Potassium molar conc 3.6 mmol/L Low 3.7-5.3 [facility] Comment on above: Performed By: #### C BC, CP, LIPR, MG ####[address] [place] [address] Protein 6.4 g/dL Normal 6.4-8.3 [facility] Comment on above: Performed By: #### C BC, CP, LIPR, MG ####[address] [address] Sodium 134 mmol/L Low 135-144 [facility] Comment on above: Performed By: #### C BC, CP, LIPR, MG ####[address] [address] Urea nitrogen 19 mg/dL Normal 6-20 [facility] Comment on above: Performed By: #### C BC, CP, LIPR, MG ####[facility] [address] [place] [address] BUN/CRE Ratio NOT REPORTED Normal -20 [facility] Comment on above: Performed By: #### C BC, CP, LIPR, MG ####[address] [address] Staging: NOT REPORTED Normal [facility] Comment on above: Performed By: #### C BC, CP, LIPR, MG ####[address] [address] Hemoglobin A1Con 01-11-2018 Glucose mass conc 114 mg/dL Normal [facility] Comment on above: Result Comment: The ADA and AACC recommend providing the estimated average glucose result to permit better patient understanding of their HBA1c result.[address] [address] Performed By: #### C BC, PTT, TROPI, GLYHGB ####[address] [address] Hemoglobin A1c/Hemoglobin.total mass fraction (Bld) 5.6 % Normal 4.0-6.0 [facility] Comment on above: Performed By: #### C BC, PTT, TROPI, GLYHGB ####[address] [address] Lipid Profileon 01-11-2018 Cholesterol 123 mg/dL Normal <200 [facility] Comment on above: Result Comment: Chol esterol Guidelines: <200 Desirable 200-240 Borderline >240 Undesirable Performed By: #### C BC, CP, LIPR, MG ####[address] [address] Cholesterol to HDL Ratio 2.0 {ratio} Normal <5 [facility] Comment on above: Performed By: #### C BC, CP, LIPR, MG ####[address] [address] HDL Cholesterol 63 mg/dL Normal >40 [facility] Comment on above: Result Comment: HDL Guidelines: <40 Undesirable 40-59 Borderline >59 Desirable Performed By: #### C BC, CP, LIPR, MG ####[address] [address] LDL Cholesterol 38 mg/dL Normal 0-130 [facility] Comment on above: Result Comment: LDL Guidelines: <100 Desirable 100-129 Near to/above Desirable 130-159 Borderline >159 UndesirableDirect (measured) LDL and calculated LDL are not interchangeable tests. Performed By: #### C BC, CP, LIPR, MG ####[address] [address] Triglyceride 111 mg/dL Normal <150 [facility] Comment on above: Result Comment: Trig lyceride Guidelines: <150 Desirable 150- 199 Borderline 200-499 High >499 Very high Based on AHA Guidelines for fasting triglyceride, July 2012.[address] [address] Performed By: #### C BC, CP, LIPR, MG ####[facility] [address] [place] [address] Cholesterol in VLDL mass conc NOT REPORTED Normal 1-30 [facility] Comment on above: Performed By: #### C BC, CP, LIPR, MG ####[facility] [place] [address] Magnesiumon 01-11-2018 Magnesium 2.1 mg/dL Normal 1.6-2.6 [facility] Comment on above: Result Comment: [facility] [employer] [facility] [address] [place] [address] Performed By: #### C BC, CP, LIPR, MG ####[address] [address] Plan of Careon 01-11-2018 HIM IP Note OR Policyholder Information Clerk Normal [facility] HIM IP Note OR Policyholder Information Clerk Normal [facility] Progress Noteon 01-11-2018 HIM IP Note OR Policyholder Information Clerk Normal [facility] Troponinon 01-11-2018 Troponin I.cardiac mass conc Normal [facility] Comment on above: Result Comment: Refe rence Range: <0.03 Within reference range. 0.03-0.09 Possible myocardial damage.Repeat at appropriate intervals to rule out chronic elevation. >= 0.10 Indicative of myocardial damage.Patients with high levels of Biotin oral intake (i.e >5mg/day) may have falsely decreased Troponin T levels. Samples collected within 8 hours of biotin intake may require additional information for diagnosis.[facility] [employer] [facility] [address] [place] [address] Performed By: #### T ROPI ####[facility] [place] [address] Troponin T.cardiac mass conc ug/L Normal <0.03 [facility] Comment on above: Result Comment: Trop onin T results cannot be compared to Troponin-I results. Performed By: #### T ROPI ####[address] [address] APTTon 01-10-2018 aPTT 23.8 s Normal 20.5-30.5 [facility] Comment on above: Result Comment: [address] [address] Performed By: #### C BC, PTT, TROPI, GLYHGB ####[address] [address] CBCon 01-10-2018 Erythrocyte distribution width Auto Ratio (RBC) 14.2 % Normal 11.8-14.4 [facility] Comment on above: Performed By: #### C BC, PTT, TROPI, GLYHGB ####[address] [address] Erythrocytes (RBC) 4.47 10*6/uL Normal 4.21-5.77 [facility] Comment on above: Performed By: #### C BC, PTT, TROPI, GLYHGB ####[address] [address] Erythrocytes (RBC) 0.0 per 100 WBC Normal 0.0 [facility] Comment on above: Result Comment: [facility] [employer] [facility] [address] [place] [address] Performed By: #### C BC, PTT, TROPI, GLYHGB ####[address] [address] Hematocrit (HCT) 41.3 % Normal 40.7-50.3 [facility] Comment on above: Performed By: #### C BC, PTT, TROPI, GLYHGB ####[address] [address] Hemoglobin mass conc (Bld) 13.5 g/dL Normal 13.0-17.0 [facility] Comment on above: Performed By: #### C BC, PTT, TROPI, GLYHGB ####[address] [place] [address] MCH 30.2 pg Normal 25.2-33.5 [facility] Comment on above: Performed By: #### C BC, PTT, TROPI, GLYHGB ####[address] [address] MCHC mass conc (RBC) 32.7 g/dL Normal 28.4-34.8 [facility] Comment on above: Performed By: #### C BC, PTT, TROPI, GLYHGB ####[address] [address] MCV 92.4 fL Normal 82.6-102.9 [facility] Comment on above: Performed By: #### C BC, PTT, TROPI, GLYHGB ####[address] [address] Platelet mean volume (PMV) 10.1 fL Normal 8.1-13.5 [facility] Comment on above: Performed By: #### C BC, PTT, TROPI, GLYHGB ####[address] [address] Platelets 160 10*3/uL Normal 138-453 [facility] Comment on above: Performed By: #### C BC, PTT, TROPI, GLYHGB ####[address] [place] [address] WBC (Leukocytes) 6.8 10*3/uL Normal 3.5-11.3 [facility] Comment on above: Performed By: #### C BC, PTT, TROPI, GLYHGB ####[address] [address] History and Physicalon 01-10 HIM IP Note OR Policyholder Information Clerk Normal [facility] Plan of Careon 01-10-2018 HIM IP Note OR Policyholder Information Clerk Normal [facility] Progress Noteon 01-10-2018 HIM IP Note OR Policyholder Information Clerk Normal [facility] Troponinon 01-10-2018 Troponin I.cardiac mass conc Normal [facility] Comment on above: Result Comment: Refe rence Range: <0.03 Within reference range. 0.03-0.09 Possible myocardial damage.Repeat at appropriate intervals to rule out chronic elevation. >= 0.10 Indicative of myocardial damage.Patients with high levels of Biotin oral intake (i.e >5mg/day) may have falsely decreased Troponin T levels. Samples collected within 8 hours of biotin intake may require additional information for diagnosis.[facility] [place] [address] Performed By: #### C BC, PTT, TROPI, GLYHGB ####[facility] [place] [address] [id number] Troponin T.cardiac mass conc ug/L Normal <0.03 [facility] Comment on above: Result Comment: Trop onin T results cannot be compared to Troponin-I results. Performed By: #### C BC, PTT, TROPI, GLYHGB ####[facility] [place] [address] Vital Signs Date Time Vital Sign Value Performing Clinician Hilda marie 06-24-2024 08:41-0400 Body height 167.6 cm Casey Mohr MD Work Phone: [facility] 06-24-2024 08:41-0400 Body mass index (BMI) [Ratio] 28.13 kg/m2 Casey Mohr MD Work Phone: [facility] 06-24-2024 08:41-0400 Body weight 79.06 kg Casey Mohr MD Work Phone: [facility] 06-24-2024 08:41-0400 Diastolic blood pressure 90 mm[Hg] Casey Mohr MD Work Phone: [facility] 06-24-2024 08:41-0400 Heart rate 65 /min Casey Mohr MD Work Phone: [facility] 06-24-2024 08:41-0400 SaO2% (BldA) [Mass fraction] 98 % Casey Mohr MD Work Phone: [facility] 06-24-2024 08:41-0400 Systolic blood pressure 158 mm[Hg] Casey Mohr MD Work Phone: [facility] 2023 06:08-0500 SaO2% (BldA) [Mass fraction] 99 % Nadia Fitzpatrick MD Work Phone: [facility] [employer] 2023 05:49-0500 Body temperature 100.09 [degF] Nadia Fitzpatrick MD Work Phone: [facility] [employer] 2023 05:49-0500 Diastolic blood pressure 52 mm[Hg] Nadia Fitzpatrick MD Work Phone: [facility] [employer] 2023 05:49-0500 Heart rate 89 /min Nadia Fitzpatrick MD Work Phone: [facility] [employer] 2023 05:49-0500 Respiratory rate 18 /min Nadia Fitzpatrick MD Work Phone: [facility] [employer] 2023 05:49-0500 Systolic blood pressure 151 mm[Hg] Nadia Fitzpatrick MD Work Phone: [facility] [employer] 09-18-2023 13:40-0500 Diastolic blood pressure 68 mm[Hg] Shaheen Chappell MD Work Phone: [facility] 09-18-2023 13:40-0500 Heart rate 68 /min Shaheen Chappell MD Work Phone: [facility] 09-18-2023 13:40-0500 SaO2% (BldA) [Mass fraction] 97 % Shaheen Chappell MD Work Phone: [facility] 09-18-2023 13:40-0500 Systolic blood pressure 101 mm[Hg] Shaheen Chappell MD Work Phone: [facility] 09-18-2023 13:10-0500 Respiratory rate 16 /min Shaheen Chappell MD Work Phone: [facility] 09-18-2023 13:00-0500 Body temperature 97 [degF] Shaheen Chappell MD Work Phone: [facility] 09-18-2023 08:35-0500 Body height 167.6 cm Shaheen Chappell MD Work Phone: [facility] 09-18-2023 08:35-0500 Body mass index (BMI) [Ratio] 27.44 kg/m2 Shaheen Chappell MD Work Phone: [facility] 09-18-2023 08:35-0500 Body weight 77.11 kg Shaheen Chappell MD Work Phone: [facility] 08-14-2023 14:38-0500 Body height 167.6 cm Casey Mohr MD Work Phone: [facility] 08-14-2023 14:38-0500 Body mass index (BMI) [Ratio] 26.87 kg/m2 Casey Mohr MD Work Phone: [facility] 08-14-2023 14:38-0500 Body weight 75.52 kg Casey Mohr MD Work Phone: [facility] 08-14-2023 14:38-0500 Diastolic blood pressure 69 mm[Hg] Casey Mohr MD Work Phone: [facility] 08-14-2023 14:38-0500 Heart rate 72 /min Casey Mohr MD Work Phone: [facility] 08-14-2023 14:38-0500 SaO2% (BldA) [Mass fraction] 98 % Casey Mohr MD Work Phone: [facility] 08-14-2023 14:38-0500 Systolic blood pressure 102 mm[Hg] Casey Mohr MD Work Phone: [facility] 07-16-2023 13:41-0400 Body height 167.6 cm Jennie Hernandez MD Work Phone: [facility] 07-16-2023 13:41-0400 Body mass index (BMI) [Ratio] 27.11 kg/m2 Jennie Hernandez MD Work Phone: [facility] 07-16-2023 13:41-0400 Body weight 76.2 kg Jennie Hernandez MD Work Phone: [facility] 07-04-2023 09:34-0400 Body height 167.6 cm Jennie Hernandez MD Work Phone: [facility] 07-04-2023 09:34-0400 Body mass index (BMI) [Ratio] 27.12 kg/m2 Jennie Hernandez MD Work Phone: [facility] 07-04-2023 09:34-0400 Body weight 76.2 kg Jennie Hernandez MD Work Phone: [facility] 06-10-2023 10:18-0400 Body height 167.6 cm Jennie Hernandez MD Work Phone: [facility] 06-10-2023 10:18-0400 Body mass index (BMI) [Ratio] 27.12 kg/m2 Jennie Hernandez MD Work Phone: [facility] 06-10-2023 10:18-0400 Body weight 76.2 kg Jennie Hernandez MD Work Phone: [facility] 05-19-2023 09:07-0400 Body height 167.6 cm Jennie Hernandez MD Work Phone: [facility] 05-19-2023 09:07-0400 Body mass index (BMI) [Ratio] 27.12 kg/m2 Jennie Hernandez MD Work Phone: [facility] 05-19-2023 09:07-0400 Body weight 76.2 kg Jennie Hernandez MD Work Phone: [facility] 04-18-2023 12:33-0400 Body height 167.6 cm Jennie Hernandez MD Work Phone: [facility] 04-18-2023 12:33-0400 Body mass index (BMI) [Ratio] 26.63 kg/m2 Jennie Hernandez MD Work Phone: [facility] 04-18-2023 12:33-0400 Body weight 74.84 kg Jennie Hernandez MD Work Phone: [facility] 02-25-2023 08:48-0400 Body height 167.6 cm Jennie Hernandez MD Work Phone: [facility] 02-25-2023 08:48-0400 Body mass index (BMI) [Ratio] 26.63 kg/m2 Jennie Hernandez MD Work Phone: [facility] 02-25-2023 08:48-0400 Body weight 74.84 kg Jennie Hernandez MD Work Phone: [facility] 12-31-2022 13:46-0400 Body temperature 97.3 [degF] Rosa Garg DO [facility] 12-31-2022 13:46-0400 Diastolic blood pressure 71 mm[Hg] Rosa Garg DO Work [facility] 12-31-2022 13:46-0400 Heart rate 72 /min Rosa Garg DO [facility] 12-31-2022 13:46-0400 Respiratory rate 16 /min Rosa Garg DO [facility] 12-31-2022 13:46-0400 SaO2% (BldA) [Mass fraction] 92 % Rosa Garg DO Work [facility] 12-31-2022 13:46-0400 Systolic blood pressure 102 mm[Hg] Rosa Garg DO Work Phone[facility] 12-31-2022 02:40-0400 Body mass index (BMI) [Ratio] 25.34 kg/m2 Rosa Garg DO Work [facility] 12-31-2022 02:40-0400 Body weight 71.2 kg Rosa Garg DO Work [facility] 12-30-2022 12:46-0400 Body height 167.6 cm Rosa Garg DO Work [facility] 05-31-2022 14:26-0400 Blood Pressure Location Julian DIAZ [facility] 05-31-2022 14:26-0400 Diastolic blood pressure 60 mm[Hg] Julian EMILY [facility] 05-31-2022 14:26-0400 Heart rate 66 /min Julian HOWELLL [facility] [place] 05-31-2022 14:26-0400 Respiratory rate 16 /min Julian HOWELLNola [facility] [place] 05-31-2022 14:26-0400 Systolic blood pressure 108 mm[Hg] Julian DIAZ [facility] 03-09-2021 12:45-0400 Respiratory rate 16 /min Julian Dougherty MD [employer] Work Phone: 03-09-2021 10:28-0400 Body height 167.6 cm Julian Dougherty MD [employer] Work Phone: 03-09-2021 10:28-0400 Body mass index (BMI) [Ratio] 25.5 kg/m2 Julian Dougherty MD [employer] Work Phone: 03-09-2021 10:28-0400 Body temperature 98.49 [degF] Julian Dougherty MD [employer] Phone: 03-09-2021 10:28-0400 Body weight 71.67 kg Julian Dougherty MD [facility] [employer] Phone: 03-09-2021 10:28-0400 Heart rate 79 /min Julian Dougherty MD [facility] [employer] Phone: 03-09-2021 10:28-0400 SaO2% (BldA) [Mass fraction] 97 % Julian Dougherty MD [employer] Phone: 07-18-2020 09:15-0400 Pulse Oximetry 97 % [facility] [place] 07-18-2020 08:30-0400 BP Diastolic 96 mm[Hg] [facility] [place] 07-18-2020 08:30-0400 BP Systolic 135 mm[Hg] [facility] [place] 07-18-2020 08:18-0400 Body Temperature 98.01 [degF] [facility] 07-18-2020 08:18-0400 Pulse (Heart Rate) 84 /min [facility] 07-18-2020 08:18-0400 Respiratory Rate 16 /min [facility] 09-12-2019 02:36-0500 BP Diastolic 95 mm[Hg] [facility] , [place] 09-12-2019 02:36-0500 BP Systolic 138 mm[Hg] [facility] , [place] 09-12-2019 01:27-0500 Body Temperature 97.3 [degF] [facility] [place] 09-12-2019 01:27-0500 Pulse (Heart Rate) 86 /min [facility] 09-12-2019 01:27-0500 Pulse Oximetry 97 % [facility] , [place] 09-12-2019 01:27-0500 Respiratory Rate 18 /min Justice Dewitt [facility] O , [place] 06-14-2019 12:44-0400 BP Diastolic 89 mm[Hg] [facility] , [place] 06-14-2019 12:44-0400 BP Systolic 158 mm[Hg] Pablo Dewitt [facility] , [place] 06-14-2019 12:44-0400 Pulse (Heart Rate) 68 /min [facility], [place] 06-14-2019 12:44-0400 Pulse Oximetry 95 % Pablo Dewitt [facility] , [place] 06-14-2019 12:44-0400 Respiratory Rate 12 /min Pablo Dewitt [facility], [place] 06-14-2019 10:15-0400 BMI (Body Mass Index) 24.53 kg/m2 Pablo Dewitt [facility], [place] 06-14-2019 10:15-0400 Body Temperature 98.01 [degF] Pablo Dewitt [facility], [place] 06-14-2019 10:15-0400 Body weight 68.95 kg Pablo Dewitt [facility] , [place] Encounters Encounter Date Encounter Type Care Provider Facility Start: 07-26-2024 End: 07-26-2024 ambulatory Mo Gongora MD Facility:[facility]3]ue Start: 07-15-2024 Evaluation and manag ement of inpatient [facility] Start: 07-12-2024 End: 07-12-2024 ambulatory Mo Gongora MD Facility:[facility] [facility] Start: 06-24-2024 End: 06-24-2024 Office outpatient visit 25 minutes Casey Mohr MD Work Phone: [facility] Neurology Comment on above: 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); Hyperreflexia Start: 06-24-2024 ambulatory SELF SELF [facility] Start: 06-16-2024 End: 06-16-2024 ambulatory LISA MAYA [facility] Start: 05-31-2024 Evaluation and manag ement of inpatient SYDNEY Antonio [facility] Start: 05-29-2024 Evaluation and manag ement of inpatient [facility] Start: 05-29-2024 Evaluation and manag ement of inpatient [facility] Start: 05-28-2024 End: 05-31-2024 Evaluation and management of inpatient CASEY VIZCAINO [facility] Start: 05-28-2024 End: 05-28-2024 ambulatory [facility] Start: 03-15-2024 End: 03-15-2024 ambulatory Mo Gongora MD Facility:[facility] Start: 02-11-2024 End: 02-11-2024 ambulatory [facility] Start: 11-24-2023 End: 11-24-2023 [facility] Start: 2023 End: 2023 Emergency department patient visit [facility] Start: 2023 End: 2023 Emergency department patient visit Nadia Fitzpatrick MD Work Phone: [facility] ED Comment on above: Viral illness (Prima ry Dx) Start: 09-18-2023 End: 09-18-2023 [facility] Start: 09-18-2023 End: 09-18-2023 Subsequent hospital visit by physician Shaheen Chappell MD Work Phone: [facility] Comment on above: Sacroiliitis Start: 09-09-2023 [facility] Start: 09-09-2023 Encounter for other preprocedural examination [facility] Start: 08-27-2023 [facility] Start: 08-14-2023 End: 08-14-2023 Office outpatient new 45 minutes Casey Mohr MD Work Phone: [facility] Neurology Comment on above: 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); Hyperreflexia Start: 08-14-2023 ambulatory JENNIE HERNANDEZ [facility] Start: 08-13-2023 End: 08-13-2023 ambulatory [facility] Start: 08-13-2023 End: 08-13-2023 Encounter for other preprocedural examination [facility] Start: 07-16-2023 ambulatory JENNIE HERNANDEZ [facility] Start: 07-16-2023 End: 07-16-2023 Subsequent hospital visit by physician Jennie Hernandez MD Work Phone: [facility] Procedure Images Comment on above: Arrived Start: 07-16-2023 End: 07-16-2023 Patient encounter procedure Jennie Hernandez MD Work Phone: [facility] Orthopedics & Sports Medicine Comment on above: 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); Pain of both sacroiliac joints Start: 07-04-2023 ambulatory JENNIE HERNANDEZ [facility] Start: 07-04-2023 End: 07-04-2023 Office outpatient visit 15 minutes Jennie Hernandez MD Work Phone: [facility] Comment on above: 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); Pain of both sacroiliac joints; Polyneuropathy Start: 06-10-2023 [facility] JENNIE HERNANDEZ [facility] Start: 06-10-2023 End: 06-10-2023 Patient encounter procedure Jennie Hernandez MD Work Phone: [facility] Comment on above: Osteoarthritis of ri ght sacroiliac joint (Primary Dx); Pain of right sacroiliac joint; Polyneuropathy; Lower extremity numbness; Osteoarthritis of left sacroiliac joint; Pain of left sacroiliac joint; Lumbar spondylosis Start: 05-19-2023 ambulatory [facility] Start: 05-19-2023 End: 05-19-2023 Office outpatient visit 15 minutes Jennie Hernandez MD Work Phone: [facility] Comment on above: Osteoarthritis of le ft sacroiliac joint (Primary Dx); Pain of left sacroiliac joint; Lumbar spondylosis Start: 04-18-2023 ambulatory SELF SELF [facility] Start: 04-18-2023 End: 04-18-2023 Patient encounter procedure Jennie Hernandez MD Work Phone: [facility] Comment on above: Osteoarthritis of le ft sacroiliac joint (Primary Dx) Start: 04-18-2023 End: 04-18-2023 Subsequent hospital visit by physician Jennie Hernandez MD Work Phone: [facility] Procedure Images Comment on above: Arrived Start: 02-25-2023 ambulatory JENNIE HERNANDEZ [facility] Start: 02-25-2023 End: 02-25-2023 Office outpatient new 30 minutes Jennie Hernandez MD Work Phone: [facility] Comment on above: Osteoarthritis of le ft sacroiliac joint (Primary Dx); Lumbar spondylosis; Lower extremity numbness Start: 01-13-[address] ROMARIO MAN [facility] ity:[facility]1 Start: 01-08-2023 End: 01-09-[address] ROMARIO MAN Facility:[facility]1 Start: 12-30-2022 End: 12-31-2022 Evaluation and management of inpatient ROMARIO MAN [facility] Start: 12-30-2022 End: 12-31-2022 Evaluation and management of inpatient Rosa Garg DO Work Phone: [facility] SURG Comment on above: Chest [...] without abnormal findings DR ROMARIO MAN [facility] Start: 09-11-2022 End: 09-12-[address] ROMARIO MAN Facility:[facility] Start: 09-11-2022 End: 09-12-2022 Encounter for general adult medical examination without abnormal findings DR ROMARIO MAN Facility:[facility] Start: 08-22-2022 End: 08-22-[address] NELSON IBRAHIM . Facility:[facility] Start: 07-10-2022 End: 07-11-2022 ambulatory Julian DIAZ Facility:[facility] Start: 07-10-2022 End: 07-10-2022 Patient encounter procedure Julian DIAZ [facility] Start: 06-26-2022 End: 06-27-2022 ambulatory Julian DIAZ Facility:CD:[id number] Start: 06-24-2022 Encounter for preprocedural laboratory examination DR JULIAN DIAZ . [facility] Start: 06-22-2022 End: 06-23-[address] JULIAN DIAZ . Facility:[facility] Start: 06-22-2022 End: 06-23-2022 Encounter for preprocedural laboratory examination DR JULIAN DIAZ . Facility: Start: 05-31-2022 End: 06-01-2022 ambulatory ROMARIO MAN PROVIDER Facility:[facility] Start: 05-31-2022 End: 05-31-2022 Patient encounter procedure Julian DIAZ General Surgery [facility] Start: 05-30-2022 End: 05-31-[address] NELSON IBRAHIM . Facility:[facility] Start: 05-15-2022 ambulatory Julian DIAZ Facility :[facility] Start: 04-30-2022 End: 04-30-[address] NELSON IBRAHIM . Facility:[facility] Start: 04-23-2022 End: 04-23-[address] NELSON IBRAHIM . Facility:[facility] Start: 04-03-2022 End: 04-04-2022 ambulatory JULIANE MASSEY . Facility:[facility] Start: 03-25-2022 End: 03-25-2022 Subsequent hospital visit by physician Romario Man MD Work Phone: [facility] Laboratory Comment on above: Chronic fatigue Start: 03-12-2022 End: 03-13-[address] ROMARIO MAN Facility:[facility] Start: 03-12-2022 End: 03-12-[address] ROMARIO MAN Facility:[facility] Start: 02-21-2022 End: 02-22-[address] NELSON Acevedo Facility:[facility] Start: 02-05-2022 End: 02-05-[address] ROMARIO MAN Facility:[facility] Start: 03-09-2021 End: 03-09-2021 Emergency department patient visit Julian Dougherty MD [facility] ED Comment on above: Acute gout of right wrist, unspecified cause (Primary Dx) Start: 08-17-2020 End: 08-17-2020 Subsequent hospital visit by physician [facility] Cardiology Stress Room [facility] Stress Lab Comment on above: Arrived Start: 08-16-2020 End: 08-18-2020 Subsequent hospital visit by physician [facility] Vascular Imaging Room [facility] Vascular Lab Comment on above: Other specified lisette pheral vascular diseases (HCC) Start: 08-16-2020 End: 08-16-2020 Subsequent hospital visit by physician [facility] Cardiology Stress Room [facility] Stress Lab Comment on above: Arrived Start: 07-18-2020 End: 07-18-2020 Emergency department patient visit Sebastian Carmichael Work Phone: [facility] ED Comment on above: Abdominal pain, epig astric (Primary Dx) Start: 09-12-2019 End: 09-12-2019 Emergency department patient visit Justice Shaver Work Phone: [facility] ED Comment on above: Trapezius muscle spa sm (Primary Dx) Start: 06-14-2019 End: 06-14-2019 Emergency department patient visit Pablo Lindsey Work Phone: [facility] ED Comment on above: Chronic pain of both shoulders (Primary Dx); Neck pain, chronic; Nonspecific chest pain Start: 01-29-2018 End: 01-30-2018 Ambulatory DEFAULT PHYSICIAN Facility:[facility] Start: 01-20-2018 End: 01-21-2018 Ambulatory DEFAULT PHYSICIAN Facility:[facility] Start: 01-10-2018 End: 01-13-2018 Evaluation and management of inpatient SOREN MOHR [facility] Procedures Date Procedure Procedure Detail Performing Clinician [...] 12-31-2022 Assay of troponin quantitative Cece Villalobos [employer]YCLING TECHNICIAN Work Phone: Start: 12-31-2022 BASIC METABOLIC PANEL W/ REFLEX TO MG FOR LOW K Cece Villalobos [employer] RECYCLING TECHNICIAN Work Phone: Start: 12-31-2022 Lipid panel Cece Villalobos [employer] RECYCLING TECHNICIAN Work Phone: Start: 12-31-2022 End: 12-31-2022 Ecg routine ecg w/least 12 lds w/i&r Cece Villalobos [facility] Work Phone: Start: 12-30-2022 Echo tthrc r-t 2d w/wom-mode compl spec&colr d Cece Villalobos [facility] Work Phone: Start: 12-30-2022 RESPIRATORY PANEL, MOLECULAR, WITH COVID-19 Cece Villalobos [facility] Work Phone: Start: 12-30-2022 Rhythm ecg [...] on above: Performed By: #### HGBHCT #### [facility] [address] [place] [address] Dr. Raimundo Estrada Start: 06-26-2022 Colonoscopy Julian [...] SIGNS SHOWKAT AHMAD Start: 01-12-2018 DIAGNOSTIC CARDIAC EGG PACKER PROCEDURE SHOWKAT AHMAD Start: 01-12-2018 APTT SHOWKAT [...] DTaP/Tdap/Td vaccine (3 - Td or Tdap) [facility] Start: 12-31-2025 Diabetes screen Diabetes screen [facility] Start: 2025 Pneumococcal 0-64 years Vaccine (3 - PPSV23 if available, else PCV20) Pneumococcal 0-64 years Vaccine (3 - PPSV23 if available, else PCV20) [facility] Start: 2025 Pneumococcal 0-64 years Vaccine (3 - PPSV23 or PCV20) Pneumococcal 0-64 years Vaccine (3 - PPSV23 or PCV20) [facility] Start: 06-24-2024 End: 06-24-2025 MILENA AND PE, SERUM MILENA AND PE, SERUM Lab Routine Hereditary and idiopathic peripheral neuropathy Expected: 06/24/2024, Expires: 06/24/2025 [facility] Comment on above: Expected: 06/24/2024, Expires: 5 Start: 06-24-2024 End: 06-24-2025 MR Cervical spine WO contrast MRI SPINE CERVICAL WITHOUT CONTRAST Imaging Routine Hyperreflexia Expected: 06/24/2024, Expires: 06/24/2025 [facility] Comment on above: Expected: 06/24/2024, Expires: 5 Start: 06-24-2024 End: 06-24-2025 MR Thoracic spine WO contrast MRI SPINE THORACIC WITHOUT CONTRAST Imaging Routine Hyperreflexia Expected: 06/24/2024, Expires: 06/24/2025 [facility] Comment on above: Expected: 06/24/2024, Expires: 5 Start: 06-06-2024 COVID-19 VACCINE ( season) COVID-19 VACCINE ( season) [facility] Start: 06-06-2024 Influenza vaccination INFLUENZA VACCINE (#1) [facility] Start: 01-01-2024 Lipid panel Lipids [facility] Start: 09-18-2023 End: 09-18-2023 Arthrodesis sacroiliac joint percutaneous ARTHRODESIS SACROILIAC JOINT MINIMALLY INVASIVE W/ TRANSFIXING DEVICE Sacroiliitis 09/18/2023 10:52 AM EST [facility] Start: 09-18-2023 End: 09-18-2023 Fluoroscopy up to 1 hour physician/qhp time FLUOROSCOPY IN OR Sacroiliitis 09/18/2023 10:52 AM EST [facility] Start: 08-14-2023 End: 08-14-2023 Patient encounter procedure 08/14/2023 2:45 PM EST Office Visit [facility] Neurology [address] [place] [address] Casey Mohr MD [address] [place] [address] [facility] Neurology Start: 08-14-2023 End: 08-14-2024 B12/folate level B12 & FOLATE Lab Routine Hereditary and idiopathic peripheral neuropathy Expected: 08/14/2023, Expires: 08/14/2024 [facility] Comment on above: Expected: 08/14/2023, Expires: Start: 08-14-2023 End: 08-14-2024 Hemoglobin A1c/Hemoglobin.total in Blood HEMOGLOBIN A1C Lab Routine Hereditary and idiopathic peripheral neuropathy Expected: 08/14/2023, Expires: 08/14/2024 [facility] Comment on above: Expected: 08/14/2023, Expires: 4 Start: 08-14-2023 End: 08-14-2024 MILENA AND PE, SERUM MILENA AND PE, SERUM Lab Routine Hereditary and idiopathic peripheral neuropathy Expected: 08/14/2023, Expires: 08/14/2024 [facility] Comment on above: Expected: 08/14/2023, Expires: 4 Start: 08-14-2023 End: 08-14-2024 MR Cervical spine WO contrast MRI SPINE CERVICAL WITHOUT CONTRAST Imaging Routine Hyperreflexia Expected: 08/14/2023, Expires: 08/14/2024 [facility] Comment on above: Expected: 08/14/2023, Expires: 4 Start: 08-14-2023 End: 08-14-2024 MR Thoracic spine WO contrast MRI SPINE THORACIC WITHOUT CONTRAST Imaging Routine Hyperreflexia Expected: 08/14/2023, Expires: 08/14/2024 [facility] Comment on above: Expected: 08/14/2023, Expires: Start: 08-14-2023 End: 08-14-2024 VITAMIN B6 VITAMIN B6 Lab Routine Hereditary and idiopathic peripheral neuropathy Expected: 08/14/2023, Expires: 08/14/2024 [facility] Comment on above: Expected: 08/14/2023, Expires: Start: 07-04-2023 End: 07-04-2023 Patient encounter procedure 07/04/2023 9:00 AM EDT Office Visit [facility] [address] [address] Jennie Hernandez MD [address] [place] [address] [facility] Start: 06-10-2023 End: 06-10-2023 Patient encounter procedure 06/10/2023 10:00 AM EDT Office Visit [facility] [address] [address] Jennie Hernandez MD [address] [place] [address] [facility] Start: 06-06-2023 COVID-19 Vaccine ( season) COVID-19 Vaccine ( season) [facility] Start: 06-06-2023 Influenza vaccination [facility] Start: 05-19-2023 End: 05-19-2023 Patient encounter procedure 05/19/2023 9:00 AM EDT Office Visit [facility] [address] [place] [address] Jennie Hernandez MD [address] [place] [address] [facility] Start: 05-06-2023 Influenza vaccination Flu vaccine (#1) [facility] Start: 04-18-2023 End: 04-18-2023 Patient encounter procedure 04/18/2023 12:40 PM EDT Office Visit [facility] [address] [place] [address] Jennie Hernandez MD [address] [place] [address] [facility] Sports [facility] Start: 04-15-2023 End: 04-15-2023 Patient encounter procedure 04/15/2023 10:15 AM EDT Office Visit [facility] [address] [place] [address] Jw Capps MD [address] [place] [address] [facility] Start: 03-25-2023 Hemoglobin A1c measurement A1C test (Diabetic or Prediabetic) [facility] Start: 02-25-2023 End: 02-26-2024 Electromyography EMG & NERVE CONDUCTION Neurology Routine Lower extremity numbness Expected: 02/25/2023, Expires: 02/26/2024 [facility] Comment on above: Expected: 02/25/2023, Expires: Start: 01-11-2023 Lipid screen Lipid screen [facility] [place] Start: 04-11-2022 End: 04-11-2022 Patient encounter procedure 04/11/2022 Office Visit Neurology Con Cowan MD [address] [place] [address] [place] [address] [facility] NEUROLOGY [facility] Start: 06-06-2021 Influenza vaccination Flu vaccine (Season Ended) [facility] Work Phone: Start: 01-10-2021 Diabetes screen Diabetes screen [facility] Start: 2020 Respiratory Syncytial Virus (RSV) or age 60 yrs+ (1 - 1-dose 60+ series) Respiratory Syncytial Virus (RSV) or age 60 yrs+ (1 - 1-dose 60+ series) [facility] Start: 2020 RSV VACCINE (1 - 1-dose 60+ series) RSV VACCINE (1 - 1-dose 60+ series) [facility] Start: 08-17-2020 End: 08-17-2020 Appointment 08/17/2020 Appointment Stress Lab [facility] Start: 06-06-2020 Influenza vaccination Flu vaccine (#1) [place], [place] Start: 06-06-2019 Influenza vaccination Flu vaccine (#1) [place] Start: 01-11-2019 Lipid panel [facility] Start: 01-11-2019 Lipid screen Lipid screen [place], [place] Start: 08-13-2018 Prostate specific antigen measurement Prostate Specific Antigen (PSA) Screening or Monitoring [facility] Start: 2010 Colon cancer screen colonoscopy Colon cancer screen colonoscopy [place], [place] Start: 2010 Prostate specific antigen measurement PROSTATE CANCER SCREENING DISCUSSION [facility] Start: 2010 Screening for malignant neoplasm of colon Colon cancer screen colonoscopy [place], [place] Start: 2010 Shingles Vaccine (1 of 2) Shingles Vaccine (1 of 2) [place] Start: 2010 Zoster vaccine hzv live for subcutaneous use ZOSTER (SHINGLES) VACCINE (1 of 2) [facility] Start: 2005 Screening for malignant neoplasm of colon [facility] Start: 2000 Lipid panel LIPID SCREENING [facility] Start: 1979 DTaP/Tdap/Td vaccine (1 - Tdap) DTaP/Tdap/Td vaccine (1 - Tdap) [place] Start: 1979 Third diphtheria, tetanus and acellular pertussis (DTaP) vaccination TDAP (ADULT) [facility] Start: 1978 Hepatitis C screening Hepatitis C screen [facility] Start: 1975 HIV screen HIV screen [place], [place] Start: 1975 HIV screening [facility] Start: 1972 COVID-19 Vaccine (1) COVID-19 Vaccine (1) [facility] [employer] Phone: Start: 1972 Depression Screen Depression Screen [facility] Start: 1971 DTaP/Tdap/Td vaccine (1 - Tdap) DTaP/Tdap/Td vaccine (1 - Tdap) [place] Start: 1966 Pneumococcal 0-64 years Vaccine (1 of 1 - PPSV23) Pneumococcal 0-64 years Vaccine (1 of 1 - PPSV23) [place] Start: 1966 Pneumococcal 0-64 years Vaccine (1 of 2 - PPSV23) Pneumococcal 0-64 years Vaccine (1 of 2 - PPSV23) [facility] [employer] Phone: Start: 04-09-1961 COVID-19 VACCINE (#1) COVID-19 VACCINE (#1) [facility] Start: 1960 Hepatitis C screen Hepatitis C screen [place], [place] Start: 1960 Hepatitis C screening [facility] Start: 1960 Tetanus vaccination TETANUS [facility] End: 01-02-2023 Basic Metabolic Panel w/ Reflex to MG Basic Metabolic Panel w/ Reflex to MG Lab Routine Daily for 3 Days starting 12/31/2022 until 01/02/2023, [address] [facility] [employer] Phone: Comment on above: Daily for 3 Days starting 12/31/2022 unt il 01/02/2023, 1 completed End: 01-02-2023 CBC W Auto Differential panel - Blood CBC with Auto Differential Lab Routine Daily for 3 Days starting 12/31/2022 until 01/02/2023, [address] [facility] [employer] Phone: Comment on above: Daily for 3 Days starting 12/31/2022 unt il 01/02/2023, 1 completed EKG 12 Lead EKG 12 Lead ECG STAT 06/14/2019 10:26 AM EDT [employer] [place] EKG 12 lead EKG 12 lead ECG Routine As Needed until discontinued starting 12/30/2022 [employer] Phone: Comment on above: As Needed until discontinued starting End: 03-25-2022 Hemoglobin A1c/Hemoglobin.total in Blood [employer] Phone: Comment on above: 1 Occurrences starting 03/25/2022 until 03/25/2022 End: 12-31-2022 Hemoglobin A1c/Hemoglobin.total in Blood Hemoglobin A1C Lab Routine Tomorrow AM for 1 Occurrences starting 12/31/2022 until 12/31/2022 [employer] Phone: Comment on above: Tomorrow AM for 1 Occurrences starting 0 12/31/2022 until 12/31/2022 Hemoglobin A1c/Hemoglobin.total in Blood Hemoglobin A1C Lab Routine 12/31/2022 6:30 AM EDT [employer] Phone: Initiate ED RT Bronc hospasm Protocol Initiate ED RT Bronchospasm Protocol Respiratory Care Routine Daily until discontinued starting 2023 [employer] Comment on above: Daily until discontinued starting 2023 End: 12-30-2022 Intermittent pulse oximetry Pulse Oximetry Spot Check Respiratory Care Routine One Time for 1 Occurrences starting 12/30/2022 until 12/30/2022 [employer] Phone: Comment on above: One Time for 1 Occurrences starting 12/05 until 12/30/2022 End: 03-25-2022 Nuclear Ab [Titer] in Serum by Immunofluorescence [employer] Phone: Comment on above: 1 Occurrences starting 03/25/2022 until 03/25/2022 Oxygen therapy [[facility] Data Set] Initiate Oxygen Therapy Protocol Respiratory Care Routine As Needed until discontinued starting 12/30/2022 [employer] Phone: Comment on above: As Needed until discontinued starting End: 2023 Portable XR Chest AP single view [employer] Comment on above: Once for 1 Occurrences starting 10/10/19 until 2023 End: 09-18-2023 RF Unspecified body region Views during surgery [facility] Comment on above: One Time for 1 Occurrences starting 09/05 until 09/18/2023 Stress test, lexiscan Stress kendra t, lexiscan Cardiac Services Routine 12/31/2022 3:03 PM EDT [employer] Work Phone: Vibratory Airway Clearance Vibra [employer]ory Airway Clearance Respiratory Care Routine Every 1hr while awake until discontinued starting 12/30/2022 [employer] Phone: Comment on above: Every 1hr while awake until discontinued starting 12/30/2022 End: 03-25-2022 Vitamin B12 & Folate [employer] Phone: Comment on above: 1 Occurrences starting 03/25/2022 until 03/25/2022 XR CHEST PORTABLE XR CHEST HEDY BLE Imaging STAT 06/14/2019 10:43 AM EDT [employer] [place] Payers Date Payer Category Payer Unknown 2023 Unknown [id number] 2022 Unknown [id number] 2021 Unknown [id number] 2021 Unknown [id number] 2019 Private Health Insurance [facility] [id number] 2019-Present [phone] [address] [place] [address] [id number] 2019 Private Health Insurance [employer] xxxxxxxxxx 2019-Present [phone] [address] [place] [address] xxxxxxxxxx [id number] 2016 Unknown [id number] 2014 Unknown [phone] [id number] 1960 Unknown [id number] 2.16.840.1.248799.3.579.2 .727 1960 Unknown [id number] [id number] .727 1960 Unknown [id number] 2.16.840.1.060769.3.579.2 .727 1960 Unknown [id number] 2.16.840.1.869651.3.579.2 .727 1960 Unknown [id number] 2.16.840.1.835282.3.579.2 .593 1960 Unknown [id number] 2.16.840.1.474261.3.579.2 .593 1960 Unknown [id number] 2.16.840.1.589642.3.579.2 .593 1960 Unknown [id number] 2.16.840.1.819986.3.579.2 .593 1960 Unknown [id number] 2.16.840.1.625598.3.579.2 .593 1960 Unknown [id number] 2.16.840.1.813816.3.579.2 .593 1960 Unknown [id number] 2.16.840.1.124930.3.579.2 .593 1960 Unknown [id number] 2.16.840.1.487153.3.579.2 .593 1960 Unknown [id number] 2.16.840.1.047475.3.579.2 .593 1960 Unknown [id number] 2.16.840.1.559929.3.579.2 .593 1960 Unknown [id number] 2.16.840.1.658172.3.579.2 .593 1960 Unknown [id number] 2.16.840.1.504516.3.579.2 .593 1960 Unknown [id number] 2.16.840.1.390184.3.579.2 .593 1960 Unknown [id number] 2.16.840.1.304227.3.579.2 .593 1960 Unknown [id number] 2.16.840.1.503828.3.579.2 .593 1960 Unknown [id number] 2.16.840.1.749361.3.579.2 .593 1960 Unknown [id number] 2.16.840.1.471226.3.579.2 .593 1960 Unknown [id number] 2.16.840.1.114315.3.579.2 .593 1960 Unknown [id number] 2.16.840.1.764831.3.579.2 .593 1960 Unknown [id number] 2.16.840.1.587064.3.579.2 .593 1960 Unknown [id number] 2.16.840.1.787581.3.579.2 .983 1960 Unknown [id number] 2.16.840.1.793234.3.579.2 .983 1960 Unknown [id number] 2.16.840.1.982970.3.579.2 .983 1960 Unknown [id number] 2.16.840.1.958512.3.579.2 .983 1960 Unknown [id number] 2.16.840.1.359386.3.579.2 .983 1960 Unknown [id number] 2.16.840.1.615665.3.579.2 .983 1960 Unknown [id number] 2.16.840.1.975438.3.579.2 .983 1960 Unknown [id number] 2.16.840.1.222290.3.579.2 .983 1960 Unknown [id number] 2.16.840.1.001134.3.579.2 .983 1960 Unknown [id number] 2.16.840.1.357435.3.579.2 .983 1960 Unknown [id number] 2.16.840.1.501797.3.579.2 .173 1960 Unknown [id number] 2.16.840.1.936755.3.579.2 .173 1960 Unknown [id number] 2.16.840.1.881575.3.579.2 .1259 1960 Unknown [id number] 2.16.840.1.225190.3.579.2 .983 1960 Unknown [id number] 2.16.840.1.561122.3.579.2 .983 1960 Unknown [id number] 2.16.840.1.793097.3.579.2 .983 1960 Unknown [id number] 2.16.840.1.770049.3.579.2 .983 1960 Unknown [id number] 2.16.840.1.666742.3.579.2 .196 1960 Unknown [id number] 2.16.840.1.793516.3.579.2 .196 1960 Unknown [id number] 2.16.840.1.198781.3.579.2 .196 1959 Unknown [id number] 1.2.840.806157.1.13.239.2 .7.3.541327.315 1959 Unknown [id number] Social History Date Type Detail Facility Start: 06-14-2019 End: 02-25-2023 Tobacco smoking status NHIS Never smoker [facility] [employer] Start: 06-14-2019 End: 06-24-2024 Alcohol intake Yes [place] Start: 06-14-2019 Alcohol Comment not every day [place], [place] Start: 1960 Sex Assigned At Not on file M [place] Start: 09-12-2019 End: 06-24-2024 Alcohol intake Current drinker of alcohol (finding) [place] Start: 07-18-2020 End: 02-25-2023 Tobacco use and exposure Never used [place] Start: 03-15-2022 End: 12-30-2022 Exposure to SARS-CoV-2 (event) Not sure [place] Start: 03-09-2021 End: 06-24-2024 [facility] Tobacco smoking status Never [facility] [place] Start: 12-30-2022 History SDOH Alcohol Frequency 5 [facility] [employer] Work Phone: Start: 12-30-2022 History SDOH Alcohol Std Drinks 2 [facility] [employer] Work Phone: Start: 09-09-2023 Alcohol Comment 3-4 BEERS DAILY [facility] How often to you hav e a drink containing alcohol? 4 or more times a week [facility] How many standard dr inks containing alcohol do you have on a typical day? 3 or 4 [employer] [facility] How often do you hav e 6 or more drinks on 1 occasion? Daily or almost daily [facility] [employer] Medical Equipment Procedure Code Equipment Code Equipment [...] prepare for safety after surgery. (Met today) Hot Roll Inspector Goals: Independent core exercises for oil heaterman use to prevent reoccurrence. Return to normal activity of house work/leisure/ADLs with post op therapy as ordered by surgeon if needed. Functional Status Date Assessment Result Facility 05-31-2022 Functional Status N/A [facility] Krishnamurthy Clinical Notes 02-21-2022 to 06-24-2024 Casey Mohr MD - 06/24/2024 8:45 AM EDTDischarge InstructionsNursing Notes - Griselda Craig RN - 09/18/2023 2:38 PM ESTNursing Notes - Griselda Craig RN - 09/18/2023 2:38 PM ESTDischarge Instructions Note Date & Type Note Facility 06-24-2024 History of Present illness Narrative [facility] NOTE Chief Complaint Patient [...] medication through his pain management physician in [place]. He has a history of a lumbar [...] tablet by mouth daily every morning. aspirin, [id number], tablet Take 1 tablet by mouth daily. [...] lids. There is no papilledema on fundoscopy. 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 Last lab's reviewed from May 2024. [facility] 06-16-2024 Note -ranexa Dc'd- theref ore will increase imdur to 120 mg daily Pt to call for any concerns of chest pain/angina, lightheadedness or dizziness. [facility] 06-16-2024 Note Hypertension is well controlled. Continue taking metoprolol 25 mg and lisinopril 40 mg. [facility] 06-16-2024 Note Coronary artery dise ase is [...] [address] Marin to reassess [facility] 06-16-2024 Note [facility] CARDIOLOGY PROGR ESS NOTE HPI: Noel Alva is a 63 y.o. male here for hospital F/U HPI 63 yo male presents to clinic for hospital f/U after recent admit for Unstable angina, cardiac cath that did show moderate in-stent restenosis of LAD, otherwise mild-moderate multivessel disease. Pt is here from a follow up from being [facility]. Pt claims to have funny feeling in [...] symptoms. 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 Review of Systems Cardiovascular: Positive for claudication and near-syncope. Respiratory: Positive for shortness of breath. Musculoskeletal: Positive for arthritis, back pain, joint pain and myalgias. Genitourinary: Positive for frequency. Neurological: Positive for dizziness, light-headedness and numbness. All other systems reviewed and are negative. Hospital Medicine Discharge Summary Final Discharge Diagnosis: Unstable angina Admission Diagnosis: Unstable angina ([facility]) [I20.0] Hospital course: 63yoM with past medical history of CAD s/p PCI to LAD, hypertension, hyperlipidemia, GERD who was admitted from [facility] to [facility] on 05/28 for unstable angina. Cardiology service [...] pedis pulses are (more content not included)... [facility] 06-16-2024 Note Pt is here from a fo llow up from being [facility]. Pt claims to have funny feeling in [...] other systems reviewed and are negative. [facility] 05-31-2024 Note Hospital Medicine Discharge Summary Final Discharge Diagnosis: Unstable angina Admission Diagnosis: Unstable angina ([facility]) [I20.0] Hospital course: 63yoM with past medical history of CAD s/p PCI to LAD, hypertension, hyperlipidemia, GERD who was admitted from [facility] to [facility] on 05/28 for unstable angina. Cardiology service [...] Center 06/16/2024 10:40 AM Lisa Maya NP [facility] Your medication list START taking these medications [...] Medications These medications were sent to [facility] - [place], [place] - [address], [facility] [address] atorvastatin 80 mg tablet metoprolol succinate XL [...] and documentation was 30 minutes. Signed Sydney Soto MD [facility] Medicine 05/31/2024 5:10 PM CC: MD Magda [facility] 05-31-2024 Note Attestation signed by Destiney Curran [...] Value Ventricular Rate 94 Atrial Rate 94 MO Interval 132 QRS DURATION 72 QT Interval 410 QTC CALCULATION(BAZETT) 512 P Waldo 60 R-Waldo 50 T Wave Waldo 70 Impression Normal sinus rhythm Nonspecific ST [...] left radial artery was obtained. A 6 Pakistani glide sheath was inserted without difficulty. Bilateral [...] significant stenosis. Left (more content not included)... [facility] 05-31-2024 Note Cardiovascular Labor atory Report FINAL [...] left radial artery was obtained. A 6 Pakistani glide sheath was inserted without difficulty. Bilateral [...] a small caliber vessel INDICATIONS: Unstable angina [facility] 05-30-2024 Note Attestation signed by Kristian Palumbo [...] cardiac catheterization in a.m. Kristian Palumbo MD, [facility] Cardiology Progress Note Subjective Subjective: [...] Value Ventricular Rate 94 Atrial Rate 94 MO Interval 132 QRS DURATION 72 QT Interval 410 QTC CALCULATION(BAZETT) 512 P Waldo 60 R-Waldo 50 T Wave Waldo 70 Impression Normal sinus rhythm Prolonged QT [...] cath at [facility] 01/12/2018 due to chest pain that showed minimal disease and patent LAD stent. HTN HLD Plan: Continue aspirin, BB and statin Check modifiable risk factors including lipid panel and hemoglobin A1C Obtain TTE to assess cardiac function NPO after midnight for tentative heart catheterization tomorrow Maintain telemetry Optimize electrolytes Lucero Vann MD Neonatal Critical Care Nurse - PGY5 [facility] 05-30-2024 Note Hospital Medicine Daily Progress Note - 05/30/2024 8:09 AM; Room: [address] [place] [address] Admission: 05/28/2024 3:36 PM; Length of stay: 2 days THE HOSPITALIST TEAM PREFERS TO USE [employer] CHAT FOR COMMUNICATION 7AM-7PM. IF I DO NOT RESPOND WITHIN 15 MINUTES, PLEASE PAGE ME/CALL THROUGH THE ARCHAEOLOGY PROFESSOR. FROM 7PM-7AM, PLEASE PAGE [phone](COVR) Code Status: Full Code Barriers to Discharge: [...] (CMS/HCC) Active Problems: Coronary artery disease involving kanatak coronary artery of kan[place] heart with unstable angina pectoris (CMS/HCC) Dyslipidemia Primary hypertension GERD (gastroesophageal reflux disease) Assessment and Plan Unstable angina CAD of [place] arteries of [place] heart Hypertension Bradycardia Hyperlipidemia -Trop negative, EKG [...] from last 7 days Lab Units 05/28/24 2052 POCT GLUCOSE mg/dL 145* Historical Values: (Includes values prior to this admission) Lab Results Component Value Date TSH 2.12 05/29/2024 HDL 56 05/28/2024 LDL 86 05/28/2024 Lab Results Component Value Date [id number] 05/29/2024 Imaging US neck Narrative: US [...] Home or Self Care () Signed Sydney Soto MD Hospital Medicine 05/30/2024 8:09 AM [facility] 05-29-2024 Note 05/29/24938 Admission Assessment Questions Verify insurance with patient [...] Status Interested Does the patient have a manager case management assigned to them through their insurance? No [...] to send link and activate MyChart? No [facility] 05-29-2024 Note [facility] Medicine Daily Progress Note - 05/29/2024 9:15 AM; Room: [address] [place] [address] Admission: 05/28/2024 3:36 PM; Length of stay: 1 days THE HOSPITALIST TEAM PREFERS TO USE [employer] CHAT FOR COMMUNICATION 7AM-7PM. IF I DO NOT RESPOND WITHIN 15 MINUTES, PLEASE PAGE ME/CALL THROUGH THE ARCHAEOLOGY PROFESSOR. FROM 7PM-7AM, PLEASE PAGE [phone](COVR) Code Status: Full Code Barriers to Discharge: [...] (CMS/HCC) Active Problems: Coronary artery disease involving kanatak coronary artery of kan[place] heart with unstable angina pectoris (CMS/HCC) Dyslipidemia Primary hypertension GERD (gastroesophageal reflux disease) Assessment and Plan Unstable angina CAD of [place] arteries of [place] heart Hypertension Bradycardia Hyperlipidemia -Trop negative, EKG [...] LDL 86 05/28/2024 No results found for: [id number] , IRON , TIBC , C3 , [...] Home or Self Care () Signed Sydney Soto MD Hospital Medicine 05/29/2024 9:15 AM [facility] 05-28-2024 Note Hospital Medicine History and Physical 05/28/2024 6:22 PM THE HOSPITALIST TEAM PREFERS TO USE [employer] CHAT FOR COMMUNICATION 7AM-7PM. IF I DO NOT RESPOND WITHIN 15 MINUTES, PLEASE PAGE ME/CALL THROUGH THE ARCHAEOLOGY PROFESSOR. FROM 7PM-7AM, PLEASE PAGE [phone](COVR) Chief Complaint Direct admission from [facility] with unstable angina History of Present Illness Noel Alva is an 63 y.o. male who came from home with past medical history of CAD s/p PCI, hypertension, hyperlipidemia, GERD presents a direct admission from [facility] with a chief complaint of chest pain. Patient reports that he was at a follow-up appointment with his catalog librarian at the [facility] clinic. Reports that he was recently [...] was transferred as a direct admission from [facility] to [facility] for cardiac catheterization in the a.m. with [...] D deficiency 11/24/2023 Osteoarthritis of sacroiliac joint ([facility]) 09/08/2023 Dyslipidemia 01/02/2023 S/P angioplasty with stent 01/02/2023 Atypical chest pain 12/30/2022 Viral syndrome 12/30/2022 Intermittent claudication ([facility]) 04/02/2021 Paresthesia of upper limb 04/02/2021 Peripheral vascular disease ([facility]) 04/02/2021 Primary hypertension 04/02/2021 Acute gout of right wrist 03/09/2021 S/P cardiac cath 01/12/2018 Coronary artery disease involving kan[place] coronary artery of [place] heart with unstable angina pectoris ([facility]) 01/10/2018 Mild intermittent asthma without complication 01/10/2018 Unstable angina ([facility]) 01/10/2018 Assessment and Plan Noel Alva is an 63 y.o. male who came from home with past medical history of CAD s/p PCI, hypertension, hyperlipidemia, GERD presents a direct admission from [place] (more content not included)... [facility] 05-28-[address] Cardiology - [facility] Subjective Noel Alva is a 63 [...] cath at [facility] 01/12/2018 due to chest pain that showed [...] Rfl: 3 cholecalciferol (Vitamin D-3) 50 MCG (1999) tablet, Take 1 tablet b (more content not included)... [facility] 02-11-[address] Cardiology - [facility] Subjective Noel Alva is a 63 [...] cath at [facility] 01/12/2018 due to chest pain that showed [...] Rfl: 3 cholecalciferol (Vitamin D-3) 50 MCG (1999) tablet, [...] or concern. documented in this encounter [facility] 09-18-2023 Note #Cardiac risk strati fication -Stress [...] surgery staff and driven home by family. [facility] 09-18-2023 Miscellaneous Notes Pt provided with discharge [...] this time POST OPERATIVE/PROCEDURE NOTE Noel Alva ([id number]) SURGEON Surgeon(s) and Role: * Shaheen Chappell MD - Primary INDUSTRIAL ENGINEERING MANAGER [place]ques ANESTHESIOLOGIST COMPUTER SYSTEMS SUPPORT SPECIALIST: Avinash Adams APRN-COMPUTER SYSTEMS SUPPORT SPECIALIST Student Nurse Job Estimator: Amanda Murphy SURGICAL STAFF Swahili Teacher: Caryn Tineo RN Registered Nurse Hardware Supplies Sales Representative: Angeline Mohan RN Scrub Person: Luiza Calderon [...] 2023 12:13 PM documented in this encounter [facility] 09-18-2023 Nurse Note OT in with pt at this time [facility] 09-18-2023 History of Present illness [...] and can help during recovery) Primary Language Sudanese PRIOR LEVEL AM-PAC Activity Inpatient Short Form [...] LUE Assessment WFL Supine to Sit Mobility [place] Level: Supine->Sit contact guard assist Bed Features/Set-up: Supine->Sit Flat Skilled Rationale Verbal cues Skilled Intervention/Details: Supine->Sit pt reorted that he knew how to log roll but twisted to get up even with vcs and attempts to physically assist with proper technique Sit to Stand Transfer [place] Level: Sit->Stand contact guard assist Assistive Device: Sit->Stand 2 wheeled walker Skilled Rationale Hand placement;Verbal cues Skilled Intervention/Details: Sit->Stand pt pulling up on the walker with both hands- cues to push off Stand to Sit Transfer [place] Level: Stand->Sit stand-by assist Assistive Device: Stand->Sit [...] Dressing Intervention/Details assist with R sock Acute [facility] Acute [facility] Assessments Daily Activity Inpatient Short Form [...] bed mobility & transfers with supervision to ID. He was provided education review with log [...] Completed? yes Therapist Information License # [id number] General Information Pertinent History of Current Problem The patient is a 62 year old male with sacroiliitis who underwent Right SI fixation. He was referred to physical therapy for post procedure education review & mobility. Jc Farmer, PT documented in this encounter [facility] 09-18-2023 Nurse Note Pt ambulating in [place] with PT without difficulty. [facility] 09-18-2023 Nurse Note PT in with pt at this time [facility] 09-18-2023 Nurse Note Discharge instructions provided, pt states understanding, including the sedentary activity as described, denies questions. [facility] 09-18-2023 Hospital Discharge instructions Venecia Rivera [...] take percocet prescribed by . Proceed with [place] as prescribed by Dr. Chappell-when [place] is completed, you may resume percocet from [...] should be faxed. documented in this encounter [facility] 09-18-[address] Chappell in to see pt at this time [facility] 09-18-2023 Surgery Postoperative evaluation and management note POST OPERATIVE/PROCEDURE NOTE Noel Alva ([id number]) SURGEON Surgeon(s) and Role: * Shaheen Chappell MD - Primary INDUSTRIAL ENGINEERING MANAGER Marques ANESTHESIOLOGIST COMPUTER SYSTEMS SUPPORT SPECIALIST: Avinash Adams APRN-COMPUTER SYSTEMS SUPPORT SPECIALIST Student Nurse Job Estimator: Amanda Murphy SURGICAL STAFF Swahili Teacher: Caryn Tineo RN Registered Nurse Hardware Supplies Sales Representative: Angeline Mohan RN Scrub Person: Luiza Calderon [...] Chappell MD September 18, 2023 12:13 PM [facility] 08-14-2023 History of Present illness Narrative [facility] NOTE Chief Complaint Patient [...] managed by [facility] in [place]. He is receiving Percocet and Lyrica. Lyrica [...] lids. There is no papilledema on fundoscopy. 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 Noel was seen today for new patient. Diagnoses and all orders for this visit: Hereditary and idiopathic peripheral neuropathy - HEMOGLOBIN A1C; Future - B12 & FOLATE; Future - VITAMIN B6; Future - MILENA AND PE, SERUM; Future Hyperreflexia - MRI SPINE CERVICAL WITHOUT CONTRAST; Future - MRI SPINE THORACIC WITHOUT CONTRAST; Future Casey Mohr MD 08/14/2023 documented in this encounter [facility] 08-13-2023 Note Patient here for [...] his right hip with Dr. Chappell in [place]. Had labs in December 2022. Review of Systems Cardiovascular: Positive for chest pain, claudication and dyspnea on exertion. Musculoskeletal: Positive for arthritis, back pain, joint pain and myalgias. Neurological: Positive for numbness. All other systems reviewed and are negative. [facility] 08-13-2023 Note Cardiovascular Medic [facility] SUBJECTIVE Chief Complaint Patient presents [...] his right hip with Dr. Chappell in [place]. Had labs in December 2022. history of CAD s/p stenting of the LAD in 2004, echocardiogram in 2010 was within normal limits. He underwent cath at [facility] 01/12/2018 due to chest pain that showed [...] ASHD (arteriosclerotic heart disease) Dyslipidemia Intermittent claudication ([facility]/HCC) Mild intermittent asthma without complication Paresthesia of upper limb Peripheral vascular disease ([facility]) Primary hypertension S/P angioplasty with stent S/P cardiac cath Unstable angina ([facility]) Viral syndrome Past Medical History: Diagnosis Date Coronary artery disease Hypertension PVD (peripheral vascular disease) ([facility]) Family History Problem Relation Name [...] and Affect (more content not included)... [facility] 07-16-2023 History of Present illness Narrative [...] therapy, medications, SI belt, therapeutic injections. Inadequate oil heaterman relief from therapeutic injection. 100% relief while [...] therapy, medications, SI belt, therapeutic injections. Inadequate oil heaterman relief from therapeutic injection. 100% relief while [...] findings. Additions if any: Jennie Hernandez MD, [facility] Office Machinery Or Equipment Installer - [facility] documented in this encounter [facility] 07-16-2023 Instructions Eric Luu - [...] associated with corticosteroids. documented in this encounter [facility] 07-04-2023 History of Present illness [...] Topical creams Physical therapy? Done recently at [facility] Xrays? Lumbar spine 12/2022 done at [place], bilateral hips and pelvis 01/08/23 MRI? 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 Done recently at [facility] Xrays? Lumbar spine 12/2022 done at [place], bilateral hips and pelvis 01/08/23 MRI? 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 Additions if any: Jennie Hernandez MD, [facility] Office Machinery Or Equipment Installer - [email or web address] 06-10-2023 History of Present illness Narrative [...] findings. Additions if any: Jennie Hernandez MD, [facility] Office Machinery Or Equipment Installer - [facility] documented in this encounter [facility] 05-19-2023 History of Present illness [...] Topical creams Physical therapy? Done recently at [facility] Xrays? Lumbar spine 12/2022 done at [place], bilateral hips and pelvis 01/08/23 MRI? 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 Done recently at [facility] Xrays? Lumbar spine 12/2022 done at [place], bilateral hips and pelvis 01/08/23 MRI? 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 Additions if any: Jennie Hernandez MD, [facility] Office Machinery Or Equipment Installer - [facility] documented in this encounter [facility] 04-18-2023 History of Present illness [...] Additions if any: Jennie Hernandez MD, [facility] Sports Medicine Office Machinery Or Equipment Installer - [facility] documented in this encounter [facility] 04-18-2023 Instructions Eric Luu - 04/18/2023 [...] associated with corticosteroids. 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 Noel may call the office with any questions or concerns. 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 Noel may call the office with any questions or concerns. Referrals:None Medications prescribed today: None Follow up plan: Sports US guided left sacroiliac joint injection with RFID TECHNICIAN Complexity of problem(s): Mild Risk of morbidity [...] findings. Additions if any: Jennie Hernandez [facility], [facility] Office Machinery Or Equipment Installer - [facility] documented in this encounter [facility] 12-31-2022 History of Present illness Narrative Inside Upholsterer reviewed discharge instructions with patient. No new [...] home following this hospitalization. Patient resides in [place] alone. He uses no DME and has no outside resources or services currently in place. 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 He is independent with all activities of [...] Priscilla, as his decision maker if needed. CHANNEL LIP STIFFENER INSOLES to monitor and assist with any further [...] Intake/Output Summary (Last 24 hours) at 12/31/2022 09 Last data filed at 12/31/2022 0235 Gross [...] 103* Comprehensive Metabolic Profile: Recent Labs 12/30/22 0612/31/22 0630 NA 139 140 K 3.9 4.3 [...] Well developed, well nourished with no malnutrition Optometrist Owner consult initiated Hospital Prophylaxis: DVT: Lovenox Stress Ulcer: H2 Sarah Disposition: Shared decision making: All test results, treatment options and disposition options were discussed with the patient today Social determinants of health that may impact management: none Code status: Full Code Disposition: Discharge plan is home [facility] Advanced Care Planning documentation: [x] I [...] the patient's medical record. [DOES NOT SATISFY [facility] PERFORMANCE] Cece Villalobos APRN - S[place] , AUTUMN, INDUSTRIAL MACHINE ASSEMBLER-C Hospitalist Medicine 12/31/2022, 9:21 AM Associated attestation - Kendell Alvarado MD - 12/31/2022 5:52 PM EDT Images from the original note were not included. [address], [place], [place], [address] Attestation Patient: Noel Alva Date of Admission: 12/30/2022 6:09 AM Hospital Day # 1 Date of Evaluation: 12/31/2022 I personally evaluated and examined the patient [id number] in conjunction with the PA/INDUSTRIAL MACHINE ASSEMBLER and agree with the management and dispostition of the patient. Please see the PA/INDUSTRIAL MACHINE ASSEMBLER's note for full details. My argueta findings [...] with the plan as outlined in the INDUSTRIAL MACHINE ASSEMBLER/PA's note Disposition: Discharge plan is pending Please note that this chart was generated using voice recognition [employer] dictation software. Although every effort was made to ensure the accuracy of this automated cloth colorer, some errors in cloth colorer may have occurred. Kendell Alvarado MD 12/31/2022 5:52 PM Inside Upholsterer to bedside to complete morning assessment. Upon entry to room, pt sitting up in bed, respirations even and unlabored while on room air. Vitals obtained and assessment completed, see flow sheet for details. Dr Alvarado at bedside, reviewed pts blood pressure medications with him, okay to hold Norvasc and Metoprolol this morning. Pt denies needs from science writer at this time. Call light in reach. Care ongoing. Noted science writer had not urinated yet this shift. [...] bedside table are within reach, will monitor. Inside Upholsterer offered meds to bed but patient declined. Echocardiogram/Doppler done at bedside. Instructed on policies and procedure. Spoke to Cece ELI, cristian for science writer to correct home medications. Okay to add: protonix, iron, Mobic, Lisinopril, and Amlodipine. Cardiology consult called to office. When reviewing home medications it was noted that there were some differences in doses of medications. Called [facility] and clarified medications. Will update [...] reach. Care ongoing. documented in this encounter [facility] [employer] Phone: 12-31-2022 Hospital Discharge instructions Ana Gutierres [...] low fat documented in this encounter [facility] [employer] Phone: 12-31-2022 Hospital course Narrative Discharge Summary [...] sharp in the left chest. No radiation. [place] burning sensation when the chest pain subsided. [...] discharge home he will follow-up with his catalog librarian in [place]. Consultants: Dr. Mohr, cardiology Procedures: Stress Test [...] (Neck pain) Vitamin D3 50 MCG (1999 CT) Tabs STOP taking these medications dicyclomine 10 MG capsule Commonly known as: Bentyl Where to Get Your Medications These medications were sent to [facility] [address] [place] [address] [address] [facility] 18 - P [phone] - F [phone] [place] [id number] atorvastatin 20 MG tablet Patient Instructions: Activity: activity as tolerated Diet: cardiac diet Wound Care: none needed Other: None Disposition: Discharge to Home Follow up: Patient will be followed by Romario Man MD in 1-2 weeks CORE MEASURES on Discharge (if applicable) BRITTNY/ARB in CHF: NA Statin in ID: NA ASA in ID: NA Statin in CVA: NA Antiplatelet in CVA: NA Total time spent on discharge services: 40 minutes Including the following activities: Evaluation and Management of patient Discussion with patient and/or surrogate about current care plan Coordination with Case Management and/or Animal Husbandry Technician Coordination of care with Consultants (if applicable) Coordination of care with Receiving Facility Physician (if applicable) Completion of DME forms (if applicable) Preparation of Discharge Summary Preparation of Medication Reconciliation Preparation of Discharge Prescriptions Signed: Cece Villalobos APRN - S[place]AR, AUTUMN INDUSTRIAL MACHINE ASSEMBLER-C 12/31/2022, 5:06 PM Associated attestation - Kendell Alvarado MD - 12/31/2022 5:53 PM EDT Images from the original note were not included. [address], [place], [place], [address] Attestation Patient: Noel Alva Date of Admission: 12/30/2022 6:09 AM Hospital Day # 1 Date of Evaluation: 12/31/2022 I personally evaluated and examined the patient [id number] in conjunction with the PA/INDUSTRIAL MACHINE ASSEMBLER and agree with the management and dispostition of the patient. Please see the PA/INDUSTRIAL MACHINE ASSEMBLER's note for full details. My argueta findings [...] care plan Coordination with Case Management and/or Animal Husbandry Technician Coordination of care with Consultants (if applicable) [...] this chart was generated using voice recognition [employer] dictation software. Although every effort was made to ensure the accuracy of this automated cloth colorer, some errors in cloth colorer may have occurred. Kendell Alvarado MD 12/31/2022 5:53 PM documented in this encounter [facility] [employer] Work Phone: 11-14-2022 Note CONSULTATION CONSULTATION DATE: [...] falls or foot drop. 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 He did have to take two days off of work last week, which his very unlike him. He had trouble getting out of bed due to increased pain. He is prescribed Burlington 5/325 t.i.d., but due to pain, patient [...] radiculopathy, lumbar spondylosis. PLAN: Patient brought his Burlington in today for a pill count. We will change his medication to Percocet 5/325 t.i.d. and increase his Lyrica to 100 mg b.i.d. I did recommend a Neurosurgery referral, which the patient does agree to. We will send a referral to Dr. Shaheen Chappell at [facility] in [place]. We will continue to manage his medications at this time, and we will see him in the clinic in three months. Patient agrees with this plan. [facility] 10-16-2022 Note CONSULTATION CONSULTATION DATE: 10/16/2022 [...] use a cane. His current medications include Burlington 5/325 b.i.d. and Aleve p.r.n. He has [...] next three days, we will increase his Burlington 5/325 to t.i.d. We will start also [...] Patient does agree with this plan. [facility] 08-22-2022 Note CONSULTATION CONSULTATION DATE: 08/22/2022 [...] weakness. Medications include Mobic 15 mg daily, Burlington 5/325 b.i.d. and tizanidine 4 mg q.h.s. [...] a menthol rub. We will maintain his Burlington 5/325 b.i.d. and he was instructed to use Voltaren to hi right CMC joint. Patient agrees with the plan of care and will be followed up in the office thereafter. [facility] 06-26-2022 Note OPERATIVE NOTE OPERATION DATE: [...] good condition. CC: Romario Man M.D. [facility] 06-01-2022 Note Chief Complaint consultation for [...] BID, # 90 tab(s), Refills(s) 3, [facility], 167.6, cm, 05/31/22 14:31:00 EDT, Height/Length Dosing, 72.8, kg, 05/31/22 14:31:00 EDT, Weight Dosing 3. Hematemesis (K92.0: Hematemesis) see # 1 Ordered: pantoprazole, 40 mg = 1 tab(s), Oral, BID, # 90 tab(s), Refills(s) 3, [facility], 167.6, cm, 05/31/22 14:31:00 EDT, Height/Length Dosing, 72.8, kg, 05/31/22 14:31:00 EDT, Weight Dosing Follow-up No qualifying data available Problem List/Past Medical History Ongoing Asthma BMI 25.0-25.9,adult CAD in [place] artery DDD (degenerative disc disease), lumbar Depression [...] 325 mg or (more content not included)... [facility] Comment on above: Result Comment: Elec tronically [...] procedure well with no overt complications. [facility] 05-30-2022 Note CONSULTATION CONSULTATION DATE: 05/30/2022 [...] Medications include Mobic 15 mg daily and Burlington 5/325 b.i.d. He does take tizanidine 4 [...] indicated. Patient agrees with this plan. [facility] 04-03-2022 Note CONSULTATION CONSULTATION DATE: 04/03/2022 [...] and his workup at the ER in [place] warranted no findings. Today, he reports consistent [...] mg q.h.s., Mobic 15 mg daily and Burlington 5/325 b.i.d. p.r.n. Activities such as standing, [...] clinic and heading straight to the lab. [facility] Signed and Approved by: JULIANE MASSEY . 04/04/2022 13:38:00 [facility] 02-21-2022 Note CONSULTATION CONSULTATION DATE: 02/21/2022 This [...] Medications include Mobic 15 mg q. day, Burlington 5/325 b.i.d. and tizanidine 4 mg q.h.s., [...] cervical neuritis. PLAN: We will refill his Burlington today 5/325 b.i.d., p.r.n. We will move [...] followed up in the office post procedure. [facility] Signed and Approved by: JULIANE MASSEY . 02/25/2022 15:08:00 [facility] Evaluation + Plan note No data available for this section General Surgery [place] Evaluation note Diagnosis Acute gout of right wrist, unspecified cause- Primary documented in this encounter [employer] Phone: evaluation note* Diagnosis Chronic fatigue Other malaise and fatigue documented in this encounter [facility] [employer] Phone: evaluation note* Diagnosis Atypical chest pain- Primary Other chest pain Chest pain, unspecified type Viral syndrome Unspecified viral infection, in conditions classified elsewhere and of unspecified site documented in this encounter [facility] [employer] Phone: evaluation note* Diagnosis Osteoarthritis of left sacroiliac joint- Primary Lumbar spondylosis Lumbosacral spondylosis without myelopathy Lower extremity numbness Disturbance of skin sensation [facility] Diagnosis Osteoarthritis of left sacroiliac joint [facility]* Diagnosis Osteoarthritis of left sacroiliac joint- Primary Osteoarthritis of left sacroiliac joint documented in this encounter [facility]* Diagnosis Osteoarthritis of left sacroiliac joint- Primary Pain of left sacroiliac joint Disorders of sacrum Lumbar spondylosis Lumbosacral spondylosis without myelopathy documented in this encounter [facility]* Diagnosis Osteoarthritis of right sacroiliac joint- Primary Pain of right sacroiliac joint Disorders of sacrum Polyneuropathy Unspecified hereditary and idiopathic peripheral neuropathy Lower extremity numbness Disturbance of skin sensation Osteoarthritis of left sacroiliac joint Pain of left sacroiliac joint Disorders of sacrum Lumbar spondylosis Lumbosacral spondylosis without myelopathy documented in this encounter [facility]* Diagnosis Osteoarthritis of both sacroiliac joints- Primary Pain of both sacroiliac joints Disorders of sacrum Polyneuropathy Unspecified hereditary and idiopathic peripheral neuropathy documented [facility]* Diagnosis Osteoarthritis of both sacroiliac joints Pain of both sacroiliac joints Disorders of sacrum documented in this encounter [facility]* Diagnosis Osteoarthritis of both sacroiliac joints- Primary Pain of both sacroiliac joints Disorders of sacrum Osteoarthritis of both sacroiliac joints Pain of both sacroiliac joints Disorders of sacrum [facility] Diagnosis Hereditary and idiopathic peripheral neuropathy- Primary Unspecified hereditary and idiopathic peripheral neuropathy Hyperreflexia Abnormal reflex documented in this encounter [facility] note* Diagnosis Sacroiliitis- Primary Sacroiliitis, not elsewhere classified documented in this encounter [facility] note* Diagnosis Viral illness- Primary Unspecified viral infection, in conditions classified elsewhere and of unspecified site documented in this encounter [facility] note* Diagnosis Hereditary and idiopathic peripheral neuropathy- Primary Unspecified hereditary and idiopathic peripheral neuropathy Hyperreflexia Abnormal reflex [facility]* Attachments The following attachments cannot be sent through Care Everywhere. * Gout (Sudanese) [facility] Work Phone: Hospital Discharge instructions No data available for this section General Surgery [employer] note No data available for this section General Surgery [place] Reason for referral (narrative)* Consultation (Routine) - Auth Not Needed Specialty Diagnoses / Procedures Referred By Anni antonio Referred To Contact Neurology Diagnoses Polyneuropathy Jennie Hernandez MD [address] [place] [phone] Casey Mohr MD [address] [place] [address] Referral ID Status Reason Start Date Expiration Date V isits Requested Visits Authorized [id number] Auth Not Needed 06/10/2023 07/04/2024 1 1 * Radiology (Routine) - New Request Specialty Diagnoses / Procedures Referred By Anni antonio Referred To Contact Diagnoses Osteoarthritis of left sacroiliac joint Pain of left sacroiliac joint Procedures US IMAGING FOR ORTHO Jennie Hernandez MD [address] [place] [address] Referral ID Status Reason Start Date Expiration Date V isits Requested Visits Authorized [id number] New Request 06/10/2023 07/04/2024 1 1 [facility] for referral (narrative)* Consultation (Routine) - Schedule Outgoing - Transfer of Care Specialty Diagnoses / Procedures Referred By Contac t Referred To Contact Neurologic Surgery Diagnoses Osteoarthritis of both sacroiliac joints Pain of both sacroiliac joints Jennie Hernandez MD [address] [place] [address] [place] [address] Referral ID Status Reason Start Date Expiration Date V isits Requested Visits Authorized [id number] Schedule Outgoing - Transfer of Care 07/16/2023 08/09/2024 1 1 * Radiology (Routine) - New Request Specialty Diagnoses / Procedures Referred By Contac t Referred To Contact Diagnoses Osteoarthritis of both sacroiliac joints Pain of both sacroiliac joints Procedures US IMAGING FOR ORTHO Jennie Hernandez MD [address] [place] [phone] Referral ID Status Reason Start Date Expiration Date V isits Requested Visits Authorized [id number] New Request 07/16/2023 08/09/2024 1 1 [facility] for referral (narrative)* (Routine) Specialty Diagnoses / Procedures Referred By Contac t Referred To Contact [facility] [place] [facility] [address] [place] [address] Referral ID Status Reason Start Date Expiration Date Visits Re quested Visits Authorized [facility] Summary Purpose Family History No Family History Records FoundNo Family History Records FoundNo Family History Records FoundNo Family History Records FoundNo Family History Records FoundNo Family History Records FoundNo Family History Records FoundNo Family History Records FoundNo Family History Records FoundNo Family History Records FoundNo Family History Records Found Advance Directives No Advanced Directives Records FoundDocuments on File Type Date Recorded Patient Customer Service Agent Expl anation Advance Directives and Living Will Power of Interpreter Latest Code Status on File Code Status Date Activated Date Inactivated Comments Full Code 01/12/2018 8:34 PM 01/13/2018 3:53 PM Full Code 01/10/2018 3:36 PM 01/12/2018 8:34 PM Documents on File Type Date Recorded Patient Customer Service Agent Expl anation ACP-Advance Directive ACP-Power of Interpreter Documents on File Type Date Recorded Patient Customer Service Agent Expl anation ACP-Advance Directive ACP-Power of Interpreter Latest Code Status on File Code Status [...] sent through Care Everywhere. * Chest Pain (Sudanese) * Back Pain (Sudanese) * Shoulder Pain (Sudanese) documented in this encounter* Instructions* Justice Shaver [...] sent through Care Everywhere. * Neck Spasm (Sudanese) documented in this encounter* Attachments The following attachments cannot be sent through Care Everywhere. * Abdominal Pain (Sudanese) * Acid-Reducing Medicines: General Info (Sudanese) documented in this encounter Assessments Diagnosis Chronic [...] (HCC) Procedures VL DUP CAROTID BILATERAL Lisa Maya, CIRCULAR DISTRIBUTOR - WASTE MANAGEMENT RECYCLING TECHNICIAN [address] [place] [address] Specialty Diagnoses / Procedures Referred By Contac t Referred To Contact Diagnoses Lower extremity numbness Procedures EMG & NERVE CONDUCTION Jennie Hernandez MD [address] [place] [phone] Jw Capps MD [address] [place] [phone] Referral ID Status Reason Start Date Expiration Date V isits Requested Visits Authorized [id number] Pending Review 02/25/2023 03/21/2024 1 1 Specialty Diagnoses / Procedures Referred By Contac t Referred To Contact Diagnoses Osteoarthritis of left sacroiliac joint Procedures US IMAGING FOR Jennie Cui MD [address] [place] [address] Referral ID Status Reason Start Date Expiration Date V isits Requested Visits Authorized [id number] New Request 04/18/2023 05/12/2024 1 1 Specialty Diagnoses / Procedures Referred By Contac t Referred To Contact Diagnoses Osteoarthritis of both sacroiliac joints Pain of both sacroiliac joints Procedures US IMAGING FOR Jennie Cui MD [address] [place] [address] Referral ID Status Reason Start Date Expiration Date V isits Requested Visits Authorized [id number] New Request 07/16/2023 08/09/2024 1 1 Specialty Diagnoses / Procedures Referred By Contac t Referred To Contact Diagnoses Hyperreflexia Procedures MRI SPINE THORACIC WITHOUT CONTRAST MO MRI, DORSAL SPINE Casey Mohr MD [address] [place] [address] Referral ID Status Reason Start Date Expiration Date V isits Requested Visits Authorized [id number] New Request 08/14/2023 09/07/2024 1 1 Specialty Diagnoses / Procedures Referred By Contac t Referred To Contact Diagnoses Hyperreflexia Procedures MRI SPINE CERVICAL WITHOUT CONTRAST MO MRI, CERV SPINE Casey Mohr MD [address] [place] [address] Referral ID Status Reason Start Date Expiration Date V isits Requested Visits Authorized [id number] New Request 08/14/2023 09/07/2024 1 1 Specialty Diagnoses / Procedures Referred By Contac t Referred To Contact Diagnoses Hyperreflexia Procedures MRI SPINE THORACIC WITHOUT CONTRAST CHG MRI SPINAL CANAL THORACIC W/O CONTRAST Casey Truong MD [address] [place] [address] Referral ID Status Reason Start Date Expiration Date V isits Requested Visits Authorized [id number] New Request 06/24/2024 07/19/2025 1 1 Specialty Diagnoses / Procedures Referred By Contac t Referred To Contact Diagnoses Hyperreflexia Procedures MRI SPINE CERVICAL WITHOUT CONTRAST CHG MRI SPINAL CANAL CERVICAL W/O CONTRAST Casey Truong MD [address] [place] [address] Referral ID Status Reason Start Date Expiration Date V isits Requested Visits Authorized [id number] New Request 06/24/2024 07/19/2025 1 1 Additional Source Comments (unrecognized sect ion and content) No Status Records FoundNo Status Records FoundNo Status Records FoundNo Status Records FoundNo Status Records FoundNo Status Records FoundNo Status Records FoundNo Status Records FoundNo Status Records FoundNo Status Records FoundNo Status Records Found INFORMATION SOURCE (unrecogn ized section and content) DATE CREATED AUTHOR 03/26/2018 [facility] DATE CREATED AUTHOR AUTHOR'S ORGANIZ ATION 03/26/2018 [facility] DATE CREATED AUTHOR AUTHOR'S ORGANIZ ATION 07/11/2022 [facility] DATE CREATED AUTHOR AUTHOR'S ORGANIZ ATION 01/18/2023 [facility] DATE CREATED AUTHOR AUTHOR'S ORGANIZ ATION 09/22/2023 [facility] DATE CREATED AUTHOR AUTHOR'S ORGANIZ ATION 10/11/2023 [facility] DATE CREATED AUTHOR AUTHOR'S ORGANIZ ATION 11/25/2023 [facility] EPIC DATE CREATED AUTHOR AUTHOR'S ORGANIZ ATION 06/18/2024 [facility] DATE CREATED AUTHOR AUTHOR'S ORGANIZ ATION 06/26/2024 [facility] DATE CREATED AUTHOR AUTHOR'S ORGANIZ ATION 07/23/2024 [facility] DATE CREATED AUTHOR AUTHOR'S ORGANIZ ATION 08/04/2024 [facility] Reason for Visit (unrecogniz ed section and content) Reason Comments Shoulder Pain ongoing for past wee k worse today Neck Pain worse today Chest Pain ongoing for one week worse today Reason Comments Neck Pain burning/shooting kalen n, BL posterior neck. REcent nerve procedure with pain management. Out of Burlington for 2 days. Reason Comments Flank Pain pt staes bilateral f alnk pain, onset Friday Status Reason Specialty Diagnoses / Procedures Referred By Contact Referred To Contact Authorized Stress Lab Diagnoses Atherosclerotic heart disease of [place] coronary artery without angina pectoris Procedures HC NM LEXISCAN STRESS W NUC HC NM SEST. REST STRESS MULT [id number] NM STRESS Lisa Maya, CIRCULAR DISTRIBUTOR - WASTE MANAGEMENT RECYCLING TECHNICIAN [address] [place] [address] [facility] [address] [place] [address] Status Reason Specialty Diagnoses / Procedures Referre d By Contact Referred To Contact Closed Vascular Lab Diagnoses Other specified peripheral vascular diseases Procedures HC EXTRACRANIAL BILAT STUDY [id number] US CAROTIDS Lisa Maya, CIRCULAR DISTRIBUTOR - WASTE MANAGEMENT RECYCLING TECHNICIAN [address] [place] [address] [facility] Vascular [facility] [address] [id number] Status Reason Specialty Diagnoses / Procedures Referred By Contact Referred To Contact Closed Stress Lab Diagnoses Atherosclerotic heart disease of [place] coronary artery without angina pectoris Procedures HC NM LEXISCAN STRESS W NUC HC NM SEST. REST STRESS MULT [id number] NM STRESS Lisa Maya, CIRCULAR DISTRIBUTOR - WASTE MANAGEMENT RECYCLING TECHNICIAN [address] [place] [address] [facility] [address] [id number] Reason Comments Wrist Pain Right, onset last [...] pain, unspecified type Kendell Alvarado MD [address] [facility] [place] [address] [facility] [address] [place] [address] Referral ID Status Reason Start Date Expiration Date Visits Re quested Visits Authorized [id number] 1 1 Reason Comments Pain New Patient Specialty Diagnoses / Procedures Referred By Mattac t Referred To Contact Diagnoses Osteoarthritis of left sacroiliac joint Procedures US IMAGING FOR ORTHO Jennie Hernandez MD [address] [place] [address] [place] [address] Referral ID Status Reason Start Date Expiration Date V isits Requested Visits Authorized [id number] New Request 04/18/2023 05/12/2024 1 1 Reason Comments Pain Joint Injection Reason Comments Pain Follow-up Reason Comments Pain Specialty Diagnoses / Procedures Referred By Contac t Referred To Contact Diagnoses Osteoarthritis of both sacroiliac joints Pain of both sacroiliac joints Procedures US IMAGING FOR ORTHO Jennie Hernandez MD [address] [place] [address] [place] [address] Referral ID Status Reason Start Date Expiration Date V isits Requested Visits Authorized [id number] New Request 07/16/2023 08/09/2024 1 1 Reason Comments Pain Right Sacroiliac laurent nt Follow-up Right Sacroiliac laurent nt Joint Injection Right Sacroiliac laurent nt Reason Comments New Patient bilateral lower limb polyneuropathy Specialty Diagnoses / Procedures Referred By Contac t Referred To Contact Neurology Diagnoses Polyneuropathy Jennie Hernandez MD [address] [facility] [address] Casey Mohr MD [address] [place] [address] Referral ID Status Reason Start Date Expiration Date Visits Re quested Visits Authorized [id number] Closed 06/10/2023 07/04/2024 1 1 Specialty Diagnoses / Procedures Referred By Contac t Referred To Contact Diagnoses Sacroiliitis Sacroiliitis [M46.1] Procedures MO ARTHRODESIS SACROILIAC JOINT PERCUTANEOUS CHG FLUOROSCOPY UP TO 1 HOUR PHYSICIAN/QHP TIME MO IMPLANT/INSERT DEVICE, NOC PROSTHETIC IMPLANT NOS ARTHRODESIS SACROILIAC JOINT MINIMALLY INVASIVE W/ TRANSFIXING DEVICE FLUOROSCOPY IN OR Shaheen Chappell MD [address] [address] Referral ID Status Reason Start Date Expiration Date Visits Re quested Visits Authorized [id number] 09/11/2023 1 1 Reason Comments Influenza Symptoms [...] Order 09/16/2023 09/17/2023 09/18/2023 BUPivacaine-EPINEPHrine (MARCAINE;SENSORCAINE-MPF) 0.5% -[id number] injection (CANCELED) NEEDED, Starting on Debbie 09/18/23 at 1144, Until Debbie 09/18/23 at 1228, Intra-op/Intra-Proc 1144 (Given - Provid er: Shaheen Chappell MD) ceFAZolin (ANCEF) 2 g in dextrose 100 mL premix IVPB (COMPLETED) 2 g, Intravenous, Administer over 30 Minutes, MAINTENANCE MACHINIST TO PROCEDURE, 1 dose, Starting on Debbie [...] at 0600 0558 (Given - Provid er: lEidia Grigsby RN) ketorolac (TORADOL) injection 30 mg [...] 607 (Given - Provid er: Giulia Stein RCP)06 (Given - Provider: Giulia Stein RCP) Linked [...] Care Teams (unrecognized sec tion and content) Block Mason Relationship Specialty Start Date End Date Romario Man MD [address] [place] [address] PCP - General Family Medicine 06/14/19 Block Mason Relationship Specialty Start Date End Date Romario Man MD [address] [place] [address] PCP - General Family Medicine 06/14/19 Block Mason Relationship Specialty Start Date End Date Romario Man MD [address] [place] [phone] PCP - General Family Medicine 04/18/23 Block Mason Relationship Specialty Start Date End Date Romario Man MD [address] [place] [address] PCP - General Family Medicine 04/18/23 Block Mason Relationship Specialty Start Date End Date Romario Man MD [address] [place] [address] PCP - General Family Medicine 04/18/23 Block Mason Relationship Specialty Start Date End Date Romario Man MD [address] [place] [address] PCP - General Family Medicine 04/18/23 Block Mason Relationship Specialty Start Date End Date Romario Man MD [address] [place] [address] PCP - General Family Medicine 04/18/23 Block Mason Relationship Specialty Start Date End Date Romario Man MD [address] [place] [address] PCP - General Family Medicine 04/18/23 Block Mason Relationship Specialty Start Date End Date Romario Man MD [address] [place] [phone] PCP - General Family Medicine 04/18/23 Block Mason Relationship Specialty Start Date End Date Romario Man MD [address] [place] [phone] PCP - General Family [facility] 04/18/23 Block Mason Relationship Specialty Start Date End Date Romario Man MD [address] [place] [address] PCP - General Family Medicine 06/14/19 Block Mason Relationship Specialty Start Date End Date Romario Man MD [address] [place] [phone] PCP - [facility] Family [facility] 04/18/23 FOR RECORDS PERTAINING TO PATIENTS WHO [...] BE BASED ON THE PRIMARY CLINICAL RECORDS. [facility] [employer] [facility]. provides no warranty or guarantee of the accuracy or completeness of information in this document.
[2024-08-23 09:51] VITALS: BP 149/98; PULSE 55; TEMP 36.3; O2SAT 97
[2024-08-23] MEDS: BUPIVACAINE HCL 0.25% PF 25 MG/10 ML VIAL 4 ML INJ (10:41)
[2024-08-23] MEDS: TRIAMCINOLONE ACETONIDE 40 MG/ML VIAL 80 MG INJ (10:41)
[2024-08-23 10:42] VITALS: BP 163/85; PULSE 46; O2SAT 95
[2024-08-23 10:43] VITALS: BP 152/99; PULSE 54; O2SAT 96
[2024-08-23] MEDS: LIDOCAINE HCL 2% 400 MG/20 ML MDV 16 ML INJ (10:45)
--- NOTE | 2024-08-23 10:52 | P.ON_ITS ---
Date of procedure: 08/23/24 Pre-op diagnosis: Pain due to lumbar spondylosis without myelopathy Post-op diagnosis: same as pre-op Procedure: Procedure: Bilateral L4-5, L5-S1 radiofrequency ablation Medications: Bupivacaine 0.25% 6cc, lidocaine 2% 6cc, kenalog 80mg The patient was seen and examined in the preoperative holding area.? The site was marked.? Written informed consent was obtained and placed on the chart.? The patient was brought to the medical procedure unit and placed in the prone position.? A timeout was completed verifying correct patient, procedure, positioning, and special requirements.? The skin overlying the target points, the designated medial branch, were prepped and draped in the usual sterile fashion.? The target point was achieved with a 20-gauge 15 cm with a 10 mm curved active tip radiofrequency cannula under direct fluoroscopic visualization.? The needle was inserted at level L4 on the right side. Needle tip position was confirmed with lateral fluoroscopic position.? Motor stimulation was carried out at 2 Hz up to 5 volts with the absence of extremity activity.? This was repeated at level L5, S1 on right side.?? Sensory stimulation was carried out.? Concordant pain was realized at the above- mentioned sites.? Then radiofrequency lesioning was carried out times 90 seconds at 80 degrees times 2 lesions at each level.? The radiofrequency probe was removed prior to cannula removal.? The above-mentioned injectate was placed in 1 mL increments.? The needle was removed. The same procedure, with the same steps, was then completed on the left side at the same levels. Insertion sites were covered.? The patient was taken to the postoperative recovery area and monitored for an appropriate length of time before being found suitable for discharge in the company of a responsible adult. Anesthesia: Local Surgeon: Mo Gongora Pathology: none sent Condition: stable Disposition: no change
== END 2024-08-23 10:55 | disposition home or self-care (01) ==
LOC: SURGOUT 08:51
PROVIDERS: PCP Nurse Practitioner Family; Visit Provider Anesthesiology
DX: M47.816 Spondylosis without myelopathy or radiculopathy, lumbar region (principal)
CPT/HCPCS: 64635; 64636; J0665; J3301

== ENCOUNTER 2024-09-06 13:46 | Outpatient (OUT) | payer OTHER, SELFPAY ==
--- NOTE | 2024-09-06 13:53 | XR_ITS ---
The [address] [address] Patient Name: AJ MORA MRN: [id number] date: 1960 Sex: M Assigned Patient Location: [facility] Current Patient Location: Accession/Order Number: [id number] Exam Date: 09/06/2024 14:22 Report Date: 09/07/2024 06:55 At the request of: NON-STAFF PHYSICIAN Procedure: XR thoracic spine 3V EXAMINATION: XR thoracic spine 3V HISTORY: thoracic spine pain COMPARISON: No relevant comparison available. FINDINGS: BONES: No significant spondylosis, scoliosis, fracture, or visible bony lesion. DISC SPACES: Multilevel mild disc space narrowing and degenerative endplate osteophytes. PARASPINOUS: Negative. No paraspinous abnormality is seen. OTHER: Negative. XR/XR thoracic spine 3V IMPRESSION: 1. Multilevel mild-moderate degenerative changes of thoracic spine. 2. No acute abnormality or significant scoliosis. Electronically authenticated by: PEDRO PABLO CHAMBERS Date: 09/07/2024 06:55
--- NOTE | 2024-09-06 13:53 | XR_ITS ---
The [address] [address] Patient Name: AJ MORA MRN: [id number] date: 1960 Sex: M Assigned Patient Location: [facility] Current Patient Location: [facility] Accession/Order Number: [id number] Exam Date: 09/06/2024 14:22 Report Date: 09/07/2024 06:56 At the request of: NON-STAFF PHYSICIAN Procedure: XR cervical spine w flex/ext EXAMINATION: XR cervical spine w flex/ext HISTORY: neck pain COMPARISON: No relevant comparison available. FINDINGS: BONES: Multilevel moderate degenerative facet arthropathy. Minimal grade 1 retrolisthesis of C3 on 4. Multilevel degenerative endplate changes. DISC SPACES: Moderate-marked narrowing C3-C4, C4-C5, C5-C6, C6-C7. Multilevel degenerative endplate osteophytes. PARASPINOUS: Negative. No paraspinous abnormality is seen. OTHER: Negative. XR/XR cervical spine w flex/ext IMPRESSION: 1. Marked degenerative changes of cervical spine. Electronically authenticated by: PEDRO PABLO CHAMBERS Date: 09/07/2024 06:56
== END 2024-09-06 13:47 | disposition home or self-care (01) ==
LOC: RAD 13:48
PROVIDERS: PCP Nurse Practitioner Family
DX: M54.2 Cervicalgia (principal); M54.6 Pain in thoracic spine
CPT/HCPCS: 72052; 72072

== ENCOUNTER 2024-09-22 14:48 | Outpatient (OUT) | payer OTHER, SELFPAY ==
--- NOTE | 2024-09-22 15:17 | P.CN_ITS ---
Consult Note: HPI Data of Consult Patient: known to practice within the last 3 years Requesting Physician: Isabelle Maria NP Primary Care Provider: KIARA KIRBY Consult Narrative Reason for consult: f/u Narrative: Noel Alva a pleasant 63 year old male presents for evaluation of chronic bilateral shoulders, hand, knee, and low back pain. Today patient rating pain 3/10, increasing to 8/10 with activity and depending on the weather due to OA, generalized and in bilateral shoulders and low back hip buttock pain. JOSE EDUARDO 46% today. Patient has returned to work and has noticed increase in pain and decline in functional ability. Unfortunately suprascapular/axillary RFAs denied by insurance. Patient has established care with Carola Kirby CARPENTRY INSTRUCTOR-CIVIL DRAFTER. Pt following with Dr Mohr Neurology at [facility] for chronic neuropathy and pain as well as Dr Misti RODRIGUEZ for severe cervical stenosis. continues to utilize tizanidine 4mg HS and mobic 15mg daily, as well as pregabalin 100mg BID. recently underwent bilateral L4-5 L5-S1 facet medial branch RFA with >50% improvement in low back pain. cardiology has asked that we decrease pregabalin due to prolonged t-waves. cc:: CC: Isabelle Maria NP Review of Systems ROS Status of ROS 10 or more systems reviewed and unremark able except as noted in history and below Musculoskeletal Reports: back pain PFSH PFSH Medical History (Updated 05/28/24 @ 10:20 by Remedios Carlin MD) HLD (hyperlipidemia) ?E78.5 - Hyperlipidemia, unspecified (ICD-10) CAD (coronary artery disease) ?I25.10 - Atherosclerotic heart disease of [place] coronary artery without angina pectoris (ICD-10) Bilateral shoulder pain ?M25.511 - Pain in right shoulder (ICD-10) ?M25.512 - Pain in left shoulder (ICD-10) Aortic atherosclerosis ?I70.0 - Atherosclerosis of aorta (ICD-10) Hypertension ?I10 - Essential (primary) hypertension (ICD-10) Numbness and tingling ?R20.0 - Anesthesia of skin (ICD-10) ?R20.2 - Paresthesia of skin (ICD-10) Back pain ?M54.9 - Dorsalgia, unspecified (ICD-10) Neck pain ?M54.2 - Cervicalgia (ICD-10) Anemia ?D64.9 - Anemia, unspecified (ICD-10) Asthma ?J45.909 - Unspecified asthma, uncomplicated (ICD-10) Surgical History H/O heart artery stent ?Z95.5 - Presence of coronary angioplasty implant and graft (ICD-10) H/O laminectomy ?Z98.890 - Other specified postprocedural states (ICD-10) Family History Father Family history of CHF (congestive heart failure) Family history of myocardial infarction Mother Family history of CHF (congestive heart failure) Social History Within the past year, how often did you have a drink containing alcohol: 4 or more times a week Within the past year, how many standard drinks containing alcohol did you have on a typical day: 1 or 2 Within the past year, how often did you have six or more drinks on one occasion: never Total score: 0 Score interpretation: Questions 2 and 3 are 0. It can be assumed that the patient's drinking is below the recommended limits. However, please confirm the accuracy of the patient's alcohol intake over the last few months. 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 Highest level of school completed/degree received: high school graduate In a typical week, how many times do you talk on the telephone with family, friends, or neighbors: 3 or more times per week How often do you get together with friends or relatives: 3 or more times per week How often do you attend quaker or sikhism services: never Do you belong to any clubs or organizations such as quaker groups unions, fraternal or athletic groups, or school groups: no Little interest or pleasure in doing things: not at all Feeling down, depressed, or hopeless: not at all Feel stressed/tense/nervous/anxious/difficulty sleeping: not at all Gender Identity: male Meds Home Medications and Allergies Home Medications ?Medication ?Instructions ?Recorded ?Confirmed ?Type albuterol sulfate 90 mcg/actuation 1 inh inhalation Q6H 03/14/23 08/23/24 History aerosol inhaler (ProAir HFA) aspirin 81 mg tablet,delayed 81 mg PO DAILY 03/14/23 08/23/24 History release atorvastatin 40 mg tablet 40 mg PO DAILY 03/14/23 08/23/24 History cholecalciferol (vitamin D3) 50 50 mcg PO DAILY 03/14/23 08/23/24 History mcg (2,000 unit) capsule ferrous sulfate 325 mg (65 mg 325 mg PO BID 03/14/23 08/23/24 History iron) tablet (Niels-Time) lisinopril 40 mg tablet 40 mg PO DAILY 03/14/23 08/23/24 History meloxicam 15 mg tablet 15 mg PO DAILY 03/14/23 08/23/24 History nitroglycerin 0.4 mg sublingual 0.4 mg sublingual Q5M PRN chest 03/14/23 08/23/24 History tablet (Nitrostat) pain pantoprazole 40 mg tablet,delayed 40 mg PO DAILY 03/14/23 08/23/24 History release (Protonix) pregabalin 100 mg capsule (Lyrica) 100 mg PO BID 03/14/23 08/23/24 History ezetimibe 10 mg tablet 10 mg PO DAILY 05/24/24 08/23/24 History hydrochlorothiazide 25 mg tablet 25 mg PO DAILY #30 tabs 05/24/24 08/23/24 Rx isosorbide mononitrate 60 mg 60 mg PO DAILY 05/24/24 08/23/24 History tablet,extended release 24 hr metoprolol succinate 100 mg 100 mg PO DAILY 05/24/24 08/23/24 History tablet,extended release 24 hr (Toprol XL) oxycodone-acetaminophen 5 mg-325 1 tab PO TID PRN pain #90 tabs 06/17/24 08/23/24 Rx mg tablet (Percocet) naloxone 4 mg/actuation nasal 4 mg intranasal Q2M PRN opioid 07/14/24 08/23/24 Rx spray (Narcan) overdose #2 ea oxycodone-acetaminophen 5 mg-325 1 tab PO TID PRN pain #90 tabs 09/15/24 Rx mg tablet (Percocet) Allergies Allergy/AdvReac Type Severity Reaction Status Date / Time No Known Drug Allergies Allergy Verified 08/23/24 09:51 Exam Constitutional Documenting provider has reviewed patient's vital signs: yes Common normals: no apparent distress, oriented x3, healthy appearing, alert and well nourished General appearance: cooperative HENMT Common normals: normocephalic, hearing grossly normal bilaterally and moist oral mucous membranes Head and scalp: normocephalic Eye Common normals: PERRL Pupil: PERRL Neck & C-Spine Common normals: full ROM General: normal visual inspection Chest Common normals: inspection of chest normal Respiratory Common normals: normal respiratory effort, no retractions and no use of accessory muscles Back & Pelvis Lumbar spine/lower back: ROM limited, pain with ROM and straight leg raise negative bilaterally Sacroiliac joints: SI joints normal Other: mildly positive facet loading bilaterally sensation intact BLE strength 5/5 in BLE Extremity Common normals: normal to inspection and full ROM Right upper extremity: shoulder joint Left upper extremity: shoulder joint Other: bilateral shoulder ROM limited, increased pain with ROM, positive empty can kendra t, positive posterior-lift off, positive cross body adduction. increased pain with palpation of bilateral suprascapular/axillary nerves, reports sharp shooting pain with overhead motions. strength 5/5 in BUE, sensation intact Neuro Common normals: oriented x3, CN's II-XII intact bilaterally, moves all extremities, no focal motor deficits, no sensory deficits noted and deep tendon reflexes 2+ bilaterally Sensorium/orientation: alert Motor exam: strength 5/5 throughout and no movement abnormalities noted Psych Common normals: mental status grossly normal, thought process normal, cooperative, affect normal, speech normal and activity/motor behavior normal Speech: normal speech Thought process: normal thought process Results Additional Findings Additional findings: If on a controlled substance or opioids, I have checked an [place] report on this patient and there are no aberrancies noted in the prescribing history.??If on a controlled substance or opioid a drug screen was completed and reviewed within the last year, and if there has not been a drug screen completed we ordered one today to monitor higher risk, state monitored pain medication use. As part of providing excellent, safe, comprehensive care, the following was completed at our patient's visit: 1. A medication reconciliation and review to ensure accurate knowledge of current/active medications, including asking our patients to inform us about any [id number] medications or herbal remedies/nutritional supplements/alternative remedies. 2. A review to specifically ensure our patients have had annual screening for screening for depression, screening for tobacco use, and screening for unhealthy alcohol use. For concerning screenings had a discussion with the patient, provided patient education, and recommended follow-up with primary care provider when appropriate. If patient noted with a risk of falling, they received education on strength, gait, and balance training to prevent future risk of falling. Assessment and Plan Assessment and Plan (1) Lumbar spondylosis: (2) Lumbar stenosis with neurogenic claudication: (3) halfway (current) use of opiate analgesic: (4) Myofascial pain: (5) Osteoarthritis: (6) Polyneuropathy: Plan decrease pregabalin 50mg TID, risks vs benefits reviewed continue HEP as tolerated continue f/u with cardiology, neurology, NS and PCP f/u 3 months, sooner if needed
== END 2024-09-22 14:49 | disposition home or self-care (01) ==
LOC: PM 14:48
PROVIDERS: PCP Nurse Practitioner Family; Visit Provider Nurse Practitioner
DX: M47.816 Spondylosis without myelopathy or radiculopathy, lumbar region (principal); M48.062 Spinal stenosis, lumbar region with neurogenic claudication; Z79.891 Long term (current) use of opiate analgesic; M79.18 Myalgia, other site; M19.90 Unspecified osteoarthritis, unspecified site; G62.9 Polyneuropathy, unspecified
CPT/HCPCS: G0463

== ENCOUNTER 2024-11-04 13:00 | Outpatient (OUT) | payer OTHER, SELFPAY ==
--- NOTE | 2024-11-04 13:08 | XR_ITS ---
The [address] [address] Patient Name: AJ MORA MRN: [id number] date: 1960 Sex: M Assigned Patient Location: [facility] Current Patient Location: [facility] Accession/Order Number: [id number] Exam Date: 11/04/2024 13:30 Report Date: 11/04/2024 14:07 At the request of: NON-STAFF PHYSICIAN Procedure: XR thoracic spine 3V EXAMINATION: XR cervical spine w flex/ext, XR thoracic spine 3V HISTORY: Neck Pain COMPARISON: XR cervical spine 09/06/2024 FINDINGS: BONES: Mechanical fusion of C3-T1 via bilateral pedicle screws and rods; no appreciable hardware fracture loosening. Posterior decompression at these levels. No appreciable anterior or retrolisthesis. Increased density of the trabecula involving C3, C4, C5, C6 with minimal loss of height of C5 and possibly C6. DISC SPACES: Moderate-marked disc space narrowing C3-4 through C5-6. Scattered levels of mild-moderate disc space narrowing of the thoracic spine. PARASPINOUS: Small to moderate amount of free air within soft tissues posterior to the cervical spine. OTHER: Negative. XR/XR thoracic spine 3V IMPRESSION: 1. Posterior mechanical fusion of the cervical spine without appreciable hardware fracture. 2. Free air within soft tissues posterior to the cervical spine; recent surgery? 3. Multilevel moderate-marked degenerative disc disease of cervical spine and mild-moderate degenerative disc disease of thoracic spine. Electronically authenticated by: PEDRO PABLO CHAMBERS Date: 11/04/2024 14:07
--- NOTE | 2024-11-04 13:08 | XR_ITS ---
The [address] [address] Patient Name: AJ MORA MRN: [id number] date: 1960 Sex: M Assigned Patient Location: [facility] Current Patient Location: [facility] Accession/Order Number: [id number] Exam Date: 11/04/2024 13:30 Report Date: 11/04/2024 14:07 At the request of: NON-STAFF PHYSICIAN Procedure: XR cervical spine w flex/ext EXAMINATION: XR cervical spine w flex/ext, XR thoracic spine 3V HISTORY: Neck Pain COMPARISON: XR cervical spine 09/06/2024 FINDINGS: BONES: Mechanical fusion of C3-T1 via bilateral pedicle screws and rods; no appreciable hardware fracture loosening. Posterior decompression at these levels. No appreciable anterior or retrolisthesis. Increased density of the trabecula involving C3, C4, C5, C6 with minimal loss of height of C5 and possibly C6. DISC SPACES: Moderate-marked disc space narrowing C3-4 through C5-6. Scattered levels of mild-moderate disc space narrowing of the thoracic spine. PARASPINOUS: Small to moderate amount of free air within soft tissues posterior to the cervical spine. OTHER: Negative. XR/XR cervical spine w flex/ext IMPRESSION: 1. Posterior mechanical fusion of the cervical spine without appreciable hardware fracture. 2. Free air within soft tissues posterior to the cervical spine; recent surgery? 3. Multilevel moderate-marked degenerative disc disease of cervical spine and mild-moderate degenerative disc disease of thoracic spine. Electronically authenticated by: PEDRO PABLO CHAMBERS Date: 11/04/2024 14:07
== END 2024-11-04 13:01 | disposition home or self-care (01) ==
LOC: RAD 13:01
PROVIDERS: PCP Nurse Practitioner Family
DX: M54.2 Cervicalgia (principal); M54.6 Pain in thoracic spine; M43.22 Fusion of spine, cervical region
CPT/HCPCS: 72052; 72072

== ENCOUNTER 2024-12-09 10:19 | Outpatient (OUT) | payer OTHER, SELFPAY ==
--- NOTE | 2024-12-09 10:33 | XR_ITS ---
The [address] [address] Patient Name: AJ MORA MRN: [id number] date: 1960 Sex: M Assigned Patient Location: [facility] Current Patient Location: [facility] Accession/Order Number: [id number] Exam Date: 12/09/2024 22:53 Report Date: 12/09/2024 22:55 At the request of: CARLITO AMEZCUA MD Procedure: XR cervical spine 2-3V CERVICAL SPINE 4 views: CLINICAL HISTORY: Postop imaging. COMPARISON: Cervical spine series 11/04/2024. FINDINGS: Posterior hardware fixation C3-T1 without evidence of hardware complication. Vertebral body heights appear maintained. No prevertebral soft tissue swelling. XR/XR cervical spine 2-3V IMPRESSION: NO HARDWARE COMPLICATION. Impression dictated by: Jaskaran Black Jr., D.O.12/09/2024 10:55 PM Dictation Location: [place] [address] Electronically authenticated by: [id number] Date: 12/09/2024 22:55
== END 2024-12-09 10:20 | disposition home or self-care (01) ==
LOC: RAD 10:21
PROVIDERS: PCP Nurse Practitioner Family; Visit Provider Neurological Surgery
DX: M43.12 Spondylolisthesis, cervical region (principal)
CPT/HCPCS: 72040

== ENCOUNTER 2024-12-16 13:46 | Outpatient (OUT) | payer OTHER, SELFPAY ==
--- NOTE | 2024-12-16 14:19 | PM.CN ---
Consult Note: HPI Data of Consult Patient: known to practice within the last 3 years Requesting Physician: Isabelle Maria NP Primary Care Provider: KIARA KELLY Consult Narrative Reason for consult: f/u Narrative: Noel Alva a 64 year old male presents for evaluation of chronic neck and back pain. Since last visit pt underwent cervical fusion with Dr Chappell with post op infection and additional surgery, now has a wound vac and C-collar in place. Pain today 4/10 in neck, 1/10 in low back pain. Currently utilizing percocet 5-325mg TID PRN moderate to severe pain, mobic 15mg daily as needed, lyrica 100mg BID, and tizanidine 4mg BID PRN pain/spasms without side effects. pt reporting mild to moderate improvement with current medication regimen. Has HHC and continues to f/u with NS. cc:: CC: Isabelle Maria NP Review of Systems ROS Status of ROS 10 or more systems reviewed and unremarkable except as noted in history and below Musculoskeletal Reports: back pain and neck pain PFSH PFSH Medical History (Updated 12/16/24 @ 14:26 by Isabelle Maria NP) HLD (hyperlipidemia) ?E78.5 - Hyperlipidemia, unspecified (ICD-10) CAD (coronary artery disease) ?I25.10 - Atherosclerotic heart disease of [place] coronary artery without angina pectoris (ICD-10) Bilateral shoulder pain ?M25.511 - Pain in right shoulder (ICD-10) ?M25.512 - Pain in left shoulder (ICD-10) Aortic atherosclerosis ?I70.0 - Atherosclerosis of aorta (ICD-10) Hypertension ?I10 - Essential (primary) hypertension (ICD-10) Numbness and tingling ?R20.0 - Anesthesia of skin (ICD-10) ?R20.2 - Paresthesia of skin (ICD-10) Back pain ?M54.9 - Dorsalgia, unspecified (ICD-10) Neck pain ?M54.2 - Cervicalgia (ICD-10) Anemia ?D64.9 - Anemia, unspecified (ICD-10) Asthma ?J45.909 - Unspecified asthma, uncomplicated (ICD-10) Surgical History H/O heart artery stent ?Z95.5 - Presence of coronary angioplasty implant and graft (ICD-10) H/O laminectomy ?Z98.890 - Other specified postprocedural states (ICD-10) Family History Father Family history of CHF (congestive heart failure) Family history of myocardial infarction Mother Family history of CHF (congestive heart failure) Social History Within the past year, how often did you have a drink containing alcohol: 4 or more times a week Within the past year, how many standard drinks containing alcohol did you have on a typical day: 1 or 2 Within the past year, how often did you have six or more drinks on one occasion: never Total score: 0 Score interpretation: Questions 2 and 3 are 0. It can be assumed that the patient's drinking is below the recommended limits. However, please confirm the accuracy of the patient's alcohol intake over the last few months. 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 Highest level of school completed/degree received: high school graduate In a typical week, how many times do you talk on the telephone with family, friends, or neighbors: 3 or more times per week How often do you get together with friends or relatives: 3 or more times per week How often do you attend taoism or orthodoxy services: never Do you belong to any clubs or organizations such as taoism groups unions, fraternal or athletic groups, or school groups: no Little interest or pleasure in doing things: not at all Feeling down, depressed, or hopeless: not at all Feel stressed/tense/nervous/anxious/difficulty sleeping: not at all Gender Identity: male Meds Home Medications and Allergies Home Medications ?Medication ?Instructions ?Recorded ?Confirmed ?Type albuterol sulfate 90 mcg/actuation 1 inh inhalation Q6H 03/14/23 08/23/24 History aerosol inhaler (ProAir HFA) aspirin 81 mg tablet,delayed 81 mg PO DAILY 03/14/23 08/23/24 History release atorvastatin 40 mg tablet 40 mg PO DAILY 03/14/23 08/23/24 History cholecalciferol (vitamin D3) 50 50 mcg PO DAILY 03/14/23 08/23/24 History mcg (2,000 unit) capsule ferrous sulfate 325 mg (65 mg 325 mg PO BID 03/14/23 08/23/24 History iron) tablet (Niels-Time) lisinopril 40 mg tablet 40 mg PO DAILY 03/14/23 08/23/24 History meloxicam 15 mg tablet 15 mg PO DAILY 03/14/23 08/23/24 History nitroglycerin 0.4 mg sublingual 0.4 mg sublingual Q5M PRN chest 03/14/23 08/23/24 History tablet (Nitrostat) pain pantoprazole 40 mg tablet,delayed 40 mg PO DAILY 03/14/23 08/23/24 History release (Protonix) pregabalin 100 mg capsule (Lyrica) 100 mg PO BID 03/14/23 08/23/24 History ezetimibe 10 mg tablet 10 mg PO DAILY 05/24/24 08/23/24 History hydrochlorothiazide 25 mg tablet 25 mg PO DAILY #30 tabs 05/24/24 08/23/24 Rx isosorbide mononitrate 60 mg 60 mg PO DAILY 05/24/24 08/23/24 History tablet,extended release 24 hr metoprolol succinate 100 mg 100 mg PO DAILY 05/24/24 08/23/24 History tablet,extended release 24 hr (Toprol XL) oxycodone-acetaminophen 5 mg-325 1 tab PO TID PRN pain #90 tabs 06/17/24 08/23/24 Rx mg tablet (Percocet) naloxone 4 mg/actuation nasal 4 mg intranasal Q2M PRN opioid 07/14/24 08/23/24 Rx spray (Narcan) overdose #2 ea oxycodone-acetaminophen 5 mg-325 1 tab PO TID PRN pain #90 tabs 09/15/24 Rx mg tablet (Percocet) pregabalin 50 mg capsule (Lyrica) 50 mg PO TID #90 caps 09/22/24 Rx oxycodone-acetaminophen 5 mg-325 1 tab PO TID PRN pain #90 tabs 10/25/24 Rx mg tablet (Percocet) oxycodone-acetaminophen 5 mg-325 1 tab PO TID PRN pain #90 tabs 11/23/24 Rx mg tablet (Percocet) Allergies Allergy/AdvReac Type Severity Reaction Status Date / Time No Known Drug Allergies Allergy Verified 08/23/24 09:51 Exam Constitutional Documenting provider has reviewed patient's vital signs: yes Common normals: no apparent distress, oriented x3, healthy appearing, alert and well nourished General appearance: cooperative HENMT Common normals: normocephalic, hearing grossly normal bilaterally and moist oral mucous membranes Head and scalp: normocephalic Eye Common normals: PERRL Pupil: PERRL Neck & C-Spine Other: c-collar, wound vac in place strength 4/5 in BUE Chest Common normals: inspection of chest normal Respiratory Common normals: normal respiratory effort, no retractions and no use of accessory muscles Back & Pelvis Thoracic spine/upper back: ROM limited and pain with ROM; no thoracic spinal tenderness and no paraspinal muscle tenderness Lumbar spine/lower back: straight leg raise negative bilaterally Neuro Common normals: oriented x3, CN's II-XII intact bilaterally, moves all extremities, no focal motor deficits, no sensory deficits noted and deep tendon reflexes 2+ bilaterally Sensorium/orientation: alert Motor exam: no movement abnormalities noted Psych Common normals: mental status grossly normal, thought process normal, cooperative, affect normal, speech normal and activity/motor behavior normal Speech: normal speech Thought process: normal thought process Results Additional Findings Additional findings: If on a controlled substance or opioids, I have checked an OARRS report on this patient and there are no aberrancies noted in the prescribing history.??If on a controlled substance or opioid a drug screen was completed and reviewed within the last year, and if there has not been a drug screen completed we ordered one today to monitor higher risk, state monitored pain medication use. As part of providing excellent, safe, comprehensive care, the following was completed at our patient's visit: 1. A medication reconciliation and review to ensure accurate knowledge of current/active medications, including asking our patients to inform us about any [id number]-[id number] medications or herbal remedies/nutritional supplements/alternative remedies. 2. A review to specifically ensure our patients have had annual screening for screening for depression, screening for tobacco use, and screening for unhealthy alcohol use. For concerning screenings had a discussion with the patient, provided patient education, and recommended follow-up with primary care provider when appropriate. If patient noted with a risk of falling, they received education on strength, gait, and balance training to prevent future risk of falling. Portions of this note may have been carried over from the previous visit and updated as appropriate. Please note this office utilizes paper charting in addition to the electronic medical record. A list of current medications, vitals, and PMH is available there as the clinical staff outside of myself do not have access to [employer] charting during the clinic day operations. As part of providing quality comprehensive care the current medications, vitals, and PMH were reviewed in the paper chart. 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 The patient does not report intolerable side effects. The patient is NOT opioid naive and non-pharmacologic and non-opioid treatment has failed to significantly relieve the patient's pain and improve functionality. The patient has a diagnosis that is related to a somatic or visceral pain etiology. ? ?? I reviewed with the patient the potential risks and side effects with the use of? opioid medications including but not limited to respiratory depression,? sedation, and even . Within the last 12 months I have verified the patient has access to naloxone should? these effects occur. The patient was advised to let? their family know they had Naloxone in case they would need to administer? the medication. I advised the patient to avoid the use of any other? sedation substances including alcohol, THC, and benzodiazepines while? taking opioid medications due to the risk of compounding side effects and? detrimental outcomes. within the last 12 months I have reviewed the INSIDE OUTSIDE SALES REPRESENTATIVE, pain treatment agreement and urine drug screen.? ?? A drug screen was completed within the last year, and no aberrancies were noted regarding their use of controlled substances. The patient understands they are subject to the terms and conditions of the pain contract that they have signed. ? ?? I have checked an OARRS report on this patient today and there are no aberrancies noted in the prescribing history.? Plan continue f/u with NS continue current medications defer further treatment at this time f/u 2 months, sooner if needed
== END 2024-12-16 13:47 | disposition home or self-care (01) ==
PROVIDERS: PCP Nurse Practitioner Family; Visit Provider Nurse Practitioner
DX: M47.812 Spondylosis without myelopathy or radiculopathy, cervical region (principal); M48.062 Spinal stenosis, lumbar region with neurogenic claudication; M47.816 Spondylosis without myelopathy or radiculopathy, lumbar region; Z79.891 Long term (current) use of opiate analgesic
CPT/HCPCS: G0463

== ENCOUNTER 2025-02-17 13:44 | Outpatient (OUT) | payer OTHER, SELFPAY ==
--- NOTE | 2025-02-17 14:40 | PM.CN ---
Consult Note: HPI Data of Consult Patient: known to practice within the last 3 years Requesting Physician: Isabelle Maria NP Primary Care Provider: KIARA KELLY Consult Narrative Reason for consult: f/u Narrative: Noel Alva a 64 year old male presents for evaluation of chronic neck and back pain. Since last visit pt underwent cervical fusion with Dr Chappell with post op infection and additional surgery, now has a wound and C-collar in place. Pain today 4/10 in neck, 1/10 in low back pain. Currently utilizing percocet 5-325mg TID PRN moderate to severe pain, mobic 15mg daily as needed, lyrica 50mg TID, and tizanidine 4mg BID PRN pain/spasms without side effects. pt reporting mild to moderate improvement with current medication regimen. Has HHC and continues to f/u with NS and upcoming consult with NS cc:: CC: Isabelle Maria NP Review of Systems ROS Status of ROS 10 or more systems reviewed and unremarkable except as noted in history and below Musculoskeletal Reports: back pain and neck pain PFSH PFS Medical History (Updated 12/16/24 @ 14:26 by Isabelle Maria NP) HLD (hyperlipidemia) ?E78.5 - Hyperlipidemia, unspecified (ICD-10) CAD (coronary artery disease) ?I25.10 - Atherosclerotic heart disease of [place] coronary artery without angina pectoris (ICD-10) Bilateral shoulder pain ?M25.511 - Pain in right shoulder (ICD-10) ?M25.512 - Pain in left shoulder (ICD-10) Aortic atherosclerosis ?I70.0 - Atherosclerosis of aorta (ICD-10) Hypertension ?I10 - Essential (primary) hypertension (ICD-10) Numbness and tingling ?R20.0 - Anesthesia of skin (ICD-10) ?R20.2 - Paresthesia of skin (ICD-10) Back pain ?M54.9 - Dorsalgia, unspecified (ICD-10) Neck pain ?M54.2 - Cervicalgia (ICD-10) Anemia ?D64.9 - Anemia, unspecified (ICD-10) Asthma ?J45.909 - Unspecified asthma, uncomplicated (ICD-10) Surgical History H/O heart artery stent ?Z95.5 - Presence of coronary angioplasty implant and graft (ICD-10) H/O laminectomy ?Z98.890 - Other specified postprocedural states (ICD-10) Family History Father Family history of CHF (congestive heart failure) Family history of myocardial infarction Mother Family history of CHF (congestive heart failure) Social History Within the past year, how often did you have a drink containing alcohol: 4 or more times a week Within the past year, how many standard drinks containing alcohol did you have on a typical day: 1 or 2 Within the past year, how often did you have six or more drinks on one occasion: never Total score: 0 Score interpretation: Questions 2 and 3 are 0. It can be assumed that the patient's drinking is below the recommended limits. However, please confirm the accuracy of the patient's alcohol intake over the last few months. 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 Highest level of school completed/degree received: high school graduate In a typical week, how many times do you talk on the telephone with family, friends, or neighbors: 3 or more times per week How often do you get together with friends or relatives: 3 or more times per week How often do you attend christianity or worship services: never Do you belong to any clubs or organizations such as christianity groups unions, fraternal or athletic groups, or school groups: no Little interest or pleasure in doing things: not at all Feeling down, depressed, or hopeless: not at all Feel stressed/tense/nervous/anxious/difficulty sleeping: not at all Gender Identity: male Meds Home Medications and Allergies Home Medications ?Medication ?Instructions ?Recorded ?Confirmed ?Type albuterol sulfate 90 mcg/actuation 1 inh inhalation Q6H 03/14/23 08/23/24 History aerosol inhaler (ProAir HFA) aspirin 81 mg tablet,delayed 81 mg PO DAILY 03/14/23 08/23/24 History release atorvastatin 40 mg tablet 40 mg PO DAILY 03/14/23 08/23/24 History cholecalciferol (vitamin D3) 50 50 mcg PO DAILY 03/14/23 08/23/24 History mcg (2,000 unit) capsule ferrous sulfate 325 mg (65 mg 325 mg PO BID 03/14/23 08/23/24 History iron) tablet (Niels-Time) lisinopril 40 mg tablet 40 mg PO DAILY 03/14/23 08/23/24 History meloxicam 15 mg tablet 15 mg PO DAILY 03/14/23 08/23/24 History nitroglycerin 0.4 mg sublingual 0.4 mg sublingual Q5M PRN chest 03/14/23 08/23/24 History tablet (Nitrostat) pain pantoprazole 40 mg tablet,delayed 40 mg PO DAILY 03/14/23 08/23/24 History release (Protonix) pregabalin 100 mg capsule (Lyrica) 100 mg PO BID 03/14/23 08/23/24 History ezetimibe 10 mg tablet 10 mg PO DAILY 05/24/24 08/23/24 History hydrochlorothiazide 25 mg tablet 25 mg PO DAILY #30 tabs 05/24/24 08/23/24 Rx isosorbide mononitrate 60 mg 60 mg PO DAILY 05/24/24 08/23/24 History tablet,extended release 24 hr metoprolol succinate 100 mg 100 mg PO DAILY 05/24/24 08/23/24 History tablet,extended release 24 hr (Toprol XL) naloxone 4 mg/actuation nasal 4 mg intranasal Q2M PRN opioid 07/14/24 08/23/24 Rx spray (Narcan) overdose #2 ea pregabalin 50 mg capsule (Lyrica) 50 mg PO TID #90 caps 09/22/24 Rx meloxicam 15 mg tablet 15 mg PO DAILY #30 tabs 12/16/24 Rx pregabalin 50 mg capsule (Lyrica) 50 mg PO TID #90 caps 12/16/24 Rx oxycodone-acetaminophen 5 mg-325 1 tab PO TID PRN pain #90 tabs 12/28/24 Rx mg tablet (Percocet) oxycodone-acetaminophen 5 mg-325 1 tab PO TID PRN pain #90 tabs 01/26/25 Rx mg tablet (Percocet) Allergies Allergy/AdvReac Type Severity Reaction Status Date / Time No Known Drug Allergies Allergy Verified 08/23/24 09:51 Exam Constitutional Documenting provider has reviewed patient's vital signs: yes Common normals: no apparent distress, oriented x3, healthy appearing, alert and well nourished General appearance: cooperative HENMT Common normals: normocephalic, hearing grossly normal bilaterally and moist oral mucous membranes Head and scalp: normocephalic Eye Common normals: PERRL Pupil: PERRL Neck & C-Spine Other: c-collar in place strength 5/5 in BUE Chest Common normals: inspection of chest normal Respiratory Common normals: normal respiratory effort, no retractions and no use of accessory muscles Back & Pelvis Thoracic spine/upper back: ROM limited and pain with ROM; no thoracic spinal tenderness and no paraspinal muscle tenderness Lumbar spine/lower back: straight leg raise negative bilaterally Neuro Common normals: oriented x3, CN's II-XII intact bilaterally, moves all extremities, no focal motor deficits, no sensory deficits noted and deep tendon reflexes 2+ bilaterally Sensorium/orientation: alert Motor exam: no movement abnormalities noted Psych Common normals: mental status grossly normal, thought process normal, cooperative, affect normal, speech normal and activity/motor behavior normal Speech: normal speech Thought process: normal thought process Results Additional Findings Additional findings: If on a controlled substance or opioids, I have checked an OARRS report on this patient and there are no aberrancies noted in the prescribing history.??If on a controlled substance or opioid a drug screen was completed and reviewed within the last year, and if there has not been a drug screen completed we ordered one today to monitor higher risk, state monitored pain medication use. As part of providing excellent, safe, comprehensive care, the following was completed at our patient's visit: 1. A medication reconciliation and review to ensure accurate knowledge of current/active medications, including asking our patients to inform us about any [id number] medications or herbal remedies/nutritional supplements/alternative remedies. 2. A review to specifically ensure our patients have had annual screening for screening for depression, screening for tobacco use, and screening for unhealthy alcohol use. For concerning screenings had a discussion with the patient, provided patient education, and recommended follow-up with primary care provider when appropriate. If patient noted with a risk of falling, they received education on strength, gait, and balance training to prevent future risk of falling. Portions of this note may have been carried over from the previous visit and updated as appropriate. Please note this office utilizes paper charting in addition to the electronic medical record. A list of current medications, vitals, and PMH is available there as the clinical staff outside of myself do not have access to [employer] charting during the clinic day operations. As part of providing quality comprehensive care the current medications, vitals, and PMH were reviewed in the paper chart. 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 The patient does not report intolerable side effects. The patient is NOT opioid naive and non-pharmacologic and non-opioid treatment has failed to significantly relieve the patient's pain and improve functionality. The patient has a diagnosis that is related to a somatic or visceral pain etiology. ? ?? I reviewed with the patient the potential risks and side effects with the use of? opioid medications including but not limited to respiratory depression,? sedation, and even . Within the last 12 months I have verified the patient has access to naloxone should? these effects occur. The patient was advised to let? their family know they had Naloxone in case they would need to administer? the medication. I advised the patient to avoid the use of any other? sedation substances including alcohol, THC, and benzodiazepines while? taking opioid medications due to the risk of compounding side effects and? detrimental outcomes. within the last 12 months I have reviewed the CHAIN PERSON, pain treatment agreement and urine drug screen.? ?? A drug screen was completed within the last year, and no aberrancies were noted regarding their use of controlled substances. The patient understands they are subject to the terms and conditions of the pain contract that they have signed. ? ?? I have checked an OARRS report on this patient today and there are no aberrancies noted in the prescribing history.? Plan continue f/u with NS continue current medications defer further treatment at this time f/u 3 months, sooner if needed
== END 2025-02-17 13:45 | disposition home or self-care (01) ==
PROVIDERS: PCP Nurse Practitioner Family; Visit Provider Nurse Practitioner
DX: M47.812 Spondylosis without myelopathy or radiculopathy, cervical region (principal); M48.062 Spinal stenosis, lumbar region with neurogenic claudication; M47.816 Spondylosis without myelopathy or radiculopathy, lumbar region; Z79.891 Long term (current) use of opiate analgesic
CPT/HCPCS: G0463

== ENCOUNTER 2025-04-22 15:53 | Outpatient (OUT) | payer OTHER, SELFPAY ==
--- NOTE | 2025-04-22 16:06 | XR_ITS ---
The [address] [address] Patient Name: AJ MORA MRN: [id number] date: 1960 Sex: M Assigned Patient Location: [facility] Current Patient Location: [facility] Accession/Order Number: [id number] Exam Date: 04/22/2025 21:21 Report Date: 04/22/2025 21:26 At the request of: CARLITO AMEZCUA MD Procedure: XR cervical spine w flex/ext XR cervical spine w flex/ext 04/22/2025 4:30 PM SIGNS AND SYMPTOMS: Bilateral arm numbness and tingling with bilateral lower extremity numbness and tingling PROTOCOLS: Frontal, lateral, oblique, and flexion-extension views of the cervical spine COMPARISON: 725 FINDINGS: The bones are in anatomic alignment. There is preservation of the vertebral body heights. There is posterior fusion from C3 through T1. There is no hardware complication or malalignment. There is moderate to severe disc height loss at C3-C4, C4-C5, and C5-C6. There is accompanying anterior osteophyte formation. Flexion and extension view show no pathologic movement. There is no fracture or destructive lesion. XR/XR cervical spine w flex/ext IMPRESSION: There is posterior fusion from C3 through T1. There is no hardware complication or malalignment. No fracture, subluxation, or pathologic movement. Degenerative changes are noted throughout cervical spine. This is unchanged. Impression dictated by: Rayshawn Hartley M.D. 04/22/2025 9:26 PM Dictation Location: [place] [address] Electronically authenticated by: [id number] Y Date: 04/22/2025 21:26
== END 2025-04-22 15:54 | disposition home or self-care (01) ==
PROVIDERS: PCP Nurse Practitioner Family; Visit Provider Neurological Surgery
DX: M43.12 Spondylolisthesis, cervical region (principal); M43.23 Fusion of spine, cervicothoracic region
CPT/HCPCS: 72052